=== PATIENT | female | born 1950 | race Caucasian/White ===

== ENCOUNTER 2017-08-17 14:00 | Outpatient (RCR) | payer MEDICARE, SELFPAY ==
[2017-08-10 13:46] LABS: Absolute Lymphocyte Count 1.82 X10^3/ul (0.83-4.51); Absolute Neutrophil Count 4.8 X10^3/uL (2.0-7.7); Basophil# 0.04 X10^3/uL; Basophil% 0.5 % (0-1); Eosinophil# 0.07 X10^3/uL; Eosinophils% 0.9 % (0-5); Hematocrit 41.3 % (37-47); Hemoglobin 13.3 g/dl (12.0-15.0); Lymphocyte # 1.82 X10^3/ul (4.0); Lymphocyte % 24.5 % (19-41); Mean Corp Hgb Conc 32.2 g/gl (32-36); Mean Corpuscular Hgb 29.4 pg (27.0-32.0); Mean Corpuscular Volume 91.4 fL (81-99); Mean Platelet Vol. 10.1 fl (6.2-12.0); Monocyte# 0.67 X10^3/uL; Neutrophil % 64.8 % (47-70); Platelet Count 227 K/mm3 (150-450); RBC Distribution Width CV 14.8 % (11.6-14.6); RBC Distribution Width SD 48.3 fl (35.1-43.9); Red Blood Count 4.52 M/mm3 (4.2-5.4); White Blood Count 7.4 K/mm3 (4.4-11.0)
[2017-08-10 13:47] LABS: POSITIVE COUNT NO; POSITIVE DIFFERENTIAL NO; POSITIVE MORPHOLOGY NO
[2017-08-10 13:50] LABS: ALB/GLOB Ratio 0.9 RATIO (0.9-2.4); AST(SGOT) 10 U/L (15-37); Alanine Aminotransfer ALT/SGPT 22 U/L (13-56); Albumin, Serum 3.6 g/dL (3.2-5.0); Alkaline Phosphatase 80 U/L (45-117); Anion Gap 10 (5-15); BUN 12 mg/dL (7-18); BUN/Creat Ratio 17.1 RATIO (10-20); Calcium,Total 9.1 mg/dL (8.5-10.1); Chloride 105 mmol/L (98-107); EST Glomerular Filtration Rate 88 mL/min (>60); Est Glom Filt Rate - Afr Amer 107 mL/min (>60); Globulin 3.8 g/dL (2.2-4.2); Glucose 96 mg/dL (74-106); Potassium 3.8 mmol/L (3.5-5.1); Protein, Total 7.4 g/dL (6.4-8.2); Sodium Level 140 mmol/L (136-145)
[2017-08-10 20:43] LABS: Xtra Tube EP Lab EXTRA TUBE
[2017-08-11 16:09] LABS: Albumin 3.6 g/dL (2.9-4.4); Alpha-1-Globulins 0.3 g/dL (0.0-0.4); Alpha-2-Globulins 0.8 g/dL (0.4-1.0); Free Kappa Light Chains 12.1 mg/L (3.3-19.4); Free Lambda Light Chains 17.6 mg/L (5.7-26.3); Immunoglobulin A 86 mg/dL (87-352); Immunoglobulin G 540 mg/dL (700-1600); Immunoglobulin M 632 mg/dL (26-217); PROEL- TOTAL PROTEIN 6.7 g/dL (6.0-8.5)
[2017-08-12 08:03] LABS: Beta-2-Microglobulin, S 1.9 mg/L (0.6-2.4)
[2017-08-17 13:49] VITALS: BP 115/72; PULSE 83; RESP 16; TEMP 36.3; O2SAT 96; BMI 36.2
--- NOTE | 2017-08-17 14:14 | ONC.PN.ESTAB ---
Subjective - Date of Service Date of Service:: 08/17/17 - Chief Complaint F/u for gammopathy. - History of Present Illness 67y.o.woman was found to have polyclonal gammopathy with increased IgM, she is on observation. Comes in for follow up. She had arthritis, otherwise feeling well. - Past Medical/Social History Social History Smoking Status Never smoker Review of Systems Constitutional:: Denies: Fever, Sweats, Weight loss, Appetite change, Chills Cardiovascular:: Denies: Chest pain, Palpitations, Dyspnea on exertion, Orthopnea, PND, Shortness of breath Respiratory: Denies: Cough, Hemoptysis, Shortness of Breath, Wheezing Gastrointestinal:: Denies: Abdominal pain, Nausea, Vomiting, Diarrhea, Constipation, Hematochezia Genitourinary: Denies: Dysuria, Hematuria, 15, Flank pain Musculoskeletal:: Reports: Arthritis - hands and knees. Skin: Denies: Rash, Skin Changes, Wounds Neurological:: Denies: Headache, Dizziness, Visual changes, Tinnitus, Hearing loss Vital Signs Height 5 ft 2 in Weight: 89.811 kg Weight in Pounds 198.0 lbs Pulse Ox 96 Temperature 97.4 F Pulse Rate 83 Respiratory Rate 16 Blood Pressure 115/72 Blood Pressure Position Sitting - Physical Exam General: Alert, Oriented x3, No apparent distress Laboratory Data: Laboratory Tests 08/10/17 08/10/17 08/10/17 12:32 12:32 12:32 WBC 7.4 Hgb 13.3 Plt Count 227 Creatinine 0.70 Calcium 9.1 IgG 540 L IgM 632 H [place]/Lambda Ratio 0.69 Assessment and Plan Macroglobulinemia, IgM 632, asymptomatic. She does not want a bone marrow biopsy done at this time. Plan is to continue observation. She will like to follow with PCP and be referred if needed. RTC prn. Medications: Prescriptions This Visit Medication Instructions Recorded Nitrofurantoin Macrocrystal 50 mg PO 08/17/17 [Nitrofurantoin] Primary Care Provider: Mikael Ramires DO Referring Provider: - Problem List (1) Macroglobulinemia Status: Chronic
== END 2017-08-29 15:44 | disposition home or self-care (01) ==
LOC: OMD 14:00
PROVIDERS: Nurse Practitioner Family; Family Provider Family Medicine; PCP Family Medicine; Visit Provider Internal Medicine Medical Oncology
DX: D89.0 Polyclonal hypergammaglobulinemia (principal)
CPT/HCPCS: 36415; 80053; 82232; 82784; 83883; 84165; 85025; 86334

== ENCOUNTER → 2017-08-25 10:36 | Outpatient (CLI) | payer MEDICARE, SELFPAY | PROVIDERS: Family Provider Family Medicine; PCP Family Medicine; Visit Provider Family Medicine | DX: C88.0 Waldenstrom macroglobulinemia (principal); D89.0 Polyclonal hypergammaglobulinemia ==

== ENCOUNTER → 2018-02-07 15:12 | Outpatient (CLI) | payer MEDICARE, SELFPAY ==
[2018-02-07 17:43] LABS: Absolute Neutrophil Count 5.2 X10^3/uL (2.0-7.7); Basophil# 0.03 X10^3/uL; Basophil% 0.4 % (0-1); Eosinophil# 0.12 X10^3/uL; Eosinophils% 1.5 % (0-5); Hemoglobin 12.7 g/dl (12.0-15.0); Lymphocyte % 24.1 % (19-41); Mean Corp Hgb Conc 31.8 g/gl (32-36); Mean Corpuscular Hgb 28.1 pg (27.0-32.0); Mean Corpuscular Volume 88.5 fL (81-99); Mean Platelet Vol. 10.3 fl (6.2-12.0); Monocyte# 0.62 X10^3/uL; Monocyte% 7.9 % (0-10); Neutrophil # 5.19 X10^3/uL (2.7-7.7); Neutrophil % 65.8 % (47-70); Platelet Count 193 K/mm3 (150-450); RBC Distribution Width CV 14.7 % (11.6-14.6); RBC Distribution Width SD 47.6 fl (35.1-43.9); Red Blood Count 4.52 M/mm3 (4.2-5.4); White Blood Count 7.9 K/mm3 (4.4-11.0)
[2018-02-07 17:46] LABS: POSITIVE COUNT NO; POSITIVE DIFFERENTIAL NO; POSITIVE MORPHOLOGY NO
[2018-02-07 17:50] LABS: Cholesterol 213 mg/dL (200); High Density Lipoprotein 49 mg/dL; Triglycerides 166 mg/dL; Very Low Density Lipoprotein 33 mg/dL (5-40)
[2018-02-09 16:11] LABS: PROEL- A/G Ratio 1.1 (0.7-1.7); PROEL- Albumin 3.4 g/dL (2.9-4.4); PROEL- Alpha-1 Globulin 0.3 g/dL (0.0-0.4); PROEL- Alpha-2 Globulin 0.8 g/dL (0.4-1.0); PROEL- TOTAL PROTEIN 6.4 g/dL (6.0-8.5)
[2018-02-10 11:17] LABS: Beta-2-Microglobulin, S 1.7 mg/L (0.6-2.4)
== END ==
PROVIDERS: Family Provider Family Medicine; PCP Family Medicine; Visit Provider Family Medicine
DX: C88.0 Waldenstrom macroglobulinemia (principal); D89.0 Polyclonal hypergammaglobulinemia; E78.5 Hyperlipidemia, unspecified
CPT/HCPCS: 36415; 80061; 82232; 84165; 85025

== ENCOUNTER 2018-06-20 17:28 | Inpatient (IN) | payer MEDICARE, SELFPAY ==
[2018-06-20] VITALS (14 sets, daily range): BP systolic 106–156; BP diastolic 50–90; PULSE 78–89; RESP 14–23; TEMP 36.8; O2SAT 95–100; BMI 38.5; BMI 37.5; BMI 37.6
--- NOTE | 2018-06-20 17:38 | EKG12_ITS ---
Test Reason : CP Blood Pressure : / mmHG Vent. Rate : 075 BPM Atrial Rate : 075 BPM P-R Int : 148 ms QRS Dur : 076 ms QT Int : 372 ms P-R-T Axes : 037 010 005 degrees QTc Int : 415 ms Normal sinus rhythm Low voltage QRS ST elevation consider anterior injury or acute infarct ACUTE IA / STEMI Abnormal ECG Confirmed by BRIELLE KAY, BRANDON ([id number]), avid editor TRIXIE LAMBERT ([id number]) on 06/23/2018 3:17:24 PM Referred By: Andrew Warner Confirmed By:BRANDON HANNAH MD
[2018-06-20] MEDS: Aspirin 81 MG TAB.CHEW 324 MG PO (17:39)
[2018-06-20] MEDS: TICAGRELOR 90 MG TABLET 180 MG PO (17:43)
--- NOTE | 2018-06-20 17:44 | RAD_ITS ---
STUDY: X-RAY CHEST REASON FOR EXAM: Female, 67 years old. Chest pain TECHNIQUE: Single frontal view of the chest. COMPARISON: December 31, 2016 FINDINGS: There is an indeterminate right basilar nodular opacity present. There are stable prominent interstitial markings. Normal size heart. Normal mediastinum and estelita. Normal visualized pulmonary arteries. There is atherosclerotic calcification of the aortic arch with tortuosity. Normal visualized thoracic spine. Normal visualized ribs, clavicles, and shoulders. There is no demonstrated abnormality of the visualized soft tissue structures of the upper abdomen. RAD/Chest 1 View (Portable) IMPRESSION: Indeterminate right basilar nodular opacity that is likely secondary to confluence of shadows, consider PA and lateral for further evaluation. Electronically Signed: Stephanie Hickey MD at 18:24 EST Tel , Service support ,
[2018-06-20] MEDS: Nitroglycerin Infusion 250 ML 3 MG IV (17:47)
--- NOTE | 2018-06-20 17:47 | ED.VISSUMM ---
- ER Visit Summary Date of Service: 06/20/18 Chief Complaint: Midsternal chest pain History of Present Illness: The patient is a 67 F history of asthma, arthritis, hypothyroidism and agammaglobulinemia. Patient coming by her . States around 1:30 PM the day she started having midsternal chest pain radiating her right arm. It waxed and waned in intensity. She became diaphoretic with it. She denies any significant shortness of breath. No hemoptysis. No cough. She denies any vomiting diarrhea or fever. She initially thought it was reflux but it has gotten worse and she said she is never had pain this intense with reflux before that is when she decided to come in. She denies any recent travel or surgery. No calf pain or swelling. No hemoptysis. Physical Examination: 67-year-old female. Lying in bed. Initial blood pressure 156/90. Pulse ox 99% on room air no hypoxia. HEENT exam unremarkable atraumatic. Pupils are round reactive light. No facial droop. Normal speech. Neck nontender. No JVD. No lymphadenopathy. Lungs clear to auscultation bilaterally. Heart regular rate and rhythm no murmur. Rate about 80. Chest wall is nontender. Abdomen soft and nontender. Normal bowel sounds no peritoneal signs. No pulsatile mass. Patient is moving all 4 extremities. Equal symmetrical 5 out of 5 town clerk strength. Equal symmetrical and brisk radial pulses. Calves are nontender without edema or cords. Back is nontender. Neurologically she is awake alert with no focal motor deficits. Test Results: EKG done while was present in the room. Showed a sinus rhythm rate of 75. Anterior ST elevation in leads V1, V2, V3 and upsloping in V4 5 and 6. Consistent with an anterior myocardial infarction. There are inverted T waves in lead III. Soon as I saw the EKG immediately after was done we called a STEMI team. Emergency Department Course and Treatment: I have already spoken to Dr. Destin Warner on-call for interventional cardiology. Patient has already been given aspirin. We have ordered p.o. Brilinta, nitroglycerin drip and a heparin bolus and drip. He is on his way to the hospital to take the patient for an emergent cardiac catheterization. I have already discussed this with the patient and her . Treatment Plan: Acute IN going to the Senior Database Engineer for acute cardiac catheterization and intervention if necessary. Disposition: Admission Impression: Acute anterior IN History of agammaglobulinemia Critical care time 30 minutes This note was generated with [employer] dictation software. It may contain incorrect words, spelling, and punctuation that were not noted in review of the chart prior to signing ED Disposition - Plan for ED Patient: Chief Complaint: Chest Pain Referrals: Mikael Ramires DO [Primary Care Provider] -
[2018-06-20] MEDS: Heparin Injection (Vial) 5,000 UNIT/ML VIAL 4000 UNIT IV (17:52)
[2018-06-20 17:53] LABS: Absolute Lymphocyte Count 2.64 X10^3/ul (0.83-4.51); Absolute Neutrophil Count 8.7 X10^3/uL (2.0-7.7); Basophil# 0.04 X10^3/uL; Basophil% 0.3 % (0-1); Eosinophil# 0.18 X10^3/uL; Eosinophils% 1.5 % (0-5); Hemoglobin 13.4 g/dl (12.0-15.0); Lymphocyte # 2.64 X10^3/ul (4.0); Lymphocyte % 21.3 % (19-41); Mean Corp Hgb Conc 31.9 g/gl (32-36); Mean Corpuscular Volume 87.7 fL (81-99); Mean Platelet Vol. 9.8 fl (6.2-12.0); Monocyte# 0.82 X10^3/uL; Monocyte% 6.6 % (0-10); Neutrophil # 8.67 X10^3/uL (2.7-7.7); Platelet Count 253 K/mm3 (150-450); RBC Distribution Width CV 14.1 % (11.6-14.6); Red Blood Count 4.79 M/mm3 (4.2-5.4); White Blood Count 12.4 K/mm3 (4.4-11.0)
--- NOTE | 2018-06-20 17:53 | ED.DCSUM_ITS ---
- ER Visit Summary Date of Service: 06/20/18 Chief Complaint: Midsternal chest pain History of Present Illness: The patient is a 67 F history of asthma, arthritis, hypothyroidism and agammaglobulinemia. Patient coming by her . States around 1:30 PM the day she started having midsternal chest pain radiating her right arm. It waxed and waned in intensity. She became diaphoretic with it. She denies any significant shortness of breath. No hemoptysis. No cough. She denies any vomiting diarrhea or fever. She initially thought it was reflux but it has gotten worse and she said she is never had pain this intense with reflux before that is when she decided to come in. She denies any recent travel or surgery. No calf pain or swelling. No hemoptysis. Physical Examination: 67-year-old female. Lying in bed. Initial blood pressure 156/90. Pulse ox 99% on room air no hypoxia. HEENT exam unremarkable atraumatic. Pupils are round reactive light. No facial droop. Normal speech. Neck nontender. No JVD. No lymphadenopathy. Lungs clear to auscultation bilaterally. Heart regular rate and rhythm no murmur. Rate about 80. Chest wall is nontender. Abdomen soft and nontender. Normal bowel sounds no peritoneal signs. No pulsatile mass. Patient is moving all 4 extremities. Equal symmetrical 5 out of 5 soap press feeder strength. Equal symmetrical and brisk radial pulses. Calves are nontender without edema or cords. Back is nontender. Neurologically she is awake alert with no focal motor deficits. Test Results: EKG done while was present in the room. Showed a sinus rhythm rate of 75. Anterior ST elevation in leads V1, V2, V3 and upsloping in V4 5 and 6. Consistent with an anterior myocardial infarction. There are inverted T waves in lead III. Soon as I saw the EKG immediately after was done we called a STEMI team. Emergency Department Course and Treatment: I have already spoken to Dr. Destin Warner on-call for interventional cardiology. Patient has already been given aspirin. We have ordered p.o. Brilinta, nitroglycerin drip and a heparin bolus and drip. He is on his way to the hospital to take the patient for an emergent cardiac catheterization. I have already discussed this with the patient and her . Treatment Plan: Acute PR going to the Commonwealth Attorney for acute cardiac catheterization and intervention if necessary. Disposition: Admission Impression: Acute anterior PR History of agammaglobulinemia Critical care time 30 minutes This note was generated with [employer] dictation software. It may contain incorrect words, spelling, and punctuation that were not noted in review of the chart prior to signing ED Disposition - Plan for ED Patient: Chief Complaint: Chest Pain Referrals: Mikael Ramires DO [Primary Care Provider] -
[2018-06-20 17:56] LABS: POSITIVE COUNT NO; POSITIVE DIFFERENTIAL NO; POSITIVE MORPHOLOGY NO
[2018-06-20 18:07] LABS: Anion Gap 9 (5-15); BUN 12 mg/dL (7-18); BUN/Creat Ratio 16.6 RATIO (10-20); Calcium,Total 8.9 mg/dL (8.5-10.1); Chloride 104 mmol/L (98-107); Creatinine, Serum 0.72 mg/dL (0.55-1.02); EST Glomerular Filtration Rate 85 mL/min (>60); Est Glom Filt Rate - Afr Amer 103 mL/min (>60); Estimated Creatinine Clearance 41.19 ml/min; Glucose 106 mg/dL (74-106); Sodium Level 139 mmol/L (136-145)
--- NOTE | 2018-06-20 18:15 | PCM.HP.STD ---
Problem List (1) Acute ST elevation myocardial infarction Status: Acute (2) Waldenstrom's macroglobulinemia Status: Chronic (3) GERD (gastroesophageal reflux disease) Status: Chronic (4) Hypothyroidism Status: Chronic (5) M?ni?re's disease Status: Chronic History of Present Illness Date of Admission: 06/20/18 Chief Complaint: Chest pain. The patient is a 67 year old F with past medical history as mentioned above presented to the emergency room because of chest pain. This afternoon around 1:30 PM, patient was sitting on her chair after she came back from dining at a restaurant, started having sudden onset retrosternal chest pain, pressure-like pain, 10 out of 10 in severity, not radiating, associated with mild dizziness and without aggravating or relieving factors. Her drove her to the emergency department. She denied associated shortness of breath, palpitation, syncope or presyncope. At this time, she is chest pain-free. In the emergency department, EKG was done and revealed ST elevation in leads V1, V2 and V3 consistent with acute anterior ST elevation NJ. Her blood pressure was slightly elevated, other vital signs are stable. Her routine blood work was remarkable for mild leukocytosis, otherwise normal. Her EKG revealed ST elevation in leads V1, V2 and V3. Chest x-ray showed no acute findings. She was given full dose of aspirin, received loading dose of IV heparin, started on IV nitroglycerin drip and she received 1 dose of Brilinta. 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 She is being admitted for acute anterior ST elevation NJ status post cardiac catheterization with PTCA/ALLIE to mid LAD and proximal diagonal branch. Past Medical History Past Medical History (Chronic Problems): Chronic Problems (Last Reviewed 03/30/18 @ 15:08 by Roxanna Torres) Waldenstrom's macroglobulinemia (Chronic) GERD (gastroesophageal reflux disease) (Chronic) Hypothyroidism (Chronic) M?ni?re's disease (Chronic) Medical History: Medical History (Last Reviewed 03/30/18 @ 15:08 by Roxanna Torres) Arthritis M19.90 Asthma J45.909 GERD (gastroesophageal reflux disease) K21.9 Hypothyroid E03.9 IBS (irritable bowel syndrome) K58.9 Incontinence R32 Knee pain M25.569 Meniere disease H81.09 Osteopenia M85.80 PVC's (premature ventricular contractions) I49.3 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 Retinal tear of left eye H33.312 SOB (shortness of breath) R06.02 Thyroid disease E07.9 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 Vitamin D deficiency E55.9 Allergies clarithromycin [From Biaxin] Allergy (Verified 06/20/18 17:29) Rash sulfamethoxazole [From Bactrim] Allergy (Verified 06/20/18 17:29) Rash trimethoprim [From Bactrim] Allergy (Verified 06/20/18 17:29) Rash codeine Adverse Reaction (Verified 06/20/18 17:29) Upset Stomach Penicillins Adverse Reaction (Verified 06/20/18 17:29) Other Home Medications: Ambulatory Orders Medication Instructions Recorded Hydrochlorothiazide [Hctz] 12.5 mg PO DAILY 12/31/16 Levothyroxine [Synthroid] 50 mcg PO DAILY 12/31/16 Metronidazole 0.75% [Metrogel] 70 applic TOPICAL DAILY 12/31/16 Omeprazole 40 mg PO DAILY 12/31/16 Potassium Chloride [Klor-Con M20] 20 meq PO DAILY 12/31/16 Propranolol HCl 60 mg PO DAILY 12/31/16 Surgical History: Surgical History (Last Reviewed 03/30/18 @ 15:08 by Roxanna Torres) History of dilatation and curettage Z98.890 Hx of breast biopsy Z98.890 Hx of tonsillectomy Z98.890, Z90.89 Surgical History: tonsillectomy, - - section. 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 Lives: Spouse/ Significant Other Smoking Status: Never smoker Alcohol: None Drugs: None - *Family History Maternal Family History: Family History (Last Reviewed 03/30/18 @ 15:08 by Roxanna Torres) Mother Cancer Lung cancer Hypertension Anemia Father Cancer History Items: No pertinent history Paternal Family History: Family History (Last Reviewed 03/30/18 @ 15:08 by Roxanna Torres) Mother Cancer Lung cancer Hypertension Anemia Father Cancer History Items: No pertinent history Review of Systems Constitutional: Denies: Anorexia, Chills, Fever, Weakness Eyes: Denies: Blurred vision, Double vision, Drainage, Redness HEENT: Denies: Difficulty Hearing, Ear Pain, Eye Pain, Nasal Congestion, Sore Throat Cardiovascular: Reports: Chest Pain, Chest Tightness, Light Headedness. Denies: Chest Pressure, Heaviness, Orthopnea, Paroxysmal Noc. Dyspnea, Syncope Respiratory: Denies: Cough, Pleuritic Pain, Shortness of Breath, Sputum production, Wheezing Gastrointestinal: Denies: Abdominal Pain, Constipation, Diarrhea, Nausea, Vomiting Genitourinary: Denies: Dysuria, Frequency, Hematuria Musculoskeletal: Denies: Arm Pain, Back Pain, Foot Pain Skin: Denies: Dryness, Rash Neurological: Denies: Balance problems, Double vision, Change in Speech, Slurred speech, Confusion, Headaches, Incoordination, Numbness Psychiatric: Denies: Anxiety, Depression VTE Information - Inpt Only VTE Present on Admission: No VTE Mechan Device Prophylaxis: None VTE Pharm Prophylaxis ordered?: No Patient Problems: Active and Suspected Problems (Last Reviewed 03/30/18 @ 15:08 by Roxanna Torres) Acute ST elevation myocardial infarction (Acute) - Physical Exam General: Alert, Oriented x3, Cooperative, No apparent distress HEENT: Atraumatic, PERRLA, EOMI, Normocephalic Oral: Moist Mucosa, No Gingival or Mucosal Lesions/ Ulcerations Neck: Supple, No JVD, Negative Carotid Bruits, Trachea Midline, Thyroid Normal Size and Texture Lungs: Clear to auscultation, Normal air movement, No rhonchi, No wheeze, No rales Cardiovascular: Regular rate, Regular Rhythm, Normal S1, Normal S2, No murmurs, PMI Normal Abdomen: Bowel Sounds Present, Soft, Non Tender, Non-Distended, No Hepato-splenomegaly Extremities: No clubbing, No cyanosis, No edema Skin: No rashes, No breakdown Lymphatic: No Cervical, Supraclavicular, or Inguinal Adenopathy Neurological: Cranial nerves II-XII grossly intact, Motor Exam 5/5 strength throughout Psych/Mental Status: Normal Affect, Appropriate, Alert and oriented to time, place, person, mood and affect Vital Signs Temp Pulse Resp BP Pulse Ox 98.3 F 87 23 H 156/90 H 100 06/20/18 17:30 06/20/18 17:47 06/20/18 17:30 06/20/18 17:47 06/20/18 17:45 Oxygen Flow Rate (L/min) 2 Oxygen Delivery Method Nasal Cannula Weight: 203 lb 14.841 oz Body Mass Index (BMI) 38.5 Laboratory Tests Past 24 Hrs 06/20/18 06/20/18 06/20/18 17:33 17:33 17:33 WBC 12.4 H RBC 4.79 Hgb 13.4 Hct 42.0 MCV 87.7 MCH 28.0 MCHC 31.9 L RDW 14.1 RDW Differential 45.0 H Plt Count 253 MPV 9.8 Immature Gran % (Auto) 0.300 Neut % (Auto) 70.0 Lymph % (Auto) 21.3 Lam[place] % (Auto) 6.6 Eos % (Auto) 1.5 Baso % (Auto) 0.3 Absolute Neuts (auto) 8.7 H Absolute Lymphs (auto) 2.64 Total Counted Not Reportable PT Cancelled INR Cancelled APTT Cancelled Sodium 139 Potassium 4.0 Chloride 104 Carbon Dioxide 26.0 Anion Gap 9 BUN 12 Creatinine 0.72 Estim Creat Clear Calc 41.19 Est GFR (MDRD) Af Amer 103 Est GFR (MDRD) Non-Af 85 BUN/Creatinine Ratio 16.6 Glucose 106 Calcium 8.9 Troponin I 0.042 06/20/18 17:55 WBC RBC Hgb Hct MCV MCH MCHC RDW RDW Differential Plt Count MPV Immature Gran % (Auto) Neut % (Auto) Lymph % (Auto) Lam[place] % (Auto) Eos % (Auto) Baso % (Auto) Absolute Neuts (auto) Absolute Lymphs (auto) Total Counted PT Pending INR Pending APTT Pending Sodium Potassium Chloride Carbon Dioxide Anion Gap BUN Creatinine Estim Creat Clear Calc Est GFR (MDRD) Af Amer Est GFR (MDRD) Non-Af BUN/Creatinine Ratio Glucose Calcium Troponin I Assessment/Plan All Active Problems (Last Reviewed 03/30/18 @ 15:08 by Roxanna Torres) Acute ST elevation myocardial infarction (Acute) This is a 67 years old female patient presented to the emergency room because of chest pain and she was found to have acute anterior ST elevation NJ, underwent cardiac catheterization #[address] elevation NJ: Status post cardiac catheterization, 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 EKG reviewed, revealed ST elevation in leads V1, V2 and V3. Troponin is negative. Patient received loading dose of heparin IV, Brilinta and started on IV nitroglycerin drip. At this time, she is chest pain-free. Chest x-ray showed no acute findings. Plan: Admit to ICU, critical care monitoring, complete bedrest, serial cardiac enzymes, repeat EKG tomorrow morning, start baby aspirin, Coreg twice daily, Brilinta, Lipitor nightly, fasting lipid profile, repeat CBC and CMP tomorrow morning, cardiology consult, PT OT evaluation and treatment when appropriate. #2 M?ni?re's disease: Stable, no symptoms, continue HCTZ. #3 hypothyroidism: Continue digoxin, will check TSH. #4 GERD: Continue PPI. #5 bronchial asthma: Clinically stable, pulse ox is maintained on room air. Plan for albuterol as needed, oxygen to maintain pulse ox above 92%. #6 DVT prophylaxis: SCDs. This note was generated with [employer] dictation software. It may contain incorrect words, spelling, and punctuation that were not noted in checking the note before signing. Code Visit Inpatient E&M: 62502 Init Hosp L3
[2018-06-20 18:20] LABS: International Normalized Ratio 1.1
--- NOTE | 2018-06-20 18:20 | HP.PCM_ITS ---
Problem List (1) Acute ST elevation myocardial infarction Status: Acute (2) Waldenstrom's macroglobulinemia Status: Chronic (3) GERD (gastroesophageal reflux disease) Status: Chronic (4) Hypothyroidism Status: Chronic (5) M?ni?re's disease Status: Chronic History of Present Illness Date of Admission: 06/20/18 Chief Complaint: Chest pain. The patient is a 67 year old F with past medical history as mentioned above presented to the emergency room because of chest pain. This afternoon around 1:30 PM, patient was sitting on her chair after she came back from dining at a restaurant, started having sudden onset retrosternal chest pain, pressure-like pain, 10 out of 10 in severity, not radiating, associated with mild dizziness and without aggravating or relieving factors. Her drove her to the emergency department. She denied associated shortness of breath, palpitation, syncope or presyncope. At this time, she is chest pain-free. In the emergency department, EKG was done and revealed ST elevation in leads V1, V2 and V3 consistent with acute anterior ST elevation OR. Her blood pressure was slightly elevated, other vital signs are stable. Her routine blood work was remarkable for mild leukocytosis, otherwise normal. Her EKG revealed ST elevation in leads V1, V2 and V3. Chest x-ray showed no acute findings. She was given full dose of aspirin, received loading dose of IV heparin, started on IV nitroglycerin drip and she received 1 dose of Brilinta. 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 She is being admitted for acute anterior ST elevation OR status post cardiac catheterization with PTCA/ALLIE to mid LAD and proximal diagonal branch. Past Medical History Past Medical History (Chronic Problems): Chronic Problems (Last Reviewed 03/30/18 @ 15:08 by Roxanna Torres) Waldenstrom's macroglobulinemia (Chronic) GERD (gastroesophageal reflux disease) (Chronic) Hypothyroidism (Chronic) M?ni?re's disease (Chronic) Medical History: Medical History (Last Reviewed 03/30/18 @ 15:08 by Roxanna Torres) Arthritis M19.90 Asthma J45.909 GERD (gastroesophageal reflux disease) K21.9 Hypothyroid E03.9 IBS (irritable bowel syndrome) K58.9 Incontinence R32 Knee pain M25.569 Meniere disease H81.09 Osteopenia M85.80 PVC's (premature ventricular contractions) I49.3 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 Retinal tear of left eye H33.312 SOB (shortness of breath) R06.02 Thyroid disease E07.9 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 Vitamin D deficiency E55.9 Allergies clarithromycin [From Biaxin] Allergy (Verified 06/20/18 17:29) Rash sulfamethoxazole [From Bactrim] Allergy (Verified 06/20/18 17:29) Rash trimethoprim [From Bactrim] Allergy (Verified 06/20/18 17:29) Rash codeine Adverse Reaction (Verified 06/20/18 17:29) Upset Stomach Penicillins Adverse Reaction (Verified 06/20/18 17:29) Other Home Medications: Ambulatory Orders Medication Instructions Recorded Hydrochlorothiazide [Hctz] 12.5 mg PO DAILY 12/31/16 Levothyroxine [Synthroid] 50 mcg PO DAILY 12/31/16 Metronidazole 0.75% [Metrogel] 70 applic TOPICAL DAILY 12/31/16 Omeprazole 40 mg PO DAILY 12/31/16 Potassium Chloride [Klor-Con M20] 20 meq PO DAILY 12/31/16 Propranolol HCl 60 mg PO DAILY 12/31/16 Surgical History: Surgical History (Last Reviewed 03/30/18 @ 15:08 by Roxanna Torres) History of dilatation and curettage Z98.890 Hx of breast biopsy Z98.890 Hx of tonsillectomy Z98.890, Z90.89 Surgical History: tonsillectomy, - - section. 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: No pertinent RUBBER TUBING SPLICER history Lives: Spouse/ Significant Other Smoking Status: Never smoker Alcohol: None Drugs: None - *Family History Maternal Family History: Family History (Last Reviewed 03/30/18 @ 15:08 by Roxanna Torres) Mother Cancer Lung cancer Hypertension Anemia Father Cancer History Items: No pertinent history Paternal Family History: Family History (Last Reviewed 03/30/18 @ 15:08 by Roxanna Torres) Mother Cancer Lung cancer Hypertension Anemia Father Cancer History Items: No pertinent history Review of Systems Constitutional: Denies: Anorexia, Chills, Fever, Weakness Eyes: Denies: Blurred vision, Double vision, Drainage, Redness HEENT: Denies: Difficulty Hearing, Ear Pain, Eye Pain, Nasal Congestion, Sore Throat Cardiovascular: Reports: Chest Pain, Chest Tightness, Light Headedness. Denies: Chest Pressure, Heaviness, Orthopnea, Paroxysmal Noc. Dyspnea, Syncope Respiratory: Denies: Cough, Pleuritic Pain, Shortness of Breath, Sputum production, Wheezing Gastrointestinal: Denies: Abdominal Pain, Constipation, Diarrhea, Nausea, Vomiting Genitourinary: Denies: Dysuria, Frequency, Hematuria Musculoskeletal: Denies: Arm Pain, Back Pain, Foot Pain Skin: Denies: Dryness, Rash Neurological: Denies: Balance problems, Double vision, Change in Speech, Slurred speech, Confusion, Headaches, Incoordination, Numbness Psychiatric: Denies: Anxiety, Depression VTE Information - Inpt Only VTE Present on Admission: No VTE Mechan Device Prophylaxis: None VTE Pharm Prophylaxis ordered?: No Patient Problems: Active and Suspected Problems (Last Reviewed 03/30/18 @ 15:08 by Roxanna Torres) Acute ST elevation myocardial infarction (Acute) - Physical Exam General: Alert, Oriented x3, Cooperative, No apparent distress HEENT: Atraumatic, PERRLA, EOMI, Normocephalic Oral: Moist Mucosa, No Gingival or Mucosal Lesions/ Ulcerations Neck: Supple, No JVD, Negative Carotid Bruits, Trachea Midline, Thyroid Normal Size and Texture Lungs: Clear to auscultation, Normal air movement, No rhonchi, No wheeze, No rales Cardiovascular: Regular rate, Regular Rhythm, Normal S1, Normal S2, No murmurs, PMI Normal Abdomen: Bowel Sounds Present, Soft, Non Tender, Non-Distended, No Hepato- splenomegaly Extremities: No clubbing, No cyanosis, No edema Skin: No rashes, No breakdown Lymphatic: No Cervical, Supraclavicular, or Inguinal Adenopathy Neurological: Cranial nerves II-XII grossly intact, Motor Exam 5/5 strength throughout Psych/Mental Status: Normal Affect, Appropriate, Alert and oriented to time, place, person, mood and affect Vital Signs Temp Pulse Resp BP Pulse Ox 98.3 F 87 23 H 156/90 H 100 06/20/18 17:30 06/20/18 17:47 06/20/18 17:30 06/20/18 17:47 06/20/18 17:45 Oxygen Flow Rate (L/min) 2 Oxygen Delivery Method Nasal Cannula Weight: 203 lb 14.841 oz Body Mass Index (BMI) 38.5 Laboratory Tests Past 24 Hrs 06/20/18 06/20/18 06/20/18 17:33 17:33 17:33 WBC 12.4 H RBC 4.79 Hgb 13.4 Hct 42.0 MCV 87.7 MCH 28.0 MCHC 31.9 L RDW 14.1 RDW Differential 45.0 H Plt Count 253 MPV 9.8 Immature Gran % (Auto) 0.300 Neut % (Auto) 70.0 Lymph % (Auto) 21.3 [place] % (Auto) 6.6 Eos % (Auto) 1.5 Baso % (Auto) 0.3 Absolute Neuts (auto) 8.7 H Absolute Lymphs (auto) 2.64 Total Counted Not Reportable PT Cancelled INR Cancelled APTT Cancelled Sodium 139 Potassium 4.0 Chloride 104 Carbon Dioxide 26.0 Anion Gap 9 BUN 12 Creatinine 0.72 Estim Creat Clear Calc 41.19 Est GFR (MDRD) Af Amer 103 Est GFR (MDRD) Non-Af 85 BUN/Creatinine Ratio 16.6 Glucose 106 Calcium 8.9 Troponin I 0.042 06/20/18 17:55 WBC RBC Hgb Hct MCV MCH MCHC RDW RDW Differential Plt Count MPV Immature Gran % (Auto) Neut % (Auto) Lymph % (Auto) [place] % (Auto) Eos % (Auto) Baso % (Auto) Absolute Neuts (auto) Absolute Lymphs (auto) Total Counted PT Pending INR Pending APTT Pending Sodium Potassium Chloride Carbon Dioxide Anion Gap BUN Creatinine Estim Creat Clear Calc Est GFR (MDRD) Af Amer Est GFR (MDRD) Non-Af BUN/Creatinine Ratio Glucose Calcium Troponin I Assessment/Plan All Active Problems (Last Reviewed 03/30/18 @ 15:08 by Roxanna Torres) Acute ST elevation myocardial infarction (Acute) This is a 67 years old female patient presented to the emergency room because of chest pain and she was found to have acute anterior ST elevation OR, underwent cardiac catheterization #[address] elevation OR: Status post cardiac catheterization, 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 EKG reviewed, revealed ST elevation in leads V1, V2 and V3. Troponin is negative. Patient received loading dose of heparin IV, Brilinta and started on IV nitroglycerin drip. At this time, she is chest pain-free. Chest x-ray showed no acute findings. Plan: Admit to ICU, critical care monitoring, complete bedrest, serial cardiac enzymes, repeat EKG tomorrow morning, start baby aspirin, Coreg twice daily, Brilinta, Lipitor nightly, fasting lipid profile, repeat CBC and CMP tomorrow morning, cardiology consult, PT OT evaluation and treatment when appropriate. #2 M?ni?re's disease: Stable, no symptoms, continue HCTZ. #3 hypothyroidism: Continue digoxin, will check TSH. #4 GERD: Continue PPI. #5 bronchial asthma: Clinically stable, pulse ox is maintained on room air. Plan for albuterol as needed, oxygen to maintain pulse ox above 92%. #6 DVT prophylaxis: SCDs. This note was generated with [employer] dictation software. It may contain incorrect words, spelling, and punctuation that were not noted in checking the note before signing. Code Visit Inpatient E&M: 63001 Init Hosp L3
[2018-06-20 18:29] LABS: Partial Thromboplast Time 187.9 Seconds (24.1-36.2)
--- NOTE | 2018-06-20 19:26 | CL.I_ITS ---
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 Indications: ACS <= 24 hrs, New Onset Angina <= 2 months, Suspected CAD Heart Failure: None Stress/Imaging Stress/Image Study Performed: No Angina Classification Anginal Classification w/in 2 Weeks: CCS IV CAD Presentations: Unstable angina. STEMI. Symptom onset Date/Time: 06/20/2018 18:15:00 Time Est imated Comorbidities/Risk Factors: Hypertension Dyslipidemia CONCLUSIONS Non obstructive coronary arteries Double vessel CAD of the LAD and DIAG Segmented LV systolic dysfunction- Mild Successful PTCA/ALLIE mid LAD with a 2.5 x 20 Promus Synergy, post dilated with 2.5 x 10 NC Balloon; 85 %-->0%, no dissection. Successful PTCA/ALLIE prox/mid DIAG#1 with a 2.25 x 16 Promus Synergy at 14 ziyad; 85%-->0%, no dissectio n. RECOMMENDATIONS Referred for immediate PCI Stress test in 3 weeks to assess OM territory. Highly recommend quitting all tobacco products Follow up with primary seat cover installer Risk factor modification ASA Indefinitley Plavix for at least 12 months Routine post interventional care Refer for Outpatient Cardiac Rehab Manual sheath removal per protocol Follow up with Dr. Warner Stress test in 3-4 weeks to assess OM#1; if abnl for lateral ischemia, will elective PCI proximal OM# 1. Successful Mynx closure to RFA. DESCRIPTION OF PROCEDURE The patient arrived to the procedure lab. The risks and benefits of the procedure as well as a full d escription of our services here and lack of surgical backup were fully explained to the patient and/o r their significant other prior to the catheterization. The Timeout was completed, verifying the shea ect patient and procedure. The patient's procedural site was prepped and draped in the usual fashion. Local anesthetic was given subcutaneously to right groin region with Lidocaine 2%. Using a modified Seldinger technique, arterial access was obtained via the right femoral artery, a 6Fr sheath was inse rted.. Right Coronary Artery selective angiography was then performed in multiple views using a 4 Fr . 3DRC catheter. Left Ventriculography was performed in BEAN projection using a 4 Fr. Pigtail catheter . LV to AO pullback pressures were then recorded EBU 3.75 Guide catheter was inserted and engaged into the LCA. EBU 3.5 Guide catheter was inserte d and engaged into the LCA. runthrough Guide wire was advanced to the LAD. Emerge 2.0x12 Balloon cath eter was inserted. PTCA balloon inflated at 6 atms for 6 secs. PTCA balloon inflated at 12 atms for 8 secs. Angiogram performed post balloon dilatation. Synergy 2.50x20 Drug Eluting stent was inserted. Angiogram performed post stent deployment. SC Euphora 2.5x10 Balloon catheter was inserted. PTCA ball oon inflated at 12 atms for 7 secs. PTCA balloon inflated at 12 atms for 7 secs. Angiogram performed post balloon dilatation. BMW Guide wire was advanced to the 1st Diagonal. Emerge 2.00x12 Balloon cath eter was inserted. PTCA balloon inflated at 6 atms for 6 secs. Angiogram performed post balloon dilat ation. Synergy 2.25x16 Drug Eluting stent was inserted. Angiogram performed post stent deployment. Co ntrast was injected through the sheath and the Right Iliac and Femoral artery were assessed for possible closure device. The arterial sheath was pulled and a Mynx closure device was d eployed for hemostasis CORONARY ANGIOGRAPHY DOMINANCE: Right Dominant LEFT HEART ASSESSMENT Left Ventricular Ejection Fraction: by LV Gram 55 % Depressed Left Ventricular systolic function LVEDP: 14 mmHg Apical Hypokinesis - Severe LEFT MAIN: Angiographically normal LEFT ANTERIOR DECENDING ARTERY: MID LAD: 85 % Stenosis DIAGONAL 1: Mid - 85 % Stenosis CIRCUMFLEX ARTERY: Mild luminal irregularities less than 30% OM 1: Proximal - 65 % Stenosis RIGHT CORONARY ARTERY: MID RCA: Mild luminal irregularities less than 30% INTERVENTION INFORMATION LESION SITE: LAD (Mid) Lesion Complexity: High/C, lesion at bifurcation: No, thrombus present: No, lesion length: 20 mm, cul prit lesion: Yes Pre intervention MARYBETH flow: 3 PROCEDURE: Drug Eluting Stent with pre and post dilatation Post Stenosis: 0 % Post intervention MARYBETH flow: 3 Lesion Devices: Medtronic 6 Fr EBU3.5 100cm Guide Catheter Ranjan Sci EMERGE MR 2.00x12 BALLOON Ranjan Sci Synergy MR ALLIE 2.50x20 Medtronic SC EUPHORA RX 2.5x10 BALLOON LESION SITE: 1st Diagonal (Mid) Lesion Complexity: Non-High/Non-C, lesion at bifurcation: No, thrombus present: No, lesion length: 16 mm, culprit lesion: No Pre Stenosis: 85 % Pre intervention MARYBETH flow: 3 PROCEDURE: Drug Eluting Stent with pre dilatation. Post Stenosis: 0 % Post intervention MARYBETH flow: 3 Lesion Devices: Ranjan Sci EMERGE MR 2.00x12 BALLOON Ranjan Sci Synergy MR ALLIE 2.25x16 COMPLICATIONS No Complications PROCEDURE MEDICATIONS Oxygen: 2 L/min via nasal cannula Heparin 6000 unit(s) IV 06/20/2018 18:24:28 Nitro drip from ER at [facility] infusing ^FreeText^ 06/20/2018 18:16:21 Nitro 200 mcg IC 06/20/2018 18:33:31 Nitro 200 mcg IC 06/20/2018 18:37:59 Nitro 200 mcg IC 06/20/2018 18:47:59 Nitro 200 mcg IC 06/20/2018 18:51:29 Nitro glycerin 25mg / 250ml D5W @ 5 mcg/min (decreased rate) 06/20/2018 19:18:25 IV Bolus: .9 NaCl 400 ml total 06/20/2018 18:25:55 SUMMARY OF HEMODYNAMIC DATA Time AIR REST ECG 18:08:30 AO 126/75 (98) SA 18:26:20 LV 136/-7, 20 18:56:29 LV 132/-8, 15 18:56:59 LVp 130/-11, 14 18:57:03 AOp 121/58 (84) 18:57:08 Signed By Andrew Warner MD On 06/20/2018 19:26:02 Anderw Warner MD
[2018-06-20 19:36] LABS: ACT Activated Clotting Time 175 sec (74-137)
[2018-06-20 19:36] LABS: ACT Activated Clotting Time 224 sec (74-137)
--- NOTE | 2018-06-20 19:47 | ECHOCS_ITS ---
Reason For Study: CAD/ASHD Procedure This was a 2D Doppler, Color Flow transthoracic echocardiogram. The study was technically difficult. Contrast injection was performed. Exam performed portable in ICU/CCU. Left Ventricle Normal LV size. Segmental dysfunction with preserved ejection fraction (see wall motion). The estimated ejection fraction is 60 %. Diastolic function is indeterminate. Mid-Anterior : Hypokinetic. Mid-Lateral : Hypokinetic. Mid-inferoseptal : Akinetic. Mid-anteroseptal : Akinetic. Anterior [place] : Akinetic. Inferior [place] : Hypokinetic. Lateral [place] : Akinetic. Septal [place] : Hypokinetic. Right Ventricle Normal RV size. Normal systolic function. Atria Normal left atrium. Normal right atrium. No doppler evidence for ASD. Mitral Valve There is mild mitral annular calcification. Normal mitral valve. Trivial mitral valve insufficiency. Tricuspid Valve Normal tricuspid valve. Trivial tricuspid valve insufficiency. Unable to estimate RV systolic pressure/pulmonary artery pressure due to technically difficult study. Aortic Valve Trisinus/trileaflet aortic valve. Mild focal aortic valve calcification. Pulmonic Valve The pulmonic valve is not well visualized. Trivial pulmonic valve insufficiency. Great Vessels Normal sized aortic root. Pericardium/Pleural No pericardial effusion. Medication Diluted definity 2ml given slow IV push to enhance endocardial definition. MMode/2D Measurements & Calculations LVIDd: 4.2 cm IVSd: 1.0 cm Ao root diam: 2.3 cm LVIDs: 2.3 cm LVPWd: 0.94 cm RVDd: 2.8 cm FS: 45.5 % LAV(MOD-bp): 31.2 ml LVAd ap4: 27.2 cm2 SV(MOD-sp4): 49.3 ml LAV(MOD-bp) Indexed: 16.5 ml/m2 EDV(MOD-sp4): 82.4 ml LAV(MOD-sp2): 31.4 ml EDV(sp4-el): 87.2 ml LAV(MOD-sp4): 29.5 ml LVAs ap4: 15.7 cm2 ESV(MOD-sp4): 33.2 ml ESV(sp4-el): 34.7 ml EF(MOD-sp4): 59.8 % EF(sp4-el): 60.2 % SV(sp4-el): 52.5 ml LA A4 area: 13.9 cm2 LA dimension(2D): 4.0 cm RA A4 area: 10.1 cm2 Doppler Measurements & Calculations MV E max gary: 84.4 cm/sec Lat Peak E' Gary: 6.6 cm/sec Med Peak E' Gary: 4.8 cm/sec MV A max gary: 111.1 cm/sec E/E' lat: 12.7 E/E' med: 17.7 MV E/A: 0.76 Ao V2 max: 159.8 cm/sec LV V1 max: 124.7 cm/sec PA V2 max: 104.0 cm/sec Ao max P.2 mmHg LV V1 max P.2 mmHg Ao V2 mean: 117.2 cm/sec Ao mean P.9 mmHg Ao V2 VTI: 31.3 cm Interpretation Summary The study was technically difficult. Contrast injection was performed. Segmental dysfunction with preserved ejection fraction (see wall motion). The estimated ejection fraction is 60 %. There is mild mitral annular calcification. Trivial mitral valve insufficiency. Trivial tricuspid valve insufficiency. Mild focal aortic valve calcification. Trivial pulmonic valve insufficiency. Unable to estimate RV systolic pressure/pulmonary artery pressure due to technically difficult study. Diastolic function is indeterminate. Ordering Physician: Andrew Warner Referring Physician: Mikael Ramires Performed By: Danika Kingston, PRIYA, RVT
[2018-06-20] MEDS: 0.9% Normal Saline 1,000 ML 150 ML IV (19:55)
[2018-06-20 20:55] LABS: Thyroid Stim Hormone (TSH) 2.05 uIU/mL (0.358-3.74)
[2018-06-20 21:45] LABS: Bedside Glucose 97 mg/dL (70-110)
[2018-06-20] MEDS: 0.9% NaCl Peripheral Flush Adult/Peds IV (22:17)
[2018-06-20] MEDS: Atorvastatin Calcium 80 MG Tablet PO (22:17)
[2018-06-20] MEDS: Carvedilol 3.125 MG TABLET PO (22:17)
[2018-06-21] VITALS (23 sets, daily range): BP systolic 110–159; BP diastolic 46–84; PULSE 82–97; RESP 16–28; TEMP 36.2–37.1; O2SAT 94–99; BMI 38.3
[2018-06-21] MEDS: 0.9% NaCl Peripheral Flush Adult/Peds IV ×2 (00:58→04:16)
[2018-06-21] MEDS: 0.9% Normal Saline 1,000 ML 75 ML IV (02:30)
[2018-06-21 04:33] LABS: Absolute Lymphocyte Count 1.74 X10^3/ul (0.83-4.51); Absolute Neutrophil Count 5.8 X10^3/uL (2.0-7.7); Basophil# 0.02 X10^3/uL; Basophil% 0.2 % (0-1); Eosinophil# 0.09 X10^3/uL; Eosinophils% 1.1 % (0-5); Hematocrit 35.9 % (37-47); Hemoglobin 11.6 g/dl (12.0-15.0); Lymphocyte # 1.74 X10^3/ul (4.0); Lymphocyte % 20.6 % (19-41); Mean Corp Hgb Conc 32.3 g/gl (32-36); Mean Corpuscular Hgb 28.1 pg (27.0-32.0); Mean Corpuscular Volume 86.9 fL (81-99); Mean Platelet Vol. 10.1 fl (6.2-12.0); Monocyte% 9.5 % (0-10); Neutrophil # 5.78 X10^3/uL (2.7-7.7); Neutrophil % 68.5 % (47-70); POSITIVE COUNT NO; POSITIVE DIFFERENTIAL NO; POSITIVE MORPHOLOGY NO; Platelet Count 167 K/mm3 (150-450); RBC Distribution Width CV 13.8 % (11.6-14.6); RBC Distribution Width SD 42.2 fl (35.1-43.9); Red Blood Count 4.13 M/mm3 (4.2-5.4); White Blood Count 8.4 K/mm3 (4.4-11.0)
[2018-06-21 04:59] LABS: AST(SGOT) 28 U/L (15-37); Alanine Aminotransfer ALT/SGPT 19 U/L (13-56); Albumin, Serum 2.9 g/dL (3.2-5.0); Alkaline Phosphatase 77 U/L (45-117); Anion Gap 11 (5-15); BUN 10 mg/dL (7-18); BUN/Creat Ratio 15.8 RATIO (10-20); Calcium,Total 8.4 mg/dL (8.5-10.1); Chloride 109 mmol/L (98-107); Cholesterol 172 mg/dL (200); Creatinine, Serum 0.63 mg/dL (0.55-1.02); EST Glomerular Filtration Rate 100 mL/min (>60); Est Glom Filt Rate - Afr Amer 120 mL/min (>60); Estimated Creatinine Clearance 41.19 ml/min; Globulin 2.9 g/dL (2.2-4.2); Glucose 115 mg/dL (74-106); High Density Lipoprotein 39 mg/dL; Potassium 3.3 mmol/L (3.5-5.1); Protein, Total 5.8 g/dL (6.4-8.2); Sodium Level 144 mmol/L (136-145); Triglycerides 179 mg/dL; Very Low Density Lipoprotein 36 mg/dL (5-40)
[2018-06-21] MEDS: Levothyroxine 50 MCG Tablet PO (05:35)
--- NOTE | 2018-06-21 05:55 | EKG12_ITS ---
Test Reason : AM EKG Blood Pressure : / mmHG Vent. Rate : 089 BPM Atrial Rate : 089 BPM P-R Int : 148 ms QRS Dur : 076 ms QT Int : 360 ms P-R-T Axes : 028 -01 024 degrees QTc Int : 438 ms Normal sinus rhythm Nonspecific T wave abnormality Abnormal ECG Confirmed by BRIELLE KAY, BRANDON ([id number]), department editor TRIXIE LAMBERT ([id number] on 06/23/2018 3:42:57 PM Referred By: Andrew Warner Confirmed By:BRANDON HANNAH MD
[2018-06-21 07:05] LABS: Bedside Glucose 117 mg/dL (70-110)
--- NOTE | 2018-06-21 08:50 | CRPHASE1 ---
Patient Data/Charges Real Estate Investment Analyst:: Andrew Warner Phase I Charge:: Level I - Education Risk Factors/Lifestyle Smoking Status: Never smoker Hx Hypertension: Yes - high when she came in never before Hx Diabetes Mellitus Type 2: No Height: 1.55 m Weight:: 92.079 kg BMI: 38.3 Stress: Long-standing, Home/Family Caffeine: Yes Substance Abuse: No Risk Factor for Sedentary Lifestyle: Lowest Risk Family History: Family History (Last Reviewed 03/30/18 @ 15:08 by Roxanna Torres) Mother Cancer Lung cancer Hypertension Anemia Father Cancer Laboratory Values: Cardiac Rehab Phase I Labs Triglycerides 179 mg/dL (-199) 06/21/18 04:15 Cholesterol 172 mg/dL (200) 06/21/18 04:15 LDL Cholesterol 97 mg/dL (0-130) 06/21/18 04:15 HDL Cholesterol 39 mg/dL (40-) L 06/21/18 04:15 Phase I Education Given On:: [place], Nutrition, Antiplatelet medication Issues Affecting Care:: None Knowledge of Condition:: Yes Hospital Course Pain Description: Burning, Pressure Cardiac Cath Date:: 06/20/18 Medical/Surgical History ND:: No Cancer:: Yes Discharge/Home/Social Eval Discharge Disposition: Home Marital Status:
--- NOTE | 2018-06-21 08:54 | CRPHASE1_ITS ---
Patient Data/Charges Newspaper Library Manager:: Andrew Warner Phase I Charge:: Level I - Education Risk Factors/Lifestyle Smoking Status: Never smoker Hx Hypertension: Yes - high when she came in never before Hx Diabetes Mellitus Type 2: No Height: 1.55 m Weight:: 92.079 kg BMI: 38.3 Stress: Long-standing, Home/Family Caffeine: Yes Substance Abuse: No Risk Factor for Sedentary Lifestyle: Lowest Risk Family History: Family History (Last Reviewed 03/30/18 @ 15:08 by Roxanna Torres) Mother Cancer Lung cancer Hypertension Anemia Father Cancer Laboratory Values: Cardiac Rehab Phase I Labs Triglycerides 179 mg/dL (-199) 06/21/18 04:15 Cholesterol 172 mg/dL (200) 06/21/18 04:15 LDL Cholesterol 97 mg/dL (0-130) 06/21/18 04:15 HDL Cholesterol 39 mg/dL (40-) L 06/21/18 04:15 Phase I Education Given On:: [place], Nutrition, Antiplatelet medication Issues Affecting Care:: None Knowledge of Condition:: Yes Hospital Course Pain Description: Burning, Pressure Cardiac Cath Date:: 06/20/18 Medical/Surgical History NM:: No Cancer:: Yes Discharge/Home/Social Eval Discharge Disposition: Home Marital Status:
--- NOTE | 2018-06-21 08:54 | CRPH1.INSTRU ---
General Education CAD and cardiac anatomy and function:: Patient communicates acknowledgment Explanation of diagnoses and procedures:: Patient communicates acknowledgment Sign/Symptoms of MN:: Patient communicates acknowledgment Antiplatelet therapy: Patient communicates acknowledgment Proper use of NTG-SL: Patient communicates acknowledgment Emergency procedures and activation of EMS: Patient communicates acknowledgment Compliance of all prescribed medications: Patient communicates acknowledgment Smoking Patient Nicotine/Smoking Risk Factors Are:: Never smoked Dyslipidemia Recommendations Include:: Lipid profile not available Overweight/Obesity Patient Overweight/Obesity Risk Factors Are:: Overweight = 26-29 Overweight/Obesity:: Patient communicates acknowledgment Hypertension Patient Hypertension Risk Factors Are:: No documented hx of HTN Heart Disease Heart Disease Response Code:: Patient communicates acknowledgment Diabetes Patient Diabetes Risk Factors Are:: No documented hx of diabetes Metabolic Syndrome Patient Metabolic Syndrome Risk Factors Are [3 of 5]:: Waist circumference > 35 [female] or 40 [male] Metabolic Syndrome Response Code:: Patient communicates acknowledgment Sedentary Sedentary Response Code:: Patient communicates acknowledgment Stress Recommendations Include:: Identification of stressors, and assessment of coping skills Stress Response Code:: Patient communicates acknowledgment
--- NOTE | 2018-06-21 09:02 | PCM.PN.HOSP ---
Patient Problems: Active and Suspected Problems (Last Reviewed 03/30/18 @ 15:08 by Roxanna Torres) Acute ST elevation myocardial infarction (Acute) Subjective: No chest pain. Feels wiped out. Noted palpitations last night d/t PVCs. Has had palpitations in the past but not this frequent. Vitals/I&O's: Vital Signs Temp Pulse Resp BP Pulse Ox 37.1 C 84 28 H 147/63 H 96 06/21/18 04:00 06/21/18 07:00 06/21/18 07:00 06/21/18 07:00 06/21/18 07:00 Oxygen Flow Rate (L/min) 2 Oxygen Delivery Method Room Air Weight: 92.079 kg Body Mass Index (BMI) 37.5 Intake and Output for Last 24 Hours 06/19/18 06/20/18 06/21/18 23:59 23:59 23:59 Intake Total 1922 / 1922 Output Total 2350 / 2350 Balance -428 / -428 General: Alert, Cooperative, No apparent distress HEENT: Atraumatic, Normocephalic Oral: Moist Mucosa, No Gingival or Mucosal Lesions/ Ulcerations Neck: No Nodes, Thyroid Normal Size and Texture Lungs: Clear to auscultation, Normal air movement, No rhonchi, No wheeze Cardiovascular: Regular rate, Regular Rhythm, Normal S1, Normal S2, No murmurs Abdomen: Bowel Sounds Present, Soft, Non Tender, Non-Distended, No Hepato-splenomegaly Extremities: No edema, No Calf Tenderness Skin: No rashes, No breakdown Psych/Mental Status: Normal Affect, Appropriate Laboratory Results 06/20/18 17:33: WBC 12.4 H, RBC 4.79, Hgb 13.4, Hct 42.0, MCV 87.7, MCH 28.0, MCHC 31.9 L, RDW 14.1, RDW Differential 45.0 H, Plt Count 253, MPV 9.8, Immature Gran % (Auto) 0.300, Neut % (Auto) 70.0, Lymph % (Auto) 21.3, [place] % (Auto) 6.6, Eos % (Auto) 1.5, Baso % (Auto) 0.3, Absolute Neuts (auto) 8.7 H, Absolute Lymphs (auto) 2.64, Total Counted Not Reportable 06/20/18 17:33: Sodium 139, Potassium 4.0, Chloride 104, Carbon Dioxide 26.0, Anion Gap 9, BUN 12, Creatinine 0.72, Estim Creat Clear Calc 41.19, Est GFR (MDRD) Af Amer 103, Est GFR (MDRD) Non-Af 85, BUN/Creatinine Ratio 16.6, Glucose 106, Calcium 8.9, Troponin I 0.042 06/20/18 17:33: PT Cancelled, INR Cancelled, APTT Cancelled 06/20/18 17:33: TSH 2.05 06/20/18 17:55: PT 14.0, INR 1.1, APTT 187.9 H* 06/20/18 18:16: Activated Clotting Time 175 H 06/20/18 19:07: Activated Clotting Time 224 H 06/20/18 21:40: POC Glucose 97 06/20/18 22:15: Troponin I 2.080 H* 06/21/18 00:50: Troponin I 3.490 H* 06/21/18 04:15: Sodium 144, Potassium 3.3 L, Chloride 109 H, Carbon Dioxide 24.0, Anion Gap 11, BUN 10, Creatinine 0.63, Estim Creat Clear Calc 41.19, Est GFR (MDRD) Af Amer 120, Est GFR (MDRD) Non-Af 100, BUN/Creatinine Ratio 15.8, Glucose 115 H, Calcium 8.4 L, Total Bilirubin 0.50, AST 28, ALT 19, Alkaline Phosphatase 77, Total Protein 5.8 L, Albumin 2.9 L, Globulin 2.9, Albumin/Globulin Ratio 1.0, Triglycerides 179, Cholesterol 172, LDL Cholesterol 97, VLDL Cholesterol 36, HDL Cholesterol 39 L 06/21/18 04:15: WBC 8.4, RBC 4.13 L, Hgb 11.6 L, Hct 35.9 L, MCV 86.9, MCH 28.1, MCHC 32.3, RDW 13.8, RDW Differential 42.2, Plt Count 167, MPV 10.1, Immature Gran % (Auto) 0.100, Neut % (Auto) 68.5, Lymph % (Auto) 20.6, [place] % (Auto) 9.5, Eos % (Auto) 1.1, Baso % (Auto) 0.2, Absolute Neuts (auto) 5.8, Absolute Lymphs (auto) 1.74, Total Counted Not Reportable 06/21/18 04:15: Troponin I 3.910 H* 06/21/18 06:54: POC Glucose 117 H Current Medications Acetaminophen (Tylenol) 650 mg PO Q6H PRN PRN PRN Reason: Fever, headache, pain Aspirin (Ecotrin) 81 mg PO DAILY@0800 [facility] Atorvastatin Calcium (Lipitor) 80 mg PO QHS [facility] Last Admin: 06/20/18 22:17 Dose: 80 mg Atropine Sulfate () 0.5 mg IV UD PRN PRN Reason: HR <50 bpm Carvedilol (Coreg) 3.125 mg PO BID [facility] Last Admin: 06/20/18 22:17 Dose: 3.1249 mg Heparin Sodium (Beef Lung) (Heparin 500 Unit/5 Ml (100/Ml)) 500 unit IV UD PRN PRN Reason: HEPARIN FLUSH Hydrochlorothiazide () 12.5 mg PO DAILY [facility] Nitroglycerin/Dextrose () 250 mls @ 3 mls/hr IV .[id number] [facility]; Protocol Stop: 06/24/18 04:57 Last Admin: 06/20/18 17:47 Dose: 3 mls/hr Sodium Chloride () 1,000 mls @ 75 mls/hr IV .[id number] [facility] Last Admin: 06/21/18 02:30 Dose: 75 mls/hr Labetalol HCl (Trandate) 5 mg IV X1 PRN PRN Reason: SBP > 160 when pulling sheath Levothyroxine Sodium (Synthroid) 50 mcg PO DAILY@0600 [facility] Last Admin: 06/21/18 05:35 Dose: 50 mcg Lisinopril (Zestril) 5 mg PO DAILY [facility] Lorazepam (Ativan) 1 mg PO Q6H PRN PRN PRN Reason: BACK SPASMS/ANXIETY Magnesium Hydroxide (Milk Of Magnesia) 30 ml PO DAILY PRN PRN PRN Reason: Constipation Metoclopramide HCl (Reglan) 5 mg IV Q6H PRN PRN PRN Reason: NAUSEA/VOMITING Nitroglycerin (Nitrostat) 0.4 mg SUBLINGUAL Q5M PRN PRN Reason: CARDIAC/CHEST PAIN Ondansetron HCl (Zofran) 4 mg IV Q6H PRN PRN PRN Reason: NAUSEA/VOMITING Pantoprazole Sodium (Protonix) 40 mg PO DAILY [facility] Sodium Chloride () 500 ml IV BOLUS PRN PRN Reason: VASO-VAGAL PROTOCOL Sodium Chloride () 5 - 15 ml IV UD PRN PRN Reason: SALINE FLUSH Last Admin: 06/21/18 04:16 Dose: 10 ml Ticagrelor (Brilinta) 90 mg PO BID [facility] Medical Necessity - Tobacco Use Smoking Status: Never smoker Assessment/Plan All Active Problems (Last Reviewed 03/30/18 @ 15:08 by Roxanna Torres) Acute ST elevation myocardial infarction (Acute) 1. STEMI s/p ALLIE to mid LAD and prox/mid Diag. on ASA, Ticagrelor, lisinopril carvedilol, and HIS troponins peaked at 3.910 today. echo pending. nitro gtt off since 06/20 cardiology following 2. hypokalemia replace check mag 3. DVT proph: LMWH. 4. Disposition: to home when ok with cardiology. Code Visit Inpatient E&M: 81298 Subs Hosp L2
--- NOTE | 2018-06-21 09:08 | PN_ITS ---
Patient Problems: Active and Suspected Problems (Last Reviewed 03/30/18 @ 15:08 by Roxanna Torres) Acute ST elevation myocardial infarction (Acute) Subjective: No chest pain. Feels wiped out. Noted palpitations last night d/t PVCs. Has had palpitations in the past but not this frequent. Vitals/I&O's: Vital Signs Temp Pulse Resp BP Pulse Ox 37.1 C 84 28 H 147/63 H 96 06/21/18 04:00 06/21/18 07:00 06/21/18 07:00 06/21/18 07:00 06/21/18 07:00 Oxygen Flow Rate (L/min) 2 Oxygen Delivery Method Room Air Weight: 92.079 kg Body Mass Index (BMI) 37.5 Intake and Output for Last 24 Hours 06/19/18 06/20/18 06/21/18 23:59 23:59 23:59 Intake Total 1922 / 1922 Output Total 2350 / 2350 Balance -428 / -428 General: Alert, Cooperative, No apparent distress HEENT: Atraumatic, Normocephalic Oral: Moist Mucosa, No Gingival or Mucosal Lesions/ Ulcerations Neck: No Nodes, Thyroid Normal Size and Texture Lungs: Clear to auscultation, Normal air movement, No rhonchi, No wheeze Cardiovascular: Regular rate, Regular Rhythm, Normal S1, Normal S2, No murmurs Abdomen: Bowel Sounds Present, Soft, Non Tender, Non-Distended, No Hepato- splenomegaly Extremities: No edema, No Calf Tenderness Skin: No rashes, No breakdown Psych/Mental Status: Normal Affect, Appropriate Laboratory Results 06/20/18 17:33: WBC 12.4 H, RBC 4.79, Hgb 13.4, Hct 42.0, MCV 87.7, MCH 28.0, MCHC 31.9 L, RDW 14.1, RDW Differential 45.0 H, Plt Count 253, MPV 9.8, Immature Gran % (Auto) 0.300, Neut % (Auto) 70.0, Lymph % (Auto) 21.3, [place] % (Auto) 6.6, Eos % (Auto) 1.5, Baso % (Auto) 0.3, Absolute Neuts (auto) 8.7 H, Absolute Lymphs (auto) 2.64, Total Counted Not Reportable 06/20/18 17:33: Sodium 139, Potassium 4.0, Chloride 104, Carbon Dioxide 26.0, Anion Gap 9, BUN 12, Creatinine 0.72, Estim Creat Clear Calc 41.19, Est GFR (MDRD) Af Amer 103, Est GFR (MDRD) Non-Af 85, BUN/Creatinine Ratio 16.6, Glucose 106, Calcium 8.9, Troponin I 0.042 06/20/18 17:33: PT Cancelled, INR Cancelled, APTT Cancelled 06/20/18 17:33: TSH 2.05 06/20/18 17:55: PT 14.0, INR 1.1, APTT 187.9 H* 06/20/18 18:16: Activated Clotting Time 175 H 06/20/18 19:07: Activated Clotting Time 224 H 06/20/18 21:40: POC Glucose 97 06/20/18 22:15: Troponin I 2.080 H* 06/21/18 00:50: Troponin I 3.490 H* 06/21/18 04:15: Sodium 144, Potassium 3.3 L, Chloride 109 H, Carbon Dioxide 24.0, Anion Gap 11, BUN 10, Creatinine 0.63, Estim Creat Clear Calc 41.19, Est GFR (MDRD) Af Amer 120, Est GFR (MDRD) Non-Af 100, BUN/Creatinine Ratio 15.8, Glucose 115 H, Calcium 8.4 L, Total Bilirubin 0.50, AST 28, ALT 19, Alkaline Phosphatase 77, Total Protein 5.8 L, Albumin 2.9 L, Globulin 2.9, Albumin/Globulin Ratio 1.0, Triglycerides 179, Cholesterol 172, LDL Cholesterol 97, VLDL Cholesterol 36, HDL Cholesterol 39 L 06/21/18 04:15: WBC 8.4, RBC 4.13 L, Hgb 11.6 L, Hct 35.9 L, MCV 86.9, MCH 28.1, MCHC 32.3, RDW 13.8, RDW Differential 42.2, Plt Count 167, MPV 10.1, Immature Gran % (Auto) 0.100, Neut % (Auto) 68.5, Lymph % (Auto) 20.6, [place] % (Auto) 9.5, Eos % (Auto) 1.1, Baso % (Auto) 0.2, Absolute Neuts (auto) 5.8, Absolute Lymphs (auto) 1.74, Total Counted Not Reportable 06/21/18 04:15: Troponin I 3.910 H* 06/21/18 06:54: POC Glucose 117 H Current Medications Acetaminophen (Tylenol) 650 mg PO Q6H PRN PRN PRN Reason: Fever, headache, pain Aspirin (Ecotrin) 81 mg PO DAILY@0800 [facility] Atorvastatin Calcium (Lipitor) 80 mg PO QHS [facility] Last Admin: 06/20/18 22:17 Dose: 80 mg Atropine Sulfate () 0.5 mg IV UD PRN PRN Reason: HR <50 bpm Carvedilol (Coreg) 3.125 mg PO BID [facility] Last Admin: 06/20/18 22:17 Dose: 3.1249 mg Heparin Sodium (Beef Lung) (Heparin 500 Unit/5 Ml (100/Ml)) 500 unit IV UD PRN PRN Reason: HEPARIN FLUSH Hydrochlorothiazide () 12.5 mg PO DAILY [facility] Nitroglycerin/Dextrose () 250 mls @ 3 mls/hr IV .[id number] [facility]; Protocol Stop: 06/24/18 04:57 Last Admin: 06/20/18 17:47 Dose: 3 mls/hr Sodium Chloride () 1,000 mls @ 75 mls/hr IV .[id number] [facility] Last Admin: 06/21/18 02:30 Dose: 75 mls/hr Labetalol HCl (Trandate) 5 mg IV X1 PRN PRN Reason: SBP > 160 when pulling sheath Levothyroxine Sodium (Synthroid) 50 mcg PO DAILY@0600 [facility] Last Admin: 06/21/18 05:35 Dose: 50 mcg Lisinopril (Zestril) 5 mg PO DAILY [facility] Lorazepam (Ativan) 1 mg PO Q6H PRN PRN PRN Reason: BACK SPASMS/ANXIETY Magnesium Hydroxide (Milk Of Magnesia) 30 ml PO DAILY PRN PRN PRN Reason: Constipation Metoclopramide HCl (Reglan) 5 mg IV Q6H PRN PRN PRN Reason: NAUSEA/VOMITING Nitroglycerin (Nitrostat) 0.4 mg SUBLINGUAL Q5M PRN PRN Reason: CARDIAC/CHEST PAIN Ondansetron HCl (Zofran) 4 mg IV Q6H PRN PRN PRN Reason: NAUSEA/VOMITING Pantoprazole Sodium (Protonix) 40 mg PO DAILY [facility] Sodium Chloride () 500 ml IV BOLUS PRN PRN Reason: VASO-VAGAL PROTOCOL Sodium Chloride () 5 - 15 ml IV UD PRN PRN Reason: SALINE FLUSH Last Admin: 06/21/18 04:16 Dose: 10 ml Ticagrelor (Brilinta) 90 mg PO BID [facility] Medical Necessity - Tobacco Use Smoking Status: Never smoker Assessment/Plan All Active Problems (Last Reviewed 03/30/18 @ 15:08 by Roxanna Torres) Acute ST elevation myocardial infarction (Acute) 1. STEMI * s/p ALLIE to mid LAD and prox/mid Diag. * on ASA, Ticagrelor, lisinopril carvedilol, and HIS * troponins peaked at 3.910 today. * echo pending. * nitro gtt off since 06/20 * cardiology following 2. hypokalemia * replace * check mag 3. DVT proph: LMWH. 4. Disposition: to home when ok with cardiology. Code Visit Inpatient E&M: 23731 Subs Hosp L2
[2018-06-21 09:27] LABS: Magnesium 1.8 mg/dL (1.6-2.6)
--- NOTE | 2018-06-21 10:46 | CASEMGMT ---
SW met w/pt in room in regard to prior level of function and discharge plan. Pt appears to be alert and oriented X3. Pt explained what happened yesterday and the symptoms she was having, and her brought her to the hospital. Pt states that she had a heart attack. Pt states was diagnosed w/cancer in July, but there is no treatment for the type of cancer she has. Because of this pt cannot have orthopedic surgery, pt states she has arthritis. Pt states she also had a root canal, pneumonia, and a bladder infection this year. SW offered support to pt, though pt states she is coping well even with all of the health issues she's had this year. Pt is independent with ADL's, uses no DME, though does have grab bars in the shower. Pt does not drive(never has). Pt cooks and cleans, does her own medication. Pt's PCP is Dr. Ramires, [place] Medicare is insurance for medical and scripts. Pt gets medication from [facility] in [place]. Pt's is her POA. It is not anticipated pt will have any homegoing needs. SW did let pt know that if she goes home on a blood thinner that CM will check on how it is covered by insurance. Otherwise, no homegoing needs anticipated. SW is available should any needs arise. LOLITA Lopez, TILE SETTER SUPERVISOR
[2018-06-21] MEDS: Aspirin E.C. 81 MG Tablet PO (12:07)
[2018-06-21] MEDS: Carvedilol 3.125 MG TABLET PO (12:07)
[2018-06-21] MEDS: hydroCHLOROthiazide 12.5mg 12.5 MG PO (12:07)
[2018-06-21] MEDS: Pantoprazole Sodium 40 MG Tablet PO (12:08)
[2018-06-21] MEDS: Lisinopril 5 MG Tablet PO (12:08)
[2018-06-21] MEDS: TICAGRELOR 90 MG TABLET PO ×2 (13:28→21:05)
--- NOTE | 2018-06-21 13:53 | CHAPLAIN ---
Type of Pastoral Visit _x__ Initial Visit ___ Follow-up Visit ___ On-call Visit ___ General Patient Visit ___ Spiritual Assessment ___ Family Conference ___ Bereavement ___ Rapid Response ___ Code Blue ___ Other (describe below) Pastoral Care Referral From _x__ Patient ___ Family ___ Nurse ___ Physician ___ Software Applications Specialist ___ Wallpaper Printer ___ Other (describe below) Sacrament/Intervention _x__ Active listening ___ Anointing ___ Bahai ___ Bereavement ___ Communion _x__ Yeimy exploration ___ _x__ Life review _x__ Prayer ___ Reconciliation ___ Sacrament of Sick _x__ Supportive presence ___ Wedding ___ Other (describe below) Pastoral Comments
--- NOTE | 2018-06-21 16:28 | DCINST_ITS ---
- Discharge Diagnoses Current Active Problems: Current Active and Chronic Problems (Last Updated 06/21/18 @ 15:50 by Liana Guadalupe) Stented coronary artery (Chronic 06/20/18) STEMI, ALLIE to mid lad (2.5 X 20 [employer]), ALLIE to proximal Diagonal #1 (2.25 X 16 [employer]) per Dr. Warner @ [facility] Atherosclerotic heart disease of [place] coronary artery without angina pectoris (Chronic) STEMI, ALLIE to mid lad (2.5 X 20 [employer]), ALLIE to proximal Diagonal #1 (2.25 X 16 [employer]) per Dr. Warner @ [facility] Acute ST elevation myocardial infarction (Acute) Waldenstrom's macroglobulinemia (Chronic) GERD (gastroesophageal reflux disease) (Chronic) Hypothyroidism (Chronic) M?ni?re's disease (Chronic) You will use the following diet at home:: Cardiac Your food should be the consistency of: Regular Discharge Activity: Return to Normal Activity Call your doctor if your incision/area has: Continuous Slow Oozing, Sudden Increased Bleeding, Increased Pain/ Swelling Call your doctor if you observe: Fever of 101 or Higher, Shortness of breath, Chest pain Allergies/Adverse Reactions: Allergies clarithromycin [From Biaxin] Allergy (Verified 06/20/18 17:29) Rash sulfamethoxazole [From Bactrim] Allergy (Verified 06/20/18 17:29) Rash trimethoprim [From Bactrim] Allergy (Verified 06/20/18 17:29) Rash codeine Adverse Reaction (Verified 06/20/18 17:29) Upset Stomach Penicillins Adverse Reaction (Verified 06/20/18 17:29) Other Medications to take at Discharge Hydrochlorothiazide [Hctz] 12.5 mg PO DAILY 12/31/16 Levothyroxine [Synthroid] 50 mcg PO DAILY 12/31/16 Metronidazole 0.75% [Metrogel Vaginal] 70 applic TOPICAL DAILY 12/31/16 Omeprazole 40 mg PO DAILY 12/31/16 Potassium Chloride [Klor-Con M20] 20 meq PO DAILY 12/31/16 Aspirin E.C. [Ecotrin] 81 mg PO DAILY@0800 tablet 06/21/18 Atorvastatin Calcium [Lipitor] 80 mg PO QHS #30 tablet 06/21/18 Carvedilol [Coreg (Beta Leopoldo)] 3.125 mg PO BID #60 tablet 06/21/18 Lisinopril [Zestril] 5 mg PO DAILY #30 tablet 06/21/18 Ticagrelor [Brilinta] 90 mg PO BID #60 tablet 06/21/18 The following prescriptions were given: Atorvastatin Calcium [Lipitor] 80 mg PO QHS #30 tablet Lisinopril [Zestril] 5 mg PO DAILY #30 tablet Carvedilol [Coreg (Beta Leopoldo)] 3.125 mg PO BID #60 tablet Ticagrelor [Brilinta] 90 mg PO BID #60 tablet Orders to be completed after discharge: Phase II, Outpatient Cardiac Rehab Location: None Selected Primary Care Physician: Mikael Ramires DO [Primary Care Provider] - Test Results: Test results from this visit will be discussed in further detail at your follow- up appointment, if applicable. Please Follow Up With: Artur Kingston NP-C When: 2 weeks Proposed Discharge Date: 06/21/18
--- NOTE | 2018-06-21 20:35 | PN.CARD_ITS ---
Subjectve: The patient states she is resting well. She describes no ongoing chest discomfort or difficulty breathing at this time. She is concerned about the p ossibility of sensing her PVCs. Objective: Vital Signs Temp Pulse Resp BP Pulse Ox 97.1 F L 95 16 144/64 H 98 06/21/18 18:05 06/21/18 18:05 06/21/18 18:05 06/21/18 18:05 06/21/18 18:05 Oxygen Flow Rate (L/min) 2 Oxygen Delivery Method Room Air Weight: 202 lb 15.991 oz Body Mass Index (BMI) 37.5 Intake and Output for Last 24 Hours 06/19/18 06/20/18 06/21/18 23:59 23:59 23:59 Intake Total 2872 / 2872 Output Total 2350 / 2350 Balance 522 / 522 General: Awake, Alert, Oriented x 3, Cooperative, No Acute Distress HEENT: Atraumatic, Normocephalic, PERRL Oral: Moist Mucosa Neck: Supple, Good ROM, No JVD Lungs: Clear to auscultation Cardiovascular: Regular Rhythm, Premature Ectopic Beats, Normal S1, Normal S2 Vascular: Normal Femoral Pulses Abdomen: Bowel Sounds Present, Soft, Non Tender Extremities: No edema Neurological: No Focal Motor or Sensory Deficit Psych/Mental Status: Appropriate 06/20/18 22:15: Troponin I 2.080 H* 06/21/18 00:50: Troponin I 3.490 H* 06/21/18 04:15: Sodium 144, Potassium 3.3 L, Chloride 109 H, Carbon Dioxide 24.0, Anion Gap 11, BUN 10, Creatinine 0.63, Est GFR (MDRD) Af Amer 120, Est GFR (MDRD) Non-Af 100, BUN/Creatinine Ratio 15.8, Glucose 115 H, Calcium 8.4 L, Total Bilirubin 0.50, Triglycerides 179, Cholesterol 172, LDL Cholesterol 97, VLDL Cholesterol 36, HDL Cholesterol 39 L 06/21/18 04:15: WBC 8.4, RBC 4.13 L, Hgb 11.6 L, Hct 35.9 L, MCV 86.9, MCH 28.1, MCHC 32.3, RDW 13.8, RDW Differential 42.2, Plt Count 167, MPV 10.1, Immature Gran % (Auto) 0.100, Neut % (Auto) 68.5, Lymph % (Auto) 20.6, [place] % (Auto) 9.5, Eos % (Auto) 1.1, Baso % (Auto) 0.2, Absolute Neuts (auto) 5.8, Total Counted Not Reportable 06/21/18 04:15: Troponin I 3.910 H* 06/21/18 04:15: Magnesium 1.8 Rhythm: Sinus rhythm; PVCs EKG: Sinus rhythm; nonspecific T wave abnormality ECHO: Interpretation Summary The study was technically difficult. Contrast injection was performed. Segmental dysfunction with preserved ejection fraction (see wall motion). The estimated ejection fraction is 60 %. There is mild mitral annular calcification. Trivial mitral valve insufficiency. Trivial tricuspid valve insufficiency. Mild focal aortic valve calcification. Trivial pulmonic valve insufficiency. Unable to estimate RV systolic pressure/pulmonary artery pressure due to technically difficult study. Diastolic function is indeterminate. Cardiac Cath: Please see report per Andrew Warner MD PCI: Please see report for Andrew Warner MD Medical Necessity - Tobacco Use Smoking Status: Never smoker Assessment/Plan 1. Acute anterior ST segment elevation [place] The patient is now status post previous cardiovascular evaluation by Andrew Warner MD. This led to further evaluation with cardiac catheterization and subsequent PCI. She is now recuperating. Overall she states she is doing better. She does not describe any ongoing symptoms. She will continue to be followed and have her medications adjusted. She will eventually need outpatient cardiovascular follow-up and outpatient cardiac rehabilitation therapy. 2. PVCs The patient does have PVCs. She appears without obvious hemodynamic compromise at this time. She will continue to be followed. She will continue medical therapy. Hopefully her beta-davis therapy will assist with any ventricular ectopy and associated symptoms. She has any complex ventricular ectopy then she will need further evaluation care as deemed appropriate. This note was generated using a voice recognition system and there may be incorrect words, spelling or punctuation that were not noted when reviewing the office note prior to saving.
[2018-06-21] MEDS: Atorvastatin Calcium 80 MG Tablet PO (21:04)
[2018-06-21] MEDS: Carvedilol 6.25 MG Tablet PO (21:06)
[2018-06-22] VITALS (8 sets, daily range): BP systolic 109–114; BP diastolic 63; PULSE 81–109; RESP 16–18; TEMP 36.7–36.9; O2SAT 93–98
[2018-06-22] MEDS: Enoxaparin 40 MG/0.4 ML Syringe SC (05:18)
[2018-06-22] MEDS: Levothyroxine 50 MCG Tablet PO (05:18)
[2018-06-22 07:33] LABS: Anion Gap 10 (5-15); BUN 13 mg/dL (7-18); BUN/Creat Ratio 19.8 RATIO (10-20); Calcium,Total 8.5 mg/dL (8.5-10.1); Chloride 109 mmol/L (98-107); Creatinine, Serum 0.66 mg/dL (0.55-1.02); EST Glomerular Filtration Rate 96 mL/min (>60); Est Glom Filt Rate - Afr Amer 116 mL/min (>60); Estimated Creatinine Clearance 41.19 ml/min; Glucose 113 mg/dL (74-106); Potassium 3.7 mmol/L (3.5-5.1); Sodium Level 141 mmol/L (136-145)
[2018-06-22] MEDS: Lisinopril 5 MG Tablet PO (08:49)
[2018-06-22] MEDS: hydroCHLOROthiazide 12.5mg 12.5 MG PO (08:49)
[2018-06-22] MEDS: TICAGRELOR 90 MG TABLET PO (08:50)
[2018-06-22] MEDS: Aspirin E.C. 81 MG Tablet PO (08:50)
[2018-06-22] MEDS: Pantoprazole Sodium 40 MG Tablet PO (08:50)
[2018-06-22] MEDS: Carvedilol 6.25 MG Tablet PO (08:52)
--- NOTE | 2018-06-22 08:55 | CASEMGMT ---
RYAN METZGER NOTE: Call placed to [facility]. Brilinta savings card has been applied. 1st 30 days will be free, then showing will be $2 co-pay thereafter, but pharmacist states d/t this is @ end-of-year, unable to determine what pt's co-pay will be in 2019. RYAN METZGER to room to talk with pt. She was made aware 1st 30 days will be free, but then unable to determine co-pay for refills d/t @ end of year and unable to process co-pay for 2019. Pt was instructed to follow-up with her stringer up soldering machine re: co-pay for Brilinta and to inform him if co-pay is too high so they can discuss options of alternative medication or assistance with cost. Pt voices understanding. Luli GRADY RN CM
--- NOTE | 2018-06-22 10:00 | EKG12_ITS ---
Test Reason : AM EKG Blood Pressure : / mmHG Vent. Rate : 096 BPM Atrial Rate : 096 BPM P-R Int : 138 ms QRS Dur : 074 ms QT Int : 388 ms P-R-T Axes : 035 007 076 degrees QTc Int : 490 ms Normal sinus rhythm T wave abnormality, consider anterior ischemia Prolonged QT Abnormal ECG Confirmed by BRIELLE KAY, BRANDON ([id number]), editorial specialist TRIXIE LAMBERT ([id number]) on 06/26/2018 1:41:42 PM Referred By: Andrew Warner Confirmed By:BRANDON HANNAH MD
--- NOTE | 2018-06-22 12:54 | PCM.DC.SUM ---
Discharge Date and Diagnosis - Problem List Patient Problems: Active and Suspected Problems (Last Updated 06/21/18 @ 15:50 by Liana Guadalupe) Acute ST elevation myocardial infarction (Acute) Date of Admission: 06/20/18 Date of Discharge: 06/22/18 - Primary Discharge Diagnosis Active and Suspected Problems (Last Updated 06/21/18 @ 15:50 by Liana Guadalupe) Acute ST elevation myocardial infarction (Acute) - Secondary Discharge Diagnosis Chronic Problems (Last Updated 06/21/18 @ 15:50 by Liana Guadalupe) Stented coronary artery (Chronic 06/20/18) STEMI, ALLIE to mid lad (2.5 X 20 Promus Synergy), ALLIE to proximal Diagonal #1 (2.25 X 16 Promus Synergy) per Dr. Warner @ [facility] Atherosclerotic heart disease of [place] coronary artery without angina pectoris (Chronic) STEMI, ALLIE to mid lad (2.5 X 20 Promus Synergy), ALLIE to proximal Diagonal #1 (2.25 X 16 Promus Synergy) per Dr. Warner @ [facility] Waldenstrom's macroglobulinemia (Chronic) GERD (gastroesophageal reflux disease) (Chronic) Hypothyroidism (Chronic) M?ni?re's disease (Chronic) Hospital Course and Treatment Imaging Results: Clinical Impression(s) from Imaging Studies Chest X-Ray 06/20/18 17:44 IMPRESSION: Indeterminate right basilar nodular opacity that is likely secondary to confluence of shadows, consider PA and lateral for further evaluation. Electronically Signed: Stephanie Hickey MD at 18:24 EST Tel , Service support , Operations: None Procedures: 2-D Echocardiogram, Cardiac catheterization Summary of Care Provided: The patient is a 67 year old F presents with chest pain. Found to have a STEMI. 1. STEMI s/p ALLIE to mid LAD and prox/mid Diag. on ASA, Ticagrelor, lisinopril carvedilol, and HIS troponins peaked at 3.910 today. echo shows an EF of 60% nitro gtt off since 06/20 cardiology follow up 2. hypokalemia resolved Patient Problems: Active and Suspected Problems (Last Updated 06/21/18 @ 15:50 by Liana Guadalupe) Acute ST elevation myocardial infarction (Acute) Subjective: had some CHAMBERS today. - Physical Exam General: Alert, Cooperative, No apparent distress HEENT: Atraumatic, Normocephalic Oral: Moist Mucosa, No Gingival or Mucosal Lesions/ Ulcerations Neck: No Nodes, Thyroid Normal Size and Texture Lungs: Clear to auscultation, Normal air movement, No rhonchi, No wheeze Cardiovascular: Regular rate, Regular Rhythm, Normal S1, Normal S2, No murmurs Abdomen: Bowel Sounds Present, Soft, Non Tender, Non-Distended, No Hepato-splenomegaly Extremities: No edema, No Calf Tenderness Psych/Mental Status: Normal Affect, Appropriate Vital Signs Temp Pulse Resp BP Pulse Ox 36.7 C 98 18 109/63 93 06/22/18 08:35 06/22/18 11:00 06/22/18 08:35 06/22/18 08:35 06/22/18 08:35 Oxygen Flow Rate (L/min) 2 Oxygen Delivery Method Room Air Weight: 91.4 kg Body Mass Index (BMI) 37.5 Intake and Output for Last 24 Hours 06/20/18 06/21/18 06/22/18 23:59 23:59 23:59 Intake Total 2872 / 2872 980 / 980 Output Total 2350 / 2350 Balance 522 / 522 980 / 980 Laboratory Tests Past 24 Hrs 06/22/18 06:35 Sodium 141 Potassium 3.7 Chloride 109 H Carbon Dioxide 22.0 Anion Gap 10 BUN 13 Creatinine 0.66 Estim Creat Clear Calc 41.19 Est GFR (MDRD) Af Amer 116 Est GFR (MDRD) Non-Af 96 BUN/Creatinine Ratio 19.8 Glucose 113 H Calcium 8.5 Discharge Diet: Low fat/ Low Cholesterol Discharge Activity: Return to Normal Activity Call your doctor if your incision/area has: Continuous Slow Oozing, Sudden Increased Bleeding, Increased Pain/ Swelling Call your doctor if you observe: Fever of 101 or Higher, Shortness of breath, Chest pain Home Medications: Medications to take at Discharge Hydrochlorothiazide [Hctz] 12.5 mg PO DAILY 12/31/16 Levothyroxine [Synthroid] 50 mcg PO DAILY 12/31/16 Metronidazole 0.75% [Metrogel Vaginal] 70 applic TOPICAL DAILY 12/31/16 Omeprazole 40 mg PO DAILY 12/31/16 Potassium Chloride [Klor-Con M20] 20 meq PO DAILY 12/31/16 Aspirin E.C. [Ecotrin] 81 mg PO DAILY@0800 tablet 06/21/18 Atorvastatin Calcium [Lipitor] 80 mg PO QHS #30 tablet 06/21/18 Carvedilol [Coreg (Beta Leopoldo)] 3.125 mg PO BID #60 tablet 06/21/18 Lisinopril [Zestril] 5 mg PO DAILY #30 tablet 06/21/18 Ticagrelor [Brilinta] 90 mg PO BID #60 tablet 06/21/18 Following Prescrptions Were Given to Patient: Atorvastatin Calcium [Lipitor] 80 mg PO QHS #30 tablet Lisinopril [Zestril] 5 mg PO DAILY #30 tablet Carvedilol [Coreg (Beta Leopoldo)] 3.125 mg PO BID #60 tablet Ticagrelor [Brilinta] 90 mg PO BID #60 tablet Other Amb Orders: Phase II, Outpatient Cardiac Rehab Location: None Selected Primary Care Physician: Mikael Ramires DO [Primary Care Provider] - Please Follow Up With: Artur Kingston OFFICE INSPECTOR-C When: 2 weeks Disposition: Home Minutes spent on discharge:: 28 Patient Condition:: Fair Medical Necessity - Tobacco Use Smoking Status: Never smoker Meaningful Use Info Meaningful Use Diagnoses (Choose all that apply): AMI - AMI Aspirin given w/in 24hrs of arrival?: Yes ASA at discharge?: Yes Statins at discharge?: Yes Olman/ARB at discharge?: Yes Beta Leopoldo at discharge?: Yes Done w/ Acute [place] measure.: Yes Code Visit Inpatient E&M: 55262 Disch Hosp
--- NOTE | 2018-06-22 12:58 | DS.PCM_ITS ---
Discharge Date and Diagnosis - Problem List Patient Problems: Active and Suspected Problems (Last Updated 06/21/18 @ 15:50 by Liana Guadalupe) Acute ST elevation myocardial infarction (Acute) Date of Admission: 06/20/18 Date of Discharge: 06/22/18 - Primary Discharge Diagnosis Active and Suspected Problems (Last Updated 06/21/18 @ 15:50 by Liana Guadalupe) Acute ST elevation myocardial infarction (Acute) - Secondary Discharge Diagnosis Chronic Problems (Last Updated 06/21/18 @ 15:50 by Liana Guadalupe) Stented coronary artery (Chronic 06/20/18) STEMI, ALLIE to mid lad (2.5 X 20 Promus Synergy), ALLIE to proximal Diagonal #1 (2.25 X 16 Promus Synergy) per Dr. Warner @ [facility] Atherosclerotic heart disease of [place] coronary artery without angina pectoris (Chronic) STEMI, ALLIE to mid lad (2.5 X 20 Promus Synergy), ALLIE to proximal Diagonal #1 (2.25 X 16 Promus Synergy) per Dr. Warner @ [facility] Waldenstrom's macroglobulinemia (Chronic) GERD (gastroesophageal reflux disease) (Chronic) Hypothyroidism (Chronic) M?ni?re's disease (Chronic) Hospital Course and Treatment Imaging Results: Clinical Impression(s) from Imaging Studies Chest X-Ray 06/20/18 17:44 IMPRESSION: Indeterminate right basilar nodular opacity that is likely secondary to confluence of shadows, consider PA and lateral for further evaluation. Electronically Signed: Stephanie Hickey MD at 18:24 EST Tel , Service support , Operations: None Procedures: 2-D Echocardiogram, Cardiac catheterization Summary of Care Provided: The patient is a 67 year old F presents with chest pain. Found to have a STEMI. 1. STEMI * s/p ALLIE to mid LAD and prox/mid Diag. * on ASA, Ticagrelor, lisinopril carvedilol, and HIS * troponins peaked at 3.910 today. * echo shows an EF of 60% * nitro gtt off since 06/20 * cardiology follow up 2. hypokalemia * resolved Patient Problems: Active and Suspected Problems (Last Updated 06/21/18 @ 15:50 by Liana Guadalupe) Acute ST elevation myocardial infarction (Acute) Subjective: had some CHAMBERS today. - Physical Exam General: Alert, Cooperative, No apparent distress HEENT: Atraumatic, Normocephalic Oral: Moist Mucosa, No Gingival or Mucosal Lesions/ Ulcerations Neck: No Nodes, Thyroid Normal Size and Texture Lungs: Clear to auscultation, Normal air movement, No rhonchi, No wheeze Cardiovascular: Regular rate, Regular Rhythm, Normal S1, Normal S2, No murmurs Abdomen: Bowel Sounds Present, Soft, Non Tender, Non-Distended, No Hepato- splenomegaly Extremities: No edema, No Calf Tenderness Psych/Mental Status: Normal Affect, Appropriate Vital Signs Temp Pulse Resp BP Pulse Ox 36.7 C 98 18 109/63 93 06/22/18 08:35 06/22/18 11:00 06/22/18 08:35 06/22/18 08:35 06/22/18 08:35 Oxygen Flow Rate (L/min) 2 Oxygen Delivery Method Room Air Weight: 91.4 kg Body Mass Index (BMI) 37.5 Intake and Output for Last 24 Hours 06/20/18 06/21/18 06/22/18 23:59 23:59 23:59 Intake Total 2872 / 2872 980 / 980 Output Total 2350 / 2350 Balance 522 / 522 980 / 980 Laboratory Tests Past 24 Hrs 06/22/18 06:35 Sodium 141 Potassium 3.7 Chloride 109 H Carbon Dioxide 22.0 Anion Gap 10 BUN 13 Creatinine 0.66 Estim Creat Clear Calc 41.19 Est GFR (MDRD) Af Amer 116 Est GFR (MDRD) Non-Af 96 BUN/Creatinine Ratio 19.8 Glucose 113 H Calcium 8.5 Discharge Diet: Low fat/ Low Cholesterol Discharge Activity: Return to Normal Activity Call your doctor if your incision/area has: Continuous Slow Oozing, Sudden Increased Bleeding, Increased Pain/ Swelling Call your doctor if you observe: Fever of 101 or Higher, Shortness of breath, Chest pain Home Medications: Medications to take at Discharge Hydrochlorothiazide [Hctz] 12.5 mg PO DAILY 12/31/16 Levothyroxine [Synthroid] 50 mcg PO DAILY 12/31/16 Metronidazole 0.75% [Metrogel Vaginal] 70 applic TOPICAL DAILY 12/31/16 Omeprazole 40 mg PO DAILY 12/31/16 Potassium Chloride [Klor-Con M20] 20 meq PO DAILY 12/31/16 Aspirin E.C. [Ecotrin] 81 mg PO DAILY@0800 tablet 06/21/18 Atorvastatin Calcium [Lipitor] 80 mg PO QHS #30 tablet 06/21/18 Carvedilol [Coreg (Beta Leopoldo)] 3.125 mg PO BID #60 tablet 06/21/18 Lisinopril [Zestril] 5 mg PO DAILY #30 tablet 06/21/18 Ticagrelor [Brilinta] 90 mg PO BID #60 tablet 06/21/18 Following Prescrptions Were Given to Patient: Atorvastatin Calcium [Lipitor] 80 mg PO QHS #30 tablet Lisinopril [Zestril] 5 mg PO DAILY #30 tablet Carvedilol [Coreg (Beta Leopoldo)] 3.125 mg PO BID #60 tablet Ticagrelor [Brilinta] 90 mg PO BID #60 tablet Other Amb Orders: Phase II, Outpatient Cardiac Rehab Location: None Selected Primary Care Physician: Mikael Ramires DO [Primary Care Provider] - Please Follow Up With: Artur Kingston DIRECTOR HOSPICE OPERATIONS-C When: 2 weeks Disposition: Home Minutes spent on discharge:: 28 Patient Condition:: Fair Medical Necessity - Tobacco Use Smoking Status: Never smoker Meaningful Use Info Meaningful Use Diagnoses (Choose all that apply): AMI - AMI Aspirin given w/in 24hrs of arrival?: Yes ASA at discharge?: Yes Statins at discharge?: Yes Olman/ARB at discharge?: Yes Beta Leopoldo at discharge?: Yes Done w/ Acute [place] measure.: Yes Code Visit Inpatient E&M: 48549 Disch Hosp
--- NOTE | 2018-06-22 17:18 | PCM.PN.CARD ---
Subjectve: The patient was evaluated earlier this day. She was without complaint of ongoing chest discomfort. She was asked to be up and about with OT/PT. This subsequently occurred. She reported doing well with no acute symptoms or adverse events. Objective: Vital Signs Temp Pulse Resp BP Pulse Ox 98.0 F 100 18 109/63 96 06/22/18 14:55 06/22/18 15:02 06/22/18 14:55 06/22/18 14:55 06/22/18 14:55 Oxygen Flow Rate (L/min) 2 Oxygen Delivery Method Room Air Weight: 201 lb 8.04 oz Body Mass Index (BMI) 37.5 Intake and Output for Last 24 Hours 06/20/18 06/21/18 06/22/18 23:59 23:59 23:59 Intake Total 2872 / 2872 1340 / 1340 Output Total 2350 / 2350 Balance 522 / 522 1340 / 1340 General: Awake, Alert, Oriented x 3, Cooperative, No Acute Distress, Obese HEENT: Atraumatic, Normocephalic, PERRL, EOMI, Sclera Non Icteric Oral: Moist Mucosa Neck: Supple, Good ROM, No JVD Lungs: Clear to auscultation Cardiovascular: Regular Rhythm, Normal S1, Normal S2 Abdomen: Bowel Sounds Present, Soft, Non Tender Extremities: No edema Neurological: No Focal Motor or Sensory Deficit Psych/Mental Status: Appropriate 06/22/18 06:35: Sodium 141, Potassium 3.7, Chloride 109 H, Carbon Dioxide 22.0, Anion Gap 10, BUN 13, Creatinine 0.66, Est GFR (MDRD) Af Amer 116, Est GFR (MDRD) Non-Af 96, BUN/Creatinine Ratio 19.8, Glucose 113 H, Calcium 8.5 Rhythm: Sinus rhythm EKG: Sinus rhythm; T wave abnormality potentially compatible with myocardial ischemia-anterior Medical Necessity - Tobacco Use Smoking Status: Never smoker Assessment/Plan 1. Acute anterior ST segment elevation NM The patient is now status post previous cardiovascular evaluation by Andrew Warner MD. This led to further evaluation with cardiac catheterization and subsequent PCI. She is now recuperating. Overall she states she is doing better. She does not describe any ongoing symptoms. She will continue to be followed and have her medications adjusted. She will eventually need outpatient cardiovascular follow-up and outpatient cardiac rehabilitation therapy. 2. PVCs The patient does have PVCs. She appears without obvious hemodynamic compromise at this time. She will continue to be followed. She will continue medical therapy. Hopefully her beta-davis therapy will assist with any ventricular ectopy and associated symptoms. She has any complex ventricular ectopy then she will need further evaluation care as deemed appropriate. Overall the patient appears to be symptomatically improved and hemodynamically stable. Thus she is going to be followed as an outpatient as noted above as well as have follow-up outpatient cardiac rehabilitation therapy. This note was generated using a voice recognition system and there may be incorrect words, spelling or punctuation that were not noted when reviewing the office note prior to saving.
--- NOTE | 2018-06-23 15:49 | CASEMGMT ---
RYAN METZGER Discharge F/U Phone Call LACE: Mara Strata: 3 Discharge date: 06/22/18 Call date: 06/23/18 Call time: [id number] Duration: Admission dx: STEMI Pt states has been doing 'a lot better' since discharge yesterday. Pt states no questions regarding discharge instructions or medications at this time. Pt states has several follow up appointments scheduled and plans to keep them all. Pt states no suggestions for [facility] at this time but states '[facility] is so [facility]! People around here don't how pamela they are. The hospital is so clean. ICU was great!' Pt voices no further questions/concerns/needs at this time. Pt states is planning on doing cardiac rehab and already placed call to her insurance regarding coverage. Pt states that her went and got her 2 notebooks and a calendar to keep track of everything. SStaten RYAN METZGER
== END 2018-06-22 17:24 | disposition home or self-care (01) | DRG 247 ==
LOC: ED 17:41 → ICU 18:02 → PCU 06-21 20:26 → ICU 06-22 08:59
PROVIDERS: Admitting Provider Hospitalist; Emergency Provider Emergency Medicine; Family Provider Family Medicine; PCP Family Medicine; Referring Provider Internal Medicine Cardiovascular Disease; Visit Provider Internal Medicine Cardiovascular Disease
DX: I21.09 ST elevation (STEMI) myocardial infarction involving other coronary artery of anterior wall (principal); E03.9 Hypothyroidism, unspecified; I25.110 Atherosclerotic heart disease of native coronary artery with unstable angina pectoris; E78.5 Hyperlipidemia, unspecified; I10 Essential (primary) hypertension; C88.0 Waldenstrom macroglobulinemia; K21.9 Gastro-esophageal reflux disease without esophagitis; J45.909 Unspecified asthma, uncomplicated; E87.6 Hypokalemia; I49.3 Ventricular premature depolarization
CPT/HCPCS: 36415; 71045; 80048; 80053; 80061; 82962; 83735; 84443; 84484; 85025; 85347; 85610; 85730; 92929; 92941; 93005; 93306; 93458; 97802; 99284; C1760; J7030; J7040; Q9957; Q9967; A4216; C1725; C1769; C1874; C1887; C8929; C9601; C9606

== ENCOUNTER 2018-06-24 00:42 | Emergency (ER) | payer MEDICARE, SELFPAY ==
[2018-06-20 19:47] VITALS: BMI 37.5
[2018-06-21 08:53] VITALS: BMI 38.3
[2018-06-24 00:43] VITALS: BP 143/83; PULSE 111; RESP 18; TEMP 36.3; O2SAT 95; BMI 37.1
--- NOTE | 2018-06-24 00:53 | EKG12_ITS ---
Test Reason : Blood Pressure : / mmHG Vent. Rate : 105 BPM Atrial Rate : 105 BPM P-R Int : 140 ms QRS Dur : 070 ms QT Int : 336 ms P-R-T Axes : 027 -09 045 degrees QTc Int : 444 ms Sinus tachycardia Low voltage QRS Borderline ECG Confirmed by BRIELLE KAY, BRANDON ([id number]), fashion editor TRIXIE LAMBERT ([id number]) on 06/26/2018 1:07:43 PM Referred By: COREEN Confirmed By:BRANDON HANNAH MD
[2018-06-24 01:04] VITALS: BP 146/76; PULSE 100; RESP 18; TEMP 36.7; O2SAT 99
[2018-06-24] MEDS: Ondansetron 4 MG/2 ML Vial IV (01:23)
[2018-06-24] MEDS: 0.9% Normal Saline 1,000 ML 1000 ML IV (01:23)
[2018-06-24 01:31] LABS: Absolute Lymphocyte Count 1.94 X10^3/ul (0.83-4.51); Absolute Neutrophil Count 7.1 X10^3/uL (2.0-7.7); Basophil# 0.03 X10^3/uL; Basophil% 0.3 % (0-1); Eosinophil# 0.22 X10^3/uL; Eosinophils% 2.2 % (0-5); Hematocrit 39.7 % (37-47); Hemoglobin 12.9 g/dl (12.0-15.0); Lymphocyte # 1.94 X10^3/ul (4.0); Mean Corp Hgb Conc 32.5 g/gl (32-36); Mean Corpuscular Hgb 28.2 pg (27.0-32.0); Mean Corpuscular Volume 86.7 fL (81-99); Mean Platelet Vol. 10.2 fl (6.2-12.0); Monocyte# 0.85 X10^3/uL; Monocyte% 8.3 % (0-10); Neutrophil # 7.13 X10^3/uL (2.7-7.7); Neutrophil % 69.9 % (47-70); Platelet Count 219 K/mm3 (150-450); RBC Distribution Width CV 14.1 % (11.6-14.6); RBC Distribution Width SD 43.5 fl (35.1-43.9); Red Blood Count 4.58 M/mm3 (4.2-5.4); White Blood Count 10.2 K/mm3 (4.4-11.0)
[2018-06-24 01:32] LABS: POSITIVE COUNT NO; POSITIVE DIFFERENTIAL NO; POSITIVE MORPHOLOGY NO
[2018-06-24 01:33] LABS: AST(SGOT) 19 U/L (15-37); Alanine Aminotransfer ALT/SGPT 23 U/L (13-56); Albumin, Serum 3.7 g/dL (3.2-5.0); Alkaline Phosphatase 96 U/L (45-117); Anion Gap 10 (5-15); BUN 15 mg/dL (7-18); BUN/Creat Ratio 22.3 RATIO (10-20); Chloride 102 mmol/L (98-107); Creatinine, Serum 0.67 mg/dL (0.55-1.02); EST Glomerular Filtration Rate 93 mL/min (>60); Est Glom Filt Rate - Afr Amer 112 mL/min (>60); Estimated Creatinine Clearance 41.19 ml/min; Globulin 3.7 g/dL (2.2-4.2); Glucose 131 mg/dL (74-106); Lipase 63 U/L (73-393); Potassium 3.7 mmol/L (3.5-5.1); Protein, Total 7.4 g/dL (6.4-8.2); Sodium Level 136 mmol/L (136-145)
--- NOTE | 2018-06-24 01:56 | ED.DCSUM_ITS ---
- ER Visit Summary Date of Service: 06/24/18 Chief Complaint: Nausea vomiting and diarrhea History of Present Illness: The patient is a 67 F who presents with nausea vomiting and diarrhea. She developed severe watery diarrhea about 3 hours ago. She recently had a STEMI and underwent cardiac catheterization with stent. She was started on multiple new medications. She states the medications have been causing some nausea. She was feeling nauseated after taking multiple medications and then she took her potassium chloride and vomited one time. No fevers no pain. No chest pain or shortness of breath. Physical Examination: Afebrile initial heart rate 100 Heart regular rhythm slightly tachycardic Lungs are clear Abdomen is soft, nontender, nondistended Alert Test Results: EKG shows sinus rhythm at a rate of 105. Labs unremarkable. Emergency Department Course and Treatment: I do not believe this is related to her cardiac disease but likely is related to multiple new medications versus onset of a viral syndrome. She was treated here with IV fluids and Zofran. She states she feels much better on reevaluation. She still has no pain. She understands to return for new or worsening symptoms and was discharged home. She was advised to take her medications with food. Treatment Plan: [] Disposition: Discharge Impression: Vomiting Diarrhea This note was generated with [employer] dictation software. It may contain incorrect words, spelling, and punctuation that were not noted in review of the chart prior to signing ED Disposition - Plan for ED Patient: Chief Complaint: Nausea/Vomiting/Diarrhea Referrals: Mikael Ramires DO [Primary Care Provider] -
--- NOTE | 2018-06-24 01:56 | ED.DEP ---
ED Disposition - Plan for ED Patient: Chief Complaint: Nausea/Vomiting/Diarrhea Instructions: ED Vomiting Diarrhea Nonspecific Ad Referrals: Mikael Ramires DO [Primary Care Provider] -
== END 2018-06-24 02:16 | disposition home or self-care (01) ==
PROVIDERS: Emergency Provider Emergency Medicine; Family Provider Family Medicine; PCP Family Medicine
DX: R11.2 Nausea with vomiting, unspecified (principal); R19.7 Diarrhea, unspecified; I25.10 Atherosclerotic heart disease of native coronary artery without angina pectoris; I25.2 Old myocardial infarction; I10 Essential (primary) hypertension; E03.9 Hypothyroidism, unspecified; K21.9 Gastro-esophageal reflux disease without esophagitis; Z95.5 Presence of coronary angioplasty implant and graft; Z79.82 Long term (current) use of aspirin; Z79.899 Other long term (current) drug therapy
CPT/HCPCS: 80053; 83690; 85025; 93005; 96361; 96374; 99285; J7030; A4216; J2405

== ENCOUNTER → 2018-07-12 13:25 | Outpatient (CLI) | payer MEDICARE, SELFPAY ==
[2018-06-21 08:53] VITALS: BMI 38.3
[2018-07-03 15:04] VITALS: BMI 36.2
--- NOTE | 2018-07-12 13:28 | STE_ITS ---
Reason For Study: ASHD/CAD Stress Results Protocol: Dobutamine Protocol Maximum Predicted HR: 153 bpm Target HR: 130 bpm % Maximum Predicted HR: 91 % DurationHeart Rate Stage (mm:ss) (bpm) BP Dose BASELINE 95 128/84 STAGE 1 3:00 107 130/7310.00 STAGE 2 2:23 139 138/7320.00 RECOVERY 100 131/56 Stress Duration: 5:23 mm:ss Maximum Stress HR: 139 bpm Baseline Echocardiogram Findings The estimated ejection fraction is 65 %. Stress Echo Wall motion Data Resting WM Intermediate WM Stress WM Resting Wall Motion No regional wall motion abnormalities noted. EKG Data Normal intervals are noted. The patient was titrated from 10 mcg to a maximum of 20 mcg of dobutamine during the stress. The maximum heart rate attained was 146 beats per minute. This was 95% of maximum predicted heart rate. During dobutamine infusion, there were no ST or T wave changes noted to suggest ischemia. No clinical angina was noted. Interpretation Summary The estimated ejection fraction is 65 %. The patient was titrated from 10 mcg to a maximum of 20 mcg of dobutamine during the stress. Normal adequate dobutamine echocardiogram. Negative for ischemia by EKG and echocardiographic criteria. No anginal symptoms noted. Rare PVC noted. Appropriate blood pressure response to dobutamine. Final LVEF is 75%. Test terminated due to the attainment of target heart rate. No complications. Ordering Physician: Artur Kingston Referring Physician: Artur Kingston Performed By: Hodan Jeong RDCS
--- OUTSIDE RECORDS SUMMARY | 2018-09-16 10:04 | XMS RPT_ITS ---
:1950 Author Organization [place] Support Name Relationship Address Phone R Unavailable Unavailable Unavailable OCTAVIOCHERYLFRANCIS ARNOLD Unavailable [address] + [place] [address] UNRULYBRODIE Unavailable Unavailable + [place], [place] R Unavailable Unavailable Unavailable OCTAVIOCHERYLFRANCIS ARNOLD Unavailable [address] + [place] [address] ABDIRIZAKBRODIE ARNOLD Unavailable Unavailable + [place] R Unavailable Unavailable Unavailable ABDIRIZAKFRANCIS ARNOLD Unavailable [address] + [place] [address] ABDIRIZAKBRODIE ARNOLD Unavailable Unavailable + [place] R Unavailable Unavailable Unavailable FRANCIS BELTRAN Unavailable [address] + [place] [address] R Unavailable Unavailable Unavailable ABDIRIZAKFRANCIS ARNOLD Unavailable [address] + [place] [address] R Unavailable Unavailable Unavailable UNRULY FRANCIS Unavailable [address] + [place] [address] R Unavailable Unavailable Unavailable ABDIRIZAKFRANCIS ARNOLD Unavailable [address] + [place] [address] R Unavailable Unavailable Unavailable ABDIRIZAKFRANCIS ARNOLD Unavailable [address] + [place] [address] R Unavailable Unavailable Unavailable UNRULY FRANCIS Unavailable [address] + [place] [address] R Unavailable Unavailable Unavailable UNRULY FRANCIS Unavailable [address] + [place] [address] R Unavailable Unavailable Unavailable UNRULY FRANCIS Unavailable [address] + [place] [address] R Unavailable Unavailable Unavailable FRANCIS BELTRAN Unavailable [address] + [place] [address] R Unavailable Unavailable Unavailable FRANCIS BELTRAN Unavailable [address] + [place] [address] BRODIE BELTRAN Unavailable Unavailable + THERESA WQuique R Unavailable Unavailable Unavailable FRANCIS BELTRAN Unavailable [address] + [place] [address] R Unavailable Unavailable Unavailable FRANCIS BELTRAN Unavailable [address] + [place] [address] R Unavailable Unavailable Unavailable FRANCIS BELTRAN Unavailable [address] + [place] [address] R Unavailable Unavailable Unavailable FRANCIS BELTRAN Unavailable [address] + [place] [address] R Unavailable Unavailable Unavailable FRANCIS BELTRAN Unavailable [address] + [place] [address] R Unavailable Unavailable Unavailable FRANCIS BELTRAN Unavailable [address] + [place] [address] Care Team Providers Name Role Phone [facility] Unavailable Andrew Anaya Referring Unavailable Andrew Anaya Admitting Unavailable Andrew Anaya Attending Unavailable Andrew Anaya Admitting Unavailable Maurilio Martins Attending Unavailable Andrew Anaya Referring Unavailable [facility] Primary Care Unavailable Andrew Anaya Consulting Unavailable Andrew Anaya Admitting Unavailable AshelfJohnie sandovalasem Attending Unavailable Andrew Anaya Referring Unavailable [facility] Primary Care Unavailable Andrew Anaya Consulting Unavailable Andrew Anaya Admitting Unavailable Feliciano Hannah Attending Unavailable Andrew Anaya Referring Unavailable [facility] Primary Care Unavailable Andrew Anaya Consulting Unavailable Andrew Anaya Admitting Unavailable Maurilio Martins Attending Unavailable Andrew Anaya Referring Unavailable [facility] Primary Care Unavailable Andrew Anaya Consulting Unavailable Andrew Anaya Admitting Unavailable Feliciano Hannah Attending Unavailable Andrew Anaya Referring Unavailable Keyla, Mikael Primary Care Unavailable Andrew Anaya Consulting Unavailable Keyla, Mikael Primary Care Unavailable Oli Bansal Attending Unavailable Roof, Artur H Attending Unavailable Keyla, Mikael Referring Unavailable Andrew Anaya Attending Unavailable Ashelfah, Johnieasem Referring Unavailable Roof, Artur H Attending Unavailable Roof, Artur H Referring Unavailable Keyla, Mikael Primary Care Unavailable Andrew Anaya Attending Unavailable Andrew Anaya Referring Unavailable Anaya, Andrew Attending Unavailable Roof, Artur H Referring Unavailable Keyla, Mikael Primary Care Unavailable Roof, Artur H Consulting Unavailable Andrew Anaya Attending Unavailable Timmy, Andrew Referring Unavailable Keyla, Mikael Primary Care Unavailable Prah, Raj Attending Unavailable Prah, Raj Referring Unavailable Keyla, Mikael Primary Care Unavailable Prah, Raj Attending Unavailable Keyla, Mikael Primary Care Unavailable Prah, Raj Consulting Unavailable Keyla, Mikael Attending Unavailable Keyla, Mikael Primary Care Unavailable ChicorelLouisa dyson Attending Unavailable Keyla, Mikael Referring Unavailable Keyla, Mikael Primary Care Unavailable Keyla, Mikael Attending Unavailable Keyla, Mikael Primary Care Unavailable Angus Moses Attending Unavailable Keyla, Mikael Referring Unavailable PROBLEMS PROBLEMS DATE TYPE CONDITION / CODE ATTENDING STATUS SOURCE Unknown Z95.5 - Presence of Timmy Active [place] 9 coronary angioplasty [facility] implant and graft / Hospital Z95.5(ICD-10) Repository Unknown I25.10 - Atherosclerotic Timmy Active Hoffman 9 heart disease of [place] [facility] coronary artery without Hospital angina pectoris / Repository I25.10(ICD-10) Unknown I25.9 - Chronic ischemic Timmy Active [place] 8 heart disease, unspecified [facility] / I25.9(ICD-10) Hospital Repository Unknown I21.3 - ST elevation Timmy, Active Hoffman 9 (STEMI) myocardial [facility] infarction of unspecified Hospital site / I21.3(ICD-10) Repository Unknown E78.5 - Hyperlipidemia, Keyla, Active [place] 8 unspecified / E78.5(ICD-10) [facility] Hospital Repository Unknown M17.0 - Bilateral primary Arabella, Active [place] 8 osteoarthritis of knee / [facility] M17.0(ICD-10) Hospital Repository Unknown 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, 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 / [facility] D89.0(ICD-10) Hospital Repository Unknown C88.0 - Waldenstrom Keyla, Active Sunday 8 macroglobulinemia / [facility] C88.0(ICD-10) Hospital Repository PROCEDURES PROCEDURES No Procedure Records FoundRESULTS RESULTS CR - HISTORY AND Observed: 07/21/2018 Status: F Source: [place] PHYSICAL 9:08 AM [facility] REPOSITORY [facility] Cardiac Rehab [address] [place] [address] CR - History AND Physical MR#: [id number] Acct: [id number] Name: CHELSEY BELTRAN Rep #: [id number] : 1950 68 From: Jones Mcgrath 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 ANDREW ANAYA Primary Diagnosis: PCI W/STENT PLACEMENT - History of Present Cardiac Event Onset Date: Enter Onset Date of cardiac illnesses in Comment field below Acute Myocardial Infarction within 12 months:: Yes - STEMI 06/20/2018 PTCA or coronary stenting:: Yes - 06/20/2018 Type of Symptoms:: WENT FOR [employer] THOUGH IT WAS JUST INDIGESTION AND THEN ARM STARTED HURTING. THOUGHT ORIGINALLY JUST A FLARE UP OF HER GERD. Interventions with present event:: HEART CATH Were there any complications?: NONE, JUST FELT LIKE HIT BY STEAM ENGINE, VERY FATIGUED - Medications Home Medications: Ambulatory Orders Medication Instructions Recorded Hydrochlorothiazide [Hctz] 12.5 mg PO DAILY 12/31/16 - Allergies Allergies/Adverse Reactions: Allergies clarithromycin [From Biaxin] Allergy (Verified 07/03/18 15:09) Rash sulfamethoxazole [From Bactrim] Allergy (Verified 07/03/18 15:09) Rash trimethoprim [From Bactrim] Allergy (Verified 07/03/18 15:09) Rash codeine Adverse Reaction (Verified 07/03/18 15:09) Upset Stomach Penicillins Adverse Reaction (Verified 07/03/18 15:09) Other - Sleep Disorder Evaluation Hx of Sleep Apnea: No Do you snore loudly (louder than talking or can be heard through closed doors)?: Yes - CLAIMS SHE SNORES Do you often feel tired/ fatigued/ sleepy during daytime?: No Has anyone observed you stop breathing during sleep?: No History of Hypertension (for STOP score): Yes STOP Results: Positive Advanced Directives - Advanced Directives Power of Chief Analytics Officer: Yes Living Will: Yes Advance Directives Information Provided: No Advance Directives on File: No - bow string maker HAS COPIES, BUT CAN'T REMEMBER IF THEY WERE PUT ON FILE DNR Order?:: No - MOLST See MOLST form: No Past Medical History - Past Medical Illness Medical History: Past Medical History (Last Updated 06/21/18 @ 15:50 by Liana Guadalupe) Atherosclerotic heart disease of [place] coronary artery without angina pectoris (Chronic) I25.10 STEMI, ALLIE to mid lad (2.5 X 20 [employer]), ALLIE to proximal Diagonal #1 (2.25 X 16 [employer]) per Dr. 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 Anaya @ [facility] History of delivery Z98.891 History of dilatation and curettage Z98.890 Hx of breast biopsy Z98.890 Hx of tonsillectomy Z98.890, Z90.89 Surgical History: tonsillectomy, - - section. - Family History Summary Family History: Family History (Last Updated 07/03/18 @ 15:12 by Diane Bassett) Mother Cancer skin Anemia Father Cancer Heart disease Social History - Smoking History Smoking Status: Never smoker Hx Tobacco Use: No Hx Smoking Exposure: No - Alcohol Use Alcohol Usage: No - Substance Abuse Hx Substance Use: No - Occupation Occupation (List type of work in comments):: Retired - Hobbies, Recreation, Social Activities Hobbies: Sewing - ENMA, CROSS STITCH, NEEDLE POINT, PINTREST, ADULT COLORING, READING , Other Recreational Activities: I am able to engage in all my recreational activities, I am able to engage in most, but not all activities Social Environment - Status Marital Status: - Current Living Arrangements Living Environment:: Spouse - Children How many children do you have?: 1 - SON AGE 30; 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 Left click = Reports ([place]) Review of Present Symptoms: Reports: Shortness of Breath at Rest, Shortness of Breath with Exertion - sometimes when the asthma starts to flare up,, Wound Healing, Fatigue - improving, Heart Arrhythmia/Irregularities - history of PVCs., Appetite - Normal, Appetite - Special Diet - no salt, low fat, low cholesterol. Denies: Dizziness/Lightheadedness - Pain Is Patient Pain Free?: No Pain Location: none - previous discomffort in the knees has improved since lossing about 10 pounds recently. Risk Factor Assessment - Chief Complaint Chief Complaint: Patient is a 67 yr old female of Dr. Anaya who was reffered to CR following a recent STEMI and PCI w/coronary stent. She has a foolow up appointment in October [address] Anaya following her CR program. - Vital Signs Temperature: 98.7 F Respiratory Rate: 14 Pulse Ox: 97 Blood Pressure: 112/58 Nailbeds:: pink - Pulse Pulse Rate: 92 Pulse Rhythm: Regular - Hypertension How long have you been treated?: 112/58 Blood Pressure Sitting - Left Arm: 112/58 - Blood Cholesterol/Lipids Total Cholesterol (mg/dL) Goal = less than 200 mg/dL: 172 HDL Cholesterol (mg/dL) Goal = less than 40 mg/dL: 39 LDL Cholesterol (mg/dL) Goal = less than 70 mg/dL: 97 Triglycerides (mg/dL) Goal = less than 150 mg/dL: 179 - Diabetes Nutrition Referral for Diabetes: No - Obesity Height: 5 ft 1 in Weight:: 192 lb Weight in Pounds: 192.0 lbs Weight Source: Standing Scale Body Mass Index (BMI): 36.2 Desired Body Weight: 168 Nutritional Referral for Obesity: Yes - Physical Inactivity Physical Inactivity: None - Risk Stratification Risk Guidelines: Lowest Risk: Risk Factor for Smoking, Risk Factor for Diabetes, Risk Factor for Hypertension, Risk Factor for Depression, Moderate Risk: Risk Factor for Dyslipidemia, Risk Factor for Sedentary Lifestyle - does climb stair to TV room in basement frequently, Highest Risk: Risk Factor for Obesity - For Smoking Smoking Risk Guidelines: Smoking Low Risk: None or quit greater than 6 months ago. Smoking Moderate Risk: Smoker or quit 6 months or less ago. Smoking High Risk: Smoker - For Dyslipidemia Dyslipidemia Risk Guidelines: Low Risk: Moderate Risk: High Risk: 15-25% fat 25.1-29% fat >/= 30% fat. <7% sat fat 7-9% sat fat >9% sat fat. <150 mg chol 150-299 mg chol >/= 300 mg chol. LDL <100 LDL 100-129 LDL >/= 130. Chol/HDL ratio <5.0 Chol/HDL ratio 5.0-6.0 Chol/HDL ratio >6.0. Triglycerides <100 Triglycerides 100-149 Triglycerides >/= 150 - For Diabetes Mellitus Diabetes Risk Guidelines: Diabetes Low Risk: HgA1c <6.5% and/or FBG <120. Diabetes Moderate Risk: HgA1c 6.6-7.9% and/or FBG 120- 180. Diabetes High Risk: HgA1c >/= 8% and/or FBG >180 - For Obesity/Overweight Obesity/Overweight Risk Guidelines: Obesity Low Risk: BMI <25.0. Obesity Moderate Risk: BMI 25-29.9. Obesity High Risk: BMI >/= 30.0 - For Hypertension Hypertension Risk Guidelines: Hypertension Low Risk: Systolic <120 and Diastolic <80. Hypertension Moderate Risk: Systolic 120-139 and Diastolic 80-89. Hypertension High Risk: Systolic >/= 140 and Diastolic >/= 90 - For Sedentary Lifestyle Sedentary Lifestyle Risk Guidelines: Sedentary Lifestyle Low Risk: >/= 1,500 kcal/week. Sedentary Lifestyle Moderate Risk: 700-1,499 kcal/week. Sedentary Lifestyle High Risk: < 700 kcal/week - For Depression Depression Risk Guidelines: Depression Low Risk: Not clinically depressed. Depression Moderate Risk: Mildly depressed. Depression High Risk: Clinically depressed - Family History Family History: Family History (Last Updated 07/03/18 @ 15:12 by Diane Bassett) Mother Cancer Anemia Father Cancer Heart disease Motivation - Motivation to Participate On a scale of 1 to 10, how prepared are you to commit to attending program?: 10 What do you see as barriers to successfully being able to complete the program?: asthma What do you see as the benefits of succesfully completing the program? In other words, what do you hope to get out of participating in the program?: no down sides to this program, it's all positive Are there issues you are dealing with that will interfere with completing the program?: none; recent onset of cough that started on Tuesday/Tuesday dry persistent Do you have a spouse or signficant other, family or friends who will help support you to complete the program?: yes 07/20/18 1255 <Electronically signed by Jones Mcgrath CRT, RCP, BS> Date Jones Mcgrath CRT, RCP, BS Outcome assessment reviewed. Exercise plan approved as documented. Treatment plan and goals support patient needs/abilities. Continue with current plan. I certify the patient demonstrates improvement and remains willing and capable of participation. the patient continues to benefit from cardiac rehab services/training. The patient may continue at current intensity, endurance and modality and progress per protocol. 07/21/18 0908 <Electronically signed by Andrew Anaya MD> Cosigner Signature: Date Andrew Anaya MD CC: Signed STRESS TEST ECHO W/O Observed: 07/12/2018 Status: F Source: [place] CONTRAST 3:40 PM [facility] REPOSITORY [facility] Cardiovascular Services [address] [address] Stress Test Echo w/o Contrast MR#: [id number] Acct: [id number] Name: CHELSEY BELTRAN Rep #: [id number] : 1950 67 From: Andrew Anaya MD Primary Care: Mikael Ramires DO Status: REG CLI Ordering Dr: Artur Kingston JUDGE CLERK-C Sex: F C Reason For Study: ASHD/CAD Stress Results Protocol: Dobutamine Protocol Maximum Predicted HR: 153 bpm Target HR: 130 bpm % Maximum Predicted HR: 91 % DurationHeart Rate Stage (mm:ss) (bpm) BP Dose BASELINE 95 128/84 STAGE 1 3:00 107 130/7310.00 STAGE 2 2:23 139 138/7320.00 RECOVERY 100 131/56 Stress Duration: 5:23 mm:ss Maximum Stress HR: 139 bpm Baseline Echocardiogram Findings The estimated ejection fraction is 65 %. Stress Echo Wall motion Data Resting WM Intermediate WM Stress WM Resting Wall Motion No regional wall motion abnormalities noted. EKG Data Normal intervals are noted. The patient was titrated from 10 mcg to a maximum of 20 mcg of dobutamine during the stress. The maximum heart rate attained was 146 beats per minute. This was 95% of maximum predicted heart rate. During dobutamine infusion, there were no ST or T wave changes noted to suggest ischemia. No clinical angina was noted. Interpretation Summary The estimated ejection fraction is 65 %. The patient was titrated from 10 mcg to a maximum of 20 mcg of dobutamine during the stress. Normal adequate dobutamine echocardiogram. Negative for ischemia by EKG and echocardiographic criteria. No anginal symptoms noted. Rare PVC noted. Appropriate blood pressure response to dobutamine. Final LVEF is 75%. Test terminated due to the attainment of target heart rate. No complications. Ordering Physician: Artur Kingston Referring Physician: Artur Kingston Performed By: Hodan Jeong RDCS 07/12/18 1539 Date Andrew Anaya MD CC: DENILSON Kingston; Mikael Ramires DO Date Dictated: 07/12/18 1358 Date Transcribed: 07/12/18 1540 Pharmacovigilance Scientist: Signed 12 LEAD ELECTROCARDIOGRAM Observed: 06/26/2018 Status: F Source: [place] 1:41 PM [facility] REPOSITORY [facility] Cardiovascular Services [address] [place] [address] 12 Lead EKG 06/22/18 0535 MR#: [id number] Acct: [id number] Name: CHELSEY BELTRAN Rep #: [id number] : 1950 67 From: Feliciano Hannah MD Attending Dr: Andrew Anaya MD Status: DIS IN Ordering Dr: Andrew Anaya MD Date: 06/22/18 Location: [facility] Sex: F C Admitted: 06/20/18 Test Reason : AM EKG Blood Pressure : / mmHG Vent. Rate : 096 BPM Atrial Rate : 096 BPM P-R Int : 138 ms QRS Dur : 074 ms QT Int : 388 ms P-R-T Axes : 035 007 076 degrees QTc Int : 490 ms Normal sinus rhythm T wave abnormality, consider anterior ischemia Prolonged QT Abnormal ECG Confirmed by BRIELLE KAY, FELICIANO ([id number]), editorial writer TRIXIE LAMBERT ([id number]) on 06/26/2018 1:41:42 PM Referred By: Andrew Anaya Confirmed By:FELICIANO HANNAH MD 06/26/18 3470 Date Feliciano Hannah MD CC: Andrew Anaya MD; Mikael Ramires DO Signed 12 LEAD ELECTROCARDIOGRAM Observed: 06/26/2018 Status: F Source: [place] 1:07 PM [facility] REPOSITORY [facility] Cardiovascular Services [address] [place] [address] 12 Lead EKG 06/24/18 0053 MR#: [id number] Acct: [id number] Name: ABDIRIZAKCHELSEY ARNOLD Hubert Rep #: [id number] : 1950 67 From: Feliciano Hannah MD Attending Dr: Status: DEP ER Ordering Dr: Oli Bansal MD Date: 06/24/18 Location: ED Sex: F C Admitted: Test Reason : Blood Pressure : / mmHG Vent. Rate : 105 BPM Atrial Rate : 105 BPM P-R Int : 140 ms QRS Dur : 070 ms QT Int : 336 ms P-R-T Axes : 027 -09 045 degrees QTc Int : 444 ms Sinus tachycardia Low voltage QRS Borderline ECG Confirmed by BRIELLE KAY, FELICIANO ([id number]), editorial writer TRIXIE LAMBERT ([id number]) on 06/26/2018 1:07:43 PM Referred By: COREEN Confirmed By:FELICIANO HANNAH MD 06/26/18 1307 Date Feliciano Hannah MD CC: Oli Bansal MD; Mikael Ramires DO Signed EMERGENCY DEPARTMENT Observed: 06/24/2018 Status: F Source: [place] SUMMARY 1:56 AM [facility] REPOSITORY [facility] Medical Records Department [address] [place] [address] Emergency Department Summary 06/24/18 0154 MR#: [id number] Acct: [id number] Name: ABDIRIZAKCLAYTONCHELSEY Rep #: [id number] : 1950 67 From: Oli Bansal MD PCP: Mikael Ramires DO Status: REG ER - ER Visit Summary Date of Service: 06/24/18 Chief Complaint: Nausea vomiting and diarrhea History of Present Illness: The patient is a 67 F who presents with nausea vomiting and diarrhea. She developed severe watery diarrhea about 3 hours ago. She recently had a STEMI and underwent cardiac catheterization with stent. She was started on multiple new medications. She states the medications have been causing some nausea. She was feeling nauseated after taking multiple medications and then she took her potassium chloride and vomited one time. No fevers no pain. No chest pain or shortness of breath. Physical Examination: Afebrile initial heart rate 100 Heart regular rhythm slightly tachycardic Lungs are clear Abdomen is soft, nontender, nondistended Alert Test Results: EKG shows sinus rhythm at a rate of 105. Labs unremarkable. Emergency Department Course and Treatment: I do not believe this is related to her cardiac disease but likely is related to multiple new medications versus onset of a viral syndrome. She was treated here with IV fluids and Zofran. She states she feels much better on reevaluation. She still has no pain. She understands to return for new or worsening symptoms and was discharged home. She was advised to take her medications with food. Treatment Plan: [] Disposition: Discharge Impression: Vomiting Diarrhea This note was generated with [employer] dictation software. It may contain incorrect words, spelling, and punctuation that were not noted in review of the chart prior to signing ED Disposition - Plan for ED Patient: Chief Complaint: Nausea/Vomiting/Diarrhea Referrals: Mikael Ramires, DO [Primary Care Provider] - What to do if you have Problems For any increased pain, shortness of breath, bleeding, nausea or vomiting, chest pain, or any unexpected problems, contact your Primary Care Provider. Call [facility] ([phone]) or report to the closest Emergency Room. Call 911 if necessary. 06/24/18 0156 <Electronically signed by Oli Bansal MD> Date Oli Bansal MD Cosigner Signature (If Indicated): Date CC: Mikael Ramires DO DISCHARGE INSTRUCTION Observed: 06/24/2018 Status: F Source: [place] 1:56 AM [facility] REPOSITORY [facility] Medical Records Department [address] [place] [address] Discharge Instruction 06/24/18155 MR#: [id number] Acct: [id number] Name: CHELSEY BELTRAN Rep #: [id number] : 1950 67 From: Oli Bansal MD PCP: Mikael Ramires DO Status: REG ER ED Disposition - Plan for ED Patient: Chief Complaint: Nausea/Vomiting/Diarrhea Instructions: ED Vomiting Diarrhea Nonspecific Ad Referrals: Mikael Ramires DO [Primary Care Provider] - What to do if you have Problems For any increased pain, shortness of breath, bleeding, nausea or vomiting, chest pain, or any unexpected problems, contact your Primary Care Provider. Call [facility] ([phone]) or report to the closest Emergency Room. Call 911 if necessary. 06/24/18155 <Electronically signed by Oli Bansal MD> Date Oli Bansal MD Cosigner Signature (If Indicated): Date CC: Mikael Ramires DO CBC W/DIFF, AUTOMATED Collected: 06/24/2018 Status: F Source: [place] 1:05 AM [facility] REPOSITORY TYPE CODE TESTS RESULT OUT OF RANGE REFERENCE UNITS LAB L100.1000 4.4-11.0 K/mm3 Normal WBC 10.2 LAB L100.1200 4.2-5.4 M/mm3 Normal RBC 4.58 LAB L100.1300 12.0-15.0 g/dl Normal HGB 12.9 LAB L100.1400 37-47 % Normal HCT 39.7 LAB L100.1500 81-99 fL Normal MCV 86.7 LAB L100.1600 27.0-32.0 pg Normal MCH 28.2 LAB L100.1700 32-36 g/gl Normal MCHC 32.5 LAB L100.1810 11.6-14.6 % Normal RDW CV 14.1 LAB L100.1820 35.1-43.9 fl Normal RDW SD 43.5 LAB L100.1900 150-450 K/mm3 Normal PLT 219 LAB L100.2000 6.2-12.0 fl Normal MPV 10.2 LAB L100.2100 47-70 % Normal NEUT% 69.9 LAB L100.2200 19-41 % Normal LY% 19.0 LAB L100.2300 0-10 % Normal MONO% 8.3 LAB L100.2400 0-5 % Normal EO% 2.2 LAB L100.2500 0-1 % Normal BASO% 0.3 LAB L100.2550 0.0-0.9 % Normal IM GRAN % 0.300 Result Comment: IG% - Immature Granulocytes (promyelocytes, myelocytes and metamyelocytes) > 1% indicates that a LEFT SHIFT is Present. LAB L100.2620 2.0-7.7 X10 3/uL Normal Absolute Neut 7.1 LAB L100.2720 0.83-4.51 X10 3/ul Normal Absolute Lymph 1.94 Performed By: #### L100.0100 #### [facility] Laboratory [address] [place], [place], [address] COMPREHENSIVE METABOLIC Collected: 06/24/2018 Status: F Source: [facility] 1:05 AM [facility] REPOSITORY TYPE CODE TESTS RESULT OUT OF RANGE REFERENCE UNITS LAB L501.0100 74-106 mg/dL High GLU 131 Result Comment: Fasting Glucose result greater than or equal to 126 mg/dL suggests DIABETES MELLITUS per A.D.A. criteria. Please note revised GLUCOSE reference range effective 2017. LAB L501.1000 7-18 mg/dL Normal BUN 15 LAB L501.1100 0.55-1.02 mg/dL Normal CREAT,SERUM 0.67 Result Comment: The validity of the calculated GFR AND GFRAA in patients over 70 years has not been determined. Clinical correlation is essential. LAB L501.1110 >60 mL/min Normal EST GFR 93 Result Comment: Non- GFR Calc LAB L501.1115 >60 mL/min Normal EST GFR - AA 112 Result Comment: GFR Calc LAB L501.1255 ml/min Normal Estimated CRCL 41.19 LAB L501.1300 10-20 RATIO High BUN/CRE 22.3 LAB L501.1500 6.4-8. g/dL Normal 2 T PROT 7.4 LAB L501.1800 3.2-5. g/dL Normal 0 ALB 3.7 LAB L501.1950 2.2-4. g/dL Normal 2 GLOB 3.7 LAB L501.2000 0.9-2. RATIO Normal 4 A/G 1.0 LAB L501.2200 8.5-10 mg/dL Normal .1 CA 9.0 LAB L501.4100 15-37 U/L Normal AST 19 LAB L501.4305 45-117 U/L Normal ALK P 96 LAB L501.4405 13-56 U/L Normal ALT 23 LAB L501.4600 0.20-1 mg/dL High .00 T BILI 1.10 LAB L501.5300 136-14 mmol/L Normal 5 NA 136 LAB L501.5600 3.5-5. mmol/L Normal 1 K 3.7 LAB L501.5900 98-107 mmol/L Normal CL 102 LAB L501.6100 21.0-3 mmol/L Normal 2.0 CO2 24.0 LAB L501.6200 5-15 Normal GAP 10 Performed By: #### L500.4050, L501.2450 #### [facility] Laboratory [address] [place], [address] LIPASE Collected: 06/24/2018 Status: F Source: SUNDAY 1:05 AM [facility] REPOSITORY TYPE CODE TESTS RESULT OUT OF REFERENCE UNITS RANGE LAB L501.2450 73-393 U/L Low LIPASE 63 Performed By: #### L500.4050, L501.2450 #### [facility] Laboratory [address] [place], [address] 12 LEAD ELECTROCARDIOGRAM Observed: 06/23/2018 Status: F Source: [facility] 3[facility]43 PM [facility] Cardiovascular Services [address] [place] [address] 12 Lead EKG 06/21/18 0543 MR#: [id number] Acct: [id number] Name: CHELSEY BELTRAN Rep #: [id number] : 1950 67 From: Feliciano Hannah MD Attending Dr: Andrew Anaya MD Status: DIS IN Ordering Dr: Jah Hsu MD Date: 06/21/18 Location: [facility] Sex: F C Admitted: 06/20/18 Test Reason : AM EKG Blood Pressure : / mmHG Vent. Rate : 089 BPM Atrial Rate : 089 BPM P-R Int : 148 ms QRS Dur : 076 ms QT Int : 360 ms P-R-T Axes : 028 -01 024 degrees QTc Int : 438 ms Normal sinus rhythm Nonspecific T wave abnormality Abnormal ECG Confirmed by BRIELLE KAY, FELICIANO ([id number]), editorial writer TRIXIE LAMBERT ([id number]) on 06/23/2018 3:42:57 PM Referred By: Andrew Anaya Confirmed By:FELICIANO HANNAH MD 06/23/18 1543 Date Feliciano Hannah MD CC: Andrew Anaya MD; Jah Hsu; Mikael Ramires DO Signed 12 LEAD ELECTROCARDIOGRAM Observed: 06/23/2018 Status: F Source: [place] 3:18 PM [facility] REPOSITORY [facility] Cardiovascular Services [address] [place] [address] 12 Lead EKG 06/20/18 1734 MR#: [id number] Acct: [id number] Name: CHELSEY BELTRAN Rep #: [id number] : 1950 67 From: Feliciano Hannah MD Attending Dr: Andrew Anaya MD Status: DIS IN Ordering Dr: Ramone Ty MD Date: 06/20/18 Location: [facility] Sex: F C Admitted: 06/20/18 Test Reason : CP Blood Pressure : / mmHG Vent. Rate : 075 BPM Atrial Rate : 075 BPM P-R Int : 148 ms QRS Dur : 076 ms QT Int : 372 ms P-R-T Axes : 037 010 005 degrees QTc Int : 415 ms Normal sinus rhythm Low voltage QRS ST elevation consider anterior injury or acute infarct ACUTE KS / STEMI Abnormal ECG Confirmed by BRIELLE KAY, FELICIANO ([id number]), editorial writer TRIXIE LAMBERT ([id number]) on 06/23/2018 3:17:24 PM Referred By: Andrew Anaya Confirmed By:FELICIANO HANNAH MD 06/23/18 1517 Date Feliciano Hannah MD CC: Andrew Anaya MD; Ramone Ty MD; Mikael Ramires DO Signed DISCHARGE SUMMARY Observed: 06/22/2018 Status: F Source: [place] 12:58 PM [facility] REPOSITORY [facility] Medical Records Department [address] [place] [address] Discharge Summary 06/22/18 1254 MR#: [id number] Acct: [id number] Name: CHELSEY BELTRAN Rep #: [id number] : 1950 67 From: Maurilio Martins DO PCP: Mikael Ramires DO Status: ADM IN Y Location: [place] [address] Discharge Date and Diagnosis - Problem List Patient Problems: Active and Suspected Problems (Last Updated 06/21/18 @ 15:50 by Liana Guadalupe) Acute ST elevation myocardial infarction (Acute) Date of Admission: 06/20/18 Date of Discharge: 06/22/18 - Primary Discharge Diagnosis Active and Suspected Problems (Last Updated 06/21/18 @ 15:50 by Liana Guadalupe) Acute ST elevation myocardial infarction (Acute) - Secondary Discharge Diagnosis Chronic Problems (Last Updated 06/21/18 @ 15:50 by Liana Guadalupe) Stented coronary artery (Chronic 06/20/18) STEMI, ALLIE to mid lad (2.5 X 20 Promus Synergy), ALLIE to proximal Diagonal #1 (2.25 X 16 Promus Synergy) per Dr. Anaya @ [facility] Atherosclerotic heart disease of [place] coronary artery without angina pectoris (Chronic) STEMI, ALLIE to mid lad (2.5 X 20 Promus Synergy), ALLIE to proximal Diagonal #1 (2.25 X 16 Promus Synergy) per Dr. Anaya @ [facility] Waldenstrom's macroglobulinemia (Chronic) GERD (gastroesophageal reflux disease) (Chronic) Hypothyroidism (Chronic) M ni re's disease (Chronic) Hospital Course and Treatment Imaging Results: Clinical Impression(s) from Imaging Studies Chest X-Ray 06/20/18 17:44 IMPRESSION: Indeterminate right basilar nodular opacity that is likely secondary to confluence of shadows, consider PA and lateral for further evaluation. Electronically Signed: Stephanie Hickey MD at 18:24 EST Tel , Service support , Operations: None Procedures: 2-D Echocardiogram, Cardiac catheterization Summary of Care Provided: The patient is a 67 year old F presents with chest pain. Found to have a STEMI. 1. STEMI * s/p ALLIE to mid LAD and prox/mid Diag. * on ASA, Ticagrelor, lisinopril carvedilol, and HIS * troponins peaked at 3.910 today. * echo shows an EF of 60% * nitro gtt off since 06/20 * cardiology follow up 2. hypokalemia * resolved Patient Problems: Active and Suspected Problems (Last Updated 06/21/18 @ 15:50 by Liana Guadalupe) Acute ST elevation myocardial infarction (Acute) Subjective: had some CHAMBERS today. - Physical Exam General: Alert, Cooperative, No apparent distress HEENT: Atraumatic, Normocephalic Oral: Moist Mucosa, No Gingival or Mucosal Lesions/ Ulcerations Neck: No Nodes, Thyroid Normal Size and Texture Lungs: Clear to auscultation, Normal air movement, No rhonchi, No wheeze Cardiovascular: Regular rate, Regular Rhythm, Normal S1, Normal S2, No murmurs Abdomen: Bowel Sounds Present, Soft, Non Tender, Non-Distended, No Hepato-splenomegaly Extremities: No edema, No Calf Tenderness Psych/Mental Status: Normal Affect, Appropriate Vital Signs Temp Pulse Resp BP Pulse Ox 36.7 C 98 18 109/63 93 06/22/18 08:35 06/22/18 11:00 06/22/18 08:35 06/22/18 08:35 06/22/18 08:35 Oxygen Flow Rate (L/min) 2 Oxygen Delivery Method Room Air Weight: 91.4 kg Body Mass Index (BMI) 37.5 Intake and Output for Last 24 Hours Intake Total 2872 / 2872 980 / 980 Output Total 2350 / 2350 Balance 522 / 522 980 / 980 Laboratory Tests Past 24 Hrs Sodium 141 Potassium 3.7 Chloride 109 H Carbon Dioxide 22.0 Discharge Diet: Low fat/ Low Cholesterol Discharge Activity: Return to Normal Activity Call your doctor if your incision/area has: Continuous Slow Oozing, Sudden Increased Bleeding, Increased Pain/ Swelling Call your doctor if you observe: Fever of 101 or Higher, Shortness of breath, Chest pain Home Medications: Medications to take at Discharge Hydrochlorothiazide [Hctz] 12.5 mg PO DAILY 12/31/16 Levothyroxine [Synthroid] 50 mcg PO DAILY 12/31/16 Metronidazole 0.75% [Metrogel Vaginal] 70 applic TOPICAL DAILY 12/31/16 Omeprazole 40 mg PO DAILY 12/31/16 Potassium Chloride [Klor-Con M20] 20 meq PO DAILY 12/31/16 Aspirin E.C. [Ecotrin] 81 mg PO DAILY@0800 tablet 06/21/18 Atorvastatin Calcium [Lipitor] 80 mg PO QHS #30 tablet 06/21/18 Carvedilol [Coreg (Beta Leopoldo)] 3.125 mg PO BID #60 tablet 06/21/18 Lisinopril [Zestril] 5 mg PO DAILY #30 tablet 06/21/18 Ticagrelor [Brilinta] 90 mg PO BID #60 tablet 06/21/18 Following Prescrptions Were Given to Patient: Atorvastatin Calcium [Lipitor] 80 mg PO QHS #30 tablet Lisinopril [Zestril] 5 mg PO DAILY #30 tablet Carvedilol [Coreg (Beta Leopoldo)] 3.125 mg PO BID #60 tablet Ticagrelor [Brilinta] 90 mg PO BID #60 tablet Other Amb Orders: Phase II, Outpatient Cardiac Rehab Location: None Selected Primary Care Physician: Mikael Ramires DO [Primary Care Provider] - Please Follow Up With: Artur Kingston JUDGE CLERKMoisesC When: 2 weeks Disposition: Home Minutes spent on discharge:: 28 Patient Condition:: Fair Medical Necessity - Tobacco Use Smoking Status: Never smoker Meaningful Use Info Meaningful Use Diagnoses (Choose all that apply): AMI - AMI Aspirin given w/in 24hrs of arrival?: Yes ASA at discharge?: Yes Statins at discharge?: Yes Olman/ARB at discharge?: Yes Beta Leopoldo at discharge?: Yes Done w/ Acute KS measure.: Yes Code Visit Inpatient E AND M: [id number] Disch Hosp 06/22/18 1258 <Electronically signed by Maurilio Martins DO> Date Maurilio Martins DO Cosigner Signature (if applicable): Date CC: Maurilio Martins DO; Mikael Ramires DO Signed BASIC METABOLIC Collected: 06/22/2018 Status: F Source: SUNDAY PROFILE (BMP) 6:35 AM [facility] REPOSITORY TYPE CODE TESTS RESULT OUT OF RANGE REFERENCE UNITS LAB L501.0100 74-106 mg/dL High GLU 113 Result Comment: Fasting Glucose result from 100 to 125 mg/dL suggests IMPAIRED HOMEOSTASIS per A.D.A. criteria. Please note revised GLUCOSE reference range effective 2017. LAB L501.1000 7-18 mg/dL Normal BUN 13 LAB L501.1100 0.55-1.02 mg/dL Normal CREAT,SERUM 0.66 Result Comment: The validity of the calculated GFR AND GFRAA in patients over 70 years has not been determined. Clinical correlation is essential. LAB L501.1110 >60 mL/min Normal EST GFR 96 Result Comment: Non- GFR Calc LAB L501.1115 >60 mL/min Normal EST GFR - AA 116 Result Comment: GFR Calc LAB L501.1255 ml/min Normal Estimated CRCL 41.19 LAB L501.1300 10-20 RATIO Normal BUN/CRE 19.8 LAB L501.2200 8.5-10 mg/dL Normal .1 CA 8.5 LAB L501.5300 136-14 mmol/L Normal 5 NA 141 LAB L501.5600 3.5-5. mmol/L Normal 1 K 3.7 LAB L501.5900 98-107 mmol/L High CL 109 LAB L501.6100 21.0-3 mmol/L Normal 2.0 CO2 22.0 LAB L501.6200 5-15 Normal GAP 10 Performed By: #### L500.2500 #### [facility] Laboratory [address] [place], [address] DISCHARGE INSTRUCTION Observed: 06/21/2018 Status: F Source: [place] 4:28 PM [facility] REPOSITORY [facility] Medical Records Department [address] [place] [address] Instructions for Home/Discharge Instructions 06/21/18 1627 MR#: [id number] Acct: [id number] Name: CHELSEY BELTRAN Rep #: [id number] : 1950 67 From: Maurilio Martins DO PCP: Mikael Ramires DO Status: ADM IN - Discharge Diagnoses Current Active Problems: Current Active and Chronic Problems (Last Updated 06/21/18 @ 15:50 by Liana Guadalupe) Stented coronary artery (Chronic 06/20/18) STEMI, ALLIE to mid lad (2.5 X 20 Promus Synergy), ALLIE to proximal Diagonal #1 (2.25 X 16 Promus Synergy) per Dr. Anaya @ [facility] Atherosclerotic heart disease of [place] coronary artery without angina pectoris (Chronic) STEMI, ALLIE to mid lad (2.5 X 20 Promus Synergy), ALLIE to proximal Diagonal #1 (2.25 X 16 Promus Synergy) per Dr. Anaya @ [facility] Acute ST elevation myocardial infarction (Acute) Waldenstrom's macroglobulinemia (Chronic) GERD (gastroesophageal reflux disease) (Chronic) Hypothyroidism (Chronic) M ni re's disease (Chronic) You will use the following diet at home:: Cardiac Your food should be the consistency of: Regular Discharge Activity: Return to Normal Activity Call your doctor if your incision/area has: Continuous Slow Oozing, Sudden Increased Bleeding, Increased Pain/ Swelling Call your doctor if you observe: Fever of 101 or Higher, Shortness of breath, Chest pain Allergies/Adverse Reactions: Allergies clarithromycin [From Biaxin] Allergy (Verified 06/20/18 17:29) Rash sulfamethoxazole [From Bactrim] Allergy (Verified 06/20/18 17:29) Rash trimethoprim [From Bactrim] Allergy (Verified 06/20/18 17:29) Rash codeine Adverse Reaction (Verified 06/20/18 17:29) Upset Stomach Penicillins Adverse Reaction (Verified 06/20/18 17:29) Other Medications to take at Discharge Hydrochlorothiazide [Hctz] 12.5 mg PO DAILY 12/31/16 Levothyroxine [Synthroid] 50 mcg PO DAILY 12/31/16 Metronidazole 0.75% [Metrogel Vaginal] 70 applic TOPICAL DAILY 12/31/16 Omeprazole 40 mg PO DAILY 12/31/16 Potassium Chloride [Klor-Con M20] 20 meq PO DAILY 12/31/16 Aspirin E.C. [Ecotrin] 81 mg PO DAILY@0800 tablet 06/21/18 Atorvastatin Calcium [Lipitor] 80 mg PO QHS #30 tablet 06/21/18 Carvedilol [Coreg (Beta Leopoldo)] 3.125 mg PO BID #60 tablet 06/21/18 Lisinopril [Zestril] 5 mg PO DAILY #30 tablet 06/21/18 Ticagrelor [Brilinta] 90 mg PO BID #60 tablet 06/21/18 The following prescriptions were given: Atorvastatin Calcium [Lipitor] 80 mg PO QHS #30 tablet Lisinopril [Zestril] 5 mg PO DAILY #30 tablet Carvedilol [Coreg (Beta Leopoldo)] 3.125 mg PO BID #60 tablet Ticagrelor [Brilinta] 90 mg PO BID #60 tablet Orders to be completed after discharge: Phase II, Outpatient Cardiac Rehab Location: None Selected Primary Care Physician: Mikael Ramires DO [Primary Care Provider] - Test Results: Test results from this visit will be discussed in further detail at your follow-up appointment, if applicable. Please Follow Up With: Artur Kingston NP-C When: 2 weeks Proposed Discharge Date: 06/21/18 06/21/18 0612 <Electronically signed by Maurilio Martins DO> Date Maurilio Eliezer DO CC: Mikael Ramires DO Signed ECHO, COMPLETE W/ Observed: 06/21/2018 Status: F Source: [place] CONTRAST 4:17 PM [facility] REPOSITORY [facility] Cardiovascular Services [address] [place] [address] Echo Complete W/ Contrast 06/21/18 1107 MR#: [id number] Acct: [id number] Name: CHELSEY BELTRAN Rep #: [id number] : 1950 67 From: Feliciano Hannah MD Attending Dr: Andrew Aanya MD Status: ADM IN Ordering Dr: Andrew Anaya MD Date: 06/20/18 Location: ICU Sex: F C Admitted: 06/20/18 Reason For Study: CAD/ASHD Procedure This was a 2D Doppler, Color Flow transthoracic echocardiogram. The study was technically difficult. Contrast injection was performed. Exam performed portable in ICU/CCU. Left Ventricle Normal LV size. Segmental dysfunction with preserved ejection fraction (see wall motion). The estimated ejection fraction is 60 %. Diastolic function is indeterminate. Mid-Anterior : Hypokinetic. Mid-Lateral : Hypokinetic. Mid-inferoseptal : Akinetic. Mid-anteroseptal : Akinetic. Anterior [place] : Akinetic. Inferior [place] : Hypokinetic. Lateral [place] : Akinetic. Septal [place] : Hypokinetic. Right Ventricle Normal RV size. Normal systolic function. Atria Normal left atrium. Normal right atrium. No doppler evidence for ASD. Mitral Valve There is mild mitral annular calcification. Normal mitral valve. Trivial mitral valve insufficiency. Tricuspid Valve Normal tricuspid valve. Trivial tricuspid valve insufficiency. Unable to estimate RV systolic pressure/pulmonary artery pressure due to technically difficult study. Aortic Valve Trisinus/trileaflet aortic valve. Mild focal aortic valve calcification. Pulmonic Valve The pulmonic valve is not well visualized. Trivial pulmonic valve insufficiency. Great Vessels Normal sized aortic root. Pericardium/Pleural No pericardial effusion. Medication Diluted definity 2ml given slow IV push to enhance endocardial definition. MMode/2D Measurements AND Calculations LVIDd: 4.2 cm IVSd: 1.0 cm Ao root diam: 2.3 cm LVIDs: 2.3 cm LVPWd: 0.94 cm RVDd: 2.8 cm FS: 45.5 % LAV(MOD-bp): 31.2 ml LVAd ap4: 27.2 cm2 SV(MOD-sp4): 49.3 ml LAV(MOD-bp) Indexed: 16.5 ml/m2 EDV(MOD-sp4): 82.4 ml LAV(MOD-sp2): 31.4 ml EDV(sp4-el): 87.2 ml LAV(MOD-sp4): 29.5 ml LVAs ap4: 15.7 cm2 ESV(MOD-sp4): 33.2 ml ESV(sp4-el): 34.7 ml EF(MOD-sp4): 59.8 % EF(sp4-el): 60.2 % SV(sp4-el): 52.5 ml LA A4 area: 13.9 cm2 LA dimension(2D): 4.0 cm RA A4 area: 10.1 cm2 Doppler Measurements AND Calculations MV E max gary: 84.4 cm/sec Lat Peak E' Gary: 6.6 cm/sec Med Peak E' Gary: 4.8 cm/sec MV A max gary: 111.1 cm/sec E/E' lat: 12.7 E/E' med: 17.7 MV E/A: 0.76 Ao V2 max: 159.8 cm/sec LV V1 max: 124.7 cm/sec PA V2 max: 104.0 cm/sec Ao max P.2 mmHg LV V1 max P.2 mmHg Ao V2 mean: 117.2 cm/sec Ao mean P.9 mmHg Ao V2 VTI: 31.3 cm Interpretation Summary The study was technically difficult. Contrast injection was performed. Segmental dysfunction with preserved ejection fraction (see wall motion). The estimated ejection fraction is 60 %. There is mild mitral annular calcification. Trivial mitral valve insufficiency. Trivial tricuspid valve insufficiency. Mild focal aortic valve calcification. Trivial pulmonic valve insufficiency. Unable to estimate RV systolic pressure/pulmonary artery pressure due to technically difficult study. Diastolic function is indeterminate. Ordering Physician: Andrew Anaya Referring Physician: Mikael Ramires Performed By: Danika Kingston, DIONICIOCS, RVT 06/21/18 1616 Date Feilciano Hannah MD CC: Andrew Anaya MD; Mikael Ramires DO Date Dictated: 06/21/18 1107 Date Transcribed: 12/26/18 1616 Pharmacovigilance Scientist: Signed HISTORY AND PHYSICAL Observed: 06/21/2018 Status: F Source: [place] EXAM 2:00 PM [facility] REPOSITORY [facility] Medical Records Department [address] [place] [address] History and Physical 06/20/181814 MR#: [id number] Acct: [id number] Name: CHELSEY BELTRAN Rep #: [id number] : 1950 67 From: Jah Hsu MD PCP: Mikael Ramires DO Status: ADM IN Y Location: ICU [id number] Problem List (1) Acute ST elevation myocardial infarction Status: Acute (2) Waldenstrom's macroglobulinemia Status: Chronic (3) GERD (gastroesophageal reflux disease) Status: Chronic (4) Hypothyroidism Status: Chronic (5) M ni re's disease Status: Chronic History of Present Illness Date of Admission: 06/20/18 Chief Complaint: Chest pain. The patient is a 67 year old F with past medical history as mentioned above presented to the emergency room because of chest pain. This afternoon around 1:30 PM, patient was sitting on her chair after she came back from dining at a restaurant, started having sudden onset retrosternal chest pain, pressure-like pain, 10 out of 10 in severity, not radiating, associated with mild dizziness and without aggravating or relieving factors. Her drove her to the emergency department. She denied associated shortness of breath, palpitation, syncope or presyncope. At this time, she is chest pain-free. In the emergency department, EKG was done and revealed ST elevation in leads V1, V2 and V3 consistent with acute anterior ST elevation KS. Her blood pressure was slightly elevated, other vital signs are stable. Her routine blood work was remarkable for mild leukocytosis, otherwise normal. Her EKG revealed ST elevation in leads V1, V2 and V3. Chest x-ray showed no acute findings. She was given full dose of aspirin, received loading dose of IV heparin, started on IV nitroglycerin drip and she received 1 dose of Brilinta. 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 She is being admitted for acute anterior ST elevation KS status post cardiac catheterization with PTCA/ALLIE to mid LAD and proximal diagonal branch. Past Medical History Past Medical History (Chronic Problems): Chronic Problems (Last Reviewed 03/30/18 @ 15:08 by Roxanna Torres) Waldenstrom's macroglobulinemia (Chronic) GERD (gastroesophageal reflux disease) (Chronic) Hypothyroidism (Chronic) M ni re's disease (Chronic) Medical History: Medical History (Last Reviewed 03/30/18 @ 15:08 by Roxanna Torres) Arthritis M19.90 Asthma J45.909 GERD (gastroesophageal reflux disease) K21.9 Hypothyroid E03.9 IBS (irritable bowel syndrome) K58.9 Incontinence R32 Knee pain M25.569 Meniere disease H81.09 Osteopenia M85.80 PVC's (premature ventricular contractions) I49.3 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 Retinal tear of left eye H33.312 SOB (shortness of breath) R06.02 Thyroid disease E07.9 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 Vitamin D deficiency E55.9 Allergies clarithromycin [From Biaxin] Allergy (Verified 06/20/18 17:29) Rash sulfamethoxazole [From Bactrim] Allergy (Verified 06/20/18 17:29) Rash trimethoprim [From Bactrim] Allergy (Verified 06/20/18 17:29) Rash codeine Adverse Reaction (Verified 06/20/18 17:29) Upset Stomach Penicillins Adverse Reaction (Verified 06/20/18 17:29) Other Home Medications: Ambulatory Orders Medication Instructions Recorded Hydrochlorothiazide [Hctz] 12.5 mg PO DAILY 12/31/16 Levothyroxine [Synthroid] 50 mcg PO DAILY 12/31/16 Metronidazole 0.75% [Metrogel] 70 applic TOPICAL DAILY 12/31/16 Surgical History: Surgical History (Last Reviewed 03/30/18 @ 15:08 by Roxanna Torres) History of dilatation and curettage Z98.890 Hx of breast biopsy Z98.890 Hx of tonsillectomy Z98.890, Z90.89 Surgical History: tonsillectomy, - - section. Psychiatric History: No pertinent psych hx VFX ARTIST History: No pertinent VFX ARTIST history Lives: Spouse/ Significant Other Smoking Status: Never smoker Alcohol: None Drugs: None - *Family History Maternal Family History: Family History (Last Reviewed 03/30/18 @ 15:08 by Roxanna Torres) Mother Cancer Lung cancer Hypertension Anemia Father Cancer History Items: No pertinent history Paternal Family History: Family History (Last Reviewed 03/30/18 @ 15:08 by Roxanna Torres) Mother Cancer Lung cancer Hypertension Anemia Father Cancer History Items: No pertinent history Review of Systems Constitutional: Denies: Anorexia, Chills, Fever, Weakness Eyes: Denies: Blurred vision, Double vision, Drainage, Redness HEENT: Denies: Difficulty Hearing, Ear Pain, Eye Pain, Nasal Congestion, Sore Throat Cardiovascular: Reports: Chest Pain, Chest Tightness, Light Headedness. Denies: Chest Pressure, Heaviness, Orthopnea, Paroxysmal Noc. Dyspnea, Syncope Respiratory: Denies: Cough, Pleuritic Pain, Shortness of Breath, Sputum production, Wheezing Gastrointestinal: Denies: Abdominal Pain, Constipation, Diarrhea, Nausea, Vomiting Genitourinary: Denies: Dysuria, Frequency, Hematuria Musculoskeletal: Denies: Arm Pain, Back Pain, Foot Pain Skin: Denies: Dryness, Rash Neurological: Denies: Balance problems, Double vision, Change in Speech, Slurred speech, Confusion, Headaches, Incoordination, Numbness Psychiatric: Denies: Anxiety, Depression VTE Information - Inpt Only VTE Present on Admission: No VTE Mechan Device Prophylaxis: None VTE Pharm Prophylaxis ordered?: No Patient Problems: Active and Suspected Problems (Last Reviewed 03/30/18 @ 15:08 by Roxanna Torres) Acute ST elevation myocardial infarction (Acute) - Physical Exam General: Alert, Oriented x3, Cooperative, No apparent distress HEENT: Atraumatic, PERRLA, EOMI, Normocephalic Oral: Moist Mucosa, No Gingival or Mucosal Lesions/ Ulcerations Neck: Supple, No JVD, Negative Carotid Bruits, Trachea Midline, Thyroid Normal Size and Texture Lungs: Clear to auscultation, Normal air movement, No rhonchi, No wheeze, No rales Cardiovascular: Regular rate, Regular Rhythm, Normal S1, Normal S2, No murmurs, PMI Normal Abdomen: Bowel Sounds Present, Soft, Non Tender, Non-Distended, No Hepato-splenomegaly Extremities: No clubbing, No cyanosis, No edema Skin: No rashes, No breakdown Lymphatic: No Cervical, Supraclavicular, or Inguinal Adenopathy Neurological: Cranial nerves II-XII grossly intact, Motor Exam 5/5 strength throughout Psych/Mental Status: Normal Affect, Appropriate, Alert and oriented to time, place, person, mood and affect Vital Signs Temp Pulse Resp BP Pulse Ox 98.3 F 87 23 H 156/90 H 100 06/20/18 17:30 06/20/18 17:47 06/20/18 17:30 06/20/18 17:47 06/20/18 17:45 Oxygen Flow Rate (L/min) 2 Oxygen Delivery Method Nasal Cannula Weight: 203 lb 14.841 oz Body Mass Index (BMI) 38.5 Laboratory Tests Past 24 Hrs WBC RBC Hgb Hct MCV MCH MCHC RDW RDW Differential Plt Count MPV Immature Gran % (Auto) Neut % (Auto) Lymph % (Auto) Assessment/Plan All Active Problems (Last Reviewed 03/30/18 @ 15:08 by Roxanna Torres) Acute ST elevation myocardial infarction (Acute) This is a 67 years old female patient presented to the emergency room because of chest pain and she was found to have acute anterior ST elevation KS, underwent cardiac catheterization #[address] elevation KS: Status post cardiac catheterization, 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 EKG reviewed, revealed ST elevation in leads V1, V2 and V3. Troponin is negative. Patient received loading dose of heparin IV, Brilinta and started on IV nitroglycerin drip. At this time, she is chest pain-free. Chest x-ray showed no acute findings. Plan: Admit to ICU, critical care monitoring, complete bedrest, serial cardiac enzymes, repeat EKG tomorrow morning, start baby aspirin, Coreg twice daily, Brilinta, Lipitor nightly, fasting lipid profile, repeat CBC and CMP tomorrow morning, cardiology consult, PT OT evaluation and treatment when appropriate. #2 M ni re's disease: Stable, no symptoms, continue HCTZ. #3 hypothyroidism: Continue digoxin, will check TSH. #4 GERD: Continue PPI. #5 bronchial asthma: Clinically stable, pulse ox is maintained on room air. Plan for albuterol as needed, oxygen to maintain pulse ox above 92%. #6 DVT prophylaxis: SCDs. This note was generated with Dragon dictation software. It may contain incorrect words, spelling, and punctuation that were not noted in checking the note before signing. Code Visit Inpatient E AND M: 24860 Init Hosp L3 06/21/18 1400 <Electronically signed by Jah Hsu MD> Date Jah Hsu MD Cosigner Signature: Date (if applicable) CC: Jah Hsu; Mikael Ramires DO Signed BEDSIDE GLUCOSE Collected: 06/21/2018 Status: F Source: [place] 6:54 AM [facility] REPOSITORY TYPE CODE TESTS RESULT OUT OF REFERENCE UNITS RANGE LAB L501.080 70-110 mg/dL High BEDSIDE GLU 117 Result Comment: MANAGEMENT OF PATIENT CARE PER NURSING PROTOCOL Performed By: #### L501.080 #### [facility] Point of Care [address] [place], [place] [address]all [address]. [place], [place] [id number] CBC W/DIFF, AUTOMATED Collected: 06/21/2018 Status: F Source: [place] 4:15 AM [facility] REPOSITORY TYPE CODE TESTS RESULT OUT OF RANGE REFERENCE UNITS LAB L100.1000 4.4-11.0 K/mm3 Normal WBC 8.4 LAB L100.1200 4.2-5.4 M/mm3 Low RBC 4.13 LAB L100.1300 12.0-15.0 g/dl Low HGB 11.6 LAB L100.1400 37-47 % Low HCT 35.9 LAB L100.1500 81-99 fL Normal MCV 86.9 LAB L100.1600 27.0-32.0 pg Normal MCH 28.1 LAB L100.1700 32-36 g/gl Normal MCHC 32.3 LAB L100.1810 11.6-14.6 % Normal RDW CV 13.8 LAB L100.1820 35.1-43.9 fl Normal RDW SD 42.2 LAB L100.1900 150-450 K/mm3 Normal PLT 167 LAB L100.2000 6.2-12.0 fl Normal MPV 10.1 LAB L100.2100 47-70 % Normal NEUT% 68.5 LAB L100.2200 19-41 % Normal LY% 20.6 LAB L100.2300 0-10 % Normal MONO% 9.5 LAB L100.2400 0-5 % Normal EO% 1.1 LAB L100.2500 0-1 % Normal BASO% 0.2 LAB L100.2550 0.0-0.9 % Normal IM GRAN % 0.100 Result Comment: IG% - Immature Granulocytes (promyelocytes, myelocytes and metamyelocytes) > 1% indicates that a LEFT SHIFT is Present. LAB L100.2620 2.0-7.7 X10 3/uL Normal Absolute Neut 5.8 LAB L100.2720 0.83-4.51 X10 3/ul Normal Absolute Lymph 1.74 Performed By: #### L100.0100 #### [facility] [address] [place], [address] COMPREHENSIVE METABOLIC Collected: 06/21/2018 Status: F Source: [facility] 4:15 AM [facility] REPOSITORY TYPE CODE TESTS RESULT OUT OF RANGE REFERENCE UNITS LAB L501.0100 74-106 mg/dL High GLU 115 Result Comment: Fasting Glucose result from 100 to 125 mg/dL suggests IMPAIRED HOMEOSTASIS per A.D.A. criteria. Please note revised GLUCOSE reference range effective 2017. LAB L501.1000 7-18 mg/dL Normal BUN 10 LAB L501.1100 0.55-1.02 mg/dL Normal CREAT,SERUM 0.63 Result Comment: The validity of the calculated GFR AND GFRAA in patients over 70 years has not been determined. Clinical correlation is essential. LAB L501.1110 >60 mL/min Normal EST GFR 100 Result Comment: Non- GFR Calc LAB L501.1115 >60 mL/min Normal EST GFR - AA 120 Result Comment: GFR Calc LAB L501.1255 ml/min Normal Estimated CRCL 41.19 LAB L501.1300 10-20 RATIO Normal BUN/CRE 15.8 LAB L501.1500 6.4-8. g/dL Low 2 T PROT 5.8 LAB L501.1800 3.2-5. g/dL Low 0 ALB 2.9 LAB L501.1950 2.2-4. g/dL Normal 2 GLOB 2.9 LAB L501.2000 0.9-2. RATIO Normal 4 A/G 1.0 LAB L501.2200 8.5-10 mg/dL Low .1 CA 8.4 LAB L501.4100 15-37 U/L Normal AST 28 LAB L501.4305 45-117 U/L Normal ALK P 77 LAB L501.4405 13-56 U/L Normal ALT 19 LAB L501.4600 0.20-1 mg/dL Normal .00 T BILI 0.50 LAB L501.5300 136-14 mmol/L Normal 5 NA 144 LAB L501.5600 3.5-5. mmol/L Low 1 K 3.3 LAB L501.5900 98-107 mmol/L High CL 109 LAB L501.6100 21.0-3 mmol/L Normal 2.0 CO2 24.0 LAB L501.6200 5-15 Normal GAP 11 Performed By: #### L500.4050, L500.4100 #### [facility] [address] [place], [place], [address] LIPID PROFILE Collected: 06/21/2018 Status: F Source: [place] 4:15 AM [facility] REPOSITORY TYPE CODE TESTS RESULT OUT OF RANGE REFERENCE UNITS LAB L501.4900 200 mg/dL Normal CHOL 172 Result Comment: <200 mg/dL Desirable 200-240 mg/dL Borderline >240 mg/dL High Risk LAB L501.5000 mg/dL Normal TRIG 179 Result Comment: The drugs N-Acetylcysteine and Metamizole may falsely depress this assay. Serum Triglycerides Reference Interval Normal <150 mg/dL Borderline high 150 - 199 mg/dL High 200 - 499 mg/dL Very High > or = 500 mg/dL LAB L501.6400 mg/dL Low HDL 39 Result Comment: The drugs N-Acetylcysteine and Metamizole may falsely depress this assay. Reference Range HDL <40 mg/dL Low HDL Cholesterol HDL >or= 60 mg/dL High HDL Cholesterol LAB L501.6500 0-130 mg/dL Normal LDL 97 LAB L501.6600 5-40 mg/dL Normal VLDL 36 Performed By: #### L500.4050, L500.4100 #### [facility] [address] [place], [address] TROPONIN-I Collected: 06/21/2018 Status: F Source: [place] 4:15 AM [facility] REPOSITORY Order Comment: 'TROP' Serial specimen #1, #2 or #3: 3 'TROP' Serial specimen #1, #2, #3, or #4: 3 TYPE CODE TESTS RESULT OUT OF RANGE REFERENCE UNITS LAB L501.4010 <0.045 ng/mL High alert 3.910 TROPONIN-I Result Comment: Critical Result(s) Called at: 05:30:01 06/21/2018 by: Jones Presley RN (ICU). TROPONIN-I EXPECTED VALUES <0.045 Negative 0.045 - 0.590 Consistent with Cardiac Damage > OR = 0.600 Critical Value Not every elevated troponin is indicative of KS. These values should be used with clinical judgement in examining the patient's clinical picture for diagnosis. To establish a diagnosis of KS versus myocardial injury, there must be a demonstrated rise and/or fall in the troponin values, in addition to ischemic symptoms, EKG changes, new regional wall motion abnormality, and/or angiographical evidence. PLEASE NOTE: REFERENCE RANGES EDITED 17 Performed By: #### L501.4010 #### [facility] [address] [place], [address] MAGNESIUM Collected: 06/21/2018 Status: F Source: [place] 4:15 AM [facility] REPOSITORY Order Comment: Comments: add on if able. TYPE CODE TESTS RESULT OUT OF RANGE REFERENCE UNITS LAB L501.5200 1.6-2.6 mg/dL Normal MG 1.8 Performed By: #### L501.5200 #### [facility] [address] [place], [address] TROPONIN-I Collected: 06/21/2018 Status: F Source: [place] 12:50 AM [facility] REPOSITORY Order Comment: 'TROP' Serial specimen #1, #2 or #3: 2 'TROP' Serial specimen #1, #2, #3, or #4: 2 TYPE CODE TESTS RESULT OUT OF RANGE REFERENCE UNITS LAB L501.4010 <0.045 ng/mL High alert 3.490 TROPONIN-I Result Comment: Critical Result(s) Called at: 01:27:12 06/21/2018 by: MINDA TAVERA TO KAILEY FUNG TROPONIN-I EXPECTED VALUES <0.045 Negative 0.045 - 0.590 Consistent with Cardiac Damage > OR = 0.600 Critical Value Not every elevated troponin is indicative of KS. These values should be used with clinical judgement in examining the patient's clinical picture for diagnosis. To establish a diagnosis of KS versus myocardial injury, there must be a demonstrated rise and/or fall in the troponin values, in addition to ischemic symptoms, EKG changes, new regional wall motion abnormality, and/or angiographical evidence. PLEASE NOTE: REFERENCE RANGES EDITED 17 Performed By: #### L501.4010 #### [facility] [address] [place], [address] BEDSIDE GLUCOSE Collected: 06/20/2018 Status: F Source: [place] 9:40 PM [facility] REPOSITORY TYPE CODE TESTS RESULT OUT OF RANGE REFERENCE UNITS LAB L501.080 70-110 mg/dL Normal BEDSIDE GLU 97 Result Comment: MANAGEMENT OF PATIENT CARE PER NURSING PROTOCOL Performed By: #### L501.080 #### [facility] Point of Care [address] [place] [address] EMERGENCY DEPARTMENT Observed: 06/20/2018 Status: F Source: [place] SUMMARY 8:25 PM [facility] REPOSITORY [facility] Medical Records Department [address] [place] [address] Emergency Department Summary 06/20/18 1747 MR#: [id number] Acct: [id number] Name: CHELSEY BELTRAN Hubert Rep #: [id number] : 1950 67 From: Ramone Ty MD PCP: Mikael Ramires DO Status: ADM IN - ER Visit Summary Date of Service: 06/20/18 Chief Complaint: Midsternal chest pain History of Present Illness: The patient is a 67 F history of asthma, arthritis, hypothyroidism and agammaglobulinemia. Patient coming by her . States around 1:30 PM the day she started having midsternal chest pain radiating her right arm. It waxed and waned in intensity. She became diaphoretic with it. She denies any significant shortness of breath. No hemoptysis. No cough. She denies any vomiting diarrhea or fever. She initially thought it was reflux but it has gotten worse and she said she is never had pain this intense with reflux before that is when she decided to come in. She denies any recent travel or surgery. No calf pain or swelling. No hemoptysis. Physical Examination: 67-year-old female. Lying in bed. Initial blood pressure 156/90. Pulse ox 99% on room air no hypoxia. HEENT exam unremarkable atraumatic. Pupils are round reactive light. No facial droop. Normal speech. Neck nontender. No JVD. No lymphadenopathy. Lungs clear to auscultation bilaterally. Heart regular rate and rhythm no murmur. Rate about 80. Chest wall is nontender. Abdomen soft and nontender. Normal bowel sounds no peritoneal signs. No pulsatile mass. Patient is moving all 4 extremities. Equal symmetrical 5 out of [address] aide strength. Equal symmetrical and brisk radial pulses. Calves are nontender without edema or cords. Back is nontender. Neurologically she is awake alert with no focal motor deficits. Test Results: EKG done while was present in the room. Showed a sinus rhythm rate of 75. Anterior ST elevation in leads V1, V2, V3 and upsloping in V4 5 and 6. Consistent with an anterior myocardial infarction. There are inverted T waves in lead III. Soon as I saw the EKG immediately after was done we called a STEMI team. Emergency Department Course and Treatment: I have already spoken to Dr. Destin Anaya on-call for interventional cardiology. Patient has already been given aspirin. We have ordered p.o. Brilinta, nitroglycerin drip and a heparin bolus and drip. He is on his way to the hospital to take the patient for an emergent cardiac catheterization. I have already discussed this with the patient and her . Treatment Plan: Acute KS going to the [facility] for acute cardiac catheterization and intervention if necessary. Disposition: Admission Impression: Acute anterior KS History of agammaglobulinemia Critical care time 30 minutes This note was generated with [employer] software. It may contain incorrect words, spelling, and punctuation that were not noted in review of the chart prior to signing ED Disposition - Plan for ED Patient: Chief Complaint: Chest Pain Referrals: Mikael Ramires, DO [Primary Care Provider] - What to do if you have Problems For any increased pain, shortness of breath, bleeding, nausea or vomiting, chest pain, or any unexpected problems, contact your Primary Care Provider. Call [facility] ([phone]) or report to the closest Emergency Room. Call 911 if necessary. 06/20/182024 <Electronically signed by Ramone Ty MD> Date Ramone Ty MD Cosigner Signature (If Indicated): Date CC: Mikael Ramires DO ACT ACTIVATED CLOTTING Collected: 06/20/2018 Status: F Source: SUNDAY TIME 7:07 PM [facility] REPOSITORY TYPE CODE TESTS RESULT OUT OF RANGE REFERENCE UNITS LAB L9100.0100 74-137 sec High ACTk CLOT 224 TIME Performed By: #### L9100.0100 #### [facility] Point of Care [address] [place], [place] [address] ACT ACTIVATED CLOTTING Collected: 06/20/2018 Status: F Source: [place] TIME 6:16 PM [facility] REPOSITORY TYPE CODE TESTS RESULT OUT OF RANGE REFERENCE UNITS LAB L9100.0100 74-137 sec High ACTk CLOT 175 TIME Performed By: #### L9100.0100 #### [facility] Point of Care [address] [place] [address] PROTHROMBIN TIME W/INR Collected: 06/20/2018 Status: F Source: [place] 5:55 PM [facility] REPOSITORY Order Comment: REDRAW. PREVIOUS SPECIMEN WAS REJECTED FOR TESTING DUE TO HEMOLYSIS. SPECIMEN WAS DISCARDED. 06/20/181752 Aris Malin. TYPE CODE TESTS RESULT OUT OF RANGE REFERENCE UNITS LAB L300.4150 11.7-14.9 SECONDS Normal PROTIME 14.0 LAB L300.4200 Normal INR 1.1 Performed By: #### L300.3900, L300.4310 #### [facility] [address] [place], [address] PARTIAL THROMBOPLAST Collected: 06/20/2018 Status: F Source: [place] TIME 5:55 PM [facility] REPOSITORY Order Comment: REDRAW. PREVIOUS SPECIMEN WAS REJECTED FOR TESTING DUE TO HEMOLYSIS. SPECIMEN WAS DISCARDED. 06/20/18 175 Aris Malin. TYPE CODE TESTS RESULT OUT OF REFERENCE UNITS RANGE LAB L300.4310 24.1-36.2 Seconds High alert PTT 187.9 Result Comment: CRITICAL VALUE VERIFIED. CALLED TO BOBO 06/20/18 7297 Aris Malin. RESULTS READ BACK BY BOBO. Performed By: #### L300.3900, L300.4310 #### [facility] [address], [address] CHEST 1 VIEW Observed: 06/20/2018 Status: F Source: [place] (PORTABLE) 5:45 PM [facility] REPOSITORY [facility] Imaging Services [address] [place] [address] Chest 1 View (Portable) MR#: [id number] Acct: [id number] Name: CHELSEY BELTRAN Rep #: [id number] : 1950 F 67 From: Stephanie Hickey MD PCP: Mikael Ramires DO Status: ADM IN Study: Chest 1 View (Portable) Date of Exam: 06/20/18 Exam# [id number] Ordering Dr: Ramone Ty MD STUDY: X-RAY CHEST REASON FOR EXAM: Female, 67 years old. Chest pain TECHNIQUE: Single frontal view of the chest. COMPARISON: December 31, 2016 FINDINGS: There is an indeterminate right basilar nodular opacity present. There are stable prominent interstitial markings. Normal size heart. Normal mediastinum and estelita. Normal visualized pulmonary arteries. There is atherosclerotic calcification of the aortic arch with tortuosity. Normal visualized thoracic spine. Normal visualized ribs, clavicles, and shoulders. There is no demonstrated abnormality of the visualized soft tissue structures of the upper abdomen. RAD/Chest 1 View (Portable) IMPRESSION: Indeterminate right basilar nodular opacity that is likely secondary to confluence of shadows, consider PA and lateral for further evaluation. Electronically Signed: Stephanie Hickey MD at 18:24 EST Tel , Service support , CC: Ramone Ty MD; Mikael Ramires DO Pharmacovigilance Scientist: Signed CBC W/DIFF, AUTOMATED Collected: 06/20/2018 Status: F Source: [place] 5:33 PM [facility] REPOSITORY TYPE CODE TESTS RESULT OUT OF RANGE REFERENCE UNITS LAB L100.1000 4.4-11.0 K/mm3 High WBC 12.4 LAB L100.1200 4.2-5.4 M/mm3 Normal RBC 4.79 LAB L100.1300 12.0-15.0 g/dl Normal HGB 13.4 LAB L100.1400 37-47 % Normal HCT 42.0 LAB L100.1500 81-99 fL Normal MCV 87.7 LAB L100.1600 27.0-32.0 pg Normal MCH 28.0 LAB L100.1700 32-36 g/gl Low MCHC 31.9 LAB L100.1810 11.6-14.6 % Normal RDW CV 14.1 LAB L100.1820 35.1-43.9 fl High RDW SD 45.0 LAB L100.1900 150-450 K/mm3 Normal PLT 253 LAB L100.2000 6.2-12.0 fl Normal MPV 9.8 LAB L100.2100 47-70 % Normal NEUT% 70.0 LAB L100.2200 19-41 % Normal LY% 21.3 LAB L100.2300 0-10 % Normal MONO% 6.6 LAB L100.2400 0-5 % Normal EO% 1.5 LAB L100.2500 0-1 % Normal BASO% 0.3 LAB L100.2550 0.0-0.9 % Normal IM GRAN % 0.300 Result Comment: IG% - Immature Granulocytes (promyelocytes, myelocytes and metamyelocytes) > 1% indicates that a LEFT SHIFT is Present. LAB L100.2620 2.0-7.7 X10 3/uL High Absolute Neut 8.7 LAB L100.2720 0.83-4.51 X10 3/ul Normal Absolute Lymph 2.64 Performed By: #### L100.0100 #### [facility] [address] [place], [address] BASIC METABOLIC Collected: 06/20/2018 Status: F Source: [place] PROFILE (BMP) 5:33 PM [facility] REPOSITORY TYPE CODE TESTS RESULT OUT OF RANGE REFERENCE UNITS LAB L501.0100 74-106 mg/dL Normal GLU 106 Result Comment: Fasting Glucose result from 100 to 125 mg/dL suggests IMPAIRED HOMEOSTASIS per A.D.A. criteria. Please note revised GLUCOSE reference range effective 2017. LAB L501.1000 7-18 mg/dL Normal BUN 12 LAB L501.1100 0.55-1.02 mg/dL Normal CREAT,SERUM 0.72 Result Comment: The validity of the calculated GFR AND GFRAA in patients over 70 years has not been determined. Clinical correlation is essential. LAB L501.1110 >60 mL/min Normal EST GFR 85 Result Comment: Non- GFR Calc LAB L501.1115 >60 mL/min Normal EST GFR - AA 103 Result Comment: GFR Calc LAB L501.1255 ml/min Normal Estimated CRCL 41.19 LAB L501.1300 10-20 RATIO Normal BUN/CRE 16.6 LAB L501.2200 8.5-10 mg/dL Normal .1 CA 8.9 LAB L501.5300 136-14 mmol/L Normal 5 NA 139 LAB L501.5600 3.5-5. mmol/L Normal 1 K 4.0 Result Comment: Slight Hemolysis, Result may be falsely increased. LAB L501.5900 98-107 mmol/L Normal CL 104 LAB L501.6100 21.0-32.0 mmol/L Normal CO2 26.0 LAB L501.6200 5-15 Normal 9 GAP Performed By: #### L500.2500, L501.4010 #### [facility] [address] [place], [address] TROPONIN-I Collected: 06/20/2018 Status: F Source: [place] 5:33 PM [facility] REPOSITORY TYPE CODE TESTS RESULT OUT OF RANGE REFERENCE UNITS LAB L501.4010 <0.045 ng/mL Normal 0.042 TROPONIN-I Result Comment: TROPONIN-I EXPECTED VALUES <0.045 Negative 0.045 - 0.590 Consistent with Cardiac Damage > OR = 0.600 Critical Value Not every elevated troponin is indicative of KS. These values should be used with clinical judgement in examining the patient's clinical picture for diagnosis. To establish a diagnosis of KS versus myocardial injury, there must be a demonstrated rise and/or fall in the troponin values, in addition to ischemic symptoms, EKG changes, new regional wall motion abnormality, and/or angiographical evidence. PLEASE NOTE: REFERENCE RANGES EDITED 17 Performed By: #### L500.2500, L501.4010 #### [facility] [address] [place], [address] THYROID STIM HORMONE Collected: 06/20/2018 Status: F Source: [place] (TSH) 5:33 PM [facility] REPOSITORY TYPE CODE TESTS RESULT OUT OF RANGE REFERENCE UNITS LAB L501.9520 0.358-3.74 uIU/mL Normal TSH 2.05 Performed By: #### L501.9520 #### [facility] [address] [facility] [address] [place], [address] URGENT CARE VISIT Observed: 03/30/2018 Status: F Source: [place]DAY REPORT 3:14 PM [facility] REPOSITORY [facility] [facility] [address] [place] [address] OFFICE VISIT Date of Service: 03/30/18 MR#: [id number] Acct: [id number] Name: CHELSEY BELTRAN Rep #: [id number] : 1950 Provider: Angus XIAO Age/Sex: 67/F Location: [facility] [place] Status: Signed Intake Vital Signs03/30/18 Height 5 ft 2 in 03/30/18 Weight: 198 lb 03/30/18 Body Mass Index (BMI) 36.2 03/30/18 Blood Pressure 134/88 H 03/30/18 Respiratory Rate 16 Intake Visit Reasons: Urinary tract infection Chief Complaint: dysuria 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 Accompanied by: self Is patient in pain?: No Allergies clarithromycin [From Biaxin] Allergy (Verified 03/30/18 15:08) Rash sulfamethoxazole [From Bactrim] Allergy (Verified 03/30/18 15:08) Rash trimethoprim [From Bactrim] Allergy (Verified 03/30/18 15:08) Rash codeine Adverse Reaction (Verified 03/30/18 15:08) Upset Stomach Penicillins Adverse Reaction (Verified 03/30/18 15:08) Other Medications Hydrochlorothiazide [Hctz] 12.5 mg PO DAILY 12/31/16 [History Confirmed 03/30/18] Levothyroxine [Synthroid] 50 mcg PO DAILY 12/31/16 [History Confirmed 03/30/18] Meclizine HCl [Antivert] 12.5 mg PO DAILY PRN PRN 12/31/16 [History Confirmed 03/30/18] Metronidazole 0.75% [Metrogel] 70 applic TOPICAL DAILY 12/31/16 [History Confirmed 03/30/18] Omeprazole 40 mg PO DAILY 12/31/16 [History Confirmed 03/30/18] Potassium Chloride [Klor-Con M20] 20 meq PO DAILY 12/31/16 [History Confirmed 03/30/18] Propranolol HCl 60 mg PO DAILY 12/31/16 [History Confirmed 03/30/18] nitrofurantoin macrocrystal 100 mg capsule 100 mg PO BID #14 cap 03/30/18 [Rx Confirmed 03/30/18] [facility] Medical History Arthritis (Acute) Asthma (Acute) GERD (gastroesophageal reflux disease) (Acute) Hypothyroid (Acute) IBS (irritable bowel syndrome) (Acute) Incontinence (Acute) Knee pain (Acute) Meniere disease (Acute) Osteopenia (Acute) PVC's (premature ventricular contractions) (Acute) Polyclonal gammopathy (Acute) Retinal tear of left eye (Acute) SOB (shortness of breath) (Acute) Thyroid disease (Acute) Ulnar neuropathy (Acute) Vitamin D deficiency (Acute) Surgical History History of dilatation and curettage (Acute) Hx of breast biopsy (Acute) Hx of tonsillectomy (Acute) Family History Mother Cancer Lung cancer Hypertension Anemia Father Cancer Social History Smoking Status: Never smoker alcohol intake: never HPI HPI Chief Complaint: dysuria Details: CHELSEY BELTRAN, is a 67 F who presents to the office today for initial evaluation approximately 6-day history of dysuria and urinary frequency. Patient notes no complaints of fever, chills, sweats, cough, chest pain/shortness of breath. Patient noted to have a mild right flank pain yesterday which self resolved. She notes taking no ymze-wtb-bivuleb products to assist with her symptoms. She notes no other complaints at this time. ROS Const Constitutional: No other (ROS negative x10 other than as noted above) Exam Const General: cooperative, healthy appearing, no acute distress, comfortable Nutritional Appearance: obese Orientation: alert, awake, oriented x3 HENMT Head: normal to inspection, normocephalic, atraumatic Neck Neck: normal visual inspection, full ROM Lymphatic: no lymphadenopathy noted Chest Chest palpation AND inspection: normal inspection of the chest Resp Effort AND Inspection: normal respiratory effort, able to speak in complete sentences, symmetric chest movement, no cough Auscultation: Bilateral: Clear to Auscultation Cardio Palpation: normal PMI Rate: regular rate Rhythm: regular rhythm Heart Sounds: S1 normal, S2 normal, no gallops, no murmurs, no rubs Pulses: radial pulses present GI Inspection: normal to inspection Palpation: soft General: No CVA tenderness, other (See urinalysis dip results) Skin General: no rashes or lesions noted Neuro General: alert, awake, oriented x3, gait normal Cognition: normal cognition Speech: speech normal Gait: normal gait Motor: muscle tone normal throughout Sensory Exam: no sensory deficits noted Psych Appearance: grossly normal Mental Status: mental status grossly normal Mood: congruent mood Affect: normal affect Speech and Movement: speech and movement normal Attitude: cooperative Thought Process: normal Thought Content: normal Judgment: judgment good Results BMSUA Office Urine Color Yellow Last Edit by Roxanna Torres on 03/30/18 15:14 Assessment AND Plan 1. Urinary tract infection N39.0 2. Cystitis N30.90 Plan Macrobid as prescribed today. Appropriate hygiene as reinforced today. Follow-up PCP in 5-7 days should symptoms not improve, sooner should symptoms worsen or any other concerns develop. Patient states acknowledging understanding all the above. This note was generated with [employer] software. It may contain incorrect words, spelling, and punctuation that were not noted in checking the note before signing. Plan Detail Other Orders Orders: Other Medications New: Coding Level of Care Code Off vis,est,level 3 Diagnoses Urinary tract infection N39.0 Cystitis N30.90 03/30/18 1514 <Electronically signed by Angus XIAO> Date Angus XIAO Cosigner Signature: Date (if applicable) CC: CBC W/DIFF, AUTOMATED Collected: 02/07/2018 Status: F Source: SUNDAY 3:14 PM [facility] REPOSITORY TYPE CODE TESTS RESULT OUT OF RANGE REFERENCE UNITS LAB L100.1000 4.4-11.0 K/mm3 Normal WBC 7.9 LAB L100.1200 4.2-5.4 M/mm3 Normal RBC 4.52 LAB L100.1300 12.0-15.0 g/dl Normal HGB 12.7 LAB L100.1400 37-47 % Normal HCT 40.0 LAB L100.1500 81-99 fL Normal MCV 88.5 LAB L100.1600 27.0-32.0 pg Normal MCH 28.1 LAB L100.1700 32-36 g/gl Low MCHC 31.8 LAB L100.1810 11.6-14.6 % High RDW CV 14.7 LAB L100.1820 35.1-43.9 fl High RDW SD 47.6 LAB L100.1900 150-450 K/mm3 Normal PLT 193 LAB L100.2000 6.2-12.0 fl Normal MPV 10.3 LAB L100.2100 47-70 % Normal NEUT% 65.8 LAB L100.2200 19-41 % Normal LY% 24.1 LAB L100.2300 0-10 % Normal MONO% 7.9 LAB L100.2400 0-5 % Normal EO% 1.5 LAB L100.2500 0-1 % Normal BASO% 0.4 LAB L100.2550 0.0-0.9 % Normal IM GRAN % 0.300 Result Comment: IG% - Immature Granulocytes (promyelocytes, myelocytes and metamyelocytes) > 1% indicates that a LEFT SHIFT is Present. LAB L100.2620 2.0-7.7 X10 3/uL Normal Absolute Neut 5.2 LAB L100.2720 0.83-4.51 X10 3/ul Normal Absolute Lymph 1.90 Performed By: #### L100.0100 #### [facility] [address] [place], [place], [address] LIPID PROFILE Collected: 02/07/2018 Status: F Source: [place] 3:14 PM [facility] REPOSITORY TYPE CODE TESTS RESULT OUT OF RANGE REFERENCE UNITS LAB L501.4900 200 mg/dL High CHOL 213 Result Comment: <200 mg/dL Desirable 200-240 mg/dL Borderline >240 mg/dL High Risk LAB L501.5000 mg/dL Normal TRIG 166 Result Comment: The drugs N-Acetylcysteine and Metamizole may falsely depress this assay. Serum Triglycerides Reference Interval Normal <150 mg/dL Borderline high 150 - 199 mg/dL High 200 - 499 mg/dL Very High > or = 500 mg/dL LAB L501.6400 mg/dL Normal HDL 49 Result Comment: The drugs N-Acetylcysteine and Metamizole may falsely depress this assay. Reference Range HDL <40 mg/dL Low HDL Cholesterol HDL >or= 60 mg/dL High HDL Cholesterol LAB L501.6500 0-130 mg/dL High LDL 131 LAB L501.6600 5-40 mg/dL Normal VLDL 33 Performed By: #### L500.4100 #### [facility] [address] [place], [place], [address] [id number], S Collected: Status: F Source: 02/07/2018 3:14 PM [facility] REPOSITORY TYPE CODE TESTS RESULT OUT OF RANGE REFERENCE UNITS LAB L3890.5000 0.6-2.4 mg/L Normal B2 1.7 [id number] Result Comment: Siemens Immulite 2000 Immunochemiluminometric assay (ICMA) Performed at: [address] [id number] Chemist Assistant: Kip Hemphill MD, Phone: [phone] Performed By: #### L3890.5000 #### [facility] (refer to report for specific site) refer to report for address and phone number PROTEIN ELECTROPH, S Collected: 02/07/2018 Status: F Source: SUNDAY 3:14 PM [facility] REPOSITORY TYPE CODE TESTS RESULT OUT OF RANGE REFERENCE UNITS LAB L3100.3500 6.0-8.5 g/dL Normal PROTEIN,TOTAL 6.4 LAB L3100.3600 2.9-4.4 g/dL Normal ALBUMIN 3.4 LAB L3100.3700 0.0-0.4 g/dL Normal ALPHA-1 GLOBUL 0.3 LAB L3100.3800 0.4-1.0 g/dL Normal ALPHA-2 GLOBUL 0.8 LAB L3100.3900 0.7-1.3 g/dL Normal BETA GLOBULIN 1.0 LAB L3100.4000 0.4-1.8 g/dL Normal GAMMA GLOBULIN 1.0 LAB L3100.4110 Normal M-SPIKE Result Comment: NOT OBSERVED LAB L3100.4200 2.2-3.9 g/dL GLOBULIN, TOTAL Normal 3.0 LAB L3100.4300 0.7-1.7 A/G RATIO Normal 1.1 LAB L3100.4320 . INTERPRETATION Normal Comment Result Comment: Protein electrophoresis scan will follow via computer, mail, or foundry operator delivery. LAB L3100.4340 . Normal NOTE: Comment Result Comment: The SPE pattern appears essentially unremarkable. Evidence of monoclonal protein is not apparent. Performed at: [facility] [address] [id number] Chemist Assistant: Corky Damon PhD, Phone: [phone] Performed By: #### L3100.3450 #### [facility] (refer to report for specific site) refer to report for address and phone number ORTHOPEDIC VISIT Observed: 12/08/2017 Status: F Source: SUNDAY REPORT 2:08 PM [facility] REPOSITORY [facility] [address] [place] [address] OFFICE VISIT Date of Service: 12/06/17 MR#: [id number] Acct: [id number] Name: CHELSEY BELTRAN Rep #: [id number] : 1950 Provider: Louisa Bell DO Age/Sex: 67/F Location: [facility] [place] [place] Status: Signed Intake Vital Signs12/06/17 Height 5 ft 2 in Intake Visit Reasons: Bilat knee pain Chief Complaint: F/u for gammopathy. 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 Accompanied by: Is patient in pain?: Yes (bilateral knees ) Pain scale (1- 10): 9 Allergies clarithromycin [From Biaxin] Allergy (Verified 08/17/17 13:45) Rash sulfamethoxazole [From Bactrim] Allergy (Verified 08/17/17 13:45) Rash trimethoprim [From Bactrim] Allergy (Verified 08/17/17 13:45) Rash codeine Adverse Reaction (Verified 08/17/17 13:45) Upset Stomach Penicillins Adverse Reaction (Verified 08/17/17 13:45) Other Medications Hydrochlorothiazide [Hctz] 12.5 mg PO DAILY 12/31/16 [History Confirmed 08/17/17] Levothyroxine [Synthroid] 50 mcg PO DAILY 12/31/16 [History Confirmed 08/17/17] Meclizine HCl [Antivert] 12.5 mg PO DAILY PRN PRN 12/31/16 [History Confirmed 08/17/17] Metronidazole 0.75% [Metrogel] 70 applic TOPICAL DAILY 12/31/16 [History Confirmed 08/17/17] Omeprazole [Omeprazole] 40 mg PO DAILY 12/31/16 [History Confirmed 08/17/17] Potassium Chloride [Klor-Con M20] 20 meq PO DAILY 12/31/16 [History Confirmed 08/17/17] Propranolol HCl 60 mg PO DAILY 12/31/16 [History Confirmed 08/17/17] Nitrofurantoin Macrocrystal [Nitrofurantoin] 50 mg PO 08/17/17 [History] PFSH Medical History Arthritis (Acute) Asthma (Acute) GERD (gastroesophageal reflux disease) (Acute) Hypothyroid (Acute) IBS (irritable bowel syndrome) (Acute) Incontinence (Acute) Knee pain (Acute) Meniere disease (Acute) Osteopenia (Acute) PVC's (premature ventricular contractions) (Acute) Polyclonal gammopathy (Acute) Retinal tear of left eye (Acute) SOB (shortness of breath) (Acute) Thyroid disease (Acute) Ulnar neuropathy (Acute) Vitamin D deficiency (Acute) Surgical History History of dilatation and curettage (Acute) Hx of breast biopsy (Acute) Hx of tonsillectomy (Acute) Family History Mother Cancer Lung cancer Hypertension Anemia Father Cancer Social History Smoking Status: Never smoker alcohol intake: never HPI Bilat knee pain: Details: CHELSEY BELTRAN is a 67 year old F here today for bilateral knee pain. Pain is rated at 9/10 and described as ache and shredding. Denies radiation of pain. Uses ibuprofen for pain with some relief. Patient has had xrays and injections previously and is hoping to have injections today. Denies having mri or PT. Denies swelling, numbness or tingling. Hears occasional popping and clicking. States going up and down stairs is painful. States it feels like the left knee may give out sometimes. Patient is able to flex and extend both knees without pain. Weight bearing seems to aggravate the pain more with relief from using warm blankets or taking a hot shower. Ortho Exam Right Knee Skin/Wound: Yes CDI Contralateral Normal: No Swelling: No Homans Sign: No Knee ROM: Yes ROM-Extension -20 to 0, Yes ROM-Flexion 0-140 Examination: Yes Med jt line tenderness, Yes Pain with flexion, Yes Crepitus Left Knee Skin/Wound: Yes CDI Contralateral Normal: No Swelling: No Homans Sign: No Knee ROM: Yes ROM-Extension -20 to 0, Yes ROM-Flexion 0-140 Examination: Yes med jt line tenderness, Yes Pain with flexion, Yes Crepitus Office Procedures Ortho Injections Injections Yes Knee Bilateral Details: Obtained consent for injection. Under sterile conditions, aspirated 3cc from the right and injected the patients right and left knee with a 10cc cocktail of 8cc bupivacaine and 2cc kenalog. The patient tolerated the injection well without any noted complication. Patient should call our office if redness develops, pain worsens or if they have any concerns. Office Meds Kenalog Performing Provider: Louisa Bell DO Administered by: Louisa Bell DO on 12/06/17 14:25 Dose Route Admin Location Lot Number Expiration DateNDC Embroidery Cutter 4 mg Intra-Articularbilateral [id number] 10/25/18 3021-9121-24 [facility] Assessment AND Plan 1. Primary osteoarthritis of both knees M17.0 Plan Injections have been helpful for her pain and as long as the conservative care is working will continue this treatment plan. Follow up in 3-4 months or sooner if pain, swelling, numbness or associated symptoms, or concerns develop. All questions answered. Patient in agreement of plan. 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 ([id number]) 12/08/17 1408 <Electronically signed by Louias Bell DO> Date Louisa Bell DO Cosigner Signature: Date (if applicable) CC: CBC W/DIFF, AUTOMATED Collected: 08/10/2017 Status: F Source: SUNDAY 12:32 PM [facility] REPOSITORY Order Comment: Reason for Laboratory Test ROUTINE ANNUAL TYPE CODE TESTS RESULT OUT OF RANGE REFERENCE UNITS LAB L100.1000 4.4-11.0 K/mm3 Normal WBC 7.4 LAB L100.1200 4.2-5.4 M/mm3 Normal RBC 4.52 LAB L100.1300 12.0-15.0 g/dl Normal HGB 13.3 LAB L100.1400 37-47 % Normal HCT 41.3 LAB L100.1500 81-99 fL Normal MCV 91.4 LAB L100.1600 27.0-32.0 pg Normal MCH 29.4 LAB L100.1700 32-36 g/gl Normal MCHC 32.2 LAB L100.1810 11.6-14.6 % High RDW CV 14.8 LAB L100.1820 35.1-43.9 fl High RDW SD 48.3 LAB L100.1900 150-450 K/mm3 Normal PLT 227 LAB L100.2000 6.2-12.0 fl Normal MPV 10.1 LAB L100.2100 47-70 % Normal NEUT% 64.8 LAB L100.2200 19-41 % Normal LY% 24.5 LAB L100.2300 0-10 % Normal MONO% 9.0 LAB L100.2400 0-5 % Normal EO% 0.9 LAB L100.2500 0-1 % Normal BASO% 0.5 LAB L100.2550 0.0-0.9 % Normal IM GRAN % 0.300 Result Comment: IG% - Immature Granulocytes (promyelocytes, myelocytes and metamyelocytes) > 1% indicates that a LEFT SHIFT is Present. LAB L100.2620 2.0-7.7 X10 3/uL Normal Absolute Neut 4.8 LAB L100.2720 0.83-4.51 X10 3/ul Normal Absolute Lymph 1.82 Performed By: #### L100.0100, L500.4050 #### [facility] [address] [place] [address]. [place], [address] #### L3890.5000 #### [facility] (refer to report for specific site) refer to report for address and phone number COMPREHENSIVE METABOLIC Collected: 08/10/2017 Status: F Source: [facility] 12:32 PM [facility] REPOSITORY Order Comment: Reason for Laboratory Test ROUTINE ANNUAL TYPE CODE TESTS RESULT OUT OF RANGE REFERENCE UNITS LAB L501.0100 74-106 mg/dL Normal GLU 96 Result Comment: Please note revised GLUCOSE reference range effective 2017. LAB L501.1000 7-18 mg/dL Normal BUN 12 LAB L501.1100 0.55-1.02 mg/dL Normal CREAT,SERUM 0.70 Result Comment: The validity of the calculated GFR AND GFRAA in patients over 70 years has not been determined. Clinical correlation is essential. LAB L501.1110 >60 mL/min Normal EST GFR 88 Result Comment: Non- GFR Calc LAB L501.1115 >60 mL/min Normal EST GFR - AA 107 Result Comment: GFR Calc LAB L501.1300 10-20 RATIO Normal BUN/CRE 17.1 LAB L501.1500 6.4-8.2 g/dL T Normal PROT 7.4 LAB L501.1800 3.2-5.0 g/dL Normal ALB 3.6 LAB L501.1950 2.2-4.2 g/dL Normal GLOB 3.8 LAB L501.2000 0.9-2.4 RATIO Normal A/G 0.9 LAB L501.2200 8.5-10.1 mg/dL CA Normal 9.1 LAB L501.4100 15-37 U/L Low AST 10 LAB L501.4305 45-117 U/L Normal ALK P 80 LAB L501.4405 13-56 U/L Normal ALT 22 Result Comment: Please note revised ALT reference range effective 2017. LAB L501.4600 0.20-1.00 mg/dL Normal T BILI 0.80 LAB L501.5300 136-145 mmol/L Normal NA 140 LAB L501.5600 3.5-5.1 mmol/L Normal K 3.8 LAB L501.5900 98-107 mmol/L Normal CL 105 LAB L501.6100 21.0-32.0 mmol/L Normal CO2 25.0 LAB L501.6200 5-15 Normal GAP 10 Performed By: #### L100.0100, L500.4050 #### [facility] [address] [place], [address] #### L3890.5000 #### [facility] (refer to report for specific site) refer to report for address and phone number [id number], S Collected: Status: F Source: [place] 08/10/2017 12:32 PM [facility] REPOSITORY Order Comment: Reason for Laboratory Test ROUTINE ANNUAL TYPE CODE TESTS RESULT OUT OF RANGE REFERENCE UNITS LAB L3890.5000 0.6-2.4 mg/L Normal B2 1.9 [id number] Result Comment: Siemens Immulite 2000 Immunochemiluminometric assay (ICMA) Performed at: [address] [id number] Chemist Assistant: Kip Hemphill MD, Phone: [phone] Performed By: #### L100.0100, L500.4050 #### [facility] [address] [place], [address] #### L3890.5000 #### [facility] (refer to report for specific site) refer to report for address and phone number VANESSA + PROTEIN ELECT, Collected: 08/10/2017 Status: F Source: [place] 12:32 PM [facility] REPOSITORY Order Comment: Reason for Laboratory Test ANNUAL ROUTINE Is Patient Fasting? N TYPE CODE TESTS RESULT OUT OF RANGE REFERENCE UNITS LAB L3100.3500 6.0-8.5 g/dL Normal PROTEIN,TOTAL 6.7 LAB L3200.7615 335-5591 mg/dL Low IMMUNO G 540 LAB L3200.1400 87-352 mg/dL Low IMMUNO A 86 LAB L3200.1500 26-217 mg/dL High IMMUNOGL M 632 LAB L3200.1510 2.9-4.4 g/dL Normal ALBUMIN 3.6 LAB L3200.1520 0.0-0.4 g/dL Normal DJMTV-8-IGXO 0.3 LAB L3200.1530 0.4-1.0 g/dL Normal TMOBR-5-HLMV 0.8 LAB L3200.1540 0.7-1.3 g/dL Normal BETA GLOBULIN 1.0 LAB L3200.1550 0.4-1.8 g/dL Normal GAMMA GLOBULIN 1.0 LAB L3200.1560 Normal M-SPIKE Result Comment: NOT OBSERVED LAB L3200.1570 2.2-3.9 g/dL Normal GLOBULIN, TOTAL 3.1 LAB L3200.1580 0.7-1.7 A/G Normal RATIO 1.2 LAB L3200.1590 . VANESSA Normal RESULT,S Comment Result Comment: No monoclonality detected. LAB L3200.1594 . Normal NOTE: Comment Result Comment: Protein electrophoresis scan will follow via computer, mail, or foundry operator delivery. Performed By: #### L3100.3425, L3130.0010 #### [facility] (refer to report for specific site) refer to report for address and phone number KAPPA LAMBDA LIGHT Collected: 08/10/2017 Status: F Source: [place] 12:32 PM [facility] REPOSITORY Order Comment: Reason for Laboratory Test ANNUAL ROUTINE Is Patient Fasting? N TYPE CODE TESTS RESULT OUT OF RANGE REFERENCE UNITS LAB L3130.0200 3.3-19.4 mg/L Normal FR KAPPA LT 12.1 CHN LAB L3130.0300 5.7-26.3 mg/L Normal FR LAMBDA LT 17.6 CH LAB L3130.0400 0.26-1.65 Normal KAPPA/LAMBDA 0.69 % Result Comment: Performed at: [facility] [address] [id number] Chemist Assistant: Corky Damon PhD, Phone: [phone] Performed By: #### L3100.3425, L3130.0010 #### [facility] (refer to report for specific site) refer to report for address and phone number ALLERGIES ALLERGIES DATE TYPE / CODE NAME / CODE REACTION SEVERITY SOURCE 07/03/2018 Drug Penicillins/ Other [facility] Allergy/4160 [id number]( Hospital 09954(SNOMED XNORM) Repository CT) 07/03/2018 Drug codeine/F006 Upset Stomach Unknown [facility] Allergy/4160 194419([facility] Hospital 45472(SNOMED M) Repository CT) 07/03/2018 Drug sulfamethoxa Rash Unknown [facility] Allergy/4160 zole/[id number] Hospital 34148(SNOMED 827(RXNORM) Repository CT) 07/03/2018 Drug trimethoprim Rash Unknown [facility] Allergy/4160 /[id number]( Hospital [address]8910(SNOMED RXNORM) Repository CT) 07/03/2018 Drug clarithromyc Rash Unknown [facility] Allergy/4160 in/[id number] [place] [address](SNOMED 8(RXNORM) Repository CT) ENCOUNTERS ENCOUNTERS ADMIT/DISCHARGE ACCOUNT ADMITTING ENCOUNTER LOCATION SOURCE NUMBER CLASS 07/20/2018 [id number] Ambulatory Sudnay [facility] 9 [facility] ing:CR Repository 07/12/2018 [id number] Ambulatory BMSBuilding:B [facility] 0 [facility] Repository 07/12/2018 [id number] Ambulatory Sunday [facility] 6 [facility] ing:[facility] Repository 07/03/2018/ [id number] Ambulatory BMSBuilding:B Sunday 9 4 [facility] Repository 06/24/2018/ [id number] Emergency [facility] 8 9 [facility] ing:ED Repository 06/20/2018/ [id number] Anaya, Inpatient Sunday Sunday 8 8 [facility] Encounter [facility] ing:PCURoom: Repository [id number]: 1 06/20/2018 [id number] Timmy, Ambulatory BMSBuilding:B Sunday 1 [place] [facility] Repository 06/20/2018 [id number] Timmy, Ambulatory BMSBuilding:B Sunday 8 [place] [facility] Repository 06/20/2018 [id number] Timmy, Ambulatory BMSBuilding:B [facility] 1 [place] [facility] Repository 06/20/2018 [id number] Timmy, Ambulatory BMSBuilding:B [place] 0 [place] [facility] Repository 06/20/2018 [id number] Timmy, Ambulatory BMSBuilding:B Sunday 6 [place] Repository 06/20/2018/ [id number] Ambulatory BMSBuilding:W Sunday 8 5 [facility] Repository 06/20/2018/ [id number] Ambulatory BMSBuilding:W [facility] 8 2 [facility] Repository 03/30/2018/ [id number] Ambulatory BMSBuilding:B [facility] 8 5 [facility] Repository 02/07/2018 [id number] Ambulatory Sunday [facility] 9 [facility] ing:LAB.FUTUR Repository E 12/06/2017/ [id number] Ambulatory BMSBuilding:B [facility] 8 8 [facility] Repository 08/25/2017 [id number] Ambulatory [place] Sunday 3 [facility] ing:LAB.[facility]UR Repository E 08/17/2017/ [id number] Ambulatory [facility] 8 3 [facility] ing:OMD Repository 08/17/2017 [id number] Ambulatory BMSBuilding:B Sunday 3 [place] PAYERS PAYERS ENCOUNTER GUARANTOR PAYER SUBSCRIBER SOURCE 07/20/2018 CHELSEY Gaspar Primary Insurance:MMO CHELSEY A [facility] [id number] W MEDICAREPolicy ROUHIERDOB[place] [facility] Number: [id number], [place] [id number] Repository [address]Qps: (330) Date:7068-96-62SZ [phone] () [address], [place] [address]MX: 07/20/2018 Secondary NOT GIVENUNK [facility] Insurance:SELF PAY [facility] Number: Effective Repository Date:2018-07-17 07/12/2018 CHELSEY Gaspar Primary Insurance:MMO CHELSEY A [facility] [id number] W MEDICAREPolicy ROUHIERDOB: [facility] Number: [id number], [place] [id number] Repository [address]Noi: (330) Date:5128-29-43EL [phone] () [address], [place] [address]KN: 07/12/2018 Secondary NOT GIVENUNK Sunday Insurance:SELF PAY [facility] Number: Effective Repository Date:2018-07-12 07/12/2018 CHELSEY Gaspar Primary Insurance:MMO CHELSEY A Sunday [id number] W MEDICAREPolicy ROUHIERDOB: [facility] Number: [id number], [place] [id number] Repository [address]Qdr: (330) Date:2154-60-14ZK [phone] () [address] [place] [phone]: 07/12/2018 Secondary NOT GIVENUNK [facility] Insurance:SELF PAY [facility] Number: Effective Repository Date:2018-07-03 07/03/2018 CHELSEY A Primary Insurance:MMO CHELSEY A [facility] [id number] W MEDICAREPolicy ROUHIERDOB: [facility] [place] Number: [id number], [place] [id number] Repository [address]Rrd: (330) Date:9243-68-03WM [phone] (HP) [address], [place] [address]WF: 07/03/2018 Secondary NOT GIVENUNK Sunday Insurance:SELF PAY [facility] Effective Repository Date:2018-07-03 06/24/2018 CHELSEY A Primary Insurance:MMO CHELSEY A [facility] [id number] W MEDICAREPolicy ROUHIERDOB: [facility] [place] Number: [id number], [place] [id number] Repository [address]Num: (330) Date:6860-91-93ZY [phone] (HP) [address] [phone]: 06/24/2018 Secondary NOT GIVENUNK [facility] Insurance:SELF PAY [facility] Number: Effective Repository Date:2018-06-24 06/20/2018 CHELSYE A Primary Insurance:MMO CHELSEY A Sunday [id number] W MEDICAREPolicy ROUHIERDOB: [facility] [place] Number: [id number], [place] [id number] Repository [address]Flp: (330) Date:5094-58-31CJ [phone] (HP) [address], [place] [address]YU: 06/20/2018 Secondary NOT GIVENUNK Sunday Insurance:SELF PAY [facility] Number: Effective Repository Date:2018-06-20 06/20/2018 CHELSEY A Primary Insurance:MMO CHELSEY A Hoffman [id number] W MEDICAREPolicy ROUHIERDOB: [facility] [place] Number: [id number], [place] [id number] Repository [address]Mnf: (330) Date:7440-20-21LT [phone] (HP) [address] [place] [address]MZ: 06/20/2018 Secondary NOT GIVENUNK Sunday Insurance:SELF PAY [facility] Number: Effective Repository Date:2018-06-20 06/20/2018 CHELSEY A Primary Insurance:MMO CHELSEY A [facility] [id number] W MEDICAREPolicy ROUHIERDOB: [facility] [place] Number: [id number], [place] [id number] Repository [address]Ppv: (330) Date:4512-96-34LG [phone] () [address] [place] [address]IR: 06/20/2018 Secondary NOT GIVENUNK Sunday Insurance:SELF PAY [facility] Number: Effective Repository Date:2018-06-20 06/20/2018 CHELSEY A Primary Insurance:MMO CHELSEY A [facility] [id number] W MEDICAREPolicy ROUHIERDOB: [facility] - [place] Number: [id number], [place] [id number] Repository 41596Yiq: (330) Date:5568-42-35WU [phone] () [address] [place] [phone]: 06/20/2018 Secondary NOT GIVENUNK Sunday Insurance:SELF PAY [facility] Number: Effective Repository Date:2018-06-20 06/20/2018 CHELSEY A Primary Insurance:MMO CHELSEY A Sunday [id number] W MEDICAREPolicy ROUHIERDOB: [facility] [place] Number: [id number], [place] [id number] Repository 74931Gem: (330) Date:5823-43-01UQ [phone] () [address] [place] [phone]: 06/20/2018 Secondary NOT GIVENUNK Hoffman Insurance:SELF PAY [facility] Number: Effective Repository Date:2018-06-20 06/20/2018 CHELSEY A Primary Insurance:MMO CHELSEY A Sunday [id number] W MEDICAREPolicy ROUHIERDOB: [facility] [place]: [id number], [place] [id number] Repository 37439Pvr: (330) Date:7925-61-14HQ [phone] (HP) [address] [place] [phone]: 06/20/2018 Secondary NOT GIVENUNK Hoffman Insurance:SELF PAY [facility] Number: Effective Repository Date:2018-06-20 06/20/2018 CHELSEY A Primary Insurance:MMO CHELSEY A Sunday [id number] W MEDICAREPolicy ROUHIERDOB: [facility] [place] Number: [id number], [place] [id number] Repository 66985Ibr: (330) Date:9878-05-16SP [phone] (HP) [address] [place] [phone]: 06/20/2018 Secondary NOT GIVENUNK Sunday Insurance:SELF PAY [facility] Number: Effective Repository Date:2018-06-20 06/20/2018 CHELSEY A Primary Insurance:MMO CHELSEY A Hoffman [id number] W MEDICAREPolicy ROUHIERDOB: [facility] [place] Number: [id number], [place] [id number] Repository 839[address]Weq: (330) Date:1168-01-03YP [phone] (HP) [address] [place] [phone]: 06/20/2018 Secondary NOT GIVENUNK Hoffman Insurance:SELF PAY [facility] Number: Effective Repository Date:2018-06-20 03/30/2018 CHELSEY A Primary Insurance:MMO CHELSEY A Hoffman [id number] W MEDICAREPolicy ROUHIERDOB: [facility] [place] Number: [id number], [place] [id number] Repository 14877Grk: (330) Date:1825-15-98KC [phone] (HP) [address] [place] [phone]: 03/30/2018 Secondary NOT GIVENUNK Hoffman Insurance:SELF PAY [facility]: Effective Repository Date:2018-03-30 02/07/2018 CHELSEY A Primary Insurance:MMO CHELSEY A Sunday [id number] W MEDICAREPolicy ROUHIERDOB: [facility] [place] Number: [id number], [place] [id number] Repository 82549Zuy: (330) Date:9970-58-46EB [phone] (HP) [address], [place] [address]VO: 02/07/2018 Secondary NOT GIVENUNK Hoffman Insurance:SELF PAY [facility] Number: Effective Repository Date:2017-12-26 12/06/2017 Francis Alexander Primary Insurance:MMO CHELSEY A Hoffman [place] [id number] W MEDICAREPolicy ROUHIERDOB: [facility] [place]: [id number] [place], [place] [id number] Repository 78416Way: Date:8713-85-09ZQ [phone] [address], [place] -2 () [phone]: 12/06/2017 Secondary NOT GIVENUNK Hoffman Insurance:SELF PAY [facility] Number: Effective Repository Date:2017-12-06 08/25/2017 Francis Alexander Primary Insurance:MMO CHELSEY A Hoffman [place] [id number] W MEDICAREPolicy ROUHIERDOB: [facility] [place] Number: [id number] [place], [place] [id number] Repository [address]Ldb: Date:7104-71-45XY [phone] [place] [address] -2 () [phone]: 08/25/2017 Secondary NOT GIVENUNK Sunday Insurance:SELF PAY [facility] Number: Effective Repository Date:2017-08-25 08/17/2017 Francis Alexander Primary Insurance:MMO CHELSEY A Sunday [place] [id number] W MEDICAREPolicy ROUHIERDOB: [facility] [place]: [id number] [place], [place] [id number] Repository 97[address]Toh: Date:6920-40-91TS [phone] 6018[facility]2 () [phone]: 08/17/2017 Secondary NOT GIVENUNK Hoffman Insurance:SELF PAY [facility] Number: Effective Repository Date:2017-06-23 08/17/2017 Francis Alexander Primary Insurance:MMMicki Beltran [id number] W MEDICAREPolicy ROUHIERDOB: [facility] [place] Number: [id number] [place], [place] [id number] Repository 73983Vlk: Date:1422-79-74PG [phone] 6018[facility]2 () [phone]: 08/17/2017 Secondary NOT GIVENUNK Sunday Insurance:SELF PAY [facility] Number: Effective Repository Date:2017-08-17
== END ==
PROVIDERS: Family Provider Family Medicine; PCP Family Medicine; Referring Provider Nurse Practitioner Family; Visit Provider Nurse Practitioner Family
DX: I25.10 Atherosclerotic heart disease of native coronary artery without angina pectoris (principal); Z95.5 Presence of coronary angioplasty implant and graft
CPT/HCPCS: 93017; 93350; J7040; A4216

== ENCOUNTER → 2018-07-20 11:44 | Outpatient (CLI) | payer MEDICARE, SELFPAY ==
[2018-06-21 08:53] VITALS: BMI 38.3
[2018-07-03 15:04] VITALS: BMI 36.2
--- NOTE | 2018-07-20 12:29 | PCM.CR.HP2 ---
CR - History & Physical - General Arrival date:: 07/20/18 Arrival time:: 12:00 Date of Referral:: 06/21/18 Date of CR Evaluation:: 07/20/18 Referring Physician: DR. FLORIAN WARNER Primary Diagnosis: PCI W/STENT PLACEMENT - History of Present Cardiac Event Onset Date: Enter Onset Date of cardiac illnesses in Comment field below Acute Myocardial Infarction within 12 months:: Yes - STEMI 06/20/2018 PTCA or coronary stenting:: Yes - 06/20/2018 Type of Symptoms:: WENT FOR [place] THOUGH IT WAS JUST INDIGESTION AND THEN ARM STARTED HURTING. THOUGHT ORIGINALLY JUST A FLARE UP OF HER GERD. Interventions with present event:: HEART CATH Were there any complications?: NONE, JUST FELT LIKE HIT BY STEAM ENGINE, VERY FATIGUED - Medications Home Medications: Ambulatory Orders Medication Instructions Recorded Hydrochlorothiazide [Hctz] 12.5 mg PO DAILY 12/31/16 Levothyroxine [Synthroid] 50 mcg PO DAILY 12/31/16 Omeprazole 40 mg PO DAILY 12/31/16 Aspirin E.C. [Ecotrin] 81 mg PO DAILY@0800 tab 06/21/18 potassium chloride ER 20 mEq 10 meq PO DAILY tab 06/29/18 tablet,extended release(part/cryst) atorvastatin 80 mg tablet 80 mg PO QHS #90 tab 07/03/18 carvedilol 3.125 mg tablet 3.125 mg PO BID #180 tab 07/03/18 lisinopril 5 mg tablet 5 mg PO DAILY #90 tab 07/03/18 metronidazole 0.75 % topical cream TOPICAL 68 Days #135 g 07/03/18 ticagrelor 90 mg tablet 90 mg PO BID #180 tab 07/03/18 - Allergies Allergies/Adverse Reactions: Allergies clarithromycin [From Biaxin] Allergy (Verified 07/03/18 15:09) Rash sulfamethoxazole [From Bactrim] Allergy (Verified 07/03/18 15:09) Rash trimethoprim [From Bactrim] Allergy (Verified 07/03/18 15:09) Rash codeine Adverse Reaction (Verified 07/03/18 15:09) Upset Stomach Penicillins Adverse Reaction (Verified 07/03/18 15:09) Other - Sleep Disorder Evaluation Hx of Sleep Apnea: No Do you snore loudly (louder than talking or can be heard through closed doors)?: Yes - CLAIMS SHE SNORES Do you often feel tired/ fatigued/ sleepy during daytime?: No Has anyone observed you stop breathing during sleep?: No History of Hypertension (for STOP score): Yes STOP Results: Positive Advanced Directives - Advanced Directives Power of Pathological Technician: Yes Living Will: Yes Advance Directives Information Provided: No Advance Directives on File: No - 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 Warner @ 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 Warner @ [facility] History of delivery Z98.891 History of dilatation and curettage Z98.890 Hx of breast biopsy Z98.890 Hx of tonsillectomy Z98.890, Z90.89 Surgical History: tonsillectomy, - - section. - Family History Summary Family History: Family History (Last Updated 07/03/18 @ 15:12 by Diane Bassett) Mother Cancer skin Anemia Father Cancer Heart disease Social History - Smoking History Smoking Status: Never smoker Hx Tobacco Use: No Hx Smoking Exposure: No - Alcohol Use Alcohol Usage: No - Substance Abuse Hx Substance Use: No - Occupation Occupation (List type of work in comments):: Retired - Hobbies, Recreation, Social Activities Hobbies: Sewing - ENMA, CROSS STITCH, NEEDLE POINT, PINTREST, ADULT COLORING, READING , Other Recreational Activities: I am able to engage in all my recreational activities, I am able to engage in most, but not all activities Social Environment - Status Marital Status: - Current Living Arrangements Living Environment:: Spouse - Children How many children do you have?: 1 - SON AGE 30; 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 Left click = Reports ([place]) Review of Present Symptoms: Reports: Shortness of Breath at Rest, Shortness of Breath with Exertion - sometimes when the asthma starts to flare up,, Wound Healing, Fatigue - improving, Heart Arrhythmia/Irregularities - history of PVCs., Appetite - Normal, Appetite - Special Diet - no salt, low fat, low cholesterol. Denies: Dizziness/Lightheadedness - Pain Is Patient Pain Free?: No Pain Location: none - previous discomffort in the knees has improved since lossing about 10 pounds recently. Risk Factor Assessment - Chief Complaint Chief Complaint: Patient is a 67 [address] old female of Dr. Warner who was reffered to CR following a recent STEMI and PCI w/coronary stent. She has a foolow up appointment in October [address] Warner following her CR program. - Vital Signs Temperature: 98.7 F Respiratory Rate: 14 Pulse Ox: 97 Blood Pressure: 112/58 Nailbeds:: pink - Pulse Pulse Rate: 92 Pulse Rhythm: Regular - Hypertension How long have you been treated?: 112/58 Blood Pressure Sitting - Left Arm: 112/58 - Blood Cholesterol/Lipids Total Cholesterol (mg/dL) Goal = less than 200 mg/dL: 172 HDL Cholesterol (mg/dL) Goal = less than 40 mg/dL: 39 LDL Cholesterol (mg/dL) Goal = less than 70 mg/dL: 97 Triglycerides (mg/dL) Goal = less than 150 mg/dL: 179 - Diabetes Nutrition Referral for Diabetes: No - Obesity Height: 5 ft 1 in Weight:: 192 lb Weight in Pounds: 192.0 lbs Weight Source: Standing Scale Body Mass Index (BMI): 36.2 Desired Body Weight: 168 Nutritional Referral for Obesity: Yes - Physical Inactivity Physical Inactivity: None - Risk Stratification Risk Guidelines: Lowest Risk: Risk Factor for Smoking, Risk Factor for Diabetes, Risk Factor for Hypertension, Risk Factor for Depression, Moderate Risk: Risk Factor for Dyslipidemia, Risk Factor for Sedentary Lifestyle - does climb stair to TV room in basement frequently, Highest Risk: Risk Factor for Obesity - For Smoking Smoking Risk Guidelines: Smoking Low Risk: None or quit greater than 6 months ago. Smoking Moderate Risk: Smoker or quit 6 months or less ago. Smoking High Risk: Smoker - For Dyslipidemia Dyslipidemia Risk Guidelines: Low Risk: Moderate Risk: High Risk: 15-25% fat 25.1-29% fat >/= 30% fat. <7% sat fat 7-9% sat fat >9% sat fat. <150 mg chol 150-299 mg chol >/= 300 mg chol. LDL <100 LDL 100-129 LDL >/= 130. Chol/HDL ratio <5.0 Chol/HDL ratio 5.0-6.0 Chol/HDL ratio >6.0. Triglycerides <100 Triglycerides 100-149 Triglycerides >/= 150 - For Diabetes Mellitus Diabetes Risk Guidelines: Diabetes Low Risk: HgA1c <6.5% and/or FBG <120. Diabetes Moderate Risk: HgA1c 6.6-7.9% and/or FBG 120-180. Diabetes High Risk: HgA1c >/= 8% and/or FBG >180 - For Obesity/Overweight Obesity/Overweight Risk Guidelines: Obesity Low Risk: BMI <25.0. Obesity Moderate Risk: BMI 25-29.9. Obesity High Risk: BMI >/= 30.0 - For Hypertension Hypertension Risk Guidelines: Hypertension Low Risk: Systolic <120 and Diastolic <80. Hypertension Moderate Risk: Systolic 120-139 and Diastolic 80-89. Hypertension High Risk: Systolic >/= 140 and Diastolic >/= 90 - For Sedentary Lifestyle Sedentary Lifestyle Risk Guidelines: Sedentary Lifestyle Low Risk: >/= 1,500 kcal/week. Sedentary Lifestyle Moderate Risk: 700-1,499 kcal/week. Sedentary Lifestyle High Risk: < 700 kcal/week - For Depression Depression Risk Guidelines: Depression Low Risk: Not clinically depressed. Depression Moderate Risk: Mildly depressed. Depression High Risk: Clinically depressed - Family History Family History: Family History (Last Updated 07/03/18 @ 15:12 by Diane Bassett) Mother Cancer Anemia Father Cancer Heart disease Motivation - Motivation to Participate On a scale of 1 to 10, how prepared are you to commit to attending program?: 10 What do you see as barriers to successfully being able to complete the program?: asthma What do you see as the benefits of succesfully completing the program? In other words, what do you hope to get out of participating in the program?: no down sides to this program, it's all positive Are there issues you are dealing with that will interfere with completing the program?: none; recent onset of cough that started on Tuesday/Tuesday dry persistent Do you have a spouse or signficant other, family or friends who will help support you to complete the program?: yes
--- NOTE | 2018-07-20 12:33 | CR.HP_ITS ---
CR - History & Physical - General Arrival date:: 07/20/18 Arrival time:: 12:00 Date of Referral:: 06/21/18 Date of CR Evaluation:: 07/20/18 Referring Physician: DR. FLORIAN WARNER Primary Diagnosis: PCI W/STENT PLACEMENT - History of Present Cardiac Event Onset Date: Enter Onset Date of cardiac illnesses in Comment field below Acute Myocardial Infarction within 12 months:: Yes - STEMI 06/20/2018 PTCA or coronary stenting:: Yes - 06/20/2018 Type of Symptoms:: WENT FOR [place] THOUGH IT WAS JUST INDIGESTION AND THEN ARM STARTED HURTING. THOUGHT ORIGINALLY JUST A FLARE UP OF HER GERD. Interventions with present event:: HEART CATH Were there any complications?: NONE, JUST FELT LIKE HIT BY STEAM ENGINE, VERY FATIGUED - Medications Home Medications: Ambulatory Orders Medication Instructions Recorded Hydrochlorothiazide [Hctz] 12.5 mg PO DAILY 12/31/16 Levothyroxine [Synthroid] 50 mcg PO DAILY 12/31/16 Omeprazole 40 mg PO DAILY 12/31/16 Aspirin E.C. [Ecotrin] 81 mg PO DAILY@0800 tab 06/21/18 potassium chloride ER 20 mEq 10 meq PO DAILY tab 06/29/18 tablet,extended release(part/cryst) atorvastatin 80 mg tablet 80 mg PO QHS #90 tab 07/03/18 carvedilol 3.125 mg tablet 3.125 mg PO BID #180 tab 07/03/18 lisinopril 5 mg tablet 5 mg PO DAILY #90 tab 07/03/18 metronidazole 0.75 % topical cream TOPICAL 68 Days #135 g 07/03/18 ticagrelor 90 mg tablet 90 mg PO BID #180 tab 07/03/18 - Allergies Allergies/Adverse Reactions: Allergies clarithromycin [From Biaxin] Allergy (Verified 07/03/18 15:09) Rash sulfamethoxazole [From Bactrim] Allergy (Verified 07/03/18 15:09) Rash trimethoprim [From Bactrim] Allergy (Verified 07/03/18 15:09) Rash codeine Adverse Reaction (Verified 07/03/18 15:09) Upset Stomach Penicillins Adverse Reaction (Verified 07/03/18 15:09) Other - Sleep Disorder Evaluation Hx of Sleep Apnea: No Do you snore loudly (louder than talking or can be heard through closed doors)?: Yes - CLAIMS SHE SNORES Do you often feel tired/ fatigued/ sleepy during daytime?: No Has anyone observed you stop breathing during sleep?: No History of Hypertension (for STOP score): Yes STOP Results: Positive Advanced Directives - Advanced Directives Power of Recycling Program Manager: Yes Living Will: Yes Advance Directives Information Provided: No Advance Directives on File: No - 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 Warner @ [facility] History of delivery Z98.891 History of dilatation and curettage Z98.890 Hx of breast biopsy Z98.890 Hx of tonsillectomy Z98.890, Z90.89 Surgical History: tonsillectomy, - - section. - Family History Summary Family History: Family History (Last Updated 07/03/18 @ 15:12 by Diane Bassett) Mother Cancer skin Anemia Father Cancer Heart disease Social History - Smoking History Smoking Status: Never smoker Hx Tobacco Use: No Hx Smoking Exposure: No - Alcohol Use Alcohol Usage: No - Substance Abuse Hx Substance Use: No - Occupation Occupation (List type of work in comments):: Retired - Hobbies, Recreation, Social Activities Hobbies: Sewing - [employer], CROSS STITCH, NEEDLE POINT, PINTREST, ADULT COLORING, READING , Other Recreational Activities: I am able to engage in all my recreational activities, I am able to engage in most, but not all activities Social Environment - Status Marital Status: - Current Living Arrangements Living Environment:: Spouse - Children How many children do you have?: 1 - SON 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 Left click = Reports ([place]) Review of Present Symptoms: Reports: Shortness of Breath at Rest, Shortness of Breath with Exertion - sometimes when the asthma starts to flare up,, Wound Healing, Fatigue - improving, Heart Arrhythmia/Irregularities - history of PVCs., Appetite - Normal, Appetite - Special Diet - no salt, low fat, low cholesterol. Denies: Dizziness/Lightheadedness - Pain Is Patient Pain Free?: No Pain Location: none - previous discomffort in the knees has improved since lossing about 10 pounds recently. Risk Factor Assessment - Chief Complaint Chief Complaint: Patient is a 67 [address] old female of Dr. Warner who was reffered to CR following a recent STEMI and PCI w/coronary stent. She has a foolow up appointment in October [address] Warner following her CR program. - Vital Signs Temperature: 98.7 F Respiratory Rate: 14 Pulse Ox: 97 Blood Pressure: 112/58 Nailbeds:: pink - Pulse Pulse Rate: 92 Pulse Rhythm: Regular - Hypertension How long have you been treated?: 112/58 Blood Pressure Sitting - Left Arm: 112/58 - Blood Cholesterol/Lipids Total Cholesterol (mg/dL) Goal = less than 200 mg/dL: 172 HDL Cholesterol (mg/dL) Goal = less than 40 mg/dL: 39 LDL Cholesterol (mg/dL) Goal = less than 70 mg/dL: 97 Triglycerides (mg/dL) Goal = less than 150 mg/dL: 179 - Diabetes Nutrition Referral for Diabetes: No - Obesity Height: 5 ft 1 in Weight:: 192 lb Weight in Pounds: 192.0 lbs Weight Source: Standing Scale Body Mass Index (BMI): 36.2 Desired Body Weight: 168 Nutritional Referral for Obesity: Yes - Physical Inactivity Physical Inactivity: None - Risk Stratification Risk Guidelines: Lowest Risk: Risk Factor for Smoking, Risk Factor for Diabetes, Risk Factor for Hypertension, Risk Factor for Depression, Moderate Risk: Risk Factor for Dyslipidemia, Risk Factor for Sedentary Lifestyle - does climb stair to TV room in basement frequently, Highest Risk: Risk Factor for Obesity - For Smoking Smoking Risk Guidelines: Smoking Low Risk: None or quit greater than 6 months ago. Smoking Moderate Risk: Smoker or quit 6 months or less ago. Smoking High Risk: Smoker - For Dyslipidemia Dyslipidemia Risk Guidelines: Low Risk: Moderate Risk: High Risk: 15-25% fat 25.1-29% fat >/= 30% fat. <7% sat fat 7-9% sat fat >9% sat fat. <150 mg chol 150-299 mg chol >/= 300 mg chol. LDL <100 LDL 100-129 LDL >/= 130. Chol/HDL ratio <5.0 Chol/HDL ratio 5.0-6.0 Chol/HDL ratio >6.0. Triglycerides <100 Triglycerides 100-149 Triglycerides >/= 150 - For Diabetes Mellitus Diabetes Risk Guidelines: Diabetes Low Risk: HgA1c <6.5% and/or FBG <120. Diabetes Moderate Risk: HgA1c 6.6-7.9% and/or FBG 120-180. Diabetes High Risk: HgA1c >/= 8% and/or FBG >180 - For Obesity/Overweight Obesity/Overweight Risk Guidelines: Obesity Low Risk: BMI <25.0. Obesity Moderate Risk: BMI 25-29.9. Obesity High Risk: BMI >/= 30.0 - For Hypertension Hypertension Risk Guidelines: Hypertension Low Risk: Systolic <120 and Diastolic <80. Hypertension Moderate Risk: Systolic 120-139 and Diastolic 80-89. Hypertension High Risk: Systolic >/= 140 and Diastolic >/= 90 - For Sedentary Lifestyle Sedentary Lifestyle Risk Guidelines: Sedentary Lifestyle Low Risk: >/= 1,500 kcal/week. Sedentary Lifestyle Moderate Risk: 700-1,499 kcal/week. Sedentary Lifestyle High Risk: < 700 kcal/week - For Depression Depression Risk Guidelines: Depression Low Risk: Not clinically depressed. Depression Moderate Risk: Mildly depressed. Depression High Risk: Clinically depressed - Family History Family History: Family History (Last Updated 07/03/18 @ 15:12 by Diane Bassett) Mother Cancer Anemia Father Cancer Heart disease Motivation - Motivation to Participate On a scale of 1 to 10, how prepared are you to commit to attending program?: 10 What do you see as barriers to successfully being able to complete the program?: asthma What do you see as the benefits of succesfully completing the program? In other words, what do you hope to get out of participating in the program?: no down sides to this program, it's all positive Are there issues you are dealing with that will interfere with completing the program?: none; recent onset of cough that started on Tuesday/Tuesday dry persistent Do you have a spouse or signficant other, family or friends who will help support you to complete the program?: yes
[2018-07-20 12:53] VITALS: BP 112/58; PULSE 92; RESP 14; TEMP 37.1; O2SAT 97; BMI 36.2
--- NOTE | 2018-07-20 13:33 | CR.ITP_ITS ---
General Information - General Information Admitting Diagnosis: STEMI, PCI W/STENTING - Education/Goals Barriers to Learning: Vision Impairment Individual Counseling: Initial Assessment: Abnormal Cholesterol Levels, High Blood Pressure, Overweight/Obesity Cardiac Rehabilitation Goals: 1. Maintain the individual as the primary focus of care. 2. To improve the patient's quality of life. 3. Identification of cardiac risk factors and provide cardiac risk factor management. 4. Enhance the psychosocial status of the patient. 5. Reconditioning enough to allow the patient to resume customary activities. 6. Control symptoms of cardiac disease Scale for measuring improvement of personal goals: Enter appropriate number in Comments. 2 = Unchanged. 3 = Slightly Better. 4 = Moderate Improvement. 5 = Met my Goal Personal Goals: Initial Assessment: Improve energy level, Get back to work, or to resume activities faster, Improve knowledge of cardiac disease, Improve muscle strength and endurance, Improve diet and eating habits (eat healthier), Control risk factors (learn risk factor modification) Exercise - Initial Assessment - Visit Date of Eval: 07/20/18 Session #:: 0 - STARTING ON 07/24/18 - Stages of Change Stages of Change:: Action - Stress Test Date: 07/12/18 - STRESS ECHO - Exercise Prescription Mode:: Treadmill, Rower, Airdyne, NuStep Angina with exercise?: No Target Heart Rate:: 114-122 - Hypertension Do any of the following apply?: Yes, Medication Resting Blood Pressure:: 112/58 Peak Exercise Blood Pressure:: 138/73 - Intervention Home Exercise/Activity Goal:: Moderate Exercise 30 min/day x 5 days/wk - Education Goals:: Warm-up, RPE MAYDA Scale, S/S, Safe Exercise, Self-Monitoring - Exercise Program Goals Exercise Program Goals: Aerobic Activity >30 min Nutrition - Initial Assessment - Program Goals Nutrition Program Goals: LDL <70. Total Cholesterol <200. HDL >45. Triglycerides <150. HgbA1C <7%. BMI <25 - Visit Date of Assessment:: 07/20/18 - Stages of Change Stages of Change:: Action - Lipids Total Cholesterol (mg/dL) Goal = less than 200 mg/dL: 172 HDL Cholesterol (mg/dL) Goal = less than 45 mg/dL: 39 LDL Cholesterol (mg/dL) Goal = less than 70 mg/dL: 97 Triglycerides (mg/dL) Goal = less than 150 mg/dL: 179 - Diabetes Diabetes:: No - Weight Management Height: 5 ft 1 in Weight:: 192 lb - . Weight Goal (kg):: 168 lb Body Fat %:: 36.2 - Intervention Referral to dietitian:: Yes - PATIENT COULD BENEFIT FROM [facility] PROGRAM Referral to Diabetic Clinic:: No Will attend diet classes:: Yes - Education Gave educational materials for:: Healthy eating Tobacco - Initial Assessment - Program Goals Tobacco Program Goals: Complete smoking cessation. Attend education classes. Improve Knowledge Test score - Stage of Change Stages of Change:: Action - Learning Barriers Learning Barriers: Vision, Ready to Learn - Family Support Do you have family support?: Yes - Tobacco Use Tobacco Use: Non-smoker Do you use smokeless tobacco?: No - Intervention Smoking Cessation Referral:: No Individual Education/Counseling:: No Education Schedule Given:: Yes - Education Gave educational material for:: Coronary artery disease, Risk factors, Sexuality, Medical compliance, Cardiac A&P, Angina signs & symptoms Psychosocial - Initial Assess - Target Goals Target Goals: Assess presence or absence of depression. Using a valid screening tool, maximizes coping skills. Positive support system - Stages of Change Stages of Change:: Action - Psychosocial Test Tool Used:: HANDS Depression Questionnaire - Intervention PS - Interventions: Yes Attend Stress Management Classes, Yes Uses Stress Management Skills, No Referral to Mental Health, No Referral to [facility] Case Management, No Referral to Physician - Education Gave educational materials for:: Coping techniques, Signs & symptoms of depression, Stress management, Relaxation techniques - Patient/Program Goal Preventative Medication(s):: Aspirin, Clopidogrel, Beta davis, Statin/lipid - Assistive Devices Assistive Devices:: None Fall Risk Assessed:: Yes Patient Health Questionnaire Initial Assessment 1. Little interest or pleasure in doing things: Not at all 2. Feeling down, depressed, or hopeless: Not at all 3. Trouble falling or staying asleep, or sleeping too much: Several days 4. Feeling tired or having little energy: Not at all 5. Poor appetite or overeating: Not at all 6. Feeling bad about yourself -- or that you are a failure or have let yourself or your family down: Not at all 7. Trouble concentrating on things, such as reading the newspaper or watching television: Not at all 8. Moving or speaking so slowly that other people could have noticed. Or the opposite - being so fidgety or restless that you have been moving around a lot more than usual: Not at all 9. Thoughts that you would be better off , or of hurting yourself in some way: Not at all How difficult have these problems made it for you to do your work, take care of things at home, or get along with other people?: Not difficult at all Total Score: 1 KIRK-Q SV Test - Statements CAD is a disease of the arteries in the heart: False Examples of risk factors for heart disease: True Angina is chest pain or discomfort: True The benefits of resistance training include: True Eating more meat and dairy products: False Anti-platelet medications such as aspirin are important: True The only effective way to manage stress: False An exercise warm-up slowly increases heart rate: True Prepared, processed foods usually have high sodium: True Depression is common after a heart attack: True The statin medications lower cholesterol: True To control blood pressure, lower the amount of sodium: True If someone gets chest discomfort during walking: False Transfats are partially hydrogenated vegetable oils: True Sleep apnea that is not treated increases the risk: False To control cholesterol, one should become a vegetarian: False Someone knows if he/she is exercising at the right level: True Diabetes cannot be prevented with exercise & health eating: False Stress is a large risk for heart attack: True A diet that can help lower blood pressure is rich in: True - Total Score Total Correct Responses: 20 Self-Efficacy Initial Assessment We would like to know how confident you are in doing certain activities. Please select your confidence level for:: Select your confidence level for the following using the scale 1-10 where 1 is not at all confident and 10 is totally confident. Your score is the average of all 6 responses. Fatigue: How confident are you that you can keep the fatigue caused by your disease from interfering with the things you want to do? Select Number: 8 Physical Discomfort or Pain: How confident are you that you can keep the physical discomfort or pain of your disease from interfering with the things you want to do? Select Number: 8 Emotional Distress: How confident are you that you can keep the emotional distress caused by your disease from interfering with the things you want to do? Select Number: 10 Other Symptoms or Health Problems: How confident are you that you can keep other symptoms or health problems from interfering with the things you want to do? Select Number: 7 Different Tasks and Activities: How confident are you that you can do the different tasks and activities needed to manage your health condition so as to reduce your need to see a doctor? Select Number: 8 Medication: How confident are you that you can do things other than just taking medication to reduce how much your illness affects your everyday life? Select Number: 8 Total Score:: 8 Nutrition Survey - Nutrition Survey Instructions Scoring Instructions: Scoring is as follows: Yes = 1 points. No = 0 point. Patient score that is >/=12 is considered to be at potential nutritional risk and could benefit from a referral to a registered dietitian. - Nutrition Survey Initial Have you lost >10 lbs over the past 2 months without trying?: Yes Are you following a special diet at home for diabetes, low fat, or low salt?: Yes Are you interested in meeting with a dietitian for help understanding your diet?: No Do you eat less than 3 meals a day?: No Do you eat fatty meats (gan, sausage, ribs, etc), fried foods, desserts, large amounts of salad dressings, margarine, butter, or cheese most days?: No Do you have food allergies? [Enter types in comment field]: No Do you eat in restaurants more than 3 times a week?: Yes - SOMETIMES Do you season food with salt, seasoning salt, or garlic salt?: No Do you used canned, boxed, frozen meals, or soups, seasoning packets?: No - RARELY Total Score:: 3
[2018-07-20 13:37] VITALS: BP 112/58; BP 138/73
== END ==
PROVIDERS: Family Provider Family Medicine; PCP Family Medicine; Referring Provider Internal Medicine Cardiovascular Disease; Visit Provider Internal Medicine Cardiovascular Disease
DX: I25.2 Old myocardial infarction (principal); Z95.5 Presence of coronary angioplasty implant and graft

== ENCOUNTER 2018-07-24 07:07 | Outpatient (RCR) | payer MEDICARE, SELFPAY ==
[2018-06-21 08:53] VITALS: BMI 38.3
[2018-07-20 12:53] VITALS: BMI 36.2
== END 2018-07-27 23:59 ==
LOC: CR 07:07
PROVIDERS: Family Provider Family Medicine; PCP Family Medicine; Referring Provider Internal Medicine Cardiovascular Disease; Visit Provider Internal Medicine Cardiovascular Disease
DX: I21.3 ST elevation (STEMI) myocardial infarction of unspecified site (principal); Z95.5 Presence of coronary angioplasty implant and graft
CPT/HCPCS: 93798

== ENCOUNTER 2018-08-09 17:08 | Observation (INO) | payer MEDICARE, SELFPAY ==
[2018-06-21 08:53] VITALS: BMI 38.3
[2018-07-20 12:53] VITALS: BMI 36.2
[2018-08-09] VITALS (9 sets, daily range): BP systolic 100–163; BP diastolic 61–79; PULSE 86–111; RESP 16–22; TEMP 36.6–36.9; O2SAT 93–98; BMI 35.9; BMI 35.4
--- NOTE | 2018-08-09 17:26 | EKG12_ITS ---
Test Reason : ARM PAIN Blood Pressure : / mmHG Vent. Rate : 100 BPM Atrial Rate : 100 BPM P-R Int : 140 ms QRS Dur : 064 ms QT Int : 344 ms P-R-T Axes : 037 -13 014 degrees QTc Int : 443 ms Normal sinus rhythm Inferior infarct , age undetermined Abnormal ECG Confirmed by EUGENIO KAY, NELLI ([id number]), video effects editor TRIXIE LAMBERT ([id number]) on 08/15/2018 11:14:19 AM Referred By: Andrew Warner Confirmed By:NELLI BECKER MD
--- NOTE | 2018-08-09 17:26 | RAD_ITS ---
STUDY: X-RAY CHEST REASON FOR EXAM: Female, 68 years old. Recent [place], left-sided arm pain and numbness TECHNIQUE: Single AP portable view of the chest. COMPARISON: Prior study of 06/20/2018 FINDINGS: The lungs are clear and expanded. There is no demonstrated pleural abnormality. Normal size heart. Normal mediastinum and estelita. Normal visualized pulmonary arteries. Normal visualized aortic arch and descending thoracic aorta. Normal visualized thoracic spine. Normal visualized ribs, clavicles, and shoulders. There is no demonstrated abnormality of the visualized soft tissue structures of the upper abdomen. RAD/Chest 1 View (Portable) IMPRESSION: Normal x-ray examination of the chest. Electronically Signed: Adi Hammond MD at 17:40 EST , Service support ,
--- NOTE | 2018-08-09 17:40 | ED.DCSUM_ITS ---
- ER Visit Summary Date of Service: 08/09/18 Chief Complaint: Chest pain, left shoulder pain. History of Present Illness: The patient is a 68 F presenting with chest pain and left shoulder pain. This started after cardiac rehab today. She complains of left shoulder pain which started around 2 PM. She also has chest pain associated with this. She had a STEMI on 2017 and had 2 stents placed at that time. She is on Brilinta. She states this feels similar to her heart attack but not as severe. Physical Examination: Vitals are stable. Patient is afebrile. Alert no acute distress. HEENT exam is unremarkable. Neck is supple. Lungs are clear and equal bilaterally. Heart is regular rate and rhythm. Abdomen is soft nontender nondistended. Extremities are unremarkable. Skin is warm and dry. No focal neurologic deficit. Remainder of exam is unremarkable. Emergency Department Course and Treatment: She was given aspirin, morphine, Zofran. EKG is sinus rate of 100 with no acute ischemic changes. CBC, chemistries unremarkable other than potassium 3.3, glucose 137. Troponin is negative. Chest x-ray shows no acute process. On reevaluation, patient is feeling improved. Discussed with the hospitalist for observation Disposition: Observation Impression: Chest pain, left arm pain This note was generated with [employer] dictation software. It may contain incorrect words, spelling, and punctuation that were not noted in review of the chart prior to signing ED Disposition - Plan for ED Patient: Referrals: Mikael Ramires DO [Primary Care Provider] -
[2018-08-09] MEDS: Aspirin 81 MG TAB.CHEW 324 MG PO (17:54)
[2018-08-09] MEDS: Ondansetron 4 MG/2 ML Vial IV (17:55)
[2018-08-09] MEDS: Morphine 4 MG/ML Syringe IV (17:55)
[2018-08-09 18:11] LABS: Absolute Lymphocyte Count 1.71 X10^3/ul (0.83-4.51); Absolute Neutrophil Count 6.7 X10^3/uL (2.0-7.7); Basophil# 0.02 X10^3/uL; Basophil% 0.2 % (0-1); Eosinophil# 0.14 X10^3/uL; Eosinophils% 1.5 % (0-5); Hematocrit 39.1 % (37-47); Hemoglobin 12.3 g/dl (12.0-15.0); Lymphocyte # 1.71 X10^3/ul (4.0); Lymphocyte % 18.7 % (19-41); Mean Corp Hgb Conc 31.5 g/gl (32-36); Mean Corpuscular Hgb 28.1 pg (27.0-32.0); Mean Corpuscular Volume 89.3 fL (81-99); Mean Platelet Vol. 10.2 fl (6.2-12.0); Monocyte# 0.54 X10^3/uL; Monocyte% 5.9 % (0-10); Neutrophil # 6.72 X10^3/uL (2.7-7.7); Neutrophil % 73.5 % (47-70); POSITIVE COUNT NO; POSITIVE DIFFERENTIAL NO; POSITIVE MORPHOLOGY NO; Platelet Count 189 K/mm3 (150-450); RBC Distribution Width CV 14.3 % (11.6-14.6); RBC Distribution Width SD 45.8 fl (35.1-43.9); Red Blood Count 4.38 M/mm3 (4.2-5.4); White Blood Count 9.2 K/mm3 (4.4-11.0)
[2018-08-09 18:31] LABS: BUN 13 mg/dL (7-18); BUN/Creat Ratio 17.4 RATIO (10-20); Calcium,Total 8.6 mg/dL (8.5-10.1); Chloride 106 mmol/L (98-107); Creatinine, Serum 0.74 mg/dL (0.55-1.02); EST Glomerular Filtration Rate 82 mL/min (>60); Est Glom Filt Rate - Afr Amer 100 mL/min (>60); Estimated Creatinine Clearance 40.63 ml/min; Glucose 137 mg/dL (74-106); Potassium 3.3 mmol/L (3.5-5.1); Sodium Level 139 mmol/L (136-145)
[2018-08-09 18:32] LABS: Anion Gap 10 (5-15)
--- NOTE | 2018-08-09 19:23 | PCM.HP.STD ---
Problem List (1) Chest pain Status: Acute Qualifiers: Chest pain type: unspecified Qualified Code(s): R07.9 - Chest pain, unspecified (2) HTN (hypertension) Status: Chronic Qualifiers: Hypertension type: essential hypertension Qualified Code(s): I10 - Essential (primary) hypertension (3) HLD (hyperlipidemia) Status: Chronic Qualifiers: Hyperlipidemia type: pure hypercholesterolemia Qualified Code(s): E78.00 - Pure hypercholesterolemia, unspecified; E78.0 - Pure hypercholesterolemia (4) Asthma Status: Chronic Qualifiers: Asthma severity: unspecified severity Asthma persistence: unspecified Asthma complication type: unspecified Qualified Code(s): J45.909 - Unspecified asthma, uncomplicated (5) Osteoarthritis of left shoulder Status: Chronic Qualifiers: Osteoarthritis type: unspecified Qualified Code(s): M19.012 - Primary osteoarthritis, left shoulder (6) Atherosclerotic heart disease of [place] coronary artery without angina pectoris Status: Chronic Qualifiers: [place] vs. transplanted heart: [place] heart Qualified Code(s): I25.10 - Atherosclerotic heart disease of [place] coronary artery without angina pectoris Comment: STEMI, ALLIE to mid lad (2.5 X 20 [employer]), ALLIE to proximal Diagonal #1 (2.25 X 16 [employer]) per Dr. Warner @ [facility] (7) Waldenstrom's macroglobulinemia Status: Chronic (8) GERD (gastroesophageal reflux disease) Status: Chronic Qualifiers: Esophagitis presence: esophagitis presence not specified Qualified Code(s): K21.9 - Gastro-esophageal reflux disease without esophagitis (9) Hypothyroidism Status: Chronic Qualifiers: Hypothyroidism type: unspecified Qualified Code(s): E03.9 - Hypothyroidism, unspecified (10) M?ni?re's disease Status: Chronic Qualifiers: Laterality: unspecified laterality Qualified Code(s): H81.09 - Meniere's disease, unspecified ear History of Present Illness Date of Admission: 08/09/18 Chief Complaint: Chest pain The patient is a 68 y/o w/ PMHx: GERD, HTN, HLD, Hypothyroidism, Obesity, IBS, Meniere's disease, Chronic L shoulder Osteoarthritis and prior Rotator cuff damage, Chronic LUE paresthesias w/ Ulnar Neuropathy, Waldenstrom's Macroglobulinemia, recent presentation 05/2018 with chest pain w/ STEMI with PCI x [address] Warner 06/20/19 who now represents to the [facility] ED on 08/09/18 from Cardiac rehabilitation with patient noting that she was using her left shoulder much more during therapies and was having more shoulder discomfort recently with activity with increased L shoulder discomfort with no specific chest discomfort otherwise with onset anxiety during her activities as concerned possibly associated with recent stents prompting referral to the ED. patient notes the discomfort in the shoulder is 10 out of 10. 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 She had no associated dyspnea, diaphoresis, nausea or emesis. She notes she was specifically doing an exercise machine where she moves her arms back and forth. Work-up in the ED included T 98.4, heart rate initially 111, BP 163/77--> heart rate 95, BP 112/65, respiratory rate 16, 98% on room air, unremarkable CBC, BMP with potassium 3.3, glucose 137, troponin < 0.015, EKG with sinus rhythm with no acute evidence of ischemia, chest x-ray with no acute cardiopulmonary process. In the ED patient administered Zofran, morphine, aspirin therapy. Past Medical History Past Medical History (Chronic Problems): Chronic Problems (Last Updated 06/21/18 @ 15:50 by Liana Guadalupe) HTN (hypertension) (Chronic) HLD (hyperlipidemia) (Chronic) Asthma (Chronic) Osteoarthritis of left shoulder (Chronic) Stented coronary artery (Chronic 06/20/18) STEMI, ALLIE to mid lad (2.5 X 20 [employer]), ALLIE to proximal Diagonal #1 (2.25 X 16 [employer]) per Dr. Warner @ [facility] Atherosclerotic heart disease of [place] coronary artery without angina pectoris (Chronic) STEMI, ALLIE to mid lad (2.5 X 20 [employer]), ALLIE to proximal Diagonal #1 (2.25 X 16 [employer]) per Dr. Warner @ [facility] Waldenstrom's macroglobulinemia (Chronic) GERD (gastroesophageal reflux disease) (Chronic) Hypothyroidism (Chronic) M?ni?re's disease (Chronic) Medical History: Medical History (Last Updated 06/21/18 @ 15:50 by Liana Guadalupe) Atherosclerotic heart disease of [place] coronary artery without angina pectoris (Chronic) I25.10 STEMI, ALLIE to mid lad (2.5 X 20 [employer]), ALLIE to proximal Diagonal #1 (2.25 X 16 [employer]) per Dr. 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 Retinal tear of left eye H33.312 SOB (shortness of breath) R06.02 Thyroid disease E07.9 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 Vitamin D deficiency E55.9 Allergies clarithromycin [From Biaxin] Allergy (Verified 08/09/18 17:11) Rash sulfamethoxazole [From Bactrim] Allergy (Verified 08/09/18 17:11) Rash trimethoprim [From Bactrim] Allergy (Verified 08/09/18 17:11) Rash codeine Adverse Reaction (Verified 08/09/18 17:11) Upset Stomach Penicillins Adverse Reaction (Verified 08/09/18 17:11) Other Home Medications: Ambulatory Orders Medication Instructions Recorded Hydrochlorothiazide [Hctz] 12.5 mg PO DAILY 12/31/16 Levothyroxine [Synthroid] 50 mcg PO DAILY 12/31/16 Aspirin E.C. [Ecotrin] 81 mg PO DAILY@0800 tab 06/21/18 atorvastatin 80 mg tablet 80 mg PO QHS #90 tab 07/03/18 carvedilol 3.125 mg tablet 3.125 mg PO BID #180 tab 07/03/18 lisinopril 5 mg tablet 5 mg PO DAILY #90 tab 07/03/18 metronidazole 0.75 % topical cream 1 applicatio TOPICAL DAILY 68 Days 07/03/18 #135 g Albuterol Sulfate [Ventolin Hfa] 2 puff IN DAILY 08/09/18 Omeprazole 40 mg PO DAILY 08/09/18 Potassium Chloride [Klor-Con M20] 10 meq PO DAILY 08/09/18 Ticagrelor [Brilinta] 1 tab PO BID 08/09/18 Surgical History: Surgical History (Last Updated 07/03/18 @ 15:11 by Diane Bassett) Stented coronary artery (Chronic) Onset Date: 06/20/18 Z95.5 STEMI, ALLIE to mid lad (2.5 X 20 [employer]), ALLIE to proximal Diagonal #1 (2.25 X 16 [employer]) per Dr. Warner @ [facility] History of delivery Z98.891 History of dilatation and curettage Z98.890 Hx of breast biopsy Z98.890 Hx of tonsillectomy Z98.890, Z90.89 Surgical History: tonsillectomy, - - section, D+C, Breast Bx, T+A, PCI x 2. 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 Paternal Family History: Family History (Last Updated 07/03/18 @ 15:12 by Diane Bassett) Mother Cancer Anemia Father Cancer Heart disease History Items: - - Patient notes a paternal family history of heart disease and cancer. Review of Systems Constitutional: Reports: Weakness, Fatigue. Denies: Chills, Fever, Weight Change HEENT: Denies: Head Aches, Sinus Congestion, Sinus Drainage Cardiovascular: Denies: Chest Pain, Chest Pressure, Chest Tightness, Heaviness, Light Headedness, Orthopnea, Palpitations, Syncope Respiratory: Denies: Cough, Shortness of Breath, Shortness of breath at rest, Shortness of breath upon exertion, Sputum production Gastrointestinal: Denies: Abdominal Pain, Nausea, Vomiting Genitourinary: Denies: Dysuria Musculoskeletal: Reports: Arm Pain, Joint Pain, Shoulder Pain. Denies: Joint Tenderness Skin: Denies: Rash, Wounds Neurological: Denies: Numbness, Tingling, Focal weakness Psychiatric: Denies: Anxiety, Depression, Homicidal Ideations, Suicidal Ideations Hematologic/ Lymphatic: Reports: Easy Bruising, Easy Bleeding VTE Information - Inpt Only VTE Present on Admission: No VTE Mechan Device Prophylaxis: SCD's VTE Pharm Prophylaxis ordered?: Yes Patient Problems: Active and Suspected Problems (Last Updated 06/21/18 @ 15:50 by Liana Guadalupe) Chest pain (Acute) Subjective: Seated upright in ED bed, notes ongoing mild discomfort of left shoulder which is worse with palpation and movement Objective: Physical Examination: General: awake, alert, oriented x 3 and cooperative, seated upright in the ED bed, notes still some discomfort the left shoulder, improved since initial presentation but worsened with movement and palpation. Skin: normal color, turgor, no icterus, cyanosis. HEENT: AT/NC, EOMI, PERRLA, MMM, no carotid bruits or JVD noted. Lungs: CTA bilaterally, moderate effort, mild decrease BL bases, no rales, ronchi or wheezing. Heart: Regular rate and rhythm; no gallop, rub audible, reproducible discomfort with palpation of the shoulder and with certain movements. Abdomen: soft, obese, NTTP, ND, normal BS, no HSM. Extremities: no cyanosis, clubbing, BL LE ankle edema, discomfort with palpation of the left shoulder joint as well as with certain movements of the shoulder. Neurological: patient awake, alert, oriented x 3; cognitive function intact; pupils equally reactive to light and accomodation; cranial nerves II-XII grossly normal, moving all 4 extremities although limited left upper extremity shoulder movement with worsened pain with certain movements and also with palpation of the joint, no focal deficits, strength mildly to moderately globally decreased secondary to acute presentation. Psychiatric: affect appears normal, no acute evidence of depressive or anxiety feelings. - Physical Exam Vital Signs Temp Pulse Resp BP Pulse Ox 98.4 F 95 16 112/65 94 08/09/18 17:09 08/09/18 19:02 08/09/18 19:02 08/09/18 19:02 08/09/18 19:02 Oxygen Delivery Method Room Air Weight: 190 lb 8 oz Body Mass Index (BMI) 35.9 Laboratory Tests Past 24 Hrs 08/09/18 08/09/18 18:00 18:00 WBC 9.2 RBC 4.38 Hgb 12.3 Hct 39.1 MCV 89.3 MCH 28.1 MCHC 31.5 L RDW 14.3 RDW Differential 45.8 H Plt Count 189 MPV 10.2 Immature Gran % (Auto) 0.200 Neut % (Auto) 73.5 H Lymph % (Auto) 18.7 L [place] % (Auto) 5.9 Eos % (Auto) 1.5 Baso % (Auto) 0.2 Absolute Neuts (auto) 6.7 Absolute Lymphs (auto) 1.71 Total Counted Not Reportable Sodium 139 Potassium 3.3 L Chloride 106 Carbon Dioxide 23.0 Anion Gap 10 BUN 13 Creatinine 0.74 Estim Creat Clear Calc 40.63 Est GFR (MDRD) Af Amer 100 Est GFR (MDRD) Non-Af 82 BUN/Creatinine Ratio 17.4 Glucose 137 H Calcium 8.6 Troponin I < 0.015 Assessment/Plan All Active Problems (Last Updated 06/21/18 @ 15:50 by Liana Guadalupe) Chest pain (Acute) Acute ST elevation myocardial infarction (Acute) The patient is a 68 y/o w/ PMHx: GERD, HTN, HLD, Hypothyroidism, Obesity, IBS, Meniere's disease, Chronic L shoulder Osteoarthritis and prior Rotator cuff damage, Chronic LUE paresthesias w/ Ulnar Neuropathy, Waldenstrom's Macroglobulinemia, recent presentation 05/2018 with chest pain w/ STEMI with PCI x [address] Warner 06/20/19 who now represents to the [facility] ED on 08/09/18 from Cardiac rehabilitation with patient noting that she was using her left shoulder much more during therapies and was having more shoulder discomfort recently with activity with increased L shoulder discomfort with no specific chest discomfort otherwise with onset anxiety during her activities as concerned possibly associated with recent stents prompting referral to the ED. (1) Atypical Chest Pain, reducible, suspected musculoskeletal etiology: Work-up in the ED included T 98.4, heart rate initially 111, BP 163/77--> heart rate 95, BP 112/65, respiratory rate 16, 98% on room air, unremarkable CBC, BMP with potassium 3.3, glucose 137, troponin < 0.015, EKG with sinus rhythm with no acute evidence of ischemia, chest x-ray with no acute cardiopulmonary process. Will admit to PCU, place on a monitored bed to assure no acute myocardial infarction with serial cardiac enzymes and EKGs. ASA, NG, morphine. Given discomfort reproducible upon examination with movement of the shoulder and recent increased activity with specific usage of the left upper extremity if workup as noted unremarkable plan discharge to home in a.m. with follow-up outpatient with cardiology. (2) Hypokalemia: Admission K+ 3.7, supplementation given, repeat level in AM. (3) Hyperglycemia: Initial glucose 137, HgbA1c pending. (4) Chronic left upper extremity paresthesias, osteoarthritis: Suspect likely etiology for acute presentation as noted with increased activity, chronic neuropathy with ulnar neuropathy. (5) CAD: Patient status post STEMI 05/2018 s/p ALLIE mid LAD and proximal/mid diagonal per Dr. Douglas, continue home regimen asa, brillinta, statin, BB. (6) Hypertension: Continue home regimen including hydrochlorothiazide, Coreg, lisinopril, PRN hydralazine. (7) Hyperlipidemia: Continue home statin regimen. AM FLP. (8) Obesity: Weight loss and lifestyle changes encouraged. (9) Hypothyroidism: Continue home synthroid regimen. (10) GERD: PPI. (11) DVT prophylaxis: SCD, Lovenox. Code Visit OBSV E&M: 80731 Initial observation care L3
--- NOTE | 2018-08-09 19:29 | HP.PCM_ITS ---
Problem List (1) Chest pain Status: Acute Qualifiers: Chest pain type: unspecified Qualified Code(s): R07.9 - Chest pain, unspecified (2) HTN (hypertension) Status: Chronic Qualifiers: Hypertension type: essential hypertension Qualified Code(s): I10 - Essential (primary) hypertension (3) HLD (hyperlipidemia) Status: Chronic Qualifiers: Hyperlipidemia type: pure hypercholesterolemia Qualified Code(s): E78.00 - Pure hypercholesterolemia, unspecified; E78.0 - Pure hypercholesterolemia (4) Asthma Status: Chronic Qualifiers: Asthma severity: unspecified severity Asthma persistence: unspecified Asthma complication type: unspecified Qualified Code(s): J45.909 - Unspecified asthma, uncomplicated (5) Osteoarthritis of left shoulder Status: Chronic Qualifiers: Osteoarthritis type: unspecified Qualified Code(s): M19.012 - Primary osteoarthritis, left shoulder (6) Atherosclerotic heart disease of [place] coronary artery without angina pectoris Status: Chronic Qualifiers: [place] vs. transplanted heart: [place] heart Qualified Code(s): I25.10 - Atherosclerotic heart disease of [place] coronary artery without angina pectoris Comment: STEMI, ALLIE to mid lad (2.5 X 20 [employer]), ALLIE to proximal Diagonal #1 (2.25 X 16 [employer]) per Dr. Warner @ [facility] (7) Waldenstrom's macroglobulinemia Status: Chronic (8) GERD (gastroesophageal reflux disease) Status: Chronic Qualifiers: Esophagitis presence: esophagitis presence not specified Qualified Code(s): K21.9 - Gastro-esophageal reflux disease without esophagitis (9) Hypothyroidism Status: Chronic Qualifiers: Hypothyroidism type: unspecified Qualified Code(s): E03.9 - Hypothyroidism, unspecified (10) M?ni?re's disease Status: Chronic Qualifiers: Laterality: unspecified laterality Qualified Code(s): H81.09 - Meniere's disease, unspecified ear History of Present Illness Date of Admission: 08/09/18 Chief Complaint: Chest pain The patient is a 68 y/o w/ PMHx: GERD, HTN, HLD, Hypothyroidism, Obesity, IBS, Meniere's disease, Chronic L shoulder Osteoarthritis and prior Rotator cuff damage, Chronic LUE paresthesias w/ Ulnar Neuropathy, Waldenstrom's Macroglobulinemia, recent presentation 05/2018 with chest pain w/ STEMI with PCI x [address] Warner 06/20/19 who now represents to the [facility] ED on 08/09/18 from Cardiac rehabilitation with patient noting that she was using her left shoulder much more during therapies and was having more shoulder discomfort recently with activity with increased L shoulder discomfort with no specific chest discomfort otherwise with onset anxiety during her activities as concerned possibly associated with recent stents prompting referral to the ED. patient notes the discomfort in the shoulder is 10 out of 10. 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 She had no associated dyspnea, diaphoresis, nausea or emesis. She notes she was specifically doing an exercise machine where she moves her arms back and forth. Work-up in the ED included T 98.4, heart rate initially 111, BP 163/77--> heart rate 95, BP 112/65, respiratory rate 16, 98% on room air, unremarkable CBC, BMP with potassium 3.3, glucose 137, troponin < 0.015, EKG with sinus rhythm with no acute evidence of ischemia, chest x-ray with no acute cardiopulmonary process. In the ED patient administered Zofran, morphine, aspirin therapy. Past Medical History Past Medical History (Chronic Problems): Chronic Problems (Last Updated 06/21/18 @ 15:50 by Liana Guadalupe) HTN (hypertension) (Chronic) HLD (hyperlipidemia) (Chronic) Asthma (Chronic) Osteoarthritis of left shoulder (Chronic) Stented coronary artery (Chronic 06/20/18) STEMI, ALLIE to mid lad (2.5 X 20 [employer]), ALLIE to proximal Diagonal #1 (2.25 X 16 [employer]) per Dr. Warner @ [facility] Atherosclerotic heart disease of [place] coronary artery without angina pectoris (Chronic) STEMI, ALLIE to mid lad (2.5 X 20 [employer]), ALLIE to proximal Diagonal #1 (2.25 X 16 [employer]) per Dr. Warner @ [facility] Waldenstrom's macroglobulinemia (Chronic) GERD (gastroesophageal reflux disease) (Chronic) Hypothyroidism (Chronic) M?ni?re's disease (Chronic) Medical History: Medical History (Last Updated 06/21/18 @ 15:50 by Liana Guadalupe) Atherosclerotic heart disease of [place] coronary artery without angina pectoris (Chronic) I25.10 STEMI, ALLIE to mid lad (2.5 X 20 [employer]), ALLIE to proximal Diagonal #1 (2.25 X 16 [employer]) per Dr. 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 Retinal tear of left eye H33.312 SOB (shortness of breath) R06.02 Thyroid disease E07.9 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 Vitamin D deficiency E55.9 Allergies clarithromycin [From Biaxin] Allergy (Verified 08/09/18 17:11) Rash sulfamethoxazole [From Bactrim] Allergy (Verified 08/09/18 17:11) Rash trimethoprim [From Bactrim] Allergy (Verified 08/09/18 17:11) Rash codeine Adverse Reaction (Verified 08/09/18 17:11) Upset Stomach Penicillins Adverse Reaction (Verified 08/09/18 17:11) Other Home Medications: Ambulatory Orders Medication Instructions Recorded Hydrochlorothiazide [Hctz] 12.5 mg PO DAILY 12/31/16 Levothyroxine [Synthroid] 50 mcg PO DAILY 12/31/16 Aspirin E.C. [Ecotrin] 81 mg PO DAILY@0800 tab 06/21/18 atorvastatin 80 mg tablet 80 mg PO QHS #90 tab 07/03/18 carvedilol 3.125 mg tablet 3.125 mg PO BID #180 tab 07/03/18 lisinopril 5 mg tablet 5 mg PO DAILY #90 tab 07/03/18 metronidazole 0.75 % topical cream 1 applicatio TOPICAL DAILY 68 Days 07/03/18 #135 g Albuterol Sulfate [Ventolin Hfa] 2 puff IN DAILY 08/09/18 Omeprazole 40 mg PO DAILY 08/09/18 Potassium Chloride [Klor-Con M20] 10 meq PO DAILY 08/09/18 Ticagrelor [Brilinta] 1 tab PO BID 08/09/18 Surgical History: Surgical History (Last Updated 07/03/18 @ 15:11 by Diane Bassett) Stented coronary artery (Chronic) Onset Date: 06/20/18 Z95.5 STEMI, ALLIE to mid lad (2.5 X 20 [employer]), ALLIE to proximal Diagonal #1 (2.25 X 16 [employer]) per Dr. Warner @ [facility] History of delivery Z98.891 History of dilatation and curettage Z98.890 Hx of breast biopsy Z98.890 Hx of tonsillectomy Z98.890, Z90.89 Surgical History: tonsillectomy, - - section, D+C, Breast Bx, T+A, PCI x 2. 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 Paternal Family History: Family History (Last Updated 07/03/18 @ 15:12 by Diane Bassett) Mother Cancer Anemia Father Cancer Heart disease History Items: - - Patient notes a paternal family history of heart disease and cancer. Review of Systems Constitutional: Reports: Weakness, Fatigue. Denies: Chills, Fever, Weight Change HEENT: Denies: Head Aches, Sinus Congestion, Sinus Drainage Cardiovascular: Denies: Chest Pain, Chest Pressure, Chest Tightness, Heaviness, Light Headedness, Orthopnea, Palpitations, Syncope Respiratory: Denies: Cough, Shortness of Breath, Shortness of breath at rest, Shortness of breath upon exertion, Sputum production Gastrointestinal: Denies: Abdominal Pain, Nausea, Vomiting Genitourinary: Denies: Dysuria Musculoskeletal: Reports: Arm Pain, Joint Pain, Shoulder Pain. Denies: Joint Tenderness Skin: Denies: Rash, Wounds Neurological: Denies: Numbness, Tingling, Focal weakness Psychiatric: Denies: Anxiety, Depression, Homicidal Ideations, Suicidal Ideations Hematologic/ Lymphatic: Reports: Easy Bruising, Easy Bleeding VTE Information - Inpt Only VTE Present on Admission: No VTE Mechan Device Prophylaxis: SCD's VTE Pharm Prophylaxis ordered?: Yes Patient Problems: Active and Suspected Problems (Last Updated 06/21/18 @ 15:50 by Liana Guadalupe) Chest pain (Acute) Subjective: Seated upright in ED bed, notes ongoing mild discomfort of left shoulder which is worse with palpation and movement Objective: Physical Examination: General: awake, alert, oriented x 3 and cooperative, seated upright in the ED bed, notes still some discomfort the left shoulder, improved since initial presentation but worsened with movement and palpation. Skin: normal color, turgor, no icterus, cyanosis. HEENT: AT/NC, EOMI, PERRLA, MMM, no carotid bruits or JVD noted. Lungs: CTA bilaterally, moderate effort, mild decrease BL bases, no rales, ronchi or wheezing. Heart: Regular rate and rhythm; no gallop, rub audible, reproducible discomfort with palpation of the shoulder and with certain movements. Abdomen: soft, obese, NTTP, ND, normal BS, no HSM. Extremities: no cyanosis, clubbing, BL LE ankle edema, discomfort with palpation of the left shoulder joint as well as with certain movements of the shoulder. Neurological: patient awake, alert, oriented x 3; cognitive function intact; pupils equally reactive to light and accomodation; cranial nerves II-XII grossly normal, moving all 4 extremities although limited left upper extremity shoulder movement with worsened pain with certain movements and also with palpation of the joint, no focal deficits, strength mildly to moderately globally decreased secondary to acute presentation. Psychiatric: affect appears normal, no acute evidence of depressive or anxiety feelings. - Physical Exam Vital Signs Temp Pulse Resp BP Pulse Ox 98.4 F 95 16 112/65 94 08/09/18 17:09 08/09/18 19:02 08/09/18 19:02 08/09/18 19:02 08/09/18 19:02 Oxygen Delivery Method Room Air Weight: 190 lb 8 oz Body Mass Index (BMI) 35.9 Laboratory Tests Past 24 Hrs 08/09/18 08/09/18 18:00 18:00 WBC 9.2 RBC 4.38 Hgb 12.3 Hct 39.1 MCV 89.3 MCH 28.1 MCHC 31.5 L RDW 14.3 RDW Differential 45.8 H Plt Count 189 MPV 10.2 Immature Gran % (Auto) 0.200 Neut % (Auto) 73.5 H Lymph % (Auto) 18.7 L [place] % (Auto) 5.9 Eos % (Auto) 1.5 Baso % (Auto) 0.2 Absolute Neuts (auto) 6.7 Absolute Lymphs (auto) 1.71 Total Counted Not Reportable Sodium 139 Potassium 3.3 L Chloride 106 Carbon Dioxide 23.0 Anion Gap 10 BUN 13 Creatinine 0.74 Estim Creat Clear Calc 40.63 Est GFR (MDRD) Af Amer 100 Est GFR (MDRD) Non-Af 82 BUN/Creatinine Ratio 17.4 Glucose 137 H Calcium 8.6 Troponin I < 0.015 Assessment/Plan All Active Problems (Last Updated 06/21/18 @ 15:50 by Liana Guadalupe) Chest pain (Acute) Acute ST elevation myocardial infarction (Acute) The patient is a 68 y/o w/ PMHx: GERD, HTN, HLD, Hypothyroidism, Obesity, IBS, Meniere's disease, Chronic L shoulder Osteoarthritis and prior Rotator cuff damage, Chronic LUE paresthesias w/ Ulnar Neuropathy, Waldenstrom's Macroglobulinemia, recent presentation 05/2018 with chest pain w/ STEMI with PCI x [address] Warner 06/20/19 who now represents to the [facility] ED on 08/09/18 from Cardiac rehabilitation with patient noting that she was using her left shoulder much more during therapies and was having more shoulder discomfort recently with activity with increased L shoulder discomfort with no specific chest discomfort otherwise with onset anxiety during her activities as concerned possibly associated with recent stents prompting referral to the ED. (1) Atypical Chest Pain, reducible, suspected musculoskeletal etiology: Work-up in the ED included T 98.4, heart rate initially 111, BP 163/77--> heart rate 95, BP 112/65, respiratory rate 16, 98% on room air, unremarkable CBC, BMP with potassium 3.3, glucose 137, troponin < 0.015, EKG with sinus rhythm with no acute evidence of ischemia, chest x-ray with no acute cardiopulmonary process. Will admit to PCU, place on a monitored bed to assure no acute myocardial infarction with serial cardiac enzymes and EKGs. ASA, NG, morphine. Given discomfort reproducible upon examination with movement of the shoulder and recent increased activity with specific usage of the left upper extremity if workup as noted unremarkable plan discharge to home in a.m. with follow-up outpatient with cardiology. (2) Hypokalemia: Admission K+ 3.7, supplementation given, repeat level in AM. (3) Hyperglycemia: Initial glucose 137, HgbA1c pending. (4) Chronic left upper extremity paresthesias, osteoarthritis: Suspect likely e tiology for acute presentation as noted with increased activity, chronic neuropathy with ulnar neuropathy. (5) CAD: Patient status post STEMI 05/2018 s/p ALLIE mid LAD and proximal/mid diagonal per Dr. Douglas, continue home regimen asa, brillinta, statin, BB. (6) Hypertension: Continue home regimen including hydrochlorothiazide, Coreg, lisinopril, PRN hydralazine. (7) Hyperlipidemia: Continue home statin regimen. AM FLP. (8) Obesity: Weight loss and lifestyle changes encouraged. (9) Hypothyroidism: Continue home synthroid regimen. (10) GERD: PPI. (11) DVT prophylaxis: SCD, Lovenox. Code Visit OBSV E&M: 05208 Initial observation care L3
--- NOTE | 2018-08-09 20:40 | EKG12_ITS ---
Test Reason : ADMIT Blood Pressure : / mmHG Vent. Rate : 084 BPM Atrial Rate : 084 BPM P-R Int : 154 ms QRS Dur : 070 ms QT Int : 364 ms P-R-T Axes : 032 -06 023 degrees QTc Int : 430 ms Normal sinus rhythm Possible Inferior infarct , age undetermined Abnormal ECG When compared with ECG of 24-JUN-2018 00:53, No significant change was found Confirmed by EUGENIO KAY, NELLI ([id number]), restaurant expeditor TRIXIE LAMBERT ([id number]) on 08/11/2018 9:16:48 AM Referred By: ADRIANA Confirmed By:NELLI BECKER MD
[2018-08-09] MEDS: Atorvastatin Calcium 80 MG Tablet PO (22:46)
[2018-08-09] MEDS: Carvedilol 3.125 MG TABLET PO (22:48)
[2018-08-09] MEDS: TICAGRELOR 90 MG TABLET PO (23:00)
[2018-08-10 02:40] LABS: Hemoglobin A1c 5.6 % (4.2-6.3)
[2018-08-10 02:55] VITALS: PULSE 75
[2018-08-10 03:10] VITALS: BP 114/65; PULSE 81; RESP 16; TEMP 36.4; O2SAT 94
[2018-08-10] MEDS: Levothyroxine 50 MCG Tablet PO (04:44)
--- NOTE | 2018-08-10 05:55 | EKG12_ITS ---
Test Reason : AM Blood Pressure : / mmHG Vent. Rate : 076 BPM Atrial Rate : 076 BPM P-R Int : 154 ms QRS Dur : 066 ms QT Int : 396 ms P-R-T Axes : 016 -01 023 degrees QTc Int : 445 ms Normal sinus rhythm Normal ECG When compared with ECG of 09-AUG-2018 20:39, MANUAL COMPARISON REQUIRED, DATA IS UNCONFIRMED Confirmed by EUGENIO KAY, NELLI ([id number]), associate entertainment editor TRIXIE LAMBERT ([id number]) on 08/11/2018 9:16:28 AM Referred By: Andrew Warner Confirmed By:NELLI BECKER MD
[2018-08-10 06:54] VITALS: PULSE 84
[2018-08-10 07:10] LABS: Hematocrit 36.8 % (37-47); Hemoglobin 11.3 g/dl (12.0-15.0); Mean Corp Hgb Conc 30.7 g/gl (32-36); Mean Corpuscular Volume 91.1 fL (81-99); Mean Platelet Vol. 10.7 fl (6.2-12.0); Platelet Count 184 K/mm3 (150-450); RBC Distribution Width CV 14.3 % (11.6-14.6); Red Blood Count 4.04 M/mm3 (4.2-5.4); White Blood Count 7.3 K/mm3 (4.4-11.0)
[2018-08-10 07:12] LABS: Scan Indicated on CBC? Y/N NO
[2018-08-10 07:27] LABS: AST(SGOT) 18 U/L (15-37); Alanine Aminotransfer ALT/SGPT 29 U/L (13-56); Albumin, Serum 3.2 g/dL (3.2-5.0); Alkaline Phosphatase 109 U/L (45-117); Anion Gap 8 (5-15); BUN 14 mg/dL (7-18); Calcium,Total 8.5 mg/dL (8.5-10.1); Chloride 109 mmol/L (98-107); Creatinine, Serum 0.67 mg/dL (0.55-1.02); EST Glomerular Filtration Rate 94 mL/min (>60); Est Glom Filt Rate - Afr Amer 113 mL/min (>60); Estimated Creatinine Clearance 40.63 ml/min; Globulin 3.3 g/dL (2.2-4.2); Glucose 111 mg/dL (74-106); Protein, Total 6.5 g/dL (6.4-8.2); Sodium Level 140 mmol/L (136-145)
[2018-08-10 07:35] VITALS: O2SAT 93
[2018-08-10] MEDS: Acetaminophen 325 MG Tablet 650 MG PO (07:52)
--- NOTE | 2018-08-10 09:34 | CASEMGMT ---
Patient has a Healthcare POA and Healthcare LW. She is aware these are not on file at [facility]. Her , Tae is her POA. Radha MIRANDA MSW
[2018-08-10 09:46] VITALS: BP 110/61; PULSE 83; RESP 16; TEMP 36.4; O2SAT 94
[2018-08-10] MEDS: Pantoprazole Sodium 40 MG Tablet PO (09:47)
[2018-08-10] MEDS: Carvedilol 3.125 MG TABLET PO (09:47)
[2018-08-10] MEDS: Aspirin E.C. 81 MG Tablet PO (09:48)
[2018-08-10] MEDS: TICAGRELOR 90 MG TABLET PO (09:48)
[2018-08-10] MEDS: Enoxaparin 40 MG/0.4 ML Syringe SC (09:48)
[2018-08-10] MEDS: hydroCHLOROthiazide 12.5mg 12.5 MG PO (09:48)
[2018-08-10] MEDS: Lisinopril 5 MG Tablet PO (09:48)
[2018-08-10 10:57] VITALS: PULSE 85
--- NOTE | 2018-08-10 11:38 | PCM.DC ---
- Discharge Diagnoses Current Active Problems: Current Active and Chronic Problems (Last Updated 06/21/18 @ 15:50 by Liana Guadalupe) Chest pain (Acute) HTN (hypertension) (Chronic) HLD (hyperlipidemia) (Chronic) Asthma (Chronic) Osteoarthritis of left shoulder (Chronic) You will use the following diet at home:: Cardiac Your food should be the consistency of: Regular Your liquids should be the consistency of: Regular/Thin Discharge Activity: Return to Normal Activity Weight Bearing Status: Weight bearing as tolerated Call your doctor if you observe: Fever of 101 or Higher, Chest pain, Uncontrolled pain Additional Instructions: immobilise wrist in wrist brace. To have outpatient PT/OT for pain in wrist. Allergies/Adverse Reactions: Allergies clarithromycin [From Biaxin] Allergy (Verified 08/09/18 17:11) Rash sulfamethoxazole [From Bactrim] Allergy (Verified 08/09/18 17:11) Rash trimethoprim [From Bactrim] Allergy (Verified 08/09/18 17:11) Rash codeine Adverse Reaction (Verified 08/09/18 17:11) Upset Stomach Penicillins Adverse Reaction (Verified 08/09/18 17:11) Other Medications to take at Discharge Hydrochlorothiazide [Hctz] 12.5 mg PO DAILY 12/31/16 Levothyroxine [Synthroid] 50 mcg PO DAILY 12/31/16 Aspirin E.C. [Ecotrin] 81 mg PO DAILY@0800 tab 06/21/18 atorvastatin 80 mg tablet 80 mg PO QHS #90 tab 07/03/18 carvedilol 3.125 mg tablet 3.125 mg PO BID #180 tab 07/03/18 lisinopril 5 mg tablet 5 mg PO DAILY #90 tab 07/03/18 metronidazole 0.75 % topical cream 1 applicatio TOPICAL DAILY 68 Days #135 g 07/03/18 Albuterol Sulfate [Ventolin Hfa] 2 puff IN DAILY 08/09/18 Omeprazole 40 mg PO DAILY 08/09/18 Potassium Chloride [Klor-Con M20] 10 meq PO DAILY 08/09/18 Ticagrelor [Brilinta] 1 tab PO BID 08/09/18 Acetaminophen [Tylenol Tablet] 650 mg PO Q6H PRN PRN #30 tablet 08/10/18 The following prescriptions were given: Acetaminophen [Tylenol Tablet] 650 mg PO Q6H PRN PRN #30 tablet PRN Reason: Non-cardiac pain (mod-severe) Primary Care Physician: Mikael Ramires DO [Primary Care Provider] - Test Results: Test results from this visit will be discussed in further detail at your follow-up appointment, if applicable. Proposed Discharge Date: 08/10/18
--- NOTE | 2018-08-10 11:48 | DCINST_ITS ---
- Discharge Diagnoses Current Active Problems: Current Active and Chronic Problems (Last Updated 06/21/18 @ 15:50 by Liana Guadalupe) Chest pain (Acute) HTN (hypertension) (Chronic) HLD (hyperlipidemia) (Chronic) Asthma (Chronic) Osteoarthritis of left shoulder (Chronic) You will use the following diet at home:: Cardiac Your food should be the consistency of: Regular Your liquids should be the consistency of: Regular/Thin Discharge Activity: Return to Normal Activity Weight Bearing Status: Weight bearing as tolerated Call your doctor if you observe: Fever of 101 or Higher, Chest pain, Uncontr olled pain Additional Instructions: immobilise wrist in wrist brace. To have outpatient PT/OT for pain in wrist. Allergies/Adverse Reactions: Allergies clarithromycin [From Biaxin] Allergy (Verified 08/09/18 17:11) Rash sulfamethoxazole [From Bactrim] Allergy (Verified 08/09/18 17:11) Rash trimethoprim [From Bactrim] Allergy (Verified 08/09/18 17:11) Rash codeine Adverse Reaction (Verified 08/09/18 17:11) Upset Stomach Penicillins Adverse Reaction (Verified 08/09/18 17:11) Other Medications to take at Discharge Hydrochlorothiazide [Hctz] 12.5 mg PO DAILY 12/31/16 Levothyroxine [Synthroid] 50 mcg PO DAILY 12/31/16 Aspirin E.C. [Ecotrin] 81 mg PO DAILY@0800 tab 06/21/18 atorvastatin 80 mg tablet 80 mg PO QHS #90 tab 07/03/18 carvedilol 3.125 mg tablet 3.125 mg PO BID #180 tab 07/03/18 lisinopril 5 mg tablet 5 mg PO DAILY #90 tab 07/03/18 metronidazole 0.75 % topical cream 1 applicatio TOPICAL DAILY 68 Days #135 g 07/03/18 Albuterol Sulfate [Ventolin Hfa] 2 puff IN DAILY 08/09/18 Omeprazole 40 mg PO DAILY 08/09/18 Potassium Chloride [Klor-Con M20] 10 meq PO DAILY 08/09/18 Ticagrelor [Brilinta] 1 tab PO BID 08/09/18 Acetaminophen [Tylenol Tablet] 650 mg PO Q6H PRN PRN #30 tablet 08/10/18 The following prescriptions were given: Acetaminophen [Tylenol Tablet] 650 mg PO Q6H PRN PRN #30 tablet PRN Reason: Non-cardiac pain (mod-severe) Primary Care Physician: Mikael Ramires DO [Primary Care Provider] - Test Results: Test results from this visit will be discussed in further detail at your follow- up appointment, if applicable. Proposed Discharge Date: 08/10/18
--- NOTE | 2018-08-10 12:35 | CASEMGMT ---
SW spoke with patient about outpatient therapy. She was not sure as she wanted to talk with Dr Bell. LAURY obtained an order for outpatient Occupational therapy and gave this to patient. LAURY told her she would just need to give them the order and schedule an appt. She thanked Laury. Radha MIRANDA MSW
--- NOTE | 2018-08-10 16:17 | PCM.DC.SUM ---
Discharge Date and Diagnosis Date of Admission: 08/09/18 Date of Discharge: 08/10/18 - Primary Discharge Diagnosis LUE pain - Secondary Discharge Diagnosis Chronic Problems (Last Updated 06/21/18 @ 15:50 by Liana Guadalupe) HTN (hypertension) (Chronic) HLD (hyperlipidemia) (Chronic) Asthma (Chronic) Osteoarthritis of left shoulder (Chronic) Stented coronary artery (Chronic 06/20/18) STEMI, ALLIE to mid lad (2.5 X 20 Promus Synergy), ALLIE to proximal Diagonal #1 (2.25 X 16 Prom[employer] Synergy) per Dr. Warner @ [facility] Atherosclerotic heart disease of [place] coronary artery without angina pectoris (Chronic) STEMI, ALLIE to mid lad (2.5 X 20 Prom[employer] Synergy), ALLIE to proximal Diagonal #1 (2.25 X 16 Prom[employer] Synergy) per Dr. Warner @ [facility] Waldenstrom's macroglobulinemia (Chronic) GERD (gastroesophageal reflux disease) (Chronic) Hypothyroidism (Chronic) M?ni?re's disease (Chronic) Hospital Course and Treatment Imaging Results: Diagnostic Data Chest X-Ray 08/09/18 17:26 IMPRESSION: Normal x-ray examination of the chest. Electronically Signed: Adi Hammond MD at 17:40 EST , Service support , Operations: None Procedures: None Summary of Care Provided: The patient is a 68 year old F with an extensive past medical history as listed. She was admitted with a complaint of left upper extremity pain. Patient had STEMI with placement of 2 stents in May 2019. She had been having cardiac rehab and on 08/09/2018, she was at cardiac rehab where she states that the machines are quite big for her small frame. She was therefore using a lot of energy and forced to hold onto the machines and started experiencing severe left upper extremity pain. She did not have any chest pain. However she decided to come into the ED to be checked out on account of her having had recent stent and having been told that if she had any unusual pain she should go to the ED to be she was not a heart attack. Troponins x3 were negative and EKG showed no acute ST changes. She was admitted and managed for chest pain to rule out ACS. Chest x-ray showed no acute cardia pulmonary process. She remained stable and pain became well controlled. Patient states he had a stress test about a month ago which was negative. There was no record of this in the EMR. Patient remained stable and was discharged home on 08/10/2018 of the left upper extremity pain resolved. This was thought to be likely musculoskeletal due to the strenuous exercise she did at cardiac rehab. 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 Patient to continue cardiac rehab; she says she has been told they can modify the exercises for her to do with one active hand. She is to use her hand brace for the LUE, and do outpatient PT/OT for her LUE. Patient seen and examined prior to discharge. She had no complaints and felt well. Pain had improved significantly and she wanted to go home. Review of systems otherwise negative. Labs and vitals reviewed. Home medications reviewed and reconciled. Plan as detailed above. - Physical Exam General: Alert, Oriented x3, Cooperative, No apparent distress HEENT: Atraumatic, PERRLA, EOMI, Normocephalic Oral: Moist Mucosa Neck: Supple, No JVD, Negative Carotid Bruits, Negative Hepatojugular Reflux, No Nodes Lungs: Clear to auscultation, Normal air movement, No rhonchi, No wheeze, No rales Cardiovascular: Regular rate, Regular Rhythm, Normal S1, Normal S2, No murmurs Abdomen: Bowel Sounds Present, Soft, Non Tender, Non-Distended, No Hepato-splenomegaly Extremities: No clubbing, No cyanosis, No edema, Capillary Refill Less than 3 Seconds Skin: No rashes, No breakdown Musculoskeletal: - - had some numbness in distribution of ulnar nerve, in the last 2 digits of her left hand, able to elevate LUE over her head, no tenderness with rotation of her left shoulder joint Lymphatic: No Cervical, Supraclavicular, or Inguinal Adenopathy Neurological: Cranial nerves II-XII grossly intact Psych/Mental Status: Normal Affect, Appropriate, Alert and oriented to time, place, person, mood and affect Vital Signs Temp Pulse Resp BP Pulse Ox 97.5 F L 85 16 110/61 94 08/10/18 09:46 08/10/18 10:57 08/10/18 09:46 08/10/18 09:46 08/10/18 09:46 Oxygen Delivery Method Room Air Weight: 187 lb 9.814 oz Body Mass Index (BMI) 35.4 Intake and Output for Last 24 Hours 08/08/18 08/09/18 08/10/18 23:59 23:59 23:59 Intake Total 600 / 600 640 / 640 Balance 600 / 600 640 / 640 Laboratory Tests Past 24 Hrs 08/09/18 08/09/18 08/09/18 18:00 18:00 18:00 WBC 9.2 RBC 4.38 Hgb 12.3 Hct 39.1 MCV 89.3 MCH 28.1 MCHC 31.5 L RDW 14.3 RDW Differential 45.8 H Plt Count 189 MPV 10.2 Immature Gran % (Auto) 0.200 Neut % (Auto) 73.5 H Lymph % (Auto) 18.7 L [place] % (Auto) 5.9 Eos % (Auto) 1.5 Baso % (Auto) 0.2 Absolute Neuts (auto) 6.7 Absolute Lymphs (auto) 1.71 Total Counted Not Reportable Sodium 139 Potassium 3.3 L Chloride 106 Carbon Dioxide 23.0 Anion Gap 10 BUN 13 Creatinine 0.74 Estim Creat Clear Calc 40.63 Est GFR (MDRD) Af Amer 100 Est GFR (MDRD) Non-Af 82 BUN/Creatinine Ratio 17.4 Glucose 137 H Hemoglobin A1c 5.6 Calcium 8.6 Magnesium Total Bilirubin AST ALT Alkaline Phosphatase Troponin I < 0.015 Total Protein Albumin Globulin Albumin/Globulin Ratio 08/09/18 08/09/18 08/10/18 21:29 21:29 01:00 WBC RBC Hgb Hct MCV MCH MCHC RDW RDW Differential Plt Count MPV Immature Gran % (Auto) Neut % (Auto) Lymph % (Auto) [place] % (Auto) Eos % (Auto) Baso % (Auto) Absolute Neuts (auto) Absolute Lymphs (auto) Total Counted Sodium Potassium Chloride Carbon Dioxide Anion Gap BUN Creatinine Estim Creat Clear Calc Est GFR (MDRD) Af Amer Est GFR (MDRD) Non-Af BUN/Creatinine Ratio Glucose Hemoglobin A1c Calcium Magnesium 2.0 Total Bilirubin AST ALT Alkaline Phosphatase Troponin I < 0.015 < 0.015 Total Protein Albumin Globulin Albumin/Globulin Ratio 08/10/18 08/10/18 06:25 06:25 WBC 7.3 RBC 4.04 L Hgb 11.3 L Hct 36.8 L MCV 91.1 MCH 28.0 MCHC 30.7 L RDW 14.3 RDW Differential 47.0 H Plt Count 184 MPV 10.7 Immature Gran % (Auto) Neut % (Auto) Lymph % (Auto) [place] % (Auto) Eos % (Auto) Baso % (Auto) Absolute Neuts (auto) Absolute Lymphs (auto) Total Counted Sodium 140 Potassium 4.0 Chloride 109 H Carbon Dioxide 23.0 Anion Gap 8 BUN 14 Creatinine 0.67 Estim Creat Clear Calc 40.63 Est GFR (MDRD) Af Amer 113 Est GFR (MDRD) Non-Af 94 BUN/Creatinine Ratio 21.0 H Glucose 111 H Hemoglobin A1c Calcium 8.5 Magnesium Total Bilirubin 0.60 AST 18 ALT 29 Alkaline Phosphatase 109 Troponin I Total Protein 6.5 Albumin 3.2 Globulin 3.3 Albumin/Globulin Ratio 1.0 Discharge Diet: Low fat/ Low Cholesterol Discharge Activity: Return to Normal Activity Weight Bearing Status: Weight bearing as tolerated Call your doctor if you observe: Fever of 101 or Higher, Chest pain, Uncontrolled pain Home Medications: Medications to take at Discharge Hydrochlorothiazide [Hctz] 12.5 mg PO DAILY 12/31/16 Levothyroxine [Synthroid] 50 mcg PO DAILY 12/31/16 Aspirin E.C. [Ecotrin] 81 mg PO DAILY@0800 tab 06/21/18 atorvastatin 80 mg tablet 80 mg PO QHS #90 tab 07/03/18 carvedilol 3.125 mg tablet 3.125 mg PO BID #180 tab 07/03/18 lisinopril 5 mg tablet 5 mg PO DAILY #90 tab 07/03/18 metronidazole 0.75 % topical cream 1 applicatio TOPICAL DAILY 68 Days #135 g 07/03/18 Albuterol Sulfate [Ventolin Hfa] 2 puff IN DAILY 08/09/18 Omeprazole 40 mg PO DAILY 08/09/18 Potassium Chloride [Klor-Con M20] 10 meq PO DAILY 08/09/18 Ticagrelor [Brilinta] 1 tab PO BID 08/09/18 Acetaminophen [Tylenol Tablet] 650 mg PO Q6H PRN PRN #30 tablet 08/10/18 Following Prescrptions Were Given to Patient: Acetaminophen [Tylenol Tablet] 650 mg PO Q6H PRN PRN #30 tablet PRN Reason: Non-cardiac pain (mod-severe) Primary Care Physician: Mikael Ramires DO [Primary Care Provider] - Please follow up with your Primary Care Physician in: one week Disposition: Home Minutes spent on discharge:: 35 Patient Condition:: Stable Medical Necessity - Tobacco Use Smoking Status: Never smoker Tobacco Use: Non-smoker Meaningful Use Info Meaningful Use Diagnoses (Choose all that apply): None applicable Code Visit Inpatient E&M: 91006 Disch Hosp
--- NOTE | 2018-08-10 16:24 | DS.PCM_ITS ---
Discharge Date and Diagnosis Date of Admission: 08/09/18 Date of Discharge: 08/10/18 - Primary Discharge Diagnosis LUE pain - Secondary Discharge Diagnosis Chronic Problems (Last Updated 06/21/18 @ 15:50 by Liana Guadalupe) HTN (hypertension) (Chronic) HLD (hyperlipidemia) (Chronic) Asthma (Chronic) Osteoarthritis of left shoulder (Chronic) Stented coronary artery (Chronic 06/20/18) STEMI, ALLIE to mid lad (2.5 X 20 Prom[employer] Synergy), ALLIE to proximal Diagonal #1 (2.25 X 16 Promus Synergy) per Dr. Warner @ [facility] Atherosclerotic heart disease of [place] coronary artery without angina pectoris (Chronic) STEMI, ALLIE to mid lad (2.5 X 20 Promus Synergy), ALLIE to proximal Diagonal #1 (2.25 X 16 Promus Synergy) per Dr. Warner @ [facility] Waldenstrom's macroglobulinemia (Chronic) GERD (gastroesophageal reflux disease) (Chronic) Hypothyroidism (Chronic) M?ni?re's disease (Chronic) Hospital Course and Treatment Imaging Results: Diagnostic Data Chest X-Ray 08/09/18 17:26 IMPRESSION: Normal x-ray examination of the chest. Electronically Signed: Adi Hammond MD at 17:40 EST , Service support , Operations: None Procedures: None Summary of Care Provided: The patient is a 68 year old F with an extensive past medical history as listed. She was admitted with a complaint of left upper extremity pain. Patient had STEMI with placement of 2 stents in May 2019. She had been having cardiac rehab and on 08/09/2018, she was at cardiac rehab where she states that the machines are quite big for her small frame. She was therefore using a lot of energy and forced to hold onto the machines and started experiencing severe left upper extremity pain. She did not have any chest pain. However she decided to come into the ED to be checked out on account of her having had recent stent and having been told that if she had any unusual pain she should go to the ED to be she was not a heart attack. Troponins x3 were negative and EKG showed no acute ST changes. She was admitted and managed for chest pain to rule out ACS. Chest x-ray showed no acute cardia pulmonary process. She remained stable and pain became well controlled. Patient states he had a stress test about a month ago which was negative. There was no record of this in the EMR. Patient remained stable and was discharged home on 08/10/2018 of the left upper extremity pain resolved. This was thought to be likely musculoskeletal due to the strenuous exercise she did at cardiac rehab. 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 Patient to continue cardiac rehab; she says she has been told they can modify the exercises for her to do with one active hand. She is to use her hand brace for the LUE, and do outpatient PT/OT for her LUE. Patient seen and examined prior to discharge. She had no complaints and felt well. Pain had improved significantly and she wanted to go home. Review of systems otherwise negative. Labs and vitals reviewed. Home medications reviewed and reconciled. Plan as detailed above. - Physical Exam General: Alert, Oriented x3, Cooperative, No apparent distress HEENT: Atraumatic, PERRLA, EOMI, Normocephalic Oral: Moist Mucosa Neck: Supple, No JVD, Negative Carotid Bruits, Negative Hepatojugular Reflux, No Nodes Lungs: Clear to auscultation, Normal air movement, No rhonchi, No wheeze, No rales Cardiovascular: Regular rate, Regular Rhythm, Normal S1, Normal S2, No murmurs Abdomen: Bowel Sounds Present, Soft, Non Tender, Non-Distended, No Hepato- splenomegaly Extremities: No clubbing, No cyanosis, No edema, Capillary Refill Less than 3 Seconds Skin: No rashes, No breakdown Musculoskeletal: - - had some numbness in distribution of ulnar nerve, in the last 2 digits of her left hand, able to elevate LUE over her head, no tenderness with rotation of her left shoulder joint Lymphatic: No Cervical, Supraclavicular, or Inguinal Adenopathy Neurological: Cranial nerves II-XII grossly intact Psych/Mental Status: Normal Affect, Appropriate, Alert and oriented to time, place, person, mood and affect Vital Signs Temp Pulse Resp BP Pulse Ox 97.5 F L 85 16 110/61 94 08/10/18 09:46 08/10/18 10:57 08/10/18 09:46 08/10/18 09:46 08/10/18 09:46 Oxygen Delivery Method Room Air Weight: 187 lb 9.814 oz Body Mass Index (BMI) 35.4 Intake and Output for Last 24 Hours 08/08/18 08/09/18 08/10/18 23:59 23:59 23:59 Intake Total 600 / 600 640 / 640 Balance 600 / 600 640 / 640 Laboratory Tests Past 24 Hrs 08/09/18 08/09/18 08/09/18 18:00 18:00 18:00 WBC 9.2 RBC 4.38 Hgb 12.3 Hct 39.1 MCV 89.3 MCH 28.1 MCHC 31.5 L RDW 14.3 RDW Differential 45.8 H Plt Count 189 MPV 10.2 Immature Gran % (Auto) 0.200 Neut % (Auto) 73.5 H Lymph % (Auto) 18.7 L [place] % (Auto) 5.9 Eos % (Auto) 1.5 Baso % (Auto) 0.2 Absolute Neuts (auto) 6.7 Absolute Lymphs (auto) 1.71 Total Counted Not Reportable Sodium 139 Potassium 3.3 L Chloride 106 Carbon Dioxide 23.0 Anion Gap 10 BUN 13 Creatinine 0.74 Estim Creat Clear Calc 40.63 Est GFR (MDRD) Af Amer 100 Est GFR (MDRD) Non-Af 82 BUN/Creatinine Ratio 17.4 Glucose 137 H Hemoglobin A1c 5.6 Calcium 8.6 Magnesium Total Bilirubin AST ALT Alkaline Phosphatase Troponin I < 0.015 Total Protein Albumin Globulin Albumin/Globulin Ratio 08/09/18 08/09/18 08/10/18 21:29 21:29 01:00 WBC RBC Hgb Hct MCV MCH MCHC RDW RDW Differential Plt Count MPV Immature Gran % (Auto) Neut % (Auto) Lymph % (Auto) [place] % (Auto) Eos % (Auto) Baso % (Auto) Absolute Neuts (auto) Absolute Lymphs (auto) Total Counted Sodium Potassium Chloride Carbon Dioxide Anion Gap BUN Creatinine Estim Creat Clear Calc Est GFR (MDRD) Af Amer Est GFR (MDRD) Non-Af BUN/Creatinine Ratio Glucose Hemoglobin A1c Calcium Magnesium 2.0 Total Bilirubin AST ALT Alkaline Phosphatase Troponin I < 0.015 < 0.015 Total Protein Albumin Globulin Albumin/Globulin Ratio 08/10/18 08/10/18 06:25 06:25 WBC 7.3 RBC 4.04 L Hgb 11.3 L Hct 36.8 L MCV 91.1 MCH 28.0 MCHC 30.7 L RDW 14.3 RDW Differential 47.0 H Plt Count 184 MPV 10.7 Immature Gran % (Auto) Neut % (Auto) Lymph % (Auto) [place] % (Auto) Eos % (Auto) Baso % (Auto) Absolute Neuts (auto) Absolute Lymphs (auto) Total Counted Sodium 140 Potassium 4.0 Chloride 109 H Carbon Dioxide 23.0 Anion Gap 8 BUN 14 Creatinine 0.67 Estim Creat Clear Calc 40.63 Est GFR (MDRD) Af Amer 113 Est GFR (MDRD) Non-Af 94 BUN/Creatinine Ratio 21.0 H Glucose 111 H Hemoglobin A1c Calcium 8.5 Magnesium Total Bilirubin 0.60 AST 18 ALT 29 Alkaline Phosphatase 109 Troponin I Total Protein 6.5 Albumin 3.2 Globulin 3.3 Albumin/Globulin Ratio 1.0 Discharge Diet: Low fat/ Low Cholesterol Discharge Activity: Return to Normal Activity Weight Bearing Status: Weight bearing as tolerated Call your doctor if you observe: Fever of 101 or Higher, Chest pain, U ncontrolled pain Home Medications: Medications to take at Discharge Hydrochlorothiazide [Hctz] 12.5 mg PO DAILY 12/31/16 Levothyroxine [Synthroid] 50 mcg PO DAILY 12/31/16 Aspirin E.C. [Ecotrin] 81 mg PO DAILY@0800 tab 06/21/18 atorvastatin 80 mg tablet 80 mg PO QHS #90 tab 07/03/18 carvedilol 3.125 mg tablet 3.125 mg PO BID #180 tab 07/03/18 lisinopril 5 mg tablet 5 mg PO DAILY #90 tab 07/03/18 metronidazole 0.75 % topical cream 1 applicatio TOPICAL DAILY 68 Days #135 g 07/03/18 Albuterol Sulfate [Ventolin Hfa] 2 puff IN DAILY 08/09/18 Omeprazole 40 mg PO DAILY 08/09/18 Potassium Chloride [Klor-Con M20] 10 meq PO DAILY 08/09/18 Ticagrelor [Brilinta] 1 tab PO BID 08/09/18 Acetaminophen [Tylenol Tablet] 650 mg PO Q6H PRN PRN #30 tablet 08/10/18 Following Prescrptions Were Given to Patient: Acetaminophen [Tylenol Tablet] 650 mg PO Q6H PRN PRN #30 tablet PRN Reason: Non-cardiac pain (mod-severe) Primary Care Physician: Mikael Ramires DO [Primary Care Provider] - Please follow up with your Primary Care Physician in: one week Disposition: Home Minutes spent on discharge:: 35 Patient Condition:: Stable Medical Necessity - Tobacco Use Smoking Status: Never smoker Tobacco Use: Non-smoker Meaningful Use Info Meaningful Use Diagnoses (Choose all that apply): None applicable Code Visit Inpatient E&M: 79361 Disch Hosp
== END 2018-08-10 11:51 | disposition home or self-care (01) ==
LOC: ED 17:37 → PCU 20:02
PROVIDERS: Admitting Provider Family Medicine; Emergency Provider Emergency Medicine; Family Provider Family Medicine; PCP Family Medicine; Visit Provider Student in an Organized Health Care Education/Training Program
DX: M25.512 Pain in left shoulder (principal); I25.2 Old myocardial infarction; I10 Essential (primary) hypertension; E78.5 Hyperlipidemia, unspecified; J45.909 Unspecified asthma, uncomplicated; M19.012 Primary osteoarthritis, left shoulder; I25.10 Atherosclerotic heart disease of native coronary artery without angina pectoris; K21.9 Gastro-esophageal reflux disease without esophagitis; K58.9 Irritable bowel syndrome, unspecified; E03.9 Hypothyroidism, unspecified; H81.09 Meniere's disease, unspecified ear; E66.9 Obesity, unspecified; E87.6 Hypokalemia; R73.9 Hyperglycemia, unspecified; Z95.5 Presence of coronary angioplasty implant and graft; Z79.899 Other long term (current) drug therapy; Z79.82 Long term (current) use of aspirin; Z85.79 Personal history of other malignant neoplasms of lymphoid, hematopoietic and related tissues; Z68.35 Body mass index [BMI] 35.0-35.9, adult; Z71.3 Dietary counseling and surveillance
CPT/HCPCS: 36415; 71045; 80048; 80053; 83036; 83735; 84484; 85025; 85027; 93005; 96372; 96374; 96375; 99218; 99283; A4216; G0378; J2405

== ENCOUNTER → 2018-08-12 07:49 | Outpatient (CLI) | payer MEDICARE, SELFPAY ==
[2018-06-21 08:53] VITALS: BMI 38.3
[2018-08-09 22:14] VITALS: BMI 35.4
[2018-08-12 08:11] LABS: Absolute Lymphocyte Count 1.85 X10^3/ul (0.83-4.51); Absolute Neutrophil Count 5.7 X10^3/uL (2.0-7.7); Basophil# 0.02 X10^3/uL; Basophil% 0.2 % (0-1); Eosinophil# 0.17 X10^3/uL; Eosinophils% 2.1 % (0-5); Hematocrit 37.4 % (37-47); Hemoglobin 11.8 g/dl (12.0-15.0); Lymphocyte # 1.85 X10^3/ul (4.0); Mean Corp Hgb Conc 31.6 g/gl (32-36); Mean Corpuscular Hgb 28.1 pg (27.0-32.0); Monocyte# 0.32 X10^3/uL; Neutrophil # 5.67 X10^3/uL (2.7-7.7); Neutrophil % 70.5 % (47-70); Platelet Count 193 K/mm3 (150-450); RBC Distribution Width CV 14.5 % (11.6-14.6); RBC Distribution Width SD 46.8 fl (35.1-43.9); White Blood Count 8.1 K/mm3 (4.4-11.0)
[2018-08-12 08:12] LABS: POSITIVE COUNT NO; POSITIVE DIFFERENTIAL NO; POSITIVE MORPHOLOGY NO
[2018-08-12 08:44] LABS: AST(SGOT) 16 U/L (15-37); Alanine Aminotransfer ALT/SGPT 34 U/L (13-56); Albumin, Serum 3.5 g/dL (3.2-5.0); Alkaline Phosphatase 114 U/L (45-117); Anion Gap 10 (5-15); BUN 14 mg/dL (7-18); BUN/Creat Ratio 20.3 RATIO (10-20); Calcium,Total 8.7 mg/dL (8.5-10.1); Chloride 106 mmol/L (98-107); Creatinine, Serum 0.69 mg/dL (0.55-1.02); EST Glomerular Filtration Rate 90 mL/min (>60); Est Glom Filt Rate - Afr Amer 109 mL/min (>60); Globulin 3.6 g/dL (2.2-4.2); Glucose 114 mg/dL (74-106); Potassium 3.9 mmol/L (3.5-5.1); Protein, Total 7.1 g/dL (6.4-8.2); Sodium Level 139 mmol/L (136-145); Thyroid Stim Hormone (TSH) 2.98 uIU/mL (0.358-3.74)
[2018-08-12 09:08] LABS: Vitamin D,25 Hydroxy 19.2 ng/mL (29.95-100.01)
[2018-08-14 14:07] LABS: PROEL- A/G Ratio 1.3 (0.7-1.7); PROEL- Albumin 3.7 g/dL (2.9-4.4); PROEL- Alpha-1 Globulin 0.3 g/dL (0.0-0.4); PROEL- Alpha-2 Globulin 0.9 g/dL (0.4-1.0); PROEL- Beta Globulin 0.8 g/dL (0.7-1.3); PROEL- Gamma Globulin 0.9 g/dL (0.4-1.8); PROEL- Globulin, Total 2.8 g/dL (2.2-3.9)
[2018-08-16 11:09] LABS: PROEL- TOTAL PROTEIN 6.5 g/dL (6.0-8.5)
[2018-08-16 11:13] LABS: Beta-2-Microglobulin, S 1.8 mg/L (0.6-2.4)
== END ==
PROVIDERS: Family Provider Family Medicine; PCP Family Medicine; Referring Provider Family Medicine; Visit Provider Family Medicine
DX: D89.0 Polyclonal hypergammaglobulinemia (principal); C88.0 Waldenstrom macroglobulinemia; E55.9 Vitamin D deficiency, unspecified; E03.9 Hypothyroidism, unspecified; Z51.81 Encounter for therapeutic drug level monitoring
CPT/HCPCS: 36415; 80053; 82232; 82306; 84165; 84443; 85025

== ENCOUNTER → 2018-08-14 14:55 | Outpatient (CLI) | payer MEDICARE, SELFPAY ==
[2018-06-21 08:53] VITALS: BMI 38.3
[2018-08-09 22:14] VITALS: BMI 35.4
--- NOTE | 2018-08-14 14:57 | RAD_ITS ---
STUDY: X-RAY - LEFT HAND, ATTENTION FIRST FINGER REASON FOR EXAM: Female, 68 years old. Pain TECHNIQUE: 3 view(s) of the finger were obtained. COMPARISON: Left hand 03/12/2014 FINDINGS: Generalized osteopenia. Normal metacarpal head. There is mild degenerative arthrosis of the metacarpophalangeal joint. Normal proximal phalanx. Normal distal phalanx. There is mild degenerative arthrosis of the proximal interphalangeal joint. Small linear soft tissue calcification 0.1 cm adjacent to the first metacarpal head. Not visualized on previous hand exam. RAD/Finger(s) Min 2 Views IMPRESSION: Osteoporosis and degenerative changes. There is no acute displaced fracture or dislocation. Electronically Signed: Allison Edmondson MD at 7:00 EST , Service support ,
== END ==
PROVIDERS: Family Provider Family Medicine; PCP Family Medicine; Referring Provider Orthopaedic Surgery; Visit Provider Orthopaedic Surgery
DX: M79.645 Pain in left finger(s) (principal)
CPT/HCPCS: 73140

== ENCOUNTER 2018-08-23 13:00 | Outpatient (RCR) | payer MEDICARE, SELFPAY ==
[2018-06-21 08:53] VITALS: BMI 38.3
[2018-07-20 12:53] VITALS: BMI 36.2
--- NOTE | 2018-08-21 09:22 | PCM.CR.ITP ---
Exercise - 30-day Assessment - Visit Date of Eval: 08/21/18 Session #:: 11 - Stages of Change Stages of Change:: Action - Exercise Prescription Mode:: Treadmill, Airdyne, NuStep Frequency (x/week): 3 Duration:: 30-45 METs - Progression: 0.5-1 MET as tolerated: 3.5 Target Heart Rate:: 114-122 - Hypertension Resting Blood Pressure:: 110/58 Peak Exercise Blood Pressure:: 116/60 Medication Changes:: No - Intervention Home Exercise/Activity Goal:: Moderate Exercise 30 min/day x 5 days/wk - Education Goals:: Warm-up, RPE MAYDA Scale, S/S, Safe Exercise, Self-Monitoring - Exercise Program Goals Exercise Program Goals: Aerobic Activity >30 min Nutrition - 30-Day Assessment - Program Goals Nutrition Program Goals: LDL <70. Total Cholesterol <200. HDL >45. Triglycerides <150. HgbA1C <7%. BMI <25 - Visit Date of Eval: 08/21/18 - Stages of Change Stages of Change:: Action - Lipids Has the patient seen the dietitian?: No - Diabetes Diabetes:: No Insulin: No Non-Insulin Dependent?: No - Weight Management Weight:: 191 lb 8 oz - Intervention Referral to dietitian:: No Referral to Diabetic Clinic:: No Will attend diet classes:: Yes - Education Attended class for:: Healthy eating Tobacco - Initial Assessment - Program Goals Tobacco Program Goals: Complete smoking cessation. Attend education classes. Improve Knowledge Test score - Learning Barriers Learning Barriers: Vision, Ready to Learn Tobacco - 30-Day Assessment - Program Goals Tobacco Program Goals: Complete smoking cessation. Attend education classes. Improve Knowledge Test score - Stage of Change Stages of Change:: Action - Learning Barriers Learning Barriers: Participates in education, Change in behavior - Family Support Do you have family support?: Yes - Tobacco Use Tobacco Use: Non-smoker Do you use smokeless tobacco?: No - Intervention Education Schedule Given:: Yes - Education Attended class for:: Coronary artery disease, Risk factors, Sexuality, Medical compliance, Cardiac A&P, Angina signs & symptoms Psychosocial - Initial Assess - Target Goals Target Goals: Assess presence or absence of depression. Using a valid screening tool, maximizes coping skills. Positive support system - Psychosocial Test Tool Used:: HANDS Depression Questionnaire - Assistive Devices Fall Risk Assessed:: Yes Psychosocial - 30-Day Assess - Target Goals Target Goals: Assess presence or absence of depression. Using a valid screening tool, maximizes coping skills. Positive support system - Stages of Change Stages of Change:: Action - Psychosocial Test Tool Used:: HANDS Depression Questionnaire - Intervention PS - Interventions: Yes Attend Stress Management Classes, Yes Uses Stress Management Skills, No Referral to Mental Health, No Referral to [facility] Case Management, No Referral to Physician - Education Attended classes for:: Coping techniques, Signs & symptoms of depression, Stress management, Relaxation techniques - Patient/Program Goal Preventative Medication(s):: Aspirin, Clopidogrel, Beta davis, Statin/lipid - Assistive Devices Assistive Devices:: None Fall Risk Assessed:: Yes Patient Health Questionnaire 30-Day Re-eval Assessment 1. Little interest or pleasure in doing things: Not at all 2. Feeling down, depressed, or hopeless: Not at all 3. Trouble falling or staying asleep, or sleeping too much: Not at all 4. Feeling tired or having little energy: Not at all 5. Poor appetite or overeating: Not at all 6. Feeling bad about yourself -- or that you are a failure or have let yourself or your family down: Not at all 7. Trouble concentrating on things, such as reading the newspaper or watching television: Not at all 8. Moving or speaking so slowly that other people could have noticed. Or the opposite - being so fidgety or restless that you have been moving around a lot more than usual: Not at all 9. Thoughts that you would be better off , or of hurting yourself in some way: Not at all Total Score: 0 Self-Efficacy 30-Day Re-eval Assessment We would like to know how confident you are in doing certain activities. Please select your confidence level for:: Select your confidence level for the following using the scale 1-10 where 1 is not at all confident and 10 is totally confident. Your score is the average of all 6 responses. Fatigue: How confident are you that you can keep the fatigue caused by your disease from interfering with the things you want to do? Select Number: 9 Physical Discomfort or Pain: How confident are you that you can keep the physical discomfort or pain of your disease from interfering with the things you want to do? Select Number: 9 Emotional Distress: How confident are you that you can keep the emotional distress caused by your disease from interfering with the things you want to do? Select Number: 10 Other Symptoms or Health Problems: How confident are you that you can keep other symptoms or health problems from interfering with the things you want to do? Select Number: 8 Different Tasks and Activities: How confident are you that you can do the different tasks and activities needed to manage your health condition so as to reduce your need to see a doctor? Select Number: 9 Medication: How confident are you that you can do things other than just taking medication to reduce how much your illness affects your everyday life? Select Number: 9 Total Score:: 9
[2018-08-21 09:32] VITALS: BP 110/58; BP 116/60
== END 2018-08-24 23:59 ==
LOC: CR 13:00
PROVIDERS: Family Provider Family Medicine; PCP Family Medicine; Referring Provider Internal Medicine Cardiovascular Disease; Visit Provider Internal Medicine Cardiovascular Disease
DX: I21.3 ST elevation (STEMI) myocardial infarction of unspecified site (principal); Z95.5 Presence of coronary angioplasty implant and graft
CPT/HCPCS: 93798

== ENCOUNTER 2018-09-22 13:00 | Outpatient (RCR) | payer MEDICARE, SELFPAY ==
[2018-06-21 08:53] VITALS: BMI 38.3
[2018-08-25 01:27] VITALS: BP 110/58; BP 116/60; BMI 36.2
--- NOTE | 2018-09-18 08:29 | CR.ITP_ITS ---
General Information - General Information Admitting Diagnosis: STEMI, PCI with coronary stenting - Education/Goals Cardiac Rehabilitation Goals: 1. Maintain the individual as the primary focus of care. 2. To improve the patient's quality of life. 3. Identification of cardiac risk factors and provide cardiac risk factor management. 4. Enhance the psychosocial status of the patient. 5. Reconditioning enough to allow the patient to resume customary activities. 6. Control symptoms of cardiac disease Scale for measuring improvement of personal goals: Enter appropriate number in Comments. 2 = Unchanged. 3 = Slightly Better. 4 = Moderate Improvement. 5 = Met my Goal Exercise - 60-Day Assessment - Visit Date of Eval: 09/18/18 Session #:: 23 - Stages of Change Stages of Change:: Action - Physician Prescribed Exercise Modalities: Treadmill, NuStep, SciFit Frequency (days/week): 3 Duration (Minutes):: 30-45 Intensity: 60-80% age predicted maximum heart rate reserve Target Heart Rate:: 114-122 Max HR 125 - Hypertension Resting Blood Pressure:: 100/54 Peak Exercise Blood Pressure:: 188/66 Medication Changes:: No - Intervention Home Exercise/Activity Goal:: Sitting Time <3 hrs/day - Education Goals:: Warm-up, RPE MAYDA Scale, S/S, Safe Exercise, Self-Monitoring - Exercise Program Goals Exercise Program Goals: Aerobic Activity >30 min, B/P <130/80 Nutrition - 60-Day Assessment - Program Goals Nutrition Program Goals: LDL <70. Total Cholesterol <200. HDL >45. Triglycerides <150. HgbA1C <7%. BMI <25 - Visit Date of Eval: 09/18/18 - Stages of Change Stages of Change:: Action - Lipids Has the patient seen the dietitian?: No - Diabetes Diabetes:: No - Weight Management Weight:: 84.822 kg - Intervention Referral to dietitian:: No Referral to Diabetic Clinic:: No Will attend diet classes:: Yes - Education Attended class for:: Signs & symptoms of hypoglycemia, Signs & symptoms of hyperglycemia, Relate diabetes to coronary artery disease, Healthy eating Tobacco - Initial Assessment - Program Goals Tobacco Program Goals: Complete smoking cessation. Attend education classes. Improve Knowledge Test score - Learning Barriers Learning Barriers: Vision, Ready to Learn Tobacco - 60-Day Assessment - Program Goals Tobacco Program Goals: Complete smoking cessation. Attend education classes. Improve Knowledge Test score - Stage of Change Stages of Change:: Action - Learning Barriers Learning Barriers: Participates in education - Family Support Do you have family support?: Yes - Tobacco Use Tobacco Use: Non-smoker Do you use smokeless tobacco?: No - Intervention Smoking Cessation Referral:: No Individual Education/Counseling:: No Education Schedule Given:: Yes - Education Attended class for:: Tobacco triggers, Coronary artery disease, Risk factors, Sexuality, Medical compliance, Cardiac A&P, Angina signs & symptoms Psychosocial - Initial Assess - Target Goals Target Goals: Assess presence or absence of depression. Using a valid screening tool, maximizes coping skills. Positive support system - Psychosocial Test Tool Used:: HANDS Depression Questionnaire - Assistive Devices Fall Risk Assessed:: Yes Psychosocial - 60-Day Assess - Target Goals Target Goals: Assess presence or absence of depression. Using a valid screening tool, maximizes coping skills. Positive support system - Stages of Change Stages of Change:: Action - Psychosocial Test Tool Used:: HANDS Depression Questionnaire - Intervention PS - Interventions: Yes Attend Stress Management Classes, Yes Uses Stress Management Skills, No Referral to Mental Health, No Referral to [facility] Case Management, No Referral to Physician - Education Attended classes for:: Coping techniques, Signs & symptoms of depression, Stress management, Relaxation techniques - Assistive Devices Assistive Devices:: None Patient Health Questionnaire 60-Day Re-eval Assessment 1. Little interest or pleasure in doing things: Not at all 2. Feeling down, depressed, or hopeless: Not at all 3. Trouble falling or staying asleep, or sleeping too much: Not at all 4. Feeling tired or having little energy: Not at all 5. Poor appetite or overeating: Not at all 6. Feeling bad about yourself -- or that you are a failure or have let yourself or your family down: Not at all 7. Trouble concentrating on things, such as reading the newspaper or watching television: Not at all 8. Moving or speaking so slowly that other people could have noticed. Or the opposite - being so fidgety or restless that you have been moving around a lot more than usual: Not at all 9. Thoughts that you would be better off , or of hurting yourself in some way: Not at all How difficult have these problems made it for you to do your work, take care of things at home, or get along with other people?: Not difficult at all Total Score: 0 Self-Efficacy 60-Day Re-eval Assessment We would like to know how confident you are in doing certain activities. Please select your confidence level for:: Select your confidence level for the following using the scale 1-10 where 1 is not at all confident and 10 is totally confident. Your score is the average of all 6 responses. Fatigue: How confident are you that you can keep the fatigue caused by your disease from interfering with the things you want to do? Select Number: 9 Physical Discomfort or Pain: How confident are you that you can keep the physical discomfort or pain of your disease from interfering with the things you want to do? Select Number: 9 Emotional Distress: How confident are you that you can keep the emotional distress caused by your disease from interfering with the things you want to do? Select Number: 10 Other Symptoms or Health Problems: How confident are you that you can keep other symptoms or health problems from interfering with the things you want to do? Select Number: 8 Different Tasks and Activities: How confident are you that you can do the different tasks and activities needed to manage your health condition so as to reduce your need to see a doctor? Select Number: 9 Medication: How confident are you that you can do things other than just taking medication to reduce how much your illness affects your everyday life? Select Number: 9 Total Score:: 9
[2018-09-18 08:32] VITALS: BP 100/54; BP 188/66
== END 2018-09-24 23:59 ==
LOC: CR 13:00
PROVIDERS: Family Provider Family Medicine; PCP Family Medicine; Referring Provider Internal Medicine Cardiovascular Disease; Visit Provider Internal Medicine Cardiovascular Disease
DX: I21.3 ST elevation (STEMI) myocardial infarction of unspecified site (principal); Z95.5 Presence of coronary angioplasty implant and graft
CPT/HCPCS: 93798

== ENCOUNTER 2018-10-16 13:00 | Outpatient (RCR) | payer MEDICARE, SELFPAY ==
[2018-06-21 08:53] VITALS: BMI 38.3
[2018-09-25 01:09] VITALS: BP 100/54; BP 188/66; BMI 35.4
--- NOTE | 2018-10-18 06:58 | CR.ITP_ITS ---
General Information - General Information Admitting Diagnosis: STEMI, PCI with stenting - Education/Goals Barriers to Learning: None Cardiac Rehabilitation Goals: 1. Maintain the individual as the primary focus of care. 2. To improve the patient's quality of life. 3. Identification of cardiac risk factors and provide cardiac risk factor management. 4. Enhance the psychosocial status of the patient. 5. Reconditioning enough to allow the patient to resume customary activities. 6. Control symptoms of cardiac disease Scale for measuring improvement of personal goals: Enter appropriate number in Comments. 2 = Unchanged. 3 = Slightly Better. 4 = Moderate Improvement. 5 = Met my Goal Exercise - 90-Day Assessment - Visit Date of Eval: 10/18/18 Session #:: 36 - Stages of Change Stages of Change:: Action - Physician Prescribed Exercise Modalities: Treadmill, NuStep, SciFit Frequency (days/week): 3 Duration (Minutes):: 30-45 Intensity: 60-80% age predicted maximum heart rate reserve METs - Progression: 0.5-1.0 MET, RPE 11-14 WEEK: 3.6 Target Heart Rate:: 114-122 Max HR 116 - Hypertension Resting Blood Pressure:: 104/60 Peak Exercise Blood Pressure:: 128/70 - Intervention Home Exercise/Activity Goal:: Sitting Time <3 hrs/day - Education Goals:: Warm-up, RPE MAYDA Scale, S/S, Safe Exercise, Self-Monitoring - Exercise Program Goals Exercise Program Goals: Aerobic Activity >30 min, B/P <130/80 Nutrition - 90-Day Assessment - Program Goals Nutrition Program Goals: LDL <70. Total Cholesterol <200. HDL >45. Triglycerides <150. HgbA1C <7%. BMI <25 - Visit Date of Eval: 10/18/18 - Stages of Change Stages of Change:: Action - Weight Management Weight:: 85.049 kg - Intervention Referral to dietitian:: No Referral to Diabetic Clinic:: No Will attend diet classes:: Yes - Education Attended class for:: Signs & symptoms of hypoglycemia, Signs & symptoms of hyperglycemia, Relate diabetes to coronary artery disease, Healthy eating Tobacco - Initial Assessment - Program Goals Tobacco Program Goals: Complete smoking cessation. Attend education classes. Improve Knowledge Test score - Learning Barriers Learning Barriers: Vision, Ready to Learn Tobacco - 90-Day Assessment - Program Goals Tobacco Program Goals: Complete smoking cessation. Attend education classes. Improve Knowledge Test score - Stage of Change Stages of Change:: Action - Learning Barriers Learning Barriers: Participates in education - Family Support Do you have family support?: Yes - Tobacco Use Tobacco Use: Non-smoker Do you use smokeless tobacco?: No - Intervention Smoking Cessation Referral:: No Individual Education/Counseling:: No Education Schedule Given:: Yes - Education Attended class for:: Tobacco triggers, Coronary artery disease, Risk factors, Sexuality, Medical compliance, Cardiac A&P, Angina signs & symptoms Psychosocial - Initial Assess - Target Goals Target Goals: Assess presence or absence of depression. Using a valid screening tool, maximizes coping skills. Positive support system - Psychosocial Test Tool Used:: HANDS Depression Questionnaire - Assistive Devices Fall Risk Assessed:: Yes Psychosocial - 90-Day Assess - Target Goals Target Goals: Assess presence or absence of depression. Using a valid screening tool, maximizes coping skills. Positive support system - Stages of Change Stages of Change:: Action - Psychosocial Test Tool Used:: HANDS Depression Questionnaire - Intervention PS - Interventions: Yes Attend Stress Management Classes, Yes Uses Stress Management Skills, No Referral to Mental Health, No Referral to [facility] Case Management, No Referral to Physician - Education Attended classes for:: Coping techniques, Signs & symptoms of depression, Stress management, Relaxation techniques - Assistive Devices Assistive Devices:: None Fall Risk Assessed:: Yes Patient Health Questionnaire 90-Day Re-eval Assessment 1. Little interest or pleasure in doing things: Not at all 2. Feeling down, depressed, or hopeless: Not at all 3. Trouble falling or staying asleep, or sleeping too much: More than half the days 4. Feeling tired or having little energy: Not at all 5. Poor appetite or overeating: Not at all 6. Feeling bad about yourself -- or that you are a failure or have let yourself or your family down: Not at all 7. Trouble concentrating on things, such as reading the newspaper or watching television: Not at all 8. Moving or speaking so slowly that other people could have noticed. Or the opposite - being so fidgety or restless that you have been moving around a lot more than usual: Not at all 9. Thoughts that you would be better off , or of hurting yourself in some way: Not at all How difficult have these problems made it for you to do your work, take care of things at home, or get along with other people?: Not difficult at all Total Score: 2 Self-Efficacy 90-Day Re-eval Assessment We would like to know how confident you are in doing certain activities. Please select your confidence level for:: Select your confidence level for the following using the scale 1-10 where 1 is not at all confident and 10 is totally confident. Your score is the average of all 6 responses. Fatigue: How confident are you that you can keep the fatigue caused by your disease from interfering with the things you want to do? Select Number: 7 Physical Discomfort or Pain: How confident are you that you can keep the physical discomfort or pain of your disease from interfering with the things you want to do? Select Number: 8 Emotional Distress: How confident are you that you can keep the emotional distress caused by your disease from interfering with the things you want to do? Select Number: 9 Other Symptoms or Health Problems: How confident are you that you can keep other symptoms or health problems from interfering with the things you want to do? Select Number: 6 Different Tasks and Activities: How confident are you that you can do the different tasks and activities needed to manage your health condition so as to reduce your need to see a doctor? Select Number: 9 Medication: How confident are you that you can do things other than just taking medication to reduce how much your illness affects your everyday life? Select Number: 9 Total Score:: 8
[2018-10-18 06:59] VITALS: BP 104/60; BP 128/70
== END 2018-10-24 23:59 ==
LOC: CR 13:00
PROVIDERS: Family Provider Family Medicine; PCP Family Medicine; Referring Provider Internal Medicine Cardiovascular Disease; Visit Provider Internal Medicine Cardiovascular Disease
DX: I21.3 ST elevation (STEMI) myocardial infarction of unspecified site (principal); Z95.5 Presence of coronary angioplasty implant and graft
CPT/HCPCS: 93798

== ENCOUNTER → 2018-10-24 14:03 | Outpatient (CLI) | payer MEDICARE, SELFPAY ==
[2018-06-21 08:53] VITALS: BMI 38.3
[2018-10-24 13:45] VITALS: BMI 35.4
--- NOTE | 2018-10-24 14:05 | RAD_ITS ---
STUDY: X-RAY - LEFT KNEE REASON FOR EXAM: Female, 68 years old. Pain TECHNIQUE: 4 view(s) of the knee. COMPARISON: None. FINDINGS: Osteopenia. No effusion. Patellofemoral compartment minimal joint margin osteophytic lipping. Medial compartment minimal joint margin osteophytic lipping. Lateral compartment normal. Particular soft tissues normal. 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 Electronically Signed: Chico Quintana MD at 16:02 EDT Tel , Service support ,
--- NOTE | 2018-10-24 14:05 | RAD_ITS ---
STUDY: X-RAY - RIGHT KNEE REASON FOR EXAM: Female, 68 years old. Pain TECHNIQUE: 4 view(s) of the knee. COMPARISON: None. FINDINGS: Osteopenia. Patellofemoral compartment mild joint margin osteophytic lipping. Suspected small suprapatellar knee joint effusion. Medial compartment no apparent DJD. Lateral compartment no apparent DJD. Periarticular soft tissues unremarkable. RAD/Knee 4 or More Views IMPRESSION: Mild DJD most notable at the patellofemoral articulation. Suspected small effusion. Electronically Signed: Chico Quintana MD at 16:03 EDT Tel , Service support ,
== END ==
PROVIDERS: Family Provider Family Medicine; PCP Family Medicine; Referring Provider Orthopaedic Surgery; Visit Provider Orthopaedic Surgery
DX: M25.562 Pain in left knee (principal); M25.561 Pain in right knee
CPT/HCPCS: 73564

== ENCOUNTER → 2018-11-13 14:14 | Outpatient (CLI) | payer MEDICARE, SELFPAY ==
[2018-06-21 08:53] VITALS: BMI 38.3
[2018-11-13 12:49] VITALS: BMI 35.4
[2018-11-13 14:32] LABS: Mucous, Urine 0 SEEN /hpf (<or=2+); Red Blood Cells-Urine 0 SEEN /hpf (0-5)
[2018-11-13 14:39] LABS: Color, Urine Yellow (Yellow); Glucose, Dipstick Normal (Normal); Ketone-Dipstick Negative (Negative); Leukocyte Esterase-Dipstick 100 /ul (Negative); Nitrite-Dipstick Negative (Negative); Occult Blood-Urine Negative /ul (Negative); Protein-Dipstick Negative (Negative); Specific Gravity, Urine 1.015 (1.002-1.030); Urine Bilirubin Dipstick Negative (Negative); Urine Clarity Clear (Clear); Urine Urobilinogen Normal (Normal)
[2018-11-13 14:45] LABS: Bacteria 2+ /hpf (None Seen); Squamous Epithelial Cells - UA 0-5 SEEN /hpf (5-10); White Blood Cells 10-25 SEEN /hpf (0-5)
== END ==
PROVIDERS: Family Provider Family Medicine; PCP Family Medicine; Referring Provider Physician Assistant; Visit Provider Physician Assistant
DX: N39.0 Urinary tract infection, site not specified (principal); R30.0 Dysuria
CPT/HCPCS: 81001; 87077; 87086; 87088; 87186

== ENCOUNTER → 2018-11-14 16:12 | Outpatient (CLI) | payer MEDICARE, SELFPAY ==
[2018-06-21 08:53] VITALS: BMI 38.3
[2018-11-13 12:49] VITALS: BMI 35.4
[2018-11-14 16:41] LABS: Absolute Lymphocyte Count 1.49 X10^3/ul (0.83-4.51); Absolute Neutrophil Count 7.3 X10^3/uL (2.0-7.7); Basophil# 0.02 X10^3/uL; Basophil% 0.2 % (0-1); Eosinophil# 0.14 X10^3/uL; Eosinophils% 1.5 % (0-5); Hematocrit 38.7 % (37-47); Hemoglobin 12.5 g/dl (12.0-15.0); Lymphocyte # 1.49 X10^3/ul (4.0); Lymphocyte % 15.5 % (19-41); Mean Corp Hgb Conc 32.3 g/gl (32-36); Mean Corpuscular Hgb 27.8 pg (27.0-32.0); Mean Corpuscular Volume 86.2 fL (81-99); Mean Platelet Vol. 9.7 fl (6.2-12.0); Monocyte# 0.61 X10^3/uL; Monocyte% 6.4 % (0-10); Neutrophil # 7.33 X10^3/uL (2.7-7.7); Neutrophil % 76.3 % (47-70); Platelet Count 177 K/mm3 (150-450); RBC Distribution Width CV 14.9 % (11.6-14.6); RBC Distribution Width SD 46.9 fl (35.1-43.9); Red Blood Count 4.49 M/mm3 (4.2-5.4); White Blood Count 9.6 K/mm3 (4.4-11.0)
[2018-11-14 16:46] LABS: POSITIVE COUNT NO; POSITIVE DIFFERENTIAL NO; POSITIVE MORPHOLOGY NO
[2018-11-14 17:05] LABS: Erythrocyte Sedimentation Rate 51 mm/hr (0-30)
== END ==
PROVIDERS: Family Provider Family Medicine; PCP Family Medicine; Referring Provider Ophthalmology; Visit Provider Ophthalmology
DX: R51 Headache (principal)
CPT/HCPCS: 36415; 85025; 85652; 86140

== ENCOUNTER 2018-11-23 10:41 | Day surgery (SDC) | payer MEDICARE, SELFPAY ==
[2018-06-21 08:53] VITALS: BMI 38.3
[2018-11-16 11:30] VITALS: BMI 34.7
[2018-11-23 08:55] VITALS: BMI 34.7
[2018-11-23 11:17] VITALS: BP 127/70; PULSE 72; RESP 16; TEMP 36.2; O2SAT 98; BMI 34.8
--- NOTE | 2018-11-23 11:54 | PCM.HP.BLA ---
Problem List (1) Temporal arteritis Status: Acute History and Physical Date of Admission: 11/23/18 Intake Vital Signs 11/23/18 Body Mass Index (BMI) 34.7 11/23/18 Height 5 ft 1 in 11/23/18 Weight: 185 lb 11/23/18 Body Mass Index (BMI) 34.9 11/23/18 Blood Pressure 118/71 11/23/18 Blood Pressure Location Rt brachial 11/23/18 Blood Pressure Position Sitting 11/23/18 Respiratory Rate 18 11/23/18 Pulse Rate 79 11/23/18 Pulse Source Monitor 11/23/18 Temperature 97.5 F L 11/23/18 Temperature Source Oral 11/23/18 Pulse Ox 98 11/23/18 Oxygen Delivery Method room air Intake Visit Reasons: Temporal Artery BX Chief Complaint: UTI Editor Greeting Card Required: No Is patient in pain?: No Allergies clarithromycin [From Biaxin] Allergy (Verified 11/23/18 08:54) Rash sulfamethoxazole [From Bactrim] Allergy (Verified 11/23/18 08:54) Rash trimethoprim [From Bactrim] Allergy (Verified 11/23/18 08:54) Rash codeine Adverse Reaction (Verified 11/23/18 08:54) Upset Stomach lisinopril Adverse Reaction (Verified 11/23/18 08:54) cough Penicillins Adverse Reaction (Verified 11/23/18 08:54) Other Medications Hydrochlorothiazide [Hctz] 12.5 mg PO DAILY 12/31/16 [History Confirmed 11/23/18] Levothyroxine [Synthroid] 50 mcg PO DAILY 12/31/16 [History Confirmed 11/23/18] Aspirin E.C. [Ecotrin] 81 mg PO DAILY@0800 tab 06/21/18 [Rx Confirmed 11/23/18] atorvastatin 80 mg tablet 80 mg PO QHS #90 tab 07/03/18 [Rx Confirmed 11/23/18] carvedilol 3.125 mg tablet 3.125 mg PO BID #180 tab 07/03/18 [Rx Confirmed 11/23/18] metronidazole 0.75 % topical cream 1 applicatio TOPICAL DAILY 68 Days #135 g 07/03/18 [History Confirmed 11/23/18] Omeprazole 40 mg PO DAILY 08/09/18 [History Confirmed 11/23/18] Potassium Chloride [Klor-Con M20] 10 meq PO DAILY 08/09/18 [History Confirmed 11/23/18] Acetaminophen [Tylenol Tablet] 650 mg PO Q6H PRN PRN #30 tab 08/10/18 [Rx Confirmed 11/23/18] nitrofurantoin monohydrate/macrocrystals 100 mg capsule 100 mg PO BID #14 cap 11/13/18 [Rx Confirmed 11/23/18] losartan 25 mg tablet 12.5 mg PO DAILY #45 tab 11/14/18 [Rx Confirmed 11/23/18] albuterol sulfate HFA 90 mcg/actuation aerosol inhaler 2 puff INHALATION DAILY PRN 11/16/18 [History Confirmed 11/23/18] clopidogrel 75 mg tablet 75 mg PO .COMPLEX #34 tab 11/16/18 [Rx Confirmed 11/23/18] prednisone 10 mg tablet 40 mg PO DAILY tab 11/16/18 [History Confirmed 11/23/18] PFSH Medical History Atherosclerotic heart disease of [place] coronary artery without angina pectoris (Chronic) Acute ST elevation myocardial infarction (Acute) Waldenstrom's macroglobulinemia (Chronic) GERD (gastroesophageal reflux disease) (Chronic) Hypothyroidism (Chronic) M?ni?re's disease (Chronic) Arthritis (Acute) Asthma (Acute) GERD (gastroesophageal reflux disease) (Acute) Hypothyroid (Acute) IBS (irritable bowel syndrome) (Acute) Incontinence (Acute) Knee pain (Acute) Meniere disease (Acute) Osteopenia (Acute) PVC's (premature ventricular contractions) (Acute) Polyclonal gammopathy (Acute) Retinal tear of left eye (Acute) SOB (shortness of breath) (Acute) Thyroid disease (Acute) Ulnar neuropathy (Acute) Vitamin D deficiency (Acute) Surgical History Stented coronary artery (Chronic 06/20/18) History of delivery (Resolved) History of dilatation and curettage (Resolved) Hx of breast biopsy (Resolved) Hx of tonsillectomy (Resolved) Family History Mother Cancer skin Anemia Father Cancer Heart disease Social History Smoking Status: Never smoker alcohol intake: never caffeine: Yes Type: tea Number of servings: 2 HPI HPI HPI: CHELSEY ROUHIER, is a 68 F who presents to the office today for HPI HPI HPI: CHELSEY TOLLIVER, is a 68 F who presents to the office today for temporal artery biopsy evaluation. The patient notes that her entire head is felt like there is a net over it and is been very tight. She says the pain is equal but a little bit worse on the right side. She has been started on prednisone by her pm head cook and she says this has helped. She said today's the first day she feels seminormal. She reports having a heart attack with stent approximately 1 year ago and is on aspirin and Plavix. ROS General General: Yes weight change; no appetite, fatigue, colon cancer, breast cancer or weakness HEENT HEENT: Yes eye surgery; no difficulty swallowing, eye injury, swollen glands or hoarseness Endo Endocrine: Yes thyroid disease; no diabetes mellitus, thyroid cancer, Hair loss, heat intolerance or cold intolerance Skin Skin: No rash or changing moles Breast Breast: No left breast lump, right breast lump, nipple discharge, breast pain, abnormal mammogram, abnormal US or breast enlargement Musc Musculoskeletal: Yes rheumatoid arthritis; no back problems, arthritis, gout or joint pain Cardio Cardiovascular: Yes heart disease, heart attack and heart stent; no murmur, pacemaker, atrial fibrillation, high blood pressure, palpitations, shortness of breat with exertion or chest pain Psych Psychiatric: No depression, anxiety or hearing voices Resp Respiratory: No shortness of breath, No sleep apnea, No cough, No COPD, Yes asthma, No emphysema, No wheezing Gastro Gastrointestinal: No abdominal pain, No nausea or vomiting, No diarrhea, No constipation, No blood in stool, Yes acid reflux, No hemorrhoids, No ulcers, No gallbladder problem, No black,tarry stools Randal Hematologic: Yes blood thinners, Yes blood disorders, No bleeding, No anemia, No blood clots Neuro Neurologic: No system reviewed and no additional complaints, except as docu, No as per HPI, No abnormal walking, No abnormal hearing, No abnormal movements, No abnormal speech, No behavioral changes, No burning sensations, No confusion, No seizure-like activity, No unsteadiness, No dizziness, No localized weakness, No frequent falls, No headache(s), No lack of coordination, No loss of vision, No memory loss, No numbness, No other visual disturbances, No radiating pain, No restless legs, No sensory deficit, No fainting, No tingling, No tremor(s), No weakness, No other Exam Const General: cooperative Orientation: alert, oriented x3 Chest Breast Palpation: No nipple discharge Resp Effort & Inspection: normal respiratory effort Auscultation: clear to auscultation bilaterally Cardio Rate: regular rate Rhythm: regular rhythm Heart Sounds: no murmurs GI Inspection: non-distended Palpation: soft, nontender Assessment & Plan Problems 1. Temporal arteritis M31.6 Plan Patient likely has temporal arteritis. She will be taken today for right temporal artery biopsy. I explained the risks of the procedure to the patient. I explained the risks of bleeding, infection, brow ptosis. Patient understands the risks and is willing to undergo procedure. I explained the increased risk of bleeding and hematoma due to her aspirin and Plavix. Cliff Peraza MD Pager: [facility] [address] [place] [address], [address] [place] [address] Office:
--- NOTE | 2018-11-23 13:00 | TEM_PTH ---
PATIENT: CHELSEY TOLLIVER LOC: [facility] [place] U#:[id number] AGE/SX: 68/F ROOM: RE11/23/[address]: Dr. Cliff Peraza MD : 1950 BED: DIS: 11/23/2018 SPEC #: [id number] RECD: 11/23/18 15:43 STATUS: PORFIRIO REJim #: [id number] LESLEY: 11/23/18 13:[address]: Cliff Peraza DEPT: SURGICAL PATHOLOGY RECD BY: Otto Segovia ENTERED: 11/24/18 14:09 SP TYPE: TEMPORAL OTHR DR: Dr. 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 No evidence of arteritis. See comment. AM:stanislav 11/27/18 COMMENT Elastin stain with matched control supports the above diagnosis. MICROSCOPIC DESCRIPTION Slides are reviewed. GROSS DESCRIPTION Received in fixative is one container labeled with the patient's name and designated section of right temporal artery. The specimen consists of an elongated fragment of light sage tubular tissue measuring 2 cm in length and 1 cm in average diameter. The specimen is submitted in its entirety in one cassette. / AM:stanislav 11/24/18 TC:5 CPT: 26618, 32219
[2018-11-23 13:44] VITALS: BP 115/65; BP 127/70; PULSE 80; RESP 18; TEMP 36.1; O2SAT 97
[2018-11-23 13:45] VITALS: BP 111/65; BP 127/70; PULSE 74; RESP 16; O2SAT 97
[2018-11-23 13:51] VITALS: BP 115/61; BP 127/70; PULSE 77; RESP 18; O2SAT 98
--- NOTE | 2018-11-23 14:15 | PCM.OPRPT ---
Problem List (1) Temporal arteritis Status: Acute Report of Operation Date of Procedure: 11/23/18 Pre-Operative Diagnosis: Possible temporal arteritis Post-Operative Diagnosis: Same Surgery/Procedure Performed:: Right temporal artery excisional biopsy Specimen's removed: Right temporal artery segment Description of Procedure: The patient was brought back to the operating room and Doppler was used to localize the superficial right temporal artery. Patient was given Versed by anesthesia and then the right moravian was prepped and draped in usual sterile fashion after hair removal. Next an incision was marked and then anesthetized with plain lidocaine. Next an incision was made with a scalpel and deepened to the temporal fascia. The fascia was dissected and the temporal artery was localized. The temporal artery was dissected free superiorly and inferiorly and circumferentially. A traction suture was placed in the middle of the artery and it was retracted inferiorly and then a 3-0 silk tie was placed around the artery and a small vascular clip was also placed. The artery was then divided. Next inferiorly in the same fashion traction was applied and a 3-0 silk tie as well as clip was placed on the proximal artery. The specimen was sent for pathology. There is good hemostasis and the cavity was irrigated. The deep tissue was closed with interrupted 4-0 Vicryl sutures. The skin was closed with running 4-0 Vicryl suture. Glue was then applied to the skin. Patient tolerated the procedure well.
--- NOTE | 2018-11-23 14:20 | OP.PCM_ITS ---
Problem List (1) Temporal arteritis Status: Acute Report of Operation Date of Procedure: 11/23/18 Pre-Operative Diagnosis: Possible temporal arteritis Post-Operative Diagnosis: Same Surgery/Procedure Performed:: Right temporal artery excisional biopsy Specimen's removed: Right temporal artery segment Description of Procedure: The patient was brought back to the operating room and Doppler was used to localize the superficial right temporal artery. Patient was given Versed by anesthesia and then the right alevism was prepped and draped in usual sterile fashion after hair removal. Next an incision was marked and then anesthetized with plain lidocaine. Next an incision was made with a scalpel and deepened to the temporal fascia. The fascia was dissected and the temporal artery was localized. The temporal artery was dissected free superiorly and inferiorly and circumferentially. A traction suture was placed in the middle of the artery and it was retracted inferiorly and then a 3-0 silk tie was placed around the artery and a small vascular clip was also placed. The artery was then divided. Next inferiorly in the same fashion traction was applied and a 3-0 silk tie as well as clip was placed on the proximal artery. The specimen was sent for pathology. There is good hemostasis and the cavity was irrigated. The deep tissue was closed with interrupted 4-0 Vicryl sutures. The skin was closed with running 4- 0 Vicryl suture. Glue was then applied to the skin. Patient tolerated the procedure well.
--- NOTE | 2018-11-23 14:22 | DCINST_ITS ---
- Discharge Diagnoses Current Active Problems: Current Active and Chronic Problems (Last Reviewed 11/23/18 @ 08:52 by Anya Chiu) Temporal arteritis (Acute) You will use the following diet at home:: No restrictions, Regular Your food should be the consistency of: Regular Your liquids should be the consistency of: Regular/Thin Discharge Activity: Return to Normal Activity - Tuesday, May Shower - tomorrow Call your doctor if your incision/area has: Continuous Slow Oozing, Sudden Increased Bleeding, Increased Pain/ Swelling, Increased Redness, Foul Smelling Discharge, Swelling at the incision site Call your doctor if you observe: Fever of 101 or Higher Allergies/Adverse Reactions: Allergies clarithromycin [From Biaxin] Allergy (Verified 11/23/18 11:14) Rash sulfamethoxazole [From Bactrim] Allergy (Verified 11/23/18 11:14) Rash trimethoprim [From Bactrim] Allergy (Verified 11/23/18 11:14) Rash codeine Adverse Reaction (Verified 11/23/18 11:14) Upset Stomach lisinopril Adverse Reaction (Verified 11/23/18 11:14) cough Penicillins Adverse Reaction (Verified 11/23/18 11:14) Other Medications to take at Discharge Hydrochlorothiazide [Hctz] 12.5 mg PO DAILY 12/31/16 Levothyroxine [Synthroid] 50 mcg PO DAILY 12/31/16 Aspirin E.C. [Ecotrin] 81 mg PO DAILY@0800 tab 06/21/18 atorvastatin 80 mg tablet 80 mg PO QHS #90 tab 07/03/18 carvedilol 3.125 mg tablet 3.125 mg PO BID #180 tab 07/03/18 metronidazole 0.75 % topical cream 1 applicatio TOPICAL DAILY 68 Days #135 g 07/03/18 Omeprazole 40 mg PO DAILY 08/09/18 Potassium Chloride [Klor-Con M20] 10 meq PO DAILY 08/09/18 Acetaminophen [Tylenol Tablet] 650 mg PO Q6H PRN PRN #30 tab 08/10/18 nitrofurantoin monohydrate/macrocrystals 100 mg capsule 100 mg PO BID #14 cap 11/13/18 losartan 25 mg tablet 12.5 mg PO DAILY #45 tab 11/14/18 albuterol sulfate HFA 90 mcg/actuation aerosol inhaler 2 puff INHALATION DAILY PRN 11/16/18 clopidogrel 75 mg tablet 75 mg PO .COMPLEX #34 tab 11/16/18 prednisone 10 mg tablet 40 mg PO DAILY tab 11/16/18 Primary Care Physician: Mikael Ramires DO [Primary Care Provider] - Test Results: Test results from this visit will be discussed in further detail at your follow- up appointment, if applicable. Please Follow Up With: Cliff Peraza MD When: Please call to schedule 2 week follow up appointment. [phone] Please Follow Up With: Jordan Louis MD
[2018-11-23 14:35] VITALS: BP 127/70
== END 2018-11-23 14:36 | disposition home or self-care (01) ==
LOC: SDC 10:42 → AC 10:44
PROVIDERS: Family Provider Family Medicine; PCP Family Medicine; Referring Provider Surgery; Visit Provider Surgery
PROC: (CPT 37609; principal; 2018-11-23 12:45)
DX: M31.6 Other giant cell arteritis (principal); I25.10 Atherosclerotic heart disease of native coronary artery without angina pectoris; C88.0 Waldenstrom macroglobulinemia; I49.3 Ventricular premature depolarization; I10 Essential (primary) hypertension; E78.00 Pure hypercholesterolemia, unspecified; E03.9 Hypothyroidism, unspecified; K58.9 Irritable bowel syndrome, unspecified; J45.909 Unspecified asthma, uncomplicated; K21.9 Gastro-esophageal reflux disease without esophagitis; M06.9 Rheumatoid arthritis, unspecified; E55.9 Vitamin D deficiency, unspecified; Z79.02 Long term (current) use of antithrombotics/antiplatelets; Z79.82 Long term (current) use of aspirin; Z79.52 Long term (current) use of systemic steroids; Z79.899 Other long term (current) drug therapy; Z88.2 Allergy status to sulfonamides; Z88.5 Allergy status to narcotic agent; Z88.0 Allergy status to penicillin; I25.2 Old myocardial infarction; Z95.5 Presence of coronary angioplasty implant and graft
CPT/HCPCS: 37609; 88305; 88313; J7120

== ENCOUNTER → 2018-12-02 09:46 | Outpatient (CLI) | payer MEDICARE, SELFPAY ==
[2018-06-21 08:53] VITALS: BMI 38.3
[2018-11-23 11:17] VITALS: BMI 34.8
[2018-12-02 10:51] LABS: AST(SGOT) 12 U/L (15-37); Alanine Aminotransfer ALT/SGPT 44 U/L (13-56); Albumin, Serum 3.2 g/dL (3.2-5.0); Alkaline Phosphatase 81 U/L (45-117); Bilirubin, Direct 0.19 mg/dL (0.00-0.30); Cholesterol 161 mg/dL (200); Globulin 3.3 g/dL (2.2-4.2); High Density Lipoprotein 98 mg/dL; Protein, Total 6.5 g/dL (6.4-8.2); Triglycerides 110 mg/dL; Very Low Density Lipoprotein 22 mg/dL (5-40)
== END ==
PROVIDERS: Family Provider Family Medicine; PCP Family Medicine; Referring Provider Internal Medicine Cardiovascular Disease; Visit Provider Internal Medicine Cardiovascular Disease
DX: R07.9 Chest pain, unspecified (principal); E78.5 Hyperlipidemia, unspecified; I25.10 Atherosclerotic heart disease of native coronary artery without angina pectoris
CPT/HCPCS: 36415; 80061; 80076

== ENCOUNTER 2018-12-29 11:41 | Day surgery (SDC) | payer MEDICARE, SELFPAY ==
[2018-06-21 08:53] VITALS: BMI 38.3
--- NOTE | 2018-12-29 11:20 | HP.PCM_ITS ---
Problem List (1) Temporal arteritis Status: Acute History of Present Illness Date of Admission: 12/29/18 The patient is a 68 year old F who had symptoms of temporal arteritis. She had a right temporal artery biopsy which was inconclusive. She is still experiencing symptoms once she is starting to taper her steroids. Past Medical History Past Medical History (Chronic Problems): Chronic Problems (Last Reviewed 11/23/18 @ 08:52 by Anya hCiu) HTN (hypertension) (Chronic) HLD (hyperlipidemia) (Chronic) Asthma (Chronic) Osteoarthritis of left shoulder (Chronic) Stented coronary artery (Chronic 06/20/18) STEMI, ALLIE to mid lad (2.5 X 20 [employer]), ALLIE to proximal Diagonal #1 (2.25 X 16 [employer]) per Dr. Warner @ [facility] Atherosclerotic heart disease of [place] coronary artery without angina pectoris (Chronic) STEMI, ALLIE to mid lad (2.5 X 20 [employer]), ALLIE to proximal Diagonal #1 (2.25 X 16 [employer]) per Dr. Warner @ [facility] Waldenstrom's macroglobulinemia (Chronic) GERD (gastroesophageal reflux disease) (Chronic) Hypothyroidism (Chronic) M?ni?re's disease (Chronic) Medical History: Medical History (Last Reviewed 11/23/18 @ 08:52 by Anya Chiu) Atherosclerotic heart disease of [place] coronary artery without angina pectoris (Chronic) I25.10 STEMI, ALLIE to mid lad (2.5 X 20 [employer]), ALLIE to proximal Diagonal #1 (2.25 X 16 [employer]) per Dr. 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 Retinal tear of left eye H33.312 SOB (shortness of breath) R06.02 Thyroid disease E07.9 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 Vitamin D deficiency E55.9 Allergies clarithromycin [From Biaxin] Allergy (Verified 12/06/18 13:29) Rash sulfamethoxazole [From Bactrim] Allergy (Verified 12/06/18 13:29) Rash trimethoprim [From Bactrim] Allergy (Verified 12/06/18 13:29) Rash codeine Adverse Reaction (Verified 12/06/18 13:29) Upset Stomach lisinopril Adverse Reaction (Verified 12/06/18 13:29) cough Penicillins Adverse Reaction (Verified 12/06/18 13:29) Other Home Medications: Ambulatory Orders Medication Instructions Recorded Hydrochlorothiazide [Hctz] 12.5 mg PO DAILY 12/31/16 Levothyroxine [Synthroid] 50 mcg PO DAILY 12/31/16 Aspirin E.C. [Ecotrin] 81 mg PO DAILY@0800 tab 06/21/18 atorvastatin 80 mg tablet 80 mg PO QHS #90 tab 07/03/18 carvedilol 3.125 mg tablet 3.125 mg PO BID #180 tab 07/03/18 metronidazole 0.75 % topical cream 1 applicatio TOPICAL DAILY 68 Days 07/03/18 #135 g Omeprazole 40 mg PO DAILY 08/09/18 Potassium Chloride [Klor-Con M20] 10 meq PO DAILY 08/09/18 Acetaminophen [Tylenol Tablet] 650 mg PO Q6H PRN PRN #30 tab 08/10/18 nitrofurantoin 100 mg PO BID #14 cap 11/13/18 monohydrate/macrocrystals 100 mg capsule losartan 25 mg tablet 12.5 mg PO DAILY #45 tab 11/14/18 albuterol sulfate HFA 90 2 puff INHALATION DAILY PRN 11/16/18 mcg/actuation aerosol inhaler clopidogrel 75 mg tablet 75 mg PO .COMPLEX #34 tab 11/16/18 prednisone 10 mg tablet 40 mg PO DAILY tab 11/16/18 Surgical History: Surgical History (Last Updated 12/06/18 @ 13:30 by Lamar Sigala) Stented coronary artery (Chronic) Onset Date: 06/20/18 Z95.5 STEMI, ALLIE to mid lad (2.5 X 20 [employer]), ALLIE to proximal Diagonal #1 (2.25 X 16 [employer]) per Dr. Warner @ [facility] History of temporal artery biopsy Z98.890 negative History of delivery Z98.891 History of dilatation and curettage Z98.890 Hx of breast biopsy Z98.890 Hx of tonsillectomy Z98.890, Z90.89 Surgical History: tonsillectomy, - - section, D+C, Breast Bx, T+A, PCI x 2. 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 Paternal Family History: Family History (Last Reviewed 11/23/18 @ 08:52 by Anya Chiu) Mother Cancer Anemia Father Cancer Heart disease History Items: - Review of Systems Constitutional: Denies: Anorexia, Fever Eyes: Reports: Double vision. Denies: Blurred vision HEENT: Reports: Head Aches Cardiovascular: Denies: Chest Pain Respiratory: Denies: Cough, Shortness of Breath Gastrointestinal: Denies: Abdominal Pain Genitourinary: Denies: Dysuria Skin: Denies: Dryness Neurological: Denies: Balance problems VTE Information - Inpt Only VTE Present on Admission: No VTE Mechan Device Prophylaxis: SCD's - Physical Exam General: Alert, Oriented x3, Cooperative, No apparent distress HEENT: Atraumatic Neck: No JVD Lungs: Normal air movement Cardiovascular: Regular rate, Regular Rhythm Abdomen: Soft, Non Tender, Non-Distended Body Mass Index (BMI) 34.8 Assessment/Plan All Active Problems (Last Reviewed 11/23/18 @ 08:52 by Anya Chiu) Temporal arteritis (Acute) UTI (urinary tract infection) (Acute) Chest pain (Acute) Acute ST elevation myocardial infarction (Acute) 68-year-old female with headaches 1. 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 I explained the risks to her including but not limited to bleeding, infection, ptosis, nerve injury. Patient understands risks and is ioana ling to proceed with left temporal artery biopsy. Cliff Peraza MD Pager: [facility] [address] [place] [address], [address] [place] [address] Office:
[2018-12-29 12:18] VITALS: BP 119/61; PULSE 89; RESP 16; TEMP 36.6; O2SAT 98; BMI 35.9
[2018-12-29] MEDS: Cefazolin 2 GM in 0.9% Normal Saline 100 ML IV (12:49)
--- NOTE | 2018-12-29 13:25 | TEM_PTH ---
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 Cliff Peraza MD : 1950 BED: DIS: 12/29/2018 SPEC #: [id number] RECD: 12/29/18 15:10 STATUS: PORFIRIO REJim #: [id number] LESLEY: 12/29/18 13:[address]: Cliff Peraza DEPT: SURGICAL PATHOLOGY RECD BY: Otto Segovia ENTERED: 01/01/19 11:28 SP TYPE: TEMPORAL OTHR DR: Dr. Mikael Ramires DO Tissues: Temporal region Procedures: Elastin Stain (control) Special Stain Group II Surgery Specimen Level IV HEADER OPERATION: Temporal artery biopsy PRE-OP DIAGNOSIS: Temporal arteritis TISSUE SUBMITTED: Left temporal artery biopsy MICROSCOPIC DIAGNOSIS Left temporal artery, biopsy: Mild to moderate intimal fibroplasia. Focal disruption of internal elastic lamina. No evidence of arteritis. See comment. AM:stanislav 01/01/19 COMMENT Elastin stain with matched control supports the above diagnosis. MICROSCOPIC DESCRIPTION Slides are reviewed. GROSS DESCRIPTION Received in fixative is one container labeled with the patient's name and designated left temporal artery biopsy. The specimen consists of two tubular segments of sage-pink soft tissue each measuring 0.7 cm in length and 0.1 cm in diameter. The entire specimen is submitted in one cassette. The specimen will be serially sectioned at the time of embedding. / SJ:stanislav 12/29/18 TC:5 CPT: 98636, 29239
[2018-12-29 13:38] VITALS: BP 119/61; BP 88/55; PULSE 85; RESP 16; TEMP 36.6; O2SAT 95
[2018-12-29 13:45] VITALS: BP 119/61; BP 92/52; PULSE 82; RESP 16; O2SAT 95
--- NOTE | 2018-12-29 13:51 | DCINST_ITS ---
You will use the following diet at home:: Regular Your food should be the consistency of: Regular Discharge Activity: Return to Normal Activity Call your doctor if your incision/area has: Continuous Slow Oozing, Sudden Increased Bleeding, Increased Pain/ Swelling, Increased Redness, Foul Smelling Discharge, Swelling at the incision site Call your doctor if you observe: Fever of 101 or Higher Allergies/Adverse Reactions: Allergies clarithromycin [From Biaxin] Allergy (Verified 12/06/18 13:29) Rash sulfamethoxazole [From Bactrim] Allergy (Verified 12/06/18 13:29) Rash trimethoprim [From Bactrim] Allergy (Verified 12/06/18 13:29) Rash codeine Adverse Reaction (Verified 12/06/18 13:29) Upset Stomach lisinopril Adverse Reaction (Verified 12/06/18 13:29) cough Penicillins Adverse Reaction (Verified 12/06/18 13:29) Other Medications to take at Discharge Hydrochlorothiazide [Hctz] 12.5 mg PO DAILY 12/31/16 Levothyroxine [Synthroid] 50 mcg PO DAILY 12/31/16 Aspirin E.C. [Ecotrin] 81 mg PO DAILY@0800 tab 06/21/18 atorvastatin 80 mg tablet 80 mg PO QHS #90 tab 07/03/18 carvedilol 3.125 mg tablet 3.125 mg PO BID #180 tab 07/03/18 metronidazole 0.75 % topical cream 1 applicatio TOPICAL DAILY 68 Days #135 g 07/03/18 Omeprazole 40 mg PO DAILY 08/09/18 Potassium Chloride [Klor-Con M20] 10 meq PO DAILY 08/09/18 Acetaminophen [Tylenol Tablet] 650 mg PO Q6H PRN PRN #30 tab 08/10/18 nitrofurantoin monohydrate/macrocrystals 100 mg capsule 100 mg PO BID #14 cap 11/13/18 losartan 25 mg tablet 12.5 mg PO DAILY #45 tab 11/14/18 albuterol sulfate HFA 90 mcg/actuation aerosol inhaler 2 puff INHALATION DAILY PRN 11/16/18 clopidogrel 75 mg tablet 75 mg PO .COMPLEX #34 tab 11/16/18 prednisone 10 mg tablet 20 mg PO DAILY tab 11/16/18 Primary Care Physician: Mikael Ramires DO [Primary Care Provider] - Test Results: Test results from this visit will be discussed in further detail at your follow- up appointment, if applicable. Please Follow Up With: Cliff Peraza MD When: Please call to schedule 1-2 week follow up appointment. [phone]
[2018-12-29 13:55] VITALS: BP 119/61; BP 91/48; PULSE 78; RESP 16; O2SAT 92
--- NOTE | 2018-12-29 13:55 | OP.PCM_ITS ---
Problem List (1) Temporal arteritis Status: Acute Report of Operation Date of Procedure: 12/29/18 Pre-Operative Diagnosis: Possible temporal arteritis Post-Operative Diagnosis: Same Surgery/Procedure Performed:: Left temporal artery biopsy Specimen's removed: Left temporal artery Description of Procedure: The patient's left pentecostal was prepped and hair was trimmed. Doppler was used to locate the temporal artery and it was traced with a marker. The skin incision was made and deepened to the subcutaneous tissue. The temporal artery was located and a traction suture was placed in the middle of it. Using a traction suture was retracted inferiorly and dissection was carried superiorly. Once the superior extent was reached a 3-0 silk tie was placed around and a small clip. Next dissection was carried inferiorly and in the same fashion it was tied off and a small clip was placed. There were 2 tributaries which were also clipped off with small clips. The artery was then removed and sent for pathology. The cavity was irrigated and closed with interrupted 4-0 Vicryl sutures in a running 4-0 Vicryl suture and Dermabond. Patient was taken to PACU in stable condition.
[2018-12-29 14:00] VITALS: BP 119/61; BP 98/63; PULSE 80; RESP 16; TEMP 36; O2SAT 96
[2018-12-29 14:53] VITALS: BP 119/61
== END 2018-12-29 14:53 | disposition home or self-care (01) ==
LOC: SDC 11:45 → AC 12:08
PROVIDERS: Family Provider Family Medicine; PCP Family Medicine; Referring Provider Surgery; Visit Provider Surgery
PROC: (CPT 37609; principal; 2018-12-29 13:10)
DX: R51 Headache (principal); I10 Essential (primary) hypertension; E78.5 Hyperlipidemia, unspecified; J45.909 Unspecified asthma, uncomplicated; I25.2 Old myocardial infarction; K21.9 Gastro-esophageal reflux disease without esophagitis; E03.9 Hypothyroidism, unspecified; Z95.5 Presence of coronary angioplasty implant and graft; Z88.2 Allergy status to sulfonamides; Z88.0 Allergy status to penicillin; Z79.82 Long term (current) use of aspirin; Z85.79 Personal history of other malignant neoplasms of lymphoid, hematopoietic and related tissues
CPT/HCPCS: 37609; 88305; 88313; J7120

== ENCOUNTER 2019-01-10 21:52 | Emergency (ER) | payer MEDICARE, SELFPAY ==
[2018-06-21 08:53] VITALS: BMI 38.3
[2019-01-10 21:54] VITALS: BP 160/105; PULSE 120; RESP 16; TEMP 36.2; O2SAT 96; BMI 35.9
--- NOTE | 2019-01-10 22:16 | CT_ITS ---
STUDY: CT BRAIN WITHOUT CONTRAST REASON FOR EXAM: Female, 68 years old. Headache RADIATION DOSAGE (If Supplied By Facility): CTDIvol = ( 44.99 ) mGy, DLP = ( 745.49 ) mGycm TECHNIQUE: Transaxial CT imaging of the brain was performed without administration of intravenous contrast material. Individualized dose optimization techniques were used for this CT. COMPARISON: No relevant priors. FINDINGS: There are several tiny soft tissue calcifications of the scalp bilaterally. Normal calvarium. Normal size ventricles and extra-axial spaces for the patient's age. Normal white matter tracts of the cerebral hemispheres. Normal basal ganglia and thalami. Normal brainstem. Normal cerebellum. There is no intracranial hemorrhage. There are no findings of an acute ischemic infarction. Normal visualized paranasal sinuses. CT/Brain/Head without Contrast IMPRESSION: Normal unenhanced CT scan of the brain. Electronically Signed: Adi Hammond MD at 23:17 EDT , Service support ,
--- NOTE | 2019-01-10 22:16 | EKG12_ITS ---
Test Reason : HEADACHE Blood Pressure : / mmHG Vent. Rate : 099 BPM Atrial Rate : 099 BPM P-R Int : 126 ms QRS Dur : 062 ms QT Int : 338 ms P-R-T Axes : 036 -09 025 degrees QTc Int : 433 ms Normal sinus rhythm Inferior infarct , age undetermined Abnormal ECG Confirmed by EUGENIO KAY, NELLI ([id number]), rewrite editor OLYA ARGUETA ([id number]) on 01/15/2019 12:12:48 PM Referred By: APOORVA Confirmed By:NELLI BECKER MD
--- NOTE | 2019-01-10 22:24 | RAD_ITS ---
STUDY: X-RAY CHEST REASON FOR EXAM: Female, 68 years old. Head pain, history of giant cell arteritis TECHNIQUE: Single AP portable view of the chest. COMPARISON: Prior study of August 09, 2018 FINDINGS: The lungs are clear and expanded. There is no demonstrated pleural abnormality. Normal size heart. Normal mediastinum and estelita. Normal visualized pulmonary arteries. Normal visualized aortic arch and descending thoracic aorta. Normal visualized thoracic spine. Normal visualized ribs, clavicles, and shoulders. There is no demonstrated abnormality of the visualized soft tissue structures of the upper abdomen. RAD/Chest 1 View (Portable) IMPRESSION: Normal x-ray examination of the chest. Electronically Signed: Adi Hammond MD at 22:34 EDT , Service support ,
[2019-01-10 22:28] VITALS: PULSE 106; RESP 23; O2SAT 96; O2SAT 97
[2019-01-10 22:42] LABS: Absolute Lymphocyte Count 2.05 X10^3/uL (0.83-4.51); Basophil# 0.03 X10^3/uL; Basophil% 0.2 % (0-1); Eosinophil# 0.02 X10^3/uL; Eosinophils% 0.1 % (0-5); Hematocrit 42.3 % (37-47); Hemoglobin 13.4 g/dL (12.0-15.0); Lymphocyte # 2.05 X10^3/ul (4.0); Lymphocyte % 14.4 % (19-41); Mean Corp Hgb Conc 31.7 g/dL (32-36); Mean Corpuscular Hgb 28.4 pg (27.0-32.0); Mean Corpuscular Volume 89.6 fL (81-99); Mean Platelet Vol. 9.4 fl (6.2-12.0); Monocyte# 0.91 X10^3/uL; Monocyte% 6.4 % (0-10); NRBC Flagged by Analyzer 0 % (0-5); Neutrophil # 10.97 X10^3/uL (2.7-7.7); Platelet Count 215 K/mm3 (150-450); RBC Distribution Width SD 49.4 fl (35.1-43.9); Red Blood Count 4.72 M/mm3 (4.2-5.4); White Blood Count 14.3 K/mm3 (4.4-11.0)
[2019-01-10 22:49] LABS: Erythrocyte Sedimentation Rate 30 mm/hr (0-30)
[2019-01-10 23:04] LABS: Anion Gap 4 (5-15); BUN 17 mg/dL (7-18); BUN/Creat Ratio 20.7 RATIO (10-20); Calcium,Total 8.7 mg/dL (8.5-10.1); Chloride 105 mmol/L (98-107); Creatinine, Serum 0.82 mg/dL (0.55-1.02); EST Glomerular Filtration Rate 74 mL/min (>60); Est Glom Filt Rate - Afr Amer 89 mL/min (>60); Estimated Creatinine Clearance 49.55 ml/min; Glucose 134 mg/dL (74-106); Potassium 3.9 mmol/L (3.5-5.1); Sodium Level 137 mmol/L (136-145)
--- NOTE | 2019-01-10 23:11 | ED.VISSUMM ---
- ER Visit Summary Date of Service: 01/10/19 Chief Complaint: Headache History of Present Illness: The patient is a 68 F with a chronic headache. Symptoms were worse yesterday. Patient has pain to her bilateral temples, neck, and face. She was seen by ophthalmology and rheumatology. She is being evaluated for temporal arteritis. She was previously on 40 mg of prednisone, but decreased to 20 mg about 2 weeks ago. So far her biopsies have been negative. She also has a history of Waldenstrom's, M?ni?re's, hypothyroidism, and migraines. Her ongoing headache is not similar to her prior migraines. Patient denies headache, trauma, or any neurologic symptoms. Denies any visual symptoms. She was concerned because her blood pressures have been high. Physical Examination: Blood pressure 160/105. Heart rate 106 and respiratory rate 23. Head and neck atraumatic and normal inspection. HEENT exam unremarkable. Cranial nerves grossly intact. Heart regular. Lungs clear. Abdomen soft and nontender. Extremities nontender with good range of motion. Good strength and sensation. Test Results: EKG showed sinus rhythm rate of 99. No sign of acute ischemia or infarction pattern. Troponin normal. White count 14.3, but the patient is on steroids. Metabolic panel and troponin normal. ESR 30. CT brain unremarkable. Emergency Department Course and Treatment: Patient declined pain medicine. Work-up as above was unremarkable. Nothing to suggest stroke. 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 We will also refer her to neurology. Follow-up with primary care for blood pressure management. Again, patient declined pain medicine. She may use [id number] remedies. Return for any new or worsening issues. Treatment Plan: As above Disposition: Discharge Impression: 1. Acute on chronic headache This note was generated with [employer] dictation software. It may contain incorrect words, spelling, and punctuation that were not noted in review of the chart prior to signing ED Disposition - Plan for ED Patient: Referrals: Mikael Ramires [Primary Care Provider] -
--- NOTE | 2019-01-10 23:15 | ED.DEP ---
ED Disposition - Plan for ED Patient: Instructions: HEADACHE, Unspecified Prescriptions: Prednisone 40 mg PO DAILY 30 Days #120 tab Prescription Printed Referrals: Mikael Ramires [Primary Care Provider] - Michael Briscoe MD [STAFF PHYSICIAN] - Additional Instructions: Follow up with ophthalmology and rheumatology as well.
[2019-01-10 23:25] VITALS: BP 143/79; PULSE 97; RESP 17; O2SAT 96
--- NOTE | 2019-01-10 23:33 | ED.RN ---
pt and educated on written and verbal discharge instructions and home going prescriptions. pt verbalizes understanding and denies any further questions. pt to follow up with neurologist. iv d/c and covered with 2x2 gauze and paper tape. dresses self and ambulates out of dept with .
== END 2019-01-10 23:34 | disposition home or self-care (01) ==
LOC: ED 22:44
PROVIDERS: Emergency Provider Emergency Medicine; Family Provider Family Medicine; PCP Family Medicine
DX: R51 Headache (principal); G89.29 Other chronic pain; I25.10 Atherosclerotic heart disease of native coronary artery without angina pectoris; C88.0 Waldenstrom macroglobulinemia; E03.9 Hypothyroidism, unspecified; J45.909 Unspecified asthma, uncomplicated; K21.9 Gastro-esophageal reflux disease without esophagitis; Z79.02 Long term (current) use of antithrombotics/antiplatelets; Z79.82 Long term (current) use of aspirin; Z79.52 Long term (current) use of systemic steroids; Z79.899 Other long term (current) drug therapy; I25.2 Old myocardial infarction; Z87.440 Personal history of urinary (tract) infections
CPT/HCPCS: 70450; 71045; 80048; 84484; 85025; 85652; 93005; 99285; A4216

== ENCOUNTER → 2019-01-25 10:52 | Outpatient (CLI) | payer MEDICARE, SELFPAY ==
[2018-06-21 08:53] VITALS: BMI 38.3
[2018-08-09 22:14] VITALS: BMI 35.4
[2019-01-10 21:54] VITALS: BMI 35.9
--- NOTE | 2019-01-25 10:58 | BD_ITS ---
STUDY: DUAL ENERGY X-RAY ABSORPTIOMETRY / DXA REASON FOR EXAM: Female, 68 years old. The patient is postmenopausal. Loss of height. TECHNIQUE: Bone Mineral Density (BMD) measurements of lumbar spine and bilateral hips were obtained. COMPARISON: Comparison is made with prior study dated May 28, 2015. FINDINGS: Lumbar Spine (L1-L4): g/cm2 (0.909) / T-score (-2.1) / Z-score (0.5) Findings are suggestive of osteopenia with a moderate fracture risk. Left Femur Total: g/cm2 (0.956) / T-score (-0.4) / Z-score (1.0) Left Femoral Neck: g/cm2 (0.753) / T-score (-2.1) / Z-score (0.4) Right Femur Total: g/cm2 (0.937) / T-score (-0.6) / Z-score (0.8) Right Femoral Neck: g/cm2 (0.754) / T-score (-2.0) / Z-score (-0.4) The T-Scores on the most recent prior examination were: Lumbar Spine (L1-L4): There has been improvement of bone density since the previous examination. Left Femur Total: which represents a worsening of 5.2%. Right Femur Total: which represents a worsening of 0.4%. BD/Dexa Bone Density Study IMPRESSION: The patient is considered osteopenic as outlined below according to World Naif Organization (WHO) criteria with a moderate fracture risk. There has been worsening of bone density since the previous examination. Reference Information: The T-score is the number of standard deviations above or below the standard which is normal for young adults at their peak bone mineral density. The World Health Organization (WHO) interprets the T-scores as follows: Above -1 Normal bone density Between -1 and -2.5 Osteopenia Equal to / or below -2.5 Osteoporosis As a practical clinical guideline, osteopenia may be graded as follows: Mild -1 through -1.5 Moderate -1.6 through -2.0 Severe -2.1 through -2.4 The Z-score is the number of standard deviations above or below age-matched controls. A Z-score of less than -1.5 would be considered abnormal. References: 1. NIH Osteoporosis and Related Bone Diseases http://www.osteo.org 2. International Society for Clinical Densitometry http://www.iscd.org 3. National Osteoporosis Foundation http://www.nof.org Electronically Signed: Donis Rocha, at 11:47 EDT , Service support ,
== END ==
PROVIDERS: Family Provider Family Medicine; PCP Family Medicine
DX: Z78.0 Asymptomatic menopausal state (principal); M31.6 Other giant cell arteritis; M81.0 Age-related osteoporosis without current pathological fracture
CPT/HCPCS: 77080

== ENCOUNTER → 2019-02-07 10:44 | Outpatient (CLI) | payer MEDICARE, SELFPAY ==
[2018-06-21 08:53] VITALS: BMI 38.3
[2019-02-05 14:47] VITALS: BMI 37.2
[2019-02-07 12:24] LABS: Absolute Lymphocyte Count 3.63 X10^3/uL (0.83-4.51); Absolute Neutrophil Count 6.3 X10^3/uL (2.0-7.7); Basophil# 0.04 X10^3/uL; Basophil% 0.4 % (0-1); Eosinophil# 0.08 X10^3/uL; Eosinophils% 0.7 % (0-5); Hematocrit 38.1 % (37-47); Lymphocyte # 3.63 X10^3/ul (4.0); Mean Corp Hgb Conc 31.5 g/dL (32-36); Mean Corpuscular Hgb 28.5 pg (27.0-32.0); Mean Corpuscular Volume 90.5 fL (81-99); Mean Platelet Vol. 9.7 fl (6.2-12.0); Monocyte# 0.73 X10^3/uL; Monocyte% 6.6 % (0-10); NRBC Flagged by Analyzer 0 % (0-5); Neutrophil # 6.32 X10^3/uL (2.7-7.7); Neutrophil % 57.6 % (47-70); Platelet Count 162 K/mm3 (150-450); RBC Distribution Width CV 15.2 % (11.6-14.6); RBC Distribution Width SD 50.1 fl (35.1-43.9); Red Blood Count 4.21 M/mm3 (4.2-5.4)
[2019-02-07 12:44] LABS: Vitamin D,25 Hydroxy 15.4 ng/mL (29.95-100.01)
[2019-02-07 12:47] LABS: AST(SGOT) 10 U/L (15-37); Alanine Aminotransfer ALT/SGPT 39 U/L (13-56); Albumin, Serum 3.1 g/dL (3.2-5.0); Alkaline Phosphatase 69 U/L (45-117); Anion Gap 8 (5-15); BUN 19 mg/dL (7-18); BUN/Creat Ratio 27.4 RATIO (10-20); Calcium,Total 8.5 mg/dL (8.5-10.1); Chloride 106 mmol/L (98-107); Cholesterol 141 mg/dL (200); Creatinine, Serum 0.69 mg/dL (0.55-1.02); EST Glomerular Filtration Rate 89 mL/min (>60); Est Glom Filt Rate - Afr Amer 108 mL/min (>60); Glucose 91 mg/dL (74-106); High Density Lipoprotein 81 mg/dL; Potassium 3.5 mmol/L (3.5-5.1); Protein, Total 6.1 g/dL (6.4-8.2); Sodium Level 140 mmol/L (136-145); T4 Free Direct 1.28 ng/dL (0.76-1.46); Thyroid Stim Hormone (TSH) 3.75 uIU/mL (0.358-3.74); Triglycerides 86 mg/dL; Very Low Density Lipoprotein 17 mg/dL (5-40)
[2019-02-08 20:07] LABS: Immunoglobulin G 348 mg/dL (700-1600); PROEL- A/G Ratio 1.2 (0.7-1.7); PROEL- Albumin 3.1 g/dL (2.9-4.4); PROEL- Alpha-1 Globulin 0.3 g/dL (0.0-0.4); PROEL- Alpha-2 Globulin 0.8 g/dL (0.4-1.0); PROEL- Beta Globulin 0.7 g/dL (0.7-1.3); PROEL- Gamma Globulin 0.6 g/dL (0.4-1.8); PROEL- Globulin, Total 2.5 g/dL (2.2-3.9); PROEL- TOTAL PROTEIN 5.6 g/dL (6.0-8.5)
[2019-02-09 12:28] LABS: Immunoglobulin A 45 mg/dL (87-352); Immunoglobulin M 370 mg/dL (26-217)
[2019-02-11 11:07] LABS: Beta-2-Microglobulin, S 1.6 mg/L (0.6-2.4)
== END ==
PROVIDERS: Family Provider Family Medicine; PCP Family Medicine; Visit Provider Family Medicine
DX: D89.0 Polyclonal hypergammaglobulinemia (principal); I25.10 Atherosclerotic heart disease of native coronary artery without angina pectoris; E03.9 Hypothyroidism, unspecified; E55.9 Vitamin D deficiency, unspecified; Z51.81 Encounter for therapeutic drug level monitoring
CPT/HCPCS: 36415; 80053; 80061; 82232; 82306; 82784; 84165; 84439; 84443; 85025; 86334

== ENCOUNTER → 2019-04-06 09:41 | Outpatient (CLI) | payer MEDICARE, SELFPAY ==
[2018-06-21 08:53] VITALS: BMI 38.3
[2019-03-06 13:31] VITALS: BMI 36.1
[2019-04-06 12:34] LABS: Erythrocyte Sedimentation Rate 27 mm/hr (0-30)
== END ==
PROVIDERS: Family Provider Family Medicine; PCP Family Medicine; Visit Provider Family Medicine
DX: M31.6 Other giant cell arteritis (principal)
CPT/HCPCS: 36415; 85652

== ENCOUNTER → 2019-04-11 09:51 | Outpatient (CLI) | payer MEDICARE, SELFPAY ==
[2018-06-21 08:53] VITALS: BMI 38.3
[2019-03-06 13:31] VITALS: BMI 36.1
--- NOTE | 2019-04-11 10:16 | MRI_ITS ---
STUDY: MRI BRAIN WITH AND WITHOUT CONTRAST REASON FOR EXAM: Female, 68 years old. Headache, tumor, giant cell arteritis TECHNIQUE: Standardized multiplanar fat and water weighted pulse sequences were obtained. IV Dotarem 19 was administered for the contrast portion of the examination. COMPARISON: 07/10/2014 FINDINGS: Normal size of the ventricles and extra-axial spaces for the patient's age. Normal white matter tracts of the supratentorial brain. There is no evidence for recent intracranial ischemia or other cause of cytotoxic edema on diffusion weighted imaging (DWI). Normal T2* images of the brain without demonstrated susceptibility artifact. There is no demonstrated hemosiderin stain. Normal bilateral basal ganglia. Normal thalami. There is no extra-axial fluid accumulation. Normal flow voids within the major intracranial circulation suggesting patency by spin echo criteria. Normal venous enhancement. There is no enhancing intra-axial or extra-axial abnormality. Normal sella turcica, pituitary gland, infundibular stalk, optic chiasm and hypothalamus. Normal tectal plate and pineal gland. Normal midbrain, addie and medulla. Normal cerebellum. Normal basal cisterns. Normal bilateral temporal bones. Normal bilateral internal auditory canals. No demonstrated orbital abnormality, within the constraints of a routine brain study. Normal visualized paranasal sinuses. Normal calvarium and skull base. Normal visualized soft tissue structures. Normal visualized upper cervical spine. MRI/Brain W/WO Contrast IMPRESSION: Normal unenhanced and enhanced MRI of the brain. Electronically Signed: Chico Jacobs MD at 12:00 EDT Tel , Service support ,
[2019-04-11 10:40] LABS: CREATININE FINGERSTICK 0.8 mg/dL (0.55-1.02); EGFR FINGERSTICK > 60.0000 mL/min (>60)
== END ==
PROVIDERS: Family Provider Family Medicine; PCP Family Medicine; Referring Provider Psychiatry & Neurology Neurology; Visit Provider Psychiatry & Neurology Neurology
DX: R51 Headache (principal); C80.1 Malignant (primary) neoplasm, unspecified
CPT/HCPCS: 70553; A9575

== ENCOUNTER → 2019-04-13 11:00 | Outpatient (CLI) | payer MEDICARE, SELFPAY ==
[2018-06-21 08:53] VITALS: BMI 38.3
[2019-03-06 13:31] VITALS: BMI 36.1
[2019-04-13 12:49] LABS: Erythrocyte Sedimentation Rate 26 mm/hr (0-30)
[2019-04-13 13:06] LABS: Hemoglobin A1c 5.6 % (4.2-6.3)
== END ==
PROVIDERS: Family Provider Family Medicine; PCP Family Medicine; Visit Provider Family Medicine
DX: M31.6 Other giant cell arteritis (principal); R73.01 Impaired fasting glucose
CPT/HCPCS: 36415; 83036; 85652

== ENCOUNTER → 2019-04-20 10:56 | Outpatient (CLI) | payer MEDICARE, SELFPAY ==
[2018-06-21 08:53] VITALS: BMI 38.3
[2019-03-06 13:31] VITALS: BMI 36.1
[2019-04-20 12:33] LABS: Erythrocyte Sedimentation Rate 40 mm/hr (0-30)
== END ==
PROVIDERS: Family Provider Family Medicine; PCP Family Medicine; Visit Provider Family Medicine
DX: M31.6 Other giant cell arteritis (principal)
CPT/HCPCS: 36415; 85652

== ENCOUNTER → 2019-04-27 10:53 | Outpatient (CLI) | payer MEDICARE, SELFPAY ==
[2018-06-21 08:53] VITALS: BMI 38.3
[2019-03-06 13:31] VITALS: BMI 36.1
[2019-04-27 12:34] LABS: Erythrocyte Sedimentation Rate 33 mm/hr (0-30)
== END ==
PROVIDERS: Family Provider Family Medicine; PCP Family Medicine; Visit Provider Family Medicine
DX: M31.6 Other giant cell arteritis (principal)
CPT/HCPCS: 36415; 85652

== ENCOUNTER → 2019-05-04 11:08 | Outpatient (CLI) | payer MEDICARE, SELFPAY ==
[2018-06-21 08:53] VITALS: BMI 38.3
[2019-04-27 13:45] VITALS: BMI 36.1
[2019-05-04 13:04] LABS: Erythrocyte Sedimentation Rate 35 mm/hr (0-30)
== END ==
PROVIDERS: Family Provider Family Medicine; PCP Family Medicine; Visit Provider Family Medicine
DX: M31.6 Other giant cell arteritis (principal)
CPT/HCPCS: 36415; 85652

== ENCOUNTER → 2019-05-11 12:09 | Outpatient (CLI) | payer MEDICARE, SELFPAY ==
[2018-06-21 08:53] VITALS: BMI 38.3
[2019-04-27 13:45] VITALS: BMI 36.1
--- NOTE | 2019-05-11 12:14 | STEWCON_ITS ---
Reason For Study: Chest Pain; CAD Stress Results Protocol: Dobutamine Stress Echo Maximum Predicted HR: 152 bpm Target HR: 129 bpm % Maximum Predicted HR: 89 % DurationHeart Rate Stage (mm:ss) (bpm) BP Comment Baseline 82 117/69No Chest Pain; 3 ML Diluted Definity Given DSE 10 MCG 3:00 78 131/74No Chest Pain DSE 20 MCG 3:00 118 139/61No Chest Pain DSE 30 MCG 1:29 136 150/59No Chest Pain Recovery 97 120/65No Chest Pain Stress Duration: 7:29 mm:ss Maximum Stress HR: 136 bpm METS: 1 Baseline Echocardiogram Findings The estimated ejection fraction is 65 %. Stress Echo Wall motion Data Resting WM Intermediate WM Stress WM Resting Wall Motion Wall Motion Stress No regional wall motion No regional wall motion abnormalities noted. abnormalities noted. EKG Data The baseline ECG displays normal sinus rhythm. The patient was titrated from 10 mcg to a maximun of 30 mcg of dobutamine during the stress. The maximum heart rate attained was 146 beats per minute. This was 96% of maximum predicted heart rate. During dobutamine infusion, there were no ST or T wave changes noted to suggest ischemia. No clinical angina was noted. Interpretation Summary The estimated ejection fraction is 65 %. Normal, adequate, dobutamine echocardiogram. Negative for ischemia by EKG and echocardiographic criteria. No anginal symptoms noted. Rare PACs and PVCs noted during infusion which is a nonspecific finding given dobutamine. Test terminated due to the attainment of target heart rate. Final LVEF is 75%. Decreased sensitivity due to poor echo windows requiring Definity agent. Patient tolerated procedure well. No complications. The study was technically difficult. Contrast injection was performed. Ordering Physician: Artur Kingston Referring Physician: Andrew Warner Performed By: Orquidea Laird RDCS
== END ==
PROVIDERS: Family Provider Family Medicine; PCP Family Medicine; Referring Provider Nurse Practitioner Family; Visit Provider Nurse Practitioner Family
DX: R07.9 Chest pain, unspecified (principal); I25.10 Atherosclerotic heart disease of native coronary artery without angina pectoris; I10 Essential (primary) hypertension; E78.5 Hyperlipidemia, unspecified; R00.2 Palpitations; Z95.5 Presence of coronary angioplasty implant and graft
CPT/HCPCS: 93017; 93350; J7040; Q9957; A4216; C8928

== ENCOUNTER 2019-05-18 11:15 | Outpatient (RCR) | payer MEDICARE, SELFPAY ==
[2018-06-21 08:53] VITALS: BMI 38.3
[2019-04-27 13:45] VITALS: BMI 36.1
[2019-05-18 16:12] LABS: Erythrocyte Sedimentation Rate 19 mm/hr (0-30)
[2019-05-18 16:26] LABS: AST(SGOT) 20 U/L (15-37); Alanine Aminotransfer ALT/SGPT 34 U/L (13-56); Albumin, Serum 3.3 g/dL (3.2-5.0); Alkaline Phosphatase 98 U/L (45-117); Bilirubin, Direct 0.12 mg/dL (0.00-0.30); Cholesterol 125 mg/dL (200); High Density Lipoprotein 60 mg/dL; Protein, Total 6.3 g/dL (6.4-8.2); Triglycerides 109 mg/dL; Very Low Density Lipoprotein 22 mg/dL (5-40)
== END 2019-05-26 23:59 ==
LOC: LAB.FUTURE 11:15
PROVIDERS: Physician Assistant Medical; Family Provider Family Medicine; PCP Family Medicine; Visit Provider Family Medicine
DX: M31.6 Other giant cell arteritis (principal); E78.5 Hyperlipidemia, unspecified
CPT/HCPCS: 36415; 80061; 80076; 85652

== ENCOUNTER → 2019-05-30 13:19 | Outpatient (CLI) | payer MEDICARE, SELFPAY ==
[2018-06-21 08:53] VITALS: BMI 38.3
[2019-04-27 13:45] VITALS: BMI 36.1
[2019-05-30 16:16] LABS: Erythrocyte Sedimentation Rate 32 mm/hr (0-30)
== END ==
PROVIDERS: Family Provider Family Medicine; PCP Family Medicine; Visit Provider Family Medicine
DX: M31.6 Other giant cell arteritis (principal)
CPT/HCPCS: 36415; 85652

== ENCOUNTER → 2019-06-14 11:35 | Outpatient (CLI) | payer MEDICARE, SELFPAY ==
[2018-06-21 08:53] VITALS: BMI 38.3
[2019-06-07 11:17] VITALS: BMI 37.0
[2019-06-14 16:02] LABS: Erythrocyte Sedimentation Rate 25 mm/hr (0-30)
== END ==
PROVIDERS: Family Provider Family Medicine; PCP Family Medicine; Visit Provider Family Medicine
DX: M31.6 Other giant cell arteritis (principal)
CPT/HCPCS: 36415; 85652

== ENCOUNTER → 2019-06-21 11:41 | Outpatient (CLI) | payer MEDICARE, SELFPAY ==
[2018-06-21 08:53] VITALS: BMI 38.3
[2019-06-07 11:17] VITALS: BMI 37.0
[2019-06-21 12:03] LABS: Absolute Lymphocyte Count 1.58 X10^3/uL (0.83-4.51); Absolute Neutrophil Count 4.5 X10^3/uL (2.0-7.7); Basophil# 0.02 X10^3/uL; Basophil% 0.3 % (0-1); Eosinophil# 0.13 X10^3/uL; Eosinophils% 1.9 % (0-5); Hematocrit 39.3 % (37-47); Hemoglobin 12.2 g/dL (12.0-15.0); Lymphocyte # 1.58 X10^3/ul (4.0); Lymphocyte % 23.3 % (19-41); Mean Corpuscular Hgb 26.6 pg (27.0-32.0); Mean Corpuscular Volume 85.8 fL (81-99); Monocyte% 7.4 % (0-10); NRBC Flagged by Analyzer 0 % (0-5); Neutrophil # 4.53 X10^3/uL (2.7-7.7); Neutrophil % 66.8 % (47-70); Platelet Count 176 K/mm3 (150-450); RBC Distribution Width CV 13.8 % (11.6-14.6); Red Blood Count 4.58 M/mm3 (4.2-5.4); White Blood Count 6.8 K/mm3 (4.4-11.0)
[2019-06-21 13:04] LABS: Anion Gap 5 (5-15); BUN 17 mg/dL (7-18); BUN/Creat Ratio 23.7 RATIO (10-20); Calcium,Total 9.2 mg/dL (8.5-10.1); Chloride 108 mmol/L (98-107); Creatinine, Serum 0.72 mg/dL (0.55-1.02); EST Glomerular Filtration Rate 86 mL/min (>60); Est Glom Filt Rate - Afr Amer 104 mL/min (>60); Glucose 139 mg/dL (74-106); Magnesium 1.9 mg/dL (1.6-2.6); Potassium 3.6 mmol/L (3.5-5.1); Sodium Level 140 mmol/L (136-145); Thyroid Stim Hormone (TSH) 1.83 uIU/mL (0.358-3.74)
== END ==
PROVIDERS: Family Provider Family Medicine; PCP Family Medicine; Referring Provider Physician Assistant Medical; Visit Provider Physician Assistant Medical
DX: R53.83 Other fatigue (principal); R00.2 Palpitations
CPT/HCPCS: 36415; 80048; 83735; 84443; 85025

== ENCOUNTER → 2019-07-12 13:42 | Outpatient (CLI) | payer MEDICARE, SELFPAY ==
[2018-06-21 08:53] VITALS: BMI 38.3
[2019-06-21 14:10] VITALS: BMI 37.0
[2019-07-12 15:43] LABS: Erythrocyte Sedimentation Rate 31 mm/hr (0-30)
== END ==
PROVIDERS: PCP Family Medicine; Visit Provider Family Medicine
DX: M31.6 Other giant cell arteritis (principal)
CPT/HCPCS: 36415; 85652

== ENCOUNTER → 2019-08-08 11:06 | Outpatient (CLI) | payer MEDICARE, SELFPAY ==
[2018-06-21 08:53] VITALS: BMI 38.3
[2019-06-21 14:10] VITALS: BMI 37.0
[2019-08-08 12:25] LABS: Erythrocyte Sedimentation Rate 51 mm/hr (0-30)
[2019-08-08 12:48] LABS: AST(SGOT) 9 U/L (15-37); Alanine Aminotransfer ALT/SGPT 23 U/L (13-56); Albumin, Serum 3.6 g/dL (3.2-5.0); Alkaline Phosphatase 103 U/L (45-117); Bilirubin, Direct 0.14 mg/dL (0.00-0.30); CPK Total, Creatine Kinase 39 U/L (26-192); CRP 6.82 mg/L (0.0-3.0); Globulin 3.7 g/dL (2.2-4.2); Protein, Total 7.3 g/dL (6.4-8.2); T4 Free Direct 1.18 ng/dL (0.76-1.46); Thyroid Stim Hormone (TSH) 3.05 uIU/mL (0.358-3.74)
== END ==
PROVIDERS: PCP Family Medicine; Visit Provider Family Medicine
DX: M79.10 Myalgia, unspecified site (principal); E03.9 Hypothyroidism, unspecified; Z51.81 Encounter for therapeutic drug level monitoring
CPT/HCPCS: 36415; 80076; 82550; 84439; 84443; 85652; 86140

== ENCOUNTER → 2019-12-24 10:17 | Outpatient (CLI) | payer MEDICARE, SELFPAY ==
[2018-06-21 08:53] VITALS: BMI 38.3
[2019-06-21 14:10] VITALS: BMI 37.0
[2019-12-24 10:44] LABS: Erythrocyte Sedimentation Rate 44 mm/hr (0-30)
[2019-12-24 10:46] LABS: Absolute Lymphocyte Count 1.69 X10^3/uL (0.83-4.51); Absolute Neutrophil Count 4.3 X10^3/uL (2.0-7.7); Basophil# 0.02 X10^3/uL; Basophil% 0.3 % (0-1); Hematocrit 40.9 % (37-47); Hemoglobin 12.9 g/dL (12.0-15.0); Lymphocyte # 1.69 X10^3/ul (4.0); Lymphocyte % 25.3 % (19-41); Mean Corp Hgb Conc 31.5 g/dL (32-36); Mean Corpuscular Volume 88.7 fL (81-99); Mean Platelet Vol. 9.8 fl (6.2-12.0); Monocyte# 0.51 X10^3/uL; Monocyte% 7.6 % (0-10); NRBC Flagged by Analyzer 0 % (0-5); Neutrophil # 4.26 X10^3/uL (2.7-7.7); Neutrophil % 63.7 % (47-70); Platelet Count 211 K/mm3 (150-450); RBC Distribution Width CV 13.9 % (11.6-14.6); RBC Distribution Width SD 45.1 fl (35.1-43.9); Red Blood Count 4.61 M/mm3 (4.2-5.4); White Blood Count 6.7 K/mm3 (4.4-11.0)
[2019-12-24 11:14] LABS: ALB/GLOB Ratio 0.9 RATIO (0.9-2.4); AST(SGOT) 13 U/L (15-37); Alanine Aminotransfer ALT/SGPT 24 U/L (13-56); Albumin, Serum 3.5 g/dL (3.2-5.0); Alkaline Phosphatase 98 U/L (45-117); Anion Gap 6 (5-15); BUN 15 mg/dL (7-18); BUN/Creat Ratio 19.7 RATIO (10-20); CPK Total, Creatine Kinase 42 U/L (26-192); CRP 5.53 mg/L (0.0-3.0); Calcium,Total 9.1 mg/dL (8.5-10.1); Chloride 105 mmol/L (98-107); Cholesterol 133 mg/dL (200); Creatinine, Serum 0.76 mg/dL (0.55-1.02); EST Glomerular Filtration Rate 80 mL/min (>60); Est Glom Filt Rate - Afr Amer 97 mL/min (>60); Globulin 3.7 g/dL (2.2-4.2); Glucose 116 mg/dL (74-106); High Density Lipoprotein 64 mg/dL; Potassium 3.5 mmol/L (3.5-5.1); Protein, Total 7.2 g/dL (6.4-8.2); Sodium Level 137 mmol/L (136-145); Thyroid Stim Hormone (TSH) 4.33 uIU/mL (0.358-3.74); Triglycerides 137 mg/dL; Very Low Density Lipoprotein 27 mg/dL (5-40)
[2019-12-24 11:16] LABS: AST(SGOT) 13 U/L (15-37); Alanine Aminotransfer ALT/SGPT 23 U/L (13-56); Albumin, Serum 3.6 g/dL (3.2-5.0); Alkaline Phosphatase 95 U/L (45-117); Bilirubin, Direct 0.16 mg/dL (0.00-0.30); Globulin 3.5 g/dL (2.2-4.2); Protein, Total 7.1 g/dL (6.4-8.2)
== END ==
PROVIDERS: Internal Medicine Cardiovascular Disease; PCP Family Medicine; Referring Provider Family Medicine; Visit Provider Family Medicine
DX: M79.10 Myalgia, unspecified site (principal); I25.10 Atherosclerotic heart disease of native coronary artery without angina pectoris; E55.9 Vitamin D deficiency, unspecified; E03.9 Hypothyroidism, unspecified; M35.3 Polymyalgia rheumatica; E78.5 Hyperlipidemia, unspecified; Z51.81 Encounter for therapeutic drug level monitoring
CPT/HCPCS: 36415; 80053; 80061; 80076; 82306; 82533; 82550; 84443; 85025; 85652; 86140

== ENCOUNTER → 2020-02-15 13:47 | Outpatient (CLI) | payer MEDICARE, SELFPAY ==
[2018-06-21 08:53] VITALS: BMI 38.3
[2019-06-21 14:10] VITALS: BMI 37.0
[2020-02-15 15:36] LABS: Erythrocyte Sedimentation Rate 34 mm/hr (0-30)
== END ==
PROVIDERS: PCP Family Medicine; Visit Provider Family Medicine
DX: M35.3 Polymyalgia rheumatica (principal)
CPT/HCPCS: 36415; 85652

== ENCOUNTER → 2020-03-14 13:25 | Outpatient (CLI) | payer MEDICARE, SELFPAY ==
[2018-06-21 08:53] VITALS: BMI 38.3
[2019-06-21 14:10] VITALS: BMI 37.0
[2020-03-14 15:59] LABS: Erythrocyte Sedimentation Rate 34 mm/hr (0-30)
[2020-03-14 16:27] LABS: Hemoglobin A1c 6.2 % (3.8-5.6)
== END ==
PROVIDERS: PCP Family Medicine; Visit Provider Family Medicine
DX: M35.3 Polymyalgia rheumatica (principal); R73.01 Impaired fasting glucose
CPT/HCPCS: 36415; 83036; 85652

== ENCOUNTER 2020-03-26 17:06 | Emergency (ER) | payer MEDICARE, SELFPAY ==
[2018-06-21 08:53] VITALS: BMI 38.3
[2020-03-25 08:13] VITALS: BMI 38.3
[2020-03-26 17:07] VITALS: BP 170/64; PULSE 101; RESP 18; TEMP 36.8; O2SAT 97; BMI 39.6
--- NOTE | 2020-03-26 17:39 | CT_ITS ---
STUDY: CT BRAIN WITHOUT CONTRAST REASON FOR EXAM: Female, 69 years old. HEAD INJURY AND NECK PAIN POST FALL,LACERATION TO FOREHEAD,PT DENIES LOC,TAKES PLAVIX -- HX:ASTHMA,HTN,MEINERE''S,HYPOTHYROID,POLYMYALGIA RHEUMATICA,WALDENSTROM''S-BLOOD CANCER RADIATION DOSAGE (If Supplied By Facility): CTDIvol = ( 44.99 ) mGy, DLP = ( 762.36 ) mGycm TECHNIQUE: Transaxial CT imaging of the brain was performed without administration of intravenous contrast material. Individualized dose optimization techniques were used for this CT. COMPARISON: 04/11/2019 FINDINGS: Normal soft tissue structures. There is hyperostosis frontalis internus. Normal size ventricles and extra-axial spaces for the patient''s age. Normal white matter tracts of the cerebral hemispheres. Normal basal ganglia and thalami. Normal brainstem. Normal cerebellum. There is no intracranial hemorrhage. There are no findings of an acute ischemic infarction. Normal visualized paranasal sinuses. CT/Brain/Head without Contrast IMPRESSION: No acute intracranial process. Electronically Signed: Stephanie Hickey MD at 18:31 EDT Tel , Service support ,
--- NOTE | 2020-03-26 17:39 | CT_ITS ---
STUDY: CT CERVICAL SPINE WITHOUT CONTRAST REASON FOR EXAM: Female, 69 years old. HEAD INJURY AND NECK PAIN POST Fall, laceration to Forehead, pt DENIES LOC,TAKES PLAVIX -- HX:ASTHMA,HTN,MEINERE''S,HYPOTHYROID,POLYMYALGIA RHEUMATICA,WALDENSTROM''S-BLOOD CANCER RADIATION DOSAGE (If Supplied By Facility): CTDIvol = ( 24.22 ) mGy, DLP = ( 461.23 ) mGycm TECHNIQUE: High resolution transaxial imaging was performed without contrast material. Sagittal and coronal images were reconstructed. Individualized dose optimization techniques were used for this CT. COMPARISON: None FINDINGS: Normal craniovertebral junction. Normal anterior atlantoaxial articulation. Normal odontoid process. Normal cervical lordosis. There is multilevel facet hypertrophy. C2-3: Normal endplates. Normal disc height and morphology. Normal central canal and intervertebral neuroforamina. C3-4: Normal endplates. Normal disc height and morphology. Normal central canal and intervertebral neuroforamina. C4-5: There is endplate spondylosis. Normal central canal and intervertebral neuroforamina. C5-6: There is endplate spondylosis. Normal central canal and intervertebral neuroforamina. C6-7: There is endplate spondylosis. Normal central canal and intervertebral neuroforamina. C7-T1: Normal endplates. Normal disc height and morphology. Normal central canal and intervertebral neuroforamina. Normal visualized soft tissue structures. CT/Spine Cervical without Contras IMPRESSION: Multilevel degenerative changes, as described above. Electronically Signed: Stephanie Hickey MD at 18:28 EDT Tel , Service support ,
--- NOTE | 2020-03-26 17:42 | ED.VIS.GEN ---
History of Present Illness Chief Complaint: Fall Informant: Patient Narrative: 69-year-old female on aspirin and Plavix presenting after mechanical fall. She tripped over a concrete parking lot and fell forward onto her hands, right knee, right shoulder. She did hit her head in the forehead and has a small laceration. She does not have dizziness, lightheadedness, confusion, nausea. She complains of pain in the area where she did hit the ground. Was able to get up and ambulate. Last tetanus is unknown. - Past Medical History (1) Acute ST elevation myocardial infarction Status: Chronic (2) Temporal arteritis Status: Chronic (3) Asthma Status: Chronic (4) GERD (gastroesophageal reflux disease) Status: Chronic (5) HLD (hyperlipidemia) Status: Chronic (6) HTN (hypertension) Status: Chronic Past Medical History - Allergies and Home Meds Allergies/Adverse Reactions: Allergies clarithromycin [From Biaxin] Allergy (Verified 03/26/20 17:13) Rash sulfamethoxazole [From Bactrim] Allergy (Verified 03/26/20 17:13) Rash trimethoprim [From Bactrim] Allergy (Verified 03/26/20 17:13) Rash carvedilol [From Coreg] Adverse Reaction (Intermediate, Verified 03/26/20 17:13) Nausea, Lightheaded codeine Adverse Reaction (Verified 03/26/20 17:13) Upset Stomach lisinopril Adverse Reaction (Verified 03/26/20 17:13) cough Penicillins Adverse Reaction (Verified 03/26/20 17:13) Other Primary Care Physician: Mikael Ramires [Primary Care Provider] - Prior records reviewed: Yes Past Medical History: - - Reviewed in problem list Surgical History: tonsillectomy, - - section, D+C, Breast Bx, T+A, PCI x 2. Lives: With Family Smoking Status: Never smoker Alcohol: None - Family History Maternal Family History: Family History (Last Reviewed 06/06/19 @ 16:03 by Liana Guadalupe) Mother Cancer Anemia Father Cancer Heart disease Family History: Reports: - Paternal Family History: Family History (Last Reviewed 06/06/19 @ 16:03 by Liana Guadalupe) Mother Cancer Anemia Father Cancer Heart disease Family History: Reports: - Review of Systems General: Denies: Chills, Fever, Sweats Eyes: Denies: Visual changes - bilaterally, Diplopia ENT: Denies: Rhinorrhea, Sore throat Cardiovascular: Denies: Chest pain, Palpitations Respiratory: Denies: Dyspnea, Cough, Dyspnea on exertion Gastrointestinal: Denies: Abdominal pain, Nausea, Vomiting, Diarrhea, Melena, Hematochezia Genitourinary: Denies: Dysuria, Hematuria, Frequency Musculoskeletal: Reports: Neck pain, - - Bilateral hand pain, right knee pain, right shoulder pain, Skin: Reports: - - 3 cm laceration to the forehead and horizontal lie Neurological: Reports: Headache. Denies: Parasthesia, Numbness Psych: Denies: Depression, Anxiety Physical Exam Vital Signs/Narrative: Vital Signs Temp Pulse Resp BP Pulse Ox 03/26/20 17:07 98.3 F 101 H 18 170/64 H 97 Inital Vital Signs reviewed: Yes General: Obese, No Acute Distress Head: Normocephalic, - - Tender laceration horizontally on the mid forehead. Eyes: Perrl. Negative for: Scleral icterus ENT: Moist mucous membranes, TM's clear, - - No hemotympanum Cardiovascular: Regular rate, Regular rhythm Abdomen: Soft, Nontender Back: - - Cervical paraspinal muscular tenderness without midline spinal deformity or step-off. Extremities: - - Tenderness to palpation right patella. No obvious deformity. Patient is able to range this actively and passively. Skin: - - Patient is described above. Negative for: Normal color, No rash Neurological: Alert, Oriented x3 Psychological: Normal affect, Normal Mood Diagnostic/Tx/Re-eval Clinical Impression(s) from Imaging Studies Brain CT 03/26/20 17:39 IMPRESSION: No acute intracranial process. Electronically Signed: Stephanie Hickey MD at 18:31 EDT Tel , Service support , Cervical Spine CT 03/26/20 17:39 IMPRESSION: Multilevel degenerative changes, as described above. Electronically Signed: Stephanie Hickey MD at 18:28 EDT Tel , Service support , Knee X-Ray 03/26/20 18:20 IMPRESSION: Degenerative arthrosis. Soft tissue swelling. Electronically Signed: Stephanie Hickey MD at 18:58 EDT Tel , Service support , Shoulder X-Ray 03/26/20 18:27 IMPRESSION: Within normal limits x-ray examination of the shoulder. Electronically Signed: Stephanie Hickey MD at 18:59 EDT Tel , Service support , Hand X-Ray 03/26/20 18:33 IMPRESSION: Degenerative joint disease of the hand and wrist, as described above. Electronically Signed: Stephanie Hickey MD at 19:01 EDT Tel , Service support , Hand X-Ray 03/26/20 18:39 IMPRESSION: Degenerative joint disease of the hand and wrist, as described above. Electronically Signed: Stephanie Hickey MD at 19:03 EDT Tel , Service support , - Medical Decision Making Patient presents after mechanical fall with right knee pain, right shoulder pain, bilateral hand pain, laceration to forehead. All of her x-rays were negative. CT brain and cervical spine were also negative. This was updated. Laceration was repaired. See procedure note. Patient is stable for discharge at this time. Procedures - Lacerations No standard instances Depth: Skin Shape: Linear Prep: Sterile Conditions, Chlorhexadine Laceration repair: Lidocaine with epi Irrigated (ml): 500 Suture Information: Vicryl, 5-0 ED Disposition - Plan for ED Patient: Disposition: Home or Assisted Living Instructions: ED Mechanical Fall, ED Laceration All Closures Referrals: Mikael Ramires [Primary Care Provider] -
--- NOTE | 2020-03-26 18:20 | RAD_ITS ---
STUDY: X-RAY - RIGHT KNEE REASON FOR EXAM: Female, 69 years old. FALL IN A PARKING LOT TODAY, BRUISING AND SKINNED JIMENEZ ON RIGHT KNEE. TECHNIQUE: 4 view(s) of the knee. COMPARISON: None. FINDINGS: Normal visualized distal femur. Normal visualized proximal tibia and fibula. Normal proximal tibiofibular articulation. There is mild degenerative arthrosis of the medial femorotibial compartment. Normal lateral femorotibial compartment. There is mild degenerative arthrosis of the patellofemoral articulation. There is soft tissue swelling ventral to the patella. RAD/Knee 4 or More Views IMPRESSION: Degenerative arthrosis. Soft tissue swelling. Electronically Signed: Stephanie Hickey MD at 18:58 EDT Tel , Service support ,
--- NOTE | 2020-03-26 18:27 | RAD_ITS ---
STUDY: X-RAY - RIGHT SHOULDER REASON FOR EXAM: Female, 69 years old. FALL IN A PARKING LOT TODAY, BRUISING AND RIGHT SHOULDER PAIN. TECHNIQUE: 4 view(s) of the shoulder. COMPARISON: Left shoulder dated 01/29/2014 and chest radiograph dated 08/09/2018 and 01/10/2019 FINDINGS: Normal glenohumeral articulation. Normal acromioclavicular joint. Normal acromion. Normal humeral head and visualized proximal humerus. Grossly stable soft tissues Normal visualized pulmonary apex. RAD/Shoulder min 2 Views IMPRESSION: Within normal limits x-ray examination of the shoulder. Electronically Signed: Stephanie Hickey MD at 18:59 EDT Tel , Service support ,
--- NOTE | 2020-03-26 18:33 | RAD_ITS ---
STUDY: X-RAY - RIGHT HAND REASON FOR EXAM: Female, 69 years old. RIGHT HAND PAIN AFTER FALL TODAY. TECHNIQUE: 3 view(s) of the hand. COMPARISON: Left hand dated 03/26/2020 FINDINGS: There is joint space narrowing of the radiocarpal articulation consistent with degenerative arthrosis. Normal distal radioulnar joint. Normal visualized carpal bones. Normal carpal articulations Normal carpometacarpal articulation of the thumb. Normal second through fifth carpometacarpal joints. Normal metacarpi. There is degenerative arthrosis of the metacarpophalangeal (MCP) joints. Normal interphalangeal joint of the thumb. Normal proximal and distal phalanges of the thumb. Normal metacarpophalangeal joints of the second through fifth fingers. There is diffuse articular joint space narrowing of the proximal and distal interphalangeal joints of the second through fifth fingers, but without erosive changes or periarticular soft tissue swelling. Normal phalanges of the second through fifth fingers. The soft tissue structures are unremarkable. RAD/Hand Min 3 Views IMPRESSION: Degenerative joint disease of the hand and wrist, as described above. Electronically Signed: Stephanie Hickey MD at 19:01 EDT Tel , Service support ,
--- NOTE | 2020-03-26 18:39 | RAD_ITS ---
STUDY: X-RAY - LEFT HAND REASON FOR EXAM: Female, 69 years old. LEFT HAND PAIN AFTER FALL TODAY. TECHNIQUE: 3 view(s) of the hand. COMPARISON: Right hand dated 03/26/2020 FINDINGS: There is joint space narrowing of the radiocarpal articulation consistent with degenerative arthrosis. Normal distal radioulnar joint. Normal visualized carpal bones. Normal carpal articulations There is degenerative arthrosis of the carpometacarpal (CMC) articulation of the thumb. Normal second through fifth carpometacarpal joints. Normal metacarpi. Normal metacarpophalangeal joint of the thumb. Normal interphalangeal joint of the thumb. Normal proximal and distal phalanges of the thumb. Normal metacarpophalangeal joints of the second through fifth fingers. There is diffuse articular joint space narrowing of the proximal and distal interphalangeal joints of the second through fifth fingers, but without erosive changes or periarticular soft tissue swelling. Normal phalanges of the second through fifth fingers. The soft tissue structures are unremarkable. RAD/Hand Min 3 Views IMPRESSION: Degenerative joint disease of the hand and wrist, as described above. Electronically Signed: Stephanie Hickey MD at 19:03 EDT Tel , Service support ,
[2020-03-26] MEDS: Lidocaine/Epi/Tetracaine 50 ML 1 APPLIC TOPICAL (18:53)
[2020-03-26 19:14] VITALS: BP 145/74; PULSE 100; RESP 20; O2SAT 96
[2020-03-26] MEDS: Diphth,Pertuss(Acell),Tet Vac 0.5 ML Vial IM (19:16)
[2020-03-26 20:10] VITALS: BP 155/75; PULSE 100; RESP 18; O2SAT 96
== END 2020-03-26 20:12 | disposition home or self-care (01) ==
PROVIDERS: Emergency Provider Student in an Organized Health Care Education/Training Program; PCP Family Medicine
DX: S01.81XA Laceration without foreign body of other part of head, initial encounter (principal); M54.2 Cervicalgia; M25.561 Pain in right knee; M25.511 Pain in right shoulder; M79.642 Pain in left hand; M79.641 Pain in right hand; W01.0XXA Fall on same level from slipping, tripping and stumbling without subsequent striking against object, initial encounter; Y93.9 Activity, unspecified; Y92.481 Parking lot as the place of occurrence of the external cause; Y99.9 Unspecified external cause status; Z23 Encounter for immunization; I10 Essential (primary) hypertension; E78.5 Hyperlipidemia, unspecified; J45.909 Unspecified asthma, uncomplicated; K21.9 Gastro-esophageal reflux disease without esophagitis; E66.9 Obesity, unspecified; Z79.02 Long term (current) use of antithrombotics/antiplatelets; Z79.82 Long term (current) use of aspirin; Z79.52 Long term (current) use of systemic steroids; Z79.899 Other long term (current) drug therapy; I25.2 Old myocardial infarction
CPT/HCPCS: 12013; 70450; 72125; 73030; 73130; 73564; 90471; 90715; 99285

== ENCOUNTER → 2020-05-29 13:52 | Outpatient (CLI) | payer MEDICARE, SELFPAY ==
[2018-06-21 08:53] VITALS: BMI 38.3
[2020-05-29 15:04] LABS: Erythrocyte Sedimentation Rate 32 mm/hr (0-30)
[2020-05-29 15:42] LABS: Hemoglobin A1c 5.9 % (3.8-5.6)
== END ==
PROVIDERS: PCP Family Medicine; Visit Provider Family Medicine
DX: M35.3 Polymyalgia rheumatica (principal); R73.9 Hyperglycemia, unspecified
CPT/HCPCS: 36415; 83036; 85652

== ENCOUNTER → 2020-06-11 12:13 | Outpatient (CLI) | payer MEDICARE, SELFPAY ==
[2018-06-21 08:53] VITALS: BMI 38.3
--- NOTE | 2020-06-11 12:15 | BI_ITS ---
MAMMOGRAPHY - BILATERAL SCREENING REASON FOR EXAM: Female, 69 years old. Routine annual screening examination. PERTINENT HISTORY: Non-contributory. TECHNIQUE: Digital bilateral breast zack (3D mammographic acquisition) in the CC and MLO projections. 2-D mediolateral oblique (MLO) and craniocaudad (CC) views of both breasts were obtained. CAD: Full Field Digital Mammography with Computer Added Detection was performed. COMPARISON: Comparison is made with prior study dated 06/13/2017. FINDINGS: Breast Composition: There are scattered areas of fibroglandular density. There are no dominant masses or suspicious calcifications. Stable benign-appearing bilateral axillary lymph nodes. No other significant abnormalities are identified. There has been no significant change since the prior study. BI/SCREEN MAMM (CAD) W/ZACK BILAT IMPRESSION: Stable bilateral screening mammogram. Yearly follow-up mammogram recommended. (A) ASSESSMENT CATEGORY: BIRADS Category 2: Benign. A letter regarding these results will be sent to the patient by the facility within 30 days. Approximately 10% of breast cancers are not detected by mammography. A normal mammogram should not delay biopsy of a clinically suspicious abnormality. [id number] Electronically Signed: Donis Rocha, at 13:33 EST , Service support ,
== END ==
PROVIDERS: PCP Family Medicine; Referring Provider Family Medicine; Visit Provider Family Medicine
DX: Z12.31 Encounter for screening mammogram for malignant neoplasm of breast (principal)
CPT/HCPCS: 77063; 77067

== ENCOUNTER → 2020-07-22 16:56 | Outpatient (CLI) | payer MEDICARE, SELFPAY ==
[2018-06-21 08:53] VITALS: BMI 38.3
--- NOTE | 2020-07-22 16:58 | MRI_ITS ---
STUDY: MRI RIGHT HIP REASON FOR EXAM: Right hip pain since last April. TECHNIQUE: Standardized fat and water weighted pulse sequences were obtained in all 3 orthogonal planes. COMPARISON: Radiographs 06/05/2020. FINDINGS: Normal hip joint without articular joint space narrowing. There is a right supra-acetabular stress fracture with bone edema (inversion recovery coronal images 14, 15; proton-density sagittal images 12-14). There is a tear of the right anterosuperior labrum (proton-density sagittal image 15). There is very mild subchondral bone edema of the right femoral head (proton-density sagittal images 14, 15; inversion recovery coronal image 16), a stress phenomenon. There is a small subchondral cyst of the right femoral head (T1 coronal image 17). Normal femoral neck and intratrochanteric region. Normal gluteus minimus, medius and iliopsoas tendons and distal insertions. There is no trochanteric, iliopsoas or iliopectineal bursitis. Normal superior and inferior pubic rami. Normal pubic symphysis. Normal ischial tuberosity. Normal origin of the hamstring tendons. Normal visualized iliac wing, sacroiliac joint, and sacral ala. Normal visualized soft tissue structures of the pelvis. MRI/Lower Ext Joint Only (Routine) IMPRESSION: Right supra-acetabular stress fracture. Very mild subchondral bone edema of the right femoral head, a stress phenomenon. Tear of the right anterosuperior labrum. Electronically Signed: Nate Maxwell MD at 8:33 EST Tel , Service support ,
== END ==
PROVIDERS: PCP Family Medicine; Referring Provider Orthopaedic Surgery; Visit Provider Orthopaedic Surgery
DX: M25.551 Pain in right hip (principal)
CPT/HCPCS: 73721

== ENCOUNTER → 2020-07-30 10:03 | Outpatient (CLI) | payer MEDICARE, SELFPAY ==
[2018-06-21 08:53] VITALS: BMI 38.3
[2020-07-30 09:42] VITALS: BMI 38.0
[2020-07-30 12:37] LABS: Erythrocyte Sedimentation Rate 30 mm/hr (0-30); Hemoglobin A1c 6.1 % (3.8-5.6)
[2020-07-30 12:55] LABS: AST(SGOT) 12 U/L (15-37); Alanine Aminotransfer ALT/SGPT 30 U/L (13-56); Albumin, Serum 3.5 g/dL (3.2-5.0); Alkaline Phosphatase 99 U/L (45-117); Bilirubin, Direct 0.12 mg/dL (0.00-0.30); Cholesterol 144 mg/dL (200); Globulin 3.4 g/dL (2.2-4.2); High Density Lipoprotein 88 mg/dL; Protein, Total 6.9 g/dL (6.4-8.2); Triglycerides 84 mg/dL; Very Low Density Lipoprotein 17 mg/dL (5-40)
== END ==
PROVIDERS: Internal Medicine Cardiovascular Disease; PCP Family Medicine; Visit Provider Family Medicine
DX: E78.00 Pure hypercholesterolemia, unspecified (principal); E78.5 Hyperlipidemia, unspecified; R73.9 Hyperglycemia, unspecified; M35.3 Polymyalgia rheumatica
CPT/HCPCS: 80061; 80076; 83036; 85652

== ENCOUNTER 2020-08-06 14:00 | Observation (INO) | payer MEDICARE, SELFPAY ==
[2018-06-21 08:53] VITALS: BMI 38.3
[2020-07-30 09:42] VITALS: BMI 38.0
[2020-08-06] VITALS (11 sets, daily range): BP systolic 113–169; BP diastolic 60–79; PULSE 81–109; RESP 14–29; TEMP 36.2–36.7; O2SAT 94–99; BMI 36.6; BMI 39.7
--- NOTE | 2020-08-06 14:17 | EKG12_ITS ---
Test Reason : CP Blood Pressure : / mmHG Vent. Rate : 108 BPM Atrial Rate : 108 BPM P-R Int : 144 ms QRS Dur : 070 ms QT Int : 340 ms P-R-T Axes : 030 -06 043 degrees QTc Int : 455 ms Sinus tachycardia Low voltage QRS Borderline ECG Confirmed by HERMINIA KAY, ANGELA ([id number]), purchase request editor MINNA JACKSON ([id number]) on 08/08/2020 8:41:50 AM Referred By: Confirmed By:MEGAN HOPE MD
--- NOTE | 2020-08-06 14:20 | ED.DCSUM_ITS ---
- ER Visit Summary Date of Service: 08/06/20 Chief Complaint: Chest pain History of Present Illness: The patient is a [address] Ramires. She was formally a patient of Dr. Warner. She reports that she has chest pain that began at 1:00 this afternoon while she was at rest. Is a substernal heaviness with radiation to her left arm. There is no associated nausea, vomiting, diaphoresis, or shortness of breath. Reports a 7 out of 10 at worst and 5-10 currently. Is worsened by nothing, but she is unable to move much because she has a right hip fracture and is nonweightbearing. Is relieved by remaining still and aspirin. She reports this is similar to when she has had heart problems in the past. Patient reports that she had a similar episode 5 days ago that lasted approximately 2 hours. She was not seen at that time. She denies any sick contacts. She does wear a mask. No ankle swelling or calf pain. She not on anticoagulants. No personal or family history of DVT. Physical Examination: Vitals: Stable. Afebrile. General: Well-nourished and well-developed. Head: Normocephalic atraumatic. Neck: Supple, no lymphadenopathy. No JVD. Nontender. Cardiovascular: Regular rate and rhythm. No murmurs. Respiratory: No respiratory distress. Clear to auscultation bilaterally. Abdominal: Soft, nontender, nondistended, normal bowel sounds. No guarding, rebound, or peritoneal signs. Back: Nontender. Extremities: Nontender, no edema. Skin: Normal color, no rash. Neurologic: Alert and oriented ?3. Cranial nerves II through XII are intact. Normal strength and sensation. Psych: Normal affect. Test Results: EKG is sinus tach at [address] changes. There is no significant change from May 102018. Troponin is negative. Chem-7 shows a potassium of 3.0 and glucose 122. CBC shows a white count of 13.2. Covid is negative. D-dimer is negative. Clinical Impression(s) from Imaging Studies Chest X-Ray 08/06/20 14:20 IMPRESSION: Normal x-ray examination of the chest. Electronically Signed: Donis Rocha MD at 14:53 EST , Service support , Emergency Department Course and Treatment: Patient took 160 mg of aspirin prior to arrival. She is not given further aspirin here. She refused pain medications and is resting comfortably. Patient was given dose potassium p.o. in the emergency department. Treatment Plan: Patient has a heart score of 6. She will be discussed the hospitalist admitted for further evaluation and treatment. Disposition: Admitted in stable condition. Impression: 1. Chest pain. 2. Heart score 6. 3. Hypokalemia. This note was generated with [employer] dictation software. It may contain incorrect words, spelling, and punctuation that were not noted in review of the chart prior to signing ED Disposition - Plan for ED Patient: Referrals: Mikael Ramires [Primary Care Provider] -
--- NOTE | 2020-08-06 14:20 | RAD_ITS ---
STUDY: X-RAY CHEST REASON FOR EXAM: Female, 70 years old. Cp radiates to left arm. Hx of mi. Started at 1300. Took 2 baby asa TECHNIQUE: Single AP portable view of the chest. COMPARISON: Comparison is made with prior study dated 01/10/2019. FINDINGS: EKG electrodes are seen. The lungs are clear and expanded. There is no demonstrated pleural abnormality. Normal size heart. Normal mediastinum and estelita. Normal visualized pulmonary arteries. Normal visualized aortic arch and descending thoracic aorta. Normal visualized thoracic spine. Normal visualized ribs, clavicles, and shoulders. There is no demonstrated abnormality of the visualized soft tissue structures of the upper abdomen. RAD/Chest 1 View (Portable) IMPRESSION: Normal x-ray examination of the chest. Electronically Signed: Donis Rocha MD at 14:53 EST , Service support ,
[2020-08-06 14:23] LABS: Absolute Lymphocyte Count 2.82 X10^3/uL (0.83-4.51); Absolute Neutrophil Count 9.1 X10^3/uL (2.0-7.7); Basophil# 0.05 X10^3/uL; Basophil% 0.4 % (0-1); Eosinophil# 0.17 X10^3/uL; Eosinophils% 1.3 % (0-5); Hematocrit 42.4 % (37-47); Hemoglobin 13.4 g/dL (12.0-15.0); Lymphocyte # 2.82 X10^3/ul (4.0); Lymphocyte % 21.4 % (19-41); Mean Corp Hgb Conc 31.6 g/dL (32-36); Mean Corpuscular Volume 88.7 fL (81-99); Mean Platelet Vol. 9.6 fl (6.2-12.0); Monocyte# 0.94 X10^3/uL; Monocyte% 7.1 % (0-10); NRBC Flagged by Analyzer 0 % (0-5); Neutrophil % 69.3 % (47-70); Platelet Count 232 K/mm3 (150-450); RBC Distribution Width CV 14.1 % (11.6-14.6); RBC Distribution Width SD 45.5 fl (35.1-43.9); Red Blood Count 4.78 M/mm3 (4.2-5.4); White Blood Count 13.2 K/mm3 (4.4-11.0)
[2020-08-06 14:41] LABS: Anion Gap 5 (5-15); BUN 15 mg/dL (7-18); BUN/Creat Ratio 19.2 RATIO (10-20); Calcium,Total 9.4 mg/dL (8.5-10.1); Chloride 107 mmol/L (98-107); Creatinine, Serum 0.78 mg/dL (0.55-1.02); EST Glomerular Filtration Rate 77 mL/min (>60); Est Glom Filt Rate - Afr Amer 94 mL/min (>60); Glucose 122 mg/dL (74-106); Sodium Level 140 mmol/L (136-145)
[2020-08-06 15:30] LABS: D-Dimer Quantitative (DVT/PE) 0.44 FEU/ug/m (0.27-0.49)
--- NOTE | 2020-08-06 15:58 | PCM.HP.STD ---
Problem List (1) Atypical chest pain Status: Acute (2) Temporal arteritis Status: Chronic (3) UTI (urinary tract infection) Status: Inactive (4) HTN (hypertension) Status: Chronic Qualifiers: Hypertension type: essential hypertension Qualified Code(s): I10 - Essential (primary) hypertension (5) HLD (hyperlipidemia) Status: Chronic Qualifiers: Hyperlipidemia type: unspecified Qualified Code(s): E78.5 - Hyperlipidemia, unspecified (6) Asthma Status: Chronic Qualifiers: Asthma severity: unspecified severity Asthma persistence: unspecified Asthma complication type: unspecified Qualified Code(s): J45.909 - Unspecified asthma, uncomplicated (7) Osteoarthritis of left shoulder Status: Chronic Qualifiers: Osteoarthritis type: unspecified Qualified Code(s): M19.012 - Primary osteoarthritis, left shoulder (8) Stented coronary artery Status: Chronic Comment: STEMI, ALLIE to mid lad (2.5 X 20 Promus Synergy), ALLIE to proximal Diagonal #1 (2.25 X 16 Promus Synergy) per Dr. 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 transplanted heart: andreafski heart Qualified Code(s): I25.10 - Atherosclerotic heart disease of andreafski coronary artery without angina pectoris Comment: STEMI, ALLIE to mid lad (2.5 X 20 Promus Synergy), ALLIE to proximal Diagonal #1 (2.25 X 16 Promus Synergy) per Dr. Warner @ [facility] (10) Acute ST elevation myocardial infarction Status: Chronic (11) GERD (gastroesophageal reflux disease) Status: Chronic Qualifiers: Esophagitis presence: esophagitis presence not specified Qualified Code(s): K21.9 - Gastro-esophageal reflux disease without esophagitis (12) Hypothyroidism Status: Chronic Qualifiers: Hypothyroidism type: unspecified Qualified Code(s): E03.9 - Hypothyroidism, unspecified (13) M?ni?re's disease Status: Chronic Qualifiers: Laterality: unspecified laterality Qualified Code(s): H81.09 - Meniere's disease, unspecified ear (14) Monoclonal gammopathy of unknown significance (MGUS) Status: Chronic History of Present Illness Date of Admission: 08/06/20 Chief Complaint: Chest pain today The patient is a 70 year old F with history of STEMI in May 2018 status post PCI in mid LAD and proximal diagonal branch came to ER with sudden onset of chest heaviness in the midsternal with radiation to left arm. There is no obvious exacerbating or precipitating factor. She denies any associated shortness of breath, palpitation, syncope but she had mild dizziness. No diaphoresis. Chest heaviness got better after 2 baby aspirin when she came to ER about 2 PM. Triage vitals in normal range. Twelve-lead EKG shows sinus tachycardia at 100 bpm, QTC 455 ms, low voltage QRS. No significant change from the previous EKG of April 2019 showed similar low voltage QRS with old anterior infarct. Chest x-ray reported normal. Basic labs shows hypokalemia, K3.0, mild leukocytosis 13.2 thousand but she has leukocytosis 14.3 thousand in December 2018. She has a history of giant cell arteritis, MGUS. [] Past Medical History Past Medical History (Chronic Problems): Chronic Problems (Last Reviewed 06/06/19 @ 16:03 by Liana Guadalupe) Monoclonal gammopathy of unknown significance (MGUS) (Chronic) Temporal arteritis (Chronic) HTN (hypertension) (Chronic) HLD (hyperlipidemia) (Chronic) Asthma (Chronic) Osteoarthritis of left shoulder (Chronic) Stented coronary artery (Chronic 06/20/18) STEMI, ALLIE to mid lad (2.5 X 20 Prom[employer] Synergy), ALLIE to proximal Diagonal #1 (2.25 X 16 Promus Synergy) per Dr. Warner @ [facility] Atherosclerotic heart disease of andreafski coronary artery without angina pectoris (Chronic) STEMI, ALLIE to mid lad (2.5 X 20 Promus Synergy), ALLIE to proximal Diagonal #1 (2.25 X 16 Promus Synergy) per Dr. Warner @ [facility] Acute ST elevation myocardial infarction (Chronic) GERD (gastroesophageal reflux disease) (Chronic) Hypothyroidism (Chronic) M?ni?re's disease (Chronic) Medical History: Medical History (Last Reviewed 06/06/19 @ 16:03 by Liana Guadalupe) Temporal arteritis (Chronic) M31.6 HTN (hypertension) (Chronic) I10 HLD (hyperlipidemia) (Chronic) E78.5 Asthma (Chronic) J45.909 Atherosclerotic heart disease of andreafski coronary artery without angina pectoris (Chronic) I25.10 STEMI, ALLIE to mid lad (2.5 X 20 Promus Synergy), ALLIE to proximal Diagonal #1 (2.25 X 16 Promus Bevvy) per Dr. 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 Retinal tear of left eye H33.312 SOB (shortness of breath) R06.02 Thyroid disease E07.9 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 Vitamin D deficiency E55.9 Allergies clarithromycin [From Biaxin] Allergy (Verified 08/06/20 14:04) Rash sulfamethoxazole [From Bactrim] Allergy (Verified 08/06/20 14:04) Rash trimethoprim [From Bactrim] Allergy (Verified 08/06/20 14:04) Rash carvedilol [From Coreg] Adverse Reaction (Intermediate, Verified 08/06/20 14:04) Nausea, Lightheaded codeine Adverse Reaction (Verified 08/06/20 14:04) Upset Stomach lisinopril Adverse Reaction (Verified 08/06/20 14:04) cough Penicillins Adverse Reaction (Verified 08/06/20 14:04) Other Home Medications: Ambulatory Orders Medication Instructions Recorded Levothyroxine [Synthroid] 50 mcg PO DAILY 12/31/16 metronidazole 0.75 % topical cream 1 applicatio TOPICAL DAILY 68 Days 07/03/18 #135 g Omeprazole 40 mg PO DAILY 08/09/18 albuterol sulfate 90 mcg/actuation 2 puff INHALATION DAILY PRN 11/16/18 aerosol inhaler cholecalciferol (vitamin D3) 50 100 mcg PO DAILY 03/25/20 mcg (2,000 unit) capsule losartan 25 mg tablet 25 mg PO QAM tab 03/25/20 potassium chloride 20 mEq 10 meq PO DAILY tab 03/25/20 tablet,extended release(part/cryst) diltiazem HCl 120 mg 120 mg PO DAILY #90 cap 05/28/20 capsule,extended release 24 hr flaxseed oil 1,000 mg capsule 1,000 mg PO DAILY 07/03/20 atorvastatin 80 mg tablet 80 mg PO QHS #90 tab 07/18/20 nystatin 100,000 unit/gram topical 1 applic TOPICAL TID #15 g 07/30/20 powder Acetaminophen [Tylenol Extra 500 - 1,000 mg PO DAILY PRN PRN 08/06/20 Strength] Aspirin E.C. [Ecotrin] 81 mg PO DAILY@199908/06/20 Clopidogrel Bisulfate [Clopidogrel] 75 mg PO DAILY 08/06/20 Hydrochlorothiazide [Hctz] 12.5 mg PO DAILY 08/06/20 Prednisone 5 mg PO DAILY 08/06/20 Propylene Glycol/Peg 400 [Systane 1 drp EACH EYE BID 08/06/20 0.3-0.4% Eye Drops] Surgical History: Surgical History (Last Reviewed 06/06/19 @ 16:03 by Liana Guadalupe) Stented coronary artery (Chronic) Onset Date: 06/20/18 Z95.5 STEMI, ALLIE to mid lad (2.5 X 20 Promus Synergy), ALLIE to proximal Diagonal #1 (2.25 X 16 Promus Synergy) per Dr. Warner @ [facility] History of temporal artery biopsy Onset Date: ~12/2018 Z98.890 negative History of delivery Z98.891 History of dilatation and curettage Z98.890 Hx of breast biopsy Z98.890 Hx of tonsillectomy Z98.890, Z90.89 Surgical History: tonsillectomy, - - section, D+C, Breast Bx, T+A, PCI x 2. Psychiatric History: No pertinent psych hx GENERAL MEDICAL PRACTITIONER History: No pertinent GENERAL MEDICAL PRACTITIONER history Smoking Status: Never smoker - *Family History Maternal Family History: Family History (Last Reviewed 06/06/19 @ 16:03 by Liana Guadalupe) Mother Cancer Anemia Father Cancer Heart disease History Items: - Paternal Family History: Family History (Last Reviewed 06/06/19 @ 16:03 by Liana Guadalupe) Mother Cancer Anemia Father Cancer Heart disease History Items: - Review of Systems Constitutional: Denies: Chills, Fever, Weight Change HEENT: Denies: Head Aches, Sinus Congestion, Sinus Drainage Cardiovascular: Reports: Chest Pain, Chest Pressure. Denies: Palpitations Respiratory: Denies: Cough, Shortness of breath at rest, Sputum production Gastrointestinal: Denies: Abdominal Pain, Nausea, Vomiting Genitourinary: Denies: Dysuria, Frequency, Hesitancy, Retention, Urgency Musculoskeletal: Reports: - - Left wrist splint for mild arthritis. Mild bruise on the right lower leg after she had fall in February 2020.. Denies: Joint Pain, Joint Tenderness Skin: Denies: Rash, Wounds Neurological: Reports: Balance problems, Incoordination. Denies: Focal weakness, Numbness, Tingling Psychiatric: Denies: Anxiety, Depression, Homicidal Ideations, Suicidal Ideations Hematologic/ Lymphatic: Denies: Easy Bruising, Easy Bleeding VTE Information - Inpt Only VTE Present on Admission: No VTE Mechan Device Prophylaxis: None VTE Pharm Prophylaxis ordered?: Yes Objective: Physical exam General: Alert, Oriented x3, Cooperative HEENT: Atraumatic, PERRLA, EOMI, Normocephalic Oral: No Gingival or Mucosal Lesions/ Ulcerations Neck: Supple, No JVD, Negative Carotid Bruits Lungs: Air entry diminished in bilateral lung bases. No crepitation/rhonchi Cardiovascular: Regular rate, Regular Rhythm, Normal S1, Normal S2, No murmurs Abdomen: Bowel Sounds Present, Soft, Non Tender, Non-Distended : No renal angle tenderness. No suprapubic tenderness. Extremities: Mild bilateral ankle edema, Capillary Refill Less than 3 Seconds Skin: Mild resolving bruise on the right ankle. Years left wrist splint after fall in February 2020. No ulcer. Musculoskeletal: No Tenderness to Palpation of Joints or Extremities Neurological: Cranial nerves II-XII grossly intact, Deep Tendon Reflexes 2+/4 and Symmetrical, Neuro grossly intact Psych/Mental Status: Normal Affect, Appropriate. - Physical Exam Vitals/I&O's: Vital Signs Temp Pulse Resp BP Pulse Ox 97.2 F L 94 18 147/67 H 96 08/06/20 14:01 08/06/20 15:00 08/06/20 15:00 08/06/20 15:00 08/06/20 15:00 Oxygen Delivery Method Room Air Weight: 206 lb 12.697 oz Body Mass Index (BMI) 36.6 Microbiology Past 72 Hours 08/06/20 14:17 Mucosa - Nose SARS-CoV-2 Antigen (Rapid) - Final Laboratory Results 08/06/20 14:13: WBC 13.2 H, RBC 4.78, Hgb 13.4, Hct 42.4, MCV 88.7, MCH 28.0, MCHC 31.6 L, RDW Std Deviation 45.5 H, RDW Coeff of Agnieszka 14.1, Plt Count 232, MPV 9.6, Immature Gran % (Auto) 0.500, Neut % (Auto) 69.3, Lymph % (Auto) 21.4, Story % (Auto) 7.1, Eos % (Auto) 1.3, Baso % (Auto) 0.4, Absolute Neuts (auto) 9.1 H, Absolute Lymphs (auto) 2.82, Nucleated RBC % 0 08/06/20 14:13: D-Dimer Quant (PE/DVT) Cancelled 08/06/20 14:13: Sodium 140, Potassium 3.0 L, Chloride 107, Carbon Dioxide 28.0, Anion Gap 5, BUN 15, Creatinine 0.78, Estim Creat Clear Calc 43.30, Est GFR (MDRD) Af Amer 94, Est GFR (MDRD) Non-Af 77, BUN/Creatinine Ratio 19.2, Glucose 122 H, Calcium 9.4, Troponin I < 0.015 08/06/20 14:34: D-Dimer Quant (PE/DVT) 0.44 Assessment/Plan All Active Problems (Last Reviewed 06/06/19 @ 16:03 by Liana Guadalupe) Atypical chest pain (Acute) 70-year-old with history of STEMI on 2017 is admitted for atypical chest pain. 1. Atypical chest pain: Patient is being admitted to PCU. Cycle cardiac enzymes. Repeat EKG. Pharmacological nuclear stress test tomorrow a.m. 2. Coronary artery status post STEMI in 05/2018: Continue patient's home cardiac medications aspirin, Plavix, losartan, diltiazem and atorvastatin. Patient is allergic to carvedilol. 3. Hypothyroidism: On levothyroxine 50 mcg daily. We will check TSH tomorrow a.m. 4. M?ni?re's disease: Stable. On HCTZ. 5. Bronchial asthma: No wheezing or shortness of breath. Stable 6. Giant cell arteritis/MGUS: Increased risks for coronary artery disease/unstable angina. Patient on prednisone 5 mg daily. On omeprazole 40 mg daily for history of GERD and on chronic steroid therapy. 7. VT prophylaxis: Lovenox 40 mg subcu daily. OBSV E&M: 91181 Initial observation care L3
--- NOTE | 2020-08-06 16:52 | EKG12_ITS ---
Test Reason : Blood Pressure : / mmHG Vent. Rate : 095 BPM Atrial Rate : 095 BPM P-R Int : 144 ms QRS Dur : 064 ms QT Int : 356 ms P-R-T Axes : 037 -04 025 degrees QTc Int : 447 ms Normal sinus rhythm Low voltage QRS Inferior infarct , age undetermined Abnormal ECG Confirmed by EUGENIO KAY, NELLI ([id number]), continuity editor MINNA JACKSON ([id number]) on 08/12/2020 11:01:43 AM Referred By: ADRIANA Confirmed By:NELLI BECKER MD
[2020-08-06 17:39] LABS: Phosphorus 2.9 mg/dL (2.5-4.9)
[2020-08-06] MEDS: 0.9% Normal Saline 1,000 ML 75 ML IV (17:41)
[2020-08-06] MEDS: 0.9% Saline Lock 10 ML Syringe IV (17:42)
[2020-08-06] MEDS: Enoxaparin 40 MG/0.4 ML Syringe SC (17:42)
[2020-08-06] MEDS: Glycerin/Hypromellose/PEG400 15 ml Bottle 1 DRP EACH EYE (21:05)
[2020-08-06] MEDS: Atorvastatin Calcium 80 MG Tablet PO (21:05)
[2020-08-07 03:00] VITALS: PULSE 73
[2020-08-07 03:30] VITALS: BP 106/56; PULSE 77; RESP 20; TEMP 36.5; O2SAT 94
--- NOTE | 2020-08-07 05:00 | EKG12_ITS ---
Test Reason : AM Blood Pressure : / mmHG Vent. Rate : 072 BPM Atrial Rate : 072 BPM P-R Int : 180 ms QRS Dur : 068 ms QT Int : 394 ms P-R-T Axes : 031 005 040 degrees QTc Int : 431 ms Normal sinus rhythm Normal ECG When compared with ECG of 06-AUG-2020 14:03, MANUAL COMPARISON REQUIRED, DATA IS UNCONFIRMED Confirmed by HERMINIA KAY, ANGELA ([id number]), news editor MINNA JACKSON ([id number]) on 08/08/2020 8:50:13 AM Referred By: DEBBIE Confirmed By:MEGAN HOPE MD
[2020-08-07 05:05] LABS: Absolute Lymphocyte Count 2.39 X10^3/uL (0.83-4.51); Absolute Neutrophil Count 5.4 X10^3/uL (2.0-7.7); Basophil# 0.04 X10^3/uL; Basophil% 0.5 % (0-1); Eosinophil# 0.11 X10^3/uL; Eosinophils% 1.3 % (0-5); Hematocrit 36.5 % (37-47); Lymphocyte # 2.39 X10^3/ul (4.0); Lymphocyte % 27.6 % (19-41); Mean Corp Hgb Conc 30.1 g/dL (32-36); Mean Corpuscular Hgb 27.8 pg (27.0-32.0); Mean Corpuscular Volume 92.2 fL (81-99); Mean Platelet Vol. 9.8 fl (6.2-12.0); Monocyte# 0.67 X10^3/uL; Monocyte% 7.7 % (0-10); NRBC Flagged by Analyzer 0 % (0-5); Neutrophil # 5.41 X10^3/uL (2.7-7.7); Neutrophil % 62.6 % (47-70); Platelet Count 179 K/mm3 (150-450); RBC Distribution Width CV 14.2 % (11.6-14.6); RBC Distribution Width SD 48.2 fl (35.1-43.9); Red Blood Count 3.96 M/mm3 (4.2-5.4); White Blood Count 8.7 K/mm3 (4.4-11.0)
[2020-08-07 05:41] LABS: Anion Gap 6 (5-15); BUN 16 mg/dL (7-18); BUN/Creat Ratio 25.5 RATIO (10-20); Calcium,Total 8.3 mg/dL (8.5-10.1); Chloride 110 mmol/L (98-107); Cholesterol 122 mg/dL (200); Creatinine, Serum 0.63 mg/dL (0.55-1.02); EST Glomerular Filtration Rate 100 mL/min (>60); Est Glom Filt Rate - Afr Amer 121 mL/min (>60); Glucose 123 mg/dL (74-106); High Density Lipoprotein 67 mg/dL; Potassium 3.9 mmol/L (3.5-5.1); Sodium Level 142 mmol/L (136-145); Thyroid Stim Hormone (TSH) 1.26 uIU/mL (0.358-3.74); Triglycerides 86 mg/dL; Very Low Density Lipoprotein 17 mg/dL (5-40)
[2020-08-07 06:25] VITALS: BP 120/62; PULSE 72; RESP 18; TEMP 36.7; O2SAT 93
[2020-08-07] MEDS: Levothyroxine 50 MCG Tablet PO (06:26)
[2020-08-07] MEDS: Clopidogrel Bisulfate 75 MG Tablet PO (06:26)
[2020-08-07] MEDS: Losartan Potassium 25 MG Tablet PO (06:26)
[2020-08-07] MEDS: Aspirin E.C. 81 MG Tablet PO (06:26)
[2020-08-07 07:01] VITALS: PULSE 72
--- NOTE | 2020-08-07 07:22 | PCS.PANDOC ---
PANDEMIC DOCUMENTATION INITIATED: Date: 08/06/20 Time: 4175
[2020-08-07 09:14] VITALS: O2SAT 93
--- NOTE | 2020-08-07 11:28 | PCM.DC ---
- Discharge Diagnoses Current Active Problems: Current Active and Chronic Problems (Last Reviewed 06/06/19 @ 16:03 by Liana Guadalupe) Atypical chest pain (Acute) Monoclonal gammopathy of unknown significance (MGUS) (Chronic) Temporal arteritis (Chronic) HTN (hypertension) (Chronic) HLD (hyperlipidemia) (Chronic) Asthma (Chronic) Osteoarthritis of left shoulder (Chronic) Stented coronary artery (Chronic 06/20/18) STEMI, ALLIE to mid lad (2.5 X 20 [employer] Synergy), ALLIE to proximal Diagonal #1 (2.25 X 16 Prom[employer] Synergy) per Dr. Warner @ [facility] Atherosclerotic heart disease of [place] coronary artery without angina pectoris (Chronic) STEMI, ALLIE to mid lad (2.5 X 20 [employer]), ALLIE to proximal Diagonal #1 (2.25 X 16 [employer]) per Dr. Warner @ [facility] Acute ST elevation myocardial infarction (Chronic) GERD (gastroesophageal reflux disease) (Chronic) Hypothyroidism (Chronic) M?ni?re's disease (Chronic) You will use the following diet at home:: Cardiac Discharge Activity: Return to Normal Activity Call your doctor if you observe: Shortness of breath, Dizziness, Fainting spells, Chest pain Allergies/Adverse Reactions: Allergies clarithromycin [From Biaxin] Allergy (Verified 08/06/20 14:04) Rash sulfamethoxazole [From Bactrim] Allergy (Verified 08/06/20 14:04) Rash trimethoprim [From Bactrim] Allergy (Verified 08/06/20 14:04) Rash carvedilol [From Coreg] Adverse Reaction (Intermediate, Verified 08/06/20 14:04) Nausea, Lightheaded codeine Adverse Reaction (Verified 08/06/20 14:04) Upset Stomach lisinopril Adverse Reaction (Verified 08/06/20 14:04) cough Penicillins Adverse Reaction (Verified 08/06/20 14:04) Other Medications to take at Discharge Levothyroxine [Synthroid] 50 mcg PO DAILY 12/31/16 metronidazole 0.75 % topical cream 1 applicatio TOPICAL DAILY 68 Days #135 g 07/03/18 Omeprazole 40 mg PO DAILY 08/09/18 albuterol sulfate 90 mcg/actuation aerosol inhaler 2 puff INHALATION DAILY PRN 11/16/18 cholecalciferol (vitamin D3) 50 mcg (2,000 unit) capsule 100 mcg PO DAILY 03/25/20 losartan 25 mg tablet 25 mg PO QAM tab 03/25/20 potassium chloride 20 mEq tablet,extended release(part/cryst) 10 meq PO DAILY tab 03/25/20 diltiazem HCl 120 mg capsule,extended release 24 hr 120 mg PO DAILY #90 cap 05/28/20 flaxseed oil 1,000 mg capsule 1,000 mg PO DAILY 07/03/20 atorvastatin 80 mg tablet 80 mg PO QHS #90 tab 07/18/20 nystatin 100,000 unit/gram topical powder 1 applic TOPICAL TID #15 g 07/30/20 Acetaminophen [Tylenol] 500 - 1,000 mg PO DAILY PRN PRN 08/06/20 Aspirin E.C. [Ecotrin] 81 mg PO DAILY@199908/06/20 Clopidogrel Bisulfate [Clopidogrel] 75 mg PO DAILY 08/06/20 Hydrochlorothiazide [Hctz] 12.5 mg PO DAILY 08/06/20 Prednisone 5 mg PO DAILY 08/06/20 Propylene Glycol/Peg 400 [Systane 0.3-0.4% Eye Drops] 1 drp EACH EYE BID 08/06/20 Primary Care Physician: Mikael Ramires [Primary Care Provider] - Please follow up with your Primary Care Physician in: 1 Week Test Results: Test results from this visit will be discussed in further detail at your follow-up appointment, if applicable. Please Follow Up With: Artur Kingston NP, [employer] When: As scheduled Proposed Discharge Date: 08/07/20
--- NOTE | 2020-08-07 11:40 | PHA.DC.MR ---
Pharmacy Service has performed discharge medication reconciliation for this patient. No new medications at time of discharge. Medications reviewed are from previously reported home medications. Home Medications Levothyroxine [Synthroid] 50 mcg PO DAILY 12/31/16 metronidazole 0.75 % topical cream 1 applicatio TOPICAL DAILY 68 Days #135 g 07/03/18 Omeprazole 40 mg PO DAILY 08/09/18 albuterol sulfate 90 mcg/actuation aerosol inhaler 2 puff INHALATION DAILY PRN 11/16/18 cholecalciferol (vitamin D3) 50 mcg (2,000 unit) capsule 100 mcg PO DAILY 03/25/20 losartan 25 mg tablet 25 mg PO QAM tab 03/25/20 potassium chloride 20 mEq tablet,extended release(part/cryst) 10 meq PO DAILY tab 03/25/20 diltiazem HCl 120 mg capsule,extended release 24 hr 120 mg PO DAILY #90 cap 05/28/20 flaxseed oil 1,000 mg capsule 1,000 mg PO DAILY 07/03/20 atorvastatin 80 mg tablet 80 mg PO QHS #90 tab 07/18/20 nystatin 100,000 unit/gram topical powder 1 applic TOPICAL TID #15 g 07/30/20 Acetaminophen [Tylenol Extra Strength] 500 - 1,000 mg PO DAILY PRN PRN 08/06/20 Aspirin E.C. [Ecotrin] 81 mg PO DAILY@199908/06/20 Clopidogrel Bisulfate [Clopidogrel] 75 mg PO DAILY 08/06/20 Hydrochlorothiazide [Hctz] 12.5 mg PO DAILY 08/06/20 Prednisone 5 mg PO DAILY 08/06/20 Propylene Glycol/Peg 400 [Systane 0.3-0.4% Eye Drops] 1 drp EACH EYE BID 08/06/20 The patient's discharge medication list was reviewed for discrepancies and discrepancies were resolved.
[2020-08-07 11:50] VITALS: BP 122/48; PULSE 77; RESP 18; TEMP 36.6; O2SAT 94
[2020-08-07] MEDS: Glycerin/Hypromellose/PEG400 15 ml Bottle 1 DRP EACH EYE (11:52)
[2020-08-07] MEDS: dilTIAZem CD 120 MG Capsule PO (11:52)
[2020-08-07] MEDS: predniSONE 5 MG Tablet PO (11:52)
[2020-08-07] MEDS: Pantoprazole Sodium 40 MG Tablet PO (11:52)
[2020-08-07] MEDS: hydroCHLOROthiazide 12.5mg 12.5 MG PO (11:53)
--- NOTE | 2020-08-07 12:46 | STRESSREP ---
Stress Test Report Date: 08/07/2020 Procedure: Pharmacologic stress nuclear imaging study Indications: Chest pain Consent: Per the patient Procedure: The patient underwent pharmacologic (Regadenoson) evaluation with a peak heart rate of 98 beats per minute (65% predicted maximal heart rate) and a peak blood pressure of 130/62 mmHg. The baseline ECG demonstrated normal sinus rhythm. EKG during lexiscan infusion revealed no significant ischemic changes. EKG post infusion revealed no significant ischemic changes [There were no cardiac dysrhythmias pretest, during pharmacologic infusion, or recovery]. [There was no complaint of chest discomfort during pharmacologic infusion or recovery]. The examination was discontinued secondary to completion of protocol. Impression: 1. Lexiscan stress test test is negative for Lexiscan infusion induced EKG changes of ischemia. 2. Lexiscan stress test test is negative for Lexiscan infusion induced chest pain. 3. Results of the nuclear portion of the test is as below Myocardial perfusion imaging study: Technique: The patient was injected with 11.9 millicuries of technetium 99m Cardiolite and subsequently rest SPECT Cardiolite nuclear imaging was obtained in the horizontal long, vertical long, and short axis views. The patient underwent pharmacologic evaluation. Please see above for details. The patient was injected with 44.5 millicuries of technetium 99m Cardiolite and subsequently stress SPECT Cardiolite nuclear imaging was obtained in the horizontal long, vertical long, and short axis views. A gated Cardiolite study at peak stress was obtained. Interpretation: Rest and stress SPECT Cardiolite nuclear imaging status post realignment, normalization, and attenuation correction demonstrate no significant fixed or reversible defects suggestive of significant ischemia or infarction. Gated images reveal no significant regional wall motion abnormalities-. The reported LVEF is greater than 70%. Impression: 1. There is no evidence of significant ischemia or infarction. 2. Estimated ejection fraction is greater than 70%. This note was generated with Panjoation software. It may contain incorrect words, spelling, and punctuation that were not noted in checking the note before signing.
--- NOTE | 2020-08-07 13:24 | PCM.DC.SUM ---
<Lata Gaytan [employer] - Last Filed: 08/07/20 13:43> Discharge Date and Diagnosis - Problem List Patient Problems: Active and Suspected Problems (Last Reviewed 06/06/19 @ 16:03 by Liana Guadalupe) Atypical chest pain (Acute) Date of Admission: 08/06/20 Date of Discharge: 08/07/20 - Primary Discharge Diagnosis Acute Problems: Active Problems (Last Reviewed 06/06/19 @ 16:03 by Liana Guadalupe) 1. Musculoskeletal chest pain, ACS ruled out 2. CAD with history of STEMI/PCI 3. Hypothyroidism 4. M?ni?re's disease 5. Bronchial asthma 6. Giant cell arteritis/MGUS 7. Hypertension 8. Hyperlipidemia 9. Obesity - Secondary Discharge Diagnosis Chronic Problems: Chronic Problems (Last Reviewed 06/06/19 @ 16:03 by Liana Guadalupe) Monoclonal gammopathy of unknown significance (MGUS) (Chronic) Temporal arteritis (Chronic) HTN (hypertension) (Chronic) HLD (hyperlipidemia) (Chronic) Asthma (Chronic) Osteoarthritis of left shoulder (Chronic) Stented coronary artery (Chronic 06/20/18) STEMI, ALLIE to mid lad (2.5 X 20 Promus Synergy), ALLIE to proximal Diagonal #1 (2.25 X 16 Promus Synergy) per Dr. Warner @ [facility] Atherosclerotic heart disease of [place] coronary artery without angina pectoris (Chronic) STEMI, ALLIE to mid lad (2.5 X 20 Promus Synergy), ALLIE to proximal Diagonal #1 (2.25 X 16 Promus Synergy) per Dr. Warner @ [facility] Acute ST elevation myocardial infarction (Chronic) GERD (gastroesophageal reflux disease) (Chronic) Hypothyroidism (Chronic) M?ni?re's disease (Chronic) Hospital Course and Treatment Imaging Results: Diagnostic Data Chest X-Ray 08/06/20 14:20 IMPRESSION: Normal x-ray examination of the chest. Electronically Signed: Donis Rocha MD at 14:53 EST , Service support , Operations: None Procedures: Stress test Summary of Care Provided: The patient is a 70 year old F admitted 08/06/20 due to chest pain. 1. Musculoskeletal chest pain, ACS ruled out-troponin negative. EKG without ST-T changes. Patient underwent nuclear stress test which was negative for ischemia, ejection fraction greater than 70%. Patient has been temporarily wheelchair-bound secondary to closed nondisplaced fracture of the right acetabulum-following outpatient with Ortho. She states recently she was trying to push herself with a wheelchair and feels she might of pulled something in her chest/left arm. Follow-up with PCP in 1 week. Follow-up with cardiology as scheduled. 2. CAD with history of STEMI/PCI-on aspirin, statin, Plavix, losartan. 3. Hypothyroidism-continue Synthroid. 4. M?ni?re's disease- on HCTZ. 5. Bronchial asthma-no exacerbation. 6. Giant cell arteritis/MGUS-following with oncology 7. Hypertension-stable, continue 8. Hyperlipidemia-continue statin. 9. Obesity-encouraged diet and lifestyle modifications. Patient seen and examined prior to discharge. Physical assessment as noted below. Patient is stable for discharge with follow up recommendations as noted above. This patient was seen by GORDY Gallegos under the supervision of Dr. Harris. Patient Problems: Active and Suspected Problems (Last Reviewed 06/06/19 @ 16:03 by Liana Guadalupe) Atypical chest pain (Acute) - Physical Exam Vitals/I&O's: Vital Signs Temp Pulse Resp BP Pulse Ox 97.8 F 77 18 122/48 H 94 08/07/20 11:50 08/07/20 11:50 08/07/20 11:50 08/07/20 11:50 08/07/20 11:50 Oxygen Delivery Method Room Air Weight: 203 lb 14.841 oz Body Mass Index (BMI) 39.7 Intake and Output for Last 24 Hours 08/05/20 08/06/20 08/07/20 23:59 23:59 23:59 Intake Total 480 / 480 1262.5 / 1262.5 Output Total 550 / 550 425 / 425 Balance -70 / -70 837.5 / 837.5 General: Alert, Oriented x3, Cooperative HEENT: Atraumatic, PERRLA, EOMI, Normocephalic Neck: Supple, No JVD, Negative Carotid Bruits Lungs: Clear to auscultation, Normal air movement Cardiovascular: Regular rate, No murmurs Abdomen: Bowel Sounds Present, Soft, Non Tender, Non-Distended Extremities: No clubbing, No cyanosis, No edema, Capillary Refill Less than 3 Seconds Skin: No rashes, No breakdown Musculoskeletal: No Tenderness to Palpation of Joints or Extremities Neurological: Cranial nerves II-XII grossly intact, Neuro grossly intact Psych/Mental Status: Normal Affect, Appropriate Microbiology Past 72 Hours 08/06/20 14:17 Mucosa - Nose SARS-CoV-2 Antigen (Rapid) - Final Laboratory Results 08/06/20 14:13: WBC 13.2 H, RBC 4.78, Hgb 13.4, Hct 42.4, MCV 88.7, MCH 28.0, MCHC 31.6 L, RDW Std Deviation 45.5 H, RDW Coeff of Agnieszka 14.1, Plt Count 232, MPV 9.6, Immature Gran % (Auto) 0.500, Neut % (Auto) 69.3, Lymph % (Auto) 21.4, Cannon % (Auto) 7.1, Eos % (Auto) 1.3, Baso % (Auto) 0.4, Absolute Neuts (auto) 9.1 H, Absolute Lymphs (auto) 2.82, Nucleated RBC % 0 08/06/20 14:13: D-Dimer Quant (PE/DVT) Cancelled 08/06/20 14:13: Sodium 140, Potassium 3.0 L, Chloride 107, Carbon Dioxide 28.0, Anion Gap 5, BUN 15, Creatinine 0.78, Estim Creat Clear Calc 43.30, Est GFR (MDRD) Af Amer 94, Est GFR (MDRD) Non-Af 77, BUN/Creatinine Ratio 19.2, Glucose 122 H, Calcium 9.4, Troponin I < 0.015 08/06/20 14:34: D-Dimer Quant (PE/DVT) 0.44 08/06/20 16:55: Troponin I < 0.015 08/06/20 16:55: Phosphorus 2.9, Magnesium 2.0 08/06/20 20:29: Troponin I < 0.015 08/07/20 04:48: WBC 8.7, RBC 3.96 L, Hgb 11.0 L, Hct 36.5 L, MCV 92.2, MCH 27.8, MCHC 30.1 L, RDW Std Deviation 48.2 H, RDW Coeff of Agnieszka 14.2, Plt Count 179, MPV 9.8, Immature Gran % (Auto) 0.300, Neut % (Auto) 62.6, Lymph % (Auto) 27.6, Cannon % (Auto) 7.7, Eos % (Auto) 1.3, Baso % (Auto) 0.5, Absolute Neuts (auto) 5.4, Absolute Lymphs (auto) 2.39, Nucleated RBC % 0 08/07/20 04:48: Sodium 142, Potassium 3.9, Chloride 110 H, Carbon Dioxide 26.0, Anion Gap 6, BUN 16, Creatinine 0.63, Estim Creat Clear Calc 37.60, Est GFR (MDRD) Af Amer 121, Est GFR (MDRD) Non-Af 100, BUN/Creatinine Ratio 25.5 H, Glucose 123 H, Calcium 8.3 L, Triglycerides 86, Cholesterol 122, LDL Cholesterol 38, VLDL Cholesterol 17, HDL Cholesterol 67, TSH 1.26 Current Medications Acetaminophen (Acetaminophen 325 Mg Tablet) 650 mg PO Q6H PRN PRN PRN Reason: Pain Score 1-10/Temp > 100.7 F Albuterol Sulfate (Albuterol 2.5 Mg/3 Ml Vial.Neb.) 2.5 mg INHALATION DAILY PRN PRN Reason: Asthma Aspirin (Aspirin E.C. 81 Mg Tablet) 81 mg PO DAILY@0800 [facility] Last Admin: 08/07/20 06:26 Dose: 81 mg Documented by: Atorvastatin Calcium (Atorvastatin Calcium 80 Mg Tablet) 80 mg PO QHS [facility] Last Admin: 08/06/20 21:05 Dose: 80 mg Documented by: Clopidogrel Bisulfate (Clopidogrel Bisulfate 75 Mg Tablet) 75 mg PO DAILY [facility] Last Admin: 08/07/20 06:26 Dose: 75 mg Documented by: Diltiazem HCl (Diltiazem Cd 120 Mg Capsule) 120 mg PO DAILY [facility] Last Admin: 08/07/20 11:52 Dose: 120 mg Documented by: Enoxaparin Sodium (Enoxaparin 40 Mg/0.4 Ml Syringe) 40 mg SC DAILY [facility] Last Admin: 08/06/20 17:42 Dose: 40 mg Documented by: Hydrochlorothiazide (Hydrochlorothiazide 12.5mg) 12.5 mg PO DAILY [facility] Last Admin: 08/07/20 11:53 Dose: 12.5 mg Documented by: Levothyroxine Sodium (Levothyroxine 50 Mcg Tablet) 50 mcg PO DAILY@0600 [facility] Last Admin: 08/07/20 06:26 Dose: 50 mcg Documented by: Losartan Potassium (Losartan Potassium 25 Mg Tablet) 25 mg PO QAM [facility] Last Admin: 08/07/20 06:26 Dose: 25 mg Documented by: Morphine Sulfate (Morphine 2 Mg/Ml Syringe) 2 mg IV Q3H PRN PRN PRN Reason: Pain Score 6-10 Nitroglycerin (Nitroglycerin (Inpatient Use) 0.4 Mg Tab.Subl) 0.4 mg SUBLINGUAL Q5M PRN PRN Reason: CARDIAC/CHEST PAIN Pantoprazole Sodium (Pantoprazole Sodium 40 Mg Tablet) 40 mg PO DAILY [facility] Last Admin: 08/07/20 11:52 Dose: 40 mg Documented by: Potassium Chloride (Potassium Ch[facility] 20 Meq [facility]t) [facility] Admin: 08/07/20 11:52 Dose: 40 meq Documented by: Prednisone (Pred[facility] 5 Mg Tablet) [facility] Last Admin: 08/07/20 11:52 Dose: 5 mg Documented by: Prochlorperazine Edisylate (Prochlorperazine 10 Mg/2 Ml Vial) 5 mg IV Q4H PRN PRN PRN Reason: Breakthrough Nausea/Vomiting Senna/Docusate Sodium (Senna/Docusate Sodium 1 Tablet) 2 tablet PO BID PRN PRN PRN Reason: Constipation Sodium Chloride (0.9% Saline Lock 10 Ml Syringe) 10 - 40 ml IV UD PRN PRN Reason: SALINE FLUSH Last Admin: 08/06/20 17:42 Dose: 10 ml Documented by: Discharge Diet: Low fat/ Low Cholesterol Discharge Activity: Return to Normal Activity Call your doctor if you observe: Shortness of breath, Dizziness, Fainting spells, Chest pain Home Medications: Medications to take at Discharge Levothyroxine [Synthroid] 50 mcg PO DAILY 12/31/16 metronidazole 0.75 % topical cream 1 applicatio TOPICAL DAILY 68 Days #135 g 07/03/18 Omeprazole 40 mg PO DAILY 08/09/18 albuterol sulfate 90 mcg/actuation aerosol inhaler 2 puff INHALATION DAILY PRN 11/16/18 cholecalciferol (vitamin D3) 50 mcg (2,000 unit) capsule 100 mcg PO DAILY 03/25/20 losartan 25 mg tablet 25 mg PO QAM tab 03/25/20 potassium chloride 20 mEq tablet,extended release(part/cryst) 10 meq PO DAILY tab 03/25/20 diltiazem HCl 120 mg capsule,extended release 24 hr 120 mg PO DAILY #90 cap 05/28/20 flaxseed oil 1,000 mg capsule 1,000 mg PO DAILY 07/03/20 atorvastatin 80 mg tablet 80 mg PO QHS #90 tab 07/18/20 nystatin 100,000 unit/gram topical powder 1 applic TOPICAL TID #15 g 07/30/20 Acetaminophen [Tylenol] 500 - 1,000 mg PO DAILY PRN PRN 08/06/20 Aspirin E.C. [Ecotrin] 81 mg PO DAILY@199908/06/20 Clopidogrel Bisulfate [Clopidogrel] 75 mg PO DAILY 08/06/20 Hydrochlorothiazide [Hctz] 12.5 mg PO DAILY 08/06/20 Prednisone 5 mg PO DAILY 08/06/20 Propylene Glycol/Peg 400 [Systane 0.3-0.4% Eye Drops] 1 drp EACH EYE BID 08/06/20 Primary Care Physician: Mikael Ramires [Primary Care Provider] - Please follow up with your Primary Care Physician in: 1 Week Please Follow Up With: Artur Kingston [employer], [employer] When: As scheduled Disposition: Home Minutes spent on discharge:: 35 Patient Condition:: Stable Medical Necessity - Tobacco Use Smoking Status: Never smoker Meaningful Use Info Meaningful Use Diagnoses (Choose all that apply): None applicable <Barry Harris - Last Filed: 08/07/20 14:17> Discharge Date and Diagnosis - Primary Discharge Diagnosis Acute Problems: Active Problems (Last Reviewed 06/06/19 @ 16:03 by Liana Guadalupe) Atypical chest pain (Acute) - Secondary Discharge Diagnosis Chronic Problems: Chronic Problems (Last Reviewed 06/06/19 @ 16:03 by Liana Guadalupe) Monoclonal gammopathy of unknown significance (MGUS) (Chronic) Temporal arteritis (Chronic) HTN (hypertension) (Chronic) HLD (hyperlipidemia) (Chronic) Asthma (Chronic) Osteoarthritis of left shoulder (Chronic) Stented coronary artery (Chronic 06/20/18) STEMI, ALLIE to mid lad (2.5 X 20 Promus Synergy), ALLIE to proximal Diagonal #1 (2.25 X 16 Promus Synergy) per Dr. Warner @ [facility] Atherosclerotic heart disease of [place] coronary artery without angina pectoris (Chronic) STEMI, ALLIE to mid lad (2.5 X 20 Promus Synergy), ALLIE to proximal Diagonal #1 (2.25 X 16 Promus Synergy) per Dr. Warner @ [facility] Acute ST elevation myocardial infarction (Chronic) GERD (gastroesophageal reflux disease) (Chronic) Hypothyroidism (Chronic) M?ni?re's disease (Chronic) Hospital Course and Treatment Imaging Results: 08/07/20 05:55 Nuclear Stress Test - Chemical [NM] AM (NON MEDS) Summary of Care Provided: This patient was seen in conjunction with GORDY Gallegos . I have independently interviewed and examined the patient and reviewed pertinent historical, laboratory, and other data. Please refer to GORDY Gallegos note for details of this patient's presentation, findings, and recommendations. I have reviewed GORDY Gallegos note and concur with documented findings. In brief, patient is a 70-year-old female admitted with chest pain. Admitted to monitored bed LA was ruled out with serial cardiac enzymes subsequently underwent a nuclear stress test which was negative for stress-induced ischemia. Hospital course: As documented above - Physical Exam Vitals/I&O's: Vital Signs Temp Pulse Resp BP Pulse Ox 97.8 F 77 18 122/48 H 94 08/07/20 11:50 08/07/20 11:50 08/07/20 11:50 08/07/20 11:50 08/07/20 11:50 Oxygen Delivery Method Room Air Weight: 92.5 kg Body Mass Index (BMI) 39.7 Intake and Output for Last 24 Hours 08/05/20 08/06/20 08/07/20 23:59 23:59 23:59 Intake Total 480 / 480 1262.5 / 1262.5 Output Total 550 / 550 425 / 425 Balance -70 / -70 837.5 / 837.5 Microbiology Past 72 Hours 08/06/20 14:17 Mucosa - Nose SARS-CoV-2 Antigen (Rapid) - Final Laboratory Results 08/06/20 14:13: WBC 13.2 H, RBC 4.78, Hgb 13.4, Hct 42.4, MCV 88.7, MCH 28.0, MCHC 31.6 L, RDW Std Deviation 45.5 H, RDW Coeff of Agnieszka 14.1, Plt Count 232, MPV 9.6, Immature Gran % (Auto) 0.500, Neut % (Auto) 69.3, Lymph % (Auto) 21.4, Cannon % (Auto) 7.1, Eos % (Auto) 1.3, Baso % (Auto) 0.4, Absolute Neuts (auto) 9.1 H, Absolute Lymphs (auto) 2.82, Nucleated RBC % 0 08/06/20 14:13: D-Dimer Quant (PE/DVT) Cancelled 08/06/20 14:13: Sodium 140, Potassium 3.0 L, Chloride 107, Carbon Dioxide 28.0, Anion Gap 5, BUN 15, Creatinine 0.78, Estim Creat Clear Calc 43.30, Est GFR (MDRD) Af Amer 94, Est GFR (MDRD) Non-Af 77, BUN/Creatinine Ratio 19.2, Glucose 122 H, Calcium 9.4, Troponin I < 0.015 08/06/20 14:34: D-Dimer Quant (PE/DVT) 0.44 08/06/20 16:55: Troponin I < 0.015 08/06/20 16:55: Phosphorus 2.9, Magnesium 2.0 08/06/20 20:29: Troponin I < 0.015 08/07/20 04:48: WBC 8.7, RBC 3.96 L, Hgb 11.0 L, Hct 36.5 L, MCV 92.2, MCH 27.8, MCHC 30.1 L, RDW Std Deviation 48.2 H, RDW Coeff of Agnieszka 14.2, Plt Count 179, MPV 9.8, Immature Gran % (Auto) 0.300, Neut % (Auto) 62.6, Lymph % (Auto) 27.6, Cannon % (Auto) 7.7, Eos % (Auto) 1.3, Baso % (Auto) 0.5, Absolute Neuts (auto) 5.4, Absolute Lymphs (auto) 2.39, Nucleated RBC % 0 08/07/20 04:48: Sodium 142, Potassium 3.9, Chloride 110 H, Carbon Dioxide 26.0, Anion Gap 6, BUN 16, Creatinine 0.63, Estim Creat Clear Calc 37.60, Est GFR (MDRD) Af Amer 121, Est GFR (MDRD) Non-Af 100, BUN/Creatinine Ratio 25.5 H, Glucose 123 H, Calcium 8.3 L, Triglycerides 86, Cholesterol 122, LDL Cholesterol 38, VLDL Cholesterol 17, HDL Cholesterol 67, TSH 1.26 Current Medications Acetaminophen (Acetaminophen 325 Mg Tablet) 650 mg PO Q6H PRN PRN PRN Reason: Pain Score 1-10/Temp > 100.7 F Albuterol Sulfate (Albuterol 2.5 Mg/3 Ml Vial.Neb.) 2.5 mg INHALATION DAILY PRN PRN Reason: Asthma Aspirin (Aspirin E.C. 81 Mg Tablet) 81 mg PO DAILY@0800 [facility] Last Admin: 08/07/20 06:26 Dose: 81 mg Documented by: Atorvastatin Calcium (Atorvastatin Calcium 80 Mg Tablet) 80 mg PO QHS [facility] Last Admin: 08/06/20 21:05 Dose: 80 mg Documented by: Clopidogrel Bisulfate (Clopidogrel Bisulfate 75 Mg Tablet) 75 mg PO DAILY [facility] Last Admin: 08/07/20 06:26 Dose: 75 mg Documented by: Diltiazem HCl (Diltiazem Cd 120 Mg Capsule) 120 mg PO DAILY [facility] Last Admin: 08/07/20 11:52 Dose: 120 mg Documented by: Enoxaparin Sodium (Enoxaparin 40 Mg/0.4 Ml Syringe) 40 mg SC DAILY [facility] Last Admin: 08/06/20 17:42 Dose: 40 mg Documented by: Hydrochlorothiazide (Hydrochlorothiazide 12.5mg) 12.5 mg PO DAILY [facility] Last Admin: 08/07/20 11:53 Dose: 12.5 mg Documented by: Levothyroxine Sodium (Levothyroxine 50 Mcg Tablet) 50 mcg PO DAILY@0600 [facility] Last Admin: 08/07/20 06:26 Dose: 50 mcg Documented by: Losartan Potassium (Losartan Potassium 25 Mg Tablet) 25 mg PO QAM [facility] Last Admin: 08/07/20 06:26 Dose: 25 mg Documented by: Morphine Sulfate (Morphine 2 Mg/Ml Syringe) 2 mg IV Q3H PRN PRN PRN Reason: Pain Score 6-10 Nitroglycerin (Nitroglycerin (Inpatient Use) 0.4 Mg Tab.Subl) 0.4 mg SUBLINGUAL Q5M PRN PRN Reason: CARDIAC/CHEST PAIN Pantoprazole Sodium (Pantoprazole Sodium 40 Mg Tablet) 40 mg PO DAILY [facility] Last Admin: 08/07/20 11:52 Dose: 40 mg Documented by: Potassium Chloride (Potassium Chloride 20 Meq Tablet) [facility] Last Admin: 08/07/20 11:52 Dose: 40 meq Documented by: Prednisone (Prednisone 5 Mg Tablet) [facility] Last Admin: 08/07/20 11:52 Dose: 5 mg Documented by: Prochlorperazine Edisylate (Prochlorperazine 10 Mg/2 Ml Vial) 5 mg IV Q4H PRN PRN PRN Reason: Breakthrough Nausea/Vomiting Senna/Docusate Sodium (Senna/Docusate Sodium 1 Tablet) 2 tablet PO BID PRN PRN PRN Reason: Constipation Sodium Chloride (0.9% Saline Lock 10 Ml Syringe) 10 - 40 ml IV UD PRN PRN Reason: SALINE FLUSH Last Admin: 08/06/20 17:42 Dose: 10 ml Documented by: OBSV E&M: [id number] Observation care discharge
== END 2020-08-07 11:28 | disposition home or self-care (01) ==
LOC: ED 14:45 → PCU 16:08
PROVIDERS: Admitting Provider Internal Medicine; Emergency Provider Emergency Medicine; PCP Family Medicine; Visit Provider Internal Medicine
DX: R07.89 Other chest pain (principal); I25.10 Atherosclerotic heart disease of native coronary artery without angina pectoris; S32.401D Unspecified fracture of right acetabulum, subsequent encounter for fracture with routine healing; X58.XXXD Exposure to other specified factors, subsequent encounter; I25.2 Old myocardial infarction; E03.9 Hypothyroidism, unspecified; J45.909 Unspecified asthma, uncomplicated; D47.2 Monoclonal gammopathy; M31.6 Other giant cell arteritis; I10 Essential (primary) hypertension; M19.012 Primary osteoarthritis, left shoulder; K21.9 Gastro-esophageal reflux disease without esophagitis; E78.5 Hyperlipidemia, unspecified; E66.9 Obesity, unspecified; E87.6 Hypokalemia; K58.9 Irritable bowel syndrome, unspecified; R32 Unspecified urinary incontinence; E55.9 Vitamin D deficiency, unspecified; H81.09 Meniere's disease, unspecified ear; Z95.5 Presence of coronary angioplasty implant and graft; Z79.899 Other long term (current) drug therapy; Z79.02 Long term (current) use of antithrombotics/antiplatelets; Z79.82 Long term (current) use of aspirin; Z99.3 Dependence on wheelchair
CPT/HCPCS: 36415; 71045; 78452; 80048; 80061; 83735; 84100; 84443; 84484; 85025; 85379; 87426; 93005; 93017; 96360; 96361; 96372; 97162; 99218; 99251; 99285; A9500; J7030; A4216; G0378; G0463; J2785

== ENCOUNTER 2020-10-24 13:00 | Outpatient (RCR) | payer MEDICARE, SELFPAY ==
[2018-06-21 08:53] VITALS: BMI 38.3
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
--- NOTE | 2020-10-24 13:43 | HP.PTDCSUM ---
It has been my pleasure to treat CHELSEY TOLLIVER referred by Dr. Raj Walker DO, with the diagnosis of R hip OA for a total of 7 visit(s). Discharge Date: 10/24/20 Please see the following information for a summary of their discharge status. Subjective: I did pretty good. Doing machines. R hip is sore today but mught be the weather. Did exercises today and feels good. Pain in hip to 4/10 at most and much better. Overall 95% better. R hip groin Pain Intensity (Out of 10): 5 % Improvement: 95 Objective/Function: Walks and trasnfers I without pain today. FGA is +3 from eval. Pt happy adn willing to cotninue on own. Goal 1:: Pt feel stronger adn 75% back to normal without R hip pain >1/10 Goal Progress: Goal Met Goal 2:: I management of condition including gym ex for LE /postural strengtgh adn stretches LE Goal Progress: Goal Met Goal 4:: LEFS 44/80 Goal Progress: Goal Met Plan: d/c to HEP If there are questions or concerns regarding this patient's physical therapy, please feel free to call me at [phone]. Thank you for the referral of this patient. Sincerely, Maurilio Mullen, DPT, OCS, CSCS
== END 2020-10-24 19:00 | disposition home or self-care (01) ==
LOC: PT 13:00
PROVIDERS: PCP Family Medicine; Referring Provider Orthopaedic Surgery; Visit Provider Orthopaedic Surgery
DX: S76.011D Strain of muscle, fascia and tendon of right hip, subsequent encounter (principal); X58.XXXD Exposure to other specified factors, subsequent encounter; M16.11 Unilateral primary osteoarthritis, right hip
CPT/HCPCS: 97110; 97162; 97164

== ENCOUNTER 2020-12-11 05:45 | Emergency (ER) | payer MEDICARE, SELFPAY ==
[2018-06-21 08:53] VITALS: BMI 38.3
[2020-12-11] VITALS (8 sets, daily range): BP systolic 119–154; BP diastolic 62–72; PULSE 55–99; RESP 16–26; TEMP 36.6; O2SAT 92–99; BMI 40.7
--- NOTE | 2020-12-11 05:52 | EKG12_ITS ---
Test Reason : CP Blood Pressure : / mmHG Vent. Rate : 098 BPM Atrial Rate : 098 BPM P-R Int : 148 ms QRS Dur : 068 ms QT Int : 346 ms P-R-T Axes : 032 -04 029 degrees QTc Int : 441 ms Normal sinus rhythm Cannot rule out Inferior infarct , age undetermined Abnormal ECG Confirmed by HERMINIA KAY, ANGELA ([id number]), film and video editor MINNA JACKSON ([id number]) on 12/15/2020 10:52:06 A M Referred By: MARIANA Confirmed By:MEGAN HOPE MD
--- NOTE | 2020-12-11 05:52 | RAD_ITS ---
STUDY: X-RAY CHEST REASON FOR EXAM: Female, 70 years old. chest pain TECHNIQUE: Single AP portable view of the chest. COMPARISON: August 06, 2020 FINDINGS: No focal infiltrates or effusions. No pneumothorax. Normal size heart. Normal mediastinum and estelita. Normal visualized pulmonary arteries. Normal visualized aortic arch and descending thoracic aorta. Normal visualized thoracic spine. Normal visualized ribs, clavicles, and shoulders. There is no demonstrated abnormality of the visualized soft tissue structures of the upper abdomen. RAD/Chest 1 View (Portable) IMPRESSION: No acute cardiopulmonary disease. Electronically Signed: Roberto Amin MD at 6:47 EDT , Service support ,
[2020-12-11 06:07] LABS: Absolute Lymphocyte Count 2.09 X10^3/uL (0.83-4.51); Absolute Neutrophil Count 6.2 X10^3/uL (2.0-7.7); Basophil# 0.05 X10^3/uL; Basophil% 0.5 % (0-1); Eosinophil# 0.11 X10^3/uL; Eosinophils% 1.2 % (0-5); Hematocrit 39.9 % (37-47); Hemoglobin 12.4 g/dL (12.0-15.0); Lymphocyte # 2.09 X10^3/ul (0.83-4.51); Lymphocyte % 22.8 % (19-41); Mean Corp Hgb Conc 31.1 g/dL (32-36); Mean Corpuscular Hgb 27.2 pg (27.0-32.0); Mean Corpuscular Volume 87.5 fL (81-99); Mean Platelet Vol. 9.8 fl (6.2-12.0); Monocyte# 0.72 X10^3/uL; Monocyte% 7.8 % (0-10); NRBC Flagged by Analyzer 0 % (0-5); Neutrophil # 6.17 X10^3/uL (2.7-7.7); Neutrophil % 67.3 % (47-70); Platelet Count 222 K/mm3 (150-450); RBC Distribution Width CV 13.9 % (11.6-14.6); RBC Distribution Width SD 44.6 fl (35.1-43.9); Red Blood Count 4.56 M/mm3 (4.2-5.4); White Blood Count 9.2 K/mm3 (4.4-11.0)
[2020-12-11] MEDS: Aspirin 81 MG TAB.CHEW 324 MG PO (06:07)
[2020-12-11 06:25] LABS: Anion Gap 6 (5-15); BUN 16 mg/dL (7-18); BUN/Creat Ratio 22.3 RATIO (10-20); Calcium,Total 9.1 mg/dL (8.5-10.1); Chloride 106 mmol/L (98-107); Creatinine, Serum 0.72 mg/dL (0.55-1.02); EST Glomerular Filtration Rate 85 mL/min (>60); Est Glom Filt Rate - Afr Amer 103 mL/min (>60); Glucose 143 mg/dL (74-106); Magnesium 1.8 mg/dL (1.6-2.6); Potassium 3.3 mmol/L (3.5-5.1); Sodium Level 139 mmol/L (136-145)
--- NOTE | 2020-12-11 06:26 | EDS_ITS ---
HPI <Dr. Sumi Montes De Oca DO - Last Filed: 12/11/20 07:48> History of Present Illness Chief Complaint: Chest Pain Informant: patient Onset/Context/Timing Onset: Today Narrative Narrative: Patient is a 70-year-old female with extensive medical history including coronary artery disease status post 2 stents, hypertension, hyperlipidemia, monoclonal gammopathy of unknown significance and temporal arteritis on chronic steroid therapy as well as GERD presenting with chest discomfort. Patient states she woke up around 4 AM and felt like she was having severe indigestion. She states is in her epigastric/lower chest. She ate a cookie and had some milk and also took 281 mg aspirin. She continued have symptoms so she came to the emergency room because this is what her last heart attack felt like. She denies any significant chest pain just discomfort. She denies any associated shortness of breath. She notes she did have pain in her left arm during this episode but also states she has an issue with her ulnar nerve so she chronically has pain in her left arm so she is not sure if that was related. She has associated shortness of breath, orthopnea or cough. She notes that her hands felt very icy during this episode of pain. Patient currently has symptoms but notes that they are slightly improved. No other complaints at this time. She states she felt well yesterday. Prior Similar Symptoms: Yes and With Prior [place] [facility] <Dr. Sumi Montes De Oca DO - Last Filed: 12/11/20 07:48> [facility] Medical History Acute ST elevation myocardial infarction Arthritis Asthma Asthma Atherosclerotic heart disease of [place] coronary artery without angina pectoris GERD (gastroesophageal reflux disease) GERD (gastroesophageal reflux disease) HLD (hyperlipidemia) HTN (hypertension) Hypothyroid Hypothyroidism IBS (irritable bowel syndrome) Incontinence Knee pain Meniere disease Monoclonal gammopathy M?ni?re's disease Osteopenia Polyclonal gammopathy PVC's (premature ventricular contractions) Retinal tear of left eye SOB (shortness of breath) Temporal arteritis Ulnar neuropathy Vitamin D deficiency Home Medications levothyroxine 50 mcg PO DAILY 12/31/16 [History Last Taken 08/06/20] metronidazole 0.75 % topical cream 1 applicatio TOPICAL DAILY 68 Days #135 g 07/03/18 [History Last Taken 08/06/20] omeprazole 40 mg PO DAILY 08/09/18 [History Last Taken 08/06/20] albuterol sulfate 90 mcg/actuation aerosol inhaler 2 puff INHALATION DAILY PRN 11/16/18 [History Last Taken Unknown] cholecalciferol (vitamin D3) 50 mcg (2,000 unit) capsule 100 mcg PO DAILY 03/25/20 [History Last Taken 08/06/20] losartan 25 mg tablet 25 mg PO QAM tab 03/25/20 [History Last Taken 08/06/20] diltiazem HCl 120 mg capsule,extended release 24 hr 120 mg PO DAILY #90 cap 05/28/20 [Rx Last Taken 08/06/20] flaxseed oil 1,000 mg capsule 1,000 mg PO DAILY 07/03/20 [History Last Taken 08/06/20] atorvastatin 80 mg tablet 80 mg PO QHS #90 tab 07/18/20 [Rx Last Taken 08/05/20] acetaminophen 500 - 1,000 mg PO DAILY PRN PRN 08/06/20 [History Last Taken 08/01/20] aspirin 81 mg PO DAILY@199908/06/20 [History Last Taken 08/05/20] hydrochlorothiazide 12.5 mg PO DAILY 08/06/20 [History Last Taken 08/05/20] peg 400-propylene glycol 1 drp EACH EYE BID 08/06/20 [History Last Taken 08/06/20] prednisone 7.5 mg PO DAILY 08/06/20 [History Last Taken 08/06/20] potassium chloride 20 mEq tablet,extended release(part/cryst) 20 meq PO DAILY tablet 09/22/20 [History Last Taken Unknown] clopidogrel 75 mg tablet 75 mg PO DAILY #30 tab 12/02/20 [Rx Last Taken Unknown] Allergy/AdvReac Type Severity Reaction Status Date / Time clarithromycin [From Biaxin] Allergy Rash Verified 12/11/20 05:52 sulfamethoxazole Allergy Rash Verified 12/11/20 05:52 [From Bactrim] trimethoprim [From Bactrim] Allergy Rash Verified 12/11/20 05:52 carvedilol [From Coreg] AdvReac Intermediate Nausea, Verified 12/11/20 05:52 Lightheaded codeine AdvReac Upset Verified 12/11/20 05:52 Stomach lisinopril AdvReac cough Verified 12/11/20 05:52 Penicillins AdvReac Other Verified 12/11/20 05:52 Family History Mother Cancer skin Anemia Father Cancer Heart disease Surgical History History of delivery History of dilatation and curettage History of temporal artery biopsy (~12/2018) Hx of breast biopsy Hx of tonsillectomy Stented coronary artery (06/20/18) Social History Smoking Status: Never smoker alcohol intake: never caffeine: Yes Type: tea Number of servings: 2 ROS <Dr. Sumi Montes De Oca DO - Last Filed: 12/11/20 07:48> ROS ED Constitutional Constitutional ED: Denies chills or fever(s) Eyes Eyes: Denies blurry vision or change in vision ENT ENT ED: Denies rhinorrhea or sore throat Cardiovascular Cardiovascular: Reports chest pain; Denies orthopnea or palpitations Respiratory/Chest Respiratory/Chest: Denies cough, dyspnea, dyspnea on exertion or orthopnea Gastrointestinal Gastrointestinal: Reports nausea; Denies abdominal pain, diarrhea or vomiting Genitourinary Genitourinary ED: Denies dysuria or hematuria Musculoskeletal Musculoskeletal: Reports arthralgias and other Details: Right hip pain secondary to stress fracture of the hip near the acetabulum ; Denies myalgias Integumentary Denies rash Neurologic Neurologic: Denies headache(s) or weakness EXAM <Dr. Sumi Montes De Oca DO - Last Filed: 12/11/20 07:48> Physical Exam Const Vital Signs: 12/11/20 05:46 12/11/20 05:49 12/11/20 05:56 Temperature 97.8 F Temperature Source Temporal Pulse Rate 99 Respiratory Rate 18 Respiratory Effort Normal Blood Pressure 154/72 H Blood Pressure Mean 99 Pulse Ox 99 98 Oxygen Delivery Method Room Air Room Air 12/11/20 06:46 12/11/20 07:09 12/11/20 07:10 Temperature Temperature Source Pulse Rate 82 79 79 Respiratory Rate 20 H 26 H Respiratory Effort Blood Pressure 129/63 H 129/64 H 129/64 H Blood Pressure Mean 85 85 Pulse Ox 94 92 Oxygen Delivery Method Room Air Room Air 12/11/20 07:15 12/11/20 08:25 Temperature Temperature Source Pulse Rate 87 70 Respiratory Rate 17 Respiratory Effort Blood Pressure 120/67 119/62 Blood Pressure Mean 81 Pulse Ox 95 Oxygen Delivery Method Room Air Positive well nourished, well developed and obese General Appearance ED: well developed Nutritional Appearance: obese HEENT normocephalic and atraumatic Eyes PERRL and EOMs intact bilaterally Neck supple and no JVD Chest Wall inspection of chest normal Resp normal respiratory effort and clear to auscultation bilaterally Effort and Inspection: Negative for respiratory distress Cardio regular rate, regular rhythm and no murmurs GI normal to inspection, nondistended, normoactive bowel sounds Extremity normal to inspection General Extremety ED: Negative for edema or tenderness General Extremity: Negative for edema Neuro oriented x3 Neuro Narrative: No focal deficits appreciated Sensorium / Orientation: awake and alert Psych mental status grossly normal Skin no rashes or lesions noted and no wounds <Dr. Wilton Luque MD - Last Filed: 12/11/20 09:56> Physical Exam Const Vital Signs: 12/11/20 05:46 12/11/20 05:49 12/11/20 05:56 Temperature 97.8 F Temperature Source Temporal Pulse Rate 99 Respiratory Rate 18 Respiratory Effort Normal Blood Pressure 154/72 H Blood Pressure Mean 99 Pulse Ox 99 98 Oxygen Delivery Method Room Air Room Air 12/11/20 06:46 12/11/20 07:09 12/11/20 07:10 Temperature Temperature Source Pulse Rate 82 79 79 Respiratory Rate 20 H 26 H Respiratory Effort Blood Pressure 129/63 H 129/64 H 129/64 H Blood Pressure Mean 85 85 Pulse Ox 94 92 Oxygen Delivery Method Room Air Room Air 12/11/20 07:15 12/11/20 08:25 Temperature Temperature Source Pulse Rate 87 70 Respiratory Rate 17 Respiratory Effort Blood Pressure 120/67 119/62 Blood Pressure Mean 81 Pulse Ox 95 Oxygen Delivery Method Room Air <Dr. Sumi Montes De Oca DO - Last Filed: 12/11/20 07:48> Heart Score History: Slightly/Non-Suspicious ECG: Normal Age: >/= 65 years Risk Factors: >/= 3 Risk Factors or History of CAD Score: 4 MDM <Dr. Sumi Montes De Oca DO - Last Filed: 12/11/20 07:48> MDM MDM Narrative Medical decision making narrative: Patient is evaluated for chest discomfort that she describes as indigestion. She does have a cardiac history but had a normal nuclear stress test a couple months ago. She also has a history of acid reflux and GERD. EKG does not show any acute ischemic findings. Troponin is negative. Given that she had a recent negative stress test I will delta her and trial GI cocktail. Patient is agreeable with this plan. Patient will be signed out to oncoming provider pending final disposition. Lab Data Labs: Laboratory Results - last 24 hr 12/11/20 12/11/20 12/11/20 06:00 06:00 09:28 WBC 9.2 RBC 4.56 Hgb 12.4 Hct 39.9 MCV 87.5 MCH 27.2 MCHC 31.1 L RDW Std Deviation 44.6 H RDW Coeff of Agnieszka 13.9 Plt Count 222 MPV 9.8 Immature Gran % (Auto) 0.400 Neut % (Auto) 67.3 Lymph % (Auto) 22.8 [place] % (Auto) 7.8 Eos % (Auto) 1.2 Baso % (Auto) 0.5 Absolute Neuts (auto) 6.2 Absolute Lymphs (auto) 2.09 Nucleated RBC % 0 Sodium 139 Potassium 3.3 L Chloride 106 Carbon Dioxide 27.0 Anion Gap 6 BUN 16 Creatinine 0.72 Estim Creat Clear Calc 37.60 Est GFR (MDRD) Af Amer 103 Est GFR (MDRD) Non-Af 85 BUN/Creatinine Ratio 22.3 H Glucose 143 H Calcium 9.1 Magnesium 1.8 Troponin I < 0.015 < 0.015 Radiography Chest X-Ray - ED: 1 View, Read by ED Physician, Read by Radiologist and No Acute Disease Diagnostic Testing: Radiology Impression Chest X-Ray 12/11/20 05:52 IMPRESSION: No acute cardiopulmonary disease. Electronically Signed: Roberto Amin MD at 6:47 EDT , Service support , Rhythm Strip Rhythm Strip: Sinus Rhythm Rate: 98 Ectopy: None EKG Initial EKG: Attestation: I personally reviewed and interpreted this EKG as follows: Interpretation: Sinus Rhythm Comments: Normal sinus rhythm at a rate of 98 Normal axis Normal intervals Normal ST segments Compared to prior EKG on 08/07/2020 no acute changes <Dr. Wilton Luque MD - Last Filed: 12/11/20 09:56> [facility] Narrative Medical decision making narrative: Patient was signed out to me pending results of second troponin. She did have significant symptom improvement with GI cocktail. Second cardiac enzymes are negative. I did have long conversation with the patient. She wants to attempt outpatient therapy. I feel this is singh sonable. She has 2 - heart enzymes. She has no significant EKG changes. She will be discharged home. Impression 1. Atypical chest pain Lab Data Attestation: I reviewed the patient's lab results. Labs: Laboratory Results - last 24 hr 12/11/20 12/11/20 12/11/20 06:00 06:00 09:28 WBC 9.2 RBC 4.56 Hgb 12.4 Hct 39.9 MCV 87.5 MCH 27.2 MCHC 31.1 L RDW Std Deviation 44.6 H RDW Coeff of Agnieszka 13.9 Plt Count 222 MPV 9.8 Immature Gran % (Auto) 0.400 Neut % (Auto) 67.3 Lymph % (Auto) 22.8 [place] % (Auto) 7.8 Eos % (Auto) 1.2 Baso % (Auto) 0.5 Absolute Neuts (auto) 6.2 Absolute Lymphs (auto) 2.09 Nucleated RBC % 0 Sodium 139 Potassium 3.3 L Chloride 106 Carbon Dioxide 27.0 Anion Gap 6 BUN 16 Creatinine 0.72 Estim Creat Clear Calc 37.60 Est GFR (MDRD) Af Amer 103 Est GFR (MDRD) Non-Af 85 BUN/Creatinine Ratio 22.3 H Glucose 143 H Calcium 9.1 Magnesium 1.8 Troponin I < 0.015 < 0.015 Radiography Diagnostic Testing: Radiology Impression Chest X-Ray 12/11/20 05:52 IMPRESSION: No acute cardiopulmonary disease. Electronically Signed: Roberto Amin MD at 6:47 EDT , Service support , Discharge Plan Triage Chief Complaint: Chest Pain ED Provider: Wilton Luque Dx/Rx/DC Orders Instructions: ED Chest Pain, Noncardiac Prescriptions: No Action metronidazole 0.75 % cream 1 applicatio TOPICAL DAILY 68 Days Qty: 135 RF: 0 losartan 25 mg tablet 25 mg PO QAM RF: 0 cholecalciferol (vitamin D3) 50 mcg (2,000 unit) capsule 100 mcg PO DAILY RF: 0 flaxseed oil 1,000 mg capsule 1,000 mg PO DAILY RF: 0 levothyroxine 50 MCG tablet 50 mcg PO DAILY RF: 0 omeprazole 40 MG capsule,delayed release(DR/EC) 40 mg PO DAILY RF: 0 albuterol sulfate 90 mcg/actuation HFA aerosol inhaler 2 puff INHALATION DAILY PRN (Reason: Asthma) RF: 0 potassium chloride 20 mEq tablet,ER particles/crystals 20 meq PO DAILY RF: 0 prednisone 5 MG tablet 7.5 mg PO DAILY RF: 0 acetaminophen 500 MG tablet 500 - 1,000 mg PO DAILY PRN PRN (Reason: Pain 1-10 Or Fever) RF: 0 hydrochlorothiazide 25 MG tablet 12.5 mg PO DAILY RF: 0 peg 400-propylene glycol 10 ML drops 1 drp EACH EYE BID RF: 0 aspirin 81 MG tablet 81 mg PO DAILY@1999 RF: 0 diltiazem HCl 120 mg capsule,extended release 24hr 120 mg PO DAILY Qty: 90 RF: 3 atorvastatin 80 mg tablet 80 mg PO QHS Qty: 90 RF: 3 clopidogrel 75 mg tablet 75 mg PO DAILY Qty: 30 RF: 11 Primary Care Provider: Mikael Ramires Referrals: Mikael Ramires [Primary Care Provider] -
[2020-12-11] MEDS: Nitroglycerin SL (ED/IMG/CATH) 0.4 MG TABLET SL ×2 (07:09→07:15)
== END 2020-12-11 10:10 | disposition home or self-care (01) ==
PROVIDERS: Emergency Medicine; Emergency Provider Emergency Medicine; PCP Family Medicine
DX: R07.89 Other chest pain (principal); G56.22 Lesion of ulnar nerve, left upper limb; I25.10 Atherosclerotic heart disease of native coronary artery without angina pectoris; D47.2 Monoclonal gammopathy; I10 Essential (primary) hypertension; E78.5 Hyperlipidemia, unspecified; E03.9 Hypothyroidism, unspecified; K58.9 Irritable bowel syndrome, unspecified; J45.909 Unspecified asthma, uncomplicated; M19.90 Unspecified osteoarthritis, unspecified site; K21.9 Gastro-esophageal reflux disease without esophagitis; E66.9 Obesity, unspecified; I25.2 Old myocardial infarction; Z79.02 Long term (current) use of antithrombotics/antiplatelets; Z79.82 Long term (current) use of aspirin; Z79.890 Hormone replacement therapy; Z79.52 Long term (current) use of systemic steroids; Z79.899 Other long term (current) drug therapy; Z95.5 Presence of coronary angioplasty implant and graft
CPT/HCPCS: 36415; 71045; 80048; 83735; 84484; 85025; 93005; 99284; A4216

== ENCOUNTER → 2021-03-23 11:48 | Outpatient (CLI) | payer MEDICARE, SELFPAY ==
[2018-06-21 08:53] VITALS: BMI 38.3
[2021-03-23 12:20] LABS: Erythrocyte Sedimentation Rate 41 mm/hr (0-30)
[2021-03-23 12:22] LABS: Absolute Lymphocyte Count 1.57 X10^3/uL (0.83-4.51); Absolute Neutrophil Count 4.4 X10^3/uL (2.0-7.7); Basophil# 0.03 X10^3/uL; Basophil% 0.4 % (0-1); Eosinophils% 2.9 % (0-5); Hematocrit 38.5 % (37-47); Hemoglobin 12.1 g/dL (12.0-15.0); Lymphocyte # 1.57 X10^3/ul (0.83-4.51); Lymphocyte % 23.1 % (19-41); Mean Corp Hgb Conc 31.4 g/dL (32-36); Mean Corpuscular Hgb 27.2 pg (27.0-32.0); Mean Corpuscular Volume 86.5 fL (81-99); Mean Platelet Vol. 9.8 fl (6.2-12.0); Monocyte# 0.56 X10^3/uL; Monocyte% 8.2 % (0-10); NRBC Flagged by Analyzer 0 % (0-5); Neutrophil # 4.43 X10^3/uL (2.7-7.7); Neutrophil % 65.1 % (47-70); Platelet Count 218 K/mm3 (150-450); RBC Distribution Width CV 14.3 % (11.6-14.6); RBC Distribution Width SD 45.7 fl (35.1-43.9); Red Blood Count 4.45 M/mm3 (4.2-5.4); White Blood Count 6.8 K/mm3 (4.4-11.0)
[2021-03-23 12:52] LABS: Hemoglobin A1c 5.9 % (3.8-5.6)
[2021-03-23 12:54] LABS: ALB/GLOB Ratio 0.9 RATIO (0.9-2.4); AST(SGOT) 12 U/L (15-37); Alanine Aminotransfer ALT/SGPT 19 U/L (13-56); Albumin, Serum 3.3 g/dL (3.2-5.0); Alkaline Phosphatase 108 U/L (45-117); Anion Gap 9 (5-15); BUN 12 mg/dL (7-18); BUN/Creat Ratio 17.9 RATIO (10-20); Bilirubin, Direct 0.17 mg/dL (0.00-0.30); Chloride 104 mmol/L (98-107); Cholesterol 124 mg/dL (200); Creatinine, Serum 0.67 mg/dL (0.55-1.02); EST Glomerular Filtration Rate 93 mL/min (>60); Est Glom Filt Rate - Afr Amer 112 mL/min (>60); Globulin 3.7 g/dL (2.2-4.2); Glucose 124 mg/dL (74-106); High Density Lipoprotein 64 mg/dL; Potassium 3.6 mmol/L (3.5-5.1); Sodium Level 137 mmol/L (136-145); Triglycerides 101 mg/dL; Very Low Density Lipoprotein 20 mg/dL (5-40)
== END ==
PROVIDERS: Internal Medicine Cardiovascular Disease; PCP Family Medicine; Referring Provider Family Medicine; Visit Provider Family Medicine
DX: M35.3 Polymyalgia rheumatica (principal); R73.9 Hyperglycemia, unspecified; T38.0X5A Adverse effect of glucocorticoids and synthetic analogues, initial encounter; I10 Essential (primary) hypertension; D64.9 Anemia, unspecified
CPT/HCPCS: 36415; 80053; 80061; 82248; 83036; 85025; 85652

== ENCOUNTER → 2021-05-18 11:35 | Outpatient (CLI) | payer MEDICARE, SELFPAY ==
[2018-06-21 08:53] VITALS: BMI 38.3
[2021-05-18 12:08] LABS: Erythrocyte Sedimentation Rate 36 mm/hr (0-30)
== END ==
PROVIDERS: PCP Family Medicine; Referring Provider Family Medicine; Visit Provider Family Medicine
DX: M35.3 Polymyalgia rheumatica (principal)
CPT/HCPCS: 36415; 85652

== ENCOUNTER 2021-06-30 01:54 | Emergency (ER) | payer MEDICARE, SELFPAY ==
[2018-06-21 08:53] VITALS: BMI 38.3
[2021-06-30 01:54] VITALS: BP 162/81; PULSE 110; RESP 16; TEMP 36.6; O2SAT 97; BMI 36.2
--- NOTE | 2021-06-30 03:14 | CT_ITS ---
STUDY: CT BRAIN WITHOUT CONTRAST REASON FOR EXAM: Female, 70 years old. headache RADIATION DOSAGE (If Supplied By Facility): CTDIvol = ( 44.99 ) mGy, DLP = ( 745.49 ) mGycm TECHNIQUE: Transaxial CT imaging of the brain was performed without administration of intravenous contrast material. Individualized dose optimization techniques were used for this CT. COMPARISON: No relevant priors. FINDINGS: Normal soft tissue structures. Normal calvarium. Normal size ventricles and extra-axial spaces for the patient''s age. There are areas of decreased attenuation within the white matter tracts of the supratentorial brain, consistent with microvascular disease changes. Normal basal ganglia and thalami. Normal brainstem. Normal cerebellum. There is no intracranial hemorrhage. There are no findings of an acute ischemic infarction. Normal visualized paranasal sinuses. CT/Brain/Head without Contrast IMPRESSION: Chronic involutional changes of the brain. Electronically Signed: Asif Carey MD at 4:47 EST Tel , Service support ,
[2021-06-30] MEDS: MethylPREDNISolone 125 MG/2 ML Vial IV (03:39)
[2021-06-30 04:07] LABS: Anion Gap 6 (5-15); BUN 13 mg/dL (7-18); BUN/Creat Ratio 19.7 RATIO (10-20); CRP 6.98 mg/L (0.0-3.0); Calcium,Total 9.2 mg/dL (8.5-10.1); Chloride 106 mmol/L (98-107); Creatinine, Serum 0.66 mg/dL (0.55-1.02); EST Glomerular Filtration Rate 94 mL/min (>60); Est Glom Filt Rate - Afr Amer 114 mL/min (>60); Glucose 124 mg/dL (74-106); Potassium 3.7 mmol/L (3.5-5.1); Sodium Level 140 mmol/L (136-145)
[2021-06-30 04:10] LABS: Erythrocyte Sedimentation Rate 35 mm/hr (0-30)
[2021-06-30 04:12] LABS: Absolute Lymphocyte Count 1.64 X10^3/uL (0.83-4.51); Absolute Neutrophil Count 5.8 X10^3/uL (2.0-7.7); Basophil# 0.03 X10^3/uL; Basophil% 0.4 % (0-1); Eosinophil# 0.06 X10^3/uL; Eosinophils% 0.7 % (0-5); Hematocrit 37.2 % (37-47); Hemoglobin 11.7 g/dL (12.0-15.0); Lymphocyte # 1.64 X10^3/ul (0.83-4.51); Lymphocyte % 20.3 % (19-41); Mean Corp Hgb Conc 31.5 g/dL (32-36); Mean Corpuscular Hgb 26.7 pg (27.0-32.0); Mean Corpuscular Volume 84.7 fL (81-99); Mean Platelet Vol. 10.1 fl (6.2-12.0); Monocyte# 0.49 X10^3/uL; Monocyte% 6.1 % (0-10); NRBC Flagged by Analyzer 0 % (0-5); Neutrophil % 71.9 % (47-70); Platelet Count 215 K/mm3 (150-450); RBC Distribution Width CV 14.7 % (11.6-14.6); RBC Distribution Width SD 45.3 fl (35.1-43.9); Red Blood Count 4.39 M/mm3 (4.2-5.4); White Blood Count 8.1 K/mm3 (4.4-11.0)
[2021-06-30 04:24] VITALS: BP 128/69; PULSE 102; RESP 24; O2SAT 95
--- NOTE | 2021-06-30 05:56 | EDS_ITS ---
HPI History of Present Illness Chief Complaint: Headache Narrative Narrative: Patient is a 70-year-old female who states about 2 years ago she was worked up for temporal arteritis. She states that over the last 1 to 2 days she is felt like there is been a steel net on the top of her head. She denies any change in vision she denies any fevers or chills or trauma. She states she is concerned this could be the start of temporal arteritis once again and therefore comes in for evaluation [facility] Medical History (Updated 06/30/21 @ 05:[address] Tate Reyes, DO) Acute ST elevation myocardial infarction Arthritis Asthma Asthma Atherosclerotic heart disease of [place] coronary artery without angina pectoris Essential hypertension GERD (gastroesophageal reflux disease) GERD (gastroesophageal reflux disease) HLD (hyperlipidemia) HTN (hypertension) Hypothyroid Hypothyroidism IBS (irritable bowel syndrome) Incontinence Knee pain Meniere disease Monoclonal gammopathy M?ni?re's disease Osteopenia Polyclonal gammopathy PVC's (premature ventricular contractions) Retinal tear of left eye SOB (shortness of breath) Temporal arteritis Ulnar neuropathy Vitamin D deficiency Home Medications levothyroxine 50 mcg PO DAILY 12/31/16 [History Last Taken 08/06/20] metronidazole 0.75 % topical cream 1 applicatio TOPICAL DAILY 68 Days #135 g 07/03/18 [History Last Taken 08/06/20] albuterol sulfate 90 mcg/actuation aerosol inhaler 2 puff INHALATION DAILY PRN 11/16/18 [History Last Taken Unknown] cholecalciferol (vitamin D3) 50 mcg (2,000 unit) capsule 100 mcg PO DAILY 03/25/20 [History Last Taken 08/06/20] flaxseed oil 1,000 mg capsule 1,000 mg PO DAILY 07/03/20 [History Last Taken 08/06/20] atorvastatin 80 mg tablet 80 mg PO QHS #90 tab 07/18/20 [Rx Last Taken 08/05/20] acetaminophen 500 - 1,000 mg PO DAILY PRN PRN 08/06/20 [History Last Taken 08/01/20] aspirin 81 mg PO DAILY@199908/06/20 [History Last Taken 08/05/20] hydrochlorothiazide 12.5 mg PO DAILY 08/06/20 [History Last Taken 08/05/20] peg 400-propylene glycol 1 drp EACH EYE BID 08/06/20 [History Last Taken 08/06/20] potassium chloride 20 mEq tablet,extended release(part/cryst) 20 meq PO DAILY tablet 09/22/20 [History Last Taken Unknown] clopidogrel 75 mg tablet 75 mg PO DAILY #30 tab 12/02/20 [Rx Last Taken Unknown] losartan 25 mg tablet 25 mg PO QAM #90 tab 03/04/21 [Rx Last Taken Unknown] omeprazole 40 mg capsule,delayed release 80 mg PO DAILY cap 03/25/21 [History Last Taken Unknown] prednisone 1 mg tablet 3 mg PO DAILY tab 03/25/21 [History Last Taken Unknown] vitamin E 1 applic TOPICAL QAM AND QHS 03/25/21 [History Last Taken Unknown] diltiazem HCl 120 mg capsule,extended release 24 hr 120 mg PO DAILY #90 cap 06/01/21 [Rx Last Taken Unknown] prednisone 20 mg PO DAILY 5 Days #5 tab 06/30/21 [Rx Last Taken Unknown] Allergy/AdvReac Type Severity Reaction Status Date / Time clarithromycin [From Biaxin] Allergy Rash Verified 06/30/21 03:31 sulfamethoxazole Allergy Rash Verified 06/30/21 03:31 [From Bactrim] trimethoprim [From Bactrim] Allergy Rash Verified 06/30/21 03:31 carvedilol [From Coreg] AdvReac Intermediate Nausea, Verified 06/30/21 03:31 Lightheaded codeine AdvReac Upset Verified 06/30/21 03:31 Stomach lisinopril AdvReac cough Verified 06/30/21 03:31 Penicillins AdvReac Other Verified 06/30/21 03:31 Family History Mother Cancer skin Anemia Father Cancer Heart disease Surgical History History of delivery History of dilatation and curettage History of temporal artery biopsy (~12/2018) Hx of breast biopsy Hx of tonsillectomy Stented coronary artery (06/20/18) Social History Smoking Status: Never smoker alcohol intake: never caffeine: Yes Type: tea Number of servings: 2 ROS ROS ED Constitutional Constitutional ED: Denies chills or fever(s) Eyes Eyes: Denies change in vision ENT ENT ED: Denies sore throat Cardiovascular Cardiovascular: Denies chest pain Respiratory/Chest Respiratory/Chest: Denies cough or dyspnea Gastrointestinal Gastrointestinal: Denies abdominal pain, diarrhea, nausea or vomiting Genitourinary Genitourinary ED: Denies dysuria Musculoskeletal Musculoskeletal: Denies myalgias Integumentary Denies rash Neurologic Neurologic: Reports headache(s) Hematologic/Lymphatic Hematologic/Lymphatic: Reports easy bleeding and easy bruising EXAM Physical Exam Const Vital Signs: 06/30/21 01:54 06/30/21 04:24 Temperature 97.8 F Temperature Source Temporal Pulse Rate 110 H 102 H Respiratory Rate 16 24 H Blood Pressure 162/81 H 128/69 H Blood Pressure Mean 108 88 Pulse Ox 97 95 Oxygen Delivery Method Room Air Room Air Positive well nourished and well developed General Appearance ED: well developed HEENT Reports moist mucous membranes HEENT Narrative: No soft tissue changes to the scalp to suggest infection such as herpes zoster or cellulitis Eyes PERRL and EOMs intact bilaterally Eyes Narrative: No pain with palpation over top the temporal artery region bilaterally Neck supple Neck Narrative: No meningeal signs Resp normal respiratory effort and clear to auscultation bilaterally Cardio regular rate and regular rhythm Extremity normal to inspection Neuro oriented x3 and CN's II-XII intact bilaterally Neuro Narrative: No pronator drift no dysmetria no truncal ataxia. NIH stroke scale score of 0. Sensorium / Orientation: alert Motor Exam: strength 5/5 throughout Psych mental status grossly normal Skin no rashes or lesions noted MDM MDM MDM Narrative Medical decision making narrative: Patient presented to the ER mildly hypertensive but otherwise with stable vitals. She had a normal neurologic exam and no overlying soft tissue changes to suggest infection of the scalp as a cause of her headache. A CT scan was obtained that revealed no acute findings within the brain. Inflammatory markers are elevated but near patient's baseline. Chart review reveals that back when she was worked up for temporal arteritis that these values were approximately double of what they are today. Therefore she does not have change in vision or pain with palpation over top the temporal artery region and her inflammatory markers are at her baseline do not feel there is need for further work-up. I did elect to provide her with IV So barney-Medrol and on reevaluation she reports improvement of her symptoms and her neurologic exam remains normal. Therefore patient can be discharged home at this time and will follow up with her doctor for further evaluation Lab Data Attestation: I reviewed the patient's lab results. Labs: Laboratory Results - last 24 hr 06/30/21 06/30/21 03:42 03:42 WBC 8.1 RBC 4.39 Hgb 11.7 L Hct 37.2 MCV 84.7 MCH 26.7 L MCHC 31.5 L RDW Std Deviation 45.3 H RDW Coeff of Agnieszka 14.7 H Plt Count 215 MPV 10.1 Immature Gran % (Auto) 0.600 Neut % (Auto) 71.9 H Lymph % (Auto) 20.3 [place] % (Auto) 6.1 Eos % (Auto) 0.7 Baso % (Auto) 0.4 Absolute Neuts (auto) 5.8 Absolute Lymphs (auto) 1.64 Nucleated RBC % 0 ESR 35 H Sodium 140 Potassium 3.7 Chloride 106 Carbon Dioxide 28.0 Anion Gap 6 BUN 13 Creatinine 0.66 Estim Creat Clear Calc 39.50 Est GFR (MDRD) Af Amer 114 Est GFR (MDRD) Non-Af 94 BUN/Creatinine Ratio 19.7 Glucose 124 H Calcium 9.2 C-React Prot Ext Range 6.98 H Radiography Diagnostic Testing: Clinical Impression(s) from Imaging Studies Brain CT 06/30/21 03:14 IMPRESSION: Chronic involutional changes of the brain. Electronically Signed: Asif Carey MD at 4:47 EST Tel , Service support , Discharge Plan Triage Chief Complaint: Headache ED Provider: Tate Reyes Dx/Rx/DC Orders Clinical Impression: Cephalgia Instructions: ED Pain, Acute, Uncertain Cause Prescriptions: New prednisone 20 mg tablet 20 mg PO DAILY 5 Days Qty: 5 RF: 0 No Action metronidazole 0.75 % cream 1 applicatio TOPICAL DAILY 68 Days Qty: 135 RF: 0 cholecalciferol (vitamin D3) 50 mcg (2,000 unit) capsule 100 mcg PO DAILY RF: 0 prednisone 1 mg tablet 3 mg PO DAILY RF: 0 vitamin E Oil 1 applic topical QAM AND QHS RF: 0 flaxseed oil 1,000 mg capsule 1,000 mg PO DAILY RF: 0 levothyroxine 50 MCG tablet 50 mcg PO DAILY RF: 0 albuterol sulfate 90 mcg/actuation HFA aerosol inhaler 2 puff INHALATION DAILY PRN (Reason: Asthma) RF: 0 potassium chloride 20 mEq tablet,ER particles/crystals 20 meq PO DAILY RF: 0 omeprazole 40 mg capsule,delayed release(DR/EC) 80 mg PO DAILY RF: 0 acetaminophen 500 MG tablet 500 - 1,000 mg PO DAILY PRN PRN (Reason: Pain 1-10 Or Fever) RF: 0 hydrochlorothiazide 25 MG tablet 12.5 mg PO DAILY RF: 0 peg 400-propylene glycol 10 ML drops 1 drp EACH EYE BID RF: 0 aspirin 81 MG tablet 81 mg PO DAILY@1999 RF: 0 atorvastatin 80 mg tablet 80 mg PO QHS Qty: 90 RF: 3 clopidogrel 75 mg tablet 75 mg PO DAILY Qty: 30 RF: 11 losartan 25 mg tablet 25 mg PO QAM Qty: 90 RF: 3 diltiazem HCl 120 mg capsule,extended release 24hr 120 mg PO DAILY Qty: 90 RF: 3 Primary Care Provider: Mikael Ramires Referrals: Mikael Ramires [Primary Care Provider] - Activity Restrictions/Additional Instructions: Please increase your prednisone to 20 mg for the next 5 days and follow-up with your account executive [employer] for further evaluation of possible temporal arteritis as a cause of your symptoms Disposition Disposition: Home, Self Care Discharge Date/Time: 06/30/21 06:07
[2021-06-30 06:07] VITALS: BP 140/73; PULSE 86; RESP 16; O2SAT 96
== END 2021-06-30 06:07 | disposition home or self-care (01) ==
PROVIDERS: Emergency Provider Emergency Medicine; PCP Family Medicine; Visit Provider Emergency Medicine
DX: R51.9 Headache, unspecified (principal); I25.10 Atherosclerotic heart disease of native coronary artery without angina pectoris; I10 Essential (primary) hypertension; I25.2 Old myocardial infarction; J45.909 Unspecified asthma, uncomplicated; K21.9 Gastro-esophageal reflux disease without esophagitis; E03.9 Hypothyroidism, unspecified; E55.9 Vitamin D deficiency, unspecified; Z95.5 Presence of coronary angioplasty implant and graft; Z79.82 Long term (current) use of aspirin; Z79.899 Other long term (current) drug therapy
CPT/HCPCS: 70450; 80048; 85025; 85652; 86140; 96374; 99284; A4216

== ENCOUNTER 2021-06-30 10:23 | Outpatient (CLI) | payer MEDICARE, SELFPAY ==
[2018-06-21 08:53] VITALS: BMI 38.3
--- NOTE | 2021-06-30 10:26 | BI_ITS ---
MAMMOGRAPHY - BILATERAL SCREENING REASON FOR EXAM: Female, 70 years old. Routine annual screening examination. PERTINENT HISTORY: Non-contributory. TECHNIQUE: Digital bilateral breast zack (3D mammographic acquisition) in the CC and MLO projections. 2-D mediolateral oblique (MLO) and craniocaudad (CC) views of both breasts were obtained. CAD: Full Field Digital Mammography with Computer Added Detection was performed. COMPARISON: Comparison is made with prior study dated 06/11/2020 and 06/13/2017. FINDINGS: Breast Composition: There are scattered areas of fibroglandular density. There are no dominant masses or suspicious calcifications. Stable small benign-appearing bilateral axillary. No other significant abnormalities are identified. There has been no significant change since the prior study. BI/SCRN MAMM (CAD)W/ZACK BILAT IMPRESSION: Stable bilateral screening mammogram. Yearly follow-up mammogram recommended. (A) ASSESSMENT CATEGORY: BIRADS Category 2: Benign. A letter regarding these results will be sent to the patient by the facility within 30 days. Approximately 10% of breast cancers are not detected by mammography. A normal mammogram should not delay biopsy of a clinically suspicious abnormality. [id number] Electronically Signed: Donis Rocha MD at 11:56 EST , Service support ,
--- NOTE | 2021-06-30 11:02 | BD_ITS ---
STUDY: DUAL ENERGY X-RAY ABSORPTIOMETRY / DXA REASON FOR EXAM: Female, 70 years old. M85.9. The patient is postmenopausal. TECHNIQUE: Bone Mineral Density (BMD) measurements of lumbar spine and left hip were obtained. COMPARISON: Comparison is made with prior study 01/25/2019. FINDINGS: Lumbar Spine (L1-L4): g/cm2 (0.837) / T-score (-1.9) / Z-score (0.3) Findings are suggestive of osteopenia with a moderate fracture risk. Left Femur Total: g/cm2 (0.850) / T-score (-0.8) / Z-score (0.8) Left Femoral Neck: g/cm2 (0.583) / T-score (-2.4) / Z-score (-0.5) The T-Scores on the most recent prior examination were: Lumbar Spine (L1-L4): There has been worsening of bone density since the previous examination. Left Femur Total: which represents a worsening of 4.6%. BD/Dexa Bone Density Study IMPRESSION: The patient is considered osteopenic as outlined below according to World Naif Organization (WHO) criteria with a high fracture risk. There has been worsening of bone density since the previous examination. Reference Information: The T-score is the number of standard deviations above or below the standard which is normal for young adults at their peak bone mineral density. The World Health Organization (WHO) interprets the T-scores as follows: Above -1 Normal bone density Between -1 and -2.5 Osteopenia Equal to / or below -2.5 Osteoporosis As a practical clinical guideline, osteopenia may be graded as follows: Mild -1 through -1.5 Moderate -1.6 through -2.0 Severe -2.1 through -2.4 The Z-score is the number of standard deviations above or below age-matched controls. A Z-score of less than -1.5 would be considered abnormal. References: 1. NIH Osteoporosis and Related Bone Diseases www osteo.org 2. International Society for Clinical Densitometry www iscd.org 3. National Osteoporosis Foundation www nof.org Electronically Signed: Donis Rocha MD at 13:26 EST , Service support ,
== END 2021-06-30 23:59 | disposition short-term general hospital (02) ==
LOC: OPBI 10:23
PROVIDERS: PCP Family Medicine; Visit Provider Family Medicine
DX: Z12.31 Encounter for screening mammogram for malignant neoplasm of breast (principal); M85.80 Other specified disorders of bone density and structure, unspecified site; Z79.52 Long term (current) use of systemic steroids
CPT/HCPCS: 77063; 77067; 77080

== ENCOUNTER 2021-08-02 14:40 | Emergency (ER) | payer MEDICARE, SELFPAY ==
[2018-06-21 08:53] VITALS: BMI 38.3
[2021-08-02 14:41] VITALS: BP 139/59; PULSE 90; RESP 16; TEMP 36.2; O2SAT 97
[2021-08-02 14:48] VITALS: BP 151/49; PULSE 87; RESP 19; O2SAT 98
--- NOTE | 2021-08-02 14:58 | EKG12_ITS ---
Test Reason : AFIB Blood Pressure : / mmHG Vent. Rate : 089 BPM Atrial Rate : 089 BPM P-R Int : 134 ms QRS Dur : 068 ms QT Int : 352 ms P-R-T Axes : 032 001 038 degrees QTc Int : 428 ms Normal sinus rhythm Low voltage QRS Borderline ECG Confirmed by EUGENIO KAY, NELLI ([id number]), editor house organ MINNA JACKSON ([id number]) on 08/03/2021 11:23:31 AM Referred By: YOLANDA Confirmed By:NELLI BECKER MD
--- NOTE | 2021-08-02 14:59 | EDS_ITS ---
HPI History of Present Illness Chief Complaint: Palpitations Informant: patient Onset/Context/Timing Onset: Days Timing: Waxes and wanes Current Severity: Mild Maximum Severity: Moderate Narrative Narrative: Patient presents secondary to palpitations. She was seen by her doctor in the office on Tuesday for chest cold-like symptoms. She was found to be in new onset atrial fibrillation at that time. Patient was told to start taking 2 doses of Coreg a day. She states Tuesday her heart rate would fluctuate anywhere from 50-150. Last evening she felt nauseous and when she checked her heart rate was around 100. Today she was sitting there pain bills and got very foggy brained and her heart rate was 101. She denies chest pain. She does have a history of hypothyroidism but has been on the same dose of levothyroxine for quite some time. She is currently on aspirin and Plavix but no other anticoagulants. [facility] Medical History Acute ST elevation myocardial infarction Arthritis Asthma Atherosclerotic heart disease of [place] coronary artery without angina pectoris Essential hypertension GERD (gastroesophageal reflux disease) HLD (hyperlipidemia) HTN (hypertension) Hypothyroidism IBS (irritable bowel syndrome) Incontinence Knee pain Monoclonal gammopathy M?ni?re's disease Osteopenia Polyclonal gammopathy PVC's (premature ventricular contractions) Retinal tear of left eye SOB (shortness of breath) Temporal arteritis Ulnar neuropathy Vitamin D deficiency Home Medications levothyroxine 50 mcg PO DAILY 12/31/16 [History Last Taken 08/06/20] metronidazole 0.75 % topical cream 1 applicatio TOPICAL DAILY 68 Days #135 g 07/03/18 [History Last Taken 08/06/20] albuterol sulfate 90 mcg/actuation aerosol inhaler 2 puff INHALATION DAILY PRN 0 11/16/18 [History Last Taken Unknown] cholecalciferol (vitamin D3) 50 mcg (2,000 unit) capsule 100 mcg PO DAILY 03/25/20 [History Last Taken 08/06/20] flaxseed oil 1,000 mg capsule 1,000 mg PO DAILY 07/03/20 [History Last Taken 08/06/20] atorvastatin 80 mg tablet 80 mg PO QHS #90 tab 07/18/20 [Rx Last Taken 08/05/20] acetaminophen 500 - 1,000 mg PO DAILY PRN PRN 08/06/20 [History Last Taken 08/01/20] aspirin 81 mg PO DAILY@199908/06/20 [History Last Taken 08/05/20] hydrochlorothiazide 12.5 mg PO DAILY 08/06/20 [History Last Taken 08/05/20] peg 400-propylene glycol 1 drp EACH EYE BID 08/06/20 [History Last Taken 08/06/20] potassium chloride 20 mEq tablet,extended release(part/cryst) 20 meq PO DAILY tablet 09/22/20 [History Last Taken Unknown] clopidogrel 75 mg tablet 75 mg PO DAILY #30 tab 12/02/20 [Rx Last Taken Unknown] losartan 25 mg tablet 25 mg PO QAM #90 tab 03/04/21 [Rx Last Taken Unknown] omeprazole 40 mg capsule,delayed release 80 mg PO DAILY cap 03/25/21 [History Last Taken Unknown] prednisone 1 mg tablet 3 mg PO DAILY tab 03/25/21 [History Last Taken Unknown] vitamin E 1 applic TOPICAL QAM AND QHS 03/25/21 [History Last Taken Unknown] prednisone 20 mg PO DAILY 5 Days #5 tab 06/30/21 [Rx Last Taken Unknown] diltiazem HCl 240 mg PO DAILY 08/02/21 [History Last Taken Unknown] Allergy/AdvReac Type Severity Reaction Status Date / Time clarithromycin [From Biaxin] Allergy Rash Verified 08/02/21 14:45 sulfamethoxazole Allergy Rash Verified 08/02/21 14:45 [From Bactrim] trimethoprim [From Bactrim] Allergy Rash Verified 08/02/21 14:45 carvedilol [From Coreg] AdvReac Intermediate Nausea, Verified 08/02/21 14:45 Lightheaded codeine AdvReac Upset Verified 08/02/21 14:45 Stomach lisinopril AdvReac cough Verified 08/02/21 14:45 Penicillins AdvReac Other Verified 08/02/21 14:45 Family History Mother Cancer skin Anemia Father Cancer Heart disease Surgical History History of delivery History of dilatation and curettage History of temporal artery biopsy (~12/2018) Hx of breast biopsy Hx of tonsillectomy Stented coronary artery (06/20/18) Social History Smoking Status: Never smoker alcohol intake: never caffeine: Yes Type: tea Number of servings: 2 ROS ROS ED Constitutional Constitutional ED: Denies chills or fever(s) Eyes Eyes: Denies change in vision ENT ENT ED: Denies sore throat Cardiovascular Cardiovascular: Reports palpitations; Denies chest pain Respiratory/Chest Respiratory/Chest: Denies cough or dyspnea Gastrointestinal Gastrointestinal: Denies abdominal pain, diarrhea, nausea or vomiting Genitourinary Genitourinary ED: Denies dysuria Musculoskeletal Musculoskeletal: Denies back pain Integumentary Denies rash Neurologic Neurologic: Denies headache(s) or weakness Allergic/Immunologic Allergic/Immunologic ED: Denies urticaria EXAM Physical Exam Const Vital Signs: 08/02/21 14:41 08/02/21 14:44 08/02/21 14:48 Temperature 97.2 F L Temperature Source Temporal Pulse Rate 90 87 Respiratory Rate 16 19 H Respiratory Effort Normal Non-Labored Respiratory Pattern Normal Blood Pressure 139/59 H 151/49 H Blood Pressure Mean 85 83 Pulse Ox 97 98 Oxygen Delivery Method Room Air Room Air Positive well nourished and well developed General Appearance ED: well developed HEENT Reports moist mucous membranes Eyes PERRL and EOMs intact bilaterally Neck supple Chest Wall inspection of chest normal and palpation of chest normal Resp normal respiratory effort and clear to auscultation bilaterally Cardio regular rate and regular rhythm GI non-tender Palpation: soft Extremity normal to inspection Neuro oriented x3 Sensorium / Orientation: alert Psych mental status grossly normal Skin no rashes or lesions noted MDM MDM MDM Narrative Medical decision making narrative: Patient placed on compliance monitor. EKG, lab work, chest x-ray obtained. Lab Data Attestation: I reviewed the patient's lab results. Labs: Laboratory Results - last 24 hr 08/02/21 08/02/21 15:32 15:32 WBC 13.2 H RBC 4.57 Hgb 13.2 Hct 38.9 MCV 85.1 MCH 28.9 MCHC 33.9 RDW Std Deviation 48.5 H RDW Coeff of Agnieszka 15.9 H Plt Count 244 MPV 9.9 Immature Gran % (Auto) 1.000 H Neut % (Auto) 80.4 H Lymph % (Auto) 10.8 L [place] % (Auto) 7.3 Eos % (Auto) 0.3 Baso % (Auto) 0.2 Absolute Neuts (auto) 10.6 H Absolute Lymphs (auto) 1.42 Nucleated RBC % 0 Sodium 137 Potassium 3.8 Chloride 106 Carbon Dioxide 27.0 Anion Gap 4 L BUN 21 H Creatinine 0.73 Estim Creat Clear Calc 71.31 Est GFR (MDRD) Af Amer 101 Est GFR (MDRD) Non-Af 84 BUN/Creatinine Ratio 28.8 H Glucose 142 H Calcium 8.6 Troponin I High Sens 6 TSH 1.88 Radiography Chest X-Ray - ED: 1 View, Read by ED Physician, Normal, Heart, Lungs and Mediastinum Diagnostic Testing: Clinical Impression(s) from Imaging Studies Chest X-Ray 08/02/21 15:45 IMPRESSION: No radiographic evidence of acute cardiopulmonary disease. at 1615 Reported and signed by: Dwaine Melendrez MD Electronically Signed: Dwaine Melendrez MD at 16:14 EST , EKG Initial EKG: Attestation: I personally reviewed and interpreted this EKG as follows: Interpretation: Sinus Rhythm (Sinus 89 with no acute ischemia.) Treatment and Re-Evaluation Comments:: On repeat evaluation patient resting comfortably. She has been in sinus rhythm throughout her ED stay. Lab work reviewed and largely unremarkable. She does have a mild leukocytosis. Troponin and TSH are normal. Chest x-ray reveals no focal infiltrate. I did speak with the patient's primary care physician and updated him of the findings. Patient is scheduled to see him in the office this week for follow-up. Discharge Plan Triage Chief Complaint: Palpitations ED Provider: Layla Farooq Dx/Rx/DC Orders Clinical Impression: Palpitations Instructions: ED Palpitations Prescriptions: No Action metronidazole 0.75 % cream 1 applicatio TOPICAL DAILY 68 Days Qty: 135 RF: 0 cholecalciferol (vitamin D3) 50 mcg (2,000 unit) capsule 100 mcg PO DAILY RF: 0 prednisone 1 mg tablet 3 mg PO DAILY RF: 0 vitamin E Oil 1 applic topical QAM AND QHS RF: 0 flaxseed oil 1,000 mg capsule 1,000 mg PO DAILY RF: 0 levothyroxine 50 MCG tablet 50 mcg PO DAILY RF: 0 albuterol sulfate 90 mcg/actuation HFA aerosol inhaler 2 puff INHALATION DAILY PRN (Reason: Asthma) RF: 0 potassium chloride 20 mEq tablet,ER particles/crystals 20 meq PO DAILY RF: 0 omeprazole 40 mg capsule,delayed release(DR/EC) 80 mg PO DAILY RF: 0 acetaminophen 500 MG tablet 500 - 1,000 mg PO DAILY PRN PRN (Reason: Pain 1-10 Or Fever) RF: 0 hydrochlorothiazide 25 MG tablet 12.5 mg PO DAILY RF: 0 peg 400-propylene glycol 10 ML drops 1 drp EACH EYE BID RF: 0 aspirin 81 MG tablet 81 mg PO DAILY@2000 RF: 0 prednisone 20 mg tablet 20 mg PO DAILY 5 Days Qty: 5 RF: 0 diltiazem HCl 120 mg capsule,extended release 24hr 240 mg PO DAILY RF: 0 atorvastatin 80 mg tablet 80 mg PO QHS Qty: 90 RF: 3 clopidogrel 75 mg tablet 75 mg PO DAILY Qty: 30 RF: 11 losartan 25 mg tablet 25 mg PO QAM Qty: 90 RF: 3 Primary Care Provider: Mikael Ramires Referrals: Mikael Ramires [Primary Care Provider] - [facility] appointment Disposition Disposition: Home, Self Care
--- NOTE | 2021-08-02 15:45 | RAD_ITS ---
History: Chest pain EXAMINATION/TECHNIQUE: XR Chest 1 View: Portable COMPARISON: None FINDINGS: LINES/DEVICES: None. LUNGS: No consolidation, edema or effusion. No pneumothorax. MEDIASTINUM AND CARDIOVASCULAR STRUCTURES: Cardiac silhouette not enlarged. Central airways and mediastinal contour are unremarkable. BONES AND SOFT TISSUES: Unremarkable. RAD/Chest 1 View (Portable) IMPRESSION: No radiographic evidence of acute cardiopulmonary disease. at 1615 Reported and signed by: Dwaine Melendrez MD Electronically Signed: Dwaine Melendrez MD at 16:14 EST ,
[2021-08-02 15:51] LABS: Absolute Lymphocyte Count 1.42 X10^3/uL (0.83-4.51); Absolute Neutrophil Count 10.6 X10^3/uL (2.0-7.7); Basophil# 0.03 X10^3/uL; Basophil% 0.2 % (0-1); Eosinophil# 0.04 X10^3/uL; Eosinophils% 0.3 % (0-5); Hematocrit 38.9 % (37-47); Hemoglobin 13.2 g/dL (12.0-15.0); Lymphocyte # 1.42 X10^3/ul (0.83-4.51); Lymphocyte % 10.8 % (19-41); Mean Corp Hgb Conc 33.9 g/dL (32-36); Mean Corpuscular Hgb 28.9 pg (27.0-32.0); Mean Corpuscular Volume 85.1 fL (81-99); Mean Platelet Vol. 9.9 fl (6.2-12.0); Monocyte# 0.96 X10^3/uL; Monocyte% 7.3 % (0-10); NRBC Flagged by Analyzer 0 % (0-5); Neutrophil # 10.59 X10^3/uL (2.7-7.7); Neutrophil % 80.4 % (47-70); Platelet Count 244 K/mm3 (150-450); RBC Distribution Width CV 15.9 % (11.6-14.6); RBC Distribution Width SD 48.5 fl (35.1-43.9); Red Blood Count 4.57 M/mm3 (4.2-5.4); White Blood Count 13.2 K/mm3 (4.4-11.0)
[2021-08-02 16:10] LABS: Anion Gap 4 (5-15); BUN 21 mg/dL (7-18); BUN/Creat Ratio 28.8 RATIO (10-20); Calcium,Total 8.6 mg/dL (8.5-10.1); Chloride 106 mmol/L (98-107); Creatinine, Serum 0.73 mg/dL (0.55-1.02); EST Glomerular Filtration Rate 84 mL/min (>60); Est Glom Filt Rate - Afr Amer 101 mL/min (>60); Estimated Creatinine Clearance 71.31 ml/min; Glucose 142 mg/dL (74-106); Potassium 3.8 mmol/L (3.5-5.1); Sodium Level 137 mmol/L (136-145); Thyroid Stim Hormone (TSH) 1.88 uIU/mL (0.358-3.74); Troponin-I HS 6 pg/mL (3.0-54.0)
[2021-08-02 16:30] VITALS: BP 139/59; PULSE 78; RESP 18; O2SAT 96
== END 2021-08-02 16:44 | disposition home or self-care (01) ==
PROVIDERS: Emergency Provider Emergency Medicine; PCP Family Medicine; Visit Provider Emergency Medicine
DX: R00.2 Palpitations (principal); I10 Essential (primary) hypertension; E78.5 Hyperlipidemia, unspecified; I25.10 Atherosclerotic heart disease of native coronary artery without angina pectoris; E03.9 Hypothyroidism, unspecified; K58.9 Irritable bowel syndrome, unspecified; K21.9 Gastro-esophageal reflux disease without esophagitis; Z79.890 Hormone replacement therapy; Z79.82 Long term (current) use of aspirin; Z79.02 Long term (current) use of antithrombotics/antiplatelets; Z79.52 Long term (current) use of systemic steroids; I25.2 Old myocardial infarction; Z95.5 Presence of coronary angioplasty implant and graft
CPT/HCPCS: 71045; 80048; 84443; 84484; 85025; 93005; 99284; A4216

== ENCOUNTER 2021-08-08 12:23 | Inpatient (IN) | payer MEDICARE, SELFPAY ==
[2018-06-21 08:53] VITALS: BMI 38.3
[2021-08-08] VITALS (23 sets, daily range): BP systolic 94–168; BP diastolic 54–107; PULSE 83–132; RESP 14–28; TEMP 36.2–37.2; O2SAT 94–100; BMI 37.8; BMI 37.7
--- NOTE | 2021-08-08 12:47 | EKG12_ITS ---
Test Reason : PALP Blood Pressure : / mmHG Vent. Rate : 167 BPM Atrial Rate : 192 BPM P-R Int : 000 ms QRS Dur : 066 ms QT Int : 258 ms P-R-T Axes : 000 012 -41 degrees QTc Int : 430 ms Atrial fibrillation with premature ventricular or aberrantly conducted complexes Nonspecific ST abnormality Abnormal ECG Confirmed by BRIELLE KAY, BRANDON ([id number]), newspaper copy editor MINNA JACKSON ([id number]) on 08/11/2021 10:24:54 AM Referred By: [place] Confirmed By:BRANDON HANNAH MD
--- NOTE | 2021-08-08 12:51 | EDS_ITS ---
HPI History of Present Illness Chief Complaint: Palpitations Detail of Chief Complaint: Known A. fib. Informant: patient Onset/Context/Timing Onset: Days Activity at onset: sudden Timing: Intermittent Location: Substernal Current Severity: Mild Maximum Severity: Mild Worsened By: Nothing Relieved By: Nothing Associated Symptoms: Positive for Dyspnea and Palpitations; Negative for Nausea, Vomiting, Diaphoresis, Cough, Fever, Lightheadedness and Acid Reflux Narrative Narrative: 71-year-old female recently diagnosed with A. fib. Currently is on Eliquis. States she had COVID in June was diagnosed with A. fib July 27. She was in the ER a week ago was in A. fib and spontaneously converted. Her lab work at that time was unremarkable and she was discharged home. This past week she has had A. fib more consistently than not. And today developed some chest discomfort with it. She is a known history of CAD with a prior AR in 2 cardiac stents. Prior Similar Symptoms: Yes Recent Illness/Hospitalization: No PE Risk Factors: Negative for Recent Travel/Surgery, Recent Immobilization, Prior DVT or PE, Cancer and OCP + Smoking + >/=35 TAD Risk Factors: Negative for Marfan's Syndrome [facility] Medical History Acute ST elevation myocardial infarction Arthritis Asthma Atherosclerotic heart disease of [place] coronary artery without angina pectoris Essential hypertension GERD (gastroesophageal reflux disease) HLD (hyperlipidemia) HTN (hypertension) Hypothyroidism IBS (irritable bowel syndrome) Incontinence Knee pain Monoclonal gammopathy M?ni?re's disease Osteopenia Polyclonal gammopathy PVC's (premature ventricular contractions) Retinal tear of left eye SOB (shortness of breath) Temporal arteritis Ulnar neuropathy Vitamin D deficiency Home Medications levothyroxine 50 mcg PO DAILY 12/31/16 [History Last Taken 08/06/20] metronidazole 0.75 % topical cream 1 applicatio TOPICAL DAILY 68 Days #135 g 07/03/18 [History Last Taken 08/06/20] flaxseed oil 1,000 mg capsule 1,000 mg PO DAILY 07/03/20 [History Last Taken 08/06/20] atorvastatin 80 mg tablet 80 mg PO QHS #90 tab 07/18/20 [Rx Last Taken 08/05/20] acetaminophen 500 - 1,000 mg PO DAILY PRN PRN 08/06/20 [History Last Taken 08/01/20] aspirin 81 mg PO DAILY@199908/06/20 [History Last Taken 08/05/20] hydrochlorothiazide 12.5 mg PO DAILY 08/06/20 [History Last Taken 08/05/20] peg 400-propylene glycol 1 drp EACH EYE BID 08/06/20 [History Last Taken 1] potassium chloride 20 mEq tablet,extended release(part/cryst) 20 meq PO DAILY tablet 09/22/20 [History Last Taken Unknown] losartan 25 mg tablet 25 mg PO QAM #90 tab 03/04/21 [Rx Last Taken Unknown] prednisone 20 mg PO DAILY 5 Days #5 tab 06/30/21 [Rx Last Taken Unknown] albuterol sulfate 2.5 mg INHALATION Q6H 08/05/21 [History Last Taken Unknown] cholecalciferol (vitamin D3) 50 mcg (2,000 unit) capsule 4,000 unit PO DAILY cap 08/05/21 [History Last Taken Unknown] diltiazem HCl 120 mg capsule,extended release 24 hr 120 mg PO DAILY cap 08/05/21 [History Last Taken Unknown] omeprazole 40 mg capsule,delayed release 40 mg PO .COMPLEX cap 08/05/21 [History Last Taken Unknown] apixaban 5 mg tablet 5 mg PO BID #60 tab 08/06/21 [Rx Last Taken Unknown] Allergy/AdvReac Type Severity Reaction Status Date / Time clarithromycin [From Biaxin] Allergy Rash Verified 08/08/21 12:27 sulfamethoxazole Allergy Rash Verified 08/08/21 12:27 [From Bactrim] trimethoprim [From Bactrim] Allergy Rash Verified 08/08/21 12:27 carvedilol [From Coreg] AdvReac Intermediate Nausea, Verified 08/08/21 12:27 Lightheaded codeine AdvReac Upset Verified 08/08/21 12:27 Stomach lisinopril AdvReac cough Verified 08/08/21 12:27 Penicillins AdvReac Other Verified 08/08/21 12:27 Family History Mother Cancer skin Anemia Father Cancer Heart disease Surgical History History of delivery History of dilatation and curettage History of temporal artery biopsy (~12/2018) Hx of breast biopsy Hx of tonsillectomy Stented coronary artery (06/20/18) Social History Smoking Status: Never smoker alcohol intake: never caffeine: Yes Type: tea Number of servings: 2 ROS ROS ED ROS Narrative Denies recent illness. Chest pain associated with palpitations. Review of Systems ROS Unobtainable: Denies due to encephalopathy Constitutional Constitutional ED: Denies fever(s) Eyes Eyes: Reports none ENT ENT ED: Denies ear pain Cardiovascular Cardiovascular: Reports as per HPI, chest pain, palpitations and racing heartbeat Respiratory/Chest Respiratory/Chest: Reports dyspnea; Denies cough Gastrointestinal Gastrointestinal: Denies abdominal pain, diarrhea, nausea or vomiting Genitourinary Genitourinary ED: Denies dysuria Musculoskeletal Musculoskeletal: Denies myalgias Integumentary Denies rash Neurologic Neurologic: Denies headache(s) Psychiatric Psychiatric: Denies depression Endocrine Endocrinology: Denies polyuria Hematologic/Lymphatic Hematologic/Lymphatic: Denies easy bruising Allergic/Immunologic Allergic/Immunologic ED: Denies urticaria EXAM Physical Exam Narrative Exam Narrative: 71-year-old female currently in A. fib RVR rate about 170. No distress. Vital signs stable. Afebrile. Pulse ox 97% on room air no signs hypoxia. HEENT exam unremarkable. Neck nontender. No JVD. Lungs clear to auscultation bilaterally. Heart irregular irregular rate 170 no murmur. Appears to be A. fib on the monitor. Abdomen soft nontender. Moving all 4 extremities. Calves are nontender without edema or cords. Neurologically she is awake and alert with no focal motor deficits. Const Vital Signs: 08/08/21 12:24 08/08/21 12:29 08/08/21 12:53 Temperature 97.2 F L Temperature Source Temporal Pulse Rate 110 H Respiratory Rate 14 Respiratory Effort Normal Blood Pressure 168/79 H Blood Pressure Mean 108 Pulse Ox 97 Oxygen Delivery Method Room Air Room Air Positive well nourished, well developed and obese; Negative for cachectic, contractures or unkempt General Appearance ED: well developed and NAD; Negative for unkempt, cachectic or contractures Nutritional Appearance: obese; Negative for cachectic HEENT Reports moist mucous membranes normocephalic and atraumatic; Negative for trauma or tenderness Eyes PERRL and EOMs intact bilaterally Neck no lymphadenopathy, supple and no JVD General: Negative for tenderness Chest Wall inspection of chest normal and palpation of chest normal Resp normal respiratory effort and clear to auscultation bilaterally Effort and Inspection: respiratory distress Auscultation: Negative for rales, rhonchi or wheezes Cardio no murmurs; Negative for regular rate or regular rhythm Rate: tachycardic and other Other Details: A. fib with RVR rate about 170. GI normal to inspection, nondistended, normoactive bowel sounds, soft to palpation, non-tender, non-distended and no masses; Negative for hepatosplenomegaly Auscultation: Negative for hyperactive bowel sounds Back/Spine no CVA tenderness and no thoracic nor lumbar tenderness General Back: Negative for CVA tenderness Extremity normal to inspection General Extremety ED: Negative for edema or tenderness General Extremity: Negative for edema Neuro oriented x3 Sensorium / Orientation: awake, alert, oriented to person, oriented to place and oriented to time Motor Exam: strength 5/5 throughout; Negative for strength abnormal Psych mental status grossly normal Appearance: Negative for unkempt Attitude: No agitated Mood & Affect: Negative for depressed or tearful Skin no rashes or lesions noted and no wounds MDM MDM MDM Narrative Medical decision making narrative: 71-year-old female with recently diagnosed A. fib currently in A. fib RVR. Undergo cardiac work-up. She had a normal TSH done about a week ago. She will be started on IV Cardizem depending on if it controls her rate or not she may or may not need to go on a Cardizem drip and be admitted. Pain exam patient was given Cardizem heart rate still running between 110s to 120s she got go to the bathroom and had jumped up to 130. She will be started on a Cardizem drip. Her labs are unremarkable except for slightly elevated white count. Of the hospitalist on page for admission. Lab Data Attestation: I reviewed the patient's lab results. Lab results narrative: CBC shows an elevated white count of 16.9 with a hemoglobin 13.5 hematocrit of 43. Normal platelets. Electrolytes show potassium of 3.2 gap of 6 BUN of 19 troponins 10. Labs: Laboratory Results - last 24 hr 08/08/21 08/08/21 12:40 12:40 WBC 16.9 H RBC 4.93 Hgb 13.5 Hct 43.0 MCV 87.2 MCH 27.4 MCHC 31.4 L RDW Std Deviation 50.4 H RDW Coeff of Agnieszka 15.9 H Plt Count 207 MPV 9.8 Immature Gran % (Auto) 1.800 H Neut % (Auto) 63.2 Lymph % (Auto) 28.0 [place] % (Auto) 6.2 Eos % (Auto) 0.5 Baso % (Auto) 0.3 Absolute Neuts (auto) 10.7 H Absolute Lymphs (auto) 4.73 H Nucleated RBC % 0 Sodium 139 Potassium 3.2 L Chloride 105 Carbon Dioxide 28.0 Anion Gap 6 BUN 19 H Creatinine 0.83 Estim Creat Clear Calc 44.65 Est GFR (MDRD) Af Amer 87 Est GFR (MDRD) Non-Af 72 BUN/Creatinine Ratio 22.9 H Glucose 123 H Calcium 8.9 Troponin I High Sens 10 Radiography Chest X-Ray - ED: 1 View, Read by ED Physician, Heart, Lungs, Mediastinum, Bony Structures, No Acute Disease and Chronic Changes Diagnostic Testing: Chest x-ray, portable, single view interpreted myself shows no acute abnormality. Normal cardiac silhouette. No infiltrates. Rhythm Strip Rhythm Strip: A-fib Rate: 167 Ectopy: None EKG Initial EKG: Attestation: I personally reviewed and interpreted this EKG as follows: Interpretation: No Acute Injury Pattern and Atrial Fibrillation Comments: Atrial fibrillation with rapid ventricular rate of 167. No acute signs of AR nor ischemia. Discharge Plan Triage Chief Complaint: Palpitations ED Provider: Donis Ty Dx/Rx/DC Orders Clinical Impression: Atrial fibrillation with rapid ventricular response, History of coronary artery disease, History of AR (myocardial infarction) Prescriptions: No Action metronidazole 0.75 % cream 1 applicatio TOPICAL DAILY 68 Days Qty: 135 RF: 0 cholecalciferol (vitamin D3) 50 mcg (2,000 unit) capsule 4,000 unit PO DAILY RF: 0 flaxseed oil 1,000 mg capsule 1,000 mg PO DAILY RF: 0 albuterol sulfate 2.5 mg /3 mL (0.083 %) solution for nebulization 2.5 mg inhalation Q6H RF: 0 Eliquis 5 mg tablet 5 mg PO BID Qty: 60 RF: 11 levothyroxine 50 MCG tablet 50 mcg PO DAILY RF: 0 potassium chloride 20 mEq tablet,ER particles/crystals 20 meq PO DAILY RF: 0 omeprazole 40 mg capsule,delayed release(DR/EC) 40 mg PO .COMPLEX RF: 0 acetaminophen 500 MG tablet 500 - 1,000 mg PO DAILY PRN PRN (Reason: Pain 1-10 Or Fever) RF: 0 hydrochlorothiazide 25 MG tablet 12.5 mg PO DAILY RF: 0 peg 400-propylene glycol 10 ML drops 1 drp EACH EYE BID RF: 0 aspirin 81 MG tablet 81 mg PO DAILY@1999 RF: 0 prednisone 20 mg tablet 20 mg PO DAILY 5 Days Qty: 5 RF: 0 diltiazem HCl 120 mg capsule,extended release 24hr 120 mg PO DAILY RF: 0 atorvastatin 80 mg tablet 80 mg PO QHS Qty: 90 RF: 3 losartan 25 mg tablet 25 mg PO QAM Qty: 90 RF: 3 Primary Care Provider: Mikael Ramires Referrals: Mikael Ramires [Primary Care Provider] - Disposition Disposition: Acute Care Hospital [facility]
[2021-08-08 12:54] LABS: Absolute Lymphocyte Count 4.73 X10^3/uL (0.83-4.51); Absolute Neutrophil Count 10.7 X10^3/uL (2.0-7.7); Basophil# 0.05 X10^3/uL; Basophil% 0.3 % (0-1); Eosinophil# 0.08 X10^3/uL; Eosinophils% 0.5 % (0-5); Hemoglobin 13.5 g/dL (12.0-15.0); Lymphocyte # 4.73 X10^3/ul (0.83-4.51); Mean Corp Hgb Conc 31.4 g/dL (32-36); Mean Corpuscular Hgb 27.4 pg (27.0-32.0); Mean Corpuscular Volume 87.2 fL (81-99); Mean Platelet Vol. 9.8 fl (6.2-12.0); Monocyte# 1.05 X10^3/uL; Monocyte% 6.2 % (0-10); NRBC Flagged by Analyzer 0 % (0-5); Neutrophil # 10.66 X10^3/uL (2.7-7.7); Neutrophil % 63.2 % (47-70); POSITIVE MORPHOLOGY YES; Platelet Count 207 K/mm3 (150-450); RBC Distribution Width CV 15.9 % (11.6-14.6); RBC Distribution Width SD 50.4 fl (35.1-43.9); Red Blood Count 4.93 M/mm3 (4.2-5.4); White Blood Count 16.9 K/mm3 (4.4-11.0)
[2021-08-08 12:55] LABS: Differential Indicated SCAN CRITERIA MET
--- NOTE | 2021-08-08 12:55 | RAD_ITS ---
STUDY: X-RAY CHEST REASON FOR EXAM: Female, 71 years old. Chest pain TECHNIQUE: Single AP portable view of the chest. COMPARISON: 08/02/2021. FINDINGS: Mild elevation of the right hemidiaphragm. No focal infiltrate is seen. There is no demonstrated pleural abnormality. Normal size heart. Normal mediastinum and estelita. Normal visualized pulmonary arteries. Normal visualized aortic arch and descending thoracic aorta. Stable soft tissues and osseous structures. There is no demonstrated abnormality of the visualized soft tissue structures of the upper abdomen. RAD/Chest 1 View (Portable) IMPRESSION: No active pulmonary disease. Electronically Signed: Nathan Segal, at 13:44 EST ,
[2021-08-08] MEDS: dilTIAZem 25 MG/5 ML Vial IV BOLUS (13:06)
[2021-08-08 13:08] LABS: Anion Gap 6 (5-15); BUN 19 mg/dL (7-18); BUN/Creat Ratio 22.9 RATIO (10-20); Calcium,Total 8.9 mg/dL (8.5-10.1); Chloride 105 mmol/L (98-107); Creatinine, Serum 0.83 mg/dL (0.55-1.02); EST Glomerular Filtration Rate 72 mL/min (>60); Est Glom Filt Rate - Afr Amer 87 mL/min (>60); Estimated Creatinine Clearance 44.65 ml/min; Glucose 123 mg/dL (74-106); Potassium 3.2 mmol/L (3.5-5.1); Sodium Level 139 mmol/L (136-145); Troponin-I HS 10 pg/mL (3.0-54.0)
--- NOTE | 2021-08-08 13:36 | HP.PCM.HOS_ITS ---
[facility] - General General Date of Admission: 08/08/21 HPI Narrative CHELSEY TOLLIVER, is a 71 F with a PMH as outlined who presents via the ED on 08/08/2021 with a compalint of palpitations and shortness of breath. She was diagnosed with covid recently in June 2021 and says she was diagnosed [facility] at end of June 2021. She complains of palpitations and shortness of breath as well as some chest discomfort. She was seen in the ED a week ago in afib with RVR; she converted to NSR and so was discharged home. However, her symptoms recurred and she kept on having palpitations with chest pain so she came into the ED. In the ED, she was found to be in A. fib with RVR. Heart rate was initially in the 70s and she was given Cardizem bolus and started on a drip. At time of review, vitals were blood pressure 168/79, heart rate of 110 and respiratory rate of 14. Temperature was 97.2 Fahrenheit. She was saturating at 97% on room air. CBC showed hemoglobin of 13.5 and WBC of 16.9 wi th platelets of 207. Chemistry showed sodium of 139 with potassium of 3.2 and creatinine of 0.83. She has been admitted to be managed for A. fib with RVR. [facility] Medical History Acute ST elevation myocardial infarction Arthritis Asthma Atherosclerotic heart disease of [place] coronary artery without angina pectoris Essential hypertension GERD (gastroesophageal reflux disease) HLD (hyperlipidemia) HTN (hypertension) Hypothyroidism IBS (irritable bowel syndrome) Incontinence Knee pain Monoclonal gammopathy M?ni?re's disease Osteopenia Polyclonal gammopathy PVC's (premature ventricular contractions) Retinal tear of left eye SOB (shortness of breath) Temporal arteritis Ulnar neuropathy Vitamin D deficiency Home Medications levothyroxine 50 mcg PO DAILY 12/31/16 [History Last Taken 08/08/21] metronidazole 0.75 % topical cream 1 applicatio TOPICAL DAILY 68 Days #135 g 07/03/18 [History Last Taken 08/08/21] acetaminophen 500 - 1,000 mg PO DAILY PRN PRN 08/06/20 [History Last Taken 08/01/20] aspirin 81 mg PO DAILY@199908/06/20 [History Last Taken 08/08/21] hydrochlorothiazide 12.5 mg PO DAILY 08/06/20 [History Last Taken 08/08/21] peg 400-propylene glycol 1 drp EACH EYE BID 08/06/20 [History Last Taken 08/08/21] potassium chloride 20 mEq tablet,extended release(part/cryst) 20 meq PO DAILY tablet 09/22/20 [History Last Taken 08/08/21] losartan 25 mg tablet 25 mg PO QAM #90 tab 03/04/21 [Rx Last Taken 08/08/21] cholecalciferol (vitamin D3) 50 mcg (2,000 unit) capsule 4,000 unit PO DAILY cap 08/05/21 [History Last Taken 08/08/21] diltiazem HCl 120 mg capsule,extended release 24 hr 120 mg PO DAILY cap 08/05/21 [History Last Taken 08/08/21] omeprazole 40 mg capsule,delayed release 40 mg PO DAILY cap 08/05/21 [History Last Taken 08/08/21] apixaban [Eliquis] 5 mg PO BID 08/08/21 [History Last Taken 08/08/21] atorvastatin 80 mg PO QHS 08/08/21 [History Last Taken 08/07/21] prednisone 20 mg PO DAILY 08/08/21 [History Last Taken 08/08/21] Allergy/AdvReac Type Severity Reaction Status Date / Time clarithromycin [From Biaxin] Allergy Rash Verified 08/08/21 12:27 sulfamethoxazole Allergy Rash Verified 08/08/21 12:27 [From Bactrim] trimethoprim [From Bactrim] Allergy Rash Verified 08/08/21 12:27 carvedilol [From Coreg] AdvReac Intermediate Nausea, Verified 08/08/21 12:27 Lightheaded codeine AdvReac Upset Verified 08/08/21 12:27 Stomach lisinopril AdvReac cough Verified 08/08/21 12:27 Penicillins AdvReac Other Verified 08/08/21 12:27 Family History Mother Cancer skin Anemia Father Cancer Heart disease Surgical History History of delivery History of dilatation and curettage History of temporal artery biopsy (~12/2018) Hx of breast biopsy Hx of tonsillectomy Stented coronary artery (06/20/18) Social History Smoking Status: Never smoker alcohol intake: never caffeine: Yes Type: tea Number of servings: 2 ROS Constitutional Constitutional: Denies anorexia, fatigue, fever(s), malaise or weakness Eyes Eyes: Denies change in vision Cardiovascular Cardiovascular: Reports palpitations and rapid heart rate; Denies chest pain, dyspnea on exertion, edema, lightheadedness, orthopnea, paroxysmal nocturnal dyspnea or syncope Respiratory/Chest Respiratory/Chest: Denies cough, productive cough, shortness of breath at rest, shortness of breath with exertion or wheezing Gastrointestinal Gastrointestinal: Denies abdominal pain, diarrhea, dyspepsia, hematemesis, hematochezia, loose stools, melena, nausea or vomiting Genitourinary Genitourinary: Denies burning urination or dysuria Neurologic Neurologic: Denies confusion, dizziness, focal weakness, numbness, seizure-like activity, seizures or syncope Psychiatric Psychiatric: Denies anxiety or depression Endocrine Endocrinology: Denies change in body appearance Hematologic/Lymphatic Hematologic/Lymphatic: Denies anemia Vital Signs Vital Signs Vital Signs: 08/08/21 12:24 08/08/21 12:29 08/08/21 12:53 Temperature 97.2 F L Temperature Source Temporal Pulse Rate 110 H Respiratory Rate 14 Respiratory Effort Normal Blood Pressure 168/79 H Blood Pressure Mean 108 Pulse Ox 97 Oxygen Delivery Method Room Air Room Air Weight Weight: 194 lb 0.108 oz Body Mass Index (BMI) 37.8 Physical Exam Const alert, oriented x3 and no apparent distress General Appearance: cooperative HEENT normocephalic, head/scalp atraumatic and hearing grossly normal bilaterally Eyes PERRL, EOMs intact bilaterally and conjunctivae normal Neck no lymphadenopathy Resp normal respiratory effort, no retractions, no use of accessory muscles and clear to auscultation bilaterally Cardio Cardio Narrative: tachycardic, afib with RVR GI normal to inspection, nondistended, normoactive bowel sounds, soft to palpation, non-tender and non-distended Extremity normal to inspection, full ROM and no clubbing, cyanosis or edema Peripheral Pulses: Yes pulses 2+ throughout Skin no rashes or lesions noted Neuro oriented x3, CN's II-XII intact bilaterally and moves all extremities Sensorium / Orientation: awake and alert Psych affect normal Results Lab / Micro Data Result Diagrams: 08/08/21 12:40 08/08/21 12:40 Labs: Laboratory Results - last 24 hr 08/08/21 12:40: WBC 16.9 H, RBC 4.93, Hgb 13.5, Hct 43.0, MCV 87.2, MCH 27.4, MCHC 31.4 L, RDW Std Deviation 50.4 H, RDW Coeff of Agnieszka 15.9 H, Plt Count 207, MPV 9.8, Immature Gran % (Auto) 1.800 H, Neut % (Auto) 63.2, Lymph % (Auto) 28.0, [place] % (Auto) 6.2, Eos % (Auto) 0.5, Baso % (Auto) 0.3, Absolute Neuts (auto) 10.7 H, Absolute Lymphs (auto) 4.73 H, Nucleated RBC % 0 08/08/21 12:40: Sodium 139, Potassium 3.2 L, Chloride 105, Carbon Dioxide 28.0, Anion Gap 6, BUN 19 H, Creatinine 0.83, Estim Creat Clear Calc 44.65, Est GFR (MDRD) Af Amer 87, Est GFR (MDRD) Non-Af 72, BUN/Creatinine Ratio 22.9 H, Glucose 123 H, Calcium 8.9, Troponin I High Sens 10 Rhythm Strip Rhythm Strip: A-fib Rate: 167 Ectopy: None Assessment & Plan Assessment/Plan (1) Atrial fibrillation with rapid ventricular response: PLAN: #Afib with RVR * Admit to PCU with telemetry. Currently on Cardizem drip. We will continue. * Cycle troponins. EKG showed afib with RVR, and no acute ST changes * Will order 2D echo. * On Eliquis. We will continue. * TSH WNL at 1.88 from (08/02/2021) * #History of CAD s/p stents. * Have stents placed in the mid LAD and proximal diagonal artery. * On aspirin and high intensity statin. #GERD: On PPI #Hypertension: On losartan and hydrochlorothiazide #Hypothyroidism: On Synthroid #Hyperlipidemia: On statin DVT prophylaxis: Not indicated as patient is currently on Eliquis. CODE STATUS:full code * Patient counseled extensively about different types of CODE STATUS including full code, DNR CCA and DNR CCA. Patient elects to be full code. * Total [id number] time 17 minutes. Charges/Coding Visit Charges Inpatient E&M: 75766 Init Hosp L3 Procedures Hospitalists Procedures: 79985 Advncd Care Plan 30 Min
[2021-08-08 15:07] LABS: Troponin-I HS 10 pg/mL (3.0-54.0)
[2021-08-08 19:37] LABS: Troponin-I HS 12 pg/mL (3.0-54.0)
[2021-08-08] MEDS: Glycerin/Hypromellose/PEG400 15 ml Bottle 1 DRP EACH EYE (21:16)
[2021-08-08] MEDS: Aspirin E.C. 81 MG Tablet PO (21:16)
[2021-08-08] MEDS: Potassium Chloride Oral Tablet 20 MEQ 40 MEQ PO (21:16)
[2021-08-08] MEDS: APIXABAN 5 MG TABLET PO (21:16)
[2021-08-08] MEDS: Atorvastatin Calcium 80 MG Tablet PO (21:16)
[2021-08-09] VITALS (24 sets, daily range): BP systolic 93–119; BP diastolic 46–76; PULSE 62–89; RESP 16–28; TEMP 36.4–36.9; O2SAT 92–100
[2021-08-09] MEDS: Levothyroxine 50 MCG Tablet PO (06:10)
[2021-08-09 06:50] LABS: Absolute Lymphocyte Count 2.14 X10^3/uL (0.83-4.51); Absolute Neutrophil Count 9.2 X10^3/uL (2.0-7.7); Basophil# 0.02 X10^3/uL; Basophil% 0.2 % (0-1); Eosinophil# 0.03 X10^3/uL; Eosinophils% 0.2 % (0-5); Hematocrit 37.8 % (37-47); Hemoglobin 11.9 g/dL (12.0-15.0); Lymphocyte # 2.14 X10^3/ul (0.83-4.51); Lymphocyte % 17.3 % (19-41); Mean Corp Hgb Conc 31.5 g/dL (32-36); Mean Corpuscular Hgb 27.2 pg (27.0-32.0); Mean Corpuscular Volume 86.3 fL (81-99); Mean Platelet Vol. 9.8 fl (6.2-12.0); Monocyte# 0.81 X10^3/uL; Monocyte% 6.5 % (0-10); NRBC Flagged by Analyzer 0 % (0-5); Neutrophil # 9.19 X10^3/uL (2.7-7.7); Neutrophil % 74.1 % (47-70); Platelet Count 180 K/mm3 (150-450); RBC Distribution Width CV 15.9 % (11.6-14.6); RBC Distribution Width SD 50.4 fl (35.1-43.9); Red Blood Count 4.38 M/mm3 (4.2-5.4); White Blood Count 12.4 K/mm3 (4.4-11.0)
[2021-08-09 07:12] LABS: Anion Gap 6 (5-15); BUN 21 mg/dL (7-18); BUN/Creat Ratio 32.1 RATIO (10-20); Calcium,Total 8.3 mg/dL (8.5-10.1); Chloride 106 mmol/L (98-107); Creatinine, Serum 0.65 mg/dL (0.55-1.02); EST Glomerular Filtration Rate 95 mL/min (>60); Est Glom Filt Rate - Afr Amer 115 mL/min (>60); Estimated Creatinine Clearance 37.06 ml/min; Glucose 132 mg/dL (74-106); Sodium Level 138 mmol/L (136-145)
[2021-08-09] MEDS: Pantoprazole Sodium 40 MG Tablet PO (08:52)
[2021-08-09] MEDS: Cholecalciferol (VIT D3) 25 MCG TABLET (1,000 UNITS) 100 MCG PO (08:52)
[2021-08-09] MEDS: Potassium Chloride Oral Tablet 20 MEQ PO (08:52)
[2021-08-09] MEDS: APIXABAN 5 MG TABLET PO ×2 (08:52→21:00)
[2021-08-09] MEDS: predniSONE 20 MG Tablet PO (08:52)
[2021-08-09] MEDS: Glycerin/Hypromellose/PEG400 15 ml Bottle 1 DRP EACH EYE ×2 (08:53→21:00)
[2021-08-09] MEDS: Metoprolol Tartrate 25 MG Tablet PO ×2 (08:53→21:01)
--- NOTE | 2021-08-09 11:36 | EKG12_ITS ---
Test Reason : RHYTHM CHANGE Blood Pressure : / mmHG Vent. Rate : 057 BPM Atrial Rate : 057 BPM P-R Int : 152 ms QRS Dur : 064 ms QT Int : 402 ms P-R-T Axes : 039 013 034 degrees QTc Int : 391 ms Sinus bradycardia Low voltage QRS Borderline ECG Confirmed by BRIELLE KAY, BRANDON ([id number]), editor house organ MINNA JACKSON ([id number]) on 08/11/2021 1:20:44 PM Referred By: JORGE Confirmed By:BRANDON HANNAH MD
--- NOTE | 2021-08-09 13:38 | PN.HOSP_ITS ---
Subjective Subjective Patient seen and examined. She felt much better today. She had no active complaints. She has converted to sinus rhythm. Review of systems otherwise negative. She has remained hemodynamically stable. Objective Data Objective Data Vital Signs: Vital Signs Temp Pulse Resp BP Pulse Ox 98.4 F 65 20 H 93/54 L 94 08/09/21 10:00 08/09/21 11:00 08/09/21 10:00 08/09/21 10:00 08/09/21 10:00 Oxygen Flow Rate (L/min) 1 Oxygen Delivery Method Room Air Weight: 193 lb 4.786 oz Body Mass Index (BMI) 37.7 Intake & Output: Intake and Output for Last 24 Hours 08/07/21 08/08/21 08/09/21 23:59 23:59 23:59 Intake Total 716.41 / 728.16 844.33 / 844.33 Output Total 1125 / 1125 Balance 716.41 / 728.16 -280.67 / -280.67 Lab / Micro Data Result Diagrams: 08/09/21 06:28 08/09/21 06:28 Labs: Laboratory Results - last 24 hr 08/08/21 14:45: Troponin I High Sens 10 08/08/21 19:04: Troponin I High Sens 12 08/09/21 06:28: WBC 12.4 H, RBC 4.38, Hgb 11.9 L, Hct 37.8, MCV 86.3, MCH 27.2, MCHC 31.5 L, RDW Std Deviation 50.4 H, RDW Coeff of Agnieszka 15.9 H, Plt Count 180, MPV 9.8, Immature Gran % (Auto) 1.700 H, Neut % (Auto) 74.1 H, Lymph % (Auto) 17.3 L, [place] % (Auto) 6.5, Eos % (Auto) 0.2, Baso % (Auto) 0.2, Absolute Neuts (auto) 9.2 H, Absolute Lymphs (auto) 2.14, Nucleated RBC % 0 08/09/21 06:28: Sodium 138, Potassium 4.0, Chloride 106, Carbon Dioxide 26.0, Anion Gap 6, BUN 21 H, Creatinine 0.65, Estim Creat Clear Calc 37.06, Est GFR (MDRD) Af Amer 115, Est GFR (MDRD) Non-Af 95, BUN/Creatinine Ratio 32.1 H, Glucose 132 H, Calcium 8.3 L Radiography Diagnostic Testing: Radiology Impression Chest X-Ray 08/08/21 12:55 IMPRESSION: No active pulmonary disease. Electronically Signed: Nathan Segal, at 13:44 EST Reading Location ID and State: [facility] / [place] Tel , Service support , Rhythm Strip Rhythm Strip: A-fib Rate: 167 Ectopy: None Physical Exam Const alert, oriented x3 and no apparent distress General Appearance: cooperative Exam Limitations: no limitations HEENT normocephalic, head/scalp atraumatic, hearing grossly normal bilaterally and moist oral mucous membranes Head and Scalp: normocephalic Eyes PERRL, EOMs intact bilaterally and conjunctivae normal Neck no lymphadenopathy Resp normal respiratory effort, no retractions, no use of accessory muscles and clear to auscultation bilaterally Cardio regular rate, regular rhythm, S1 normal heart sound, S2 normal heart sound and no murmurs Cardio Narrative: has converted to NSR GI normal to inspection, nondistended, normoactive bowel sounds, soft to palpation, non-tender and non-distended Extremity normal to inspection, full ROM and no clubbing, cyanosis or edema Peripheral Pulses: Yes pulses 2+ throughout Skin no rashes or lesions noted Neuro oriented x3, CN's II-XII intact bilaterally and moves all extremities Sensorium / Orientation: awake and alert Psych affect normal Assessment & Plan Assessment/Plan (1) Atrial fibrillation with rapid ventricular response: PLAN: #Afib with RVR * has converted to normal sinus rhythm. * on cardizem drip; will wean off of cardizem and start on metoprolol. * for 2D echo tomorrow. * on eliquis. * * #History of CAD s/p stents. * Have stents placed in the mid LAD and proximal diagonal artery. * On aspirin and high intensity statin. #GERD: On PPI #Hypertension: On losartan and hydrochlorothiazide #Hypothyroidism: On Synthroid #Hyperlipidemia: On statin #Temporal arteritis: on prednisone DVT prophylaxis: Not indicated as patient is currently on Eliquis. CODE STATUS:full code * Charges/Coding Visit Charges Inpatient E&M: 03495 Subs Hosp L2
[2021-08-09] MEDS: Atorvastatin Calcium 80 MG Tablet PO (21:00)
[2021-08-09] MEDS: Aspirin E.C. 81 MG Tablet PO (21:00)
[2021-08-10 02:56] VITALS: PULSE 72
[2021-08-10 03:00] VITALS: BP 116/53; PULSE 73; RESP 18; TEMP 36.6; O2SAT 96
[2021-08-10] MEDS: Levothyroxine 50 MCG Tablet PO (05:27)
[2021-08-10 05:48] LABS: Absolute Lymphocyte Count 2.47 X10^3/uL (0.83-4.51); Absolute Neutrophil Count 8.4 X10^3/uL (2.0-7.7); Basophil# 0.02 X10^3/uL; Basophil% 0.2 % (0-1); Eosinophil# 0.07 X10^3/uL; Eosinophils% 0.6 % (0-5); Hematocrit 36.5 % (37-47); Hemoglobin 11.5 g/dL (12.0-15.0); Lymphocyte # 2.47 X10^3/ul (0.83-4.51); Lymphocyte % 20.4 % (19-41); Mean Corp Hgb Conc 31.5 g/dL (32-36); Mean Platelet Vol. 9.6 fl (6.2-12.0); Monocyte# 0.89 X10^3/uL; Monocyte% 7.3 % (0-10); NRBC Flagged by Analyzer 0 % (0-5); Neutrophil # 8.41 X10^3/uL (2.7-7.7); Neutrophil % 69.3 % (47-70); Platelet Count 168 K/mm3 (150-450); White Blood Count 12.1 K/mm3 (4.4-11.0)
--- NOTE | 2021-08-10 05:55 | ECHOCS_ITS ---
Reason For Study: AFib Procedure This was a 2D Doppler, Color Flow transthoracic echocardiogram. The study was technically difficult. Contrast injection was performed. Exam performed portable in patient room. Left Ventricle Normal LV size. Left ventricular systolic function is normal. The estimated ejection fraction is 65 %. Diastolic function is indeterminate. No regional wall motion abnormalities noted. Right Ventricle Normal RV size. Normal systolic function. Atria The left atrium is mildly enlarged. Normal right atrium. No doppler evidence for ASD. Mitral Valve There is mild mitral annular calcification. Normal mitral valve. Mild (1+) eccentric mitral valve insufficiency. Tricuspid Valve Normal tricuspid valve. Trivial tricuspid valve insufficiency. Right ventricular systolic pressure estimated to be 31 mmHg. Aortic Valve Trisinus/trileaflet aortic valve. Normal aortic valve. Pulmonic Valve The pulmonic valve is not well visualized. Trivial pulmonic valve insufficiency. Great Vessels Normal sized aortic root. Pericardium/Pleural No pericardial effusion. Medication Diluted definity 3ml given slow IV push to enhance endocardial definition. MMode/2D Measurements & Calculations LVIDd: 4.2 cm IVSd: 1.0 cm Ao root diam: 2.6 cm LVIDs: 2.7 cm LVPWd: 1.4 cm LA dimension: 4.1 cm RVDd: 3.4 cm FS: 36.0 % LAV(MOD-bp): 64.2 ml LA A4 area: 21.6 cm2 RA A4 area: 14.0 cm2 LAV(MOD-bp) Indexed: 34.9 ml/m2 LAV(MOD-sp2): 64.0 ml LAV(MOD-sp4): 59.8 ml Time Measurements MV dec time: 0.21 sec Doppler Measurements & Calculations MV E max gary: 104.8 cm/sec Lat Peak E' Gary: 8.5 cm/sec Med Peak E' Gary: 9.4 cm/sec MV A max gary: 146.4 cm/sec E/E' lat: 12.4 E/E' med: 11.2 MV E/A: 0.72 MV V2 max: 164.7 cm/sec MV P1/2t max gary: 136.8 cm/sec Ao V2 max: 163.1 cm/sec MV max P.8 mmHg MV P1/2t: 52.9 msec Ao max P.6 mmHg MV V2 mean: 87.7 cm/sec MV dec slope: 757.4 cm/sec2 MV mean P.7 mmHg MV V2 VTI: 42.0 cm MVA(P1/2t): 4.2 cm2 LV V1 max: 122.9 cm/sec PA V2 max: 90.5 cm/sec TR max gary: 264.1 cm/sec LV V1 max P.0 mmHg TR max P.9 mmHg ECHO/Echo Complete W/ Contrast Interpretation Summary The study was technically difficult. Contrast injection was performed. Left ventricular systolic function is normal. The estimated ejection fraction is 65 %. The left atrium is mildly enlarged. There is mild mitral annular calcification. Mild (1+) eccentric mitral valve insufficiency. Trivial tricuspid valve insufficiency. Trivial pulmonic valve insufficiency. Right ventricular systolic pressure estimated to be 31 mmHg. Diastolic function is indeterminate. Ordering Physician: Brittney Victoria Referring Physician: Mikael Ramires Performed By: Isai Michele RCS
[2021-08-10 06:15] LABS: Anion Gap 7 (5-15); BUN 23 mg/dL (7-18); Calcium,Total 8.1 mg/dL (8.5-10.1); Chloride 107 mmol/L (98-107); Creatinine, Serum 0.59 mg/dL (0.55-1.02); EST Glomerular Filtration Rate 107 mL/min (>60); Est Glom Filt Rate - Afr Amer 129 mL/min (>60); Estimated Creatinine Clearance 37.06 ml/min; Glucose 110 mg/dL (74-106); Potassium 4.1 mmol/L (3.5-5.1); Sodium Level 139 mmol/L (136-145)
[2021-08-10 07:28] VITALS: PULSE 69
[2021-08-10 08:33] VITALS: BP 124/67; PULSE 79; RESP 16; TEMP 36.3; O2SAT 97
[2021-08-10] MEDS: Glycerin/Hypromellose/PEG400 15 ml Bottle 1 DRP EACH EYE (08:36)
[2021-08-10 08:37] VITALS: BP 124/67; PULSE 79
[2021-08-10] MEDS: APIXABAN 5 MG TABLET PO (08:37)
[2021-08-10] MEDS: predniSONE 20 MG Tablet PO (08:37)
[2021-08-10] MEDS: Potassium Chloride Oral Tablet 20 MEQ PO (08:37)
[2021-08-10] MEDS: Pantoprazole Sodium 40 MG Tablet PO (08:37)
[2021-08-10] MEDS: Metoprolol Tartrate 25 MG Tablet PO (08:37)
[2021-08-10] MEDS: Cholecalciferol (VIT D3) 25 MCG TABLET (1,000 UNITS) 100 MCG PO (08:37)
--- NOTE | 2021-08-10 11:40 | PCM.DC ---
Discharge Instructions Diet Discharge Diet: No restrictions Activity Discharge Activity: Return to Normal Activity Dressing / Incision Call your doctor if your incision/area has: Continuous Slow Oozing Call your doctor if you observe: Fever of 101 or Higher, Chest pain, Increased palpitations (irregular heartbeat) and - Follow Up Care Test Results: Test results from this visit will be discussed in further detail at your follow-up appointment, if applicable. Discharge Plan Admission Admit Date/Time: 08/08/21 13:47 Primary Reason for Your Visit: atrial fibrillation with RVR Attending Provider: Maurilio Martins Primary Care Provider: Mikael Ramires Discharge Orders/Prescriptions Prescriptions: New metoprolol tartrate 25 mg Tablet 50 mg PO BID 30 Days Qty: 120 RF: 0 Continued metronidazole 0.75 % cream 1 applicatio TOPICAL DAILY 68 Days Qty: 135 RF: 0 cholecalciferol (vitamin D3) 50 mcg (2,000 unit) capsule 4,000 unit PO DAILY RF: 0 levothyroxine 50 MCG tablet 50 mcg PO DAILY RF: 0 potassium chloride 20 mEq tablet,ER particles/crystals 20 meq PO DAILY RF: 0 omeprazole 40 mg capsule,delayed release(DR/EC) 40 mg PO DAILY RF: 0 acetaminophen 500 MG tablet 500 - 1,000 mg PO DAILY PRN PRN (Reason: Pain 1-10 Or Fever) RF: 0 hydrochlorothiazide 25 MG tablet 12.5 mg PO DAILY RF: 0 peg 400-propylene glycol 10 ML drops 1 drp EACH EYE BID RF: 0 aspirin 81 MG tablet 81 mg PO DAILY@2000 RF: 0 atorvastatin 80 mg tablet 80 mg PO QHS RF: 0 prednisone 20 mg tablet 20 mg PO DAILY RF: 0 Eliquis 5 mg tablet 5 mg PO BID RF: 0 losartan 25 mg tablet 25 mg PO QAM Qty: 90 RF: 3 Discontinued diltiazem HCl 120 mg capsule,extended release 24hr 120 mg PO DAILY RF: 0 Referrals / Follow Up: Feliciano Sauceda MD [STAFF PHYSICIAN] - Within 1 Month Mikael Ramires [Primary Care Provider] - Within 1 Week Disposition Disposition (needs filled in before D/C Order can be placed): Home, Self Care
--- NOTE | 2021-08-10 11:45 | DS.PCM_ITS ---
Providers Date of Admission: 08/08/21 Primary Care Physician: Mikael Ramires Reason For Visit: AFIB WITH RVR Diagnosis Discharge Diagnosis (1) Atrial fibrillation with rapid ventricular response: Status: Acute Code(s): I48.91 - Unspecified atrial fibrillation Medications at Discharge Home Medications levothyroxine 50 mcg PO DAILY 12/31/16 metronidazole 0.75 % topical cream 1 applicatio TOPICAL DAILY 68 Days #135 g 07/03/18 acetaminophen 500 - 1,000 mg PO DAILY PRN PRN 08/06/20 aspirin 81 mg PO DAILY@199908/06/20 hydrochlorothiazide 12.5 mg PO DAILY 08/06/20 peg 400-propylene glycol 1 drp EACH EYE BID 08/06/20 potassium chloride 20 mEq tablet,extended release(part/cryst) 20 meq PO DAILY tablet 09/22/20 losartan 25 mg tablet 25 mg PO QAM #90 tab 03/04/21 cholecalciferol (vitamin D3) 50 mcg (2,000 unit) capsule 4,000 unit PO DAILY cap 08/05/21 omeprazole 40 mg capsule,delayed release 40 mg PO DAILY cap 08/05/21 Eliquis 5 mg PO BID 08/08/21 atorvastatin 80 mg PO QHS 08/08/21 prednisone 20 mg PO DAILY 08/08/21 metoprolol tartrate 50 mg PO BID 30 Days #120 tab 08/10/21 Hospital Course Operations None Procedures 2-D Echocardiogram Summary of Care Provided Minutes Spent on Discharge: 32 Hospital Course: 71-year-old female presents with palpitations and shortness of breath. Patient was found to be in atrial fibrillation with RVR. Patient was started on a diltiazem drip and then tachycardia did convert to normal sinus rhythm. Patient was on metoprolol 25mg twice daily. Increase to 50 twice daily upon discharge. Patient has tolerated that does have a history of nausea with carvedilol but that has been tolerating the metoprolol tartrate fine. 2D echocardiogram showed an EF of 65%. Patient is already anticoagulated with apixaban. Patient will be discharged home in stable condition. Physical Exam Const alert and no apparent distress Neck no lymphadenopathy Cardio regular rate, regular rhythm, S1 normal heart sound and S2 normal heart sound GI normal to inspection, nondistended, normoactive bowel sounds, soft to palpation, non-tender and non-distended Neuro oriented x3 Sensorium / Orientation: awake, alert and oriented to person Weight / BMI Weight Weight: 87.679 kg Body Mass Index (BMI) 37.7 ABG / Lab / Microbiology Data Result Diagrams: 08/10/21 05:06 08/10/21 05:06 Laboratory: Laboratory Results - last 24 hr 08/10/21 05:06: WBC 12.1 H, RBC 4.10 L, Hgb 11.5 L, Hct 36.5 L, MCV 89.0, MCH 28.0, MCHC 31.5 L, RDW Std Deviation 52.0 H, RDW Coeff of Agnieszka 16.0 H, Plt Count 168, MPV 9.6, Immature Gran % (Auto) 2.200 H, Neut % (Auto) 69.3, Lymph % (Auto) 20.4, [place] % (Auto) 7.3, Eos % (Auto) 0.6, Baso % (Auto) 0.2, Absolute Neuts (au to) 8.4 H, Absolute Lymphs (auto) 2.47, Nucleated RBC % 0 08/10/21 05:06: Sodium 139, Potassium 4.1, Chloride 107, Carbon Dioxide 25.0, Anion Gap 7, BUN 23 H, Creatinine 0.59, Estim Creat Clear Calc 37.06, Est GFR (MDRD) Af Amer 129, Est GFR (MDRD) Non-Af 107, BUN/Creatinine Ratio 39.0 H, Glucose 110 H, Calcium 8.1 L Radiography Diagnostic Testing: Radiology Impression Echocardiogram 08/10/21 05:55 Interpretation Summary The study was technically difficult. Contrast injection was performed. Left ventricular systolic function is normal. The estimated ejection fraction is 65 %. The left atrium is mildly enlarged. There is mild mitral annular calcification. Mild (1+) eccentric mitral valve insufficiency. Trivial tricuspid valve insufficiency. Trivial pulmonic valve insufficiency. Right ventricular systolic pressure estimated to be 31 mmHg. Diastolic function is indeterminate. Ordering Physician: Brittney Victoria Referring Physician: Mikael Ramires Performed By: Isai Michele RCS D/C Instructions Discharge Diet: No restrictions Call your doctor if your incision/area has: Continuous Slow Oozing Call your doctor if you observe: Fever of 101 or Higher, Chest pain, Increased palpitations (irregular heartbeat) and - Meaningful Use Info Meaningful Use Diagnoses (Choose all that apply): None applicable Discharge Plan Admission Admit Date/Time: 08/08/21 13:47 Primary Reason for Your Visit: atrial fibrillation with RVR Attending Provider: Maurilio Martins Primary Care Provider: Mikael Ramires Discharge Orders/Prescriptions Prescriptions: New metoprolol tartrate 25 mg Tablet 50 mg PO BID 30 Days Qty: 120 RF: 0 Continued metronidazole 0.75 % cream 1 applicatio TOPICAL DAILY 68 Days Qty: 135 RF: 0 cholecalciferol (vitamin D3) 50 mcg (2,000 unit) capsule 4,000 unit PO DAILY RF: 0 levothyroxine 50 MCG tablet 50 mcg PO DAILY RF: 0 potassium chloride 20 mEq tablet,ER particles/crystals 20 meq PO DAILY RF: 0 omeprazole 40 mg capsule,delayed release(DR/EC) 40 mg PO DAILY RF: 0 acetaminophen 500 MG tablet 500 - 1,000 mg PO DAILY PRN PRN (Reason: Pain 1-10 Or Fever) RF: 0 hydrochlorothiazide 25 MG tablet 12.5 mg PO DAILY RF: 0 peg 400-propylene glycol 10 ML drops 1 drp EACH EYE BID RF: 0 aspirin 81 MG tablet 81 mg PO DAILY@2000 RF: 0 atorvastatin 80 mg tablet 80 mg PO QHS RF: 0 prednisone 20 mg tablet 20 mg PO DAILY RF: 0 Eliquis 5 mg tablet 5 mg PO BID RF: 0 losartan 25 mg tablet 25 mg PO QAM Qty: 90 RF: 3 Discontinued diltiazem HCl 120 mg capsule,extended release 24hr 120 mg PO DAILY RF: 0 Referrals / Follow Up: Feliciano Sauceda MD [STAFF PHYSICIAN] - Within 1 Month Mikael Ramires [Primary Care Provider] - Within 1 Week Disposition Disposition (needs filled in before D/C Order can be placed): Home, Self Care Charges/Coding Visit Charges Inpatient E&M: 36141 Disch Hosp
--- NOTE | 2021-08-10 11:55 | CASEMGMT ---
RYAN METZGER assessment: Face to Face with patient for initial transition planning/care coordination assessment. RYAN METZGER introduced self and role at [facility], pt voices understanding and consents to assessment. Pt is sitting up in bed in no distress on room air. Pt is A/Ox4 and answers all questions appropriately. Care providers, pharmacy, and demographics verified. Presentation: Pt w/ recent Afib dx and felt self kick into afib Admitting dx: Afib RVR PCP: eKyla Specialists: Sohail, cardio; Ankit, opth; [facility] in [place] Preferred Pharmacy: [facility] Insurance: [employer] Prescription Benefit: [employer] Living Will/HPOA: Pt does have LW/HPOA and is aware that they are not on file at [facility]. Pt states her , Tae Beltran, is HPOA. LNOK: Tae Beltran, ; Gabino Beltran, son Living Arrangements: Pt lives with in 1 story home with basement and states no concerns at home. Pt is independent with ADL's. Transportation: Pt drives and states no transportation concerns. DME/HHC: Pt has the following DME: cane, walker, w/c, walk in tub, shower chair, grab bars, and nebulizer. Pt states no need for any further DME. Pt states no hx of HHC or SNF. Pt states no concerns with going home at time of discharge. Pt is retired. Pt states does not smoke cigarettes or drink ETOH. Pt states no further concerns/needs. CM to follow for any further discharge planning/needs. Advised pt to ask for CM if any further questions/concerns/needs arise, voices understanding. Pt Goal: Home Plan: [place] RYAN [place]
[2021-08-10 12:48] VITALS: BP 105/51; PULSE 78; RESP 16; TEMP 36.6; O2SAT 98
== END 2021-08-10 14:09 | disposition home or self-care (01) | DRG 310 ==
LOC: ED 13:42 → PCU 19:59
PROVIDERS: Admitting Provider Student in an Organized Health Care Education/Training Program; Emergency Provider Emergency Medicine; PCP Family Medicine
DX: I48.91 Unspecified atrial fibrillation (principal); E03.9 Hypothyroidism, unspecified; I25.10 Atherosclerotic heart disease of native coronary artery without angina pectoris; I10 Essential (primary) hypertension; E78.5 Hyperlipidemia, unspecified; K21.9 Gastro-esophageal reflux disease without esophagitis; I25.2 Old myocardial infarction; M19.90 Unspecified osteoarthritis, unspecified site; J45.909 Unspecified asthma, uncomplicated; K58.9 Irritable bowel syndrome, unspecified; Z79.82 Long term (current) use of aspirin; Z79.01 Long term (current) use of anticoagulants; Z86.16 Personal history of COVID-19; Z95.5 Presence of coronary angioplasty implant and graft; Z79.890 Hormone replacement therapy; Z79.52 Long term (current) use of systemic steroids
CPT/HCPCS: 36415; 71045; 80048; 84484; 85025; 93005; 93306; 97802; 99285; Q9957; A4216; C8929

== ENCOUNTER 2021-08-16 12:35 | Emergency (ER) | payer MEDICARE, SELFPAY ==
[2018-06-21 08:53] VITALS: BMI 38.3
[2021-08-16 12:36] VITALS: BP 115/82; PULSE 82; RESP 15; TEMP 36.1; O2SAT 97; BMI 37.5
[2021-08-16 13:25] VITALS: PULSE 123
--- NOTE | 2021-08-16 13:40 | EKG12_ITS ---
Test Reason : PALPS Blood Pressure : / mmHG Vent. Rate : 139 BPM Atrial Rate : 047 BPM P-R Int : 000 ms QRS Dur : 064 ms QT Int : 268 ms P-R-T Axes : 000 002 038 degrees QTc Int : 407 ms Atrial fibrillation Abnormal ECG Confirmed by BRIELLE KAY, BRANDON ([id number]), medical transcription editor MINNA JACKSON ([id number]) on 08/20/2021 8:36:20 AM Referred By: PENELOPE Confirmed By:BRANDON HANNAH MD
--- NOTE | 2021-08-16 13:40 | RAD_ITS ---
STUDY: X-RAY CHEST REASON FOR EXAM: Female, 71 years old. Palpitations TECHNIQUE: Single AP portable view of the chest. COMPARISON: 08/08/2021 FINDINGS: The lungs are clear and expanded. There is no demonstrated pleural abnormality. Normal size heart. Normal mediastinum and estelita. Normal visualized pulmonary arteries. Normal visualized aortic arch and descending thoracic aorta. Normal visualized thoracic spine. Normal visualized ribs, clavicles, and shoulders. There is no demonstrated abnormality of the visualized soft tissue structures of the upper abdomen. RAD/Chest 1 View (Portable) IMPRESSION: Normal x-ray examination of the chest. Electronically Signed: Chico Jacobs MD at 14:10 EST ,
[2021-08-16 13:53] LABS: Absolute Lymphocyte Count 4.06 X10^3/uL (0.83-4.51); Absolute Neutrophil Count 8.6 X10^3/uL (2.0-7.7); Basophil# 0.04 X10^3/uL; Basophil% 0.3 % (0-1); Eosinophil# 0.09 X10^3/uL; Eosinophils% 0.6 % (0-5); Hematocrit 39.8 % (37-47); Hemoglobin 12.7 g/dL (12.0-15.0); Lymphocyte # 4.06 X10^3/ul (0.83-4.51); Lymphocyte % 28.8 % (19-41); Mean Corp Hgb Conc 31.9 g/dL (32-36); Mean Corpuscular Hgb 27.9 pg (27.0-32.0); Mean Corpuscular Volume 87.5 fL (81-99); Monocyte# 1.03 X10^3/uL; Monocyte% 7.3 % (0-10); NRBC Flagged by Analyzer 0 % (0-5); Neutrophil # 8.63 X10^3/uL (2.7-7.7); Neutrophil % 61.3 % (47-70); POSITIVE MORPHOLOGY YES; Platelet Count 205 K/mm3 (150-450); RBC Distribution Width CV 16.3 % (11.6-14.6); RBC Distribution Width SD 51.8 fl (35.1-43.9); Red Blood Count 4.55 M/mm3 (4.2-5.4); White Blood Count 14.1 K/mm3 (4.4-11.0)
[2021-08-16 14:02] VITALS: BP 100/62; PULSE 110; RESP 20; O2SAT 93
[2021-08-16 14:04] LABS: Differential Indicated SCAN CRITERIA MET
[2021-08-16 14:08] LABS: Anion Gap 5 (5-15); BNP,B-Type NATRIURETIC PEPTIDE 150.5 pg/mL (0-100); BUN 20 mg/dL (7-18); BUN/Creat Ratio 28.2 RATIO (10-20); Calcium,Total 8.6 mg/dL (8.5-10.1); Chloride 108 mmol/L (98-107); Creatinine, Serum 0.71 mg/dL (0.55-1.02); EST Glomerular Filtration Rate 86 mL/min (>60); Est Glom Filt Rate - Afr Amer 104 mL/min (>60); Estimated Creatinine Clearance 37.06 ml/min; Glucose 95 mg/dL (74-106); Potassium 3.4 mmol/L (3.5-5.1); Sodium Level 140 mmol/L (136-145); Troponin-I HS 6 pg/mL (3.0-54.0)
[2021-08-16] MEDS: Metoprolol Tartrate 5 MG/5 ML Vial IV ×3 (14:15→16:13)
[2021-08-16 14:23] LABS: Differential Comment SCANNED; Reactive Lymphocyte 1+
[2021-08-16 14:32] VITALS: BP 103/63; PULSE 115; RESP 16; O2SAT 95
--- NOTE | 2021-08-16 14:32 | EDS_ITS ---
HPI History of Present Illness Chief Complaint: Palpitations Informant: patient Narrative Narrative: Patient is a 71-year-old female with recent diagnosis of hospitalization for new onset atrial fibrillation with RVR presenting with palpitations and chest discomfort. Patient was discharged 1 week ago. She states she been feeling better but over the past weeks been feeling worse. Her heart rate is also been going up. Yesterday she had episode of chest discomfort that radiated to her jaw. She states he has been taking metoprolol 25 mg twice a day. Discharge MAR shows that patient was was to be on metoprolol 50 mg twice a day. She states has been compliant with her Eliquis. Denies any new or worsening swelling. Not sure if she is any weight gain but does not think so. No other complaints at this time. 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?re's disease Osteopenia Polyclonal gammopathy PVC's (premature ventricular contractions) Retinal tear of left eye SOB (shortness of breath) Temporal arteritis Ulnar neuropathy Vitamin D deficiency Home Medications levothyroxine 50 mcg PO DAILY 12/31/16 [History Last Taken 08/08/21] metronidazole 0.75 % topical cream 1 applicatio TOPICAL DAILY 68 Days #135 g 07/03/18 [History Last Taken 08/08/21] acetaminophen 500 - 1,000 mg PO DAILY PRN PRN 08/06/20 [History Last Taken 08/01/20] aspirin 81 mg PO DAILY@2000 08/06/20 [History Last Taken 08/08/21] hydrochlorothiazide 12.5 mg PO DAILY 08/06/20 [History Last Taken 08/08/21] peg 400-propylene glycol 1 drp EACH EYE BID 08/06/20 [History Last Taken 0 08/08/21] potassium chloride 20 mEq tablet,extended release(part/cryst) 20 meq PO DAILY tablet 09/22/20 [History Last Taken 08/08/21] losartan 25 mg tablet 25 mg PO QAM #90 tab 03/04/21 [Rx Last Taken 08/08/21] cholecalciferol (vitamin D3) 50 mcg (2,000 unit) capsule 4,000 unit PO DAILY cap 08/05/21 [History Last Taken 08/08/21] omeprazole 40 mg capsule,delayed release 40 mg PO DAILY cap 08/05/21 [History Last Taken 08/08/21] Eliquis 5 mg PO BID 08/08/21 [History Last Taken 08/08/21] atorvastatin 80 mg PO QHS 08/08/21 [History Last Taken 08/07/21] prednisone 20 mg PO DAILY 08/08/21 [History Last Taken 08/08/21] metoprolol tartrate 50 mg PO BID 30 Days #120 tab 08/10/21 [Rx Last Taken Unknown] Allergy/AdvReac Type Severity Reaction Status Date / Time clarithromycin [From Biaxin] Allergy Rash Verified 08/16/21 13:59 sulfamethoxazole Allergy Rash Verified 08/16/21 13:59 [From Bactrim] trimethoprim [From Bactrim] Allergy Rash Verified 08/16/21 13:59 carvedilol [From Coreg] AdvReac Intermediate Nausea, Verified 08/16/21 13:59 Lightheaded codeine AdvReac Upset Verified 08/16/21 13:59 Stomach lisinopril AdvReac cough Verified 08/16/21 13:59 Penicillins AdvReac Other Verified 08/16/21 13:59 Family History Mother Cancer skin Anemia Father Cancer Heart disease Surgical History History of delivery History of dilatation and curettage History of temporal artery biopsy (~12/2018) Hx of breast biopsy Hx of tonsillectomy Stented coronary artery (06/20/18) Social History Smoking Status: Never smoker alcohol intake: never caffeine: Yes Type: tea Number of servings: 2 ROS ROS ED Constitutional Constitutional ED: Denies chills or fever(s) Eyes Eyes: Denies change in vision ENT ENT ED: Denies rhinorrhea or sore throat Cardiovascular Cardiovascular: Reports chest pain and palpitations Respiratory/Chest Respiratory/Chest: Reports dyspnea; Denies cough Gastrointestinal Gastrointestinal: Denies abdominal pain or vomiting Musculoskeletal Musculoskeletal: Denies arthralgias or myalgias Neurologic Neurologic: Reports weakness; Denies headache(s) EXAM Physical Exam Const Vital Signs: 08/16/21 12:36 08/16/21 13:25 08/16/21 14:02 Temperature 96.9 F L Temperature Source Temporal Pulse Rate 82 123 H 110 H Respiratory Rate 15 20 H Blood Pressure 115/82 H 100/62 Blood Pressure Mean 93 74 Pulse Ox 97 93 Oxygen Delivery Method Room Air Room Air 08/16/21 14:32 08/16/21 16:15 08/16/21 17:42 Temperature Temperature Source Pulse Rate 115 H 114 H 113 H Respiratory Rate 16 19 H 22 H Blood Pressure 103/63 114/70 96/65 Blood Pressure Mean 76 84 75 Pulse Ox 95 93 92 Oxygen Delivery Method Room Air Room Air Room Air Positive well nourished, well developed and obese General Appearance ED: well developed Nutritional Appearance: obese HEENT Reports moist mucous membranes Negative for trauma Eyes PERRL and EOMs intact bilaterally Neck supple and no JVD Chest Wall inspection of chest normal Resp normal respiratory effort and clear to auscultation bilaterally Resp Narrative: no crackels Auscultation: Negative for wheezes Cardio no murmurs Rate: tachycardic Rhythm: abnormal rhythm irregularly irregular GI normal to inspection, nondistended, normoactive bowel sounds and non-tender Palpation: soft Back/Spine no CVA tenderness Extremity normal to inspection Extremity Narrative: 1+ edema lower extremities General Extremety ED: Negative for tenderness Psych mental status grossly normal Skin no rashes or lesions noted and no wounds MDM MDM MDM Narrative Medical decision making narrative: Patient evaluated for palpitations. Patient is found to be atrial fibrillation with RVR. Patient was just discharged from the hospital this week for atrial fibrillation with RVR. She was discharged on metoprolol 50 mg twice daily but she is only been taking it as 25 mg twice a day. This is likely why she has had poor rate control. Patient is given total 3 doses of 5 mg IV push metoprolol with rate control. She is given a 50 mg dose of the Toprol tartrate. Work-up is largely unremarkable. She has a mild leukocytosis of 14.1 but no obvious source of infection. Chest x-ray is normal. No signs of fluid overload on physical exam or laboratory findings. Her BNP is mildly elevated at 150 however I suspect this is more from her atrial fibrillation with RVR and fluid overload. I suspect patient's worsening symptoms are due to her accidental medication mismanagement. Case is discussed with cardiology on-call who is agreeable with having her take her proper dose of metoprolol and be discharged home. Patient and spouse are agreeable this plan of care as well. Patient discharged home and has follow-up with cardiology in 2 days. Lab Data Attestation: I reviewed the patient's lab results. Labs: Laboratory Results - last 24 hr 08/16/21 08/16/21 08/16/21 13:20 13:20 13:20 WBC 14.1 H RBC 4.55 Hgb 12.7 Hct 39.8 MCV 87.5 MCH 27.9 MCHC 31.9 L RDW Std Deviation 51.8 H RDW Coeff of Agnieszka 16.3 H Plt Count 205 MPV 10.0 Immature Gran % (Auto) 1.700 H Neut % (Auto) 61.3 Lymph % (Auto) 28.8 [place] % (Auto) 7.3 Eos % (Auto) 0.6 Baso % (Auto) 0.3 Absolute Neuts (auto) 8.6 H Absolute Lymphs (auto) 4.06 Nucleated RBC % 0 Differential Comment SCANNED Reactive Lymphocytes 1+ Sodium 140 Potassium 3.4 L Chloride 108 H Carbon Dioxide 27.0 Anion Gap 5 BUN 20 H Creatinine 0.71 Estim Creat Clear Calc 37.06 Est GFR (MDRD) Af Amer 104 Est GFR (MDRD) Non-Af 86 BUN/Creatinine Ratio 28.2 H Glucose 95 Calcium 8.6 Troponin I High Sens 6 B-Natriuretic Peptide 150.5 H Radiography Chest X-Ray - ED: 1 View, Read by ED Physician, Read by Radiologist and No Acute Disease Diagnostic Testing: Clinical Impression(s) from Imaging Studies Chest X-Ray 08/16/21 13:40 IMPRESSION: Normal x-ray examination of the chest. Electronically Signed: Chico Jacobs MD at 14:10 EST , Rhythm Strip Rhythm Strip: A-fib Rate: 140 Ectopy: None EKG Initial EKG: Attestation: I personally reviewed and interpreted this EKG as follows: Interpretation: Atrial Fibrillation Comments: Atrial fibrillation with rapid ventricular response at a rate of 139 Normal axis Normal intervals Normal ST segments Discharge Plan Triage Chief Complaint: Palpitations ED Provider: Sumi Montes De Oca Dx/Rx/DC Orders Clinical Impression: Atrial fibrillation with rapid ventricular response, Tachycardia Instructions: ED AFIB Prescriptions: No Action metronidazole 0.75 % cream 1 applicatio TOPICAL DAILY 68 Days Qty: 135 RF: 0 cholecalciferol (vitamin D3) 50 mcg (2,000 unit) capsule 4,000 unit PO DAILY RF: 0 levothyroxine 50 MCG tablet 50 mcg PO DAILY RF: 0 potassium chloride 20 mEq tablet,ER particles/crystals 20 meq PO DAILY RF: 0 omeprazole 40 mg capsule,delayed release(DR/EC) 40 mg PO DAILY RF: 0 acetaminophen 500 MG tablet 500 - 1,000 mg PO DAILY PRN PRN (Reason: Pain 1-10 Or Fever) RF: 0 hydrochlorothiazide 25 MG tablet 12.5 mg PO DAILY RF: 0 peg 400-propylene glycol 10 ML drops 1 drp EACH EYE BID RF: 0 aspirin 81 MG tablet 81 mg PO DAILY@2000 RF: 0 atorvastatin 80 mg tablet 80 mg PO QHS RF: 0 prednisone 20 mg tablet 20 mg PO DAILY RF: 0 Eliquis 5 mg tablet 5 mg PO BID RF: 0 metoprolol tartrate 25 mg Tablet 50 mg PO BID 30 Days Qty: 120 RF: 0 losartan 25 mg tablet 25 mg PO QAM Qty: 90 RF: 3 Primary Care Provider: Mikael Ramires Referrals: Mikael Ramires [Primary Care Provider] - Activity Restrictions/Additional Instructions: Please follow-up with your customer support manager office as scheduled on Tuesday. Take 50 mg total every morning and every evening. Tonight if your heart rate is below 60, do not take your metoprolol. If your HR is below 100 only take 25 mg (1 tablet) of Metoprolol. If your Blood pressure is below 90 systolic (the top number) do not take the metoprolol. Return if your heart rate goes above 120 and he cannot get it down with your metoprolol medication and rest. Return to the ER if your blood pressure is going below 90 and you are not feeling well. Disposition Disposition: Home, Self Care Discharge Date/Time: 08/16/21 19:09
[2021-08-16] MEDS: Metoprolol Tartrate 25 MG Tablet 50 MG PO (16:13)
[2021-08-16 16:15] VITALS: BP 114/70; PULSE 114; RESP 19; O2SAT 93
[2021-08-16 17:42] VITALS: BP 96/65; PULSE 113; RESP 22; O2SAT 92
== END 2021-08-16 19:09 | disposition home or self-care (01) ==
PROVIDERS: Emergency Provider Emergency Medicine; PCP Family Medicine; Visit Provider Emergency Medicine
DX: I48.91 Unspecified atrial fibrillation (principal); T44.7X6A Underdosing of beta-adrenoreceptor antagonists, initial encounter; Z91.138 Patient's unintentional underdosing of medication regimen for other reason; I10 Essential (primary) hypertension; E87.70 Fluid overload, unspecified; I25.10 Atherosclerotic heart disease of native coronary artery without angina pectoris; D72.829 Elevated white blood cell count, unspecified; E78.5 Hyperlipidemia, unspecified; R06.00 Dyspnea, unspecified; J45.909 Unspecified asthma, uncomplicated; K58.9 Irritable bowel syndrome, unspecified; K21.9 Gastro-esophageal reflux disease without esophagitis; E03.9 Hypothyroidism, unspecified; Z79.82 Long term (current) use of aspirin; Z79.01 Long term (current) use of anticoagulants; Z79.52 Long term (current) use of systemic steroids; Z79.899 Other long term (current) drug therapy; I25.2 Old myocardial infarction
CPT/HCPCS: 71045; 80048; 83880; 84484; 85025; 93005; 96374; 96376; 99285; A4216

== ENCOUNTER 2021-08-26 04:03 | Emergency (ER) | payer MEDICARE, SELFPAY ==
[2018-06-21 08:53] VITALS: BMI 38.3
[2021-08-26 04:05] VITALS: BP 157/64; PULSE 67; RESP 14; TEMP 36.5; O2SAT 99; BMI 39.1
--- NOTE | 2021-08-26 04:27 | RAD_ITS ---
HISTORY: edema EXAMINATION/TECHNIQUE: XR Chest 2 Views COMPARISON: AP chest x-ray from 08/16/21 FINDINGS: LINES/DEVICES: sports director leads. LUNGS: No focal airspace consolidation. No pulmonary edema. No pleural effusion. No pneumothorax. Stable mildly elevated right hemidiaphragm. MEDIASTINUM AND CARDIOVASCULAR STRUCTURES: Cardiac silhouette not enlarged. Central airways and mediastinal contour are unremarkable. BONES AND SOFT TISSUES: No acute findings. RAD/Chest PA and Lateral IMPRESSION: No radiographic evidence of acute cardiopulmonary disease. at 0501 Reported and signed by: Mikael Myers MD Electronically Signed: Mikael Myers MD at 5:00 EST ,
--- NOTE | 2021-08-26 04:30 | EX.ED.DYSGE1 ---
HPI History of Present Illness Chief Complaint: Edema Narrative Narrative: Patient is a 71-year-old female who was recently admitted to the hospital secondary to A. fib with RVR and underwent cardiac testing. She states she was told her ejection fraction is 65% and that her echo was normal. She states because of this she was taken off her hydrochlorothiazide which she reports she has been on for years. She states over the past 3 to 4 days she has noticed increased bilateral leg swelling. She denies any chest pain or shortness of breath. She states she continues to take her Eliquis as directed for her A. fib however because of the swelling she was concerned and presents for evaluation. [facility] Medical History Acute ST elevation myocardial infarction Arthritis Asthma Atherosclerotic heart disease of [place] coronary artery without angina pectoris Essential hypertension GERD (gastroesophageal reflux disease) GERD (gastroesophageal reflux disease) History of coronary artery disease History of [place] (myocardial infarction) HLD (hyperlipidemia) HTN (hypertension) Hypothyroidism IBS (irritable bowel syndrome) Incontinence Knee pain Monoclonal gammopathy Monoclonal gammopathy of unknown significance (MGUS) M?ni?re's disease Osteoarthritis of left shoulder Osteopenia Polyclonal gammopathy PVC's (premature ventricular contractions) Retinal tear of left eye SOB (shortness of breath) Temporal arteritis Ulnar neuropathy Vitamin D deficiency Home Medications levothyroxine 50 mcg PO DAILY 12/31/16 [History Last Taken 08/08/21] metronidazole 0.75 % topical cream 1 applicatio TOPICAL DAILY 68 Days #135 g 07/03/18 [History Last Taken 08/08/21] acetaminophen 500 - 1,000 mg PO DAILY PRN PRN 08/06/20 [History Last Taken 08/01/20] aspirin 81 mg PO DAILY@2000 08/06/20 [History Last Taken 08/08/21] peg 400-propylene glycol 1 drp EACH EYE BID 08/06/20 [History Last Taken 08/08/21] potassium chloride 20 mEq tablet,extended release(part/cryst) 20 meq PO DAILY tablet 09/22/20 [History Last Taken 08/08/21] losartan 25 mg tablet 25 mg PO QAM #90 tab 03/04/21 [Rx Last Taken 08/08/21] cholecalciferol (vitamin D3) 50 mcg (2,000 unit) capsule 4,000 unit PO DAILY cap 08/05/21 [History Last Taken 08/08/21] omeprazole 40 mg capsule,delayed release 40 mg PO DAILY cap 08/05/21 [History Last Taken 08/08/21] Eliquis 5 mg PO BID 08/08/21 [History Last Taken 08/08/21] atorvastatin 80 mg PO QHS 08/08/21 [History Last Taken 08/07/21] prednisone 20 mg PO DAILY 08/08/21 [History Last Taken 08/08/21] diltiazem HCl 120 mg capsule,extended release 24 hr 120 mg PO DAILY #90 cap 08/17/21 [Rx Last Taken Unknown] metoprolol tartrate 50 mg tablet 50 mg PO BID #180 tab 08/17/21 [Rx Last Taken Unknown] Allergy/AdvReac Type Severity Reaction Status Date / Time clarithromycin [From Biaxin] Allergy Rash Verified 08/18/21 15:53 sulfamethoxazole Allergy Rash Verified 08/18/21 15:53 [From Bactrim] trimethoprim [From Bactrim] Allergy Rash Verified 08/18/21 15:53 carvedilol [From Coreg] AdvReac Intermediate Nausea, Verified 08/18/21 15:53 Lightheaded codeine AdvReac Upset Verified 08/18/21 15:53 Stomach lisinopril AdvReac cough Verified 08/18/21 15:53 Penicillins AdvReac Other Verified 08/18/21 15:53 Family History Mother Cancer skin Anemia Father Cancer Heart disease Surgical History History of delivery History of dilatation and curettage History of temporal artery biopsy (~12/2018) Hx of breast biopsy Hx of tonsillectomy Stented coronary artery (06/20/18) Social History Smoking Status: Never smoker alcohol intake: never caffeine: Yes Type: tea Number of servings: 2 ROS ROS ED Constitutional Constitutional ED: Denies chills or fever(s) ENT ENT ED: Denies sore throat Cardiovascular Cardiovascular: Denies chest pain or racing heartbeat Respiratory/Chest Respiratory/Chest: Denies cough or dyspnea Gastrointestinal Gastrointestinal: Denies abdominal pain, diarrhea, nausea or vomiting Genitourinary Genitourinary ED: Denies dysuria Musculoskeletal Musculoskeletal: Reports other Details: Positive leg swelling ; Denies myalgias Integumentary Denies rash Neurologic Neurologic: Denies headache(s) Hematologic/Lymphatic Hematologic/Lymphatic: Reports easy bleeding and easy bruising EXAM Physical Exam Const Vital Signs: 08/26/21 04:05 08/26/21 04:08 Temperature 97.7 F L Temperature Source Oral Pulse Rate 67 Respiratory Rate 14 Respiratory Effort Normal Respiratory Pattern Normal Blood Pressure 157/64 H Blood Pressure Mean 95 Pulse Ox 99 Oxygen Delivery Method Room Air Positive well nourished, well developed and obese General Appearance ED: well developed Nutritional Appearance: obese HEENT Reports moist mucous membranes HEENT Narrative: No tongue or lip swelling no oral lesions no airway edema or compromise Eyes PERRL and EOMs intact bilaterally Neck supple and no JVD Resp normal respiratory effort and clear to auscultation bilaterally Cardio regular rate and regular rhythm Rate: other Other Details: Radial pulses are plus 2 out of 4 bilaterally are equal and symmetric GI normal to inspection, nondistended, normoactive bowel sounds, non-tender, non-distended and no masses GI Narrative: No voluntary guarding or rigidity no pulsatile mass. No fluid wave noted Auscultation: normoactive bowel sounds Palpation: soft Extremity Extremity Narrative: Patient has +2 pitting edema from the feet to just below the knees bilaterally that is equal and symmetric. Negative Homans' sign bilaterally Neuro oriented x3 and CN's II-XII intact bilaterally Sensorium / Orientation: alert Motor Exam: strength 5/5 throughout Psych mental status grossly normal Skin no rashes or lesions noted MDM MDM MDM Narrative Medical decision making narrative: Patient presented to the ER in no acute distress satting in the high 90s on room air. She had bilateral leg swelling and takes Eliquis and has not missed doses and therefore my concern for DVT is low. She states that the swelling did not occur until she stopped her hydrochlorothiazide. Her history and physical exam indicates peripheral edema most likely spurred by her recent change in medication. I elected to perform basic laboratory studies to ensure she is not having electrolyte derangements or kidney damage as the cause. Labs revealed no clinically significant findings and chest x-ray reveals no signs of pleural effusion. Therefore at this time patient is hemodynamically stable work-up reveals no clinically significant findings and history and exam is indicating peripheral edema secondary to medication adjust. Patient will be given 1 dose of Lasix in the ER as well as Olman wraps for compression. She can follow-up with her family doctor and/or pharmacy manager to discuss restarting her hydrochlorothiazide. Lab Data Attestation: I reviewed the patient's lab results. Labs: Laboratory Results - last 24 hr 08/26/21 08/26/21 08/26/21 04:15 04:15 04:15 WBC 14.6 H RBC 4.52 Hgb 12.7 Hct 40.0 MCV 88.5 MCH 28.1 MCHC 31.8 L RDW Std Deviation 53.1 H RDW Coeff of Agnieszka 16.6 H Plt Count 221 MPV 9.8 Immature Gran % (Auto) 3.000 H Neut % (Auto) 76.1 H Lymph % (Auto) 14.3 L [place]ff[place] % (Auto) 6.1 Eos % (Auto) 0.1 Baso % (Auto) 0.4 Absolute Neuts (auto) 11.1 H Absolute Lymphs (auto) 2.09 Nucleated RBC % 0 Sodium 138 Potassium 4.0 Chloride 104 Carbon Dioxide 28.0 Anion Gap 6 BUN 19 H Creatinine 0.70 Estim Creat Clear Calc 37.06 Est GFR (MDRD) Af Amer 107 Est GFR (MDRD) Non-Af 88 BUN/Creatinine Ratio 27.3 H Glucose 136 H Calcium 8.8 B-Natriuretic Peptide 108.1 H Radiography Diagnostic Testing: Clinical Impression(s) from Imaging Studies Chest X-Ray 08/26/21 04:27 IMPRESSION: No radiographic evidence of acute cardiopulmonary disease. at 0501 Reported and signed by: Mikael Myers MD Electronically Signed: Mikael Myers MD at 5:00 EST , Discharge Plan Triage Chief Complaint: Edema ED Provider: Tate Reyes Dx/Rx/DC Orders Clinical Impression: Peripheral edema Instructions: ED Peripheral Edema, Bilateral Prescriptions: No Action metronidazole 0.75 % cream 1 applicatio TOPICAL DAILY 68 Days Qty: 135 RF: 0 cholecalciferol (vitamin D3) 50 mcg (2,000 unit) capsule 4,000 unit PO DAILY RF: 0 levothyroxine 50 MCG tablet 50 mcg PO DAILY RF: 0 potassium chloride 20 mEq tablet,ER particles/crystals 20 meq PO DAILY RF: 0 omeprazole 40 mg capsule,delayed release(DR/EC) 40 mg PO DAILY RF: 0 acetaminophen 500 MG tablet 500 - 1,000 mg PO DAILY PRN PRN (Reason: Pain 1-10 Or Fever) RF: 0 peg 400-propylene glycol 10 ML drops 1 drp EACH EYE BID RF: 0 aspirin 81 MG tablet 81 mg PO DAILY@2000 RF: 0 atorvastatin 80 mg tablet 80 mg PO QHS RF: 0 prednisone 20 mg tablet 20 mg PO DAILY RF: 0 Eliquis 5 mg tablet 5 mg PO BID RF: 0 losartan 25 mg tablet 25 mg PO QAM Qty: 90 RF: 3 diltiazem HCl 120 mg capsule,extended release 24hr 120 mg PO DAILY Qty: 90 RF: 3 metoprolol tartrate 50 mg tablet 50 mg PO BID Qty: 180 RF: 3 Primary Care Provider: Mikael Ramires Referrals: Mikael Ramires [Primary Care Provider] - Activity Restrictions/Additional Instructions: Please wear the Olman wrap during the day and keep your feet elevated while at rest to help reduce swelling. Please talk to your family doctor and/or pharmacy manager about restarting her hydrochlorothiazide as I feel this would help prevent further exacerbations of your edema Disposition Disposition: Home, Self Care
[2021-08-26 04:34] LABS: Absolute Lymphocyte Count 2.09 X10^3/uL (0.83-4.51); Absolute Neutrophil Count 11.1 X10^3/uL (2.0-7.7); Basophil# 0.06 X10^3/uL; Basophil% 0.4 % (0-1); Eosinophil# 0.01 X10^3/uL; Eosinophils% 0.1 % (0-5); Hemoglobin 12.7 g/dL (12.0-15.0); Lymphocyte # 2.09 X10^3/ul (0.83-4.51); Lymphocyte % 14.3 % (19-41); Mean Corp Hgb Conc 31.8 g/dL (32-36); Mean Corpuscular Hgb 28.1 pg (27.0-32.0); Mean Corpuscular Volume 88.5 fL (81-99); Mean Platelet Vol. 9.8 fl (6.2-12.0); Monocyte# 0.89 X10^3/uL; Monocyte% 6.1 % (0-10); NRBC Flagged by Analyzer 0 % (0-5); Neutrophil # 11.09 X10^3/uL (2.7-7.7); Neutrophil % 76.1 % (47-70); Platelet Count 221 K/mm3 (150-450); RBC Distribution Width CV 16.6 % (11.6-14.6); RBC Distribution Width SD 53.1 fl (35.1-43.9); Red Blood Count 4.52 M/mm3 (4.2-5.4); White Blood Count 14.6 K/mm3 (4.4-11.0)
[2021-08-26 04:43] LABS: Anion Gap 6 (5-15); BUN 19 mg/dL (7-18); BUN/Creat Ratio 27.3 RATIO (10-20); Calcium,Total 8.8 mg/dL (8.5-10.1); Chloride 104 mmol/L (98-107); EST Glomerular Filtration Rate 88 mL/min (>60); Est Glom Filt Rate - Afr Amer 107 mL/min (>60); Estimated Creatinine Clearance 37.06 ml/min; Glucose 136 mg/dL (74-106); Sodium Level 138 mmol/L (136-145)
[2021-08-26 04:52] LABS: BNP,B-Type NATRIURETIC PEPTIDE 108.1 pg/mL (0-100)
[2021-08-26] MEDS: Furosemide 20 MG/2 ML VIAL IV (04:58)
[2021-08-26 05:34] VITALS: PULSE 64; RESP 18; O2SAT 97
== END 2021-08-26 05:35 | disposition home or self-care (01) ==
PROVIDERS: Emergency Provider Emergency Medicine; PCP Family Medicine; Visit Provider Emergency Medicine
DX: R60.0 Localized edema (principal); I48.91 Unspecified atrial fibrillation; I10 Essential (primary) hypertension; I25.10 Atherosclerotic heart disease of native coronary artery without angina pectoris; E78.5 Hyperlipidemia, unspecified; E66.9 Obesity, unspecified; E55.9 Vitamin D deficiency, unspecified; I25.2 Old myocardial infarction; K21.9 Gastro-esophageal reflux disease without esophagitis; E03.9 Hypothyroidism, unspecified; Z79.01 Long term (current) use of anticoagulants; Z95.5 Presence of coronary angioplasty implant and graft; Z79.899 Other long term (current) drug therapy; Z79.82 Long term (current) use of aspirin
CPT/HCPCS: 71046; 80048; 83880; 85025; 96374; 99284; A4216; J1940

== ENCOUNTER 2021-09-09 12:11 | Outpatient (CLI) | payer MEDICARE, SELFPAY ==
[2018-06-21 08:53] VITALS: BMI 38.3
[2021-09-09 13:05] LABS: AST(SGOT) 11 U/L (15-37); Alanine Aminotransfer ALT/SGPT 34 U/L (13-56); Albumin, Serum 3.2 g/dL (3.2-5.0); Alkaline Phosphatase 73 U/L (45-117); Anion Gap 6 (5-15); BUN 23 mg/dL (7-18); BUN/Creat Ratio 30.5 RATIO (10-20); Bilirubin, Direct 0.17 mg/dL (0.00-0.30); Chloride 105 mmol/L (98-107); Cholesterol 141 mg/dL (200); Creatinine, Serum 0.76 mg/dL (0.55-1.02); EST Glomerular Filtration Rate 80 mL/min (>60); Est Glom Filt Rate - Afr Amer 97 mL/min (>60); Glucose 104 mg/dL (74-106); High Density Lipoprotein 84 mg/dL; Potassium 3.7 mmol/L (3.5-5.1); Protein, Total 6.2 g/dL (6.4-8.2); Sodium Level 138 mmol/L (136-145); Triglycerides 84 mg/dL; Very Low Density Lipoprotein 17 mg/dL (5-40)
[2021-09-11 14:09] LABS: Magnesium 2.1 mg/dL (1.6-2.6)
== END 2021-09-09 23:59 | disposition home or self-care (01) ==
LOC: LAB 12:13
PROVIDERS: PCP Family Medicine; Referring Provider Nurse Practitioner Gerontology; Visit Provider Nurse Practitioner Gerontology
DX: R25.2 Cramp and spasm (principal); I48.0 Paroxysmal atrial fibrillation; R60.9 Edema, unspecified; E78.5 Hyperlipidemia, unspecified
CPT/HCPCS: 36415; 80048; 80061; 80076; 83735

== ENCOUNTER 2021-09-23 12:23 | Outpatient (CLI) | payer MEDICARE, SELFPAY ==
[2018-06-21 08:53] VITALS: BMI 38.3
== END 2021-09-23 23:59 | disposition home or self-care (01) ==
LOC: PSN 12:24
PROVIDERS: PCP Family Medicine; Referring Provider Family Medicine; Visit Provider Family Medicine
DX: I48.0 Paroxysmal atrial fibrillation (principal)
CPT/HCPCS: 93225; 93226

== ENCOUNTER → 2022-03-22 | Outpatient (CLI) | payer MEDICARE, SELFPAY ==
[2018-06-21 08:53] VITALS: BMI 38.3
[2022-03-22 16:32] LABS: Erythrocyte Sedimentation Rate 22 mm/hr (0-30)
[2022-03-22 16:33] LABS: Absolute Neutrophil Count 8.7 X10^3/uL (2.0-7.7); Basophil# 0.05 X10^3/uL; Basophil% 0.4 % (0-1); Eosinophil# 0.17 X10^3/uL; Eosinophils% 1.3 % (0-5); Hemoglobin 11.1 g/dL (12.0-15.0); Lymphocyte % 19.7 % (19-41); Mean Corp Hgb Conc 30.8 g/dL (32-36); Mean Corpuscular Hgb 26.6 pg (27.0-32.0); Mean Corpuscular Volume 86.1 fL (81-99); Mean Platelet Vol. 10.3 fl (6.2-12.0); Monocyte# 1.15 X10^3/uL; Monocyte% 9.1 % (0-10); NRBC Flagged by Analyzer 0 % (0-5); Neutrophil # 8.72 X10^3/uL (2.7-7.7); Neutrophil % 68.8 % (47-70); Platelet Count 249 K/mm3 (150-450); RBC Distribution Width CV 14.6 % (11.6-14.6); RBC Distribution Width SD 45.4 fl (35.1-43.9); Red Blood Count 4.18 M/mm3 (4.2-5.4); White Blood Count 12.7 K/mm3 (4.4-11.0)
[2022-03-22 16:55] LABS: ALB/GLOB Ratio 0.9 RATIO (0.9-2.4); AST(SGOT) 10 U/L (15-37); Alanine Aminotransfer ALT/SGPT 20 U/L (13-56); Albumin, Serum 3.1 g/dL (3.2-5.0); Alkaline Phosphatase 85 U/L (45-117); Anion Gap 6 (5-15); BUN 19 mg/dL (7-18); BUN/Creat Ratio 22.2 RATIO (10-20); Calcium,Total 9.2 mg/dL (8.5-10.1); Chloride 106 mmol/L (98-107); Creatinine, Serum 0.85 mg/dL (0.55-1.02); EST Glomerular Filtration Rate 70 mL/min (>60); Est Glom Filt Rate - Afr Amer 84 mL/min (>60); Globulin 3.3 g/dL (2.2-4.2); Glucose 100 mg/dL (74-106); Potassium 3.5 mmol/L (3.5-5.1); Protein, Total 6.4 g/dL (6.4-8.2); Sodium Level 142 mmol/L (136-145)
== END | disposition home or self-care (01) ==
LOC: LAB 15:10
PROVIDERS: PCP Family Medicine; Referring Provider Family Medicine; Visit Provider Family Medicine
DX: I10 Essential (primary) hypertension (principal); M35.3 Polymyalgia rheumatica; I25.10 Atherosclerotic heart disease of native coronary artery without angina pectoris; E03.9 Hypothyroidism, unspecified
CPT/HCPCS: 36415; 80053; 84443; 85025; 85652

== ENCOUNTER → 2022-04-05 | Outpatient (CLI) | payer MEDICARE, SELFPAY ==
[2018-06-21 08:53] VITALS: BMI 38.3
[2022-04-05 13:50] LABS: Cholesterol 123 mg/dL (200); High Density Lipoprotein 78 mg/dL; Triglycerides 72 mg/dL; Very Low Density Lipoprotein 14 mg/dL (5-40)
== END | disposition home or self-care (01) ==
LOC: LAB 12:03
PROVIDERS: PCP Family Medicine; Referring Provider Nurse Practitioner Family; Visit Provider Nurse Practitioner Family
DX: I25.10 Atherosclerotic heart disease of native coronary artery without angina pectoris (principal); E78.5 Hyperlipidemia, unspecified
CPT/HCPCS: 36415; 80061

== ENCOUNTER → 2022-04-19 | Outpatient (CLI) | payer MEDICARE, SELFPAY ==
[2018-06-21 08:53] VITALS: BMI 38.3
== END | disposition home or self-care (01) ==
LOC: LABSPEC 12:35
PROVIDERS: PCP Family Medicine; Visit Provider Family Medicine
DX: J02.9 Acute pharyngitis, unspecified (principal)

== ENCOUNTER → 2022-05-11 | Outpatient (CLI) | payer MEDICARE, SELFPAY ==
[2018-06-21 08:53] VITALS: BMI 38.3
--- NOTE | 2022-05-11 11:16 | STRESSREP_ITS ---
Stress Test Report Date: 05-11-2022 Procedure: Pharmacologic stress nuclear imaging study Indications: Shortness of breath/dyspnea; fatigue; CAD; PCI; atrial fibrillation Consent: Per the patient Procedure: The patient underwent pharmacologic (Regadenoson 0.4mg ) evaluation with a peak heart rate of 90 beats per minute (60%predicted maximal heart rate) and a resting blood pressure of 118/62 mmHg and a peak blood pressure of 126/52 mmHg. The baseline ECG demonstrated sinus rhythm. The peak pharmacologic ECG demonstrated no obvious ECG changes. There were no cardiac dysrhythmias pretest, during pharmacologic infusion, or recovery. There was no complaint of chest discomfort during pharmacologic infusion or recovery. The examination was discontinued secondary to completion of protocol. Impression: 1. Pharmacologic (Regadenoson) evaluation 2. Peak pharmacologic ECG with no obvious ECG changes. 3. There were no cardiac dysrhythmias pretest, during pharmacologic infusion, or recovery. 4. Nuclear images pending Myocardial perfusion imaging study: Technique: The patient was injected with 11.1 millicuries of technetium 99m Cardiolite and subsequently rest SPECT Cardiolite nuclear imaging was obtained in the horizontal long, vertical long, and short axis views. The patient underwent pharmacologic (Regadenoson) evaluation with a peak heart rate of 90 beats per minute (60% percent predicted maximal heart rate) and a resting blood pressure of 118/62 mmHg and a peak blood pressure of 126/52 mmHg. The patient was injected with 33.3 millicuries of technetium 99m Cardiolite and subsequently stress SPECT Cardiolite nuclear imaging was obtained in the horizontal long, vertical long, and short axis views. A gated Cardiolite study at peak stress was obtained. Interpretation: Rest and stress SPECT Cardiolite nuclear imaging status post realignment, normalization, and attenuation correction demonstrate relative uniform tracer uptake and myocardial perfusion appearing within normal limits. There is end systolic thickening and brightening. The gated Cardiolite study demonstrates myocardial thickening and inward wall motion. The reported LVEF is 87%. Impression: 1. Rest and stress SPECT Cardiolite nuclear imaging demonstrate relative uniform tracer uptake and myocardial perfusion appearing within normal limits. 2. The gated Cardiolite study reports an LVEF of 87%. This note was generated with Textronicsation software. It may contain incorrect words, spelling, and punctuation that were not noted in checking the note before signing.
== END | disposition home or self-care (01) ==
LOC: CVS 07:11
PROVIDERS: PCP Family Medicine; Visit Provider Nurse Practitioner Family
DX: I48.0 Paroxysmal atrial fibrillation (principal); I25.10 Atherosclerotic heart disease of native coronary artery without angina pectoris; I10 Essential (primary) hypertension; E78.5 Hyperlipidemia, unspecified
CPT/HCPCS: 78452; 93017; A9500; A4216; J2785

== ENCOUNTER → 2022-07-01 | Outpatient (CLI) | payer MEDICARE, SELFPAY ==
[2018-06-21 08:53] VITALS: BMI 38.3
--- NOTE | 2022-07-01 11:54 | BI_ITS ---
MAMMOGRAPHY - BILATERAL SCREENING REASON FOR EXAM: Female, 71 years old. Routine annual screening examination. PERTINENT HISTORY: Non-contributory. TECHNIQUE: Digital bilateral breast zack (3D mammographic acquisition) in the CC and MLO projections. 2-D mediolateral oblique (MLO) and craniocaudad (CC) views of both breasts were obtained. CAD: Full Field Digital Mammography with Computer Added Detection was performed. COMPARISON: Comparison is made with prior examination dated 06/30/2021 and 06/11/2020. FINDINGS: Breast Composition: There are scattered areas of fibroglandular density. There are no dominant masses or suspicious calcifications. Stable small benign appearing bilateral axillary lymph nodes. No other significant abnormalities are identified. There has been no significant change since the prior study. BI/SCRN MAMM (CAD)W/ZACK BILAT IMPRESSION: Stable bilateral screening mammogram. Yearly follow-up mammogram recommended. (A) ASSESSMENT CATEGORY: BIRADS Category 2: Benign. A letter regarding these results will be sent to the patient by the facility within 30 days. Approximately 10% of breast cancers are not detected by mammography. A normal mammogram should not delay biopsy of a clinically suspicious abnormality. [id number] Electronically Signed: Donsi Rocha MD at 12:42 EST ,
== END | disposition home or self-care (01) ==
LOC: OPBI 11:51
PROVIDERS: PCP Family Medicine; Visit Provider Family Medicine
DX: Z12.31 Encounter for screening mammogram for malignant neoplasm of breast (principal)
CPT/HCPCS: 77063; 77067

== ENCOUNTER 2022-08-11 18:55 | Emergency (ER) | payer MEDICARE, SELFPAY ==
[2018-06-21 08:53] VITALS: BMI 38.3
[2022-08-11 18:56] VITALS: BP 154/104; PULSE 120; RESP 18; TEMP 36.1; O2SAT 96; BMI 38.2
--- NOTE | 2022-08-11 19:50 | RAD_ITS ---
INDICATION: cough, fever EXAMINATION/TECHNIQUE: X-RAY - XR Chest 1 View COMPARISON: 08/26/2021 FINDINGS: LIFE-SUPPORT AND LINES: 1. None HEART AND VESSELS: The cardiac silhouette, pulmonary vasculature have normal appearance. No evidence of congestive failure. LUNGS AND PLEURAL SPACES: Lungs are clear. No focal infiltrate, consolidation or effusions. No evidence of pneumothorax. No pulmonary mass is noted. MEDIASTINUM AND HILAR REGIONS: No masses adenopathy noted. No areas of calcification. Visualized upper airway is normal in position. BONY ELEMENTS: No acute bony changes noted. RAD/Chest 1 View (Portable) IMPRESSION: 1. No evidence of acute cardiopulmonary process Electronically Signed: Chico Dowell MD at 20:31 EST ,
[2022-08-11 19:54] LABS: Absolute Lymphocyte Count 0.93 X10^3/uL (0.83-4.51); Absolute Neutrophil Count 2.4 X10^3/uL (2.0-7.7); Basophil# 0.01 X10^3/uL; Basophil% 0.3 % (0-1); Eosinophil# 0.05 X10^3/uL; Eosinophils% 1.3 % (0-5); Hematocrit 37.1 % (37-47); Hemoglobin 11.7 g/dL (12.0-15.0); Lymphocyte # 0.93 X10^3/ul (0.83-4.51); Lymphocyte % 23.7 % (19-41); Mean Corp Hgb Conc 31.5 g/dL (32-36); Mean Corpuscular Hgb 25.8 pg (27.0-32.0); Mean Corpuscular Volume 81.9 fL (81-99); Mean Platelet Vol. 9.6 fl (6.2-12.0); Monocyte# 0.52 X10^3/uL; Monocyte% 13.2 % (0-10); NRBC Flagged by Analyzer 0 % (0-5); Platelet Count 193 K/mm3 (150-450); RBC Distribution Width CV 13.7 % (11.6-14.6); Red Blood Count 4.53 M/mm3 (4.2-5.4); White Blood Count 3.9 K/mm3 (4.4-11.0)
[2022-08-11 20:13] LABS: Anion Gap 19 (5-15); BUN 6 mg/dL (7-18); BUN/Creat Ratio 8.2 RATIO (10-20); Chloride 94 mmol/L (98-107); Creatinine, Serum 0.73 mg/dL (0.55-1.02); EST Glomerular Filtration Rate 83 mL/min (>60); Est Glom Filt Rate - Afr Amer 101 mL/min (>60); Estimated Creatinine Clearance 36.53 ml/min; Glucose 93 mg/dL (74-106); Potassium 2.8 mmol/L (3.5-5.1); Sodium Level 137 mmol/L (136-145)
[2022-08-11 21:31] VITALS: RESP 18; O2SAT 98
[2022-08-11 21:32] VITALS: O2SAT 98
[2022-08-11 21:35] VITALS: BP 148/81; PULSE 107; RESP 18; O2SAT 98
--- NOTE | 2022-08-11 21:59 | EDS_ITS ---
HPI History of Present Illness Chief Complaint: General Illness Informant: patient Narrative Narrative: Patient presents after feeling ill for about 7 to 8 days. Her has the same symptoms but is sicker. Patient states that she does not have any muscle aches. She has a scratchy throat but not a sore throat. She has had a cough but no productivity. She is not actually short of breath. However, occasionally she coughs very hard and it is hard to catch her breath for a moment. No hemoptysis. No chest pain. She has no abdominal pain. She has had some mild nausea but she has Zofran at home that helps a lot and she still has the med. No diarrhea at this time but she had some in the first few days. She states she is able to eat but looking at food just makes her feel disgusted so her appetite is down. She is drinking fluids. [facility] Medical History Acute ST elevation myocardial infarction Arthritis Asthma Atherosclerotic heart disease of [place] coronary artery without angina pectoris COVID-19 (~06/2021) Essential hypertension GERD (gastroesophageal reflux disease) GERD (gastroesophageal reflux disease) History of coronary artery disease History of [place] (myocardial infarction) HLD (hyperlipidemia) HTN (hypertension) Hypothyroidism IBS (irritable bowel syndrome) Incontinence Knee pain Monoclonal gammopathy Monoclonal gammopathy of unknown significance (MGUS) M?ni?re's disease Osteoarthritis of left shoulder Osteopenia Polyclonal gammopathy PVC's (premature ventricular contractions) Retinal tear of left eye SOB (shortness of breath) Temporal arteritis Ulnar neuropathy Vitamin D deficiency Home Medications levothyroxine 50 mcg tablet 50 mcg PO DAILY Thyroid 12/31/16 [History Last Taken 08/08/21] metronidazole 0.75 % topical cream 1 applicatio topical DAILY rosacea 68 days #135 grams 07/03/18 [History Last Taken 08/08/21] acetaminophen 500 mg tablet 500 - 1,000 mg PO DAILY PRN PRN Pain 1-10 Or Fever 08/06/20 [History Last Taken 08/01/20] aspirin 81 mg tablet,delayed release 81 mg PO DAILY@2000 heart 08/06/20 [History Last Taken 08/08/21] peg 400-propylene glycol 0.4 %-0.3 % eye drops 1 drp EACH EYE BID DRY EYE 08/06/20 [History Last Taken 08/08/21] potassium chloride 20 mEq tablet,extended release(part/cryst) 20 meq PO DAILY supplement 09/22/20 [History Last Taken 08/08/21] omeprazole 40 mg capsule,delayed release 40 mg PO DAILY gerd 08/05/21 [History Last Taken 08/08/21] atorvastatin 80 mg tablet 80 mg PO QHS cholesterol 08/08/21 [History Last Taken 08/07/21] hydrochlorothiazide 25 mg tablet 25 mg PO DAILY 08/28/21 [History Last Taken Unknown] diltiazem HCl 120 mg capsule,extended release 24 hr 120 mg PO BID #180 caps 01/15 [Rx Last Taken Unknown] metoprolol tartrate 50 mg tablet 50 mg PO BID this is a dose increase 10/07/21 [History Last Taken Unknown] cholecalciferol (vitamin D3) 50 mcg (2,000 unit) capsule 2,000 unit PO DAILY SUPPLEMENT 04/05/22 [History Last Taken Unknown] losartan 25 mg tablet 25 mg PO DAILY blood pressure #90 tabs 07/15/22 [Rx Last Taken Unknown] apixaban 5 mg tablet (Eliquis) 5 mg PO BID blood thinner #60 tabs 08/06/22 [Rx Last Taken Unknown] Allergy/AdvReac Type Severity Reaction Status Date / Time clarithromycin [From Biaxin] Allergy Rash Verified 08/11/22 18:59 sulfamethoxazole Allergy Rash Verified 08/11/22 18:59 [From Bactrim] trimethoprim [From Bactrim] Allergy Rash Verified 08/11/22 18:59 carvedilol [From Coreg] AdvReac Intermediate Nausea, Verified 08/11/22 18:59 Lightheaded codeine AdvReac Upset Verified 08/11/22 18:59 Stomach lisinopril AdvReac cough Verified 08/11/22 18:59 Penicillins AdvReac Other Verified 08/11/22 18:59 Family History Mother Cancer skin Anemia Father Cancer Heart disease Surgical History History of delivery History of dilatation and curettage History of temporal artery biopsy (~12/2018) Hx of breast biopsy Hx of tonsillectomy Stented coronary artery (06/20/18) Social History Smoking Status: Never smoker alcohol intake: never substance use type: does not use caffeine: No ROS ROS ED Constitutional Constitutional ED: Reports subjective Eyes Eyes: Denies change in vision ENT ENT ED: Reports rhinorrhea; Denies sore throat Cardiovascular Cardiovascular: Denies chest pain or palpitations Respiratory/Chest Respiratory/Chest: Reports cough; Denies dyspnea Gastrointestinal Gastrointestinal: Reports diarrhea and nausea; Denies abdominal pain or vomiting Genitourinary Genitourinary ED: Denies dysuria Musculoskeletal Musculoskeletal: Denies myalgias Integumentary Denies rash Neurologic Neurologic: Denies headache(s) Endocrine Endocrinology: Denies polydipsia or polyuria Hematologic/Lymphatic Hematologic/Lymphatic: Denies easy bleeding or easy bruising Allergic/Immunologic Allergic/Immunologic ED: Denies urticaria EXAM Physical Exam Narrative Exam Narrative: Patient is awake and alert. She is nontoxic. She looks reasonably comfortable in bed. She does carry on normal conversation. HEENT: No erythema. She has a little scratchiness of her voice but normal swallowing and handling secretions. No swelling. No sinus tenderness. Neck shows no JVD Lungs are actually clear. I hear no wheezing at all. No coughing while I am in the room. She states the coughing normally starts when she sleeps at night. Heart does sound to be slightly irregular. Has a rate of about 100. But she does have atrial fibrillation. This is known. Her abdomen is soft normal bowel sounds nondistended and completely nontender. : No CVA or suprapubic tenderness No notable peripheral edema Neurologically patient is awake alert appropriate with no weakness. Const Vital Signs: 08/11/22 18:56 08/11/22 21:31 08/11/22 21:32 Temperature 97 F L Temperature Source Temporal Pulse Rate 120 H Respiratory Rate 18 18 Respiratory Effort Respiratory Pattern Blood Pressure 154/104 H Blood Pressure Mean 120 Pulse Ox 96 98 98 Oxygen Delivery Method Room Air Room Air Room Air 08/11/22 21:35 08/11/22 21:36 Temperature Temperature Source Pulse Rate 107 H Respiratory Rate 18 Respiratory Effort Short of Breath Respiratory Pattern Normal Blood Pressure 148/81 H Blood Pressure Mean 103 Pulse Ox 98 Oxygen Delivery Method Room Air MDM MDM MDM Narrative Medical decision making narrative: My independent interpretation of the patient's single view AP chest shows no infiltrate. Final reading by radiology is also no evidence of acute cardiopulmonary process. Patient CBC shows a low white count at 3.9 with which is consistent with her having positive COVID. Hemoglobin is minimally low. Platelets are normal. Potassium is a little bit low and will be replaced. This should improve as her diet improves also. Gap was slightly elevated bicarb was normal. No sign of acute kidney injury. We discussed options with the patient. She is not hypoxic. She is able to eat and drink. I do not think she requires admission. We will replace her potassium. I was going to give her a prescription of potassium for a few days. But I find that she is already on the potassium. Because her appetite has been down she has not been taking it. We have encouraged her to actually take this again. She states she has tried Tessalon Perles for cough and they do not help her. She has Ventolin for a nebulizer at home which does help the cough. But she requested a MDI as she does not currently have one. This will be written for here. Although her potassium is low she is not showing any significant weakness. She has actually been helping her around who is significantly weak. I think she is reasonable to treat as an outpatient. She is toward the tail end of her COVID symptoms. She is beyond treatment with any of the antivirals. Lab Data Attestation: I reviewed the patient's lab results. Labs: Laboratory Results - last 24 hr 08/11/22 08/11/22 19:50 19:50 WBC 3.9 L RBC 4.53 Hgb 11.7 L Hct 37.1 MCV 81.9 MCH 25.8 L MCHC 31.5 L RDW Std Deviation 41.0 RDW Coeff of Agnieszka 13.7 Plt Count 193 MPV 9.6 Immature Gran % (Auto) 0.500 Neut % (Auto) 61.0 Lymph % (Auto) 23.7 [place] % (Auto) 13.2 H Eos % (Auto) 1.3 Baso % (Auto) 0.3 Absolute Neuts (auto) 2.4 Absolute Lymphs (auto) 0.93 Nucleated RBC % 0 Sodium 137 Potassium 2.8 L Chloride 94 L Carbon Dioxide 24.0 Anion Gap 19 H BUN 6 L Creatinine 0.73 Estim Creat Clear Calc 36.53 Est GFR (MDRD) Af Amer 101 Est GFR (MDRD) Non-Af 83 BUN/Creatinine Ratio 8.2 L Glucose 93 Calcium 9.0 Radiography Diagnostic Testing: Clinical Impression(s) from Imaging Studies Chest X-Ray 08/11/22 19:50 IMPRESSION: 1. No evidence of acute cardiopulmonary process Electronically Signed: Chico Dowell MD at 20:31 EST , Discharge Plan Triage Chief Complaint: General Illness ED Provider: Mikhail Infante Dx/Rx/DC Orders Clinical Impression: COVID, Hypokalemia Instructions: Coronavirus Disease 2019 (COVID-19): Caring for Yourself or Others, Hypokalemia Dc Prescriptions: No Action metronidazole 0.75 % cream 1 applicatio TOPICAL DAILY 68 Days Qty: 135 Rx Instructions: FOR ROSACEA cholecalciferol (vitamin D3) 50 mcg (2,000 unit) capsule 2,000 unit PO DAILY metoprolol tartrate 50 mg tablet 50 mg PO BID losartan 25 mg tablet 25 mg PO DAILY Qty: 90 3RF levothyroxine 50 MCG tablet 50 mcg PO DAILY potassium chloride 20 mEq tablet,ER particles/crystals 20 meq PO DAILY omeprazole 40 mg capsule,delayed release(DR/EC) 40 mg PO DAILY acetaminophen 500 MG tablet 500 - 1,000 mg PO DAILY PRN PRN (Reason: Pain 1-10 Or Fever) peg 400-propylene glycol 10 ML drops 1 drp EACH EYE BID aspirin 81 MG tablet 81 mg PO DAILY@2000 atorvastatin 80 mg tablet 80 mg PO QHS hydrochlorothiazide 25 mg tablet 25 mg PO DAILY diltiazem HCl 120 mg capsule,extended release 24hr 120 mg PO BID Qty: 180 3RF Eliquis 5 mg tablet 5 mg PO BID Qty: 60 11RF Primary Care Provider: Mikael Ramires Referrals: Mikael Ramires [Primary Care Provider] - 3-5 Days if not improving Disposition Disposition: Home, Self Care
[2022-08-11] MEDS: Potassium Chloride Oral Tablet 20 MEQ 40 MEQ PO (22:35)
[2022-08-11] MEDS: Albuterol Sulfate 8 gm Inhaler (60 puffs) 2 PUFF INHALATION (22:35)
[2022-08-11 23:27] VITALS: BP 148/81; PULSE 101; RESP 18; O2SAT 98
== END 2022-08-11 23:28 | disposition home or self-care (01) ==
PROVIDERS: Emergency Provider Emergency Medicine; PCP Family Medicine; Visit Provider Emergency Medicine
DX: U07.1 COVID-19 (principal); E87.6 Hypokalemia; I25.10 Atherosclerotic heart disease of native coronary artery without angina pectoris; E78.5 Hyperlipidemia, unspecified; I10 Essential (primary) hypertension; R11.0 Nausea; R19.7 Diarrhea, unspecified
CPT/HCPCS: 71045; 80048; 85025; 87428; 94760; 99285; A4216

== ENCOUNTER → 2022-10-08 | Outpatient (CLI) | payer MEDICARE, SELFPAY ==
[2018-06-21 08:53] VITALS: BMI 38.3
[2022-10-08 15:03] LABS: Absolute Lymphocyte Count 1.84 X10^3/uL (0.83-4.51); Absolute Neutrophil Count 4.9 X10^3/uL (2.0-7.7); Basophil# 0.04 X10^3/uL; Basophil% 0.5 % (0-1); Eosinophil# 0.17 X10^3/uL; Eosinophils% 2.3 % (0-5); Hematocrit 35.9 % (37-47); Hemoglobin 11.3 g/dL (12.0-15.0); Lymphocyte # 1.84 X10^3/ul (0.83-4.51); Lymphocyte % 24.5 % (19-41); Mean Corp Hgb Conc 31.5 g/dL (32-36); Mean Corpuscular Hgb 27.3 pg (27.0-32.0); Mean Corpuscular Volume 86.7 fL (81-99); Mean Platelet Vol. 11.4 fl (6.2-12.0); Monocyte# 0.53 X10^3/uL; Monocyte% 7.1 % (0-10); NRBC Flagged by Analyzer 0 % (0-5); Neutrophil # 4.91 X10^3/uL (2.7-7.7); Neutrophil % 65.3 % (47-70); Platelet Count 222 K/mm3 (150-450); RBC Distribution Width CV 15.8 % (11.6-14.6); RBC Distribution Width SD 49.3 fl (35.1-43.9); Red Blood Count 4.14 M/mm3 (4.2-5.4); White Blood Count 7.5 K/mm3 (4.4-11.0)
[2022-10-08 15:45] LABS: AST(SGOT) 14 U/L (15-37); Alanine Aminotransfer ALT/SGPT 19 U/L (13-56); Albumin, Serum 3.4 g/dL (3.2-5.0); Alkaline Phosphatase 93 U/L (45-117); Anion Gap 8 (5-15); BUN 13 mg/dL (7-18); BUN/Creat Ratio 14.8 RATIO (10-20); Calcium,Total 9.5 mg/dL (8.5-10.1); Chloride 106 mmol/L (98-107); Creatinine, Serum 0.88 mg/dL (0.55-1.02); EST Glomerular Filtration Rate 67 mL/min (>60); Est Glom Filt Rate - Afr Amer 81 mL/min (>60); Globulin 3.5 g/dL (2.2-4.2); Glucose 113 mg/dL (74-106); Potassium 3.2 mmol/L (3.5-5.1); Protein, Total 6.9 g/dL (6.4-8.2); Sodium Level 137 mmol/L (136-145); Thyroid Stim Hormone (TSH) 1.82 uIU/mL (0.358-3.74)
[2022-10-08 15:49] LABS: Vitamin B12 > 2000 pg/mL (211-911)
[2022-10-08 16:10] LABS: AST(SGOT) 16 U/L (15-37); Alanine Aminotransfer ALT/SGPT 20 U/L (13-56); Albumin, Serum 3.5 g/dL (3.2-5.0); Alkaline Phosphatase 93 U/L (45-117); Bilirubin, Direct 0.15 mg/dL (0.00-0.30); Cholesterol 160 mg/dL (200); Globulin 2.9 g/dL (2.2-4.2); High Density Lipoprotein 62 mg/dL; Protein, Total 6.4 g/dL (6.4-8.2); Triglycerides 148 mg/dL; Very Low Density Lipoprotein 30 mg/dL (5-40)
== END | disposition home or self-care (01) ==
PROVIDERS: Nurse Practitioner Family; PCP Family Medicine; Referring Provider Family Medicine; Visit Provider Family Medicine
DX: I25.10 Atherosclerotic heart disease of native coronary artery without angina pectoris (principal); I10 Essential (primary) hypertension; E55.9 Vitamin D deficiency, unspecified; R53.83 Other fatigue; E03.9 Hypothyroidism, unspecified
CPT/HCPCS: 36415; 80053; 80061; 80076; 82306; 82607; 84443; 85025

== ENCOUNTER → 2023-09-06 | Outpatient (CLI) | payer MEDICARE, SELFPAY ==
[2018-06-21 08:53] VITALS: BMI 38.3
[2023-09-06 18:13] LABS: Absolute Lymphocyte Count 1.69 X10^3/uL (0.83-4.51); Absolute Neutrophil Count 4.9 X10^3/uL (2.0-7.7); Basophil# 0.06 X10^3/uL; Basophil% 0.8 % (0-1); Eosinophil# 0.15 X10^3/uL; Hematocrit 35.8 % (37-47); Hemoglobin 10.8 g/dL (12.0-15.0); Lymphocyte # 1.69 X10^3/ul (0.83-4.51); Lymphocyte % 22.8 % (19-41); Mean Corp Hgb Conc 30.2 g/dL (32-36); Mean Corpuscular Hgb 26.1 pg (27.0-32.0); Mean Corpuscular Volume 86.5 fL (81-99); Mean Platelet Vol. 10.8 fl (6.2-12.0); Monocyte# 0.63 X10^3/uL; Monocyte% 8.5 % (0-10); NRBC Flagged by Analyzer 0 % (0-5); Neutrophil # 4.85 X10^3/uL (2.7-7.7); Neutrophil % 65.6 % (47-70); Platelet Count 203 K/mm3 (150-450); RBC Distribution Width CV 14.2 % (11.6-14.6); RBC Distribution Width SD 44.6 fl (35.1-43.9); Red Blood Count 4.14 M/mm3 (4.2-5.4); White Blood Count 7.4 K/mm3 (4.4-11.0)
[2023-09-06 18:40] LABS: Erythrocyte Sedimentation Rate 11 mm/hr (0-30)
[2023-09-06 18:42] LABS: Vitamin B12 258 pg/mL (211-911); Vitamin D,25 Hydroxy 38.4 ng/mL
[2023-09-06 19:08] LABS: AST(SGOT) 18 U/L (15-37); Alanine Aminotransfer ALT/SGPT 25 U/L (13-56); Albumin, Serum 3.4 g/dL (3.2-5.0); Alkaline Phosphatase 101 U/L (45-117); Anion Gap 7 (5-15); BUN 16 mg/dL (7-18); BUN/Creat Ratio 23.5 RATIO (10-20); CRP < 2.90 mg/L (0.0-3.0); Chloride 106 mmol/L (98-107); Cholesterol 141 mg/dL (200); Creatinine, Serum 0.68 mg/dL (0.55-1.02); EST Glomerular Filtration Rate 90 mL/min (>60); Est Glom Filt Rate - Afr Amer 109 mL/min (>60); Globulin 3.4 g/dL (2.2-4.2); Glucose 94 mg/dL (74-106); High Density Lipoprotein 74 mg/dL; Potassium 4.1 mmol/L (3.5-5.1); Protein, Total 6.8 g/dL (6.4-8.2); Sodium Level 139 mmol/L (136-145); Thyroid Stim Hormone (TSH) 2.83 uIU/mL (0.358-3.74); Triglycerides 92 mg/dL; Very Low Density Lipoprotein 18 mg/dL (5-40)
[2023-09-06 21:00] LABS: Hemoglobin A1c 5.5 % (3.8-5.6)
--- OUTSIDE RECORDS SUMMARY | 2023-09-07 02:32 | XMS RPT_ITS | CCD ---
Author Name Unknown Address [address] [place] [address] Organization [facility] Care Team Providers Care Printed Forms Proofreader Name Role Phone Lata Wesley James Unavailable ELMIRA MONTERROSO Admitting Unavailable ELMIRA MONTERROSO Attending Unavailable ELMIRA MONTERROSO Primary Care Unavailable SANCHEZ HELTON Attending UnaKANIKA Mullen Primary Care Unavailable Kanika Ramires DO Primary Care Provider Allergies Allergy Classification Reported Allergen(s) Allergy Type Date of Onset Reaction(s) Facility (2 sources) clarithromycin Drug Allergy 01-30-20 14 Rash, unknown [facility] Work Phone: (3 sources) codeine; Translations: [CODEINE] Drug Allergy 07-25-19 07 [facility] Work Phone: (2 sources) codeine Drug Allergy 01-30-20 14 Skin turned red, nauseas, hot skin, unknown [facility] Work Phone: (2 sources) iodine Drug Allergy 01-30-20 14 Couldn't breathe, unknown [facility] Work Phone: (1 source) penicillin Drug Allergy 01-30-20 14 [facility] Work Phone: (2 sources) penicillin g Drug Allergy 01-30-20 14 Passed out, unknown [facility] Work Phone: (2 sources) pseudoephedrine Drug Allergy 01-30-20 14 unknown, Rash [facility] Work Phone: (3 sources) sulfamethoxazole / trimethoprim; Translations: [BACTRIM] Drug Allergy 01-30-20 14 Rash, unknown [facility] Work Phone: (1 source) IODINE DYE drug allergy 01-30-20 14 [facility] Work Phone: (1 source) ZEPHEREX drug allergy 01-30-20 14 [facility] Work Phone: (1 source) BIOXIN drug allergy 01-30-20 14 [facility] Work Phone: (2 sources) Clarithromycin; Translations: [CLARITHROMYCIN] Drug Allergy 07-25-19 07 [facility] Rep[facility] (1 source) Penicillin; Translations: [PENICILLIN G] Drug Allergy 09-29-19 22 [facility] (2 sources) Sulfamethoxazole / Trimethoprim; Translations: [SULFAMETHOXAZOLE-T RIMETHOPRIM] Drug Allergy 07-25-19 07 [facility] (1 source) Contrast media Propensity to adverse reactions 07-25-19 07 Anaphylaxis [facility] Work Phone: (1 source) guaiFENesin / Pseudoephedrine Drug Allergy 07-25-19 07 Rash [facility] Work Phone: (1 source) Lisinopril Drug Allergy 02-24-20 19 Cough [facility] (1 source) Penicillins Propensity to adverse reactions 07-25-19 07 [facility] Work Phone: Medications Completed/Discontinued Medications Medication Drug Class(es) Dates Sig (Normalized) Sig (Original) albuterol 0.83 mg/ml inhalant solution (3 sources) beta2-Adrenergic Agonist Start: 10-02-2015 ALBUTEROL SULFATE (2.5 MG/3ML) 0.083% NEBU 1 ampule per day as needed ALBUTEROL SULFATE [id number] Kanika Ramires DO Problems Active Problems Problem Classification Problem Date Documented Da te Episodic/Chronic Asthma (1 source) Asthma; Translations: [Unspecified asthma, uncomplicated] Onset: 6 10-02-2015 Chronic Conditions associated with dizziness or vertigo (1 source) Meniere's disease; Translations: [Meniere's disease, unspecified ear] Onset: 6 10-02-2015 Chronic Esophageal disorders (1 source) Gastroesophageal reflux disease; Translations: [Gastro-esophageal reflux disease without esophagitis] Onset: 6 10-02-2015 Chronic Immunity disorders (1 source) Polyclonal hypergammaglobulinemia ; 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 ] Onset: 5 05-20-2015 Chronic Non-Hodgkin`s lymphoma (2 sources) Waldenstrom macroglobulinemia; Translations: [WALDENSTROM MACROGLOBULINEMIA] Onset: 9 Chronic Nutritional deficiencies (1 source) Vitamin D deficiency; Translations: [Vitamin D deficiency, unspecified] Onset: 6 10-02-2015 Chronic Osteoarthritis (1 source) Osteoarthrosis of the carpometacarpal joint of the thumb; Translations: [Unilateral primary osteoarthritis of first carpometacarpal joint, left hand] Onset: 4 03-12-2014 Chronic Other gastrointestinal disorders (1 source) Irritable bowel syndrome; Translations: [Irritable bowel syndrome without diarrhea] Onset: 6 10-02-2015 Chronic Other nervous system disorders (1 source) Ulnar neuropathy; Translations: [Lesion of ulnar nerve, left upper limb] Onset: 4 03-12-2014 Chronic Systemic lupus erythematosus and connective tissue disorders (1 source) Other giant cell arteritis; Translations: [OTHER GIANT CELL ARTERITIS] Onset: 9 Chronic Thyroid disorders (1 source) Hypothyroidism; Translations: [Hypothyroidism, unspecified] Onset: 6 10-02-2015 Chronic Past or Other Problems Problem Classification Problem Date Documented Date Episodic/Chronic Other bone disease and musculoskeletal deformities (1 source) Osteopenia; Translations: [Other specified disorders of bone density and structure, unspecified site] Onset: 10-02-2015 10-02-2015 Episodic Other connective tissue disease (2 sources) Pain in thumb ; Translations: [Bicipital tenosynovitis] Onset: 01-29-2014 03-12-2014 Episodic Other nervous system disorders (1 source) Paresthesia of lower extremity; Translations: [Paresthesia of skin] Onset: 01-20-2016 01-20-2016 Episodic Other non-traumatic joint disorders (2 sources) Pain in unspecified shoulder; Translations: [Hand joint pain] Onset: 01-29-2014 01-30-2014 Episodic Spondylosis; intervertebral disc disorders; other back problems (1 source) Lumbar radiculopathy; Translations: [Radiculopathy, lumbar region] Onset: 06-17-2014 06-17-2014 Episodic Sprains and strains (1 source) Sprain of carpometacarpal joint; Translations: [Sprain of carpometacarpal (joint) of hand] Onset: 04-11-2014 04-12-2014 Episodic Unclassified (1 source) Family history of malignant neoplasm of trachea, bronchus and lung; Translations: [Family history of malignant neoplasm of trachea, bronchus and lung] 05-06-2015 Episodic Unclassified (1 source) Screening for malignant neoplasm of colon ; Translations: [Encounter for screening for malignant neoplasm of colon] Onset: 01-20-2016 Resolved: 01-24-2016 01-20-2016 Results Test Name Value Interpretation Reference Range Facil [facility] Vital Signs Date Time Vital Sign Value Performing Clinician Facility 08-17-2016 11:26-0500 BMI (Body Mass Index) 36.53 kg/m2 [facility] Work Phone: 08-17-2016 11:26-0500 Body Temperature 97.5 [degF] [facility] Work Phone: 08-17-2016 11:26-0500 BP Diastolic 75 mm[Hg] [facility] Work Phone: 08-17-2016 11:26-0500 BP Systolic 121 mm[Hg] [facility] Work Phone: 08-17-2016 11:26-0500 BSA (Body Surface Area) 1.94 m2 [facility] Work Phone: 08-17-2016 11:26-0500 Height 158.75 cm [facility] Work Phone: 08-17-2016 11:26-0500 Pulse (Heart Rate) 69 /min [facility] Work Phone: 08-17-2016 11:26-0500 Respiratory Rate 20 /min Lata [facility] Work Phone: 08-17-2016 11:26-0500 Weight 92.08 kg [facility] Work Phone: 08-17-2016 11:26-0500 Weight 92.27 kg Lata SIFUENTES [facility] Work Phone: 05-06-2015 10:00-0500 Height 158.75 cm Lata SIFUENTES [facility] Work Phone: Encounters Encounter Date Encounter Type Care Provider Facility Start: 11-20-2021 End: 11-20-2021 Subsequent hospital visit by physician Layla Holm MD Work Phone: [facility] Procedures Date Procedure Procedure Detail Performing Clinician Start: 11-20-2021 Ecg routine ecg w/le ast 12 lds i&r only Start: 08-17-2016 End: 08-17-2016 *CMP Complete Metabolic Panel Gopi Astorga DO Start: 08-17-2016 End: 08-19-2016 *SPEP (Serum Protein Electrophoresis) Gopi Astorga DO Start: 08-17-2016 End: 08-19-2016 *UPEP Gopinatalee Astorga DO Start: 08-17-2016 End: 08-19-2016 [id number]-[id number] [Mass/volume] in Serum or Plasma Gopi Astorga DO Start: 08-17-2016 End: 08-19-2016 IgA [Mass/volume] in Serum or Plasma Gopi Astorga DO Start: 08-17-2016 End: 08-19-2016 IgG [Mass/volume] in Serum or Plasma Gopi Astorga DO Start: 08-17-2016 End: 08-19-2016 IgM [Mass/volume] in Serum or Plasma Gopinatalee Astorga DO Start: 11-18-2015 End: 11-18-2015 *CMP Complete Metabolic Panel Gopinatalee Astorga DO Start: 11-18-2015 End: 11-20-2015 [id number] [Mass/volume] in Serum or Plasma Gopi Clara Astorga DO Plan of Treatment Date Care Activity Detail Author Start: 02-25-2022 Influenza vaccination INFLUENZA (Season Ended) [facility] Start: 02-23-2022 DIABETES SCREEN DIABETES SCREEN [facility] Start: 06-27-2021 ADVANCE DIRECTIVE DISCUSSION ADVANCE DIRECTIVE DISCUSSION [facility] Start: 05-26-2017 End: 05-26-2017 Appointment Appointment [facility] Work Phone: Start: 08-17-2016 End: 02-17-2016 *CBC with Differential *CBC with Differential [facility] Work Phone: Start: 08-17-2016 End: 08-17-2016 *CMP Complete Metabolic Panel *CMP Complete Metabolic Panel [facility] Work Phone: Start: 08-17-2016 End: 08-19-2016 *SPEP (Serum Protein Electrophoresis) *SPEP (Serum Protein Electrophoresis) [facility] Work Phone: Start: 08-17-2016 End: 08-19-2016 *UPEP *UPEP [facility] Work Phone: Start: 08-17-2016 End: 08-19-2016 Zuff-7-Qgclvzalexsjq *B2MIC - Beta-2 Microglobulin [facility] Work Phone: Start: 08-17-2016 End: 08-19-2016 IgA *MOHIT Immunoglobulin A (IgA) [facility] Work Phone: Start: 08-17-2016 End: 08-19-2016 IgG *IMG Immunoglobulin G (IgG) [facility] Work Phone: Start: 08-17-2016 End: 08-19-2016 IgM *IMM Immunoglobulin (IgM) [facility] Work Phone: Start: 02-17-2016 End: 11-20-2015 *CBC with Differential *CBC with Differential [facility] Medical [facility] Work Phone: Start: 02-17-2016 End: 11-20-2015 *CMP Complete Metabolic Panel *CMP Complete Metabolic Panel [facility] Work Phone: Start: 02-17-2016 End: 11-20-2015 *SPEP (Serum Protein Electrophoresis) *SPEP (Serum Protein Electrophoresis) [facility] Work Phone: Start: 02-17-2016 End: 11-20-2015 *UPEP *UPEP [facility] Work Phone: Start: 02-17-2016 End: 11-20-2015 Eeoq-5-Xwztrhjdmqpta *B2MIC - Beta-2 Microglobulin [facility] Work Phone: Start: 11-18-2015 End: 08-20-2015 *CBC with Differential *CBC with Differential [facility] Medical [facility] Work Phone: Start: 11-18-2015 End: 11-18-2015 *CMP Complete Metabolic Panel *CMP Complete Metabolic Panel [facility] Work Phone: Start: 11-18-2015 End: 08-20-2015 *MISC - Miscellaneous Lab Test #1 *MISC - Miscellaneous Lab Test #1 [facility] Work Phone: Start: 11-18-2015 End: 08-20-2015 *SPEP (Serum Protein Electrophoresis) *SPEP (Serum Protein Electrophoresis) [facility] Work Phone: Start: 11-18-2015 End: 11-20-2015 Tmqg-8-Askreazjuzirj *B2MIC - Beta-2 Microglobulin [facility] Work Phone: Start: 11-18-2015 End: 11-20-2015 Rheumatology Referral Rheumatology Referral [facility], [address] [place], [address] [facility] Work Phone: Start: 08-19-2015 End: 05-20-2015 *CBC with Differential *CBC with Differential [facility] Work Phone: Start: 08-19-2015 End: 05-20-2015 *CMP Complete Metabolic Panel *CMP Complete Metabolic Panel [facility] Work Phone: Start: 08-19-2015 End: 05-20-2015 *SPEP (Serum Protein Electrophoresis) *SPEP (Serum Protein Electrophoresis) [facility] Work Phone: Start: 08-19-2015 End: 05-20-2015 Erythrocyte sedimentation rate *Sedimentation Rate (ESR) [facility] Work Phone: Start: 08-19-2015 End: 05-20-2015 Lactate dehydrogenase (LDH) *LDH -LDH (Lactate Dehydrogenase) [facility] Work Phone: Start: 08-19-2015 End: 05-20-2015 Urate *Uric Acid Blood [facility] Work Phone: Start: 2015 BONE DENSITY BONE DENSITY [facility] Start: 2015 zzPNEUMOVAX AGE 65 AND OVER WITH 5YR LOOKBACK (Retired) (#1) zzPNEUMOVAX AGE 65 AND OVER WITH 5YR LOOKBACK (Retired) (#1) [facility] Start: 06-17-2014 End: 06-17-2014 EMG EMG [facility] Work Phone: Start: 06-17-2014 End: 06-17-2014 Nerve Conduction Nerve Conduction [facility] Work Phone: Start: 03-12-2014 End: 03-12-2014 EMG EMG [facility] Work Phone: Start: 03-12-2014 End: 03-12-2014 Nerve Conduction Nerve Conduction [facility] Work Phone: Start: 03-12-2014 End: 03-12-2014 Radex hand minimum 3 views X-Ray, Hand [facility] Work Phone: Start: 2000 SHINGRIX VACCINE (1 of 2) SHINGRIX VACCINE (1 of 2) [facility] Start: 1995 COLOGUARD (FIT-DNA) COLOGUARD (FIT-DNA) [facility] Start: 1995 Colonoscopy COLONOSCOPY [facility] Start: 1995 COLORECTAL CANCER SCREENING COLORECTAL CANCER SCREENING [facility] Start: [address] COLONOGRAPHY [facility] Start: 1995 FECAL OCCULT BLOOD FECAL OCCULT BLOOD [facility] Start: 1995 LIPID SCREEN LIPID SCREEN [facility] Start: 1995 SIGMOIDOSCOPY SIGMOIDOSCOPY [facility] Start: 1990 Mammography MAMMOGRAM [facility] Start: 1969 Urine microalbumin profile DTAP,TDAP,TD (1 - Tdap) [facility] Start: 1962 Adult depression screening assessment DEPRESSION SCREENING [facility] Start: 1955 COVID-19 VACCINE (#1) COVID-19 VACCINE (#1) [facility] Payers Date Payer Category Payer Medicare MMO MEDICARE MMO [employer] PPO [id number] 2018-Present [phone] [address] [place] [address] PPO [id number] 1959 Unknown [id number] 1950 Unknown [id number] 1950 Unknown [id number] Social History Date Type Detail Facility Tobacco smoking stat us GAIS Never smoked tobacco [facility] Start: 08-28-2020 Alcohol intake Current non-dr vamp presser of alcohol (finding) [facility] Start: 1950 Sex Assigned At Not on file [facility] Progress note 08-28-2020 Note Date & Type Note Facility 08-28-2020 Note HNO ID: [id number] Author: Brisa (Erika Brandon Service: ? Author Type: Nurse Practitioner Type: Progress Notes Filed: 08/28/2020 3:35 PM Note Text: China Beltran is a 70 year old female who presents for problem visit Vaginal redness and burning. HPI: One month history of vulvar and anal area redness and burning. No blisters, no itching. Has tried nystatin powder that she uses under her breasts without relief of symptoms. No discharge or odor. Changed brand of incontinence pads just prior to onset of symptoms. States is hardly ever wet but needs to wear pad for confidence. Denies urinary symptoms. Not sexually active. PAST MEDICAL HISTORY Diagnosis Date - Heart attack (HCC) 06/20/2018 - Irritable bowel syndrome IBS - Meniere's disease, unspecified - Other premature beats PVC's - Pain in joint, site unspecified - Rosacea - Unspecified asthma(493.90) PAST SURGICAL HISTORY Procedure Laterality Date - ANESTH, SECTION - BIOPSY, TEMPORAL - , CLASSIC, ANTE/POST CA 01/10/1989 - EXCISE CUTANEOUS NEUROMA - EYE SURGERY HX retinal tear left eye - PRQ CARDIAC STENT W/ANGIO 1 VSL - STENTS (SPECIFY) N/A 06/20/2018 2 Stents post Heart attack FAMILY HISTORY Problem Relation Age of Onset - Cancer Father skin - Blood Disease Father polycythemia vera - Cancer Mother skin - Parkinson?s Disease Maternal Grandmother - Stroke Paternal Grandmother - Hypertension Paternal Grandmother - Cancer Maternal Grandfather lung Social History Tobacco Use - Smoking status: Never Smoker - Smokeless tobacco: Never Used Substance Use Topics - Alcohol use: No - Drug use: No Current Outpatient Medications Medication Sig - propylene glycol/peg 400 (SYSTANE ULTRA OPHTHALMIC) Use 1 Drop in eyes once daily. - propylene glycol/peg 400 (SYSTANE LIQUID GEL OPHTHALMIC) Use 1 Drop in eyes. - dilTIAZem CR (TIAZAC, TAZTIA XT) 120 mg 24 hr capsule Take 120 mg by mouth once daily. - Flaxseed Oil oil 1 tablet once daily. - Cholecalciferol, Vitamin D3, (VITAMIN D-3) 50 mcg (2,000 unit) cap Take 1 capsule by mouth. - Omeprazole 40 mg capsule Take 40 mg by mouth once daily. - levothyroxine (LEVOXYL) 50 mcg tablet Take 50 mcg by mouth daily before breakfast. - clopidogrel (PLAVIX) 75 mg tablet Take 75 mg by mouth once daily. - losartan (COZAAR) 25 mg tablet Take 12.5 mg by mouth once daily. - predniSONE (DELTASONE) 5 mg tablet Take 7.5 mg by mouth once daily. - aspirin, enteric coated (ASPIRIN, ENTERIC COATED) 81 mg EC tablet Take 81 mg by mouth once daily. - hydroCHLOROthiazide (HYDRODIURIL, ESIDRIX) 12.5 mg tablet Take 12.5 mg by mouth once daily. - potassium chloride (K-TAB) 10 mEq tablet Take 20 mEq by mouth once daily. - atorvastatin (LIPITOR) 80 mg tablet Take 80 mg by mouth once daily. - METROGEL 1 % TOPICAL - ALBUTEROL 90 MCG/ACTUATION AEROSOL INHALER Inhale one(1) - two(2) puffs four(4) times a day as needed for wheezing and shortness of breath. - carvedilol (COREG) 3.125 mg tablet Take 3.125 mg by mouth twice daily with meals. - INDERAL LA 60 MG 24 HR CAP once daily - PROTONIX 40 MG TAB Take one(1) tablet daily. - SINGULAIR 10 MG TAB Take one(1) tablet daily at bedtime. - ANTIVERT 25 MG TAB PRN No current facility-administered medications for this visit. Allergies As of Date: 08/28/2020 Allergen Noted Reaction BACTRIM [SULFAMETHOXAZOLE-TRIMETH*07/25/2006 BIAXIN [CLARITHROMYCIN] 07/25/2006 CODEINE 07/25/2006 IODINE DYE [CONTRAST DYE] 07/25/2006 Anaphylaxis LISINOPRIL 02/23/2019 Cough PENICILLINS 07/25/2006 ZEPHREX LA [PSEUDOEPHEDRINE-GUAIF*07/25/2006 Rash Fully Assessed 08/28/2020 REVIEW OF SYSTEMS Abdomen: No bloating, early satiety, indigestion, or increased flatulence. No abdominal pain, nausea, vomiting, diarrhea, or constipation. Bladder: No dysuria, gross hematuria, urinary frequency, urinary urgency. Occasional stress incontinence. Allergies and current medication updated:Yes EXAM: BP 127/72 Ht 5' 0 (1.52m) Wt 201 lb (91.2kg) BMI 39.26 kg/(m2). GENERAL: pleasant, female in no apparent distress CHEST: Normal inspiratory effort ABDOMEN: soft, non-tender and no masses PELVIC: external genitalia normal, normal Bartholin's glands, urethra, [place]'s glands, no vulvar lesions, no cervical lesions, physiologic discharge present, normal appearing perineal body and perianal region, atrophy. Vulva and perineum with moderate erythema. No lesions or plaques. BIMANUAL: uterus normal size, shape and consistency, no adnexal masses and non-tender NEURO: alert and oriented x3,exam grossly non-focal ASSESSMENT/PLAN: 1. Vulvar dermatitis - ICD9: 692.9, ICD10: L30.9 - BACT/INDIA VAG GRAM STAIN - CLOTRIMAZOLE-BETAMETHASONE 1 %-0.05 % TOPICAL CREAM - Go back to using previous brand of pads. - Limit wearing of pads. - Aquaphor or Desitin or AANDD to protect skin. Follow-up as needed. Brisa Gibbs (more content not included)... [facility] Summary Purpose Family History No Family History Records FoundNo Family History Records FoundNo Family History Records FoundNo Family History Records Found Advance Directives No Advanced Directives Records FoundNo Advanced Directives Records FoundNo Advanced Directives Records FoundNo Advanced Directives Records Found Additional Source Comments INFORMATION SOURCE (unrecogn ized section and content) DATE CREATED AUTHOR AUTHOR'S ORGANIZ ATION 08/06/2021 [facility] DATE CREATED AUTHOR AUTHOR'S ORGANIZ ATION 10/06/2021 [facility] DATE CREATED AUTHOR AUTHOR'S ORGANIZ ATION 11/26/2021 [facility] Romero Source Comments (unrecognize d section and content) In the event this informatio n is protected by the Federal Confidentiality of Alcohol and Drug Abuse Patient Records regulations: The Federal rules restrict any use of the information to criminally investigate or prosecute any alcohol or drug abuse patient.[facility] Care Teams (unrecognized sec tion and content) FOR RECORDS PERTAINING TO PATIENTS WHO ARE OR HAVE BEEN ENROLLED IN A CHEMICAL DEPENDENCY/SUBSTANCEABUSE PROGRAM, SOME INFORMATION MAY BE OMITTED. This clinical summary was aggregated from multiple sources. Caution should be exercised in using it in the provision of clinical care. This summary normalizes information from multiple sources, and as a consequence, information in this document may materially change the coding, format and clinical context of patient data. In addition, data may be omitted in some cases. CLINICAL DECISIONS SHOULD BE BASED ON THE PRIMARY CLINICAL RECORDS. [employer] [facility] provides no warranty or guarantee of the accuracy or completeness of information in this document.
[2023-09-08 16:10] LABS: PROEL- A/G Ratio 1.4 (0.7-1.7); PROEL- Albumin 3.6 g/dL (2.9-4.4); PROEL- Alpha-1 Globulin 0.3 g/dL (0.0-0.4); PROEL- Alpha-2 Globulin 0.7 g/dL (0.4-1.0); PROEL- Beta Globulin 0.8 g/dL (0.7-1.3); PROEL- Gamma Globulin 0.9 g/dL (0.4-1.8); PROEL- Globulin, Total 2.6 g/dL (2.2-3.9); PROEL- TOTAL PROTEIN 6.2 g/dL (6.0-8.5); PROEL-M-Spike Not Observed g/dL (Not Observed)
== END | disposition home or self-care (01) ==
LOC: BFHLAB 15:37
PROVIDERS: PCP Family Medicine; Visit Provider Family Medicine
DX: I48.0 Paroxysmal atrial fibrillation (principal); M31.6 Other giant cell arteritis; R73.9 Hyperglycemia, unspecified; T38.0X5A Adverse effect of glucocorticoids and synthetic analogues, initial encounter; I25.10 Atherosclerotic heart disease of native coronary artery without angina pectoris; I10 Essential (primary) hypertension; E55.9 Vitamin D deficiency, unspecified; R53.83 Other fatigue; D89.0 Polyclonal hypergammaglobulinemia
CPT/HCPCS: 36415; 80053; 80061; 82306; 82607; 83036; 84165; 84443; 85025; 85652; 86140

== ENCOUNTER → 2023-09-19 | Outpatient (CLI) | payer MEDICARE, SELFPAY ==
[2018-06-21 08:53] VITALS: BMI 38.3
--- NOTE | 2023-09-19 13:44 | BI_ITS ---
MAMMOGRAPHY - BILATERAL SCREENING REASON FOR EXAM: Female, 73 years old. Routine annual screening examination. PERTINENT HISTORY: Non-contributory. TECHNIQUE: Digital bilateral breast zack (3D mammographic acquisition) in the CC and MLO projections. 2-D mediolateral oblique (MLO) and craniocaudad (CC) views of both breasts were obtained. CAD: Full Field Digital Mammography with Computer Added Detection was performed. COMPARISON: Comparison is made with prior study dated July 01, 2022 and June 30, 2001. FINDINGS: Breast Composition: The breasts are almost entirely fatty. There are no dominant masses or suspicious calcifications. Stable fat-containing bilateral axillary lymph nodes. No other significant abnormalities are identified. There has been no significant change since the prior study. BI/SCRN MAMM (CAD)W/ZACK BILAT IMPRESSION: Stable bilateral screening mammogram. Yearly follow-up mammogram recommended. (A) ASSESSMENT CATEGORY: BIRADS Category 2: Benign. A letter regarding these results will be sent to the patient by the facility within 30 days. Approximately 10% of breast cancers are not detected by mammography. A normal mammogram should not delay biopsy of a clinically suspicious abnormality. [id number] Electronically Signed: Donis Rocha MD at 15:03 EDT ,
== END | disposition home or self-care (01) ==
LOC: OPBI 13:42
PROVIDERS: PCP Family Medicine; Referring Provider Family Medicine; Visit Provider Family Medicine
DX: Z12.31 Encounter for screening mammogram for malignant neoplasm of breast (principal)
CPT/HCPCS: 77063; 77067

== ENCOUNTER → 2023-10-04 | Outpatient (CLI) | payer MEDICARE, SELFPAY ==
[2018-06-21 08:53] VITALS: BMI 38.3
--- NOTE | 2023-10-04 14:49 | BD_ITS ---
STUDY: DUAL ENERGY X-RAY ABSORPTIOMETRY / DXA REASON FOR EXAM: Female, 73 years old. V76.12ScreeningBONE DENSITY REASON FOR EXAM TECHNIQUE: Bone Mineral Density (BMD) measurements of lumbar spine and left hip were obtained. COMPARISON: Comparison is made with prior study dated June 30, 2021. FINDINGS: Lumbar Spine (L1-L4): g/cm2 (0.745) / T-score (-2.7) / Z-score (-0.5) Findings are suggestive of osteoporosis with a high fracture risk. Left Femur Total: g/cm2 (0.779) / T-score (-1.3) / Z-score (0.3) Left Femoral Neck: g/cm2 (0.590) / T-score (-2.3) / Z-score (-0.4) The T-Scores on the most recent prior examination were: Lumbar Spine (L1-L4): There has been worsening of bone density since the previous examination. Left Femur Total: which represents a worsening of 8.4%. BD/Dexa Bone Density Study IMPRESSION: The patient is considered osteoporotic as outlined below according to World Naif Organization (WHO) criteria with a high fracture risk. There has been worsening of bone density since the previous examination. Reference Information: The T-score is the number of standard deviations above or below the standard which is normal for young adults at their peak bone mineral density. The World Health Organization (WHO) interprets the T-scores as follows: Above -1 Normal bone density Between -1 and -2.5 Osteopenia Equal to / or below -2.5 Osteoporosis As a practical clinical guideline, osteopenia may be graded as follows: Mild -1 through -1.5 Moderate -1.6 through -2.0 Severe -2.1 through -2.4 The Z-score is the number of standard deviations above or below age-matched controls. A Z-score of less than -1.5 would be considered abnormal. References: 1. NIH Osteoporosis and Related Bone Diseases www osteo.org 2. International Society for Clinical Densitometry www iscd.org 3. National Osteoporosis Foundation www nof.org Electronically Signed: Donis Rocha MD at 11:01 EDT ,
== END | disposition home or self-care (01) ==
LOC: OPBD 14:29
PROVIDERS: PCP Family Medicine; Referring Provider Family Medicine; Visit Provider Family Medicine
DX: M81.0 Age-related osteoporosis without current pathological fracture (principal)
CPT/HCPCS: 77080

== ENCOUNTER 2024-01-30 13:00 | Outpatient (RCR) | payer MEDICARE, SELFPAY ==
[2023-10-10 14:22] VITALS: BMI 38.3
--- NOTE | 2023-12-12 11:00 | HP.PTEVAL_ITS ---
Patient's Visit Information Visit Information Visit Information: CHELSEY TOLLIVER is a 73 year old F referred to Physical Therapy by Dr. Juan Toney MD with a diagnosis of SPONDYLOLISTHESIS SITE. Date of Evaluation: 12/12/23 Physical Therapist: Brandyn Fischer PT, Cert MDT, OCS Visit Plan Frequency: 2x /Week Duration: 4 Weeks Plan: PRECAUTIONS: OSTEOPOROSIS 3MM ANTEROLISTHESIS PATIENT ALSO IS CANDIDATE FOR THR RIGHT PT INTERVENTIONS DLS ,POSTURAL EX'S ,LE FLEXABILITY ,STRENGTHENING (HIP ) AND MODATIES PRN Subjective Subjective: This 73 y/o female presents to physical therapy with lumbar pain . Patient has lumbar pain 2021 and had episode of falling. Seen DR Ramey to have orthopedic THR right side in past but unable to to do surgery . Patient seen DR Warner had x-rays 3 mm of anterolisthesis of L4 on L5. Patient wants to do MRI and RTD in 6weeks .Patient has osteoporosis Pain located symmetrical lumbar and groin right hip. Aggravating walking/standing ,bending/lifting . Alleviating factors resting ,uses cane and relieve by leaning on cart. Patient has tingling in leg. Patient pain affected by sleeping but sleeps on side. Co ughing/sneezing-. Bowel/bladder-. No medication for osteoporosis or pain. Patient pain pain affects QOL and function/walking. Patient ahs multiple comorbities to influence condition. Patient goals to decrease pain. Patient had bone density test showed severe osteoporosis. SOCIAL: single Pain Bilateral Back: Pain Intensity (Out of 10): 4 Pain Intensity Range: 10 Objective Objective: POSTURE: mild forward posture mod thoracic kyphosis GAIT: mild forward posture hips/knees flexed with cane NEURO: denies paresthesia/tingling ,reflexes L3-4 ,L4-5 ,L5-S1 ASYMMETRIES': pelvis align LUMBAR ROM: flexion mod loss ,extension mod/severe loss , side glides mod FLEXIBILITY: hamstrings mod tight PROM: hip flexion 90 degrees , IR 0 degrees Special Tests L/S Slump test left side: Negative L/S Slump test right side: Negative L/S Left Straight Leg Raise: Negative L/S Right Straight Leg Raise: Negative Lumbar Standing: Flexion - Mechanical Response: No effect Lumbar Standing: Flexion - Symptoms During Testing: Increases Lumbar Standing: Flexion - Symptoms After Testing: No worse Lumbar Standing: Extension - Mechanical Response: No effect Lumbar Standing: Extension - Symptoms During Testing: Increases Lumbar Standing: Extension - Symptoms After Testing: No worse Lumbar Standing: Right Side Glides - Mechanical Response: No effect Lumbar Standing: Right Side [place] - Symptoms During Testing: No effect Lumbar Standing: Right Side [place] - Symptoms After Testing: No effect Lumbar Standing: Left Side [place] - Mechanical Response: No effect Lumbar Standing: Left Side [place] - Symptoms During Testing: No effect Lumbar Standing: Left Side [place] - Symptoms After Testing: No effect R Hip Scour: Positive Balance/Special Test Scores Oswestry Low Back Score: 30 Goals Goal 1:: I with HEP for back Goal Time Frame: 4-6 Weeks Goal 2:: Patient to demonstrate 50% improvement with less pain and improved function. Goal Time Frame: 4-6 Weeks Goal 3:: Patient improve lumbar ROM for function of recovery to tie shoes. Goal Time Frame: 4-6 Weeks Goal 4:: Patient to improve back oswestry score by 5 points to improve QOL and function Goal Time Frame: 4-6 Weeks Goal 5:: Patient to improve ability to walk and stand with less pain and improve function. Goal Time Frame: 4-6 Weeks Rehabilitation Potential Physical Therapy Diagnosis: Patient has lumbar pain 3mm anterolisthesis from x- rays and right groin pain with pain with positioning ,motion testing worse with walking and standing affects affects housework tasks and ADLS Rehabilitation Potential: Good Anticipated Interventions Patient/Client Instruction: Educate patient on: Condition and Plan of Care For the Purpose of:: To decrease pain, To increase ROM, To improve muscle performance and motor function, To improve ability to perform ADL's, To increase tolerance to activity/condition/position, To improve ability of physical actions for home/community/work/leisure, To improve gait and locomotor functions, To improve health of tissue, To decrease soft tissue restriction, To increase flexibility/ROM and To prevent re-injury Therapeutic Exercise to Include: Strength training, Postural training, Flexibilty training and Dynamic Lumbar Stabilization Comment: BLE For the Purpose of:: To decrease pain, To increase ROM, To improve muscle performance and motor function, To improve ability to perform ADL's, To increase tolerance to activity/condition/position, To improve ability of physical actions for home/community/work/leisure, To improve health of tissue, To decrease soft tissue restriction, To increase flexibility/ROM, To improve endurance and To improve balance TENS: Yes IF ES: Yes Cryotherapy (ice pack, ice massage): Yes Thermo therapy (hot pack): Yes Ultrasound (thermal/non thermal): Yes For the Purpose of:: To decrease pain, To increase ROM, To improve health of tissue and To decrease soft tissue restriction Text: Thank you for the opportunity to evaluate your patient. For Medicare and Medicare HMO plans, please review the plan of care and approve it. It will need to be FAXED BACK to us at [phone] for Medicare purposes. For Medicare only, by signing this I certify the plan of care. Please let me know if there are questions or concerns regarding this plan of care. Physician Signature: Date:
--- NOTE | 2024-01-30 13:51 | HP.PTDCSUM ---
Discharge Summary D/C summary: It has been my pleasure to treat CHELSEY TOLLIVER referred by Dr. Juan Toney MD, with the diagnosis of SPONDYLOLISTHESIS SITE for a total of 9 visit(s). Discharge Date: 01/30/24 Please see the following information for a summary of their discharge status. Subjective Subjective: Doing well .. plan to get silver sneakers Pain Bilateral Back: Pain Intensity (Out of 10): 0 R hip: Pain Intensity (Out of 10): 4 Overall Improvement % Improvement: 100 Objective Objective/Function: POSTURE: mild forward posture MILD thoracic kyphosis GAIT: mild forward posture hips/knees flexed with cane NEURO: denies paresthesia/tingling ,reflexes L3-4 ,L4-5 ,L5-S1 ASYMMETRIES': pelvis align LUMBAR ROM: flexion MIN loss ,extension MIN , side glides mod FLEXIBILITY: hamstrings mod tight PROM: hip flexion 98 degrees , IR 0 degrees Goals Goal 1:: I with HEP for back Goal Progress: Goal Met Goal 2:: Patient to demonstrate 50% improvement with less pain and improved function. Goal Progress: Goal Met Goal 3:: Patient improve lumbar ROM for function of recovery to tie shoes. Goal Progress: Goal Met Goal 4:: Patient to improve back oswestry score by 5 points to improve QOL and function Goal Progress: Goal Met Goal 5:: Patient to improve ability to walk and stand with less pain and improve function. Goal Progress: Goal Met Plan Plan: D/C D/C Information Discharge Comments: HEP d/c sentence: If there are questions or concerns regarding this patient's physical therapy, please feel free to call me at [phone]. Thank you for the referral of this patient. Sincerely, Brandyn Fischer, PT, Cert MDT, OCS Balance/Gait/Functional tests Balance/Special Test Scores Oswestry Low Back Score: 9 Improvement % Improvement: 100
== END 2024-01-30 19:00 | disposition home or self-care (01) ==
LOC: PT 13:00
PROVIDERS: PCP Family Medicine; Referring Provider Orthopaedic Surgery Orthopaedic Surgery of the Spine; Visit Provider Orthopaedic Surgery Orthopaedic Surgery of the Spine
DX: M43.10 Spondylolisthesis, site unspecified (principal)
CPT/HCPCS: 97110; 97162; 97530

== ENCOUNTER → 2024-03-26 | Outpatient (CLI) | payer MEDICARE, SELFPAY ==
[2023-10-10 14:22] VITALS: BMI 38.3
[2024-03-26 13:33] LABS: Erythrocyte Sedimentation Rate 15 mm/hr (0-30)
[2024-03-26 13:35] LABS: Absolute Lymphocyte Count 1.83 X10^3/uL (0.83-4.51); Absolute Neutrophil Count 4.7 X10^3/uL (2.0-7.7); Basophil# 0.06 X10^3/uL; Basophil% 0.8 % (0-1); Eosinophil# 0.19 X10^3/uL; Eosinophils% 2.5 % (0-5); Hematocrit 33.9 % (37-47); Hemoglobin 10.2 g/dL (12.0-15.0); Lymphocyte # 1.83 X10^3/ul (0.83-4.51); Lymphocyte % 24.5 % (19-41); Mean Corp Hgb Conc 30.1 g/dL (32-36); Mean Corpuscular Volume 86.5 fL (81-99); Mean Platelet Vol. 10.5 fl (6.2-12.0); Monocyte# 0.61 X10^3/uL; Monocyte% 8.2 % (0-10); NRBC Flagged by Analyzer 0 % (0-5); Neutrophil # 4.74 X10^3/uL (2.7-7.7); Neutrophil % 63.6 % (47-70); Platelet Count 194 K/mm3 (150-450); RBC Distribution Width CV 14.6 % (11.6-14.6); RBC Distribution Width SD 46.4 fl (35.1-43.9); Red Blood Count 3.92 M/mm3 (4.2-5.4); White Blood Count 7.5 K/mm3 (4.4-11.0)
[2024-03-26 13:50] LABS: CRP < 2.90 mg/L (0.0-3.0)
== END | disposition home or self-care (01) ==
PROVIDERS: PCP Family Medicine; Referring Provider Ophthalmology; Visit Provider Ophthalmology
DX: R51.9 Headache, unspecified (principal)
CPT/HCPCS: 36415; 85025; 85652; 86140

== ENCOUNTER 2024-04-15 14:57 | Inpatient (IN) | payer MEDICARE, SELFPAY ==
[2023-10-10 14:22] VITALS: BMI 38.3
[2024-04-15 14:58] VITALS: BP 132/62; PULSE 83; RESP 19; TEMP 36; O2SAT 97; BMI 32.8
--- NOTE | 2024-04-15 16:25 | CT_ITS ---
STUDY: CT Abdomen And Pelvis W/ Contrast Injection 04/15/2024 6:03 PM REASON FOR EXAM: Female, 73 years old. Abdominal pain Abdominal pain Individualized dose optimization techniques were used for this CT. COMPARISON: 3.2. TECHNIQUE: CT Abdomen And Pelvis W/ Contrast Injection IV 100mL [id number] FINDINGS: There are atherosclerotic calcifications of visualized coronary arteries. The visualized portions of the heart are within normal limits. Normal liver. Contracted gallbladder with gallbladder wall enhancement may suggest an inflammatory process. Normal spleen. Normal pancreas. Normal bilateral adrenal glands. No acute findings of the right kidney. No acute findings of the left kidney. Normal visualized stomach. Normal small intestine. There are multiple colonic diverticula consistent with diverticulosis. The appendix is visualized and appears normal. There are calcifications of the abdominal aorta. This is consistent for atherosclerotic disease. There is NO abdominal aortic aneurysm. Vascular workup can be obtained based on clinical correlation. Normal inferior vena cava. Subcentimeter mesenteric lymph nodes. Normal urinary bladder. There is atrophy of the uterus. There is an umbilical hernia containing fat. Normal osseous structures. CT/Abdomen/Pelvis W IV Cont ONLY IMPRESSION: (NOT LISTED IN ORDER OF SIGNIFICANCE) Contracted gallbladder with gallbladder wall enhancement may suggest an inflammatory process. Other findings as above. Electronically Signed: David Hackett MD at 18:08 EDT ,
--- NOTE | 2024-04-15 16:26 | EDS_ITS ---
HPI HPI - GI History of Present Illness Chief Complaint: Abd Pain Narrative Narrative: 73-year-old female past medical history of coronary artery disease, hypertension, previous atrial fibrillation, hypothyroidism presents with periumbilical abdominal pain, nausea, and vomiting, that she has had since , approximately 3 days ago after eating black pepper chicken. She states she has eaten it previously, but started having abdominal pain afterwards and the next day had so much nausea and vomiting to the point where she was dry heaving. She states she tried to eat light over the last 2 days but still has periumbilical abdominal pain. No exacerbating or alleviating factors. No previous abdominal surgeries. She denies any problems with bowel movements, no diarrhea, no dysuria or hematuria but thinks her urine is darker. She presents because the continued pain that is more towards the middle of her abdomen. [facility] Medical History COVID-19 (~06/2021) History of WI (myocardial infarction) History of coronary artery disease Essential hypertension Monoclonal gammopathy of unknown significance (MGUS) Monoclonal gammopathy Temporal arteritis Osteoarthritis of left shoulder Asthma HLD (hyperlipidemia) HTN (hypertension) Atherosclerotic heart disease of [place] coronary artery without angina pectoris Acute ST elevation myocardial infarction GERD (gastroesophageal reflux disease) Hypothyroidism M?ni?re's disease Retinal tear of left eye Ulnar neuropathy Polyclonal gammopathy GERD (gastroesophageal reflux disease) IBS (irritable bowel syndrome) Vitamin D deficiency Osteopenia Incontinence Knee pain PVC's (premature ventricular contractions) SOB (shortness of breath) Arthritis Home Medications ?Medication ?Instructions ?Recorded ?Last Taken ?Type levothyroxine 50 mcg tablet 50 mcg PO DAILY Thyroid 12/31/16 08/08/21 History metronidazole 0.75 % topical cream 1 applicatio topical DAILY rosacea 07/03/18 08/08/21 History 68 days #135 grams acetaminophen 500 mg tablet 500 - 1,000 mg PO DAILY PRN PRN 08/06/20 08/01/20 History Pain 1-10 Or Fever potassium chloride 20 mEq 20 meq PO DAILY supplement 09/22/20 08/08/21 History tablet,extended release(part/cryst) omeprazole 40 mg capsule,delayed 40 mg PO DAILY gerd 08/05/21 08/08/21 History release atorvastatin 80 mg tablet 80 mg PO QHS cholesterol 08/08/21 08/07/21 History hydrochlorothiazide 25 mg tablet 25 mg PO DAILY 08/28/21 Unknown History cholecalciferol (vitamin D3) 50 2,000 unit PO DAILY SUPPLEMENT 04/05/22 Unknown History mcg (2,000 unit) capsule losartan 25 mg tablet 25 mg PO DAILY blood pressure #90 07/06/23 Unknown Rx tabs metoprolol tartrate 50 mg tablet 50 mg PO BID this is a dose 09/28/23 Unknown Rx increase #180 tabs mecobalamin (vitamin B12) 1,000 1,000 mcg sublingual DAILY 10/26/23 Unknown History mcg disintegrating tablet,sublingual aspirin 81 mg chewable tablet 81 mg PO DAILY #30 tabs 12/21/23 Unknown Rx Allergy/AdvReac Type Severity Reaction Status Date / Time clarithromycin (From Biaxin) Allergy Rash Verified 04/15/24 15:00 sulfamethoxazole (From Allergy Rash Verified 04/15/24 15:00 Bactrim) trimethoprim (From Bactrim) Allergy Rash Verified 04/15/24 15:00 carvedilol (From Coreg) AdvReac Intermediate Nausea, Verified 04/15/24 15:00 Lightheaded codeine AdvReac Upset Verified 04/15/24 15:00 Stomach lisinopril AdvReac cough Verified 04/15/24 15:00 Penicillins AdvReac Other Verified 04/15/24 15:00 Family History Mother Cancer skin Anemia Father Cancer Heart disease Surgical History History of temporal artery biopsy (~12/2018) History of delivery Stented coronary artery (06/20/18) History of dilatation and curettage Hx of breast biopsy Hx of tonsillectomy Social History Smoking Status: Never smoker alcohol intake: never substance use type: does not use caffeine: No ROS ROS ED ROS Narrative Constitutional: No fever, no chills. HEENT: No sore throat. No neck pain. No loss of vision. No rhinorrhea. Cardiovascular: No chest pain. No palpitations. No pedal edema. Respiratory: No cough, no shortness of breath. Abdominal: Periumbilical abdominal pain. Positive nausea and vomiting, no diarrhea. Genitourinary: No dysuria. No hematuria. Musculoskeletal: No myalgias. No arthralgias. Neurologic: No headaches. No dizziness. No lightheadedness. Skin: No rash. No change in color. EXAM Physical Exam Narrative Exam Narrative: Afebrile. Vital signs noted. Nontoxic-appearing. Regular rate and rhythm. Lungs are clear to auscultation bilaterally. Abdomen soft with minimal tenderness to palpation in left upper quadrant and in the periumbilical area. Neurological examination is nonfocal and nonlateralizing. Awake, alert, oriented. Const Vital Signs: 04/15/24 14:58 04/15/24 16:57 04/15/24 18:00 Temperature 96.8 F L Temperature Source Temporal Pulse Rate 83 78 74 Respiratory Rate 19 H Blood Pressure 132/62 H 112/100 H 127/52 H Blood Pressure Mean 85 104 77 Pulse Ox 97 96 Oxygen Delivery Method Room Air Room Air 04/15/24 19:39 Temperature 97.6 F L Temperature Source Pulse Rate 74 Respiratory Rate 18 Blood Pressure 127/52 H Blood Pressure Mean 77 Pulse Ox 98 Oxygen Delivery Method MDM MDM MDM Narrative Medical decision making narrative: Differential diagnosis includes but not limited to partial small bowel obstruction versus ileus versus pancreatitis versus cholecystitis versus diverticulitis. I have low suspicion for cholecystitis based on her lack of right upper quadrant tenderness. She has not had any prior abdominal surgeries to have bowel obstruction. She was given morphine and ondansetron for analgesia. I reviewed her laboratory work, she has normal white count of 7.7, hemoglobin 11.0, hematocrit 34.2, platelet count normal at 163. CMP is remarkable for a glucose of 113. Normal anion gap of 7. LFTs are elevated with an AST of 423, ALT of 618, alk phos 562. Lipase is normal at 21. Urinalysis is negative for infection with 0 WBCs. I do not feel antibiotics are indicated. I reviewed the radiology report of the CT of the abdomen and pelvis and she has contracted gallbladder. There is gallbladder wall enhancement. She may have more of an infectious process. Ultrasound is currently not available at this day in time. I did discuss the patient with Dr. Whitehead with general surgery who suggested the patient may have more of a hepatitis and that the ultrasound is not emergent and can be performed in the morning. She suggested a medicine admission/observation with consult to GI as well. I will discuss patient with the hospitalist. Patient is in stable condition. History & Record Review Discussion w/independent historian: Patient and Friend Lab Data Attestation: I reviewed the patient's lab results. Labs: Laboratory Results - last 24 hr 04/15/24 16:28 WBC 7.7 RBC 4.14 L Hgb 11.0 L Hct 34.2 L MCV 82.6 MCH 26.6 L MCHC 32.2 RDW Std Deviation 44.6 H RDW Coeff of Agnieszka 14.8 H Plt Count 163 MPV 12.6 H Immature Gran % (Auto) 0.300 Neut % (Auto) 75.2 H Lymph % (Auto) 10.9 L [place] % (Auto) 12.5 H Eos % (Auto) 0.8 Baso % (Auto) 0.3 Absolute Neuts (auto) 5.8 Absolute Lymphs (auto) 0.84 Nucleated RBC % 0 Sodium 137 Potassium 3.5 Chloride 104 Carbon Dioxide 26.0 Anion Gap 7 BUN 10 Creatinine 0.68 Estim Creat Clear Calc 57.13 Est GFR (MDRD) Af Amer 109 Est GFR (MDRD) Non-Af 90 BUN/Creatinine Ratio 14.7 Glucose 113 H Calcium 9.5 Total Bilirubin 3.00 H AST 423 H ALT 618 H Alkaline Phosphatase 562 H Total Protein 7.0 Albumin 3.3 Globulin 3.7 Albumin/Globulin Ratio 0.9 Lipase 21 Urine Color Yellow Urine Clarity Clear Urine pH 8.0 Ur Specific [place] 1.015 Urine Protein Negative Urine Glucose (UA) Normal Urine Ketones Negative Urine Occult Blood Negative Urine Nitrite Negative Urine Bilirubin Negative Urine Urobilinogen 1 H Ur Leukocyte Esterase Negative Urine RBC 0 SEEN Urine WBC 0 SEEN Ur Squamous Epith Cells 0-5 SEEN Amorphous Sediment RARE Urine Bacteria 1+ Urine Mucus 0 SEEN Radiography Diagnostic Testing: Clinical Impression(s) from Imaging Studies Abdomen/Pelvis CT 04/15/24 16:25 IMPRESSION: (NOT LISTED IN ORDER OF SIGNIFICANCE) Contracted gallbladder with gallbladder wall enhancement may suggest an inflammatory process. Other findings as above. Electronically Signed: David Hackett MD at 18:08 EDT , Management Discussion w/another healthcare provider: Hospitalist (Dr. Braga) and Disk Grinder Discharge Plan Dx/Rx/DC Orders Clinical Impression: Nausea and vomiting, Elevated liver enzymes, Gallbladder contraction Disposition Disposition: Acute Care Hospital [facility]
[2024-04-15] MEDS: Ondansetron 4 MG/2 ML Vial IV (16:29)
[2024-04-15 16:37] LABS: Mucous, Urine 0 SEEN /hpf (<or=2+); Red Blood Cells-Urine 0 SEEN /hpf (0-5); White Blood Cells 0 SEEN /hpf (0-5)
[2024-04-15 16:39] LABS: Color, Urine Yellow (Yellow); Glucose, Dipstick Normal (Normal); Ketone-Dipstick Negative (Negative); Leukocyte Esterase-Dipstick Negative /ul (Negative); Nitrite-Dipstick Negative (Negative); Occult Blood-Urine Negative /ul (Negative); Protein-Dipstick Negative (Negative); Specific Gravity, Urine 1.015 (1.002-1.030); Urine Bilirubin Dipstick Negative (Negative); Urine Clarity Clear (Clear); Urine Urobilinogen 1 mg/dl (Normal)
[2024-04-15 16:40] LABS: Absolute Lymphocyte Count 0.84 X10^3/uL (0.83-4.51); Absolute Neutrophil Count 5.8 X10^3/uL (2.0-7.7); Basophil# 0.02 X10^3/uL; Basophil% 0.3 % (0-1); Eosinophil# 0.06 X10^3/uL; Eosinophils% 0.8 % (0-5); Hematocrit 34.2 % (37-47); Lymphocyte # 0.84 X10^3/ul (0.83-4.51); Lymphocyte % 10.9 % (19-41); Mean Corp Hgb Conc 32.2 g/dL (32-36); Mean Corpuscular Hgb 26.6 pg (27.0-32.0); Mean Corpuscular Volume 82.6 fL (81-99); Mean Platelet Vol. 12.6 fl (6.2-12.0); Monocyte# 0.97 X10^3/uL; Monocyte% 12.5 % (0-10); NRBC Flagged by Analyzer 0 % (0-5); Neutrophil # 5.82 X10^3/uL (2.7-7.7); Neutrophil % 75.2 % (47-70); Platelet Count 163 K/mm3 (150-450); RBC Distribution Width CV 14.8 % (11.6-14.6); RBC Distribution Width SD 44.6 fl (35.1-43.9); Red Blood Count 4.14 M/mm3 (4.2-5.4); White Blood Count 7.7 K/mm3 (4.4-11.0)
[2024-04-15] MEDS: Morphine 4 MG/ML Syringe IV (16:43)
[2024-04-15 16:44] LABS: Squamous Epithelial Cells - UA 0-5 SEEN /hpf (5-10)
[2024-04-15 16:46] LABS: Amorphous Sediment RARE; Bacteria 1+ /hpf (None Seen)
[2024-04-15 16:56] LABS: ALB/GLOB Ratio 0.9 RATIO (0.9-2.4); AST(SGOT) 423 U/L (15-37); Alanine Aminotransfer ALT/SGPT 618 U/L (13-56); Albumin, Serum 3.3 g/dL (3.2-5.0); Alkaline Phosphatase 562 U/L (45-117); Anion Gap 7 (5-15); BUN 10 mg/dL (7-18); BUN/Creat Ratio 14.7 RATIO (10-20); Calcium,Total 9.5 mg/dL (8.5-10.1); Chloride 104 mmol/L (98-107); Creatinine, Serum 0.68 mg/dL (0.55-1.02); EST Glomerular Filtration Rate 90 mL/min (>60); Est Glom Filt Rate - Afr Amer 109 mL/min (>60); Estimated Creatinine Clearance 57.13 ml/min; Globulin 3.7 g/dL (2.2-4.2); Glucose 113 mg/dL (74-106); Lipase 21 U/L (13-75); Potassium 3.5 mmol/L (3.5-5.1); Sodium Level 137 mmol/L (136-145)
[2024-04-15 16:57] VITALS: BP 112/100; PULSE 78; O2SAT 96
[2024-04-15 18:00] VITALS: BP 127/52; PULSE 74
--- NOTE | 2024-04-15 18:51 | US_ITS ---
STUDY: ABDOMINAL ULTRASOUND - RIGHT UPPER QUADRANT REASON FOR VISIT: Female, 73 years old. ABDOMEN PAIN pain, nausea and vomiting TECHNIQUE: Ultrasound evaluation of the right upper quadrant was performed with real-time and static paez-scale imaging. TECHNICAL QUALITY: Adequate. COMPARISON: None FINDINGS: Liver: There is normal echogenicity of the liver. The bile ducts are within normal limits. There is hepatic color flow. The direction of portal flow is hepatopetal. There is no demonstrated mass lesion. Gallbladder: Normal distended gallbladder. The gallbladder wall measures 3 mm. There is a negative sonographic Redding''s sign. There is no pericholecystic fluid. There are multiple echogenic structures within the gallbladder, consistent with multiple gallstones. These measure 16 x 11 mm and 10 x 9 mm. Common Bile Duct (C.B.D.): The common bile duct measures ( in mm): 7 Pancreas: Normal size of the head, body of the pancreas. There is normal echogenicity of the pancreas. There is no demonstrated pancreatic mass or cyst. Right Kidney: Normal size of the right kidney. The right kidney measures 10.7 cm. . Normal renal cortex. There is no demonstrated renal mass or cyst. There is no right hydronephrosis. Aorta: It is not visualized. There is too much overlying bowel gas. . US/Gallbladder IMPRESSION: GALLSTONES Note: Renal size measurements and size measurements of other organs etc may vary depending on modality and pattern data operator dependent variations in measurements. (i.e. Measuring a kidney on an US does not correlate with an exact same measurement on a CT.) Electronically Signed: David Hackett MD at 21:25 EDT ,
--- NOTE | 2024-04-15 19:35 | PCM.HP.STD ---
[facility] - General General Date of Admission: 04/15/24 Date of Service: 04/15/24 Chief Complaint: Abdominal Pain, Nausea and Vomiting HPI Narrative CHELSEY TOLLIVER, is a 73 F with a past medical history of essential hypertension, hyperlipidemia, hypothyroidism, obesity; with a BMI of 32.8 this admission, CAD; s/p STEMI with subsequent stents x 2 (2017), history of atrial fibrillation, history of frequent PVCs, history of MGUS, history of asthma, history of temporal arteritis; s/p negative temporal artery biopsy (2018), history of tonsillectomy, history of delivery, history of breast biopsy, history of D&C, history of M?ni?re's disease, history of retinal tear of the Left eye, history of COVID-19 (2021), history of vitamin D deficiency with osteopenia, listed allergies to penicillin, Biaxin and Bactrim, IBS, GERD, and OA; primarily of the Left shoulder who presents to [facility] ER complaining of abdominal pain, nausea and vomiting. Ms. Tolliver reports her symptoms began approximately 3 days prior to admission after eating black pepper chicken when she suddenly began to have abdominal pain that was periumbilical. Then the next day she developed nausea and vomiting with bilious emesis followed by dry heaving. She states she tried to eat light over the past 2 days but was unable to do so due to pain and GI upset so she decided to come in for further evaluation and treatment. Nothing seems to make the pain better or worse. She denies a history of abdominal surgeries. She denies associated diarrhea, constipation or dysuria but she thinks her urine is darker in color than usual. In the ER she was noted to have a CT scan of the abdomen pelvis that revealed a contracted gallbladder with an elevated total bilirubin of 3 mg/dL along with an elevated AST of 423 units/L, ALT of 618 units/L and alkaline phosphatase of 562 units/L with suspected acute cholecystitis and possible common bile duct stone with general surgeon on-call recommending patient be admitted to the hospitalist service with GI to consult in addition to her desiring to consult in the a.m. which was done. She was then admitted to the general medical floor for ongoing care for stay that is expected to extend beyond 2 midnights. [facility] Medical History COVID-19 (~06/2021) History of [place] (myocardial infarction) History of coronary artery disease Essential hypertension Monoclonal gammopathy of unknown significance (MGUS) Monoclonal gammopathy Temporal arteritis Osteoarthritis of left shoulder Asthma HLD (hyperlipidemia) HTN (hypertension) Atherosclerotic heart disease of [place] coronary artery without angina pectoris Acute ST elevation myocardial infarction GERD (gastroesophageal reflux disease) Hypothyroidism M?ni?re's disease Retinal tear of left eye Ulnar neuropathy Polyclonal gammopathy GERD (gastroesophageal reflux disease) IBS (irritable bowel syndrome) Vitamin D deficiency Osteopenia Incontinence Knee pain PVC's (premature ventricular contractions) SOB (shortness of breath) Arthritis Home Medications ?Medication ?Instructions ?Recorded ?Last Taken ?Type levothyroxine 50 mcg tablet 50 mcg PO DAILY Thyroid 12/31/16 04/15/24 History metronidazole 0.75 % topical cream 1 applicatio topical DAILY rosacea 07/03/18 04/15/24 History 68 days #135 grams acetaminophen 500 mg tablet 500 - 1,000 mg PO DAILY PRN PRN 08/06/20 08/01/20 History Pain 1-10 Or Fever potassium chloride 20 mEq 20 meq PO DAILY supplement 09/22/20 08/08/21 History tablet,extended release(part/cryst) omeprazole 40 mg capsule,delayed 40 mg PO DAILY gerd 08/05/21 04/15/24 History release atorvastatin 80 mg tablet 80 mg PO QHS cholesterol 08/08/21 04/14/24 History hydrochlorothiazide 25 mg tablet 25 mg PO DAILY diuretic 08/28/21 04/15/24 History cholecalciferol (vitamin D3) 50 2,000 unit PO DAILY SUPPLEMENT 04/05/22 04/13/24 History mcg (2,000 unit) capsule losartan 25 mg tablet 25 mg PO DAILY blood pressure #90 07/06/23 04/15/24 Rx tabs metoprolol tartrate 50 mg tablet 50 mg PO BID this is a dose 09/28/23 04/14/24 Rx increase #180 tabs mecobalamin (vitamin B12) 1,000 1,000 mcg sublingual DAILY 10/26/23 04/13/24 History mcg disintegrating supplement tablet,sublingual aspirin 81 mg chewable tablet 81 mg PO DAILY #30 tabs 12/21/23 04/13/24 Rx Allergy/AdvReac Type Severity Reaction Status Date / Time clarithromycin (From Biaxin) Allergy Rash Verified 04/15/24 15:00 sulfamethoxazole (From Allergy Rash Verified 04/15/24 15:00 Bactrim) trimethoprim (From Bactrim) Allergy Rash Verified 04/15/24 15:00 carvedilol (From Coreg) AdvReac Intermediate Nausea, Verified 04/15/24 15:00 Lightheaded codeine AdvReac Upset Verified 04/15/24 15:00 Stomach lisinopril AdvReac cough Verified 04/15/24 15:00 Penicillins AdvReac Other Verified 04/15/24 15:00 Family History Mother Cancer skin Anemia Father Cancer Heart disease Surgical History History of temporal artery biopsy (~12/2018) History of delivery Stented coronary artery (06/20/18) History of dilatation and curettage Hx of breast biopsy Hx of tonsillectomy Social History Smoking Status: Never smoker alcohol intake: never substance use type: does not use caffeine: No ROS ROS Narrative Review of systems: Constitutional: Patient denies fever or chills. Eyes: Patient denies changes in vision or discharge from eyes. ENT: Patient denies runny nose, sore throat or ear pain. Resp: Patient denies shortness of breath or cough. CV: Patient denies chest pain, palpitations or heart racing. GI: Patient admits to periumbilical abdominal pain, nausea and vomiting. She denies diarrhea or constipation. : Patient denies dysuria or hematuria. MSK: Patient denies myalgias or arthralgias. Skin: Patient denies abscess, rash or jaundice. Psych: Patient denies symptoms of uncontrolled depression or anxiety. Neuro: Patient denies headache, paresthesias or focal neurologic deficits. Allergy: Patient denies lip swelling, tongue swelling or urticaria. Hematology: Patient denies easy bleeding or easy bruisability. Endocrinology: Patient denies polyuria, polydipsia or polyphagia. 14 point review of systems otherwise negative except for positives noted above in HPI. Vital Signs Vital Signs Vital Signs: 04/15/24 14:58 04/15/24 16:57 04/15/24 18:00 Temperature 96.8 F L Temperature Source Temporal Pulse Rate 83 78 74 Respiratory Rate 19 H Blood Pressure 132/62 H 112/100 H 127/52 H Blood Pressure Mean 85 104 77 Pulse Ox 97 96 Oxygen Delivery Method Room Air Room Air Weight Weight: 168 lb Body Mass Index (BMI) 32.8 Physical Exam Const alert and oriented x3 Constitutional Narrative: Obese and in mild distress. General Appearance: cooperative HEENT normocephalic, head/scalp atraumatic and hearing grossly normal bilaterally HEENT Narrative: Mucous membranes dry. Eyes PERRL and EOMs intact bilaterally Neck no lymphadenopathy and supple Resp normal respiratory effort, no retractions, no use of accessory muscles and clear to auscultation bilaterally Cardio regular rate and regular rhythm GI normal to inspection, nondistended, normoactive bowel sounds, soft to palpation and non-distended GI Narrative: Generalized tenderness to palpation noted. Extremity normal to inspection, full ROM and no clubbing, cyanosis or edema Skin Skin Narrative: Patient has no evidence of rash, wounds or jaundice. Neuro oriented x3, CN's II-XII intact bilaterally, moves all extremities and no focal motor deficits Sensorium / Orientation: awake, alert, oriented to person, oriented to place and oriented to time Speech: speech normal Psych affect normal Results Medical Records Data Attestation: I reviewed the patient's medical records Lab / Micro Data Attestation: I reviewed the patient's lab results. 04/15/24 16:28 04/15/24 16:28 Labs: Laboratory Results - last 24 hr 04/15/24 16:28: WBC 7.7, RBC 4.14 L, Hgb 11.0 L, Hct 34.2 L, MCV 82.6, MCH 26.6 L, MCHC 32.2, RDW Std Deviation 44.6 H, RDW Coeff of Agnieszka 14.8 H, Plt Count 163, MPV 12.6 H, Immature Gran % (Auto) 0.300, Neut % (Auto) 75.2 H, Lymph % (Auto) 10.9 L, [place] % (Auto) 12.5 H, Eos % (Auto) 0.8, Baso % (Auto) 0.3, Absolute Neuts (auto) 5.8, Absolute Lymphs (auto) 0.84, Nucleated RBC % 0, Sodium 137, Potassium 3.5, Chloride 104, Carbon Dioxide 26.0, Anion Gap 7, BUN 10, Creatinine 0.68, Estim Creat Clear Calc 57.13, Est GFR (MDRD) Af Amer 109, Est GFR (MDRD) Non-Af 90, BUN/Creatinine Ratio 14.7, Glucose 113 H, Calcium 9.5, Total Bilirubin 3.00 H, AST 423 H, ALT 618 H, Alkaline Phosphatase 562 H, Total Protein 7.0, Albumin 3.3, Globulin 3.7, Albumin/Globulin Ratio 0.9, Lipase 21, Urine Color Yellow, Urine Clarity Clear, Urine pH 8.0, Ur Specific [place] 1.015, Urine Protein Negative, Urine Glucose (UA) Normal, Urine Ketones Negative, Urine Occult Blood Negative, Urine Nitrite Negative, Urine Bilirubin Negative, Urine Urobilinogen 1 H, Ur Leukocyte Esterase Negative, Urine RBC 0 SEEN, Urine WBC 0 SEEN, Ur Squamous Epith Cells 0-5 SEEN, Amorphous Sediment RARE, Urine Bacteria 1+, Urine Mucus 0 SEEN Imaging Radiology Impression Abdomen/Pelvis CT 04/15/24 16:25 IMPRESSION: (NOT LISTED IN ORDER OF SIGNIFICANCE) Contracted gallbladder with gallbladder wall enhancement may suggest an inflammatory process. Other findings as above. Electronically Signed: David Hackett MD at 18:08 EDT Reading Location ID and State: [address] [place] [address] , Service support , Assessment & Plan Assessment/Plan (1) Gallbladder contraction: (2) Elevated liver enzymes: (3) Nausea and vomiting: QUALIFIERS: Vomiting type: unspecified Qualified Code(s): R11.2 - Nausea with vomiting, unspecified PLAN: Plan 1. CT scan of the abdomen pelvis that revealed a contracted gallbladder with an elevated total bilirubin of 3 mg/dL along with an elevated AST of 423 units/L, ALT of 618 units/L and alkaline phosphatase of 562 units/L with suspected acute cholecystitis and possible common bile duct stone in the setting of listed allergies to penicillin, Biaxin and Bactrim - Admit to general medical floor. Check gallbladder ultrasound in a.m. as recommended by general surgeon on-call. Check hepatitis profile. We will also consult gastroenterology to see this patient on rounds in the a.m. for further recommendations. Finally, we will start empiric IV Levaquin and IV Flagyl in light of her allergy profile. 2. Intractable nausea and vomiting with abdominal pain attributable to #1 - Give Zofran IV as needed to control nausea vomiting. Give Phenergan IM for breakthrough nausea and vomiting. Give Toradol IV as needed for [id number] (level 1-5/10) pain or fever. Give morphine IV as needed for severe (level 6-10/10) pain. 3. Essential hypertension - Give hydralazine IV as needed for systolic blood pressure greater than 160 mmHg. 4. Hyperlipidemia - Resume statin when patient is able to tolerate oral intake. 5. Hypothyroidism - Give Synthroid IV at 50% of normal oral dose. Check TSH. 6. Obesity; with a BMI of 32.8 this admission - Weight loss will be recommended. 7. CAD; s/p STEMI with subsequent stents x 2 (2017) - Restart aspirin daily once patient is able to tolerate oral intake. 8. History of atrial fibrillation - Noted patient currently in normal sinus rhythm. 9. History of frequent PVCs - Noted. 10. History of MGUS - Noted. 11. History of asthma - Stable with no evidence of acute flare. Continue as needed nebulizers. 12. History of temporal arteritis; s/p negative temporal artery biopsy (2018) - Noted. 13. History of tonsillectomy - Noted. 14. History of delivery - Noted for the sake of completeness. 15. History of breast biopsy - Noted. 16. History of D&C - Noted. 17. History of M?ni?re's disease - Noted. 18. History of retinal tear of the Left eye - Noted. 19. History of COVID-19 (2021) - Noted. 20. History of vitamin D deficiency with osteopenia - Noted. listed allergies 21. IBS - Noted. 22. GERD - Patient started on IV Protonix for #1. 23. OA; primarily of the Left shoulder - Stable. 24. DVT prophylaxis - SCD's only with possible impending cholecystectomy. Total time: Approximately 55 minutes. Charges/Coding Visit Charges Inpatient E&M: 77621 Init Hosp L2
[2024-04-15 19:39] VITALS: BP 127/52; PULSE 74; RESP 18; TEMP 36.4; O2SAT 98
[2024-04-15 20:00] VITALS: BP 130/85
--- NOTE | 2024-04-15 21:34 | CON.PCM.GI_ITS ---
HPI Consult Data Date of Consult: 04/15/24 HPI Narrative Reason for Consultation: Cholestatic hepatitis and jaundice HPI Narrative: CHELSEY TOLLIVER, is a 73 yo woman presented to [facility] ER complaining of abdominal pain, nausea and vomiting. Ms. Tolliver reports her symptoms began approximately 3 days prior to admission after eating black pepper chicken when she suddenly began to have abdominal pain that was periumbilical. She has a past medical history of essential hypertension, hyperlipidemia, hypothyroidism, obesity; with a BMI of 32.8 this admission, CAD; s/p STEMI with subsequent stents x 2 (2017), history of atrial fibrillation, history of frequent PVCs, history of MGUS, history of asthma, history of temporal arteritis; s/p negative temporal artery biopsy (2018), history of tonsillectomy, history of delivery, history of breast biopsy, history of D&C, history of M?ni?re's disease, history of retinal tear of the Left eye, history of COVID- 19 (2021), history of vitamin D deficiency with osteopenia, listed allergies to penicillin, Biaxin and Bactrim, IBS, GERD, and OA; primarily of the Left shoulder who She also developed nausea and vomiting with bilious emesis followed by dry heaving. She states she tried to eat light over the past 2 days but was unable to do so due to pain and GI upset so she decided to come in for further evaluation and treatment. Nothing seems to make the pain better or worse. She denies a history of abdominal surgeries. She denies associated diarrhea, constipation or dysuria but she thinks her urine is darker in color than usual. In the ER she was noted to have a CT scan of the abdomen pelvis that revealed a contracted gallbladder with an elevated total bilirubin of 3 mg/dL along with an elevated AST of 423 units/L, ALT of 618 units/L and alkaline phosphatase of 562 units/L with suspected acute cholecystitis and possible common bile duct stone [facility] Medical History COVID-19 (~06/2021) History of [place] (myocardial infarction) History of coronary artery disease Essential hypertension Monoclonal gammopathy of unknown significance (MGUS) Monoclonal gammopathy Temporal arteritis Osteoarthritis of left shoulder Asthma HLD (hyperlipidemia) HTN (hypertension) Atherosclerotic heart disease of [place] coronary artery without angina pectoris Acute ST elevation myocardial infarction GERD (gastroesophageal reflux disease) Hypothyroidism M?ni?re's disease Retinal tear of left eye Ulnar neuropathy Polyclonal gammopathy GERD (gastroesophageal reflux disease) IBS (irritable bowel syndrome) Vitamin D deficiency Osteopenia Incontinence Knee pain PVC's (premature ventricular contractions) SOB (shortness of breath) Arthritis Home Medications ?Medication ?Instructions ?Recorded ?Last Taken ?Type levothyroxine 50 mcg tablet 50 mcg PO DAILY Thyroid 12/31/16 04/15/24 History metronidazole 0.75 % topical cream 1 applicatio topical DAILY rosacea 07/03/18 04/15/24 History 68 days #135 grams acetaminophen 500 mg tablet 500 - 1,000 mg PO DAILY PRN PRN 08/06/20 08/01/20 History Pain 1-10 Or Fever potassium chloride 20 mEq 20 meq PO DAILY supplement 09/22/20 08/08/21 History tablet,extended release(part/cryst) omeprazole 40 mg capsule,delayed 40 mg PO DAILY gerd 08/05/21 04/15/24 History release atorvastatin 80 mg tablet 80 mg PO QHS cholesterol 08/08/21 04/14/24 History hydrochlorothiazide 25 mg tablet 25 mg PO DAILY diuretic 08/28/21 04/15/24 History cholecalciferol (vitamin D3) 50 2,000 unit PO DAILY SUPPLEMENT 04/05/22 04/13/24 History mcg (2,000 unit) capsule losartan 25 mg tablet 25 mg PO DAILY blood pressure #90 07/06/23 04/15/24 Rx tabs metoprolol tartrate 50 mg tablet 50 mg PO BID this is a dose 09/28/23 04/14/24 Rx increase #180 tabs mecobalamin (vitamin B12) 1,000 1,000 mcg sublingual DAILY 10/26/23 04/13/24 History mcg disintegrating supplement tablet,sublingual aspirin 81 mg chewable tablet 81 mg PO DAILY #30 tabs 12/21/23 04/13/24 Rx Allergy/AdvReac Type Severity Reaction Status Date / Time clarithromycin (From Biaxin) Allergy Rash Verified 04/15/24 15:00 sulfamethoxazole (From Allergy Rash Verified 04/15/24 15:00 Bactrim) trimethoprim (From Bactrim) Allergy Rash Verified 04/15/24 15:00 carvedilol (From Coreg) AdvReac Intermediate Nausea, Verified 04/15/24 15:00 Lightheaded codeine AdvReac Upset Verified 04/15/24 15:00 Stomach lisinopril AdvReac cough Verified 04/15/24 15:00 Penicillins AdvReac Other Verified 04/15/24 15:00 Family History Mother Cancer skin Anemia Father Cancer Heart disease Surgical History History of temporal artery biopsy (~12/2018) History of delivery Stented coronary artery (06/20/18) History of dilatation and curettage Hx of breast biopsy Hx of tonsillectomy Social History Smoking Status: Never smoker alcohol intake: never substance use type: does not use caffeine: No ROS ROS Narrative Review of systems: Constitutional: Patient denies fever or chills. Eyes: Patient denies changes in vision or discharge from eyes. ENT: Patient denies runny nose, sore throat or ear pain. Resp: Patient denies shortness of breath or cough. CV: Patient denies chest pain, palpitations or heart racing. GI: Patient admits to periumbilical abdominal pain, nausea and vomiting. She denies diarrhea or constipation. : Patient denies dysuria or hematuria. MSK: Patient denies myalgias or arthralgias. Skin: Patient denies abscess, rash or jaundice. Psych: Patient denies symptoms of uncontrolled depression or anxiety. Neuro: Patient denies headache, paresthesias or focal neurologic deficits. Allergy: Patient denies lip swelling, tongue swelling or urticaria. Hematology: Patient denies easy bleeding or easy bruisability. Endocrinology: Patient denies polyuria, polydipsia or polyphagia. 14 point review of systems otherwise negative except for positives noted above in HPI. Physical Exam Narrative General: Alert, Oriented x3, Cooperative, No apparent distress HEENT: Atraumatic, PERRLA, EOMI, Normocephalic Oral: Moist Mucosa Neck: Supple, No JVD Lungs: Clear to auscultation, Normal air movement, No rhonchi, No wheeze, No rales Cardiovascular: Regular rate, Regular Rhythm, Normal S1, Normal S2, No murmurs Abdomen: Soft, Non Tender, Non-Distended, No Hepato-splenomegaly Extremities: No edema, Capillary Refill Less than 3 Seconds Skin: No rashes, No breakdown Musculoskeletal: No Tenderness to Palpation of Joints or Extremities Neurological: No focal neurological deficits, Motor Exam 5/5 strength throughout, Sensory exam intact to light touch and pain Psych/Mental Status: Normal Affect, Appropriate Lab / Micro Data 04/16/24 06:04 04/16/24 06:04 Labs: Laboratory Results - last 24 hr 04/15/24 16:28: WBC 7.7, RBC 4.14 L, Hgb 11.0 L, Hct 34.2 L, MCV 82.6, MCH 26.6 L, MCHC 32.2, RDW Std Deviation 44.6 H, RDW Coeff of Agnieszka 14.8 H, Plt Count 163, MPV 12.6 H, Immature Gran % (Auto) 0.300, Neut % (Auto) 75.2 H, Lymph % (Auto) 10.9 L, [place] % (Auto) 12.5 H, Eos % (Auto) 0.8, Baso % (Auto) 0.3, Absolute Neuts (auto) 5.8, Absolute Lymphs (auto) 0.84, Nucleated RBC % 0, Sodium 137, Potassium 3.5, Chloride 104, Carbon Dioxide 26.0, Anion Gap 7, BUN 10, Creatinine 0.68, Estim Creat Clear Calc 57.13, Est GFR (MDRD) Af Amer 109, Est GFR (MDRD) Non-Af 90, BUN/Creatinine Ratio 14.7, Glucose 113 H, Calcium 9.5, T otal Bilirubin 3.00 H, AST 423 H, ALT 618 H, Alkaline Phosphatase 562 H, Total Protein 7.0, Albumin 3.3, Globulin 3.7, Albumin/Globulin Ratio 0.9, Lipase 21, Urine Color Yellow, Urine Clarity Clear, Urine pH 8.0, Ur Specific [place] 1.015, Urine Protein Negative, Urine Glucose (UA) Normal, Urine Ketones Negative, Urine Occult Blood Negative, Urine Nitrite Negative, Urine Bilirubin Negative, Urine Urobilinogen 1 H, Ur Leukocyte Esterase Negative, Urine RBC 0 SEEN, Urine WBC 0 SEEN, Ur Squamous Epith Cells 0-5 SEEN, Amorphous Sediment RARE, Urine Bacteria 1+, Urine Mucus 0 SEEN 04/16/24 06:04: WBC 5.4, RBC 3.99 L, Hgb 10.4 L, Hct 33.5 L, MCV 84.0, MCH 26.1 L, MCHC 31.0 L, RDW Std Deviation 45.1 H, RDW Coeff of Agnieszka 14.8 H, Plt Count 176, MPV 11.1, Immature Gran % (Auto) 0.200, Neut % (Auto) 67.1, Lymph % (Auto) 19.1, [place] % (Auto) 12.1 H, Eos % (Auto) 1.1, Baso % (Auto) 0.4, Absolute Neuts (auto) 3.6, Absolute Lymphs (auto) 1.02, Nucleated RBC % 0, PT 13.9, INR 1.1, APTT 30.0, Sodium 141, Potassium 3.3 L, Chloride 105, Carbon Dioxide 24.0, Anion Gap 11, BUN 9, Creatinine 0.65, Estim Creat Clear Calc 57.54, Est GFR (MDRD) Af Amer 115, Est GFR (MDRD) Non-Af 95, BUN/Creatinine Ratio 13.8, Glucose 87, Calcium 8.9, Phosphorus 3.6, Magnesium 1.9, Total Bilirubin 3.00 H, AST 371 H, A LT 549 H, Alkaline Phosphatase 561 H, Total Protein 6.6, Albumin 2.9 L, Globulin 3.7, Albumin/Globulin Ratio 0.8 L, TSH 1.060 Imaging Radiology Impression Abdomen/Pelvis CT 04/15/24 16:25 IMPRESSION: (NOT LISTED IN ORDER OF SIGNIFICANCE) Contracted gallbladder with gallbladder wall enhancement may suggest an inflammatory process. Other findings as above. Electronically Signed: David Hackett MD at 18:08 EDT , Gallbladder Ultrasound 04/15/24 18:51 IMPRESSION: GALLSTONES Note: Renal size measurements and size measurements of other organs etc may vary depending on modality and wash rack operator dependent variations in measurements. (i.e. Measuring a kidney on an US does not correlate with an exact same measurement on a CT.) Electronically Signed: David Hackett MD at 21:25 EDT Reading Location ID and State: [facility] / [place] , Service support , Assessment & Plan Assessment/Plan (1) Gallbladder contraction: (2) Elevated liver enzymes: (3) Nausea and vomiting: QUALIFIERS: Vomiting type: unspecified Qualified Code(s): R11.2 - Nausea with vomiting, unspecified PLAN: Plan 73-year-old presents with abdominal pain is found to have cholestatic hepatitis with jaundice along with multiple gallstones seen on imaging and upper limit of normal common bile duct. CT scan of the abdomen pelvis that revealed a contracted gallbladder with an elevated total bilirubin of 3 mg/dL along with an elevated AST of 423 units/L, ALT of 618 units/L and alkaline phosphatase of 562 units/L with suspected acute cholecystitis and possible common bile duct stone . She has a high pretest probability for choledocholithiasis. Recommend ERCP with this stone removal and possible stent placement. She was explained alternatives, risk, benefits including understanding bleeding, infection, sepsis, perforation, need for emergent urgent . She well have an ASA of 3. . Charges/Coding Visit Charges Inpatient E&M: 65106 Init Hosp L3
[2024-04-15 22:01] VITALS: BMI 30.5
[2024-04-15 22:07] VITALS: BP 130/58; PULSE 80; RESP 16; TEMP 36.7; O2SAT 100
[2024-04-15] MEDS: 0.9% Normal Saline (1000mL) 1,000 ML 100 ML IV (22:54)
[2024-04-15] MEDS: Pantoprazole Sodium 40 MG in 0.9% Normal Saline (100mL MB+) 100 ML 330 MG IV (22:54)
[2024-04-15] MEDS: levoFLOXacin IV 750 MG/150 ML BAG 100 MG IV (23:17)
[2024-04-16] VITALS (16 sets, daily range): BP systolic 84–138; BP diastolic 42–82; PULSE 78–117; RESP 15–18; TEMP 36.1–36.8; O2SAT 92–99; BMI 30.7
[2024-04-16] MEDS: metroNIDAZOLE 500 MG/100 ML BAG 100 MG IV ×4 (00:50→21:14)
[2024-04-16 06:27] LABS: Absolute Lymphocyte Count 1.02 X10^3/uL (0.83-4.51); Absolute Neutrophil Count 3.6 X10^3/uL (2.0-7.7); Basophil# 0.02 X10^3/uL; Basophil% 0.4 % (0-1); Eosinophil# 0.06 X10^3/uL; Eosinophils% 1.1 % (0-5); Hematocrit 33.5 % (37-47); Hemoglobin 10.4 g/dL (12.0-15.0); Lymphocyte # 1.02 X10^3/ul (0.83-4.51); Lymphocyte % 19.1 % (19-41); Mean Corpuscular Hgb 26.1 pg (27.0-32.0); Mean Platelet Vol. 11.1 fl (6.2-12.0); Monocyte# 0.65 X10^3/uL; Monocyte% 12.1 % (0-10); NRBC Flagged by Analyzer 0 % (0-5); Neutrophil # 3.59 X10^3/uL (2.7-7.7); Neutrophil % 67.1 % (47-70); Platelet Count 176 K/mm3 (150-450); RBC Distribution Width CV 14.8 % (11.6-14.6); RBC Distribution Width SD 45.1 fl (35.1-43.9); Red Blood Count 3.99 M/mm3 (4.2-5.4); White Blood Count 5.4 K/mm3 (4.4-11.0)
[2024-04-16 06:35] LABS: International Normalized Ratio 1.1; Prothrombin Time (Protime)PT. 13.9 SECONDS (11.7-14.9)
[2024-04-16 07:10] LABS: ALB/GLOB Ratio 0.8 RATIO (0.9-2.4); AST(SGOT) 371 U/L (15-37); Alanine Aminotransfer ALT/SGPT 549 U/L (13-56); Albumin, Serum 2.9 g/dL (3.2-5.0); Alkaline Phosphatase 561 U/L (45-117); Anion Gap 11 (5-15); BUN 9 mg/dL (7-18); BUN/Creat Ratio 13.8 RATIO (10-20); Calcium,Total 8.9 mg/dL (8.5-10.1); Chloride 105 mmol/L (98-107); Creatinine, Serum 0.65 mg/dL (0.55-1.02); EST Glomerular Filtration Rate 95 mL/min (>60); Est Glom Filt Rate - Afr Amer 115 mL/min (>60); Estimated Creatinine Clearance 57.54 ml/min; Globulin 3.7 g/dL (2.2-4.2); Glucose 87 mg/dL (74-106); Magnesium 1.9 mg/dL (1.6-2.6); Phosphorus 3.6 mg/dL (2.5-4.9); Potassium 3.3 mmol/L (3.5-5.1); Protein, Total 6.6 g/dL (6.4-8.2); Sodium Level 141 mmol/L (136-145)
[2024-04-16] MEDS: Pantoprazole Sodium 40 MG in 0.9% Normal Saline (100mL MB+) 100 ML 330 MG IV (09:28)
[2024-04-16] MEDS: FLU VACCINE **HIGH DOSE** TV 24-25 180 MCG/0.5 ML SYRINGE IM (09:56)
--- NOTE | 2024-04-16 10:22 | PN.HOSP_ITS ---
Subjective Subjective Doing well, no issues overnight Objective Data Objective Data Vital Signs: Vital Signs Temp Pulse Resp BP Pulse Ox O2 Del Method 98.1 F 102 H 18 120/53 L 95 Room Air 04/16/24 10:00 04/16/24 10:00 04/16/24 10:00 04/16/24 10:00 04/16/24 10:00 04/16/24 10:00 Oxygen Delivery Method Room Air Weight: 162 lb 11.218 oz Body Mass Index (BMI) 30.7 Intake & Output: Intake and Output for Last 24 Hours 04/15/24 04/16/24 04/17/24 03:59 03:59 03:59 Intake Total 360 / 360 1210 / 1210 Balance 360 / 360 1210 / 1210 Lab / Micro Data 04/16/24 06:04 04/16/24 06:04 Labs: Laboratory Results - last 24 hr 04/15/24 16:28: WBC 7.7, RBC 4.14 L, Hgb 11.0 L, Hct 34.2 L, MCV 82.6, MCH 26.6 L, MCHC 32.2, RDW Std Deviation 44.6 H, RDW Coeff of Agnieszka 14.8 H, Plt Count 163, MPV 12.6 H, Immature Gran % (Auto) 0.300, Neut % (Auto) 75.2 H, Lymph % (Auto) 10.9 L, [place] % (Auto) 12.5 H, Eos % (Auto) 0.8, Baso % (Auto) 0.3, Absolute Neuts (auto) 5.8, Absolute Lymphs (auto) 0.84, Nucleated RBC % 0, Sodium 137, Potassium 3.5, Chloride 104, Carbon Dioxide 26.0, Anion Gap 7, BUN 10, Creatinine 0.68, Estim Creat Clear Calc 57.13, Est GFR (MDRD) Af Amer 109, Est GFR (MDRD) Non-Af 90, BUN/Creatinine Ratio 14.7, Glucose 113 H, Calcium 9.5, T otal Bilirubin 3.00 H, AST 423 H, ALT 618 H, Alkaline Phosphatase 562 H, Total Protein 7.0, Albumin 3.3, Globulin 3.7, Albumin/Globulin Ratio 0.9, Lipase 21, Urine Color Yellow, Urine Clarity Clear, Urine pH 8.0, Ur Specific [place] 1.015, Urine Protein Negative, Urine Glucose (UA) Normal, Urine Ketones Negative, Urine Occult Blood Negative, Urine Nitrite Negative, Urine Bilirubin Negative, Urine Urobilinogen 1 H, Ur Leukocyte Esterase Negative, Urine RBC 0 SEEN, Urine WBC 0 SEEN, Ur Squamous Epith Cells 0-5 SEEN, Amorphous Sediment RARE, Urine Bacteria 1+, Urine Mucus 0 SEEN 04/16/24 06:04: WBC 5.4, RBC 3.99 L, Hgb 10.4 L, Hct 33.5 L, MCV 84.0, MCH 26.1 L, MCHC 31.0 L, RDW Std Deviation 45.1 H, RDW Coeff of Agnieszka 14.8 H, Plt Count 176, MPV 11.1, Immature Gran % (Auto) 0.200, Neut % (Auto) 67.1, Lymph % (Auto) 19.1, [place] % (Auto) 12.1 H, Eos % (Auto) 1.1, Baso % (Auto) 0.4, Absolute Neuts (auto) 3.6, Absolute Lymphs (auto) 1.02, Nucleated RBC % 0, PT 13.9, INR 1.1, APTT 30.0, Sodium 141, Potassium 3.3 L, Chloride 105, Carbon Dioxide 24.0, Anion Gap 11, BUN 9, Creatinine 0.65, Estim Creat Clear Calc 57.54, Est GFR (MDRD) Af Amer 115, Est GFR (MDRD) Non-Af 95, BUN/Creatinine Ratio 13.8, Glucose 87, Calcium 8.9, Phosphorus 3.6, Magnesium 1.9, Total Bilirubin 3.00 H, AST 371 H, A LT 549 H, Alkaline Phosphatase 561 H, Total Protein 6.6, Albumin 2.9 L, Globulin 3.7, Albumin/Globulin Ratio 0.8 L, TSH 1.060 Radiography Diagnostic Testing: Radiology Impression Abdomen/Pelvis CT 04/15/24 16:25 IMPRESSION: (NOT LISTED IN ORDER OF SIGNIFICANCE) Contracted gallbladder with gallbladder wall enhancement may suggest an inflammatory process. Other findings as above. Electronically Signed: David Hackett MD at 18:08 EDT , Gallbladder Ultrasound 04/15/24 18:51 IMPRESSION: GALLSTONES Note: Renal size measurements and size measurements of other organs etc may vary depending on modality and profiling machine operator dependent variations in measurements. (i.e. Measuring a kidney on an US does not correlate with an exact same measurement on a CT.) Electronically Signed: David Hackett MD at 21:25 EDT Reading Location ID and State: [facility] / [place] , Service support , Physical Exam Narrative General: Alert, Oriented x3, Cooperative, No apparent distress HEENT: Atraumatic, PERRLA, EOMI, Normocephalic Oral: Moist Mucosa Neck: Supple, No JVD Lungs: Clear to auscultation, Normal air movement, No rhonchi, No wheeze, No rales Cardiovascular: Regular rate, Regular Rhythm, Normal S1, Normal S2, No murmurs Abdomen: Soft, Non Tender, Non-Distended, No Hepato-splenomegaly Extremities: No edema, Capillary Refill Less than 3 Seconds Skin: No rashes, No breakdown Musculoskeletal: No Tenderness to Palpation of Joints or Extremities Neurological: No focal neurological deficits, Motor Exam 5/5 strength throughout, Sensory exam intact to light touch and pain Psych/Mental Status: Normal Affect, Appropriate Assessment & Plan Assessment/Plan (1) Gallbladder contraction: (2) Elevated liver enzymes: (3) Nausea and vomiting: QUALIFIERS: Vomiting type: unspecified Qualified Code(s): R11.2 - Nausea with vomiting, unspecified PLAN: Plan 1. Right upper quadrant abdominal pain with nausea and vomiting/GERD ?Plan for ERCP today, continue with being n.p.o. ? She is on IV Levaquin and Flagyl because of her allergies ? Continue with antinausea medications and pain meds as needed ? Continue PPI 2. Essential HTN/HLD/paroxysmal A-fib ? Blood pressure stable ? Can continue with her home medications when she takes p.o. ? Can resume her home statin when she can take p.o. ? Will monitor and make adjustments as necessary ? Not on any anticoagulation and currently normal sinus 3. Hypothyroidism ? Stable ? Can resume her Synthroid when taking p.o. DVT: SCDs Charges/Coding Visit Charges Inpatient E&M: 74703 Subs Hosp L2
--- NOTE | 2024-04-16 11:27 | CASEMGMT ---
RYAN METZGER Assessment Face to Face with patient for initial transition planning/care coordination assessment. RYAN METZGER introduced self and role at [facility], pt voices understanding. Pt is A&Ox4 and is resting comfortably in bed and is calm. Care providers, pharmacy, and demographics verified. Admitting dx: Suspected Acute Cholecystitis LACE Strata: 2 PCP: Mikael Ramires Specialists: [facility], Ankit (Control Valve Mechanic), Lalita([facility]) Preferred Pharmacy: [facility] Insurance: [facility] Prescription Benefit: Yes LNOK: Gabino Beltran (Son) Living Arrangements: Pt lives alone in a single story home with 3 steps to enter ADLs/IADLs: Ind Transportation: Pt does not drive. Pt states that her friends and neighbors drive her. Pt also uses taxis and [facility] transportation van. DME: Nebulizer. Cane. FWW. Rollator. W/C. Walk in shower/tub with grab bars and shower chair. Denies further needs. HHC/SNF: Denies history or needs. Pt states that she recently finished OP Tx through [facility] Pt?s goal: Home Plan: Home no needs. 6-click is 23. There is no therapy ordered. Pt is planned for an ERCP today. At this time, the pt denies the need for HH or OP Tx. Pt states that she has plenty of support at home including her friends and neighbors. CM to follow. Nanette Olsen RN, CM
[2024-04-16] MEDS: Lactated Ringers 1,000 ML 15 ML IV (15:14)
--- NOTE | 2024-04-16 15:35 | PRE.ANES_ITS ---
ASA Classification* ASA Classification ASA Classification: 3 Assessment & Plan Anesthesia* Anesthesia Assessment Anesthesia Assessment: Discussed sedation and/or anesthesia options, risks, benefits, and alternatives with patient/parents/legal guardian/POA. Questions invited. The patient/parents/legal guardian/POA seems to understand and agrees to proceed with anesthesia plan. Reviewed the physical assessment, medical history, allergy history and patient home medications list prior to surgery/procedure/anesthetic and documented any changes. Performed airway and anesthesia risk assessments. Anesthesia Type Anesthesia Type: General History Source History Obtained from:: Patient and Chart Anesthesia Focused Assessment* Temperature: 98.2 F Pulse Rate: 88 Blood Pressure: 106/53 Respiratory Rate: 18 Pulse Ox: 97 Oxygen Delivery Method: Room Air Airway Assessment Mouth opens: >3 cm Mallampati Score: I Teeth Condition: Caps/Crowns (Patient has several crowns. They are all tight.) Neck Range of motion (ROM): Limited ROM Pertinent Findings EKG Pertinent Findings:: April 16, 2024. Normal sinus rhythm. Focused Labs Anesthesia Preop lab: CBC WBC 5.4 K/mm3 (4.4-11.0) 04/16/24 06:04 RBC 3.99 M/mm3 (4.2-5.4) L 04/16/24 06:04 Hgb 10.4 g/dL (12.0-15.0) L 04/16/24 06:04 Hct 33.5 % (37-47) L 04/16/24 06:04 Plt Count 176 K/mm3 (150-450) 04/16/24 06:04 CHEMISTRY Potassium 3.3 mmol/L (3.5-5.1) L 04/16/24 06:04 Sodium 141 mmol/L (136-145) 04/16/24 06:04 Magnesium 1.9 mg/dL (1.6-2.6) 04/16/24 06:04 Phosphorus 3.6 mg/dL (2.5-4.9) 04/16/24 06:04 BUN 9 mg/dL (7-18) 04/16/24 06:04 Creatinine 0.65 mg/dL (0.55-1.02) 04/16/24 06:04 Glucose 87 mg/dL (74-106) 04/16/24 06:04 POC Glucose 117 mg/dL (70-110) H 06/21/18 06:54 TSH 1.060 uIU/mL (0.358-3.740) 04/16/24 06:04 COAG PT 13.9 SECONDS (11.7-14.9) 04/16/24 06:04 Pre-Assessment Diagnosis/Proposed Procedure Planned Operative Procedure(s): Endoscopic retrograde cholangiopancreatography with possible biopsy and possible sphincterotomy with stone removal. 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 When Was Last Pacemaker Check QUESTION #4 FULL TEXT: You/Your Family Experience fever (hyperthermia) with Anesthesia Last Oral Intake Last Oral intake: Last Oral Intake NPO since Meds taken in AM with sips of water? Meds patient instructed to take am of surgery Any additional information?: Yes NPO since: 00:00 PONV PONV - residential air sealing technician: PONV - residential air sealing technician Female HX of Motion Sickness HX of N/V After Surgery Non-Smoker Duration of Surgery greater than 60 minutes Number of Risk Factors PONV Score Height & Weight Height & Weight: Anesthesia: Height & Weight Height 5 ft 1 in 04/16/24 13:49 Weight: 73.8 kg 04/16/24 13:49 Body Mass Index (BMI) 30.7 04/16/24 04:13 Respiratory Assessment Respiratory Assessment - residential air sealing technician: Respiratory Tract Infection Hx - residential air sealing technician Hx Respiratory Tract Infection No 10/10/23 14:22 STOP Sleep Apnea STOP Sleep Apnea - residential air sealing technician: STOP Sleep Apnea - residential air sealing technician Hx Hypertension Yes 04/15/24 22:01 Hx Sleep Apnea No 04/15/24 22:01 CPAP No 10/10/23 14:22 BIPAP Do you snore loudly (louder No 04/15/24 22:01 than talking or can be heard Do you often feel tired/ No 04/15/24 22:01 fatigued/ sleepy during daytime? Has anyone observed you stop No 04/15/24 22:01 breathing during sleep? STOP Results Negative 04/15/24 22:01 QUESTION #5 FULL TEXT : Do you snore loudly (louder than talking or can be heard through closed doors)? Tobacco Use History Tobacco Use History - residential air sealing technician: Tobacco Use History - residential air sealing technician Tobacco Use Smoking Status Never smoker 04/15/24 22:01 Hx Tobacco Use No 04/15/24 22:01 Years Smoking Packs Smoked per Day Smoking Cessation Date was within the last 15 years Hx Smoking Cessation Date Hx Smoking Cessation Counseling Hematologic Medial History Hematologic Hx - residential air sealing technician: Hematologic Medical Hx - reliability technologist Hx of Blood Transfusion No 04/15/24 22:01 Hx of Transfusion in last 3 No 04/15/24 22:01 Months Date of Last Transfusion (if within last 3 months) Ever experience any problems No 04/15/24 22:01 with transfusion(s)? Specify any problems Hx of Preganancy in last 3 No 04/15/24 22:01 Months Nurse Filling Out Transfusion [email or web address] 04/15/24 22:01 & Questions: Date: 04/15/24 04/15/24 22:01 Time: 22:12 04/15/24 22:01 Patient unable to answer at this time (ie. confused, unrespo /Reproduction History /Reproductive History - residential air sealing technician: /Reproductive Hx- residential air sealing technician Hx Now Gestational Age (in weeks): EDC: Hx Hx Para Hx Section SAB Active Medications Active Medications: Current Medications Generic Name Dose Route Start Last Admin Trade Name Freq PRN Reason Stop Dose Admin Albuterol Sulfate 2.5 mg 04/15/24 22:01 Albuterol 2.5 Mg/3 Ml Vial.Neb. INHALATION Q2H PRN PRN SOB &/OR WHEEZING Pantoprazole Sodium 40 mg/ 110 mls @ 330 mls/hr 04/15/24 20:10 04/16/24 09:51 Sodium Chloride IV Infused Q24 STORM Infusion Levofloxacin 750 mg in 150 mls @ 100 mls/hr 04/15/24 20:30 04/16/24 00:52 Levaquin Iv IV Infused QHS STORM Infusion Metronidazole 500 mg in 100 mls @ 100 mls/hr 04/15/24 22:00 04/16/24 14:43 Flagyl IV Infused Q8 STORM Infusion Lactated Ringer's 1,000 mls @ 15 mls/hr 04/16/24 15:15 04/16/24 15:14 IV 04/22/24 04:34 15 mls/hr .Q48H STORM Administration Protocol Ketorolac Tromethamine 15 mg 04/15/24 22:01 Ketorolac 15 Mg/Ml Vial IM 04/20/24 22:01 Q8H PRN PRN Pain 1-5/10 or Fever Morphine Sulfate 2 mg 04/15/24 22:01 Morphine 2 Mg/Ml Syringe IV Q4H PRN PRN Pain Score 6-10 Nutritional Formula (Lactose Free) 120 ml 04/16/24 10:00 04/16/24 13:01 Ensure Plus High Protein 120 Ml Liquid PO Not Given 4X/DAY STORM Ondansetron HCl 4 mg 04/15/24 22:01 Ondansetron 4 Mg/2 Ml Vial IV Q6H PRN PRN NAUSEA/VOMITING Promethazine HCl 12.5 mg 04/15/24 22:01 Promethazine 25 Mg/Ml Syringe IM Q4H PRN PRN NAUSEA/VOMITING PFSH Medical History COVID-19 (~06/2021) History of FL (myocardial infarction) History of coronary artery disease Essential hypertension Monoclonal gammopathy of unknown significance (MGUS) Monoclonal gammopathy Temporal arteritis Osteoarthritis of left shoulder Asthma HLD (hyperlipidemia) HTN (hypertension) Atherosclerotic heart disease of enterprise coronary artery without angina pectoris Acute ST elevation myocardial infarction GERD (gastroesophageal reflux disease) Hypothyroidism M?ni?re's disease Retinal tear of left eye Ulnar neuropathy Polyclonal gammopathy GERD (gastroesophageal reflux disease) IBS (irritable bowel syndrome) Vitamin D deficiency Osteopenia Incontinence Knee pain PVC's (premature ventricular contractions) SOB (shortness of breath) Arthritis Home Medications ?Medication ?Instructions ?Recorded ?Last Taken ?Type levothyroxine 50 mcg tablet 50 mcg PO DAILY Thyroid 12/31/16 04/15/24 History metronidazole 0.75 % topical cream 1 applicatio topical DAILY rosacea 01/07/19 10/20/24 History 68 days #135 grams acetaminophen 500 mg tablet 500 - 1,000 mg PO DAILY PRN PRN 08/06/20 08/01/20 History Pain 1-10 Or Fever potassium chloride 20 mEq 20 meq PO DAILY supplement 09/22/20 08/08/21 History tablet,extended release(part/cryst) omeprazole 40 mg capsule,delayed 40 mg PO DAILY gerd 08/05/21 04/15/24 History release atorvastatin 80 mg tablet 80 mg PO QHS cholesterol 08/08/21 04/14/24 History hydrochlorothiazide 25 mg tablet 25 mg PO DAILY diuretic 08/28/21 04/15/24 History cholecalciferol (vitamin D3) 50 2,000 unit PO DAILY SUPPLEMENT 04/05/22 04/13/24 History mcg (2,000 unit) capsule losartan 25 mg tablet 25 mg PO DAILY blood pressure #90 07/06/23 04/15/24 Rx tabs metoprolol tartrate 50 mg tablet 50 mg PO BID this is a dose 09/28/23 04/14/24 Rx increase #180 tabs mecobalamin (vitamin B12) 1,000 1,000 mcg sublingual DAILY 10/26/23 04/13/24 History mcg disintegrating supplement tablet,sublingual aspirin 81 mg chewable tablet 81 mg PO DAILY #30 tabs 12/21/23 04/13/24 Rx Allergy/AdvReac Type Severity Reaction Status Date / Time clarithromycin (From Biaxin) Allergy Rash Verified 04/15/24 15:00 sulfamethoxazole (From Allergy Rash Verified 04/15/24 15:00 Bactrim) trimethoprim (From Bactrim) Allergy Rash Verified 04/15/24 15:00 carvedilol (From Coreg) AdvReac Intermediate Nausea, Verified 04/15/24 15:00 Lightheaded codeine AdvReac Upset Verified 04/15/24 15:00 Stomach lisinopril AdvReac cough Verified 04/15/24 15:00 Penicillins AdvReac Other Verified 04/15/24 15:00 Family History Mother Cancer skin Anemia Father Cancer Heart disease Surgical History History of temporal artery biopsy (~12/2018) History of delivery Stented coronary artery (12/25/18) History of dilatation and curettage Hx of breast biopsy Hx of tonsillectomy Social History Smoking Status: Never smoker alcohol intake: never substance use type: does not use caffeine: No Review of Systems (Anesthesia) ROS Narrative System reviewed and no additional complaints, except as documented.
--- NOTE | 2024-04-16 16:04 | CHAPLAIN ---
Type of Pastoral Visit _x__ Initial Visit ___ Follow-up Visit ___ On-call Visit ___ General Patient Visit ___ Spiritual Assessment ___ Family Conference ___ Bereavement ___ Rapid Response ___ Code Blue ___ Other (describe below) Pastoral Care Referral From _x__ Patient ___ Family ___ Nurse ___ Physician ___ Breakdown Man ___ Purse Framer ___ Other (describe below) Sacrament/Intervention _x__ Active listening ___ Anointing ___ Uatsdin ___ Bereavement ___ Communion _x__ Yeimy exploration ___ _x__ Life review _x_ Prayer ___ Reconciliation ___ Sacrament of Sick _x__ Supportive presence ___ Wedding ___ Other (describe below) Pastoral Comments patient remembers this flight engineer and gives much life review and updates since last meeting; pt has limitations in life but expresses how she overcomes; pt shows some humor in the midst of her circumstances; presence and prayer welcomed
--- NOTE | 2024-04-16 16:45 | RAD_ITS ---
Exam: FL ERCP Biliary and Pancreatic Ductal Systems Comparison: CT April 15, 2024. History: ERCP Radiation: No data provided. Please see procedure report. TECHNIQUE: 6 fluoroscopic spot images are provided. FINDINGS: Endoscopy tube well-positioned. Initial image shows well opacified common bile duct and right and left hepatic ducts tapering distal duct and no visible filling defect. Apparently balloon sweep of the common duct. Cystic duct opacified on image #4 and gallbladder or gallbladder fossa opacified with small filling defects on images 5 and 6. Good clearance of contrast from the common duct on image #6. RAD/ERCP Biliary/Pancreas IMPRESSION: Static fluoroscopy images. Electronically Signed: Joselin Soria MD at 1:51 EDT ,
--- NOTE | 2024-04-16 17:22 | PCM.POST.ANE ---
Anesthesia: Postop Eval I Current Vital Signs Temperature: 97 F Pulse Rate: 83 Blood Pressure: 84/42 Respiratory Rate: 18 Pulse Ox: 97 Assessment Airway patent: Yes Spontaneous unlabored respirations: Yes nausea: No Vomiting: No Anesthesia Complication: No Fluid Hydration Crystalloid volume administer (ml): 5 Total IV fluid infused: 5 Progress Note Anesthesia document: Postop Eval 1 completed: Yes
--- NOTE | 2024-04-16 17:23 | PCM.POSTANE2 ---
Anesthesia Postop Eval I Sum Postop Eval Completion status Anesthesia document: Postop Eval 1 completed: Yes Anesthesia Postop Eval I Summary Anesthesia Postop Eval I Summary: Anesthesia Postop Eval I: Assessment Summary Airway patent Yes 04/16/24 17:23 Spontaneous unlabored Yes 04/16/24 17:23 respirations Mental status nausea No 04/16/24 17:23 Vomiting No 04/16/24 17:23 Anesthesia Postop Eval I: Fluid Summary Crystalloid volume administer 5 04/16/24 17:23 (ml) Colloids volume administered ( ml) Blood Product volume administered (ml) Total IV fluid infused 5 04/16/24 17:23 Anesthesia Postop Eval I: Summary Notes Anesthesia Complication No 04/16/24 17:23 Anesthesia Complication Comment: Post-operative progress note Anesthesia: Postop Eval II Evaluation Mental status: Awake Pain Level: 0 nausea: No Vomiting: No
--- NOTE | 2024-04-16 17:56 | PCM.POST.ANE ---
Anesthesia: Postop Eval I Current Vital Signs Temperature: 97.4 F Pulse Rate: 82 Blood Pressure: 84/42 Respiratory Rate: 18 Pulse Ox: 92 Oxygen Delivery Method: Room Air Oxygen Flow Rate (L/min): 2 Assessment Airway patent: Yes Spontaneous unlabored respirations: Yes Mental status: Awake, Calm and Confused nausea: No Vomiting: No Anesthesia Complication: No Fluid Hydration Crystalloid volume administer (ml): 100 Total IV fluid infused: 100 Progress Note Anesthesia document: Postop Eval 1 completed: Yes
--- NOTE | 2024-04-16 17:57 | POSTOPAN2_ITS ---
Anesthesia Postop Eval I Sum Postop Eval Completion status Anesthesia document: Postop Eval 1 completed: Yes Anesthesia Postop Eval I Summary Anesthesia Postop Eval I Summary: Anesthesia Postop Eval I: Assessment Summary Airway patent Yes 04/16/24 17:57 [email or web address] Spontaneous unlabored Yes 04/16/24 17:57 [email or web address] respirations Mental status Awake,Calm, 04/16/24 17:57 [email or web address] Confused nausea No 04/16/24 17:57 [email or web address] Vomiting No 04/16/24 17:57 [email or web address] Anesthesia Postop Eval I: Fluid Summary Crystalloid volume administer 100 04/16/24 17:57 [email or web address] (ml) Colloids volume administered ( ml) Blood Product volume administered (ml) Total IV fluid infused 100 04/16/24 17:57 [email or web address] Anesthesia Postop Eval I: Summary Notes Anesthesia Complication No 04/16/24 17:57 [email or web address] Anesthesia Complication Comment: Post-operative progress note Anesthesia: Postop Eval II Evaluation Mental status: Awake and Calm Pain Level: 0 nausea: No Vomiting: No Complications Anesthesia Complication: No
--- NOTE | 2024-04-16 17:57 | PCM.POSTANE2 ---
Anesthesia Postop Eval I Sum Postop Eval Completion status Anesthesia document: Postop Eval 1 completed: Yes Anesthesia Postop Eval I Summary Anesthesia Postop Eval I Summary: Anesthesia Postop Eval I: Assessment Summary Airway patent Yes 04/16/24 17:57 [email or web address] Spontaneous unlabored Yes 04/16/24 17:57 [email or web address] respirations Mental status Awake,Calm, 04/16/24 17:57 [email or web address] Confused nausea No 04/16/24 17:57 [email or web address] Vomiting No 04/16/24 17:57 [email or web address] Anesthesia Postop Eval I: Fluid Summary Crystalloid volume administer 100 04/16/24 17:57 [email or web address] (ml) Colloids volume administered ( ml) Blood Product volume administered (ml) Total IV fluid infused 100 04/16/24 17:57 [email or web address] Anesthesia Postop Eval I: Summary Notes Anesthesia Complication No 04/16/24 17:57 [email or web address] Anesthesia Complication Comment: Post-operative progress note Anesthesia: Postop Eval II Evaluation Mental status: Awake and Calm Pain Level: 0 nausea: No Vomiting: No Complications Anesthesia Complication: No
--- NOTE | 2024-04-16 18:04 | OP.CCLET_ITS ---
04/16/2024 Mikael Ramires [address] [place] [address] [place] [address] Re : ERCP procedure for China Beltran Dear Dr. Ramires This procedure was performed on Tuesday, April 16, 2024. My impressions and recommendations are as follows: Impressions : - A long cystic duct was seen on the cholangiogram. 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 - Multiple gastric polyps. - The entire main bile duct and entire biliary tree were dilated, with a stone causing an obstruction. - Choledocholithiasis was found. Complete removal was accomplished by biliary sphincterotomy and balloon extraction. - A biliary sphincterotomy was performed. - The biliary tree was swept. - One temporary stent was placed into the common bile duct. Recommendations : My findings are described in the full procedure note, which is enclosed. If I can be of further assistance, please feel free to contact me at . Sincerely, Denton Morgan, 04/16/2024 6:03:40 PM This report has been signed electronically.
--- NOTE | 2024-04-16 18:04 | OP.ERCP_ITS ---
Patient Name: China Beltran Procedure Date: 04/16/2024 4:03 PM Date of : 1950 Age: 73 Procedure: ERCP Indications: Abdominal pain of suspected biliary origin, Jaundice, Elevated liver enzymes Providers: Denton Morgan DO Medicines: Monitored Anesthesia Care Patient Profile: This is a 73 year old female. Refer to note in patient chart for documentation of history and physical. Patient has symptoms of acute right upper quadrant abdominal pain and acute jaundice. Complications: No immediate complications. Procedure: Pre-Anesthesia Assessment: - Prior to the procedure, a History and Physical was performed, and patient medications and allergies were reviewed. The patient is competent. The risks and benefits of the procedure and the sedation options and risks were discussed with the patient. All questions were answered and informed consent was obtained. Patient identification and proposed procedure were verified by the physician in the pre-procedure area. Mental Status Examination: alert and oriented. Airway Examination: normal oropharyngeal airway and neck mobility. Respiratory Examination: clear to auscultation. CV Examination: normal. Prophylactic Antibiotics: The patient does not require prophylactic antibiotics. Prior Anticoagulants: The patient has taken no anticoagulant or antiplatelet agents. ASA Grade Assessment: II - A patient with mild systemic disease. After reviewing the risks and benefits, the patient was deemed in satisfactory condition to undergo the procedure. The anesthesia plan was to use monitored anesthesia care (MAC). Immediately prior to administration of medications, the patient was re-assessed for adequacy to receive sedatives. The heart rate, respiratory rate, oxygen saturations, blood pressure, adequacy of pulmonary ventilation, and response to care were monitored throughout the procedure. The physical status of the patient was re-assessed after the procedure. After obtaining informed consent, the scope was passed under direct vision. Throughout the procedure, the patient's blood pressure, pulse, and oxygen saturations were monitored continuously. The Duodenoscope was introduced through the mouth, and advanced to the duodenum and used to inject contrast into the bile duct and ventral pancreatic duct. The ERCP was accomplished without difficulty. The patient tolerated the procedure well. Scope In: 4:44:11 PM Scope Out: 4:56:54 PM Total Procedure Duration Time 0 hours 12 minutes 43 seconds Findings: The application design engineer film was normal. The esophagus was successfully intubated under direct vision. The scope was advanced to a normal major papilla in the descending duodenum without detailed examination of the pharynx, larynx and associated structures, and upper GI tract. The upper GI tract was grossly normal. A long 0.025 inch Jagwire was passed into the biliary tree. The short-nosed traction sphincterotome was passed over the guidewire and the bile duct was then deeply cannulated. Contrast was injected. I personally interpreted the bile duct images. There was brisk flow of contrast through the ducts. Image quality was adequate. Contrast extended to the entire biliary tree. The main bile duct contained three stones, the largest of which was 6 mm in diameter. The entire biliary tree except for the cystic duct and gallbladder, main bile duct and entire biliary tree were diffusely dilated, with a stone causing an obstruction. The largest diameter was 9 mm. A 5 mm biliary sphincterotomy was made with a traction (standard) sphincterotome using ERBE electrocautery. The sphincterotomy oozed blood. The biliary tree was swept with a 12 mm balloon starting at the bifurcation and left intrahepatic duct(s). Sludge was swept from the duct. All stones were removed. A long 0.025 inch Jagwire was passed into the biliary tree. The short-nosed traction sphincterotome was passed over the guidewire and the bile duct was then deeply cannulated. Contrast was injected. Opacification of the cystic duct was successful. The maximum diameter of the ducts was 4 mm. A long cystic duct originated in the middle third of the main bile duct. One 10 Fr by 5 cm temporary stent with a single external flap was placed 5 cm into the common bile duct. Bile flowed through the stent. The stent was in good position. A standard esophagogastroduodenoscopy scope was used for the examination of the upper gastrointestinal tract. The scope was passed under direct vision through the upper GI tract. 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 The maximum longitudinal extent of these mucosal changes was 3 cm in length. Multiple 30 mm pedunculated and sessile polyps with bleeding and no stigmata of recent bleeding were found in the stomach. Impression: - A long cystic duct was seen on the cholangiogram. 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 - Multiple gastric polyps. - The entire main bile duct and entire biliary tree were dilated, with a stone causing an obstruction. - Choledocholithiasis was found. Complete removal was accomplished by biliary sphincterotomy and balloon extraction. - A biliary sphincterotomy was performed. - The biliary tree was swept. - One temporary stent was placed into the common bile duct. Denton Morgan DO 04/16/2024 6:03:40 PM This report has been signed electronically. Number of Addenda: 0 Note Initiated On: 04/16/2024 4:03 PM
[2024-04-16] MEDS: levoFLOXacin IV 750 MG/150 ML BAG 100 MG IV (23:25)
[2024-04-17] VITALS (9 sets, daily range): BP systolic 111–132; BP diastolic 49–63; PULSE 81–102; RESP 13–18; TEMP 36.1–36.8; O2SAT 93–96; BMI 30.7
[2024-04-17 05:08] LABS: HEPATITIS B SURFACE AG Negative (Negative); Hep C Antibodies Non Reactive (Non Reactive); Hepatitis A IgM Antibody Negative (Negative); Hepatitis B Core AB IgM Negative (Negative)
[2024-04-17] MEDS: metroNIDAZOLE 500 MG/100 ML BAG 100 MG IV ×3 (05:26→21:41)
[2024-04-17 06:35] LABS: Absolute Lymphocyte Count 0.77 X10^3/uL (0.83-4.51); Absolute Neutrophil Count 4.3 X10^3/uL (2.0-7.7); Basophil# 0.02 X10^3/uL; Basophil% 0.3 % (0-1); Eosinophil# 0.06 X10^3/uL; Hematocrit 30.9 % (37-47); Hemoglobin 9.8 g/dL (12.0-15.0); Lymphocyte # 0.77 X10^3/ul (0.83-4.51); Lymphocyte % 13.1 % (19-41); Mean Corp Hgb Conc 31.7 g/dL (32-36); Mean Corpuscular Hgb 26.6 pg (27.0-32.0); Mean Platelet Vol. 11.3 fl (6.2-12.0); Monocyte# 0.72 X10^3/uL; Monocyte% 12.2 % (0-10); NRBC Flagged by Analyzer 0 % (0-5); Neutrophil # 4.29 X10^3/uL (2.7-7.7); Neutrophil % 73.1 % (47-70); Platelet Count 173 K/mm3 (150-450); RBC Distribution Width CV 15.1 % (11.6-14.6); RBC Distribution Width SD 45.9 fl (35.1-43.9); Red Blood Count 3.68 M/mm3 (4.2-5.4); White Blood Count 5.9 K/mm3 (4.4-11.0)
[2024-04-17 07:04] LABS: ALB/GLOB Ratio 0.8 RATIO (0.9-2.4); AST(SGOT) 254 U/L (15-37); Alanine Aminotransfer ALT/SGPT 415 U/L (13-56); Albumin, Serum 2.6 g/dL (3.2-5.0); Alkaline Phosphatase 467 U/L (45-117); Anion Gap 5 (5-15); BUN 13 mg/dL (7-18); BUN/Creat Ratio 21.3 RATIO (10-20); Calcium,Total 8.8 mg/dL (8.5-10.1); Chloride 107 mmol/L (98-107); Creatinine, Serum 0.61 mg/dL (0.55-1.02); EST Glomerular Filtration Rate 102 mL/min (>60); Est Glom Filt Rate - Afr Amer 123 mL/min (>60); Estimated Creatinine Clearance 57.54 ml/min; Globulin 3.4 g/dL (2.2-4.2); Glucose 104 mg/dL (74-106); Magnesium 1.9 mg/dL (1.6-2.6); Phosphorus 2.9 mg/dL (2.5-4.9); Potassium 3.5 mmol/L (3.5-5.1); Sodium Level 137 mmol/L (136-145)
--- NOTE | 2024-04-17 09:50 | PN.HOSP_ITS ---
Subjective Subjective Doing well, no issues overnight. Will advance to a low-fat diet Objective Data Objective Data Vital Signs: Vital Signs Temp Pulse Resp BP Pulse Ox O2 Del Method O2 Flow Rate 97.7 F L 81 15 111/52 L 94 Room Air 2 04/17/24 02:19 04/17/24 04:00 04/17/24 02:19 04/17/24 02:19 04/17/24 08:39 04/17/24 08:39 04/16/24 17:57 Oxygen Flow Rate (L/min) 2 Oxygen Delivery Method Room Air Weight: 162 lb 11.218 oz Body Mass Index (BMI) 30.7 Intake & Output: Intake and Output for Last 24 Hours 04/16/24 04/17/24 04/18/24 03:59 03:59 03:59 Intake Total 360 / 360 2060 / 2060 Output Total 400 / 400 300 / 300 Balance 360 / 360 1660 / 1660 -300 / -300 Lab / Micro Data 04/17/24 06:03 04/17/24 06:03 Labs: Laboratory Results - last 24 hr 04/16/24 06:04: Hepatitis A IgM Ab Negative, Hep Bs Antigen Negative, Hep B Core IgM Ab Negative, Hepatitis C Ab (EIA) Non Reactive, Hep C Ab Comment Comment 04/17/24 06:03: WBC 5.9, RBC 3.68 L, Hgb 9.8 L, Hct 30.9 L, MCV 84.0, MCH 26.6 L , MCHC 31.7 L, RDW Std Deviation 45.9 H, RDW Coeff of Agnieszka 15.1 H, Plt Count 173, MPV 11.3, Immature Gran % (Auto) 0.300, Neut % (Auto) 73.1 H, Lymph % (Auto) 13.1 L, [place] % (Auto) 12.2 H, Eos % (Auto) 1.0, Baso % (Auto) 0.3, Absolute Neuts (auto) 4.3, Absolute Lymphs (auto) 0.77 L, Nucleated RBC % 0, Sodium 137, Potassium 3.5, Chloride 107, Carbon Dioxide 25.0, Anion Gap 5, BUN 13, Creatinine 0.61, Estim Creat Clear Calc 57.54, Est GFR (MDRD) Af Amer 123, Est GFR (MDRD) Non-Af 102, BUN/Creatinine Ratio 21.3 H, Glucose 104, Calcium 8.8, Phosphorus 2.9, Magnesium 1.9, Total Bilirubin 1.30 H, AST 254 H, ALT 415 H, A lkaline Phosphatase 467 H, Total Protein 6.0 L, Albumin 2.6 L, Globulin 3.4, A lbumin/Globulin Ratio 0.8 L Radiography Diagnostic Testing: Radiology Impression Endo Retro Cholangiopancreatogram 04/16/24 16:45 IMPRESSION: Static fluoroscopy images. Electronically Signed: Joselin Soria MD at 1:51 EDT , Physical Exam Narrative General: Alert, Oriented x3, Cooperative, No apparent distress HEENT: Atraumatic, PERRLA, EOMI, Normocephalic Oral: Moist Mucosa Neck: Supple, No JVD Lungs: Clear to auscultation, Normal air movement, No rhonchi, No wheeze, No rales Cardiovascular: Regular rate, Regular Rhythm, Normal S1, Normal S2, No murmurs Abdomen: Soft, Non Tender, Non-Distended, No Hepato-splenomegaly Extremities: No edema, Capillary Refill Less than 3 Seconds Skin: No rashes, No breakdown Musculoskeletal: No Tenderness to Palpation of Joints or Extremities Neurological: No focal neurological deficits, Motor Exam 5/5 strength throughout, Sensory exam intact to light touch and pain Psych/Mental Status: Normal Affect, Appropriate Assessment & Plan Assessment/Plan (1) Gallbladder contraction: (2) Elevated liver enzymes: (3) Nausea and vomiting: QUALIFIERS: Vomiting type: unspecified Qualified Code(s): R11.2 - Nausea with vomiting, unspecified PLAN: Plan 1. Right upper quadrant abdominal pain with nausea and vomiting/GERD ? ERCP with choledocholithiasis, stent was placed ? She is on IV Levaquin and Flagyl because of her allergies ? Continue with antinausea medications and pain meds as needed ? Continue PPI ? Will continue with a low-fat diet and if she tolerates this then we can potentially plan for discharge however she has resurgence of her pain then will likely need to have general surgery for cholecystectomy 2. Essential HTN/HLD/paroxysmal A-fib ? Blood pressure stable ? Can continue with her home medications when she takes p.o. ? Can resume her home statin when she can take p.o. ? Will monitor and make adjustments as necessary ? Not on any anticoagulation and currently normal sinus 3. Hypothyroidism ? Stable ? Can resume her Synthroid when taking p.o. DVT: SCDs Charges/Coding Visit Charges Inpatient E&M: 64900 Subs Hosp L2
[2024-04-17] MEDS: Pantoprazole Sodium 40 MG in 0.9% Normal Saline (100mL MB+) 100 ML 330 MG IV (10:10)
--- NOTE | 2024-04-17 12:37 | EX.PCM.CON.S ---
Assessment & Plan Assessment/Plan (1) Elevated liver enzymes: (2) Cholelithiasis: QUALIFIERS: Cholelithiasis location: gallbladder Cholecystitis presence: without cholecystitis Biliary obstruction: with biliary obstruction Qualified Code(s): K80.21 - Calculus of gallbladder without cholecystitis with obstruction (3) Choledocholithiasis: PLAN: Plan I have been consulted in conjunction with Dr. Whitehead. She will independently evaluated this patient. Patient presents with a single episode of right upper quadrant pain caused by choledocholithiasis. Patient had an ERCP with stent placement yesterday. Patient's RUQ u/s does demonstrate gallstones within the gallbladder. Patient notes her pain has resolved at the time of this evaluation. Medicine will trial patient with a regular cardiac diet. If this does not cause symptoms, patient will be discharged to home. If her diet were to cause continued symptoms and pain, Dr. Whitehead will plan to perform a cholecystectomy. It has been reviewed with the patient that if she were discharged today, Dr. Whitehead will plan to perform a laparoscopic cholecystectomy with intraoperative cholangiogram as an outpatient. Patient is scheduled for Wednesday, April 24, [address] Whitehead. Procedure details, risks and benefits have been explained. A surgical book and wash along with post-operative instructions were provided to the patient. Patient has had the opportunity to ask and have questions answered. Patient will hold her aspirin 1 week prior to the procedure. Patient verbally understands agrees with the plan. Thank you for allowing us to participate in this patient's care. 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 Patient notes having sao tomean food, grilled chicken and vegetables, on . She noted that night she felt bloated. She had nausea and ended up vomiting to feel better. She notes eating light on Tuesday and Tuesday. She notes on Tuesday the abdominal pain became more present and she decided to come to the ED. Patient notes she has never had any issues with her gallbladder previously. She notes her previous abdominal surgical history includes a single . She notes a history of a myocardial infarction in 2018. She had [address] Warner at that time. She notes only blood thinner is aspirin. She states her photofinishing laboratory worker is Dr. Davila. She notes recently having cataract surgery on April 09 and March 26 2024. She notes a history of asthma for which she has not had to use an inhaler for. She notes a history of ulcerative colitis at the age of 15. She has not had any further flare-ups. She notes her last colonoscopy was a while ago, unsure of the date. RUQ u/s demonstrated cholelithiasis. CBD measures 7mm. No pericholecystic fluid, negative Redding's sign. Normal distended gallbladder. Liver enzymes elevated with T. Bili at 3, AST 423, ALT 618, Alk Phos [address] Morgan performed an ERCP with stent placement on 04/16/24 which showed short-segment Davidson's disease multiple gastric polyps, Choledocholithiasis was encountered and removal was complete with one stent placed. 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 Retinal tear of left eye Ulnar neuropathy Polyclonal gammopathy GERD (gastroesophageal reflux disease) IBS (irritable bowel syndrome) Vitamin D deficiency Osteopenia Incontinence Knee pain PVC's (premature ventricular contractions) SOB (shortness of breath) Arthritis Home Medications ?Medication ?Instructions ?Recorded ?Last Taken ?Type levothyroxine 50 mcg tablet 50 mcg PO DAILY Thyroid 12/31/16 04/15/24 History metronidazole 0.75 % topical cream 1 applicatio topical DAILY rosacea 07/03/18 04/15/24 History 68 days #135 grams acetaminophen 500 mg tablet 500 - 1,000 mg PO DAILY PRN PRN 08/06/20 08/01/20 History Pain 1-10 Or Fever potassium chloride 20 mEq 20 meq PO DAILY supplement 09/22/20 08/08/21 History tablet,extended release(part/cryst) omeprazole 40 mg capsule,delayed 40 mg PO DAILY gerd 08/05/21 04/15/24 History release atorvastatin 80 mg tablet 80 mg PO QHS cholesterol 08/08/21 04/14/24 History hydrochlorothiazide 25 mg tablet 25 mg PO DAILY diuretic 08/28/21 04/15/24 History cholecalciferol (vitamin D3) 50 2,000 unit PO DAILY SUPPLEMENT 04/05/22 04/13/24 History mcg (2,000 unit) capsule losartan 25 mg tablet 25 mg PO DAILY blood pressure #90 07/06/23 04/15/24 Rx tabs metoprolol tartrate 50 mg tablet 50 mg PO BID this is a dose 09/28/23 04/14/24 Rx increase #180 tabs mecobalamin (vitamin B12) 1,000 1,000 mcg sublingual DAILY 10/26/23 04/13/24 History mcg disintegrating supplement tablet,sublingual aspirin 81 mg chewable tablet 81 mg PO DAILY #30 tabs 12/21/23 04/13/24 Rx Allergy/AdvReac Type Severity Reaction Status Date / Time clarithromycin (From Biaxin) Allergy Rash Verified 04/15/24 15:00 sulfamethoxazole (From Allergy Rash Verified 04/15/24 15:00 Bactrim) trimethoprim (From Bactrim) Allergy Rash Verified 04/15/24 15:00 carvedilol (From Coreg) AdvReac Intermediate Nausea, Verified 04/15/24 15:00 Lightheaded codeine AdvReac Upset Verified 04/15/24 15:00 Stomach lisinopril AdvReac cough Verified 04/15/24 15:00 Penicillins AdvReac Other Verified 04/15/24 15:00 Family History Mother Cancer skin Anemia Father Cancer Heart disease Surgical History History of temporal artery biopsy (~12/2018) History of delivery Stented coronary artery (06/20/18) History of dilatation and curettage Hx of breast biopsy Hx of tonsillectomy Social History Smoking Status: Never smoker alcohol intake: never substance use type: does not use caffeine: No ROS Constitutional Constitutional: Reports systems reviewed and no addt'l complaints, except as documented Eyes Eyes: Reports systems reviewed and no addt'l complaints, except as documented ENT HEENT: Reports systems reviewed and no addt'l complaints, except as documented Cardiovascular Cardiovascular: Reports systems reviewed and no addt'l complaints, except as documented Respiratory/Chest Respiratory/Chest: Reports systems reviewed and no addt'l complaints, except as documented Gastrointestinal Gastrointestinal: Reports systems reviewed and no addt'l complaints, except as documented Genitourinary Genitourinary: Reports systems reviewed and no addt'l complaints, except as documented Musculoskeletal Musculoskeletal: Reports systems reviewed and no addt'l complaints, except as documented Integumentary Integumentary: Reports systems reviewed and no addt'l complaints, except as documented Neurologic Neurologic: Reports systems reviewed and no addt'l complaints, except as documented Psychiatric Psychiatric: Reports systems reviewed and no addt'l complaints, except as documented Endocrine Endocrinology: Reports systems reviewed and no addt'l complaints, except as documented Hematologic/Lymphatic Hematologic/Lymphatic: Reports systems reviewed and no addt'l complaints, except as documented Allergic/Immunologic Allergic/Immunologic: Reports systems reviewed and no addt'l complaints, except as documented Physical Exam Const alert, oriented x3 and no apparent distress HEENT normocephalic and head/scalp atraumatic Eyes PERRL Neck full ROM Lymph Lymphatic: no lymphadenopathy noted Resp normal respiratory effort and clear to auscultation bilaterally Cardio regular rate and regular rhythm GI normal to inspection, nondistended, normoactive bowel sounds no CVA tenderness Back/Spine no CVA tenderness Extremity normal to inspection Skin no rashes or lesions noted Neuro no focal motor deficits and no sensory deficits noted Psych mental status grossly normal and thought process normal Lab / Micro Data 04/17/24 06:03 04/17/24 06:03 Labs: Laboratory Results - last 24 hr 04/16/24 06:04: Hepatitis A IgM Ab Negative, Hep Bs Antigen Negative, Hep B Core IgM Ab Negative, Hepatitis C Ab (EIA) Non Reactive, Hep C Ab Comment Comment 04/17/24 06:03: WBC 5.9, RBC 3.68 L, Hgb 9.8 L, Hct 30.9 L, MCV 84.0, MCH 26.6 L, MCHC 31.7 L, RDW Std Deviation 45.9 H, RDW Coeff of Agnieszka 15.1 H, Plt Count 173, MPV 11.3, Immature Gran % (Auto) 0.300, Neut % (Auto) 73.1 H, Lymph % (Auto) 13.1 L, [place] % (Auto) 12.2 H, Eos % (Auto) 1.0, Baso % (Auto) 0.3, Absolute Neuts (auto) 4.3, Absolute Lymphs (auto) 0.77 L, Nucleated RBC % 0, Sodium 137, Potassium 3.5, Chloride 107, Carbon Dioxide 25.0, Anion Gap 5, BUN 13, Creatinine 0.61, Estim Creat Clear Calc 57.54, Est GFR (MDRD) Af Amer 123, Est GFR (MDRD) Non-Af 102, BUN/Creatinine Ratio 21.3 H, Glucose 104, Calcium 8.8, Phosphorus 2.9, Magnesium 1.9, Total Bilirubin 1.30 H, AST 254 H, ALT 415 H, Alkaline Phosphatase 467 H, Total Protein 6.0 L, Albumin 2.6 L, Globulin 3.4, Albumin/Globulin Ratio 0.8 L Imaging Radiology Impression Endo Retro Cholangiopancreatogram 04/16/24 16:45 IMPRESSION: Static fluoroscopy images. Electronically Signed: Joselin Soria MD at 1:51 EDT , Charges/Coding Visit Charges Inpatient E&M: 90442 Init Hosp L2
--- NOTE | 2024-04-17 17:11 | PN.GI_ITS ---
Subjective Subjective The patient underwent ERCP yesterday for obstructive jaundice. She had stones removed and temporary stent placement. She is tolerating her diet. She has no abdominal pain at this time. Her urine is becoming less dark. Objective Data Objective Data Vital Signs: Vital Signs Temp Pulse Resp BP Pulse Ox O2 Del Method O2 Flow Rate 98.3 F 95 18 117/49 L 94 Room Air 2 04/17/24 15:00 04/17/24 15:00 04/17/24 15:00 04/17/24 15:00 04/17/24 15:00 04/17/24 15:00 04/16/24 17:57 Oxygen Flow Rate (L/min) 2 Oxygen Delivery Method Room Air Weight: 162 lb 11.218 oz Body Mass Index (BMI) 30.7 Intake & Output: Intake and Output for Last 24 Hours 04/15/24 04/16/24 04/17/24 23:59 23:59 23:59 Intake Total 110 / 110 1660 / 2160 960 / 960 Output Total 900 / 900 Balance 110 / 110 1660 / 1760 60 / 60 Lab / Micro Data 04/17/24 06:03 04/17/24 06:03 Labs: Laboratory Results - last 24 hr 04/16/24 06:04: Hepatitis A IgM Ab Negative, Hep Bs Antigen Negative, Hep B Core IgM Ab Negative, Hepatitis C Ab (EIA) Non Reactive, Hep C Ab Comment Comment 04/17/24 06:03: WBC 5.9, RBC 3.68 L, Hgb 9.8 L, Hct 30.9 L, MCV 84.0, MCH 26.6 L , MCHC 31.7 L, RDW Std Deviation 45.9 H, RDW Coeff of Agnieszka 15.1 H, Plt Count 173, MPV 11.3, Immature Gran % (Auto) 0.300, Neut % (Auto) 73.1 H, Lymph % (Auto) 13.1 L, [place] % (Auto) 12.2 H, Eos % (Auto) 1.0, Baso % (Auto) 0.3, Absolute Neuts (auto) 4.3, Absolute Lymphs (auto) 0.77 L, Nucleated RBC % 0, Sodium 137, Potassium 3.5, Chloride 107, Carbon Dioxide 25.0, Anion Gap 5, BUN 13, Creatinine 0.61, Estim Creat Clear Calc 57.54, Est GFR (MDRD) Af Amer 123, Est GFR (MDRD) Non-Af 102, BUN/Creatinine Ratio 21.3 H, Glucose 104, Calcium 8.8, Phosphorus 2.9, Magnesium 1.9, Total Bilirubin 1.30 H, AST 254 H, ALT 415 H, A lkaline Phosphatase 467 H, Total Protein 6.0 L, Albumin 2.6 L, Globulin 3.4, A lbumin/Globulin Ratio 0.8 L Radiography Diagnostic Testing: Radiology Impression Endo Retro Cholangiopancreatogram 04/16/24 16:45 IMPRESSION: Static fluoroscopy images. Electronically Signed: Joselin Soria MD at 1:51 EDT , Physical Exam Const alert, oriented x3 and no apparent distress HEENT normocephalic and head/scalp atraumatic Eyes PERRL Neck full ROM Lymph Lymphatic: no lymphadenopathy noted Resp normal respiratory effort and clear to auscultation bilaterally Cardio regular rate and regular rhythm GI normal to inspection, nondistended, normoactive bowel sounds no CVA tenderness Back/Spine no CVA tenderness Extremity normal to inspection Skin no rashes or lesions noted Neuro no focal motor deficits and no sensory deficits noted Psych mental status grossly normal and thought process normal Assessment & Plan Assessment/Plan (1) Choledocholithiasis: PLAN: 73-year-old with obstructive jaundice secondary to choledocholithiasis status post stone removal and stent placement postop day 1. Patient is doing well. She is going to undergo elective cholecystectomy. I will continue to follow the patient while she is in the hospital. Charges/Coding Visit Charges Inpatient E&M: 56202 Subs Hosp L2
[2024-04-17] MEDS: levoFLOXacin IV 750 MG/150 ML BAG 100 MG IV (23:07)
[2024-04-18 01:00] VITALS: PULSE 107
[2024-04-18 02:00] VITALS: BP 141/57; PULSE 94; RESP 14; TEMP 36.5; O2SAT 94
[2024-04-18 04:25] VITALS: BMI 32.3
[2024-04-18 05:38] LABS: Absolute Lymphocyte Count 1.84 X10^3/uL (0.83-4.51); Absolute Neutrophil Count 4.5 X10^3/uL (2.0-7.7); Basophil# 0.03 X10^3/uL; Basophil% 0.4 % (0-1); Eosinophil# 0.12 X10^3/uL; Eosinophils% 1.7 % (0-5); Lymphocyte # 1.84 X10^3/ul (0.83-4.51); Lymphocyte % 25.5 % (19-41); Mean Corp Hgb Conc 31.3 g/dL (32-36); Mean Corpuscular Hgb 26.4 pg (27.0-32.0); Mean Corpuscular Volume 84.4 fL (81-99); Mean Platelet Vol. 10.7 fl (6.2-12.0); Monocyte# 0.68 X10^3/uL; Monocyte% 9.4 % (0-10); NRBC Flagged by Analyzer 0 % (0-5); Neutrophil # 4.53 X10^3/uL (2.7-7.7); Neutrophil % 62.7 % (47-70); Platelet Count 184 K/mm3 (150-450); RBC Distribution Width CV 15.1 % (11.6-14.6); RBC Distribution Width SD 46.3 fl (35.1-43.9); Red Blood Count 3.79 M/mm3 (4.2-5.4); White Blood Count 7.2 K/mm3 (4.4-11.0)
[2024-04-18] MEDS: metroNIDAZOLE 500 MG/100 ML BAG 100 MG IV (05:59)
[2024-04-18 06:00] LABS: ALB/GLOB Ratio 0.8 RATIO (0.9-2.4); AST(SGOT) 146 U/L (15-37); Alanine Aminotransfer ALT/SGPT 300 U/L (13-56); Albumin, Serum 2.7 g/dL (3.2-5.0); Alkaline Phosphatase 415 U/L (45-117); Anion Gap 5 (5-15); BUN 13 mg/dL (7-18); BUN/Creat Ratio 21.9 RATIO (10-20); Calcium,Total 8.7 mg/dL (8.5-10.1); Chloride 108 mmol/L (98-107); Creatinine, Serum 0.59 mg/dL (0.55-1.02); EST Glomerular Filtration Rate 105 mL/min (>60); Est Glom Filt Rate - Afr Amer 127 mL/min (>60); Estimated Creatinine Clearance 59.13 ml/min; Globulin 3.4 g/dL (2.2-4.2); Glucose 121 mg/dL (74-106); Potassium 3.5 mmol/L (3.5-5.1); Protein, Total 6.1 g/dL (6.4-8.2); Sodium Level 139 mmol/L (136-145)
[2024-04-18 06:29] VITALS: PULSE 104
--- NOTE | 2024-04-18 09:30 | PCM.PN.SRG ---
Subjective Subjective Patient evaluated resting comfortably in bed. She noted having intermittent spasms in the epigastric region which have only lasted seconds prior to resolving. She notes tolerating a regular diet. Objective Data Objective Data Vital Signs: Vital Signs Temp Pulse Resp BP Pulse Ox O2 Del Method O2 Flow Rate 97.7 F L 104 H 14 141/57 H 94 Room Air 2 04/18/24 02:00 04/18/24 06:29 04/18/24 02:00 04/18/24 02:00 04/18/24 02:00 04/18/24 02:00 04/16/24 17:57 Oxygen Flow Rate (L/min) 2 Oxygen Delivery Method Room Air Weight: 171 lb 8.314 oz Body Mass Index (BMI) 32.3 Intake & Output: Intake and Output for Last 24 Hours 04/16/24 04/17/24 04/18/24 23:59 23:59 23:59 Intake Total 1660 / 2160 1060 / 1060 250 / 250 Output Total 1300 / 1850 1050 / 1050 Balance 1660 / 1760 -240 / -790 -800 / -800 Lab / Micro Data 04/18/24 05:15 04/18/24 05:15 Labs: Laboratory Results - last 24 hr 04/18/24 05:15: WBC 7.2, RBC 3.79 L, Hgb 10.0 L, Hct 32.0 L, MCV 84.4, MCH 26.4 L, MCHC 31.3 L, RDW Std Deviation 46.3 H, RDW Coeff of Agnieszka 15.1 H, Plt Count 184, MPV 10.7, Immature Gran % (Auto) 0.300, Neut % (Auto) 62.7, Lymph % (Auto) 25.5, [place] % (Auto) 9.4, Eos % (Auto) 1.7, Baso % (Auto) 0.4, Absolute Neuts (auto) 4.5, Absolute Lymphs (auto) 1.84, Nucleated RBC % 0, Sodium 139, Potassium 3.5, Chloride 108 H, Carbon Dioxide 26.0, Anion Gap 5, BUN 13, Creatinine 0.59, Estim Creat Clear Calc 59.13, Est GFR (MDRD) Af Amer 127, Est GFR (MDRD) Non-Af 105, BUN/Creatinine Ratio 21.9 H, Glucose 121 H, Calcium 8.7, Total Bilirubin 0.70, AST 146 H, ALT 300 H, Alkaline Phosphatase 415 H, Total Protein 6.1 L, Albumin 2.7 L, Globulin 3.4, Albumin/Globulin Ratio 0.8 L Physical Exam GI GI Narrative: Abdomen- soft, benign. Assessment & Plan Assessment/Plan (1) Choledocholithiasis: (2) Cholelithiasis: QUALIFIERS: Cholelithiasis location: gallbladder Cholecystitis presence: without cholecystitis Biliary obstruction: with biliary obstruction Qualified Code(s): K80.21 - Calculus of gallbladder without cholecystitis with obstruction PLAN: Plan I am following this patient in conjunction with Dr. Whitehead. I have discussed this patient with Dr. Whitehead. Patient scheduled for lap anny on Tuesday with Dr. Whitehead Patient ready for discharge from surgery standpoint Charges/Coding Visit Charges Inpatient E&M: 59881 [facility] Hosp L1
--- NOTE | 2024-04-18 09:51 | DCINST_ITS ---
Discharge Instructions Diet Discharge Diet: Low fat / Low cholesterol Activity Discharge Activity: Return to Normal Activity Dressing / Incision Call your doctor if you observe: Fever of 101 or Higher, Shortness of breath, Dizziness, Fainting spells, Swelling in the ankles, Chest pain and Increased palpitations (irregular heartbeat) Follow Up Care Test Results: Test results from this visit will be discussed in further detail at your follow- up appointment, if applicable. Discharge Plan Admission Admit Date/Time: 04/15/24 20:02 Attending Provider: Charlie Saleem Primary Care Provider: Mikael Ramires Consulting Providers: Denton Morgan; Barry Johns Discharge Orders/Prescriptions Prescriptions: Continued metronidazole 0.75 % cream 1 applicatio TOPICAL DAILY 68 Days Qty: 135 Rx Instructions: FOR ROSACEA cholecalciferol (vitamin D3) 50 mcg (2,000 unit) capsule 2,000 unit PO DAILY mecobalamin (vitamin B12) 1,000 mcg tablet,disintegrating 1,000 mcg sublingual DAILY Rx Instructions: place tablet under tongue and allow to dissolve for at least30 secs before swallowing aspirin 81 mg tablet,chewable 81 mg PO DAILY Qty: 30 11RF levothyroxine 50 MCG tablet 50 mcg PO DAILY potassium chloride 20 mEq tablet,ER particles/crystals 20 meq PO DAILY omeprazole 40 mg capsule,delayed release(DR/EC) 40 mg PO DAILY acetaminophen 500 MG tablet 500 - 1,000 mg PO DAILY PRN PRN (Reason: Pain 1-10 Or Fever) atorvastatin 80 mg tablet 80 mg PO QHS hydrochlorothiazide 25 mg tablet 25 mg PO DAILY losartan 25 mg tablet 25 mg PO DAILY Qty: 90 3RF metoprolol tartrate 50 mg tablet 50 mg PO BID Qty: 180 3RF Referrals / Follow Up: Mikael Ramires DO [Primary Care Provider] - Within 1 Week Dneton Morgan DO [Med Staff - Active Staff] - Within 3 Months Disposition Disposition (needs filled in before D/C Order can be placed): Home, Self Care
[2024-04-18] MEDS: Pantoprazole Sodium 40 MG in 0.9% Normal Saline (100mL MB+) 100 ML 330 MG IV (10:02)
[2024-04-18 10:16] VITALS: BP 139/70; PULSE 101; RESP 14; TEMP 37.1; O2SAT 96
[2024-04-18 10:33] VITALS: BP 139/70; PULSE 101; RESP 14; TEMP 37.1; O2SAT 96
--- NOTE | 2024-04-18 10:39 | CASEMGMT ---
Order for DC placed. RN CM to pt room at this time. Pt currently up in the bathroom cleaning up. Pt states that she still feels safe discharging home and denies further questions, needs, or concerns at this time.
--- NOTE | 2024-04-18 10:50 | PHA.DC.MR.R ---
Pharmacy [place] Med Reconciliation Pharmacy Service has performed discharge medication reconciliation for this patient. The patient's discharge medication list was reviewed for discrepancies and discrepancies were resolved. Medications at Discharge Home Medications levothyroxine 50 mcg tablet 50 mcg PO DAILY Thyroid 12/31/16 metronidazole 0.75 % topical cream 1 applicatio topical DAILY rosacea 68 days #135 grams 07/03/18 acetaminophen 500 mg tablet 500 - 1,000 mg PO DAILY PRN PRN Pain 1-10 Or Fever 08/06/20 potassium chloride 20 mEq tablet,extended release(part/cryst) 20 meq PO DAILY supplement 09/22/20 omeprazole 40 mg capsule,delayed release 40 mg PO DAILY gerd 08/05/21 atorvastatin 80 mg tablet 80 mg PO QHS cholesterol 08/08/21 hydrochlorothiazide 25 mg tablet 25 mg PO DAILY diuretic 08/28/21 cholecalciferol (vitamin D3) 50 mcg (2,000 unit) capsule 2,000 unit PO DAILY SUPPLEMENT 04/05/22 losartan 25 mg tablet 25 mg PO DAILY blood pressure #90 tabs 07/06/23 metoprolol tartrate 50 mg tablet 50 mg PO BID this is a dose increase #180 tabs 09/28/23 mecobalamin (vitamin B12) 1,000 mcg disintegrating tablet,sublingual 1,000 mcg sublingual DAILY supplement 10/26/23 aspirin 81 mg chewable tablet 81 mg PO DAILY #30 tabs 12/21/23
--- NOTE | 2024-04-18 15:13 | PCM.DC.SUM ---
Providers Date of Admission: 04/15/24 Primary Care Physician: Dr. Mikael Ramires, DO Consultations 04/15/24 22:01 Consult: Gastroenterology Routine Consulting Provider: Friend,Denton Reason for Consult: Hyperbilirubinemia and increased LFTs with contracted gallbladder on CT. EMERGENT Consult: No MD Notified: Yes Date Notified: 04/16/24 Time Notified: 06:36 Method of Notification: Text Reason For Visit: SUSPECTED ACUTE CHOLECYSTITIS Diagnosis Discharge Diagnosis (1) Choledocholithiasis: Status: Acute Code(s): K80.50 - Calculus of bile duct without cholangitis or cholecystitis without obstruction (2) Cholelithiasis: Status: Acute Code(s): K80.20 - Calculus of gallbladder without cholecystitis without obstruction Qualifiers: Cholelithiasis location: gallbladder Cholecystitis presence: without cholecystitis Biliary obstruction: with biliary obstruction Qualified Code(s): K80.21 - Calculus of gallbladder without cholecystitis with obstruction Medications at Discharge Home Medications levothyroxine 50 mcg tablet 50 mcg PO DAILY Thyroid 12/31/16 metronidazole 0.75 % topical cream 1 applicatio topical DAILY rosacea 68 days #135 grams 07/03/18 acetaminophen 500 mg tablet 500 - 1,000 mg PO DAILY PRN PRN Pain 1-10 Or Fever 08/06/20 potassium chloride 20 mEq tablet,extended release(part/cryst) 20 meq PO DAILY supplement 09/22/20 omeprazole 40 mg capsule,delayed release 40 mg PO DAILY gerd 08/05/21 atorvastatin 80 mg tablet 80 mg PO QHS cholesterol 08/08/21 hydrochlorothiazide 25 mg tablet 25 mg PO DAILY diuretic 08/28/21 cholecalciferol (vitamin D3) 50 mcg (2,000 unit) capsule 2,000 unit PO DAILY SUPPLEMENT 04/05/22 losartan 25 mg tablet 25 mg PO DAILY blood pressure #90 tabs 07/06/23 metoprolol tartrate 50 mg tablet 50 mg PO BID this is a dose increase #180 tabs 09/28/23 mecobalamin (vitamin B12) 1,000 mcg disintegrating tablet,sublingual 1,000 mcg sublingual DAILY supplement 10/26/23 aspirin 81 mg chewable tablet 81 mg PO DAILY #30 tabs 12/21/23 Hospital Course Operations ERCP Procedures None Summary of Care Provided Minutes Spent on Discharge: 37 Hospital Course: Per HPI: CHELSEY TOLLIVER, is a 73 F with a past medical history of essential hypertension, hyperlipidemia, hypothyroidism, obesity; with a BMI of 32.8 this admission, CAD; s/p STEMI with subsequent stents x 2 (2017), history of atrial fibrillation, history of frequent PVCs, history of MGUS, history of asthma, history of temporal arteritis; s/p negative temporal artery biopsy (2018), history of tonsillectomy, history of delivery, history of breast biopsy, history of D&C, history of M?ni?re's disease, history of retinal tear of the Left eye, history of COVID-19 (2021), history of vitamin D deficiency with osteopenia, listed allergies to penicillin, Biaxin and Bactrim, IBS, GERD, and OA; primarily of the Left shoulder who presents to [facility] ER complaining of abdominal pain, nausea and vomiting. Ms. Tolliver reports her symptoms began approximately 3 days prior to admission after eating black pepper chicken when she suddenly began to have abdominal pain that was periumbilical. Then the next day she developed nausea and vomiting with bilious emesis followed by dry heaving. She states she tried to eat light over the past 2 days but was unable to do so due to pain and GI upset so she decided to come in for further evaluation and treatment. Nothing seems to make the pain better or worse. She denies a history of abdominal surgeries. She denies associated diarrhea, constipation or dysuria but she thinks her urine is darker in color than usual. In the ER she was noted to have a CT scan of the abdomen pelvis that revealed a contracted gallbladder with an elevated total bilirubin of 3 mg/dL along with an elevated AST of 423 units/L, ALT of 618 units/L and alkaline phosphatase of 562 units/L with suspected acute cholecystitis and possible common bile duct stone with general surgeon on-call recommending patient be admitted to the hospitalist service with GI to consult in addition to her desiring to consult in the a.m. which was done. She was then admitted to the general medical floor for ongoing care for stay that is expected to extend beyond 2 midnights. Hospital Course: 1. Choledocholithiasis status post stent placement/GERD?73-year-old female presents to the hospital with right upper quadrant abdominal pain as well as nausea and vomiting and bloating feeling. Imaging demonstrated a shrunken gallbladder with with a 7 mm common bile duct and multiple gallstones. She had an ERCP on 04/16/2024 that demonstrated choledocholithiasis, the ducts were swept and a stent was placed. She had significant improvement afterwards both in her symptoms as well as her lab work, total bilirubin decreased from 3 down to 0.7 and her LFTs have also been improving. She was able to tolerate a low-fat diet without any significant abdominal pain so general surgery felt to be safe to discharge and have her follow-up on Tuesday for outpatient cholecystectomy. I discussed with her the plan for discharge she expressed understanding risk-benefit of going home and would like to go home today. Since she does have a stent placed she does not need antibiotics, and she did not want any narcotics on discharge. She will need to follow-up with her PCP next week after her surgery and she will need to follow-up with gastroenterology as an outpatient 3 months to remove her stent. 2. Essential hypertension, hyperlipidemia, paroxysmal A-fib, hypothyroidism are all chronic medical conditions which complicate her care. Her home medications were continued where appropriate. She was instructed to not take her aspirin prior to surgery. Physical Exam Narrative General: Alert, Oriented x3, Cooperative, No apparent distress HEENT: Atraumatic, PERRLA, EOMI, Normocephalic Oral: Moist Mucosa Neck: Supple, No JVD Lungs: Clear to auscultation, Normal air movement, No rhonchi, No wheeze, No rales Cardiovascular: Regular rate, Regular Rhythm, Normal S1, Normal S2, No murmurs Abdomen: Soft, Non Tender, Non-Distended, No Hepato-splenomegaly Extremities: No edema, Capillary Refill Less than 3 Seconds Skin: No rashes, No breakdown Musculoskeletal: No Tenderness to Palpation of Joints or Extremities Neurological: No focal neurological deficits, Motor Exam 5/5 strength throughout, Sensory exam intact to light touch and pain Psych/Mental Status: Normal Affect, Appropriate Weight / BMI Weight Weight: 171 lb 8.314 oz Body Mass Index (BMI) 32.3 ABG / Lab / Microbiology Data 04/18/24 05:15 04/18/24 05:15 Laboratory: Laboratory Results - last 24 hr 04/18/24 05:15: WBC 7.2, RBC 3.79 L, Hgb 10.0 L, Hct 32.0 L, MCV 84.4, MCH 26.4 L, MCHC 31.3 L, RDW Std Deviation 46.3 H, RDW Coeff of Agnieszka 15.1 H, Plt Count 184, MPV 10.7, Immature Gran % (Auto) 0.300, Neut % (Auto) 62.7, Lymph % (Auto) 25.5, [place] % (Auto) 9.4, Eos % (Auto) 1.7, Baso % (Auto) 0.4, Absolute Neuts (auto) 4.5, Absolute Lymphs (auto) 1.84, Nucleated RBC % 0, Sodium 139, Potassium 3.5, Chloride 108 H, Carbon Dioxide 26.0, Anion Gap 5, BUN 13, Creatinine 0.59, Estim Creat Clear Calc 59.13, Est GFR (MDRD) Af Amer 127, Est GFR (MDRD) Non-Af 105, BUN/Creatinine Ratio 21.9 H, Glucose 121 H, Calcium 8.7, Total Bilirubin 0.70, AST 146 H, ALT 300 H, Alkaline Phosphatase 415 H, Total Protein 6.1 L, Albumin 2.7 L, Globulin 3.4, Albumin/Globulin Ratio 0.8 L D/C Instructions Discharge Diet: Low fat / Low cholesterol Call your doctor if you observe: Fever of 101 or Higher, Shortness of breath, Dizziness, Fainting spells, Swelling in the ankles, Chest pain and Increased palpitations (irregular heartbeat) Meaningful Use Info Meaningful Use Meaningful Use Diagnoses (Choose all that apply): None applicable Ischemic Stroke Statin Dosing Therapy Reference: STATIN DOSE THERAPY REFERENCE: * Patients > 75 years receive moderate or high dose statin therapy. * Patients 75 years or YOUNGER should receive HIGH intensity statin dose unless contraindicated. You will be required to document reason for non-treatment if statin daily dose does not meet guidelines. HIGH DOSE STATIN THERAPY DAILY Atorvastatin > than or = to 40 mg Rosuvastatin > than or = to 20 mg Amlodipine + Atorvastatin > than or = to 2.5/40 mg Ezetimibe + Simvastatin 10/80 mg Simvastatin 80mg Discharge Plan Admission Admit Date/Time: 04/15/24 20:02 Attending Provider: Charlie Saleem Primary Care Provider: Mikael Ramires Consulting Providers: Denton Morgan; Barry Johns Discharge Orders/Prescriptions Prescriptions: Continued metronidazole 0.75 % cream 1 applicatio TOPICAL DAILY 68 Days Qty: 135 Rx Instructions: FOR ROSACEA cholecalciferol (vitamin D3) 50 mcg (2,000 unit) capsule 2,000 unit PO DAILY mecobalamin (vitamin B12) 1,000 mcg tablet,disintegrating 1,000 mcg sublingual DAILY Rx Instructions: place tablet under tongue and allow to dissolve for at least30 secs before swallowing aspirin 81 mg tablet,chewable 81 mg PO DAILY Qty: 30 11RF levothyroxine 50 MCG tablet 50 mcg PO DAILY potassium chloride 20 mEq tablet,ER particles/crystals 20 meq PO DAILY omeprazole 40 mg capsule,delayed release(DR/EC) 40 mg PO DAILY acetaminophen 500 MG tablet 500 - 1,000 mg PO DAILY PRN PRN (Reason: Pain 1-10 Or Fever) atorvastatin 80 mg tablet 80 mg PO QHS hydrochlorothiazide 25 mg tablet 25 mg PO DAILY losartan 25 mg tablet 25 mg PO DAILY Qty: 90 3RF metoprolol tartrate 50 mg tablet 50 mg PO BID Qty: 180 3RF Referrals / Follow Up: Mikael Ramires DO [Primary Care Provider] - Within 1 Week FriendDenton DO [Med Staff - Active Staff] - 05/28/24 10:00 am Disposition Disposition (needs filled in before D/C Order can be placed): Home, Self Care Charges/Coding Visit Charges Inpatient E&M: 96796 Disch Hosp >30min
== END 2024-04-18 11:35 | disposition home or self-care (01) | DRG 446 ==
LOC: ED 19:42 → MS3 20:35
PROVIDERS: Anesthesiology; Internal Medicine Gastroenterology; Admitting Provider Internal Medicine; Emergency Provider Emergency Medicine; PCP Family Medicine; Visit Provider Family Medicine
PROC: 0FC98ZZ Extirpation of Matter from Common Bile Duct, Via Natural or Artificial Opening Endoscopic (ICD-10-PCS; CPT 43260; principal; 2024-04-16 15:40)
DX: K80.71 Calculus of gallbladder and bile duct without cholecystitis with obstruction (principal); D47.2 Monoclonal gammopathy; E03.9 Hypothyroidism, unspecified; E66.9 Obesity, unspecified; K21.9 Gastro-esophageal reflux disease without esophagitis; I10 Essential (primary) hypertension; I48.0 Paroxysmal atrial fibrillation; I25.10 Atherosclerotic heart disease of native coronary artery without angina pectoris; M19.012 Primary osteoarthritis, left shoulder; E78.5 Hyperlipidemia, unspecified; K58.9 Irritable bowel syndrome, unspecified; K31.7 Polyp of stomach and duodenum; K22.70 Barrett's esophagus without dysplasia; R74.8 Abnormal levels of other serum enzymes; Z23 Encounter for immunization; Z88.0 Allergy status to penicillin; Z68.32 Body mass index [BMI] 32.0-32.9, adult; Z79.82 Long term (current) use of aspirin; Z79.890 Hormone replacement therapy; Z95.5 Presence of coronary angioplasty implant and graft; Z86.16 Personal history of COVID-19
CPT/HCPCS: 36415; 74177; 74330; 76000; 76705; 80053; 80074; 81001; 83690; 83735; 84100; 84443; 85025; 85610; 85730; 90662; 93005; 94668; 99284; G0008; Q9967; A4216; J2405

== ENCOUNTER 2024-04-24 11:44 | Day surgery (SDC) | payer MEDICARE, SELFPAY ==
[2023-10-10 14:22] VITALS: BMI 38.3
[2024-04-24] VITALS (11 sets, daily range): BP systolic 100–147; BP diastolic 50–68; PULSE 69–95; RESP 14–18; TEMP 36.4–36.9; O2SAT 93–97; BMI 31.2
--- NOTE | 2024-04-24 | GALL_PTH ---
PATHOLOGY RESULTS PATIENT: CHELSEY TOLLIVER LOC: [facility] [place] U#:[id number] AGE/SX: 73/F ROOM: RE04/24/[address]: Dr. Opal Whitehead MD : [id number] BED: DIS: 04/24/2024 SPEC #: [id number] RECD: 04/25/24 09:37 STATUS: PORFIRIO REJim #: [id number] LESLEY: 04/24/24 00:[address]: Opal Whitehead DEPT: SURGICAL PATHOLOGY RECD BY: Pablo Stewart ENTERED: 04/25/24 09:37 SP TYPE: GEOVANNA WORTHINGTON DR: Dr. Mikael Ramires DO Tissues: Gallbladder, NOS Procedures: Surgery Specimen Level III HEADER OPERATION: Laparoscopic, cholecystectomy with IOC PRE-OP DIAGNOSIS: Elevated liver enzymes, cholelithiasis, choledocholithiasis TISSUE SUBMITTED: Gallbladder MICROSCOPIC DIAGNOSIS Gallbladder, cholecystectomy: Acute and chronic cholecystitis and cholelithiasis. SJ. 04/26/2024 MICROSCOPIC DESCRIPTION Slides are reviewed. GROSS DESCRIPTION Received is one container labeled with the patient's name and designated gallbladder. The specimen consists of a gallbladder measuring 8.0 cm in length and up to 3.5 cm in diameter. The external surface is pink-sage, smooth and glistening for the most part. Focally it is granular, hemorrhagic and contains cautery artifact. The gallbladder contains brown mucoid bile and five variable sized brown stones measuring in aggregate 1.5 x 1.5 x 0.5 cm and 0.5 to 0.6cm in greatest dimension. The mucosa is bile-stained and without any mass lesions. The gallbladder wall measures up to 0.5 cm in thickness. Increased amount of subserosal fat is noted. Evaluation Engineer sections from the gallbladder and the cystic duct are submitted in one cassette. / SJ: 04/25/2024 TC:2 CPT: 31551
--- NOTE | 2024-04-24 12:11 | PCM.HP.BLA ---
History and Physical Date of Admission: 04/24/24 04/17/24 1237 MR#: [id number] Acct: [id number] Name: CHELSEY TOLLIVER : 1950 [address] Opal Whitehead MD on 04/17/24 at 1509 Addendum Patient seen and examined and agree with the Therese Best's note. Patient tolerated lunch with no issues. Will plan for outpatient laparoscopic cholecystectomy. Reviewed the anatomy with the patient and discussed the procedure: laparoscopic cholecystectomy with possible cholangiograms, possible open. Review risks including but not limited to bleeding, infection, hernia, bile leak, retained gallstones requiring another procedure ERCP- Endoscopic Retrograde Cholangiopancreatography, injury to another organ (bile ducts, common bile duct, small bowel, etc.) and conversion to an open procedure. All questions were answered. Opal Whitehead M.D. Pager: [phone] [facility] [address] [place] [address], [address] [place] [address] Office: [phone] 04/17/24 0323<Electronically signed by Opal Whitehead MD> Signed Assessment & Plan Assessment/Plan (1) Elevated liver enzymes: (2) Cholelithiasis: QUALIFIERS: Cholelithiasis location: gallbladder Cholecystitis presence: without cholecystitis Biliary obstruction: with biliary obstruction Qualified Code(s): K80.21 - Calculus of gallbladder without cholecystitis with obstruction (3) Choledocholithiasis: PLAN: Plan I have been consulted in conjunction with Dr. Whitehead. She will independently evaluated this patient. Patient presents with a single episode of right upper quadrant pain caused by choledocholithiasis. Patient had an ERCP with stent placement yesterday. Patient's RUQ u/s does demonstrate gallstones within the gallbladder. Patient notes her pain has resolved at the time of this evaluation. Medicine will trial patient with a regular cardiac diet. If this does not cause symptoms, patient will be discharged to home. If her diet were to cause continued symptoms and pain, Dr. Whitehead will plan to perform a cholecystectomy. It has been reviewed with the patient that if she were discharged today, Dr. Whitehead will plan to perform a laparoscopic cholecystectomy with intraoperative cholangiogram as an outpatient. Patient is scheduled for Wednesday, April 24, [address] Whitehead. Procedure details, risks and benefits have been explained. A surgical book and wash along with post-operative instructions were provided to the patient. Patient has had the opportunity to ask and have questions answered. Patient will hold her aspirin 1 week prior to the procedure. Patient verbally understands agrees with the plan. Thank you for allowing us to participate in this patient's care. 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 Patient notes having [place] food, grilled chicken and vegetables, on . She noted that night she felt bloated. She had nausea and ended up vomiting to feel better. She notes eating light on Tuesday and Tuesday. She notes on Tuesday the abdominal pain became more present and she decided to come to the ED. Patient notes she has never had any issues with her gallbladder previously. She notes her previous abdominal surgical history includes a single . She notes a history of a myocardial infarction in 2018. She had [address] Warner at that time. She notes only blood thinner is aspirin. 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 She notes recently having cataract surgery on April 09 and March 26 2024. She notes a history of asthma for which she has not had to use an inhaler for. She notes a history of ulcerative colitis at the age of 15. She has not had any further flare-ups. She notes her last colonoscopy was a while ago, unsure of the date. RUQ u/s demonstrated cholelithiasis. CBD measures 7mm. No pericholecystic fluid, negative Redding's sign. Normal distended gallbladder. Liver enzymes elevated with T. Bili at 3, AST 423, ALT 618, Alk Phos [address] Morgan performed an ERCP with stent placement on 04/16/24 which showed short-segment Davidson's disease multiple gastric polyps, Choledocholithiasis was encountered and removal was complete with one stent placed. [facility] Medical History COVID-19 (~06/2021) History of [place] (myocardial infarction) History of coronary artery disease Essential hypertension Monoclonal gammopathy of unknown significance (MGUS) Monoclonal gammopathy Temporal arteritis Osteoarthritis of left shoulder Asthma HLD (hyperlipidemia) HTN (hypertension) Atherosclerotic heart disease of [place] coronary artery without angina pectoris Acute ST elevation myocardial infarction GERD (gastroesophageal reflux disease) Hypothyroidism M?ni?re's disease Retinal tear of left eye Ulnar neuropathy Polyclonal gammopathy GERD (gastroesophageal reflux disease) IBS (irritable bowel syndrome) Vitamin D deficiency Osteopenia Incontinence Knee pain PVC's (premature ventricular contractions) SOB (shortness of breath) Arthritis Home Medications ?Medication ?Instructions ?Recorded ?Last Taken ?Type levothyroxine 50 mcg tablet 50 mcg PO DAILY Thyroid 12/31/16 04/15/24 History metronidazole 0.75 % topical cream 1 applicatio topical DAILY rosacea 07/03/18 04/15/24 History 68 days #135 grams acetaminophen 500 mg tablet 500 - 1,000 mg PO DAILY PRN PRN 08/06/20 08/01/20 History Pain 1-10 Or Fever potassium chloride 20 mEq 20 meq PO DAILY supplement 09/22/20 08/08/21 History tablet,extended release(part/cryst) omeprazole 40 mg capsule,delayed 40 mg PO DAILY gerd 08/05/21 04/15/24 History release atorvastatin 80 mg tablet 80 mg PO QHS cholesterol 08/08/21 04/14/24 History hydrochlorothiazide 25 mg tablet 25 mg PO DAILY diuretic 08/28/21 04/15/24 History cholecalciferol (vitamin D3) 50 2,000 unit PO DAILY SUPPLEMENT 04/05/22 04/13/24 History mcg (2,000 unit) capsule losartan 25 mg tablet 25 mg PO DAILY blood pressure #90 07/06/23 04/15/24 Rx tabs metoprolol tartrate 50 mg tablet 50 mg PO BID this is a dose 09/28/23 04/14/24 Rx increase #180 tabs mecobalamin (vitamin B12) 1,000 1,000 mcg sublingual DAILY 10/26/23 04/13/24 History mcg disintegrating supplement tablet,sublingual aspirin 81 mg chewable tablet 81 mg PO DAILY #30 tabs 12/21/23 04/13/24 Rx Allergy/AdvReac Type Severity Reaction Status Date / Time clarithromycin (From Biaxin) Allergy Rash Verified 04/15/24 15:00 sulfamethoxazole (From Allergy Rash Verified 04/15/24 15:00 Bactrim) trimethoprim (From Bactrim) Allergy Rash Verified 04/15/24 15:00 carvedilol (From Coreg) AdvReac Intermediate Nausea, Verified 04/15/24 15:00 Lightheaded codeine AdvReac Upset Verified 04/15/24 15:00 Stomach lisinopril AdvReac cough Verified 04/15/24 15:00 Penicillins AdvReac Other Verified 04/15/24 15:00 Family History Mother Cancer skin AnemiaFather Cancer Heart disease Surgical History History of temporal artery biopsy (~12/2018) History of delivery Stented coronary artery (06/20/18) History of dilatation and curettage Hx of breast biopsy Hx of tonsillectomy Social History Smoking Status: Never smoker alcohol intake: never substance use type: does not use caffeine: No ROS Constitutional Constitutional: Reports systems reviewed and no addt'l complaints, except as documented Eyes Eyes: Reports systems reviewed and no addt'l complaints, except as documented ENT HEENT: Reports systems reviewed and no addt'l complaints, except as documented Cardiovascular Cardiovascular: Reports systems reviewed and no addt'l complaints, except as documented Respiratory/Chest Respiratory/Chest: Reports systems reviewed and no addt'l complaints, except as documented Gastrointestinal Gastrointestinal: Reports systems reviewed and no addt'l complaints, except as documented Genitourinary Genitourinary: Reports systems reviewed and no addt'l complaints, except as documented Musculoskeletal Musculoskeletal: Reports systems reviewed and no addt'l complaints, except as documented Integumentary Integumentary: Reports systems reviewed and no addt'l complaints, except as documented Neurologic Neurologic: Reports systems reviewed and no addt'l complaints, except as documented Psychiatric Psychiatric: Reports systems reviewed and no addt'l complaints, except as documented Endocrine Endocrinology: Reports systems reviewed and no addt'l complaints, except as documented Hematologic/Lymphatic Hematologic/Lymphatic: Reports systems reviewed and no addt'l complaints, except as documented Allergic/Immunologic Allergic/Immunologic: Reports systems reviewed and no addt'l complaints, except as documented Physical Exam Const alert, oriented x3 and no apparent distress HEENT normocephalic and head/scalp atraumatic Eyes PERRL Neck full ROM Lymph Lymphatic: no lymphadenopathy noted Resp normal respiratory effort and clear to auscultation bilaterally Cardio regular rate and regular rhythm GI normal to inspection, nondistended, normoactive bowel sounds no CVA tenderness Back/Spine no CVA tenderness Extremity normal to inspection Skin no rashes or lesions noted Neuro no focal motor deficits and no sensory deficits noted Psych mental status grossly normal and thought process normal Lab / Micro Data 04/17/24 06:03 04/17/24 06:03 Labs: Laboratory Results - last 24 hr 04/16/24 06:04: Hepatitis A IgM Ab Negative, Hep Bs Antigen Negative, Hep B Core IgM Ab Negative, Hepatitis C Ab (EIA) Non Reactive, Hep C Ab Comment Comment 04/17/24 06:03: WBC 5.9, RBC 3.68 L, Hgb 9.8 L, Hct 30.9 L, MCV 84.0, MCH 26.6 L, MCHC 31.7 L, RDW Std Deviation 45.9 H, RDW Coeff of Agnieszka 15.1 H, Plt Count 173, MPV 11.3, Immature Gran % (Auto) 0.300, Neut % (Auto) 73.1 H, Lymph % (Auto) 13.1 L, [place] % (Auto) 12.2 H, Eos % (Auto) 1.0, Baso % (Auto) 0.3, Absolute Neuts (auto) 4.3, Absolute Lymphs (auto) 0.77 L, Nucleated RBC % 0, Sodium 137, Potassium 3.5, Chloride 107, Carbon Dioxide 25.0, Anion Gap 5, BUN 13, Creatinine 0.61, Estim Creat Clear Calc 57.54, Est GFR (MDRD) Af Amer 123, Est GFR (MDRD) Non-Af 102, BUN/Creatinine Ratio 21.3 H, Glucose 104, Calcium 8.8, Phosphorus 2.9, Magnesium 1.9, Total Bilirubin 1.30 H, AST 254 H, ALT 415 H, Alkaline Phosphatase 467 H, Total Protein 6.0 L, Albumin 2.6 L, Globulin 3.4, Albumin/Globulin Ratio 0.8 L Imaging Radiology Impression Endo Retro Cholangiopancreatogram 04/16/24 16:45 IMPRESSION: Static fluoroscopy images. Electronically Signed: Joselin Soria MD at 1:51 EDT , 04/17/24 1324 <Electronically signed by Therese XIAO PA-C>
--- NOTE | 2024-04-24 12:15 | RAD_ITS ---
INDICATION: LAP ROXI EXAMINATION/TECHNIQUE: Cine intraoperative views are presented for evaluation. Total Fluoroscopic Time: 9 seconds Radiation dosage index: 3.42 mGy COMPARISON: No relevant prior comparison study available FINDINGS: The common bile duct was opacified. Filling defects are seen in the common bile duct concerning for retained stones. Air bubbles cannot be excluded. Slightly prominent common bile duct. There is free passage into the duodenum. RAD/Cholangiogram/ O R,Initial IMPRESSION: Filling defects in the common bile duct concerning for retained stones although air bubbles are possible. Electronically Signed: Nathan Segal MD at 14:14 EDT ,
[2024-04-24] MEDS: Lactated Ringers 1,000 ML 15 ML IV (12:20)
--- NOTE | 2024-04-24 12:24 | PCM.PRE.AN2 ---
ASA Classification* ASA Classification ASA Classification: 3 Assessment & Plan Anesthesia* Anesthesia Assessment Anesthesia Assessment: Discussed sedation and/or anesthesia options, risks, benefits, and alternatives with patient/parents/legal guardian/POA. Questions invited. The patient/parents/legal guardian/POA seems to understand and agrees to proceed with anesthesia plan. Reviewed the physical assessment, medical history, allergy history and patient home medications list prior to surgery/procedure/anesthetic and documented any changes. Performed airway and anesthesia risk assessments. Anesthesia Type Anesthesia Type: General (SEE WRITTEN PRE ANESTHESIA RECORD FOR FULL ASSESSMENT) Anesthesia Focused Assessment* Airway Assessment Mouth opens: >3 cm Mallampati Score: III Focused Labs Anesthesia Preop lab: CBC WBC 7.2 K/mm3 (4.4-11.0) 04/18/24 05:15 RBC 3.79 M/mm3 (4.2-5.4) L 04/18/24 05:15 Hgb 10.0 g/dL (12.0-15.0) L 04/18/24 05:15 Hct 32.0 % (37-47) L 04/18/24 05:15 Plt Count 184 K/mm3 (150-450) 04/18/24 05:15 CHEMISTRY Potassium 3.5 mmol/L (3.5-5.1) 04/18/24 05:15 Sodium 139 mmol/L (136-145) 04/18/24 05:15 Magnesium 1.9 mg/dL (1.6-2.6) 04/17/24 06:03 Phosphorus 2.9 mg/dL (2.5-4.9) 04/17/24 06:03 BUN 13 mg/dL (7-18) 04/18/24 05:15 Creatinine 0.59 mg/dL (0.55-1.02) 04/18/24 05:15 Glucose 121 mg/dL (74-106) H 04/18/24 05:15 POC Glucose 117 mg/dL (70-110) H 06/21/18 06:54 TSH 1.060 uIU/mL (0.358-3.740) 04/16/24 06:04 COAG PT 13.9 SECONDS (11.7-14.9) 04/16/24 06:04 Pre-Assessment Diagnosis/Proposed Procedure Planned Operative Procedure(s): Laparoscopic, Cholecystectomy with IOC Anesthesia History 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 When Was Last Pacemaker Check QUESTION #4 FULL TEXT: You/Your Family Experience fever (hyperthermia) with Anesthesia Last Oral Intake Last Oral intake: Last Oral Intake NPO since Meds taken in AM with sips of water? Meds patient instructed to take am of surgery PONV PONV - telephone sex worker: PONV - telephone sex worker Female Yes 04/20/24 08:23 HX of Motion Sickness Yes 04/20/24 08:23 HX of N/V After Surgery Yes 04/20/24 08:23 Non-Smoker Yes 04/20/24 08:23 Duration of Surgery greater Yes 04/20/24 08:23 than 60 minutes Number of Risk Factors 5 04/20/24 08:23 PONV Score Severe Risk 04/20/24 08:23 Height & Weight Height & Weight: Anesthesia: Height & Weight Height 5 ft 1 in 04/17/24 02:19 Respiratory Assessment Respiratory Assessment - telephone sex worker: Respiratory Tract Infection Hx - telephone sex worker Hx Respiratory Tract Infection No 04/20/24 08:23 STOP Sleep Apnea STOP Sleep Apnea - telephone sex worker: STOP Sleep Apnea - telephone sex worker Hx Hypertension Yes: controlled with med 04/20/24 08:23 Hx Sleep Apnea No 04/20/24 08:23 CPAP No 04/20/24 08:23 BIPAP Do you snore loudly (louder No 04/20/24 08:23 than talking or can be heard Do you often feel tired/ No 04/20/24 08:23 fatigued/ sleepy during daytime? Has anyone observed you stop No 04/20/24 08:23 breathing during sleep? STOP Results Negative 04/20/24 08:23 QUESTION #5 FULL TEXT : Do you snore loudly (louder than talking or can be heard through closed doors)? Tobacco Use History Tobacco Use History - telephone sex worker: Tobacco Use History - telephone sex worker Tobacco Use Smoking Status Never smoker 04/20/24 08:23 Hx Tobacco Use No 04/20/24 08:23 Years Smoking Packs Smoked per Day Smoking Cessation Date was within the last 15 years Hx Smoking Cessation Date Hx Smoking Cessation Counseling Hematologic Medial History Hematologic Hx - telephone sex worker: Hematologic Medical Hx - global project manager Hx of Blood Transfusion No 04/20/24 08:23 Hx of Transfusion in last 3 No 04/20/24 08:23 Months Date of Last Transfusion (if within last 3 months) Ever experience any problems No 04/20/24 08:23 with transfusion(s)? Specify any problems Hx of Preganancy in last 3 N/A 04/20/24 08:23 Months Nurse Filling Out Transfusion NBUCHER 04/20/24 08:23 & Questions: Date: 04/20/24 04/20/24 08:23 Time: 0804/20/24 08:23 Patient unable to answer at this time (ie. confused, unrespo /Reproduction History /Reproductive History - telephone sex worker: /Reproductive Hx- telephone sex worker Hx Now No 04/20/24 08:23 Gestational Age (in weeks): EDC: Hx Hx Para Hx Section SAB No 04/20/24 08:23 Active Medications Active Medications: Current Medications Generic Name Dose Route Start Last Admin Trade Name Freq PRN Reason Stop Dose Admin Ciprofloxacin 400 mg in 200 mls @ 200 mls/hr 04/24/24 13:15 Cipro IV 04/24/24 14:14 PREOP ONE Metronidazole 500 mg in 100 mls @ 100 mls/hr 04/24/24 13:15 Flagyl IV 04/24/24 14:14 PREOP ONE Lactated Ringer's 1,000 mls @ 15 mls/hr 04/24/24 12:00 IV 04/27/24 06:39 .Q48H [facility] Protocol PFSH Medical History Wears glasses Post-menopausal Thyroid disease Rheumatoid arthritis Ambulates with cane Polymyalgia rheumatica High cholesterol Giant cell arteritis Ulcerative colitis Non-smoker History of atrial fibrillation History of echocardiogram History of stress test Cardiology follow-up encounter Hypertension CAD (coronary artery disease) COVID-19 (~06/2021) History of [place] (myocardial infarction) History of coronary artery disease Essential hypertension Monoclonal gammopathy of unknown significance (MGUS) Monoclonal gammopathy Temporal arteritis Osteoarthritis of left shoulder Asthma HLD (hyperlipidemia) HTN (hypertension) Atherosclerotic heart disease of [place] coronary artery without angina pectoris Acute ST elevation myocardial infarction GERD (gastroesophageal reflux disease) Hypothyroidism M?ni?re's disease Retinal tear of left eye Ulnar neuropathy Polyclonal gammopathy GERD (gastroesophageal reflux disease) IBS (irritable bowel syndrome) Vitamin D deficiency Osteopenia Incontinence Knee pain PVC's (premature ventricular contractions) SOB (shortness of breath) Arthritis Home Medications ?Medication ?Instructions ?Recorded ?Last Taken ?Type levothyroxine 50 mcg tablet 50 mcg PO DAILY Thyroid 12/31/16 04/15/24 History metronidazole 0.75 % topical cream 1 applicatio topical DAILY rosacea 07/03/18 04/15/24 History 68 days #135 grams acetaminophen 500 mg tablet 500 - 1,000 mg PO DAILY PRN PRN 08/06/20 08/01/20 History Pain 1-10 Or Fever potassium chloride 20 mEq 20 meq PO DAILY supplement 09/22/20 08/08/21 History tablet,extended release(part/cryst) omeprazole 40 mg capsule,delayed 40 mg PO DAILY gerd 08/05/21 04/15/24 History release atorvastatin 80 mg tablet 80 mg PO QHS cholesterol 08/08/21 04/14/24 History hydrochlorothiazide 25 mg tablet 25 mg PO DAILY diuretic 08/28/21 04/15/24 History cholecalciferol (vitamin D3) 50 2,000 unit PO DAILY SUPPLEMENT 04/05/22 04/13/24 History mcg (2,000 unit) capsule losartan 25 mg tablet 25 mg PO DAILY blood pressure #90 07/06/23 04/15/24 Rx tabs metoprolol tartrate 50 mg tablet 50 mg PO BID this is a dose 09/28/23 04/14/24 Rx increase #180 tabs mecobalamin (vitamin B12) 1,000 1,000 mcg sublingual DAILY 10/26/23 04/13/24 History mcg disintegrating supplement tablet,sublingual aspirin 81 mg chewable tablet 81 mg PO DAILY #30 tabs 12/21/23 04/13/24 Rx Allergy/AdvReac Type Severity Reaction Status Date / Time clarithromycin (From Biaxin) Allergy Rash Verified 04/20/24 08:19 sulfamethoxazole (From Allergy Rash Verified 04/20/24 08:19 Bactrim) trimethoprim (From Bactrim) Allergy Rash Verified 04/20/24 08:19 carvedilol (From Coreg) AdvReac Intermediate Nausea, Verified 04/20/24 08:19 Lightheaded codeine AdvReac Upset Verified 04/20/24 08:39 Stomach lisinopril AdvReac cough Verified 04/20/24 08:19 Penicillins AdvReac Other Verified 04/20/24 08:19 Family History Mother Cancer skin Anemia Father Cancer Heart disease Surgical History History of cataract extraction with lens replacement History of coronary artery stent placement History of cardiac catheterization History of ERCP History of temporal artery biopsy (~12/2018) History of delivery Stented coronary artery (06/20/18) History of dilatation and curettage Hx of breast biopsy Hx of tonsillectomy Social History Smoking Status: Never smoker alcohol intake: never substance use type: does not use caffeine: No Review of Systems (Anesthesia) ROS Narrative System reviewed and no additional complaints, except as documented.
[2024-04-24] MEDS: metroNIDAZOLE 500 MG/100 ML BAG 100 MG IV (12:25)
[2024-04-24] MEDS: Ciprofloxacin 400 MG/200 ML BAG 200 MG IV (12:52)
[2024-04-24] MEDS: Bupivacaine Mpf 0.5% 30 ML VIAL (13:52)
--- NOTE | 2024-04-24 13:55 | PCM.OPRPT ---
Operative Report (Standard) Operative Information Surgery/Procedure Performed: Laparoscopic cholecystectomy with cholangiograms Surgeon: Opal Whitehead Date of Procedure: 04/24/24 Procedure Start Time: 13:19 Procedure Stop Time: 14:03 Pre-Operative Diagnosis: Cholelithiasis, history of choledocholithiasis status post ERCP Post-Operative Diagnosis: Same Select all DRAINS/GRAFTS/IMPLANTS that apply: None Type of Anesthesia: General/Supplemental Special Medications: Cipro 400 mg IV x 1, Flagyl 500 mg grams IV x 1 Estimated Blood Loss: 10 cc Fluids Replaced: 400 cc Specimen collected: Yes Description of specimen(s) removed: Gallbladder Description of surgery: Indications: this is a 73 year-old female who developed abdominal pain/nausea/vomiting and on workup was found to have cholelithiasis, choledocholithiasis status post ERCP last week. Laparoscopic cholecystectomy was elected. Description procedure: The patient was placed on operating table in supine position. A timeout was completed verifying correct patient, procedure, site, position and special equipment prior to beginning procedure. General Anesthesia was induced. The abdomen was prepped and draped in usual sterile fashion. An incision was made in the natural skin line above the umbilicus. The fascia was elevated and incised. The peritoneum was elevated and incised. Entry into the peritoneum was confirmed visually and no bowel was noted in the vicinity of the incision. Gold trocar was placed. The abdomen was insufflated with carbon dioxide to a pressure of 12-15 mmHg. Patient tolerated insufflation well. The laparoscope was then inserted and abdomen inspected. No injuries from initial trocar placement were noted. Additional trochars were then inserted in the following locations 5 mm trocar in the epigastrium and 2 more 5 mm trochars along the right costal margin. The abdomen was inspected no abnormalities were found. The table is placed in reverse Trendelenburg position with the right side up. The dome of the gallbladder was grasped with atraumatic grasper passed through the lateral port and retracted over the dome of the liver. Infundibulum was then grasped with atraumatic grasper through the midclavicular port and retracted to the right lower quadrant. This maneuver exposed Calot's triangle. The peritoneum overlying the gallbladder infundibulum was then incised and cystic duct and artery identified and circumferentially dissected. Galvan catheter was used for cholangiograms. The cholangiogram showed good filling of the common bile duct into the duodenum with no filling defects with a CBD stent in place, good filling of the right and left bile ducts as well. The cystic duct and artery were then doubly clipped and divided close to the gallbladder. The gallbladder then dissected from its peritoneal attachments by electrocautery. Hemostasis was checked and the gallbladder and contained stones were removed using the endoscopic retrieval bag through the umbilical port. The gallbladder is passed off table as specimen. The gallbladder fossa was irrigated with saline and hemostasis obtained. There is no evidence of bleeding from the gallbladder fossa or cystic artery leakage of bile from the cystic duct stump. Secondary trochars removed under direct vision. No bleeding was noted the trocar sites. The laparoscope was withdrawn and umbilical trocar removed. The abdomen was allowed to collapse. The fascia of the 12 mm trocar was closed with a [id number] 0 Vicryl suture. The skin was closed with sutures of 4-0 Monocryl and Steri-Strips. The patient was extubated. The patient tolerated procedure well and was taken to the postanesthesia care unit in stable condition. Surgical Findings: Normal cholangiograms Tenoner Operator rehab director occupational therapist: Yes Pattern Marker: Maye Mitchell Tasks completed by commercial real estate assistant: Opening & closing and Retracting Complications Complications: No
--- NOTE | 2024-04-24 13:58 | DCINST_ITS ---
Discharge Instructions Diet Discharge Diet: Light diet - advance as tolerated Activity Discharge Activity: May Not Drive (while taking narcotic pain medications.) May shower in (days): 1 Lifting Restrictions: no lifting >20 lbs x 2 wks, no strenuous exercise for 4 wks Dressing / Incision Call your doctor if your incision/area has: Continuous Slow Oozing, Sudden Increased Bleeding, Increased Pain/ Swelling, Increased Redness, Foul Smelling Discharge and Swelling at the incision site Call your doctor if you observe: Fever of 101 or Higher Remove Dressing in: 2 days Cleanse incision/area with: Soap & Water Additional Dressing/Incision Instructions:: Steri-Strips will fall off in 7 to 10 days, if they do not fall off okay to remove after 10 days. Follow Up Care Please Follow Up With: Opal Whitehead MD When: Call the office for a follow-up appointment 2 weeks; after 5 PM and on the weekends call [phone] with any concerns. Test Results: Test results from this visit will be discussed in further detail at your follow- up appointment, if applicable. Discharge Plan Admission Attending Provider: Opal Whitehead Primary Care Provider: Mikael Ramires Instructions Additional Instructions / Restrictions: Okay to take ibuprofen 400-600 mg PO q6hr PRN and Tylenol 650 mg p.o. every 6 hours as needed along with the tramadol Take all pain meds with food. Tramadol can cause constipation recommend taking daily stool softener (i.e. Colace/docusate) while taking the pain meds. Recommend starting some MiraLAX tomorrow if no bowel movement. If still no bowel movement the next day take additional MiraLAX and the following day recommend taking magnesium citrate half the bottle and waiting 4-6 hours if still no results take the other half the bottle. Print Language: Romanian Discharge Orders/Prescriptions Prescriptions: New tramadol 50 mg tablet 50 mg PO Q6H PRN (Reason: pain) Qty: 7 0RF Continued metronidazole 0.75 % cream 1 applicatio TOPICAL DAILY 68 Days Qty: 135 Rx Instructions: FOR ROSACEA cholecalciferol (vitamin D3) 50 mcg (2,000 unit) capsule 2,000 unit PO DAILY mecobalamin (vitamin B12) 1,000 mcg tablet,disintegrating 1,000 mcg sublingual DAILY Rx Instructions: place tablet under tongue and allow to dissolve for at least30 secs before swallowing levothyroxine 50 MCG tablet 50 mcg PO DAILY potassium chloride 20 mEq tablet,ER particles/crystals 20 meq PO DAILY omeprazole 40 mg capsule,delayed release(DR/EC) 40 mg PO DAILY acetaminophen 500 MG tablet 500 - 1,000 mg PO DAILY PRN PRN (Reason: Pain 1-10 Or Fever) atorvastatin 80 mg tablet 80 mg PO QHS hydrochlorothiazide 25 mg tablet 25 mg PO DAILY losartan 25 mg tablet 25 mg PO DAILY Qty: 90 3RF metoprolol tartrate 50 mg tablet 50 mg PO BID Qty: 180 3RF Held aspirin 81 mg tablet,chewable 81 mg PO DAILY Qty: 30 11RF Hold Instructions: Resume on 04/26/24. Referrals / Follow Up: Mikael Ramires DO [Primary Care Provider] - Disposition Disposition (needs filled in before D/C Order can be placed): Home, Self Care
--- NOTE | 2024-04-24 14:12 | PCM.POST.ANE ---
Anesthesia: Postop Eval I Current Vital Signs Temperature: 98.1 F Pulse Rate: 83 Blood Pressure: 142/68 Respiratory Rate: 18 Pulse Ox: 94 Oxygen Delivery Method: Room Air Assessment Airway patent: Yes Spontaneous unlabored respirations: Yes Mental status: Awake and Calm nausea: No Vomiting: No Anesthesia Complication: No Fluid Hydration Crystalloid volume administer (ml): 400 Total IV fluid infused: 400 Progress Note Anesthesia document: Postop Eval 1 completed: Yes
--- NOTE | 2024-04-24 14:44 | POSTOPAN2_ITS ---
Anesthesia Postop Eval I Sum Postop Eval Completion status Anesthesia document: Postop Eval 1 completed: Yes Anesthesia Postop Eval I Summary Anesthesia Postop Eval I Summary: Anesthesia Postop Eval I: Assessment Summary Airway patent Yes 04/24/24 14:13 CLINICAL [email or web address].[email or web address] Spontaneous unlabored Yes 04/24/24 14:13 CLINICAL [email or web address].[email or web address] respirations Mental status Awake,Calm 04/24/24 14:13 CLINICAL INVESTIGATOR.[email or web address] nausea No 04/24/24 14:13 CLINICAL INVESTIGATOR.[email or web address] Vomiting No 04/24/24 14:13 CLINICAL INVESTIGATOR.[email or web address] Anesthesia Postop Eval I: Fluid Summary Crystalloid volume administer 400 04/24/24 14:13 CLINICAL [email or web address].[email or web address] (ml) Colloids volume administered ( ml) Blood Product volume administered (ml) Total IV fluid infused 400 04/24/24 14:13 CLINICAL INVESTIGATOR.[email or web address] Anesthesia Postop Eval I: Summary Notes Anesthesia Complication No 04/24/24 14:13 CLINICAL [email or web address].[email or web address] Anesthesia Complication Comment: Post-operative progress note Anesthesia: Postop Eval II Evaluation Mental status: Awake Pain Level: 0 nausea: No Vomiting: No
--- NOTE | 2024-04-24 14:44 | PCM.POSTANE2 ---
Anesthesia Postop Eval I Sum Postop Eval Completion status Anesthesia document: Postop Eval 1 completed: Yes Anesthesia Postop Eval I Summary Anesthesia Postop Eval I Summary: Anesthesia Postop Eval I: Assessment Summary Airway patent Yes 04/24/24 14:13 GLOBAL LOGISTICS ANALYST.[email or web address] Spontaneous unlabored Yes 04/24/24 14:13 GLOBAL LOGISTICS ANALYST.SCHR respirations Mental status Awake,Calm 04/24/24 14:13 GLOBAL LOGISTICS ANALYST.SCHR nausea No 04/24/24 14:13 GLOBAL LOGISTICS ANALYST.SCHR Vomiting No 04/24/24 14:13 GLOBAL LOGISTICS ANALYST.SCHR Anesthesia Postop Eval I: Fluid Summary Crystalloid volume administer 400 04/24/24 14:13 GLOBAL LOGISTICS ANALYST.SCHR (ml) Colloids volume administered ( ml) Blood Product volume administered (ml) Total IV fluid infused 400 04/24/24 14:13 GLOBAL LOGISTICS ANALYST.SCHR Anesthesia Postop Eval I: Summary Notes Anesthesia Complication No 04/24/24 14:13 GLOBAL LOGISTICS ANALYST.SCHR Anesthesia Complication Comment: Post-operative progress note Anesthesia: Postop Eval II Evaluation Mental status: Awake Pain Level: 0 nausea: No Vomiting: No
[2024-04-24] MEDS: traMADol 50 MG Tablet PO (16:35)
--- OUTSIDE RECORDS SUMMARY | 2024-04-24 16:56 | XMS RPT_ITS | CCD ---
Author Organization [facility] Care Team Providers Care Flow Floor Attendant Name Role Phone Lata Wesley Unavailable ELMIRA MONTERROSO Admitting Unavailable ELMIRA MONTERROSO Attending Unavailable ELMIRA MONTERROSO Primary Care Unavailable SANCHEZ HELTON Attending KANIKA So Primary Care Unavailable Kanika Ramires DO Primary Care Provider Allergies Allergy Classification Reported Allergen(s) Allergy Type Date of Onset Reaction(s) Facility (2 sources) clarithromycin Drug Allergy 01-30-20 14 Rash, unknown [facility] Work Phone: (3 sources) codeine; Translations: [CODEINE] Drug Allergy 07-25-19 07 [facility] Work Phone: (2 sources) codeine Drug Allergy 01-30-20 14 Skin turned red, nauseas, hot skin, unknown [facility] Work Phone: (2 sources) iodine Drug Allergy 01-30-20 14 Couldn't breathe, unknown [facility] Work Phone: (1 source) penicillin Drug Allergy 01-30-20 14 [facility] Work Phone: (2 sources) penicillin g Drug Allergy 01-30-20 14 Passed out, unknown [facility] Work Phone: (2 sources) pseudoephedrine Drug Allergy 01-30-20 14 unknown, Rash [facility] Work Phone: (3 sources) sulfamethoxazole / trimethoprim; Translations: [BACTRIM] Drug Allergy 01-30-20 14 Rash, unknown [facility] Work Phone: (1 source) IODINE DYE drug allergy 01-30-20 14 [facility] Work Phone: (1 source) ZEPHEREX drug allergy 01-30-20 14 [facility] Work Phone: (1 source) BIOXIN drug allergy 01-30-20 14 [facility] Work Phone: (2 sources) Clarithromycin; Translations: [CLARITHROMYCIN] Drug Allergy 07-25-19 07 [facility] Repository (1 source) Penicillin; Translations: [PENICILLIN G] Drug Allergy 09-29-19 22 [facility] Repository (2 sources) Sulfamethoxazole / Trimethoprim; Translations: [SULFAMETHOXAZOLE-T RIMETHOPRIM] Drug Allergy 07-25-19 07 [facility] Repository (1 source) Contrast media Propensity to adverse reactions 07-25-19 07 Anaphylaxis [facility] Work Phone: (1 source) guaiFENesin / Pseudoephedrine Drug Allergy 07-25-19 07 Rash [facility] Work Phone: (1 source) Lisinopril Drug Allergy 02-24-20 19 Cough [facility] (1 source) Penicillins Propensity to adverse reactions 07-25-19 07 [facility] Work Phone: Medications Completed/Discontinued Medications Medication Drug Class(es) Dates Sig (Normalized) Sig (Original) albuterol 0.83 mg/ml inhalant solution (3 sources) beta2-Adrenergic Agonist Start: 10-02-2015 ALBUTEROL SULFATE (2.5 MG/3ML) 0.083% NEBU 1 ampule per day as needed ALBUTEROL SULFATE [id number] Kanika A [facility] DO Start: 10-02-2015 VENTOLIN HFA 1 08 (90 Base) MCG/ACT AERS 2 puffs every 6 hours as needed ALBUTEROL SULFATE [id number] Kanika Ramires DO Start: 07-25-2006 take 1 puff(s) by in halation once daily as needed for wheezing ALBUTEROL 90 MCG/ACTUATION AEROSOL INHALER Inhale one(1) - two(2) puffs four(4) times a day as needed for wheezing and shortness of breath. 0 07/25/2006 Active Comment on above: Inhale one(1) - two( 2) puffs four(4) times a day as needed for wheezing and shortness of breath. aspirin 81 mg delayed release oral tablet (1 source) Platelet Aggregation Inhibitor, Nonsteroidal Anti-inflammatory Drug take 1 tablet by mouth once daily aspirin, enteric coated (ASPIRIN, ENTERIC COATED) 81 mg EC tablet Take 81 mg by mouth once daily. 0 Active Comment on above: Take 81 mg by mouth once daily. atorvastatin 80 mg oral tablet (1 source) HMG-CoA Reductase Inhibitor take 1 tablet by mouth once daily atorvastatin (LIPITOR) 80 mg tablet Take 80 mg by mouth once daily. 0 Active Comment on above: Take 80 mg by mouth once daily. betamethasone 0.5 mg/ml / clotrimazole 10 mg/ml topical cream (1 source) Azole Antifungal, Corticosteroid Start : 08-28 clotrimazole-betamethaso ne (LOTRISONE) cream Indications: Vulvar dermatitis Apply 1 application to affected area twice daily. 15 g 2 08/28/2020 Active Comment on above: Apply 1 application to affected area twice daily. carvedilol 3.125 mg oral tablet (1 source) alpha-Adrenergic Leopoldo, beta-Adrenergic Leopoldo take 1 tablet by mouth twice daily at mealtime carvedilol (COREG) 3.125 mg tablet Take 3.125 mg by mouth twice daily with meals. 0 Active Comment on above: Take 3.125 mg by lana twice daily with meals. cholecalciferol 0.05 mg oral capsule (1 source) Vitamin D Cholecalciferol, Vitamin D3, (VITAMIN D-3) 50 mcg (2,000 unit) cap Take 1 capsule by mouth. 0 Active Comment on above: Take 1 capsule by mo [facility]. clopidogrel 75 mg oral tablet (1 source) P2Y12 Platelet Inhibitor take 1 tablet by mouth once daily clopidogrel (PLAVIX) 75 mg tablet Take 75 mg by mouth once daily. 0 Active Comment on above: Take 75 mg by mouth once daily. 24 hr dilTIAZem hydrochloride 120 mg extended release oral capsule (1 source) Calcium Channel Leopoldo take 1 capsule by mouth once daily, then take 1 capsule by mouth every twenty-four hours dilTIAZem CR (TIAZAC, TAZTIA XT) 120 mg 24 hr capsule Take 120 mg by mouth once daily. 0 Active Comment on above: Take 120 mg by mouth once daily. ergocalciferol 96605 unt oral tablet (2 sources) Provitamin D2 Compound End: 10-01 take 1 tablet by mouth every week VITAMIN D (ERGOCALCIFEROL) 00204 UNIT CAPS One tablet by mouth weekly ERGOCALCIFEROL [id number] Lizbeth Washburn LPN Flaxseed Oil oil (1 source) Flaxseed Oil oil 1 tablet once daily. 0 Active Comment on above: 1 tablet once daily. hydroCHLOROthiazide 25 mg oral tablet (5 sources) Thiazide Diuretic Start : 10-01 take 0.5 tablet by mouth once daily HYDROCHLOROTHIAZIDE 25 MG TABS 1/2 tablet by mouth daily HYDROCHLOROTHIAZIDE [id number] Kanika Patinoutzman Start: 01-29-2014 HYDROCHLOROTHI AZIDE TABS as directed HYDROCHLOROTHIAZIDE TABS [id number] Louisa Bell take 1 tablet by lana th once daily hydroCHLOROthiazide (HYDRODIURIL, ESIDRIX) 12.5 mg tablet Take 12.5 mg by mouth once daily. 0 Active End: 10-02-2015 take 1 tablet by mouth once daily HYDROCHLOROTHIAZIDE 25 MG TABS One half tablet by mouth daily HYDROCHLOROTHIAZIDE [id number] Lizbeth Washburn LPN Comment on above: Take 12.5 mg by mout h once daily. ibuprofen 200 mg oral tablet (1 source) Nonsteroidal Anti-inflammatory Drug Start: 10-02-19 16 take 1 tablet by mouth once daily as needed IBUPROFEN 200 MG TABS One tablet by mouth daily as needed IBUPROFEN [id number] Kanika Hubert [facility] levoFLOXacin 500 mg oral tablet (1 source) Quinolone Antimicrobial Start: 08-19-19 16 End: 08-22-19 16 take 1 tablet by mouth once daily LEVAQUIN 500 MG TABS one tablet PO QD L[facility]OXAC[facility] [id number] [facility] potassium 25 mg oral tablet (1 source) Angiotensin 2 Receptor Leopoldo losartan (COZAAR) 25 mg tablet Take 12.5 mg by mouth once daily. 0 Active Comment on above: Take 12.5 mg by mout h once daily. meclizine hydrochloride 25 mg oral tablet (4 sources) Antiemetic Start: 07-25-19 take 1 tablet by mouth once daily as needed MECLIZINE HCL 25 MG TABS One tablet by mouth daily as needed MECLIZINE HCL [id number] Kanika Hubert PatinoKeyla DO End: 10-02-2015 MECLIZINE HCL 25 MG TABS One tablet by mouth every 6-8 hours as needed MECLIZINE HCL [id number] Lizbeth Washburn LPN Comment on above: PRN metroNIDAZOLE 7.5 mg/ml topical cream (4 sources) Nitroimidazole Antimicrobial Start: 10-02-2015 METRONIDAZOLE 0.75 % CREA Apply as needed METRONIDAZOLE [id number] Kanika Hubert Ramires DO Start: 07-25-2006 METROGEL 1 % T OPICAL End: 10-02-2015 METRONIDAZOLE 0.75 % CREA Ap ply to the affected area(s) twice daily as needed. METRONIDAZOLE [id number] Lizbeth Washburn LPN montelukast 10 mg oral tablet (1 source) Leukotriene Receptor Antagonist Start: 07-25-2006 SINGULAIR 10 MG TAB Take one(1) tablet daily at bedtime. 0 07/25/2006 Active Comment on above: Take one(1) tablet d aily at bedtime. omeprazole 20 mg delayed release oral capsule (6 sources) Proton Pump Inhibitor Start: 10-02-2015 End: 10-02-2015 take 2 capsules by mouth once daily OMEPRAZOLE 20 MG CPDR 2 capsules by mouth daily OMEPRAZOLE [id number] Kanika Hubert Keyla DO Start: 01-29-2014 take 1 capsule by [facility] once daily OMEPRAZOLE 20 MG CPDR 1 capsule by mouth daily OMEPRAZOLE 12885014283 Kanika A Keyla DO take 1 capsule by [facility] once daily Omeprazole 40 mg capsule Take 40 mg by mouth once daily. 0 Active Comment on above: Take 40 mg by mouth once daily. pantoprazole 40 mg delayed release oral tablet (1 source) Proton Pump Inhibitor Start: 7 PROTONIX 40 MG TAB Take one(1) tablet daily. 0 07/25/2006 Active Comment on above: Take one(1) tablet d aily. potassium (1 source) Start: 4 POTASSIMIN TABS as directed POTASSIUM TABS 15514533611 Louisa Bell potassium chloride 20 meq oral tablet (4 sources) Start: 6 take 1 tablet by mouth once daily KLOR-CON 20 MEQ PACK One tablet by mouth daily POTASSIUM CHLORIDE [id number] Kanika Ramires DO take 2 tablets by mo [facility] once daily potassium chloride (K-TAB) 10 mEq tablet Take 20 mEq by mouth once daily. 0 Active End: 10-02-2015 take 1 tablet by mouth once daily KLOR-CON M20 20 MEQ CR-TABS One tablet by mouth daily POTASSIUM CHLORIDE LUIS E CR 63529236885 Kanika Ramires DO take 1 tablet by [facility] once daily KLOR-CON M20 20 MEQ CR-TABS One tablet by mouth daily POTASSIUM CHLORIDE LUIS E CR 13212136431 Lizbeth Washburn LPN Comment on above: Take 20 mEq by mouth once daily. predniSONE 5 mg oral tablet (1 source) take 7.5 mg by mouth once daily predniSONE (DELTASONE) 5 mg tablet Take 7.5 mg by mouth once daily. 0 Active Comment on above: Take 7.5 mg by mouth once daily. 24 hr propranolol hydrochloride 60 mg extended release oral capsule (4 sources) beta-Adrenergic Leopoldo Start: 6 take 1 capsule by mouth once daily PROPRANOLOL HCL ER 60 MG [id number] 1 capsule by mouth daily PROPRANOLOL HCL 10144680890 Kanika Ramires DO Start: 07-25-2006 INDERAL LA 60 MG 24 HR CAP once daily 0 07/25/2006 Active End: 10-02-2015 take 1 tablet by mouth once daily PROPRANOLOL HCL ER 80 MG [id number] One tablet by mouth daily PROPRANOLOL HCL [id number] Lizbeth Washburn LPN Comment on above: once daily propylene glycol/peg 400 (SYSTANE LIQUID GEL OPHTHALMIC) (1 source) propylene glycol /peg 400 (SYSTANE LIQUID GEL OPHTHALMIC) Use 1 Drop in eyes. 0 Active Comment on above: Use 1 Drop in eyes. propylene glycol/peg 400 (SYSTANE ULTRA OPHTHALMIC) (1 source) take 1 drop(s) into the eye(s) once daily propylene glycol/peg 400 (SYSTANE ULTRA OPHTHALMIC) Use 1 Drop in eyes once daily. 0 Active Comment on above: Use 1 Drop in eyes o nce daily. levothyroxine sodium 0.05 mg oral tablet (5 sources) l-Thyroxine Start: 4 End: 6 take 1 tablet by mouth once daily LEVOTHYROXINE SODIUM 50 MCG TABS One tablet by mouth daily LEVOTHYROXINE SODIUM [id number] Kanika Hubert Ramires Comment on above: Take 50 mcg by mouth daily before breakfast. Problems Active Problems Problem Classification Problem Date [...] Results Test Name Value Interpretation Reference Range Facility [facility] 11-20-2021 Anion gap [Moles/Vol] 5 mmol/L Normal -16 [facility] Comment on above: Order Comment: Campu s: M Performed By: #### L 500.03503, L500.75935 #### [facility] [place] [address] Calcium [Mass/Vol] 9.7 mg/dL Normal 8.5-10.5 [facility] Comment on above: Order Comment: Campu s: M Result Comment: NOTE NEW NORMAL RANGE DUE TO REAGENT CHANGE Performed By: #### L 500.56509, L500.72288 #### [facility] [address] [place] [address] Chloride [Moles/Vol] 107 mmol/L Normal 98-107 [facility] Comment on above: Order Comment: Campu s: M Performed By: #### L 500.32474, L500.55130 #### [facility] [address] [place] [address] CO2 [Moles/Vol] 26.0 mmol/L Normal 21-32 [facility] Comment on above: Order Comment: Campu s: M Performed By: #### L 500.18103, L500.94952 #### [facility] [address] [place] [address] Creatinine [Mass/Vol] 0.66 mg/dL Normal 0.510-0.950 [facility] Comment on above: Order Comment: Campu s: M Result Comment: Emma ents receiving either N-Acetylcysteine (NAC) or Metamizole prior to venipuncture, may have falsely depressed results. Performed By: #### L 500.83090, L500.17232 #### [facility] [address] [place] [address] Glucose [Mass/Vol] 112 mg/dL High 70-100 [facility] Comment on above: Order Comment: Campu s: M Result Comment: 70-1 00- Normal Fasting; 100-125 Impaired Fasting; greater than 126 on more than one result- Diabetes. ADA guidelines. Results may be falsely elevated after the administration of Sulfapyridine. Results may be falsely depressed after the administration of Sulfasalazine. Performed By: #### L 500.65101, L500.90333 #### [facility] [address] [place] [address] Potassium [Moles/Vol] 3.5 mmol/L Normal 3.5-5.1 [facility] Comment on above: Order Comment: Campu s: M Performed By: #### L 500.83457, L500.98240 #### [facility] [address] [place] [address] Sodium [Moles/Vol] 138 mmol/L Normal 136-145 [facility] Comment on above: Order Comment: Campu s: M Performed By: #### L 500.96569, L500.28681 #### [facility] [address] [place] [address] Urea nitrogen [Mass/Vol] 18 mg/dL Normal 7-26 [facility] Comment on above: Order Comment: Campu s: M Performed By: #### L 500.56788, L500.12551 #### [facility] [address] [place], [place] [id number] Urea nitrogen/Creatinine [Mass ratio] 27 mg/mg High 15-24 [facility] Comment on above: Order Comment: Campu s: M Performed By: #### L 500.76606, L500.31912 #### [facility] [address] [place] [address] CBCon 11-20-2021 Erythrocyte distribution width (RBC) [Ratio] 15.5 % High 11-14.5 [facility] Comment on above: Order Comment: Campu s: M Performed By: #### L 200.62067 #### [facility] [address] [place], [place] [id number] Hematocrit (Bld) [Volume fraction] 36.3 % Normal 35.0-47.0 [facility] Comment on above: Order Comment: Campu s: M Performed By: #### L 200.28068 #### [facility] [address] [place], [place] [id number] Hemoglobin (Bld) [Mass/Vol] 11.8 g/dL Normal 11.5-15.5 [facility] Comment on above: Order Comment: Campu s: M Performed By: #### L 200.35116 #### [facility] [address] [place] [address] MCHC (RBC) [Mass/Vol] 32.5 g/dL Normal 32.0-36.0 [facility] Comment on above: Order Comment: Campu s: M Performed By: #### L 200.02524 #### [facility] [address] [place] [address] MCV (RBC) [Entitic vol] 90.5 fL Normal 80.0-99.0 [facility] Comment on above: Order Comment: Campu s: M Performed By: #### L 200.76739 #### [facility] [address] [place] [address] Nucleated RBC/100 WBC (Bld) [Ratio] 0.0 % Normal Less than 1 [facility] Comment on above: Order Comment: Campu s: M Performed By: #### L 200.99603 #### [facility] [address] [place] [address] Platelet mean volume (Bld) [Entitic vol] 9.4 fL Normal 9.4-12.4 [facility] Comment on above: Order Comment: Campu s: M Performed By: #### L 200.55742 #### [facility] [address] [place] [address] PLT 230 K/CU MM Normal 150-450 [facility] Comment on above: Order Comment: Campu s: M Performed By: #### L 200.36673 #### [facility] [address] [place] [address] RBC 4.01 M/CU MM Normal 3.90-5.30 [facility] Comment on above: Order Comment: Campu s: M Performed By: #### L 200.16417 #### [facility] [address] [place] [address] WBC 14.6 K/CUMM High 4.5-11.0 [facility] Comment on above: Order Comment: Campu s: M Performed By: #### L 200.19236 #### [facility] [address] [place] [address] EKGon 11-20-2021 Electrocardiogram Procedure Date and Time: 11/20/21917 Test Reason : URGENT Blood Pressure : / mmHG Vent. Rate : 056 BPM Atrial Rate : 056 BPM P-R Int : 160 ms QRS Dur : 078 ms QT Int : 418 ms P-R-T Axes : 007 -03 020 degrees QTc Int : 403 ms Sinus bradycardia Low voltage QRS Borderline ECG No previous ECGs available Confirmed by LESLIE TORRES A. ([id number]) on 11/20/2021 2:15:00 PM Referred By: Layla Holm Confirmed By:Benito TORRES M.D.FACC Jeffrey DDandT: 11/20/21917 TDandT: [facility] PATIENT NAME: CHINA BELTRAN Dr. MEDICAL REC #: [id number] [place] [address] ADMIT DATE: DISCHARGE DATE: ATTENDING PHY: Layla Holm MD ELECTROCARDIOGRAM REPORT CLB cc: [facility] PATIENT NAME: OCTAVIOCHERYLCLAYTON[address]INA Dr[address]W. MEDICAL REC #: [id number] [place] [address] ADMIT DATE: DISCHARGE DATE: ATTENDING PHY: Layla Holm MD ELECTROCARDIOGRAM REPORT Normal [facility] GFR ESTon 11-20-2021 IF AMER Greater than 60 Normal [facility] Comment on above: Order Comment: Campu s: M Performed By: #### L 500.44609, L500.79446 #### [facility] [address] [place] [address] IF non-AFR AMER Greater than 60 Normal [facility] Comment on above: Order Comment: Campu s: M Performed By: #### L 500.41519, L500.05489 #### [facility] [address] [place] [address] PTon 11-20-2021 INR Coag (PPP) [Relative time] 1.01 {INR} Normal 0.9-1.1 [facility] Comment on above: Order Comment: Campu s: M Result Comment: Bob mmended PT INR therapeutic range for assisted and prophylactic therapy is 2.0 - 3.0. For heart valve and shunt patients the range is 2.5 - 3.5. Performed By: #### L 300.85024 #### [facility] [address] [place] [address] PTS 11.0 SECONDS Normal 9.5-12.0 [facility] Comment on above: Order Comment: Campu s: M Performed By: #### L 300.21234 #### [facility] [address] [place] [address] XR CHEST PA/APon 09-28-2021 XR CHEST PA/AP EXAMINATION: XR CHEST PA/AP 09/28/2021 3:37 pm HISTORY: ORDERING SYSTEM PROVIDED HISTORY: vomiting, TECHNOLOGIST PROVIDED HISTORY: Illness/Other Reason for exam: vomitting, near syncope Cancer History: no Surgery, RadiationHistory: no Encounter Type: Initial Additional signs and symptoms: hx of afib COMPARISON: None. FINDINGS: AP portable view of the chest. Lungs are clear of focal consolidation. No pleural effusion or pneumothorax. Normal cardiomediastinal silhouette. No pulmonary vascular congestion. No acute osseous or soft tissue abnormalities. IMPRESSION: No acute cardiopulmonary process. Workstation ID: [id number] Dictated by: ANA MO on TueSep 28, 2021 3:44:04 PM EDT Transcribed by: ANA MO on TueSep 28, 2021 3:44:04 PM EDT Finalized by: ANA MO on TueSep 28, 2021 3:44:04 PM EDT [facility] Comment on above: Order Comment: Injur y/Trauma or Illness?:Illness/Other How long have you had these symptoms (acute/chronic)?:Acute Reason for exam?:vomitting, near syncope History of cancer?:no Surgeries, chemotherapy, or radiation?:no Type of Exam?:Initial Additional signs and symptoms?:hx of afib Juvenal 09-02-2020 TRUDY Telephone (OBGYWM) CHINA BELTRAN ([id number]) 1950 F Date Time Provider Department 09/02/20 BRISA BRANDON) OBGYWM During your visit today, we recorded the following information about you: Brisa Brandon APRN.CNP 09/02/2020 7:13 AM Signed Please notify pt - The vaginal culture showed no abnormal bacteria or yeast. GWYN Nicholson RN 09/02/2020 8:36 AM Signed Patient notified. Layla Sewell RN Allergies As of Date: 09/02/2020 Noted Allergy Reaction BACTRIM (SULFAMETHOXAZOLE-TRIM ETH*07/25/2006 Comments: rash and increased heart rate BIAXIN (CLARITHROMYCIN) 07/25/2006 Comments: rash and increased heart rate CODEINE 07/25/2006 Comments: flushed and nausea and vomiting IODINE DYE (CONTRAST DYE) 07/25/2006 10 - Anaphylaxis LISINOPRIL 02/23/2019 3 - Cough PENICILLINS 07/25/2006 Comments: fainting ZEPHREX LA (PSEUDOEPHEDRINE-GUAIF *07/25/2006 2 - Rash Date Reviewed: 08/28/2020 Reviewed by: [facility] - Fully Assessed Reason for Visit: Results [95] Prescriptions as of 09/02/2020 Sig: SYSTANE ULTRA OPHTHALMIC Use 1 Drop in eyes once daily. SYSTANE LIQUID GEL OPHTHALMIC Use 1 Drop in eyes. DILTIAZEM CR 120 MG CAP Take 120 mg by mouth once philip* FLAXSEED OIL 1 tablet once daily. CHOLECALCIFEROL (VITAMIN D3) * Take 1 capsule by mouth. CLOTRIMAZOLE-BETAMETHA SONE 1 * Apply 1 application to affect* OMEPRAZOLE 40 MG CAPSULE,ANDRIA* Take 40 mg by mouth once adriana* LEVOTHYROXINE 50 MCG TABLET Take 50 mcg by mouth daily be* CARVEDILOL 3.125 MG TABLET Take 3.125 mg by mouth twice * CLOPIDOGREL 75 MG TABLET Take 75 mg by mouth once adriana* LOSARTAN 25 MG TABLET Take 12.5 mg by mouth once da* PREDNISONE 5 MG TABLET Take 7.5 mg by mouth once philip* ASPIRIN 81 MG TABLET,DELAYED * Take 81 mg by mouth once adriana* HYDROCHLOROTHIAZIDE 12.5 MG T* Take 12.5 mg by mouth once da* POTASSIUM CHLORIDE ER 10 MEQ * Take 20 mEq by mouth once philip* ATORVASTATIN 80 MG TABLET Take 80 mg by mouth once adriana* INDERAL LA 60 MG CAPSULE,EXTE* once daily PROTONIX 40 MG TABLET,DELAYED* Take one(1) tablet daily. SINGULAIR 10 MG TABLET Take one(1) tablet daily at b* METROGEL 1 % TOPICAL ALBUTEROL 90 MCG/ACTUATION AE* Inhale one(1) - two(2) puffs * ANTIVERT 25 MG TABLET PRN Problem List As Of Date: 09/02/2020 (None) Encounter Status:Closed by LAYLA SEWELL RN on 09/02/20 [facility] Bact/Cand Vag Grm Ston 08-29 Bact/Cand Vag Grm St Sp. Request/Comment : - Swab Smear Result - BACTERIAL VAGINOSIS RESULT: Stain results consistent with normal vaginal jerrod. No Yeast observed Few Polymorphonuclear leukocytes Normal [facility] Comment on above: Performed By: #### [facility] #### [facility] [address] [place], [place] [address] CNOVon 08-28-2020 CNOV Office Visit (OBGYWM ) CHINA BELTRAN ([id number]) 1950 F Date Time Provider Department 08/28/20 1:30 PM BRISA BRANDON (MICKI) OBGYWM During your visit today, we recorded the following information about you: Blood pressure Weight Height 127/72 91.2 kg 1.524 m Brisa Brandon APRN.MICKI 08/28/2020 3:35 PM Signed China Beltran is a 70 year old [...] of Date: 08/28/2020 Allergen Noted Reaction BACTRIM [SULFAMETHOXAZOLE-TRIM ETH*07/25/2006 BIAXIN [CLARITHROMYCIN] 07/25/2006 CODEINE 07/25/2006 IODINE DYE [CONTRAST DYE] 07/25/2006 Anaphylaxis LISINOPRIL 02/23/2019 Cough PENICILLINS 07/25/2006 ZEPHREX LA [PSEUDOEPHEDRINE-GUAIF *07/25/2006 Rash Fully Assessed 08/28/2020 REVIEW OF SYSTEMS [...] external genitalia normal, normal Bartholin's glands, urethra, Whiting's glands, no vulvar lesions, no cervical lesions, physiologic discharge present, normal appearing perineal body and perianal region, atrophy. Vulva and perineum with moderate erythema. No lesions or plaques. BIMANUAL: uterus normal size, shape and consistency, no adnexal masses and non-tender NEURO: alert and oriented x3,exam grossly non-focal ASSESSMENT/PLAN: 1. Vulvar dermatitis - ICD9: 692.9, ICD10: L30.9 - B (more content not included)... Normal [facility] Prot Electrophoresis Serumon 12-21-2018 Albumin [Mass/Vol] 3.4 g/dL Normal 2.9-4.4 [facility] Comment on above: Order Comment: [facility] Performed at: - [facility] [address] [place] [id number] Consumer Analyst: Corky Damon PhD, Phone: [phone] Performed By: #### S PEP #### [facility] RESULTS Albumin/Globulin [Mass ratio] 1.2 {ratio} Normal 0.7-1.7 [facility] Comment on above: Order Comment: nhc Performed at: [place] [address] Consumer Analyst: Corky Damon PhD, Phone: [phone] Performed By: #### S PEP #### [facility] RESULTS Rpywa-3-Vebigcff 0.3 g/dL Normal 0.0-0.4 [facility] Comment on above: Order Comment: nhc Performed at: [place] [address] Consumer Analyst: Corky Damon PhD, Phone: [phone] Performed By: #### S PEP #### [facility] RESULTS Njfns-7-Kxpxarae 0.9 g/dL Normal 0.4-1.0 [facility] Comment on above: Order Comment: nhc Performed at: [place] [address] Consumer Analyst: Corky Damon PhD, Phone: [phone] Performed By: #### S PEP #### [facility] RESULTS Beta Globulin 0.8 g/dL Normal 0.7-1.3 [facility] Comment on above: Order Comment: nhc Performed at: [place] [address] Consumer Analyst: Corky Damon PhD, Phone: [phone] Performed By: #### S PEP #### [facility] RESULTS Gamma Globulin 0.8 g/dL Normal 0.4-1.8 [facility] Comment on above: Order Comment: nhc Performed at: [place] [address] Consumer Analyst: Corky Damon PhD, Phone: [phone] Performed By: #### S PEP #### [facility] RESULTS Globulin (S) [Mass/Vol] 2.8 g/dL Normal 2.2-3.9 [facility] Comment on above: Order Comment: nhc Performed at: [place] [address] Consumer Analyst: Corky Damon PhD, Phone: [phone] Performed By: #### S PEP #### [facility] RESULTS M-Thien Not Observed Normal Not Observed [facility] Comment on above: Order Comment: nhc Performed at: [place] [address] Consumer Analyst: Corky Damon PhD, Phone: [phone] Performed By: #### S PEP #### [facility] RESULTS PDF . [facility] Comment on above: Order Comment: nhc Performed at: [place] [address] Consumer Analyst: Corky Damon PhD, Phone: [phone] Performed By: #### S PEP #### [facility] RESULTS Please note: Comment [facility] Comment on above: Order Comment: nhc Performed at: [place] [address] Consumer Analyst: Corky Damon PhD, Phone: [phone] Result Comment: Prot ein electrophoresis scan will follow via computer, mail, or associate professor of theatre delivery. Performed By: #### S PEP #### [facility] RESULTS Protein [Mass/Vol] 6.2 g/dL Normal 6.0-8.5 [facility] Comment on above: Order Comment: nhc Performed at: [place] [address] Consumer Analyst: Corky Damon PhD, Phone: [phone] Performed By: #### S PEP #### [facility] RESULTS C-Reactive Proteinon 019 CRP [Mass/Vol] mg/L Normal <=2.99 [facility] Comment on above: Order Comment: nhc Performed By: #### C MP, CRPR #### [facility] [address] [place] [address] CBC with Diffon 12-19-2018 Basophils (Bld) [#/Vol] 0.0 x(10)3/cumm Normal 0.0-0.1 [facility] Comment on above: Order Comment: nhc Performed By: #### C BCDIFF #### [facility] [address] [place] [address]57 Basophils/100 WBC (Bld) 0.4 % Normal 0.0-1.0 [facility] Comment on above: Order Comment: nhc Performed By: #### C BCDIFF #### [facility] [address] [place] [address] 28705 Eosinophils (Bld) [#/Vol] 0.0 x(10)3/cumm Normal 0.0-0.4 [facility] Comment on above: Order Comment: nhc Performed By: #### C BCDIFF #### [facility] [address] [place] [address] 19541 Eosinophils/100 WBC (Bld) 0.2 % Normal 0.0-6.1 [facility] Comment on above: Order Comment: nhc Performed By: #### C BCDIFF #### [facility] [address] [place] [address]85 Erythrocyte distribution width (RBC) [Ratio] 17.0 % High 11.1-15.3 [facility] Comment on above: Order Comment: nhc Performed By: #### C BCDIFF #### [facility] [address] [place] [address]39 Hematocrit (Bld) [Volume fraction] 39.9 % Normal 34.6-45.0 [facility] Comment on above: Order Comment: nhc Performed By: #### C BCDIFF #### [facility] [address] [place] [address]57 Hemoglobin (Bld) [Mass/Vol] 13.0 g/dL Normal 11.5-15.5 [facility] Comment on above: Order Comment: nhc Performed By: #### C BCDIFF #### [facility] [address] [place] [address] 47296 Lymphocytes (Bld) [#/Vol] 1.4 x(10)3/cumm Normal 0.8-2.9 [facility] Comment on above: Order Comment: nhc Performed By: #### C BCDIFF #### [facility] [address] [place] [address] 57358 Lymphocytes/100 WBC (Bld) 11.9 % Low 12.2-42.6 [facility] Comment on above: Order Comment: nhc Performed By: #### C BCJENARO #### [facility] [address] [place] [address] 07901 MCH (RBC) [Entitic mass] 28.5 pg Normal 27.2-33.6 [facility] Comment on above: Order Comment: nhc Performed By: #### C BCJENARO #### [facility] [address] [place] [address]8320 MCHC (RBC) [Mass/Vol] 32.7 g/dL Low 32.9-35.3 [facility] Comment on above: Order Comment: nhc Performed By: #### C BCJENARO #### [facility] [address] [place] [address]22 MCV (RBC) [Entitic vol] 87.2 fL Normal 81.3-96.7 [facility] Comment on above: Order Comment: nhc Performed By: #### C BCJENARO #### [facility] [address] [place] [address] 94024 Monocytes (Bld) [#/Vol] 0.5 x(10)3/cumm Normal 0.2-0.8 [facility] Comment on above: Order Comment: nhc Performed By: #### C BCJENARO #### [facility] [address] [place] [address] 46866 Monocytes/100 WBC (Bld) 3.8 % Normal 3.3-11.6 [facility] Comment on above: Order Comment: nhc Performed By: #### C BCDIANTIONETTE #### [facility] [address] [place] [address]223 Neutrophils (Bld) [#/Vol] 10.0 x(10)3/cumm High 1.3-7.4 [facility] Comment on above: Order Comment: nhc Performed By: #### C BCDIANTIONETTE #### [facility] [address] [place] [address] 92607 Neutrophils/100 WBC (Bld) 83.7 % High 44.9-78.8 [facility] Comment on above: Order Comment: nhc Performed By: #### C BCDIFF #### [facility] [address] [place], [place] [phone] Platelet mean volume (Bld) [Entitic vol] 7.9 fL Normal 6.4-10.0 [facility] Comment on above: Order Comment: nhc Performed By: #### C BCDIFF #### [facility] [address] [place], [place] [phone] Platelets (Bld) [#/Vol] 177 x(10)3/cumm Normal 138-367 [facility] Comment on above: Order Comment: nhc Performed By: #### C BCDIFF #### [facility] [address] [place], [place] [phone] Plt Morph normal Normal [facility] Comment on above: Order Comment: nhc Performed By: #### C BCDIFF #### [facility] [address] [place], [place] [phone] RBC (Bld) [#/Vol] 4.57 X(10)6/cumm Normal 3.90-5.[address] [facility] Comment on above: Order Comment: nhc Performed By: #### C BCDIFF #### [facility] [address] [place], [place] [phone] RBC Morph cont Normal [facility] Comment on above: Order Comment: nhc Performed By: #### C BCDIFF #### [facility] [address] [place], [place] [phone] RBC morphology finding Nom (Bld) mild aniso, mild hypo Normal [facility] Comment on above: Order Comment: nhc Performed By: #### C BCDIFF #### [facility] [address] [place], [place] [phone] WBC (Bld) [#/Vol] 12.0 x(10)3/cumm High 3.6-10.[address] [facility] Comment on above: Order Comment: nhc Performed By: #### C BCDIFF #### [facility] [address] [place], [place] [address] WBC Morph less than 10% bands Normal [facility] Comment on above: Order Comment: nhc Performed By: #### C BCDIFF #### [facility] [address] [place] [address]21 Comprehensive Metabolic Pane jolly 12-19-2018 Albumin [Mass/Vol] 3.7 g/dL Normal 3.4-5.0 [facility] Comment on above: Order Comment: nhc Performed By: #### C ROSE, CRPR #### [facility] [address] [place] [address] 11281 ALP [Catalytic activity/Vol] 76 U/L Normal 45-117 [facility] Comment on above: Order Comment: nhc Performed By: #### C ROSE, CRPR #### [facility] [address] [place], [place] [phone] ALT [Catalytic activity/Vol] 49 U/L Normal 12-78 [facility] Comment on above: Order Comment: nhc Performed By: #### C ROSE, CRPR #### [facility] [address] [place], [place] [phone] Anion gap [Moles/Vol] 10 mmol/L Normal 5-10 [facility] Comment on above: Order Comment: nhc Performed By: #### C ROSE, CRPR #### [facility] [address] [place], [place] [phone] AST [Catalytic activity/Vol] 16 U/L Normal 15-37 [facility] Comment on above: Order Comment: nhc Performed By: #### Marbella ROSE, CRPR #### [facility] [address] [place] [address] 83042 Bili, Total 0.6 mg/dL Normal 0.2-1.0 [facility] Comment on above: Order Comment: nhc Performed By: #### C ROSE, CRPR #### [facility] [address] [place], [place] [phone] Calcium [Mass/Vol] 9.2 mg/dL Normal 8.5-10.1 [facility] Comment on above: Order Comment: nhc Performed By: #### Marbella ROSE, CRPR #### [facility] [address] [place] [address] 09864 Chloride [Moles/Vol] 105 mmol/L Normal 98-[address] [facility] Comment on above: Order Comment: nhc Performed By: #### C MP, CRPR #### [facility] [address] [place] [address] 52311 CO2 [Moles/Vol] 25 mmol/L Normal 21-32 [facility] Comment on above: Order Comment: nhc Performed By: #### C MP, CRPR #### [facility] [address] [place] [address] 81253 Creatinine [Mass/Vol] 0.72 mg/dL Normal 0.60-1.30 [facility] Comment on above: Order Comment: nhc Performed By: #### C MP, CRPR #### [facility] [address] [place] [address] 49021 eGFR -Amer >60 Normal >=60 [facility] Comment on above: Order Comment: nhc Performed By: #### C MP, CRPR #### [facility] [address] [place] [address] 43826 GFR/1.73 sq M predicted among non-blacks MDRD (S/P/Bld) [Vol rate/Area] mL/min/{1.73_m2} Normal >=60 [facility] Comment on above: Order Comment: nhc Performed By: #### C MP, CRPR #### [facility] [address] [place] [address] 34735 Glucose [Mass/Vol] 137 mg/dL High 74-106 [facility] Comment on above: Order Comment: nhc Performed By: #### C MP, CRPR #### [facility] [address] [place] [address] 38367 Potassium [Moles/Vol] 4.2 mmol/L Normal 3.5-5.1 [facility] Comment on above: Order Comment: nhc Performed By: #### C MP, CRPR #### [facility] [address] [place] [address] 66558 Prot Total 6.3 gm/dL Low 6.4-8.2 [facility] Comment on above: Order Comment: nhc Performed By: #### C ROSE, CRPR #### [facility] [address] [place], [place] [phone] Sodium [Moles/Vol] 140 mmol/L Normal 136-145 [facility] Comment on above: Order Comment: nhc Performed By: #### C ROSE, CRPR #### [facility] [address] [place], [place] [phone] Urea nitrogen [Mass/Vol] 20 mg/dL High 7-18 [facility] Comment on above: Order Comment: nhc Performed By: #### C ROSE, CRPR #### [place] [id number] Sed Rate - Westergrenon 06-2 Sed Rate 7 mm/hr Normal 0-20 [facility] Comment on above: Order Comment: nhc Performed By: #### E SR #### [facility] [address] [place], [place] [phone] Lab Report: Wyad-3-Ahnlhmjao Shady red 08-19-2016 B2 [id number] 1.6 mg/L Invalid Interpretation Code 0.6-2.4 [facility] Work Phone: Lab Report: Immunoglobulin A on 08-19-2016 IgA 95 mg/dL Invalid Interpretation Code 87-352 [facility] Work Phone: Lab Report: Immunoglobulin G on 08-19-2016 IgG 692 mg/dL Low 700-1600 [facility] Work Phone: Lab Report: Immunoglobulin M on 08-19-2016 IgM 720 mg/dL High 26-217 [facility] Work Phone: Lab Report: Protein Electro. Ur-Randomon 08-19-2016 NOTE Comment Invalid Interpretation Code . [facility] Work Phone: Protein [Mass] in Urine collected for unspecified duration 13.1 mg/dL Invalid Interpretation Code Not Estab. [facility] Work Phone: Lab Report: Protein Electrop h, Son 08-19-2016 INTERPRETATION Comment Invalid Interpretation Code . [facility] Work Phone: M-SPIKE . Invalid Interpretation Code [facility] Work Phone: NOTE: Comment Invalid Interpretation Code . [facility] Work Phone: Albumin 3.6 g/dL Invalid Interpretation Code 2.9-4.4 [facility] Work Phone: Albumin/Globulin Ratio 1.1 (?) Invalid Interpretation Code 0.7-1.7 [facility] Work Phone: ALPHA-1 GLOBUL 0.3 g/dL Invalid Interpretation Code 0.0-0.4 [facility] Work Phone: ALPHA-2 GLOBUL 0.8 g/dL Invalid Interpretation Code 0.4-1.0 [facility] Work Phone: BETA GLOBULIN 1.0 g/dL Invalid Interpretation Code 0.7-1.3 [facility] Work Phone: GAMMA GLOBULIN 1.1 g/dL Invalid Interpretation Code 0.4-1.8 [facility] Work Phone: Globulin 3.2 g/dL Invalid Interpretation Code 2.2-3.9 [facility] Work Phone: Protein 6.8 g/dL Invalid Interpretation Code 6.0-8.5 [facility] Work Phone: Lab Report: Vitamin D,25 Hyd roxyon 08-18-2016 Vitamin D 25-OH 24.3 ng/mL Invalid Interpretation Code [facility] Work Phone: Lab Report: Comprehensive Me tabolic Profilon 08-17-2016 Alanine aminotransferase (ALT) 22 U/L Invalid Interpretation Code 12-78 [facility] Work Phone: Albumin 3.9 g/dL Invalid Interpretation Code 3.4-5.0 [facility] Work Phone: Albumin/Globulin Ratio 1 {ratio} Invalid Interpretation Code 0.9-2.4 [facility] Work Phone: Alkaline phosphatase (ALP) 96 U/L Invalid Interpretation Code 45-117 [facility] Work Phone: Anion gap 10 mmol/L Invalid Interpretation Code 5-15 [facility] Work Phone: Aspartate aminotransferase (AST) 11 U/L Low 15-37 [facility] Work Phone: Bilirubin (total) 0.70 mg/dL Invalid Interpretation Code 0.20-1.00 [facility] Work Phone: BUN/Creatinine Ratio 15.1 RATIO Invalid Interpretation Code 10-20 [facility] Work Phone: Calcium 8.9 mg/dL Invalid Interpretation Code 8.5-10.1 [facility] Work Phone: Chloride 103 mmol/L Invalid Interpretation Code 98-107 [facility] Work Phone: CO2 26.0 mmol/L Invalid Interpretation Code 21.0-32.0 [facility] Work Phone: Creatinine 0.79 mg/dL Invalid Interpretation Code 0.55-1.02 [facility] Work Phone: eGFR (non-black) 93 mL/min/{1.73_m2} Invalid Interpretation Code >60 [facility] Work Phone: eGFR (non-black) 77 mL/min/{1.73_m2} Invalid Interpretation Code >60 [facility] Work Phone: Globulin 3.9 g/dL High 2.3-3.5 [facility] Work Phone: Glucose mass conc 106 mg/dL Invalid Interpretation Code 70-110 [facility] Work Phone: Potassium molar conc 3.6 mmol/L Invalid Interpretation Code 3.5-5.1 [facility] Work Phone: Protein 7.8 g/dL Invalid Interpretation Code 6.4-8.2 [facility] Work Phone: Sodium 139 mmol/L Invalid Interpretation Code 136-145 [facility] Work Phone: Urea nitrogen 12 mg/dL Invalid Interpretation Code 7-18 [facility] Work Phone: Lab Report: Thyroid Stim Hor jessica (TSH)on 08-17-2016 Thyroid stimulating hormone (TSH) 3.01 u[iU]/mL Invalid Interpretation Code 0.358-3.74 [facility] Work Phone: 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 * PHQ9 Completeon 08-17-2016 Adult depression screening assessment Adult depression screening assessment Invalid Interpretation Code [facility] Work Phone: Documentation of current medications (procedure) Done Invalid Interpretation Code [facility] Work Phone: Replaced Document: CBC W/Dif f, Auto - EPLAB Onlyon 08-17-2016 Absolute Neut 5.5 X10 3/UL Invalid Interpretation Code 2.0-7.7 [facility] Work Phone: Basophils/100 WBC Auto (Bld) 0.6 % Invalid Interpretation Code 0-1 [facility] Work Phone: Eosinophils/100 leukocytes 1.6 % Invalid Interpretation Code 0-5 [facility] Work Phone: Erythrocyte distribution width Auto Ratio (RBC) 13.3 % Invalid Interpretation Code 11.6-14.6 [facility] Work Phone: Erythrocytes (RBC) 4.88 10*6/uL Invalid Interpretation Code 4.2-5.4 [facility] Work Phone: Hematocrit (HCT) 43.6 % Invalid Interpretation Code 37-47 [facility] Work Phone: Hemoglobin mass conc (Bld) 14.1 g/dL Invalid Interpretation Code 12.0-15.0 [facility] Work Phone: Lymphocytes 2.36 X10 3/UL Invalid Interpretation Code 0.83-4.51 [facility] Work Phone: Lymphocytes/100 leukocytes 27.9 % Invalid Interpretation Code 19-41 [facility] Work Phone: MCH 28.8 pg Invalid Interpretation Code 27.0-32.0 [facility] Work Phone: MCHC mass conc (RBC) 32.3 g/dL Invalid Interpretation Code 32-36 [facility] Work Phone: MCV 89.3 fL Invalid Interpretation Code 81-99 [facility] Work Phone: Monocytes/100 leukocytes 5.4 % Invalid Interpretation Code 0-10 [facility] Work Phone: Neutrophils/100 WBC Auto (Bld) 64.5 % Invalid Interpretation Code 47-70 [facility] Work Phone: Platelets 207 10*3/mm3 Invalid Interpretation Code 150-450 [facility] Work Phone: PMV by Jillian 6.9 fL Invalid Interpretation Code 6.2-12.0 [facility] Work Phone: WBC (Leukocytes) 8.5 10*3/uL Invalid Interpretation Code 4.4-11.0 [facility] Work Phone: 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 Tobacco smoking status NHIS Never Invalid Interpretation Code [facility] Work Phone: Tobacco use CPHS Never smoker Invalid Interpretation Code [facility] Work Phone: Lab Report: VANESSA + Protein El ect, Serumon 11-20-2015 Albumin 3.6 g/dL Invalid Interpretation Code 3.2-5.6 [facility] Work Phone: Alpha 2 globulin 0.8 g/dL Invalid Interpretation Code 0.4-1.2 [facility] Work Phone: FWVYS-9-ZQBI 0.3 g/dL Invalid Interpretation Code 0.1-0.4 [facility] Work Phone: BETA GLOBULIN 1.0 g/dL Invalid Interpretation Code 0.6-1.3 [facility] Work Phone: Gamma globulin 1300 mg/dL Invalid Interpretation Code Units converted. See lab report for original value. [facility] Work Phone: M-SPIKE . Invalid Interpretation Code [facility] Work Phone: Lab Report: [place] Lambda Lig ht Chainson 11-20-2015 FR KAPPA LT CHN 1.741 mg/dL Invalid Interpretation Code Units converted. See lab report for original value. [facility] Work Phone: FR LAMBDA LT CH 1.599 mg/dL Invalid Interpretation Code Units converted. See lab report for original value. [facility] Work Phone: KAPPA/LAMBDA % 1.09 Invalid Interpretation Code 0.26-1.65 [facility] Work Phone: Lab Report: Erythrocyte Sed Rateon 08-19-2015 Erythrocyte sedimentation rate 40 mm/h High 0-30 [facility] Work Phone: Lab Report: LDHon 08-19-2015 LDH 163 U/L Invalid Interpretation Code 84-246 [facility] Work Phone: Lab Report: Uric Acidon 07-29 Urate 3.7 mg/dL Invalid Interpretation Code 2.6-6.0 [facility] Work Phone: Replaced Document: (P) ANCAo n 05-30-2015 Neutrophils . 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 05-27-2015 General categories [Interpretation] of Cervical or vaginal smear or scraping by Cyto stain Normal Invalid Interpretation Code [facility] Work Phone: Breast Mammogram screening Normal Bilateral Invalid Interpretation Code [facility] Work Phone: Lab Report: ANTINUCLEAR ANTI BODIES DIRECTon 05-14-2015 CORINNE Titer Negative Invalid Interpretation Code Negative [facility] Work Phone: Lab Report: CBC W/Diff, Auto - EPLAB Onlyon 05-06-2015 Pathologist (cervix/vaginal) May foll Invalid Interpretation Code [facility] Work Phone: 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 06-29-1999 Colonoscopy (procedure) Colonoscopy (procedure) Invalid Interpretation Code [facility] Work Phone: Vital Signs Date Time Vital Sign Value Performing Clinician Facility 08-17-2016 11:26-0500 BMI (Body Mass Index) 36.53 kg/m2 Lata Wesley [facility] Work Phone: 08-17-2016 11:26-0500 Body Temperature 97.5 [degF] Lata Wesley [facility] Work Phone: 08-17-2016 11:26-0500 BP Diastolic 75 mm[Hg] [facility] Work Phone: 08-17-2016 11:26-0500 BP Systolic 121 mm[Hg] [facility] Work Phone: 08-17-2016 11:26-0500 BSA (Body Surface Area) 1.94 m2 [facility] Work Phone: 08-17-2016 11:26-0500 Height 158.75 cm [facility] Work Phone: 08-17-2016 11:26-0500 Pulse (Heart Rate) 69 /min [facility] Work Phone: 08-17-2016 11:26-0500 Respiratory Rate 20 /min [facility] Work Phone: 08-17-2016 11:26-0500 Weight 92.08 kg [facility] Work Phone: 08-17-2016 11:26-0500 Weight 92.27 kg [facility] Work Phone: 05-06-2015 10:00-0500 Height 158.75 cm [facility] Work Phone: Encounters Encounter Date Encounter Type Care Provider Facility Start: 11-20-2021 End: 11-20-2021 Subsequent hospital visit by physician Layla Holm MD Work Phone: IF MARISOL WILLIS Comment on above: A-FIB Start: 09-28-2021 End: 09-28-2021 Emergency department patient visit SANCHEZ MCDOWELL DANIE [facility] Start: 12-19-2018 End: 12-20-2018 Patient encounter procedure [facility] Procedures Date Procedure Procedure Detail Performing Clinician Start: 11-20-2021 Ecg routine ecg w/le ast 12 lds i&r only Start: 08-17-2016 End: 08-17-2016 *CMP Complete Metabolic Panel Gopi Astorga DO Start: 08-17-2016 End: 08-19-2016 *SPEP (Serum Protein Electrophoresis) Gopi Astorga DO Start: 08-17-2016 End: 08-19-2016 *UPEP Gopi Astorga DO Start: 08-17-2016 End: 08-19-2016 [id number] [Mass/volume] in Serum or Plasma Gopi Astorga DO Start: 08-17-2016 End: 08-19-2016 IgA [Mass/volume] in Serum or Plasma Gopi Astorga DO Start: 08-17-2016 End: 08-19-2016 IgG [Mass/volume] in Serum or Plasma Gopi Astorga DO Start: 08-17-2016 End: 08-19-2016 IgM [Mass/volume] in Serum or Plasma Gopi Astorga DO Start: 11-18-2015 End: 11-18-2015 *CMP Complete Metabolic Panel Gopi Astorga DO Start: 11-18-2015 End: 11-20-2015 [id number] [Mass/volume] in Serum or Plasma Gopi Astorga DO Plan of Treatment Date Care Activity Detail Author Start: 02-25-2022 Influenza vaccination INFLUENZA (Season Ended) [facility] Start: 02-23-2022 DIABETES SCREEN DIABETES SCREEN [facility] Start: 06-27-2021 ADVANCE DIRECTIVE DISCUSSION ADVANCE DIRECTIVE DISCUSSION [facility] Start: 05-26-2017 End: 05-26-2017 Appointment Appointment [facility] Work Phone: Start: 08-17-2016 End: 02-17-2016 *CBC with Differential *CBC with Differential [facility] Work Phone: Start: 08-17-2016 End: 08-17-2016 *CMP Complete Metabolic Panel *CMP Complete Metabolic Panel [facility] Work Phone: Start: 08-17-2016 End: 08-19-2016 *SPEP (Serum Protein Electrophoresis) *SPEP (Serum Protein Electrophoresis) [facility] Work Phone: Start: 08-17-2016 End: 08-19-2016 *UPEP *UPEP [facility] Work Phone: Start: 08-17-2016 End: 08-19-2016 [id number]-[id number] *B2MIC - Beta-2 Microglobulin [facility] Work Phone: Start: 08-17-2016 End: 08-19-2016 IgA *MOHIT Immunoglobulin A (IgA) [facility] Work Phone: Start: 08-17-2016 End: 08-19-2016 IgG *IMG Immunoglobulin G (IgG) [facility] Work Phone: Start: 08-17-2016 End: 08-19-2016 IgM *IMM Immunoglobulin (IgM) [facility] Work Phone: Start: 02-17-2016 End: 11-20-2015 *CBC with Differential *CBC with Differential [facility] Work Phone: Start: 02-17-2016 End: 11-20-2015 *CMP Complete Metabolic Panel *CMP Complete Metabolic Panel [facility] Work Phone: Start: 02-17-2016 End: 11-20-2015 *SPEP (Serum Protein Electrophoresis) *SPEP (Serum Protein Electrophoresis) [facility] Work Phone: Start: 02-17-2016 End: 11-20-2015 *UPEP *UPEP [facility] Work Phone: Start: 02-17-2016 End: 11-20-2015 [id number]-[id number] *B2MIC - Beta-2 Microglobulin [facility] Work Phone: Start: 11-18-2015 End: 08-20-2015 *CBC with Differential *CBC with Differential [facility] Work Phone: Start: 11-18-2015 End: 11-18-2015 *CMP Complete Metabolic Panel *CMP Complete Metabolic Panel [facility] Work Phone: Start: 11-18-2015 End: 08-20-2015 *MISC - Miscellaneous Lab Test #1 *MISC - Miscellaneous Lab Test #1 [facility] Work Phone: Start: 11-18-2015 End: 08-20-2015 *SPEP (Serum Protein Electrophoresis) *SPEP (Serum Protein Electrophoresis) [facility] Work Phone: Start: 11-18-2015 End: 11-20-2015 [id number] *B2MIC - Beta-2 Microglobulin [facility] Work Phone: Start: 11-18-2015 End: 11-20-2015 Rheumatology Referral Rheumatology Referral [facility], [address] [place] [address], [id number] [facility] Work Phone: Start: 08-19-2015 End: 05-20-2015 *CBC with Differential *CBC with Differential [facility] Work Phone: Start: 08-19-2015 End: 05-20-2015 *CMP Complete Metabolic Panel *CMP Complete Metabolic Panel [facility] Work Phone: Start: 08-19-2015 End: 05-20-2015 *SPEP (Serum Protein Electrophoresis) *SPEP (Serum Protein Electrophoresis) [facility] Work Phone: Start: 08-19-2015 End: 05-20-2015 Erythrocyte sedimentation rate *Sedimentation Rate (ESR) [facility] Work Phone: Start: 08-19-2015 End: 05-20-2015 Lactate dehydrogenase (LDH) *LDH -LDH (Lactate Dehydrogenase) [facility] Work Phone: Start: 08-19-2015 End: 05-20-2015 Urate *Uric Acid Blood [facility] Work Phone: Start: 2015 BONE DENSITY BONE DENSITY [facility] Start: 2015 zzPNEUMOVAX AGE 65 AND OVER WITH 5YR LOOKBACK (Retired) (#1) zzPNEUMOVAX AGE 65 AND OVER WITH 5YR LOOKBACK (Retired) (#1) [facility] Start: 06-17-2014 End: 06-17-2014 EMG EMG [facility] Work Phone: Start: 06-17-2014 End: 06-17-2014 Nerve Conduction Nerve Conduction [facility] Work Phone: Start: 03-12-2014 End: 03-12-2014 EMG EMG [facility] Work Phone: Start: 03-12-2014 End: 03-12-2014 Nerve Conduction Nerve Conduction [facility] Work Phone: Start: 03-12-2014 End: 03-12-2014 Radex hand minimum 3 views X-Ray, Hand [facility] Work Phone: Start: 2000 SHINGRIX VACCINE (1 of 2) SHINGRIX VACCINE (1 of 2) [facility] Start: 1995 COLOGUARD (FIT-DNA) COLOGUARD (FIT-DNA) [facility] Start: 1995 Colonoscopy COLONOSCOPY [facility] Start: 1995 COLORECTAL CANCER SCREENING COLORECTAL CANCER SCREENING [facility] Start: [address] COLONOGRAPHY [facility] Start: 1995 FECAL OCCULT BLOOD FECAL OCCULT BLOOD [facility] Start: 1995 LIPID SCREEN LIPID SCREEN [facility] Start: 1995 SIGMOIDOSCOPY SIGMOIDOSCOPY [facility] Start: 1990 Mammography MAMMOGRAM [facility] Start: 1969 Urine microalbumin profile DTAP,TDAP,TD (1 - Tdap) [facility] Start: 1962 Adult depression screening assessment DEPRESSION SCREENING [facility] Start: 1955 COVID-19 VACCINE (#1) COVID-19 VACCINE (#1) [facility] Payers Date Payer Category Payer Medicare MMO MEDICARE MMO MEDADVANTAGE PPO [id number] 2018-Present [phone] [address] [place] [address] O 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 Author Type: Nurse Practitioner [...] external genitalia normal, normal Bartholin's glands, urethra, Whiting's glands, no vulvar lesions, no cervical lesions, [...] to protect skin. Follow-up as needed. Brisa Gut (more content not included)... [facility] Summary Purpose Family History No Family History Records FoundNo Family History Records FoundNo Family History Records FoundNo Family History Records Found Advance Directives No Advanced Directives Records FoundNo Advanced Directives Records FoundNo Advanced Directives Records FoundNo Advanced Directives Records Found Additional Source Comments INFORMATION SOURCE (unrecogn ized section and content) DATE CREATED AUTHOR 12/21/2018 [facility] DATE CREATED AUTHOR AUTHOR'S ORGANIZ ATION 08/06/2021 [facility] DATE CREATED AUTHOR AUTHOR'S ORGANIZ ATION 10/06/2021 [facility] DATE CREATED AUTHOR AUTHOR'S ORGANIZ ATION 11/26/2021 [facility] [place] Source Comments (unrecognize d section and content) In the event this informatio n is protected by the Federal Confidentiality of Alcohol and Drug Abuse Patient Records regulations: The Federal rules restrict any use of the information to criminally investigate or prosecute any alcohol or drug abuse patient.[facility] Care Teams (unrecognized sec tion and content) Flow Floor Attendant Relationship Specialty Start Date End Date Kanika Ramires DO [address] [facility] [place] [address] PCP - General Family Practice 02/19/19 FOR RECORDS PERTAINING TO PATIENTS WHO ARE [...] BE BASED ON THE PRIMARY CLINICAL RECORDS. [employer] [facility]. provides no warranty or guarantee of the accuracy or completeness of information in this document.
== END 2024-04-24 18:12 | disposition home or self-care (01) ==
LOC: SDC 11:45 → AC 11:47
PROVIDERS: PCP Family Medicine; Referring Provider Surgery; Visit Provider Surgery
PROC: (CPT 47610; principal; 2024-04-24 12:55)
DX: K80.66 Calculus of gallbladder and bile duct with acute and chronic cholecystitis without obstruction (principal); I25.10 Atherosclerotic heart disease of native coronary artery without angina pectoris; Z79.82 Long term (current) use of aspirin; I10 Essential (primary) hypertension; E78.00 Pure hypercholesterolemia, unspecified; J45.909 Unspecified asthma, uncomplicated; K21.9 Gastro-esophageal reflux disease without esophagitis; Z79.890 Hormone replacement therapy; Z79.899 Other long term (current) drug therapy; E03.9 Hypothyroidism, unspecified
CPT/HCPCS: 47563; 00790; 74300; 76000; 88304; J7120; J0744; J2405

== ENCOUNTER → 2024-05-28 | Outpatient (CLI) | payer MEDICARE, SELFPAY ==
[2023-10-10 14:22] VITALS: BMI 38.3
[2024-05-28 12:41] LABS: AST(SGOT) 17 U/L (15-37); Alanine Aminotransfer ALT/SGPT 19 U/L (13-56); Albumin, Serum 3.1 g/dL (3.2-5.0); Alkaline Phosphatase 114 U/L (45-117); Bilirubin, Direct 0.19 mg/dL (0.00-0.30); Globulin 3.4 g/dL (2.2-4.2); Protein, Total 6.5 g/dL (6.4-8.2)
== END | disposition home or self-care (01) ==
LOC: LAB 11:29
PROVIDERS: Nurse Practitioner Acute Care; PCP Family Medicine; Referring Provider Internal Medicine Gastroenterology; Visit Provider Internal Medicine Gastroenterology
DX: K80.43 Calculus of bile duct with acute cholecystitis with obstruction (principal)
CPT/HCPCS: 36415; 80076

== ENCOUNTER 2024-07-26 11:15 | Day surgery (SDC) | payer MEDICARE, SELFPAY ==
[2023-10-10 14:22] VITALS: BMI 38.3
--- NOTE | 2024-07-19 19:48 | PAT.ANE_ITS ---
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 When Was Last Pacemaker Check QUESTION #4 FULL TEXT: You/Your Family Experience fever (hyperthermia) with Anesthesia Last Oral Intake Last Oral intake: Last Oral Intake NPO since Meds taken in AM with sips of water? Meds patient instructed to take am of surgery PONV PONV - shift supervisor rn: PONV - shift supervisor rn Female Yes 07/19/24 15:03 HX of Motion Sickness Yes 07/19/24 15:03 HX of N/V After Surgery Yes 07/19/24 15:03 Non-Smoker Yes 07/19/24 15:03 Duration of Surgery greater No 07/19/24 15:03 than 60 minutes Number of Risk Factors 4 07/19/24 15:03 PONV Score Severe Risk 07/19/24 15:03 Height & Weight Height & Weight: Anesthesia: Height & Weight Height 5 ft 1 in 04/24/24 12:20 Respiratory Assessment Respiratory Assessment - shift supervisor rn: Respiratory Tract Infection Hx - shift supervisor rn Hx Respiratory Tract Infection No 07/19/24 15:03 STOP Sleep Apnea STOP Sleep Apnea - shift supervisor rn: STOP Sleep Apnea - shift supervisor rn Hx Hypertension Yes: controlled with med 07/19/24 15:03 Hx Sleep Apnea No 07/19/24 15:03 CPAP No 07/19/24 15:03 BIPAP Do you snore loudly (louder No 07/19/24 15:03 than talking or can be heard Do you often feel tired/ Yes 07/19/24 15:03 fatigued/ sleepy during daytime? Has anyone observed you stop No 07/19/24 15:03 breathing during sleep? STOP Results Positive 07/19/24 15:03 QUESTION #5 FULL TEXT : Do you snore loudly (louder than talking or can be heard through closed doors)? 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 Specify any problems Hx of Preganancy in last 3 No 07/19/24 15:03 Months Nurse Filling Out Transfusion DSCHRIBER 07/19/24 15:03 & Questions: Date: 07/19/24 07/19/24 15:03 Time: 15:03 07/19/24 15:03 Patient unable to answer at this time (ie. confused, unrespo /Reproduction History /Reproductive History - shift supervisor rn: /Reproductive Hx- shift supervisor rn Hx Now No 07/19/24 15:03 Gestational Age (in weeks): EDC: Hx Hx Para Hx Section SAB No 07/19/24 15:03 PFSH Medical History Wears glasses Post-menopausal Rheumatoid arthritis Ambulates with cane Polymyalgia rheumatica High cholesterol Giant cell arteritis Ulcerative colitis Non-smoker History of atrial fibrillation History of echocardiogram History of stress test Cardiology follow-up encounter Hypertension CAD (coronary artery disease) COVID-19 (~06/2021) History of coronary artery disease Monoclonal gammopathy of unknown significance (MGUS) Monoclonal gammopathy Temporal arteritis Osteoarthritis of left shoulder Asthma HLD (hyperlipidemia) HTN (hypertension) Atherosclerotic heart disease of [place] coronary artery without angina pectoris Acute ST elevation myocardial infarction GERD (gastroesophageal reflux disease) Hypothyroidism M?ni?re's disease Retinal tear of left eye Ulnar neuropathy Polyclonal gammopathy IBS (irritable bowel syndrome) Vitamin D deficiency Osteopenia Incontinence Knee pain PVC's (premature ventricular contractions) SOB (shortness of breath) Arthritis Home Medications ?Medication ?Instructions ?Recorded ?Last Taken ?Type levothyroxine 50 mcg tablet 50 mcg PO DAILY Thyroid 12/31/16 04/15/24 History acetaminophen 500 mg tablet 500 - 1,000 mg PO DAILY PRN PRN 08/06/20 08/01/20 History Pain 1-10 Or Fever potassium chloride 20 mEq 20 meq PO DAILY supplement 09/22/20 08/08/21 History tablet,extended release(part/cryst) omeprazole 40 mg capsule,delayed 40 mg PO BID gerd 08/05/21 04/15/24 History release atorvastatin 80 mg tablet 80 mg PO QHS cholesterol 08/08/21 04/14/24 History hydrochlorothiazide 25 mg tablet 25 mg PO DAILY diuretic 08/28/21 04/15/24 History cholecalciferol (vitamin D3) 50 2,000 unit PO DAILY SUPPLEMENT 04/05/22 04/13/24 History mcg (2,000 unit) capsule metoprolol tartrate 50 mg tablet 50 mg PO BID BP #180 tabs 09/28/23 04/14/24 Rx mecobalamin (vitamin B12) 1,000 1,000 mcg sublingual DAILY 10/26/23 04/13/24 History mcg disintegrating supplement tablet,sublingual losartan 25 mg tablet 25 mg PO DAILY blood pressure #90 06/18/24 Unknown Rx tabs Allergy/AdvReac Type Severity Reaction Status Date / Time clarithromycin (From Biaxin) Allergy Rash Verified 07/19/24 14:40 sulfamethoxazole (From Allergy Rash Verified 07/19/24 14:40 Bactrim) trimethoprim (From Bactrim) Allergy Rash Verified 07/19/24 14:40 carvedilol (From Coreg) AdvReac Intermediate Nausea, Verified 07/19/24 14:40 Lightheaded codeine AdvReac Upset Verified 07/19/24 14:40 Stomach lisinopril AdvReac cough Verified 07/19/24 14:40 Penicillins AdvReac Other Verified 07/19/24 15:27 Family History Mother Cancer skin Anemia Father Cancer Heart disease Surgical History (Updated 07/19/24 @ 15:04 by Patricia Alberts) History of ERCP Hx laparoscopic cholecystectomy S/P cholecystectomy History of cataract extraction with lens replacement History of coronary artery stent placement History of cardiac catheterization History of temporal artery biopsy (~12/2018) History of delivery Stented coronary artery (06/20/18) History of dilatation and curettage Hx of breast biopsy Hx of tonsillectomy Social History Smoking Status: Never smoker alcohol intake: never substance use type: does not use caffeine: No Audit: Pertinent Findings Pertinent Findings EKG Perinent findings: December 21, 2023. Sinus bradycardia within normal limits. Stress test pertinent findings: May 11, 2022. Ejection fraction of 87%. No ischemia or infarct seen. Echo (EF%) pertinent findings: August 10, 2021. Ejection fraction 65%. Right ventricular systolic pressure is 31 mmHg. No aortic stenosis noted. Heart catheterization pertinent findings: June 20, 2018. Ejection fraction 55%. Nonobstructive coronary arteries. Double vessel coronary artery disease of the LAD and diagonal. Successful PTCA/ALLIE of the mid LAD. Stenosis was reduced from 85% to 0%. Successful PTCA/ALLIE of the proximal to mid diagonal #1. 85% reduced to 0%. Consult pertinent findings: December 21, 2023. Dr. Davila. 1. Paroxysmal atrial fibrillation-patient is very symptomatic when she is in A-fib. Though she has not had a recurrence in over a year. Current EKG shows sinus bradycardia. Discontinue Eliquis and resume baby aspirin per day. Patient is instructed to go back on her Eliquis if she feels like the atrial fibrillation has returned. 2. Hypertension?well-controlled 3. Atherosclerotic heart disease without angina-status post STEMI. ALLIE to the mid LAD, ALLIE to the proximal diagonal #1. Additional pertinent findings: Holter monitor on September 23, 2021. Normal sinus rhythm. 0.6% of the scan was atrial fibrillation. Patient kept a diary of symptoms of shortness of breath and palpitations which did not correlate with the scan. Recommendation Anesthesia Recommendation Anesthesia recommendation: OPTIMIZED for anesthesia
--- NOTE | 2024-07-19 20:12 | PAT.ANESEVAL ---
Pre-Assessment Diagnosis/Proposed Procedure Planned Operative Procedure(s): ERCP STENT REMOVAL Anesthesia History Anesthesia History - slipman: Anesthesia History - slipman Hx Hospitalization Yes: 03/202407/19/24 15:03 Any Problems With Anesthesia Yes: NAUSEA 07/19/24 15:03 Cholinesterase deficiency No 07/19/24 15:03 You/Your Family Experience No 07/19/24 15:03 fever (hyperthermia) with Relationship Recent Exposure to Contagious No 04/24/24 12:20 Disease Does patient have nerve No 07/19/24 15:03 stimulator Patient instructed to have device shut off --Does patient have Pacemaker or ICD? When Was Last Pacemaker Check QUESTION #4 FULL TEXT: You/Your Family Experience fever (hyperthermia) with Anesthesia Last Oral Intake Last Oral intake: Last Oral Intake NPO since Meds taken in AM with sips of water? Meds patient instructed to take am of surgery PONV PONV - slipman: PONV - slipman Female Yes 07/19/24 15:03 HX of Motion Sickness Yes 07/19/24 15:03 HX of N/V After Surgery Yes 07/19/24 15:03 Non-Smoker Yes 07/19/24 15:03 Duration of Surgery greater No 07/19/24 15:03 than 60 minutes Number of Risk Factors 4 07/19/24 15:03 PONV Score Severe Risk 07/19/24 15:03 Height & Weight Height & Weight: Anesthesia: Height & Weight Height 5 ft 1 in 04/24/24 12:20 Respiratory Assessment Respiratory Assessment - slipman: Respiratory Tract Infection Hx - slipman Hx Respiratory Tract Infection No 07/19/24 15:03 STOP Sleep Apnea STOP Sleep Apnea - slipman: STOP Sleep Apnea - slipman Hx Hypertension Yes: controlled with med 07/19/24 15:03 Hx Sleep Apnea No 07/19/24 15:03 CPAP No 07/19/24 15:03 BIPAP Do you snore loudly (louder No 07/19/24 15:03 than talking or can be heard Do you often feel tired/ Yes 07/19/24 15:03 fatigued/ sleepy during daytime? Has anyone observed you stop No 07/19/24 15:03 breathing during sleep? STOP Results Positive 07/19/24 15:03 QUESTION #5 FULL TEXT : Do you snore loudly (louder than talking or can be heard through closed doors)? 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 Specify any problems Hx of Preganancy in last 3 No 07/19/24 15:03 Months Nurse Filling Out Transfusion DSCHRIBER 07/19/24 15:03 & Questions: Date: 07/19/24 07/19/24 15:03 Time: 15:03 07/19/24 15:03 Patient unable to answer at this time (ie. confused, unrespo /Reproduction History /Reproductive History - slipman: /Reproductive Hx- slipman Hx Now No 07/19/24 15:03 Gestational Age (in weeks): EDC: Hx Hx Para Hx Section SAB No 07/19/24 15:03 PFSH Medical History Wears glasses Post-menopausal Rheumatoid arthritis Ambulates with cane Polymyalgia rheumatica High cholesterol Giant cell arteritis Ulcerative colitis Non-smoker History of atrial fibrillation History of echocardiogram History of stress test Cardiology follow-up encounter Hypertension CAD (coronary artery disease) COVID-19 (~06/2021) History of coronary artery disease Monoclonal gammopathy of unknown significance (MGUS) Monoclonal gammopathy Temporal arteritis Osteoarthritis of left shoulder Asthma HLD (hyperlipidemia) HTN (hypertension) Atherosclerotic heart disease of [place] coronary artery without angina pectoris Acute ST elevation myocardial infarction GERD (gastroesophageal reflux disease) Hypothyroidism M?ni?re's disease Retinal tear of left eye Ulnar neuropathy Polyclonal gammopathy IBS (irritable bowel syndrome) Vitamin D deficiency Osteopenia Incontinence Knee pain PVC's (premature ventricular contractions) SOB (shortness of breath) Arthritis Home Medications ?Medication ?Instructions ?Recorded ?Last Taken ?Type levothyroxine 50 mcg tablet 50 mcg PO DAILY Thyroid 12/31/16 04/15/24 History acetaminophen 500 mg tablet 500 - 1,000 mg PO DAILY PRN PRN 08/06/20 08/01/20 History Pain 1-10 Or Fever potassium chloride 20 mEq 20 meq PO DAILY supplement 09/22/20 08/08/21 History tablet,extended release(part/cryst) omeprazole 40 mg capsule,delayed 40 mg PO BID gerd 08/05/21 04/15/24 History release atorvastatin 80 mg tablet 80 mg PO QHS cholesterol 08/08/21 04/14/24 History hydrochlorothiazide 25 mg tablet 25 mg PO DAILY diuretic 08/28/21 04/15/24 History cholecalciferol (vitamin D3) 50 2,000 unit PO DAILY SUPPLEMENT 04/05/22 04/13/24 History mcg (2,000 unit) capsule metoprolol tartrate 50 mg tablet 50 mg PO BID BP #180 tabs 09/28/23 04/14/24 Rx mecobalamin (vitamin B12) 1,000 1,000 mcg sublingual DAILY 10/26/23 04/13/24 History mcg disintegrating supplement tablet,sublingual losartan 25 mg tablet 25 mg PO DAILY blood pressure #90 06/18/24 Unknown Rx tabs Allergy/AdvReac Type Severity Reaction Status Date / Time clarithromycin (From Biaxin) Allergy Rash Verified 07/19/24 14:40 sulfamethoxazole (From Allergy Rash Verified 07/19/24 14:40 Bactrim) trimethoprim (From Bactrim) Allergy Rash Verified 07/19/24 14:40 carvedilol (From Coreg) AdvReac Intermediate Nausea, Verified 07/19/24 14:40 Lightheaded codeine AdvReac Upset Verified 07/19/24 14:40 Stomach lisinopril AdvReac cough Verified 07/19/24 14:40 Penicillins AdvReac Other Verified 07/19/24 15:27 Family History Mother Cancer skin Anemia Father Cancer Heart disease Surgical History (Updated 07/19/24 @ 15:04 by Patricia Alberts) History of ERCP Hx laparoscopic cholecystectomy S/P cholecystectomy History of cataract extraction with lens replacement History of coronary artery stent placement History of cardiac catheterization History of temporal artery biopsy (~12/2018) History of delivery Stented coronary artery (06/20/18) History of dilatation and curettage Hx of breast biopsy Hx of tonsillectomy Social History Smoking Status: Never smoker alcohol intake: never substance use type: does not use caffeine: No Audit: Pertinent Findings HISTORY of Pertinent Findings History of Pertinent Findings: EKG Pertinent Findings EKG Perinent findings December 21, 2023. Sinus 07/19/24 19:54 bradycardia within normal limits. Stress Test Pertinent Findings Stress test pertinent findings May 11, 2022. Ejection 07/19/24 19:52 fraction of 87%. No ischemia or infarct seen. Echo Pertinent Findings Echo (EF%) pertinent findings August 10, 2021. Ejection 07/19/24 19:52 fraction 65%. Right ventricular systolic pressure is 31 mmHg. No aortic stenosis noted. Heart Catheterization Pertinent Findings Heart catheterization June 20, 2018. Ejection 07/19/24 20:05 pertinent findings fraction 55%. Nonobstructive coronary arteries. Double vessel coronary artery disease of the LAD and diagonal. Successful PTCA/ALLIE of the mid LAD. Stenosis was reduced from 85% to 0%. Successful PTCA/ALLIE of the proximal to mid diagonal #1. 85% reduced to 0%. Consult Pertinent Findings Consult pertinent findings December 21, 2023. Dr. Davila. 07/19/24 20:09 1. Paroxysmal atrial fibrillation-patient is very symptomatic when she is in A-fib. Though she has not had a recurrence in over a year. Current EKG shows sinus bradycardia. Discontinue Eliquis and resume baby aspirin per day. Patient is instructed to go back on her Eliquis if she feels like the atrial fibrillation has returned. 2. Hypertension?well- controlled 3. Atherosclerotic heart disease without angina- status post STEMI. ALLIE to the mid LAD, ALLIE to the proximal diagonal #1. Additional Pertinent Findings Additional pertinent findings Holter monitor on September 2307/19/24 19:58 2021. Normal sinus rhythm. 0.6% of the scan was atrial fibrillation. Patient kept a diary of symptoms of shortness of breath and palpitations which did not correlate with the scan. Recommendation Anesthesia Recommendation Anesthesia recommendation: OPTIMIZED for anesthesia
--- NOTE | 2024-07-19 20:13 | PAT.ANESEVAL ---
Pre-Assessment Diagnosis/Proposed Procedure Planned Operative Procedure(s): ERCP STENT REMOVAL Anesthesia History Anesthesia History - denial management representative: Anesthesia History - denial management representative Hx Hospitalization Yes: 03/202407/19/24 15:03 Any Problems With Anesthesia Yes: NAUSEA 07/19/24 15:03 Cholinesterase deficiency No 07/19/24 15:03 You/Your Family Experience No 07/19/24 15:03 fever (hyperthermia) with Relationship Recent Exposure to Contagious No 04/24/24 12:20 Disease Does patient have nerve No 07/19/24 15:03 stimulator Patient instructed to have device shut off --Does patient have Pacemaker or ICD? When Was Last Pacemaker Check QUESTION #4 FULL TEXT: You/Your Family Experience fever (hyperthermia) with Anesthesia Last Oral Intake Last Oral intake: Last Oral Intake NPO since Meds taken in AM with sips of water? Meds patient instructed to take am of surgery PONV PONV - denial management representative: PONV - denial management representative Female Yes 07/19/24 15:03 HX of Motion Sickness Yes 07/19/24 15:03 HX of N/V After Surgery Yes 07/19/24 15:03 Non-Smoker Yes 07/19/24 15:03 Duration of Surgery greater No 07/19/24 15:03 than 60 minutes Number of Risk Factors 4 07/19/24 15:03 PONV Score Severe Risk 07/19/24 15:03 Height & Weight Height & Weight: Anesthesia: Height & Weight Height 5 ft 1 in 04/24/24 12:20 Respiratory Assessment Respiratory Assessment - denial management representative: Respiratory Tract Infection Hx - denial management representative Hx Respiratory Tract Infection No 07/19/24 15:03 STOP Sleep Apnea STOP Sleep Apnea - denial management representative: STOP Sleep Apnea - denial management representative Hx Hypertension Yes: controlled with med 07/19/24 15:03 Hx Sleep Apnea No 07/19/24 15:03 CPAP No 07/19/24 15:03 BIPAP Do you snore loudly (louder No 07/19/24 15:03 than talking or can be heard Do you often feel tired/ Yes 07/19/24 15:03 fatigued/ sleepy during daytime? Has anyone observed you stop No 07/19/24 15:03 breathing during sleep? STOP Results Positive 07/19/24 15:03 QUESTION #5 FULL TEXT : Do you snore loudly (louder than talking or can be heard through closed doors)? Tobacco Use History Tobacco Use History - denial management representative: Tobacco Use History - denial management representative Tobacco Use Smoking Status Never smoker 07/19/24 15:03 Hx Tobacco Use No 07/19/24 15:03 Years Smoking Packs Smoked per Day Smoking Cessation Date was within the last 15 years Hx Smoking Cessation Date Hx Smoking Cessation Counseling Hematologic Medial History Hematologic Hx - denial management representative: Hematologic Medical Hx - remote sensing technician Hx of Blood Transfusion No 07/19/24 15:03 Hx of Transfusion in last 3 No 07/19/24 15:03 Months Date of Last Transfusion (if within last 3 months) Ever experience any problems No 07/19/24 15:03 with transfusion(s)? Specify any problems Hx of Preganancy in last 3 No 07/19/24 15:03 Months Nurse Filling Out Transfusion DSCHRIBER 07/19/24 15:03 & Questions: Date: 07/19/24 07/19/24 15:03 Time: 15:03 07/19/24 15:03 Patient unable to answer at this time (ie. confused, unrespo /Reproduction History /Reproductive History - denial management representative: /Reproductive Hx- denial management representative Hx Now No 07/19/24 15:03 Gestational Age (in weeks): EDC: Hx Hx Para Hx Section SAB No 07/19/24 15:03 PFSH Medical History Wears glasses Post-menopausal Rheumatoid arthritis Ambulates with cane Polymyalgia rheumatica High cholesterol Giant cell arteritis Ulcerative colitis Non-smoker History of atrial fibrillation History of echocardiogram History of stress test Cardiology follow-up encounter Hypertension CAD (coronary artery disease) COVID-19 (~06/2021) History of coronary artery disease Monoclonal gammopathy of unknown significance (MGUS) Monoclonal gammopathy Temporal arteritis Osteoarthritis of left shoulder Asthma HLD (hyperlipidemia) HTN (hypertension) Atherosclerotic heart disease of [place] coronary artery without angina pectoris Acute ST elevation myocardial infarction GERD (gastroesophageal reflux disease) Hypothyroidism M?ni?re's disease Retinal tear of left eye Ulnar neuropathy Polyclonal gammopathy IBS (irritable bowel syndrome) Vitamin D deficiency Osteopenia Incontinence Knee pain PVC's (premature ventricular contractions) SOB (shortness of breath) Arthritis Home Medications ?Medication ?Instructions ?Recorded ?Last Taken ?Type levothyroxine 50 mcg tablet 50 mcg PO DAILY Thyroid 12/31/16 04/15/24 History acetaminophen 500 mg tablet 500 - 1,000 mg PO DAILY PRN PRN 08/06/20 08/01/20 History Pain 1-10 Or Fever potassium chloride 20 mEq 20 meq PO DAILY supplement 09/22/20 08/08/21 History tablet,extended release(part/cryst) omeprazole 40 mg capsule,delayed 40 mg PO BID gerd 08/05/21 04/15/24 History release atorvastatin 80 mg tablet 80 mg PO QHS cholesterol 08/08/21 04/14/24 History hydrochlorothiazide 25 mg tablet 25 mg PO DAILY diuretic 08/28/21 04/15/24 History cholecalciferol (vitamin D3) 50 2,000 unit PO DAILY SUPPLEMENT 04/05/22 04/13/24 History mcg (2,000 unit) capsule metoprolol tartrate 50 mg tablet 50 mg PO BID BP #180 tabs 09/28/23 04/14/24 Rx mecobalamin (vitamin B12) 1,000 1,000 mcg sublingual DAILY 10/26/23 04/13/24 History mcg disintegrating supplement tablet,sublingual losartan 25 mg tablet 25 mg PO DAILY blood pressure #90 06/18/24 Unknown Rx tabs Allergy/AdvReac Type Severity Reaction Status Date / Time clarithromycin (From Biaxin) Allergy Rash Verified 07/19/24 14:40 sulfamethoxazole (From Allergy Rash Verified 07/19/24 14:40 Bactrim) trimethoprim (From Bactrim) Allergy Rash Verified 07/19/24 14:40 carvedilol (From Coreg) AdvReac Intermediate Nausea, Verified 07/19/24 14:40 Lightheaded codeine AdvReac Upset Verified 07/19/24 14:40 Stomach lisinopril AdvReac cough Verified 07/19/24 14:40 Penicillins AdvReac Other Verified 07/19/24 15:27 Family History Mother Cancer skin Anemia Father Cancer Heart disease Surgical History (Updated 07/19/24 @ 15:04 by Patricia Alberts) History of ERCP Hx laparoscopic cholecystectomy S/P cholecystectomy History of cataract extraction with lens replacement History of coronary artery stent placement History of cardiac catheterization History of temporal artery biopsy (~12/2018) History of delivery Stented coronary artery (06/20/18) History of dilatation and curettage Hx of breast biopsy Hx of tonsillectomy Social History Smoking Status: Never smoker alcohol intake: never substance use type: does not use caffeine: No Audit: Pertinent Findings HISTORY of Pertinent Findings History of Pertinent Findings: EKG Pertinent Findings EKG Perinent findings December 21, 2023. Sinus 07/19/24 19:54 bradycardia within normal limits. Stress Test Pertinent Findings Stress test pertinent findings May 11, 2022. Ejection 07/19/24 19:52 fraction of 87%. No ischemia or infarct seen. Echo Pertinent Findings Echo (EF%) pertinent findings August 10, 2021. Ejection 07/19/24 19:52 fraction 65%. Right ventricular systolic pressure is 31 mmHg. No aortic stenosis noted. Heart Catheterization Pertinent Findings Heart catheterization June 20, 2018. Ejection 07/19/24 20:05 pertinent findings fraction 55%. Nonobstructive coronary arteries. Double vessel coronary artery disease of the LAD and diagonal. Successful PTCA/ALLIE of the mid LAD. Stenosis was reduced from 85% to 0%. Successful PTCA/ALLIE of the proximal to mid diagonal #1. 85% reduced to 0%. Consult Pertinent Findings Consult pertinent findings December 21, 2023. Dr. Davila. 07/19/24 20:09 1. Paroxysmal atrial fibrillation-patient is very symptomatic when she is in A-fib. Though she has not had a recurrence in over a year. Current EKG shows sinus bradycardia. Discontinue Eliquis and resume baby aspirin per day. Patient is instructed to go back on her Eliquis if she feels like the atrial fibrillation has returned. 2. Hypertension?well- controlled 3. Atherosclerotic heart disease without angina- status post STEMI. ALLIE to the mid LAD, ALLIE to the proximal diagonal #1. Additional Pertinent Findings Additional pertinent findings Holter monitor on September 2307/19/24 19:58 2021. Normal sinus rhythm. 0.6% of the scan was atrial fibrillation. Patient kept a diary of symptoms of shortness of breath and palpitations which did not correlate with the scan. Recommendation Anesthesia Recommendation Anesthesia recommendation: OPTIMIZED for anesthesia
[2024-07-26] VITALS (9 sets, daily range): BP systolic 83–108; BP diastolic 43–53; PULSE 63–68; RESP 16–18; TEMP 36.7–36.9; O2SAT 93–98; BMI 32.5
--- NOTE | 2024-07-26 | IMM_PTH ---
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 Denton Morgan DO : 1950 BED: DIS: 07/26/2024 SPEC #: [id number] RECD: 07/27/24 10:05 STATUS: PORFIRIO REJim #: [id number] LESLEY: 07/26/24 00:[address]: Denton Morgan DEPT: IMMUNOHISTOCHEMISTRY RECD BY: Narciso Menjivar ENTERED: 07/27/24 10:05 SP TYPE: IMMUNO OTHR DR: Dr. Mikael Ramires DO Tissues: Gastric mucous membrane Procedures: H Pylori (initial) PHYSICIAN & INSTITUTION [place] [id number] SPECIMEN INFORMATION: Tissue Source: Gastric polyp Clinical Info: Status post cholecystectomy, elevated liver enzymes, choledocholithiasis with acute cholecystitis with obstruction Specimen Number: [id number] block 1 CPT code: 91736 METHODOLOGY: Deparaffinized sections of prefer/formalin-fixed tissue or PAP/DQ stained slides are incubated with monoclonal/polyclonal antibodies/oligonucleotide probes. Localization is made via biotin free immunoperoxidase method. Appropriate controls are performed and reacted as expected. Results on target cell population are indicated in the following table: RESULTS: ANTIBODY / CLONE RESULT Block 1 H Pylori (polyclonal) negative These tests were developed and their performance characteristics determined by [facility]. They may not have been cleared or approved by the U.S. Food and Drug Administration. The FDA has determined that such clearance or approval is not necessary. The above immunohistochemical/dualISH markers are ordered and reviewed by the Pathologist. INTERPRETATION: Gastric polyp, biopsy: Negative for Helicobacter pylori organisms. 07/27/2024
--- NOTE | 2024-07-26 11:39 | EKG12_ITS ---
Test Reason : PREOP Blood Pressure : */* mmHG Vent. Rate : 63 BPM Atrial Rate : 63 BPM P-R Int : 156 ms QRS Dur : 68 ms QT Int : 408 ms P-R-T Axes : 4 4 22 degrees QTcB Int : 417 ms Normal sinus rhythm Normal ECG When compared with ECG of 16-Apr-2024 04:58, Vent. rate has decreased by 35 bpm Confirmed by HERMINIA KAY, ANGELA ([id number]), magazine editor MINNA JACKSON ([id number]) on 07/26/2024 2:46:33 PM Referred By: Mikael Ramires Confirmed By: ANGELA HOPE MD
--- NOTE | 2024-07-26 12:14 | PRE.ANES_ITS ---
ASA Classification* ASA Classification ASA Classification: 3 Assessment & Plan Anesthesia* Anesthesia Assessment Anesthesia Assessment: Discussed sedation and/or anesthesia options, risks, benefits, and alternatives with patient/parents/legal guardian/POA. Questions invited. The patient/parents/legal guardian/POA seems to understand and agrees to proceed with anesthesia plan. Reviewed the physical assessment, medical history, allergy history and patient home medications list prior to surgery/procedure/anesthetic and documented any changes. Performed airway and anesthesia risk assessments. Anesthesia Type Anesthesia Type: MAC History Source History Obtained from:: Patient and Chart Anesthesia Focused Assessment* Temperature: 98.0 F Pulse Rate: 66 Blood Pressure: 98/51 Respiratory Rate: 16 Pulse Ox: 98 Oxygen Delivery Method: Room Air Airway Assessment Mouth opens: >3 cm Mallampati Score: III Teeth Condition: Caps/Crowns (Patient has several crowns. They are all tight.) Neck Range of motion (ROM): Limited ROM Focused Labs Anesthesia Preop lab: CBC WBC 7.2 K/mm3 (4.4-11.0) 04/18/24 05:15 04/18/24 RBC 3.79 M/mm3 (4.2-5.4) L 04/18/24 05:15 04/18/24 Hgb 10.0 g/dL (12.0-15.0) L 04/18/24 05:15 4 Hct 32.0 % (37-47) L 04/18/24 05:15 04/18/24 Plt Count 184 K/mm3 (150-450) 04/18/24 05:15 04/18/24 CHEMISTRY Potassium 3.5 mmol/L (3.5-5.1) 04/18/24 05:15 04/18/24 Sodium 139 mmol/L (136-145) 04/18/24 05:15 04/18/24 Magnesium 1.9 mg/dL (1.6-2.6) 04/17/24 06:03 04/17/24 Phosphorus 2.9 mg/dL (2.5-4.9) 04/17/24 06:03 04/17/24 BUN 13 mg/dL (7-18) 04/18/24 05:15 04/18/24 Creatinine 0.59 mg/dL (0.55-1.02) 04/18/24 05:15 04/18/24 Glucose 121 mg/dL (74-106) H 04/18/24 05:15 04/18/24 POC Glucose 117 mg/dL (70-110) H 06/21/18 06:54 06/21/18 TSH 1.060 uIU/mL (0.358-3.740) 04/16/24 06:04 03/28 07/20 COAG PT 13.9 SECONDS (11.7-14.9) 04/16/24 06:04 Pre-Assessment Diagnosis/Proposed Procedure Planned Operative Procedure(s): ERCP STENT REMOVAL Anesthesia History 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 When Was Last Pacemaker Check QUESTION #4 FULL TEXT: You/Your Family Experience fever (hyperthermia) with Anesthesia Last Oral Intake Last Oral intake: Last Oral Intake NPO since 21:00 07/26/24 11:40 Meds taken in AM with sips of Yes 07/26/24 11:40 water? Meds patient instructed to 07/26/24 11:40 take am of surgery LEVOTHYROXINE, LOSARTAN, PRILOSEC PONV PONV - machinist/machine builder: PONV - machinist/machine builder Female Yes 07/19/24 15:03 HX of Motion Sickness Yes 07/19/24 15:03 HX of N/V After Surgery Yes 07/19/24 15:03 Non-Smoker Yes 07/19/24 15:03 Duration of Surgery greater No 07/19/24 15:03 than 60 minutes Number of Risk Factors 4 07/19/24 15:03 PONV Score Severe Risk 07/19/24 15:03 Height & Weight Height & Weight: Anesthesia: Height & Weight Height 5 ft 1 in 07/26/24 11:40 Weight: 78 kg 07/26/24 11:40 Body Mass Index (BMI) 32.5 07/26/24 11:40 Respiratory Assessment Respiratory Assessment - machinist/machine builder: Respiratory Tract Infection Hx - machinist/machine builder Hx Respiratory Tract Infection No 07/19/24 15:03 STOP Sleep Apnea STOP Sleep Apnea - machinist/machine builder: STOP Sleep Apnea - machinist/machine builder Hx Hypertension Yes: controlled with med 07/19/24 15:03 Hx Sleep Apnea No 07/19/24 15:03 CPAP No 07/19/24 15:03 BIPAP Do you snore loudly (louder No 07/19/24 15:03 than talking or can be heard Do you often feel tired/ Yes 07/19/24 15:03 fatigued/ sleepy during daytime? Has anyone observed you stop No 07/19/24 15:03 breathing during sleep? STOP Results Positive 07/19/24 15:03 QUESTION #5 FULL TEXT : Do you snore loudly (louder than talking or can be heard through closed doors)? 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 Specify any problems Hx of Preganancy in last 3 No 07/19/24 15:03 Months Nurse Filling Out Transfusion DSCHRIBER 07/19/24 15:03 & Questions: Date: 07/19/24 07/19/24 15:03 Time: 15:03 07/19/24 15:03 Patient unable to answer at this time (ie. confused, unrespo /Reproduction History /Reproductive History - machinist/machine builder: /Reproductive Hx- machinist/machine builder Hx Now No 07/19/24 15:03 Gestational Age (in weeks): EDC: Hx Hx Para Hx Section SAB No 07/19/24 15:03 [facility] Medical History Wears glasses Post-menopausal Rheumatoid arthritis Ambulates with cane Polymyalgia rheumatica High cholesterol Giant cell arteritis Ulcerative colitis Non-smoker History of atrial fibrillation History of echocardiogram History of stress test Cardiology follow-up encounter Hypertension CAD (coronary artery disease) COVID-19 (~06/2021) History of coronary artery disease Monoclonal gammopathy of unknown significance (MGUS) Monoclonal gammopathy Temporal arteritis Osteoarthritis of left shoulder Asthma HLD (hyperlipidemia) HTN (hypertension) Atherosclerotic heart disease of [place] coronary artery without angina pectoris Acute ST elevation myocardial infarction GERD (gastroesophageal reflux disease) Hypothyroidism M?ni?re's disease Retinal tear of left eye Ulnar neuropathy Polyclonal gammopathy IBS (irritable bowel syndrome) Vitamin D deficiency Osteopenia Incontinence Knee pain PVC's (premature ventricular contractions) SOB (shortness of breath) Arthritis Home Medications ?Medication ?Instructions ?Recorded ?Last Taken ?Type levothyroxine 50 mcg tablet 50 mcg PO DAILY Thyroid 07/26/24 History acetaminophen 500 mg tablet 500 - 1,000 mg PO DAILY ND N PRN 08/06/20 08/01/20 History Pain 1-10 Or Fever potassium chloride 20 mEq 20 meq PO DAILY supplement 0 09/22/20 08/08/21 History tablet,extended release(part/cryst) omeprazole 40 mg capsule,delayed 40 mg PO BID gerd 03/1807/26/24 History release atorvastatin 80 mg tablet 80 mg PO QHS cholesterol 06/1704/14/24 History hydrochlorothiazide 25 mg tablet 25 mg PO DAILY diuret ic 08/28/21 04/15/24 History cholecalciferol (vitamin D3) 50 2,000 unit PO DAILY CORTEZ PPLEMENT 04/05/22 04/13/24 History mcg (2,000 unit) capsule metoprolol tartrate 50 mg tablet 50 mg PO BID BP #180 tabs 09/28/23 04/14/24 Rx mecobalamin (vitamin B12) 1,000 1,000 mcg sublingual D AILY 10/26/23 04/13/24 History mcg disintegrating supplement tablet,sublingual losartan 25 mg tablet 25 mg PO DAILY blood pressur e #90 06/18/24 07/26/24 Rx tabs Allergy/AdvReac Type Severity Reaction Status Date / Time clarithromycin (From Biaxin) Allergy Rash Verified 07/19/24 14:40 sulfamethoxazole (From Allergy Rash Verified 07/19/24 14:40 Bactrim) trimethoprim (From Bactrim) Allergy Rash Verified 07/19/24 14:40 carvedilol (From Coreg) AdvReac Intermediate Nausea, Verified 07/19/24 14:40 Lightheaded codeine AdvReac Upset Verified 07/19/24 14:40 Stomach lisinopril AdvReac cough Verified 07/19/24 14:40 Penicillins AdvReac Other Verified 07/19/24 15:27 Family History Mother Cancer skin Anemia Father Cancer Heart disease Surgical History History of ERCP Hx laparoscopic cholecystectomy S/P cholecystectomy History of cataract extraction with lens replacement History of coronary artery stent placement History of cardiac catheterization History of temporal artery biopsy (~12/2018) History of delivery Stented coronary artery (06/20/18) History of dilatation and curettage Hx of breast biopsy Hx of tonsillectomy Social History Smoking Status: Never smoker alcohol intake: never substance use type: does not use caffeine: No Review of Systems (Anesthesia) ROS Narrative System reviewed and no additional complaints, except as documented.
--- NOTE | 2024-07-26 12:15 | EGD_PTH ---
PATIENT: CHELSEY TOLLIVER LOC: EN U#:[id number] AGE/SX: 74/F ROOM: RE07/26/[address]: Dr. Denton Morgan DO : 1950 BED: DIS: 07/26/2024 SPEC #: [id number] RECD: 07/26/24 13:18 STATUS: PORFIRIO REJim #: [id number] LESLEY: 07/26/24 12:[address]: Denton Morgan DEPT: SURGICAL PATHOLOGY RECD BY: Arcelia Sharif ENTERED: 07/26/24 13:36 SP TYPE: EGD BIOPSY OT DR: Dr. Mikael Ramires DO Tissues: Gastric mucous membrane Procedures: Surgery Specimen Level IV HEADER OPERATION: Stent removal, balloon cholangiogram PRE-OP DIAGNOSIS: Status post cholecystectomy, elevated liver enzymes, choledocholithiasis with acute cholecystitis with obstruction TISSUE SUBMITTED: Gastric polyp MICROSCOPIC DIAGNOSIS Gastric polyp, polypectomy: Hyperplastic/inflammatory polyp. See comment. 07/27/2024 COMMENT The results of immunohistochemistry for Helicobacter pylori will be reported separately ([id number]). MICROSCOPIC DESCRIPTION Slides are reviewed. GROSS DESCRIPTION Received in fixative is one container labeled with the patient's name and designated Gastric polyp. The specimen consists of a single piece of red tissue measuring 1.6 x 1.4 x 0.8cm. The specimen appears to have a resection base which is inked black. The specimen is trisected and submitted in its entirety in two cassettes. Cassette 1 contains two pieces, cassette 2 contains one piece. mr 07/26/2024 TC:5 CPT:90562
--- NOTE | 2024-07-26 12:15 | FLU_PTH ---
PATIENT: CHELSEY TOLLIVER LOC: EN U#:[id number] AGE/SX: 74/F ROOM: RE07/26/[address]: Dr. Denton Morgan DO : 1950 BED: DIS: 07/26/2024 SPEC #: [id number] RECD: 07/26/24 13:18 STATUS: PORFIRIO REJim #: [id number] LESLEY: 07/26/24 12:[address]: Denton Morgan DEPT: CYTOLOGY RECD BY: Arcelia Sharif ENTERED: 07/26/24 13:36 SP TYPE: Fluid OTHR DR: Dr. Mikael Ramires DO Tissues: Bile duct, NOS Procedures: Special Stain Group II Surgery Specimen Level III Surgery Specimen Level IV Cytospin Fluid HEADER OPERATION: Stent removal, balloon cholangiogram PRE-OP DIAGNOSIS: Status post cholecystectomy, elevated liver enzymes, choledocholithiasis with acute cholecystitis with obstruction TISSUE SUBMITTED: Biliary stent fluid DIAGNOSIS CYTOLOGY Biliary stent fluid for cytology (cytospins and cellblock): Negative for malignant cells. See comment. mr 07/27/2024 COMMENT Numerous organisms consistent with bacteria are also noted. Clinical correlation and appropriate follow up are necessary. CYTOLOGY STUDY Slides are reviewed. CYTOLOGY GROSS Received is one black stent with 0.2 ml of yellow thick material labeled with the patient's name and and designated per the requisition as Biliary stent. Submitted for cytology preparation including cell block. Mr 07/26/2024 TC:5 CPT: 54793,57040
--- NOTE | 2024-07-26 12:16 | PCM.HP.STD ---
HPI - General General Date of Admission: 07/26/24 Date of Service: 07/26/24 Chief Complaint: Biliary stent removal HPI Narrative CHELSEY TOLLIVER, is a 74 F who presentsCHELSEY TOLLIVER, is a 73 F who presents today for stent to be removed. - CCX - 04/24/2024 abdominal pain/nausea/vomiting and on workup was found to have cholelithiasis, choledocholithiasis status post ERCP last week. Laparoscopic cholecystectomy was elected. - occasional abdominal spasms - gnawing on itself - denies any emesis - burning - improves with eating - gurgling exacerbated post OP - was having rock hard stools prior to CCX with occasional urgent watery diarrhea - now stools are soft/formed 1-2x a day - denies any HB - denies any N/V - denies any weight loss - she reports she has been taking Omeprazole 40mg ( 2 capsules) every morning - reports she has been on this dose for awhile - She reports fecal urgency has resolved and has been able to liberate her diet. - urgency with diarrhea was infrequent prior to CCX - She is now having a BM 1-2x a day and stools are soft formed, which is an improvement from rock hard stools she was having QD to QOD prior to CCX - She continues to avoid fatty/fried foods - no longer taking Eliquis or [facility] History Wears glasses Post-menopausal Rheumatoid arthritis Ambulates with cane Polymyalgia rheumatica High cholesterol Giant cell arteritis Ulcerative colitis Non-smoker History of atrial fibrillation History of echocardiogram History of stress test Cardiology follow-up encounter Hypertension CAD (coronary artery disease) COVID-19 (~06/2021) History of coronary artery disease Monoclonal gammopathy of unknown significance (MGUS) Monoclonal gammopathy Temporal arteritis Osteoarthritis of left shoulder Asthma HLD (hyperlipidemia) HTN (hypertension) Atherosclerotic heart disease of [place] coronary artery without angina pectoris Acute ST elevation myocardial infarction GERD (gastroesophageal reflux disease) Hypothyroidism M?ni?re's disease Retinal tear of left eye Ulnar neuropathy Polyclonal gammopathy IBS (irritable bowel syndrome) Vitamin D deficiency Osteopenia Incontinence Knee pain PVC's (premature ventricular contractions) SOB (shortness of breath) Arthritis Home Medications ?Medication ?Instructions ?Recorded ?Last Taken ?Type levothyroxine 50 mcg tablet 50 mcg PO DAILY Thyroid 12/31/16 07/26/24 History acetaminophen 500 mg tablet 500 - 1,000 mg PO DAILY PRN PRN 08/06/20 08/01/20 History Pain 1-10 Or Fever potassium chloride 20 mEq 20 meq PO DAILY supplement 09/22/20 08/08/21 History tablet,extended release(part/cryst) omeprazole 40 mg capsule,delayed 40 mg PO BID gerd 08/05/21 07/26/24 History release atorvastatin 80 mg tablet 80 mg PO QHS cholesterol 08/08/21 04/14/24 History hydrochlorothiazide 25 mg tablet 25 mg PO DAILY diuretic 08/28/21 04/15/24 History cholecalciferol (vitamin D3) 50 2,000 unit PO DAILY SUPPLEMENT 04/05/22 04/13/24 History mcg (2,000 unit) capsule metoprolol tartrate 50 mg tablet 50 mg PO BID BP #180 tabs 09/28/23 04/14/24 Rx mecobalamin (vitamin B12) 1,000 1,000 mcg sublingual DAILY 10/26/23 04/13/24 History mcg disintegrating supplement tablet,sublingual losartan 25 mg tablet 25 mg PO DAILY blood pressure #90 06/18/24 07/26/24 Rx tabs Allergy/AdvReac Type Severity Reaction Status Date / Time clarithromycin (From Biaxin) Allergy Rash Verified 07/19/24 14:40 sulfamethoxazole (From Allergy Rash Verified 07/19/24 14:40 Bactrim) trimethoprim (From Bactrim) Allergy Rash Verified 07/19/24 14:40 carvedilol (From Coreg) AdvReac Intermediate Nausea, Verified 07/19/24 14:40 Lightheaded codeine AdvReac Upset Verified 07/19/24 14:40 Stomach lisinopril AdvReac cough Verified 07/19/24 14:40 Penicillins AdvReac Other Verified 07/19/24 15:27 Family History Mother Cancer skin Anemia Father Cancer Heart disease Surgical History History of ERCP Hx laparoscopic cholecystectomy S/P cholecystectomy History of cataract extraction with lens replacement History of coronary artery stent placement History of cardiac catheterization History of temporal artery biopsy (~12/2018) History of delivery Stented coronary artery (06/20/18) History of dilatation and curettage Hx of breast biopsy Hx of tonsillectomy Social History Smoking Status: Never smoker alcohol intake: never substance use type: does not use caffeine: No Vital Signs Vital Signs Vital Signs: 07/26/24 11:40 07/26/24 11:40 Temperature 98.0 F Temperature Source Temporal Pulse Rate 66 Respiratory Rate 16 Respiratory Pattern Normal Blood Pressure 98/51 L Blood Pressure Mean 66 Blood Pressure Source Monitor Blood Pressure Position Semi-Fowlers Blood Pressure Location Right Arm Pulse Ox 98 Oxygen Delivery Method Room Air Weight Weight: 171 lb 15.369 oz Body Mass Index (BMI) 32.5 Physical Exam Const alert, oriented x3, no apparent distress and healthy appearing General Appearance: cooperative GI normal to inspection, nondistended, normoactive bowel sounds, soft to palpation, non-tender and non-distended Percussion: normal to percussion Rectal Exam: deferred Assessment & Plan Assessment/Plan (1) Choledocholithiasis with acute cholecystitis with obstruction: PLAN: Plan Assessment and Plan Assessment and Plan (1) S/P cholecystectomy: Status: Acute (2) Elevated liver enzymes: Status: Acute (3) Choledocholithiasis with acute cholecystitis with obstruction: Status: Acute Plan 73y/o female presents for follow-up post CCX 04/24/2024. She underwent ERCP with sphincterotomy and stent placement 04/16/2024 for for obstructive jaundice secondary to choledocholithiasis. She reports an increase in epigastric gurgling post-op and reports eating help alleviate this as well as decreases burning. We have discussed redirection of bile post CCX and possibility of bile acid gastritis. She reports symptoms are not bothersome to the point that she would add another medication. We have discussed use of Omeprazole as she is currently taking 80mg every morning; I recommend she take 40mg BID before breakfast and dinner. She will complete labs today and get the stent removal. Patient Instructions: 1. Split dosing of Omeprazole 40mg to 30 minutes before breakfast and dinner 2. ERCP with stent removal 3. We have discussed possibility of bile acid gastritis - consider sucralfate or Colesevelam in the future - discussed timing with other medications would need to be adjusted
--- NOTE | 2024-07-26 12:34 | RAD_ITS ---
EXAM: ERCP BILIARY/PANCREAS CLINICAL HISTORY: Removal of the biliary stent. COMPARISON: None. TECHNIQUE: ERCP was performed by the automatic driller and reamer. Fluoroscopic services was provided. FINDINGS: Contrast was injected. The biliary stent was removed. RAD/ERCP Biliary/Pancreas IMPRESSION: Removal of the biliary stent. Reading Location: [facility]
--- NOTE | 2024-07-26 13:22 | OP.ERCP_ITS ---
Patient Name: China Beltran Procedure Date: 07/26/2024 12:22 PM Date of : 1950 Age: 74 Procedure: ERCP Indications: Common bile duct stone(s), Biliary stent removal Providers: Denton Morgan DO Referring MD: Mikael Ramires Medicines: Monitored Anesthesia Care Patient Profile: This is a 74 year old female. Refer to note in patient chart for documentation of history and physical. Patient has symptoms of chronic right upper quadrant abdominal pain and acute nausea. She is status post laparoscopic cholecystectomy within the past three months. Complications: No immediate complications. Procedure: Pre-Anesthesia Assessment: - Prior to the procedure, a History and Physical was performed, and patient medications and allergies were reviewed. The patient is competent. The risks and benefits of the procedure and the sedation options and risks were discussed with the patient. All questions were answered and informed consent was obtained. Patient identification and proposed procedure were verified by the physician in the pre-procedure area. Mental Status Examination: alert and oriented. Airway Examination: normal oropharyngeal airway and neck mobility. Respiratory Examination: clear to auscultation. CV Examination: normal. Prophylactic Antibiotics: The patient does not require prophylactic antibiotics. Prior Anticoagulants: The patient has taken no anticoagulant or antiplatelet agents except for NSAID medication. ASA Grade Assessment: II - A patient with mild systemic disease. After reviewing the risks and benefits, the patient was deemed in satisfactory condition to undergo the procedure. The anesthesia plan was to use monitored anesthesia care (MAC). Immediately prior to administration of medications, the patient was re-assessed for adequacy to receive sedatives. The heart rate, respiratory rate, oxygen saturations, blood pressure, adequacy of pulmonary ventilation, and response to care were monitored throughout the procedure. The physical status of the patient was re-assessed after the procedure. After obtaining informed consent, the scope was passed under direct vision. Throughout the procedure, the patient's blood pressure, pulse, and oxygen saturations were monitored continuously. The Duodenoscope was introduced through the mouth, and advanced to the duodenum and used to inject contrast into the bile duct and ventral pancreatic duct. The ERCP was accomplished without difficulty. The patient tolerated the procedure well. Scope In: 12:50:58 PM Scope Out: 1:09:24 PM Total Procedure Duration Time 0 hours 18 minutes 26 seconds Findings: The residential sales executive film was normal. The esophagus was successfully intubated under direct vision. The scope was advanced to a normal major papilla in the descending duodenum without detailed examination of the pharynx, larynx and associated structures, and upper GI tract. The upper GI tract was grossly normal. The bile duct was deeply cannulated with the short-nosed traction sphincterotome. Contrast was injected. I personally interpreted the bile duct images. There was brisk flow of contrast through the ducts. Image quality was adequate. Contrast extended to the main bile duct. Contrast extended to the bifurcation. Contrast extended to the hepatic ducts. Contrast extended to the entire biliary tree. Contrast extended to the pancreatic duct. Contrast extended to the proximal pancreatic duct. Contrast extended to the distal pancreatic duct. Opacification of the entire biliary tree except for the cystic duct and gallbladder, entire biliary tree except for the gallbladder, entire opacified area, common bile duct, common hepatic duct, hepatic duct bifurcation, left and right hepatic ducts and all intrahepatic branches and entire biliary tree was successful. The maximum diameter of the ducts was 10 mm. The lower third of the main bile duct, left main hepatic duct and right and left intrahepatic branches (but not the right or left hepatic ducts) contained two stones, the largest of which was 6 mm in diameter. The entire biliary tree was moderately dilated and diffusely dilated, with a stone causing an obstruction. The largest diameter was 12 mm. A long 0.025 inch Jagwire was passed into the biliary tree. A 5 mm biliary sphincterotomy was made with a traction (standard) sphincterotome using ERBE electrocautery. There was no post-sphincterotomy bleeding. The biliary tree was swept with a 12 mm balloon starting at the bifurcation, left intrahepatic duct(s), left main hepatic duct and right main hepatic duct. Sludge was swept from the duct. All stones were removed. One stent was removed from the biliary tree using a snare and sent for cytology. The stent was found to be partially occluded via the water column test. A standard esophagogastroduodenoscopy scope was used for the examination of the upper gastrointestinal tract. The scope was passed under direct vision through the upper GI tract. Multiple 18 mm pedunculated and sessile polyps with bleeding and stigmata of recent bleeding were found in the gastric antrum. Biopsies were taken on the anterior wall of the gastric antrum through the esophagogastroduodenoscope with the cold forceps for histology. Coagulation for hemostasis in the stomach using snare through the esophagogastroduodenoscope was successful. Two 15 mm pedunculated and sessile polyps with bleeding and stigmata of recent bleeding were found in the gastric antrum. The polyp was removed with a hot snare. The polypectomy was performed through the esophagogastroduodenoscope. Resection and retrieval were complete. Impression: - Multiple gastric polyps. - Biopsies were taken with a cold forceps for histology on the anterior wall of the gastric antrum. - Hemostasis in the stomach with a hot snare was performed. - Two gastric polyps. - Polypectomy was performed. - The entire biliary tree was moderately dilated, with a stone causing an obstruction. - Choledocholithiasis was found. Complete removal was accomplished by biliary sphincterotomy and balloon extraction. - A biliary sphincterotomy was performed. - The biliary tree was swept. - One stent was removed from the biliary tree. Procedure Code(s): --- Professional --- 60279, Endoscopic retrograde cholangiopancreatography (ERCP); with removal of foreign body(s) or stent(s) from biliary/pancreatic duct(s) 60058, 51, Endoscopic retrograde cholangiopancreatography (ERCP); with removal of calculi/debris from biliary/pancreatic duct(s) 99432, Endoscopic retrograde cholangiopancreatography (ERCP); with sphincterotomy/papillotomy 56088, 59, Esophagogastroduodenoscopy, flexible, transoral; with control of bleeding, any method 43662, Esophagogastroduodenoscopy, flexible, transoral; with removal of tumor(s), polyp(s), or other lesion(s) by snare technique 45501, 59, Esophagogastroduodenoscopy, flexible, transoral; with biopsy, single or multiple 86409, 26, Endoscopic catheterization of the biliary ductal system, radiological supervision and interpretation CPT copyright 2021 [employer]. All rights reserved. The codes documented in this report are preliminary and upon cpc coder review may be revised to meet current compliance requirements. Denton Morgan DO 07/26/2024 1:22:09 PM This report has been signed electronically. Number of Addenda: 0 Note Initiated On: 07/26/2024 12:22 PM
--- NOTE | 2024-07-26 13:22 | OP.CCLET_ITS ---
07/26/2024 Mikael Ramires [address] [place] [address] [place] [address] Re : ERCP procedure for China Beltran Dear Dr. Ramires This procedure was performed on June. My impressions and recommendations are as follows: Impressions : - Multiple gastric polyps. - Biopsies were taken with a cold forceps for histology on the anterior wall of the gastric antrum. - Hemostasis in the stomach with a hot snare was performed. - Two gastric polyps. - Polypectomy was performed. - The entire biliary tree was moderately dilated, with a stone causing an obstruction. - Choledocholithiasis was found. Complete removal was accomplished by biliary sphincterotomy and balloon extraction. - A biliary sphincterotomy was performed. - The biliary tree was swept. - One stent was removed from the biliary tree. Recommendations : My findings are described in the full procedure note, which is enclosed. If I can be of further assistance, please feel free to contact me at . Sincerely, Denton Morgan, 07/26/2024 1:22:09 PM This report has been signed electronically.
--- NOTE | 2024-07-26 13:23 | PCM.POST.ANE ---
Anesthesia: Postop Eval I Current Vital Signs Temperature: 98.1 F Pulse Rate: 64 Blood Pressure: 88/48 Respiratory Rate: 16 Pulse Ox: 94 Oxygen Delivery Method: Room Air Assessment Airway patent: Yes Spontaneous unlabored respirations: Yes Mental status: Asleep nausea: No Vomiting: No Anesthesia Complication: No Fluid Hydration Crystalloid volume administer (ml): 30 Total IV fluid infused: 30 Progress Note Anesthesia document: Postop Eval 1 completed: Yes
--- NOTE | 2024-07-26 23:28 | PCM.POSTANE2 ---
Anesthesia Postop Eval I Sum Postop Eval Completion status Anesthesia document: Postop Eval 1 completed: Yes Anesthesia Postop Eval I Summary Anesthesia Postop Eval I Summary: Anesthesia Postop Eval I: Assessment Summary Airway patent Yes 07/26/24 13:24 [email or web address] Spontaneous unlabored Yes 07/26/24 13:24 [email or web address] respirations Mental status Asleep 07/26/24 13:24 [email or web address] nausea No 07/26/24 13:24 [email or web address] Vomiting No 07/26/24 13:24 [email or web address] Anesthesia Postop Eval I: Fluid Summary Crystalloid volume administer 30 07/26/24 13:24 [email or web address] (ml) Colloids volume administered ( ml) Blood Product volume administered (ml) Total IV fluid infused 30 07/26/24 13:24 [email or web address] Anesthesia Postop Eval I: Summary Notes Anesthesia Complication No 07/26/24 13:24 [email or web address] Anesthesia Complication Comment: Post-operative progress note Anesthesia: Postop Eval II Evaluation Mental status: Awake and Calm Pain Level: 0 nausea: No Vomiting: No Complications Anesthesia Complication: No
== END 2024-07-26 14:28 | disposition home or self-care (01) ==
LOC: EN 11:18 → AC 11:23
PROVIDERS: PCP Family Medicine; Referring Provider Family Medicine; Visit Provider Internal Medicine Gastroenterology
PROC: (CPT 43260; principal; 2024-07-26 11:55)
DX: Z46.59 Encounter for fitting and adjustment of other gastrointestinal appliance and device (principal); K80.51 Calculus of bile duct without cholangitis or cholecystitis with obstruction; K21.9 Gastro-esophageal reflux disease without esophagitis; I10 Essential (primary) hypertension; Z90.49 Acquired absence of other specified parts of digestive tract; K31.7 Polyp of stomach and duodenum; I25.10 Atherosclerotic heart disease of native coronary artery without angina pectoris; E78.00 Pure hypercholesterolemia, unspecified; Z79.899 Other long term (current) drug therapy; J45.909 Unspecified asthma, uncomplicated; E03.9 Hypothyroidism, unspecified; Z79.890 Hormone replacement therapy
CPT/HCPCS: 43262; 43251; 43264; 43275; 43239; 74330; 76000; 88108; 88304; 88305; 88313; 88342; 93005; A4216; J2405

== ENCOUNTER 2024-07-31 05:42 | Day surgery (SDC) | payer MEDICARE, SELFPAY ==
[2023-10-10 14:22] VITALS: BMI 38.3
--- NOTE | 2024-07-19 20:18 | PAT.ANESEVAL ---
Pre-Assessment Diagnosis/Proposed Procedure Planned Operative Procedure(s): RIGHT MIDDLE FINGER A1 NELSON RELEASE Anesthesia History Anesthesia History - geosciences professor: Anesthesia History - geosciences professor Hx Hospitalization Yes: 03/202407/19/24 14:49 Any Problems With Anesthesia Yes: NAUSEA 07/19/24 14:49 Cholinesterase deficiency No 07/19/24 14:49 You/Your Family Experience No 07/19/24 14:49 fever (hyperthermia) with Relationship Recent Exposure to Contagious No 04/24/24 12:20 Disease Does patient have nerve No 07/19/24 14:49 stimulator Patient instructed to have device shut off --Does patient have Pacemaker or ICD? When Was Last Pacemaker Check QUESTION #4 FULL TEXT: You/Your Family Experience fever (hyperthermia) with Anesthesia Last Oral Intake Last Oral intake: Last Oral Intake NPO since Meds taken in AM with sips of water? Meds patient instructed to take am of surgery PONV PONV - geosciences professor: PONV - geosciences professor Female Yes 07/19/24 14:49 HX of Motion Sickness Yes 07/19/24 14:49 HX of N/V After Surgery No 07/19/24 14:49 Non-Smoker Yes 07/19/24 14:49 Duration of Surgery greater No 07/19/24 14:49 than 60 minutes Number of Risk Factors 3 07/19/24 14:49 PONV Score Moderate Risk 07/19/24 14:49 Height & Weight Height & Weight: Anesthesia: Height & Weight Height 5 ft 1 in 04/24/24 12:20 Respiratory Assessment Respiratory Assessment - geosciences professor: Respiratory Tract Infection Hx - geosciences professor Hx Respiratory Tract Infection No 07/19/24 14:49 STOP Sleep Apnea STOP Sleep Apnea - geosciences professor: STOP Sleep Apnea - geosciences professor Hx Hypertension Yes: controlled with med 07/19/24 14:49 Hx Sleep Apnea No 07/19/24 14:49 CPAP No 07/19/24 14:49 BIPAP Do you snore loudly (louder No 07/19/24 14:49 than talking or can be heard Do you often feel tired/ Yes 07/19/24 14:49 fatigued/ sleepy during daytime? Has anyone observed you stop No 07/19/24 14:49 breathing during sleep? STOP Results Positive 07/19/24 14:49 QUESTION #5 FULL TEXT : Do you snore loudly (louder than talking or can be heard through closed doors)? Tobacco Use History Tobacco Use History - geosciences professor: Tobacco Use History - geosciences professor Tobacco Use Smoking Status Never smoker 07/19/24 14:49 Hx Tobacco Use No 07/19/24 14:49 Years Smoking Packs Smoked per Day Smoking Cessation Date was within the last 15 years Hx Smoking Cessation Date Hx Smoking Cessation Counseling Hematologic Medial History Hematologic Hx - geosciences professor: Hematologic Medical Hx - transport medic Hx of Blood Transfusion No 07/19/24 14:49 Hx of Transfusion in last 3 No 07/19/24 14:49 Months Date of Last Transfusion (if within last 3 months) Ever experience any problems No 07/19/24 14:49 with transfusion(s)? Specify any problems Hx of Preganancy in last 3 No 07/19/24 14:49 Months Nurse Filling Out Transfusion DSCHRIBER 07/19/24 14:49 & Questions: Date: 07/19/24 07/19/24 14:49 Time: 14:50 07/19/24 14:49 Patient unable to answer at this time (ie. confused, unrespo /Reproduction History /Reproductive History - geosciences professor: /Reproductive Hx- geosciences professor Hx Now No 07/19/24 14:49 Gestational Age (in weeks): EDC: Hx Hx Para Hx Section SAB No 07/19/24 14:49 PFSH Medical History Wears glasses Post-menopausal Rheumatoid arthritis Ambulates with cane Polymyalgia rheumatica High cholesterol Giant cell arteritis Ulcerative colitis Non-smoker History of atrial fibrillation History of echocardiogram History of stress test Cardiology follow-up encounter Hypertension CAD (coronary artery disease) COVID-19 (~06/2021) History of coronary artery disease Monoclonal gammopathy of unknown significance (MGUS) Monoclonal gammopathy Temporal arteritis Osteoarthritis of left shoulder Asthma HLD (hyperlipidemia) HTN (hypertension) Atherosclerotic heart disease of [place] coronary artery without angina pectoris Acute ST elevation myocardial infarction GERD (gastroesophageal reflux disease) Hypothyroidism M?ni?re's disease Retinal tear of left eye Ulnar neuropathy Polyclonal gammopathy IBS (irritable bowel syndrome) Vitamin D deficiency Osteopenia Incontinence Knee pain PVC's (premature ventricular contractions) SOB (shortness of breath) Arthritis Home Medications ?Medication ?Instructions ?Recorded ?Last Taken ?Type levothyroxine 50 mcg tablet 50 mcg PO DAILY Thyroid 12/31/16 07/29/24 History acetaminophen 500 mg tablet 500 - 1,000 mg PO DAILY PRN PRN 08/06/20 08/01/20 History Pain 1-10 Or Fever potassium chloride 20 mEq 20 meq PO DAILY supplement 09/22/20 07/29/24 History tablet,extended release(part/cryst) omeprazole 40 mg capsule,delayed 40 mg PO BID gerd 08/05/21 07/30/24 History release atorvastatin 80 mg tablet 80 mg PO QHS cholesterol 08/08/21 07/30/24 History hydrochlorothiazide 25 mg tablet 25 mg PO DAILY diuretic 08/28/21 07/29/24 History cholecalciferol (vitamin D3) 50 2,000 unit PO DAILY SUPPLEMENT 04/05/22 07/29/24 History mcg (2,000 unit) capsule metoprolol tartrate 50 mg tablet 50 mg PO BID BP #180 tabs 09/28/23 07/30/24 Rx mecobalamin (vitamin B12) 1,000 1,000 mcg sublingual DAILY 10/26/23 04/13/24 History mcg disintegrating supplement tablet,sublingual losartan 25 mg tablet 25 mg PO DAILY blood pressure #90 06/18/24 07/29/24 Rx tabs Allergy/AdvReac Type Severity Reaction Status Date / Time clarithromycin (From Biaxin) Allergy Rash Verified 07/19/24 14:40 sulfamethoxazole (From Allergy Rash Verified 07/19/24 14:40 Bactrim) trimethoprim (From Bactrim) Allergy Rash Verified 07/19/24 14:40 carvedilol (From Coreg) AdvReac Intermediate Nausea, Verified 07/19/24 14:40 Lightheaded codeine AdvReac Upset Verified 07/19/24 14:40 Stomach lisinopril AdvReac cough Verified 07/19/24 14:40 Penicillins AdvReac Other Verified 07/19/24 15:27 Family History Mother Cancer skin Anemia Father Cancer Heart disease Surgical History History of ERCP Hx laparoscopic cholecystectomy S/P cholecystectomy History of cataract extraction with lens replacement History of coronary artery stent placement History of cardiac catheterization History of temporal artery biopsy (~12/2018) History of delivery Stented coronary artery (06/20/18) History of dilatation and curettage Hx of breast biopsy Hx of tonsillectomy Social History Smoking Status: Never smoker alcohol intake: never substance use type: does not use caffeine: No Recommendation Anesthesia Recommendation Anesthesia recommendation: OPTIMIZED for anesthesia
[2024-07-31] VITALS (8 sets, daily range): BP systolic 105–114; BP diastolic 51–63; PULSE 65–71; RESP 16–20; TEMP 36.2–36.6; O2SAT 92–98; BMI 32.4
--- NOTE | 2024-07-31 06:52 | PCM.PRE.AN2 ---
ASA Classification* ASA Classification ASA Classification: 3 Assessment & Plan Anesthesia* Anesthesia Assessment Anesthesia Assessment: Discussed sedation and/or anesthesia options, risks, benefits, and alternatives with patient/parents/legal guardian/POA. Questions invited. The patient/parents/legal guardian/POA seems to understand and agrees to proceed with anesthesia plan. Reviewed the physical assessment, medical history, allergy history and patient home medications list prior to surgery/procedure/anesthetic and documented any changes. Performed airway and anesthesia risk assessments. Anesthesia Type Anesthesia Type: MAC History Source History Obtained from:: Patient and Chart Anesthesia Focused Assessment* Temperature: 97.5 F Pulse Rate: 65 Blood Pressure: 114/52 Respiratory Rate: 16 Pulse Ox: 98 Oxygen Delivery Method: Room Air Airway Assessment Mouth opens: >3 cm Mallampati Score: II Teeth Condition: Caps/Crowns (Patient has 3 crowns. They are all tight.) Neck Range of motion (ROM): Limited ROM (Somewhat decreased extension) Focused Labs Anesthesia Preop lab: CBC WBC 7.2 K/mm3 (4.4-11.0) 04/18/24 05:15 04/18/24 RBC 3.79 M/mm3 (4.2-5.4) L 04/18/24 05:15 04/18/24 Hgb 10.0 g/dL (12.0-15.0) L 04/18/24 05:15 04/18/24 Hct 32.0 % (37-47) L 04/18/24 05:15 04/18/24 Plt Count 184 K/mm3 (150-450) 04/18/24 05:15 04/18/24 CHEMISTRY Potassium 3.5 mmol/L (3.5-5.1) 04/18/24 05:15 04/18/24 Sodium 139 mmol/L (136-145) 04/18/24 05:15 04/18/24 Magnesium 1.9 mg/dL (1.6-2.6) 04/17/24 06:03 04/17/24 Phosphorus 2.9 mg/dL (2.5-4.9) 04/17/24 06:03 04/17/24 BUN 13 mg/dL (7-18) 04/18/24 05:15 04/18/24 Creatinine 0.59 mg/dL (0.55-1.02) 04/18/24 05:15 04/18/24 Glucose 121 mg/dL (74-106) H 04/18/24 05:15 04/18/24 POC Glucose 117 mg/dL (70-110) H 06/21/18 06:54 06/21/18 TSH 1.060 uIU/mL (0.358-3.740) 04/16/24 06:04 04/16/24 COAG PT 13.9 SECONDS (11.7-14.9) 04/16/24 06:04 04/16/24 Pre-Assessment Diagnosis/Proposed Procedure Planned Operative Procedure(s): RIGHT MIDDLE FINGER A1 NELSON RELEASE Anesthesia History Anesthesia History - permastone installer: Anesthesia History - permastone installer Hx Hospitalization Yes: 03/202407/19/24 15:03 Any Problems With Anesthesia Yes: NAUSEA 07/19/24 15:03 Cholinesterase deficiency No 07/19/24 15:03 You/Your Family Experience No 07/19/24 15:03 fever (hyperthermia) with Relationship Recent Exposure to Contagious No 07/31/24 06:25 Disease Does patient have nerve No 07/19/24 15:03 stimulator Patient instructed to have device shut off --Does patient have Pacemaker No 07/31/24 06:27 or ICD? When Was Last Pacemaker Check QUESTION #4 FULL TEXT: You/Your Family Experience fever (hyperthermia) with Anesthesia Last Oral Intake Last Oral intake: Last Oral Intake NPO since 00:00 07/31/24 06:27 Meds taken in AM with sips of water? Meds patient instructed to take am of surgery PONV PONV - permastone installer: PONV - permastone installer Female Yes 07/19/24 14:49 HX of Motion Sickness Yes 07/19/24 14:49 HX of N/V After Surgery No 07/19/24 14:49 Non-Smoker Yes 07/19/24 14:49 Duration of Surgery greater No 07/19/24 14:49 than 60 minutes Number of Risk Factors 3 07/19/24 14:49 PONV Score Moderate Risk 07/19/24 14:49 Height & Weight Height & Weight: Anesthesia: Height & Weight Height 5 ft 1 in 07/31/24 06:27 Weight: 77.9 kg 07/31/24 06:27 Body Mass Index (BMI) 32.4 07/31/24 06:27 Respiratory Assessment Respiratory Assessment - permastone installer: Respiratory Tract Infection Hx - permastone installer Hx Respiratory Tract Infection No 07/19/24 15:03 STOP Sleep Apnea STOP Sleep Apnea - permastone installer: STOP Sleep Apnea - permastone installer Hx Hypertension Yes: controlled with med 07/19/24 15:03 Hx Sleep Apnea No 07/19/24 15:03 CPAP No 07/26/24 13:17 BIPAP Do you snore loudly (louder No 07/19/24 14:49 than talking or can be heard Do you often feel tired/ Yes 07/19/24 14:49 fatigued/ sleepy during daytime? Has anyone observed you stop No 07/19/24 14:49 breathing during sleep? STOP Results Positive 07/19/24 14:49 QUESTION #5 FULL TEXT : Do you snore loudly (louder than talking or can be heard through closed doors)? Tobacco Use History Tobacco Use History - permastone installer: Tobacco Use History - permastone installer Tobacco Use Smoking Status Never smoker 07/19/24 15:03 Hx Tobacco Use No 07/19/24 15:03 Years Smoking Packs Smoked per Day Smoking Cessation Date was within the last 15 years Hx Smoking Cessation Date Hx Smoking Cessation Counseling Hematologic Medial History Hematologic Hx - permastone installer: Hematologic Medical Hx - digital analyst Hx of Blood Transfusion No 07/19/24 14:49 Hx of Transfusion in last 3 No 07/19/24 14:49 Months Date of Last Transfusion (if within last 3 months) Ever experience any problems No 07/19/24 14:49 with transfusion(s)? Specify any problems Hx of Preganancy in last 3 No 07/19/24 14:49 Months Nurse Filling Out Transfusion DSCHRIBER 07/19/24 14:49 & Questions: Date: 07/19/24 07/19/24 14:49 Time: 14:50 07/19/24 14:49 Patient unable to answer at this time (ie. confused, unrespo /Reproduction History /Reproductive History - permastone installer: /Reproductive Hx- permastone installer Hx Now No 07/19/24 14:49 Gestational Age (in weeks): EDC: Hx Hx Para Hx Section SAB No 07/19/24 15:03 Active Medications Active Medications: Current Medications Generic Name Dose Route Start Last Admin Trade Name Miguel Angel PRN Reason Stop Dose Admin Cefazolin Sodium 2 gm/ N/A 20 mls @ 400 mls/hr 07/31/24 07:30 IV 07/31/24 07:32 PREOP ONE [facility] Medical History Wears glasses Post-menopausal Rheumatoid arthritis Ambulates with cane Polymyalgia rheumatica High cholesterol Giant cell arteritis Ulcerative colitis Non-smoker History of atrial fibrillation History of echocardiogram History of stress test Cardiology follow-up encounter Hypertension CAD (coronary artery disease) COVID-19 (~06/2021) History of coronary artery disease Monoclonal gammopathy of unknown significance (MGUS) Monoclonal gammopathy Temporal arteritis Osteoarthritis of left shoulder Asthma HLD (hyperlipidemia) HTN (hypertension) Atherosclerotic heart disease of [place] coronary artery without angina pectoris Acute ST elevation myocardial infarction GERD (gastroesophageal reflux disease) Hypothyroidism M?ni?re's disease Retinal tear of left eye Ulnar neuropathy Polyclonal gammopathy IBS (irritable bowel syndrome) Vitamin D deficiency Osteopenia Incontinence Knee pain PVC's (premature ventricular contractions) SOB (shortness of breath) Arthritis Home Medications ?Medication ?Instructions ?Recorded ?Last Taken ?Type levothyroxine 50 mcg tablet 50 mcg PO DAILY Thyroid 12/31/16 07/29/24 History acetaminophen 500 mg tablet 500 - 1,000 mg PO DAILY PRN PRN 08/06/20 08/01/20 History Pain 1-10 Or Fever potassium chloride 20 mEq 20 meq PO DAILY supplement 09/22/20 07/29/24 History tablet,extended release(part/cryst) omeprazole 40 mg capsule,delayed 40 mg PO BID gerd 08/05/21 07/30/24 History release atorvastatin 80 mg tablet 80 mg PO QHS cholesterol 08/08/21 07/30/24 History hydrochlorothiazide 25 mg tablet 25 mg PO DAILY diuretic 08/28/21 07/29/24 History cholecalciferol (vitamin D3) 50 2,000 unit PO DAILY SUPPLEMENT 04/05/22 07/29/24 History mcg (2,000 unit) capsule metoprolol tartrate 50 mg tablet 50 mg PO BID BP #180 tabs 09/28/23 07/30/24 Rx mecobalamin (vitamin B12) 1,000 1,000 mcg sublingual DAILY 10/26/23 04/13/24 History mcg disintegrating supplement tablet,sublingual losartan 25 mg tablet 25 mg PO DAILY blood pressure #90 06/18/24 07/29/24 Rx tabs Allergy/AdvReac Type Severity Reaction Status Date / Time clarithromycin (From Biaxin) Allergy Rash Verified 07/19/24 14:40 sulfamethoxazole (From Allergy Rash Verified 07/19/24 14:40 Bactrim) trimethoprim (From Bactrim) Allergy Rash Verified 07/19/24 14:40 carvedilol (From Coreg) AdvReac Intermediate Nausea, Verified 07/19/24 14:40 Lightheaded codeine AdvReac Upset Verified 07/19/24 14:40 Stomach lisinopril AdvReac cough Verified 07/19/24 14:40 Penicillins AdvReac Other Verified 07/19/24 15:27 Family History Mother Cancer skin Anemia Father Cancer Heart disease Surgical History History of ERCP Hx laparoscopic cholecystectomy S/P cholecystectomy History of cataract extraction with lens replacement History of coronary artery stent placement History of cardiac catheterization History of temporal artery biopsy (~12/2018) History of delivery Stented coronary artery (06/20/18) History of dilatation and curettage Hx of breast biopsy Hx of tonsillectomy Social History Smoking Status: Never smoker alcohol intake: never substance use type: does not use caffeine: No Review of Systems (Anesthesia) ROS Narrative System reviewed and no additional complaints, except as documented.
--- NOTE | 2024-07-31 07:03 | PCM.HP.BLA ---
History and Physical Date of Admission: 07/31/24 [facility] [address] [place] [address] OFFICE VISIT Date of Service: 07/04/24 MR#: [id number] Acct: [id number] Name: CHELSEY TOLLIVER Rep #: [id number] : 1950 Provider: Dr. Raj Walker DO Age/Sex: 73/F Location: [facility] Status: Signed Intake Vital Signs 04/24/2412:20 Height 5 ft 1 in Intake Visit Reasons: RIGHT HAND Chief Complaint: post cholecystectomy Allergies clarithromycin (From Biaxin) Allergy (Verified 07/04/24 11:30) Rashsulfamethoxazole (From Bactrim) Allergy (Verified 07/04/24 11:30) Rashtrimethoprim (From Bactrim) Allergy (Verified 07/04/24 11:30) Rashcarvedilol (From Coreg) Adverse Reaction (Intermediate, Verified 07/04/24 11:30) Nausea, Lightheadedcodeine Adverse Reaction (Verified 07/04/24 11:30) Upset Stomachlisinopril Adverse Reaction (Verified 07/04/24 11:30) coughPenicillins Adverse Reaction (Verified 07/04/24 11:30) Other Medications ?Medication ?Instructions ?Recorded ?Confirmed ?Type levothyroxine 50 mcg tablet 50 mcg PO DAILY Thyroid 12/31/16 07/04/24 History acetaminophen 500 mg tablet 500 - 1,000 mg PO DAILY PRN PRN 08/06/20 07/04/24 History Pain 1-10 Or Fever potassium chloride 20 mEq 20 meq PO DAILY supplement 09/22/20 07/04/24 History tablet,extended release(part/cryst) omeprazole 40 mg capsule,delayed 40 mg PO DAILY gerd 08/05/21 07/04/24 History release atorvastatin 80 mg tablet 80 mg PO QHS cholesterol 08/08/21 07/04/24 History hydrochlorothiazide 25 mg tablet 25 mg PO DAILY diuretic 08/28/21 07/04/24 History cholecalciferol (vitamin D3) 50 2,000 unit PO DAILY SUPPLEMENT 04/05/22 07/04/24 History mcg (2,000 unit) capsule metoprolol tartrate 50 mg tablet 50 mg PO BID this is a dose 04/03/24 01/08/25 Rx increase #180 tabs mecobalamin (vitamin B12) 1,000 1,000 mcg sublingual DAILY 10/26/23 07/04/24 History mcg disintegrating supplement tablet,sublingual losartan 25 mg tablet 25 mg PO DAILY blood pressure #90 06/18/24 07/04/24 Rx tabs Have you fallen in the past year?: No PFSH Medical History Wears glasses Post-menopausal Thyroid disease Rheumatoid arthritis Ambulates with cane Polymyalgia rheumatica High cholesterol Giant cell arteritis Ulcerative colitis Non-smoker History of atrial fibrillation History of echocardiogram History of stress test Cardiology follow-up encounter Hypertension CAD (coronary artery disease) COVID-19 (~06/2021) History of ID (myocardial infarction) History of coronary artery disease Essential hypertension Monoclonal gammopathy of unknown significance (MGUS) Monoclonal gammopathy Temporal arteritis Osteoarthritis of left shoulder Asthma HLD (hyperlipidemia) HTN (hypertension) Atherosclerotic heart disease of teller coronary artery without angina pectoris Acute ST elevation myocardial infarction GERD (gastroesophageal reflux disease) Hypothyroidism M?ni?re's disease Retinal tear of left eye Ulnar neuropathy Polyclonal gammopathy GERD (gastroesophageal reflux disease) IBS (irritable bowel syndrome) Vitamin D deficiency Osteopenia Incontinence Knee pain PVC's (premature ventricular contractions) SOB (shortness of breath) Arthritis Surgical History S/P cholecystectomy History of cataract extraction with lens replacement History of coronary artery stent placement History of cardiac catheterization History of ERCP History of temporal artery biopsy (~12/2018) History of delivery Stented coronary artery (06/20/18) History of dilatation and curettage Hx of breast biopsy Hx of tonsillectomy Family History Mother Cancer skin AnemiaFather Cancer Heart disease Social History Smoking Status: Never smoker alcohol intake: never substance use type: does not use caffeine: No HPI RIGHT HAND Details: This documentation accurately reflects the service provided and the decisions made by me, Dr. Raj Walker, DO 07/04/24 0820. Part of today?s visit was documented by Latosha TRAN, acting as scribe. CHELSEY TOLLIVER is a 73 year old F here today for her right middle finger trigger finger. She states that just this morning her finger locked on her and she had to use her other hand to straighten it. Her pain in in the middle finger and in her pal. She would like to discuss having another injection vs. having surgery. She last had an injection on 12/19/23 which gave her a relief up until about a month ago. 12/19/2023 visit: here today for right middle finger trigger finger . locked up and she has to push on it. This has been going on for a month and half. states she has pain that is shooting down her arm until mid forearm that comes and goes. Patient will take a Tylenol when the pain is really bad. Patient is suppose to have Physical therapy in December for her back. No injury to her hand or finger. Hx of breaking right ring finger. plan: Right middle finger trigger finger patient has had for little over a month no injury we discussed options including injection and A1 franci release as well as night bracing. She does wish to proceed with A1 franci injection today she tolerated this well she was counseled on risk of recurrence about 50% and risk to tendon injury with steroid injections. Ortho Exam General General: Yes no acute distress Neurologic: Yes alert and Yes oriented x3 Psychologic: Yes reasonable and appropriate Right Wrist/Hand Skin/Wound: No Swelling, No Ecchymosis, Yes nail intact and Yes capillary refill normal WRIST: palpable triggering Hypertrophied and tender A1 franci of the middle digit slight ulnar bow to middle finger Left Wrist/Hand Skin/Wound: No Swelling and No Ecchymosis Head: Normocephalic Atraumatic Chest: symmetrical rise, non-labored breathing, no audible wheeze Abdomen: no guarding, non-rigid Supplemental Info 09/29/2020 x-ray right hip sclerosis of superior acetabulum 08/14/2018 left thumb x-ray moderate to severe first [facility] joint arthritis Coding Level of Care Code Off vis,est,level 4 Diagnoses Trigger middle finger of right hand M65.331 Trigger finger location: middle finger Assessment and Plan Assessment and Plan (1) Trigger finger of right hand: Status: Acute Qualifiers: Trigger finger location: middle finger Qualified Code(s): M65.331 - Trigger finger, right middle finger Plan Patient is here today for right middle finger trigger finger. Her last injection on 12/19/23 did completely take away her pain and triggering up until about a month ago. I spoke with patient that if she were to have it released she would have weight restrictions for 3 weeks. I did probation counselor her on risk of recurrence about 50% with injection much less with surgery and risk to tendon injury with steroid injections. I advised patient that the surgery will not help the curvature of her finger or prevent it from getting any worse that is unrelated. Tentative surgery date 09/28/2024. Follow up at 2 weeks post-op or sooner if pain, swelling, numbness or associated symptoms, or concerns develop. All questions answered. Patient in agreement of plan. Clinical Quality Measures Falls Risk Screening/Assistive Devices Have you fallen in the past year?: No 07/04/24 1312 <Electronically signed by Raj Walker DO> Date Raj Walker DO Cosigner Signature: Date (if applicable) CC: ~ I have examined the patient and the H&P has been reviewed. There are no clinical changes since date of exam.
[2024-07-31] MEDS: Cefazolin 2 GM in Syringe IV (07:33)
[2024-07-31] MEDS: Lidocaine 1% /Epi 1:100 (20ml) 20 ML Vial (07:46)
--- NOTE | 2024-07-31 07:54 | OP.PCM_ITS ---
Operative Report (Standard) Operative Information Date of Procedure: 07/31/24 Pre-Operative Diagnosis: Right middle finger trigger finger Post-Operative Diagnosis: Same Surgery/Procedure Performed: Right middle finger A1 franci release team leader/research psychologist: Yes Rotor Casting Machine Operator: Robert Bowens Tasks completed by customer assistance associate: Opening & closing Type of Anesthesia: Local and MAC RN Documented Start/Stop Times: Operation Date: 07/31/24 07:30 Case Time Into Pre-Op 07/31/24 06:00 Out of Pre-Op 07/31/24 07:21 Anesthesia Start 07/31/24 07:25 Into Room 07/31/24 07:25 Procedure Start 07/31/24 07:40 Procedure End 07/31/24 07:50 Procedure Start Time: 07:40 Procedure Stop Time: 07:50 Select all DRAINS/GRAFTS/IMPLANTS that apply: None Estimated Blood Loss: 0 Specimen collected: No Description of surgery: Preoperative diagnosis; right middle digit trigger finger Postoperative diagnosis; same Procedure: Right middle digit A1 franci release Anesthesia: Local with MAC Tourniquet time; [10] minutes 250 mm Hg Complications: None Indication for procedure; This is a 74-year-old [female] with symptoms consistent with [trigger finger]. Risks benefits and alternatives were reviewed including risks of bleeding infection nerve tendon tissue damage need for further surgery and continued pain and symptoms, hypersensitivity to scar/i ncision and recurrence. Procedure; The patient was met in the preoperative holding area the operative extremity was identified by both patient and physician and was marked the patient was met by anesthesia and brought back to the operating room and transferred to the operating table in the supine position. Aanesthesia was started. A well-padded tourniquet was placed on the operative upper extremity. The patient was prepped and draped in the usual sterile fashion. A timeout was called to ensure the proper patient procedure and extremity were being contemplated. 0.5 percent Marcaine was injected into the incisional area. Esmarch was used tourniquet was inflated. 15 blade scalpel was used to make a longitudinal incision directly over the A1 rfanci was carried down through the subcutaneous tissue Dannielle retractors placed radial and ulnar protecting the digital nerves and a Ragnell retractor was used at the apex of the incision under direct visualization a deep blade scalpel was used to release the A1 franci. The wound was thoroughly irrigated and closed with 4-0 nylon vertical mattress edges. Dressing was applied in the form of Xeroform 4 x 4 web roll and an Olman wrap. Patient tolerated the procedure well was brought back to the PACU in stable condition. Surgical Findings: Thickened A1 franci Complications Complications: No
--- NOTE | 2024-07-31 07:55 | EX.PCM.DISCH ---
Discharge Instructions Diet Discharge Diet: No restrictions Dressing / Incision Call your doctor if you observe: Shortness of breath and Chest pain Additional Dressing/Incision Instructions:: Ice and elevate operative extremity next 72 hours. Keep dressing on clean and dry for 72 hours then may remove and allow warm soapy water to rinse over incision but do not submerge until sutures are out. Then apply bandaid over incision .wash incision and change bandage daily, may leave open to air after initial bandage removal as long as it is kept clean. encourage finger range of motion. Not lift more than 1/2 pound. Minimize narcotic use only as needed and directed, may use OTC NSAID and Tylenol to supplement/substitute for pain control. Follow Up Care Please Follow Up With: Raj Walker DO When: 2 weeks Test Results: Test results from this visit will be discussed in further detail at your follow-up appointment, if applicable. Discharge Plan Admission Primary Reason for Your Visit: Right middle finger A1 franci release Attending Provider: Raj Walker Primary Care Provider: Mikael Ramires Instructions Print Language: Mongolian Discharge Orders/Prescriptions Prescriptions: New oxycodone 5 mg tablet 2.5 - 5 mg PO Q4H PRN (Reason: pain) 3 Days Qty: 7 0RF No Action cholecalciferol (vitamin D3) 50 mcg (2,000 unit) capsule 2,000 unit PO DAILY mecobalamin (vitamin B12) 1,000 mcg tablet,disintegrating 1,000 mcg sublingual DAILY Rx Instructions: place tablet under tongue and allow to dissolve for at least30 secs before swallowing levothyroxine 50 MCG tablet 50 mcg PO DAILY potassium chloride 20 mEq tablet,ER particles/crystals 20 meq PO DAILY omeprazole 40 mg capsule,delayed release(DR/EC) 40 mg PO BID acetaminophen 500 MG tablet 500 - 1,000 mg PO DAILY PRN PRN (Reason: Pain 1-10 Or Fever) atorvastatin 80 mg tablet 80 mg PO QHS hydrochlorothiazide 25 mg tablet 25 mg PO DAILY metoprolol tartrate 50 mg tablet 50 mg PO BID Qty: 180 3RF losartan 25 mg tablet 25 mg PO DAILY Qty: 90 3RF Referrals / Follow Up: Mikael Ramires DO [Primary Care Provider] - Disposition Disposition (needs filled in before D/C Order can be placed): Home, Self Care
--- NOTE | 2024-07-31 07:59 | PCM.POST.ANE ---
Anesthesia: Postop Eval I Current Vital Signs Temperature: 97.9 F Pulse Rate: 71 Blood Pressure: 111/53 Respiratory Rate: 20 Pulse Ox: 94 Assessment Airway patent: Yes Spontaneous unlabored respirations: Yes nausea: No Vomiting: No Anesthesia Complication: No Fluid Hydration Crystalloid volume administer (ml): 20 Total IV fluid infused: 20 Progress Note Anesthesia document: Postop Eval 1 completed: Yes
--- NOTE | 2024-07-31 10:34 | POSTOPAN2_ITS ---
Anesthesia Postop Eval I Sum Postop Eval Completion status Anesthesia document: Postop Eval 1 completed: Yes Anesthesia Postop Eval I Summary Anesthesia Postop Eval I Summary: Anesthesia Postop Eval I: Assessment Summary Airway patent Yes 07/31/24 07:59 [email or web address] Spontaneous unlabored Yes 07/31/24 07:59 [email or web address] respirations Mental status nausea No 07/31/24 07:59 [email or web address] Vomiting No 07/31/24 07:59 [email or web address] Anesthesia Postop Eval I: Fluid Summary Crystalloid volume administer 20 07/31/24 07:59 [email or web address] (ml) Colloids volume administered ( ml) Blood Product volume administered (ml) Total IV fluid infused 20 07/31/24 07:59 [email or web address] Anesthesia Postop Eval I: Summary Notes Anesthesia Complication No 07/31/24 07:59 [email or web address] Anesthesia Complication Comment: Post-operative progress note Anesthesia: Postop Eval II Evaluation Mental status: Awake and Calm Pain Level: 0 nausea: No Vomiting: No
--- NOTE | 2024-07-31 10:34 | PCM.POSTANE2 ---
Anesthesia Postop Eval I Sum Postop Eval Completion status Anesthesia document: Postop Eval 1 completed: Yes Anesthesia Postop Eval I Summary Anesthesia Postop Eval I Summary: Anesthesia Postop Eval I: Assessment Summary Airway patent Yes 07/31/24 07:59 [email or web address] Spontaneous unlabored Yes 07/31/24 07:59 MEDICAL [email or web address] respirations Mental status nausea No 07/31/24 07:59 [email or web address] Vomiting No 07/31/24 07:59 [email or web address] Anesthesia Postop Eval I: Fluid Summary Crystalloid volume administer 20 07/31/24 07:59 MEDICAL [email or web address] (ml) Colloids volume administered ( ml) Blood Product volume administered (ml) Total IV fluid infused 20 07/31/24 07:59 [email or web address] Anesthesia Postop Eval I: Summary Notes Anesthesia Complication No 07/31/24 07:59 [email or web address] Anesthesia Complication Comment: Post-operative progress note Anesthesia: Postop Eval II Evaluation Mental status: Awake and Calm Pain Level: 0 nausea: No Vomiting: No
== END 2024-07-31 09:25 | disposition home or self-care (01) ==
LOC: SDC 05:44 → AC 05:45
PROVIDERS: PCP Family Medicine; Referring Provider Orthopaedic Surgery; Visit Provider Orthopaedic Surgery
PROC: (CPT 26055; principal; 2024-07-31 07:20)
DX: M65.331 Trigger finger, right middle finger (principal); K21.9 Gastro-esophageal reflux disease without esophagitis; I10 Essential (primary) hypertension; I25.10 Atherosclerotic heart disease of native coronary artery without angina pectoris; Z90.49 Acquired absence of other specified parts of digestive tract; E78.00 Pure hypercholesterolemia, unspecified; J45.909 Unspecified asthma, uncomplicated; Z79.899 Other long term (current) drug therapy; E03.9 Hypothyroidism, unspecified; Z79.890 Hormone replacement therapy
CPT/HCPCS: 26055; 01810; A4216

== ENCOUNTER → 2024-09-13 | Outpatient (CLI) | payer MEDICARE, SELFPAY ==
[2023-10-10 14:22] VITALS: BMI 38.3
[2024-09-13 17:53] LABS: Absolute Lymphocyte Count 1.51 X10^3/uL (0.83-4.51); Basophil# 0.04 X10^3/uL; Basophil% 0.6 % (0-1); Eosinophil# 0.11 X10^3/uL; Eosinophils% 1.8 % (0-5); Hematocrit 35.5 % (37-47); Hemoglobin 11.2 g/dL (12.0-15.0); Lymphocyte # 1.51 X10^3/ul (0.83-4.51); Lymphocyte % 24.2 % (19-41); Mean Corp Hgb Conc 31.5 g/dL (32-36); Mean Corpuscular Hgb 26.2 pg (27.0-32.0); Mean Corpuscular Volume 82.9 fL (81-99); Mean Platelet Vol. 11.6 fl (6.2-12.0); Monocyte# 0.59 X10^3/uL; Monocyte% 9.4 % (0-10); NRBC Flagged by Analyzer 0 % (0-5); Neutrophil # 3.98 X10^3/uL (2.7-7.7); Neutrophil % 63.7 % (47-70); Platelet Count 184 K/mm3 (150-450); RBC Distribution Width CV 14.6 % (11.6-14.6); RBC Distribution Width SD 43.4 fl (35.1-43.9); Red Blood Count 4.28 M/mm3 (4.2-5.4); White Blood Count 6.3 K/mm3 (4.4-11.0)
[2024-09-13 18:01] LABS: Erythrocyte Sedimentation Rate 34 mm/hr (0-30)
[2024-09-13 21:05] LABS: ALB/GLOB Ratio 1.4 RATIO (0.9-2.4); AST(SGOT) 19 U/L (<=31); Alanine Aminotransfer ALT/SGPT 15 U/L (<=34); Alkaline Phosphatase 150 U/L (35-104); Anion Gap 15 (5-15); BUN 12 mg/dL (4-19); BUN/Creat Ratio 16.7 RATIO (10-20); Calcium,Total 9.3 mg/dL (7.6-11.0); Carbon Dioxide 22.1 mmol/L (21.0-32.0); Chloride 101 mmol/L (98-108); Cholesterol 135 mg/dL (<=200); Creatinine, Serum 0.69 mg/dL (0.70-1.20); EST Glomerular Filtration Rate 91 (>60); Globulin 2.9 g/dL (2.2-4.2); Glucose 99 mg/dL (70-99); High Density Lipoprotein 69 mg/dL; Low Density Lipoprotein Calc. 47 mg/dL; Potassium 3.6 mmol/L (3.3-5.1); Protein, Total 6.9 g/dL (5.9-8.4); Sodium Level 138 mmol/L (133-145); Triglycerides 93 mg/dL; Very Low Density Lipoprotein 19 mg/dL (5-40); cholesterol:hdl ratio screen 1.96
[2024-09-13 21:09] LABS: CRP < 3.00 mg/L (0.0-3.0)
== END | disposition home or self-care (01) ==
LOC: BFHLAB 15:06
PROVIDERS: PCP Family Medicine; Visit Provider Family Medicine
DX: I10 Essential (primary) hypertension (principal); M35.3 Polymyalgia rheumatica; E03.9 Hypothyroidism, unspecified
CPT/HCPCS: 36415; 80053; 80061; 84439; 85025; 85652; 86140

== ENCOUNTER → 2025-01-01 | Outpatient (CLI) | payer MEDICARE, SELFPAY ==
[2023-10-10 14:22] VITALS: BMI 38.3
--- NOTE | 2025-01-01 13:50 | MRI_ITS ---
PROCEDURE: SPINE LUMBAR (ROUTINE) 01/01/2025 REASON FOR EXAM: PAIN TECHNIQUE: SPINE LUMBAR (ROUTINE) COMPARISON: 12-18-2023 CR FINDINGS: 1st degree anterolithesis of L4 over L5 and L5 over S1 with bilateral L4-L5 and L5-S1 arthropathy. No obvious vertebral fractures or structural collapse. Multilevel marginal lipping and subchondral degenerative marrow signal/Modio II of the thoraco-lumbar vertebral end plates. Multilevel reduced height and bright T2 signal of the intervertebral discs denoting their desiccation are noted. Multilevel ligamenta flava hypertrophy with multilevel degenerative facet arthropathy opposite L2-L3 down to L5-S1 adding to the central canal and neural foraminal stenosis. Level by level analysis: T12-L1: a 1 mm diffuse disc bulge indenting thecal sac and encroaching upon the related neural foramina inducing mild exiting nerve root compression. L1-L2: a 1 mm diffuse disc bulge indenting thecal sac and encroaching upon the related neural foramina inducing mild exiting nerve root compression. L2-L3: a 1 mm diffuse disc bulge indenting thecal sac and encroaching upon the related neural foramina inducing mild exiting nerve root compression. L3-L4: a 2.6 mm diffuse disc bulge indenting thecal sac and encroaching upon the related neural foramina inducing moderate exiting nerve root compression. L4-L5: a diffuse disc pseudo-bulge indenting thecal sac and encroaching upon the related neural foramina inducing marked exiting nerve root compression. L5-S1: a diffuse disc pseudo-bulge indenting thecal sac and encroaching upon the related neural foramina inducing marked exiting nerve root compression. The lower thoracic spinal cord, conus medullaris, and cauda equina nerve roots are unremarkable. No marrow infiltrative lesions. Paravertebral soft tissue is unremarkable. No developmental canal stenosis. Orthostatic edema of the back. MRI/Spine Lumbar (Routine) IMPRESSION: L4 and L5 1st degree anterolithesis. Lumbar spondylosis with multilevel discs pathologies, facet arthropathy and hyp ertrophied ligamenta flava inducing variable degrees of spinal canal and neural exit pathways stenosis, as detailed. Reading Location[facility] [address]
== END | disposition home or self-care (01) ==
PROVIDERS: PCP Family Medicine; Referring Provider Student in an Organized Health Care Education/Training Program; Visit Provider Student in an Organized Health Care Education/Training Program
DX: M43.16 Spondylolisthesis, lumbar region (principal); M51.360 Other intervertebral disc degeneration, lumbar region with discogenic back pain only
CPT/HCPCS: 72148

== ENCOUNTER → 2025-01-24 | Outpatient (CLI) | payer MEDICARE, SELFPAY ==
[2023-10-10 14:22] VITALS: BMI 38.3
[2025-01-24 12:37] LABS: Color, Urine Yellow (Yellow); Glucose, Dipstick Normal (Normal); Ketone-Dipstick Negative (Negative); Leukocyte Esterase-Dipstick 25 /ul (Negative); Nitrite-Dipstick Negative (Negative); Occult Blood-Urine 10 /ul (Negative); Protein-Dipstick 15 mg/dl (Negative); Specific Gravity, Urine 1.015 (1.002-1.030); Urine Bilirubin Dipstick Negative (Negative)
== END | disposition home or self-care (01) ==
LOC: LABSPEC 11:17
PROVIDERS: PCP Family Medicine; Visit Provider Family Medicine
DX: R39.15 Urgency of urination (principal)
CPT/HCPCS: 81002; 87086; 87088

== ENCOUNTER → 2025-03-05 | Outpatient (CLI) | payer MEDICARE, SELFPAY ==
[2023-10-10 14:22] VITALS: BMI 38.3
--- NOTE | 2025-03-05 15:55 | RAD_ITS ---
PROCEDURE: HIP, UNI W/ PELVIS 2-3 VIEWS 03/05/2025 REASON FOR EXAM: HIP PAIN TECHNIQUE: Procedure Code: [facility] Modality: DX Procedure: HIP, UNI W/ PELVIS 2-3 VIEWS Laterality: COMPARISON: 09/29/2020. FINDINGS: No evidence of acute fracture or dislocation. Severe right and mild left hip osteoarthrosis. Degenerative changes of the partially visualized spine. RAD/HIP, UNI W/ Pelvis 2-3 Views IMPRESSION: [id number]-left hip osteoarthrosis. Reading Location: [id number]
== END | disposition home or self-care (01) ==
LOC: RAD 15:38
PROVIDERS: PCP Family Medicine; Referring Provider Anesthesiology; Visit Provider Anesthesiology
DX: M25.551 Pain in right hip (principal)
CPT/HCPCS: 73502

== ENCOUNTER → 2025-04-02 | Outpatient (CLI) | payer MEDICARE, SELFPAY ==
[2023-10-10 14:22] VITALS: BMI 38.3
--- NOTE | 2025-04-02 15:08 | BI_ITS ---
EXAM: SCRN MAMM (CAD)W/ZACK BILAT DATE: 04/02/2025 CLINICAL HISTORY: F, Age 74 y/o , SCREENING TECHNIQUE: Procedure Code: BISMWCADBTOM Modality: MG Procedure: SCRN MAMM (CAD)W/ZACK BILAT COMPARISON: Prior exam(s) were compared FINDINGS: TISSUE DENSITY: There are scattered areas of fibroglandular density. Bilateral Breast Mammographic Findings: No suspicious masses, calcifications or other abnormalities are identified. BI/SCRN MAMM (CAD)W/ZACK BILAT IMPRESSION: No mammographic evidence of malignancy in either breast. OVERALL FINAL ASSESSMENT BI-RADS 1: NEGATIVE. RECOMMENDATION: Routine annual follow-up in 1 Year Additional Recommendation none A letter with findings and recommendations will be mailed to the patient. Reading Location: [id number]
--- NOTE | 2025-04-02 15:08 | BI_ITS ---
EXAM: SCRN MAMM (CAD)W/ZACK BILAT DATE: 04/02/2025 CLINICAL HISTORY: F, Age 74 y/o , SCREENING TECHNIQUE: Procedure Code: BISMWCADBTOM Modality: MG Procedure: SCRN MAMM (CAD)W/ZACK BILAT COMPARISON: Prior exam(s) were compared FINDINGS: TISSUE DENSITY: There are scattered areas of fibroglandular density. Bilateral Breast Mammographic Findings: No suspicious masses, calcifications or other abnormalities are identified. BI/SCRN MAMM (CAD)W/ZACK BILAT IMPRESSION: No mammographic evidence of malignancy in either breast. OVERALL FINAL ASSESSMENT BI-RADS 1: NEGATIVE. RECOMMENDATION: Routine annual follow-up in 1 Year Additional Recommendation none A letter with findings and recommendations will be mailed to the patient. Reading Location: [id number]
== END | disposition home or self-care (01) ==
LOC: OPBI 15:07
PROVIDERS: PCP Family Medicine; Referring Provider Family Medicine; Visit Provider Family Medicine
DX: Z12.31 Encounter for screening mammogram for malignant neoplasm of breast (principal)
CPT/HCPCS: 77063; 77067

== ENCOUNTER 2025-05-10 16:23 | Emergency (ER) | payer MEDICARE, SELFPAY ==
[2023-10-10 14:22] VITALS: BMI 38.3
[2025-05-10] VITALS (7 sets, daily range): BP systolic 98–115; BP diastolic 45–61; PULSE 61–76; RESP 16–23; TEMP 36.4–36.7; O2SAT 95–100; BMI 29.7
--- NOTE | 2025-05-10 16:36 | EKG12_ITS ---
Test Reason : NEAR SYNCOPE Blood Pressure : */* mmHG Vent. Rate : 58 BPM Atrial Rate : 58 BPM P-R Int : 156 ms QRS Dur : 70 ms QT Int : 448 ms P-R-T Axes : 52 2 22 degrees QTcB Int : 439 ms Sinus bradycardia Otherwise normal ECG Confirmed by HERMINIA KAY, ANGELA ([id number]), city editor GUERO MAGANA ([id number]) on 05/13/2025 8:20:45 AM Referred By: Confirmed By: ANGELA HOPE MD
--- NOTE | 2025-05-10 16:36 | RAD_ITS ---
PROCEDURE: CHEST PA AND LATERAL 05/10/2025 REASON FOR EXAM: LIGHTHEADED, CP TECHNIQUE: Procedure Code: RADCXR Modality: DX Procedure: CHEST PA AND LATERAL COMPARISON: None available. FINDINGS: Hardware: None. Heart: The heart size is normal. Mediastinum: The mediastinal contour is unremarkable. Lungs: The lungs are clear. No pneumothorax or pleural effusion. Bones: The bones are unremarkable. RAD/Chest PA and Lateral IMPRESSION: NO ACUTE FINDINGS. Reading Location: [facility]
[2025-05-10] MEDS: 0.9% Normal Saline (1000mL) 1,000 ML 1000 ML IV (16:46)
--- NOTE | 2025-05-10 16:57 | CT_ITS ---
PROCEDURE: BRAIN/HEAD WITHOUT CONTRAST 05/10/2025 REASON FOR EXAM: LIGHTHEADED, PRESYNCOPE TECHNIQUE: Procedure Code: CTBR Modality: CT Procedure: BRAIN/HEAD WITHOUT CONTRAST Coronal and Sagittal reconstruction series were provided. One or more dose reduction techniques were used (e.g., Automated exposure control, adjustment of the mA and/or kV according to patient size, use of iterative reconstruction technique. COMPARISON: CT head 06/30/2021 FINDINGS: There is no extra-axial or intra-axial intracranial hemorrhage. No mass effect or midline shift is seen. Generalized intracranial volume loss and findings compatible with chronic microvascular white matter ischemia. There is normal paez-white matter differentiation. The posterior fossa is grossly unremarkable. The skull is unremarkable. Visualized paranasal sinuses are clear. The mastoid air cells show normal translucency. CT/Brain/Head without Contrast IMPRESSION: 1. No intracranial hemorrhage. No mass effect or midline shift. 2. Chronic involutional and ischemic gliotic white matter changes. Reading Location: [facility]
[2025-05-10 17:05] LABS: Anion Gap 12 (5-15); BUN 11 mg/dL (4-19); BUN/Creat Ratio 14.9 RATIO (10-20); Calcium,Total 9.2 mg/dL (7.6-11.0); Carbon Dioxide 25.1 mmol/L (21.0-32.0); Chloride 102 mmol/L (98-108); Estimated Creatinine Clearance 55.71 ml/min (50-250); Glucose 104 mg/dL (70-99); Potassium 2.9 mmol/L (3.3-5.1)
[2025-05-10 17:15] LABS: Hematocrit 39.0 % (37-47); Hemoglobin 12.1 g/dL (12.0-15.0); Immature Granulocytes Count 0.020 X10^3/uL (0.0-0.0); Mean Corp Hgb Conc 31.0 g/dL (32-36); Mean Corpuscular Volume 86.1 fL (81-99); Mean Platelet Vol. 11.0 fl (6.2-12.0); NRBC Flagged by Analyzer 0 % (0-5); Platelet Count 217 K/mm3 (150-450); RBC Distribution Width CV 14.1 % (11.6-14.6); RBC Distribution Width SD 43.9 fl (35.1-43.9); Red Blood Count 4.53 M/mm3 (4.2-5.4); White Blood Count 8.3 K/mm3 (4.4-11.0)
[2025-05-10 17:24] LABS: Troponin T High Sensitivity 10 ng/L (<=14)
[2025-05-10] MEDS: Potassium Chloride Oral Tablet 20 MEQ 60 MEQ PO (17:47)
[2025-05-10 17:54] LABS: Mucous, Urine 0 SEEN /hpf (<or=2+)
--- OUTSIDE RECORDS SUMMARY | 2025-05-10 18:01 | XMS RPT_ITS | CCD ---
Author Organization [facility] Care Team Providers Care Appraisal Analyst Name Role Phone Lata Wesley Unavailable ELMIRA MONTERROSO Admitting Unavailable ELMIRA MONTERROSO Attending Unavailable ELMIRA MONTERROSO Primary Care Unavailable Kanika Mike Primary Care Provider UnavailLiana Alanis Attending Provider Unavailable Dr. Feliciano Sauceda Attending Provider [phone] Vashti ORTHOPEDICS TEACHER, ORTHOPEDICS TEACHER-C Artur Elizabeth Referring Provider Dr. Donis Ty Emergency Provider Dr. Brittney Victoria Admit Provider Dr. Brittney Victoria Attending Provider Dr. Brittney Victoria Other Provider Dr. Maurilio Martins Attending Provider Dr. Maurilio Martins Other Provider Dr. Sumi Montes De Oca Referring Provider [phone] Kanika Mike Referring Provider Unavailable Montrell ORTHOPEDICS TEACHER, ORTHOPEDICS TEACHER-C Lindsey Attending Provider CHARLEI HELTON Attending Unava ilable KANIKA MIKE Primary Care Unavailable Kanika Mike DO Primary Care Provider Kanika Mike Primary Care Provider UnavailKanika Fairchild Referring Provider Unavailable Vashti ORTHOPEDICS TEACHER, ORTHOPEDICS TEACHER-C Artur Elizabeth Attending Provider Kanika Mike Primary Care Provider UnavailKanika Fairchild Referring Provider Unavailable Vashti ORTHOPEDICS TEACHER, ORTHOPEDICS TEACHER-C Artur Elizabeth Attending Provider Roof ORTHOPEDICS TEACHER, ORTHOPEDICS TEACHER-C Artur Elizabeth Other Provider Dr. Feliciano Sauceda Attending Provider Kanika Mike Primary Care Provider Unavailabl e Kanika Mike Referring Provider Unavailable Vashti ORTHOPEDICS TEACHER, ORTHOPEDICS TEACHER-C Artur Elizabeth Attending Provider Keyla MCCOY, Dr. Youssef Primary Care Provider Keyla MCCOY, Dr. Youssef Referring Provider [phone] Layla Nguyen Attending Provider [facility], Dr. Chawla Attending Provider [facility], Dr. Chawla Referring Provider Denise MCCOY, Dr. Anthony Attending Provider Don KAY, Dr. Rosenberg Attending Provider Don KAY, Dr. Rosenberg Referring Provider [facility], Dr. Chawla Other Provider [phone] [facility] , Dr. Anthony Referring [place] [place] , Dr. Anthony Other Provider [facility] , Dr. Youssef Attending Provider [phone] Keyla , Dr. Youssef Primary Care Provider Keyla , Dr. Youssef Referring Provider [phone] Denise MCCOY, Dr. Anthony Attending Provider Dr. Wilton Davila MD Attending Provider Keyla , Dr. Youssef Primary Care Provider Keyla MCCOY, Dr. Youssef Referring Provider [phone] Rylie Reis Attending Provider [phone] Jakub KAY, Dr. Padilla Attending Provider [phone] Rylie Reis Referring Provider Feng KAY, Dr. Martinez Attending Provider [facility] , Dr. Youssef Primary Care Provider Keyla DO, Dr. Youssef Attending Provider Keyla MCCOY, Dr. Youssef Primary Care Physician Lola KAY, Dr. Mcdowell Attending Physician Rylie Reis Attending Physician Jakub KAY, Dr. Padilla Attending Physician Feng KAY, Dr. Martinez Attending Physician Keyla MCCOY, Dr. Youssef Attending Physician Derek KAY, Dr. Guerra Attending Physician [phone] Derek KAY, Dr. Guerra Referring Provider Keyla, Kanika Primary Care Unavailable Keyla, Kanika Referring Unavailable FriendDenton Attending Unavailable Keyla, Kanika Primary Care Unavailable Keyla, Kanika Attending Unavailable Keyla, Kanika Attending Unavailable Keyla, Kanika Primary Care Unavailable Keyla, Kanika Primary Care Unavailable Keyla, Kanika Referring Unavailable Rylie Schroeder Attending Unavailable Keyla, Kanika Primary Care Unavailable Keyla, Kanika Referring Unavailable Layla Coronado Attending Unavailable Robotham, Opal Referring Unavailable Robotham, Opal Attending Unavailable Robotham, Opal Consulting Unavailable Keyla, Kanika Primary Care Unavailable Keyla, Kanika Primary Care Unavailable Raj Walker Consulting Unavailable Raj Walker Referring Unavailable Raj Walker Attending Unavailable Keyla, Kanika Referring Unavailable Friend, Denton Attending Unavailable Friend, Denton Consulting Unavailable Keyla, Kanika Primary Care Unavailable Keyla, Kanika Primary Care Unavailable Nagajothi, Nagapradee Referring Unavailabl e Nagajothi, Nagapradee Attending Unavailabl e Keyla, Kanika Primary Care Unavailable Keyla, Kanika Referring Unavailable Therese Cordoba Attending Unavailable Juan Toney Attending Unavailable Keyla, Kanika Referring Unavailable Keyla, Kanika Primary Care Unavailable Keyla, Kanika Primary Care Unavailable Keyla, Kanika Referring Unavailable Wilton Davila Attending Unavailable Keyla, Kanika Referring Unavailable Keyla, Kanika Primary Care Unavailable Raj Walker Attending Unavailable Keyla, Kanika Primary Care Unavailable Susan Schroederyn Referring Unavailable Rylie Schroeder Attending Unavailable KeylaKanika herrera Primary Care Unavailable Denise, Raj Referring Unavailable Denise, Raj Attending Unavailable Robotmalu, Opal Referring Unavailable Robotham, Opal Attending Unavailable Keyla, Kanika Primary Care Unavailable Keyla, Kanika Primary Care Unavailable Keyla, Kanika Referring Unavailable Ladonnaruso, Raj Attending Unavailable Keyla, Kanika Primary Care Unavailable Jakub, [place] Attending Unavailable Keyla, Kanika Primary Care Unavailable Prayson, Charlie Referring Unavailable Prayson, Charlie Attending Unavailable Keyla, Kanika Primary Care Unavailable Friend, Denton Referring Unavailable Friend, Denton Attending Unavailable Keyla, Kanika Referring Unavailable Keyla, Kanika Attending Unavailable Keyla, Kanika Primary Care Unavailable Allergies Allergy Classification Reported Allergen(s) Allergy Type Date of Onset Reaction(s) Facility (2 sources) clarithromycin Drug Allergy 01-30-20 14 Rash, unknown [facility] Work Phone: (20 sources) codeine; Translations: [CODEINE] Drug Allergy 07-25-19 07 Upset Stomach [facility] Work Phone: Comment on above: FLUSHING AND VOMITTI NG (2 sources) codeine Drug Allergy 01-30-20 14 Skin turned red, nauseas, hot skin, unknown [facility] Work Phone: (2 sources) iodine Drug Allergy 01-30-20 14 Couldn't breathe, unknown [facility] Work Phone: (1 source) penicillin Drug Allergy 01-30-20 14 [facility] Work Phone: (2 sources) penicillin g Drug Allergy 01-30-20 14 Passed out, unknown [facility] Work Phone: (2 sources) pseudoephedrine Drug Allergy 01-30-20 14 unknown, Rash [facility] Work Phone: (3 sources) sulfamethoxazole / trimethoprim; Translations: [BACTRIM] Drug Allergy 01-30-20 14 Rash, unknown [facility] Work Phone: (1 source) IODINE DYE drug allergy 01-30-20 14 [facility] Work Phone: (1 source) ZEPHEREX drug allergy 01-30-20 14 [facility] Work Phone: (1 source) BIOXIN drug allergy 01-30-20 14 [facility] Work Phone: (18 sources) carvedilol Drug Allergy 08-18-19 22 Nausea, Lightheaded [facility] (20 sources) Clarithromycin; Translations: [CLARITHROMYCIN] Drug Allergy 07-25-19 07 Rash [facility] Repository (19 sources) Lisinopril Drug Allergy 02-24-20 19 Cough [facility] (20 sources) Penicillins; Translations: [Penicillins] Propensity to adverse reactions 07-25-19 07 Other [facility] Work Phone: Comment on above: as a child (18 sources) Sulfamethoxazole Drug Allergy 08-18-19 22 Rash [facility] (18 sources) Trimethoprim Drug Allergy 08-18-19 Rash [facility] (1 source) Penicillin; Translations: [PENICILLIN G] Drug Allergy 09-29-19 22 [facility] Rep[facility] (2 sources) Sulfamethoxazole / Trimethoprim; Translations: [SULFAMETHOXAZOLE-T RIMETHOPRIM] Drug Allergy 07-25-19 07 [facility] Repository (1 source) Contrast media Propensity to adverse reactions 07-25-19 07 Anaphylaxis [facility] Work Phone: (1 source) guaiFENesin / Pseudoephedrine Drug Allergy 07-25-19 07 Rash [facility] Work Phone: (1 source) carvedilol Drug Allergy 01-10-20 25 [facility] Repository (1 source) Clarithromycin Drug Allergy 01-10-20 25 [facility] Rep[facility] (1 source) Lisinopril Drug Allergy 01-10-20 25 [facility] Rep[facility] (1 source) Sulfamethoxazole Drug Allergy 01-10-20 25 [facility] Rep[facility] (1 source) Trimethoprim Drug Allergy 01-10-20 [facility] Repository Medications Current Medications Medication Drug Class(es) Dates Sig (Normalized) Sig (Original) acetaminophen 500 mg oral tablet (18 sources) Start: 08-06-2020 take 1-10 tablets by mouth once daily as needed for pain cholecalciferol 0.05 mg oral capsule (20 sources) Vitamin D Start: 04-05-2022 take 1 capsule by mouth once daily Start: 08-05-2021 End: 04-05-2022 take 1 capsule by mouth once daily Cholecalciferol (Vitamin D3) 50 mcg (2,000 unit) capsule Discontinued 4000 U PO DAILY August 05, 2021 4:28pm April 05, 2022 3:09pm SUPPLEMENT Start: 03-25-2020 End: 08-05-2021 take 1 capsule by mouth once daily Cholecalciferol (Vitamin D3) 50 mcg (2,000 unit) capsule Discontinued 100 ug PO DAILY March 25, 2020 12:00am August 05, 2021 4:31pm SUPPLEMENT Cholecalciferol, Vitamin D3, (VITAMIN D-3) 50 mcg (2,000 unit) cap Take 1 capsule by mouth. 0 Active Comment on above: Take 1 capsule by mo [facility]. hydroCHLOROthiazide 25 mg or al tablet (20 sources) Thiazide Diuretic Start: 08-28-2021 take 1 tablet by mouth once daily Start: 08-06-2020 End: 08-18-2021 Hydrochlorothiazide 25 MG ta blet Discontinued 12.5 mg PO DAILY August 06, 2020 1:00am August 18, 2021 5:23pm BP Start: 08-06-2020 End: 08-18-2021 take 12.5 mg by mouth once daily Hydrochlorothiazide Discontinued 12.5 MG PO DAILY August 06, 2020 1:00am August 18, 2021 5:23pm Start: 12-31-2016 End: 07-03-2020 Hydrochlorothiazide 25 MG ta blet Discontinued 12.5 mg PO DAILY December 31, 2016 12:00am July 03, 2020 2:12pm Diuretic Start: 12-31-2016 End: 07-03-2020 take 12.5 mg by mouth once daily Hydrochlorothiazide Discontinued 12.5 MG PO DAILY December 31, 2016 12:00am July 03, 2020 2:12pm Start: 10-02-2015 take 0.5 tablet by m outh once daily HYDROCHLOROTHIAZIDE 25 MG TABS 1/2 tablet by mouth daily HYDROCHLOROTHIAZIDE [id number] Kanika Mike DO Start: 01-29-2014 HYDROCHLOROTHI AZIDE TABS as directed HYDROCHLOROTHIAZIDE TABS [id number] Louisa Serra Kassykaris take 1 tablet by lana th once daily hydroCHLOROthiazide (HYDRODIURIL, ESIDRIX) 12.5 mg tablet Take 12.5 mg by mouth once daily. 0 Active End: 10-02-2015 take 1 tablet by mouth once daily HYDROCHLOROTHIAZIDE 25 MG TABS One half tablet by mouth daily HYDROCHLOROTHIAZIDE [id number] Lizbeth Washburn LPN Comment on above: Take 12.5 mg by mout h once daily. mecobalamin 1 mg sublingual tablet (8 sources) Start: 10-26-2023 metoprolol tartrate 50 mg oral tablet (20 sources) beta-Adrenergic Leopoldo Start: 12-07-2024 take 1 tablet by mouth once daily Start: 10-07-2021 End: 12-07-2024 take 1 tablet by mouth twice daily Metoprolol Tartrate 50 mg tablet Discontinued 50 mg PO TWICE A DAY 180 3 September 20, 2024 9:29am December 07, 2024 1:32pm BP Start: 09-10-2021 End: 10-07-2021 Metoprolol Tartrate 50 mg ta blet Discontinued 75 mg PO TWICE A DAY 180 3 September 10, 2021 11:10am October 07, 2021 1:50pm this is a dose increase Start: 09-10-2021 End: 10-07-2021 take 75 mg by mouth twice daily Metoprolol Tartrate Di scontinued 75 MG PO TWICE A DAY 180 September 10, 2021 11:10am October 07, 2021 1:50pm Start: 08-17-2021 End: 09-10-2021 take 1 tablet by mouth twice daily Metoprolol Tartrate 50 mg tablet Discontinued 50 mg PO TWICE A DAY 180 3 August 17, 2021 1:00am September 10, 2021 11:19am this is a dose increase Start: 08-10-2021 End: 08-17-2021 take 2 tablets by mouth twice daily Metoprolol Tartrate 25 mg Tablet Discontinued 50 mg PO TWICE A DAY 120 30 0 August 10, 2021 1:00am August 17, 2021 11:59am Start: 08-10-2021 End: 08-17-2021 take 50 mg by mouth twice daily Metoprolol Tartrate Di scontinued 50 MG PO TWICE A DAY 120 30 August 10, 2021 1:00am August 17, 2021 11:59am omeprazole 40 mg delayed release oral capsule (20 sources) Proton Pump Inhibitor Start: 08-05-2021 take 1 capsule by mouth twice daily Start: 08-05-2021 take 40 mg by mouth once daily Omeprazole Active 40 MG PO DAILY August 05, 2021 4:29pm Start: 03-25-2021 End: 08-05-2021 take 2 capsules by mouth once daily Omeprazole 40 mg capsule,delayed release(DR/EC) Discontinued 80 mg PO DAILY March 25, 2021 1:32pm August 05, 2021 4:31pm gerd Start: 03-25-2021 End: 08-05-2021 take 80 mg by mouth once daily Omeprazole Discontinued 80 MG PO DAILY March 25, 2021 1:32pm August 05, 2021 4:31pm Start: 08-09-2018 End: 03-25-2021 take 1 capsule by mouth once daily Omeprazole 40 MG capsule,delayed release(DR/EC) Discontinued 40 mg PO DAILY August 09, 2018 1:00am March 25, 2021 1:36pm gerd Start: 10-02-2015 End: 10-02-2015 take 2 capsules by mouth once daily OMEPRAZOLE 20 MG CPDR 2 capsules by mouth daily OMEPRAZOLE [id number] Kanika Mike DO Start: 01-29-2014 take 1 capsule by [facility] once daily OMEPRAZOLE 20 MG CPDR 1 capsule by mouth daily OMEPRAZOLE [id number] Kanika Mike DO Comment on above: Take 40 mg by mouth once daily. levothyroxine sodium 0.05 mg oral tablet (20 sources) l-Thyroxine Start: 12-31-2016 take 1 tablet by mouth once daily Start: 01-29-2014 End: 10-02-2015 take 1 tablet by mouth once daily LEVOTHYROXINE SODIUM 50 MCG TABS One tablet by mouth daily LEVOTHYROXINE SODIUM [id number] Kanika Mike DO Comment on above: Take 50 mcg by mouth daily before breakfast. Completed/Discontinued Medications Medication Drug Class(es) Dates Sig (Normalized) Sig (Original) [id number] 200 actuat albuterol 0.09 mg/actuat metered dose inhaler (20 sources) beta2-Adrenergic Agonist Start: 11-16-2018 End: 08-05-2021 Albuterol Sulfate 90 mcg/actuation HFA aerosol inhaler Discontinued 2 NMA INHALATION DAILY as needed for Asthma November 16, 2018 11:42am August 05, 2021 4:26pm Start: 11-16-2018 End: 08-05-2021 take 1 puff(s) by inhalation once daily Albuterol Sulfate Discontinued 2 PUFF INHALATION DAILY November 16, 2018 10:42am August 05, 2021 3:26pm Start: 11-16-2018 End: 08-05-2021 take 1 puff(s) by inhalation once daily Albuterol Sulfate Discontinued 2 PUFF INHALATION DAILY November 16, 2018 11:42am August 05, 2021 4:26pm Start: 08-09-2018 End: 11-16-2018 Albuterol Sulfate Discontinu ed 2 PUFF IN DAILY August 09, 2018 8:05pm November 16, 2018 11:42am Start: 08-09-2018 End: 11-16-2018 Albuterol Sulfate 90 MCG HFA aerosol inhaler Discontinued 2 NMA IN DAILY August 09, 2018 1:00am November 16, 2018 11:42am Start: 08-09-2018 End: 11-16-2018 Albuterol Sulfate Discontinu ed 2 PUFF IN DAILY August 09, 2018 1:00am November 16, 2018 11:42am Start: 10-02-2015 ALBUTEROL SULF ATE (2.5 MG/3ML) 0.083% NEBU 1 ampule per day as needed ALBUTEROL SULFATE [id number] Kanika Mike DO Start: 10-02-2015 VENTOLIN HFA 1 08 (90 Base) MCG/ACT AERS 2 puffs every 6 hours as needed ALBUTEROL SULFATE [id number] Kanika Mike DO Start: 07-25-2006 take 1 puff(s) by in halation once daily as needed for wheezing ALBUTEROL 90 MCG/ACTUATION AEROSOL INHALER Inhale one(1) - two(2) puffs four(4) times a day as needed for wheezing and shortness of breath. 0 07/25/2006 Active Comment on above: Inhale one(1) - two( 2) puffs four(4) times a day as needed for wheezing and shortness of breath. Albuterol Sulfate 90 mcg/actuation HFA aerosol inhaler (7 sources) Start: 9 End: 2 Albuterol Sulfate 90 mcg/actuation HFA aerosol inhaler Discontinued 2 NMA INHALATION DAILY as needed for Asthma November 16, 2018 11:42am August 05, 2021 4:26pm apixaban 5 mg oral tablet (20 sources) Factor Xa Inhibitor Start: 2 End: 4 take 1 tablet by mouth twice daily Apixaban (Eliquis) 5 mg tablet Discontinued 5 mg PO TWICE A DAY 60 September 28, 2023 3:12pm December 21, 2023 2:04pm blood thinner aspirin 81 mg chewable tablet (20 sources) Platelet Aggregation Inhibitor, Nonsteroidal Anti-inflammatory Drug Start: 4 End: 4 take 1 tablet by mouth once daily Aspirin 81 mg tablet,chewable Discontinued 81 mg PO DAILY 30 December 21, 2023 12:00am May 28, 2024 11:12am On Hold: Resume on 04/26/24. Start: 06-21-2018 End: 12-13-2022 take 1 tablet by mouth once daily Aspirin 81 MG tablet Discontinued 81 mg PO DAILY@1999August 06, 2020 3:42pm December 13, 2022 2:22pm heart Comment on above: Take 81 mg by mouth once daily. atorvastatin 80 mg oral tablet (20 sources) HMG-CoA Reductase Inhibitor Start: 06-21-20 18 End: 08-08-19 take 1 tablet by mouth at bedtime Atorvastatin 80 mg tablet Discontinued 80 mg PO AT BEDTIME 90 July 18, 2020 5:43pm August 08, 2021 3:59pm Comment on above: Take 80 mg by mouth once daily. betamethasone 0.5 mg/ml / clotrimazole 10 mg/ml topical cream (1 source) Azole Antifungal, Corticosteroid Start: 08-29-19 clotrimazole-betame thasone (LOTRISONE) cream Indications: Vulvar dermatitis Apply 1 application to affected area twice daily. 15 g 2 08/28/2020 Active Comment on above: Apply 1 application to affected area twice daily. carvedilol 3.125 mg oral tablet (20 sources) alpha-Adrenergic Lepooldo, beta-Adrenergic Leopoldo Start: 06-07-20 19 End: 06-07-20 19 take 2 tablets by mouth twice daily Carvedilol 3.125 mg tablet Discontinued 6.25 mg PO TWICE A DAY June 07, 2019 12:27pm June 07, 2019 12:34pm Presence of coronary angioplasty implant and graft Start: 06-07-2019 End: 06-07-2019 take 6.25 mg by mouth twice daily Carvedilol Discontinued 6.25 MG PO TWICE A DAY June 07, 2019 12:27pm June 07, 2019 12:34pm Start: 06-21-2018 End: 06-07-2019 take 1 tablet by mouth twice daily Carvedilol 3.125 mg tablet Discontinued 3.125 mg PO TWICE A DAY 180 3 July 03, 2018 5:02pm June 07, 2019 12:28pm Comment on above: Take 3.125 mg by lana th twice daily with meals. ciprofloxacin 250 mg oral tablet (20 sources) Quinolone Antimicrobial Start: 07-01-19 18 End: 07-03-19 18 take 1 tablet by mouth once Ciprofloxacin Hcl (Cipro) 250 mg tablet Discontinued 250 mg PO ONCE 7 7 0 July 01, 2017 1:00am July 07, 2017 1:00am July 03, 2017 1:03pm Cystitis, unspecified without hematuria Start: 04-24-2017 End: 07-01-2017 take 1 tablet by mouth twice daily Ciprofloxacin Hcl 250 MG tablet Discontinued 250 mg PO TWICE A DAY 6 0 April 24, 2017 12:00am July 01, 2017 3:33pm clopidogrel 75 mg oral tablet (20 sources) [id number] Platelet Inhibitor Start: 11-16-2018 End: 08-06-2021 take 1 tablet by mouth once daily Clopidogrel 75 mg tablet Discontinued 75 mg PO DAILY 30 December 02, 2020 2:37pm August 06, 2021 4:14pm BLOOD THINNER Comment on above: Take 75 mg by mouth once daily. 24 hr dilTIAZem hydrochloride 120 mg extended release oral capsule (20 sources) Calcium Channel Leopoldo Start: 02-04-2023 End: 10-26-2023 take 1 capsule by mouth once daily Diltiazem Hcl 120 mg capsule,extended release 24hr Discontinued 120 mg PO DAILY February 04, 2023 12:00am October 26, 2023 2:37pm Start: 12-13-2022 End: 12-13-2022 take 1 capsule by mouth once daily Diltiazem Hcl 120 mg capsule,extended release 24hr Discontinued 120 mg PO DAILY December 13, 2022 2:48pm December 13, 2022 2:51pm Start: 10-01-2021 End: 12-13-2022 take 1 capsule by mouth twice daily Diltiazem Hcl 120 mg capsule,extended release 24hr Discontinued 120 mg PO TWICE A DAY 180 3 December 01, 2022 3:27pm December 13, 2022 2:49pm Start: 08-17-2021 End: 10-01-2021 take 1 capsule by mouth once daily Diltiazem Hcl 120 mg capsule,extended release 24hr Discontinued 120 mg PO DAILY 90 3 August 17, 2021 1:00am October 01, 2021 4:56pm Start: 08-02-2021 End: 08-05-2021 take 240 mg by mouth once daily Diltiazem Hcl Discontinued 240 MG PO DAILY August 02, 2021 3:47pm August 05, 2021 4:31pm Start: 06-07-2019 End: 08-10-2021 take 1 capsule by mouth once daily Diltiazem Hcl 120 mg capsule,extended release 24hr Discontinued 120 mg PO DAILY 90 3 June 01, 2021 5:39pm August 02, 2021 3:47pm Presence of coronary angioplasty implant and graft Comment on above: Take 120 mg by mouth once daily. ergocalciferol 30231 unt oral tablet (2 sources) Provitamin D2 Compound End: 10-02-19 take 1 tablet by mouth every week VITAMIN D (ERGOCALCIFEROL) 46046 UNIT CAPS One tablet by mouth weekly ERGOCALCIFEROL [id number] Lizbeth Washburn LPN Flaxseed Oil oil (1 source) Flaxseed Oil oil 1 tablet once daily. 0 Active Comment on above: 1 tablet once daily. ibuprofen 200 mg oral tablet (1 source) Nonsteroidal Anti-inflammatory Drug Start: 10-02-19 16 take 1 tablet by mouth once daily as needed IBUPROFEN 200 MG TABS One tablet by mouth daily as needed IBUPROFEN [id number] Kanika Mike DO levoFLOXacin 500 mg oral tablet (1 source) Quinolone Antimicrobial Start: 08-19-19 16 End: 08-22-19 16 take 1 tablet by mouth once daily LEVAQUIN 500 MG TABS one tablet PO QD LEVOFLOXACIN [id number] Gopi Astorga DO lisinopril 5 mg oral tablet (20 sources) Angiotensin Converting Enzyme Inhibitor Start: 06-21-20 18 End: 10-18-19 19 take 1 tablet by mouth once daily Lisinopril 5 mg tablet Discontinued 5 mg PO DAILY 90 July 03, 2018 5:03pm October 17, 2018 9:26am losartan potassium 25 mg oral tablet (20 sources) Angiotensin 2 Receptor Leopoldo Start: 07-15-19 End: 06-18-20 take 1 tablet by mouth once daily Losartan 25 mg tablet Discontinued 25 mg PO DAILY 90 July 06, 2023 3:13pm June 18, 2024 11:02am Presence of coronary angioplasty implant and graft blood pressure Start: 04-05-2022 End: 07-15-2022 take 1 tablet by mouth twice daily Losartan 25 mg tablet Discontinued 25 mg PO TWICE A DAY April 05, 2022 3:06pm July 15, 2022 3:54pm Presence of coronary angioplasty implant and graft blood pressure Start: 10-07-2021 End: 04-05-2022 take 1 tablet by mouth once daily Losartan 25 mg tablet Discontinued 25 mg PO DAILY 90 October 07, 2021 2:27pm April 05, 2022 3:09pm Presence of coronary angioplasty implant and graft blood pressure Start: 09-04-2021 End: 10-07-2021 take 1 tablet by mouth twice daily Losartan 25 mg tablet Discontinued 25 mg PO TWICE A DAY 180 September 04, 2021 12:37pm October 07, 2021 2:27pm Presence of coronary angioplasty implant and graft blood pressure Start: 03-25-2020 End: 09-04-2021 take 1 tablet by mouth once daily in the morning Losartan 25 mg tablet Discontinued 25 mg PO EVERY MORNING 90 3 March 04, 2021 11:11am September 04, 2021 12:37pm Presence of coronary angioplasty implant and graft blood pressure Start: 12-03-2019 End: 03-25-2020 Losartan 25 mg tablet Discon tinued 12.5 mg PO EVERY MORNING 45 3 December 03, 2019 2:50pm March 25, 2020 12:58pm Presence of coronary angioplasty implant and graft Start: 12-03-2019 End: 03-25-2020 take 12.5 mg by mouth once daily in the morning Losartan Discontinued 12.5 MG PO EVERY MORNING 45 December 03, 2019 2:50pm March 25, 2020 12:58pm Start: 03-06-2019 End: 12-03-2019 take 12.5 mg by mouth twice daily in the morning Losartan Discontinued 12.5 MG PO EVERY MORNING 90 December 03, 2019 2:34pm December 03, 2019 2:50pm 12.5 mg bid Start: 03-06-2019 End: 12-03-2019 Losartan 25 mg tablet Discon tinued 12.5 mg PO EVERY MORNING 90 3 December 03, 2019 2:34pm December 03, 2019 2:50pm Presence of coronary angioplasty implant and graft 12.5 mg bid Start: 01-17-2019 End: 03-06-2019 take 1 tablet by mouth once daily Losartan 25 mg tablet Discontinued 25 mg PO DAILY 90 3 January 17, 2019 10:57am March 06, 2019 1:36pm Start: 10-17-2018 End: 01-17-2019 Losartan 25 mg tablet Discon tinued 12.5 mg PO DAILY 45 3 November 14, 2018 12:41pm January 17, 2019 10:58am Start: 10-17-2018 End: 01-17-2019 take 12.5 mg by mouth once daily Losartan Discontinued 12.5 MG PO DAILY 45 November 14, 2018 12:41pm January 17, 2019 10:58am Comment on above: Take 12.5 mg by mout h once daily. meclizine hydrochloride 25 mg oral tablet (4 sources) Antiemetic Start: 7 take 1 tablet by mouth once daily as needed MECLIZINE HCL 25 MG TABS One tablet by mouth daily as needed MECLIZINE HCL [id number] Kanika Mike DO End: 10-02-2015 MECLIZINE HCL 25 MG TABS One tablet by mouth every 6-8 hours as needed MECLIZINE HCL [id number] Lizbeth Washburn LPN Comment on above: PRN methylPREDNISolone acetate 40 mg/ml injectable suspension (1 source) Corticosteroid Start: 9 End: 9 Depo-Medrol (methylprednisolone acetate) 20 mg/mL suspension for injection Discontinued 20 MG INTRAARTIC ONCE 1 August 14, 2018 3:40pm August 14, 2018 4:35pm metroNIDAZOLE 7.5 mg/ml topical cream (20 sources) Nitroimidazole Antimicrobial Start: 9 End: 4 Metronidazole 0.75 % cream Discontinued 1 APPLICATIO TOPICAL DAILY 135 68 0 July 03, 2018 1:00am May 02, 2024 2:34pm rosacea FOR ROSACEA Start: 12-31-2016 End: 07-03-2018 Metronidazole 1 APPLIC gel D iscontinued 70 NMA TOPICAL DAILY December 31, 2016 12:00am July 03, 2018 4:16pm Facial Cream Start: 12-31-2016 End: 07-03-2018 Metronidazole Discontinued 7 0 APPLIC TOPICAL DAILY December 31, 2016 12:00am July 03, 2018 4:16pm Start: 10-02-2015 METRONIDAZOLE 0.75 % CREA Apply as needed METRONIDAZOLE [id number] Kanika Mike DO Start: 07-25-2006 METROGEL 1 % T OPICAL End: 10-02-2015 METRONIDAZOLE 0.75 % CREA Ap ply to the affected area(s) twice daily as needed. METRONIDAZOLE [id number] Lizbeth Washburn LPN montelukast 10 mg oral tablet (19 sources) Leukotriene Receptor Antagonist Start: 07-25-2006 End: 06-07-2019 take 1 tablet by mouth once daily in the evening Montelukast 10 mg tablet Discontinued 10 mg PO EVERY EVENING March 06, 2019 12:00am June 07, 2019 12:28pm Comment on above: Take one(1) tablet d aily at bedtime. nitrofurantoin, macrocrystals 50 mg oral capsule (18 sources) Nitrofuran Antibacterial Start: 08-17-2017 End: 03-30-2018 Nitrofurantoin Macrocrystal 50 MG capsule Discontinued 50 mg PO August 17, 2017 1:00am March 30, 2018 3:08pm nitrofurantoin, macrocrystals 25 mg / nitrofurantoin, monohydrate 75 mg oral capsule (18 sources) Nitrofuran Antibacterial Start: 07-03-2017 End: 07-10-2017 take 1 capsule by mouth every twelve hours at mealtime Nitrofurantoin Monohyd/M-Cryst 100 mg capsule Discontinued 1 NMA PO Q12H 14 7 0 July 03, 2017 1:00am July 09, 2017 1:00am July 10, 2017 1:09am Cystitis, unspecified without hematuria administer with a meal/food; swallow whole; do not open, crush, dissolve , or chew nystatin 100 unt/mg topical powder (20 sources) Polyene Antifungal Start: 07-30-2020 End: 09-22-2020 Nystatin 100,000 unit/gram powder Discontinued 1 NMA TOPICAL THREE TIMES A DAY 15 July 30, 2020 1:00am September 22, 2020 11:47am inguinal candidiasis Start: 07-30-2020 End: 09-22-2020 Nystatin Discontinued 1 APPL IC TOPICAL THREE TIMES A DAY July 30, 2020 1:00am September 22, 2020 11:47am Start: 03-26-2020 End: 07-30-2020 Nystatin 1 APPLIC bottle Dis continued 1 NMA TOPICAL TWICE A DAY March 26, 2020 12:00am July 30, 2020 10:40am Start: 03-26-2020 End: 07-30-2020 Nystatin Discontinued 1 APPL IC TOPICAL TWICE A DAY March 26, 2020 12:00am July 30, 2020 10:40am oxyCODONE hydrochloride 5 mg oral tablet (8 sources) Opioid Agonist Start: 07-31-2024 End: 08-13-2024 take 2.5-5 mg by mouth every four hours as needed for pain Oxycodone 5 mg tablet Discontinued 2.5 - 5 mg PO Q4H as needed for pain 7 3 0 July 31, 2024 August 13, 2024 2:03pm Other acute postprocedural pain Other acute postprocedural pain pantoprazole 40 mg oral granules (19 sources) Proton Pump Inhibitor Start: 03-06-2019 End: 06-07-2019 take 40 mg by mouth once daily Pantoprazole (Protonix) [address] for susp in packet Discontinued 40 mg PO DAILY March 06, 2019 12:00am June 07, 2019 12:28pm Start: 07-25-2006 PROTONIX 40 MG TAB Take one(1) tablet daily. 0 07/25/2006 Active Comment on above: Take one(1) tablet d [facility]mark[facility]. phenazopyridine hydrochloride 100 mg oral tablet (18 sources) Start: 07-01-19 18 End: 07-02-19 18 take 1 tablet by mouth three times daily at mealtime for pain Phenazopyridine (Pyridium) 100 mg tablet Discontinued 100 mg PO THREE TIMES A DAY as needed for pain 7 0 0 July 01, 2017 1:00am July 01, 2017 1:00am July 02, 2017 1:06am administer with a full glass of water after each meal polyethylene glycol 400 4 mg/ml / propylene glycol 3 mg/ml ophthalmic solution (18 sources) Start: 08-06-19 21 End: 10-26-19 24 Peg 400-Propylene Glycol 10 ML drops Discontinued 1 NMA EACH EYE TWICE A DAY August 06, 2020 1:00am October 26, 2023 2:38pm DRY EYE Start: 08-06-2020 Peg 400-Propyl inga Glycol Active 1 DRP EACH EYE TWICE A DAY August 06, 2020 1:00am potassium (1 source) Start: 01-29-2014 POTASSIMIN TAB S as directed POTASSIUM TABS [id number] Louisa Bell microencapsulated potassium chloride 20 meq extended release oral tablet (20 sources) Start: 09-22-2020 End: 12-07-2024 take 1 tablet by mouth once daily Potassium Chloride 20 mEq tablet,ER particles/crystals Discontinued 20 meq PO DAILY September 22, 2020 11:46am December 07, 2024 1:31pm supplement Start: 08-09-2018 End: 09-22-2020 take 10 mEq by mouth once daily Potassium Chloride 20 mEq tablet,ER particles/crystals Discontinued 10 meq PO DAILY March 25, 2020 12:57pm September 22, 2020 11:48am supplement Start: 08-09-2018 End: 09-22-2020 take 10 mEq by mouth once daily Potassium Chloride Discontinued 10 MEQ PO DAILY March 25, 2020 12:57pm September 22, 2020 11:48am Start: 12-31-2016 End: 06-29-2018 take 1 tablet by mouth once daily Potassium Chloride 20 MEQ tablet,ER particles/crystals Discontinued 20 meq PO DAILY December 31, 2016 12:00am June 29, 2018 12:09pm Supplement Start: 10-02-2015 take 1 tablet by lana th once daily KLOR-CON 20 MEQ PACK One tablet by mouth daily POTASSIUM CHLORIDE [id number] Kanika Mike DO take 2 tablets by mo [facility] once daily potassium chloride (K-TAB) 10 mEq tablet Take 20 mEq by mouth once daily. 0 Active End: 10-02-2015 take 1 tablet by mouth once daily KLOR-CON M20 20 MEQ CR-TABS One tablet by mouth daily POTASSIUM CHLORIDE LUIS E CR [id number] Kanika Mike DO take 1 tablet by lana th once daily KLOR-CON M20 20 MEQ CR-TABS One tablet by mouth daily POTASSIUM CHLORIDE LUIS E CR [id number] iLzbeth Washburn LPN Comment on above: Take 20 mEq by mouth once daily. predniSONE 1 mg oral tablet (20 sources) Start: 04-05-2022 End: 07-15-2022 take 4 tablets by mouth once daily Prednisone 1 mg tablet Discontinued 4 mg PO DAILY April 05, 2022 12:00am July 15, 2022 3:24pm Start: 04-05-2022 End: 07-15-2022 take 4 mg by mouth once daily Prednisone Discontinued 4 MG PO DAILY April 05, 2022 12:00am July 15, 2022 3:24pm Start: 04-05-2022 End: 07-15-2022 take 4 mg by mouth once daily Prednisone Discontinued 4 MG PO DAILY April 04, 2022 11:00pm July 15, 2022 2:24pm Start: 04-05-2022 take 4 mg by mouth once daily Prednisone Active 4 MG PO DAILY April 04, 2022 11:00pm Start: 04-05-2022 take 4 mg by mouth once daily Prednisone Active 4 MG PO DAILY April 05, 2022 12:00am Start: 06-30-2021 End: 04-05-2022 take 1 tablet by mouth once daily Prednisone 20 mg tablet Discontinued 20 mg PO DAILY August 08, 2021 3:58pm April 05, 2022 3:08pm polymyalgia rheumatica Start: 03-25-2021 End: 08-05-2021 take 3 tablets by mouth once daily Prednisone 1 mg tablet Discontinued 3 mg PO DAILY March 25, 2021 12:00am August 05, 2021 4:30pm Start: 03-25-2021 End: 08-05-2021 take 3 mg by mouth once daily Prednisone Discontinued 3 MG PO DAILY March 25, 2021 12:00am August 05, 2021 4:30pm Start: 08-06-2020 End: 03-25-2021 take 7.5 mg by mouth once daily Prednisone 5 MG tablet Discontinued 7.5 mg PO DAILY August 06, 2020 1:00am March 25, 2021 1:33pm steroid Start: 08-06-2020 End: 03-25-2021 take 7.5 mg by mouth once daily Prednisone Discontinue d 7.5 MG PO DAILY August 06, 2020 1:00am March 25, 2021 1:33pm Start: 06-07-2019 End: 07-03-2020 take 10 mg by mouth once daily Prednisone 1 mg tablet Discontinued 10 mg PO DAILY June 07, 2019 1:00am July 03, 2020 2:12pm Presence of coronary angioplasty implant and graft Start: 06-07-2019 End: 07-03-2020 take 10 mg by mouth once daily Prednisone Discontinued 10 MG PO DAILY June 07, 2019 1:00am July 03, 2020 2:12pm Start: 04-27-2019 End: 06-07-2019 take 1 tablet by mouth once daily Prednisone 2 mg tablet,delayed release (DR/EC) Discontinued 2 mg PO DAILY April 27, 2019 12:00am June 07, 2019 12:26pm Start: 03-06-2019 End: 04-27-2019 take 5 mg by mouth once daily Prednisone 10 mg tablet Discontinued 5 mg PO DAILY March 06, 2019 1:37pm April 27, 2019 1:24pm Start: 03-06-2019 End: 04-27-2019 take 5 mg by mouth once daily Prednisone Discontinued 5 MG PO DAILY March 06, 2019 1:37pm April 27, 2019 1:24pm Start: 02-05-2019 End: 03-06-2019 Prednisone 10 mg tablet Disc ontinued 15 mg PO DAILY February 05, 2019 2:58pm March 06, 2019 1:38pm Start: 02-05-2019 End: 03-06-2019 take 15 mg by mouth once daily Prednisone Discontinued 15 MG PO DAILY February 05, 2019 2:58pm March 06, 2019 1:38pm Start: 01-10-2019 End: 02-05-2019 take 4 tablets by mouth once daily Prednisone 10 MG tablet Discontinued 40 mg PO DAILY 120 30 0 January 10, 2019 12:00am February 08, 2019 12:00am February 05, 2019 2:58pm Start: 01-10-2019 End: 02-05-2019 take 40 mg by mouth once daily Prednisone Discontinued 40 MG PO DAILY 120 30 January 10, 2019 12:00am February 05, 2019 2:58pm Start: 11-16-2018 End: 02-05-2019 take 2 tablets by mouth once daily Prednisone 10 mg tablet Discontinued 20 mg PO DAILY November 16, 2018 12:00am February 05, 2019 2:58pm Start: 11-16-2018 End: 02-05-2019 take 20 mg by mouth once daily Prednisone Discontinued 20 MG PO DAILY November 16, 2018 12:00am February 05, 2019 2:58pm Comment on above: Take 7.5 mg by mouth once daily. propranolol hydrochloride 60 mg oral tablet (20 sources) beta-Adrenergic Leopoldo Start: 7 End: 8 take 1 tablet by mouth once daily Propranolol 60 MG tablet Discontinued 60 mg PO DAILY December 31, 2016 12:00am June 21, 2018 5:25pm Antiarrhythmia Start: 07-25-2006 End: 04-27-2019 take 1 capsule by mouth once daily Propranolol (Inderal La) 60 mg capsule,extended release 24 hr Discontinued 60 mg PO DAILY March 06, 2019 12:00am April 27, 2019 1:23pm End: 10-02-2015 take 1 tablet by mouth once daily PROPRANOLOL HCL ER 80 MG [id number] One tablet by mouth daily PROPRANOLOL HCL [id number] Lizbeth Washburn LPN Comment on above: once [...] 1 Drop in eyes o nce daily. sucralfate 100 mg/ml oral suspension (1 source) Aluminum Complex Start: 08-16-2024 End: 12-07-2024 take 1 mL by mouth twice daily Sucralfate (Carafate) 100 mg/mL suspension Discontinued 10 mL PO TWICE A DAY 600 2 August 16, 2024 1:00am December 07, 2024 1:32pm Sucralfate (Carafate) 100 mg/mL suspension (7 sources) Start: 08-16-2024 End: 12-07-2024 take 1 mL by mouth twice daily Sucralfate (Carafate) 100 mg/mL suspension Discontinued 10 mL PO TWICE A DAY 600 2 August 16, 2024 1:00am December 07, 2024 1:32pm Start: 08-16-2024 End: 12-07-2024 take 1 mL by mouth twice daily Sucralfate (Carafate) 1 00 mg/mL suspension Discontinued 10 mL PO TWICE A DAY 600 August 16, 2024 1:00am December 07, 2024 1:32pm Start: 08-16-2024 take 1 mL by mouth twice daily Sucralfate (Carafate) 100 mg/mL suspension Active 10 mL PO TWICE A DAY 600 August 16, 2024 1:00am ticagrelor 90 mg oral tablet (20 sources) Start: 08-09-2018 End: 11-16-2018 take 1 tablet by mouth twice daily Ticagrelor 90 MG tablet Discontinued 1 {tbl} PO TWICE A DAY August 09, 2018 1:00am November 16, 2018 12:01pm Start: 06-21-2018 End: 07-03-2018 take 1 tablet by mouth twice daily Ticagrelor 90 MG tablet Discontinued 90 mg PO TWICE A DAY 60 0 June 21, 2018 1:00am July 03, 2018 5:04pm traMADol hydrochloride 50 mg oral tablet (8 sources) Opioid Agonist Start: 04-24-2024 End: 05-28-2024 take 1 tablet by mouth every six hours as needed for pain Tramadol 50 mg tablet Discontinued 50 mg PO EVERY 6 HOURS as needed for pain 7 0 April 24, 2024 12:00am May 28, 2024 11:14am Postoperative pain Other acute postprocedural pain triamcinolone acetonide 40 mg/ml injectable suspension (2 sources) Corticosteroid Start: 10-24-2018 End: 10-24-2018 Kenalog (triamcinolone acetonide) 40 mg/mL suspension for injection Discontinued 80 MG INTRAARTIC ONCE 2 October 24, 2018 1:29pm October 24, 2018 2:43pm Start: 12-06-2017 End: 12-06-2017 Kenalog (triamcinolone aceto nide) 10 mg/mL suspension for injection Discontinued 2 MG INTRAARTIC ONCE 0.2 December 06, 2017 1:37pm December 06, 2017 2:27pm Vitamin E (10 sources) Start: 03-25-2021 End: 08-05-2021 Vitamin E Discontinued 1 SUZANNE LIC TOPICAL every day in the morning and at bedtime March 25, 2021 1:34pm August 05, 2021 4:31pm Start: 03-25-2021 End: 08-05-2021 Vitamin E Discontinued 1 SUZANNE LIC TOPICAL every day in the morning and at bedtime March 24, 2021 11:00pm August 05, 2021 3:31pm Start: 03-25-2021 End: 08-05-2021 Vitamin E Discontinued 1 SUZANNE LIC TOPICAL every day in the morning and at bedtime March 25, 2021 12:00am August 05, 2021 4:31pm Vitamin E oil (8 sources) Start: 03-25-2021 End: 08-05-2021 Vitamin E oil Discontinued 1 NMA TOPICAL every day in the morning and at bedtime March 25, 2021 12:00am August 05, 2021 4:31pm Problems Active Problems Problem Classification Problem Date Documented Da te Episodic/Chronic Asthma (1 source) Asthma; Translations: [Unspecified asthma, uncomplicated] Onset: 6 10-02-2015 Chronic Cardiac dysrhythmias (20 sources) Ventricular premature beats; Translations: [Ventricular premature depolarization] Onset: Chronic Cardiac dysrhythmias (20 sources) Palpitations; Translations: [Palpitations] 08-10-2021 Episodic Chronic obstructive pulmonary disease and bronchiectasis (18 sources) Bronchitis; Translations: [Bronchitis, not specified as acute or chronic] 11-23-2018 Episodic Conditions associated with dizziness or vertigo (1 source) Meniere's disease; Translations: [Meniere's disease, unspecified ear] Onset: 6 10-02-2015 Chronic Coronary atherosclerosis and other heart disease (20 sources) Coronary atherosclerosis; Translations: [Atherosclerotic heart disease 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] Onset: 5 Chronic Comment on above: STEMI, ALLIE to mid la d (2.5 X 20 Promus Synergy), ALLIE to proximal Diagonal #1 (2.25 X 16 Promus Synergy) per Dr. Warner @ [facility] Disorders of lipid metabolism (20 sources) Hyperlipidemia; Translations: [Hyperlipidemia, unspecified] Onset: 5 Chronic Esophageal disorders (1 source) Gastroesophageal reflux disease; Translations: [Gastro-esophageal reflux disease without esophagitis] Onset: 6 10-02-2015 Chronic Essential hypertension (20 sources) Essential hypertension; Translations: [Essential (primary) hypertension] Onset: 5 Chronic Fluid and electrolyte disorders (12 sources) Hypokalemia; Translations: [Hypokalemia] 08-11-2022 Episodic Genitourinary symptoms and ill-defined conditions (1 source) Urgency of urination; Translations: [Urgency of urination] Onset: 5 Episodic Headache; including migraine (18 sources) Headache; Translations: [Headache] 07-08-2021 Episodic Immunity disorders (1 source) Polyclonal hypergammaglobulinemia ; 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 ] Onset: 5 05-20-2015 Chronic Nausea and vomiting (8 sources) Nausea and vomiting; Translations: [Nausea with vomiting, unspecified] 04-16-2024 Episodic Non-Hodgkin`s lymphoma (2 sources) Waldenstrom macroglobulinemia; Translations: [WALDENSTROM MACROGLOBULINEMIA] Onset: 9 Chronic Nonspecific chest pain (18 sources) Atypical chest pain 08-18-2021 Episodic Nutritional deficiencies (1 source) Vitamin D deficiency; Translations: [Vitamin D deficiency, unspecified] Onset: 6 10-02-2015 Chronic Osteoarthritis (7 sources) Osteoarthrosis of the carpometacarpal joint of the thumb; Translations: [Arthritis of hip] Onset: 4 03-12-2014 Chronic Osteoporosis (11 sources) Osteoporosis; Translations: [Age-related osteoporosis without current pathological fracture] 10-26-2023 Chronic Other acquired deformities (8 sources) Degenerative spondylolisthesis; Translations: [Spondylolisthesis, site unspecified] 10-26-2023 Episodic Other acquired deformities (12 sources) Lumbar spondylolisthesis; Translations: [Spondylolisthesis, lumbar region] 12-17-2024 Episodic Other aftercare (10 sources) Follow-up status; Translations: [Encounter for other orthopedic aftercare] 08-13-2024 Episodic Other connective tissue disease (16 sources) Triggering of digit; Translations: [Trigger finger, unspecified finger] 07-04-2024 Episodic Other connective tissue disease (1 source) Trigger finger of right hand; Translations: [Trigger finger, unspecified finger] 07-04-2024 Episodic Other gastrointestinal disorders (1 source) Irritable bowel syndrome; Translations: [Irritable bowel syndrome without diarrhea] Onset: 6 10-02-2015 Chronic Other liver diseases (9 sources) Elevated liver enzymes level; Translations: [Abnormal levels of other serum enzymes] 04-15-2024 Episodic Other lower respiratory disease (18 sources) Dyspnea on exertion; Translations: [Dyspnea, unspecified] 10-07-2021 Episodic Other nervous system disorders (1 source) Ulnar neuropathy; Translations: [Lesion of ulnar nerve, left upper limb] Onset: 4 03-12-2014 Chronic Other nervous system disorders (8 sources) Acute postoperative pain; Translations: [Other acute postprocedural pain] 07-31-2024 Episodic Other non-traumatic joint disorders (16 sources) Hip pain; Translations: [Pain in right hip] 04-05-2022 Episodic Comment on above: steroid shot 03/23/22 Other non-traumatic joint disorders (1 source) Pain in right hip; Translations: [Pain in right hip] Onset: 5 Episodic Other screening for suspected conditions (not mental disorders or infectious disease) (1 source) Encounter for screening mammogram for malignant neoplasm of breast; Translations: [Encounter for screening mammogram for malignant neoplasm of breast] Onset: 5 Episodic Residual codes; unclassified (18 sources) Peripheral edema; Translations: [Edema, unspecified] 09-03-2021 Episodic Residual codes; unclassified (17 sources) Edema; Translations: [Edema, unspecified] 10-07-2021 Episodic Spondylosis; intervertebral disc disorders; other back problems (12 sources) Degeneration of lumbar intervertebral disc; Translations: [Degenerative disc disease (DDD) of lumbar region with axial back pain without leg leonel] 12-17-2024 Chronic Systemic lupus erythematosus and connective tissue disorders (1 source) Other giant cell arteritis; Translations: [OTHER GIANT CELL ARTERITIS] Onset: 9 Chronic Thyroid disorders (1 source) Hypothyroidism; Translations: [Hypothyroidism, unspecified] Onset: 6 10-02-2015 Chronic Unclassified (3 sources) Spondylolisthesis of lumbar region Unclassified (3 sources) Unclassified (4 sources) M43.16 - Spondylolisthesis, lumbar region,M51.360 - Other intervertebral disc degeneration, lumbar region with discogenic back pain only Urinary tract infections (18 sources) Urinary tract infectious disease; Translations: [Urinary tract infection, site not specified] 08-06-2020 Episodic Viral infection (12 sources) Disease caused by 2019-nCoV; Translations: [COVID-19] 08-11-2022 Episodic Past or Other Problems Problem Classification Problem Date Documented Da te Episodic/Chronic Biliary tract disease (20 sources) Common bile duct calculus; Translations: [Calculus of bile duct without cholangitis or cholecystitis without obstruction] Onset: 4 04-26-2024 Episodic Other acquired deformities (1 source) Spondylolisthesis, lumbar region; Translations: [Spondylolisthesis, lumbar region] Onset: 5 Episodic Other bone disease and musculoskeletal deformities (1 source) Osteopenia; Translations: [Other specified disorders of bone density and structure, unspecified site] Onset: 6 10-02-2015 Episodic Other connective tissue disease (2 sources) Pain in thumb ; Translations: [Bicipital tenosynovitis] Onset: 4 03-12-2014 Episodic Other connective tissue disease (1 source) Trigger finger, right middle finger; Translations: [Trigger finger, right middle finger] Onset: 5 Episodic Other gastrointestinal disorders (1 source) Encounter for fitting and adjustment of other gastrointestinal appliance and device; Translations: [Encounter for fitting and adjustment of other gastrointestinal appliance and device] Onset: 5 Episodic Other liver diseases (1 source) Abnormal levels of other serum enzymes; Translations: [Abnormal levels of other serum enzymes] Onset: 4 Episodic Other lower respiratory disease (2 sources) Dyspnea, unspecified; Translations: [Other respiratory abnormalities] Onset: 5 Episodic Other nervous system disorders (1 source) Paresthesia of lower extremity; Translations: [Paresthesia of skin] Onset: 6 01-20-2016 Episodic Other non-traumatic joint disorders (2 sources) Pain in unspecified shoulder; Translations: [Hand joint pain] Onset: 4 01-30-2014 Episodic Residual codes; unclassified (1 source) Acquired absence of other specified parts of digestive tract; Translations: [Acquired absence of other specified parts of digestive tract] Onset: 4 Episodic Spondylosis; intervertebral disc disorders; other back problems (13 sources) Lumbar radiculopathy; Translations: [Spinal stenosis of lumbar region] Onset: 4 06-17-2014 Episodic Sprains and strains (1 source) Sprain of carpometacarpal joint; Translations: [Sprain of carpometacarpal (joint) of hand] Onset: 4 04-12-2014 Episodic Unclassified (1 source) Family history of malignant neoplasm of trachea, bronchus and lung; Translations: [Family history of malignant neoplasm of trachea, bronchus and lung] 05-06-2015 Episodic Unclassified (1 source) Screening for malignant neoplasm of colon ; Translations: [Encounter for screening for malignant neoplasm of colon] Onset: 6 Resolved: 6 01-20-2016 Results Test Name Value Interpretation Reference Range Facility SCRN MAMM (CAD)Myra/ZACK Nelson n 04-02-2025 SCRN MAMM (CAD)W/ZACK ENWELL [facility] Imaging Services [address] [place] [id number] SCRN MAMM (CAD)W/ZACK NEWELL MR#: [id number] Acct: [id number] Name: CHELSEY BELTRAN Rep #: [id number] : 1950 F 74 From: Chelsi Weathers i, MD PCP: Dr. Kanika Mike, DO Status: REG CLI Study: SCRN MAMM (CAD)W/ZACK BILAT Date of Exam: 01/18 Exam# [id number] Ordering Dr: Kanika Mike DO EXAM: SCRN MAMM (CAD)W/ZACK BILAT DATE: 04/02/2025 CLINICAL HISTORY: F, Age 74 y/o , SCREENING TECHNIQUE: Procedure Code: [id number] Modality: MG Procedure: SCRN MAMM (CAD)W/ZACK BILAT COMPARISON: Prior exam(s) were compared FINDINGS: TISSUE DENSITY: There are scattered areas of fibroglandular density. Bilateral Breast Mammographic Findings: No suspicious masses, calcifications or other abnormalities are identified. BI/SCRN MAMM (CAD)W/ZACK BILAT IMPRESSION: No mammographic evidence of malignancy in either breast. OVERALL FINAL ASSESSMENT BI-RADS 1: NEGATIVE. RECOMMENDATION: Routine annual follow-up in 1 Year Additional Recommendation none A letter with findings and recommendations will be mailed to the patient. Reading Location: [id number] CC: Dr. Kanika Mike DO Floral Artist: Signed Normal [facility] HIP, UNI W/ Pelvis 2-3 Views on 03-05-2025 HIP, UNI W/ Pelvis 2-3 Views [facility] Imaging Services [address] [place], [place] [address] HIP, UNI W/ Pelvis 2-3 Views MR#: [id number] Acct: [id number] Name: CHELSEY BELTRAN Rep #: [id number] : 1950 F 74 From: Robert Arellano MD PCP: Dr. Kanika Mike, DO Status: REG CLI Study: HIP, UNI W/ Pelvis 2-3 Views Date of Exam: 03/21 Exam# [id number] Ordering Dr: Charlie Reed MD PROCEDURE: HIP, UNI W/ PELVIS 2-3 VIEWS 03/05/2025 REASON FOR EXAM: HIP PAIN TECHNIQUE: Procedure Code: RAD Modality: DX Procedure: HIP, UNI W/ PELVIS 2-3 VIEWS Laterality: COMPARISON: 09/29/2020. FINDINGS: No evidence of acute fracture or dislocation. Severe right and mild left hip osteoarthrosis. Degenerative changes of the partially visualized spine. RAD/HIP, UNI W/ Pelvis 2-3 Views IMPRESSION: [id number] t hip osteoarthrosis. Reading Location: [id number] CC: Dr. Kanika Mike DO; Dr. Charlie Reed MD Floral Artist: Signed Normal [facility] Urine Cultureon 01-26-2025 URC #1 Below infection level. GNR Poss Pseudomonas sp [place] Count <1000 Mixed Gram Positive Organisms Mixed Gram Positive Organisms MIXC Mixed contaminants. Submit a new specimen if indicated. Normal [facility] Comment on above: Performed By: #### M 100.2199, L4.2010 ####[facility] [address] [place], [place], [id number] Bilirubin Test strip Ql (U)O rdered By: Kanika Mike on 01-24-2025 Bilirubin Ql (U) Negative Negative [facility] Ketones Test strip Ql (U)Ord ered By: Kanika Mike on 01-24-2025 Ketones Ql (U) Negative Negative [facility] Protein Test strip Ql (U)Ord ered By: Kanika Mike on 01-24-2025 Protein Ql (U) 15 mg/dl High Negative [facility] Urinalysis, Routine (Dipstic k)on 01-24-2025 BILIRUBIN URINE Negative Normal Negative [facility] Comment on above: Order Comment: CLEAN CATCH Performed By: #### M 100.2199, L400.2010 ####[facility] [address] [place], [place], [address] GLUCOSE, UR Normal Normal Normal [facility] Comment on above: Order Comment: CLEAN CATCH Performed By: #### M 100.2199, L4 ####[facility] [address] [place], [address] KETONE UR Negative Normal Negative [facility] Comment on above: Order Comment: CLEAN CATCH Performed By: #### M ####[facility] [address] [place], [address] LEUK ESTERASE 25 /ul Abnormal Negative [facility] Comment on above: Order Comment: CLEAN CATCH Performed By: #### M ####[facility] [address] [place], [address] OCCULT BLOOD-UR 10 /ul Abnormal Negative [facility] Comment on above: Order Comment: CLEAN CATCH Performed By: #### M ####[facility] [address] [place], [address] pH UR 6.0 Normal 5.0 - 8.0 [facility] Comment on above: Order Comment: CLEAN CATCH Performed By: #### M ####[facility] [address] [place], [address] PROT DIPSTX 15 mg/dl Abnormal Negative [facility] Comment on above: Order Comment: CLEAN CATCH Performed By: #### M ####[facility] [address] [place], [address] SP.GR. DIPSTX 1.015 Normal 1.002-1.03 0 [facility] Comment on above: Order Comment: CLEAN CATCH Performed By: #### M ####[facility] [address] [place], [address] UROBILI Normal Normal Normal [facility] Comment on above: Order Comment: CLEAN CATCH Performed By: #### M ####[facility] [address] [place], [place], [id number] Urine clarityOrdered By: Marva Mike on 01-24-2025 Clarity (U) Clear Normal Clear [facility] Comment on above: Order Comment: CLEAN CATCH Performed By: #### M 100.2200, L400.2010 ####[facility] [address] [place], [place], [id number] Urine color determinationOrd ered By: Kanika Mike on 01-24-2025 Color (U) Yellow Normal Yellow [facility] Comment on above: Order Comment: CLEAN CATCH Performed By: #### M 100.2200, L4.2010 ####[facility] [address] [place], [place], [phone] Urine cultureOrdered By: Marva Mike on 01-24-2025 Bacteria identified Cx Nom (U) GNR Poss Pseudomonas sp Abnormal [facility] Bacteria identified Cx Nom (U) Positive Abnormal [facility] Urine glucose detectionOrder ed By: Kanika Mike on 01-24-2025 Glucose Ql (U) Normal mg/dl Normal [facility] Urine leukocyte esterase det ection by dipstickOrdered By: Kanika Mike on 01-24-2025 Leukocyte esterase Test strip Ql (U) 25 /ul High Negative [facility] Urine nitrite test by dipsti ckOrdered By: Kanika Mike on 01-24-2025 Nitrite Ql (U) Negative Normal Negative [facility] Comment on above: Order Comment: CLEAN CATCH Performed By: #### M 100.2200, L400.2010 ####[facility] [address] [place], [place], [id number] Urine pHOrdered By: Kanika villalobos on 01-24-2025 pH (U) 6.0 [pH] 5.0 - 8.0 [facility] Urine specific gravity measu rementOrdered By: Kanika Mike on 01-24-2025 Specific gravity (U) [Rel density] 1.015 1.002-1.03 0 [facility] Urine urobilinogen measureme ntOrdered By: Kanika Mike on 01-24-2025 Urobilinogen Ql (U) Normal mg/dl [facility] Reporton Orthopedic Visit Report [facility] [address] [place] [address] [address] [place] [address] OFFICE VISIT Date of Service: 01/09/25 MR#: [id number] Acct: [id number] Name: CHELSEY BELTRAN Rep #: [id number] : 1950 Provider: Dr. Juan Toney MD Age/Sex: 74/F [place] [facility] [place] Status: Signed Intake Vital Signs 12/17/24 14:50 01/09/25 14:56 Height 5 ft 1 in 5 ft 1 in Weight: 166 lb 165 lb BMI 31.4 31.1 Intake Visit Reasons: LUMBAR SPINE Chief Complaint: Lumbar spine MRI review Accompanied by: Self Is patient in pain?: Yes Pain scale (1-10): 5 Allergies clarithromycin (From Biaxin) Allergy (Verified 01/09/25 14:59) Rash sulfamethoxazole (From Bactrim) Allergy (Verified 01/09/25 14:59) Rash trimethoprim (From Bactrim) Allergy (Verified 01/09/25 14:59) Rash carvedilol (From Coreg) Adverse Reaction (Intermediate, Verified 01/09/25 14:59) Nausea, Lightheaded codeine Adverse Reaction (Verified 01/09/25 14:59) Upset Stomach lisinopril Adverse Reaction (Verified 01/09/25 14:59) cough Penicillins Adverse Reaction (Verified 01/09/25 14:59) Other Medications ???Medication ???Instructions ???Recorded ???Confirmed ???Type levothyroxine 50 mcg tablet 50 mcg PO DAILY Thyroid 12/31/16 0 01/09/25 History acetaminophen 500 mg tablet 500 - 1,000 mg PO DAILY PRN PRN 01/09/25 History Pain 1-10 Or Fever omeprazole 40 mg capsule,delayed 40 mg PO BID gerd 08/05/21 5 History release atorvastatin 80 mg tablet 80 mg PO QHS cholesterol 08/08/21 01/09/25 History hydrochlorothiazide 25 mg tablet 25 mg PO DAILY diuretic 08/28/21 0 01/09/25 History cholecalciferol (vitamin D3) 50 2,000 unit PO DAILY SUPPLEMENT 04/1701/09/25 History mcg (2,000 unit) capsule mecobalamin (vitamin B12) 1,000 1,000 mcg sublingual DAILY 4 01/09/25 History mcg disintegrating supplement tablet,sublingual losartan 25 mg tablet 25 mg PO DAILY blood pressure #90 06/18/24 01/09/25 Rx tabs metoprolol tartrate 50 mg tablet 50 mg PO QDAY BP 12/07/24 01/09/25 History Have you fallen in the past year?: No PFSH Medical History (Updated 01/09/25 @ 15:32 by Laurita Stahl RN) Arthritis of right hip Osteoporosis Wears glasses Post-menopausal Rheumatoid arthritis Ambulates with cane Polymyalgia rheumatica High cholesterol Giant cell arteritis Ulcerative colitis Non-smoker History of atrial fibrillation History of echocardiogram History of stress test Cardiology follow-up encounter Hypertension CAD (coronary artery disease) COVID-19 ( 06/2021) History of coronary artery disease Monoclonal gammopathy of unknown significance (MGUS) Monoclonal gammopathy Temporal arteritis Osteoarthritis of left shoulder Asthma HLD (hyperlipidemia) HTN (hypertension) Atherosclerotic heart disease 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 Acute ST elevation myocardial infarction GERD (gastroesophageal reflux disease) Hypothyroidism 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 Retinal tear of left eye Ulnar neuropathy Polyclonal gammopathy IBS (irritable bowel syndrome) Vitamin D deficiency Osteopenia Incontinence Knee pain PVC's (premature ventricular contractions) SOB (shortness of breath) Arthritis Surgical History History of ERCP Hx laparoscopic cholecystectomy S/P cholecystectomy History of cataract extraction with lens replacement History of coronary artery stent placement History of cardiac catheterization History of temporal artery biopsy ( 12/2018) History of delivery Stented coronary artery (06/20/18) History of dilatation and curettage Hx of breast biopsy Hx of tonsillectomy Family History Mother Cancer skin Anemia Father Cancer Heart disease Social History Smoking Status: Never smoker alcohol intake: never substance use type: does not use caffeine: No HPI LUMBAR SPINE Details: This documentation accurately reflects the service provided and the decisions made by me, Dr. Juan Toney MD 01/09/25 2173. Part of today???s visit was documented by Angeles Ruelas MA and Laurita Stahl RN, acting as scribe. CHELSEY BELTRAN is a 74 year old F here today for lumbar spine MRI review. She presents ambulating with a cane, she states she has needed this for the last 4-5 years She has severe arthritis in her hips and this was the reason she started using the cane. The low back pain is worse on the left side when she is weight bearing. The pain radiates down the posterior leg down to the ankle. She occasionally reports pain in the lateral leg. She cannot walk long distances with (more content not included)... Normal [facility] Magnetic resonance imaging r eportOrdered By: Jared Holder on 01-02-2025 Study report [facility] Imaging Services [address] [place] [address] Spine Lumbar (Routine) MR#: [id number] Acct: [id number] Name: CHELSEY BELTRAN Rep #: [id number] : 1950 F 74 From: Luis Holder MD PCP: Dr. Kanika Mike, DO Status: REG CLI Study:Spine Lumbar (Routine) Date of Exam: 01/01/25 Exam# [id number] Ordering Dr: Derick Schroeder PROCEDURE: SPINE LUMBAR (ROUTINE) 01/01/2025 REASON FOR EXAM: PAIN TECHNIQUE: SPINE LUMBAR (ROUTINE) COMPARISON: 12-18-2023 CR FINDINGS: 1st degree anterolithesis of L4 over L5 and L5 over S1 with bilateral L4-L5 and L5-S1 arthropathy. No obvious vertebral fractures or structural collapse. Multilevel marginal lipping and subchondral degenerative marrow signal/Modio II of the thoraco-lumbar vertebral end plates. Multilevel reduced height and bright T2 signal of the intervertebral discs denoting their desiccation are noted. Multilevel ligamenta flava hypertrophy with multilevel degenerative facet arthropathy opposite L2-L3 down to L5-S1 adding to the central canal and neural foraminal stenosis. Level by level analysis: T12-L1: a 1 mm diffuse disc bulge indenting thecal sac and encroaching upon the related neural foramina inducing mild exiting nerve root compression. L1-L2: a 1 mm diffuse disc bulge indenting thecal sac and encroaching upon the related neural foramina inducing mild exiting nerve root compression. L2-L3: a 1 mm diffuse disc bulge indenting thecal sac and encroaching upon the related neural foramina inducing mild exiting nerve root compression. L3-L4: a 2.6 mm diffuse disc bulge indenting thecal sac and encroaching upon therelated neural foramina inducing moderate exiting nerve root compression. L4-L5: a diffuse disc pseudo-bulge indenting thecal sac and encroaching upon therelated neural foramina inducing marked exiting nerve root compression. L5-S1: a diffuse disc pseudo-bulge indenting thecal sac and encroaching upon therelated neural foramina inducing marked exiting nerve root compression. The lower thoracic spinal cord, conus medullaris, and cauda equina nerve roots are unremarkable. No marrow infiltrative lesions. Paravertebral soft tissue is unremarkable. No developmental canal stenosis. Orthostatic edema of the back. MRI/Spine Lumbar (Routine) IMPRESSION: L4 and L5 1st degree anterolithesis. Lumbar spondylosis with multilevel discs pathologies, facet arthropathy and hypertrophied ligamenta flava inducing variable degrees of spinal canal and neural exit pathways stenosis, as detailed. Reading Location: [place] [address] CC: NINOSKA Burnette; Dr. Kanika Mike DO ~ Floral Artist: Signed [facility] Spine Lumbar (Routine)on Spine Lumbar (Routine) [facility] Imaging Services [address] [place] [id number] Spine Lumbar (Routine) MR#: [id number] Acct: [id number] Name: CHELSEY BELTRAN Rep #: [id number] : 1950 F 74 From: Jared mcneal MD PCP: Dr. Kanika Mike DO Status: REG CLI Study: Spine Lumbar (Routine) Date of Exam: 01/01/25 Exam# [id number] Ordering Dr: Rylie Schroeder PROCEDURE: SPINE LUMBAR (ROUTINE) 01/01/2025 REASON FOR EXAM: PAIN TECHNIQUE: SPINE LUMBAR (ROUTINE) COMPARISON: 12-18-2023 CR FINDINGS: 1st degree anterolithesis of L4 over L5 and L5 over S1 with bilateral L4-L5 and L5-S1 arthropathy. No obvious vertebral fractures or structural collapse. Multilevel marginal lipping and subchondral degenerative marrow signal/Modio II of the thoraco- lumbar vertebral end plates. Multilevel reduced height and bright T2 signal of the intervertebral discs denoting their desiccation are noted. Multilevel ligamenta flava hypertrophy with multilevel degenerative facet arthropathy opposite L2-L3 down to L5-S1 adding to the central canal and neural foraminal stenosis. Level by level analysis: T12-L1: a 1 mm diffuse disc bulge indenting thecal sac and encroaching upon the related neural foramina inducing mild exiting nerve root compression. L1-L2: a 1 mm diffuse disc bulge indenting thecal sac and encroaching upon the related neural foramina inducing mild exiting nerve root compression. L2-L3: a 1 mm diffuse disc bulge indenting thecal sac and encroaching upon the related neural foramina inducing mild exiting nerve root compression. L3-L4: a 2.6 mm diffuse disc bulge indenting thecal sac and encroaching upon the related neural foramina inducing moderate exiting nerve root compression. L4-L5: a diffuse disc pseudo-bulge indenting thecal sac and encroaching upon the related neural foramina inducing marked exiting nerve root compression. L5-S1: a diffuse disc pseudo-bulge indenting thecal sac and encroaching upon the related neural foramina inducing marked exiting nerve root compression. The lower thoracic spinal cord, conus medullaris, and cauda equina nerve roots are unremarkable. No marrow infiltrative lesions. Paravertebral soft tissue is unremarkable. No developmental canal stenosis. Orthostatic edema of the back. MRI/Spine Lumbar (Routine) IMPRESSION: L4 and L5 1st degree anterolithesis. Lumbar spondylosis with multilevel discs pathologies, facet arthropathy and hypertrophied ligamenta flava inducing variable degrees of spinal canal and neural exit pathways stenosis, as detailed. Reading Location: [place] [address] CC: NINOSKA Burnette; Dr. Kanika Mike DO Floral Artist: Signed Normal [facility] L/S Spine Min 4 Viewson 11-26 L/S Spine Min 4 Views [facility] Imaging Services [address] [place], [place] [address] L/S Spine Min 4 Views MR#: [id number] Acct: [id number] Name: CHELSEY BELTRAN Rep #: [id number] : 1950 F 74 From: Jared mcneal MD PCP: Dr. Kanika Mike DO Status: DEP AMB Study: L/S Spine Min 4 Views Date of Exam: 12/17/24 Exam# [id number] Ordering Dr: Rylie Schroeder PROCEDURE: L/S SPINE MIN 4 VIEWS 12/17/2024 REASON FOR EXAM: BACK PAIN TECHNIQUE: L/S SPINE MIN 4 VIEWS COMPARISON: 10/26/2023. FINDINGS: Mild degenerative levoscoliosis apex at L3. Grade 1 anterolisthesis of L4 on L5, unchanged. No evidence of instability on flexion/extension images. Unchanged exaggerated lumbar lordosis. Calcified atheromatous plaques of the aorta and its branches. There are diffuse spondylotic changes. Findings are demonstrated to by diffuse disc space narrowing, osteophyte formation and degenerative endplate sclerosis. There is diffuse facet joint arthropathy with secondary bilateral neural foramina narrowing. No fracture or dislocation is seen. No aggressive lytic or blastic bony lesion is noted. RAD/L/S Spine Min 4 Views IMPRESSION: Mild degenerative levoscoliosis apex at L3. Grade 1 anterolisthesis of L4 on L5, unchanged. No evidence of instability on flexion/extension images. Unchanged exaggerated lumbar lordosis. Calcified atheromatous plaques of the aorta and its branches. Reading Location: [facility] CC: NINOSKA Burnette; Dr. Kanika Mike DO Floral Artist: Signed Normal [facility] Orthopedic Visit Reporton Orthopedic Visit Report [facility] [address] [facility] [address] [place] [address] OFFICE VISIT Date of Service: 12/17/24 MR#: [id number] Acct: [id number] Name: CHELSEY BELTRAN Rep #: [id number] : 1950 Provider: NINOSKA Burnette Age/Sex: 74/F Location[place] [facility] [place] Status: Signed Intake Vital Signs 07/31/24 06:27 12/07/24 13:23 12/17/24 14:50 Height 5 ft 1 in 5 ft 1 in 5 ft 1 in Weight: 166 lb 166 lb BMI 31.4 31.4 BP 99/56 L Blood Pressure Location Lt brachial Position Sitting Respiration 16 Pulse 67 Pulse Source Monitor Intake Visit Reasons: LUMBAR SPINE Chief Complaint: Lumbar spine pain Accompanied by: Self Is patient in pain?: Yes Pain scale (1-10): 7 Allergies clarithromycin (From Biaxin) Allergy (Verified 12/17/24 14:54) Rash sulfamethoxazole (From Bactrim) Allergy (Verified 12/17/24 14:54) Rash trimethoprim (From Bactrim) Allergy (Verified 12/17/24 14:54) Rash carvedilol (From Coreg) Adverse Reaction (Intermediate, Verified 12/17/24 14:54) Nausea, Lightheaded codeine Adverse Reaction (Verified 12/17/24 14:54) Upset Stomach lisinopril Adverse Reaction (Verified 12/17/24 14:54) cough Penicillins Adverse Reaction (Verified 12/17/24 14:54) Other Medications ???Medication ???Instructions ???Recorded ???Confirmed ???Type levothyroxine 50 mcg tablet 50 mcg PO DAILY Thyroid 12/31/16 0 12/17/24 History acetaminophen 500 mg tablet 500 - 1,000 mg PO DAILY PRN PRN 12/17/24 History Pain 1-10 Or Fever omeprazole 40 mg capsule,delayed 40 mg PO BID gerd 08/05/21 5 History release atorvastatin 80 mg tablet 80 mg PO QHS cholesterol 08/08/21 12/17/24 History hydrochlorothiazide 25 mg tablet 25 mg PO DAILY diuretic 08/28/21 0 12/17/24 History cholecalciferol (vitamin D3) 50 2,000 unit PO DAILY SUPPLEMENT 04/1712/17/24 History mcg (2,000 unit) capsule mecobalamin (vitamin B12) 1,000 1,000 mcg sublingual DAILY 4 12/17/24 History mcg disintegrating supplement tablet,sublingual losartan 25 mg tablet 25 mg PO DAILY blood pressure #90 06/18/24 12/17/24 Rx tabs metoprolol tartrate 50 mg tablet 50 mg PO QDAY BP 12/07/24 12/17/24 History Have you fallen in the past year?: No PFSH Medical History Wears glasses Post-menopausal Rheumatoid arthritis Ambulates with cane Polymyalgia rheumatica High cholesterol Giant cell arteritis Ulcerative colitis Non-smoker History of atrial fibrillation History of echocardiogram History of stress test Cardiology follow-up encounter Hypertension CAD (coronary artery disease) COVID-19 ( 06/2021) History of coronary artery disease Monoclonal gammopathy of unknown significance (MGUS) Monoclonal gammopathy Temporal arteritis Osteoarthritis of left shoulder Asthma HLD (hyperlipidemia) HTN (hypertension) Atherosclerotic heart disease 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 Acute ST elevation myocardial infarction GERD (gastroesophageal reflux disease) Hypothyroidism 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 Retinal tear of left eye Ulnar neuropathy Polyclonal gammopathy IBS (irritable bowel syndrome) Vitamin D deficiency Osteopenia Incontinence Knee pain PVC's (premature ventricular contractions) SOB (shortness of breath) Arthritis Surgical History History of ERCP Hx laparoscopic cholecystectomy S/P cholecystectomy History of cataract extraction with lens replacement History of coronary artery stent placement History of cardiac catheterization History of temporal artery biopsy ( 12/2018) History of delivery Stented coronary artery (06/20/18) History of dilatation and curettage Hx of breast biopsy Hx of tonsillectomy Family History Mother Cancer skin Anemia Father Cancer Heart disease Social History Smoking Status: Never smoker alcohol intake: never substance use type: does not use caffeine: No HPI LUMBAR SPINE Details: This documentation accurately reflects the service provided and the decisions made by me, NINOSKA Burnette 12/17/24 1450. Part of today???s visit was documented by Angeles Ruelas MA, acting as scribe. CHELSEY BELTRAN is a 74 year old F here today for lumbar spine. Patient is having pain in the lower back and in the SI joint. The pain in the lower back can get severe at times. The pain can be really sore. Patient states that the pain goes down the left leg. She states that she gets numbness and tingling in the left leg. Tingling down the back of the left thigh to the calf (more content not included)... Normal [facility] Cardiology Visit Reporton Cardiology Visit Report [facility] [address] [place] [address] OFFICE VISIT Date of Service: 12/07/24 MR#: [id number] Acct: [id number] Name: CHELSEY BELTRAN Rep #: [id number] : 1950 Provider: Dr. Wilton brown MD Age/Sex: 74/F [place] [facility] Status: Signed HPI HPI History of Present Illness Details: Patient is a very pleasant 74-year-old white female that comes today for monitoring of her cardiovascular disease. Patient carries a history of paroxysmal atrial fibrillation she is very symptomatic and denies having any recurring symptoms since her original presentation in July 2021 when she had COVID. Patient also carries a history of coronary artery disease status post stenting of the LAD and diagonal by Dr. Destin Warner back in 2018. She denies any recurrence of any anginal symptoms. Patient also carries a history of hyperlipidemia, hypertension, monoclonal gammopathy, temporal arteritis, gastroesophageal reflux disease, and chronic corticosteroid therapy. Since her last office visit here November 2023 the patient has undergone multiple surgical interventions under general anesthesia. Some of these were from GI related issues. Somewhere orthopedic. The patient did not have any recurrence of atrial fibrillation with the surgical interventions and she is well aware when she goes into atrial fibrillation she is very symptomatic. The patient was started on Eliquis at the time of her atrial fibrillation in 2021. Due to the cost of $140???$150 per month we had stopped the Eliquis in November 2023. She is to use it as a pill in a pocket along with an extra dose of metoprolol should she going to atrial fibrillation. The patient has had no recurrence since her original event in 2021 related to COVID. The patient denies any anginal type symptoms she denies any PND orthopnea denies any lower extremity edema. ECG in office today shows sinus rhythm at 66 bpm with poor R wave progression but otherwise unremarkable and is within normal limits. This was done with her seated in a wheelchair. Intake Vital Signs 07/31/24 06:27 12/07/24 13:23 Height 5 ft 1 in 5 ft 1 in Weight: 166 lb BMI 31.4 BP 99/56 L Blood Pressure Location Lt brachial Position Sitting Respiration 16 Pulse 67 Pulse Source Monitor Intake Visit Reasons: 1 Y FU [employer] Required: No Accompanied by: Self Is patient in pain?: No Allergies clarithromycin (From Biaxin) Allergy (Verified 12/07/24 13:30) Rash sulfamethoxazole (From Bactrim) Allergy (Verified 12/07/24 13:30) Rash trimethoprim (From Bactrim) Allergy (Verified 12/07/24 13:30) Rash carvedilol (From Coreg) Adverse Reaction (Intermediate, Verified 12/07/24 13:30) Nausea, Lightheaded codeine Adverse Reaction (Verified 12/07/24 13:30) Upset Stomach lisinopril Adverse Reaction (Verified 12/07/24 13:30) cough Penicillins Adverse Reaction (Verified 12/07/24 13:30) Other Medications ???Medication ???Instructions ???Recorded ???Confirmed ???Type levothyroxine 50 mcg tablet 50 mcg PO DAILY Thyroid 12/31/16 0 12/07/24 History acetaminophen 500 mg tablet 500 - 1,000 mg PO DAILY PRN PRN 12/07/24 History Pain 1-10 Or Fever omeprazole 40 mg capsule,delayed 40 mg PO BID gerd 08/05/21 5 History release atorvastatin 80 mg tablet 80 mg PO QHS cholesterol 08/08/21 12/07/24 History hydrochlorothiazide 25 mg tablet 25 mg PO DAILY diuretic 08/28/21 0 12/07/24 History cholecalciferol (vitamin D3) 50 2,000 unit PO DAILY SUPPLEMENT 04/1712/07/24 History mcg (2,000 unit) capsule mecobalamin (vitamin B12) 1,000 1,000 mcg sublingual DAILY 4 12/07/24 History mcg disintegrating supplement tablet,sublingual losartan 25 mg tablet 25 mg PO DAILY blood pressure #90 06/18/24 12/07/24 Rx tabs metoprolol tartrate 50 mg tablet 50 mg PO QDAY BP 12/07/24 History Ejection fraction %: 65 Have you fallen in the past year?: Yes [facility] Medical History Wears glasses Post-menopausal Rheumatoid arthritis Ambulates with cane Polymyalgia rheumatica High cholesterol Giant cell arteritis Ulcerative colitis Non-smoker History of atrial fibrillation History of echocardiogram History of stress test Cardiology follow-up encounter Hypertension CAD (coronary artery disease) COVID-19 ( 06/2021) History of coronary artery disease Monoclonal gammopathy of unknown significance (MGUS) Monoclonal gammopathy Temporal arteritis Osteoarthritis of left shoulder Asthma HLD (hyperlipidemia) HTN (hypertension) Atherosclerotic heart disease 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 Acute ST elevation myocardial infarction GERD (gastroesophageal reflux disease) Hypot (more content not included)... Normal [facility] Absolute lymphocyte countOrd ered By: Kanika Mike on 09-13-2024 Lymphocytes Auto (Unsp spec) [#/Vol] 1.51 10*3/uL 0.83-4.51 [facility] Absolute neutrophil countOrd ered By: Kanika Mike on 09-13-2024 Neutrophils (Bld) [#/Vol] 4.0 10*3/uL 2.0-7.7 [facility] Anion gap in Serum or Plasma Ordered By: Kanika Mike on 09-13-2024 Anion gap [Moles/Vol] 15 mmol/L 5-15 [facility] Automated lymphocyte count a s percentage of total leukocytesOrdered By: Kanika Mike on 09-13-2024 Lymphocytes/100 WBC Auto (Unsp spec) 24.2 % 19-41 [facility] BUN/creatinine ratioOrdered By: Kanika Mike on 09-13-2024 Urea nitrogen/Creatinine [Mass ratio] 16.7 mg/mg 10- [facility] Basophil percentageOrdered B y: Kanika Mike on 09-13-2024 Basophils/100 WBC (Bld) 0.6 % 0-1 [facility] Bilirubin, totalOrdered By: Kanika Mike on 09-13-2024 Bilirubin [Mass/Vol] 0.50 mg/dL 0.00-1.30 [facility] CBC W/Diff, Automatedon 08-26 Absolute Lymph 1.51 X10 3/uL Normal 0.83-4.51 [facility] Comment on above: Performed By: #### L 506.0400, L500.4050, L100.0100, L501.6710, L500.4100, L101.9900 #### [facility] [address] [place], [address] Absolute Neut 4.0 X10 3/uL Normal 2.0-7.7 [facility] Comment on above: Performed By: #### L 506.0400, L500.4050, L100.0100, L501.6710, L500.4100, L101.9900 #### [facility] [address] [place], [address] Basophils/100 WBC (Bld) 0.6 % Normal 0-1 [facility] Comment on above: Performed By: #### L 506.0400, L500.4050, L100.0100, L501.6710, L500.4100, L101.9900 #### [facility] [address] [place], [address] Eosinophils/100 WBC (Bld) 1.8 % Normal 0-5 [facility] Comment on above: Performed By: #### L 506.0400, L500.4050, L100.0100, L501.6710, L500.4100, L101.9900 #### [facility] [address] [place], [address] Erythrocyte distribution width (RBC) [Ratio] 14.6 % Normal 11.6-14.6 [facility] Comment on above: Performed By: #### L 506.0400, L500.4050, L100.0100, L501.6710, L500.4100, L101.9900 #### [facility] [address] [place], [address] Hematocrit (Bld) [Volume fraction] 35.5 % Low 37-47 [facility] Comment on above: Performed By: #### L 506.0400, L500.4050, L100.0100, L501.6710, L500.4100, L101.9900 #### [facility] [address] [place], [address] Hemoglobin (Bld) [Mass/Vol] 11.2 g/dL Low 12.0-15.0 [facility] Comment on above: Performed By: #### L 506.0400, L500.4050, L100.0100, L501.6710, L500.4100, L101.9900 #### [facility] [address] [place], [address] IG% 0.300 Normal 0.0-0.9 [facility] Comment on above: Result Comment: IG% - Immature Granulocytes (promyelocytes, myelocytes and metamyelocytes) > 1% indicates that a LEFT SHIFT is Present. Performed By: #### L 506.0400, L500.4050, L100.0100, L501.6710, L500.4100, L101.9900 #### [facility] [address] [place], [address] Lymphocytes/100 WBC (Bld) 24.2 % Normal 19-41 [facility] Comment on above: Performed By: #### L 506.0400, L500.4050, L100.0100, L501.6710, L500.4100, L101.9900 #### [facility] [address] [place], [address] MCH (RBC) [Entitic mass] 26.2 pg Low 27.0-32.0 [facility] Comment on above: Performed By: #### L 506.0400, L500.4050, L100.0100, L501.6710, L500.4100, L101.9900 #### [facility] [address] [place], [address] MCHC (RBC) [Mass/Vol] 31.5 g/dL Low 32-36 [facility] Comment on above: Performed By: #### L 506.0400, L500.4050, L100.0100, L501.6710, L500.4100, L101.9900 #### [facility] [address] [place], [address] MCV (RBC) [Entitic vol] 82.9 fL Normal 81-99 [facility] Comment on above: Performed By: #### L 506.0400, L500.4050, L100.0100, L501.6710, L500.4100, L101.9900 #### [facility] [address] [place], [address] Monocytes/100 WBC (Bld) 9.4 % Normal 0-10 [facility] Comment on above: Performed By: #### L 506.0400, L500.4050, L100.0100, L501.6710, L500.4100, L101.9900 #### [facility] [address] [place], [address] Neutrophils/100 WBC (Bld) 63.7 % Normal 47-70 [facility] Comment on above: Performed By: #### L 506.0400, L500.4050, L100.0100, L501.6710, L500.4100, L101.9900 #### [facility] [address] [place], [address] Nucleated RBC (Bld) [#/Vol] 0 10*3/uL Normal 0-5 [facility] Comment on above: Performed By: #### L 506.0400, L500.4050, L100.0100, L501.6710, L500.4100, L101.9900 #### [facility] [address] [place], [address] Platelet mean volume (Bld) [Entitic vol] 11.6 fL Normal 6.2-12.0 [facility] Comment on above: Performed By: #### L 506.0400, L500.4050, L100.0100, L501.6710, L500.4100, L101.9900 #### [facility] [address] [place], [address] Platelets (Bld) [#/Vol] 184 10*3/uL Normal 150-450 [facility] Comment on above: Performed By: #### L 506.0400, L500.4050, L100.0100, L501.6710, L500.4100, L101.9900 #### [facility] [address] [place], [address] RBC (Bld) [#/Vol] 4.28 10*6/uL Normal 4.2-5.4 [facility] Comment on above: Performed By: #### L 506.0400, [id number], L100.0100, L501.6710, L500.4100, L101.9900 #### [facility] [address] [place], [address] RDW SD 43.4 fl Normal 35.1-43.9 [facility] Comment on above: Performed By: #### L 506.0400, L500.4050, L100.0100, L501.6710, L500.4100, L101.9900 #### [facility] [address] [place], [address] WBC (Bld) [#/Vol] 6.3 10*3/uL Normal 4.4-11.0 [facility] Comment on above: Performed By: #### L 506.0400, L500.4050, L100.0100, L501.6710, L500.4100, L101.9900 #### [facility] [address] [place], [address] CRPon 09-13-2024 C-REACTIVE PROT < 3.00 Normal 0.0-3.0 [facility] Comment on above: Performed By: #### L 506.0400, L500.4050, L100.0100, L501.6710, L500.4100, L101.9900 ####[facility] [address] [facility] [place], [address] CRP [Mass/Vol]Ordered By: Evelia Mike on 09-13-2024 C-Reactive Protein Extended Range < 3.00 mg/L 0.0-3.0 [facility] Calculated very low density lipoprotein (VLDL) cholesterol measurementOrdered By: Kanika Mike on 09-13-2024 Calculated very low density lipoprotein (VLDL) cholesterol measurement 19 mg/dL -40 [facility] VLDL Cholesterol 19 mg/dL -40 [facility] Carbon dioxide, total [Moles /volume] in Central venous bloodOrdered By: Kanika Mike on 09-13-2024 CO2 [Moles/Vol] 22.1 mmol/L 21.0-32.0 [facility] Chloride assayOrdered By: Evelia Mike on 09-13-2024 Chloride [Moles/Vol] 101 mmol/L 98-108 [facility] Comprehensive Metabolic Prof ilon 09-13-2024 Albumin [Mass/Vol] 4.0 g/dL Normal 3.4-4.8 [facility] Comment on above: Performed By: #### L 506.0400, L500.4050, L100.0100, L501.6710, L500.4100, L101.9900 ####[facility] [address] [place], [address] Albumin/Globulin [Mass ratio] 1.4 {ratio} Normal 0.9-2.4 [facility] Comment on above: Performed By: #### L 506.0400, L500.4050, L100.0100, L501.6710, L500.4100, L101.9900 ####[facility] [address] [place], [address] ALK PHOS 150 U/L High 35-104 [facility] Comment on above: Performed By: #### L 506.0400, L500.4050, L100.0100, L501.6710, L500.4100, L101.9900 ####[facility] [address] [place], [address] ALT [Catalytic activity/Vol] 15 U/L Normal <=34 [facility] Comment on above: Performed By: #### L 506.0400, L500.4050, L100.0100, L501.6710, L500.4100, L101.9900 ####[facility] [address] [place], [address] AST [Catalytic activity/Vol] 19 U/L Normal <=31 [facility] Comment on above: Performed By: #### L 506.0400, L500.4050, L100.0100, L501.6710, L500.4100, L101.9900 ####[facility] [address] [place], [address] Bilirubin [Mass/Vol] 0.50 mg/dL Normal 0.00-1.30 [facility] Comment on above: Performed By: #### L 506.0400, L500.4050, L100.0100, L501.6710, L500.4100, L101.9900 ####[facility] [address] [place], [address] BUN/CRE 16.7 RATIO Normal 10-20 [facility] Comment on above: Performed By: #### L 506.0400, L500.4050, L100.0100, L501.6710, L500.4100, L101.9900 ####[facility] [address] [place], [address] Calcium [Mass/Vol] 9.3 mg/dL Normal 7.6-11.0 [facility] Comment on above: Performed By: #### L 506.0400, L500.4050, L100.0100, L501.6710, L500.4100, L101.9900 ####[facility] [address] [place], [address] Chloride [Moles/Vol] 101 mmol/L Normal 98-108 [facility] Comment on above: Performed By: #### L 506.0400, L500.4050, L100.0100, L501.6710, L500.4100, L101.9900 ####[facility] [address] [place], [address] CO2 [Moles/Vol] 22.1 mmol/L Normal 21.0-32.0 [facility] Comment on above: Performed By: #### L 506.0400, L500.4050, L100.0100, L501.6710, L500.4100, L101.9900 ####[facility] [address] [place], [address] Creatinine [Mass/Vol] 0.69 mg/dL Low 0.70-1.20 [facility] Comment on above: Performed By: #### L 506.0400, L500.4050, L100.0100, L501.6710, L500.4100, L101.9900 ####[facility] [address] [place], [address] GAP 15 Normal 5-15 [facility] Comment on above: Performed By: #### L 506.0400, L500.4050, L100.0100, L501.6710, L500.4100, L101.9900 ####[facility] [address] [place], [address] GFR/1.73 sq M.predicted among non-blacks MDRD (S/P/Bld) [Vol rate/Area] 91 mL/min/{1.73_m2} Normal >60 [facility] Comment on above: Result Comment: mL/m in/1.73m2 CKD-EPI Creatinine Equation (2020) Performed By: #### L 506.0400, L500.4050, L100.0100, L501.6710, L500.4100, L101.9900 ####[facility] [address] [place], [address] Globulin (S) [Mass/Vol] 2.9 g/dL Normal 2.2-4.2 [facility] Comment on above: Performed By: #### L 506.0400, L500.4050, L100.0100, L501.6710, L500.4100, L101.9900 ####[facility] [address] [place], [address] Glucose [Mass/Vol] 99 mg/dL Normal 70-99 [facility] Comment on above: Performed By: #### L 506.0400, L500.4050, L100.0100, L501.6710, L500.4100, L101.9900 ####[facility] [address] [place], [address] Potassium [Moles/Vol] 3.6 mmol/L Normal 3.3-5.1 [facility] Comment on above: Performed By: #### L 506.0400, L500.4050, L100.0100, L501.6710, L500.4100, L101.9900 ####[facility] [address] [place], [address] Sodium [Moles/Vol] 138 mmol/L Normal 133-145 [facility] Comment on above: Performed By: #### L 506.0400, L500.4050, L100.0100, L501.6710, L500.4100, L101.9900 ####[facility] [address] [place], [address] T PROT 6.9 g/dL Normal 5.9-8.4 [facility] Comment on above: Performed By: #### L 506.0400, L500.4050, L100.0100, L501.6710, L500.4100, L101.9900 ####[facility] [address] [place], [address] Urea nitrogen [Mass/Vol] 12 mg/dL Normal 4-19 [facility] Comment on above: Performed By: #### L 506.0400, L500.4050, L100.0100, L501.6710, L500.4100, L101.9900 ####[facility] [address] [place], [address] Eosinophil percentageOrdered By: Kanika Mike on 09-13-2024 Eosinophils/100 WBC (Bld) 1.8 % 0-5 [facility] Erythrocyte Sed Rateon 09-13 SED RATE 34 mm/hr High 0-30 [facility] Comment on above: Performed By: #### L 506.0400, L500.4050, L100.0100, L501.6710, L500.4100, L101.9900 #### [facility] [address] [place], [address] Erythrocyte distribution wid th ratioOrdered By: Kanika Mike on 09-13-2024 Erythrocyte distribution width (RBC) [Ratio] 14.6 % 11.6-14.6 [facility] Erythrocyte distribution wid th standard deviationOrdered By: Kanika Mike on 09-13-2024 Erythrocyte distribution width (RBC) [Entitic vol] 43.4 fL 35.1-43.9 [facility] Erythrocyte distribution width (RBC) [Ratio] 43.4 fl 35.1-43.9 [facility] Erythrocyte sedimentation ra teOrdered By: Kanika Mike on 09-13-2024 ESR (Bld) [Velocity] 34 mm/h High 0-30 [facility] GFR/1.73 sq M.predicted ellie g non-blacks MDRD (S/P/Bld) [Vol rate/Area]Ordered By: Kanika Mike on 09-13-2024 Estimated GFR (MDRD) Non-Af Amer 91 >60 [facility] Comment on above: mL/min/1.73m2 CKD-EP I Creatinine Equation (2020) Glomerular filtration rate ( GFR) estimation/1.73 sq m using serum, plasma, or whole bOrdered By: Kanika Mike on 09-13-2024 GFR/1.73 sq M.predicted among non-blacks MDRD (S/P/Bld) [Vol rate/Area] 91 mL/min/{1.73_m2} >60 [facility] Comment on above: mL/min/1.73m2 CKD-EP I Creatinine Equation (2020) Hematocrit Auto (Bld) [Volum e fraction]Ordered By: Kanika Mike on 09-13-2024 Hematocrit (Bld) [Volume fraction] 35.5 % Low 37-47 [facility] Hemoglobin measurementOrdere d By: Kanika Mike on 09-13-2024 Hemoglobin (Bld) [Mass/Vol] 11.2 g/dL Low 12.0-15.0 [facility] Immature granulocytes/100 WB C Auto (Bld)Ordered By: Kanika Mike on 09-13-2024 Immature granulocytes/100 WBC (Bld) 0.300 % 0.0-0.9 [facility] Comment on above: IG% - Immature Granu locytes (promyelocytes, myelocytes and metamyelocytes) > 1% indicates that a LEFT SHIFT is Present. LDL calc ser/plasOrdered By: Kanika Mike on 09-13-2024 Cholesterol in LDL [Mass/Vol] 47 mg/dL [facility] Comment on above: Rxjuilrrmv=735-955 m g/dL & Higher Zxeg=564 mg/dL or greater LDL Cholesterol, Calculated 47 mg/dL [facility] Comment on above: Qcyvuysrhv=190-940 m g/dL & Higher Rhfv=882 mg/dL or greater Laboratory - Chemistry and C hemistry - challengeOrdered By: Kanika Mike on 09-13-2024 AST [Catalytic activity/Vol] 19 U/L <32 [facility] Lipid Profileon 09-13-2024 CHOL:HDL 1.96 Normal [facility] Comment on above: Performed By: #### L 506.0400, L500.4050, L100.0100, L501.6710, L500.4100, L101.9900 ####[facility] [address] [facility] [address] Cholesterol [Mass/Vol] 135 mg/dL Normal <=200 [facility] Comment on above: Result Comment: Chol esterol level, Desirable <200 mg/dL Borderline high cholesterol 200-239 mg/dL High cholesterol >=240 mg/dL Recommendations of the NCEP Adult Treatment Panel for the following risk-cutoff thresholds for the [place] population. Performed By: #### L 506.0400, L500.4050, L100.0100, L501.6710, L500.4100, L101.9900 ####[facility] [address] [place], [address] Cholesterol in HDL [Mass/Vol] 69 mg/dL Normal [facility] Comment on above: Result Comment: Yudi onal Cholesterol Education Program (NCEP) guidelines: <40 mg/dL: Low HDL-cholesterol (major risk factor for CHD) >= 60 mg/dL: High HDL-cholesterol (negative risk factor for CHD) HDL-cholesterol is affected by a number of factors, e.g. smoking, exercise, hormones, sex and age. Performed By: #### L 506.0400, L500.4050, L100.0100, L501.6710, L500.4100, L101.9900 ####[facility] [address] [place], [address] Cholesterol in LDL [Mass/Vol] 47 mg/dL Normal [facility] Comment on above: Result Comment: Bord flbfpy=326-443 mg/dL Higher Nbxc=695 mg/dL or greater Performed By: #### L 506.0400, L500.4050, L100.0100, L501.6710, L500.4100, L101.9900 ####[facility] [address] [place], [address] Cholesterol in VLDL [Mass/Vol] 19 mg/dL Normal 5-40 [facility] Comment on above: Performed By: #### L 506.0400, L500.4050, L100.0100, L501.6710, L500.4100, L101.9900 ####[facility] [address] [place], [address] Triglyceride [Mass/Vol] 93 mg/dL Normal [facility] Comment on above: Result Comment: The drugs N-Acetylcysteine and Metamizole may falsely depress this assay. Normal range: <150 mg/dL Borderline High: 150-199 mg/dL High: 200-499 mg/dL Very High: >500 mg/dL Performed By: #### L 506.0400, L500.4050, L100.0100, L501.6710, L500.4100, L101.9900 ####[facility] [address] [place], [address] Lymphocytes Auto (Unsp spec) [#/Vol]Ordered By: Kanika Mike on 09-13-2024 Lymphocytes (Bld) [#/Vol] 1.51 10*3/uL 0.83-4.51 [facility] Lymphocytes/100 WBC Auto (Un sp spec)Ordered By: Kanika Mike on 09-13-2024 Lymphocytes/100 WBC (Bld) 24.2 % 19-41 [facility] MCV (mean corpuscular volume ) determinationOrdered By: Kanika Mike on 09-13-2024 MCV (RBC) [Entitic vol] 82.9 fL 81-99 [facility] Mean corpuscular hemoglobin (MCH) determinationOrdered By: Kanika Mike on 09-13-2024 MCH (RBC) [Entitic mass] 26.2 pg Low 27.0-32.0 [facility] Mean corpuscular hemoglobin concentration (MCHC) determinationOrdered By: Kanika Mike on 09-13-2024 MCHC (RBC) [Mass/Vol] 31.5 g/dL Low 32-36 [facility] Mean platelet volume determi nationOrdered By: Kanika Mike on 09-13-2024 Platelet mean volume (Bld) [Entitic vol] 11.6 fL 6.2-12.0 [facility] Monocyte percentageOrdered B y: Kanika Mike on 09-13-2024 Monocytes/100 WBC (Bld) 9.4 % 0-10 [facility] Neutrophil percentageOrdered By: Kanika Mike on 09-13-2024 Neutrophils/100 WBC (Bld) 63.7 % 47-70 [facility] Nucleated red blood cell per centageOrdered By: Kanika Mike on 09-13-2024 Nucleated RBC/100 WBC (Bld) [Ratio] 0 % 0-5 [facility] Platelet countOrdered By: Evelia Mike on 09-13-2024 Platelets (Bld) [#/Vol] 184 10*3/uL 150-450 [facility] Potassium (Unsp spec) [Mass/ Vol]Ordered By: Kanika Mike on 09-13-2024 Potassium [Moles/Vol] 3.6 mmol/L 3.3-5.1 [facility] Potassium measurement (mass/ volume)Ordered By: Kanika Mike on 09-13-2024 Potassium (Unsp spec) [Mass/Vol] 3.6 mmol/L 3.3-5.1 [facility] RBC Auto (Bld) [#/Vol]Ordere d By: Kanika Mike on 09-13-2024 RBC (Bld) [#/Vol] 4.28 10*6/uL 4.2-5.4 [facility] Screening total cholesterol/ high density lipoprotein (HDL) cholesterol ratioOrdered By: Kanika Mike on 09-13-2024 Cholesterol.total/Choles terol in HDL [Mass ratio] 1.96 {ratio} [facility] Serum creatinine measurement (mass/volume)Ordered By: Kanika Mike on 09-13-2024 Creatinine [Mass/Vol] 0.69 mg/dL Low 0.70-1.20 [facility] Serum globulin measurementOr dered By: Kanika Mike on 09-13-2024 Globulin (S) [Mass/Vol] 2.9 g/dL 2.2-4.2 [facility] Serum glucose measurement (m ass/volume)Ordered By: Kanika Mike on 09-13-2024 Glucose [Mass/Vol] 99 mg/dL 70-99 [facility] Serum or plasma C reactive p rotein measurement (mass/volume)Ordered By: Kanika Mike on 09-13-2024 CRP [Mass/Vol] mg/L 0.0-3.0 [facility] Serum or plasma alanine fish otransferase (ALT) measurementOrdered By: Kanika Mike on 09-13-2024 ALT [Catalytic activity/Vol] 15 U/L <35 [facility] Serum or plasma albumin huma urement (mass/volume)Ordered By: Kanika Mike on 09-13-2024 Albumin [Mass/Vol] 4.0 g/dL 3.4-4.8 [facility] Serum or plasma albumin/glob ulin mass ratioOrdered By: Kanika Mike on 09-13-2024 Albumin/Globulin [Mass ratio] 1.4 {ratio} 0.9-2.4 [facility] Serum or plasma alkaline lisa sphatase measurementOrdered By: Kanika Mike on 09-13-2024 ALP [Catalytic activity/Vol] 150 U/L High 35-104 [facility] Serum or plasma calcium huma urement (mass/volume)Ordered By: Kanika Mike on 03-20-2025 Calcium [Mass/Vol] 9.3 mg/dL 7.6-11.0 [facility] Serum or plasma cholesterol in HDL measurement (mass/volume)Ordered By: Kanika Mike on 09-13-2024 Cholesterol in HDL [Mass/Vol] 69 mg/dL >40 [facility] Comment on above: National Cholesterol Education Program (NCEP) guidelines:<40 mg/dL: Low HDL-cholesterol (major risk factor for CHD)>= 60 mg/dL: High HDL-cholesterol (negative risk factor for CHD)HDL-cholesterol is affected by a number of factors, e.g. smoking, exercise, hormones, sex and age. Serum or plasma cholesterol measurement (mass/volume)Ordered By: Kanika Mike on 09-13-2024 Cholesterol [Mass/Vol] 135 mg/dL <201 [facility] Comment on above: Cholesterol level, D esirable <200 mg/dLBorderline high cholesterol 200-239 mg/dLHigh cholesterol >=240 mg/dLRecommendations of the NCEP Adult Treatment Panel for the following risk-cutoff thresholds for the [place] population. Serum or plasma urea nitroge n measurement (mass/volume)Ordered By: Kanika Mike on 09-13-2024 Urea nitrogen [Mass/Vol] 12 mg/dL 4-19 [facility] Sodium levelOrdered By: Kanika Mike on 09-13-2024 Sodium [Moles/Vol] 138 mmol/L 133-145 [facility] T4 Free Directon 09-13-2024 T4 FREE DIRECT 1.40 ng/dL Normal 0.76-1.46 [facility] Comment on above: Performed By: #### L 506.0400, L500.4050, L100.0100, L501.6710, L500.4100, L101.9900 ####[facility] [address] [place], [place], [address] T4 freeOrdered By: Kanika coffey on 09-13-2024 Free T4 [Mass/Vol] 1.40 ng/dL 0.76-1.46 [facility] Total proteinOrdered By: Marva Mike on 09-13-2024 Protein [Mass/Vol] 6.9 g/dL 5.9-8.4 [facility] Triglycerides measurementOrd ered By: Kanika Mike on 09-13-2024 Triglyceride [Mass/Vol] 93 mg/dL <199 [facility] Comment on above: The drugs N-Acetylcy steine and Metamizole may falsely depress this assay. Normal range: <150 mg/dLBorderline High: 150-199 mg/dLHigh: 200-499 mg/dLVery High: >500 mg/dL White blood cell (WBC) count Ordered By: Kanika Mike on 09-13-2024 WBC (Bld) [#/Vol] 6.3 10*3/uL 4.4-11.0 [facility] Orthopedic Visit Reporton Orthopedic Visit Report [facility] [address] [place] [address] OFFICE VISIT Date of Service: 08/13/24 MR#: [id number] Acct: [id number] Name: CHELSEY BELTRAN Hubert Rep #: [id number] : 1950 Provider: Dr. Raj crow DO Age/Sex: 74/F [place] [facility] [place]: Signed Intake Vital Signs 04/24/24 12:20 07/31/24 06:27 Height 5 ft 1 in 5 ft 1 in Intake Visit Reasons: right hand Allergies clarithromycin (From Biaxin) Allergy (Verified 08/13/24 13:02) Rash sulfamethoxazole (From Bactrim) Allergy (Verified 08/13/24 13:02) Rash trimethoprim (From Bactrim) Allergy (Verified 08/13/24 13:02) Rash carvedilol (From Coreg) Adverse Reaction (Intermediate, Verified 08/13/24 13:02) Nausea, Lightheaded codeine Adverse Reaction (Verified 08/13/24 13:02) Upset Stomach lisinopril Adverse Reaction (Verified 08/13/24 13:02) cough Penicillins Adverse Reaction (Verified 08/13/24 13:02) Other Medications ???Medication ???Instructions ???Recorded ???Confirmed ???Type levothyroxine 50 mcg tablet 50 mcg PO DAILY Thyroid 12/31/16 0 08/13/24 History acetaminophen 500 mg tablet 500 - 1,000 mg PO DAILY PRN PRN 08/13/24 History Pain 1-10 Or Fever potassium chloride 20 mEq 20 meq PO DAILY supplement 1 08/13/24 History tablet,extended release(part/cryst) omeprazole 40 mg capsule,delayed 40 mg PO BID gerd 08/05/21 5 History release atorvastatin 80 mg tablet 80 mg PO QHS cholesterol 08/08/21 08/13/24 History hydrochlorothiazide 25 mg tablet 25 mg PO DAILY diuretic 08/28/21 0 08/13/24 History cholecalciferol (vitamin D3) 50 2,000 unit PO DAILY SUPPLEMENT 04/1708/13/24 History mcg (2,000 unit) capsule metoprolol tartrate 50 mg tablet 50 mg PO BID BP #180 tabs 09/28/23 08/13/24 Rx mecobalamin (vitamin B12) 1,000 1,000 mcg sublingual DAILY 4 08/13/24 History mcg disintegrating supplement tablet,sublingual losartan 25 mg tablet 25 mg PO DAILY blood pressure #90 06/18/24 08/13/24 Rx tabs Have you fallen in the past year?: No PFSH Medical History Wears glasses Post-menopausal Rheumatoid arthritis Ambulates with cane Polymyalgia rheumatica High cholesterol Giant cell arteritis Ulcerative colitis Non-smoker History of atrial fibrillation History of echocardiogram History of stress test Cardiology follow-up encounter Hypertension CAD (coronary artery disease) COVID-19 ( 06/2021) History of coronary artery disease Monoclonal gammopathy of unknown significance (MGUS) Monoclonal gammopathy Temporal arteritis Osteoarthritis of left shoulder Asthma HLD (hyperlipidemia) HTN (hypertension) Atherosclerotic heart disease 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 Acute ST elevation myocardial infarction GERD (gastroesophageal reflux disease) Hypothyroidism 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 Retinal tear of left eye Ulnar neuropathy Polyclonal gammopathy IBS (irritable bowel syndrome) Vitamin D deficiency Osteopenia Incontinence Knee pain PVC's (premature ventricular contractions) SOB (shortness of breath) Arthritis Surgical History History of ERCP Hx laparoscopic cholecystectomy S/P cholecystectomy History of cataract extraction with lens replacement History of coronary artery stent placement History of cardiac catheterization History of temporal artery biopsy ( 12/2018) History of delivery Stented coronary artery (06/20/18) History of dilatation and curettage Hx of breast biopsy Hx of tonsillectomy Family History Mother Cancer skin Anemia Father Cancer Heart disease Social History Smoking Status: Never smoker alcohol intake: never substance use type: does not use caffeine: No HPI right hand Details: This documentation accurately reflects the service provided and the decisions made by me, Dr. Raj Walker, DO 08/13/24 0824. Part of today???s visit was documented by Latosha TRAN, acting as scribe. CHELSEY BELTRAN is a 74 year old F here today for 2 week post op, right hand A1 franci release middle finger, dos 07/31/24. She states that she is doing well with the recovery and denies taking any pain medication. She does have a lump on the palm of her left hand over the index a1 franci that is tender that she would like looked at. . Ortho Exam General General: Yes no acute distress Neurologic: Yes alert and Yes oriented x3 Psychologic: Yes reasonable and appropriate Right Wrist/Hand WRIST: Finger flexion limited 2cm tip to palm 5 lacking of full extension Incision well-appro (more content not included)... Normal [facility] Discharge Instructionon Discharge Instruction [facility] Medical Records Department [address] [place] [address] Instructions for Home/Discharge Instructions 07/31/24 0755 MR#: [id number] Acct: [id number] Name: CHELSEY BELTRAN Rep #: [id number] : 1950 74 From: Raj Walker DO PCP: Dr. Kanika Mike, DO Status:REG MAC Discharge Instructions Diet Discharge Diet: No restrictions Dressing / Incision Call your doctor if you observe: Shortness of breath and Chest pain Additional Dressing/Incision Instructions:: Ice and elevate operative extremity next 72 hours. Keep dressing on clean and dry for 72 hours then may remove and allow warm soapy water to rinse over incision but do not submerge until sutures are out. Then apply bandaid over incision .wash incision and change bandage daily, may leave open to air after initial bandage removal as long as it is kept clean. encourage finger range of motion. Not lift more than 1/2 pound. Minimize narcotic use only as needed and directed, may use OTC NSAID and Tylenol to supplement/substitute for pain control. Follow Up Care Please Follow Up With: Raj Walker DO When: 2 weeks Test Results: Test results from this visit will be discussed in further detail at your follow-up appointment, if applicable. Discharge Plan Admission Primary Reason for Your Visit: Right middle finger A1 franci release Attending Provider: Raj Walker Primary Care Provider: Kanika Mike Instructions Print Language: Taiwanese Discharge Orders/Prescriptions Prescriptions: New oxycodone 5 mg tablet 2.5 - 5 mg PO Q4H PRN (Reason: pain) 3 Days Qty: 7 0RF No Action cholecalciferol (vitamin D3) 50 mcg (2,000 unit) capsule 2,000 unit PO DAILY mecobalamin (vitamin B12) 1,000 mcg tablet,disintegrating 1,000 mcg sublingual DAILY Rx Instructions: place tablet under tongue and allow to dissolve for at least30 secs before swallowing levothyroxine 50 MCG tablet 50 mcg PO DAILY potassium chloride 20 mEq tablet,ER particles/crystals 20 meq PO DAILY omeprazole 40 mg capsule,delayed release(DR/EC) 40 mg PO BID acetaminophen 500 MG tablet 500 - 1,000 mg PO DAILY PRN PRN (Reason: Pain 1-10 Or Fever) atorvastatin 80 mg tablet 80 mg PO QHS hydrochlorothiazide 25 mg tablet 25 mg PO DAILY metoprolol tartrate 50 mg tablet 50 mg PO BID Qty: 180 3RF losartan 25 mg tablet 25 mg PO DAILY Qty: 90 3RF Referrals / Follow Up: Kanika Mike DO [Primary Care Provider] - Disposition Disposition (needs filled in before D/C Order can be placed): Home, Self Care 07/31/24 9144 Raj Walker DO CC: Dr. Kanika Mike DO Signed [facility] MR/POSTOP.Latisha 07-31-2024 MR/POSTOP.[facility] Medical Records Department [address] [place] [address] Anesthesia Postop Eval I 07/31/24 0759 MR#: [id number] Acct: [id number] Name: CHELSEY BELTRAN Rep #: [id number] : 1950 74 From: Rolf Luque CRNA PCP: Dr. Kanika Mike, DO Status:[facility] Y Race: C Location: [place] [address] Anesthesia: Postop Eval I Current Vital Signs Temperature: 97.9 F Pulse Rate: 71 Blood Pressure: 111/53 Respiratory Rate: 20 Pulse Ox: 94 Assessment Airway patent: Yes Spontaneous unlabored respirations: Yes nausea: No Vomiting: No Anesthesia Complication: No Fluid Hydration Crystalloid volume administer (ml): 20 Total IV fluid infused: 20 Progress Note Anesthesia document: Postop Eval 1 completed: Yes 07/31/24 0800 Date Rolf Luque CRNA Cosigner Signature: Date CC: Signed [facility] MR/IYRYZFBD7ox 07-31-2024 [facility] Medical Records Department [address] [place] [address] Anesthesia Postop Eval II 07/31/24 1034 MR#: [id number] Acct: [id number] Name: CHELSEY BELTRAN Rep #: [id number] : 1950 74 From: Annabel Phillips PCP: Dr. Kanika Mike, DO Status:[facility] Y Race: C Location: [facility] [place] Anesthesia Postop Eval I Sum Postop Eval Completion status Anesthesia document: Postop Eval 1 completed: Yes Anesthesia Postop Eval I Summary Anesthesia Postop Eval I Summary: Anesthesia Postop Eval I: Assessment Summary Airway patent Yes 07/31/24 07:59 MOID [employer]CHO[employer] [email or web address].[email or web address] Spontaneous unlabored Yes 07/31/24 07:59 MOID MIDD[employer] TEACHER.[email or web address] respirations Mental status nausea No 07/31/24 07:59 MOID [employer] SCHO[employer] TEACHER.[email or web address] Vomiting No 07/31/24 07:59 MOID MIDD[employer] SCHOOL TEACHER.[email or web address] Anesthesia Postop Eval I: Fluid Summary Crystalloid volume administer 20 07/31/24 07:59 MOID MIDDLE SCHOOL TEACHER.PKEL (ml) Colloids volume administered ( ml) Blood Product volume administered (ml) Total IV fluid infused 20 07/31/24 07:59 MOID MIDDLE SCHOOL TEACHER.[email or web address] Anesthesia Postop Eval I: Summary Notes Anesthesia Complication No 07/31/24 07:59 MOID MIDDLE SCHOOL TEACHER.[email or web address] Anesthesia Complication Comment: Post-operative progress note Anesthesia: Postop Eval II Evaluation Mental status: Awake and Calm Pain Level: 0 nausea: No Vomiting: No 07/31/24 1034 Date Annabel Perez Signature: Date CC: Signed [facility] Operative Reporton Operative Report [facility] Medical Records Department [address] [place] [address] Operative Report 07/31/24 0754 MR#: [id number] Acct: [id number] Name: CHELSEY BELTRAN Rep #: [id number] : 1950 74 From: Raj Walker DO PCP: Dr. Kanika Mike, DO Status:REG [facility] [place] Location: [place] [address] Operative Report (Standard) Operative Information Date of Procedure: 07/31/24 Pre-Operative Diagnosis: Right middle finger trigger finger Post-Operative Diagnosis: Same Surgery/Procedure Performed: Right middle finger A1 franci release tools programmer: Yes Health Technician Hearing: Robert Bowens Tasks completed by first aid director: Opening closing Type of Anesthesia: Local and MAC RN Documented Start/Stop Times: Operation Date: 07/31/24 07:30 Case Time Into Pre-Op 07/31/24 06:00 Out of Pre-Op 07/31/24 07:21 Anesthesia Start 07/31/24 07:25 Into Room 07/31/24 07:25 Procedure Start 07/31/24 07:40 Procedure End 07/31/24 07:50 Procedure Start Time: 07:40 Procedure Stop Time: 07:50 Select all DRAINS/GRAFTS/IMPLANTS that apply: None Estimated Blood Loss: 0 Specimen collected: No Description of surgery: Preoperative diagnosis; right middle digit trigger finger Postoperative diagnosis; same Procedure: Right middle digit A1 franci release Anesthesia: Local with MAC Tourniquet time; [10] minutes 250 mm Hg Complications: None Indication for procedure; This is a 74-year-old [female] with symptoms consistent with [trigger finger]. Risks benefits and alternatives were reviewed including risks of bleeding infection nerve tendon tissue damage need for further surgery and continued pain and symptoms, hypersensitivity to scar/incision and recurrence. Procedure; The patient was met in the preoperative holding area the operative extremity was identified by both patient and physician and was marked the patient was met by anesthesia and brought back to the operating room and transferred to the operating table in the supine position. Aanesthesia was started. A well-padded tourniquet was placed on the operative upper extremity. The patient was prepped and draped in the usual sterile fashion. A timeout was called to ensure the proper patient procedure and extremity were being contemplated. 0.5 percent Marcaine was injected into the incisional area. Esmarch was used tourniquet was inflated. 15 blade scalpel was used to make a longitudinal incision directly over the A1 franci was carried down through the subcutaneous tissue Dannielle retractors placed radial and ulnar protecting the digital nerves and a Ragnell retractor was used at the apex of the incision under direct visualization a deep blade scalpel was used to release the A1 franci. The wound was thoroughly irrigated and closed with 4-0 nylon vertical mattress edges. Dressing was applied in the form of Xeroform 4 x 4 web roll and an Olman wrap. Patient tolerated the procedure well was brought back to the PACU in stable condition. Surgical Findings: Thickened A1 franci Complications Complications: No 07/31/24 0755 Cosigner Signature (if applicable): CC: Dr. Raj Walker DO; Dr. Kanika Mike DO Signed [facility] 12 Lead EKGon 07-26-2024 12 Lead EKG [facility] Cardiovascular Services [address] [place] [address] 12 Lead EKG 07/26/24 1139 MR#: [id number] Acct: [id number] Name: CHELSEY BELTRAN Rep #: [id number] : 1950 74 From: Shakira Ochoa MD Attending Dr: Denton Morgan DO Status: DEP [facility] Ordering Dr: Denton Morgan DO Date: 07/26/24 Location: EN Sex: F C Admitted: Test Reason : PREOP Blood Pressure : */* mmHG Vent. Rate : 63 BPM Atrial Rate : 63 BPM P-R Int : 156 ms QRS Dur : 68 ms QT Int : 408 ms P-R-T Axes : 4 4 22 degrees QTcB Int : 417 ms Normal sinus rhythm Normal ECG When compared with ECG of 16-Apr-2024 04:58, Vent. rate has decreased by 35 bpm Confirmed by DON KAY, ANGELA ([id number]), restaurant expeditor THERESE JACKSON ([id number]) on 07/26/2024 2:46:33 PM Referred By: Kanika Mike Confirmed By: ANGELA OCHOA MD 07/26/24 1446 Date Shakira Ochoa MD CC: Dr. Kanika Mike, ; Denton Morgan DO Signed [facility] ERCP Biliary/Pancreason 06-29 ERCP Biliary/Pancreas [facility] Imaging Services [address] [place] [address] ERCP Biliary/Pancreas MR#: [id number] Acct: [id number] Name: CHELSEY BELTRAN Rep #: [id number] : 1950 F 74 From: Donis reyes MD PCP: Dr. Kanika Mike DO Status: [facility]AVI Study: ERCP Biliary/Pancreas Date of Exam: 07/26/24 Exam# [id number] Ordering Dr: Denton Morgan DO EXAM: ERCP BILIARY/PANCREAS CLINICAL HISTORY: Removal of the biliary stent. COMPARISON: None. TECHNIQUE: ERCP was performed by the bottom stainer. Fluoroscopic services was provided. FINDINGS: Contrast was injected. The biliary stent was removed. RAD/ERCP Biliary/Pancreas IMPRESSION: Removal of the biliary stent. Reading Location: [place] [address] CC: Dr. Kanika Mike DO; Denton Morgan DO Floral Artist: Signed [facility] ERCP Reporton 07-26-2024 ERCP Report [facility] Medical Records Department [address] [place] [address] ERCP Report MR#: [id number] Acct: [id number] Name: CHELSEY BELTRAN Rep #: [id number] : 1950 74 From: Denton Morgan DO PCP: Dr. Kanika Mike DO Status:REG [facility] [place] Patient Name: Chelsey Beltran Procedure Date: 07/26/2024 12:22 PM Date of : 1950 Age: 74 Procedure: ERCP Indications: Common bile duct stone(s), Biliary stent removal Providers: Denton Morgan DO Referring MD: Kanika Mike Medicines: Monitored Anesthesia Care Patient Profile: This is a 74 year old female. Refer to note in patient chart for documentation of history and physical. Patient has symptoms of chronic right upper quadrant abdominal pain and acute nausea. She is status post laparoscopic cholecystectomy within the past three months. Complications: No immediate complications. Procedure: Pre-Anesthesia Assessment: - Prior to the procedure, a History and Physical was performed, and patient medications and allergies were reviewed. The patient is competent. The risks and benefits of the procedure and the sedation options and risks were discussed with the patient. All questions were answered and informed consent was obtained. Patient identification and proposed procedure were verified by the physician in the pre-procedure area. Mental Status Examination: alert and oriented. Airway Examination: normal oropharyngeal airway and neck mobility. Respiratory Examination: clear to auscultation. CV Examination: normal. Prophylactic Antibiotics: The patient does not require prophylactic antibiotics. Prior Anticoagulants: The patient has taken no anticoagulant or antiplatelet agents except for NSAID medication. ASA Grade Assessment: II - A patient with mild systemic disease. After reviewing the risks and benefits, the patient was deemed in satisfactory condition to undergo the procedure. The anesthesia plan was to use monitored anesthesia care (MAC). Immediately prior to administration of medications, the patient was re-assessed for adequacy to receive sedatives. The heart rate, respiratory rate, oxygen saturations, blood pressure, adequacy of pulmonary ventilation, and response to care were monitored throughout the procedure. The physical status of the patient was re-assessed after the procedure. After obtaining informed consent, the scope was passed under direct vision. Throughout the procedure, the patient's blood pressure, pulse, and oxygen saturations were monitored continuously. The Duodenoscope was introduced through the mouth, and advanced to the duodenum and used to inject contrast into the bile duct and ventral pancreatic duct. The ERCP was accomplished without difficulty. The patient tolerated the procedure well. Scope In: 12:50:58 PM Scope Out: 1:09:24 PM Total Procedure Duration Time 0 hours 18 minutes 26 seconds Findings: The athletic scout film was normal. The esophagus was successfully intubated under direct vision. The scope was advanced to a normal major papilla in the descending duodenum without detailed examination of the pharynx, larynx and associated structures, and upper GI tract. The upper GI tract was grossly normal. The bile duct was deeply cannulated with the short-nosed traction sphincterotome. Contrast was injected. I personally interpreted the bile duct images. There was brisk flow of contrast through the ducts. Image quality was adequate. Contrast extended to the main bile duct. Contrast extended to the bifurcation. Contrast extended to the hepatic ducts. Contrast extended to the entire biliary tree. Contrast extended to the pancreatic duct. Contrast extended to the proximal pancreatic duct. Contrast extended to the distal pancreatic duct. Opacification of the entire biliary tree except for the cystic duct and gallbladder, entire biliary tree except for the gallbladder, entire opacified area, common bile duct, common hepatic duct, hepatic duct bifurcation, left and right hepatic ducts and all intrahepatic branches and entire biliary tree was successful. The maximum diameter of the ducts was 10 mm. The lower third of the main bile duct, left main hepatic duct and right and left intrahepatic branches (but not the right or left hepatic ducts) contained two stones, the largest of which was 6 mm in diameter. The entire biliary tree was moderately dilated and diffusely dilated, with a stone causing an obstruction. The largest diameter was 12 mm. A long 0.025 inch Jagwire was passed into the biliary tree. A 5 mm biliary sphincterotomy was made with a traction (standard) sphincterotome using ERBE electrocautery. There was no post-sphincterotomy bleeding. The biliary tree was swept with a 12 mm balloon starting at the bifurcation, left intrahepatic duct(s), left main hepatic duct and righ (more content not included)... Normal [facility] H Pylori (initial)on H Pylori (initial) -- ---- Patient Age/Sex Location Account Attending Physician ---- CHELSEY BELTRAN 74/F EN [id number] Denton Morgan DO ---- Specimen: [id number] Received: 07/27/24 Status: PORFIRIO Manjarrez Num: [id number] Spec Type: IMMUNO Subm Dr: Denton Morgan, PHYSICIAN INSTITUTION [place] [address] SPECIMEN INFORMATION: Tissue Source: Gastric polyp Clinical Info: Status post cholecystectomy, elevated liver enzymes, choledocholithiasis with acute cholecystitis with obstruction Specimen Number: [id number] block 1 CPT code: 59727 METHODOLOGY: Deparaffinized sections of prefer/formalin-fixed tissue or PAP/DQ stained slides are incubated with monoclonal/polyclonal antibodies/oligonucleo tide probes. Localization is made via biotin free immunoperoxidase method. Appropriate controls are performed and reacted as expected. Results on target cell population are indicated in the following table: RESULTS: ANTIBODY / CLONE RESULT Block 1 H Pylori (polyclonal) negative These tests were developed and their performance characteristics determined by [facility]. They may not have been cleared or approved by the U.S. Food and Drug Administration. The FDA has determined that such clearance or approval is not necessary. The above immunohistochemical/du alISH markers are ordered and reviewed by the Pathologist. INTERPRETATION: Gastric polyp, biopsy: Negative for Helicobacter pylori organisms. IQRA. 07/27/2024 Signed (signature on file) Dr. Vince Main MD 07/27/24 1204 ---- [facility] Comment on above: Performed By: #### P H.PYLORI #### [facility] [address] [facility] [facility] [place], [place], [address] MR/POSTOP.ANEon 07-26-2024 MR/POSTOP.MARIYA [facility] Medical Records Department [address] [place] [address] Anesthesia Postop Eval I 07/26/24 1323 MR#: [id number] Acct: [id number] Name: CHELSEY BELTRAN Hubert Rep #: [id number] : 1950 74 From: Chip Cunningham PCP: Dr. Kanika Mike, DO Status:REG [facility] Y Race: C Location: [place] [address] Anesthesia: Postop Eval I Current Vital Signs Temperature: 98.1 F Pulse Rate: 64 Blood Pressure: 88/48 Respiratory Rate: 16 Pulse Ox: 94 Oxygen Delivery Method: Room Air Assessment Airway patent: Yes Spontaneous unlabored respirations: Yes Mental status: Asleep nausea: No Vomiting: No Anesthesia Complication: No Fluid Hydration Crystalloid volume administer (ml): 30 Total IV fluid infused: 30 Progress Note Anesthesia document: Postop Eval 1 completed: Yes 07/26/24 1324 Date Chip Perez Signature: Date CC: Signed [facility] MR/ECHTGCBI1ll 07-26-2024 [facility] Medical Records Department [address] [place] [address] Anesthesia Postop Eval II 07/26/24 2328 MR#: [id number] Acct: [id number] Name: HCELSEY BELTRAN Rep #: [id number] : 1950 74 From: Estuardo Perez MD PCP: Dr. Kanika Mike, DO Status:[facility] Y Race: C Location: [place] Anesthesia Postop Eval I Sum Postop Eval Completion status Anesthesia document: Postop Eval 1 completed: Yes Anesthesia Postop Eval I Summary Anesthesia Postop Eval I Summary: Anesthesia Postop Eval I: Assessment Summary Airway patent Yes 07/26/24 13:24 [email or web address] Spontaneous unlabored Yes 07/26/24 13:24 [email or web address] respirations Mental status Asleep 07/26/24 13:24 [email or web address] nausea No 07/26/24 13:24 [email or web address] Vomiting No 07/26/24 13:24 [email or web address] Anesthesia Postop Eval I: Fluid Summary Crystalloid volume administer 30 07/26/24 13:24 [email or web address] (ml) Colloids volume administered ( ml) Blood Product volume administered (ml) Total IV fluid infused 30 07/26/24 13:24 [email or web address] Anesthesia Postop Eval I: Summary Notes Anesthesia Complication No 07/26/24 13:24 [email or web address] Anesthesia Complication Comment: Post-operative progress note Anesthesia: Postop Eval II Evaluation Mental status: Awake and Calm Pain Level: 0 nausea: No Vomiting: No Complications Anesthesia Complication: No 07/26/24 2328 Date Estuardo Perez Signature: Date CC: Signed [facility] Special Stain Group IIon Special Stain Group II ----- ---- Patient Age/Sex Location Account Attending Physician ---- CHELSEY BELTRAN 74/F EN [id number] Denton Morgan DO ---- Specimen: [id number] Received: 07/26/24-1317 Status: PORFIRIO Manjarrez Num: [id number] Spec Type: Fluid Subm Dr: DO JAGDEEP BorjaER OPERATION: Stent removal, balloon cholangiogram PRE-OP DIAGNOSIS: Status post cholecystectomy, elevated liver enzymes, choledocholithiasis with acute cholecystitis with obstruction TISSUE SUBMITTED: Biliary stent fluid ---- DIAGNOSIS CYTOLOGY Biliary stent fluid for cytology (cytospins and cellblock): Negative for malignant cells. See comment. SJ.mr 07/27/2024 COMMENT Numerous organisms consistent with bacteria are also noted. Clinical correlation and appropriate follow up are necessary. CYTOLOGY STUDY Slides are reviewed. CYTOLOGY GROSS Received is one black stent with 0.2 ml of yellow thick material labeled with the patient's name and and designated per the requisition as Biliary stent. Submitted for cytology preparation including cell block. Mr 07/26/2024 TC:5 CPT: 72037,69581 Signed (signature on file) Dr. Vince Main MD 07/27/24 1101 ---- Normal [facility] Comment on above: Performed By: #### P SSII ####[facility] [id number] [place], [address] Surgery Specimen Level Jose 07-26-2024 Surgery Specimen Level IV ---- Patient Age/Sex Location Account Attending Physician ---- CHELSEY BELTRAN 74/F [place] [id number] Denton Morgan DO ---- Specimen: [id number] Received: 07/26/24 Status: PORFIRIO Manjarrez Num: [id number] Spec Type: EGD BIOPSY Subm Dr: Denton Morgan DO [place] OPERATION: Stent removal, balloon cholangiogram PRE-OP DIAGNOSIS: Status post cholecystectomy, elevated liver enzymes, choledocholithiasis with acute cholecystitis with obstruction TISSUE SUBMITTED: Gastric polyp ---- MICROSCOPIC DIAGNOSIS Gastric polyp, polypectomy: Hyperplastic/inflammat ory polyp. See comment. mr 07/27/2024 COMMENT The results of immunohistochemistry for Helicobacter pylori will be reported separately ([id number]). MICROSCOPIC DESCRIPTION Slides are reviewed. GROSS DESCRIPTION Received in fixative is one container labeled with the patient's name and designated "Gastric polyp." The specimen consists of a single piece of red tissue measuring 1.6 x 1.4 x 0.8cm. The specimen appears to have a resection base which is inked black. The specimen is trisected and submitted in its entirety in two cassettes. Cassette 1 contains two pieces, cassette 2 contains one piece. mr 07/26/2024 TC:5 CPT:07604 ---- Patient Age/Sex Location Account Attending Physician ---- CHELSEY BELTRAN 74/F EN [id number] Denton Morgan DO ---- Signed (signature on file) Dr. Vince Main MD 07/27/24 1109 ---- Normal [facility] Comment on above: Performed By: #### P SUIV #### [facility] [address] [facility] [place], [place], [address] MR/PATErik 07-19-2024 MR/GÉNESIS.[facility] Medical Records Department [address] [place] [address] PAT - Anesthesia 07/19/242017 MR#: [id number] Acct: [id number] Name: CHELSEY BELTRAN Rep #: [id number] : 1950 74 From: Estuardo Perez MD PCP: Dr. Kanika Mike, DO Status:REG SDC Y Race: C Location: [place] [address] Pre-Assessment Diagnosis/Proposed Procedure Planned Operative Procedure(s): RIGHT MIDDLE FINGER A1 FRANCI RELEASE Anesthesia History Anesthesia History - cpas: Anesthesia History - cpas Hx Hospitalization Yes: 03/202407/19/24 14:49 Any Problems With Anesthesia Yes: NAUSEA 07/19/24 14:49 Cholinesterase deficiency No 07/19/24 14:49 You/Your Family Experience No 07/19/24 14:49 fever (hyperthermia) with Relationship Recent Exposure to Contagious No 04/24/24 12:20 Disease Does patient have nerve No 07/19/24 14:49 stimulator Patient instructed to have device shut off --Does patient have Pacemaker or ICD? When Was Last Pacemaker Check QUESTION #4 FULL TEXT: You/Your Family Experience fever (hyperthermia) with Anesthesia Last Oral Intake Last Oral intake: Last Oral Intake NPO since Meds taken in AM with sips of water? Meds patient instructed to take am of surgery PONV PONV - cpas: PONV - cpas Female Yes 07/19/24 14:49 HX of Motion Sickness Yes 07/19/24 14:49 HX of N/V After Surgery No 07/19/24 14:49 Non-Smoker Yes 07/19/24 14:49 Duration of Surgery greater No 07/19/24 14:49 than 60 minutes Number of Risk Factors 3 07/19/24 14:49 PONV Score Moderate Risk 07/19/24 14:49 Height Weight Height Weight: Anesthesia: Height Weight Height 5 ft 1 in 04/24/24 12:20 Respiratory Assessment Respiratory Assessment - cpas: Respiratory Tract Infection Hx - cpas Hx Respiratory Tract Infection No 07/19/24 14:49 STOP Sleep Apnea STOP Sleep Apnea - cpas: STOP Sleep Apnea - cpas Hx Hypertension Yes: controlled with med 07/19/24 14:49 Hx Sleep Apnea No 07/19/24 14:49 CPAP No 07/19/24 14:49 BIPAP Do you snore loudly (louder No 07/19/24 14:49 than talking or can be heard Do you often feel tired/ Yes 07/19/24 14:49 fatigued/ sleepy during daytime? Has anyone observed you stop No 07/19/24 14:49 breathing during sleep? STOP Results Positive 07/19/24 14:49 QUESTION #5 FULL TEXT : Do you snore loudly (louder than talking or can be heard through closed doors)? Tobacco Use History Tobacco Use History - cpas: Tobacco Use History - cpas Tobacco Use Smoking Status Never smoker 07/19/24 14:49 Hx Tobacco Use No 07/19/24 14:49 Years Smoking Packs Smoked per Day Smoking Cessation Date was within the last 15 years Hx Smoking Cessation Date Hx Smoking Cessation Counseling Hematologic Medial History Hematologic Hx - cpas: Hematologic Medical Hx - sales facilitator Hx of Blood Transfusion No 07/19/24 14:49 Hx of Transfusion in last 3 No 07/19/24 14:49 Months Date of Last Transfusion (if within last 3 months) Ever experience any problems No 07/19/24 14:49 with transfusion(s)? Specify any problems Hx of Preganancy in last 3 No 07/19/24 14:49 Months Nurse Filling Out Transfusion DSCHRIBER 07/19/24 14:49 Questions: Date: 07/19/24 07/19/24 14:49 Time: 14:50 07/19/24 14:49 Patient unable to answer at this time (ie. confused, unrespo /Reproduction History /Reproductive History - cpas: /Reproductive Hx- cpas Hx Now No 07/19/24 14:49 Gestational Age (in weeks): EDC: Hx Hx Para Hx Section SAB No 07/19/24 14:49 [facility] Medical History Wears glasses Post-menopausal Rheumatoid arthritis Ambulates with cane Polymyalgia rheumatica High cholesterol Giant cell arteritis Ulcerative colitis Non-smoker History of atrial fibrillation History of echocardiogram History of stress test Cardiology follow-up encounter Hypertension CAD (coronary artery disease) COVID-19 ( 06/2021) History of coronary artery disease Monoclonal gammopathy of unknown significance (MGUS) Monoclonal gammopathy Temporal arteritis Osteoarthritis of left shoulder Asthma HLD (hyperlipidemia) HTN (hypertension) Atherosclerotic heart disease 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 Acute ST elevation myocardial infarction GERD (gastroesophageal reflux disease) Hypothyroidism 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 Normal [facility] MR/PAT[facility] Medical Records Department [address] [place] [address] PAT - Anesthesia 07/19/242012 MR#: [id number] Acct: [id number] Name: CHELSEY BELTRAN Rep #: [id number] : 1950 74 From: Estuardo Perez MD PCP: Dr. Kanika Mike, DO Status:PRE [facility] [place] Y Race: C Location: EN Pre-Assessment Diagnosis/Proposed Procedure Planned Operative Procedure(s): ERCP STENT REMOVAL Anesthesia History Anesthesia History - cpas: Anesthesia History - cpas Hx Hospitalization Yes: 03/202407/19/24 15:03 Any Problems With Anesthesia Yes: NAUSEA 07/19/24 15:03 Cholinesterase deficiency No 07/19/24 15:03 You/Your Family Experience No 07/19/24 15:03 fever (hyperthermia) with Relationship Recent Exposure to Contagious No 04/24/24 12:20 Disease Does patient have nerve No 07/19/24 15:03 stimulator Patient instructed to have device shut off --Does patient have Pacemaker or ICD? When Was Last Pacemaker Check QUESTION #4 FULL TEXT: You/Your Family Experience fever (hyperthermia) with Anesthesia Last Oral Intake Last Oral intake: Last Oral Intake NPO since Meds taken in AM with sips of water? Meds patient instructed to take am of surgery PONV PONV - cpas: PONV - cpas Female Yes 07/19/24 15:03 HX of Motion Sickness Yes 07/19/24 15:03 HX of N/V After Surgery Yes 07/19/24 15:03 Non-Smoker Yes 07/19/24 15:03 Duration of Surgery greater No 07/19/24 15:03 than 60 minutes Number of Risk Factors 4 07/19/24 15:03 PONV Score Severe Risk 07/19/24 15:03 Height Weight Height Weight: Anesthesia: Height Weight Height 5 ft 1 in 04/24/24 12:20 Respiratory Assessment Respiratory Assessment - cpas: Respiratory Tract Infection Hx - cpas Hx Respiratory Tract Infection No 07/19/24 15:03 STOP Sleep Apnea STOP Sleep Apnea - cpas: STOP Sleep Apnea - cpas Hx Hypertension Yes: controlled with med 07/19/24 15:03 Hx Sleep Apnea No 07/19/24 15:03 CPAP No 07/19/24 15:03 BIPAP Do you snore loudly (louder No 07/19/24 15:03 than talking or can be heard Do you often feel tired/ Yes 07/19/24 15:03 fatigued/ sleepy during daytime? Has anyone observed you stop No 07/19/24 15:03 breathing during sleep? STOP Results Positive 07/19/24 15:03 QUESTION #5 FULL TEXT : Do you snore loudly (louder than talking or can be heard through closed doors)? 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 Specify any problems Hx of Preganancy in last 3 No 07/19/24 15:03 Months Nurse Filling Out Transfusion DSCHRIBER 07/19/24 15:03 Questions: Date: 07/19/24 07/19/24 15:03 Time: 15:03 07/19/24 15:03 Patient unable to answer at this time (ie. confused, unrespo /Reproduction History /Reproductive History - cpas: /Reproductive Hx- cpas Hx Now No 07/19/24 15:03 Gestational Age (in weeks): EDC: Hx Hx Para Hx Section SAB No 07/19/24 15:03 PFSH Medical History Wears glasses Post-menopausal Rheumatoid arthritis Ambulates with cane Polymyalgia rheumatica High cholesterol Giant cell arteritis Ulcerative colitis Non-smoker History of atrial fibrillation History of echocardiogram History of stress test Cardiology follow-up encounter Hypertension CAD (coronary artery disease) COVID-19 ( 06/2021) History of coronary artery disease Monoclonal gammopathy of unknown significance (MGUS) Monoclonal gammopathy Temporal arteritis Osteoarthritis of left shoulder Asthma HLD (hyperlipidemia) HTN (hypertension) Atherosclerotic heart disease 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 Acute ST elevation myocardial infarction GERD (gastroesophageal reflux disease) Hypothyroidism 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 Normal [facility] Medical Records Department [address] [place] [address] PAT - Anesthesia 07/19/242011 MR#: [id number] Acct: [id number] Name: CHELSEY BELTRAN Rep #: [id number] : 1950 74 From: Estuardo Perez MD PCP: Dr. Kanika Mike, DO Status:PRE SDC Y Race: C Location: EN Pre-Assessment Diagnosis/Proposed Procedure Planned Operative Procedure(s): ERCP STENT REMOVAL Anesthesia History Anesthesia History - cpas: Anesthesia History - cpas Hx Hospitalization Yes: 03/202407/19/24 15:03 Any Problems With Anesthesia Yes: NAUSEA 07/19/24 15:03 Cholinesterase deficiency No 07/19/24 15:03 You/Your Family Experience No 07/19/24 15:03 fever (hyperthermia) with Relationship Recent Exposure to Contagious No 04/24/24 12:20 Disease Does patient have nerve No 07/19/24 15:03 stimulator Patient instructed to have device shut off --Does patient have Pacemaker or ICD? When Was Last Pacemaker Check QUESTION #4 FULL TEXT: You/Your Family Experience fever (hyperthermia) with Anesthesia Last Oral Intake Last Oral intake: Last Oral Intake NPO since Meds taken in AM with sips of water? Meds patient instructed to take am of surgery PONV PONV - cpas: PONV - cpas Female Yes 07/19/24 15:03 HX of Motion Sickness Yes 07/19/24 15:03 HX of N/V After Surgery Yes 07/19/24 15:03 Non-Smoker Yes 07/19/24 15:03 Duration of Surgery greater No 07/19/24 15:03 than 60 minutes Number of Risk Factors 4 07/19/24 15:03 PONV Score Severe Risk 07/19/24 15:03 Height Weight Height Weight: Anesthesia: Height Weight Height 5 ft 1 in 04/24/24 12:20 Respiratory Assessment Respiratory Assessment - cpas: Respiratory Tract Infection Hx - cpas Hx Respiratory Tract Infection No 07/19/24 15:03 STOP Sleep Apnea STOP Sleep Apnea - cpas: STOP Sleep Apnea - cpas Hx Hypertension Yes: controlled with med 07/19/24 15:03 Hx Sleep Apnea No 07/19/24 15:03 CPAP No 07/19/24 15:03 BIPAP Do you snore loudly (louder No 07/19/24 15:03 than talking or can be heard Do you often feel tired/ Yes 07/19/24 15:03 fatigued/ sleepy during daytime? Has anyone observed you stop No 07/19/24 15:03 breathing during sleep? STOP Results Positive 07/19/24 15:03 QUESTION #5 FULL TEXT : Do you snore loudly (louder than talking or can be heard through closed doors)? 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 Specify any problems Hx of Preganancy in last 3 No 07/19/24 15:03 Months Nurse Filling Out Transfusion DSCHRIBER 07/19/24 15:03 Questions: Date: 07/19/24 07/19/24 15:03 Time: 15:03 07/19/24 15:03 Patient unable to answer at this time (ie. confused, unrespo /Reproduction History /Reproductive History - cpas: /Reproductive Hx- cpas Hx Now No 07/19/24 15:03 Gestational Age (in weeks): EDC: Hx Hx Para Hx Section SAB No 07/19/24 15:03 PFS Medical History Wears glasses Post-menopausal Rheumatoid arthritis Ambulates with cane Polymyalgia rheumatica High cholesterol Giant cell arteritis Ulcerative colitis Non-smoker History of atrial fibrillation History of echocardiogram History of stress test Cardiology follow-up encounter Hypertension CAD (coronary artery disease) COVID-19 ( 06/2021) History of coronary artery disease Monoclonal gammopathy of unknown significance (MGUS) Monoclonal gammopathy Temporal arteritis Osteoarthritis of left shoulder Asthma HLD (hyperlipidemia) HTN (hypertension) Atherosclerotic heart disease 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 Acute ST elevation myocardial infarction GERD (gastroesophageal reflux disease) Hypothyroidism 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 Normal [facility] Medical Records Department [address] [place] [address] PAT - Anesthesia 07/19/241947 MR#: [id number] Acct: [id number] Name: CHELSEY BELTRAN Rep #: [id number] : 1950 74 From: Estuardo Perez MD PCP: Dr. Kanika Mike, DO Status:PRE SDC Y Race: C Location: EN Pre-Assessment Diagnosis/Proposed Procedure Planned Operative Procedure(s): ERCP STENT REMOVAL Anesthesia History Anesthesia History - cpas: Anesthesia History - cpas Hx Hospitalization Yes: 03/202407/19/24 15:03 Any Problems With Anesthesia Yes: NAUSEA 07/19/24 15:03 Cholinesterase deficiency No 07/19/24 15:03 You/Your Family Experience No 07/19/24 15:03 fever (hyperthermia) with Relationship Recent Exposure to Contagious No 04/24/24 12:20 Disease Does patient have nerve No 07/19/24 15:03 stimulator Patient instructed to have device shut off --Does patient have Pacemaker or ICD? When Was Last Pacemaker Check QUESTION #4 FULL TEXT: You/Your Family Experience fever (hyperthermia) with Anesthesia Last Oral Intake Last Oral intake: Last Oral Intake NPO since Meds taken in AM with sips of water? Meds patient instructed to take am of surgery PONV PONV - cpas: PONV - cpas Female Yes 07/19/24 15:03 HX of Motion Sickness Yes 07/19/24 15:03 HX of N/V After Surgery Yes 07/19/24 15:03 Non-Smoker Yes 07/19/24 15:03 Duration of Surgery greater No 07/19/24 15:03 than 60 minutes Number of Risk Factors 4 07/19/24 15:03 PONV Score Severe Risk 07/19/24 15:03 Height Weight Height Weight: Anesthesia: Height Weight Height 5 ft 1 in 04/24/24 12:20 Respiratory Assessment Respiratory Assessment - cpas: Respiratory Tract Infection Hx - cpas Hx Respiratory Tract Infection No 07/19/24 15:03 STOP Sleep Apnea STOP Sleep Apnea - cpas: STOP Sleep Apnea - cpas Hx Hypertension Yes: controlled with med 07/19/24 15:03 Hx Sleep Apnea No 07/19/24 15:03 CPAP No 07/19/24 15:03 BIPAP Do you snore loudly (louder No 07/19/24 15:03 than talking or can be heard Do you often feel tired/ Yes 07/19/24 15:03 fatigued/ sleepy during daytime? Has anyone observed you stop No 07/19/24 15:03 breathing during sleep? STOP Results Positive 07/19/24 15:03 QUESTION #5 FULL TEXT : Do you snore loudly (louder than talking or can be heard through closed doors)? 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 Specify any problems Hx of Preganancy in last 3 No 07/19/24 15:03 Months Nurse Filling Out Transfusion DSCHRIBER 07/19/24 15:03 Questions: Date: 07/19/24 07/19/24 15:03 Time: 15:03 07/19/24 15:03 Patient unable to answer at this time (ie. confused, unrespo /Reproduction History /Reproductive History - cpas: /Reproductive Hx- cpas Hx Now No 07/19/24 15:03 Gestational Age (in weeks): EDC: Hx Hx Para Hx Section SAB No 07/19/24 15:03 PFSH Medical History Wears glasses Post-menopausal Rheumatoid arthritis Ambulates with cane Polymyalgia rheumatica High cholesterol Giant cell arteritis Ulcerative colitis Non-smoker History of atrial fibrillation History of echocardiogram History of stress test Cardiology follow-up encounter Hypertension CAD (coronary artery disease) COVID-19 ( 06/2021) History of coronary artery disease Monoclonal gammopathy of unknown significance (MGUS) Monoclonal gammopathy Temporal arteritis Osteoarthritis of left shoulder Asthma HLD (hyperlipidemia) HTN (hypertension) Atherosclerotic heart disease 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 Acute ST elevation myocardial infarction GERD (gastroesophageal reflux disease) Hypothyroidism 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 Normal [facility] Orthopedic Visit Reporton Orthopedic Visit Report [facility] [address] [place] [address] OFFICE VISIT Date of Service: 07/04/24 MR#: [id number] Acct: [id number] Name: CHELSEY BELTRAN Rep #: [id number] : 1950 Provider: Dr. Raj crow DO Age/Sex: 73/F [place] [facility] [place]: Signed Intake Vital Signs 04/24/24 12:20 Height 5 ft 1 in Intake Visit Reasons: RIGHT HAND Chief Complaint: post cholecystectomy Allergies clarithromycin (From Biaxin) Allergy (Verified 07/04/24 11:30) Rash sulfamethoxazole (From Bactrim) Allergy (Verified 07/04/24 11:30) Rash trimethoprim (From Bactrim) Allergy (Verified 07/04/24 11:30) Rash carvedilol (From Coreg) Adverse Reaction (Intermediate, Verified 07/04/24 11:30) Nausea, Lightheaded codeine Adverse Reaction (Verified 07/04/24 11:30) Upset Stomach lisinopril Adverse Reaction (Verified 07/04/24 11:30) cough Penicillins Adverse Reaction (Verified 07/04/24 11:30) Other Medications ???Medication ???Instructions ???Recorded ???Confirmed ???Type levothyroxine 50 mcg tablet 50 mcg PO DAILY Thyroid 12/31/16 07/04/24 History acetaminophen 500 mg tablet 500 - 1,000 mg PO DAILY PRN PRN 08/06/20 07/04/24 History Pain 1-10 Or Fever potassium chloride 20 mEq 20 meq PO DAILY supplement 09/22/20 07/04/24 History tablet,extended release(part/cryst) omeprazole 40 mg capsule,delayed 40 mg PO DAILY gerd 08/05/21 07/04/24 History release atorvastatin 80 mg tablet 80 mg PO QHS cholesterol 08/08/21 07/04/24 History hydrochlorothiazide 25 mg tablet 25 mg PO DAILY diuretic 08/28/21 07/04/24 History cholecalciferol (vitamin D3) 50 2,000 unit PO DAILY SUPPLEMENT 04/05/22 07/04/24 History mcg (2,000 unit) capsule metoprolol tartrate 50 mg tablet 50 mg PO BID this is a dose 09/28/23 07/04/24 Rx increase #180 tabs mecobalamin (vitamin B12) 1,000 1,000 mcg sublingual DAILY 10/26/23 07/04/24 History mcg disintegrating supplement tablet,sublingual losartan 25 mg tablet 25 mg PO DAILY blood pressure #90 06/18/24 07/04/24 Rx tabs Have you fallen in the past year?: No PFSH Medical History Wears glasses Post-menopausal Thyroid disease Rheumatoid arthritis Ambulates with cane Polymyalgia rheumatica High cholesterol Giant cell arteritis Ulcerative colitis Non-smoker History of atrial fibrillation History of echocardiogram History of stress test Cardiology follow-up encounter Hypertension CAD (coronary artery disease) COVID-19 ( 06/2021) History of RI (myocardial infarction) History of coronary artery disease Essential hypertension Monoclonal gammopathy of unknown significance (MGUS) Monoclonal gammopathy Temporal arteritis Osteoarthritis of left shoulder Asthma HLD (hyperlipidemia) HTN (hypertension) Atherosclerotic heart disease 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 Acute ST elevation myocardial infarction GERD (gastroesophageal reflux disease) Hypothyroidism 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 Retinal tear of left eye Ulnar neuropathy Polyclonal gammopathy GERD (gastroesophageal reflux disease) IBS (irritable bowel syndrome) Vitamin D deficiency Osteopenia Incontinence Knee pain PVC's (premature ventricular contractions) SOB (shortness of breath) Arthritis Surgical History S/P cholecystectomy History of cataract extraction with lens replacement History of coronary artery stent placement History of cardiac catheterization History of ERCP History of temporal artery biopsy ( 12/2018) History of delivery Stented coronary artery (06/20/18) History of dilatation and curettage Hx of breast biopsy Hx of tonsillectomy Family History Mother Cancer skin Anemia Father Cancer Heart disease Social History Smoking Status: Never smoker alcohol intake: never substance use type: does not use caffeine: No HPI RIGHT HAND Details: This documentation accurately reflects the service provided and the decisions made by me, Dr. Raj Walker, DO 07/04/24 0820. Part of today???s visit was documented by Latosha TRNA, acting as scribe. CHELSEY BELTRAN is a 73 year old F here today for her right middle finger trigger finger. She states that just this morning her finger locked on her and she had to use her other hand to straighten it. Her pain in in the middle finger and in her pal. She would like to discuss having another injection vs. having surgery. She last had an injection on 12/19/23 which gave her a relief up until about a month ago. 12/19/2023 visit: here today for right middle finger trigger finger . locked up and she patel (more content not included)... Normal [facility] Bilirubin directOrdered By: Layla Coronado on 05-28-2024 Bilirubin.direct [Mass/Vol] 0.19 mg/dL 0.00-0.30 [facility] Bilirubin, totalOrdered By: Layla Coronado on 05-28-2024 Bilirubin [Mass/Vol] 0.60 mg/dL 0.20-1.00 [facility] Comment on above: For patients on eltr ombopag therapy, use of Dimension Carey TBIL is not recommended. Gastroenterology Visit Repor ton 05-28-2024 Gastroenterology Visit Report [facility] Gastroenterology [address] [place] [address] OFFICE VISIT Date of Service: 05/28/24 MR#: [id number] Acct: [id number] Name: CHELSEY BELTRAN Rep #: [id number] : 1950 Provider: GORDY connor Age/Sex: 73/F [place] [facility] Status: Signed Intake Vital Signs 04/17/24 02:19 04/24/24 12:20 05/28/24 10:16 Height 5 ft 1 in 5 ft 1 in Weight: 170 lb 4 oz BP 98/64 Respiration 18 Pulse 65 Pulse Oximetry (%) 96 Oxygen Delivery Method room air Intake Visit Reasons: Hospital FU Chief Complaint: post cholecystectomy [employer] Required: No Is patient in pain?: Yes Allergies clarithromycin (From Biaxin) Allergy (Verified 05/28/24 10:11) Rash sulfamethoxazole (From Bactrim) Allergy (Verified 05/28/24 10:11) Rash trimethoprim (From Bactrim) Allergy (Verified 05/28/24 10:11) Rash carvedilol (From Coreg) Adverse Reaction (Intermediate, Verified 05/28/24 10:11) Nausea, Lightheaded codeine Adverse Reaction (Verified 05/28/24 10:11) Upset Stomach lisinopril Adverse Reaction (Verified 05/28/24 10:11) cough Penicillins Adverse Reaction (Verified 05/28/24 10:11) Other Medications ???Medication ???Instructions ???Recorded ???Confirmed ???Type levothyroxine 50 mcg tablet 50 mcg PO DAILY Thyroid 12/31/16 05/28/24 History acetaminophen 500 mg tablet 500 - 1,000 mg PO DAILY PRN PRN 08/06/20 05/28/24 History Pain 1-10 Or Fever potassium chloride 20 mEq 20 meq PO DAILY supplement 09/22/20 05/28/24 History tablet,extended release(part/cryst) omeprazole 40 mg capsule,delayed 40 mg PO DAILY gerd 08/05/21 05/28/24 History release atorvastatin 80 mg tablet 80 mg PO QHS cholesterol 08/08/21 05/28/24 History hydrochlorothiazide 25 mg tablet 25 mg PO DAILY diuretic 08/28/21 05/28/24 History cholecalciferol (vitamin D3) 50 2,000 unit PO DAILY SUPPLEMENT 04/05/22 05/28/24 History mcg (2,000 unit) capsule losartan 25 mg tablet 25 mg PO DAILY blood pressure #90 07/06/23 05/28/24 Rx tabs metoprolol tartrate 50 mg tablet 50 mg PO BID this is a dose 09/28/23 05/28/24 Rx increase #180 tabs mecobalamin (vitamin B12) 1,000 1,000 mcg sublingual DAILY 10/26/23 05/28/24 History mcg disintegrating supplement tablet,sublingual Have you fallen in the past year?: No Nurse's Note: Occasionally has an abd spasm. Has had a lot gas and gurgling. PFSH Medical History (Updated 05/28/24 @ 10:44 by Layla Coronado, [place]) Wears glasses Post-menopausal Thyroid disease Rheumatoid arthritis Ambulates with cane Polymyalgia rheumatica High cholesterol Giant cell arteritis Ulcerative colitis Non-smoker History of atrial fibrillation History of echocardiogram History of stress test Cardiology follow-up encounter Hypertension CAD (coronary artery disease) COVID-19 ( 06/2021) History of RI (myocardial infarction) History of coronary artery disease Essential hypertension Monoclonal gammopathy of unknown significance (MGUS) Monoclonal gammopathy Temporal arteritis Osteoarthritis of left shoulder Asthma HLD (hyperlipidemia) HTN (hypertension) Atherosclerotic heart disease 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 Acute ST elevation myocardial infarction GERD (gastroesophageal reflux disease) Hypothyroidism 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 Retinal tear of left eye Ulnar neuropathy Polyclonal gammopathy GERD (gastroesophageal reflux disease) IBS (irritable bowel syndrome) Vitamin D deficiency Osteopenia Incontinence Knee pain PVC's (premature ventricular contractions) SOB (shortness of breath) Arthritis Surgical History (Updated 05/09/24 @ 13:38 by Garima Duke) S/P cholecystectomy History of cataract extraction with lens replacement History of coronary artery stent placement History of cardiac catheterization History of ERCP History of temporal artery biopsy ( 12/2018) History of delivery Stented coronary artery (06/20/18) History of dilatation and curettage Hx of breast biopsy Hx of tonsillectomy Family History Mother Cancer skin Anemia Father Cancer Heart disease Social History Smoking Status: Never smoker alcohol intake: never substance use type: does not use caffeine: No HPI HPI Chief Complaint: post cholecystectomy Details: CHELSEY BELTRAN, is a 73 F who presents to the office today for - needs to have stent removed - CCX - 04/24/2024 abdominal pain/nausea/vomiting and on workup was found to have cholelithiasis, choledocholithiasis status post ERCP last week. Laparoscopic cholecystectomy was elected. - occasional abdominal spasms - gnawing on itself - denies any emesis - burning - impro (more content not included)... Normal [facility] Laboratory - Chemistry and C hemistry - challengeOrdered By: Layla Coronado on 05-28-2024 AST [Catalytic activity/Vol] 17 U/L 15-37 [facility] Liver Profileon 05-28-2024 Albumin [Mass/Vol] 3.1 g/dL Low 3.2-5.0 [facility] Comment on above: Performed By: #### L [id number] ####[facility] [address] [place], [address] ALK P 114 U/L Normal 45-117 [facility] Comment on above: Performed By: #### L [id number] ####[facility] [address] [place], [address] ALT [Catalytic activity/Vol] 19 U/L Normal 13-56 [facility] Comment on above: Performed By: #### L [id number] ####[facility] [address] [place], [address] AST [Catalytic activity/Vol] 17 U/L Normal 15-37 [facility] Comment on above: Performed By: #### L [id number] ####[facility] [address] [place], [address] Bilirubin [Mass/Vol] 0.60 mg/dL Normal 0.20-1.00 [facility] Comment on above: Result Comment: For patients on eltrombopag therapy, use of Dimension Carey TBIL is not recommended. Performed By: #### L [id number] ####[facility] [address] [place], [address] Bilirubin.direct [Mass/Vol] 0.19 mg/dL Normal 0.00-0.30 [facility] Comment on above: Performed By: #### L [id number] ####[facility] [address] [place], [address] Globulin (S) [Mass/Vol] 3.4 g/dL Normal 2.2-4.2 [facility] Comment on above: Performed By: #### L [id number] ####[facility] [address] [place], [place], [address] T PROT 6.5 g/dL Normal 6.4-8.2 [facility] Comment on above: Performed By: #### L [id number] ####[facility] [address] [place], [place], [address] Serum globulin measurementOr dered By: Layla Coronado on 05-28-2024 Globulin (S) [Mass/Vol] 3.4 g/dL 2.2-4.2 [facility] Serum or plasma alanine fish otransferase (ALT) measurementOrdered By: Layla Coronado on 05-28-2024 ALT [Catalytic activity/Vol] 19 U/L 13-56 [facility] Serum or plasma albumin huma urement (mass/volume)Ordered By: Layla Coronado on 05-28-2024 Albumin [Mass/Vol] 3.1 g/dL Low 3.2-5.0 [facility] Serum or plasma alkaline lisa sphatase measurementOrdered By: Layla Coronado on 05-28-2024 ALP [Catalytic activity/Vol] 114 U/L 45-117 [facility] Total proteinOrdered By: Maribell Coronado on 05-28-2024 Protein [Mass/Vol] 6.5 g/dL 6.4-8.2 [facility] Surgery Visit Reporton 05-09 Surgery Visit Report [facility] [address] [place] [address] OFFICE VISIT Date of Service: 05/09/24 MR#: [id number] Acct: [id number] Name: CHELSEY BELTRAN Rep #: [id number] : 1950 Provider: ROSY corcoran Age/Sex: 73/F Location: [facility] Status: Signed Intake Vital Signs 04/24/24 12:20 Height 5 ft 1 in Intake Visit Reasons: GALLBLADDER 04-24 Chief Complaint: gallbladder Allergies clarithromycin (From Biaxin) Allergy (Verified 05/09/24 13:37) Rash sulfamethoxazole (From Bactrim) Allergy (Verified 05/09/24 13:37) Rash trimethoprim (From Bactrim) Allergy (Verified 05/09/24 13:37) Rash carvedilol (From Coreg) Adverse Reaction (Intermediate, Verified 05/09/24 13:37) Nausea, Lightheaded codeine Adverse Reaction (Verified 05/09/24 13:37) Upset Stomach lisinopril Adverse Reaction (Verified 05/09/24 13:37) cough Penicillins Adverse Reaction (Verified 05/09/24 13:37) Other Medications ???Medication ???Instructions ???Recorded ???Confirmed ???Type levothyroxine 50 mcg tablet 50 mcg PO DAILY Thyroid 12/31/16 05/09/24 History acetaminophen 500 mg tablet 500 - 1,000 mg PO DAILY PRN PRN 08/06/20 05/09/24 History Pain 1-10 Or Fever potassium chloride 20 mEq 20 meq PO DAILY supplement 09/22/20 05/09/24 History tablet,extended release(part/cryst) omeprazole 40 mg capsule,delayed 40 mg PO DAILY gerd 08/05/21 05/09/24 History release atorvastatin 80 mg tablet 80 mg PO QHS cholesterol 08/08/21 05/09/24 History hydrochlorothiazide 25 mg tablet 25 mg PO DAILY diuretic 08/28/21 05/09/24 History cholecalciferol (vitamin D3) 50 2,000 unit PO DAILY SUPPLEMENT 04/05/22 05/09/24 History mcg (2,000 unit) capsule losartan 25 mg tablet 25 mg PO DAILY blood pressure #90 07/06/23 05/09/24 Rx tabs metoprolol tartrate 50 mg tablet 50 mg PO BID this is a dose 09/28/23 05/09/24 Rx increase #180 tabs mecobalamin (vitamin B12) 1,000 1,000 mcg sublingual DAILY 10/26/23 05/09/24 History mcg disintegrating supplement tablet,sublingual aspirin 81 mg chewable tablet 81 mg PO DAILY #30 tabs 12/21/23 05/09/24 Rx tramadol 50 mg tablet 50 mg PO Q6H PRN pain #7 tabs 04/24/24 05/09/24 Rx Have you fallen in the past year?: No Subjective Details: Patient is a 73 y/o F I am following s/p laparoscopic cholecystectomy with intraoperative cholangiogram by Dr. Whitehead on 04/24/24. Patient tolerated the procedure well. Patient was perviously hospitalized with choledocholithiasis. Dr. Morgan performed an ERCP with stent placement on 04/16/24. Patient denies any nausea, vomiting, fever. She notes umbilical incision tenderness. She notes appetite has returned to normal. She notes bowel habits are normal. Pathology demonstrated acute and chronic cholecystitis and cholelithiasis. Objective Details: Abdomen- soft, slight tenderness at the umbilical incision. Incisions c/d/i. No erythema or infection noted. Patient keeping a bandage on the umbilical incision and epigastric incision. Coding Level of Care Code Global Post Op Diagnoses S/P cholecystectomy Z90.49 [facility] Medical History (Updated 04/26/24 @ 00:01 by Doni Powers) Wears glasses Post-menopausal Thyroid disease Rheumatoid arthritis Ambulates with cane Polymyalgia rheumatica High cholesterol Giant cell arteritis Ulcerative colitis Non-smoker History of atrial fibrillation History of echocardiogram History of stress test Cardiology follow-up encounter Hypertension CAD (coronary artery disease) COVID-19 ( 06/2021) History of RI (myocardial infarction) History of coronary artery disease Essential hypertension Monoclonal gammopathy of unknown significance (MGUS) Monoclonal gammopathy Temporal arteritis Osteoarthritis of left shoulder Asthma HLD (hyperlipidemia) HTN (hypertension) Atherosclerotic heart disease 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 Acute ST elevation myocardial infarction GERD (gastroesophageal reflux disease) Hypothyroidism 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 Retinal tear of left eye Ulnar neuropathy Polyclonal gammopathy GERD (gastroesophageal reflux disease) IBS (irritable bowel syndrome) Vitamin D deficiency Osteopenia Incontinence Knee pain PVC's (premature ventricular contractions) SOB (shortness of breath) Arthritis Surgical History (Updated 05/09/24 @ 13:38 by Garima Duke) S/P cholecystectomy History of cataract extraction with lens replacement History of coronary artery stent placement History of cardiac catheterization History of ERCP History of temporal artery biopsy ( 12/2018) History of delivery Stented coronary artery (06/20/18) History of dilatation and curettage Hx of breast biopsy Hx of tonsillectomy Family History (Reviewed (more content not included)... Normal [facility] Cholangiogram/ O R,Initialon 10-29-2024 Cholangiogram/ O R,Initial [facility] Imaging Services [address] [place] [address] Cholangiogram/ O R,Initial MR#: [id number] Acct: [id number] Name: CHELSEY BELTRAN Rep #: [id number] : 1950 F 73 From: Nathan Brito PCP: Dr. Kanika Mike DO Status: [facility] Study: Cholangiogram/ O R,Initial Date of Exam: 04/24 Exam# [id number] Ordering Dr: Opal Whitehead MD [id number] INDICATION: LAP ROXI EXAMINATION/TECHNIQUE: Cine intraoperative views are presented for evaluation. Total Fluoroscopic Time: 9 seconds Radiation dosage index: 3.42 mGy COMPARISON: No relevant prior comparison study available FINDINGS: The common bile duct was opacified. Filling defects are seen in the common bile duct concerning for retained stones. Air bubbles cannot be excluded. Slightly prominent common bile duct. There is free passage into the duodenum. RAD/Cholangiogram/ O R,Initial IMPRESSION: Filling defects in the common bile duct concerning for retained stones although air bubbles are possible. Electronically Signed: Nathan Segal MD at 14:14 EDT , CC: Dr. Kanika Mike DO; Dr. Opal Whitehead MD Floral Artist: Signed Normal [facility] Discharge Instructionon 03-28 Discharge Instruction [facility] Medical Records Department [address] [place] [address] Instructions for Home/Discharge Instructions 04/24/24 1358 MR#: [id number] Acct: [id number] Name: CHELSEY BELTRAN Rep #: [id number] : 1950 73 From: Opal Whitehead MD PCP: Dr. Kanika Mike, DO Status:REG [facility] [place] Discharge Instructions Diet Discharge Diet: Light diet - advance as tolerated Activity Discharge Activity: May Not Drive (while taking narcotic pain medications.) May shower in (days): 1 Lifting Restrictions: no lifting >20 lbs x 2 wks, no strenuous exercise for 4 wks Dressing / Incision Call your doctor if your incision/area has: Continuous Slow Oozing, Sudden Increased Bleeding, Increased Pain/ Swelling, Increased Redness, Foul Smelling Discharge and Swelling at the incision site Call your doctor if you observe: Fever of 101 or Higher Remove Dressing in: 2 days Cleanse incision/area with: Soap Water Additional Dressing/Incision Instructions:: Steri-Strips will fall off in 7 to 10 days, if they do not fall off okay to remove after 10 days. Follow Up Care Please Follow Up With: Opal Whitehead MD When: Call the office for a follow-up appointment 2 weeks; after 5 PM and on the weekends call [phone] with any concerns. Test Results: Test results from this visit will be discussed in further detail at your follow-up appointment, if applicable. Discharge Plan Admission Attending Provider: Opal Whitehead Primary Care Provider: Kanika Mike Instructions Additional Instructions / Restrictions: Okay to take ibuprofen 400-600 mg PO q6hr PRN and Tylenol 650 mg p.o. every 6 hours as needed along with the tramadol Take all pain meds with food. Tramadol can cause constipation recommend taking daily stool softener (i.e. Colace/docusate) while taking the pain meds. Recommend starting some MiraLAX tomorrow if no bowel movement. If still no bowel movement the next day take additional MiraLAX and the following day recommend taking magnesium citrate half the bottle and waiting 4-6 hours if still no results take the other half the bottle. Print Language: Taiwanese Discharge Orders/Prescriptions Prescriptions: New tramadol 50 mg tablet 50 mg PO Q6H PRN (Reason: pain) Qty: 7 0RF Continued metronidazole 0.75 % cream 1 applicatio TOPICAL DAILY 68 Days Qty: 135 Rx Instructions: FOR ROSACEA cholecalciferol (vitamin D3) 50 mcg (2,000 unit) capsule 2,000 unit PO DAILY mecobalamin (vitamin B12) 1,000 mcg tablet,disintegrating 1,000 mcg sublingual DAILY Rx Instructions: place tablet under tongue and allow to dissolve for at least30 secs before swallowing levothyroxine 50 MCG tablet 50 mcg PO DAILY potassium chloride 20 mEq tablet,ER particles/crystals 20 meq PO DAILY omeprazole 40 mg capsule,delayed release(DR/EC) 40 mg PO DAILY acetaminophen 500 MG tablet 500 - 1,000 mg PO DAILY PRN PRN (Reason: Pain 1-10 Or Fever) atorvastatin 80 mg tablet 80 mg PO QHS hydrochlorothiazide 25 mg tablet 25 mg PO DAILY losartan 25 mg tablet 25 mg PO DAILY Qty: 90 3RF metoprolol tartrate 50 mg tablet 50 mg PO BID Qty: 180 3RF Held aspirin 81 mg tablet,chewable 81 mg PO DAILY Qty: 30 11RF Hold Instructions: Resume on 04/26/24. Referrals / Follow Up: Kanika Mike DO [Primary Care Provider] - Disposition Disposition (needs filled in before D/C Order can be placed): Home, Self Care 04/24/24 1403 Opal Whitehead MD CC: Dr. Kanika Mike DO Signed [facility] MR/POSTOP.[facility] 04-24-2024 MR/POSTOP.[facility] Medical Records Department [address] [place] [address] Anesthesia Postop Eval I 04/24/24 1412 MR#: [id number] Acct: [id number] Name: OCTAVIOCHELSEY THOMSON Hubert Rep #: [id number] : 1950 73 From: Luiza Rivas CRNA PCP: Dr. Kanika Mike DO Status:REG SDC Y Race: C Location: [place] [address] Anesthesia: Postop Eval I Current Vital Signs Temperature: 98.1 F Pulse Rate: 83 Blood Pressure: 142/68 Respiratory Rate: 18 Pulse Ox: 94 Oxygen Delivery Method: Room Air Assessment Airway patent: Yes Spontaneous unlabored respirations: Yes Mental status: Awake and Calm nausea: No Vomiting: No Anesthesia Complication: No Fluid Hydration Crystalloid volume administer (ml): 400 Total IV fluid infused: 400 Progress Note Anesthesia document: Postop Eval 1 completed: Yes 04/24/24 1413 Date Luiza Rivas [employer] Nbaigner Signature: Date CC: Signed Normal [facility] MR/[id number] 04-24-2024 MR/POSTOPAN2 [facility] Medical Records Department [address] [place] [address] Anesthesia Postop Eval II 04/24/24 1444 MR#: [id number] Acct: [id number] Name: CHELSEY BELTRAN Rep #: [id number] : 1950 73 From: Maurilio Calvo MD PCP: Dr. Kanika Mike, DO Status:REG MAC Y Race: C Location: [place] [address] Anesthesia Postop Eval I Sum Postop Eval Completion status Anesthesia document: Postop Eval 1 completed: Yes Anesthesia Postop Eval I Summary Anesthesia Postop Eval I Summary: Anesthesia Postop Eval I: Assessment Summary Airway patent Yes 04/24/24 14:13 [employer].SCHR Spontaneous unlabored Yes 04/24/24 14:13 [employer].SCHR respirations Mental status Awake,Calm 04/24/24 14:13 [employer]SCHR nausea No 04/24/24 14:13 [employer]SCHR Vomiting No 04/24/24 14:13 [employer].SCHR Anesthesia Postop Eval I: Fluid Summary Crystalloid volume administer 400 04/24/24 14:13 [employer].SCHR (ml) Colloids volume administered ( ml) Blood Product volume administered (ml) Total IV fluid infused 400 04/24/24 14:13 [employer].SCHR Anesthesia Postop Eval I: Summary Notes Anesthesia Complication No 04/24/24 14:13 [employer].SCHR Anesthesia Complication Comment: Post-operative progress note Anesthesia: Postop Eval II Evaluation Mental status: Awake Pain Level: 0 nausea: No Vomiting: No 04/24/24 1444 Date Maurilio Perez Signature: Date CC: Signed Normal [facility] Operative Reporton 4 Operative Report [facility] Medical Records Department [address] [place] [address] Operative Report 04/24/24 1355 MR#: [id number] Acct: [id number] Name: CHELSEY BELTRAN Rep #: [id number] : 1950 73 From: Opal Whitehead MD PCP: Dr. Kanika Mike DO Status:[facility] Location: [place] [address] Operative Report (Standard) Operative Information Surgery/Procedure Performed: Laparoscopic cholecystectomy with cholangiograms Surgeon: Opal Whitehead Date of Procedure: 04/24/24 Procedure Start Time: 13:19 Procedure Stop Time: 14:03 Pre-Operative Diagnosis: Cholelithiasis, history of choledocholithiasis status post ERCP Post-Operative Diagnosis: Same Select all DRAINS/GRAFTS/IMPLANTS that apply: None Type of Anesthesia: General/Supplemental Special Medications: Cipro 400 mg IV x 1, Flagyl 500 mg grams IV x 1 Estimated Blood Loss: 10 cc Fluids Replaced: 400 cc Specimen collected: Yes Description of specimen(s) removed: Gallbladder Description of surgery: Indications: this is a 73 year-old female who developed abdominal pain/nausea/vomiting and on workup was found to have cholelithiasis, choledocholithiasis status post ERCP last week. Laparoscopic cholecystectomy was elected. Description procedure: The patient was placed on operating table in supine position. A timeout was completed verifying correct patient, procedure, site, position and special equipment prior to beginning procedure. General Anesthesia was induced. The abdomen was prepped and draped in usual sterile fashion. An incision was made in the natural skin line above the umbilicus. The fascia was elevated and incised. The peritoneum was elevated and incised. Entry into the peritoneum was confirmed visually and no bowel was noted in the vicinity of the incision. Gold trocar was placed. The abdomen was insufflated with carbon dioxide to a pressure of 12-15 mmHg. Patient tolerated insufflation well. The laparoscope was then inserted and abdomen inspected. No injuries from initial trocar placement were noted. Additional trochars were then inserted in the following locations 5 mm trocar in the epigastrium and 2 more 5 mm trochars along the right costal margin. The abdomen was inspected no abnormalities were found. The table is placed in reverse Trendelenburg position with the right side up. The dome of the gallbladder was grasped with atraumatic grasper passed through the lateral port and retracted over the dome of the liver. Infundibulum was then grasped with atraumatic grasper through the midclavicular port and retracted to the right lower quadrant. This maneuver exposed Calot's triangle. The peritoneum overlying the gallbladder infundibulum was then incised and cystic duct and artery identified and circumferentially dissected. Galvan catheter was used for cholangiograms. The cholangiogram showed good filling of the common bile duct into the duodenum with no filling defects with a CBD stent in place, good filling of the right and left bile ducts as well. The cystic duct and artery were then doubly clipped and divided close to the gallbladder. The gallbladder then dissected from its peritoneal attachments by electrocautery. Hemostasis was checked and the gallbladder and contained stones were removed using the endoscopic retrieval bag through the umbilical port. The gallbladder is passed off table as specimen. The gallbladder fossa was irrigated with saline and hemostasis obtained. There is no evidence of bleeding from the gallbladder fossa or cystic artery leakage of bile from the cystic duct stump. Secondary trochars removed under direct vision. No bleeding was noted the trocar sites. The laparoscope was withdrawn and umbilical trocar removed. The abdomen was allowed to collapse. The fascia of the 12 mm trocar was closed with a [id number] 0 Vicryl suture. The skin was closed with sutures of 4-0 Monocryl and Steri-Strips. The patient was extubated. The patient tolerated procedure well and was taken to the postanesthesia care unit in stable condition. Surgical Findings: Normal cholangiograms [place] Worker tools programmer: Yes Health Technician Hearing: Maye Mitchell Tasks completed by first aid director: Opening closing and Retracting Complications Complications: No 04/24/24 4264 Cosigner Signature (if applicable): CC: Dr. Kanika Mike DO; Dr. Opal Whitehead MD Signed Normal [facility] Surgery Specimen Level IIIon 04-24-2024 Surgery Specimen Level III ---- Patient Age/Sex Location Account Attending Physician ---- CHELSEY BELTRAN 73/F [facility] [place] [id number] Dr. Opal Whitehead MD ---- Specimen: [id number] Received: 04/25/24 Status: PORFIRIO Manjarrez Num: [id number] Spec Type: GEOVANNA Seaman Dr: Dr. Opal Whitehead MD HEADER OPERATION: Laparoscopic, cholecystectomy with IOC PRE-OP DIAGNOSIS: Elevated liver enzymes, cholelithiasis, choledocholithiasis TISSUE SUBMITTED: Gallbladder ---- MICROSCOPIC DIAGNOSIS Gallbladder, cholecystectomy: Acute and chronic cholecystitis and cholelithiasis. IQRA. 04/26/2024 MICROSCOPIC DESCRIPTION Slides are reviewed. GROSS DESCRIPTION Received is one container labeled with the patient's name and designated "gallbladder." The specimen consists of a gallbladder measuring 8.0 cm in length and up to 3.5 cm in diameter. The external surface is pink-sage, smooth and glistening for the most part. Focally it is granular, hemorrhagic and contains cautery artifact. The gallbladder contains brown mucoid bile and five variable sized brown stones measuring in aggregate 1.5 x 1.5 x 0.5 cm and 0.5 to 0.6cm in greatest dimension. The mucosa is bile-stained and without any mass lesions. The gallbladder wall measures up to 0.5 cm in thickness. Increased amount of subserosal fat is noted. Shoe Dyer sections from the gallbladder and the cystic duct are submitted in one cassette. / SJ:mr 04/25/2024 TC:2 CPT: 98046 ---- Patient Age/Sex Location Account Attending Physician ---- CHELSEY BELTRAN 73/F [facility] [place] [id number] Dr. Opal Whitehead MD ---- Signed (signature on file) Dr. Vince Main MD 04/26/24 1412 ---- Normal [facility] Comment on above: Performed By: #### P SUIII #### [facility] [place], [address] Absolute lymphocyte countOrd ered By: Kanika Mike on 09-06-2023 Lymphocytes Auto (Unsp spec) [#/Vol] 1.69 10*3/uL 0.83-4.51 [facility] Albumin Elph [Mass/Vol]Order ed By: Kanika Mike on 09-06-2023 Albumin [Mass/Vol] 3.6 g/dL 2.9-4.4 [facility] Automated lymphocyte count a s percentage of total leukocytesOrdered By: Kanika Mike on 09-06-2023 Lymphocytes/100 WBC Auto (Unsp spec) 22.8 % 19-41 [facility] Basophil percentageOrdered B y: Kanika Mike on 09-06-2023 Basophils/100 WBC (Bld) 0.8 % 0-1 [facility] Bilirubin [Mass/Vol] 0.70 mg/dL 0.20-1.00 [facility] Comment on above: For patients on eltr ombopag therapy, use of Dimension Carey TBIL is not recommended. Chloride [Moles/Vol] 106 mmol/L 98-107 [facility] Cholesterol [Mass/Vol] 141 mg/dL <200 [facility] Comment on above: <200 mg/dL Desirable 200-240 mg/dL Borderline >240 mg/dL High Risk Eosinophils/100 WBC (Bld) 2.0 % 0-5 [facility] Glucose [Mass/Vol] 94 mg/dL 74-106 [facility] Hemoglobin (Bld) [Mass/Vol] 10.8 g/dL 12.0-15.0 [facility] Monocytes/100 WBC (Bld) 8.5 % 0-10 [facility] Neutrophils (Bld) [#/Vol] 4.9 10*3/uL 2.0-7.7 [facility] Neutrophils/100 WBC (Bld) 65.6 % 47-70 [facility] Potassium [Moles/Vol] 4.1 mmol/L 3.5-5.1 [facility] Protein [Mass/Vol] 6.8 g/dL 6.4-8.2 [facility] Sodium [Moles/Vol] 139 mmol/L 136-145 [facility] Triglyceride [Mass/Vol] 92 mg/dL <199 [facility] Comment on above: The drugs N-Acetylcy steine and Metamizole may falsely depress this assay.Serum Triglycerides Reference Interval Normal <150 mg/dL Borderline high 150 - 199 mg/dL High 200 - 499 mg/dL Very High > or = 500 mg/dL WBC (Bld) [#/Vol] 7.4 10*3/uL 4.4-11.0 [facility] Determination of erythrocyte mean corpuscular volume (MCV)Ordered By: Kanika Mike on 09-06-2023 MCV (RBC) [Entitic vol] 86.5 fL 81-99 [facility] Erythrocyte distribution wid th ratioOrdered By: Kanika Mike on 09-06-2023 Erythrocyte distribution width (RBC) [Ratio] 14.2 % 11.6-14.6 [facility] Erythrocyte distribution wid th standard deviationOrdered By: Kanika Mike on 09-06-2023 Erythrocyte distribution width (RBC) [Entitic vol] 44.6 fL 35.1-43.9 [facility] Erythrocyte sedimentation ra teOrdered By: Kanika Mike on 09-06-2023 ESR (Bld) [Velocity] 11 mm/h 0-30 [facility] Hematocrit Auto (Bld) [Volum e fraction]Ordered By: Kanika Mike on 09-06-2023 Hematocrit (Bld) [Volume fraction] 35.8 % 37-47 [facility] Immature granulocytes/100 WB C Auto (Bld)Ordered By: Kanika Mike on 09-06-2023 Immature granulocytes/100 WBC (Bld) 0.300 % 0.0-0.9 [facility] Comment on above: IG% - Immature Granu locytes (promyelocytes, myelocytes and metamyelocytes) > 1% indicates that a LEFT SHIFT is Present. Laboratory - Chemistry and C hemistry - challengeOrdered By: Kanika Mike on 09-06-2023 Albumin/Globulin [Mass ratio] 1.0 {ratio} 0.9-2.4 [facility] ALP [Catalytic activity/Vol] 101 U/L 45-117 [facility] ALT [Catalytic activity/Vol] 25 U/L 13-56 [facility] Cholesterol in HDL [Mass/Vol] 74 mg/dL >40 [facility] Comment on above: The drugs N-Acetylcy steine and Metamizole may falsely depress this assay. Reference Range HDL <40 mg/dL Low HDL Cholesterol HDL >or= 60 mg/dL High HDL Cholesterol Cholesterol in LDL [Mass/Vol] 49 mg/dL 0-130 [facility] CO2 [Moles/Vol] 26.0 mmol/L 21.0-32.0 [facility] Cobalamin (Vitamin B12) [Mass/Vol] 258 pg/mL 211-911 [facility] Globulin (S) [Mass/Vol] 3.4 g/dL 2.2-4.2 [facility] Urea nitrogen/Creatinine [Mass ratio] 23.5 mg/mg 10-20 [facility] - Hematology and Cell countsOrdered By: Kanika Mike on 09-06-2023 MCH (RBC) [Entitic mass] 26.1 pg 27.0-32.0 [facility] MCHC (RBC) [Mass/Vol] 30.2 g/dL 32-36 [facility] Nucleated RBC/100 WBC (Bld) [Ratio] 0 % 0-5 [facility] Platelet mean volume (Bld) [Entitic vol] 10.8 fL 6.2-12.0 [facility] Platelets (Bld) [#/Vol] 203 10*3/uL 150-450 [facility] No Panel InformationOrdered By: Kanika Mike on 09-06-2023 Addendum Document Comment . [facility] Comment on above: The SPE pattern appe ars unremarkable. Evidence ofmonoclonal protein is not apparent.Performed at: [facility] [id number] Director: Corky Damon PhD, Phone: [phone] Urpms-9-Aueuylxdr 0.3 g/dL 0.0-0.4 [facility] Efczp-6-Defalxwqs 0.7 g/dL 0.4-1.0 [facility] C-Reactive Protein Extended Range < 2.90 mg/L 0.0-3.0 [facility] Comment on above: C-Reactive Protein ( CRP) provides useful information for thediagnosis, therapy and monitoring of inflammatory processesand associated diseases. For the evaluation of Relative Riskfor Cardiovascular Disease, a High Sensitivity CRP (HSCRP)should be ordered. Estimated GFR (MDRD) Amer 109 mL/min >60 [facility] Comment on above: GFR Calc Estimated GFR (MDRD) Non-Af Amer 90 mL/min >60 [facility] Comment on above: Non- GFR Calc Gamma Globulins 0.9 g/dL 0.4-1.8 [facility] Vitamin D 25-Hydroxy 38.4 ng/mL [facility] Comment on above: Vitamin D 25(OH) Sta tus Range Deficiency <20 ng/mL (50nmol/L) Insufficiency 20 - 30 ng/mL (50 - 75 nmol/L) Sufficiency 30 - 100 ng/mL (75 - 250 nmol/L) Toxicity >100 ng/mL (>250 nmol/L) VLDL Cholesterol 18 mg/dL 5-40 [facility] Protein Fractions Elph [Inte rp]Ordered By: Kanika Mike on 09-06-2023 Protein Fractions [Interp] Comment . [facility] Comment on above: Protein electrophore sis scan will follow via computer,mail, or flight attendant/inflight manager delivery. RBC Auto (Bld) [#/Vol]Ordere d By: Kanika Mike on 09-06-2023 RBC (Bld) [#/Vol] 4.14 10*6/uL 4.2-5.4 [facility] Serum albumin to globulin ra khoa by protein electrophoresisOrdered By: Kanika Mike on 09-06-2023 Albumin/Globulin Elph [Mass ratio] 1.4 0.7-1.7 [facility] Serum globulin measurement ( mass/volume)Ordered By: Kanika Mike on 09-06-2023 Globulin (S) [Mass/Vol] 2.6 g/dL 2.2-3.9 [facility] Serum or plasma beta globuli n measurement by electrophoresis (mass/volume)Ordered By: Kanika Mike on 09-06-2023 Beta globulin Elph [Mass/Vol] 0.8 g/dL 0.7-1.3 [facility] Serum or plasma calcium huma urement (mass/volume)Ordered By: Kanika Mike on 09-06-2023 Calcium [Mass/Vol] 9.0 mg/dL 8.5-10.1 [facility] Serum or plasma creatinine m easurement (mass/volume)Ordered By: Kanika Mike on 09-06-2023 Creatinine [Mass/Vol] 0.68 mg/dL 0.55-1.02 [facility] Comment on above: The validity of the calculated GFR & GFRAA in patients over 70 years has not been determined. Clinical correlation is essential. Serum or plasma protein mono clonal measurement by electrophoresis (mass/volume)Ordered By: Kanika Mike on 09-06-2023 Protein.monoclonal Elph [Mass/Vol] Not Observed g/dL Not Observed [facility] Serum or plasma thyroid stim ulating hormone (TSH) measurement (units/volume)Ordered By: Kanika Mike on 09-06-2023 TSH Qn 2.83 uIU/mL 0.358-3.74 [facility] Serum or plasma urea nitroge n measurement (mass/volume)Ordered By: Kanika Mike on 09-06-2023 Urea nitrogen [Mass/Vol] 16 mg/dL 7-18 [facility] Thin prep Papanicolaou smear with manual screeningOrdered By: Kanika Mike on 09-06-2023 Thin prep Papanicolaou smear with manual screening 3.4 g/dL 3.2-5.0 [facility] Thin prep Papanicolaou smear with manual screening 18 U/L 15-37 [facility] Thin prep Papanicolaou smear with manual screening 7 5-15 [facility] Total protein bloodOrdered B y: Kanika Mike on 09-06-2023 Protein [Mass/Vol] 6.2 g/dL 6.0-8.5 [facility] Whole blood hemoglobin A1c/t otal hemoglobin ratio (mass fraction)Ordered By: Kanika Mike on 09-06-2023 HbA1c (Bld) [Mass fraction] 5.5 % 3.8-5.6 [facility] Comment on above: Normal < 5.7 % Predi abetic 5.7 - 6.4 % Diabetic >or= 6.5 % Please note range changes. Absolute lymphocyte countOrd ered By: ED PROVIDER on 08-11-2022 Lymphocytes Auto (Unsp spec) [#/Vol] 0.93 10*3/uL 0.83-4.51 [facility] Basophil percentageOrdered B y: ED PROVIDER on 08-11-2022 Basophils/100 WBC (Bld) 0.3 % 0-1 [facility] Chloride [Moles/Vol] 94 mmol/L 98-107 [facility] Eosinophils/100 WBC (Bld) 1.3 % 0-5 [facility] Glucose [Mass/Vol] 93 mg/dL 74-106 [facility] Neutrophils (Bld) [#/Vol] 2.4 10*3/uL 2.0-7.7 [facility] Neutrophils/100 WBC (Bld) 61.0 % 47-70 [facility] Potassium [Moles/Vol] 2.8 mmol/L 3.5-5.1 [facility] Sodium [Moles/Vol] 137 mmol/L 136-145 [facility] WBC (Bld) [#/Vol] 3.9 10*3/uL 4.4-11.0 [facility] Blood erythrocytes count (nu mber/volume)Ordered By: ED PROVIDER on 08-11-2022 RBC (Bld) [#/Vol] 4.53 10*6/uL 4.2-5.4 [facility] Blood hemoglobin measurement (mass/volume)Ordered By: ED PROVIDER on 08-11-2022 Hemoglobin (Bld) [Mass/Vol] 11.7 g/dL 12.0-15.0 [facility] Blood lymphocytes/100 leukoc ytesOrdered By: ED PROVIDER on 08-11-2022 Lymphocytes/100 WBC (Bld) 23.7 % 19-41 [facility] Blood monocytes/100 leukocyt esOrdered By: ED PROVIDER on 08-11-2022 Monocytes/100 WBC (Bld) 13.2 % 0-10 [facility] Blood platelet mean volumeOr dered By: ED PROVIDER on 08-11-2022 Platelet mean volume (Bld) [Entitic vol] 9.6 fL 6.2-12.0 [facility] Determination of erythrocyte mean corpuscular volume (MCV)Ordered By: ED PROVIDER on 08-11-2022 MCV (RBC) [Entitic vol] 81.9 fL 81-99 [facility] Hematocrit Auto (Bld) [Volum e fraction]Ordered By: ED PROVIDER on 08-11-2022 Hematocrit (Bld) [Volume fraction] 37.1 % 37-47 [facility] Influenza virus A and B and SARS-CoV-2 (COVID-19) Ag panel - Upper respiratory specimOrdered By: Dr. Infante on 08-11-2022 SARS-CoV-2 & FLU Antigen (Rapid) SARS-CoV-2 (COVID 19) [facility] - Chemistry and C hemistry - challengeOrdered By: ED PROVIDER on 08-11-2022 CO2 [Moles/Vol] 24.0 mmol/L 21.0-32.0 [facility] Urea nitrogen/Creatinine [Mass ratio] 8.2 mg/mg 10-20 [facility] - Hematology and Cell countsOrdered By: ED PROVIDER on 08-11-2022 Erythrocyte distribution width (RBC) [Entitic vol] 41.0 fL 35.1-43.9 [facility] Erythrocyte distribution width (RBC) [Ratio] 13.7 % 11.6-14.6 [facility] Immature granulocytes/100 WBC (Bld) 0.500 % 0.0-0.9 [facility] Comment on above: IG% - Immature Granu locytes (promyelocytes, myelocytes and metamyelocytes) > 1% indicates that a LEFT SHIFT is Present. MCH (RBC) [Entitic mass] 25.8 pg 27.0-32.0 [facility] Nucleated RBC/100 WBC (Bld) [Ratio] 0 % 0-5 [facility] MCHC Auto (RBC) [Mass/Vol]Or dered By: ED PROVIDER on 08-11-2022 MCHC (RBC) [Mass/Vol] 31.5 g/dL 32-36 [facility] No Panel InformationOrdered By: ED PROVIDER on 08-11-2022 Estimated Creatinine Clearance Calc 36.53 ml/min [facility] Estimated GFR (MDRD) Amer 101 mL/min >60 [facility] Comment on above: GFR Calc Estimated GFR (MDRD) Non-Af Amer 83 mL/min >60 [facility] Comment on above: Non- GFR Calc Platelets bldOrdered By: ED PROVIDER on 08-11-2022 Platelets (Bld) [#/Vol] 193 10*3/uL 150-450 [facility] Serum or plasma calcium huma urement (mass/volume)Ordered By: ED PROVIDER on 08-11-2022 Calcium [Mass/Vol] 9.0 mg/dL 8.5-10.1 [facility] Serum or plasma creatinine m easurement (mass/volume)Ordered By: ED PROVIDER on 08-11-2022 Creatinine [Mass/Vol] 0.73 mg/dL 0.55-1.02 [facility] Comment on above: The validity of the calculated GFR & GFRAA in patients over 70 years has not been determined. Clinical correlation is essential. Serum or plasma urea nitroge n measurement (mass/volume)Ordered By: ED PROVIDER on 08-11-2022 Urea nitrogen [Mass/Vol] 6 mg/dL 7-18 [facility] Thin prep Papanicolaou smear with manual screeningOrdered By: ED PROVIDER on 08-11-2022 Thin prep Papanicolaou smear with manual screening 19 5-15 [facility] Basophil percentageon 2021 Cholesterol [Mass/Vol] 123 mg/dL <200 [facility] Work Phone: Comment on above: <200 mg/dL Desirable 200-240 mg/dL Borderline >240 mg/dL High Risk Triglyceride [Mass/Vol] 72 mg/dL <199 [facility] Work Phone: Comment on above: The drugs N-Acetylcy steine and Metamizole may falsely depress this assay.Serum Triglycerides Reference Interval Normal <150 mg/dL Borderline high 150 - 199 mg/dL High 200 - 499 mg/dL Very High > or = 500 mg/dL Serum or plasma cholesterol in HDL measurement (mass/volume)on 04-05-2022 Cholesterol in HDL [Mass/Vol] 78 mg/dL >40 [facility] Work Phone: Comment on above: The drugs N-Acetylcy steine and Metamizole may falsely depress this assay. Reference Range HDL <40 mg/dL Low HDL Cholesterol HDL >or= 60 mg/dL High HDL Cholesterol Serum or plasma cholesterol in VLDL measurement (mass/volume)on 04-05-2022 Cholesterol in VLDL [Mass/Vol] 14 mg/dL 5-40 [facility] Work Phone: Serum or plasma low density lipoprotein (LDL) cholesterol measurement (mass/volume)on 04-05-2022 Cholesterol in LDL [Mass/Vol] 31 mg/dL 0-130 [facility] Work Phone: Absolute lymphocyte counton 03-22-2022 Lymphocytes Auto (Unsp spec) [#/Vol] 2.50 10*3/uL 0.83-4.51 [facility] Work Phone: Basophil percentageon 2021 Basophils/100 WBC (Bld) 0.4 % 0-1 [facility] Work Phone: Bilirubin [Mass/Vol] 0.50 mg/dL 0.20-1.00 [facility] Work Phone: Comment on above: For patients on eltr ombopag therapy, use of Dimension Carey TBIL is not recommended. Chloride [Moles/Vol] 106 mmol/L 98-107 [facility] Work Phone: Eosinophils/100 WBC (Bld) 1.3 % 0-5 [facility] Work Phone: [phone] Glucose [Mass/Vol] 100 mg/dL 74-106 [facility] Work Phone: Comment on above: Fasting Glucose resu lt from 100 to 125 mg/dL suggests IMPAIRED HOMEOSTASIS per A.D.A. criteria. Neutrophils (Bld) [#/Vol] 8.7 10*3/uL 2.0-7.7 [facility] Work Phone: [phone] Neutrophils/100 WBC (Bld) 68.8 % 47-70 [facility] Work Phone: [phone] Potassium [Moles/Vol] 3.5 mmol/L 3.5-5.1 [facility] Work Phone: [phone] Protein [Mass/Vol] 6.4 g/dL 6.4-8.2 [facility] Work Phone: [phone] Sodium [Moles/Vol] 142 mmol/L 136-145 [facility] Work Phone: [phone] WBC (Bld) [#/Vol] 12.7 10*3/uL 4.4-11.0 [facility] Work Phone: Blood erythrocytes count (nu mber/volume)on 03-22-2022 RBC (Bld) [#/Vol] 4.18 10*6/uL 4.2-5.4 [facility] Work Phone: [phone] Blood hemoglobin measurement (mass/volume)on 03-22-2022 Hemoglobin (Bld) [Mass/Vol] 11.1 g/dL 12.0-15.0 [facility] Work Phone: [phone] Blood lymphocytes/100 leukoc yteson 03-22-2022 Lymphocytes/100 WBC (Bld) 19.7 % 19-41 [facility] Work Phone: [phone] Blood monocytes/100 leukocyt eson 03-22-2022 Monocytes/100 WBC (Bld) 9.1 % 0-10 [facility] Work Phone: Blood platelet mean volumeon 03-22-2022 Platelet mean volume (Bld) [Entitic vol] 10.3 fL 6.2-12.0 [facility] Work Phone: Determination of erythrocyte mean corpuscular volume (MCV)on 03-22-2022 MCV (RBC) [Entitic vol] 86.1 fL 81-99 [facility] Work Phone: Erythrocyte sedimentation ra ebony 03-22-2022 ESR (Bld) [Velocity] 22 mm/h 0-30 [facility] Work Phone: Hematocrit Auto (Bld) [Volum e fraction]on 03-22-2022 Hematocrit (Bld) [Volume fraction] 36.0 % 37-47 [facility] Work Phone: Laboratory - Chemistry and C hemistry - challengeon 03-22-2022 ALP [Catalytic activity/Vol] 85 U/L 45-117 [facility] Work Phone: ALT [Catalytic activity/Vol] 20 U/L 13-56 [facility] Work Phone: CO2 [Moles/Vol] 30.0 mmol/L 21.0-32.0 [facility] Work Phone: Globulin (S) [Mass/Vol] 3.3 g/dL 2.2-4.2 [facility] Work Phone: Urea nitrogen/Creatinine [Mass ratio] 22.2 mg/mg 10-20 [facility] Work Phone: Laboratory - Hematology and Cell countson 03-22-2022 Erythrocyte distribution width (RBC) [Entitic vol] 45.4 fL 35.1-43.9 [facility] Work Phone: Erythrocyte distribution width (RBC) [Ratio] 14.6 % 11.6-14.6 [facility] Work Phone: Immature granulocytes/100 WBC (Bld) 0.700 % 0.0-0.9 [facility] Work Phone: Comment on above: IG% - Immature Granu locytes (promyelocytes, myelocytes and metamyelocytes) > 1% indicates that a LEFT SHIFT is Present. MCH (RBC) [Entitic mass] 26.6 pg 27.0-32.0 [facility] Work Phone: Nucleated RBC/100 WBC (Bld) [Ratio] 0 % 0-5 [facility] Work Phone: MCHC Auto (RBC) [Mass/Vol]on 03-22-2022 MCHC (RBC) [Mass/Vol] 30.8 g/dL 32-36 [facility] Work Phone: No Panel Informationon 03-22 Estimated GFR (MDRD) Amer 84 mL/min >60 [facility] Work Phone: Comment on above: GFR Calc Estimated GFR (MDRD) Non-Af Amer 70 mL/min >60 [facility] Work Phone: Comment on above: Non- GFR Calc Thyroid Stimulating Hormone (TSH) 3.00 uIU/mL 0.358-3.74 [facility] Work Phone: Platelets bldon 03-22-2022 Platelets (Bld) [#/Vol] 249 10*3/uL 150-450 [facility] Work Phone: Serum or plasma albumin huma urement (mass/volume)on 03-22-2022 Albumin [Mass/Vol] 3.1 g/dL 3.2-5.0 [facility] Work Phone: Serum or plasma albumin/glob ulin mass ratioon 03-22-2022 Albumin/Globulin [Mass ratio] 0.9 {ratio} 0.9-2.4 [facility] Work Phone: Serum or plasma calcium huma urement (mass/volume)on 03-22-2022 Calcium [Mass/Vol] 9.2 mg/dL 8.5-10.1 [facility] Work Phone: Serum or plasma creatinine m easurement (mass/volume)on 03-22-2022 Creatinine [Mass/Vol] 0.85 mg/dL 0.55-1.02 [facility] Work Phone: Comment on above: The validity of the calculated GFR & GFRAA in patients over 70 years has not been determined. Clinical correlation is essential. Serum or plasma urea nitroge n measurement (mass/volume)on 03-22-2022 Urea nitrogen [Mass/Vol] 19 mg/dL 7-18 [facility] Work Phone: Thin prep Papanicolaou smear with manual screeningon 03-22-2022 Thin prep Papanicolaou smear with manual screening 10 U/L 15-37 [facility] Work Phone: Thin prep Papanicolaou smear with manual screening 6 5-15 [facility] Work Phone: BMPon 11-20-2021 Anion gap [Moles/Vol] 5 mmol/L Normal 5-16 [facility] Comment on above: Order Comment: Campu s: M Performed By: #### L [id number], [id number] #### [facility] [address] [place] [id number] Calcium [Mass/Vol] 9.7 mg/dL Normal 8.5-10.5 [facility] Comment on above: Order Comment: Campu s: M Result Comment: NOTE NEW NORMAL RANGE DUE TO REAGENT CHANGE Performed By: #### L [id number], [id number] #### [facility] [address] [place] [address] Chloride [Moles/Vol] 107 mmol/L Normal 98-107 [facility] Comment on above: Order Comment: Campu s: M Performed By: #### L [id number], [id number] #### [facility] [place] [address] CO2 [Moles/Vol] 26.0 mmol/L Normal 21-32 [facility] Comment on above: Order Comment: Campu s: M Performed By: #### L [id number], [id number] #### [facility] [address] [place] [address] Creatinine [Mass/Vol] 0.66 mg/dL Normal 0.510- 0.95 0 [facility] Comment on above: Order Comment: Campu s: M Result Comment: Emma ents receiving either N-Acetylcysteine (NAC) or Metamizole prior to venipuncture, may have falsely depressed results. Performed By: #### L [id number], [id number] #### [facility] [address] [place] [address] Glucose [Mass/Vol] 112 mg/dL High 70-100 [facility] Comment on above: Order Comment: Campu s: M Result Comment: 70-1 00- Normal Fasting; 100-125 Impaired Fasting; greater than 126 on more than one result- Diabetes. ADA guidelines. Results may be falsely elevated after the administration of Sulfapyridine. Results may be falsely depressed after the administration of Sulfasalazine. Performed By: #### L [id number], [id number] #### [facility] [address] [place] [address] Potassium [Moles/Vol] 3.5 mmol/L Normal 3.5-5.1 [facility] Comment on above: Order Comment: Campu s: M Performed By: #### L [id number], [id number] #### [facility] [address] [place] [address] Sodium [Moles/Vol] 138 mmol/L Normal 136-145 [facility] Comment on above: Order Comment: Campu s: M Performed By: #### L [id number], [id number] #### [facility] [address] [place] [address] Urea nitrogen [Mass/Vol] 18 mg/dL Normal 7-26 [facility] Comment on above: Order Comment: Campu s: M Performed By: #### L [id number], L500.33756 #### [facility] [address] [place] [address] Urea nitrogen/Creatinine [Mass ratio] 27 mg/mg High 15-24 [facility] Comment on above: Order Comment: Campu s: M Performed By: #### L [id number], L500.79069 #### [facility] [address] [place] [address] CBCon 11-20-2021 Erythrocyte distribution width (RBC) [Ratio] 15.5 % High 11-14.5 [facility] Comment on above: Order Comment: Campu s: M Performed By: #### L [id number] #### [facility] [address] [place] [address] Hematocrit (Bld) [Volume fraction] 36.3 % Normal 35.0-47.0 [facility] Comment on above: Order Comment: Campu s: M Performed By: #### L [id number] #### [facility] [address] [place], [place] [id number] Hemoglobin (Bld) [Mass/Vol] 11.8 g/dL Normal 11.5-15.5 [facility] Comment on above: Order Comment: Campu s: M Performed By: #### L [id number] #### [facility] [address] [place], [place] [id number] MCHC (RBC) [Mass/Vol] 32.5 g/dL Normal 32.0-36.0 [facility] Comment on above: Order Comment: Campu s: M Performed By: #### L [id number] #### [facility] [address] [place], [place] [id number] MCV (RBC) [Entitic vol] 90.5 fL Normal 80.0-99.0 [facility] Comment on above: Order Comment: Campu s: M Performed By: #### L [id number] #### [facility] [address] [place] [address] Nucleated RBC/100 WBC (Bld) [Ratio] 0.0 % Normal Less than 1 [facility] Comment on above: Order Comment: Campu s: M Performed By: #### L [id number] #### [facility] [address] [place] [address] Platelet mean volume (Bld) [Entitic vol] 9.4 fL Normal 9.4-12.4 [facility] Comment on above: Order Comment: Campu s: M Performed By: #### L [id number] #### [facility] [address] [place] [address] PLT 230 K/CU MM Normal 150-450 [facility] Comment on above: Order Comment: Campu s: M Performed By: #### L [id number] #### [facility] [address] [place] [address] RBC 4.01 M/CU MM Normal 3.90-5.30 [facility] Comment on above: Order Comment: Campu s: M Performed By: #### L [id number] #### [facility] [address] [place] [address] WBC 14.6 K/CUMM High 4.5-11.0 [facility] Comment on above: Order Comment: Campu s: M Performed By: #### L [id number] #### [facility] [address] [place] [address] EKGon 11-20-2021 Electrocardiogram Procedure Date and Time: [...] By:Benito TORRES M.D.FACC Jeffrey DDandT: 11/20/21917 TDandT: [facility] PATIENT NAME: CHELSEY BELTRAN [address] [place] [address] Dr. Nunez MEDICAL REC #: [id number] [place] [address] ADMIT DATE: DISCHARGE DATE: ATTENDING PHY: Layla Holm MD ELECTROCARDIOGRAM REPORT CLB cc: [facility] PATIENT NAME: CHELSEY BELTRAN [address] [place] [address] Dr. Nunez MEDICAL REC #: [id number] [place] [address] ADMIT DATE: DISCHARGE DATE: ATTENDING PHY: Layla Holm MD ELECTROCARDIOGRAM REPORT Normal [facility] GFR ESTon 11-20-2021 IF AMER Greater than 60 Normal [facility] Comment on above: Order Comment: Sylvain s: M Performed By: #### L [id number], [id number] #### [facility] [address] [place] [address] IF non-AFR AMER Greater than 60 Normal [facility] Comment on above: Order Comment: Sanjayu s: M Performed By: #### L [id number], [id number] #### [facility] [address] [place] [address] PTon 11-20-2021 INR Coag (PPP) [Relative time] 1.01 {INR} Normal 0.9-1.1 [facility] Comment on above: Order Comment: Sanjayu s: M Result Comment: Bob mmended PT INR therapeutic range for mcfp and prophylactic therapy is 2.0 - 3.0. For heart valve and shunt patients the range is 2.5 - 3.5. Performed By: #### L [id number] #### [facility] [address] [place] [address] PTS 11.0 SECONDS Normal 9.5-12.0 [facility] Comment on above: Order Comment: Sanjayu s: M Performed By: #### L [id number] #### [facility] [address] [place] [address] XR CHEST PA/APon 09-28-2021 XR CHEST PA/AP [...] on TueSep 28, 2021 3:44:04 PM EDT [facility] Comment on above: Order Comment: Injur y/Trauma or Illness?:Illness/Other How long have you had these symptoms (acute/chronic)?:Acute Reason for exam?:vomitting, near syncope History of cancer?:no Surgeries, chemotherapy, or radiation?:no Type of Exam?:Initial Additional signs and symptoms?:hx of afib Basophil percentageon 2021 Bilirubin [Mass/Vol] 0.70 mg/dL 0.20-1.00 [facility] Work Phone: Comment on above: For patients on eltr ombopag therapy, use of Dimension Carey TBIL is not recommended. Chloride [Moles/Vol] 105 mmol/L 98-107 [facility] Work Phone: Cholesterol [Mass/Vol] 141 mg/dL <200 [facility] Work Phone: Comment on above: <200 mg/dL Desirable 200-240 mg/dL Borderline >240 mg/dL High Risk Glucose [Mass/Vol] 104 mg/dL 74-106 [facility] Work Phone: Comment on above: Fasting Glucose resu lt from 100 to 125 mg/dL suggests IMPAIRED HOMEOSTASIS per A.D.A. criteria. Potassium [Moles/Vol] 3.7 mmol/L 3.5-5.1 [facility] Work Phone: Protein [Mass/Vol] 6.2 g/dL 6.4-8.2 [facility] Work Phone: Sodium [Moles/Vol] 138 mmol/L 136-145 [facility] Work Phone: Triglyceride [Mass/Vol] 84 mg/dL [facility] Work Phone: Comment on above: The drugs N-Acetylcy steine and Metamizole may falsely depress this assay.Serum Triglycerides Reference Interval Normal <150 mg/dL Borderline high 150 - 199 mg/dL High 200 - 499 mg/dL Very High > or = 500 mg/dL Direct bilirubinon 2 Bilirubin.direct [Mass/Vol] 0.17 mg/dL 0.00-0.30 [facility] Work Phone: Laboratory - Chemistry and C hemistry - challengeon 09-09-2021 ALP [Catalytic activity/Vol] 73 U/L 45-117 [facility] Work Phone: ALT [Catalytic activity/Vol] 34 U/L 13-56 [facility] Work Phone: CO2 [Moles/Vol] 27.0 mmol/L 21.0-32.0 [facility] Work Phone: Globulin (S) [Mass/Vol] 3.0 g/dL 2.2-4.2 [facility] Work Phone: Magnesium [Mass/Vol] 2.1 mg/dL 1.6-2.6 [facility] Work Phone: Urea nitrogen/Creatinine [Mass ratio] 30.5 mg/mg 10-20 [facility] Work Phone: No Panel Informationon 09-09 Estimated GFR (MDRD) Amer 97 mL/min >60 [facility] Work Phone: Comment on above: GFR Calc Estimated GFR (MDRD) Non-Af Amer 80 mL/min >60 [facility] Work Phone: Comment on above: Non- GFR Calc Serum or plasma albumin huma urement (mass/volume)on 09-09-2021 Albumin [Mass/Vol] 3.2 g/dL 3.2-5.0 [facility] Work Phone: Serum or plasma calcium huma urement (mass/volume)on 09-09-2021 Calcium [Mass/Vol] 9.0 mg/dL 8.5-10.1 [facility] Work Phone: Serum or plasma cholesterol in HDL measurement (mass/volume)on 09-09-2021 Cholesterol in HDL [Mass/Vol] 84 mg/dL [facility] Work Phone: Comment on above: The drugs N-Acetylcy steine and Metamizole may falsely depress this assay. Reference Range HDL <40 mg/dL Low HDL Cholesterol HDL >or= 60 mg/dL High HDL Cholesterol Serum or plasma cholesterol in VLDL measurement (mass/volume)on 09-09-2021 Cholesterol in VLDL [Mass/Vol] 17 mg/dL 5-40 [facility] Work Phone: Serum or plasma creatinine m easurement (mass/volume)on 09-09-2021 Creatinine [Mass/Vol] 0.76 mg/dL 0.55-1.02 [facility] Work Phone: Comment on above: The validity of the calculated GFR & GFRAA in patients over 70 years has not been determined. Clinical correlation is essential. Serum or plasma low density lipoprotein (LDL) cholesterol measurement (mass/volume)on 09-09-2021 Cholesterol in LDL [Mass/Vol] 40 mg/dL 0-130 [facility] Work Phone: Serum or plasma urea nitroge n measurement (mass/volume)on 09-09-2021 Urea nitrogen [Mass/Vol] 23 mg/dL 7-18 [facility] Work Phone: Thin prep Papanicolaou smear with manual screeningon 09-09-2021 Thin prep Papanicolaou smear with manual screening 11 U/L 15-37 [facility] Work Phone: Thin prep Papanicolaou smear with manual screening 6 5-15 [facility] Work Phone: Absolute lymphocyte counton 08-26-2021 Lymphocytes Auto (Unsp spec) [#/Vol] 2.09 10*3/uL 0.83-4.51 [facility] Work Phone: Basophil percentageon 2021 Basophils/100 WBC (Bld) 0.4 % 0-1 [facility] Work Phone: Chloride [Moles/Vol] 104 mmol/L 98-107 [facility] Work Phone: Eosinophils/100 WBC (Bld) 0.1 % 0-5 [facility] Work Phone: Glucose [Mass/Vol] 136 mg/dL 74-106 [facility] Work Phone: Comment on above: Fasting Glucose resu lt greater than or equal to 126 mg/dL suggests DIABETES MELLITUS per A.D.A. criteria. Neutrophils (Bld) [#/Vol] 11.1 10*3/uL 2.0-7.7 [facility] Work Phone: Neutrophils/100 WBC (Bld) 76.1 % 47-70 [facility] Work Phone: Potassium [Moles/Vol] 4.0 mmol/L 3.5-5.1 [facility] Work Phone: Sodium [Moles/Vol] 138 mmol/L 136-145 [facility] Work Phone: WBC (Bld) [#/Vol] 14.6 10*3/uL 4.4-11.0 [facility] Work Phone: Blood erythrocytes count (nu mber/volume)on 08-26-2021 RBC (Bld) [#/Vol] 4.52 10*6/uL 4.2-5.4 [facility] Work Phone: Blood hemoglobin measurement (mass/volume)on 08-26-2021 Hemoglobin (Bld) [Mass/Vol] 12.7 g/dL 12.0-15.0 [facility] Work Phone: Blood lymphocytes/100 leukoc yteson 08-26-2021 Lymphocytes/100 WBC (Bld) 14.3 % 19-41 [facility] Work Phone: Blood monocytes/100 leukocyt eson 08-26-2021 Monocytes/100 WBC (Bld) 6.1 % 0-10 [facility] Work Phone: Blood platelet mean volumeon 08-26-2021 Platelet mean volume (Bld) [Entitic vol] 9.8 fL 6.2-12.0 [facility] Work Phone: Determination of erythrocyte mean corpuscular volume (MCV)on 08-26-2021 MCV (RBC) [Entitic vol] 88.5 fL 81-99 [facility] Work Phone: Hematocrit Auto (Bld) [Volum e fraction]on 08-26-2021 Hematocrit (Bld) [Volume fraction] 40.0 % 37-47 [facility] Work Phone: Laboratory - Chemistry and C hemistry - challengeon 08-26-2021 CO2 [Moles/Vol] 28.0 mmol/L 21.0-32.0 [facility] Work Phone: Natriuretic peptide B (Bld) [Mass/Vol] 108.1 pg/mL 0-100 [facility] Work Phone: Urea nitrogen/Creatinine [Mass ratio] 27.3 mg/mg 10-20 [facility] Work Phone: Laboratory - Hematology and Cell countson 08-26-2021 Erythrocyte distribution width (RBC) [Entitic vol] 53.1 fL 35.1-43.9 [facility] Work Phone: Erythrocyte distribution width (RBC) [Ratio] 16.6 % 11.6-14.6 [facility] Work Phone: Immature granulocytes/100 WBC (Bld) 3.000 % 0.0-0.9 [facility] Work Phone: Comment on above: IG% - Immature Granu locytes (promyelocytes, myelocytes and metamyelocytes) > 1% indicates that a LEFT SHIFT is Present. MCH (RBC) [Entitic mass] 28.1 pg 27.0-32.0 [facility] Work Phone: Nucleated RBC/100 WBC (Bld) [Ratio] 0 % 0-5 [facility] Work Phone: MCHC Auto (RBC) [Mass/Vol]on 08-26-2021 MCHC (RBC) [Mass/Vol] 31.8 g/dL 32-36 [facility] Work Phone: No Panel Informationon 08-26 Estimated Creatinine Clearance Calc 37.06 ml/min [facility] Work Phone: Estimated GFR (MDRD) Amer 107 mL/min >60 [facility] Work Phone: Comment on above: GFR Calc Estimated GFR (MDRD) Non-Af Amer 88 mL/min >60 [facility] Work Phone: Comment on above: Non- GFR Calc Platelets bldon 08-26-2021 Platelets (Bld) [#/Vol] 221 10*3/uL 150-450 [facility] Work Phone: Serum or plasma calcium huma urement (mass/volume)on 08-26-2021 Calcium [Mass/Vol] 8.8 mg/dL 8.5-10.1 [facility] Work Phone: Serum or plasma creatinine m easurement (mass/volume)on 08-26-2021 Creatinine [Mass/Vol] 0.70 mg/dL 0.55-1.02 [facility] Work Phone: Comment on above: The validity of the calculated GFR & GFRAA in patients over 70 years has not been determined. Clinical correlation is essential. Serum or plasma urea nitroge n measurement (mass/volume)on 08-26-2021 Urea nitrogen [Mass/Vol] 19 mg/dL 7-18 [facility] Work Phone: Thin prep Papanicolaou smear with manual screeningon 08-26-2021 Thin prep Papanicolaou smear with manual screening 6 5-15 [facility] Work Phone: Absolute lymphocyte counton 08-16-2021 Lymphocytes Auto (Unsp spec) [#/Vol] 4.06 10*3/uL 0.83-4.51 [facility] Work Phone: Basophil percentageon 2021 Basophils/100 WBC (Bld) 0.3 % 0-1 [facility] Work Phone: Chloride [Moles/Vol] 108 mmol/L 98-107 [facility] Work Phone: Eosinophils/100 WBC (Bld) 0.6 % 0-5 [facility] Work Phone: Glucose [Mass/Vol] 95 mg/dL 74-106 [facility] Work Phone: Neutrophils (Bld) [#/Vol] 8.6 10*3/uL 2.0-7.7 [facility] Work Phone: Neutrophils/100 WBC (Bld) 61.3 % 47-70 [facility] Work Phone: Potassium [Moles/Vol] 3.4 mmol/L 3.5-5.1 [facility] Work Phone: Sodium [Moles/Vol] 140 mmol/L 136-145 [facility] Work Phone: WBC (Bld) [#/Vol] 14.1 10*3/uL 4.4-11.0 [facility] Work Phone: Blood erythrocytes count (nu mber/volume)on 08-16-2021 RBC (Bld) [#/Vol] 4.55 10*6/uL 4.2-5.4 [facility] Work Phone: Blood hemoglobin measurement (mass/volume)on 08-16-2021 Hemoglobin (Bld) [Mass/Vol] 12.7 g/dL 12.0-15.0 [facility] Work Phone: Blood lymphocytes/100 leukoc yteson 08-16-2021 Lymphocytes/100 WBC (Bld) 28.8 % 19-41 [facility] Work Phone: Blood manual differential co mment interpretation (narrative result)on 08-16-2021 Manual differential comment Dennys (Bld) [Interp] SCANNED [facility] Work Phone: Blood monocytes/100 leukocyt eson 08-16-2021 Monocytes/100 WBC (Bld) 7.3 % 0-10 [facility] Work Phone: Blood platelet mean volumeon 08-16-2021 Platelet mean volume (Bld) [Entitic vol] 10.0 fL 6.2-12.0 [facility] Work Phone: Determination of erythrocyte mean corpuscular volume (MCV)on 02-20-2022 MCV (RBC) [Entitic vol] 87.5 fL 81-99 [facility] Work Phone: Hematocrit Auto (Bld) [Volum e fraction]on 08-16-2021 Hematocrit (Bld) [Volume fraction] 39.8 % 37-47 [facility] Work Phone: Laboratory - Chemistry and C hemistry - challengeon 08-16-2021 CO2 [Moles/Vol] 27.0 mmol/L 21.0-32.0 [facility] Work Phone: Natriuretic peptide B (Bld) [Mass/Vol] 150.5 pg/mL 0-100 [facility] Work Phone: Urea nitrogen/Creatinine [Mass ratio] 28.2 mg/mg 10-20 [facility] Work Phone: Laboratory - Hematology and Cell countson 08-16-2021 Erythrocyte distribution width (RBC) [Entitic vol] 51.8 fL 35.1-43.9 [facility] Work Phone: Erythrocyte distribution width (RBC) [Ratio] 16.3 % 11.6-14.6 [facility] Work Phone: Immature granulocytes/100 WBC (Bld) 1.700 % 0.0-0.9 [facility] Work Phone: Comment on above: IG% - Immature Granu locytes (promyelocytes, myelocytes and metamyelocytes) > 1% indicates that a LEFT SHIFT is Present. MCH (RBC) [Entitic mass] 27.9 pg 27.0-32.0 [facility] Work Phone: Nucleated RBC/100 WBC (Bld) [Ratio] 0 % 0-5 [facility] Work Phone: MCHC Auto (RBC) [Mass/Vol]on 08-16-2021 MCHC (RBC) [Mass/Vol] 31.9 g/dL 32-36 [facility] Work Phone: No Panel Informationon 08-16 Estimated Creatinine Clearance Calc 37.06 ml/min [facility] Work Phone: Estimated GFR (MDRD) Amer 104 mL/min >60 [facility] Work Phone: Comment on above: GFR Calc Estimated GFR (MDRD) Non-Af Amer 86 mL/min >60 [facility] Work Phone: Comment on above: Non- GFR Calc Reactive Lymphocytes [facility]+ [facility] Work Phone: Troponin I High Sensitivity 6 pg/mL 3.0-54.0 [facility] Work Phone: Comment on above: Please Note: New Kelly t Units and Gender Specific Reference Ranges. For more information see Policy Stat Procedure Carey High Sensitivity Troponin (TNIH) and attachments. Platelets bldon 08-16-2021 Platelets (Bld) [#/Vol] 205 10*3/uL 150-450 [facility] Work Phone: Serum or plasma calcium huma urement (mass/volume)on 08-16-2021 Calcium [Mass/Vol] 8.6 mg/dL 8.5-10.1 [facility] Work Phone: Serum or plasma creatinine m easurement (mass/volume)on 08-16-2021 Creatinine [Mass/Vol] 0.71 mg/dL 0.55-1.02 [facility] Work Phone: Comment on above: The validity of the calculated GFR & GFRAA in patients over 70 years has not been determined. Clinical correlation is essential. Serum or plasma urea nitroge n measurement (mass/volume)on 08-16-2021 Urea nitrogen [Mass/Vol] 20 mg/dL 7-18 [facility] Work Phone: Thin prep Papanicolaou smear with manual screeningon 08-16-2021 Thin prep Papanicolaou smear with manual screening 5 5-15 [facility] Work Phone: Absolute lymphocyte counton 08-10-2021 Lymphocytes Auto (Unsp spec) [#/Vol] 2.47 10*3/uL 0.83-4.51 [facility] Work Phone: [phone] Basophil percentageon 2021 Basophils/100 WBC (Bld) 0.2 % 0-1 [facility] Work Phone: [phone] Chloride [Moles/Vol] 107 mmol/L 98-107 [facility] Work Phone: [phone] Eosinophils/100 WBC (Bld) 0.6 % 0-5 [facility] Work Phone: Glucose [Mass/Vol] 110 mg/dL 74-106 [facility] Work Phone: [phone] Comment on above: Fasting Glucose resu lt from 100 to 125 mg/dL suggests IMPAIRED HOMEOSTASIS per A.D.A. criteria. Neutrophils (Bld) [#/Vol] 8.4 10*3/uL 2.0-7.7 [facility] Work Phone: Neutrophils/100 WBC (Bld) 69.3 % 47-70 [facility] Work Phone: Potassium [Moles/Vol] 4.1 mmol/L 3.5-5.1 [facility] Work Phone: Sodium [Moles/Vol] 139 mmol/L 136-145 [facility] Work Phone: WBC (Bld) [#/Vol] 12.1 10*3/uL 4.4-11.0 [facility] Work Phone: Blood erythrocytes count (nu mber/volume)on 08-10-2021 RBC (Bld) [#/Vol] 4.10 10*6/uL 4.2-5.4 [facility] Work Phone: Blood hemoglobin measurement (mass/volume)on 08-10-2021 Hemoglobin (Bld) [Mass/Vol] 11.5 g/dL 12.0-15.0 [facility] Work Phone: Blood lymphocytes/100 leukoc yteson 08-10-2021 Lymphocytes/100 WBC (Bld) 20.4 % 19-41 [facility] Work Phone: Blood monocytes/100 leukocyt eson 08-10-2021 Monocytes/100 WBC (Bld) 7.3 % 0-10 [facility] Work Phone: Blood platelet mean volumeon 08-10-2021 Platelet mean volume (Bld) [Entitic vol] 9.6 fL 6.2-12.0 [facility] Work Phone: Determination of erythrocyte mean corpuscular volume (MCV)on 08-10-2021 MCV (RBC) [Entitic vol] 89.0 fL 81-99 [facility] Work Phone: Hematocrit Auto (Bld) [Volum e fraction]on 08-10-2021 Hematocrit (Bld) [Volume fraction] 36.5 % 37-47 [facility] Work Phone: Laboratory - Chemistry and C hemistry - challengeon 08-10-2021 CO2 [Moles/Vol] 25.0 mmol/L 21.0-32.0 [facility] Work Phone: Urea nitrogen/Creatinine [Mass ratio] 39.0 mg/mg 10-20 [facility] Work Phone: Laboratory - Hematology and Cell countson 08-10-2021 Erythrocyte distribution width (RBC) [Entitic vol] 52.0 fL 35.1-43.9 [facility] Work Phone: Erythrocyte distribution width (RBC) [Ratio] 16.0 % 11.6-14.6 [facility] Work Phone: Immature granulocytes/100 WBC (Bld) 2.200 % 0.0-0.9 [facility] Work Phone: Comment on above: IG% - Immature Granu locytes (promyelocytes, myelocytes and metamyelocytes) > 1% indicates that a LEFT SHIFT is Present. MCH (RBC) [Entitic mass] 28.0 pg 27.0-32.0 [facility] Work Phone: Nucleated RBC/100 WBC (Bld) [Ratio] 0 % 0-5 [facility] Work Phone: MCHC Auto (RBC) [Mass/Vol]on 08-10-2021 MCHC (RBC) [Mass/Vol] 31.5 g/dL 32-36 [facility] Work Phone: No Panel Informationon 08-10 Estimated Creatinine Clearance Calc 37.06 ml/min [facility] Work Phone: Estimated GFR (MDRD) Amer 129 mL/min >60 [facility] Work Phone: Comment on above: GFR Calc Estimated GFR (MDRD) Non-Af Amer 107 mL/min >60 [facility] Work Phone: Comment on above: Non- GFR Calc Platelets bldon 08-10-2021 Platelets (Bld) [#/Vol] 168 10*3/uL 150-450 [facility] Work Phone: Serum or plasma calcium huma urement (mass/volume)on 08-10-2021 Calcium [Mass/Vol] 8.1 mg/dL 8.5-10.1 [facility] Work Phone: Serum or plasma creatinine m easurement (mass/volume)on 08-10-2021 Creatinine [Mass/Vol] 0.59 mg/dL 0.55-1.02 [facility] Work Phone: Comment on above: The validity of the calculated GFR & GFRAA in patients over 70 years has not been determined. Clinical correlation is essential. Serum or plasma urea nitroge n measurement (mass/volume)on 08-10-2021 Urea nitrogen [Mass/Vol] 23 mg/dL 7-18 [facility] Work Phone: Thin prep Papanicolaou smear with manual screeningon 08-10-2021 Thin prep Papanicolaou smear with manual screening 7 5-15 [facility] Work Phone: No Panel Informationon 08-08 Troponin I High Sensitivity 12 pg/mL 3.0-54.0 [facility] Work Phone: Comment on above: Please Note: New Kelly t Units and Gender Specific Reference Ranges. For more information see Policy Stat Procedure Carey High Sensitivity Troponin (TNIH) and attachments. Absolute lymphocyte counton 08-02-2021 Lymphocytes Auto (Unsp spec) [#/Vol] 1.42 10*3/uL 0.83-4.51 [facility] Work Phone: Basophil percentageon 2021 Basophils/100 WBC (Bld) 0.2 % 0-1 [facility] Work Phone: Chloride [Moles/Vol] 106 mmol/L 98-107 [facility] Work Phone: Eosinophils/100 WBC (Bld) 0.3 % 0-5 [facility] Work Phone: Glucose [Mass/Vol] 142 mg/dL 74-106 [facility] Work Phone: Comment on above: Fasting Glucose resu lt greater than or equal to 126 mg/dL suggests DIABETES MELLITUS per A.D.A. criteria. Neutrophils (Bld) [#/Vol] 10.6 10*3/uL 2.0-7.7 [facility] Work Phone: Neutrophils/100 WBC (Bld) 80.4 % 47-70 [facility] Work Phone: Potassium [Moles/Vol] 3.8 mmol/L 3.5-5.1 [facility] Work Phone: Comment on above: Moderate Hemolysis, Result may be falsely increased. Sodium [Moles/Vol] 137 mmol/L 136-145 [facility] Work Phone: WBC (Bld) [#/Vol] 13.2 10*3/uL 4.4-11.0 [facility] Work Phone: Blood erythrocytes count (nu mber/volume)on 08-02-2021 RBC (Bld) [#/Vol] 4.57 10*6/uL 4.2-5.4 [facility] Work Phone: Blood hemoglobin measurement (mass/volume)on 08-02-2021 Hemoglobin (Bld) [Mass/Vol] 13.2 g/dL 12.0-15.0 [facility] Work Phone: Blood lymphocytes/100 leukoc yteson 08-02-2021 Lymphocytes/100 WBC (Bld) 10.8 % 19-41 [facility] Work Phone: Blood monocytes/100 leukocyt eson 08-02-2021 Monocytes/100 WBC (Bld) 7.3 % 0-10 [facility] [facility] Work Phone: Blood platelet mean volumeon 08-02-2021 Platelet mean volume (Bld) [Entitic vol] 9.9 fL 6.2-12.0 [facility] Work Phone: Determination of erythrocyte mean corpuscular volume (MCV)on 08-02-2021 MCV (RBC) [Entitic vol] 85.1 fL 81-99 [facility] Work Phone: Hematocrit Auto (Bld) [Volum e fraction]on 08-02-2021 Hematocrit (Bld) [Volume fraction] 38.9 % 37-47 [facility] Work Phone: Laboratory - Chemistry and C hemistry - challengeon 08-02-2021 CO2 [Moles/Vol] 27.0 mmol/L 21.0-32.0 [facility] Work Phone: Urea nitrogen/Creatinine [Mass ratio] 28.8 mg/mg 10-20 [facility] Work Phone: Laboratory - Hematology and Cell countson 08-02-2021 Erythrocyte distribution width (RBC) [Entitic vol] 48.5 fL 35.1-43.9 [facility] Work Phone: Erythrocyte distribution width (RBC) [Ratio] 15.9 % 11.6-14.6 [facility] Work Phone: Immature granulocytes/100 WBC (Bld) 1.000 % 0.0-0.9 [facility] Work Phone: Comment on above: IG% - Immature Granu locytes (promyelocytes, myelocytes and metamyelocytes) > 1% indicates that a LEFT SHIFT is Present. MCH (RBC) [Entitic mass] 28.9 pg 27.0-32.0 [facility] Work Phone: Nucleated RBC/100 WBC (Bld) [Ratio] 0 % 0-5 [facility] Work Phone: MCHC Auto (RBC) [Mass/Vol]on 08-02-2021 MCHC (RBC) [Mass/Vol] 33.9 g/dL 32-36 [facility] Work Phone: No Panel Informationon 08-02 Estimated Creatinine Clearance Calc 71.31 ml/min [facility] Work Phone: Estimated GFR (MDRD) Amer 101 mL/min >60 [facility] Work Phone: Comment on above: GFR Calc Estimated GFR (MDRD) Non-Af Amer 84 mL/min >60 [facility] Work Phone: Comment on above: Non- GFR Calc Thyroid Stimulating Hormone (TSH) 1.88 uIU/mL 0.358-3.74 [facility] Work Phone: Troponin I High Sensitivity 6 pg/mL 3.0-54.0 [facility] Work Phone: Comment on above: Please Note: New Kelly t Units and Gender Specific Reference Ranges. For more information see Policy Stat Procedure Carey High Sensitivity Troponin (TNIH) and attachments. Platelets bldon 08-02-2021 Platelets (Bld) [#/Vol] 244 10*3/uL 150-450 [facility] Work Phone: Serum or plasma calcium huma urement (mass/volume)on 08-02-2021 Calcium [Mass/Vol] 8.6 mg/dL 8.5-10.1 [facility] Work Phone: Serum or plasma creatinine m easurement (mass/volume)on 08-02-2021 Creatinine [Mass/Vol] 0.73 mg/dL 0.55-1.02 [facility] Work Phone: Comment on above: The validity of the calculated GFR & GFRAA in patients over 70 years has not been determined. Clinical correlation is essential. Serum or plasma urea nitroge n measurement (mass/volume)on 08-02-2021 Urea nitrogen [Mass/Vol] 21 mg/dL 7-18 [facility] Work Phone: Thin prep Papanicolaou smear with manual screeningon 08-02-2021 Thin prep Papanicolaou smear with manual screening 4 5-15 [facility] Work Phone: Absolute lymphocyte counton 06-30-2021 Lymphocytes Auto (Unsp spec) [#/Vol] 1.64 10*3/uL 0.83-4.51 [facility] Work Phone: Basophil percentageon 2021 Basophils/100 WBC (Bld) 0.4 % 0-1 [facility] Work Phone: Chloride [Moles/Vol] 106 mmol/L 98-107 [facility] Work Phone: Eosinophils/100 WBC (Bld) 0.7 % 0-5 [facility] Work Phone: Glucose [Mass/Vol] 124 mg/dL 74-106 [facility] Work Phone: Comment on above: Fasting Glucose resu lt from 100 to 125 mg/dL suggests IMPAIRED HOMEOSTASIS per A.D.A. criteria.Please note revised GLUCOSE reference range effective 2017. Neutrophils (Bld) [#/Vol] 5.8 10*3/uL 2.0-7.7 [facility] Work Phone: Neutrophils/100 WBC (Bld) 71.9 % 47-70 [facility] Work Phone: Potassium [Moles/Vol] 3.7 mmol/L 3.5-5.1 [facility] Work Phone: Sodium [Moles/Vol] 140 mmol/L 136-145 [facility]: WBC (Bld) [#/Vol] 8.1 10*3/uL 4.4-11.0 [facility] Work Phone: Blood erythrocytes count (nu mber/volume)on 06-30-2021 RBC (Bld) [#/Vol] 4.39 10*6/uL 4.2-5.4 [facility] [facility] Work Phone: Blood hemoglobin measurement (mass/volume)on 06-30-2021 Hemoglobin (Bld) [Mass/Vol] 11.7 g/dL 12.0-15.0 [facility] Work Phone: Blood lymphocytes/100 leukoc yteson 06-30-2021 Lymphocytes/100 WBC (Bld) 20.3 % 19-41 [facility] Work Phone: Blood monocytes/100 leukocyt eson 06-30-2021 Monocytes/100 WBC (Bld) 6.1 % 0-10 [facility] Work Phone: Blood platelet mean volumeon 06-30-2021 Platelet mean volume (Bld) [Entitic vol] 10.1 fL 6.2-12.0 [facility] Work Phone: Determination of erythrocyte mean corpuscular volume (MCV)on 06-30-2021 MCV (RBC) [Entitic vol] 84.7 fL 81-99 [facility] Work Phone: Erythrocyte sedimentation ra ebony 06-30-2021 ESR (Bld) [Velocity] 35 mm/h 0-30 [facility] Work [facility]: Hematocrit Auto (Bld) [Volum e fraction]on 06-30-2021 Hematocrit (Bld) [Volume fraction] 37.2 % 37-47 [facility] Work Phone: Laboratory - Chemistry and C hemistry - challengeon 06-30-2021 CO2 [Moles/Vol] 28.0 mmol/L 21.0-32.0 [facility] Work Phone: Urea nitrogen/Creatinine [Mass ratio] 19.7 mg/mg 10-20 [facility] Work Phone: Laboratory - Hematology and Cell countson 06-30-2021 Erythrocyte distribution width (RBC) [Entitic vol] 45.3 fL 35.1-43.9 [facility] Work Phone: Erythrocyte distribution width (RBC) [Ratio] 14.7 % 11.6-14.6 [facility] Work Phone: Immature granulocytes/100 WBC (Bld) 0.600 % 0.0-0.9 [facility] Work Phone: Comment on above: IG% - Immature Granu locytes (promyelocytes, myelocytes and metamyelocytes) > 1% indicates that a LEFT SHIFT is Present. MCH (RBC) [Entitic mass] 26.7 pg 27.0-32.0 [facility] Work Phone: Nucleated RBC/100 WBC (Bld) [Ratio] 0 % 0-5 [facility] Work Phone: MCHC Auto (RBC) [Mass/Vol]on 06-30-2021 MCHC (RBC) [Mass/Vol] 31.5 g/dL 32-36 [facility] Work Phone: No Panel Informationon 06-30 Estimated Creatinine Clearance Calc 39.50 ml/min [facility] Work Phone: Estimated GFR (MDRD) Amer 114 mL/min >60 [facility] Work Phone: Comment on above: GFR Calc Estimated GFR (MDRD) Non-Af Amer 94 mL/min >60 [facility] Work Phone: Comment on above: Non- GFR Calc Platelets bldon 06-30-2021 Platelets (Bld) [#/Vol] 215 10*3/uL 150-450 [facility] Work Phone: Serum or plasma C reactive p rotein measurement (mass/volume)on 06-30-2021 CRP [Mass/Vol] 6.98 mg/L 0.0-3.0 [facility] Work Phone: Comment on above: C-Reactive Protein ( CRP) provides useful information for thediagnosis, therapy and monitoring of inflammatory processesand associated diseases. For the evaluation of Relative Riskfor Cardiovascular Disease, a High Sensitivity CRP (HSCRP)should be ordered. Serum or plasma calcium huma urement (mass/volume)on 06-30-2021 Calcium [Mass/Vol] 9.2 mg/dL 8.5-10.1 [facility] Work Phone: Serum or plasma creatinine m easurement (mass/volume)on 06-30-2021 Creatinine [Mass/Vol] 0.66 mg/dL 0.55-1.02 [facility] Work Phone: Comment on above: The validity of the calculated GFR & GFRAA in patients over 70 years has not been determined. Clinical correlation is essential. Serum or plasma urea nitroge n measurement (mass/volume)on 06-30-2021 Urea nitrogen [Mass/Vol] 13 mg/dL 7-18 [facility] Work Phone: Thin prep Papanicolaou smear with manual screeningon 06-30-2021 Thin prep Papanicolaou smear with manual screening 6 5-15 [facility] Work Phone: CNPJimena 09-02-2020 CNPN Telephone (OBGYWM) CHELSEY BELTRAN ([id number]) 1950 F Date Time Provider Department 09/02/20 BRISA YANEZ (MICKI) OBGYWM During your visit today, we recorded the following information about you: Brisa Yanez APRN.CNP 09/02/2020 7:13 AM Signed Please notify [...] Rash Date Reviewed: 08/28/2020 Reviewed by: Brisa Johnson) Aleksandr - Fully Assessed Reason for Visit: Results [...] CAPSULE,[place]* Take 40 mg by mouth once adrinaa* LEVOTHYROXINE 50 MCG TABLET Take 50 mcg [...] Status:Closed by LAYLA SEWELL RN on 09/02/20 Normal [facility] Bact/Cand Vag Grm Ston 08-29 Bact/Cand Vag Grm St Sp. Request/Comment : - Swab Smear Result - BACTERIAL VAGINOSIS RESULT: Stain results consistent with normal vaginal jerrod. No Yeast observed Few Polymorphonuclear leukocytes Normal [facility] Comment on above: Performed By: #### B VCNSM #### [facility] [address] [address] CNOVon 08-28-2020 CNOV Office Visit (OBGYWM ) OCTAVIOCHERYLCHELSEY ARNOLD ([id number]) 1950 F Date Time Provider Department 08/28/20 1:30 PM BRISA AYNEZ ([employer]) OBGYWM During your visit today, we recorded the following information about you: Blood pressure Weight Height 127/72 91.2 kg 1.524 m Brisa Yanez APRN.MICKI 08/28/2020 3:35 PM Signed Chelsey Beltran is a 70 year old female [...] medication updated:Yes EXAM: BP 127/72 Ht 5' 0" (1.52m) Wt 201 lb (91.2kg) BMI 39.26 kg/(m2). GENERAL: pleasant, female in no apparent distress CHEST: Normal inspiratory effort ABDOMEN: soft, non-tender and no masses PELVIC: external genitalia normal, normal Bartholin's glands, urethra, [place]'s glands, no vulvar lesions, no cervical lesions, physiologic discharge present, normal appearing perineal body and perianal region, atrophy. Vulva and perineum with moderate erythema. No lesions or plaques. BIMANUAL: uterus normal size, shape and consistency, no adnexal masses and non-tender NEURO: alert and oriented x3,exam grossly non-focal ASSESSMENT/PLAN: 1. Vulvar dermatitis - ICD9: 692.9, ICD10: L30.9 - B (more content not included)... Normal [facility] Renteria Prot Electrophoresis Serumon 12-21-2018 Albumin [Mass/Vol] 3.4 g/dL Normal 2.9-4.4 [facility] Comment on above: Order Comment: nhc Performed at: [place] [address] Parachute Rigger: Corky Damon PhD, Phone: [phone] Performed By: #### S PEP #### [facility] RESULTS Albumin/Globulin [Mass ratio] 1.2 {ratio} Normal 0.7-1.7 [facility] Comment on above: Order Comment: nhc Performed at: [place] [address] Parachute Rigger: Corky Damon PhD, Phone: [phone] Performed By: #### S PEP #### [facility] RESULTS Bkzxv-1-Wmnebaal 0.3 g/dL Normal 0.0-0.4 [facility] Comment on above: Order Comment: nhc Performed at: [place] [address] Parachute Rigger: Corky Damon PhD, Phone: [phone] Performed By: #### S PEP #### [facility] RESULTS Kugxd-0-Cogtifql 0.9 g/dL Normal 0.4-1.0 [facility] Comment on above: Order Comment: nhc Performed at: [place] [address] Parachute Rigger: Corky Damon PhD, Phone: [phone] Performed By: #### S PEP #### [facility] RESULTS Beta Globulin 0.8 g/dL Normal 0.7-1.3 [facility] Comment on above: Order Comment: nhc Performed at: [place] [address] Parachute Rigger: Corky Damon PhD, Phone: [phone] Performed By: #### S PEP #### [facility] RESULTS Gamma Globulin 0.8 g/dL Normal 0.4-1.8 [facility] Comment on above: Order Comment: nhc Performed at: [place] [address] Parachute Rigger: Corky Damon PhD, Phone: [phone] Performed By: #### S PEP #### [facility] RESULTS Globulin (S) [Mass/Vol] 2.8 g/dL Normal 2.2-3.9 [facility] Comment on above: Order Comment: nhc Performed at: [place] [address] Parachute Rigger: Corky Damon PhD, Phone: [phone] Performed By: #### S PEP #### [facility] RESULTS M-Thien Not Observed Normal Not Observed [facility] Comment on above: Order Comment: nhc Performed at: [place] [address] Parachute Rigger: Corky Damon PhD, Phone: [phone] Performed By: #### S PEP #### [facility] RESULTS PDF . [facility] Comment on above: Order Comment: nhc Performed at: [place] [address] Parachute Rigger: Corky Damon PhD, Phone: [phone] Performed By: #### S PEP #### [facility] RESULTS Please note: Comment [facility] Comment on above: Order Comment: nhc Performed at: [place] [address] Parachute Rigger: Corky Damon PhD, Phone: [phone] Result Comment: Prot ein electrophoresis scan will follow via computer, mail, or flight attendant/inflight manager delivery. Performed By: #### S PEP #### [facility] RESULTS Protein [Mass/Vol] 6.2 g/dL Normal 6.0-8.5 [facility] Comment on above: Order Comment: nhc Performed at: [place] [address] Parachute Rigger: Corky Damon PhD, Phone: [phone] Performed By: #### S PEP #### [facility] RESULTS C-Reactive Proteinon 019 CRP [Mass/Vol] mg/L Normal <=2.99 [facility] Comment on above: Order Comment: nhc Performed By: #### C MP, CRPR #### [facility] [address] [place] [address] CBC with Diffon 12-19-2018 Basophils (Bld) [#/Vol] 0.0 x(10)3/cumm Normal 0.0-0.1 [facility] Comment on above: Order Comment: nhc Performed By: #### C BCDIFF #### [facility] [address] [place] [address] Basophils/100 WBC (Bld) 0.4 % Normal 0.0-1.0 [facility] Comment on above: Order Comment: nhc Performed By: #### C BCLAURENFF #### [facility] [address] [place], [place] [phone] Eosinophils (Bld) [#/Vol] 0.0 x(10)3/cumm Normal 0.0-0.4 [facility] Comment on above: Order Comment: nhc Performed By: #### C BCLAURENFF #### [facility] [address] [place] [address] Eosinophils/100 WBC (Bld) 0.2 % Normal 0.0-6.1 [facility] Comment on above: Order Comment: nhc Performed By: #### C BCLAURENFF #### [facility] [address] [place] [address]486 Erythrocyte distribution width (RBC) [Ratio] 17.0 % High 11.1-15.3 [facility] Comment on above: Order Comment: nhc Performed By: #### C BCDIFF #### [facility] [address] [place], [place] [phone] Hematocrit (Bld) [Volume fraction] 39.9 % Normal 34.6-45.0 [facility] Comment on above: Order Comment: nhc Performed By: #### C BCDIFF #### [facility] [address] [place] [address] Hemoglobin (Bld) [Mass/Vol] 13.0 g/dL Normal 11.5-15.5 [facility] Comment on above: Order Comment: nhc Performed By: #### C BCDIFF #### [facility] [address] [place] [address]3849 Lymphocytes (Bld) [#/Vol] 1.4 x(10)3/cumm Normal 0.8-2.9 [facility] Comment on above: Order Comment: nhc Performed By: #### C BCDIFF #### [facility] [address] [place] [address]99 Lymphocytes/100 WBC (Bld) 11.9 % Low 12.2-42.6 [facility] Comment on above: Order Comment: nhc Performed By: #### C BCDIFF #### [facility] [address] [place] [address]19 MCH (RBC) [Entitic mass] 28.5 pg Normal 27.2-33.6 [facility] Comment on above: Order Comment: nhc Performed By: #### C BCDIFF #### [facility] [address] [place] [address]34 MCHC (RBC) [Mass/Vol] 32.7 g/dL Low 32.9-35.3 [facility] Comment on above: Order Comment: nhc Performed By: #### C BCDIFF #### [facility] [address] [place] [address]696 MCV (RBC) [Entitic vol] 87.2 fL Normal 81.3-96.7 [facility] Comment on above: Order Comment: nhc Performed By: #### C BCDIFF #### [facility] [address] [place] [address]351 Monocytes (Bld) [#/Vol] 0.5 x(10)3/cumm Normal 0.2-0.8 [facility] Comment on above: Order Comment: nhc Performed By: #### C BCDIFF #### [facility] [address] [place] [address] 92096 Monocytes/100 WBC (Bld) 3.8 % Normal 3.3-11.6 [facility] Comment on above: Order Comment: nhc Performed By: #### C BCDIFF #### [facility] [address] [place] [address] 98094 Neutrophils (Bld) [#/Vol] 10.0 x(10)3/cumm High 1.3-7.4 [facility] Comment on above: Order Comment: nhc Performed By: #### C BCDIFF #### [facility] [address] [place] [address] 52233 Neutrophils/100 WBC (Bld) 83.7 % High 44.9-78.8 [facility] Comment on above: Order Comment: nhc Performed By: #### C BCDIFF #### [facility] [address] [place] [address] 40868 Platelet mean volume (Bld) [Entitic vol] 7.9 fL Normal 6.4-10.0 [facility] Comment on above: Order Comment: nhc Performed By: #### C BCDIFF #### [facility] [address] [place] [address] 52496 Platelets (Bld) [#/Vol] 177 x(10)3/cumm Normal 138-367 [facility] Comment on above: Order Comment: nhc Performed By: #### C BCDIFF #### [facility] [address] [place] [address] 35140 Plt Morph normal Normal [facility] Comment on above: Order Comment: nhc Performed By: #### C BCDIFF #### [facility] [address] [place] [address] 35601 RBC (Bld) [#/Vol] 4.57 X(10)6/cumm Normal 3.90-5.10 [facility] Comment on above: Order Comment: nhc Performed By: #### C BCDIFF #### [facility] [address] [place] [address] 33082 RBC Morph cont Normal [facility] Comment on above: Order Comment: nhc Performed By: #### C BCDIFF #### [facility] [address] [place], [place] [phone] RBC morphology finding Nom (Bld) mild aniso, mild hypo Normal [facility] Comment on above: Order Comment: nhc Performed By: #### C BCDIFF #### [facility] [address] [place], [place] [phone] WBC (Bld) [#/Vol] 12.0 x(10)3/cumm High 3.6-10.3 [facility] Comment on above: Order Comment: nhc Performed By: #### C BCDIFF #### [facility] [address] [place], [place] [phone] WBC Morph less than 10% bands Normal [facility] Comment on above: Order Comment: nhc Performed By: #### C BCDIFF #### [facility] [address] [place], [place] [phone] Comprehensive Metabolic Pane jolly 12-19-2018 Albumin [Mass/Vol] 3.7 g/dL Normal 3.4-5.0 [facility] Comment on above: Order Comment: nhc Performed By: #### C ROSE, CRPR #### [facility] [address] [place], [place] [phone] ALP [Catalytic activity/Vol] 76 U/L Normal 45-117 [facility] Comment on above: Order Comment: nhc Performed By: #### C ROSE, CRPR #### [facility] [address] [place], [place] [phone] ALT [Catalytic activity/Vol] 49 U/L Normal 12-78 [facility] Comment on above: Order Comment: nhc Performed By: #### C ROSE, CRPR #### [facility] [address] [place], [place] [phone] Anion gap [Moles/Vol] 10 mmol/L Normal 5-10 [facility] Comment on above: Order Comment: nhc Performed By: #### C ROSE, CRPR #### [facility] [address] [place], [place] [phone] AST [Catalytic activity/Vol] 16 U/L Normal 15-37 [facility] Comment on above: Order Comment: nhc Performed By: #### C ROSE, CRPR #### [facility] [address] [place] [address] 24131 Bili, Total 0.6 mg/dL Normal 0.2-1.0 [facility] Comment on above: Order Comment: nhc Performed By: #### C ROSE, CRPR #### [facility] [address] [place] [address] 51646 Calcium [Mass/Vol] 9.2 mg/dL Normal 8.5-10.1 [facility] Comment on above: Order Comment: nhc Performed By: #### Marbella ROSE, CRPR #### [facility] [address] [place], [place] [phone] Chloride [Moles/Vol] 105 mmol/L Normal 98-107 [facility] Comment on above: Order Comment: nhc Performed By: #### Marbella ROSE, CRPR #### [facility] [address] [place], [place] [phone] CO2 [Moles/Vol] 25 mmol/L Normal 21-32 [facility] Comment on above: Order Comment: nhc Performed By: #### C ROSE, CRPR #### [facility] [address] [place], [place] [phone] Creatinine [Mass/Vol] 0.72 mg/dL Normal 0.60-1.30 [facility] Comment on above: Order Comment: nhc Performed By: #### Marbella ROSE, CRPR #### [facility] [address] [place] [address] 05477 eGFR -Amer >60 Normal >=60 [facility] Comment on above: Order Comment: nhc Performed By: #### C ROSE, CRPR #### [facility] [address] [place], [place] [phone] GFR/1.73 sq M predicted among non-blacks MDRD (S/P/Bld) [Vol rate/Area] mL/min/{1.73_m2} Normal >=60 [facility] Comment on above: Order Comment: nhc Performed By: #### C MP, CRPR #### [facility] [address] [place] [address] 75456 Glucose [Mass/Vol] 137 mg/dL High 74-106 [facility] Comment on above: Order Comment: nhc Performed By: #### C MP, CRPR #### [facility] [address] [place] [address] 63120 Potassium [Moles/Vol] 4.2 mmol/L Normal 3.5-5.1 [facility] Comment on above: Order Comment: nhc Performed By: #### C MP, CRPR #### [facility] [address] [place] [address] 35981 Prot Total 6.3 gm/dL Low 6.4-8.2 [facility] Comment on above: Order Comment: nhc Performed By: #### C MP, CRPR #### [facility] [address] [place], [place] [phone] Sodium [Moles/Vol] 140 mmol/L Normal 136-145 [facility] Comment on above: Order Comment: nhc Performed By: #### C ROSE, CRPR #### [facility] [address] [place] [address] 20151 Urea nitrogen [Mass/Vol] 20 mg/dL High 7-18 [facility] Comment on above: Order Comment: nhc Performed By: #### C MP, CRPR #### [address] [address] Sed Rate - [place] 06-2 -2018 Sed Rate 7 mm/hr Normal 0-20 [facility] Comment on above: Order Comment: nhc Performed By: #### E SR #### [address] [address] Lab Report: [id number]-[id number] Shady red 08-19-2016 B2 [id number] 1.6 mg/L Invalid Interpretation Code 0.6-2.4 [facility] Work Phone: Lab Report: Immunoglobulin A on 08-19-2016 IgA 95 mg/dL Invalid Interpretation Code 87-352 [facility] Work Phone: [phone] Lab Report: Immunoglobulin G on 08-19-2016 IgG 692 mg/dL Low 700-1600 [facility] Work Phone: [phone] Lab Report: Immunoglobulin M on 08-19-2016 IgM 720 mg/dL High 26-217 [facility] Work Phone: [phone] Lab Report: Protein Electro. Ur-Randomon 08-19-2016 NOTE Comment Invalid Interpretation Code . [facility] Work Phone: [phone] Protein [Mass] in Urine collected for unspecified duration 13.1 mg/dL Invalid Interpretation Code Not Estab. [facility] Work Phone: [phone] Lab Report: Protein Electrop h, Son 08-19-2016 INTERPRETATION Comment Invalid Interpretation Code . [facility] Work Phone: [phone] M-SPIKE . Invalid Interpretation Code [facility] Work Phone: [phone] NOTE: Comment Invalid Interpretation Code . [facility] Work Phone: [phone] Albumin 3.6 g/dL Invalid Interpretation Code 2.9-4.4 [facility] Work Phone: [phone] Albumin/Globulin Ratio 1.1 (?) Invalid Interpretation Code 0.7-1.7 [facility] Work Phone: [phone] ALPHA-1 GLOBUL 0.3 g/dL Invalid Interpretation Code 0.0-0.4 [facility] Work Phone: [phone] ALPHA-2 GLOBUL 0.8 g/dL Invalid Interpretation Code 0.4-1.0 [facility] Work Phone: [phone] BETA GLOBULIN 1.0 g/dL Invalid Interpretation Code 0.7-1.3 [facility] Work Phone: [phone] GAMMA GLOBULIN 1.1 g/dL Invalid Interpretation Code 0.4-1.8 [facility] Work Phone: [phone] Globulin 3.2 g/dL Invalid Interpretation Code 2.2-3.9 [facility] Work Phone: [phone] Protein 6.8 g/dL Invalid Interpretation Code 6.0-8.5 [facility] Work Phone: [phone] Lab Report: Vitamin D,25 Hyd roxyon 08-18-2016 Vitamin D 25-OH 24.3 ng/mL Invalid Interpretation Code [facility] Work Phone: [phone] Lab Report: Comprehensive Me tabolic Profilon 08-17-2016 Alanine aminotransferase (ALT) 22 U/L Invalid Interpretation Code 12-78 [facility] Work Phone: [phone] Albumin 3.9 g/dL Invalid Interpretation Code 3.4-5.0 [facility] Work Phone: [phone] Albumin/Globulin Ratio 1 {ratio} Invalid Interpretation Code 0.9-2.4 [facility] Work Phone: [phone] Alkaline phosphatase (ALP) 96 U/L Invalid Interpretation Code 45-117 [facility] Work Phone: [phone] Anion gap 10 mmol/L Invalid Interpretation Code 5-15 [facility] Work Phone: [phone] Aspartate aminotransferase (AST) 11 U/L Low 15-37 [facility] Work Phone: [phone] Bilirubin (total) 0.70 mg/dL Invalid Interpretation Code 0.20-1.00 [facility] Work Phone: [phone] BUN/Creatinine Ratio 15.1 RATIO Invalid Interpretation Code 10-20 [facility] Work Phone: [phone] Calcium 8.9 mg/dL Invalid Interpretation Code 8.5-10.1 [facility] Work Phone: [phone] Chloride 103 mmol/L Invalid Interpretation Code 98-107 [facility] Work Phone: [phone] CO2 26.0 mmol/L Invalid Interpretation Code 21.0-32.0 [facility] Work Phone: [phone] Creatinine 0.79 mg/dL Invalid Interpretation Code 0.55-1.02 [facility] Work Phone: [phone] eGFR (non-black) 93 mL/min/{1.73_m2} Invalid Interpretation Code >60 [facility] Work Phone: [phone] eGFR (non-black) 77 mL/min/{1.73_m2} Invalid Interpretation Code >60 [facility] Work Phone: [phone] Globulin 3.9 g/dL High 2.3-3.5 [facility] Work Phone: [phone] Glucose mass conc 106 mg/dL Invalid Interpretation Code 70-110 [facility] Work Phone: [phone] Potassium molar conc 3.6 mmol/L Invalid Interpretation Code 3.5-5.1 [facility] Work Phone: [phone] Protein 7.8 g/dL Invalid Interpretation Code 6.4-8.2 [facility] Work Phone: [phone] Sodium 139 mmol/L Invalid Interpretation Code 136-145 [facility] Work Phone: [phone] Urea nitrogen 12 mg/dL Invalid Interpretation Code 7-18 [facility] Work Phone: [phone] Lab Report: Thyroid Stim Hor jessica (TSH)on 08-17-2016 Thyroid stimulating hormone (TSH) 3.01 u[iU]/mL Invalid Interpretation Code 0.358-3.74 [facility] Work Phone: [phone] 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 * PHQ9 Completeon 08-17-2016 Adult depression screening assessment Adult depression screening assessment Invalid Interpretation Code [facility] Work Phone: [phone] Documentation of current medications (procedure) Done Invalid Interpretation Code [facility] Work Phone: [phone] Replaced Document: CBC W/Dif f, Auto - EPLAB Onlyon 08-17-2016 Absolute Neut 5.5 X10 3/UL Invalid Interpretation Code 2.0-7.7 [facility] Work Phone: [phone] Basophils/100 WBC Auto (Bld) 0.6 % Invalid Interpretation Code 0-1 [facility] Work Phone: [phone] Eosinophils/100 leukocytes 1.6 % Invalid Interpretation Code 0-5 [facility] Work Phone: [phone] Erythrocyte distribution width Auto Ratio (RBC) 13.3 % Invalid Interpretation Code 11.6-14.6 [facility] Work Phone: [phone] Erythrocytes (RBC) 4.88 10*6/uL Invalid Interpretation Code 4.2-5.4 [facility] Work Phone: [phone] Hematocrit (HCT) 43.6 % Invalid Interpretation Code 37-47 [facility] Work Phone: [phone] Hemoglobin mass conc (Bld) 14.1 g/dL Invalid Interpretation Code 12.0-15.0 [facility] Work Phone: [phone] Lymphocytes 2.36 X10 3/UL Invalid Interpretation Code 0.83-4.51 [facility] Work Phone: [phone] Lymphocytes/100 leukocytes 27.9 % Invalid Interpretation Code 19-41 [facility] Work Phone: [phone] MCH 28.8 pg Invalid Interpretation Code 27.0-32.0 [facility] Work Phone: [phone] MCHC mass conc (RBC) 32.3 g/dL Invalid Interpretation Code 32-36 [facility] Work Phone: [phone] MCV 89.3 fL Invalid Interpretation Code 81-99 [facility] Work Phone: [phone] Monocytes/100 leukocytes 5.4 % Invalid Interpretation Code 0-10 [facility] Work Phone: [phone] Neutrophils/100 WBC Auto (Bld) 64.5 % Invalid Interpretation Code 47-70 [facility] Work Phone: [phone] Platelets 207 10*3/mm3 Invalid Interpretation Code 150-450 [facility] Work Phone: [phone] PMV by Jillian 6.9 fL Invalid Interpretation Code 6.2-12.0 [facility] Work Phone: [phone] WBC (Leukocytes) 8.5 10*3/uL Invalid Interpretation Code 4.4-11.0 [facility] Work Phone: [phone] 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 Tobacco smoking status NHIS Never Invalid Interpretation Code [facility] Work Phone: [phone] Tobacco use CPHS Never smoker Invalid Interpretation Code [facility] Work Phone: [phone] Lab Report: VANESSA + Protein El ect, Serumon 11-20-2015 Albumin 3.6 g/dL Invalid Interpretation Code 3.2-5.6 [facility] Work Phone: [phone] Alpha 2 globulin 0.8 g/dL Invalid Interpretation Code 0.4-1.2 [facility] Work Phone: [phone] DDUBC-9-CCNO 0.3 g/dL Invalid Interpretation Code 0.1-0.4 [facility] Work Phone: [phone] BETA GLOBULIN 1.0 g/dL Invalid Interpretation Code 0.6-1.3 [facility] Work Phone: [phone] Gamma globulin 1300 mg/dL Invalid Interpretation Code Units converted. See lab report for original value. [facility] Work Phone: [phone] M-SPIKE . Invalid Interpretation Code [facility] Work Phone: [phone] Lab Report: Mason Lambda Lig ht Chainson 11-20-2015 FR KAPPA LT CHN 1.741 mg/dL Invalid Interpretation Code Units converted. See lab report for original value. [facility] Work Phone: [phone] FR LAMBDA LT CH 1.599 mg/dL Invalid Interpretation Code Units converted. See lab report for original value. [facility] Work Phone: [phone] KAPPA/LAMBDA % 1.09 Invalid Interpretation Code 0.26-1.65 [facility] Work Phone: [phone] Lab Report: Erythrocyte Sed Rateon 08-19-2015 Erythrocyte sedimentation rate 40 mm/h High 0-30 [facility] Work Phone: [phone] Lab Report: LDHon 08-19-2015 LDH 163 U/L Invalid Interpretation Code 84-246 [facility] Work Phone: [phone] Lab Report: Uric Acidon 07-29 Urate 3.7 mg/dL Invalid Interpretation Code 2.6-6.0 [facility] Work Phone: [phone] Replaced Document: (P) ANCAo n 05-30-2015 Neutrophils . 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 05-27-2015 General categories [Interpretation] of Cervical or vaginal smear or scraping by Cyto stain Normal Invalid Interpretation Code [facility] Work Phone: [phone] Breast Mammogram screening Normal Bilateral Invalid Interpretation Code [facility] Work Phone: [phone] Lab Report: ANTINUCLEAR ANTI BODIES DIRECTon 05-14-2015 CORINNE Titer Negative Invalid Interpretation Code Negative [facility] Work Phone: [phone] Lab Report: CBC W/Diff, Auto - EPLAB Onlyon 05-06-2015 Pathologist (cervix/vaginal) May foll Invalid Interpretation Code [facility] Work Phone: [phone] 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 Kanika Mike DO Work Phone: [facility] 01-09-2025 14:56-0400 Body mass index (BMI) [Ratio] 31.1 kg/m2 Dr. Kanika Mike DO Work Phone: [facility] 01-09-2025 14:56-0400 Body weight 74.[address] Kanika Mike DO Work Phone: [facility] 12-17-2024 14:50-0400 Body height 154.[address] Kanika Mike DO Work Phone: [facility] 12-17-2024 14:50-0400 Body mass index (BMI) [Ratio] 31.4 kg/m2 Dr. Kanika Mike DO Work Phone: [facility] 12-17-2024 14:50-0400 Body weight 75.[address] Kanika Mike DO Work Phone: [facility] 12-07-2024 13:23-0400 Body height 154.[address] Kanika Mike DO Work Phone: [facility] 12-07-2024 13:23-0400 Body mass index (BMI) [Ratio] 31.4 kg/m2 Dr. Kanika Mike DO Work Phone: [facility] 12-07-2024 13:23-0400 Body weight 75.[address] Kanika Mike DO Work Phone: [facility] 12-07-2024 13:23-0400 Diastolic blood pressure 56 mm[Hg] Dr. Kanika Mike DO Work Phone: [facility] 12-07-2024 13:23-0400 Heart rate 67 /min Dr. Kanika Mike DO Work Phone: [facility] 12-07-2024 13:23-0400 Respiratory rate 16 /min Dr. Kanika Mike DO Work Phone: [facility] 12-07-2024 13:23-0400 Systolic blood pressure 99 mm[Hg] Dr. Kanika Mike DO Work Phone: [facility] 07-31-2024 08:15-0500 Body temperature 97.1 [degF] Dr. Kanika Mike DO Work Phone: [facility] 07-31-2024 08:15-0500 Diastolic blood pressure 63 mm[Hg] Dr. Kanika Mike DO Work Phone: [facility] 07-31-2024 08:15-0500 Heart rate 68 /min Dr. Kanika Mike DO Work Phone: [facility] 07-31-2024 08:15-0500 Respiratory rate 16 /min Dr. Kanika Mike DO Work Phone: [facility] 07-31-2024 08:15-0500 SaO2% (BldA) [Mass fraction] 94 % Dr. Kanika Mike DO Work Phone: [facility] 07-31-2024 08:15-0500 Systolic blood pressure 112 mm[Hg] Dr. Kanika Mike DO Work Phone: [facility] 07-31-2024 06:27-0500 Body height 154.[address] Kanika Mike DO Work Phone: [facility] 07-31-2024 06:27-0500 Body mass index (BMI) [Ratio] 32.4 kg/m2 Dr. Kanika Mike DO Work Phone: [facility] 07-31-2024 06:27-0500 Body weight 77.[address] Kanika Mike DO Work Phone: [facility] 07-26-2024 13:35-0500 Body temperature 98.5 [degF] Dr. Kanika Mike DO Work Phone: [facility] 07-26-2024 13:35-0500 Diastolic blood pressure 53 mm[Hg] Dr. Kanika Mike DO Work Phone: [facility] 07-26-2024 13:35-0500 Heart rate 65 /min Dr. Kanika Mike DO Work Phone: [facility] 07-26-2024 13:35-0500 Respiratory rate 18 /min Dr. Kanika Mike DO Work Phone: [facility] 07-26-2024 13:35-0500 SaO2% (BldA) [Mass fraction] 94 % Dr. Kanika Mike DO Work Phone: [facility] 07-26-2024 13:35-0500 Systolic blood pressure 108 mm[Hg] Dr. Kanika Mike DO Work Phone: [facility] 07-26-2024 11:40-0500 Body mass index (BMI) [Ratio] 32.5 kg/m2 Dr. Kanika Mike DO Work Phone: [facility] 07-26-2024 11:40-0500 Body weight [address] Kanika Mike DO Work Phone: [facility] 05-28-2024 10:16-0500 Body weight 77.[address] Kanika Mike DO Work Phone: [facility] 05-28-2024 10:16-0500 Diastolic blood pressure 64 mm[Hg] Dr. Kanika Mike DO Work Phone: [facility] 05-28-2024 10:16-0500 Heart rate 65 /min Dr. Kanika Mike DO Work Phone: [facility] 05-28-2024 10:16-0500 Respiratory rate 18 /min Dr. Kanika Mike DO Work Phone: [facility] 05-28-2024 10:16-0500 SaO2% (BldA) [Mass fraction] 96 % Dr. Kanika Mike DO Work Phone: [facility] 05-28-2024 10:16-0500 Systolic blood pressure 98 mm[Hg] Dr. Kanika Mike DO Work Phone: [facility] 08-11-2022 23:27-0500 Diastolic blood pressure 81 mm[Hg] [facility] 08-11-2022 23:27-0500 Heart rate 101 /min [facility] 08-11-2022 23:27-0500 Respiratory rate 18 /min [facility] 08-11-2022 23:27-0500 SaO2% (BldA) [Mass fraction] 98 % [facility] 08-11-2022 23:27-0500 Systolic blood pressure 148 mm[Hg] [facility] 08-11-2022 18:56-0500 Body height 152.4 cm [facility] 08-11-2022 18:56-0500 Body mass index (BMI) [Ratio] 38.2 kg/m2 [facility] 08-11-2022 18:56-0500 Body temperature 97 [degF] [facility] 08-11-2022 18:56-0500 Body weight 88.9 kg [facility] 07-15-2022 14:21-0500 Body mass index (BMI) [Ratio] 38.2 kg/m2 [facility] 07-15-2022 14:21-0500 Body weight 88.9 kg [facility] 07-15-2022 14:21-0500 Diastolic blood pressure 75 mm[Hg] [facility] 07-15-2022 14:21-0500 Heart rate 62 /min [facility] 07-15-2022 14:21-0500 Respiratory rate 18 /min [facility] 07-15-2022 14:21-0500 SaO2% (BldA) [Mass fraction] 95 % [facility] 07-15-2022 14:21-0500 Systolic blood pressure 124 mm[Hg] [facility] 04-05-2022 15:00-0400 Body height 152.4 cm [facility] Work Phone: 04-05-2022 15:00-0400 Body mass index (BMI) [Ratio] 39.2 kg/m2 [facility] Work Phone: 04-05-2022 15:00-0400 Body weight 91.17 kg [facility] Work Phone: 04-05-2022 15:00-0400 Diastolic blood pressure 59 mm[Hg] [facility] Work Phone: 04-05-2022 15:00-0400 Heart rate 62 /min [facility] Work Phone: 04-05-2022 15:00-0400 Respiratory rate 16 /min [facility] Work Phone: 04-05-2022 15:00-0400 Systolic blood pressure 108 mm[Hg] [facility] Work Phone: 08-26-2021 04:34-0500 Heart rate 64 /min [facility] Work Phone: 08-26-2021 04:34-0500 Respiratory rate 18 /min [facility] Work Phone: 08-26-2021 04:34-0500 SaO2% (BldA) [Mass fraction] 97 % [facility] Work Phone: 08-26-2021 03:05-0500 Body height 152.4 cm [facility] Work Phone: 08-26-2021 03:05-0500 Body mass index (BMI) [Ratio] 39.1 kg/m2 [facility] Work Phone: 08-26-2021 03:05-0500 Body temperature 97.7 [degF] [facility] Work Phone: 08-26-2021 03:05-0500 Body weight 90.8 kg [facility] Work Phone: 08-26-2021 03:05-0500 Diastolic blood pressure 64 mm[Hg] [facility] Work Phone: 08-26-2021 03:05-0500 Systolic blood pressure 157 mm[Hg] [facility] Work Phone: 08-18-2021 14:37-0500 Body mass index (BMI) [Ratio] 38 kg/m2 [facility] Work Phone: 08-18-2021 14:37-0500 Body weight 88.45 kg [facility] Work Phone: 08-18-2021 14:37-0500 Diastolic blood pressure 67 mm[Hg] [facility] Work Phone: 08-18-2021 14:37-0500 Heart rate 66 /min [facility] Work Phone: 08-18-2021 14:37-0500 Respiratory rate 20 /min [facility] Work Phone: 08-18-2021 14:37-0500 Systolic blood pressure 107 mm[Hg] [facility] Work Phone: 08-16-2021 16:42-0500 Diastolic blood pressure 65 mm[Hg] [facility] Work Phone: 08-16-2021 16:42-0500 Heart rate 113 /min [facility] Work Phone: 08-16-2021 16:42-0500 Respiratory rate 22 /min [facility] Work Phone: 08-16-2021 16:42-0500 SaO2% (BldA) [Mass fraction] 92 % [facility] Work Phone: 08-16-2021 16:42-0500 Systolic blood pressure 96 mm[Hg] [facility] Work Phone: 08-16-2021 11:36-0500 Body mass index (BMI) [Ratio] 37.5 kg/m2 [facility] Work Phone: 08-16-2021 11:36-0500 Body temperature 96.9 [degF] [facility] Work Phone: 08-16-2021 11:36-0500 Body weight 87.3 kg [facility] Work Phone: 08-10-2021 11:48-0500 Body temperature 97.9 [degF] [facility] Work Phone: 08-10-2021 11:48-0500 Diastolic blood pressure 51 mm[Hg] [facility] Work Phone: 08-10-2021 11:48-0500 Heart rate 78 /min [facility] Work Phone: 08-10-2021 11:48-0500 Respiratory rate 16 /min [facility] Work Phone: 08-10-2021 11:48-0500 SaO2% (BldA) [Mass fraction] 98 % [facility] Work Phone: 08-10-2021 11:48-0500 Systolic blood pressure 105 mm[Hg] [facility] Work Phone: 08-09-2021 10:49-0500 Body weight 87.67 kg [facility] Work Phone: 08-08-2021 13:50-0500 Body mass index (BMI) [Ratio] 37.7 kg/m2 [facility] Work Phone: 08-02-2021 15:30-0500 Diastolic blood pressure 59 mm[Hg] [facility] Work Phone: 08-02-2021 15:30-0500 Heart rate 78 /min [facility] Work Phone: 08-02-2021 15:30-0500 Respiratory rate 18 /min [facility] Work Phone: 08-02-2021 15:30-0500 SaO2% (BldA) [Mass fraction] 96 % [facility] Work Phone: 08-02-2021 15:30-0500 Systolic blood pressure 139 mm[Hg] [facility] Work Phone: 08-02-2021 13:41-0500 Body mass index (BMI) [Ratio] 0.2 kg/m2 [facility] Work Phone: 08-02-2021 13:41-0500 Body temperature 97.2 [degF] [facility] Work Phone: 08-02-2021 13:41-0500 Body weight 87.54 kg [facility] Work Phone: 06-30-2021 05:07-0500 Diastolic blood pressure 73 mm[Hg] [facility] Work Phone: 06-30-2021 05:07-0500 Heart rate 86 /min [facility] Work Phone: 06-30-2021 05:07-0500 Respiratory rate 16 /min [facility] Work Phone: 06-30-2021 05:07-0500 SaO2% (BldA) [Mass fraction] 96 % [facility] Work Phone: 06-30-2021 05:07-0500 Systolic blood pressure 140 mm[Hg] [facility] Work Phone: 06-30-2021 00:54-0500 Body mass index (BMI) [Ratio] 36.2 kg/m2 [facility] Work Phone: 06-30-2021 00:54-0500 Body temperature 97.8 [degF] [facility] Work Phone: 06-30-2021 00:54-0500 Body weight 87.08 kg [facility] Work Phone: 08-17-2016 11:26-0500 BMI (Body Mass Index) 36.53 kg/m2 [facility] Work Phone: 08-17-2016 11:26-0500 Body Temperature 97.5 [degF] [facility] Work Phone: 08-17-2016 11:26-0500 BP Diastolic 75 mm[Hg] [facility] Work Phone: 08-17-2016 11:26-0500 BP Systolic 121 mm[Hg] [facility] Work Phone: [...] 08-17-2016 11:26-0500 Respiratory Rate 20 /min [facility] Work Phone: 08-17-2016 11:26-0500 Weight 92.08 [facility] Work Phone: 08-17-2016 11:26-0500 Weight 92.27 kg Lata DIAZ [facility] Work Phone: 05-06-2015 10:00-0500 Height 158.75 cm [facility] Work Phone: Encounters Encounter Date Encounter Type Care Provider Facility Start: 04-02-2025 End: 04-02-2025 ambulatory Kanika Mike Facility:[facility] Start: 03-05-2025 End: 03-05-[address] Kanika Mike DO Work Phone: -Radiology [facility] Start: 03-05-2025 End: 03-05-[address] Charlie Reed MD -Radiology [facility] Work Phone: Start: 03-05-2025 End: 03-05-2025 ambulatory Kanika Mike Facility:[facility] Start: 01-24-2025 End: 01-24-[address] Kanika Mike DO Work Phone: -Laboratory Specimen Start: 01-24-2025 End: 01-24-[address] Kanika Mike DO -Laboratory Specimen Work Phone: Start: 01-24-2025 End: 01-24-2025 ambulatory Kanika Mike Facility:[facility] Start: 01-09-2025 End: 01-09-[address] Juan Toney MD -[facility] Work Phone: Start: 01-09-2025 End: 01-09-[address] Kanika Mike DO Work Phone: -[facility] Start: 01-01-2025 End: 01-01-[address] Kanika Mike DO Work Phone: -[facility] Start: 01-01-2025 End: 01-01-2025 Patient encounter procedure Rylie XIAO -[facility] Work Phone: Start: 01-01-2025 End: 01-01-2025 ambulatory Kanika Keyla Facility:[facility] Start: 12-17-2024 End: 12-17-[address] Randy Call MD -[facility] Start: 12-17-2024 End: 12-17-[address] Kanika Mike DO Work Phone: [facility] Work Phone: Start: 12-07-2024 End: 12-07-[address] Wilton Davila MD -[facility] Work Phone: Start: 12-07-2024 End: 12-07-[address] Kanika Mike DO Work Phone: [facility] Work Phone: Start: 09-13-2024 End: 09-13-[address] Kanika Mike DO Work Phone: [facility] Work Phone: Start: 09-13-2024 End: 09-13-[address] Kanika Mike DO -[facility] Start: 09-13-2024 End: 09-13-2024 ambulatory Kanika Mike Facility:[facility] Start: 08-13-2024 End: 08-13-[address] Raj Walker DO -[facility] Work Phone: Start: 08-13-2024 End: 08-13-2024 ambulatory [facility] Facility:[facility] Start: 07-31-2024 ambulatory [facility] Facility: [facility] Start: 07-31-2024 Non-patient / Non-visit Dr. Raj Walker DO [facility] Start: 07-31-2024 End: 07-31-2024 Admission to same day surgery center Dr. Raj Walker DO -[facility] Start: 07-31-2024 End: 07-31-2024 ambulatory [facility] Facility:[facility] Start: 07-26-2024 ambulatory [facility] Facility: [facility] Start: 07-26-2024 End: 07-26-2024 Non-patient / Non-visit Denton Morgan DO -[facility] Start: 07-26-2024 End: 07-26-2024 Admission to same day surgery center Denton Morgan DO -Endoscopy Work Phone: Start: 07-26-2024 End: 07-26-2024 [facility] Facility:[facility] Start: 07-04-2024 End: 07-04-[address] Raj Walker DO -[facility] Work Phone: Start: 07-04-2024 End: 07-04-2024 ambulatory [facility] Facility:[facility] Start: 05-28-2024 End: 05-28-2024 Patient encounter procedure [facility] Morgan DO -Laboratory Work Phone: Start: 05-28-2024 End: 05-28-2024 Patient encounter procedure Layla KAMINSKI -[facility] Work Phone: Start: 05-28-2024 End: 05-28-2024 ambulatory [facility] Facility:[facility] Start: 05-28-2024 End: 05-28-2024 ambulatory [facility] Facility:[facility] Start: 05-09-2024 End: 05-09-2024 ambulatory [facility] Start: 04-24-2024 End: 04-24-2024 ambulatory [facility] Facility:[facility] Start: 10-04-2023 End: 10-04-2023 ambulatory [facility] Work Phone: Start: 10-04-2023 End: 10-04-2023 Patient encounter procedure [facility]-Outpatient Bone Densitometry Work Phone: Start: 09-19-2023 End: 09-19-2023 ambulatory [facility] Work Phone: Start: 09-19-2023 End: 09-19-2023 Patient encounter procedure [facility]-Outpatient Breast Imaging Work Phone: Start: 09-06-2023 End: 09-06-2023 ambulatory [facility] Work Phone: Start: 09-06-2023 End: 09-06-2023 Patient encounter procedure [facility]-Piper Pedraza [facility] Start: 08-11-2022 End: 08-11-2022 Emergency department patient visit [facility]-Emergency Department Start: 07-15-2022 End: 07-15-2022 Patient encounter procedure [facility] Start: 07-01-2022 End: 07-01-2022 ambulatory [facility] Work Phone: Start: 07-01-2022 End: 07-01-2022 Patient encounter procedure [facility]-Outpatient Breast Imaging Start: 05-11-2022 Non-patient / Non-visit Kanika [facility] Start: 05-11-2022 End: 05-11-2022 ambulatory [facility] Work Phone: Start: 05-11-2022 End: 05-11-2022 Patient encounter procedure [facility]-Cardiovascular Services Start: 04-19-2022 End: 04-19-2022 ambulatory [facility] Work Phone: Start: 04-19-2022 End: 04-19-2022 Patient encounter procedure Kanika [facility]-Laboratory, Specimen Start: 04-05-2022 End: 04-05-2022 Patient encounter procedure Kanika [facility] Start: 04-05-2022 End: 04-05-2022 ambulatory Kanika [facility] Work Phone: Start: 04-05-2022 End: 04-05-2022 Patient encounter procedure Kanika [facility]-Laboratory Start: 03-22-2022 End: 03-22-2022 ambulatory [facility] Work Phone: Start: 03-22-2022 End: 03-22-2022 Patient encounter procedure [facility]-Laboratory Start: 11-20-2021 End: 11-20-2021 Subsequent hospital visit by physician Layla Holm MD Work Phone: IF TONIA ALBA Comment on above: A-FIB Start: 09-28-2021 End: 09-28-2021 Emergency department patient visit CHARLIE MCDOWELL [facility] Start: 09-23-2021 End: 09-23-2021 Patient encounter procedure [facility]-Pulmonary Services/Neurology Start: 09-09-2021 End: 09-09-2021 Patient encounter procedure [facility]-Laboratory Start: 08-26-2021 End: 08-26-2021 Emergency department patient visit [facility]-Emergency Department Start: 08-18-2021 End: 08-18-2021 Patient encounter [facility] Start: 08-16-2021 End: 08-16-2021 Emergency department patient visit [facility]-Emergency Department Start: 08-16-2021 Non-patient / Non-visit [facility] Start: 08-10-2021 Non-patient / [facility] Start: 08-10-2021 Non-patient / Non-visit [facility] Start: 08-09-2021 Non-patient / Non-visit [facility] Start: 08-09-2021 Non-patient / Non-visit [facility] Start: 08-08-2021 End: 08-10-2021 Evaluation and management of inpatient [facility]-Progressive Care Unit Start: 08-05-2021 Non-patient / Non-visit [facility] Start: 08-02-2021 End: 08-02-2021 Emergency department patient visit [facility]-Emergency Department Start: 06-30-2021 End: 06-30-2021 Patient encounter procedure [facility]-Outpatient Breast Imaging Start: 06-30-2021 End: 06-30-2021 Emergency department patient visit [facility]-Emergency Department Start: 12-19-2018 End: 12-20-2018 Patient encounter procedure [facility] Procedures Date Procedure Procedure Detail Performing Clinician Start: 03-05-2025 Plain x-ray of pelvis and lower extremity Dr. Kanika Mike DO Work Phone: Start: 01-24-[address] Kanika Mike DO Work Phone: Start: 01-24-2025 Urnls dip stick/tablet reagent auto microscopy Dr. Kanika Mike DO Work Phone: Start: 01-01-2025 MRI of lumbar spine Dr. Kanika Mike DO Work Phone: Start: 12-17-2024 X-ray of lumbosacral spine Dr. Kanika coffey DO Work Phone: Start: 07-26-[address] Kanika Mike DO Work Phone: Start: 07-26-[address] Kanika Mike DO Work Phone: Start: 10-04-2023 Dual energy X-ray absorptiometry Start: 09-19-2023 Screening mammography Start: 08-11-2022 Plain chest X-ray Kanika Mike Start: 07-01-2022 Screening mammography Kanika Mike Start: 05-11-2022 Cardiovascular stress test using pharmacologic stress agent Kanika Mike Start: 11-20-2021 Ecg routine ecg w/least 12 lds i&r only Start: 08-26-2021 Plain chest X-ray Kanika Mike Start: 08-16-2021 Plain chest X-ray Kanika Mike Start: 08-08-2021 Plain chest X-ray Kanika Mike Start: 08-02-2021 Plain chest X-ray Kanika Mike Start: 06-30-2021 Dual energy X-ray absorptiometry Kanika Murray Start: 06-30-2021 Screening mammography Kanika Mike Start: 06-30-2021 CT of head without contrast Kanika mcneal Start: 08-17-2016 End: 08-17-2016 *CMP Complete Metabolic Panel Gopi Clara Astorga DO Start: 08-17-2016 End: 08-19-2016 *SPEP (Serum Protein Electrophoresis) Gopi Astorga DO Start: 08-17-2016 End: 08-19-2016 *UPEP Gopi Astorga DO Start: 08-17-2016 End: 08-19-2016 [id number] [Mass/volume] in Serum or Plasma Gopinatalee Hidalgoa DO Start: 08-17-2016 End: 08-19-2016 IgA [Mass/volume] in Serum or Plasma Gopinatalee Hidalgoa DO Start: 08-17-2016 End: 08-19-2016 IgG [Mass/volume] in Serum or Plasma Gopi Hidalgoa DO Start: 08-17-2016 End: 08-19-2016 IgM [Mass/volume] in Serum or Plasma Gopinatalee Hidalgoa DO Start: 11-18-2015 End: 11-18-2015 *CMP Complete Metabolic Panel Gopi Clara Hidalgoa DO Start: 11-18-2015 End: 11-20-2015 [id number]-[id number] [Mass/volume] in Serum or Plasma Gopi Clara Hidalgoa DO History of cholecystectomy S/P cholecyste ctomy Dr. 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 SARS-CoV-2 & FLU Antigen (Rapid) Kanika Mike Plan of Treatment Date Care Activity Detail Author Start: 12-17-2024 X-ray of lumbosacral spine L/S Spine Min 4 Views [facility] Start: 12-17-2024 XR Spine Lumbar and Sacrum GE 4 Views [facility] Start: 12-07-2024 End: 12-07-2024 Evaluation of diagnostic study results [facility] Start: 07-31-2024 Anes nerve muscle tdn fascia&bursa forearm wrist ANESTH LOWER ARM SURGERY [facility] Start: 07-31-2024 Tendon sheath incision INCISE FINGER TENDON SHEATH [facility] Start: 07-31-2024 Application of ice collar, cap or bag [facility] Start: 07-31-2024 Elevation of affected extremity [facility] Start: 07-31-2024 Patient discharge [facility] Start: 07-31-2024 Catheterization of vein [facility] Start: 07-31-2024 Following clinical pathway protocol [facility] Start: 07-31-2024 Procedure discontinued [facility] Start: 07-31-2024 Taking patient vital signs [facility] Start: 07-31-2024 Vital signs measurements [facility] Start: 07-31-2024 [facility] Start: 07-31-2024 Medication education [facility] Start: 07-26-2024 Egd removal tumor polyp/other lesion snare tech EGD REMOVE LESION SNARE [facility] Start: 07-26-2024 Egd transoral biopsy single/multiple EGD BIOPSY SINGLE/MULTIPLE [facility] Start: 07-26-2024 Ercp remove calculi/debris biliary/pancreas duct ERCP REMOVE DUCT CALCULI [facility] Start: 07-26-2024 Ercp remove foreign body/stent biliary/panc duct ERCP REMOVE FORGN BODY DUCT [facility] Start: 07-26-2024 Ercp w/sphincterotomy/papill otomy ENDO CHOLANGIOPANCREATOGRAPH [facility] Start: 07-26-2024 Patient discharge [facility] Start: 08-11-2022 [facility] Start: 02-25-2022 [facility] Start: 02-23-2022 DIABETES SCREEN DIABETES SCREEN [facility] Start: 06-27-2021 ADVANCE DIRECTIVE DISCUSSION ADVANCE DIRECTIVE DISCUSSION [facility] Start: 05-26-2017 End: 05-26-2017 Appointment Appointment [facility] Medicine [facility] Orthopaedics Work Phone: Start: 08-17-2016 End: 02-17-2016 *CBC with Differential *CBC with Differential [facility] Medical [facility] Sports Medicine [facility] Orthopaedics Work Phone: Start: 08-17-2016 End: 08-17-2016 *CMP Complete Metabolic Panel *CMP Complete Metabolic Panel [facility] Work Phone: Start: 08-17-2016 End: 08-19-2016 *SPEP (Serum Protein Electrophoresis) *SPEP (Serum Protein Electrophoresis) [facility] Work Phone: Start: 08-17-2016 End: 08-19-2016 *UPEP *UPEP [facility] Work Phone: Start: 08-17-2016 End: 08-19-2016 [id number] *B2MIC - Beta-[address] [facility]opa[facility] Work Phone: Start: 08-17-2016 End: 08-19-2016 IgA *MOHIT Immunoglobulin A (IgA) [facility] Work Phone: Start: 08-17-2016 End: 08-19-2016 IgG *IMG Immunoglobulin G (IgG) [facility] Work Phone: Start: 08-17-2016 End: 08-19-2016 IgM *IMM Immunoglobulin (IgM) [facility] Medicine [facility] Orthopa[facility] Work Phone: Start: 02-17-2016 End: 11-20-2015 *CBC with Differential *CBC with Differential [facility] Medicine [facility] Orthopa[facility] Work Phone: Start: 02-17-2016 End: 11-20-2015 *CMP Complete Metabolic Panel *CMP Complete Metabolic Panel [facility] Work Phone: Start: 02-17-2016 End: 11-20-2015 *SPEP (Serum Protein Electrophoresis) *SPEP (Serum Protein Electrophoresis) [facility] Work Phone: Start: 02-17-2016 End: 11-20-2015 *UPEP *UPEP [facility] Work Phone: Start: 02-17-2016 End: 11-20-2015 [id number] *B2MIC - Beta-[address] [facility] Work Phone: Start: 11-18-2015 End: 08-20-2015 *CBC with Differential *CBC with Differential [facility] Medicine and Orthopaedics Work Phone: Start: 11-18-2015 End: 11-18-2015 *CMP Complete Metabolic Panel *CMP Complete Metabolic Panel [facility] Work Phone: Start: 11-18-2015 End: 08-20-2015 *MISC - Miscellaneous Lab Test #1 *MISC - Miscellaneous Lab Test #1 [facility] Work Phone: Start: 11-18-2015 End: 08-20-2015 *SPEP (Serum Protein Electrophoresis) *SPEP (Serum Protein Electrophoresis) [facility] Work Phone: Start: 11-18-2015 End: 11-20-2015 Soua-[id number] *B2MIC - Beta-[address] [facility] Work Phone: Start: 11-18-2015 End: 11-20-2015 Rheumatology Referral [facility], [address] [place] [address], [place], [address] [facility] Work Phone: Start: 08-19-2015 End: 05-20-2015 *CBC with Differential *CBC with Differential [facility] Sports Medicine and Orthopaedics Work Phone: Start: 08-19-2015 End: 05-20-2015 *CMP Complete Metabolic Panel *CMP Complete Metabolic Panel [facility] Work Phone: Start: 08-19-2015 End: 05-20-2015 *SPEP (Serum Protein Electrophoresis) *SPEP (Serum Protein Electrophoresis) [facility] Work Phone: Start: 08-19-2015 End: 05-20-2015 Erythrocyte sedimentation rate *Sedimentation Rate (ESR) [facility] Work Phone: Start: 08-19-2015 End: 05-20-2015 Lactate dehydrogenase (LDH) *LDH -LDH (Lactate Dehydrogenase) [facility] Work Phone: Start: 08-19-2015 End: 05-20-2015 Urate *Uric Acid Blood [facility] Work Phone: Start: 2015 BONE DENSITY BONE DENSITY [facility] Start: 2015 zzPNEUMOVAX AGE 65 AND OVER WITH 5YR LOOKBACK (Retired) (#1) zzPNEUMOVAX AGE 65 AND OVER WITH 5YR LOOKBACK (Retired) (#1) [facility] Start: 06-17-2014 End: 06-17-2014 EMG EMG [facility] Work Phone: Start: 06-17-2014 End: 06-17-2014 Nerve Conduction Nerve Conduction [facility] Work Phone: Start: 03-12-2014 End: 03-12-2014 EMG EMG [facility] Work Phone: Start: 03-12-2014 End: 03-12-2014 Nerve Conduction Nerve Conduction [facility] Work Phone: Start: 03-12-2014 End: 03-12-2014 Radex hand minimum 3 views X-Ray, Hand [facility] Work Phone: Start: 2000 SHINGRIX VACCINE (1 of 2) SHINGRIX VACCINE (1 of 2) [facility] Start: 1995 COLOGUARD (FIT-DNA) COLOGUARD (FIT-DNA) [facility] Start: 1995 Colonoscopy COLONOSCOPY [facility] Start: 1995 COLORECTAL CANCER SCREENING COLORECTAL CANCER SCREENING [facility] Start: [address] COLONOGRAPHY [facility] Start: 1995 FECAL OCCULT BLOOD FECAL OCCULT BLOOD [facility] Start: 1995 LIPID SCREEN LIPID SCREEN [facility] Start: 1995 SIGMOIDOSCOPY SIGMOIDOSCOPY [facility] Start: 1990 Mammography MAMMOGRAM [facility] Start: 1969 Urine microalbumin profile DTAP,TDAP,TD (1 - Tdap) [facility] Start: 1962 Adult depression screening assessment DEPRESSION SCREENING [facility] Start: 1955 COVID-19 VACCINE (#1) COVID-19 VACCINE (#1) [facility] NM Heart Views W str ess and W radionuclide IV [facility] Work Phone: Patient Education [facility] Work Phone: Patient referral [facility] Work Phone: Immunizations Immunization Date Immunization Notes Care Provider Fa cility 04-16-2024 influenza, high dose seasonal, preservative-free Dr. Kanika Mike DO Work Phone: [facility] 02-25-2021 Influenza virus vaccine [facility] 03-26-2020 tetanus toxoid, redu shannan diphtheria toxoid, and acellular pertussis vaccine, adsorbed Kanika [facility] 04-10-2018 Influenza virus vaccine [facility] Payers Date Payer Category Payer Self-pay [id number] 2018 Medicare MMO MEDICARE MMO MEDADVANTAGE PPO [id number] 2018-Present [phone] [address] [place] [address] PPO [id number] 1959 Unknown [id number] 1950 Unknown [id number] [id number] 8 1950 Unknown [id number] 2.16.840.1.593955.3.579.2.90 2 Unknown [id number] 2.16.840.1.800376.3.579.2.46 2 Unknown [id number] 2.16.840.1.688176.3.579.2.46 2 Unknown [id number] 2.16.840.1.120564.3.579.2.46 2 Unknown [id number] 2.16.840.1.149159.3.579.2.46 2 Unknown [id number] 2.16.840.1.128490.3.579.2.46 2 Unknown [id number] 2.16.840.1.714307.3.579.2.46 2 Unknown [id number] 2.16.840.1.641440.3.579.2.46 2 Unknown [id number] 2.16.840.1.298627.3.579.2.46 2 Unknown [id number] 2.16.840.1.926296.3.579.2.46 2 Unknown [id number] 2.16.840.1.001066.3.579.2.46 2 Unknown [id number] 2.16.840.1.433460.3.579.2.46 2 Unknown [id number] 2.16.840.1.571541.3.579.2.46 2 Unknown [id number] 2.16.840.1.939364.3.579.2.46 2 Unknown [id number] 2.16.840.1.253498.3.579.2.46 2 Unknown [id number] 2.16.840.1.356278.3.579.2.46 2 Unknown [id number] 2.16.840.1.651273.3.579.2.46 2 Unknown [id number] 2.16.840.1.342348.3.579.2.46 2 Unknown [id number] 2.16.840.1.394154.3.579.2.46 2 Unknown [id number] 2.16.840.1.172278.3.579.2.46 2 Unknown [id number] 2.16.840.1.993203.3.579.2.46 2 Unknown [id number] 2.16.840.1.653922.3.579.2.46 2 Social History Date Type Detail Facility Start: 08-26-2021 End: 10-10-2023 Tobacco smoking status ALIS Unknown if ever smoked [facility] Start: 08-10-2018 None [facility] Start: 03-26-2020 With Family [facility] Start: 11-23-2018 Non-smoker [facility] Start: 1950 Sex Assigned At Female [facility] Start: 07-19-2024 Tobacco smoking status ALIS Never smoked tobacco [facility] Start: 08-28-2020 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 intake 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 (finding) [facility] Start: 1950 Sex Assigned At Not on file [facility] Start: 09-20-2024 Sex Female (finding) [facility] Sex Female [facility] NEGATED: Highlighted row Not [facility] Medical Equipment Procedure Code Equipment Code Equipment Original Text Equipment Identifier Dates Total cholecystectomy with exploration of common bile duct CLIP,HEMJOSHUA [employer]ds[employer] | [employer] FDA Start: 04-24-2024 Total cholecystectomy with exploration of common bile duct CLIP,HEMJOSHUA [employer] | [employer] FDA Start: 04-24-2024 Total cholecystectomy with exploration of common bile duct CLIP,HEMJOSHUA [employer] JOSEFA FDA Start: 04-24-2024 Total cholecystectomy with exploration of common bile duct CLIP,HEMJOSHUA [employer] JOSEFA FDA Start: 04-24-2024 Total cholecystectomy with exploration of common bile duct CLIP,MICHAEL RIVERO FDA Start: 04-24-2024 Total cholecystectomy with exploration of common bile duct CLIP,MICHAEL RIVERO FDA Start: 04-24-2024 Total cholecystectomy with exploration of common bile duct CLIP,MICHAEL RIVERO FDA Start: 04-24-2024 Total cholecystectomy with exploration of common bile duct CLIP,MICHAEL RIVERO FDA Start: 04-24-2024 Total cholecystectomy with exploration of common bile duct CLIP,MICHAEL RIVERO FDA Start: 04-24-2024 Total cholecystectomy with exploration of common bile duct CLIP,MICHAEL RIVERO FDA Start: 04-24-2024 Total cholecystectomy with exploration of common bile duct CLIP,MICHAEL RIVERO FDA Start: 04-24-2024 Total cholecystectomy with exploration of common bile duct CLIP,MICHAEL RIVERO FDA Start: 04-24-2024 Total cholecystectomy with exploration of common bile duct CLIP,MICHAEL RIVERO FDA Start: 04-24-2024 Total cholecystectomy with exploration of common bile duct CLIP,MICHAEL RIVERO FDA Start: 04-24-2024 Total cholecystectomy with exploration of common bile duct CLIP,MICHAEL RIVERO FDA Start: 04-24-2024 Total cholecystectomy with exploration of common bile duct CLIP,MICHAEL RIVERO FDA Start: 04-24-2024 ERCP (endoscopic retrograde cholangiopancreatograph y) ([id number]) Polymeric biliary stent, non-bioabsorbable ([id number] FDA Start: 04-16-2024 Goals Date Patient Goal Desired Activity /State Functional Status Date Assessment Result Facility 08-10-2021 Functional status Ambulates;Up ad addison [facility] Work Phone: 08-10-2021 Functional status None [facility] Work Phone: Mental Status Date Assessment Result Facility 07-31-2024 Cognitive function Voice/Name [facility] Work Phone: 07-26-2024 Cognitive function Voice/Name [facility] Work Phone: 08-11-2022 Cognitive function Level Of Cons ciousness Awake;Alert;Appropriate;Follow s Commands [facility] Work Phone: 08-26-2021 Cognitive function Level Of Cons ciousness Awake;Alert;Appropriate;Follow s Commands [facility] Work Phone: 08-16-2021 Cognitive function Level Of Cons ciousness Awake;Alert;Appropriate;Follow s Commands [facility] Work Phone: 08-10-2021 Cognitive function Voice/Name [facility] Work Phone: 08-02-2021 Cognitive function Level Of Cons ciousness Awake;Alert;Appropriate;Follow s Commands [facility] Work Phone: 06-30-2021 Cognitive function Level Of Cons ciousness Awake;Alert;Appropriate;Follow s Commands [facility] Work Phone: Clinical Notes 08-28-2020 to 03-05-2025 Note Date & Type Note Facility 03-05-2025 Radiology Diagnostic study note [facility] Imaging Services [address], [place] [address] HIP, UNI W/ Pelvis 2-3 Views MR#: [id number] Acct: [id number] Name: CHELSEY BELTRAN Rep #: [id number] : 1950 F 74 From: Niraj Arellano MD PCP: Dr. Kanika Mike, DO Status: REG CLI Study:HIP, UNI W/ Pelvis 2-3 Views Date of Ex am: 03/05/25 Exam# [id number] Ordering Dr: Charlie Reed MD PROCEDURE: HIP, UNI W/ PELVIS 2-3 VIEWS 03/05/2025 REASON FOR EXAM: HIP PAIN TECHNIQUE: Procedure Code: RADHP Modality: DX Procedure: HIP, UNI W/ PELVIS 2-3 VIEWS Laterality: COMPARISON: 09/29/2020. FINDINGS: No evidence of acute fracture or dislocation. Severe right and mild left hip osteoarthrosis. Degenerative changes of the partially visualized spine. RAD/HIP, UNI W/ Pelvis 2-3 Views IMPRESSION: Xixmw-fvqvrlk-[id number]-left hip osteoarthrosis. Reading Location: [id number] CC: Dr. Kanika Mike, DO; Dr. 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 December 07, 2024 1:13pm Essential hypertension chronic Ju ne 2024 1:13pm HLD (hyperlipidemia) chronic December 07, 2024 1:13pm Paroxysmal atrial fibrillation chron ic December 07, 2024 1:13pm 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 acute December 17, 2024 2:33pm Lumbar stenosis with neuroge philippe claudication acute December 17, 2024 2:33pm Spondylolisthesis of lumbar region a cute December 17, 2024 2:33pm [facility] Work Phone: 1(466) 953-860606-13-2025 Evaluation note* Diagnosis Onset Date Resolution Status Admit Date 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 December 07, 2024 1:13pm Essential hypertension chronic Ju ne 2024 1:13pm HLD (hyperlipidemia) chronic December 07, 2024 1:13pm Paroxysmal atrial fibrillation chron ic December 07, 2024 1:13pm 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 acute December 17, 2024 2:33pm Lumbar stenosis with neuroge philippe claudication acute December 17, 2024 2:33pm Spondylolisthesis of lumbar region a cute December 17, 2024 2:33pm Arthritis of right hip acute Ju ly 2024 2:56pm 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 acute January 09, 2025 2:56pm Lumbar stenosis with neuroge philippe claudication acute January 09, 2025 2:56pm Osteoporosis acute January 09, 2 025 2:56pm Spondylolisthesis of lumbar region a cute January 09, 2025 2:56pm [facility] Work Phone: 1(229) 572-513102-17-2025 Evaluation note* Diagnosis Onset Date Resolution Status Admit Date Orthopedic aftercare acute Febr uary 2024 12:45pm [facility] Work Phone: 1(850) 516-867402-04-2025 [facility] Medical Records Department [address] [place] [id number] History Physical Exam 07/31/24 0703 MR#: [id number] Acct: [id number] Name: ABDIRIZAKGALI ARNOLDHubert Gaspar Rep #: [id number] : 1950 74 From: Raj Walker DO PCP: Dr. Kanika Mike DO Status:[facility] Location: [place] [address] History and Physical Date of Admission: 07/31/24 [facility] [address] [place] [address] OFFICE VISIT Date of Service: 07/04/24 MR#: [id number] Acct: [id number] Name: UNRULYCHELSEY A Rep #: [id number] : 1950 Provider: Dr. Raj Walker DO Age/Sex: 73/F [place] [facility] [place]: Signed Intake Vital Signs 04/24/2412:20 Height 5 ft 1 in Intake Visit Reasons: RIGHT HAND Chief Complaint: post cholecystectomy Allergies clarithromycin (From Biaxin) Allergy (Verified 07/04/24 11:30) Rashsulfamethoxazole (From Bactrim) Allergy (Verified 07/04/24 11:30) Rashtrimethoprim (From Bactrim) Allergy (Verified 07/04/24 11:30) Rashcarvedilol (From Coreg) Adverse Reaction (Intermediate, Verified 07/04/24 11:30) Nausea, Lightheadedcodeine Adverse Reaction (Verified 07/04/24 11:30) Upset Stomachlisinopril Adverse Reaction (Verified 07/04/24 11:30) coughPenicillins Adverse Reaction (Verified 07/04/24 11:30) Other Medications ???Medication ???Instructions ???Recorded ???Confirmed ???Type levothyroxine 50 mcg tablet 50 mcg PO DAILY Thyroid 12/31/16 07/04/24 History acetaminophen 500 mg tablet 500 - 1,000 mg PO DAILY PRN PRN 08/06/20 07/04/24 History Pain 1-10 Or Fever potassium chloride 20 mEq 20 meq PO DAILY supplement 09/22/20 07/04/24 History tablet,extended release(part/cryst) omeprazole 40 mg capsule,delayed 40 mg PO DAILY gerd 08/05/21 07/04/24 History release atorvastatin 80 mg tablet 80 mg PO QHS cholesterol 08/08/21 07/04/24 History hydrochlorothiazide 25 mg tablet 25 mg PO DAILY diuretic 08/28/21 07/04/24 History cholecalciferol (vitamin D3) 50 2,000 unit PO DAILY SUPPLEMENT 04/05/22 07/04/24 History mcg (2,000 unit) capsule metoprolol tartrate 50 mg tablet 50 mg PO BID this is a dose 09/28/23 07/04/24 Rx increase #180 tabs mecobalamin (vitamin B12) 1,000 1,000 mcg sublingual DAILY 10/26/23 07/04/24 History mcg disintegrating supplement tablet,sublingual losartan 25 mg tablet 25 mg PO DAILY blood pressure #90 06/18/24 07/04/24 Rx tabs Have you fallen in the past year?: No [facility] History Wears glasses Post-menopausal Thyroid disease Rheumatoid arthritis Ambulates with cane Polymyalgia rheumatica High cholesterol Giant cell arteritis Ulcerative colitis Non-smoker History of atrial fibrillation History of echocardiogram History of stress test Cardiology follow-up encounter Hypertension CAD (coronary artery disease) COVID-19 ( 06/2021) History of RI (myocardial infarction) History of coronary artery disease Essential hypertension Monoclonal gammopathy of unknown significance (MGUS) Monoclonal gammopathy Temporal arteritis Osteoarthritis of left shoulder Asthma HLD (hyperlipidemia) HTN (hypertension) Atherosclerotic heart disease 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 Acute ST elevation myocardial infarction GERD (gastroesophageal reflux disease) Hypothyroidism 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 Retinal tear of left eye Ulnar neuropathy Polyclonal gammopathy GERD (gastroesophageal reflux disease) IBS (irritable bowel syndrome) Vitamin D deficiency Osteopenia Incontinence Knee pain PVC's (premature ventricular contractions) SOB (shortness of breath) Arthritis Surgical History S/P cholecystectomy History of cataract extraction with lens replacement History of coronary artery stent placement History of cardiac catheterization History of ERCP History of temporal artery biopsy ( 12/2018) History of delivery Stented coronary artery (06/20/18) History of dilatation and curettage Hx of breast biopsy Hx of tonsillectomy Family History Mother Cancer skin AnemiaFather Cancer Heart disease Social History Smoking Status: Never smoker alcohol intake: never substance use type: does not use caffeine: No HPI RIGHT HAND Details: This documentation accurately reflects the service provided and the decisions made by me, Dr. Raj Walker, DO 07/04/24 0820. Part of today???s visit was documented by (more content not included)...[facility]01-30-2025 [facility] Medical Records Department [address] [place] [address] History Physical Exam 07/26/24 1216 MR#: [id number] Acct: [id number] Name: CHELSEY BELTRAN Hubert Rep #: [id number] : 1950 74 From: Denton Friend DO PCP: Dr. Kanika Mike, DO Status:[facility] [place] Location: [place] [address] HPI - General General Date of Admission: 07/26/24 Date of Service: 07/26/24 Chief Complaint: Biliary stent removal HPI Narrative CHELSEY BELTRAN, is a 74 F who presentsTERJOSE ROBERTO BELTRAN, is a 73 F who presents today for stent to be removed. - CCX - 04/24/2024 abdominal pain/nausea/vomiting and on workup was found to have cholelithiasis, choledocholithiasis status post ERCP last week. Laparoscopic cholecystectomy was elected. - occasional abdominal spasms - gnawing on itself - denies any emesis - burning - improves with eating - gurgling exacerbated post OP - was having rock hard stools prior to CCX with occasional urgent watery diarrhea - now stools are soft/formed 1-2x a day - denies any HB - denies any N/V - denies any weight loss - she reports she has been taking Omeprazole 40mg ( 2 capsules) every morning - reports she has been on this dose for awhile - She reports fecal urgency has resolved and has been able to liberate her diet. - urgency with diarrhea was infrequent prior to CCX - She is now having a BM 1-2x a day and stools are soft formed, which is an improvement from rock hard stools she was having QD to QOD prior to CCX - She continues to avoid fatty/fried foods - no longer taking Eliquis or ASA PFSH Medical History Wears glasses Post-menopausal Rheumatoid arthritis Ambulates with cane Polymyalgia rheumatica High cholesterol Giant cell arteritis Ulcerative colitis Non-smoker History of atrial fibrillation History of echocardiogram History of stress test Cardiology follow-up encounter Hypertension CAD (coronary artery disease) COVID-19 ( 06/2021) History of coronary artery disease Monoclonal gammopathy of unknown significance (MGUS) Monoclonal gammopathy Temporal arteritis Osteoarthritis of left shoulder Asthma HLD (hyperlipidemia) HTN (hypertension) Atherosclerotic heart disease 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 Acute ST elevation myocardial infarction GERD (gastroesophageal reflux disease) Hypothyroidism 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 Retinal tear of left eye Ulnar neuropathy Polyclonal gammopathy IBS (irritable bowel syndrome) Vitamin D deficiency Osteopenia Incontinence Knee pain PVC's (premature ventricular contractions) SOB (shortness of breath) Arthritis Home Medications ???Medication ???Instructions ???Recorded ???Last Taken ???Type levothyroxine 50 mcg tablet 50 mcg PO DAILY Thyroid 12/31/16 0 07/26/24 History acetaminophen 500 mg tablet 500 - 1,000 mg PO DAILY PRN PRN 08/01/20 History Pain 1-10 Or Fever potassium chloride 20 mEq 20 meq PO DAILY supplement 1 08/08/21 History tablet,extended release(part/cryst) omeprazole 40 mg capsule,delayed 40 mg PO BID gerd 08/05/21 5 History release atorvastatin 80 mg tablet 80 mg PO QHS cholesterol 08/08/21 04/14/24 History hydrochlorothiazide 25 mg tablet 25 mg PO DAILY diuretic 08/28/21 1 History cholecalciferol (vitamin D3) 50 2,000 unit PO DAILY SUPPLEMENT 04/1704/13/24 History mcg (2,000 unit) capsule metoprolol tartrate 50 mg tablet 50 mg PO BID BP #180 tabs 09/28/23 04/14/24 Rx mecobalamin (vitamin B12) 1,000 1,000 mcg sublingual DAILY 4 04/13/24 History mcg disintegrating supplement tablet,sublingual losartan 25 mg tablet 25 mg PO DAILY blood pressure #90 06/18/24 07/26/24 Rx tabs Allergy/AdvReac Type Severity Reaction Status Date / Time clarithromycin (From Biaxin) Allergy Rash Verified 07/19/24 14:40 sulfamethoxazole (From Allergy Rash Verified 07/19/24 14:40 Bactrim) trimethoprim (From Bactrim) Allergy Rash Verified 07/19/24 14:40 carvedilol (From Coreg) AdvReac Intermediate Nausea, Verified 07/19/24 14:40 Lightheaded codeine AdvReac Upset Verified 07/19/24 14:40 Stomach lisinopril AdvReac cough Verified 07/19/24 14:40 Penicillins AdvReac Other Verified 07/19/24 15:27 Family History Mother Cancer skin Anemia Father Cancer Heart disease Surgical History History of ERCP Hx laparoscopic cholecystectomy S/P cholecystectomy History of cataract extraction with lens replacement History of coronary artery stent placement History of cardiac catheterization History of temporal artery biopsy ( 12/2018) History of delivery Stented coronary (more content not included)...[facility] 05-28-2024 Evaluation note* Diagnosis Onset Date Resolution Status Admit Date Choledocholithiasis with acu te cholecystitis with obstruction acute D ec4 9:39am Elevated liver enzymes acute De cember 2023 9:39am S/P cholecystectomy acute Decem nehemias 2023 9:39am Trigger finger of right hand acute July 04, 2024 11:24am Choledocholithiasis with acu te cholecystitis with obstruction acute J anuary 2024 11:15am Orthopedic aftercare acute Febr uary 2024 12:45pm [facility] Work Phone: 1([phone]) 170-543610-29-2024 [facility] Medical Records Department [address] [place] [address] History Physical Exam 04/24/24 1211 MR#: [id number] Acct: [id number] Name: CHELSEY BELTRAN Rep #: [id number] : 1950 73 From: Opal Whitehead MD PCP: Dr. Kanika Mike, DO Status:[facility] Location: [place] [address] History and Physical Date of Admission: 04/24/24 04/17/24 1237 MR#: [id number] Acct: [id number] Name: CHELSEY BELTRAN : 1950 [address] Opal Whitehead MD on 04/17/24 at 1509 Addendum Patient seen and examined and agree with the Therese Best's note. Patient tolerated lunch with no issues. Will plan for outpatient laparoscopic cholecystectomy. Reviewed the anatomy with the patient and discussed the procedure: laparoscopic cholecystectomy with possible cholangiograms, possible open. Review risks including but not limited to bleeding, infection, hernia, bile leak, retained gallstones requiring another procedure ERCP- Endoscopic Retrograde Cholangiopancreatography, injury to another organ (bile ducts, common bile duct, small bowel, etc.) and conversion to an open procedure. All questions were answered. Opal Whitehead M.D. Pager: [phone] [facility] [address] [place], [place] [address], [address] [place] [address] Office: [phone] 04/17/24 9422 Signed Assessment Plan Assessment/Plan (1) Elevated liver enzymes: (2) Cholelithiasis: QUALIFIERS: Cholelithiasis location: gallbladder Cholecystitis presence: without cholecystitis Biliary obstruction: with biliary obstruction Qualified Code(s): K80.21 - Calculus of gallbladder without cholecystitis with obstruction (3) Choledocholithiasis: PLAN: Plan I have been consulted in conjunction with Dr. Whitehead. She will independently evaluated this patient. Patient presents with a single episode of right upper quadrant pain caused by choledocholithiasis. Patient had an ERCP with stent placement yesterday. Patient's RUQ u/s does demonstrate gallstones within the gallbladder. Patient notes her pain has resolved at the time of this evaluation. Medicine will trial patient with a regular cardiac diet. If this does not cause symptoms, patient will be discharged to home. If her diet were to cause continued symptoms and pain, Dr. Whitehead will plan to perform a cholecystectomy. It has been reviewed with the patient that if she were discharged today, Dr. Whitehead will plan to perform a laparoscopic cholecystectomy with intraoperative cholangiogram as an outpatient. Patient is scheduled for Wednesday, April 24, [address] Whitehead. Procedure details, risks and benefits have been explained. A surgical book and wash along with post-operative instructions were provided to the patient. Patient has had the opportunity to ask and have questions answered. Patient will hold her aspirin 1 week prior to the procedure. Patient verbally understands agrees with the plan. Thank you for allowing us to participate in this patient's care. HPI Consult Data Date of Consult: 04/17/24 HPI Narrative Reason for Consultation: Right upper quadrant pain; choledocholithiasis HPI Narrative: CHELSEY BELTRAN, is a 73 F who presents with a 3 day history of abdominal pain. Patient notes having persian food, grilled chicken and vegetables, on . She noted that night she felt bloated. She had nausea and ended up vomiting to feel better. She notes eating light on Tuesday and Tuesday. She notes on Tuesday the abdominal pain became more present and she decided to come to the ED. Patient notes she has never had any issues with her gallbladder previously. She notes her previous abdominal surgical history includes a single . She notes a history of a myocardial infarction in 2018. She had [address] Warner at that time. She notes only blood thinner is aspirin. She states her student finance advisor is Dr. Davila. She notes recently having cataract surgery on April 09 and March 26 2024. She notes a history of asthma for which she has not had to use an inhaler for. She notes a history of ulcerative colitis at the age of 15. She has not had any further flare-ups. She notes her last colonoscopy was a while ago, unsure of the date. RUQ u/s demonstrated cholelithiasis. CBD measures 7mm. No pericholecystic fluid, negative Redding's sign. Normal distended gallbladder. Liver enzymes elevated with T. Bili at 3, AST 423, ALT 618, Alk Phos [address] Morgan performed an ERCP with stent placement on 04/16/24 which showed short-segment Davidson's disease multiple gastric polyps, Choledocholithiasis was encountered and removal was complete with one stent placed. [facility] Medical History COVID-19 ( 06/2021) History of RI (myocardial inf (more content not included)...[facility]02-15-[address] Infante [facility] August 11, 2022 10:20pm Note Date/Time August 11, 2022 10:03pm [facility] Medical Records Department [address] [place] [address] Emergency Department Summary 08/11/22 MR#: [id number] Acct: [id number] Name: CHELSEY BELTRAN Rep #:[id number] : 1950 72 From: Mikhail Infante MD PCP: Kanika Mike Status:[facility] ER Location: ED HPI History of Present Illness Chief Complaint: General Illness Informant: patient Narrative Narrative: Patient presents after feeling ill for about 7 to 8 days. Her has the same symptoms but is sicker. Patient states that she does not have any muscle aches. She has a scratchy throat but not a sore throat. She has had a cough but no productivity. She is not actually short of breath. However, occasionally she coughs very hard and itis hard to catch her breath for a moment. No hemoptysis. No chest pain. She has no abdominal pain. She has had some mild nausea but she has Zofran at home that helps a lot and she still has the med. No diarrhea at this time but she had some in the first few days. She states she is able to eat but looking at food just makes her feel disgusted so her appetite is down. She is drinking fluids. [facility] Medical History Acute ST elevation myocardial infarction Arthritis Asthma Atherosclerotic heart disease 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 COVID-19 (~06/2021) Essential hypertension GERD (gastroesophageal reflux disease) GERD (gastroesophageal reflux disease) History of coronary artery disease History of RI (myocardial infarction) HLD (hyperlipidemia) HTN (hypertension) Hypothyroidism IBS (irritable bowel syndrome) Incontinence Knee pain Monoclonal gammopathy Monoclonal gammopathy of unknown significance (MGUS) M?ni?re's disease Osteoarthritis of left shoulder Osteopenia Polyclonal gammopathy PVC's (premature ventricular contractions) Retinal tear of left eye SOB (shortness of breath) Temporal arteritis Ulnar neuropathy Vitamin D deficiency Home Medications levothyroxine 50 mcg tablet 50 mcg PO DAILY Thyroid 12/31/16 [History Last Taken 08/08/21] metronidazole 0.75 % topical cream 1 applicatio topical DAILY rosacea 68 days #135 grams 07/03/18 [History Last Taken 08/08/21] acetaminophen 500 mg tablet 500 - 1,000 mg PO DAILY PRN PRN Pain 1-10 Or Fever 08/06/20 [History Last Taken 08/01/20] aspirin 81 mg tablet,delayed release 81 mg PO DAILY@2000 heart 08/06/20 [History Last Taken 08/08/21] peg 400-propylene glycol 0.4 %-0.3 % eye drops 1 drp EACH EYE BID DRY EYE 08/06/20 [History Last Taken 08/08/21] potassium chloride 20 mEq tablet,extended release(part/cryst) 20 meq PO DAILY supplement 09/22/20 [History Last Taken 08/08/21] omeprazole 40 mg capsule,delayed release 40 mg PO DAILY gerd 08/05/21 [History Last Taken 08/08/21] atorvastatin 80 mg tablet 80 mg PO QHS cholesterol 08/08/21 [History Last Taken 08/07/21] hydrochlorothiazide 25 mg tablet 25 mg PO DAILY 08/28/21 [History Last Taken Unknown] diltiazem HCl 120 mg capsule,extended release 24 hr 120 mg PO BID #180 caps 10/01/21 [Rx Last Taken Unknown] metoprolol tartrate 50 mg tablet 50 mg PO BID this is a dose increase 10/07/21 [History Last Taken Unknown] cholecalciferol (vitamin D3) 50 mcg (2,000 unit) capsule 2,000 unit PO DAILY SUPPLEMENT 04/05/22 [History Last Taken Unknown] losartan 25 mg tablet 25 mg PO DAILY blood pressure #90 tabs 07/15/22 [Rx Last Taken Unknown] apixaban 5 mg tablet (Eliquis) 5 mg PO BID blood thinner #60 tabs 08/06/22 [Rx Last Taken Unknown] Allergy/AdvReac Type Severity Reaction Status Date / Time clarithromycin [From Biaxin] Allergy Rash Verified 08/11/22 18:59 sulfamethoxazole Allergy Rash Verified 08/11/22 18:59 [From Bactrim] trimethoprim [From Bactrim] Allergy Rash Verified 08/11/22 18:59 carvedilol [From Coreg] AdvReac Intermediate Nausea, Verified 08/11/22 18:59 Lightheaded codeine AdvReac Upset Verified 08/11/22 18:59 Stomach lisinopril AdvReac cough Verified 08/11/22 18:59 Penicillins AdvReac Other Verified 08/11/22 18:59 Family History Mother Cancer skin Anemia Father Cancer Heart disease Surgical History History of delivery History of dilatation and curettage History of temporal artery biopsy (~12/2018) Hx of breast biopsy Hx of tonsillectomy Stented coronary artery (06/20/18) Social History Smoking Status: Never smoker alcohol intake: never substance use type: does not use caffeine: No ROS ROS ED Constitutional Constitutional ED: Reports subjective Eyes Eyes: Denies change in vision ENT ENT ED: Reports rhinorrhea; Denies sore throat Cardiovascular Cardiovascular: Denies chest pain or palpitations Respiratory/Chest Respiratory/Chest: Reports cough; Denies dyspnea Gastrointestinal Gastrointestinal: Reports diarrhea and nausea; Denies abdominal pain or vomiting Genitourinary Genitourinary ED: Denies dysuria Musculoskeletal Musculoskeletal: Denies myalgias Integumentary Denies rash Neurologic Neurologic: Denies headache(s) Endocrine Endocrinology: Denies polydipsia or polyuria Hematologic/Lymphatic Hematologic/Lymphatic: Denies easy bleeding or easy bruising Allergic/Immunologic Allergic/Immunologic ED: Denies urticaria EXAM Physical Exam Narrative Exam Narrative: Patient is awake and alert. She is nontoxic. She looks reasonably comfortable in bed. She does carry on normal conversation. HEENT: No erythema. She has a little scratchiness of her voice but normal swallowing and handling secretions. No swelling. No sinus tenderness. Neck shows no JVD Lungs are actually clear. I hear no wheezing at all. No coughing while I am inthe room. She states the coughing normally starts when she sleeps at night. Heart does sound to be slightly irregular. Has a rate of about 100. But she does have atrial fibrillation. This is known. Her abdomen is soft normal bowel sounds nondistended and completely nontender. : No CVA or suprapubic tenderness No notable peripheral edema Neurologically patient is awake alert appropriate with no weakness. Const Vital Signs: 08/11/22 18:56 08/11/22 21:31 08/11/22 21:32 Temperature 97 F L Temperature Source Temporal Pulse Rate 120 H Respiratory Rate 18 18 Respiratory Effort Respiratory Pattern Blood Pressure 154/104 H Blood Pressure Mean 120 Pulse Ox 96 98 98 Oxygen Delivery Method Room Air Room Air Room Air 08/11/22 21:35 08/11/22 21:36 Temperature Temperature Source Pulse Rate 107 H Respiratory Rate 18 Respiratory Effort Short of Breath Respiratory Pattern Normal Blood Pressure 148/81 H Blood Pressure Mean 103 Pulse Ox 98 Oxygen Delivery Method Room Air MDM MDM MDM Narrative Medical decision making narrative: My independent interpretation of the patient's single view AP chest shows no infiltrate. Final reading by radiology is also no evidence of acute cardiopulmonary process. Patient CBC shows a low white count at 3.9 with which is consistent with her having positive COVID. Hemoglobin is minimally low. Platelets are normal. Potassium is a little bit low and will be replaced. This should improve as her diet improves also. Gap was slightly elevated bicarb was normal. No sign of acute kidney injury. We discussed options with the patient. She is not hypoxic. She is able to eat and drink. I do not think she requires admission. We will replace her potassium. I was going to give her a prescription of potassium for a few days. But I find that she is already on the potassium. Because her appetite has been down she has not been taking it. We have encouraged her to actually take this again. She states she has tried Tessalon Perles for cough and they do not help her. She has Ventolin for a nebulizer at home which does help the cough. But she requested a MDI as she does not currently have one. This will be written for here. Although her potassium is low she is not showing any significant weakness. She has actually been helping her around who is significantlyweak. I think she is reasonable to treat as an outpatient. She is toward the tail end of her COVID symptoms. She is beyond treatment with any of the antivirals. Lab Data Attestation: I reviewed the patient's lab results. Labs: Laboratory Results - last 24 hr 08/11/22 08/11/22 19:50 19:50 WBC 3.9 L RBC 4.53 Hgb 11.7 L Hct 37.1 MCV 81.9 MCH 25.8 L MCHC 31.5 L RDW Std Deviation 41.0 RDW Coeff of Agnieszka 13.7 Plt Count 193 MPV 9.6 Immature Gran % (Auto) 0.500 Neut % (Auto) 61.0 Lymph % (Auto) 23.7 [place] % (Auto) 13.2 H Eos % (Auto) 1.3 Baso % (Auto) 0.3 Absolute Neuts (auto) 2.4 Absolute Lymphs (auto) 0.93 Nucleated RBC % 0 Sodium 137 Potassium 2.8 L Chloride 94 L Carbon Dioxide 24.0 Anion Gap 19 H BUN 6 L Creatinine 0.73 Estim Creat Clear Calc 36.53 Est GFR (MDRD) Af Amer 101 Est GFR (MDRD) Non-Af 83 BUN/Creatinine Ratio 8.2 L Glucose 93 Calcium 9.0 Radiography Diagnostic Testing: Clinical Impression(s) from Imaging Studies Chest X-Ray 08/11/22 19:50 IMPRESSION: 1. No evidence of acute cardiopulmonary process Electronically Signed: Chico Dowell MD at 20:31 EST , Discharge Plan Triage Chief Complaint: General Illness ED Provider: Mikhail Infante Dx/Rx/DC Orders Clinical Impression: COVID, Hypokalemia Instructions: Coronavirus Disease 2019 (COVID-19): Caring for Yourself or Others, Hypokalemia Dc Prescriptions: No Action metronidazole 0.75 % cream 1 applicatio TOPICAL DAILY 68 Days Qty: 135 Rx Instructions: FOR ROSACEA cholecalciferol (vitamin D3) 50 mcg (2,000 unit) capsule 2,000 unit PO DAILY metoprolol tartrate 50 mg tablet 50 mg PO BID losartan 25 mg tablet 25 mg PO DAILY Qty: 90 3RF levothyroxine 50 MCG tablet 50 mcg PO DAILY potassium chloride 20 mEq tablet,ER particles/crystals 20 meq PO DAILY omeprazole 40 mg capsule,delayed release(DR/EC) 40 mg PO DAILY acetaminophen 500 MG tablet 500 - 1,000 mg PO DAILY PRN PRN (Reason: Pain 1-10 Or Fever) peg 400-propylene glycol 10 ML drops 1 drp EACH EYE BID aspirin 81 MG tablet 81 mg PO DAILY@2000 atorvastatin 80 mg tablet 80 mg PO QHS hydrochlorothiazide 25 mg tablet 25 mg PO DAILY diltiazem HCl 120 mg capsule,extended release 24hr 120 mg PO BID Qty: 180 3RF Eliquis 5 mg tablet 5 mg PO BID Qty: 60 11RF Primary Care Provider: Kanika Mike Referrals: Kanika Mike [Primary Care Provider] - 3-5 Days if not improving Disposition Disposition: Home, Self Care What to do if you have Problems For any increased pain, shortness of breath, bleeding, nausea or vomiting, chestpain, or any unexpected problems, contact your Primary Care Provider. Call [facility] ([phone]) or report to the closest Emergency Room. Call 911 if necessary. 08/11/222219 <Electronically signed by Mikhail Infante MD> Cosigner Signature (if applicable): CC: Kanika Mike ~ Signed [facility] Work Phone: [phone] 958-546403-04-2021 NoteHNO ID: [id number] Author: Brisa Yanez Service: ? Author Type: Nurse Practitioner Type: Progress Notes Filed: 08/28/2020 3:35 PM Note Text: Chelsey Beltran is a 70 year old female [...] medication updated:Yes EXAM: BP 127/72 Ht 5' 0" (1.52m) Wt 201 lb (91.2kg) BMI 39.26 kg/(m2). GENERAL: pleasant, female in no apparent distress CHEST: Normal inspiratory effort ABDOMEN: soft, non-tender and no masses PELVIC: external genitalia normal, normal Bartholin's glands, urethra, [place]'s glands, no vulvar lesions, no cervical lesions, [...] as needed. Brisa Gibbs (more content not included)...[facility] Diagnosis Onset Date Resolution Status Atrial fibrillation with rapid ventricular response resolved CHAMBERS (dyspnea on exertion) ac [place] Paroxysmal atrial fibrillation with RVR acute [facility] Work Phone: Evaluation noteNo assessment information available [facility] Work Phone: Evaluation note* Diagnosis Onset Date Resolution Status Atherosclerotic heart 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 acute Essential hypertension chron ic HLD (hyperlipidemia) chronic Paroxysmal atrial fibrillation chronic [facility] Work Phone: Evaluation note* Diagnosis Onset Date Resolution Status 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 Essential hypertension chron ic HLD (hyperlipidemia) chronic Paroxysmal atrial fibrillation chronic [facility] Work Phone: [facility] Work Phone: Reason for referral (narrative)No reason for referral information availableMiami [facility] Work Phone: Summary Purpose Family History No Family History Records Found Relationship Condition Age at Onset Recorded Date/T tank mother Malignant neoplasm Unknown Anemia Unknown father Malignant neoplasm Unknown Cardiac disease Unknown Advance Directives No Advanced Directives Records Found Advance Directive Response Recorded Date/ Time Name of Medical Power of Utility Engineer June 30, 2021 4:47am Name of Medical Power of Utility Engineer FRANCIS REVELES ER August 02, 2021 3:44pm Name of Medical Power of Utility Engineer Karthik, August 08, 2021 4:03pm Name of Medical Power of Utility Engineer , DEISI August 16, 2021 2:29pm Advance Directives Yes December 29 12:10pm Living Will Yes August 26, 2021 5:08am Power of Utility Engineer Yes August 26 5:08am Advance Directive Response Recorded Date/ Time Advance Directives Yes December 29 12:10pm Living Will Yes August 26, 2021 5:08am Power of Utility Engineer Yes August 26 5:08am Advance Directive Response Recorded Date/ Time Advance Directives Yes December 29 11:10am Living Will Yes August 26, 2021 4:08am Power of Utility Engineer Yes August 26 4:08am Advance Directive Response Recorded Date/ Time Name of Medical Power of Utility Engineer FRANCIS REVELES CLAYTON August 11, 2022 9:33pm Advance Directives Yes December 29 11:10am Living Will Yes August 11, 2 023 9:33pm Power of Utility Engineer Yes August 11, 2022 9:33pm Advance Directive Response Recorded Date/ Time Advance Directives Yes December 29 12:10pm Living Will Yes August 11, 2 023 10:33pm Power of Utility Engineer Yes August 11, 2022 10:33pm Advance Directive Response Recorded Date/ Time Advance Directives Yes October 09, 2 024 2:22pm Living Will Yes October 10, 2023 2:22pm Power of Utility Engineer Yes October 09 2:22pm Advance Directive Response Recorded Date/ Time Living Will Yes April 15 10:01pm Do you have a Healthcare Power of Utility Engineer? Yes April 15, 2024 10:01pm Living Will Yes July 19 4:03pm Do you have a Healthcare Power of Utility Engineer? Yes July 19, 2024 4:03pm Name of Medical Power of Utility Engineer SON July 19, 2024 4:03pm Living Will Yes July 19 3:49pm Do you have a Healthcare Power of Utility Engineer? Yes July 19, 2024 3:49pm Name of Medical Power of Utility Engineer SON July 19, 2024 3:49pm Advance Directives Yes October 09, 2 024 2:22pm Advance Directive Response Recorded Date/ Time Advance Directives Yes October 09 2:22pm Chief Complaint and Reason for Visit Chief Complaint headache OSTEO afib Amb Documentation AFIB WITH RVR AFIB WITH RVR AFIB WITH RVR AFIB WITH RVR palp palp F/U PER L LORSON leg swelling INT LABS AFIB Reason for Visit Atrial fibrillation with rapid ventricular response CHAMBERS (dyspnea on exertion) Paroxysmal atrial fibrillation with RVR Chief Complaint INT LABS 6 M FU Reason for Visit 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 Essential hypertension HLD (hyperlipidemia) Paroxysmal atrial fibrillation Chief Complaint INT LABS 6 M FU EVALUATE ANGINAL EQUIVALENT FOR SOB & FATIGUE EVALUATE ANGINAL EQUIVALENT FOR SOB & FATIGUE Reason for Visit 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 Essential hypertension HLD (hyperlipidemia) Paroxysmal atrial fibrillation Chief Complaint INT LABS 6 M FU EVALUATE ANGINAL EQUIVALENT FOR SOB & FATIGUE EVALUATE ANGINAL EQUIVALENT FOR SOB & FATIGUE SCREENING Reason for Visit 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 Essential hypertension HLD (hyperlipidemia) Paroxysmal atrial fibrillation Chief Complaint EVALUATE ANGINAL EQU IVALENT FOR SOB & FATIGUE EVALUATE ANGINAL EQUIVALENT FOR SOB & FATIGUE SCREENING 3 M FU general illness Reason for Visit 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 Essential hypertension HLD (hyperlipidemia) Paroxysmal atrial fibrillation Chief Complaint SCREENING Chief Complaint SCREENING Age-related osteoporosis without current pathologi Chief Complaint Admit Date Hospital May 28, 2024 9 :39am NO ORDER YET FROM May 11:25am RIGHT HAND July 04, 2024 11 :24am PREOP July 26, 2024 1 1:39am Right middle finger A1 puller Release Fe bruary 2024 5:42am Right middle finger A1 puller Release Fe bruary 2024 7:03am right hand August 13, 2024 12:45pm Reason for Visit Admit Date Choledocholithiasis with acu te cholecystitis with obstruction May 28, 2024 9:39am Elevated liver enzymes May 28 9:39am S/P cholecystectomy May 28, 2024 9 :39am Trigger finger of right hand June 11:24am Choledocholithiasis with acu te cholecystitis with obstruction July 26, 2024 11:15am Orthopedic aftercare August 13, 2024 12:45pm Chief Complaint Admit Date right hand August 13, 2024 12:45pm 1 Y FU December 07, 2024 1:13 pm Reason for Visit Admit Date Orthopedic aftercare August 13, 2024 12:45pm Chief Complaint Admit Date 1 Y FU December 07, 2024 1:13 pm LUMBAR SPINE December 17, 2024 2:33 pm Room 3 December 17, 2024 3:04 pm Reason for Visit Admit Date Atherosclerotic heart 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 December 07, 2024 1:13pm Essential hypertension December 07, 2024 1 :13pm HLD (hyperlipidemia) December 07, 2024 1:1 3pm Paroxysmal atrial fibrillation November 1:13pm Chief Complaint Admit Date 1 Y FU December 07, 2024 1:13 pm LUMBAR SPINE December 17, 2024 2:33 pm Room 3 December 17, 2024 3:04 pm Pain January 01, 2025 1:07p m Reason for Visit Admit Date Atherosclerotic heart 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 December 07, 2024 1:13pm Essential hypertension December 07, 2024 1 :13pm HLD (hyperlipidemia) December 07, 2024 1:1 3pm Paroxysmal atrial fibrillation November 1:13pm 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 December 17, 2024 2:33pm Lumbar stenosis with neurogenic claudica tion December 17, 2024 2:33pm Spondylolisthesis of lumbar region December 17, 2024 2:33pm Chief Complaint Admit Date 1 Y FU December 07, 2024 1:13 pm LUMBAR SPINE December 17, 2024 2:33 pm Room 3 December 17, 2024 3:04 pm Pain January 01, 2025 1:07p m LUMBAR SPINE January 09, 2025 2:56 pm Reason for Visit Admit Date Atherosclerotic heart 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 December 07, 2024 1:13pm Essential hypertension December 07, 2024 1 :13pm HLD (hyperlipidemia) December 07, 2024 1:1 3pm Paroxysmal atrial fibrillation November 1:13pm 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 December 17, 2024 2:33pm Lumbar stenosis with neurogenic claudica tion December 17, 2024 2:33pm Spondylolisthesis of lumbar region December 17, 2024 2:33pm Arthritis of right hip January 09, 2025 2 :56pm 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 January 09, 2025 2:56pm Lumbar stenosis with neurogenic claudica tion January 09, 2025 2:56pm Osteoporosis January 09, 2025 2:56 pm Spondylolisthesis of lumbar region January 09, 2025 2:56pm Chief Complaint Admit Date 1 Y FU December 07, 2024 1:13 pm LUMBAR SPINE December 17, 2024 2:33 pm Room 3 December 17, 2024 3:04 pm Pain January 01, 2025 1:07p m LUMBAR SPINE January 09, 2025 2:56 pm XRAY RIGHT HIP March 05, 2025 3:37pm Additional Source Comments INFORMATION SOURCE (unrecogn ized section and content) DATE CREATED AUTHOR 12/21/2018 [facility] DATE CREATED AUTHOR AUTHOR'S ORGANIZ ATION 08/06/2021 [facility] DATE CREATED AUTHOR AUTHOR'S ORGANIZ ATION 10/06/2021 [facility] DATE CREATED AUTHOR AUTHOR'S ORGANIZ ATION 11/26/2021 [facility] [place] DATE CREATED AUTHOR AUTHOR'S ORGANIZ ATION 04/21/2025 [facility] Goals (unrecognized section and content) Goals may be documented in a n alternate sectionGoals may be documented in an alternate sectionGoals may be documented in an alternate sectionGoals may be documented in an alternate sectionGoals may be documented in an alternate sectionGoals may be documented in an alternate sectionGoals may be documented in an alternate sectionGoals may be documented in an alternate sectionGoals may be documented in an alternate sectionGoals may be documented in an alternate sectionGoals may be documented in an alternate sectionGoals may be documented in an alternate sectionGoals may be documented in an alternate sectionGoals may be documented in an alternate sectionGoals may be documented in an alternate sectionGoals may be documented in an alternate sectionGoals may be documented in an alternate section Source Comments (unrecognize d section and content) In the event this informatio n is protected by the Federal Confidentiality of Alcohol and Drug Abuse Patient Records regulations: The Federal rules restrict any use of the information to criminally investigate or prosecute any alcohol or drug abuse patient.[facility] Care Teams (unrecognized sec tion and content) Appraisal Analyst Relationship Specialty Start Date End Date Kanika Mike DO [address] [place] [address] PCP - General Family Practice 02/19/19 Team Status: Active Member Role Status Dates Dr. Kanika Mike DO Family Provider Active Kanika Mike Primary Care Provider Active Team Status: Inactive Member Role Status Dates Kanika Mike Primary Care Provider, Referring Provide r Active Artur Kingston ORTHOPEDICS TEACHER, ORTHOPEDICS TEACHER-C Attending Provider Active Team Status: Active Member Role Status Dates Kanika Mike Primary Care Provider Active Artur Kingston ORTHOPEDICS TEACHER, ORTHOPEDICS TEACHER-C Other Provider Active Dr. Feliciano Sauceda MD Attending Provider Active Team Status: Inactive Member Role Status Dates Kanika Mike Primary Care Provider Active Artur Kingston ORTHOPEDICS TEACHER, ORTHOPEDICS TEACHER-C Attending Provider Active Team Status: Inactive Member Role Status Dates Kanika Mike Primary Care Provider Active Dr. Kanika Mike DO Attending Provider Active Team Status: Inactive Member Role Status Dates Kanika Mike Primary Care Provider Active Dr. Mikhail Infante MD Emergency Provider Active Team Status: Active Member Role Status Dates Dr. Kanika Mike DO Family Provider Active Dr. Kanika Mike DO Primary Care Provider Active Team Status: Inactive Member Role Status Dates Dr. Kanika Mike DO Primary Care Provider, Attendin g Provider Active Team Status: Inactive Member Role Status Dates Dr. Kanika Mike DO Primary Care Prov ider, Attending Provider, Referring Provider Active Team Status: Active Member Role Status Dates Dr. Kanika Mike DO Primary Care Provider Active Team Status: Inactive Member Role Status Dates Dr. Kanika Mike DO Primary Care Provider Active Start: May 28, 2024 End: May 28, 2024 Dr. Kanika Mike DO Referring Provider Active Start: May 28, 2024 End: May 28, 2024 GORDY Jacobs Attending Provider Active Start: May 28, 2024 End: May 28, 2024 Team Status: Inactive Member Role Status Dates Dr. Kanika Mike DO Primary Care Provider Active Start: May 28, 2024 End: May 28, 2024 Dr. Denton Morgan DO Attending Provider Active Start: May 28, 2024 End: May 28, 2024 Dr. Denton Morgan DO Referring Provider Active Start: May 28, 2024 End: May 28, 2024 Team Status: Inactive Member Role Status Dates Dr. Kanika Mike DO Primary Care Provider Active Start: July 04, 2024 End: July 04, 2024 Dr. Kanika Mike DO Referring Provider Active Start: July 04, 2024 End: July 04, 2024 Dr. Raj Walker DO Attending Provider Active Start: July 04, 2024 End: July 04, 2024 Team Status: Inactive Member Role Status Dates Dr. Kanika Mike DO Primary Care Provider Active Start: July 26, 2024 End: July 26, 2024 Dr. Kanika Mike DO Referring Provider Active Start: July 26, 2024 End: July 26, 2024 Dr. Denton Morgan DO Attending Provider Active Start: July 26, 2024 End: July 26, 2024 Team Status: Active Member Role Status Dates Dr. Kanika Mike DO Primary Care Provider Active Start: July 26, 2024 End: July 26, 2024 Dr. Shakira Ochoa MD Attending Provider Activ e Start: July 26, 2024 End: July 26, 2024 Dr. Shakira Ochoa MD Referring Provider Activ e Start: July 26, 2024 End: July 26, 2024 Team Status: Active Member Role Status Dates Dr. Kanika Mike DO Primary Care Provider Active Start: July 26, 2024 Dr. Kanika Mike DO Referring Provider Active Start: July 26, 2024 Dr. Denton Morgan DO Attending Provider Active Start: July 26, 2024 Dr. Denton Morgan DO Other Provider Active St art: July 26, 2024 Team Status: Inactive Member Role Status Dates Dr. Kanika Mike DO Primary Care Provider Active Start: July 31, 2024 End: July 31, 2024 Dr. Raj Walker DO Attending Provider Active Start: July 31, 2024 End: July 31, 2024 Dr. Raj Walker DO Referring Provider Active Start: July 31, 2024 End: July 31, 2024 Team Status: Active Member Role Status Dates Dr. Kanika Mike DO Primary Care Provider Active Start: July 31, 2024 Dr. Raj Walker DO Attending Provider Active Start: July 31, 2024 Dr. Raj Walker DO Referring Provider Active Start: July 31, 2024 Dr. Raj Walker DO Other Provider Active St art: July 31, 2024 Team Status: Inactive Member Role Status Dates Dr. Kanika Mike DO Primary Care Provider Active Start: August 13, 2024 End: August 13, 2024 Dr. Kanika Mike DO Referring Provider Active Start: August 13, 2024 End: August 13, 2024 Dr. Raj Walker DO Attending Provider Active Start: August 13, 2024 End: August 13, 2024 Team Status: Inactive Member Role Status Dates Dr. Kanika Mike DO Primary Care Provider Active Start: September 13, 2024 End: September 13, 2024 Dr. Kanika Mike DO Attending Provider Active Start: September 13, 2024 End: September 13, 2024 Team Status: Inactive Member Role Status Dates Dr. Kanika Mike DO Primary Care Provider Active Start: December 07, 2024 End: December 07, 2024 Dr. Kanika Mike DO Referring Provider Active Start: December 07, 2024 End: December 07, 2024 Dr. Wilton Davila MD Attending Provider Active Start: December 07, 2024 End: December 07, 2024 Team Status: Active Member Role Status Dates Dr. Kanika Mike DO Primary Care Provider Active Start: December 17, 2024 Dr. Kanika Mike DO Referring Provider Active Start: December 17, 2024 NINOSKA Burnette Attending Provider Active Star t: December 17, 2024 Team Status: Inactive Member Role Status Dates Dr. Kanika Mike DO Primary Care Provider Active Start: December 17, 2024 End: December 17, 2024 Dr. Randy aCll MD Attending Provider Active S tart: December 17, 2024 End: December 17, 2024 Team Status: Inactive Member Role Status Dates Dr. Kanika Mike DO Primary Care Provider Active Start: December 17, 2024 End: December 17, 2024 Dr. Kanika Mike DO Referring Provider Active Start: December 17, 2024 End: December 17, 2024 NINOSKA Burnette Attending Provider Active Star t: December 17, 2024 End: December 17, 2024 Team Status: Active Member Role/Relationship Status Dates Dr. Kanika Mike DO Primary Care Provider Active Team Status: Inactive Member Role/Relationship Status Dates Dr. Kanika Mike DO Primary Care Provider Active Start: September 13, 2024 End: September 13, 2024 Dr. Kanika Mike DO Attending Provider Active Start: September 13, 2024 End: September 13, 2024 Team Status: Inactive Member Role/Relationship Status Dates Dr. Kanika Mike DO Primary Care Provider Active Start: December 07, 2024 End: December 07, 2024 Dr. Kanika Mike DO Referring Provider Active Start: December 07, 2024 End: December 07, 2024 Dr. Wilton Davila MD Attending Provider Active Start: December 07, 2024 End: December 07, 2024 Team Status: Inactive Member Role/Relationship Status Dates Dr. Kanika Mike DO Primary Care Provider Active Start: December 17, 2024 End: December 17, 2024 Dr. Kanika Mike DO Referring Provider Active Start: December 17, 2024 End: December 17, 2024 NINOSKA Burnette Attending Provider Active Star t: December 17, 2024 End: December 17, 2024 Team Status: Inactive Member Role/Relationship Status Dates Dr. Kanika Mike DO Primary Care Provider Active Start: December 17, 2024 End: December 17, 2024 Dr. Randy Call MD Attending Provider Active S tart: December 17, 2024 End: December 17, 2024 Team Status: Inactive Member Role/Relationship Status Dates Dr. Kanika Mike DO Primary Care Provider Active Start: January 01, 2025 End: January 01, 2025 NINOSKA Burnette Attending Provider Active Star t: January 01, 2025 End: January 01, 2025 NINOSKA Burnette Referring Provider Active Star t: January 01, 2025 End: January 01, 2025 Team Status: Inactive Member Role/Relationship Status Dates Dr. Kanika Mike DO Primary Care Provider Active Start: January 09, 2025 End: January 09, 2025 Dr. Kanika Mike DO Referring Provider Active Start: January 09, 2025 End: January 09, 2025 Dr. Juan Toney MD Attending Provider Active Start: January 09, 2025 End: January 09, 2025 Team Status: Inactive Member Role/Relationship Status Dates Dr. Kanika Mike DO Primary Care Provider Active Start: December 07, 2024 End: December 07, 2024 Dr. Kanika Mike DO Referring Provider Active Start: December 07, 2024 End: December 07, 2024 Dr. Wilton Davila MD Attending Provider Active Start: December 07, 2024 End: December 07, 2024 Team Status: Inactive Member Role/Relationship Status Dates Dr. Kanika Mike DO Primary Care Provider Active Start: December 17, 2024 End: December 17, 2024 Dr. Kanika Mike DO Referring Provider Active Start: December 17, 2024 End: December 17, 2024 NINOSKA Burnette Attending Provider Active Star t: December 17, 2024 End: December 17, 2024 Team Status: Inactive Member Role/Relationship Status Dates Dr. Kanika Mike DO Primary Care Provider Active Start: December 17, 2024 End: December 17, 2024 Dr. Randy Call MD Attending Provider Active S tart: December 17, 2024 End: December 17, 2024 Team Status: Inactive Member Role/Relationship Status Dates Dr. Kanika Mike DO Primary Care Provider Active Start: January 01, 2025 End: January 01, 2025 NINOSKA Burnette Attending Provider Active Star t: January 01, 2025 End: January 01, 2025 NINOSKA Burnette Referring Provider Active Star t: January 01, 2025 End: January 01, 2025 Team Status: Inactive Member Role/Relationship Status Dates Dr. Kanika Mike DO Primary Care Provider Active Start: January 09, 2025 End: January 09, 2025 Dr. Kanika Mike DO Referring Provider Active Start: January 09, 2025 End: January 09, 2025 Dr. Juan Toney MD Attending Provider Active Start: January 09, 2025 End: January 09, 2025 Team Status: Inactive Member Role/Relationship Status Dates Dr. Kanika Mike DO Primary Care Provider Active Start: January 24, 2025 End: January 24, 2025 Dr. Kanika Mike DO Attending Provider Active Start: January 24, 2025 End: January 24, 2025 Team Status: Active Member Role/Relationship Status Dates Dr. Kanika Mike DO Primary care physician Active Team Status: Inactive Member Role/Relationship Status Dates Dr. Kanika Mike DO Primary care physician Active Start: December 07, 2024 End: December 07, 2024 Dr. Kanika Mike DO Referring Provider Active Start: December 07, 2024 End: December 07, 2024 Dr. Wilton Davila MD Attending physician Active Start: December 07, 2024 End: December 07, 2024 Team Status: Inactive Member Role/Relationship Status Dates Dr. Kanika Mike DO Primary care physician Active Start: December 17, 2024 End: December 17, 2024 Dr. Kanika Mike DO Referring Provider Active Start: December 17, 2024 End: December 17, 2024 NINOSKA Burnette Attending physician Active Sta rt: December 17, 2024 End: December 17, 2024 Team Status: Inactive Member Role/Relationship Status Dates Dr. Kanika Mike DO Primary care physician Active Start: December 17, 2024 End: December 17, 2024 Dr. Randy Call MD Attending physician Active Start: December 17, 2024 End: December 17, 2024 Team Status: Inactive Member Role/Relationship Status Dates Dr. Kanika Mike DO Primary care physician Active Start: January 01, 2025 End: January 01, 2025 NINOSKA Burnette Attending physician Active Sta rt: January 01, 2025 End: January 01, 2025 NINOSKA Burnette Referring Provider Active Star t: January 01, 2025 End: January 01, 2025 Team Status: Inactive Member Role/Relationship Status Dates Dr. Kanika Mike DO Primary care physician Active Start: January 09, 2025 End: January 09, 2025 Dr. Kanika Mike DO Referring Provider Active Start: January 09, 2025 End: January 09, 2025 Dr. Juan Toney MD Attending physician Active Start: January 09, 2025 End: January 09, 2025 Team Status: Inactive Member Role/Relationship Status Dates Dr. Kanika Mike DO Primary care physician Active Start: January 24, 2025 End: January 24, 2025 Dr. Kanika Mike DO Attending physician Active Start: January 24, 2025 End: January 24, 2025 Team Status: Inactive Member Role/Relationship Status Dates Dr. Kanika Mike DO Primary care physician Active Start: March 05, 2025 End: March 05, 2025 Dr. Charlie Reed MD Attending physician Active Start: March 05, 2025 End: March 05, 2025 Dr. Charlie Reed MD Referring Provider Active Start: March 05, 2025 End: March 05, 2025 FOR RECORDS PERTAINING TO PATIENTS WHO ARE [...] BE BASED ON THE PRIMARY CLINICAL RECORDS. [facility] [employer] provides no warranty or guarantee of the accuracy or completeness of information in this document.
--- NOTE | 2025-05-10 18:11 | EX.ED.DYSGE1 ---
HPI History of Present Illness Chief Complaint: Syncope Narrative Narrative: Patient is a 74-year-old female presenting to the emergency department for a near syncopal episode. Patient has a past medical history of lumbar back pain, paroxysmal A-fib, hypertension, hyperlipidemia, PVCs. Patient states that she drank about four 6 ounce glasses of water today. She states she only ate pistachios. She states that she was getting ready to order pizza tonight when she felt lightheaded and flushed. She states that she had a "pinch of chest discomfort". She denies losing consciousness. She was sitting down the whole entire time. She denies any chest pain at time of evaluation. She denies shortness of breath. Denies any diaphoresis, nausea or vomiting. Denies abdominal pain. Denies headache. Denies vision changes, neck pain, fevers, numbness or weakness to her arms or legs. Denies any recent falls or head trauma. [facility] Medical History Arthritis of right hip Osteoporosis Wears glasses Post-menopausal Rheumatoid arthritis Ambulates with cane Polymyalgia rheumatica High cholesterol Giant cell arteritis Ulcerative colitis Non-smoker History of atrial fibrillation History of echocardiogram History of stress test Cardiology follow-up encounter Hypertension CAD (coronary artery disease) COVID-19 (~06/2021) History of coronary artery disease Monoclonal gammopathy of unknown significance (MGUS) Monoclonal gammopathy Temporal arteritis Osteoarthritis of left shoulder Asthma HLD (hyperlipidemia) HTN (hypertension) Atherosclerotic heart disease of [place] coronary artery without angina pectoris Acute ST elevation myocardial infarction GERD (gastroesophageal reflux disease) Hypothyroidism Ménière's disease Retinal tear of left eye Ulnar neuropathy Polyclonal gammopathy IBS (irritable bowel syndrome) Vitamin D deficiency Osteopenia Incontinence Knee pain PVC's (premature ventricular contractions) SOB (shortness of breath) Arthritis Home Medications Medication Instructions Recorded Last Taken Type levothyroxine 50 mcg tablet 50 mcg PO DAILY Thyroid 12/31/16 07/29/24 History acetaminophen 500 mg tablet 500 - 1,000 mg PO DAILY PRN PRN 08/06/20 08/01/20 History Pain 1-10 Or Fever omeprazole 40 mg capsule,delayed 40 mg PO BID gerd 08/05/21 07/30/24 History release atorvastatin 80 mg tablet 80 mg PO QHS cholesterol 08/08/21 07/30/24 History hydrochlorothiazide 25 mg tablet 25 mg PO DAILY diuretic 08/28/21 07/29/24 History cholecalciferol (vitamin D3) 50 2,000 unit PO DAILY SUPPLEMENT 04/05/22 07/29/24 History mcg (2,000 unit) capsule mecobalamin (vitamin B12) 1,000 1,000 mcg sublingual DAILY 10/26/23 04/13/24 History mcg disintegrating supplement tablet,sublingual losartan 25 mg tablet 25 mg PO DAILY blood pressure #90 06/18/24 07/29/24 Rx tabs metoprolol tartrate 50 mg tablet 50 mg PO QDAY BP 12/07/24 Unknown History Allergy/AdvReac Type Severity Reaction Status Date / Time clarithromycin (From Biaxin) Allergy Rash Verified 05/10/25 16:28 sulfamethoxazole (From Allergy Rash Verified 05/10/25 16:28 Bactrim) trimethoprim (From Bactrim) Allergy Rash Verified 05/10/25 16:28 carvedilol (From Coreg) AdvReac Intermediate Nausea, Verified 05/10/25 16:28 Lightheaded codeine AdvReac Upset Verified 05/10/25 16:28 Stomach lisinopril AdvReac cough Verified 05/10/25 16:28 Penicillins AdvReac Other Verified 05/10/25 16:28 Family History Mother Cancer skin Anemia Father Cancer Heart disease Surgical History History of ERCP Hx laparoscopic cholecystectomy S/P cholecystectomy History of cataract extraction with lens replacement History of coronary artery stent placement History of cardiac catheterization History of temporal artery biopsy (~12/2018) History of delivery Stented coronary artery (06/20/18) History of dilatation and curettage Hx of breast biopsy Hx of tonsillectomy Social History Smoking Status: Never smoker alcohol intake: never substance use type: does not use caffeine: No ROS ROS ED ROS Narrative See HPI EXAM Physical Exam Narrative Exam Narrative: Vital signs: Reviewed General: Alert and oriented x 3. No acute distress HEENT: Head is normocephalic and atraumatic, sinuses nontender, pupils equal round and reactive. Nares are patent. Oropharynx and throat exams normal. Neck: Supple without lymphadenopathy nontender Cardiovascular: Regular rate and rhythm, no murmurs. No rubs or gallops. Normal S1 and S2 Respiratory: Clear to auscultation bilaterally. No wheezes, rales, rhonchi Abdominal: Soft and nontender. Normal bowel sounds. No guarding or rebound. Nonsurgical abdomen Extremities: No lower extremity edema. No tenderness. No bruising. Normal range of motion. Normal sensation. Skin: No rash or redness. Neurological: Cranial nerves II through XII are grossly intact. Normal strength and sensation. Normal cerebellar function The rest of the physical exam is unremarkable Const Vital Signs: 05/10/25 16:24 05/10/25 16:47 05/10/25 17:23 Temperature 97.5 F L Temperature Source Oral Pulse Rate 69 61 Pulse Rate [Lying] 63 Pulse Rate [Sitting (for 1 minute prior to obtaining)] 65 Pulse Rate [Standing (for 1 minute prior to obtaining)] 74 Respiratory Rate 16 16 Respiratory Effort Respiratory Pattern Blood Pressure 115/61 114/46 L Blood Pressure [Lying] 100/46 L Blood Pressure [Sitting (for 1 minute prior to obtaining)] 113/53 L Blood Pressure [Standing (for 1 minute prior to obtaining)] 103/56 L Blood Pressure Mean 79 68 Blood Pressure Mean [Lying] 64 Blood Pressure Mean [Sitting (for 1 minute prior to obtaining)] 73 Blood Pressure Mean [Standing (for 1 minute prior to obtaining)] 71 Pulse Ox 98 100 Oxygen Delivery Method Room Air Room Air 05/10/25 17:45 05/10/25 18:00 05/10/25 18:05 Temperature Temperature Source Pulse Rate 70 68 Pulse Rate [Lying] Pulse Rate [Sitting (for 1 minute prior to obtaining)] Pulse Rate [Standing (for 1 minute prior to obtaining)] Respiratory Rate 20 H Respiratory Effort Normal Respiratory Pattern Normal Blood Pressure 101/45 L 101/45 L Blood Pressure [Lying] Blood Pressure [Sitting (for 1 minute prior to obtaining)] Blood Pressure [Standing (for 1 minute prior to obtaining)] Blood Pressure Mean 63 63 Blood Pressure Mean [Lying] Blood Pressure Mean [Sitting (for 1 minute prior to obtaining)] Blood Pressure Mean [Standing (for 1 minute prior to obtaining)] Pulse Ox 100 Oxygen Delivery Method Room Air 05/10/25 19:00 05/10/25 19:00 05/10/25 19:30 Temperature 98.0 F Temperature Source Pulse Rate 68 76 70 Pulse Rate [Lying] Pulse Rate [Sitting (for 1 minute prior to obtaining)] Pulse Rate [Standing (for 1 minute prior to obtaining)] Respiratory Rate 23 H 18 18 Respiratory Effort Respiratory Pattern Blood Pressure 98/51 L 107/57 L 98/56 L Blood Pressure [Lying] Blood Pressure [Sitting (for 1 minute prior to obtaining)] Blood Pressure [Standing (for 1 minute prior to obtaining)] Blood Pressure Mean 66 73 70 Blood Pressure Mean [Lying] Blood Pressure Mean [Sitting (for 1 minute prior to obtaining)] Blood Pressure Mean [Standing (for 1 minute prior to obtaining)] Pulse Ox 95 98 Oxygen Delivery Method Room Air NIHSS NIHSS Initial: 1a Level of Consciousness: 0 1b LOC Questions (Score 2 if aphasic/stupor): 0 1c LOC Commands (Only score 1st attempt): 0 2 Best Gaze (If aphasic, use reflexive mvmts.): 0 3 Visual: 0 4 Facial Palsy: 0 5 Motor Arm Right (UN = amputation/fusion): 0 5 Motor Arm Left: 0 6 Motor Leg Right: 0 6 Motor Leg Left: 0 7 Limb ataxia (Only + if out of proportion): 0 8 Sensory (Aphasia/stupor=0 or 1, coma=2): 0 9 Best Language: 0 10 Dysarthria (mute, coma=2, intubated=UN): 0 11 Extinction and Inattention (only scored if +): 0 Total Score: 0 MDM MDM MDM Narrative Medical decision making narrative: Patient is a 74-year-old female presenting to the emergency department for an episode of lightheadedness and near syncope. Patient was seen and examined. Vitals are stable. Patient resting in bed comfortably in no acute distress. Patient was started on a liter of fluids. Based on the patient's history and physical exam it sounds like she is likely dehydrated which caused her symptoms. However given her age and past medical history will obtain workup to rule out intracranial abnormality, ACS, electrolyte abnormality, UTI as the cause of her symptoms. She is feeling back to baseline at time of evaluation. CBC with no leukocytosis and normal hemoglobin. BMP with mild hypokalemia 2.9. Oral repletion was given. Glucose is normal at 104. Troponin and reflex within normal limits and no significant delta change. Urinalysis with no evidence of urinary tract infection. Chest x-ray was read by myself and there is no opacities, pneumothorax or wide mediastinum. Radiology read in agreement with no acute findings. CT brain shows no intracranial abnormalities. EKG shows sinus bradycardia at a rate of 58 with no ischemic changes. No dysrhythmia. Patient was reevaluated after fluids and states that she is feeling better and has had no episodes while here. I updated her on her negative workup. She ambulated to and from the bathroom multiple times with no symptoms. Patient discharged from the Emergency Department. I do not feel that the patient's evaluation reveals any acute reason for admission at this time. I instructed them to either follow-up with their primary care physician or promptly return to the Emergency Department for reevaluation should symptoms worsen or new symptoms develop. I explained what symptoms would indicate the need to return to the emergency department. Shared decision making was used. The patient voiced understanding of the treatment plan and is agreeable with it. Clinical impression Lightheadedness episodic Dehydration Hypokalemia History & Record Review Discussion w/independent historian: Patient Lab Data Attestation: I reviewed the patient's lab results. Labs: Laboratory Results - last 24 hr 05/10/25 05/10/25 05/10/25 16:26 16:30 17:45 WBC 8.3 RBC 4.53 Hgb 12.1 Hct 39.0 MCV 86.1 MCH 26.7 L MCHC 31.0 L RDW Std Deviation 43.9 RDW Coeff of Agnieszka 14.1 Plt Count 217 MPV 11.0 Immature Gran % (Auto) 0.200 Neut % (Auto) 68.1 Lymph % (Auto) 22.5 [place] % (Auto) 7.5 Eos % (Auto) 1.2 Baso % (Auto) 0.5 Absolute Neuts (auto) 5.6 Absolute Lymphs (auto) 1.86 Nucleated RBC % 0 Sodium 139 Potassium 2.9 L Chloride 102 Carbon Dioxide 25.1 Anion Gap 12 BUN 11 Creatinine 0.74 Estim Creat Clear Calc 55.71 Est GFR (MDRD) Non-Af 84 BUN/Creatinine Ratio 14.9 Glucose 104 H Calcium 9.2 Troponin T High Sens 10 Troponin T Hi Sens 2 Hr Urine Color Straw Urine Clarity Clear Urine pH 7.0 Ur Specific [place] 1.005 Urine Protein Negative Urine Glucose (UA) Normal Urine Ketones Negative Urine Occult Blood Negative Urine Nitrite Negative Urine Bilirubin Negative Urine Urobilinogen Normal Ur Leukocyte Esterase Negative Urine RBC 0-5 SEEN Urine WBC 0-5 SEEN Ur Squamous Epith Cells 0-5 SEEN Urine Bacteria 0 SEEN Urine Mucus 0 SEEN POC Glucose 99 05/10/25 18:35 WBC RBC Hgb Hct MCV MCH MCHC RDW Std Deviation RDW Coeff of Agnieszka Plt Count MPV Immature Gran % (Auto) Neut % (Auto) Lymph % (Auto) [place] % (Auto) Eos % (Auto) Baso % (Auto) Absolute Neuts (auto) Absolute Lymphs (auto) Nucleated RBC % Sodium Potassium Chloride Carbon Dioxide Anion Gap BUN Creatinine Estim Creat Clear Calc Est GFR (MDRD) Non-Af BUN/Creatinine Ratio Glucose Calcium Troponin T High Sens Troponin T Hi Sens 2 Hr 10 Urine Color Urine Clarity Urine pH Ur Specific [place] Urine Protein Urine Glucose (UA) Urine Ketones Urine Occult Blood Urine Nitrite Urine Bilirubin Urine Urobilinogen Ur Leukocyte Esterase Urine RBC Urine WBC Ur Squamous Epith Cells Urine Bacteria Urine Mucus POC Glucose Radiography Diagnostic Testing: Clinical Impression(s) from Imaging Studies Chest X-Ray 05/10/25 16:36 IMPRESSION: NO ACUTE FINDINGS. Reading Location: [facility] Brain CT 05/10/25 16:57 IMPRESSION: 1. No intracranial hemorrhage. No mass effect or midline shift. 2. Chronic involutional and ischemic gliotic white matter changes. Reading Location: [facility] Discharge Plan Triage Chief Complaint: Syncope ED Provider: Radha Espinosa Dx/Rx/DC Orders Clinical Impression: Episodic lightheadedness, Dehydration Instructions: ED Dehydration (Adult), ED Low Blood Pressure, All Causes, ED Near-Fainting, Uncertain Cause Prescriptions: No Action cholecalciferol (vitamin D3) 50 mcg (2,000 unit) capsule 2,000 unit PO DAILY mecobalamin (vitamin B12) 1,000 mcg tablet,disintegrating 1,000 mcg sublingual DAILY Rx Instructions: place tablet under tongue and allow to dissolve for at least30 secs before swallowing metoprolol tartrate 50 mg tablet 50 mg PO QDAY levothyroxine 50 MCG tablet 50 mcg PO DAILY omeprazole 40 mg capsule,delayed release(DR/EC) 40 mg PO BID acetaminophen 500 MG tablet 500 - 1,000 mg PO DAILY PRN PRN (Reason: Pain 1-10 Or Fever) atorvastatin 80 mg tablet 80 mg PO QHS hydrochlorothiazide 25 mg tablet 25 mg PO DAILY losartan 25 mg tablet 25 mg PO DAILY Qty: 90 3RF Primary Care Provider: Mikael Ramires Referrals: Mikael Ramires, [Primary Care Provider, Family Practice] - As soon as possible Activity Restrictions/Additional Instructions: Make sure you are eating well every day and drinking lots of fluids. Your evaluation in the Emergency Department did not reveal any acute reason for admission. However, I want to emphasize that you may be early in the course of a disease process or illness even if it is not present. For this reason you should follow-up within 24 hours for reevaluation with either your primary care physician or if necessary back here in the Emergency Department. You should return to the Emergency Department immediately if your symptoms worsen or new symptoms develop. Print Language: Kisw[place]ili Disposition Disposition: Home, Self Care Discharge Date/Time: 05/10/25 19:43
[2025-05-10 18:29] LABS: Color, Urine Straw (Yellow); Glucose, Dipstick Normal (Normal); Ketone-Dipstick Negative (Negative); Leukocyte Esterase-Dipstick Negative /ul (Negative); Nitrite-Dipstick Negative (Negative); Occult Blood-Urine Negative /ul (Negative); Protein-Dipstick Negative (Negative); Specific Gravity, Urine 1.005 (1.002-1.030); Urine Bilirubin Dipstick Negative (Negative)
[2025-05-10 18:51] LABS: Red Blood Cells-Urine 0-5 SEEN /hpf (0-5); Squamous Epithelial Cells - UA 0-5 SEEN /hpf (5-10)
[2025-05-10 19:15] LABS: Troponin T High Sens 2 HR 10 ng/L (<=14)
--- NOTE | 2025-05-10 19:19 | ED.RN ---
Report given to Benito Santos RN @ [id number].
== END 2025-05-10 19:43 | disposition home or self-care (01) ==
PROVIDERS: Emergency Provider Student in an Organized Health Care Education/Training Program; PCP Family Medicine; Visit Provider Student in an Organized Health Care Education/Training Program
DX: R55 Syncope and collapse (principal); E86.0 Dehydration; E87.6 Hypokalemia; I10 Essential (primary) hypertension; Z79.899 Other long term (current) drug therapy
CPT/HCPCS: 70450; 71046; 80048; 81001; 82962; 84484; 85025; 93005; 96360; 99285; A4216

== ENCOUNTER → 2025-05-27 | Outpatient (CLI) | payer MEDICARE, SELFPAY ==
[2023-10-10 14:22] VITALS: BMI 38.3
[2025-05-27 17:41] LABS: Hematocrit 35.0 % (37-47); Hemoglobin 10.7 g/dL (12.0-15.0); Immature Granulocytes Count 0.020 X10^3/uL (0.0-0.0); Mean Corp Hgb Conc 30.6 g/dL (32-36); Mean Corpuscular Volume 88.2 fL (81-99); Mean Platelet Vol. 11.4 fl (6.2-12.0); NRBC Flagged by Analyzer 0 % (0-5); Platelet Count 188 K/mm3 (150-450); RBC Distribution Width CV 14.5 % (11.6-14.6); RBC Distribution Width SD 46.5 fl (35.1-43.9); Red Blood Count 3.97 M/mm3 (4.2-5.4); White Blood Count 7.0 K/mm3 (4.4-11.0)
[2025-05-27 18:27] LABS: AST(SGOT) 17 U/L (<=31); Alanine Aminotransfer ALT/SGPT 11 U/L (<=34); Albumin, Serum 3.7 g/dL (3.4-4.8); Alkaline Phosphatase 102 U/L (35-104); Anion Gap 10 (5-15); BUN 13 mg/dL (4-19); BUN/Creat Ratio 19.4 RATIO (10-20); CRP < 3.00 mg/L (0.0-3.0); Calcium,Total 9.1 mg/dL (7.6-11.0); Carbon Dioxide 24.3 mmol/L (21.0-32.0); Chloride 105 mmol/L (98-108); Cholesterol 131 mg/dL (<=200); Globulin 2.7 g/dL (2.2-4.2); Glucose 100 mg/dL (70-99); Low Density Lipoprotein Calc. 46 mg/dL; Potassium 3.7 mmol/L (3.3-5.1); Triglycerides 110 mg/dL; Very Low Density Lipoprotein 22 mg/dL (5-40); Vitamin D,25 Hydroxy 37.4 ng/mL (30-100); cholesterol:hdl ratio screen 2.02
--- OUTSIDE RECORDS SUMMARY | 2025-05-27 19:28 | XMS RPT_ITS | CCD ---
Author Organization [facility] Care Team Providers Care Residential Solar Consultant Name Role Phone Lata Wesley Unavailable ELMIRA MONTERROSO Admitting Unavailable ELMIRA MONTERROSO Attending Unavailable ELMIRA MONTERROSO Primary Care Unavailable Kanika Mike Primary Care Provider UnavailLiana Alanis Attending Provider Unavailable Dr. Feliciano Sauceda Attending Provider [phone] Vashti DOOR FITTER, DOOR FITTER-C Artur Elizabeth Referring Provider Dr. Donis Ty Emergency Provider Dr. Brittney Victoria Admit Provider Dr. Brittney Victoria Attending Provider Dr. Brittney Victoria Other Provider Dr. Maurilio Martins Attending Provider Dr. Maurilio Martins Other Provider Dr. Sumi Montes De Oca Referring Provider Kanika Mike Referring Provider Unavailable Montrell DOOR FITTER, DOOR FITTER-C Lindsey Attending Provider CHARLIE HELTON Attending Unava ilable KANIKA MIKE Primary Care Unavailable Kanika Mike DO Primary Care Provider Kanika Mike Primary Care Provider UnavailKanika Fairchild Referring Provider Unavailable Vashti DOOR FITTER, DOOR FITTER-C Artur Elizabeth Attending Provider Kanika Mike Primary Care Provider UnavailKanika Fairchild Referring Provider Unavailable Vashti DOOR FITTER, DOOR FITTER-C Artur Elizabeth Attending Provider Roof DOOR FITTER, DOOR FITTER-C Artur Elizabeth Other Provider Dr. Feliciano Sauceda Attending Provider Kanika Mike Primary Care Provider Unavailabl e Kanika Mike Referring Provider Unavailable Vashti DOOR FITTER, DOOR FITTER-C Artur Elizabeth Attending Provider Keyla MCCOY, Dr. Youssef Primary Care Provider Keyla MCCOY, Dr. Youssef Referring Provider [phone] Layla Nguyen Attending Provider [facility], Dr. Chawla Attending Provider [facility], Dr. Chawla Referring Provider Denise MCCOY, Dr. Anthony Attending Provider Don KAY, Dr. Rosenberg Attending Provider Don KAY, Dr. Rosenberg Referring Provider [facility], Dr. Chawla Other Provider [phone] [facility] , Dr. Anthony Referring Provider Ladonnalentner , Dr. Anthony Other Provider [facility] , Dr. Youssef Attending Provider [phone] [...] Provider Feng KAY, Dr. Martinez Attending Provider [facility] , Dr. Youssef Primary Care Provider Keyla [...] Unavailable Keyla, Kanika Primary Care Unavailable Jakub, Randy Attending Unavailable Keyla, Kanika Primary Care Unavailable Prayson, Charlie Referring Unavailable Prayson, Charlie Attending Unavailable Keyla, Kanika Primary Care Unavailable Friend, Denton Referring Unavailable Friend, Denton Attending Unavailable Keyla, Kanika Referring Unavailable Keyla, Kanika Attending Unavailable Keyla, Kanika Primary Care Unavailable Allergies Allergy Classification Reported Allergen(s) Allergy Type Date of Onset Reaction(s) Facility (2 sources) clarithromycin Drug Allergy 01-30-20 14 Rash, unknown [facility] Work Phone: (20 sources) codeine; Translations: [CODEINE] Drug Allergy 07-25-19 07 Upset Stomach [facility] Work Phone: Comment on above: FLUSHING AND VOMITTI NG (2 sources) codeine Drug Allergy 01-30-20 14 Skin turned red, nauseas, hot skin, unknown [facility] Work Phone: (2 sources) iodine Drug Allergy 01-30-20 14 Couldn't breathe, unknown [facility] Work Phone: (1 source) penicillin Drug Allergy 01-30-20 14 [facility] Work Phone: (2 sources) penicillin g Drug Allergy 01-30-20 14 Passed out, unknown [facility] Work Phone: (2 sources) pseudoephedrine Drug Allergy 01-30-20 14 unknown, Rash [facility] Work Phone: (3 sources) sulfamethoxazole / trimethoprim; Translations: [BACTRIM] Drug Allergy 01-30-20 14 Rash, unknown [facility] Work Phone: (1 source) IODINE DYE drug allergy 01-30-20 14 [facility] Work Phone: (1 source) ZEPHEREX drug allergy 01-30-20 14 [facility] Work Phone: (1 source) BIOXIN drug allergy 01-30-20 14 [facility] Work Phone: (18 sources) carvedilol Drug Allergy 08-18-19 22 Nausea, Lightheaded [facility] (20 sources) Clarithromycin; Translations: [CLARITHROMYCIN] Drug Allergy 07-25-[address] [facility] (19 sources) Lisinopril Drug Allergy 02-24-20 19 Cough [facility] (20 sources) Penicillins; Translations: [Penicillins] Propensity to adverse reactions 07-25-19 07 Other [facility] Work Phone: Comment on above: as a child (18 sources) Sulfamethoxazole Drug Allergy 08-18-19 22 Rash [facility] (18 sources) Trimethoprim Drug Allergy 08-18-19 Rash [facility] (1 source) Penicillin; Translations: [PENICILLIN G] Drug Allergy 09-29-[address] [facility] (2 sources) Sulfamethoxazole / Trimethoprim; Translations: [SULFAMETHOXAZOLE-T RIMETHOPRIM] Drug Allergy 07-25-[address] [facility] (1 source) Contrast media Propensity to adverse reactions 07-25-19 07 Anaphylaxis [facility] Work Phone: (1 source) guaiFENesin / Pseudoephedrine Drug Allergy 07-25-19 07 Rash [facility] Work Phone: (1 source) carvedilol Drug Allergy 01-10-20 25 [facility] (1 source) Clarithromycin Drug Allergy 01-10-20 25 [facility] (1 source) Lisinopril Drug Allergy 01-10-20 25 [facility] (1 source) Sulfamethoxazole Drug Allergy 01-10-20 25 [facility] (1 source) Trimethoprim Drug Allergy 01-10-20 [facility] Repository Medications Current Medications Medication Drug Class(es) [...] on above: Take 1 capsule by mo [facility]. hydroCHLOROthiazide 25 mg or al tablet [...] TABS 1/2 tablet by mouth daily HYDROCHLOROTHIAZIDE [id number] Kanika Mike DO Start: 01-29-2014 HYDROCHLOROTHI AZIDE TABS as directed HYDROCHLOROTHIAZIDE TABS [id number] Louisa Serra Kassykrais take 1 tablet by lana th once daily hydroCHLOROthiazide (HYDRODIURIL, ESIDRIX) 12.5 mg tablet Take 12.5 mg by mouth once daily. 0 Active End: 10-02-2015 take 1 tablet by mouth once daily HYDROCHLOROTHIAZIDE 25 MG TABS One half tablet by mouth daily HYDROCHLOROTHIAZIDE 64709567597 Lizbeth Washburn LPN Comment on above: Take [...] CPDR 2 capsules by mouth daily OMEPRAZOLE [id number] Kanika Mike DO Start: 01-29-2014 take 1 capsule by [facility] once daily OMEPRAZOLE 20 MG CPDR 1 capsule by mouth daily OMEPRAZOLE 98143546381 Kanika Mike DO Comment on above: Take 40 mg by mouth once daily. levothyroxine sodium 0.05 mg oral tablet (20 sources) l-Thyroxine Start: 12-31-2016 take 1 tablet by mouth once daily Start: 01-29-2014 End: 10-02-2015 take 1 tablet by mouth once daily LEVOTHYROXINE SODIUM 50 MCG TABS One tablet by mouth daily LEVOTHYROXINE SODIUM 46355409218 Kanika Miek DO Comment on above: Take 50 mcg by mouth daily before breakfast. Completed/Discontinued Medications Medication Drug Class(es) Dates Sig (Normalized) Sig (Original) [id number] 200 actuat albuterol 0.09 mg/actuat metered dose [...] ampule per day as needed ALBUTEROL SULFATE 18271742411 Kanika Mike DO Start: 10-02-2015 VENTOLIN HFA 1 08 (90 Base) MCG/ACT AERS 2 puffs every 6 hours as needed ALBUTEROL SULFATE [id number] Kanika Mike DO Start: 07-25-2006 take 1 [...] 3.125 mg oral tablet (20 sources) alpha-Adrenergic Leopoldo, beta-Adrenergic Leopoldo Start: 06-07-20 19 End: 06-07-20 [...] 120 mg by mouth once daily. ergocalciferol 30847 unt oral tablet (2 sources) Provitamin D2 Compound End: 10-02-19 take 1 tablet by mouth every week VITAMIN D (ERGOCALCIFEROL) 08581 UNIT CAPS One tablet by mouth weekly ERGOCALCIFEROL 59759735699 Lizbeth Washburn LPN Flaxseed Oil oil (1 source) Flaxseed Oil oil 1 tablet once daily. 0 Active Comment on above: 1 tablet once daily. ibuprofen 200 mg oral tablet (1 source) Nonsteroidal Anti-inflammatory Drug Start: 10-02-19 16 take 1 tablet by mouth once daily as needed IBUPROFEN 200 MG TABS One tablet by mouth daily as needed IBUPROFEN 72941171031 Kanika Mike DO levoFLOXacin 500 mg oral tablet (1 source) Quinolone Antimicrobial Start: 08-19-19 16 End: 08-22-19 16 take 1 tablet by mouth once daily LEVAQUIN 500 MG TABS one tablet PO QD LEVOFLOXACIN 19139278484 Gopi Astorga DO lisinopril 5 mg oral [...] by mouth daily as needed MECLIZINE HCL 49699372287 Kanika Mike DO End: 10-02-2015 MECLIZINE HCL 25 MG TABS One tablet by mouth every 6-8 hours as needed MECLIZINE HCL 73239041127 Lizbeth Washburn LPN Comment on above: PRN [...] 0.75 % CREA Apply as needed METRONIDAZOLE 46031782634 Kanika Mike DO Start: 07-25-2006 METROGEL 1 % T OPICAL End: 10-02-2015 METRONIDAZOLE 0.75 % CREA Ap ply to the affected area(s) twice daily as needed. METRONIDAZOLE 53521279798 Lizbeth Washburn LPN montelukast 10 mg oral [...] POTASSIMIN TAB S as directed POTASSIUM TABS 39116485559 Louisa Bell microencapsulated potassium chloride 20 meq [...] One tablet by mouth daily POTASSIUM CHLORIDE 65728206170 Kanika Mike DO take 2 tablets by mo [facility] once daily potassium chloride (K-TAB) 10 mEq tablet Take 20 mEq by mouth once daily. 0 Active End: 10-02-2015 take 1 tablet by mouth once daily KLOR-CON M20 20 MEQ CR-TABS One tablet by mouth daily POTASSIUM CHLORIDE LUIS E CR 75970084723 Kanika Mike DO take 1 tablet by lana th once daily KLOR-CON M20 20 MEQ CR-TABS One tablet by mouth daily POTASSIUM CHLORIDE LUIS E CR 64037140849 Lizbeth Washburn LPN Comment on above: Take [...] once daily PROPRANOLOL HCL ER 80 MG HM92P-IIV One tablet by mouth daily PROPRANOLOL HCL 60127574415 Lizbeth Washburn LPN Comment on above: once [...] Coronary atherosclerosis; Translations: [Atherosclerotic heart disease of [place] coronary artery without angina pectoris] Onset: 5 Chronic Comment on above: STEMI, ALLIE to mid la d (2.5 X 20 Prom[employer] Synergy), ALLIE to proximal Diagonal #1 (2.25 X 16 [employer] Sy[employer]) per Dr. Warner @ [facility] Disorders of lipid metabolism (20 sources) Hyperlipidemia; [...] MAMM (CAD)Myra/ZACK Nelson n 04-02-2025 SCRN MAMM (CAD)W/AZCK NEWELL [facility] Imaging Services [address] [place] [address] [id number] SCRN MAMM (CAD)W/ZACK NEWELL MR#: [id number] Acct: [id number] Name: CHELSEY BELTRAN Rep #: [id number] : 1950 F 74 From: Chelsi Weathers i, MD PCP: Dr. Kanika Mike, DO Status: REG CLI Study: SCRN MAMM (CAD)W/ZACK BILAT Date of Exam: 01/18 Exam# [id number] Ordering Dr: Kanika Mike DO EXAM: SCRN [...] be mailed to the patient. Reading Location: [id number] CC: Dr. Kanika Mike DO Scrub Technician: Signed Normal [facility] HIP, UNI W/ Pelvis 2-3 Views on 03-05-2025 HIP, UNI W/ Pelvis 2-3 Views [facility] Imaging Services [address] [place], [place] [address] HIP, UNI W/ Pelvis 2-3 Views MR#: [id number] Acct: [id number] Name: CHELSEY BELTRAN Rep #: [id number] : 1950 F 74 From: Robert Arellano MD PCP: Dr. Kanika Mike, DO Status: REG CLI Study: HIP, UNI W/ Pelvis 2-3 Views Date of Exam: 03/21 Exam# [id number] Ordering Dr: Charlie Reed MD PROCEDURE: HIP, UNI W/ PELVIS 2-3 VIEWS 03/05/2025 REASON FOR EXAM: HIP PAIN TECHNIQUE: Procedure Code: RAD Modality: DX Procedure: HIP, UNI W/ PELVIS 2-3 VIEWS Laterality: COMPARISON: 09/29/2020. FINDINGS: No evidence of acute fracture or dislocation. Severe right and mild left hip osteoarthrosis. Degenerative changes of the partially visualized spine. RAD/HIP, UNI W/ Pelvis 2-3 Views IMPRESSION: Eerhm-rywlynd-dcsb-lef t hip osteoarthrosis. Reading Location: [id number] CC: Dr. Kanika Mike DO; Dr. Charlie Reed MD Scrub Technician: Signed Normal [facility] Urine Cultureon 01-26-2025 URC #1 Below infection level. GNR Poss Pseudomonas sp [place] Count <1000 Mixed Gram Positive Organisms Mixed Gram Positive Organisms MIXC Mixed contaminants. Submit a new specimen if indicated. Normal [facility] Comment on above: Performed By: #### M 100.2199, L4.2010 ####[facility] [address] [place], [place], [id number] Bilirubin Test strip Ql (U)O rdered By: Kanika Mike on 01-24-2025 Bilirubin Ql (U) Negative Negative [facility] Ketones Test strip Ql (U)Ord ered By: Kanika Mike on 01-24-2025 Ketones Ql (U) Negative Negative [facility] Protein Test strip Ql (U)Ord ered By: Kanika Mike on 01-24-2025 Protein Ql (U) 15 mg/dl High Negative [facility] Urinalysis, Routine (Dipstic k)on 01-24-2025 BILIRUBIN URINE Negative Normal Negative [facility] Comment on above: Order Comment: CLEAN CATCH Performed By: #### M 100.2199, L400.2010 ####[facility] [address] [place], [place], [address] GLUCOSE, UR Normal Normal Normal [facility] Comment on above: Order Comment: CLEAN CATCH Performed By: #### M 100.2199, L4 ####[facility] [address] [place], [address] KETONE UR Negative Normal Negative [facility] Comment on above: Order Comment: CLEAN CATCH Performed By: #### M ####[facility] [address] [place], [address] LEUK ESTERASE 25 /ul Abnormal Negative [facility] Comment on above: Order Comment: CLEAN CATCH Performed By: #### M ####[facility] [address] [place], [address] OCCULT BLOOD-UR 10 /ul Abnormal Negative [facility] Comment on above: Order Comment: CLEAN CATCH Performed By: #### M ####[facility] [address] [place], [address] pH UR 6.0 Normal 5.0 - 8.0 [facility] Comment on above: Order Comment: CLEAN CATCH Performed By: #### M ####[facility] [address] [place], [address] PROT DIPSTX 15 mg/dl Abnormal Negative [facility] Comment on above: Order Comment: CLEAN CATCH Performed By: #### M ####[facility] [address] [place], [address] SP.GR. DIPSTX 1.015 Normal 1.002-1.03 0 [facility] Comment on above: Order Comment: CLEAN CATCH Performed By: #### M ####[facility] [address] [place], [address] UROBILI Normal Normal Normal [facility] Comment on above: Order Comment: CLEAN CATCH Performed By: #### M ####[facility] [address] [place], [place], [id number] Urine clarityOrdered By: Marva Mike on 01-24-2025 Clarity (U) Clear Normal Clear [facility] Comment on above: Order Comment: CLEAN CATCH Performed By: #### M 100.2200, L400.2010 ####[facility] [address] [place], [place], [id number] Urine color determinationOrd ered By: Kanika Mike on 01-24-2025 Color (U) Yellow Normal Yellow [facility] Comment on above: Order Comment: CLEAN CATCH Performed By: #### M 100.2200, L4.2010 ####[facility] [address] [place], [place], [phone] Urine cultureOrdered By: Marva Mike on 01-24-2025 Bacteria identified Cx Nom (U) GNR Poss Pseudomonas sp Abnormal [facility] Bacteria identified Cx Nom (U) Positive Abnormal [facility] Urine glucose detectionOrder ed By: Kanika Mike on 01-24-2025 Glucose Ql (U) Normal mg/dl Normal [facility] Urine leukocyte esterase det ection by dipstickOrdered By: Kanika Mike on 01-24-2025 Leukocyte esterase Test strip Ql (U) 25 /ul High Negative [facility] Urine nitrite test by dipsti ckOrdered By: Kanika Mike on 01-24-2025 Nitrite Ql (U) Negative Normal Negative [facility] Comment on above: Order Comment: CLEAN CATCH Performed By: #### M 100.2200, L400.2010 ####[facility] [address] [place], [place], [id number] Urine pHOrdered By: Kanika villalobos on 01-24-2025 pH (U) 6.0 [pH] 5.0 - 8.0 [facility] Urine specific gravity measu rementOrdered By: Kanika Mike on 01-24-2025 Specific gravity (U) [Rel density] 1.015 1.002-1.03 0 [facility] Urine urobilinogen measureme ntOrdered By: Kanika Mike on 01-24-2025 Urobilinogen Ql (U) Normal mg/dl [facility] Reporton Orthopedic Visit Report [facility] [address] [place] [address] [address] [place] [address] OFFICE VISIT Date of Service: 01/09/25 MR#: [id number] Acct: [id number] Name: CHELSEY BELTRAN Rep #: [id number] : 1950 Provider: Dr. Juan Toney MD Age/Sex: 74/F Location: [facility].[place] Status: Signed Intake Vital Signs 12/17/24 14:50 [...] (hyperlipidemia) HTN (hypertension) Atherosclerotic heart disease of [place] coronary artery without angina pectoris Acute ST [...] by me, Dr. Juan Toney MD 01/09/25 0207. Part of today???s visit was documented by [...] distances with (more content not included)... Normal [facility] Magnetic resonance imaging r eportOrdered By: Jared Holder on 01-02-2025 Study report [facility] Imaging Services [address] [place] [address] Spine Lumbar (Routine) MR#: [id number] Acct: [id number] Name: CHELSEY BELTRAN Rep #: [id number] : 1950 F 74 From: Luis Holder MD PCP: Dr. Kanika Mike, DO Status: REG CLI Study:Spine Lumbar (Routine) Date of Exam: 01/01/25 Exam# [id number] Ordering Dr: Derick Schroeder PROCEDURE: SPINE LUMBAR [...] exit pathways stenosis, as detailed. Reading Location: [place] [address] CC: NINOSKA Burnette; Dr. Kanika Mike DO ~ Scrub Technician: Signed [facility] Spine Lumbar (Routine)on Spine Lumbar (Routine) [facility] Imaging Services [address] [place] [address] Spine Lumbar (Routine) MR#: [id number] Acct: [id number] Name: CHELSEY BELTRAN Rep #: [id number] : 1950 F 74 From: Jared mcneal MD PCP: Dr. Kanika Mike DO Status: REG CLI Study: Spine Lumbar (Routine) Date of Exam: 01/01/25 Exam# [id number] Ordering Dr: Rylie Schroeder PROCEDURE: SPINE LUMBAR [...] exit pathways stenosis, as detailed. Reading Location: [place] [address] CC: NINOSKA Burnette; Dr. Kanika Mike DO Scrub Technician: Signed Normal [facility] L/S Spine Min 4 Viewson 11-26 L/S Spine Min 4 Views [facility] Imaging Services [address] [place], [place] [address] L/S Spine Min 4 Views MR#: [id number] Acct: [id number] Name: CHELSEY BELTRAN Rep #: [id number] : 1950 F 74 From: Jared mcneal MD PCP: Dr. Kanika Mike DO Status: DEP AMB Study: L/S Spine Min 4 Views Date of Exam: 12/17/24 Exam# [id number] Ordering Dr: Rylie Schroeder PROCEDURE: L/S SPINE [...] CC: NINOSKA Burnette; Dr. Kanika Mike DO Scrub Technician: Signed Normal [facility] Orthopedic Visit Reporton Orthopedic Visit Report [facility] [address] [facility] [address] [place] [address] OFFICE VISIT Date of Service: 12/17/24 MR#: [id number] Acct: [id number] Name: CHELSEY BELTRAN Rep #: [id number] : 1950 Provider: NINOSKA Burnette Age/Sex: 74/F Location: [facility].KO Status: Signed Intake Vital Signs 07/31/24 06:27 [...] (hyperlipidemia) HTN (hypertension) Atherosclerotic heart disease of [place] coronary artery without angina pectoris Acute ST [...] the calf (more content not included)... Normal [facility] Cardiology Visit Reporton Cardiology Visit Report [facility] [address] [place] [address] OFFICE VISIT Date of Service: 12/07/24 MR#: [id number] Acct: [id number] Name: CHELSEY BELTRAN Rep #: [id number] : 1950 Provider: Dr. Wilton brown MD Age/Sex: 74/F Location: [facility] Status: Signed HPI HPI History of [...] Monitor Intake Visit Reasons: 1 Y FU Belting Cutter Required: No Accompanied by: Self Is patient [...] you fallen in the past year?: Yes [facility] Medical History Wears glasses Post-menopausal Rheumatoid arthritis [...] (hyperlipidemia) HTN (hypertension) Atherosclerotic heart disease of [place] coronary artery without angina pectoris Acute ST elevation myocardial infarction GERD (gastroesophageal reflux disease) Hypot (more content not included)... Normal [facility] Absolute lymphocyte countOrd ered By: Kanika Mike on 09-13-2024 Lymphocytes Auto (Unsp spec) [#/Vol] 1.51 10*3/uL 0.83-4.51 [facility] Absolute neutrophil countOrd ered By: Kanika Mike on 09-13-2024 Neutrophils (Bld) [#/Vol] 4.0 10*3/uL 2.0-7.7 [facility] Anion gap in Serum or Plasma Ordered By: Kanika Mike on 09-13-2024 Anion gap [Moles/Vol] 15 mmol/L 5-15 [facility] Automated lymphocyte count a s percentage of total leukocytesOrdered By: Kanika Mike on 09-13-2024 Lymphocytes/100 WBC Auto (Unsp spec) 24.2 % 19-41 [facility] BUN/creatinine ratioOrdered By: Kanika Mike on 09-13-2024 Urea nitrogen/Creatinine [Mass ratio] 16.7 mg/mg 10- [facility] Basophil percentageOrdered B y: Kanika Mike on 09-13-2024 Basophils/100 WBC (Bld) 0.6 % 0-1 [facility] Bilirubin, totalOrdered By: Kanika Mike on 09-13-2024 Bilirubin [Mass/Vol] 0.50 mg/dL 0.00-1.30 [facility] CBC W/Diff, Automatedon 08-26 Absolute Lymph 1.51 X10 3/uL Normal 0.83-4.51 [facility] Comment on above: Performed By: #### L 506.0400, L500.4050, L100.0100, L501.6710, L500.4100, L101.9900 #### [facility] [address] [place], [address] Absolute Neut 4.0 X10 3/uL Normal 2.0-7.7 [facility] Comment on above: Performed By: #### L 506.0400, L500.4050, L100.0100, L501.6710, L500.4100, L101.9900 #### [facility] [address] [place], [address] Basophils/100 WBC (Bld) 0.6 % Normal 0-1 [facility] Comment on above: Performed By: #### L 506.0400, L500.4050, L100.0100, L501.6710, L500.4100, L101.9900 #### [facility] [address] [place], [address] Eosinophils/100 WBC (Bld) 1.8 % Normal 0-5 [facility] Comment on above: Performed By: #### L 506.0400, L500.4050, L100.0100, L501.6710, L500.4100, L101.9900 #### [facility] [address] [place], [address] Erythrocyte distribution width (RBC) [Ratio] 14.6 % Normal 11.6-14.6 [facility] Comment on above: Performed By: #### L 506.0400, L500.4050, L100.0100, L501.6710, L500.4100, L101.9900 #### [facility] [address] [place], [address] Hematocrit (Bld) [Volume fraction] 35.5 % Low 37-47 [facility] Comment on above: Performed By: #### L 506.0400, L500.4050, L100.0100, L501.6710, L500.4100, L101.9900 #### [facility] [address] [place], [address] Hemoglobin (Bld) [Mass/Vol] 11.2 g/dL Low 12.0-15.0 [facility] Comment on above: Performed By: #### L 506.0400, L500.4050, L100.0100, L501.6710, L500.4100, L101.9900 #### [facility] [address] [place], [address] IG% 0.300 Normal 0.0-0.9 [facility] Comment on above: Result Comment: IG% - Immature Granulocytes (promyelocytes, myelocytes and metamyelocytes) > 1% indicates that a LEFT SHIFT is Present. Performed By: #### L 506.0400, L500.4050, L100.0100, L501.6710, L500.4100, L101.9900 #### [facility] [address] [place], [address] Lymphocytes/100 WBC (Bld) 24.2 % Normal 19-41 [facility] Comment on above: Performed By: #### L 506.0400, L500.4050, L100.0100, L501.6710, L500.4100, L101.9900 #### [facility] [address] [place], [address] MCH (RBC) [Entitic mass] 26.2 pg Low 27.0-32.0 [facility] Comment on above: Performed By: #### L 506.0400, L500.4050, L100.0100, L501.6710, L500.4100, L101.9900 #### [facility] [address] [place], [address] MCHC (RBC) [Mass/Vol] 31.5 g/dL Low 32-36 [facility] Comment on above: Performed By: #### L 506.0400, L500.4050, L100.0100, L501.6710, L500.4100, L101.9900 #### [facility] [address] [place], [address] MCV (RBC) [Entitic vol] 82.9 fL Normal 81-99 [facility] Comment on above: Performed By: #### L 506.0400, L500.4050, L100.0100, L501.6710, L500.4100, L101.9900 #### [facility] [address] [place], [address] Monocytes/100 WBC (Bld) 9.4 % Normal 0-10 [facility] Comment on above: Performed By: #### L 506.0400, L500.4050, L100.0100, L501.6710, L500.4100, L101.9900 #### [facility] [address] [place], [address] Neutrophils/100 WBC (Bld) 63.7 % Normal 47-70 [facility] Comment on above: Performed By: #### L 506.0400, L500.4050, L100.0100, L501.6710, L500.4100, L101.9900 #### [facility] [address] [place], [address] Nucleated RBC (Bld) [#/Vol] 0 10*3/uL Normal 0-5 [facility] Comment on above: Performed By: #### L 506.0400, L500.4050, L100.0100, L501.6710, L500.4100, L101.9900 #### [facility] [address] [place], [address] Platelet mean volume (Bld) [Entitic vol] 11.6 fL Normal 6.2-12.0 [facility] Comment on above: Performed By: #### L 506.0400, L500.4050, L100.0100, L501.6710, L500.4100, L101.9900 #### [facility] [address] [place], [address] Platelets (Bld) [#/Vol] 184 10*3/uL Normal 150-450 [facility] Comment on above: Performed By: #### L 506.0400, L500.4050, L100.0100, L501.6710, L500.4100, L101.9900 #### [facility] [address] [place], [address] RBC (Bld) [#/Vol] 4.28 10*6/uL Normal 4.2-5.4 [facility] Comment on above: Performed By: #### L 506.0400, L500.4050, L100.0100, L501.6710, L500.4100, L101.9900 #### [facility] [address] [place], [address] RDW SD 43.4 fl Normal 35.1-43.9 [facility] Comment on above: Performed By: #### L 506.0400, L500.4050, L100.0100, L501.6710, L500.4100, L101.9900 #### [facility] [address] [place], [address] WBC (Bld) [#/Vol] 6.3 10*3/uL Normal 4.4-11.0 [facility] Comment on above: Performed By: #### L 506.0400, L500.4050, L100.0100, L501.6710, L500.4100, L101.9900 #### [facility] [address] [place], [address] CRPon 09-13-2024 C-REACTIVE PROT < 3.00 Normal 0.0-3.0 [facility] Comment on above: Performed By: #### L 506.0400, L500.4050, L100.0100, L501.6710, L500.4100, L101.9900 ####[facility] [address] [facility] [place], [address] CRP [Mass/Vol]Ordered By: Evelia Mike on 09-13-2024 C-Reactive Protein Extended Range < 3.00 mg/L 0.0-3.0 [facility] Calculated very low density lipoprotein (VLDL) cholesterol measurementOrdered By: Kanika Mike on 09-13-2024 Calculated very low density lipoprotein (VLDL) cholesterol measurement 19 mg/dL -40 [facility] VLDL Cholesterol 19 mg/dL -40 [facility] Carbon dioxide, total [Moles /volume] in Central venous bloodOrdered By: Kanika Mike on 09-13-2024 CO2 [Moles/Vol] 22.1 mmol/L 21.0-32.0 [facility] Chloride assayOrdered By: Evelia Mike on 09-13-2024 Chloride [Moles/Vol] 101 mmol/L 98-108 [facility] Comprehensive Metabolic Prof ilon 09-13-2024 Albumin [Mass/Vol] 4.0 g/dL Normal 3.4-4.8 [facility] Comment on above: Performed By: #### L 506.0400, L500.4050, L100.0100, L501.6710, L500.4100, L101.9900 ####[facility] [address] [place], [address] Albumin/Globulin [Mass ratio] 1.4 {ratio} Normal 0.9-2.4 [facility] Comment on above: Performed By: #### L 506.0400, L500.4050, L100.0100, L501.6710, L500.4100, L101.9900 ####[facility] [address] [place], [address] ALK PHOS 150 U/L High 35-104 [facility] Comment on above: Performed By: #### L 506.0400, L500.4050, L100.0100, L501.6710, L500.4100, L101.9900 ####[facility] [address] [place], [address] ALT [Catalytic activity/Vol] 15 U/L Normal <=34 [facility] Comment on above: Performed By: #### L 506.0400, L500.4050, L100.0100, L501.6710, L500.4100, L101.9900 ####[facility] [address] [place], [address] AST [Catalytic activity/Vol] 19 U/L Normal <=31 [facility] Comment on above: Performed By: #### L 506.0400, L500.4050, L100.0100, L501.6710, L500.4100, L101.9900 ####[facility] [address] [place], [address] Bilirubin [Mass/Vol] 0.50 mg/dL Normal 0.00-1.30 [facility] Comment on above: Performed By: #### L 506.0400, L500.4050, L100.0100, L501.6710, L500.4100, L101.9900 ####[facility] [address] [place], [address] BUN/CRE 16.7 RATIO Normal 10-20 [facility] Comment on above: Performed By: #### L 506.0400, L500.4050, L100.0100, L501.6710, L500.4100, L101.9900 ####[facility] [address] [place], [address] Calcium [Mass/Vol] 9.3 mg/dL Normal 7.6-11.0 [facility] Comment on above: Performed By: #### L 506.0400, L500.4050, L100.0100, L501.6710, L500.4100, L101.9900 ####[facility] [address] [place], [address] Chloride [Moles/Vol] 101 mmol/L Normal 98-108 [facility] Comment on above: Performed By: #### L 506.0400, L500.4050, L100.0100, L501.6710, L500.4100, L101.9900 ####[facility] [address] [place], [address] CO2 [Moles/Vol] 22.1 mmol/L Normal 21.0-32.0 [facility] Comment on above: Performed By: #### L 506.0400, L500.4050, L100.0100, L501.6710, L500.4100, L101.9900 ####[facility] [address] [place], [address] Creatinine [Mass/Vol] 0.69 mg/dL Low 0.70-1.20 [facility] Comment on above: Performed By: #### L 506.0400, L500.4050, L100.0100, L501.6710, L500.4100, L101.9900 ####[facility] [address] [place], [address] GAP 15 Normal 5-15 [facility] Comment on above: Performed By: #### L 506.0400, L500.4050, L100.0100, L501.6710, L500.4100, L101.9900 ####[facility] [address] [place], [address] GFR/1.73 sq M.predicted among non-blacks MDRD (S/P/Bld) [Vol rate/Area] 91 mL/min/{1.73_m2} Normal >60 [facility] Comment on above: Result Comment: mL/m in/1.73m2 CKD-EPI Creatinine Equation (2020) Performed By: #### L 506.0400, L500.4050, L100.0100, L501.6710, L500.4100, L101.9900 ####[facility] [address] [place], [address] Globulin (S) [Mass/Vol] 2.9 g/dL Normal 2.2-4.2 [facility] Comment on above: Performed By: #### L 506.0400, L500.4050, L100.0100, L501.6710, L500.4100, L101.9900 ####[facility] [address] [place], [address] Glucose [Mass/Vol] 99 mg/dL Normal 70-99 [facility] Comment on above: Performed By: #### L 506.0400, L500.4050, L100.0100, L501.6710, L500.4100, L101.9900 ####[facility] [address] [place], [address] Potassium [Moles/Vol] 3.6 mmol/L Normal 3.3-5.1 [facility] Comment on above: Performed By: #### L 506.0400, L500.4050, L100.0100, L501.6710, L500.4100, L101.9900 ####[facility] [address] [place], [address] Sodium [Moles/Vol] 138 mmol/L Normal 133-145 [facility] Comment on above: Performed By: #### L 506.0400, L500.4050, L100.0100, L501.6710, L500.4100, L101.9900 ####[facility] [address] [place], [address] T PROT 6.9 g/dL Normal 5.9-8.4 [facility] Comment on above: Performed By: #### L 506.0400, L500.4050, L100.0100, L501.6710, L500.4100, L101.9900 ####[facility] [address] [place], [address] Urea nitrogen [Mass/Vol] 12 mg/dL Normal 4-19 [facility] Comment on above: Performed By: #### L 506.0400, L500.4050, L100.0100, L501.6710, L500.4100, L101.9900 ####[facility] [address] [place], [address] Eosinophil percentageOrdered By: Kanika Mike on 09-13-2024 Eosinophils/100 WBC (Bld) 1.8 % 0-5 [facility] Erythrocyte Sed Rateon 09-13 SED RATE 34 mm/hr High 0-30 [facility] Comment on above: Performed By: #### L 506.0400, L500.4050, L100.0100, L501.6710, L500.4100, L101.9900 #### [facility] [address] [place], [address] Erythrocyte distribution wid th ratioOrdered By: Kanika Mike on 09-13-2024 Erythrocyte distribution width (RBC) [Ratio] 14.6 % 11.6-14.6 [facility] Erythrocyte distribution wid th standard deviationOrdered By: Kanika Mike on 09-13-2024 Erythrocyte distribution width (RBC) [Entitic vol] 43.4 fL 35.1-43.9 [facility] Erythrocyte distribution width (RBC) [Ratio] 43.4 fl 35.1-43.9 [facility] Erythrocyte sedimentation ra teOrdered By: Kanika Mike on 09-13-2024 ESR (Bld) [Velocity] 34 mm/h High 0-30 [facility] GFR/1.73 sq M.predicted ellie g non-blacks MDRD (S/P/Bld) [Vol rate/Area]Ordered By: Kanika Mike on 09-13-2024 Estimated GFR (MDRD) Non-Af Amer 91 >60 [facility] Comment on above: mL/min/1.73m2 CKD-EP I Creatinine Equation (2020) Glomerular filtration rate ( GFR) estimation/1.73 sq m using serum, plasma, or whole bOrdered By: Kanika Mike on 09-13-2024 GFR/1.73 sq M.predicted among non-blacks MDRD (S/P/Bld) [Vol rate/Area] 91 mL/min/{1.73_m2} >60 [facility] Comment on above: mL/min/1.73m2 CKD-EP I Creatinine Equation (2020) Hematocrit Auto (Bld) [Volum e fraction]Ordered By: Kanika Mike on 09-13-2024 Hematocrit (Bld) [Volume fraction] 35.5 % Low 37-47 [facility] Hemoglobin measurementOrdere d By: Kanika Mike on 09-13-2024 Hemoglobin (Bld) [Mass/Vol] 11.2 g/dL Low 12.0-15.0 [facility] Immature granulocytes/100 WB C Auto (Bld)Ordered By: Kanika Mike on 09-13-2024 Immature granulocytes/100 WBC (Bld) 0.300 % 0.0-0.9 [facility] Comment on above: IG% - Immature Granu locytes (promyelocytes, myelocytes and metamyelocytes) > 1% indicates that a LEFT SHIFT is Present. LDL calc ser/plasOrdered By: Kanika Mike on 09-13-2024 Cholesterol in LDL [Mass/Vol] 47 mg/dL [facility] Comment on above: Uzqhbkycpc=500-732 m g/dL & Higher Rcxc=843 mg/dL or greater LDL Cholesterol, Calculated 47 mg/dL [facility] Comment on above: Bmnuvljsne=349-299 m g/dL & Higher Bknq=792 mg/dL or greater Laboratory - Chemistry and C hemistry - challengeOrdered By: Kanika Mike on 09-13-2024 AST [Catalytic activity/Vol] 19 U/L <32 [facility] Lipid Profileon 09-13-2024 CHOL:HDL 1.96 Normal [facility] Comment on above: Performed By: #### L 506.0400, L500.4050, L100.0100, L501.6710, L500.4100, L101.9900 ####[facility] [address] [facility] [address] Cholesterol [Mass/Vol] 135 mg/dL Normal <=200 [facility] Comment on above: Result Comment: Chol esterol level, Desirable <200 mg/dL Borderline high cholesterol 200-239 mg/dL High cholesterol >=240 mg/dL Recommendations of the NCEP Adult Treatment Panel for the following risk-cutoff thresholds for the [place] population. Performed By: #### L 506.0400, L500.4050, L100.0100, L501.6710, L500.4100, L101.9900 ####[facility] [address] [place], [address] Cholesterol in HDL [Mass/Vol] 69 mg/dL Normal [facility] Comment on above: Result Comment: Yudi onal Cholesterol Education Program (NCEP) guidelines: <40 mg/dL: Low HDL-cholesterol (major risk factor for CHD) >= 60 mg/dL: High HDL-cholesterol (negative risk factor for CHD) HDL-cholesterol is affected by a number of factors, e.g. smoking, exercise, hormones, sex and age. Performed By: #### L 506.0400, L500.4050, L100.0100, L501.6710, L500.4100, L101.9900 ####[facility] [address] [place], [address] Cholesterol in LDL [Mass/Vol] 47 mg/dL Normal [facility] Comment on above: Result Comment: Bord pssowz=140-491 mg/dL Higher Zvsp=063 mg/dL or greater Performed By: #### L 506.0400, L500.4050, L100.0100, L501.6710, L500.4100, L101.9900 ####[facility] [address] [place], [address] Cholesterol in VLDL [Mass/Vol] 19 mg/dL Normal 5-40 [facility] Comment on above: Performed By: #### L 506.0400, L500.4050, L100.0100, L501.6710, L500.4100, L101.9900 ####[facility] [address] [place], [address] Triglyceride [Mass/Vol] 93 mg/dL Normal [facility] Comment on above: Result Comment: The drugs N-Acetylcysteine and Metamizole may falsely depress this assay. Normal range: <150 mg/dL Borderline High: 150-199 mg/dL High: 200-499 mg/dL Very High: >500 mg/dL Performed By: #### L 506.0400, L500.4050, L100.0100, L501.6710, L500.4100, L101.9900 ####[facility] [address] [place], [address] Lymphocytes Auto (Unsp spec) [#/Vol]Ordered By: Kanika Mike on 09-13-2024 Lymphocytes (Bld) [#/Vol] 1.51 10*3/uL 0.83-4.51 [facility] Lymphocytes/100 WBC Auto (Un sp spec)Ordered By: Kanika Mike on 09-13-2024 Lymphocytes/100 WBC (Bld) 24.2 % 19-41 [facility] MCV (mean corpuscular volume ) determinationOrdered By: Kanika Mike on 09-13-2024 MCV (RBC) [Entitic vol] 82.9 fL 81-99 [facility] Mean corpuscular hemoglobin (MCH) determinationOrdered By: Kanika Mike on 09-13-2024 MCH (RBC) [Entitic mass] 26.2 pg Low 27.0-32.0 [facility] Mean corpuscular hemoglobin concentration (MCHC) determinationOrdered By: Kanika Mike on 09-13-2024 MCHC (RBC) [Mass/Vol] 31.5 g/dL Low 32-36 [facility] Mean platelet volume determi nationOrdered By: Kanika Mike on 09-13-2024 Platelet mean volume (Bld) [Entitic vol] 11.6 fL 6.2-12.0 [facility] Monocyte percentageOrdered B y: Kanika Mike on 09-13-2024 Monocytes/100 WBC (Bld) 9.4 % 0-10 [facility] Neutrophil percentageOrdered By: Kanika Mike on 09-13-2024 Neutrophils/100 WBC (Bld) 63.7 % 47-70 [facility] Nucleated red blood cell per centageOrdered By: Kanika Mike on 09-13-2024 Nucleated RBC/100 WBC (Bld) [Ratio] 0 % 0-5 [facility] Platelet countOrdered By: Evelia Mike on 09-13-2024 Platelets (Bld) [#/Vol] 184 10*3/uL 150-450 [facility] Potassium (Unsp spec) [Mass/ Vol]Ordered By: Kanika Mike on 09-13-2024 Potassium [Moles/Vol] 3.6 mmol/L 3.3-5.1 [facility] Potassium measurement (mass/ volume)Ordered By: Kanika Mike on 09-13-2024 Potassium (Unsp spec) [Mass/Vol] 3.6 mmol/L 3.3-5.1 [facility] RBC Auto (Bld) [#/Vol]Ordere d By: Kanika Mike on 09-13-2024 RBC (Bld) [#/Vol] 4.28 10*6/uL 4.2-5.4 [facility] Screening total cholesterol/ high density lipoprotein (HDL) cholesterol ratioOrdered By: Kanika Mike on 09-13-2024 Cholesterol.total/Choles terol in HDL [Mass ratio] 1.96 {ratio} [facility] Serum creatinine measurement (mass/volume)Ordered By: Kanika Mike on 09-13-2024 Creatinine [Mass/Vol] 0.69 mg/dL Low 0.70-1.20 [facility] Serum globulin measurementOr dered By: Kanika Mike on 09-13-2024 Globulin (S) [Mass/Vol] 2.9 g/dL 2.2-4.2 [facility] Serum glucose measurement (m ass/volume)Ordered By: Kanika Mike on 09-13-2024 Glucose [Mass/Vol] 99 mg/dL 70-99 [facility] Serum or plasma C reactive p rotein measurement (mass/volume)Ordered By: Kanika Mike on 09-13-2024 CRP [Mass/Vol] mg/L 0.0-3.0 [facility] Serum or plasma alanine fish otransferase (ALT) measurementOrdered By: Kanika Mike on 09-13-2024 ALT [Catalytic activity/Vol] 15 U/L <35 [facility] Serum or plasma albumin huma urement (mass/volume)Ordered By: Kanika Mike on 09-13-2024 Albumin [Mass/Vol] 4.0 g/dL 3.4-4.8 [facility] Serum or plasma albumin/glob ulin mass ratioOrdered By: Kanika Mike on 09-13-2024 Albumin/Globulin [Mass ratio] 1.4 {ratio} 0.9-2.4 [facility] Serum or plasma alkaline lisa sphatase measurementOrdered By: Kanika Mike on 09-13-2024 ALP [Catalytic activity/Vol] 150 U/L High 35-104 [facility] Serum or plasma calcium huma urement (mass/volume)Ordered By: Kanika Mike on 03-20-2025 Calcium [Mass/Vol] 9.3 mg/dL 7.6-11.0 [facility] Serum or plasma cholesterol in HDL measurement (mass/volume)Ordered By: Kanika Mike on 09-13-2024 Cholesterol in HDL [Mass/Vol] 69 mg/dL >40 [facility] Comment on above: National Cholesterol Education Program (NCEP) guidelines:<40 mg/dL: Low HDL-cholesterol (major risk factor for CHD)>= 60 mg/dL: High HDL-cholesterol (negative risk factor for CHD)HDL-cholesterol is affected by a number of factors, e.g. smoking, exercise, hormones, sex and age. Serum or plasma cholesterol measurement (mass/volume)Ordered By: Kanika Mike on 09-13-2024 Cholesterol [Mass/Vol] 135 mg/dL <201 [facility] Comment on above: Cholesterol level, D esirable <200 mg/dLBorderline high cholesterol 200-239 mg/dLHigh cholesterol >=240 mg/dLRecommendations of the NCEP Adult Treatment Panel for the following risk-cutoff thresholds for the [place] population. Serum or plasma urea nitroge n measurement (mass/volume)Ordered By: Kanika Mike on 09-13-2024 Urea nitrogen [Mass/Vol] 12 mg/dL 4-19 [facility] Sodium levelOrdered By: Kanika Mike on 09-13-2024 Sodium [Moles/Vol] 138 mmol/L 133-145 [facility] T4 Free Directon 09-13-2024 T4 FREE DIRECT 1.40 ng/dL Normal 0.76-1.46 [facility] Comment on above: Performed By: #### L 506.0400, L500.4050, L100.0100, L501.6710, L500.4100, L101.9900 ####[facility] [address] [place], [place], [address] T4 freeOrdered By: Kanika coffey on 09-13-2024 Free T4 [Mass/Vol] 1.40 ng/dL 0.76-1.46 [facility] Total proteinOrdered By: Marva Mike on 09-13-2024 Protein [Mass/Vol] 6.9 g/dL 5.9-8.4 [facility] Triglycerides measurementOrd ered By: Kanika Mike on 09-13-2024 Triglyceride [Mass/Vol] 93 mg/dL <199 [facility] Comment on above: The drugs N-Acetylcy steine and Metamizole may falsely depress this assay. Normal range: <150 mg/dLBorderline High: 150-199 mg/dLHigh: 200-499 mg/dLVery High: >500 mg/dL White blood cell (WBC) count Ordered By: Kanika Mike on 09-13-2024 WBC (Bld) [#/Vol] 6.3 10*3/uL 4.4-11.0 [facility] Orthopedic Visit Reporton Orthopedic Visit Report [facility] [address] [place] [address] OFFICE VISIT Date of Service: 08/13/24 MR#: [id number] Acct: [id number] Name: CHELSEY BELTRAN Hubert Rep #: [id number] : 1950 Provider: Dr. Raj crow DO Age/Sex: 74/F Location: [facility] [place].KO Status: Signed Intake Vital Signs 04/24/24 12:20 [...] (hyperlipidemia) HTN (hypertension) Atherosclerotic heart disease of [place] coronary artery without angina pectoris Acute ST [...] Incision well-appro (more content not included)... Normal [facility] Discharge Instructionon Discharge Instruction [facility] Medical Records Department [address] [place] [address] Instructions for Home/Discharge Instructions 07/31/24 0755 MR#: [id number] Acct: [id number] Name: CHELSEY BELTRAN Rep #: [id number] : 1950 74 From: Raj Walker DO PCP: Dr. Kanika Mike, DO Status:REG [facility] Discharge Instructions Diet Discharge Diet: No restrictions [...] Care Provider: Kanika Mike Instructions Print Language: [place] Discharge Orders/Prescriptions Prescriptions: New oxycodone 5 mg [...] can be placed): Home, Self Care 07/31/24 0563 Raj Walker DO CC: Dr. Kanika Mike DO Signed Normal [facility] MR/POSTOP.Latisha 07-31-2024 MR/POSTOP.[place] Medical Records Department [address] [place] [address] Anesthesia Postop Eval I 07/31/24 0759 MR#: [id number] Acct: [id number] Name: CHELSEY BELTRAN Rep #: [id number] : 1950 74 From: Rolf Luque CRNA PCP: Dr. Kanika Mike, DO Status:[facility] Y Race: C Location: [place] [address] Anesthesia: Postop Eval I Current Vital Signs [...] CRNA Cosigner Signature: Date CC: Signed Normal [facility] [id number] 07-31-2024 [facility] Records Department [address] [place] [address] Anesthesia Postop Eval II 07/31/24 1034 MR#: [id number] Acct: [id number] Name: CHELSEY BELTRAN Rep #: [id number] : 1950 74 From: Annabel Phillips PCP: Dr. Kanika Mike, DO Status:[facility] Y Race: C Location: [facility] [place] Anesthesia Postop Eval I Sum Postop Eval Completion status Anesthesia document: Postop Eval 1 completed: Yes Anesthesia Postop Eval I Summary Anesthesia Postop Eval I Summary: Anesthesia Postop Eval I: Assessment Summary Airway patent Yes 07/31/24 07:59 DATA MINING ANALYST.PKEL Spontaneous unlabored Yes 07/31/24 07:59 DATA MINING ANALYST.PKEL respirations Mental status nausea No 07/31/24 07:59 DATA MINING ANALYST.PKEL Vomiting No 07/31/24 07:59 DATA MINING ANALYST.PKEL Anesthesia Postop Eval I: Fluid Summary Crystalloid volume administer 20 07/31/24 07:59 DATA MINING ANALYST.PKEL (ml) Colloids volume administered ( ml) Blood Product volume administered (ml) Total IV fluid infused 20 07/31/24 07:59 DATA MINING ANALYST.PKEL Anesthesia Postop Eval I: Summary Notes Anesthesia Complication No 07/31/24 07:59 DATA MINING ANALYST.PKEL Anesthesia Complication Comment: Post-operative progress note Anesthesia: Postop Eval II Evaluation Mental status: Awake and Calm Pain Level: 0 nausea: No Vomiting: No 07/31/24 1034 Date Annabel Perez Signature: Date CC: Signed Normal [facility] Operative Reporton Operative Report [facility] Medical Records Department [address] [place] [address] Operative Report 07/31/24 0754 MR#: [id number] Acct: [id number] Name: CHELSEY BELTRAN Rep #: [id number] : 1950 74 From: Raj Walker DO PCP: Dr. Kanika Mike, DO Status:REG [facility] Location: [place] [address] Operative Report (Standard) Operative Information Date of Procedure: 07/31/24 Pre-Operative Diagnosis: Right middle finger trigger finger Post-Operative Diagnosis: Same Surgery/Procedure Performed: Right middle finger A1 franci release coke burner: Yes Billing Coordinator: Robert Bowens Tasks completed by cutter first: Opening closing Type of Anesthesia: Local and [...] DO; Dr. Kanika Mike DO Signed Normal [facility] 12 Lead EKGon 07-26-2024 12 Lead EKG [facility] Cardiovascular Services [address] [place] [address] 12 Lead EKG 07/26/24 1139 MR#: [id number] Acct: [id number] Name: CHELSEY BELTRAN Rep #: [id number] : 1950 74 From: Shakira Ochoa MD Attending Dr: Denton Morgan DO Status: DEP [facility] Ordering Dr: Denton Morgan DO Date: 07/26/24 [...] bpm Confirmed by DON KAY, ANGELA ([id number]), editor map THERESE JACKSON ([id number]) on 07/26/2024 2:46:33 PM Referred By: Kanika Mike Confirmed By: ANGELA OCHOA MD 07/26/24 1446 Date Shakira Ochoa MD CC: Dr. Kanika Mike, ; Denton Morgan DO Signed Normal [facility] ERCP Biliary/Pancreason 06-29 ERCP Biliary/Pancreas [facility] Imaging Services [address] [place] [address] ERCP Biliary/Pancreas MR#: [id number] Acct: [id number] Name: CHELSEY BELTRAN Rep #: [id number] : 1950 F 74 From: Donis reyes MD PCP: Dr. Kanika Mike DO Status: [facility] Study: ERCP Biliary/Pancreas Date of Exam: 07/26/24 Exam# [id number] Ordering Dr: Denton Morgan DO EXAM: ERCP BILIARY/PANCREAS CLINICAL HISTORY: Removal of the biliary stent. COMPARISON: None. TECHNIQUE: ERCP was performed by the siene maker. Fluoroscopic services was provided. FINDINGS: Contrast was injected. The biliary stent was removed. RAD/ERCP Biliary/Pancreas IMPRESSION: Removal of the biliary stent. Reading Location: [place] [address] CC: Dr. Kanika Mike DO; Denton Morgan DO Scrub Technician: Signed Normal [facility] ERCP Reporton 07-26-2024 ERCP Report [facility] Medical Records Department [address] [place] [address] ERCP Report MR#: [id number] Acct: [id number] Name: CHELSEY BELTRAN Rep #: [id number] : 1950 74 From: Denton Morgan DO PCP: Dr. Kanika Mike DO Status:REG [facility] Patient Name: Chelsey Beltran Procedure Date: 07/26/2024 [...] hours 18 minutes 26 seconds Findings: The civil rights representative film was normal. The esophagus was successfully [...] and righ (more content not included)... Normal [facility] H Pylori (initial)on H Pylori (initial) -- ---- Patient Age/Sex Location Account Attending Physician ---- CHELSEY BELTRAN 74/F EN [id number] Denton Morgan DO ---- Specimen: [id number] Received: 07/27/24 Status: PORFIRIO Manjarrez Num: [id number] Spec Type: IMMUNO Subm Dr: Denton Morgan, PHYSICIAN INSTITUTION [place] [address] SPECIMEN INFORMATION: Tissue Source: Gastric polyp Clinical Info: Status post cholecystectomy, elevated liver enzymes, choledocholithiasis with acute cholecystitis with obstruction Specimen Number: [id number] block 1 CPT code: 22663 METHODOLOGY: Deparaffinized sections of prefer/formalin-fixed tissue or [...] developed and their performance characteristics determined by [facility]. They may not have been cleared or approved by the U.S. Food and Drug Administration. The FDA has determined that such clearance or approval is not necessary. The above immunohistochemical/du alISH markers are ordered and reviewed by the Pathologist. INTERPRETATION: Gastric polyp, biopsy: Negative for Helicobacter pylori organisms. IQRA. 07/27/2024 Signed (signature on file) Dr. Vince Main MD 07/27/24 1204 ---- Normal [facility] Comment on above: Performed By: #### P H.PYLORI #### [facility] [address] [facility] [place], [place], [address] MR/POSTOP.ANEon 07-26-2024 MR/POSTOP.MARIYA [facility] Medical Records Department [address] [place] [address] Anesthesia Postop Eval I 07/26/24 1323 MR#: [id number] Acct: [id number] Name: CHELSEY BELTRAN Hubert Rep #: [id number] : 1950 74 From: Chip Cunningham PCP: Dr. Kanika Mike, DO Status:REG SDC Y Race: C Location: [place] [address] Anesthesia: Postop Eval I Current Vital Signs [...] Chip Perez Signature: Date CC: Signed Normal [facility] MR/HACHXGTM2mr 07-26-2024 [facility] Medical Records Department [address] [place] [address] Anesthesia Postop Eval II 07/26/24 2328 MR#: [id number] Acct: [id number] Name: CHELSEY BELTRAN Rep #: [id number] : 1950 74 From: Estuardo Perez MD PCP: Dr. Kanika Mike, DO Status:[facility] Y Race: C Location: EN Anesthesia Postop [...] Estuardo Perez Signature: Date CC: Signed Normal [facility] Special Stain Group IIon Special Stain Group II ----- ---- Patient Age/Sex Location Account Attending Physician ---- CHELSEY BELTRAN 74/F EN [id number] Denton Morgan DO ---- Specimen: [id number] Received: 07/26/24-1317 Status: PORFIRIO Manjarrez Num: [id number] Spec Type: Fluid Subm Dr: DO JAGDEEP [...] including cell block. Mr 07/26/2024 TC:5 CPT: 93083,12255 Signed (signature on file) Dr. Vince Main MD 07/27/24 1101 ---- Normal [facility] Comment on above: Performed By: #### P SSII ####[facility] [address] [place], [address] Surgery Specimen Level Jose 07-26-2024 Surgery Specimen Level IV ---- Patient Age/Sex Location Account Attending Physician ---- CHELSEY BELTRAN 74/F ELIZABETH [id number] Denton Morgan DO ---- Specimen: [id number] Received: 07/26/24 Status: PORFIRIO Manjarrez Num: [id number] Spec Type: EGD BIOPSY Subm Dr: Denton Morgan DO [place] OPERATION: Stent removal, balloon cholangiogram PRE-OP DIAGNOSIS: Status post cholecystectomy, elevated liver enzymes, choledocholithiasis with acute cholecystitis with obstruction TISSUE SUBMITTED: Gastric polyp ---- MICROSCOPIC DIAGNOSIS Gastric polyp, polypectomy: Hyperplastic/inflammat ory polyp. See comment. IQRA.mr 07/27/2024 COMMENT The results of immunohistochemistry for Helicobacter pylori will be reported separately ([id number]). MICROSCOPIC DESCRIPTION Slides are reviewed. GROSS DESCRIPTION Received in fixative is one container labeled with the patient's name and designated Gastric polyp. The specimen consists of a single piece of red tissue measuring 1.6 x 1.4 x 0.8cm. The specimen appears to have a resection base which is inked black. The specimen is trisected and submitted in its entirety in two cassettes. Cassette 1 contains two pieces, cassette 2 contains one piece. mr 07/26/2024 TC:5 CPT:80717 ---- Patient Age/Sex Location Account Attending Physician ---- CHELSEY BELTRAN 74/F EN [id number] Denton Morgan DO ---- Signed (signature on file) Dr. Vince Main MD 07/27/24 1109 ---- Normal [facility] Comment on above: Performed By: #### P SUIV #### [facility] [address] [facility] [place], [place], [address] MR/Anupama 07-19-2024 MR/KAYLAN [facility] Medical Records Department [address] [place] [address] PAT - Anesthesia 07/19/242017 MR#: [id number] Acct: [id number] Name: CHELSEY BELTRAN Hubert Rep #: [id number] : 1950 74 From: Estuardo Perez MD PCP: Dr. Kanika Mike, DO Status:REG SDC Y Race: C Location: [place] [address] Pre-Assessment Diagnosis/Proposed Procedure Planned Operative Procedure(s): RIGHT MIDDLE FINGER A1 FRANCI RELEASE Anesthesia History Anesthesia History - tiler: Anesthesia History - tiler Hx Hospitalization Yes: 03/202407/19/24 14:49 Any Problems [...] take am of surgery PONV PONV - tiler: PONV - tiler Female Yes 07/19/24 14:49 HX of Motion [...] 04/24/24 12:20 Respiratory Assessment Respiratory Assessment - tiler: Respiratory Tract Infection Hx - tiler Hx Respiratory Tract Infection No 07/19/24 14:49 STOP Sleep Apnea STOP Sleep Apnea - tiler: STOP Sleep Apnea - tiler Hx Hypertension Yes: controlled with med 07/19/24 [...] Tobacco Use History Tobacco Use History - tiler: Tobacco Use History - tiler Tobacco Use Smoking Status Never smoker 07/19/24 14:49 Hx Tobacco Use No 07/19/24 14:49 Years Smoking Packs Smoked per Day Smoking Cessation Date was within the last 15 years Hx Smoking Cessation Date Hx Smoking Cessation Counseling Hematologic Medial History Hematologic Hx - tiler: Hematologic Medical Hx - computational scientist Hx of Blood Transfusion No 07/19/24 14:49 [...] confused, unrespo /Reproduction History /Reproductive History - tiler: /Reproductive Hx- tiler Hx Now No 07/19/24 14:49 Gestational Age (in weeks): EDC: Hx Hx Para Hx Section SAB No 07/19/24 14:49 [facility] Medical History Wears glasses Post-menopausal Rheumatoid arthritis [...] (hyperlipidemia) HTN (hypertension) Atherosclerotic heart disease of [place] coronary artery without angina pectoris Acute ST elevation myocardial infarction GERD (gastroesophageal reflux disease) Hypothyroidism 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 Normal [facility] MR/PAT.ANE [facility] Medical Records Department [address] [place] [address] PAT - Anesthesia 07/19/242012 MR#: [id number] Acct: [id number] Name: CHELSEY BELTRAN Rep #: [id number] : 1950 74 From: Estuardo Perez MD PCP: Dr. Kanika Mike, DO Status:PRE [facility] Y Race: C Location: EN Pre-Assessment Diagnosis/Proposed Procedure Planned Operative Procedure(s): ERCP STENT REMOVAL Anesthesia History Anesthesia History - tiler: Anesthesia History - tiler Hx Hospitalization Yes: 03/202407/19/24 15:03 Any Problems [...] take am of surgery PONV PONV - tiler: PONV - tiler Female Yes 07/19/24 15:03 HX of Motion [...] 04/24/24 12:20 Respiratory Assessment Respiratory Assessment - tiler: Respiratory Tract Infection Hx - tiler Hx Respiratory Tract Infection No 07/19/24 15:03 STOP Sleep Apnea STOP Sleep Apnea - tiler: STOP Sleep Apnea - tiler Hx Hypertension Yes: controlled with med 07/19/24 [...] Tobacco Use History Tobacco Use History - tiler: Tobacco Use History - tiler Tobacco Use Smoking Status Never smoker 07/19/24 15:03 Hx Tobacco Use No 07/19/24 15:03 Years Smoking Packs Smoked per Day Smoking Cessation Date was within the last 15 years Hx Smoking Cessation Date Hx Smoking Cessation Counseling Hematologic Medial History Hematologic Hx - tiler: 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 Normal [facility] MR/PAT.ANE [facility] Medical Records Department [address] [place] [address] PAT - Anesthesia 07/19/242011 MR#: [id number] Acct: [id number] Name: CHELSEY BELTRAN Rep #: [id number] : 1950 74 From: Estuardo Perez MD PCP: Dr. Kanika Mike, DO Status:PRE SDC Y Race: C Location: EN Pre-Assessment Diagnosis/Proposed Procedure Planned Operative Procedure(s): ERCP STENT REMOVAL Anesthesia History Anesthesia History - tiler: Anesthesia History - tiler Hx Hospitalization Yes: 03/202407/19/24 15:03 Any Problems [...] take am of surgery PONV PONV - tiler: PONV - tiler Female Yes 07/19/24 15:03 HX of Motion [...] 04/24/24 12:20 Respiratory Assessment Respiratory Assessment - tiler: Respiratory Tract Infection Hx - tiler Hx Respiratory Tract Infection No 07/19/24 15:03 STOP Sleep Apnea STOP Sleep Apnea - tiler: STOP Sleep Apnea - tiler Hx Hypertension Yes: controlled with med 07/19/24 [...] Tobacco Use History Tobacco Use History - tiler: Tobacco Use History - tiler Tobacco Use Smoking Status Never smoker 07/19/24 15:03 Hx Tobacco Use No 07/19/24 15:03 Years Smoking Packs Smoked per Day Smoking Cessation Date was within the last 15 years Hx Smoking Cessation Date Hx Smoking Cessation Counseling Hematologic Medial History Hematologic Hx - tiler: 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 Normal [facility] MR/PAT.ANE [facility] Medical Records Department [address] [place] [address] PAT - Anesthesia 07/19/241947 MR#: [id number] Acct: [id number] Name: CHELSEY BELTRAN Rep #: [id number] : 1950 74 From: Estuardo Perez MD PCP: Dr. Kanika Mike, DO Status:PRE SDC Y Race: C Location: EN Pre-Assessment Diagnosis/Proposed Procedure Planned Operative Procedure(s): ERCP STENT REMOVAL Anesthesia History Anesthesia History - tiler: Anesthesia History - tiler Hx Hospitalization Yes: 03/202407/19/24 15:03 Any Problems [...] take am of surgery PONV PONV - tiler: PONV - tiler Female Yes 07/19/24 15:03 HX of Motion [...] 04/24/24 12:20 Respiratory Assessment Respiratory Assessment - tiler: Respiratory Tract Infection Hx - tiler Hx Respiratory Tract Infection No 07/19/24 15:03 STOP Sleep Apnea STOP Sleep Apnea - tiler: STOP Sleep Apnea - tiler Hx Hypertension Yes: controlled with med 07/19/24 [...] Tobacco Use History Tobacco Use History - tiler: Tobacco Use History - tiler Tobacco Use Smoking Status Never smoker 07/19/24 15:03 Hx Tobacco Use No 07/19/24 15:03 Years Smoking Packs Smoked per Day Smoking Cessation Date was within the last 15 years Hx Smoking Cessation Date Hx Smoking Cessation Counseling Hematologic Medial History Hematologic Hx - tiler: 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 Normal [facility] Orthopedic Visit Reporton Orthopedic Visit Report [facility] [address] [place] [address] [address] [place] [address] OFFICE VISIT Date of Service: 07/04/24 MR#: [id number] Acct: [id number] Name: CHELSEY BELTRAN Rep #: [id number] : 1950 Provider: Dr. Raj crow DO Age/Sex: 73/F Location: [facility] Status: Signed Intake Vital Signs 04/24/24 12:20 [...] artery disease) COVID-19 ( 06/2021) History of AL (myocardial infarction) History of coronary artery disease Essential hypertension Monoclonal gammopathy of unknown significance (MGUS) Monoclonal gammopathy Temporal arteritis Osteoarthritis of left shoulder Asthma HLD (hyperlipidemia) HTN (hypertension) Atherosclerotic heart disease of [place] coronary artery without angina pectoris Acute ST [...] she patel (more content not included)... Normal [facility] Bilirubin directOrdered By: Layla Coronado on 05-28-2024 Bilirubin.direct [Mass/Vol] 0.19 mg/dL 0.00-0.30 [facility] Bilirubin, totalOrdered By: Layla Coronado on 05-28-2024 Bilirubin [Mass/Vol] 0.60 mg/dL 0.20-1.00 [facility] Comment on above: For patients on eltr ombopag therapy, use of [place] TBIL is not recommended. Gastroenterology Visit Repor ton 05-28-2024 Gastroenterology Visit Report [facility] [address] [place] [address] OFFICE VISIT Date of Service: 05/28/24 MR#: [id number] Acct: [id number] Name: CHELSEY BELTRAN Rep #: [id number] : 1950 Provider: GORDY connor Age/Sex: 73/F Location: [facility] Status: Signed Intake Vital Signs 04/17/24 02:19 04/24/24 12:20 05/28/24 10:16 Height 5 ft 1 in 5 ft 1 in Weight: 170 lb 4 oz BP 98/64 Respiration 18 Pulse 65 Pulse Oximetry (%) 96 Oxygen Delivery Method room air Intake Visit Reasons: Hospital FU Chief Complaint: post cholecystectomy Belting Cutter Required: No Is patient in pain?: Yes [...] Has had a lot gas and gurgling. [facility] Medical History (Updated 05/28/24 @ 10:44 by Layla Coronado, DOOR FITTER-C) Wears glasses Post-menopausal Thyroid disease Rheumatoid arthritis Ambulates with cane Polymyalgia rheumatica High cholesterol Giant cell arteritis Ulcerative colitis Non-smoker History of atrial fibrillation History of echocardiogram History of stress test Cardiology follow-up encounter Hypertension CAD (coronary artery disease) COVID-19 ( 06/2021) History of AL (myocardial infarction) History of coronary artery disease Essential hypertension Monoclonal gammopathy of unknown significance (MGUS) Monoclonal gammopathy Temporal arteritis Osteoarthritis of left shoulder Asthma HLD (hyperlipidemia) HTN (hypertension) Atherosclerotic heart disease of [place] coronary artery without angina pectoris Acute ST [...] - impro (more content not included)... Normal [facility] - Chemistry and C hemistry - challengeOrdered By: Layla Coronado on 05-28-2024 AST [Catalytic activity/Vol] 17 U/L 15-37 [facility] Liver Profileon 05-28-2024 Albumin [Mass/Vol] 3.1 g/dL Low 3.2-5.0 [facility] Comment on above: Performed By: #### L 500.3400 ####[facility] [address] [place], [address] ALK P 114 U/L Normal 45-117 [facility] Comment on above: Performed By: #### L 500.3400 ####[facility] [address] [place], [address] ALT [Catalytic activity/Vol] 19 U/L Normal 13-56 [facility] Comment on above: Performed By: #### L 500.3400 ####[facility] [address] [place], [address] AST [Catalytic activity/Vol] 17 U/L Normal 15-37 [facility] Comment on above: Performed By: #### L 500.3400 ####[facility] [address] [place], [address] Bilirubin [Mass/Vol] 0.60 mg/dL Normal 0.20-1.00 [facility] Comment on above: Result Comment: For patients on eltrombopag therapy, use of [place] TBIL is not recommended. Performed By: #### L 500.3400 ####[facility] [address] [place], [address] Bilirubin.direct [Mass/Vol] 0.19 mg/dL Normal 0.00-0.30 [facility] Comment on above: Performed By: #### L 500.3400 ####[facility] [address] [place], [address] Globulin (S) [Mass/Vol] 3.4 g/dL Normal 2.2-4.2 [facility] Comment on above: Performed By: #### L 500.3400 ####[facility] [address] [place], [place], [address] T PROT 6.5 g/dL Normal 6.4-8.2 [facility] Comment on above: Performed By: #### L 500.3400 ####[facility] [address] [place], [place], [address] Serum globulin measurementOr dered By: Layla Coronado on 05-28-2024 Globulin (S) [Mass/Vol] 3.4 g/dL 2.2-4.2 [facility] Serum or plasma alanine fish otransferase (ALT) measurementOrdered By: Layla Coronado on 05-28-2024 ALT [Catalytic activity/Vol] 19 U/L 13-56 [facility] Serum or plasma albumin huma urement (mass/volume)Ordered By: Layla Coronado on 05-28-2024 Albumin [Mass/Vol] 3.1 g/dL Low 3.2-5.0 [facility] Serum or plasma alkaline lisa sphatase measurementOrdered By: Layla Coronado on 05-28-2024 ALP [Catalytic activity/Vol] 114 U/L 45-117 [facility] Total proteinOrdered By: Maribell Coronado on 05-28-2024 Protein [Mass/Vol] 6.5 g/dL 6.4-8.2 [facility] Surgery Visit Reporton 05-09 Surgery Visit Report [facility] [address] [place] [address] OFFICE VISIT Date of Service: 05/09/24 MR#: [id number] Acct: [id number] Name: CHELSEY BELTRAN Rep #: [id number] : 1950 Provider: ROSY corcoran Age/Sex: 73/F Location: [facility] Status: Signed Intake Vital Signs 04/24/24 [...] Global Post Op Diagnoses S/P cholecystectomy Z90.49 [facility] Medical History (Updated 04/26/24 @ 00:01 by Doni Powers) Wears glasses Post-menopausal Thyroid disease Rheumatoid arthritis Ambulates with cane Polymyalgia rheumatica High cholesterol Giant cell arteritis Ulcerative colitis Non-smoker History of atrial fibrillation History of echocardiogram History of stress test Cardiology follow-up encounter Hypertension CAD (coronary artery disease) COVID-19 ( 06/2021) History of AL (myocardial infarction) History of coronary artery disease Essential hypertension Monoclonal gammopathy of unknown significance (MGUS) Monoclonal gammopathy Temporal arteritis Osteoarthritis of left shoulder Asthma HLD (hyperlipidemia) HTN (hypertension) Atherosclerotic heart disease of [place] coronary artery without angina pectoris Acute ST [...] History (Reviewed (more content not included)... Normal [facility] Cholangiogram/ O R,Initialon 04-24-2024 Cholangiogram/ O R,Initial [facility] Imaging Services [address] [place], [place] [address] Cholangiogram/ O R,Initial MR#: [id number] Acct: [id number] Name: CHELSEY BELTRAN Rep #: [id number] : 1950 F 73 From: Nathan Brito PCP: Dr. Kanika Mike DO Status: [facility] Study: Cholangiogram/ O R,Initial Date of Exam: 04/24 Exam# [id number] Ordering Dr: Opal Whitehead [place] [id number] INDICATION: LAP ROXI EXAMINATION/TECHNIQUE: Cine intraoperative views [...] Kanika Mike DO; Dr. Opal Whitehead MD Scrub Technician: Signed Normal [facility] Discharge Instructionon 03-28 Discharge Instruction [facility] Medical Records Department [address] [place] [address] Instructions for Home/Discharge Instructions 04/24/24 1358 MR#: [id number] Acct: [id number] Name: CHELSEY BELTRAN Rep #: [id number] : 1950 73 From: Opal Whitehead MD PCP: Dr. Kanika Mike, DO Status:REG [facility] Discharge Instructions Diet Discharge Diet: Light diet [...] 5 PM and on the weekends call [phone] with any concerns. Test Results: Test results [...] the other half the bottle. Print Language: [place] Discharge Orders/Prescriptions Prescriptions: New tramadol 50 mg [...] MD CC: Dr. Kanika Mike DO Signed [facility] MR/POSTOP.[facility] 04-24-2024 MR/POSTOP.[place] Medical Records Department [address] [place] [address] Anesthesia Postop Eval I 04/24/24 1412 MR#: [id number] Acct: [id number] Name: OCTAVIOCHELSEY THOMSON Hubert Rep #: [id number] : 1950 73 From: Luiza Rivas CRNA PCP: Dr. Kanika Mike DO Status:REG SDC Y Race: C Location: [place] [address] Anesthesia: Postop Eval I Current Vital Signs [...] completed: Yes 04/24/24 1413 Date Luiza Rivas DATA MINING ANALYST Chris Signature: Date CC: Signed Normal [facility] MR/PNDJBUVD9me 04-24-2024 MR/POSTOPAN2 [facility] Medical Records Department [address] [place] [address] Anesthesia Postop Eval II 04/24/24 1444 MR#: [id number] Acct: [id number] Name: CHELSEY BELTRAN Rep #: [id number] : 1950 73 From: Maurilio Calvo MD PCP: Dr. Kanika Mike, DO Status:REG SDC Y Race: C Location: [place] [address] Anesthesia Postop Eval I Sum Postop Eval Completion status Anesthesia document: Postop Eval 1 completed: Yes Anesthesia Postop Eval I Summary Anesthesia Postop Eval I Summary: Anesthesia Postop Eval I: Assessment Summary Airway patent Yes 04/24/24 14:13 DATA MINING ANALYST.SCHR Spontaneous unlabored Yes 04/24/24 14:13 DATA MINING ANALYST.SCHR respirations Mental status Awake,Calm 04/24/24 14:13 DATA MINING ANALYST.SCHR nausea No 04/24/24 14:13 DATA MINING ANALYST.SCHR Vomiting No 04/24/24 14:13 DATA MINING ANALYST.SCHR Anesthesia Postop Eval I: Fluid Summary Crystalloid volume administer 400 04/24/24 14:13 DATA MINING ANALYST.SCHR (ml) Colloids volume administered ( ml) Blood Product volume administered (ml) Total IV fluid infused 400 04/24/24 14:13 DATA MINING ANALYST.SCHR Anesthesia Postop Eval I: Summary Notes Anesthesia Complication No 04/24/24 14:13 DATA MINING ANALYST.SCHR Anesthesia Complication Comment: Post-operative progress note Anesthesia: Postop Eval II Evaluation Mental status: Awake Pain Level: 0 nausea: No Vomiting: No 04/24/24 1444 Date Maurilio Perez Signature: Date CC: Signed Normal [facility] Operative Reporton 4 Operative Report [facility] Medical Records Department [address] [place] [address] Operative Report 04/24/24 1355 MR#: [id number] Acct: [id number] Name: CHELSEY BELTRAN Rep #: [id number] : 1950 73 From: Opal Whitehead MD PCP: Dr. Kanika Mike DO Status:[facility] Location: [place] [address] Operative Report (Standard) Operative Information Surgery/Procedure Performed: [...] 12 mm trocar was closed with a iietln-yc-ahmml 0 Vicryl suture. The skin was closed with sutures of 4-0 Monocryl and Steri-Strips. The patient was extubated. The patient tolerated procedure well and was taken to the postanesthesia care unit in stable condition. Surgical Findings: Normal cholangiograms Photovoltaic Testing Technician coke burner: Yes Billing Coordinator: Maye Mitchell Tasks completed by cutter first: Opening closing and Retracting Complications Complications: No 04/24/24 8610 Cosigner Signature (if applicable): CC: Dr. Kanika Mike DO; Dr. Opal Whitehead MD Signed Normal [facility] Surgery Specimen Level IIIon 04-24-2024 Surgery Specimen Level III ---- Patient Age/Sex Location Account Attending Physician ---- CHELSEY BELTRAN 73/F [facility] [id number] Dr. Opal Whitehead MD ---- Specimen: [id number] Received: 04/25/24 Status: PORFIRIO Josseline Num: [id number] Spec Type: GEOVANNA Seaman Dr: Dr. Opal Whitehead MD HEADER OPERATION: Laparoscopic, cholecystectomy with IOC PRE-OP DIAGNOSIS: Elevated liver enzymes, cholelithiasis, choledocholithiasis TISSUE SUBMITTED: Gallbladder ---- MICROSCOPIC DIAGNOSIS Gallbladder, cholecystectomy: Acute and chronic cholecystitis and cholelithiasis. IQRA. 04/26/2024 MICROSCOPIC DESCRIPTION Slides are reviewed. GROSS DESCRIPTION Received is one container labeled with the patient's name and designated gallbladder. The specimen consists of a gallbladder measuring [...] Increased amount of subserosal fat is noted. Heating And Ventilation Engineer sections from the gallbladder and the cystic duct are submitted in one cassette. / SJ:mr 04/25/2024 TC:2 CPT: 01383 ---- Patient Age/Sex Location Account Attending Physician ---- CHELSEY BELTRAN 73/F [facility] [id number] Dr. Opal Whitehead MD ---- Signed (signature on file) Dr. Vince Main MD 04/26/24 1412 ---- Normal [facility] Comment on above: Performed By: #### P SUIII #### [facility] [address] [place], [address] Absolute lymphocyte countOrd ered By: Kanika Mike on 09-06-2023 Lymphocytes Auto (Unsp spec) [#/Vol] 1.69 10*3/uL 0.83-4.51 [facility] Albumin Elph [Mass/Vol]Order ed By: Kanika Mike on 09-06-2023 Albumin [Mass/Vol] 3.6 g/dL 2.9-4.4 [facility] Automated lymphocyte count a s percentage of total leukocytesOrdered By: Kanika Mike on 09-06-2023 Lymphocytes/100 WBC Auto (Unsp spec) 22.8 % 19-41 [facility] Basophil percentageOrdered B y: [place] Mike on 09-06-2023 Basophils/100 WBC (Bld) 0.8 % 0-1 [facility] Bilirubin [Mass/Vol] 0.70 mg/dL 0.20-1.00 [facility] Comment on above: For patients on eltr ombopag therapy, use of [place] TBIL is not recommended. Chloride [Moles/Vol] 106 mmol/L 98-107 [facility] Cholesterol [Mass/Vol] 141 mg/dL <200 [facility] Comment on above: <200 mg/dL Desirable 200-240 mg/dL Borderline >240 mg/dL High Risk Eosinophils/100 WBC (Bld) 2.0 % 0-5 [facility] Glucose [Mass/Vol] 94 mg/dL 74-106 [facility] Hemoglobin (Bld) [Mass/Vol] 10.8 g/dL 12.0-15.0 [facility] Monocytes/100 WBC (Bld) 8.5 % 0-10 [facility] Neutrophils (Bld) [#/Vol] 4.9 10*3/uL 2.0-7.7 [facility] Neutrophils/100 WBC (Bld) 65.6 % 47-70 [facility] Potassium [Moles/Vol] 4.1 mmol/L 3.5-5.1 [facility] Protein [Mass/Vol] 6.8 g/dL 6.4-8.2 [facility] Sodium [Moles/Vol] 139 mmol/L 136-145 [facility] Triglyceride [Mass/Vol] 92 mg/dL <199 [facility] Comment on above: The drugs N-Acetylcy steine and Metamizole may falsely depress this assay.Serum Triglycerides Reference Interval Normal <150 mg/dL Borderline high 150 - 199 mg/dL High 200 - 499 mg/dL Very High > or = 500 mg/dL WBC (Bld) [#/Vol] 7.4 10*3/uL 4.4-11.0 [facility] Determination of erythrocyte mean corpuscular volume (MCV)Ordered By: Kanika Mike on 09-06-2023 MCV (RBC) [Entitic vol] 86.5 fL 81-99 [facility] Erythrocyte distribution wid th ratioOrdered By: Kanika Mike on 09-06-2023 Erythrocyte distribution width (RBC) [Ratio] 14.2 % 11.6-14.6 [facility] Erythrocyte distribution wid th standard deviationOrdered By: Kanika Mike on 09-06-2023 Erythrocyte distribution width (RBC) [Entitic vol] 44.6 fL 35.1-43.9 [facility] Erythrocyte sedimentation ra teOrdered By: Kanika Mike on 09-06-2023 ESR (Bld) [Velocity] 11 mm/h 0-30 [facility] Hematocrit Auto (Bld) [Volum e fraction]Ordered By: Kanika Mike on 09-06-2023 Hematocrit (Bld) [Volume fraction] 35.8 % 37-47 [facility] Immature granulocytes/100 WB C Auto (Bld)Ordered By: Kanika Mike on 09-06-2023 Immature granulocytes/100 WBC (Bld) 0.300 % 0.0-0.9 [facility] Comment on above: IG% - Immature Granu locytes (promyelocytes, myelocytes and metamyelocytes) > 1% indicates that a LEFT SHIFT is Present. Laboratory - Chemistry and C hemistry - challengeOrdered By: Kanika Mike on 09-06-2023 Albumin/Globulin [Mass ratio] 1.0 {ratio} 0.9-2.4 [facility] ALP [Catalytic activity/Vol] 101 U/L 45-117 [facility] ALT [Catalytic activity/Vol] 25 U/L 13-56 [facility] Cholesterol in HDL [Mass/Vol] 74 mg/dL >40 [facility] Comment on above: The drugs N-Acetylcy steine and Metamizole may falsely depress this assay. Reference Range HDL <40 mg/dL Low HDL Cholesterol HDL >or= 60 mg/dL High HDL Cholesterol Cholesterol in LDL [Mass/Vol] 49 mg/dL 0-130 [facility] CO2 [Moles/Vol] 26.0 mmol/L 21.0-32.0 [facility] Cobalamin (Vitamin B12) [Mass/Vol] 258 pg/mL 211-911 [facility] Globulin (S) [Mass/Vol] 3.4 g/dL 2.2-4.2 [facility] Urea nitrogen/Creatinine [Mass ratio] 23.5 mg/mg 10-20 [facility] Laboratory - Hematology and Cell countsOrdered By: Kanika Mike on 09-06-2023 MCH (RBC) [Entitic mass] 26.1 pg 27.0-32.0 [facility] MCHC (RBC) [Mass/Vol] 30.2 g/dL 32-36 [facility] Nucleated RBC/100 WBC (Bld) [Ratio] 0 % 0-5 [facility] Platelet mean volume (Bld) [Entitic vol] 10.8 fL 6.2-12.0 [facility] Platelets (Bld) [#/Vol] 203 10*3/uL 150-450 [facility] No Panel InformationOrdered By: Kanika Mike on 09-06-2023 Addendum Document Comment . [facility] Comment on above: The SPE pattern appe ars unremarkable. Evidence ofmonoclonal protein is not apparent.Performed at: [facility] [employer] [id number] Director: Corky Damon PhD, Phone: [phone] Azzxu-7-Shirznfbd 0.3 g/dL 0.0-0.4 [facility] Wircm-2-Pxmfzqmvj 0.7 g/dL 0.4-1.0 [facility] C-Reactive Protein Extended Range < 2.90 mg/L 0.0-3.0 [facility] Comment on above: C-Reactive Protein ( CRP) provides useful information for thediagnosis, therapy and monitoring of inflammatory processesand associated diseases. For the evaluation of Relative Riskfor Cardiovascular Disease, a High Sensitivity CRP (HSCRP)should be ordered. Estimated GFR (MDRD) Amer 109 mL/min >60 [facility] Comment on above: GFR Calc Estimated GFR (MDRD) Non-Af Amer 90 mL/min >60 [facility] Comment on above: Non- GFR Calc Gamma Globulins 0.9 g/dL 0.4-1.8 [facility] Vitamin D 25-Hydroxy 38.4 ng/mL [facility] Comment on above: Vitamin D 25(OH) Sta tus Range Deficiency <20 ng/mL (50nmol/L) Insufficiency 20 - 30 ng/mL (50 - 75 nmol/L) Sufficiency 30 - 100 ng/mL (75 - 250 nmol/L) Toxicity >100 ng/mL (>250 nmol/L) VLDL Cholesterol 18 mg/dL 5-40 [facility] Protein Fractions Elph [Inte rp]Ordered By: Kanika Mike on 09-06-2023 Protein Fractions [Interp] Comment . [facility] Comment on above: Protein electrophore sis scan will follow via computer,mail, or bioinformatics support specialist delivery. RBC Auto (Bld) [#/Vol]Ordere d By: Kanika Mike on 09-06-2023 RBC (Bld) [#/Vol] 4.14 10*6/uL 4.2-5.4 [facility] Serum albumin to globulin ra khoa by protein electrophoresisOrdered By: Kanika Mike on 09-06-2023 Albumin/Globulin Elph [Mass ratio] 1.4 0.7-1.7 [facility] Serum globulin measurement ( mass/volume)Ordered By: Kanika Mike on 09-06-2023 Globulin (S) [Mass/Vol] 2.6 g/dL 2.2-3.9 [facility] Serum or plasma beta globuli n measurement by electrophoresis (mass/volume)Ordered By: Kanika Mike on 09-06-2023 Beta globulin Elph [Mass/Vol] 0.8 g/dL 0.7-1.3 [facility] Serum or plasma calcium huma urement (mass/volume)Ordered By: Kanika Mike on 09-06-2023 Calcium [Mass/Vol] 9.0 mg/dL 8.5-10.1 [facility] Serum or plasma creatinine m easurement (mass/volume)Ordered By: Kanika Mike on 09-06-2023 Creatinine [Mass/Vol] 0.68 mg/dL 0.55-1.02 [facility] Comment on above: The validity of the calculated GFR & GFRAA in patients over 70 years has not been determined. Clinical correlation is essential. Serum or plasma protein mono clonal measurement by electrophoresis (mass/volume)Ordered By: Kanika Mike on 09-06-2023 Protein.monoclonal Elph [Mass/Vol] Not Observed g/dL Not Observed [facility] Serum or plasma thyroid stim ulating hormone (TSH) measurement (units/volume)Ordered By: Kanika Mike on 09-06-2023 TSH Qn 2.83 uIU/mL 0.358-3.74 [facility] Serum or plasma urea nitroge n measurement (mass/volume)Ordered By: Kanika Mike on 09-06-2023 Urea nitrogen [Mass/Vol] 16 mg/dL 7-18 [facility] Thin prep Papanicolaou smear with manual screeningOrdered By: Kanika Mike on 09-06-2023 Thin prep Papanicolaou smear with manual screening 3.4 g/dL 3.2-5.0 [facility] Thin prep Papanicolaou smear with manual screening 18 U/L 15-37 [facility] Thin prep Papanicolaou smear with manual screening 7 5-15 [facility] Total protein bloodOrdered B y: Kanika Mike on 09-06-2023 Protein [Mass/Vol] 6.2 g/dL 6.0-8.5 [facility] Whole blood hemoglobin A1c/t otal hemoglobin ratio (mass fraction)Ordered By: Kanika Royman on 09-06-2023 HbA1c (Bld) [Mass fraction] 5.5 % 3.8-5.6 [facility] Comment on above: Normal < 5.7 % Predi abetic 5.7 - 6.4 % Diabetic >or= 6.5 % Please note range changes. Absolute lymphocyte countOrd ered By: ED PROVIDER on 08-11-2022 Lymphocytes Auto (Unsp spec) [#/Vol] 0.93 10*3/uL 0.83-4.51 [facility] Basophil percentageOrdered B y: ED PROVIDER on 08-11-2022 Basophils/100 WBC (Bld) 0.3 % 0-1 [facility] Chloride [Moles/Vol] 94 mmol/L 98-107 [facility] Eosinophils/100 WBC (Bld) 1.3 % 0-5 [facility] Glucose [Mass/Vol] 93 mg/dL 74-106 [facility] Neutrophils (Bld) [#/Vol] 2.4 10*3/uL 2.0-7.7 [facility] Neutrophils/100 WBC (Bld) 61.0 % 47-70 [facility] Potassium [Moles/Vol] 2.8 mmol/L 3.5-5.1 [facility] Sodium [Moles/Vol] 137 mmol/L 136-145 [facility] WBC (Bld) [#/Vol] 3.9 10*3/uL 4.4-11.0 [facility] Blood erythrocytes count (nu mber/volume)Ordered By: ED PROVIDER on 08-11-2022 RBC (Bld) [#/Vol] 4.53 10*6/uL 4.2-5.4 [facility] Blood hemoglobin measurement (mass/volume)Ordered By: ED PROVIDER on 08-11-2022 Hemoglobin (Bld) [Mass/Vol] 11.7 g/dL 12.0-15.0 [facility] Blood lymphocytes/100 leukoc ytesOrdered By: ED PROVIDER on 08-11-2022 Lymphocytes/100 WBC (Bld) 23.7 % 19-41 [facility] Blood monocytes/100 leukocyt esOrdered By: ED PROVIDER on 08-11-2022 Monocytes/100 WBC (Bld) 13.2 % 0-10 [facility] Blood platelet mean volumeOr dered By: ED PROVIDER on 08-11-2022 Platelet mean volume (Bld) [Entitic vol] 9.6 fL 6.2-12.0 [facility] Determination of erythrocyte mean corpuscular volume (MCV)Ordered By: ED PROVIDER on 08-11-2022 MCV (RBC) [Entitic vol] 81.9 fL 81-99 [facility] Hematocrit Auto (Bld) [Volum e fraction]Ordered By: ED PROVIDER on 08-11-2022 Hematocrit (Bld) [Volume fraction] 37.1 % 37-47 [facility] Influenza virus A and B and SARS-CoV-2 (COVID-19) Ag panel - Upper respiratory specimOrdered By: Dr. Infante on 08-11-2022 SARS-CoV-2 & FLU Antigen (Rapid) SARS-CoV-2 (COVID 19) [facility] Laboratory - Chemistry and C hemistry - challengeOrdered By: ED PROVIDER on 08-11-2022 CO2 [Moles/Vol] 24.0 mmol/L 21.0-32.0 [facility] Urea nitrogen/Creatinine [Mass ratio] 8.2 mg/mg 10-20 [facility] Laboratory - Hematology and Cell countsOrdered By: ED PROVIDER on 08-11-2022 Erythrocyte distribution width (RBC) [Entitic vol] 41.0 fL 35.1-43.9 [facility] Erythrocyte distribution width (RBC) [Ratio] 13.7 % 11.6-14.6 [facility] Immature granulocytes/100 WBC (Bld) 0.500 % 0.0-0.9 [facility] Comment on above: IG% - Immature Granu locytes (promyelocytes, myelocytes and metamyelocytes) > 1% indicates that a LEFT SHIFT is Present. MCH (RBC) [Entitic mass] 25.8 pg 27.0-32.0 [facility] Nucleated RBC/100 WBC (Bld) [Ratio] 0 % 0-5 [facility] MCHC Auto (RBC) [Mass/Vol]Or dered By: ED PROVIDER on 08-11-2022 MCHC (RBC) [Mass/Vol] 31.5 g/dL 32-36 [facility] No Panel InformationOrdered By: ED PROVIDER on 08-11-2022 Estimated Creatinine Clearance Calc 36.53 ml/min [facility] Estimated GFR (MDRD) Amer 101 mL/min >60 [facility] Comment on above: GFR Calc Estimated GFR (MDRD) Non-Af Amer 83 mL/min >60 [facility] Comment on above: Non- GFR Calc Platelets bldOrdered By: ED PROVIDER on 08-11-2022 Platelets (Bld) [#/Vol] 193 10*3/uL 150-450 [facility] Serum or plasma calcium huma urement (mass/volume)Ordered By: ED PROVIDER on 08-11-2022 Calcium [Mass/Vol] 9.0 mg/dL 8.5-10.1 [facility] Serum or plasma creatinine m easurement (mass/volume)Ordered By: ED PROVIDER on 08-11-2022 Creatinine [Mass/Vol] 0.73 mg/dL 0.55-1.02 [facility] Comment on above: The validity of the calculated GFR & GFRAA in patients over 70 years has not been determined. Clinical correlation is essential. Serum or plasma urea nitroge n measurement (mass/volume)Ordered By: ED PROVIDER on 08-11-2022 Urea nitrogen [Mass/Vol] 6 mg/dL 7-18 [facility] Thin prep Papanicolaou smear with manual screeningOrdered By: ED PROVIDER on 08-11-2022 Thin prep Papanicolaou smear with manual screening 19 5-15 [facility] Basophil percentageon 2021 Cholesterol [Mass/Vol] 123 mg/dL <200 [facility] Work Phone: Comment on above: <200 mg/dL Desirable 200-240 mg/dL Borderline >240 mg/dL High Risk Triglyceride [Mass/Vol] 72 mg/dL <199 [facility] Work Phone: Comment on above: The drugs N-Acetylcy steine and Metamizole may falsely depress this assay.Serum Triglycerides Reference Interval Normal <150 mg/dL Borderline high 150 - 199 mg/dL High 200 - 499 mg/dL Very High > or = 500 mg/dL Serum or plasma cholesterol in HDL measurement (mass/volume)on 04-05-2022 Cholesterol in HDL [Mass/Vol] 78 mg/dL >40 [facility] Work Phone: Comment on above: The drugs N-Acetylcy steine and Metamizole may falsely depress this assay. Reference Range HDL <40 mg/dL Low HDL Cholesterol HDL >or= 60 mg/dL High HDL Cholesterol Serum or plasma cholesterol in VLDL measurement (mass/volume)on 04-05-2022 Cholesterol in VLDL [Mass/Vol] 14 mg/dL 5-40 [facility] Work Phone: Serum or plasma low density lipoprotein (LDL) cholesterol measurement (mass/volume)on 04-05-2022 Cholesterol in LDL [Mass/Vol] 31 mg/dL 0-130 [facility] Work Phone: Absolute lymphocyte counton 03-22-2022 Lymphocytes Auto (Unsp spec) [#/Vol] 2.50 10*3/uL 0.83-4.51 [facility] Work Phone: Basophil percentageon 2021 Basophils/100 WBC (Bld) 0.4 % 0-1 [facility] Work Phone: Bilirubin [Mass/Vol] 0.50 mg/dL 0.20-1.00 [facility] Work Phone: Comment on above: For patients on eltr ombopag therapy, use of [place] TBIL is not recommended. Chloride [Moles/Vol] 106 mmol/L 98-107 [facility] Work Phone: Eosinophils/100 WBC (Bld) 1.3 % 0-5 [facility] Work Phone: [phone] Glucose [Mass/Vol] 100 mg/dL 74-106 [facility] Work Phone: [phone] Comment on above: Fasting Glucose resu lt from 100 to 125 mg/dL suggests IMPAIRED HOMEOSTASIS per A.D.A. criteria. Neutrophils (Bld) [#/Vol] 8.7 10*3/uL 2.0-7.7 [facility] Work Phone: [phone] Neutrophils/100 WBC (Bld) 68.8 % 47-70 [facility] Work Phone: [phone] Potassium [Moles/Vol] 3.5 mmol/L 3.5-5.1 [facility] Work Phone: Protein [Mass/Vol] 6.4 g/dL 6.4-8.2 [facility] Work Phone: Sodium [Moles/Vol] 142 mmol/L 136-145 [facility] Work Phone: [phone] WBC (Bld) [#/Vol] 12.7 10*3/uL 4.4-11.0 [facility] Work Phone: Blood erythrocytes count (nu mber/volume)on 03-22-2022 RBC (Bld) [#/Vol] 4.18 10*6/uL 4.2-5.4 [facility] Work Phone: Blood hemoglobin measurement (mass/volume)on 03-22-2022 Hemoglobin (Bld) [Mass/Vol] 11.1 g/dL 12.0-15.0 [facility] Work Phone: [phone] Blood lymphocytes/100 leukoc yteson 03-22-2022 Lymphocytes/100 WBC (Bld) 19.7 % 19-41 [facility] Work Phone: [phone] Blood monocytes/100 leukocyt eson 03-22-2022 Monocytes/100 WBC (Bld) 9.1 % 0-10 [facility] Work Phone: Blood platelet mean volumeon 03-22-2022 Platelet mean volume (Bld) [Entitic vol] 10.3 fL 6.2-12.0 [facility] Work Phone: Determination of erythrocyte mean corpuscular volume (MCV)on 03-22-2022 MCV (RBC) [Entitic vol] 86.1 fL 81-99 [facility] Work Phone: Erythrocyte sedimentation ra ebony 03-22-2022 ESR (Bld) [Velocity] 22 mm/h 0-30 [facility]: Hematocrit Auto (Bld) [Volum e fraction]on 03-22-2022 Hematocrit (Bld) [Volume fraction] 36.0 % 37-47 [facility] Work Phone: Laboratory - Chemistry and C hemistry - challengeon 03-22-2022 ALP [Catalytic activity/Vol] 85 U/L 45-117 [facility] Work Phone: ALT [Catalytic activity/Vol] 20 U/L 13-56 [facility] Work Phone: CO2 [Moles/Vol] 30.0 mmol/L 21.0-32.0 [facility] Work Phone: Globulin (S) [Mass/Vol] 3.3 g/dL 2.2-4.2 [facility] Work Phone: Urea nitrogen/Creatinine [Mass ratio] 22.2 mg/mg 10-20 [facility] Work Phone: Laboratory - Hematology and Cell countson 03-22-2022 Erythrocyte distribution width (RBC) [Entitic vol] 45.4 fL 35.1-43.9 [facility] Work Phone: Erythrocyte distribution width (RBC) [Ratio] 14.6 % 11.6-14.6 [facility] Work Phone: Immature granulocytes/100 WBC (Bld) 0.700 % 0.0-0.9 [facility] Work Phone: Comment on above: IG% - Immature Granu locytes (promyelocytes, myelocytes and metamyelocytes) > 1% indicates that a LEFT SHIFT is Present. MCH (RBC) [Entitic mass] 26.6 pg 27.0-32.0 [facility] Work Phone: Nucleated RBC/100 WBC (Bld) [Ratio] 0 % 0-5 [facility] Work Phone: MCHC Auto (RBC) [Mass/Vol]on 03-22-2022 MCHC (RBC) [Mass/Vol] 30.8 g/dL 32-36 [facility] Work Phone: No Panel Informationon 03-22 Estimated GFR (MDRD) Amer 84 mL/min >60 [facility] Work Phone: Comment on above: GFR Calc Estimated GFR (MDRD) Non-Af Amer 70 mL/min >60 [facility] Work Phone: Comment on above: Non- GFR Calc Thyroid Stimulating Hormone (TSH) 3.00 uIU/mL 0.358-3.74 [facility] Work Phone: Platelets bldon 03-22-2022 Platelets (Bld) [#/Vol] 249 10*3/uL 150-450 [facility] Work Phone: Serum or plasma albumin huma urement (mass/volume)on 03-22-2022 Albumin [Mass/Vol] 3.1 g/dL 3.2-5.0 [facility] Work Phone: Serum or plasma albumin/glob ulin mass ratioon 03-22-2022 Albumin/Globulin [Mass ratio] 0.9 {ratio} 0.9-2.4 [facility] Work Phone: Serum or plasma calcium huma urement (mass/volume)on 03-22-2022 Calcium [Mass/Vol] 9.2 mg/dL 8.5-10.1 [facility] Work Phone: Serum or plasma creatinine m easurement (mass/volume)on 03-22-2022 Creatinine [Mass/Vol] 0.85 mg/dL 0.55-1.02 [facility] Work Phone: Comment on above: The validity of the calculated GFR & GFRAA in patients over 70 years has not been determined. Clinical correlation is essential. Serum or plasma urea nitroge n measurement (mass/volume)on 03-22-2022 Urea nitrogen [Mass/Vol] 19 mg/dL 7-18 [facility] Work Phone: Thin prep Papanicolaou smear with manual screeningon 03-22-2022 Thin prep Papanicolaou smear with manual screening 10 U/L 15-37 [facility] Work Phone: Thin prep Papanicolaou smear with manual screening 6 5-15 [facility] Work Phone: BMPon 11-20-2021 Anion gap [Moles/Vol] 5 mmol/L Normal 5-16 [facility] Comment on above: Order Comment: Campu s: M Performed By: #### L [id number], [id number] #### [facility] [address] [place] [address] Calcium [Mass/Vol] 9.7 mg/dL Normal 8.5-10.5 [facility] Comment on above: Order Comment: Campu s: M Result Comment: NOTE NEW NORMAL RANGE DUE TO REAGENT CHANGE Performed By: #### L [id number], [id number] #### [facility] [place] [address] Chloride [Moles/Vol] 107 mmol/L Normal 98-107 [facility] Comment on above: Order Comment: Campu s: M Performed By: #### L [id number], [id number] #### [facility] [place] [address] CO2 [Moles/Vol] 26.0 mmol/L Normal 21-32 [facility] Comment on above: Order Comment: Campu s: M Performed By: #### L [id number], [id number] #### [facility] [address] [place] [address] Creatinine [Mass/Vol] 0.66 mg/dL Normal 0.510- 0.95 0 [facility] Comment on above: Order Comment: Campu s: M Result Comment: Emma ents receiving either N-Acetylcysteine (NAC) or Metamizole prior to venipuncture, may have falsely depressed results. Performed By: #### L [id number], L500.18094 #### [facility] [address] [place] [address] Glucose [Mass/Vol] 112 mg/dL High 70-100 [facility] Comment on above: Order Comment: Campu s: M Result Comment: 70-1 00- Normal Fasting; 100-125 Impaired Fasting; greater than 126 on more than one result- Diabetes. ADA guidelines. Results may be falsely elevated after the administration of Sulfapyridine. Results may be falsely depressed after the administration of Sulfasalazine. Performed By: #### L 500.36506, L500.22739 #### [facility] [address] [place] [address] Potassium [Moles/Vol] 3.5 mmol/L Normal 3.5-5.1 [facility] Comment on above: Order Comment: Campu s: M Performed By: #### L 500.67835, L500.22893 #### [facility] [address] [place] [address] Sodium [Moles/Vol] 138 mmol/L Normal 136-145 [facility] Comment on above: Order Comment: Campu s: M Performed By: #### L 500.62328, L500.74778 #### [facility] [address] [place], [place] [id number] Urea nitrogen [Mass/Vol] 18 mg/dL Normal 7-26 [facility] Comment on above: Order Comment: Campu s: M Performed By: #### L 500.09053, L500.14524 #### [facility] [address] [place] [address] Urea nitrogen/Creatinine [Mass ratio] 27 mg/mg High 15-24 [facility] Comment on above: Order Comment: Campu s: M Performed By: #### L 500.29495, L500.63067 #### [facility] [address] [place] [address] CBCon 11-20-2021 Erythrocyte distribution width (RBC) [Ratio] 15.5 % High 11-14.5 [facility] Comment on above: Order Comment: Campu s: M Performed By: #### L [id number] #### [facility] [address] [place] [address] Hematocrit (Bld) [Volume fraction] 36.3 % Normal 35.0-47.0 [facility] Comment on above: Order Comment: Campu s: M Performed By: #### L [id number] #### [facility] [address] [place], [place] [address] Hemoglobin (Bld) [Mass/Vol] 11.8 g/dL Normal 11.5-15.5 [facility] Comment on above: Order Comment: Campu s: M Performed By: #### L [id number] #### [facility] [address] [place], [place] [address] MCHC (RBC) [Mass/Vol] 32.5 g/dL Normal 32.0-36.0 [facility] Comment on above: Order Comment: Campu s: M Performed By: #### L [id number] #### [facility] [address] [place], [place] [address] MCV (RBC) [Entitic vol] 90.5 fL Normal 80.0-99.0 M [facility] Comment on above: Order Comment: Campu s: M Performed By: #### L [id number] #### [facility] [address] [place] [address] Nucleated RBC/100 WBC (Bld) [Ratio] 0.0 % Normal Less than 1 [facility] Comment on above: Order Comment: Campu s: M Performed By: #### L [id number] #### [facility] [address] [place] [address] Platelet mean volume (Bld) [Entitic vol] 9.4 fL Normal 9.4-12.4 [facility] Comment on above: Order Comment: Campu s: M Performed By: #### L [id number] #### [facility] [address] [place] [address] PLT 230 K/CU MM Normal 150-450 [facility] Comment on above: Order Comment: Campu s: M Performed By: #### L [id number] #### [facility] [address] [place] [address] RBC 4.01 M/CU MM Normal 3.90-5.30 [facility] Comment on above: Order Comment: Campu s: M Performed By: #### L [id number] #### [facility] [address] [place] [address] WBC 14.6 K/CUMM High 4.5-11.0 [facility] Comment on above: Order Comment: Campu s: M Performed By: #### L [id number] #### [facility] [address] [place] [address] EKGon 11-20-2021 Electrocardiogram Procedure Date and Time: [...] By:Benito TORRES M.D.FACC Jeffrey DDandT: 11/20/21917 TDandT: [facility] PATIENT NAME: CHELSEY BELTRAN [address] [place] [address] Dr. Nunez MEDICAL REC #: [id number] [place] [address] ADMIT DATE: DISCHARGE DATE: ATTENDING PHY: Layla Holm MD ELECTROCARDIOGRAM REPORT CLB cc: [facility] PATIENT NAME: CHELSEY BELTRAN [address] [place] [address] Dr. Nunez MEDICAL REC #: [id number] [place] [address] ADMIT DATE: DISCHARGE DATE: ATTENDING PHY: Layla Holm MD ELECTROCARDIOGRAM REPORT Normal [facility] GFR ESTon 11-20-2021 IF AMER Greater than 60 Normal [facility] Comment on above: Order Comment: Sylvain s: M Performed By: #### L [id number], L500.01333 #### [facility] [address] [place] [address] IF non-AFR AMER Greater than 60 Normal [facility] Comment on above: Order Comment: Sanjayu s: M Performed By: #### L 500.59806, L500.34376 #### [facility] [address] [place] [address] PTon 11-20-2021 INR Coag (PPP) [Relative time] 1.01 {INR} Normal 0.9-1.1 [facility] Comment on above: Order Comment: Sylvain s: M Result Comment: Bob mmended PT INR therapeutic range for [facility] and prophylactic therapy is 2.0 - 3.0. For heart valve and shunt patients the range is 2.5 - 3.5. Performed By: #### L 300.11509 #### [facility] [address] [place] [address] PTS 11.0 SECONDS Normal 9.5-12.0 [facility] Comment on above: Order Comment: Sylvain s: M Performed By: #### L 300.10161 #### [facility] [address] [place] [address] XR CHEST PA/APon 09-28-2021 XR CHEST PA/AP [...] on TueSep 28, 2021 3:44:04 PM EDT [facility] Comment on above: Order Comment: Injur y/Trauma or Illness?:Illness/Other How long have you had these symptoms (acute/chronic)?:Acute Reason for exam?:vomitting, near syncope History of cancer?:no Surgeries, chemotherapy, or radiation?:no Type of Exam?:Initial Additional signs and symptoms?:hx of afib Basophil percentageon 2021 Bilirubin [Mass/Vol] 0.70 mg/dL 0.20-1.00 [facility] Work Phone: Comment on above: For patients on eltr ombopag therapy, use of [place] TBIL is not recommended. Chloride [Moles/Vol] 105 mmol/L 98-107 [facility] Work Phone: Cholesterol [Mass/Vol] 141 mg/dL <200 [facility] Work Phone: Comment on above: <200 mg/dL Desirable 200-240 mg/dL Borderline >240 mg/dL High Risk Glucose [Mass/Vol] 104 mg/dL 74-106 [facility] Work Phone: Comment on above: Fasting Glucose resu lt from 100 to 125 mg/dL suggests IMPAIRED HOMEOSTASIS per A.D.A. criteria. Potassium [Moles/Vol] 3.7 mmol/L 3.5-5.1 [facility] Work Phone: Protein [Mass/Vol] 6.2 g/dL 6.4-8.2 [facility] Work Phone: Sodium [Moles/Vol] 138 mmol/L 136-145 [facility] Work Phone: Triglyceride [Mass/Vol] 84 mg/dL [facility] Work Phone: Comment on above: The drugs N-Acetylcy steine and Metamizole may falsely depress this assay.Serum Triglycerides Reference Interval Normal <150 mg/dL Borderline high 150 - 199 mg/dL High 200 - 499 mg/dL Very High > or = 500 mg/dL Direct bilirubinon 2 Bilirubin.direct [Mass/Vol] 0.17 mg/dL 0.00-0.30 [facility] Work Phone: Laboratory - Chemistry and C hemistry - challengeon 09-09-2021 ALP [Catalytic activity/Vol] 73 U/L 45-117 [facility] Work Phone: ALT [Catalytic activity/Vol] 34 U/L 13-56 [facility] Work Phone: CO2 [Moles/Vol] 27.0 mmol/L 21.0-32.0 [facility] Work Phone: Globulin (S) [Mass/Vol] 3.0 g/dL 2.2-4.2 [facility] Work Phone: Magnesium [Mass/Vol] 2.1 mg/dL 1.6-2.6 [facility] Work Phone: Urea nitrogen/Creatinine [Mass ratio] 30.5 mg/mg 10-20 [facility] Work Phone: No Panel Informationon 09-09 Estimated GFR (MDRD) Amer 97 mL/min >60 [facility] Work Phone: Comment on above: GFR Calc Estimated GFR (MDRD) Non-Af Amer 80 mL/min >60 [facility] Work Phone: Comment on above: Non- GFR Calc Serum or plasma albumin huma urement (mass/volume)on 09-09-2021 Albumin [Mass/Vol] 3.2 g/dL 3.2-5.0 [facility] Work Phone: Serum or plasma calcium huma urement (mass/volume)on 09-09-2021 Calcium [Mass/Vol] 9.0 mg/dL 8.5-10.1 [facility] Work Phone: Serum or plasma cholesterol in HDL measurement (mass/volume)on 09-09-2021 Cholesterol in HDL [Mass/Vol] 84 mg/dL [facility] Work Phone: Comment on above: The drugs N-Acetylcy steine and Metamizole may falsely depress this assay. Reference Range HDL <40 mg/dL Low HDL Cholesterol HDL >or= 60 mg/dL High HDL Cholesterol Serum or plasma cholesterol in VLDL measurement (mass/volume)on 09-09-2021 Cholesterol in VLDL [Mass/Vol] 17 mg/dL 5-40 [facility] Work Phone: Serum or plasma creatinine m easurement (mass/volume)on 09-09-2021 Creatinine [Mass/Vol] 0.76 mg/dL 0.55-1.02 [facility] Work Phone: Comment on above: The validity of the calculated GFR & GFRAA in patients over 70 years has not been determined. Clinical correlation is essential. Serum or plasma low density lipoprotein (LDL) cholesterol measurement (mass/volume)on 09-09-2021 Cholesterol in LDL [Mass/Vol] 40 mg/dL 0-130 [facility] Work Phone: Serum or plasma urea nitroge n measurement (mass/volume)on 09-09-2021 Urea nitrogen [Mass/Vol] 23 mg/dL 7-18 [facility] Work Phone: Thin prep Papanicolaou smear with manual screeningon 09-09-2021 Thin prep Papanicolaou smear with manual screening 11 U/L 15-37 [facility] Work Phone: Thin prep Papanicolaou smear with manual screening 6 5-15 [facility] Work Phone: Absolute lymphocyte counton 08-26-2021 Lymphocytes Auto (Unsp spec) [#/Vol] 2.09 10*3/uL 0.83-4.51 [facility] Work Phone: Basophil percentageon 2021 Basophils/100 WBC (Bld) 0.4 % 0-1 [facility] Work Phone: Chloride [Moles/Vol] 104 mmol/L 98-107 [facility] Work Phone: Eosinophils/100 WBC (Bld) 0.1 % 0-5 [facility] Work Phone: Glucose [Mass/Vol] 136 mg/dL 74-106 [facility] Work Phone: Comment on above: Fasting Glucose resu lt greater than or equal to 126 mg/dL suggests DIABETES MELLITUS per A.D.A. criteria. Neutrophils (Bld) [#/Vol] 11.1 10*3/uL 2.0-7.7 [facility] Work Phone: Neutrophils/100 WBC (Bld) 76.1 % 47-70 [facility] Work Phone: Potassium [Moles/Vol] 4.0 mmol/L 3.5-5.1 [facility] Work Phone: [phone] Sodium [Moles/Vol] 138 mmol/L 136-145 [facility] Work [facility]: WBC (Bld) [#/Vol] 14.6 10*3/uL 4.4-11.0 [facility] Work Phone: Blood erythrocytes count (nu mber/volume)on 08-26-2021 RBC (Bld) [#/Vol] 4.52 10*6/uL 4.2-5.4 [facility] Work Phone: Blood hemoglobin measurement (mass/volume)on 08-26-2021 Hemoglobin (Bld) [Mass/Vol] 12.7 g/dL 12.0-15.0 [facility] Work Phone: Blood lymphocytes/100 leukoc yteson 08-26-2021 Lymphocytes/100 WBC (Bld) 14.3 % 19-41 [facility] Work Phone: Blood monocytes/100 leukocyt eson 08-26-2021 Monocytes/100 WBC (Bld) 6.1 % 0-10 [facility] Work Phone: Blood platelet mean volumeon 08-26-2021 Platelet mean volume (Bld) [Entitic vol] 9.8 fL 6.2-12.0 [facility] Work Phone: Determination of erythrocyte mean corpuscular volume (MCV)on 08-26-2021 MCV (RBC) [Entitic vol] 88.5 fL 81-99 [facility] Work Phone: Hematocrit Auto (Bld) [Volum e fraction]on 08-26-2021 Hematocrit (Bld) [Volume fraction] 40.0 % 37-47 [facility] Work Phone: Laboratory - Chemistry and C hemistry - challengeon 08-26-2021 CO2 [Moles/Vol] 28.0 mmol/L 21.0-32.0 [facility] Work Phone: Natriuretic peptide B (Bld) [Mass/Vol] 108.1 pg/mL 0-100 [facility] Work Phone: Urea nitrogen/Creatinine [Mass ratio] 27.3 mg/mg 10-20 [facility] Work Phone: Laboratory - Hematology and Cell countson 08-26-2021 Erythrocyte distribution width (RBC) [Entitic vol] 53.1 fL 35.1-43.9 [facility] Work Phone: Erythrocyte distribution width (RBC) [Ratio] 16.6 % 11.6-14.6 [facility] Work Phone: Immature granulocytes/100 WBC (Bld) 3.000 % 0.0-0.9 [facility] Work Phone: Comment on above: IG% - Immature Granu locytes (promyelocytes, myelocytes and metamyelocytes) > 1% indicates that a LEFT SHIFT is Present. MCH (RBC) [Entitic mass] 28.1 pg 27.0-32.0 [facility] Work Phone: Nucleated RBC/100 WBC (Bld) [Ratio] 0 % 0-5 [facility] Work Phone: MCHC Auto (RBC) [Mass/Vol]on 08-26-2021 MCHC (RBC) [Mass/Vol] 31.8 g/dL 32-36 [facility] Work Phone: No Panel Informationon 08-26 Estimated Creatinine Clearance Calc 37.06 ml/min [facility] Work Phone: Estimated GFR (MDRD) Amer 107 mL/min >60 [facility] Work Phone: Comment on above: GFR Calc Estimated GFR (MDRD) Non-Af Amer 88 mL/min >60 [facility] Work Phone: Comment on above: Non- GFR Calc Platelets bldon 08-26-2021 Platelets (Bld) [#/Vol] 221 10*3/uL 150-450 [facility] Work Phone: Serum or plasma calcium huma urement (mass/volume)on 08-26-2021 Calcium [Mass/Vol] 8.8 mg/dL 8.5-10.1 [facility] Work Phone: Serum or plasma creatinine m easurement (mass/volume)on 08-26-2021 Creatinine [Mass/Vol] 0.70 mg/dL 0.55-1.02 [facility] Work Phone: Comment on above: The validity of the calculated GFR & GFRAA in patients over 70 years has not been determined. Clinical correlation is essential. Serum or plasma urea nitroge n measurement (mass/volume)on 08-26-2021 Urea nitrogen [Mass/Vol] 19 mg/dL 7-18 [facility] Work Phone: Thin prep Papanicolaou smear with manual screeningon 08-26-2021 Thin prep Papanicolaou smear with manual screening 6 5-15 [facility] Work Phone: Absolute lymphocyte counton 08-16-2021 Lymphocytes Auto (Unsp spec) [#/Vol] 4.06 10*3/uL 0.83-4.51 [facility] Work Phone: Basophil percentageon 2021 Basophils/100 WBC (Bld) 0.3 % 0-1 [facility] Work Phone: Chloride [Moles/Vol] 108 mmol/L 98-107 [facility] Work Phone: Eosinophils/100 WBC (Bld) 0.6 % 0-5 [facility] Work Phone: Glucose [Mass/Vol] 95 mg/dL 74-106 [facility] Work Phone: Neutrophils (Bld) [#/Vol] 8.6 10*3/uL 2.0-7.7 [facility] Work Phone: Neutrophils/100 WBC (Bld) 61.3 % 47-70 [facility] Work Phone: Potassium [Moles/Vol] 3.4 mmol/L 3.5-5.1 [facility] Work Phone: Sodium [Moles/Vol] 140 mmol/L 136-145 [facility] Work Phone: WBC (Bld) [#/Vol] 14.1 10*3/uL 4.4-11.0 [facility] Work Phone: Blood erythrocytes count (nu mber/volume)on 08-16-2021 RBC (Bld) [#/Vol] 4.55 10*6/uL 4.2-5.4 [facility] Work Phone: Blood hemoglobin measurement (mass/volume)on 08-16-2021 Hemoglobin (Bld) [Mass/Vol] 12.7 g/dL 12.0-15.0 [facility] Work Phone: Blood lymphocytes/100 leukoc yteson 08-16-2021 Lymphocytes/100 WBC (Bld) 28.8 % 19-41 [facility] Work Phone: Blood manual differential co mment interpretation (narrative result)on 08-16-2021 Manual differential comment Dennys (Bld) [Interp] SCANNED [facility] Work Phone: Blood monocytes/100 leukocyt eson 08-16-2021 Monocytes/100 WBC (Bld) 7.3 % 0-10 [facility] Work Phone: Blood platelet mean volumeon 08-16-2021 Platelet mean volume (Bld) [Entitic vol] 10.0 fL 6.2-12.0 [facility] Work Phone: Determination of erythrocyte mean corpuscular volume (MCV)on 08-16-2021 MCV (RBC) [Entitic vol] 87.5 fL 81-99 [facility] Work Phone: Hematocrit Auto (Bld) [Volum e fraction]on 08-16-2021 Hematocrit (Bld) [Volume fraction] 39.8 % 37-47 [facility] Work Phone: Laboratory - Chemistry and C hemistry - challengeon 08-16-2021 CO2 [Moles/Vol] 27.0 mmol/L 21.0-32.0 [facility] Work Phone: Natriuretic peptide B (Bld) [Mass/Vol] 150.5 pg/mL 0-100 [facility] Work Phone: Urea nitrogen/Creatinine [Mass ratio] 28.2 mg/mg 10-20 [facility] Work Phone: Laboratory - Hematology and Cell countson 08-16-2021 Erythrocyte distribution width (RBC) [Entitic vol] 51.8 fL 35.1-43.9 [facility] Work Phone: Erythrocyte distribution width (RBC) [Ratio] 16.3 % 11.6-14.6 [facility] Work Phone: Immature granulocytes/100 WBC (Bld) 1.700 % 0.0-0.9 [facility] Work Phone: Comment on above: IG% - Immature Granu locytes (promyelocytes, myelocytes and metamyelocytes) > 1% indicates that a LEFT SHIFT is Present. MCH (RBC) [Entitic mass] 27.9 pg 27.0-32.0 [facility] Work Phone: Nucleated RBC/100 WBC (Bld) [Ratio] 0 % 0-5 [facility] Work Phone: MCHC Auto (RBC) [Mass/Vol]on 08-16-2021 MCHC (RBC) [Mass/Vol] 31.9 g/dL 32-36 [facility] Work [facility]: No Panel Informationon 08-16 Estimated Creatinine Clearance Calc 37.06 ml/min [facility] Work Phone: Estimated GFR (MDRD) Amer 104 mL/min >60 [facility] Work Phone: Comment on above: GFR Calc Estimated GFR (MDRD) Non-Af Amer 86 mL/min >60 [facility] Work Phone: Comment on above: Non- GFR Calc Reactive Lymphocytes [facility]+ [facility] Work [facility]: Troponin I High Sensitivity 6 pg/mL 3.0-54.0 [facility] Work Phone: Comment on above: Please Note: New Kelly t Units and Gender Specific Reference Ranges. For more information see Policy Stat Procedure [place] High Sensitivity Troponin (TNIH) and attachments. Platelets bldon 08-16-2021 Platelets (Bld) [#/Vol] 205 10*3/uL 150-450 [facility] Work Phone: Serum or plasma calcium huma urement (mass/volume)on 08-16-2021 Calcium [Mass/Vol] 8.6 mg/dL 8.5-10.1 [facility] Work Phone: Serum or plasma creatinine m easurement (mass/volume)on 08-16-2021 Creatinine [Mass/Vol] 0.71 mg/dL 0.55-1.02 [facility] Work Phone: Comment on above: The validity of the calculated GFR & GFRAA in patients over 70 years has not been determined. Clinical correlation is essential. Serum or plasma urea nitroge n measurement (mass/volume)on 08-16-2021 Urea nitrogen [Mass/Vol] 20 mg/dL 7-18 [facility] Work Phone: Thin prep Papanicolaou smear with manual screeningon 08-16-2021 Thin prep Papanicolaou smear with manual screening 5 5-15 [facility] Work Phone: Absolute lymphocyte counton 08-10-2021 Lymphocytes Auto (Unsp spec) [#/Vol] 2.47 10*3/uL 0.83-4.51 [facility] Work Phone: Basophil percentageon 2021 Basophils/100 WBC (Bld) 0.2 % 0-1 [facility] Work Phone: Chloride [Moles/Vol] 107 mmol/L 98-107 [facility] Work Phone: [phone] Eosinophils/100 WBC (Bld) 0.6 % 0-5 [facility] Work Phone: Glucose [Mass/Vol] 110 mg/dL 74-106 [facility] Work Phone: Comment on above: Fasting Glucose resu lt from 100 to 125 mg/dL suggests IMPAIRED HOMEOSTASIS per A.D.A. criteria. Neutrophils (Bld) [#/Vol] 8.4 10*3/uL 2.0-7.7 [facility] Work Phone: Neutrophils/100 WBC (Bld) 69.3 % 47-70 [facility] Work Phone: Potassium [Moles/Vol] 4.1 mmol/L 3.5-5.1 [facility] Work Phone: [phone] Sodium [Moles/Vol] 139 mmol/L 136-145 [facility] Work Phone: WBC (Bld) [#/Vol] 12.1 10*3/uL 4.4-11.0 [facility] Work Phone: Blood erythrocytes count (nu mber/volume)on 08-10-2021 RBC (Bld) [#/Vol] 4.10 10*6/uL 4.2-5.4 [facility] Work Phone: Blood hemoglobin measurement (mass/volume)on 08-10-2021 Hemoglobin (Bld) [Mass/Vol] 11.5 g/dL 12.0-15.0 [facility] Work Phone: Blood lymphocytes/100 leukoc yteson 08-10-2021 Lymphocytes/100 WBC (Bld) 20.4 % 19-41 [facility] Work Phone: Blood monocytes/100 leukocyt eson 08-10-2021 Monocytes/100 WBC (Bld) 7.3 % 0-10 [facility] Work Phone: Blood platelet mean volumeon 08-10-2021 Platelet mean volume (Bld) [Entitic vol] 9.6 fL 6.2-12.0 [facility] Work Phone: Determination of erythrocyte mean corpuscular volume (MCV)on 08-10-2021 MCV (RBC) [Entitic vol] 89.0 fL 81-99 [facility] Work Phone: Hematocrit Auto (Bld) [Volum e fraction]on 08-10-2021 Hematocrit (Bld) [Volume fraction] 36.5 % 37-47 [facility] Work Phone: Laboratory - Chemistry and C hemistry - challengeon 08-10-2021 CO2 [Moles/Vol] 25.0 mmol/L 21.0-32.0 [facility] Work Phone: Urea nitrogen/Creatinine [Mass ratio] 39.0 mg/mg 10-20 [facility] Work Phone: Laboratory - Hematology and Cell countson 08-10-2021 Erythrocyte distribution width (RBC) [Entitic vol] 52.0 fL 35.1-43.9 [facility] Work Phone: Erythrocyte distribution width (RBC) [Ratio] 16.0 % 11.6-14.6 [facility] Work Phone: Immature granulocytes/100 WBC (Bld) 2.200 % 0.0-0.9 [facility] Work Phone: Comment on above: IG% - Immature Granu locytes (promyelocytes, myelocytes and metamyelocytes) > 1% indicates that a LEFT SHIFT is Present. MCH (RBC) [Entitic mass] 28.0 pg 27.0-32.0 [facility] Work Phone: Nucleated RBC/100 WBC (Bld) [Ratio] 0 % 0-5 [facility] Work Phone: MCHC Auto (RBC) [Mass/Vol]on 08-10-2021 MCHC (RBC) [Mass/Vol] 31.5 g/dL 32-36 [facility] Work Phone: No Panel Informationon 08-10 Estimated Creatinine Clearance Calc 37.06 ml/min [facility] Work Phone: Estimated GFR (MDRD) Amer 129 mL/min >60 [facility] Work Phone: Comment on above: GFR Calc Estimated GFR (MDRD) Non-Af Amer 107 mL/min >60 [facility] Work Phone: Comment on above: Non- GFR Calc Platelets bldon 08-10-2021 Platelets (Bld) [#/Vol] 168 10*3/uL 150-450 [facility] Work Phone: Serum or plasma calcium huma urement (mass/volume)on 08-10-2021 Calcium [Mass/Vol] 8.1 mg/dL 8.5-10.1 [facility] Work Phone: Serum or plasma creatinine m easurement (mass/volume)on 08-10-2021 Creatinine [Mass/Vol] 0.59 mg/dL 0.55-1.02 [facility] Work Phone: Comment on above: The validity of the calculated GFR & GFRAA in patients over 70 years has not been determined. Clinical correlation is essential. Serum or plasma urea nitroge n measurement (mass/volume)on 08-10-2021 Urea nitrogen [Mass/Vol] 23 mg/dL 7-18 [facility] Work Phone: Thin prep Papanicolaou smear with manual screeningon 08-10-2021 Thin prep Papanicolaou smear with manual screening 7 5-15 [facility] Work Phone: No Panel Informationon 08-08 Troponin I High Sensitivity 12 pg/mL 3.0-54.0 [facility] Work Phone: Comment on above: Please Note: New Kelly t Units and Gender Specific Reference Ranges. For more information see Policy Stat Procedure [place] High Sensitivity Troponin (TNIH) and attachments. Absolute lymphocyte counton 08-02-2021 Lymphocytes Auto (Unsp spec) [#/Vol] 1.42 10*3/uL 0.83-4.51 [facility] Work Phone: Basophil percentageon 2021 Basophils/100 WBC (Bld) 0.2 % 0-1 [facility] Work Phone: Chloride [Moles/Vol] 106 mmol/L 98-107 [facility] Work Phone: Eosinophils/100 WBC (Bld) 0.3 % 0-5 [facility] Work Phone: Glucose [Mass/Vol] 142 mg/dL 74-106 [facility] Work Phone: Comment on above: Fasting Glucose resu lt greater than or equal to 126 mg/dL suggests DIABETES MELLITUS per A.D.A. criteria. Neutrophils (Bld) [#/Vol] 10.6 10*3/uL 2.0-7.7 [facility] Work Phone: Neutrophils/100 WBC (Bld) 80.4 % 47-70 [facility] Work Phone: Potassium [Moles/Vol] 3.8 mmol/L 3.5-5.1 [facility] Work Phone: Comment on above: Moderate Hemolysis, Result may be falsely increased. Sodium [Moles/Vol] 137 mmol/L 136-145 [facility] Work Phone: WBC (Bld) [#/Vol] 13.2 10*3/uL 4.4-11.0 [facility] Work Phone: Blood erythrocytes count (nu mber/volume)on 08-02-2021 RBC (Bld) [#/Vol] 4.57 10*6/uL 4.2-5.4 [facility] Work Phone: Blood hemoglobin measurement (mass/volume)on 08-02-2021 Hemoglobin (Bld) [Mass/Vol] 13.2 g/dL 12.0-15.0 [facility] Work Phone: Blood lymphocytes/100 leukoc yteson 08-02-2021 Lymphocytes/100 WBC (Bld) 10.8 % 19-41 [facility] Work Phone: Blood monocytes/100 leukocyt eson 08-02-2021 Monocytes/100 WBC (Bld) 7.3 % 0-10 [facility] Work Phone: Blood platelet mean volumeon 08-02-2021 Platelet mean volume (Bld) [Entitic vol] 9.9 fL 6.2-12.0 [facility] Work Phone: Determination of erythrocyte mean corpuscular volume (MCV)on 08-02-2021 MCV (RBC) [Entitic vol] 85.1 fL 81-99 [facility] Work Phone: Hematocrit Auto (Bld) [Volum e fraction]on 08-02-2021 Hematocrit (Bld) [Volume fraction] 38.9 % 37-47 [facility] Work Phone: Laboratory - Chemistry and C hemistry - challengeon 08-02-2021 CO2 [Moles/Vol] 27.0 mmol/L 21.0-32.0 [facility] Work Phone: Urea nitrogen/Creatinine [Mass ratio] 28.8 mg/mg 10-20 [facility] Work Phone: Laboratory - Hematology and Cell countson 08-02-2021 Erythrocyte distribution width (RBC) [Entitic vol] 48.5 fL 35.1-43.9 [facility] Work Phone: Erythrocyte distribution width (RBC) [Ratio] 15.9 % 11.6-14.6 [facility] Work Phone: Immature granulocytes/100 WBC (Bld) 1.000 % 0.0-0.9 [facility] Work Phone: Comment on above: IG% - Immature Granu locytes (promyelocytes, myelocytes and metamyelocytes) > 1% indicates that a LEFT SHIFT is Present. MCH (RBC) [Entitic mass] 28.9 pg 27.0-32.0 [facility] Work Phone: Nucleated RBC/100 WBC (Bld) [Ratio] 0 % 0-5 [facility] Work Phone: MCHC Auto (RBC) [Mass/Vol]on 08-02-2021 MCHC (RBC) [Mass/Vol] 33.9 g/dL 32-36 [facility] Work Phone: No Panel Informationon 08-02 Estimated Creatinine Clearance Calc 71.31 ml/min [facility] Work Phone: Estimated GFR (MDRD) Amer 101 mL/min >60 [facility] Work Phone: Comment on above: GFR Calc Estimated GFR (MDRD) Non-Af Amer 84 mL/min >60 [facility] Work Phone: Comment on above: Non- GFR Calc Thyroid Stimulating Hormone (TSH) 1.88 uIU/mL 0.358-3.74 [facility] Work Phone: Troponin I High Sensitivity 6 pg/mL 3.0-54.0 [facility] Work Phone: Comment on above: Please Note: New Kelly t Units and Gender Specific Reference Ranges. For more information see Policy Stat Procedure [place] High Sensitivity Troponin (TNIH) and attachments. Platelets bldon 08-02-2021 Platelets (Bld) [#/Vol] 244 10*3/uL 150-450 [facility] Work Phone: Serum or plasma calcium huma urement (mass/volume)on 08-02-2021 Calcium [Mass/Vol] 8.6 mg/dL 8.5-10.1 [facility] Work Phone: Serum or plasma creatinine m easurement (mass/volume)on 08-02-2021 Creatinine [Mass/Vol] 0.73 mg/dL 0.55-1.02 [facility] Work Phone: Comment on above: The validity of the calculated GFR & GFRAA in patients over 70 years has not been determined. Clinical correlation is essential. Serum or plasma urea nitroge n measurement (mass/volume)on 08-02-2021 Urea nitrogen [Mass/Vol] 21 mg/dL 7-18 [facility] Work Phone: Thin prep Papanicolaou smear with manual screeningon 08-02-2021 Thin prep Papanicolaou smear with manual screening 4 5-15 [facility] Work Phone: Absolute lymphocyte counton 06-30-2021 Lymphocytes Auto (Unsp spec) [#/Vol] 1.64 10*3/uL 0.83-4.51 [facility] Work Phone: Basophil percentageon 2021 Basophils/100 WBC (Bld) 0.4 % 0-1 [facility] Work Phone: Chloride [Moles/Vol] 106 mmol/L 98-107 [facility] Work Phone: Eosinophils/100 WBC (Bld) 0.7 % 0-5 [facility] Work Phone: Glucose [Mass/Vol] 124 mg/dL 74-106 [facility] Work Phone: Comment on above: Fasting Glucose resu lt from 100 to 125 mg/dL suggests IMPAIRED HOMEOSTASIS per A.D.A. criteria.Please note revised GLUCOSE reference range effective 2017. Neutrophils (Bld) [#/Vol] 5.8 10*3/uL 2.0-7.7 [facility] Work Phone: Neutrophils/100 WBC (Bld) 71.9 % 47-70 [facility] Work Phone: Potassium [Moles/Vol] 3.7 mmol/L 3.5-5.1 [facility] Work Phone: Sodium [Moles/Vol] 140 mmol/L 136-145 [facility] Work Phone: WBC (Bld) [#/Vol] 8.1 10*3/uL 4.4-11.0 [facility] Work Phone: Blood erythrocytes count (nu mber/volume)on 06-30-2021 RBC (Bld) [#/Vol] 4.39 10*6/uL 4.2-5.4 [facility] Work Phone: Blood hemoglobin measurement (mass/volume)on 06-30-2021 Hemoglobin (Bld) [Mass/Vol] 11.7 g/dL 12.0-15.0 [facility] Work Phone: Blood lymphocytes/100 leukoc yteson 06-30-2021 Lymphocytes/100 WBC (Bld) 20.3 % 19-41 [facility] Work Phone: Blood monocytes/100 leukocyt eson 06-30-2021 Monocytes/100 WBC (Bld) 6.1 % 0-10 [facility] Work Phone: Blood platelet mean volumeon 06-30-2021 Platelet mean volume (Bld) [Entitic vol] 10.1 fL 6.2-12.0 [facility] Work Phone: Determination of erythrocyte mean corpuscular volume (MCV)on 06-30-2021 MCV (RBC) [Entitic vol] 84.7 fL 81-99 [facility] Work Phone: Erythrocyte sedimentation ra ebony 06-30-2021 ESR (Bld) [Velocity] 35 mm/h 0-30 [facility] Work Phone: Hematocrit Auto (Bld) [Volum e fraction]on 06-30-2021 Hematocrit (Bld) [Volume fraction] 37.2 % 37-47 [facility] Work Phone: Laboratory - Chemistry and C hemistry - challengeon 06-30-2021 CO2 [Moles/Vol] 28.0 mmol/L 21.0-32.0 [facility] Work Phone: Urea nitrogen/Creatinine [Mass ratio] 19.7 mg/mg 10-20 [facility] Work Phone: Laboratory - Hematology and Cell countson 06-30-2021 Erythrocyte distribution width (RBC) [Entitic vol] 45.3 fL 35.1-43.9 [facility] Work Phone: Erythrocyte distribution width (RBC) [Ratio] 14.7 % 11.6-14.6 [facility] Work Phone: Immature granulocytes/100 WBC (Bld) 0.600 % 0.0-0.9 [facility] Work Phone: Comment on above: IG% - Immature Granu locytes (promyelocytes, myelocytes and metamyelocytes) > 1% indicates that a LEFT SHIFT is Present. MCH (RBC) [Entitic mass] 26.7 pg 27.0-32.0 [facility] Work Phone: Nucleated RBC/100 WBC (Bld) [Ratio] 0 % 0-5 [facility] Work Phone: MCHC Auto (RBC) [Mass/Vol]on 06-30-2021 MCHC (RBC) [Mass/Vol] 31.5 g/dL 32-36 [facility] Work Phone: No Panel Informationon 06-30 Estimated Creatinine Clearance Calc 39.50 ml/min [facility] Work Phone: Estimated GFR (MDRD) Amer 114 mL/min >60 [facility] Work Phone: Comment on above: GFR Calc Estimated GFR (MDRD) Non-Af Amer 94 mL/min >60 [facility] Work Phone: Comment on above: Non- GFR Calc Platelets bldon 06-30-2021 Platelets (Bld) [#/Vol] 215 10*3/uL 150-450 [facility] Work Phone: Serum or plasma C reactive p rotein measurement (mass/volume)on 06-30-2021 CRP [Mass/Vol] 6.98 mg/L 0.0-3.0 [facility] Work Phone: Comment on above: C-Reactive Protein ( CRP) provides useful information for thediagnosis, therapy and monitoring of inflammatory processesand associated diseases. For the evaluation of Relative Riskfor Cardiovascular Disease, a High Sensitivity CRP (HSCRP)should be ordered. Serum or plasma calcium huma urement (mass/volume)on 06-30-2021 Calcium [Mass/Vol] 9.2 mg/dL 8.5-10.1 [facility] Work Phone: Serum or plasma creatinine m easurement (mass/volume)on 06-30-2021 Creatinine [Mass/Vol] 0.66 mg/dL 0.55-1.02 [facility] Work Phone: Comment on above: The validity of the calculated GFR & GFRAA in patients over 70 years has not been determined. Clinical correlation is essential. Serum or plasma urea nitroge n measurement (mass/volume)on 06-30-2021 Urea nitrogen [Mass/Vol] 13 mg/dL 7-18 [facility] Work Phone: Thin prep Papanicolaou smear with manual screeningon 06-30-2021 Thin prep Papanicolaou smear with manual screening 6 5-15 [facility] Work Phone: Juvenal 09-02-2020 MICKIN Telephone (OBGYWM) CHELSEY BELTRAN ([id number]) 1950 F Date Time Provider Department 09/02/20 [...] Rash Date Reviewed: 08/28/2020 Reviewed by: Brisa LenzDirector Of Global Sales) Aleksandr - Fully Assessed Reason for Visit: [...] by LAYLA SEWELL RN on 09/02/20 Normal [facility] Bact/Cand Vag Grm Ston 08-29 Bact/Cand Vag Grm St Sp. Request/Comment : - Swab Smear Result - BACTERIAL VAGINOSIS RESULT: Stain results consistent with normal vaginal jerrod. No Yeast observed Few Polymorphonuclear leukocytes Normal [facility] Comment on above: Performed By: #### B VCNSM #### [facility] [address] [address] CNOVon 08-28-2020 CNOV Office Visit (OBGYWM ) CHELSEY BELTRAN ([id number]) 1950 F Date Time Provider Department 08/28/20 1:30 PM BRISA YANEZ (SPRAGGER) OBGYWM During your visit today, we recorded [...] external genitalia normal, normal Bartholin's glands, urethra, Nekoma's glands, no vulvar lesions, no cervical lesions, physiologic discharge present, normal appearing perineal body and perianal region, atrophy. Vulva and perineum with moderate erythema. No lesions or plaques. BIMANUAL: uterus normal size, shape and consistency, no adnexal masses and non-tender NEURO: alert and oriented x3,exam grossly non-focal ASSESSMENT/PLAN: 1. Vulvar dermatitis - ICD9: 692.9, ICD10: L30.9 - B (more content not included)... Normal [facility] Prot Electrophoresis Serumon 12-21-2018 Albumin [Mass/Vol] 3.4 g/dL Normal 2.9-4.4 [facility] Comment on above: Order Comment: nhc Performed at: [place] [address] [employer] Motor Driver: Corky Damon PhD, Phone: [phone] Performed By: #### S PEP #### [facility] RESULTS Albumin/Globulin [Mass ratio] 1.2 {ratio} Normal 0.7-1.7 [facility] Comment on above: Order Comment: nhc Performed at: [place] [address] [employer] Driver: Corky Damon PhD, Phone: [phone] Performed By: #### S PEP #### [facility] RESULTS Vbuqp-6-Bjfjzgzl 0.3 g/dL Normal 0.0-0.4 [facility] Comment on above: Order Comment: nhc Performed at: [place] [address] [employer] Driver: Corky Damon PhD, Phone: [phone] Performed By: #### S PEP #### [facility] RESULTS Datzp-6-Fshsnpkp 0.9 g/dL Normal 0.4-1.0 [facility] Comment on above: Order Comment: nhc Performed at: [place] [address] [employer] Driver: Corky Damon PhD, Phone: [phone] Performed By: #### S PEP #### [facility] RESULTS Beta Globulin 0.8 g/dL Normal 0.7-1.3 [facility] Comment on above: Order Comment: nhc Performed at: [place] [address] [employer] Driver: Corky Damon PhD, Phone: [phone] Performed By: #### S PEP #### [facility] RESULTS Gamma Globulin 0.8 g/dL Normal 0.4-1.8 [facility] Comment on above: Order Comment: nhc Performed at: [place] [address] [employer] Driver: Corky Damon PhD, Phone: [phone] Performed By: #### S PEP #### [facility] RESULTS Globulin (S) [Mass/Vol] 2.8 g/dL Normal 2.2-3.9 [facility] Comment on above: Order Comment: nhc Performed at: [facility] [place] [address] [employer] Driver: Corky Damon PhD, Phone: [phone] Performed By: #### S PEP #### [facility] RESULTS M-Thien Not Observed Normal Not Observed [facility] Comment on above: Order Comment: nhc Performed at: [place] [address] [employer] Driver: Corky Damon PhD, Phone: [phone] Performed By: #### S PEP #### [facility] RESULTS PDF . [facility] Comment on above: Order Comment: nhc Performed at: [place] [address] [employer] Driver: Corky Damon PhD, Phone: [phone] Performed By: #### S PEP #### [facility] RESULTS Please note: Comment [facility] Comment on above: Order Comment: nhc Performed at: [place] [address] [employer] Driver: Corky Damon PhD, Phone: [phone] Result Comment: Prot ein electrophoresis scan will follow via computer, mail, or bioinformatics support specialist delivery. Performed By: #### S PEP #### [facility] RESULTS Protein [Mass/Vol] 6.2 g/dL Normal 6.0-8.5 [facility] Comment on above: Order Comment: nhc Performed at: [facility] [place] [address] [employer] Driver: Corky Damon PhD, Phone: [phone] Performed By: #### S PEP #### [facility] RESULTS C-Reactive Proteinon 019 CRP [Mass/Vol] mg/L Normal <=2.99 [facility] Comment on above: Order Comment: nhc Performed By: #### C ROSE CRPR #### [facility] [address] [place] [address] 47898 CBC with Diffon 12-19-2018 Basophils (Bld) [#/Vol] 0.0 x(10)3/cumm Normal 0.0-0.1 [facility] Comment on above: Order Comment: nhc Performed By: #### C BCDIFF #### [facility] [address] [place] [address] 38504 Basophils/100 WBC (Bld) 0.4 % Normal 0.0-1.0 [facility] Comment on above: Order Comment: nhc Performed By: #### C BCLAURENFF #### [facility] [address] [place] [address] 61196 Eosinophils (Bld) [#/Vol] 0.0 x(10)3/cumm Normal 0.0-0.4 [facility] Comment on above: Order Comment: nhc Performed By: #### C BCLAURENFF #### [facility] [address] [place] [address] 84268 Eosinophils/100 WBC (Bld) 0.2 % Normal 0.0-6.1 [facility] Comment on above: Order Comment: nhc Performed By: #### C BCDIFF #### [facility] [address] [place] [address] 34839 Erythrocyte distribution width (RBC) [Ratio] 17.0 % High 11.1-15.3 [facility] Comment on above: Order Comment: nhc Performed By: #### C BCDIFF #### [facility] [address] [place] [address] 89637 Hematocrit (Bld) [Volume fraction] 39.9 % Normal 34.6-45.0 [facility] Comment on above: Order Comment: nhc Performed By: #### C BCDIFF #### [facility] [address] [place] [address] 66566 Hemoglobin (Bld) [Mass/Vol] 13.0 g/dL Normal 11.5-15.5 [facility] Comment on above: Order Comment: nhc Performed By: #### C BCDIFF #### [facility] [address] [place] [address] 86118 Lymphocytes (Bld) [#/Vol] 1.4 x(10)3/cumm Normal 0.8-2.9 [facility] Comment on above: Order Comment: nhc Performed By: #### C BCDIFF #### [facility] [address] [place] [address] 25932 Lymphocytes/100 WBC (Bld) 11.9 % Low 12.2-42.6 [facility] Comment on above: Order Comment: nhc Performed By: #### C BCDIFF #### [facility] [address] [place] [address] 44041 MCH (RBC) [Entitic mass] 28.5 pg Normal 27.2-33.6 [facility] Comment on above: Order Comment: nhc Performed By: #### C BCDIFF #### [facility] [address] [place] [address] 16005 MCHC (RBC) [Mass/Vol] 32.7 g/dL Low 32.9-35.3 [facility] Comment on above: Order Comment: nhc Performed By: #### C BCDIFF #### [facility] [address] [place] [address] 61173 MCV (RBC) [Entitic vol] 87.2 fL Normal 81.3-96.7 [facility] Comment on above: Order Comment: nhc Performed By: #### C BCDIFF #### [facility] [address] [place] [address] 68938 Monocytes (Bld) [#/Vol] 0.5 x(10)3/cumm Normal 0.2-0.8 [facility] Comment on above: Order Comment: nhc Performed By: #### C BCDIFF #### [facility] [address] [place] [address] 88643 Monocytes/100 WBC (Bld) 3.8 % Normal 3.3-11.6 [facility] Comment on above: Order Comment: nhc Performed By: #### C BCDIFF #### [facility] [address] [place] [address] 20484 Neutrophils (Bld) [#/Vol] 10.0 x(10)3/cumm High 1.3-7.4 [facility] Comment on above: Order Comment: nhc Performed By: #### C BCDIFF #### [facility] [address] [place] [address] 34815 Neutrophils/100 WBC (Bld) 83.7 % High 44.9-78.8 [facility] Comment on above: Order Comment: nhc Performed By: #### C BCDIFF #### [facility] [address] [place] [address] 82916 Platelet mean volume (Bld) [Entitic vol] 7.9 fL Normal 6.4-10.0 [facility] Comment on above: Order Comment: nhc Performed By: #### C BCDIFF #### [facility] [address] [place] [address] 28230 Platelets (Bld) [#/Vol] 177 x(10)3/cumm Normal 138-367 [facility] Comment on above: Order Comment: nhc Performed By: #### C BCDIANTIONETTE #### [facility] [address] [place] [address] 89282 Plt Morph normal Normal [facility] Comment on above: Order Comment: nhc Performed By: #### C BCDIFF #### [facility] [address] [place] [address] 73849 RBC (Bld) [#/Vol] 4.57 X(10)6/cumm Normal 3.90-5.10 [facility] Comment on above: Order Comment: nhc Performed By: #### C BCDIANTIONETTE #### [facility] [address] [place] [address] 69894 RBC Morph cont Normal [facility] Comment on above: Order Comment: nhc Performed By: #### C BCDIFF #### [facility] [address] [place] [address] 18176 RBC morphology finding Nom (Bld) mild aniso, mild hypo Normal [facility] Comment on above: Order Comment: nhc Performed By: #### C BCDIFF #### [facility] [address] [place] [address] 27517 WBC (Bld) [#/Vol] 12.0 x(10)3/cumm High 3.6-10.3 [facility] Comment on above: Order Comment: nhc Performed By: #### C BCDIFF #### [facility] [address] [place], [place] [id number] WBC Morph less than 10% bands Normal [facility] Comment on above: Order Comment: nhc Performed By: #### C BCDIFF #### [facility] [address] [place], [place] [id number] Comprehensive Metabolic Pane [facility] 12-19-2018 Albumin [Mass/Vol] 3.7 g/dL Normal 3.4-5.0 [facility] Comment on above: Order Comment: nhc Performed By: #### C ROSE, CRPR #### [facility] [address] [place], [place] [id number] ALP [Catalytic activity/Vol] 76 U/L Normal 45-117 [facility] Comment on above: Order Comment: nhc Performed By: #### C ROSE, CRPR #### [facility] [address] [place], [place] [id number] ALT [Catalytic activity/Vol] 49 U/L Normal 12-78 [facility] Comment on above: Order Comment: nhc Performed By: #### C ROSE, CRPR #### [facility] [address] [place], [place] [id number] Anion gap [Moles/Vol] 10 mmol/L Normal 5-10 [facility] Comment on above: Order Comment: nhc Performed By: #### C MP, CRPR #### [facility] [address] [place], [place] [id number] AST [Catalytic activity/Vol] 16 U/L Normal 15-37 [facility] Comment on above: Order Comment: nhc Performed By: #### C ROSE, CRPR #### [facility] [address] [place] [address] 92835 Bili, Total 0.6 mg/dL Normal 0.2-1.0 [facility] Comment on above: Order Comment: nhc Performed By: #### C ROSE, CRPR #### [facility] [address] [place] [address] 99748 Calcium [Mass/Vol] 9.2 mg/dL Normal 8.5-10.1 [facility] Comment on above: Order Comment: nhc Performed By: #### C ROSE, CRPR #### [facility] [address] [place], [place] [id number] Chloride [Moles/Vol] 105 mmol/L Normal 98-107 [facility] Comment on above: Order Comment: nhc Performed By: #### C ROSE, CRPR #### [facility] [address] [place], [place] [id number] CO2 [Moles/Vol] 25 mmol/L Normal 21-32 [facility] Comment on above: Order Comment: nhc Performed By: #### C ROSE, CRPR #### [facility] [address] [place] [address] 95406 Creatinine [Mass/Vol] 0.72 mg/dL Normal 0.60-1.30 [facility] Comment on above: Order Comment: nhc Performed By: #### C MP, CRPR #### [facility] [address] [place] [address] 83136 eGFR -Amer >60 Normal >=60 [facility] Comment on above: Order Comment: nhc Performed By: #### C MP, CRPR #### [facility] [address] [place] [address] 09620 GFR/1.73 sq M predicted among non-blacks MDRD (S/P/Bld) [Vol rate/Area] mL/min/{1.73_m2} Normal >=60 [facility] Comment on above: Order Comment: nhc Performed By: #### C MP, CRPR #### [facility] [address] [place] [address] 43188 Glucose [Mass/Vol] 137 mg/dL High 74-106 [facility] Comment on above: Order Comment: nhc Performed By: #### C MP, CRPR #### [facility] [address] [place] [address] 74380 Potassium [Moles/Vol] 4.2 mmol/L Normal 3.5-5.1 [facility] Comment on above: Order Comment: nhc Performed By: #### C MP, CRPR #### [facility] [address] [place] [address] 74343 Prot Total 6.3 gm/dL Low 6.4-8.2 [facility] Comment on above: Order Comment: nhc Performed By: #### C ROSE, CRPR #### [facility] [address] [place], [place] [id number] Sodium [Moles/Vol] 140 mmol/L Normal 136-145 [facility] Comment on above: Order Comment: nhc Performed By: #### C ROSE, CRPR #### [facility] [address] [place] [address] 15439 Urea nitrogen [Mass/Vol] 20 mg/dL High 7-18 [facility] Comment on above: Order Comment: nhc Performed By: #### C ROSE, CRPR #### [facility] [address] [place] [address] 12950 Sed Rate - Cameronergrenon - Sed Rate 7 mm/hr Normal 0-20 [facility] Comment on above: Order Comment: nhc Performed By: #### E SR #### [facility] [address] [place] [address] 82307 Lab Report: [id number] Shady red 08-19-2016 B2 [id number] 1.6 mg/L Invalid Interpretation Code 0.6-2.4 [facility] Work Phone: Lab Report: Immunoglobulin A on 08-19-2016 IgA 95 mg/dL Invalid Interpretation Code [id number] [facility] Work Phone: [phone] Lab Report: Immunoglobulin G on 08-19-2016 IgG 692 mg/dL Low 700-1600 [facility] Work Phone: [phone] Lab Report: Immunoglobulin M on 08-19-2016 IgM 720 mg/dL High 26-217 [facility] Work Phone: [phone] Lab Report: Protein Electro. Ur-Randomon 08-19-2016 NOTE Comment Invalid Interpretation Code . [facility] Work Phone: [phone] Protein [Mass] in Urine collected for unspecified duration 13.1 mg/dL Invalid Interpretation Code Not Estab. [facility] Work Phone: [phone] Lab Report: Protein Electrop h, Son 08-19-2016 INTERPRETATION Comment Invalid Interpretation Code . [facility] Work Phone: [phone] M-SPIKE . Invalid Interpretation Code [facility] Work Phone: [phone] NOTE: Comment Invalid Interpretation Code . [facility] Work Phone: [phone] Albumin 3.6 g/dL Invalid Interpretation Code 2.9-4.4 [facility] Work Phone: [phone] Albumin/Globulin Ratio 1.1 (?) Invalid Interpretation Code 0.7-1.7 [facility] Work Phone: [phone] ALPHA-1 GLOBUL 0.3 g/dL Invalid Interpretation Code 0.0-0.4 [facility] Work Phone: [phone] ALPHA-2 GLOBUL 0.8 g/dL Invalid Interpretation Code 0.4-1.0 [facility] Work Phone: [phone] BETA GLOBULIN 1.0 g/dL Invalid Interpretation Code 0.7-1.3 [facility] Work Phone: [phone] GAMMA GLOBULIN 1.1 g/dL Invalid Interpretation Code 0.4-1.8 [facility] Work Phone: [phone] Globulin 3.2 g/dL Invalid Interpretation Code 2.2-3.9 [facility] Work Phone: [phone] Protein 6.8 g/dL Invalid Interpretation Code 6.0-8.5 [facility] Work Phone: [phone] Lab Report: Vitamin D,25 Hyd roxyon 08-18-2016 Vitamin D 25-OH 24.3 ng/mL Invalid Interpretation Code [facility] Work Phone: [phone] Lab Report: Comprehensive Nv tabolic Profilon 08-17-2016 Alanine aminotransferase (ALT) 22 U/L Invalid Interpretation Code 12-78 [facility] Work Phone: [phone] Albumin 3.9 g/dL Invalid Interpretation Code 3.4-5.0 [facility] Work Phone: [phone] Albumin/Globulin Ratio 1 {ratio} Invalid Interpretation Code 0.9-2.4 [facility] Work Phone: [phone] Alkaline phosphatase (ALP) 96 U/L Invalid Interpretation Code 45-117 [facility] Work Phone: [phone] Anion gap 10 mmol/L Invalid Interpretation Code 5-15 [facility] Work Phone: [phone] Aspartate aminotransferase (AST) 11 U/L Low 15-37 [facility] Work Phone: [phone] Bilirubin (total) 0.70 mg/dL Invalid Interpretation Code 0.20-1.00 [facility] Work Phone: [phone] BUN/Creatinine Ratio 15.1 RATIO Invalid Interpretation Code 10-20 [facility] Work Phone: [phone] Calcium 8.9 mg/dL Invalid Interpretation Code 8.5-10.1 [facility] Work Phone: [phone] Chloride 103 mmol/L Invalid Interpretation Code 98-107 [facility] Work Phone: [phone] CO2 26.0 mmol/L Invalid Interpretation Code 21.0-32.0 [facility] Work Phone: [phone] Creatinine 0.79 mg/dL Invalid Interpretation Code 0.55-1.02 [facility] Work Phone: [phone] eGFR (non-black) 93 mL/min/{1.73_m2} Invalid Interpretation Code >60 [facility] Work Phone: [phone] eGFR (non-black) 77 mL/min/{1.73_m2} Invalid Interpretation Code >60 [facility] Work Phone: [phone] Globulin 3.9 g/dL High 2.3-3.5 [facility] Work Phone: [phone] Glucose mass conc 106 mg/dL Invalid Interpretation Code 70-110 [facility] Work Phone: [phone] Potassium molar conc 3.6 mmol/L Invalid Interpretation Code 3.5-5.1 [facility] Work Phone: [phone] Protein 7.8 g/dL Invalid Interpretation Code 6.4-8.2 [facility] Work Phone: [phone] Sodium 139 mmol/L Invalid Interpretation Code 136-145 [facility] Work Phone: [phone] Urea nitrogen 12 mg/dL Invalid Interpretation Code 7-18 [facility] Work Phone: [phone] Lab Report: Thyroid Stim Hor jessica (TSH)on 08-17-2016 Thyroid stimulating hormone (TSH) 3.01 u[iU]/mL Invalid Interpretation Code 0.358-3.74 [facility] Work Phone: [phone] 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 * PHQ9 Completeon 08-17-2016 Adult depression screening assessment Adult depression screening assessment Invalid Interpretation Code [facility] Work Phone: [phone] Documentation of current medications (procedure) Done Invalid Interpretation Code [facility] Work Phone: [phone] Replaced Document: CBC W/Dif f, Auto - EPLAB Onlyon 08-17-2016 Absolute Neut 5.5 X10 3/UL Invalid Interpretation Code 2.0-7.7 [facility] Work Phone: [phone] Basophils/100 WBC Auto (Bld) 0.6 % Invalid Interpretation Code 0-1 [facility] Work Phone: [phone] Eosinophils/100 leukocytes 1.6 % Invalid Interpretation Code 0-5 [facility] Work Phone: [phone] Erythrocyte distribution width Auto Ratio (RBC) 13.3 % Invalid Interpretation Code 11.6-14.6 [facility] Work Phone: [phone] Erythrocytes (RBC) 4.88 10*6/uL Invalid Interpretation Code 4.2-5.4 [facility] Work Phone: [phone] Hematocrit (HCT) 43.6 % Invalid Interpretation Code 37-47 [facility] Work Phone: [phone] Hemoglobin mass conc (Bld) 14.1 g/dL Invalid Interpretation Code 12.0-15.0 [facility] Work Phone: [phone] Lymphocytes 2.36 X10 3/UL Invalid Interpretation Code 0.83-4.51 [facility] Work Phone: [phone] Lymphocytes/100 leukocytes 27.9 % Invalid Interpretation Code 19-41 [facility] Work Phone: [phone] MCH 28.8 pg Invalid Interpretation Code 27.0-32.0 [facility] Work Phone: [phone] MCHC mass conc (RBC) 32.3 g/dL Invalid Interpretation Code 32-36 [facility] Work Phone: [phone] MCV 89.3 fL Invalid Interpretation Code 81-99 [facility] Work Phone: [phone] Monocytes/100 leukocytes 5.4 % Invalid Interpretation Code 0-10 [facility] Work Phone: [phone] Neutrophils/100 WBC Auto (Bld) 64.5 % Invalid Interpretation Code 47-70 [facility] Work Phone: [phone] Platelets 207 10*3/mm3 Invalid Interpretation Code 150-450 [facility] Work Phone: [phone] PMV by Jillian 6.9 fL Invalid Interpretation Code 6.2-12.0 [facility] Work Phone: [phone] WBC (Leukocytes) 8.5 10*3/uL Invalid Interpretation Code 4.4-11.0 [facility] Work Phone: [phone] 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 Tobacco smoking status NHIS Never Invalid Interpretation Code [facility] Work Phone: [phone] Tobacco use CPHS Never smoker Invalid Interpretation Code [facility] Work Phone: [phone] Lab Report: VANESSA + Protein El ect, Serumon 11-20-2015 Albumin 3.6 g/dL Invalid Interpretation Code 3.2-5.6 [facility] Work Phone: [phone] Alpha 2 globulin 0.8 g/dL Invalid Interpretation Code 0.4-1.2 [facility] Work Phone: [phone] BDWVL-5-OEPS 0.3 g/dL Invalid Interpretation Code 0.1-0.4 [facility] Work Phone: [phone] BETA GLOBULIN 1.0 g/dL Invalid Interpretation Code 0.6-1.3 [facility] Work Phone: [phone] Gamma globulin 1300 mg/dL Invalid Interpretation Code Units converted. See lab report for original value. [facility] Work Phone: [phone] M-SPIKE . Invalid Interpretation Code [facility] Work Phone: [phone] Lab Report: Progreso Lambda Lig ht Chainson 11-20-2015 FR KAPPA LT CHN 1.741 mg/dL Invalid Interpretation Code Units converted. See lab report for original value. [facility] Work Phone: [phone] FR LAMBDA LT CH 1.599 mg/dL Invalid Interpretation Code Units converted. See lab report for original value. [facility] Work Phone: [phone] KAPPA/LAMBDA % 1.09 Invalid Interpretation Code 0.26-1.65 [facility] Work Phone: [phone] Lab Report: Erythrocyte Sed Rateon 08-19-2015 Erythrocyte sedimentation rate 40 mm/h High 0-30 [facility] Work Phone: [phone] Lab Report: LDHon 08-19-2015 LDH 163 U/L Invalid Interpretation Code 84-246 [facility] Work Phone: [phone] Lab Report: Uric Acidon 07-29 Urate 3.7 mg/dL Invalid Interpretation Code 2.6-6.0 [facility] Work Phone: [phone] Replaced Document: (P) ANCAo n 05-30-2015 Neutrophils . 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 05-27-2015 General categories [Interpretation] of Cervical or vaginal smear or scraping by Cyto stain Normal Invalid Interpretation Code [facility] Work Phone: [phone] Breast Mammogram screening Normal Bilateral Invalid Interpretation Code [facility] Work Phone: [phone] Lab Report: ANTINUCLEAR ANTI BODIES DIRECTon 05-14-2015 CORINNE Titer Negative Invalid Interpretation Code Negative [facility] Work Phone: [phone] Lab Report: CBC W/Diff, Auto - EPLAB Onlyon 05-06-2015 Pathologist (cervix/vaginal) May foll Invalid Interpretation Code [facility] Work Phone: [phone] 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 Kanika Mike DO Work Phone: [facility] 01-09-2025 14:56-0400 Body mass index (BMI) [Ratio] 31.1 kg/m2 Dr. Kanika Mike DO Work Phone: [facility] 01-09-2025 14:56-0400 Body weight 74.[address] Kanika Mike DO Work Phone: [facility] 12-17-2024 14:50-0400 Body height 154.[address] Kanika Mike DO Work Phone: [facility] 12-17-2024 14:50-0400 Body mass index (BMI) [Ratio] 31.4 kg/m2 Dr. Kanika Mike DO Work Phone: [facility] 12-17-2024 14:50-0400 Body weight 75.[address] Kanika Mike DO Work Phone: [facility] 12-07-2024 13:23-0400 Body height 154.[address] Kanika Mike DO Work Phone: [facility] 12-07-2024 13:23-0400 Body mass index (BMI) [Ratio] 31.4 kg/m2 Dr. Kanika Mike DO Work Phone: [facility] 12-07-2024 13:23-0400 Body weight 75.[address] Kanika Mike DO Work Phone: [facility] 12-07-2024 13:23-0400 Diastolic blood pressure 56 mm[Hg] Dr. Kanika Mike DO Work Phone: [facility] 12-07-2024 13:23-0400 Heart rate 67 /min Dr. Kanika Mike DO Work Phone: [facility] 12-07-2024 13:23-0400 Respiratory rate 16 /min Dr. Kanika Mike DO Work Phone: [facility] 12-07-2024 13:23-0400 Systolic blood pressure 99 mm[Hg] Dr. Kanika Mike DO Work Phone: [facility] 07-31-2024 08:15-0500 Body temperature 97.1 [degF] Dr. Kanika Mike DO Work Phone: [facility] 07-31-2024 08:15-0500 Diastolic blood pressure 63 mm[Hg] Dr. Kanika Mike DO Work Phone: [facility] 07-31-2024 08:15-0500 Heart rate 68 /min Dr. Kanika Mike DO Work Phone: [facility] 07-31-2024 08:15-0500 Respiratory rate 16 /min Dr. Kanika Mike DO Work Phone: [facility] 07-31-2024 08:15-0500 SaO2% (BldA) [Mass fraction] 94 % Dr. Kanika Mike DO Work Phone: [facility] 07-31-2024 08:15-0500 Systolic blood pressure 112 mm[Hg] Dr. Kanika Mike DO Work Phone: [facility] 07-31-2024 06:27-0500 Body height 154.[address] Kanika Mike DO Work Phone: [facility] 07-31-2024 06:27-0500 Body mass index (BMI) [Ratio] 32.4 kg/m2 Dr. Kanika Mike DO Work Phone: [facility] 07-31-2024 06:27-0500 Body weight 77.[address] Kanika Mike DO Work Phone: [facility] 07-26-2024 13:35-0500 Body temperature 98.5 [degF] Dr. Kanika Mike DO Work Phone: [facility] 07-26-2024 13:35-0500 Diastolic blood pressure 53 mm[Hg] Dr. Kanika Mike DO Work Phone: [facility] 07-26-2024 13:35-0500 Heart rate 65 /min Dr. Kanika Mike DO Work Phone: [facility] 07-26-2024 13:35-0500 Respiratory rate 18 /min Dr. Kanika Mike DO Work Phone: [facility] 07-26-2024 13:35-0500 SaO2% (BldA) [Mass fraction] 94 % Dr. Kanika Mike DO Work Phone: [facility] 07-26-2024 13:35-0500 Systolic blood pressure 108 mm[Hg] Dr. Kanika Mike DO Work Phone: [facility] 07-26-2024 11:40-0500 Body mass index (BMI) [Ratio] 32.5 kg/m2 Dr. Kanika Mike DO Work Phone: [facility] 07-26-2024 11:40-0500 Body weight [address] Kanika Mike DO Work Phone: [facility] 05-28-2024 10:16-0500 Body weight 77.[address] Kanika Mike DO Work Phone: [facility] 05-28-2024 10:16-0500 Diastolic blood pressure 64 mm[Hg] Dr. Kanika Mike DO Work Phone: [facility] 05-28-2024 10:16-0500 Heart rate 65 /min Dr. Kanika Mike DO Work Phone: [facility] 05-28-2024 10:16-0500 Respiratory rate 18 /min Dr. Kanika Mike DO Work Phone: [facility] 05-28-2024 10:16-0500 SaO2% (BldA) [Mass fraction] 96 % Dr. Kanika Mike DO Work Phone: [facility] 05-28-2024 10:16-0500 Systolic blood pressure 98 mm[Hg] Dr. Kanika Mike DO Work Phone: [facility] 08-11-2022 23:27-0500 Diastolic blood pressure 81 mm[Hg] [facility] 08-11-2022 23:27-0500 Heart rate 101 /min [facility] 08-11-2022 23:27-0500 Respiratory rate 18 /min [facility] 08-11-2022 23:27-0500 SaO2% (BldA) [Mass fraction] 98 % [facility] 08-11-2022 23:27-0500 Systolic blood pressure 148 mm[Hg] [facility] 08-11-2022 18:56-0500 Body height 152.4 cm [facility] 08-11-2022 18:56-0500 Body mass index (BMI) [Ratio] 38.2 kg/m2 [facility] 08-11-2022 18:56-0500 Body temperature 97 [degF] [facility] 08-11-2022 18:56-0500 Body weight 88.9 kg [facility] 07-15-2022 14:21-0500 Body mass index (BMI) [Ratio] 38.2 kg/m2 [facility] 07-15-2022 14:21-0500 Body weight 88.9 kg [facility] 07-15-2022 14:21-0500 Diastolic blood pressure 75 mm[Hg] [facility] 07-15-2022 14:21-0500 Heart rate 62 /min [facility] 01-19-2023 14:21-0500 Respiratory rate 18 /min [facility] 07-15-2022 14:21-0500 SaO2% (BldA) [Mass fraction] 95 % [facility] 07-15-2022 14:21-0500 Systolic blood pressure 124 mm[Hg] [facility] 04-05-2022 15:00-0400 Body height 152.4 cm [facility] Work Phone: 04-05-2022 15:00-0400 Body mass index (BMI) [Ratio] 39.2 kg/m2 [facility] Work Phone: 04-05-2022 15:00-0400 Body weight 91.17 kg [facility] Work Phone: 04-05-2022 15:00-0400 Diastolic blood pressure 59 mm[Hg] [facility] Work Phone: 04-05-2022 15:00-0400 Heart rate 62 /min [facility] Work Phone: 04-05-2022 15:00-0400 Respiratory rate 16 /min [facility] Work Phone: 04-05-2022 15:00-0400 Systolic blood pressure 108 mm[Hg] [facility] Work Phone: 08-26-2021 04:34-0500 Heart rate 64 /min [facility] Work Phone: 08-26-2021 04:34-0500 Respiratory rate 18 /min [facility] Work Phone: 08-26-2021 04:34-0500 SaO2% (BldA) [Mass fraction] 97 % [facility] Work Phone: 08-26-2021 03:05-0500 Body height 152.4 cm [facility] Work Phone: 08-26-2021 03:05-0500 Body mass index (BMI) [Ratio] 39.1 kg/m2 [facility] Work Phone: 08-26-2021 03:05-0500 Body temperature 97.7 [degF] [facility] Work Phone: 08-26-2021 03:05-0500 Body weight 90.8 kg [facility] Work Phone: 08-26-2021 03:05-0500 Diastolic blood pressure 64 mm[Hg] [facility] Work Phone: 08-26-2021 03:05-0500 Systolic blood pressure 157 mm[Hg] [facility] Work Phone: 08-18-2021 14:37-0500 Body mass index (BMI) [Ratio] 38 kg/m2 [facility] Work Phone: 08-18-2021 14:37-0500 Body weight 88.45 kg [facility] Work Phone: 08-18-2021 14:37-0500 Diastolic blood pressure 67 mm[Hg] [facility] Work Phone: 08-18-2021 14:37-0500 Heart rate 66 /min [facility] Work Phone: 08-18-2021 14:37-0500 Respiratory rate 20 /min [facility] Work Phone: 08-18-2021 14:37-0500 Systolic blood pressure 107 mm[Hg] [facility] Work Phone: 08-16-2021 16:42-0500 Diastolic blood pressure 65 mm[Hg] [facility] Work Phone: 08-16-2021 16:42-0500 Heart rate 113 /min [facility] Work Phone: 08-16-2021 16:42-0500 Respiratory rate 22 /min [facility] Work Phone: 08-16-2021 16:42-0500 SaO2% (BldA) [Mass fraction] 92 % [facility] Work Phone: 08-16-2021 16:42-0500 Systolic blood pressure 96 mm[Hg] [facility] Work Phone: 08-16-2021 11:36-0500 Body mass index (BMI) [Ratio] 37.5 kg/m2 [facility] Work Phone: 08-16-2021 11:36-0500 Body temperature 96.9 [degF] [facility] Work Phone: 08-16-2021 11:36-0500 Body weight 87.3 kg [facility] Work Phone: 08-10-2021 11:48-0500 Body temperature 97.9 [degF] [facility] Work Phone: 08-10-2021 11:48-0500 Diastolic blood pressure 51 mm[Hg] [facility] Work Phone: 08-10-2021 11:48-0500 Heart rate 78 /min [facility] Work Phone: 08-10-2021 11:48-0500 Respiratory rate 16 /min [facility] Work Phone: 08-10-2021 11:48-0500 SaO2% (BldA) [Mass fraction] 98 % [facility] Work Phone: 08-10-2021 11:48-0500 Systolic blood pressure 105 mm[Hg] [facility] Work Phone: 08-09-2021 10:49-0500 Body weight 87.67 kg [facility] Work Phone: 08-08-2021 13:50-0500 Body mass index (BMI) [Ratio] 37.7 kg/m2 [facility] Work Phone: 08-02-2021 15:30-0500 Diastolic blood pressure 59 mm[Hg] [facility] Work Phone: 08-02-2021 15:30-0500 Heart rate 78 /min [facility] Work Phone: 08-02-2021 15:30-0500 Respiratory rate 18 /min [facility] Work Phone: 08-02-2021 15:30-0500 SaO2% (BldA) [Mass fraction] 96 % [facility] Work Phone: 08-02-2021 15:30-0500 Systolic blood pressure 139 mm[Hg] [facility] Work Phone: 08-02-2021 13:41-0500 Body mass index (BMI) [Ratio] 0.2 kg/m2 [facility] Work Phone: 08-02-2021 13:41-0500 Body temperature 97.2 [degF] [facility] Work Phone: 08-02-2021 13:41-0500 Body weight 87.54 kg [facility] Work Phone: 06-30-2021 05:07-0500 Diastolic blood pressure 73 mm[Hg] [facility] Work Phone: 06-30-2021 05:07-0500 Heart rate 86 /min [facility] Work Phone: 06-30-2021 05:07-0500 Respiratory rate 16 /min [facility] Work Phone: 06-30-2021 05:07-0500 SaO2% (BldA) [Mass fraction] 96 % [facility] Work Phone: 06-30-2021 05:07-0500 Systolic blood pressure 140 mm[Hg] [facility] Work Phone: 06-30-2021 00:54-0500 Body mass index (BMI) [Ratio] 36.2 kg/m2 [facility] Work Phone: 06-30-2021 00:54-0500 Body temperature 97.8 [degF] [facility] Work Phone: 06-30-2021 00:54-0500 Body weight 87.08 kg [facility] Work Phone: 08-17-2016 11:26-0500 BMI (Body Mass Index) 36.53 kg/m2 [facility] Work Phone: 08-17-2016 11:26-0500 Body Temperature 97.5 [degF] [facility] Work Phone: 08-17-2016 11:26-0500 BP Diastolic 75 mm[Hg] [facility] Work Phone: 08-17-2016 11:26-0500 BP Systolic 121 mm[Hg] [facility] Work Phone: 08-17-2016 11:26-0500 BSA (Body Surface Area) 1.94 m2 [facility] Work Phone: 08-17-2016 [...] 11:26-0500 Weight 92.27 kg Lata [facility] Work Phone: 05-06-2015 10:00-0500 Height 158.75 cm [facility] Work Phone: Encounters Encounter Date Encounter Type Care Provider Facility Start: 04-02-2025 End: 04-02-2025 ambulatory Kanika Mike Facility:[facility] Start: 03-05-2025 End: 03-05-[address] Kanika Mike DO Work Phone: -Radiology [facility] Start: 03-05-2025 End: 03-05-[address] Charlie Reed MD -Radiology [facility] Work Phone: Start: 03-05-2025 End: 03-05-2025 ambulatory Kanika Mike Facility:[facility] Start: 01-24-2025 End: 01-24-[address] Kanika Mike DO Work Phone: -Laboratory Specimen Start: 01-24-2025 End: 01-24-[address] Kanika Mike DO -Laboratory Specimen Work Phone: Start: 01-24-2025 End: 01-24-2025 ambulatory Kanika Mike Facility:[facility] Start: 01-09-2025 End: 01-09-2025 Patient encounter procedure Dr. Juan Toney MD -[facility] Work Phone: Start: 01-09-2025 End: 01-09-[address] Kanika Mike DO Work Phone: -[facility] Start: 01-01-2025 End: 01-01-[address] Kanika Mike DO Work Phone: -[facility] Start: 01-01-2025 End: 01-01-2025 Patient encounter procedure Rylie XIAO -[facility] Work Phone: Start: 01-01-2025 End: 01-01-2025 ambulatory Kanika Keyla Facility:[facility] Start: 12-17-2024 End: 12-17-[address] Randy Call MD -[facility] Start: 12-17-2024 End: 12-17-[address] Kanika Mike DO Work Phone: [facility] Work Phone: Start: 12-07-2024 End: 12-07-[address] Wilton Davila MD -[facility] Work Phone: Start: 12-07-2024 End: 12-07-[address] Kanika Mike DO Work Phone: [facility] Work Phone: Start: 09-13-2024 End: 09-13-[address] Kanika Mike DO Work Phone: [facility] Work Phone: Start: 09-13-2024 End: 09-13-[address] Kanika Mike DO -[facility] Start: 09-13-2024 End: 09-13-2024 ambulatory Kanika Mike Facility:[facility] Start: 08-13-2024 End: 08-13-[address] Raj Walker DO -[facility] Work Phone: Start: 08-13-2024 End: 08-13-2024 ambulatory [facility] Start: 07-31-2024 ambulatory [facility]: [facility] Start: 07-31-2024 Non-patient / Non-visit Dr. Raj Walker DO [facility] Start: 07-31-2024 End: 07-31-2024 Admission to same day surgery center Dr. Raj Walker DO -[facility] Start: 07-31-2024 End: 07-31-2024 ambulatory [facility] Facility:[facility] Start: 07-26-2024 ambulatory [facility]: [facility] Start: 07-26-2024 End: 07-26-2024 Non-patient / Non-visit Denton Morgan DO -[facility] Start: 07-26-2024 End: 07-26-2024 Admission to same day surgery center Denton Morgan DO -Endoscopy Work Phone: Start: 07-26-2024 End: 07-26-2024 ambulatory [facility] Facility:[facility] Start: 07-04-2024 End: 07-04-[address] Raj Walker DO -[facility] Work Phone: Start: 07-04-2024 End: 07-04-2024 ambulatory [facility] Start: 05-28-2024 End: 05-28-2024 Patient encounter procedure Denton Morgan DO -Laboratory Work Phone: Start: 05-28-2024 End: 05-28-2024 Patient encounter procedure Layla KAMINSKI -[facility] Work Phone: Start: 05-28-2024 End: 05-28-2024 ambulatory [facility] Start: 05-28-2024 End: 05-28-2024 ambulatory [facility] Facility:[facility] Start: 05-09-2024 End: 05-09-2024 ambulatory [facility] Start: 04-24-2024 End: 04-24-2024 ambulatory [facility] Facility:[facility] Start: 10-04-2023 End: 10-04-2023 ambulatory [facility]ital Work Phone: Start: 10-04-2023 End: 10-04-2023 Patient encounter procedure [facility]-Outpatient Bone Densitometry Work Phone: Start: 09-19-2023 End: 09-19-2023 ambulatory [facility] Work Phone: Start: 09-19-2023 End: 09-19-2023 Patient encounter procedure [facility]-Outpatient Breast Imaging Work Phone: Start: 09-06-2023 End: 09-06-2023 ambulatory [facility] Work Phone: Start: 09-06-2023 End: 09-06-2023 Patient encounter procedure [facility] Start: 08-11-2022 End: 08-11-2022 Emergency department patient visit [facility]-Emergency Department Start: 07-15-2022 End: 07-15-2022 Patient encounter procedure [facility] Start: 07-01-2022 End: 07-01-2022 ambulatory Kanika [facility] spital Work Phone: Start: 07-01-2022 End: 07-01-2022 Patient encounter procedure Kanika [facility]-Outpatient Breast Imaging Start: 05-11-2022 Non-patient / Non-visit Kanika [facility] Start: 05-11-2022 End: 05-11-2022 ambulatory Kanika [facility] Work Phone: Start: 05-11-2022 End: 05-11-2022 Patient encounter procedure [facility]-Cardiovascular Services Start: 04-19-2022 End: 04-19-2022 ambulatory Kanika [facility] Work Phone: Start: 04-19-2022 End: 04-19-2022 Patient encounter procedure Kanika [facility]-Laboratory, Specimen Start: 04-05-2022 End: 04-05-2022 Patient encounter procedure [facility] Start: 04-05-2022 End: 04-05-2022 ambulatory [facility] Work Phone: Start: 04-05-2022 End: 04-05-2022 Patient encounter procedure Kanika [facility]-Laboratory Start: 03-22-2022 End: 03-22-2022 ambulatory [facility] spital Work Phone: Start: 03-22-2022 End: 03-22-2022 Patient encounter procedure [facility]-Laboratory Start: 11-20-2021 End: 11-20-2021 Subsequent hospital visit by physician Layla Holm MD Work Phone: IF MARISOL WILLIS Comment on above: A-FIB Start: 09-28-2021 End: 09-28-2021 Emergency department patient visit CHARLIE MCDOWELL [facility] Start: 09-23-2021 End: 09-23-2021 Patient encounter procedure [facility]-Pulmonary Services/Neurology Start: 09-09-2021 End: 09-09-2021 Patient encounter procedure [facility]-Laboratory Start: 08-26-2021 End: 08-26-2021 Emergency department patient visit [facility]-Emergency Department Start: 08-18-2021 End: 08-18-2021 Patient encounter procedure [facility] Start: 08-16-2021 End: 08-16-2021 Emergency department patient visit [facility]-Emergency Department Start: 08-16-2021 Non-patient / Non-visit [facility] Start: 08-10-2021 [facility] Start: 08-10-2021 Non-patient / Non-visit [facility] Start: 08-09-2021 Non-patient / Non-visit [facility] Inpatient Physicians Start: 08-09-2021 Non-patient / Non-visit [facility] Start: 08-08-2021 End: 08-10-2021 Evaluation and management of inpatient [facility]-Progressive Care Unit Start: 08-05-2021 Non-patient / Non-visit [facility] Group Start: 08-02-2021 End: 08-02-2021 Emergency department patient visit [facility]-Emergency Department Start: 06-30-2021 End: 06-30-2021 Patient encounter procedure [facility]-Outpatient Breast Imaging Start: 06-30-2021 End: 06-30-2021 Emergency department patient visit [facility]-Emergency Department Start: 12-19-2018 End: 12-20-2018 Patient encounter procedure [facility] Procedures Date Procedure Procedure Detail Performing [...] 06-30-2021 CT of head without contrast Kanika Gaines elizabet Start: 08-17-2016 End: 08-17-2016 *CMP Complete Metabolic Panel Gopi Clara Astorga DO Start: 08-17-2016 End: 08-19-2016 *SPEP (Serum Protein Electrophoresis) Gopi Clara Hidalgoa DO Start: 08-17-2016 End: 08-19-2016 *UPEP Gopi Hidalgoa DO Start: 08-17-2016 End: 08-19-2016 Xunm-[id number] [Mass/volume] in Serum or Plasma Gopinatalee Hidalgoa DO Start: 08-17-2016 End: 08-19-2016 IgA [Mass/volume] in Serum or Plasma Gopinatalee Hidalgoa DO Start: 08-17-2016 End: 08-19-2016 IgG [Mass/volume] in Serum or Plasma Gopinatalee Hidalgoa DO Start: 08-17-2016 End: 08-19-2016 IgM [Mass/volume] in Serum or Plasma Gopi Clara Hidalgoa DO Start: 11-18-2015 End: 11-18-2015 *CMP Complete Metabolic Panel Gopi Clara Hidalgoa DO Start: 11-18-2015 End: 11-20-2015 Ornh-5-Eckgyxnqpdzgg [Mass/volume] in Serum or Plasma Gopi Clara Hidalgoa DO History of cholecystectomy S/P cholecyste ctomy Dr. Kanika Mike DO Work Phone: History of cholecystectomy S/P cholecyste ctomy Layla Coronado DOOR FITTER-C SARS-CoV-2 & FLU Antigen (Rapid) Kanika Mike Plan of Treatment Date Care Activity Detail Author Start: 12-17-2024 X-ray of lumbosacral spine L/S Spine Min 4 Views [facility] Start: 12-17-2024 XR Spine Lumbar and Sacrum GE 4 Views [facility] Start: 12-07-2024 End: 12-07-2024 Evaluation of diagnostic study results [facility] Start: 07-31-2024 Anes nerve muscle tdn fascia&bursa forearm wrist ANESTH LOWER ARM SURGERY [facility] Start: 07-31-2024 Tendon sheath incision INCISE FINGER TENDON SHEATH [facility] Start: 07-31-2024 Application of ice collar, cap or bag [facility] Start: 07-31-2024 Elevation of affected extremity [facility] Start: 07-31-2024 Patient discharge [facility] Start: 07-31-2024 Catheterization of vein [facility] Start: 07-31-2024 Following clinical pathway protocol [facility] Start: 07-31-2024 Procedure discontinued [facility] Start: 07-31-2024 Taking patient vital signs [facility] Start: 07-31-2024 Vital signs measurements [facility] Start: 07-31-2024 [facility] Start: 07-31-2024 Medication education [facility] Start: 07-26-2024 Egd removal tumor polyp/other lesion snare tech EGD REMOVE LESION SNARE [facility] Start: 07-26-2024 Egd transoral biopsy single/multiple EGD BIOPSY SINGLE/MULTIPLE [facility] Start: 07-26-2024 Ercp remove calculi/debris biliary/pancreas duct ERCP REMOVE DUCT CALCULI [facility] Start: 07-26-2024 Ercp remove foreign body/stent biliary/panc duct ERCP REMOVE FORGN BODY DUCT [facility] Start: 07-26-2024 Ercp w/sphincterotomy/papill otomy ENDO CHOLANGIOPANCREATOGRAPH [facility] Start: 07-26-2024 Patient discharge [facility] Start: 08-11-2022 [facility] Start: 02-25-2022 Influenza [facility] Start: 02-23-2022 DIABETES SCREEN DIABETES SCREEN [facility] Start: 06-27-2021 ADVANCE DIRECTIVE DISCUSSION ADVANCE DIRECTIVE DISCUSSION [facility] Start: 05-26-2017 End: 05-26-2017 Appointment Appointment [facility] Work Phone: Start: 08-17-2016 End: 02-17-2016 *CBC with Differential *CBC with Differential [facility] Work Phone: Start: 08-17-2016 End: 08-17-2016 *CMP Complete Metabolic Panel *CMP Complete Metabolic Panel [facility] Work Phone: Start: 08-17-2016 End: 08-19-2016 *SPEP (Serum Protein Electrophoresis) *SPEP (Serum Protein Electrophoresis) [facility] Work Phone: Start: 08-17-2016 End: 08-19-2016 *UPEP *UPEP [facility] Work Phone: Start: 08-17-2016 End: 08-19-2016 Kovt-[id number] *B2MIC - Beta-2 Microglobulin [facility] Work Phone: Start: 08-17-2016 End: 08-19-2016 IgA *MOHIT Immunoglobulin A (IgA) [facility] Work Phone: Start: 08-17-2016 End: 08-19-2016 IgG *IMG Immunoglobulin G (IgG) [facility] Work Phone: Start: 08-17-2016 End: 08-19-2016 IgM *IMM Immunoglobulin (IgM) [facility] Work Phone: Start: 02-17-2016 End: 11-20-2015 *CBC with Differential *CBC with Differential [facility] Work Phone: Start: 02-17-2016 End: 11-20-2015 *CMP Complete Metabolic Panel *CMP Complete Metabolic Panel [facility] Work Phone: Start: 02-17-2016 End: 11-20-2015 *SPEP (Serum Protein Electrophoresis) *SPEP (Serum Protein Electrophoresis) [facility] Work Phone: Start: 02-17-2016 End: 11-20-2015 *UPEP *UPEP [facility] Work Phone: Start: 02-17-2016 End: 11-20-2015 Qfla-3-Hbjnamxqrrixa *B2MIC - Beta-2 Microglobulin [facility] Work Phone: Start: 11-18-2015 End: 08-20-2015 *CBC with Differential *CBC with Differential [facility] Work Phone: Start: 11-18-2015 End: 11-18-2015 *CMP Complete Metabolic Panel *CMP Complete Metabolic Panel [facility] Work Phone: Start: 11-18-2015 End: 08-20-2015 *MISC - Miscellaneous Lab Test #1 *MISC - Miscellaneous Lab Test #1 [facility] Work Phone: Start: 11-18-2015 End: 08-20-2015 *SPEP (Serum Protein Electrophoresis) *SPEP (Serum Protein Electrophoresis) [facility] Work Phone: Start: 11-18-2015 End: 11-20-2015 Eoxk-7-Ualnboshkjedw *B2MIC - Beta-2 Microglobulin [facility] Work Phone: Start: 11-18-2015 End: 11-20-2015 Rheumatology Referral [facility]umatology Referral [facility], [address] [place], [place] [address], [place], [address] [facility] Work Phone: Start: 08-19-2015 End: 05-20-2015 *CBC with Differential *CBC with Differential [facility] Work Phone: Start: 08-19-2015 End: 05-20-2015 *CMP Complete Metabolic Panel *CMP Complete Metabolic Panel [facility] Work Phone: Start: 08-19-2015 End: 05-20-2015 *SPEP (Serum Protein Electrophoresis) *SPEP (Serum Protein Electrophoresis) [facility] Work Phone: Start: 08-19-2015 End: 05-20-2015 Erythrocyte sedimentation rate *Sedimentation Rate (ESR) [facility] Work Phone: Start: 08-19-2015 End: 05-20-2015 Lactate dehydrogenase (LDH) *LDH -LDH (Lactate Dehydrogenase) [facility] Work Phone: Start: 08-19-2015 End: 05-20-2015 Urate *Uric Acid Blood [facility] Work Phone: Start: 2015 BONE DENSITY BONE DENSITY [facility] Start: 2015 zzPNEUMOVAX AGE 65 AND OVER WITH 5YR LOOKBACK (Retired) (#1) zzPNEUMOVAX AGE 65 AND OVER WITH 5YR LOOKBACK (Retired) (#1) [facility] Start: 06-17-2014 End: 06-17-2014 EMG EMG [facility] Work Phone: Start: 06-17-2014 End: 06-17-2014 Nerve Conduction Nerve Conduction [facility] Work Phone: Start: 03-12-2014 End: 03-12-2014 EMG EMG [facility] Work Phone: Start: 03-12-2014 End: 03-12-2014 Nerve Conduction Nerve Conduction [facility] Work Phone: Start: 03-12-2014 End: 03-12-2014 Radex hand minimum 3 views X-Ray, Hand [facility] Work Phone: Start: 2000 SHINGRIX VACCINE (1 of 2) SHINGRIX VACCINE (1 of 2) [facility] Start: 1995 COLOGUARD (FIT-DNA) COLOGUARD (FIT-DNA) [facility] Start: 1995 Colonoscopy COLONOSCOPY [facility] Start: 1995 COLORECTAL CANCER SCREENING COLORECTAL CANCER SCREENING [facility] Start: [address] COLONOGRAPHY [facility] Start: 1995 FECAL OCCULT BLOOD FECAL OCCULT BLOOD [facility] Start: 1995 LIPID SCREEN LIPID SCREEN [facility] Start: 1995 SIGMOIDOSCOPY SIGMOIDOSCOPY [facility] Start: 1990 Mammography MAMMOGRAM [facility] Start: 1969 Urine microalbumin profile DTAP,TDAP,TD (1 - Tdap) [facility] Start: 1962 Adult depression screening assessment DEPRESSION SCREENING [facility] Start: 1955 COVID-19 VACCINE (#1) COVID-19 VACCINE (#1) [facility] NM Heart Views W str ess and W radionuclide IV [facility] Work Phone: Patient Education [facility] Work Phone: Patient referral [facility] Work Phone: Immunizations Immunization Date Immunization Notes Care Provider Fa cili 04-16-2024 influenza, high dose seasonal, preservative-free Dr. Kanika Mike DO Work Phone: [facility] 02-25-2021 Influenza virus vaccine [facility] 03-26-2020 tetanus toxoid, redu shannan diphtheria toxoid, and acellular pertussis vaccine, adsorbed Kanika [facility] 04-10-2018 Influenza virus vaccine [facility] Payers Date Payer Category Payer Self-pay [id number] 2018 Medicare MMO MEDICARE MMO MEDADVANTAGE PPO [id number] 2018-Present [phone] [address] [place] [address] PPO [id number] 1959 Unknown [id number] 1950 Unknown [id number] [id number] 8 1950 Unknown [id number] 2.16.840.1.675529.3.579.2.90 2 Unknown [id number] 2.16.840.1.277727.3.579.2.46 2 Unknown [id number] 2.16.840.1.249315.3.579.2.46 2 Unknown [id number] 2.16.840.1.599102.3.579.2.46 2 Unknown [id number] 2.16.840.1.287693.3.579.2.46 2 Unknown [id number] 2.16.840.1.510298.3.579.2.46 2 Unknown [id number] 2.16.840.1.117945.3.579.2.46 2 Unknown [id number] 2.16.840.1.103412.3.579.2.46 2 Unknown [id number] 2.16.840.1.002453.3.579.2.46 2 Unknown [id number] 2.16.840.1.261190.3.579.2.46 2 Unknown [id number] 2.16.840.1.351279.3.579.2.46 2 Unknown [id number] 2.16.840.1.995740.3.579.2.46 2 Unknown [id number] 2.16.840.1.689555.3.579.2.46 2 Unknown [id number] 2.16.840.1.756247.3.579.2.46 2 Unknown [id number] 2.16.840.1.018507.3.579.2.46 2 Unknown [id number] 2.16.840.1.766677.3.579.2.46 2 Unknown [id number] 2.16.840.1.729084.3.579.2.46 2 Unknown [id number] 2.16.840.1.425365.3.579.2.46 2 Unknown [id number] 2.16.840.1.293271.3.579.2.46 2 Unknown [id number] 2.16.840.1.081407.3.579.2.46 2 Unknown [id number] 2.16.840.1.300221.3.579.2.46 2 Unknown [id number] 2.16.840.1.192066.3.579.2.46 2 Social History Date Type Detail Facility Start: 08-26-2021 End: 10-10-2023 Tobacco smoking status NHIS Unknown if ever smoked [facility] Start: 08-10-[address] [facility] Start: 03-26-2020 With Family [facility] Start: 11-23-2018 Non-smoker 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 (finding) [facility] Start: 1950 Sex Assigned At Not on file [facility] Start: 09-20-2024 Sex Female (finding) [facility] Sex Female [facility] NEGATED: Highlighted row Not [facility] Medical Equipment Procedure Code Equipment Code Equipment Original Text Equipment Identifier Dates Total cholecystectomy with exploration of common bile duct CLIP,HEMJOSHUA RIVERO FDA Start: 04-24-2024 Total cholecystectomy with exploration of common bile duct CLIP,HEMJOSHUA RIVERO FDA Start: 04-24-2024 Total cholecystectomy with exploration of common bile duct CLIP,HEMJOSHUA sellpoints JOSEFA FDA Start: 04-24-2024 Total cholecystectomy with exploration of common bile duct CLIP,HEMJOSHUA sellpoints JOSEFA FDA Start: 04-24-2024 Total cholecystectomy with [...] Start: 04-24-2024 ERCP (endoscopic retrograde cholangiopancreatograph y) ([id number]) Polymeric biliary stent, non-bioabsorbable ([id number] FDA Start: 04-16-2024 Goals Date Patient Goal Desired Activity /State Functional Status Date Assessment Result Facility 08-10-2021 Functional status Ambulates;Up ad addison [facility] Work Phone: 08-10-2021 Functional status None [facility] Work Phone: Mental Status Date Assessment Result Facility 07-31-2024 Cognitive function Voice/Name [facility] Work Phone: 07-26-2024 Cognitive function Voice/Name [facility] Work Phone: 08-11-2022 Cognitive function Level Of Cons ciousness Awake;Alert;Appropriate;Follow s Commands [facility] Work Phone: 08-26-2021 Cognitive function Level Of Cons ciousness Awake;Alert;Appropriate;Follow s Commands [facility] Work Phone: 08-16-2021 Cognitive function Level Of Cons ciousness Awake;Alert;Appropriate;Follow s Commands [facility] Work Phone: 08-10-2021 Cognitive function Voice/Name [facility] Work Phone: 08-02-2021 Cognitive function Level Of Cons ciousness Awake;Alert;Appropriate;Follow s Commands [facility] Work Phone: 06-30-2021 Cognitive function Level Of Cons ciousness Awake;Alert;Appropriate;Follow s Commands [facility] Work Phone: Clinical Notes 08-28-2020 to 03-05-2025 Note Date & Type Note Facility 03-05-2025 Radiology Diagnostic study note [facility] Imaging Services [address] [place], [place] [id number] HIP, UNI W/ Pelvis 2-3 Views MR#: [id number] Acct: [id number] Name: CHELSEY BELTRAN Rep #: [id number] : [id number] F 74 From: Niraj Arellano MD PCP: Dr. Kanika Mike, DO Status: REG CLI Study:HIP, UNI W/ Pelvis 2-3 Views Date of Ex am: 03/05/25 Exam# [id number] Ordering Dr: Charlie Reed MD PROCEDURE: HIP, UNI W/ PELVIS 2-3 VIEWS 03/05/2025 REASON FOR EXAM: HIP PAIN TECHNIQUE: Procedure Code: RADHP Modality: DX Procedure: HIP, UNI W/ PELVIS 2-3 VIEWS Laterality: COMPARISON: 09/29/2020. FINDINGS: No evidence of acute fracture or dislocation. Severe right and mild left hip osteoarthrosis. Degenerative changes of the partially visualized spine. RAD/HIP, UNI W/ Pelvis 2-3 Views IMPRESSION: Lkesd-ynuqicw-pfcl-left hip osteoarthrosis. Reading Location: [id number] CC: Dr. Kanika Mike DO; Dr. Charlie Reed MD ~ Scrub Technician: Signed [facility] 12-07-2024 Evaluation note Diagnosis Onset Date Resolution Atherosclerotic heart disease of [place] coronary artery without angina pectoris chronic December 07, 2024 1:13pm Essential hypertension chronic Ju ne 2024 1:13pm HLD (hyperlipidemia) chronic December 07, 2024 1:13pm Paroxysmal atrial fibrillation chronic December 07, 2024 1:13pm 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 acute December 17, 2024 2:33pm Lumbar stenosis with neuroge philippe claudication acute December 17, 2024 2:33pm Spondylolisthesis of lumbar region a cute December 17, 2024 2:33pm [facility] Work Phone: 1(103) 260-801406-13-2025 Evaluation note* Diagnosis Onset Date Resolution Status Admit Date Atherosclerotic heart diseas e of [place] coronary artery without angina pectoris chronic December [...] 2:33pm Arthritis of right hip acute Ju 2024 2:56pm 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 Work Phone: 1(882) 119-703202-04-2025 [facility] Medical Records Department [address] [place] [address] History Physical Exam 07/31/24 0703 MR#: [id number] Acct: [id number] Name: ABDIRIZAKCHELSEY ARNOLD Rep #: [id number] : 1950 74 From: Raj Walker DO PCP: Dr. Kanika Mike DO Status:[facility] Location: [place] [address] History and Physical Date of Admission: 07/31/24 [facility] [address] [place] [address] [place] [address] OFFICE VISIT Date of Service: 07/04/24 MR#: [id number] Acct: [id number] Name: ABDIRIZAKBARAJASJOSE ROBERTO Gaspar Rep #: [id number] : 1950 Provider: Dr. Raj Walker DO Age/Sex: 73/F [place] [facility] Status: Signed Intake Vital Signs 04/24/2412:20 Height [...] artery disease) COVID-19 ( 06/2021) History of AL (myocardial infarction) History of coronary artery disease Essential hypertension Monoclonal gammopathy of unknown significance (MGUS) Monoclonal gammopathy Temporal arteritis Osteoarthritis of left shoulder Asthma HLD (hyperlipidemia) HTN (hypertension) Atherosclerotic heart disease of [place] coronary artery without angina pectoris Acute ST [...] visit was documented by (more content not included)...[facility]01-30-2025 [facility] Medical Records Department [address] [place] [address] History Physical Exam 07/26/24 1216 MR#: [id number] Acct: [id number] Name: OCTAVIOCHELSEY THOMSON Hubert Rep #: [id number] : 1950 74 From: Denton Friend DO PCP: Dr. Kanika Mike, DO Status:[facility] Location: [place] [address] HPI - General General Date of Admission: 07/26/24 Date of Service: 07/26/24 Chief Complaint: Biliary stent removal HPI Narrative CHELSEY BELTRAN, is a 74 F who presentsTERJOSE ROBERTO CUNNINGHAMCHERYLCLAYTON, is a 73 F who presents today [...] (hyperlipidemia) HTN (hypertension) Atherosclerotic heart disease of [place] coronary artery without angina pectoris Acute ST [...] of delivery Stented coronary (more content not included)...[facility] 05-28-2024 Evaluation note* Diagnosis Onset Date Resolution Status Admit Date Choledocholithiasis with acu te cholecystitis with obstruction acute D ec2023 9:39am Elevated liver enzymes acute De cember 2023 9:39am S/P cholecystectomy acute Decem nehemias 2023 9:39am Trigger finger of right hand acute July 04, 2024 11:24am Choledocholithiasis with acu te cholecystitis with obstruction acute J anuary 2024 11:15am Orthopedic aftercare acute Febr uary 2024 12:45pm [facility] Work Phone: 1(374) 841-476110-29-2024 [facility] Medical Records Department [address] [place] [address] History Physical Exam 04/24/24 1211 MR#: [id number] Acct: [id number] Name: CHELSEY BELTRAN Rep #: [id number] : 1950 73 From: Opal Whitehead MD PCP: Dr. Kanika Mike, DO Status:[facility] Location: [place] [address] History and Physical Date of Admission: 04/24/24 04/17/24 1237 MR#: [id number] Acct: [id number] Name: CHELSEY BELTRAN : 1950 ADDENDUM by [...] questions were answered. Opal Whitehead M.D. Pager: [phone] [facility] [address] [place], [place] [address], [address] [place] [address] Office: [phone] 04/17/24 1880 Signed Assessment Plan Assessment/Plan (1) Elevated liver [...] history of abdominal pain. Patient notes having mongolian food, grilled chicken and vegetables, on . [...] blood thinner is aspirin. She states her ring packer is Dr. Davila. She notes recently having [...] removal was complete with one stent placed. [facility] Medical History COVID-19 ( 06/2021) History of AL (myocardial inf (more content not included)...[facility]02-15-[address] Infante [facility] August 11, 2022 10:20pm Note Date/Time August 11, 2022 10:03pm [facility] Medical Records Department [address] [place] [address] Emergency Department Summary 08/11/22 MR#: [id number] Acct: [id number] Name: CHELSEY BELTRAN Rep #:[id number] : 1950 72 From: Mikhail Infante MD [...] appetite is down. She is drinking fluids. [facility] Medical History Acute ST elevation myocardial infarction Arthritis Asthma Atherosclerotic heart disease of [place] coronary artery without angina pectoris COVID-19 (~06/2021) Essential hypertension GERD (gastroesophageal reflux disease) GERD (gastroesophageal reflux disease) History of coronary artery disease History of AL (myocardial infarction) HLD (hyperlipidemia) HTN (hypertension) Hypothyroidism [...] % (Auto) 61.0 Lymph % (Auto) 23.7 [place]osh[place] % (Auto) 13.2 H Eos % (Auto) [...] of acute cardiopulmonary process Electronically Signed: [place]ico oDwell MD at 20:31 EST , Discharge Plan [...] your Primary Care Provider. Call [facility] ([phone]) or report to the closest Emergency Room. Call 911 if necessary. 08/11/222219 <Electronically signed by Mkihail Infante MD> Cosigner Signature (if applicable): CC: Kanika Mike ~ Signed [facility] Work Phone: 1(833) 179-902903-04-2021 NoteHNO ID: [id number] Author: Brisa Yanez Service: ? Author Type: [...] external genitalia normal, normal Bartholin's glands, urethra, Nekoma's glands, no vulvar lesions, no cervical lesions, [...] as needed. Brisa Gibbs (more content not included)...[facility] Diagnosis Onset Date Resolution Status Atrial fibrillation with rapid ventricular response resolved CHAMBERS (dyspnea on exertion) ac corinne Paroxysmal atrial fibrillation with RVR acute [facility] Work Phone: Evaluation noteNo assessment information available [facility] Work Phone: Evaluation note* Diagnosis Onset Date Resolution Status Atherosclerotic heart diseas e of [place] coronary artery without angina pectoris acute Essential hypertension chron ic HLD (hyperlipidemia) chronic Paroxysmal atrial fibrillation chronic [facility] Work Phone: Evaluation note* Diagnosis Onset Date Resolution Status Atherosclerotic heart diseas e of [place] coronary artery without angina pectoris chronic Essential hypertension chron ic HLD (hyperlipidemia) chronic Paroxysmal atrial fibrillation chronic [facility] Work Phone: [facility] Work Phone: Reason for referral (narrative)No reason for referral information availableK[facility] Work Phone: Summary Purpose Family History No Family History Records Found Relationship Condition Age at Onset Recorded Date/T tank mother Malignant neoplasm Unknown Anemia Unknown father Malignant neoplasm Unknown Cardiac disease Unknown Advance Directives No Advanced Directives Records Found Advance Directive Response Recorded Date/ Time Name of Medical Power of Concrete Pavement Installer June 30, 2021 4:47am Name of Medical Power of Concrete Pavement Installer FRANCIS REVELES ER August 02, 2021 3:44pm Name of Medical Power of Concrete Pavement Installer Karthik, August 08, 2021 4:03pm Name of Medical Power of Concrete Pavement Installer DEISI bang August 16, 2021 2:29pm Advance Directives Yes December 29 12:10pm Living Will Yes August 26, 2021 5:08am Power of Concrete Pavement Installer Yes August 26 5:08am Advance Directive Response Recorded Date/ Time Advance Directives Yes December 29 12:10pm Living Will Yes August 26, 2021 5:08am Power of Concrete Pavement Installer Yes August 26 5:08am Advance Directive Response Recorded Date/ Time Advance Directives Yes December 29 11:10am Living Will Yes August 26, 2021 4:08am Power of Concrete Pavement Installer Yes August 26 4:08am Advance Directive Response Recorded Date/ Time Name of Medical Power of Concrete Pavement Installer FRANCIS REVELES CLAYTON August 11, 2022 9:33pm Advance Directives Yes December 29 11:10am Living Will Yes August 11, 2 023 9:33pm Power of Concrete Pavement Installer Yes August 11, 2022 9:33pm Advance Directive Response Recorded Date/ Time Advance Directives Yes December 29 12:10pm Living Will Yes August 11, 2 023 10:33pm Power of Concrete Pavement Installer Yes August 11, 2022 10:33pm Advance Directive Response Recorded Date/ Time Advance Directives Yes October 09, 2 024 2:22pm Living Will Yes October 10, 2023 2:22pm Power of Concrete Pavement Installer Yes October 09 2:22pm Advance Directive Response Recorded Date/ Time Living Will Yes April 15 10:01pm Do you have a Healthcare Power of Concrete Pavement Installer? Yes April 15, 2024 10:01pm Living Will Yes July 19 4:03pm Do you have a Healthcare Power of Concrete Pavement Installer? Yes July 19, 2024 4:03pm Name of Medical Power of Concrete Pavement Installer SON July 19, 2024 4:03pm Living Will Yes July 19 3:49pm Do you have a Healthcare Power of Concrete Pavement Installer? Yes July 19, 2024 3:49pm Name of Medical Power of Concrete Pavement Installer SON July 19, 2024 3:49pm Advance Directives Yes October 09, 2 024 2:22pm Advance Directive Response Recorded Date/ Time Advance Directives Yes October 09 024 2:22pm Chief Complaint and Reason for Visit [...] for Visit Atherosclerotic hear t disease of [place] coronary artery without angina pectoris Essential hypertension HLD (hyperlipidemia) Paroxysmal atrial fibrillation Chief Complaint INT LABS 6 M FU EVALUATE ANGINAL EQUIVALENT FOR SOB & FATIGUE EVALUATE ANGINAL EQUIVALENT FOR SOB & FATIGUE Reason for Visit Atherosclerotic hear t disease of [place] coronary artery without angina pectoris Essential hypertension HLD (hyperlipidemia) Paroxysmal atrial fibrillation Chief Complaint INT LABS 6 M FU EVALUATE ANGINAL EQUIVALENT FOR SOB & FATIGUE EVALUATE ANGINAL EQUIVALENT FOR SOB & FATIGUE SCREENING Reason for Visit Atherosclerotic hear t disease of [place] coronary artery without angina pectoris Essential hypertension HLD (hyperlipidemia) Paroxysmal atrial fibrillation Chief Complaint EVALUATE ANGINAL EQU IVALENT FOR SOB & FATIGUE EVALUATE ANGINAL EQUIVALENT FOR SOB & FATIGUE SCREENING 3 M FU general illness Reason for Visit Atherosclerotic hear t disease of [place] coronary artery without angina pectoris Essential hypertension HLD (hyperlipidemia) Paroxysmal atrial fibrillation Chief Complaint SCREENING Chief Complaint SCREENING Age-related osteoporosis without current pathologi Chief Complaint Admit Date Hospital FU May 28, 2024 9 :39am NO ORDER YET FROM May 11:25am RIGHT HAND July 04, 2024 11 :24am PREOP July 26, 2024 1 1:39am Right middle finger A1 puller Release Fe [place] 2024 5:42am Right middle finger A1 puller Release Fe [place] 2024 7:03am right hand August 13, 2024 [...] Admit Date Atherosclerotic heart diseas e of [place] coronary artery without angina pectoris December 07, [...] Admit Date Atherosclerotic heart diseas e of [place] coronary artery without angina pectoris December 07, [...] Admit Date Atherosclerotic heart diseas e of [place] coronary artery without angina pectoris December 07, [...] section and content) DATE CREATED AUTHOR 12/21/2018 [facility] DATE CREATED AUTHOR AUTHOR'S ORGANIZ ATION 08/06/2021 [facility] DATE CREATED AUTHOR AUTHOR'S ORGANIZ ATION 10/06/2021 [facility] DATE CREATED AUTHOR AUTHOR'S ORGANIZ ATION 11/26/2021 [facility] [place] DATE CREATED AUTHOR AUTHOR'S ORGANIZ ATION 04/21/2025 [facility] Goals (unrecognized section and content) Goals may [...] or prosecute any alcohol or drug abuse patient.[facility] Care Teams (unrecognized sec tion and content) [employer]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 Kanika Mike DO Family Provider Active Kanika Mike Primary Care Provider Active Team Status: Inactive Member Role Status Dates Kanika Mike Primary Care Provider, Referring Provide r Active Artur Kingston DOOR FITTER, DOOR FITTER-C Attending Provider Active Team Status: Active Member Role Status Dates Kanika Mike Primary Care Provider Active Artur Kingston DOOR FITTER, DOOR FITTER-C Other Provider Active Dr. Feliciano Sauceda MD Attending Provider Active Team Status: Inactive Member Role Status Dates Kanika Mike Primary Care Provider Active Artur Kingston DOOR FITTER, DOOR FITTER-C Attending Provider Active Team Status: Inactive Member [...] BE BASED ON THE PRIMARY CLINICAL RECORDS. [employer] provides no warranty or guarantee of the accuracy or completeness of information in this document.
== END | disposition home or self-care (01) ==
LOC: BFHLAB 14:10
PROVIDERS: PCP Family Medicine; Visit Provider Family Medicine
DX: I25.10 Atherosclerotic heart disease of native coronary artery without angina pectoris (principal); I10 Essential (primary) hypertension; E55.9 Vitamin D deficiency, unspecified; M35.3 Polymyalgia rheumatica; E03.9 Hypothyroidism, unspecified
CPT/HCPCS: 36415; 80053; 80061; 82306; 84443; 85025; 85652; 86140

== ENCOUNTER 2025-06-23 18:44 | Emergency (ER) | payer MEDICARE, SELFPAY ==
[2023-10-10 14:22] VITALS: BMI 38.3
[2025-06-23] VITALS (7 sets, daily range): BP systolic 100–124; BP diastolic 48–86; PULSE 61–71; RESP 15–18; TEMP 36.4–36.7; O2SAT 97–100; BMI 33.3
--- NOTE | 2025-06-23 18:54 | ED.VIS.CHEST ---
HPI History of Present Illness Chief Complaint: Chest Pain Informant: patient Onset/Context/Timing Onset: Today Activity at onset: gradual Timing: Intermittent Quality: Positive for - (Pinching) Location: Substernal Worsened By: Nothing Relieved By: Nothing Associated Symptoms: Positive for Dyspnea, Lightheadedness and Palpitations; Negative for Nausea, Vomiting, Diaphoresis, Cough, Fever or Acid Reflux Narrative Narrative: Patient presents with feeling lightheaded that began today. Patient states she has been having some chest pain as well. Patient describes it as pinching. Patient states is over the substernal area. Patient states it is intermittent. Patient states nothing makes it better and nothing makes it worse. Patient admits to some shortness of breath. Patient also admits to some palpitations. Patient denies any nausea or vomiting. Patient denies any cough or fever. Patient denies any PE risk factors. CVD Risk Factors: Positive for Hypertension, Hypercholesterolemia and Family History 1' </=55; Negative for Diabetes or Smoking PE Risk Factors: Negative for Recent Travel/Surgery, Recent Immobilization, Prior DVT or PE, Cancer or OCP + Smoking + >/=35 PFSH PFSH Medical History Arthritis of right hip Osteoporosis Wears glasses Post-menopausal Rheumatoid arthritis Ambulates with cane Polymyalgia rheumatica High cholesterol Giant cell arteritis Ulcerative colitis Non-smoker History of atrial fibrillation History of echocardiogram History of stress test Cardiology follow-up encounter Hypertension CAD (coronary artery disease) COVID-19 (~06/2021) History of coronary artery disease Monoclonal gammopathy of unknown significance (MGUS) Monoclonal gammopathy Temporal arteritis Osteoarthritis of left shoulder Asthma HLD (hyperlipidemia) HTN (hypertension) Atherosclerotic heart disease of [place] coronary artery without angina pectoris Acute ST elevation myocardial infarction GERD (gastroesophageal reflux disease) Hypothyroidism M?ni?re's disease Retinal tear of left eye Ulnar neuropathy Polyclonal gammopathy IBS (irritable bowel syndrome) Vitamin D deficiency Osteopenia Incontinence Knee pain PVC's (premature ventricular contractions) SOB (shortness of breath) Arthritis Home Medications ?Medication ?Instructions ?Recorded ?Last Taken ?Type levothyroxine 50 mcg tablet 50 mcg PO DAILY Thyroid 12/31/16 07/29/24 History acetaminophen 500 mg tablet 500 - 1,000 mg PO DAILY PRN PRN 08/06/20 08/01/20 History Pain 1-10 Or Fever omeprazole 40 mg capsule,delayed 40 mg PO BID gerd 08/05/21 07/30/24 History release atorvastatin 80 mg tablet 80 mg PO QHS cholesterol 08/08/21 07/30/24 History hydrochlorothiazide 25 mg tablet 25 mg PO DAILY diuretic 08/28/21 07/29/24 History cholecalciferol (vitamin D3) 50 2,000 unit PO DAILY SUPPLEMENT 04/05/22 07/29/24 History mcg (2,000 unit) capsule mecobalamin (vitamin B12) 1,000 1,000 mcg sublingual DAILY 10/26/23 04/13/24 History mcg disintegrating supplement tablet,sublingual metoprolol tartrate 50 mg tablet 50 mg PO QDAY BP 12/07/24 Unknown History triazolam 0.25 mg tablet 0.25 mg PO 06/11/25 Unknown History losartan 25 mg tablet 25 mg PO DAILY blood pressure #90 06/18/25 Unknown Rx tabs Allergy/AdvReac Type Severity Reaction Status Date / Time clarithromycin (From Biaxin) Allergy Rash Verified 06/23/25 18:49 sulfamethoxazole (From Allergy Rash Verified 06/23/25 18:49 Bactrim) trimethoprim (From Bactrim) Allergy Rash Verified 06/23/25 18:49 carvedilol (From Coreg) AdvReac Intermediate Nausea, Verified 06/23/25 18:49 Lightheaded codeine AdvReac Upset Verified 06/23/25 18:49 Stomach lisinopril AdvReac cough Verified 06/23/25 18:49 Penicillins AdvReac Other Verified 06/23/25 18:49 Family History Mother Cancer skin Anemia Father Cancer Heart disease Surgical History History of ERCP Hx laparoscopic cholecystectomy S/P cholecystectomy History of cataract extraction with lens replacement History of coronary artery stent placement History of cardiac catheterization History of temporal artery biopsy (~12/2018) History of delivery Stented coronary artery (06/20/18) History of dilatation and curettage Hx of breast biopsy Hx of tonsillectomy Social History Smoking Status: Never smoker alcohol intake: never substance use type: does not use caffeine: No ROS ROS ED Constitutional Constitutional ED: Denies chills or fever(s) Eyes Eyes: Denies blurry vision or change in vision ENT ENT ED: Denies rhinorrhea or sore throat Cardiovascular Cardiovascular: Reports chest pain and palpitations Respiratory/Chest Respiratory/Chest: Reports dyspnea; Denies cough Gastrointestinal Gastrointestinal: Denies nausea or vomiting Genitourinary Genitourinary ED: Denies dysuria or hematuria Musculoskeletal Musculoskeletal: Reports back pain; Denies neck pain Integumentary Denies abscess or rash Neurologic Neurologic: Reports headache(s); Denies weakness Allergic/Immunologic Allergic/Immunologic ED: Denies mouth swelling or urticaria EXAM Physical Exam Const Vital Signs: 06/23/25 18:45 06/23/25 19:00 06/23/25 19:23 Temperature 97.5 F L Temperature Source Oral Pulse Rate 71 Respiratory Rate 18 Respiratory Effort Normal Non-Labored Blood Pressure 105/48 L Blood Pressure Mean 67 Pulse Ox 98 97 Oxygen Delivery Method Room Air Room Air 06/23/25 19:44 06/23/25 19:50 06/23/25 20:00 Temperature Temperature Source Pulse Rate 66 61 68 Respiratory Rate 16 16 Respiratory Effort Blood Pressure 117/68 117/68 102/50 L Blood Pressure Mean 84 67 Pulse Ox 100 98 Oxygen Delivery Method Room Air Room Air 06/23/25 21:00 Temperature Temperature Source Pulse Rate 69 Respiratory Rate 15 Respiratory Effort Blood Pressure 100/48 L Blood Pressure Mean 65 Pulse Ox 98 Oxygen Delivery Method Room Air Positive well nourished and well developed General Appearance ED: well developed and NAD HEENT Reports moist mucous membranes Neck supple and no JVD Resp normal respiratory effort and clear to auscultation bilaterally Cardio regular rate and regular rhythm GI soft to palpation, non-tender and non-distended Extremity normal to inspection General Extremety ED: Negative for edema or tenderness General Extremity: Negative for edema Neuro oriented x3, CN's II-XII intact bilaterally and no sensory deficits noted Sensorium / Orientation: awake and alert Motor Exam: strength 5/5 throughout Psych mental status grossly normal Heart Score History: Slightly/Non-Suspicious ECG: Normal Age: >/= 65 years Risk Factors: >/= 3 Risk Factors or History of CAD Troponin: </= Normal Limit Score: 4 MDM MDM MDM Narrative Medical decision making narrative: Differential includes cardiac dysrhythmia, cardiac ischemia, pneumonia, bronchitis, dehydration, electrolyte abnormality, musculoskeletal pain, and anxiety. EKG will be obtained to assess for cardiac dysrhythmia and cardiac ischemia. Chest x-ray will be obtained to assess for pneumonia or bronchitis. CBC will be obtained to assess for leukocytosis and anemia. Basic metabolic profile will be obtained to assess for electrolyte abnormality renal function. High-sensitivity troponin will be obtained to assess for cardiac ischemia. 2-hour repeat high-sensitivity troponin will be obtained to assess for ongoing cardiac ischemia. History & Record Review Additional record(s) reviewed:: Prior outpatient record, Prior ED visit and Prior labs Lab Data Attestation: I reviewed the patient's lab results. Lab results narrative: CBC was reviewed. There is a mild anemia with a hemoglobin of 11.1 and hematocrit 35.4. The remainder is within normal limits. Basic metabolic profile was reviewed and was essentially within normal limits. Initial high-sensitivity troponin was reviewed and was less than 6. 2-hour repeat high-sensitivity troponin was reviewed and was 7. Labs: Laboratory Results - last 24 hr 06/23/25 06/23/25 19:03 21:26 WBC 8.1 RBC 4.14 L Hgb 11.1 L Hct 35.4 L MCV 85.5 MCH 26.8 L MCHC 31.4 L RDW Std Deviation 44.5 H RDW Coeff of Agnieszka 14.4 Plt Count 197 MPV 11.5 Immature Gran % (Auto) 0.600 Neut % (Auto) 65.8 Lymph % (Auto) 22.5 Kane % (Auto) 8.9 Eos % (Auto) 1.6 Baso % (Auto) 0.6 Absolute Neuts (auto) 5.3 Absolute Lymphs (auto) 1.81 Nucleated RBC % 0 Sodium 137 Potassium 3.4 L Chloride 102 Carbon Dioxide 24.9 Anion Gap 11 BUN 15 Creatinine 0.74 Estim Creat Clear Calc 59.06 Est GFR (MDRD) Non-Af 85 BUN/Creatinine Ratio 19.6 Glucose 116 H Calcium 8.7 Troponin T High Sens < 6 D Troponin T Hi Sens 2 Hr 7 Radiography Chest X-Ray - ED: 1 View, Read by ED Physician, Read by Radiologist and No Acute Disease Diagnostic Testing: Clinical Impression(s) from Imaging Studies Chest X-Ray 06/23/25 19:23 IMPRESSION: No acute cardiopulmonary findings. Reading Location: [facility] Portable 1 view chest x-ray was obtained. On my independent interpretation, lung meredith are clear. There is normal cardiac silhouette. Bony thorax is normal. There is no acute process noted. Radiologist also interpreted the x-ray and agrees. EKG Initial EKG: Attestation: I personally reviewed and interpreted this EKG as follows: Interpretation: Sinus Rhythm (69) and No Acute Injury Pattern Comments: EKG was obtained. On my independent interpretation, it showed a normal sinus rhythm with a rate of 69. UT interval, QRS interval, and QTc intervals were all normal. Atkins was normal. There are no acute ST or T wave changes. Prior EKG tracings: available for review Prior: Unchanged (06/11/2025) Treatment and Re-Evaluation :: Patient was given aspirin and sublingual nitroglycerin. Patient was feeling better on reevaluation. The [employer] Holter monitor was contacted. Patient was noted to have 3 episodes today where she had occasional PVCs and PACs. Patient was advised of her findings. Patient has a HEART score of 4. Patient was instructed to follow-up with her primary care physician and cardiology as scheduled. Patient was instructed to return if worse in any way. Patient understood and was agreeable with plan. All questions were answered. Discharge Plan Triage Chief Complaint: Chest Pain ED Provider: Maurilio Mosquera Dx/Rx/DC Orders Clinical Impression: Chest pain, Heart palpitations Instructions: ED Chest Pain, Uncertain Cause, ED Heart Palpitations Prescriptions: No Action cholecalciferol (vitamin D3) 50 mcg (2,000 unit) capsule 2,000 unit PO DAILY mecobalamin (vitamin B12) 1,000 mcg tablet,disintegrating 1,000 mcg sublingual DAILY Rx Instructions: place tablet under tongue and allow to dissolve for at least30 secs before swallowing metoprolol tartrate 50 mg tablet 50 mg PO QDAY triazolam 0.25 mg tablet 0.25 mg PO levothyroxine 50 MCG tablet 50 mcg PO DAILY omeprazole 40 mg capsule,delayed release(DR/EC) 40 mg PO BID acetaminophen 500 MG tablet 500 - 1,000 mg PO DAILY PRN PRN (Reason: Pain 1-10 Or Fever) atorvastatin 80 mg tablet 80 mg PO QHS hydrochlorothiazide 25 mg tablet 25 mg PO DAILY losartan 25 mg tablet 25 mg PO DAILY Qty: 90 3RF Primary Care Provider: Miakel Ramires Referrals: Wilton Davila MD [Med Staff - Active Staff, Cardiology] - 3-5 Days Mikael Ramires DO [Primary Care Provider, Family Practice] - 3-5 Days Print Language: Yoruba Disposition Disposition: Home, Self Care
--- NOTE | 2025-06-23 19:23 | RAD_ITS ---
PROCEDURE: CHEST 1 VIEW (PORTABLE) 06/23/2025 REASON FOR EXAM: CHEST PAIN TECHNIQUE: Frontal view of the chest. FINDINGS: There are no focal opacities, pleural effusions, or pneumothoraces. The heart size is unremarkable. The upper abdomen is unremarkable. The osseous structures are intact. RAD/Chest 1 View (Portable) IMPRESSION: No acute cardiopulmonary findings. Reading Location: [id number]
--- NOTE | 2025-06-23 19:23 | EKG12_ITS ---
Test Reason : CP Blood Pressure : */* mmHG Vent. Rate : 69 BPM Atrial Rate : 69 BPM P-R Int : 158 ms QRS Dur : 80 ms QT Int : 404 ms P-R-T Axes : 24 4 22 degrees QTcB Int : 432 ms Normal sinus rhythm Normal ECG Confirmed by Barry Alves ([id number]), managing editor MINNA JACKSON ([id number]) on 06/25/2025 10:02:04 AM Referred By: ES Confirmed By: Barry Alves
--- OUTSIDE RECORDS SUMMARY | 2025-06-23 19:24 | XMS RPT_ITS | CCD ---
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 Feliciano Sauceda Attending Provider [phone] LIAISON, COURT LIAISON-C Artur Elizabeth Referring Provider Dr. Donis Ty Emergency Provider Dr. Brittney Victoria Admit Provider Dr. Brittney Victoria Attending Provider Dr. Brittney Victoria Other Provider Dr. Maurilio Maritns Attending Provider Dr. Maurilio Martins Other Provider Dr. Sumi Montes De Oca Referring Provider Kanika Mike Referring Provider Unavailable Montrell COURT LIAISON, COURT LIAISON-C Lindsey Attending Provider CHARLIE HELTON Attending Unava ilable KANIKA MIKE Primary Care Unavailable Kanika Mike DO Primary Care Provider Kanika Mike Primary Care Provider UnavailKanika Fairchild Referring Provider Unavailable Vashti COURT LIAISON, COURT LIAISON-C Artur Elizabeth Attending Provider Kanika Mike Primary Care Provider UnavailKanika Fairchild Referring Provider Unavailable Vashti COURT LIAISON, COURT LIAISON-C Artur Elizabeth Attending Provider Roof COURT LIAISON, COURT LIAISON-C Artur Elizabeth Other Provider Dr. Feliciano Sauceda Attending Provider Kanika Mike Primary Care Provider Unavailabl e Kanika Mike Referring Provider Unavailable Vashti COURT LIAISON, COURT LIAISON-C Artur Elizabeth Attending Provider Keyla MCCOY, Dr. Youssef Primary Care Provider Keyla MCCOY, Dr. Youssef Referring Provider [phone] Layla Nguyen Attending Provider [facility], Dr. Chawla Attending Provider [facility], Dr. Chawla Referring Provider Denise MCCOY, Dr. Anthony Attending Provider Don KAY, Dr. Rosenberg Attending Provider Don KAY, Dr. Rosenberg Referring Provider [facility], Dr. Chawla Other Provider [phone] [facility] , Dr. Anthony Referring Provider [place] , Dr. Anthony Other Provider [facility] , Dr. Youssef Attending Provider [phone] [...] Provider Feng KAY, Dr. Martinez Attending Provider [facility] , Dr. Youssef Primary Care Provider Keyla DO, Dr. Youssef Attending Provider Keyla MCCOY, Dr. Youssef Primary Care Physician Lola KAY, Dr. Mcdowell Attending Physician Rylie Reis Attending Physician Jakub KAY, Dr. Padilla Attending Physician Feng KAY, Dr. Martinez Attending Physician Keyla MCCOY, Dr. Youssef Attending Physician Derek KAY, Dr. Guerra Attending Physician [phone] Derek AKY, Dr. Guerra Referring Provider Keyla, Kanika Primary [...] Unavailable Keyla, Kanika Primary Care Unavailable Jakub, Kendall Attending Unavailable Keyla, Kanika Primary Care Unavailable Prayson, Charlie Referring Unavailable Prayson, Charlie Attending Unavailable Keyla, Kanika Primary Care Unavailable Friend, Denton Referring Unavailable Friend, Denton Attending Unavailable Keyla, Kanika Referring Unavailable Keyla, Kanika Attending Unavailable Keyla, Kanika Primary Care Unavailable Allergies Allergy Classification Reported Allergen(s) Allergy Type Date of Onset Reaction(s) Facility (2 sources) clarithromycin Drug Allergy 01-30-20 14 Rash, unknown [facility] Work Phone: (20 sources) codeine; Translations: [CODEINE] Drug Allergy 07-25-19 07 Upset Stomach [facility] Work Phone: Comment on above: FLUSHING AND VOMITTI NG (2 sources) codeine Drug Allergy 01-30-20 14 Skin turned red, nauseas, hot skin, unknown [facility] Work Phone: (2 sources) iodine Drug Allergy 01-30-20 14 Couldn't breathe, unknown [facility] Work Phone: (1 source) penicillin Drug Allergy 01-30-20 14 [facility] Work Phone: (2 sources) penicillin g Drug Allergy 01-30-20 14 Passed out, unknown [facility] Work Phone: (2 sources) pseudoephedrine Drug Allergy 01-30-20 14 unknown, Rash [facility] Work Phone: (3 sources) sulfamethoxazole / trimethoprim; Translations: [BACTRIM] Drug Allergy 01-30-20 14 Rash, unknown [facility] Work Phone: (1 source) IODINE DYE drug allergy 01-30-20 14 [facility] Work Phone: (1 source) ZEPHEREX drug allergy 01-30-20 14 [facility] Work Phone: (1 source) BIOXIN drug allergy 01-30-20 14 [facility] Work Phone: (18 sources) carvedilol Drug Allergy 08-18-19 22 Nausea, Lightheaded [facility] (20 sources) Clarithromycin; Translations: [CLARITHROMYCIN] Drug Allergy 07-25-19 07 Rash [facility] Repository (19 sources) Lisinopril Drug Allergy 02-24-20 19 Cough [facility] (20 sources) Penicillins; Translations: [Penicillins] Propensity to adverse reactions 07-25-19 07 Other [facility] Work Phone: Comment on above: as a child (18 sources) Sulfamethoxazole Drug Allergy 08-18-19 22 Rash [facility] (18 sources) Trimethoprim Drug Allergy 08-18-19 Rash [facility] (1 source) Penicillin; Translations: [PENICILLIN G] Drug Allergy 09-29-19 22 [facility] Repository (2 sources) Sulfamethoxazole / Trimethoprim; Translations: [SULFAMETHOXAZOLE-T RIMETHOPRIM] Drug Allergy 07-25-19 07 [facility] (1 source) Contrast media Propensity to adverse reactions 07-25-19 07 Anaphylaxis [facility] Work Phone: (1 source) guaiFENesin / Pseudoephedrine Drug Allergy 07-25-19 07 Rash [facility] Work Phone: (1 source) carvedilol Drug Allergy 01-10-20 25 [facility] (1 source) Clarithromycin Drug Allergy 01-10-20 25 [facility] (1 source) Lisinopril Drug Allergy 01-10-20 25 [facility] (1 source) Sulfamethoxazole Drug Allergy 01-10-20 25 [facility] (1 source) Trimethoprim Drug Allergy 01-10-20 [facility] Repository Medications Current Medications Medication Drug [...] on above: Take 1 capsule by mo [facility]. hydroCHLOROthiazide 25 mg or al tablet (20 [...] TABS 1/2 tablet by mouth daily HYDROCHLOROTHIAZIDE [id number] Kanika Mike DO Start: 01-29-2014 HYDROCHLOROTHI AZIDE TABS as directed HYDROCHLOROTHIAZIDE TABS [id number] Louisa Serra Kassykaris take 1 tablet by lana th once daily hydroCHLOROthiazide (HYDRODIURIL, ESIDRIX) 12.5 mg tablet Take 12.5 mg by mouth once daily. 0 Active End: 10-02-2015 take 1 tablet by mouth once daily HYDROCHLOROTHIAZIDE 25 MG TABS One half tablet by mouth daily HYDROCHLOROTHIAZIDE 58314641744 Lizbeth Washburn LPN Comment on above: Take [...] CPDR 2 capsules by mouth daily OMEPRAZOLE 27172490627 Kanika Mike DO Start: 01-29-2014 take 1 capsule by [facility] once daily OMEPRAZOLE 20 MG CPDR 1 capsule by mouth daily OMEPRAZOLE 96038563805 Kanika Mike DO Comment on above: Take 40 mg by mouth once daily. levothyroxine sodium 0.05 mg oral tablet (20 sources) l-Thyroxine Start: 12-31-2016 take 1 tablet by mouth once daily Start: 01-29-2014 End: 10-02-2015 take 1 tablet by mouth once daily LEVOTHYROXINE SODIUM 50 MCG TABS One tablet by mouth daily LEVOTHYROXINE SODIUM 72977792770 Kanika Mike DO Comment on above: Take 50 mcg by mouth daily before breakfast. Completed/Discontinued Medications Medication Drug Class(es) Dates Sig (Normalized) Sig (Original) [id number] 200 actuat albuterol 0.09 mg/actuat metered dose [...] ampule per day as needed ALBUTEROL SULFATE 10014675229 Kanika Mike DO Start: 10-02-2015 VENTOLIN HFA 1 08 (90 Base) MCG/ACT AERS 2 puffs every 6 hours as needed ALBUTEROL SULFATE 45487102725 Kanika Mike DO Start: 07-25-2006 take 1 [...] 120 mg by mouth once daily. ergocalciferol 87779 unt oral tablet (2 sources) Provitamin D2 Compound End: 10-02-19 take 1 tablet by mouth every week VITAMIN D (ERGOCALCIFEROL) 22464 UNIT CAPS One tablet by mouth weekly ERGOCALCIFEROL 36929937527 Lizbeth Washburn LPN Flaxseed Oil oil (1 source) Flaxseed Oil oil 1 tablet once daily. 0 Active Comment on above: 1 tablet once daily. ibuprofen 200 mg oral tablet (1 source) Nonsteroidal Anti-inflammatory Drug Start: 10-02-19 16 take 1 tablet by mouth once daily as needed IBUPROFEN 200 MG TABS One tablet by mouth daily as needed IBUPROFEN 63431731603 Kanika Mike DO levoFLOXacin 500 mg oral tablet (1 source) Quinolone Antimicrobial Start: 08-19-19 16 End: 08-22-19 16 take 1 tablet by mouth once daily LEVAQUIN 500 MG TABS one tablet PO QD LEVOFLOXACIN 14583743714 Gpoi Astorga DO lisinopril 5 mg oral tablet [...] by mouth daily as needed MECLIZINE HCL 86491952661 Kanika Mike DO End: 10-02-2015 MECLIZINE HCL 25 MG TABS One tablet by mouth every 6-8 hours as needed MECLIZINE HCL 86230319667 Lizbeth Washburn LPN Comment on above: PRN [...] 0.75 % CREA Apply as needed METRONIDAZOLE 05242495669 Kanika Mike DO Start: 07-25-2006 METROGEL 1 % T OPICAL End: 10-02-2015 METRONIDAZOLE 0.75 % CREA Ap ply to the affected area(s) twice daily as needed. METRONIDAZOLE 94398580224 Lizbeth Washburn LPN montelukast 10 mg oral [...] POTASSIMIN TAB S as directed POTASSIUM TABS 70404155490 Louisa Bell microencapsulated potassium chloride 20 meq [...] One tablet by mouth daily POTASSIUM CHLORIDE 47140076653 Kanika Mike DO take 2 tablets by mo [facility] once daily potassium chloride (K-TAB) 10 mEq tablet Take 20 mEq by mouth once daily. 0 Active End: 10-02-2015 take 1 tablet by mouth once daily KLOR-CON M20 20 MEQ CR-TABS One tablet by mouth daily POTASSIUM CHLORIDE LUIS E CR 55001133936 Kanika Mike DO take 1 tablet by lana th once daily KLOR-CON M20 20 MEQ CR-TABS One tablet by mouth daily POTASSIUM CHLORIDE LUIS E CR 52928147658 Lizbeth Washburn LPN Comment on above: Take [...] once daily PROPRANOLOL HCL ER 80 MG [id number] One tablet by mouth daily PROPRANOLOL HCL 02240651002 Lizbeth Washburn LPN Comment on above: once [...] Coronary atherosclerosis; Translations: [Atherosclerotic heart disease of [place] coronary artery without angina pectoris] Onset: 5 Chronic Comment on above: STEMI, ALLIE to mid la d (2.5 X 20 [employer]), ALLIE to proximal Diagonal #1 (2.25 X 16 [employer]) per Dr. Warner @ [facility] Disorders of lipid metabolism (20 sources) [...] (CAD)Myra/ZACK Nelson n 04-02-2025 SCRN MAMM (CAD)W/ZACK NEWELL [facility] [address] [place] [address] 311471 SCRN MAMM (CAD)W/ZACK NEWELL MR#: [id number] Acct: [id number] Name: CHELSEY BELTRAN Rep #: [id number] : 1950 F 74 From: Chelsi Weathers i, MD PCP: Dr. Kanika Mike, DO Status: REG CLI Study: SCRN MAMM (CAD)W/ZACK BILAT Date of Exam: 01/18 Exam# [id number] Ordering Dr: Kanika Mike DO EXAM: SCRN [...] be mailed to the patient. Reading Location: [id number] CC: Dr. Kanika Mike DO Care Associate: Signed Normal [facility] HIP, UNI W/ Pelvis 2-3 Views on 03-05-2025 HIP, UNI W/ Pelvis 2-3 Views [facility] [address] [place], [place] [address] HIP, UNI W/ Pelvis 2-3 Views MR#: [id number] Acct: [id number] Name: CHELSEY BELTRAN Rep #: [id number] : 1950 F 74 From: Robert Arellano MD PCP: Dr. Kanika Mike, DO Status: REG CLI Study: HIP, UNI W/ Pelvis 2-3 Views Date of Exam: 03/21 Exam# [id number] Ordering Dr: Charlie Reed MD PROCEDURE: HIP, UNI W/ PELVIS 2-3 VIEWS 03/05/2025 REASON FOR EXAM: HIP PAIN TECHNIQUE: Procedure Code: RAD Modality: DX Procedure: HIP, UNI W/ PELVIS 2-3 VIEWS Laterality: COMPARISON: 09/29/2020. FINDINGS: No evidence of acute fracture or dislocation. Severe right and mild left hip osteoarthrosis. Degenerative changes of the partially visualized spine. RAD/HIP, UNI W/ Pelvis 2-3 Views IMPRESSION: Nlsox-kgvwioz-ogzq-lef t hip osteoarthrosis. Reading Location: [id number] CC: Dr. Kanika Mike DO; Dr. Charlie Reed MD Care Associate: Signed Normal [facility] Urine Cultureon 01-26-2025 URC #1 Below infection level. GNR Poss Pseudomonas sp [place] Count <1000 Mixed Gram Positive Organisms Mixed Gram Positive Organisms MIXC Mixed contaminants. Submit a new specimen if indicated. Normal [facility] Comment on above: Performed By: #### M 100.2199, L4.2010 ####[facility] [address] [place], [place], [address] Bilirubin Test strip Ql (U)O rdered By: Kanika Mike on 01-24-2025 Bilirubin Ql (U) Negative Negative [facility] Ketones Test strip Ql (U)Ord ered By: Kanika Mike on 01-24-2025 Ketones Ql (U) Negative Negative [facility] Protein Test strip Ql (U)Ord ered By: Kanika Mike on 01-24-2025 Protein Ql (U) 15 mg/dl High Negative [facility] Urinalysis, Routine (Dipstic k)on 01-24-2025 BILIRUBIN URINE Negative Normal Negative [facility] Comment on above: Order Comment: CLEAN CATCH Performed By: #### M 100.2199, L400.2010 ####[facility] [address] [place], [place], [address] GLUCOSE, UR Normal Normal Normal [facility] Comment on above: Order Comment: CLEAN CATCH Performed By: #### M 100.2199, L4 ####[facility] [address] [place], [address] KETONE UR Negative Normal Negative [facility] Comment on above: Order Comment: CLEAN CATCH Performed By: #### M ####[facility] [address] [place], [address] LEUK ESTERASE 25 /ul Abnormal Negative [facility] Comment on above: Order Comment: CLEAN CATCH Performed By: #### M ####[facility] [address] [place], [address] OCCULT BLOOD-UR 10 /ul Abnormal Negative [facility] Comment on above: Order Comment: CLEAN CATCH Performed By: #### M ####[facility] [address] [place], [address] pH UR 6.0 Normal 5.0 - 8.0 [facility] Comment on above: Order Comment: CLEAN CATCH Performed By: #### M ####[facility] [address] [place], [address] PROT DIPSTX 15 mg/dl Abnormal Negative [facility] Comment on above: Order Comment: CLEAN CATCH Performed By: #### M ####[facility] [address] [place], [address] SP.GR. DIPSTX 1.015 Normal 1.002-1.03 0 [facility] Comment on above: Order Comment: CLEAN CATCH Performed By: #### M ####[facility] [address] [place], [address] UROBILI Normal Normal Normal [facility] Comment on above: Order Comment: CLEAN CATCH Performed By: #### M ####[facility] [address] [place], [place], [address] Urine clarityOrdered By: Marva Mike on 01-24-2025 Clarity (U) Clear Normal Clear [facility] Comment on above: Order Comment: CLEAN CATCH Performed By: #### M 100.2200, L400.2010 ####[facility] [address] [place], [place], [address] Urine color determinationOrd ered By: Kanika Mike on 01-24-2025 Color (U) Yellow Normal Yellow [facility] Comment on above: Order Comment: CLEAN CATCH Performed By: #### M 100.2200, L4.2010 ####[facility] [address] [place], [place], [address] Urine cultureOrdered By: Marva Mike on 01-24-2025 Bacteria identified Cx Nom (U) GNR Poss Pseudomonas sp Abnormal [facility] Bacteria identified Cx Nom (U) Positive Abnormal [facility] Urine glucose detectionOrder ed By: Kanika Mike on 01-24-2025 Glucose Ql (U) Normal mg/dl Normal [facility] Urine leukocyte esterase det ection by dipstickOrdered By: Kanika Mike on 01-24-2025 Leukocyte esterase Test strip Ql (U) 25 /ul High Negative [facility] Urine nitrite test by dipsti ckOrdered By: Kanika Mike on 01-24-2025 Nitrite Ql (U) Negative Normal Negative [facility] Comment on above: Order Comment: CLEAN CATCH Performed By: #### M 100.2200, L400.2010 ####[facility] [address] [place], [place], [address] Urine pHOrdered By: Kanika villalobos on 01-24-2025 pH (U) 6.0 [pH] 5.0 - 8.0 [facility] Urine specific gravity measu rementOrdered By: Kanika Mike on 01-24-2025 Specific gravity (U) [Rel density] 1.015 1.002-1.03 0 [facility] Urine urobilinogen measureme ntOrdered By: Kanika Mike on 01-24-2025 Urobilinogen Ql (U) Normal mg/dl [facility] Reporton Orthopedic Visit Report [facility] [address] [place] [address] [address] [place] [address] OFFICE VISIT Date of Service: 01/09/25 MR#: [id number] Acct: [id number] Name: CHELSEY BELTRAN Rep #: [id number] : 1950 Provider: Dr. Juan Toney MD Age/Sex: 74/F Location: [facility] Status: Signed Intake Vital Signs 12/17/24 14:50 [...] (hyperlipidemia) HTN (hypertension) Atherosclerotic heart disease of [place] coronary artery without angina pectoris Acute ST [...] by me, Dr. Juan Toney MD 01/09/25 3056. Part of today???s visit was documented by [...] distances with (more content not included)... Normal [facility] Magnetic resonance imaging r eportOrdered By: Jared Holder on 01-02-2025 Study report [facility] [address] [place] [address] Spine Lumbar (Routine) MR#: [id number] Acct: [id number] Name: CHELSEY BELTRAN Rep #: [id number] : 1950 F 74 From: Luis Holder MD PCP: Dr. Kanika Mike, DO Status: REG CLI Study:Spine Lumbar (Routine) Date of Exam: 01/01/25 Exam# [id number] Ordering Dr: Derick Schroeder PROCEDURE: SPINE LUMBAR [...] exit pathways stenosis, as detailed. Reading Location: [place] [address] CC: NINOSKA Burnette; Dr. Kanika Mike DO ~ Care Associate: Signed [facility] Spine Lumbar (Routine)on Spine Lumbar (Routine) [facility] [address] [place] [address] Spine Lumbar (Routine) MR#: [id number] Acct: [id number] Name: CHELSEY BELTRAN Rep #: [id number] : 1950 F 74 From: Jared mcneal MD PCP: Dr. Kanika Mike DO Status: REG CLI Study: Spine Lumbar (Routine) Date of Exam: 01/01/25 Exam# [id number] Ordering Dr: Rylie Schroeder PROCEDURE: SPINE LUMBAR [...] exit pathways stenosis, as detailed. Reading Location: [place] [address] CC: NINOSKA Burnette; Dr. Kanika Mike DO Care Associate: Signed Normal [facility] L/S Spine Min 4 Viewson 11-26 L/S Spine Min 4 Views [facility] [address] [place], [place] [address] L/S Spine Min 4 Views MR#: [id number] Acct: [id number] Name: CHELSEY BELTRAN Rep #: [id number] : 1950 F 74 From: Jared mcneal MD PCP: Dr. Kanika Mike DO Status: DEP AMB Study: L/S Spine Min 4 Views Date of Exam: 12/17/24 Exam# [id number] Ordering Dr: Rylie Schroeder PROCEDURE: L/S SPINE [...] CC: NINOSKA Burnette; Dr. Kanika Mike DO Care Associate: Signed Normal [facility] Orthopedic Visit Reporton Orthopedic Visit Report [facility] [address] [place] [address] OFFICE VISIT Date of Service: 12/17/24 MR#: [id number] Acct: [id number] Name: CHELSEY BELTRAN Rep #: [id number] : 1950 Provider: NINOSKA Burnette Age/Sex: 74/F Location: [facility].KO Status: Signed Intake Vital Signs 07/31/24 06:27 [...] (hyperlipidemia) HTN (hypertension) Atherosclerotic heart disease of [place] coronary artery without angina pectoris Acute ST [...] the calf (more content not included)... Normal [facility] Cardiology Visit Reporton Cardiology Visit Report [facility] [address] [place] [address] OFFICE VISIT Date of Service: 12/07/24 MR#: [id number] Acct: [id number] Name: CHELSEY BELTRAN Rep #: [id number] : 1950 Provider: Dr. 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 Normal [facility] Absolute lymphocyte countOrd ered By: Kanika Mike on 09-13-2024 Lymphocytes Auto (Unsp spec) [#/Vol] 1.51 10*3/uL 0.83-4.51 [facility] Absolute neutrophil countOrd ered By: Kanika Mike on 09-13-2024 Neutrophils (Bld) [#/Vol] 4.0 10*3/uL 2.0-7.7 [facility] Anion gap in Serum or Plasma Ordered By: Kanika Mike on 09-13-2024 Anion gap [Moles/Vol] 15 mmol/L 5-15 [facility] Automated lymphocyte count a s percentage of total leukocytesOrdered By: Kanika Mike on 09-13-2024 Lymphocytes/100 WBC Auto (Unsp spec) 24.2 % 19-41 [facility] BUN/creatinine ratioOrdered By: Kanika Mike on 09-13-2024 Urea nitrogen/Creatinine [Mass ratio] 16.7 mg/mg 10- [facility] Basophil percentageOrdered B y: Kanika Mike on 09-13-2024 Basophils/100 WBC (Bld) 0.6 % 0-1 [facility] Bilirubin, totalOrdered By: Kanika Mike on 09-13-2024 Bilirubin [Mass/Vol] 0.50 mg/dL 0.00-1.30 [facility] CBC W/Diff, Automatedon 08-26 Absolute Lymph 1.51 X10 3/uL Normal 0.83-4.51 [facility] Comment on above: Performed By: #### L 506.0400, L500.4050, L100.0100, L501.6710, L500.4100, L101.9900 #### [facility] [address] [place], [address] Absolute Neut 4.0 X10 3/uL Normal 2.0-7.7 [facility] Comment on above: Performed By: #### L 506.0400, L500.4050, L100.0100, L501.6710, L500.4100, L101.9900 #### [facility] [address] [place], [address] Basophils/100 WBC (Bld) 0.6 % Normal 0-1 [facility] Comment on above: Performed By: #### L 506.0400, L500.4050, L100.0100, L501.6710, L500.4100, L101.9900 #### [facility] [address] [place], [address] Eosinophils/100 WBC (Bld) 1.8 % Normal 0-5 [facility] Comment on above: Performed By: #### L 506.0400, L500.4050, L100.0100, L501.6710, L500.4100, L101.9900 #### [facility] [address] [place], [address] Erythrocyte distribution width (RBC) [Ratio] 14.6 % Normal 11.6-14.6 [facility] Comment on above: Performed By: #### L 506.0400, L500.4050, L100.0100, L501.6710, L500.4100, L101.9900 #### [facility] [address] [place], [address] Hematocrit (Bld) [Volume fraction] 35.5 % Low 37-47 [facility] Comment on above: Performed By: #### L 506.0400, L500.4050, L100.0100, L501.6710, L500.4100, L101.9900 #### [facility] [address] [place], [address] Hemoglobin (Bld) [Mass/Vol] 11.2 g/dL Low 12.0-15.0 [facility] Comment on above: Performed By: #### L 506.0400, L500.4050, L100.0100, L501.6710, L500.4100, L101.9900 #### [facility] [address] [place], [address] IG% 0.300 Normal 0.0-0.9 [facility] Comment on above: Result Comment: IG% - Immature Granulocytes (promyelocytes, myelocytes and metamyelocytes) > 1% indicates that a LEFT SHIFT is Present. Performed By: #### L 506.0400, L500.4050, L100.0100, L501.6710, L500.4100, L101.9900 #### [facility] [address] [place], [address] Lymphocytes/100 WBC (Bld) 24.2 % Normal 19-41 [facility] Comment on above: Performed By: #### L 506.0400, L500.4050, L100.0100, L501.6710, L500.4100, L101.9900 #### [facility] [address] [place], [address] MCH (RBC) [Entitic mass] 26.2 pg Low 27.0-32.0 [facility] Comment on above: Performed By: #### L 506.0400, L500.4050, L100.0100, L501.6710, L500.4100, L101.9900 #### [facility] [address] [place], [address] MCHC (RBC) [Mass/Vol] 31.5 g/dL Low 32-36 [facility] Comment on above: Performed By: #### L 506.0400, L500.4050, L100.0100, L501.6710, L500.4100, L101.9900 #### [facility] [address] [place], [address] MCV (RBC) [Entitic vol] 82.9 fL Normal 81-99 [facility] Comment on above: Performed By: #### L 506.0400, L500.4050, L100.0100, L501.6710, L500.4100, L101.9900 #### [facility] [address] [place], [address] Monocytes/100 WBC (Bld) 9.4 % Normal 0-10 [facility] Comment on above: Performed By: #### L 506.0400, L500.4050, L100.0100, L501.6710, L500.4100, L101.9900 #### [facility] [address] [place], [address] Neutrophils/100 WBC (Bld) 63.7 % Normal 47-70 [facility] Comment on above: Performed By: #### L 506.0400, L500.4050, L100.0100, L501.6710, L500.4100, L101.9900 #### [facility] [address] [place], [address] Nucleated RBC (Bld) [#/Vol] 0 10*3/uL Normal 0-5 [facility] Comment on above: Performed By: #### L 506.0400, L500.4050, L100.0100, L501.6710, L500.4100, L101.9900 #### [facility] [address] [place], [address] Platelet mean volume (Bld) [Entitic vol] 11.6 fL Normal 6.2-12.0 [facility] Comment on above: Performed By: #### L 506.0400, L500.4050, L100.0100, L501.6710, L500.4100, L101.9900 #### [facility] [address] [place], [address] Platelets (Bld) [#/Vol] 184 10*3/uL Normal 150-450 [facility] Comment on above: Performed By: #### L 506.0400, L500.4050, L100.0100, L501.6710, L500.4100, L101.9900 #### [facility] [address] [place], [address] RBC (Bld) [#/Vol] 4.28 10*6/uL Normal 4.2-5.4 [facility] Comment on above: Performed By: #### L 506.0400, L500.4050, L100.0100, L501.6710, L500.4100, L101.9900 #### [facility] [address] [place], [address] RDW SD 43.4 fl Normal 35.1-43.9 [facility] Comment on above: Performed By: #### L 506.0400, L500.4050, L100.0100, L501.6710, L500.4100, L101.9900 #### [facility] [address] [place], [address] WBC (Bld) [#/Vol] 6.3 10*3/uL Normal 4.4-11.0 [facility] Comment on above: Performed By: #### L 506.0400, L500.4050, L100.0100, L501.6710, L500.4100, L101.9900 #### [facility] [address] [place], [address] CRPon 09-13-2024 C-REACTIVE PROT < 3.00 Normal 0.0-3.0 [facility] Comment on above: Performed By: #### L 506.0400, L500.4050, L100.0100, L501.6710, L500.4100, L101.9900 ####[facility] [address] [facility] [place], [address] CRP [Mass/Vol]Ordered By: Evelia Mike on 09-13-2024 C-Reactive Protein Extended Range < 3.00 mg/L 0.0-3.0 [facility] Calculated very low density lipoprotein (VLDL) cholesterol measurementOrdered By: Kanika Mike on 09-13-2024 Calculated very low density lipoprotein (VLDL) cholesterol measurement 19 mg/dL -40 [facility] VLDL Cholesterol 19 mg/dL -40 [facility] Carbon dioxide, total [Moles /volume] in Central venous bloodOrdered By: Kanika Mike on 09-13-2024 CO2 [Moles/Vol] 22.1 mmol/L 21.0-32.0 [facility] Chloride assayOrdered By: Evelia Mike on 09-13-2024 Chloride [Moles/Vol] 101 mmol/L 98-108 [facility] Comprehensive Metabolic Prof ilon 09-13-2024 Albumin [Mass/Vol] 4.0 g/dL Normal 3.4-4.8 [facility] Comment on above: Performed By: #### L 506.0400, L500.4050, L100.0100, L501.6710, L500.4100, L101.9900 ####[facility] [address] [place], [address] Albumin/Globulin [Mass ratio] 1.4 {ratio} Normal 0.9-2.4 [facility] Comment on above: Performed By: #### L 506.0400, L500.4050, L100.0100, L501.6710, L500.4100, L101.9900 ####[facility] [address] [place], [address] ALK PHOS 150 U/L High 35-104 [facility] Comment on above: Performed By: #### L 506.0400, L500.4050, L100.0100, L501.6710, L500.4100, L101.9900 ####[facility] [address] [place], [address] ALT [Catalytic activity/Vol] 15 U/L Normal <=34 [facility] Comment on above: Performed By: #### L 506.0400, L500.4050, L100.0100, L501.6710, L500.4100, L101.9900 ####[facility] [address] [place], [address] AST [Catalytic activity/Vol] 19 U/L Normal <=31 [facility] Comment on above: Performed By: #### L 506.0400, L500.4050, L100.0100, L501.6710, L500.4100, L101.9900 ####[facility] [address] [place], [address] Bilirubin [Mass/Vol] 0.50 mg/dL Normal 0.00-1.30 [facility] Comment on above: Performed By: #### L 506.0400, L500.4050, L100.0100, L501.6710, L500.4100, L101.9900 ####[facility] [address] [place], [address] BUN/CRE 16.7 RATIO Normal 10-20 [facility] Comment on above: Performed By: #### L 506.0400, L500.4050, L100.0100, L501.6710, L500.4100, L101.9900 ####[facility] [address] [place], [address] Calcium [Mass/Vol] 9.3 mg/dL Normal 7.6-11.0 [facility] Comment on above: Performed By: #### L 506.0400, L500.4050, L100.0100, L501.6710, L500.4100, L101.9900 ####[facility] [address] [place], [address] Chloride [Moles/Vol] 101 mmol/L Normal 98-108 [facility] Comment on above: Performed By: #### L 506.0400, L500.4050, L100.0100, L501.6710, L500.4100, L101.9900 ####[facility] [address] [place], [address] CO2 [Moles/Vol] 22.1 mmol/L Normal 21.0-32.0 [facility] Comment on above: Performed By: #### L 506.0400, L500.4050, L100.0100, L501.6710, L500.4100, L101.9900 ####[facility] [address] [place], [address] Creatinine [Mass/Vol] 0.69 mg/dL Low 0.70-1.20 [facility] Comment on above: Performed By: #### L 506.0400, L500.4050, L100.0100, L501.6710, L500.4100, L101.9900 ####[facility] [address] [place], [address] GAP 15 Normal 5-15 [facility] Comment on above: Performed By: #### L 506.0400, L500.4050, L100.0100, L501.6710, L500.4100, L101.9900 ####[facility] [address] [place], [address] GFR/1.73 sq M.predicted among non-blacks MDRD (S/P/Bld) [Vol rate/Area] 91 mL/min/{1.73_m2} Normal >60 [facility] Comment on above: Result Comment: mL/m in/1.73m2 CKD-EPI Creatinine Equation (2020) Performed By: #### L 506.0400, L500.4050, L100.0100, L501.6710, L500.4100, L101.9900 ####[facility] [address] [place], [address] Globulin (S) [Mass/Vol] 2.9 g/dL Normal 2.2-4.2 [facility] Comment on above: Performed By: #### L 506.0400, L500.4050, L100.0100, L501.6710, L500.4100, L101.9900 ####[facility] [address] [place], [address] Glucose [Mass/Vol] 99 mg/dL Normal 70-99 [facility] Comment on above: Performed By: #### L 506.0400, L500.4050, L100.0100, L501.6710, L500.4100, L101.9900 ####[facility] [address] [place], [address] Potassium [Moles/Vol] 3.6 mmol/L Normal 3.3-5.1 [facility] Comment on above: Performed By: #### L 506.0400, L500.4050, L100.0100, L501.6710, L500.4100, L101.9900 ####[facility] [address] [place], [address] Sodium [Moles/Vol] 138 mmol/L Normal 133-145 [facility] Comment on above: Performed By: #### L 506.0400, L500.4050, L100.0100, L501.6710, L500.4100, L101.9900 ####[facility] [address] [place], [address] T PROT 6.9 g/dL Normal 5.9-8.4 [facility] Comment on above: Performed By: #### L 506.0400, L500.4050, L100.0100, L501.6710, L500.4100, L101.9900 ####[facility] [address] [place], [address] Urea nitrogen [Mass/Vol] 12 mg/dL Normal 4-19 [facility] Comment on above: Performed By: #### L 506.0400, L500.4050, L100.0100, L501.6710, L500.4100, L101.9900 ####[facility] [address] [place], [address] Eosinophil percentageOrdered By: Kanika Mike on 09-13-2024 Eosinophils/100 WBC (Bld) 1.8 % 0-5 [facility] Erythrocyte Sed Rateon 09-13 SED RATE 34 mm/hr High 0-30 [facility] Comment on above: Performed By: #### L 506.0400, L500.4050, L100.0100, L501.6710, L500.4100, L101.9900 #### [facility] [address] [place], [address] Erythrocyte distribution wid th ratioOrdered By: Kanika Mike on 09-13-2024 Erythrocyte distribution width (RBC) [Ratio] 14.6 % 11.6-14.6 [facility] Erythrocyte distribution wid th standard deviationOrdered By: Kanika Mike on 09-13-2024 Erythrocyte distribution width (RBC) [Entitic vol] 43.4 fL 35.1-43.9 [facility] Erythrocyte distribution width (RBC) [Ratio] 43.4 fl 35.1-43.9 [facility] Erythrocyte sedimentation ra teOrdered By: Kanika Mike on 09-13-2024 ESR (Bld) [Velocity] 34 mm/h High 0-30 [facility] GFR/1.73 sq M.predicted ellie g non-blacks MDRD (S/P/Bld) [Vol rate/Area]Ordered By: Kanika Mike on 09-13-2024 Estimated GFR (MDRD) Non-Af Amer 91 >60 [facility] Comment on above: mL/min/1.73m2 CKD-EP I Creatinine Equation (2020) Glomerular filtration rate ( GFR) estimation/1.73 sq m using serum, plasma, or whole bOrdered By: Kanika Mike on 09-13-2024 GFR/1.73 sq M.predicted among non-blacks MDRD (S/P/Bld) [Vol rate/Area] 91 mL/min/{1.73_m2} >60 [facility] Comment on above: mL/min/1.73m2 CKD-EP I Creatinine Equation (2020) Hematocrit Auto (Bld) [Volum e fraction]Ordered By: Kanika Mike on 09-13-2024 Hematocrit (Bld) [Volume fraction] 35.5 % Low 37-47 [facility] Hemoglobin measurementOrdere d By: Kanika Mike on 09-13-2024 Hemoglobin (Bld) [Mass/Vol] 11.2 g/dL Low 12.0-15.0 [facility] Immature granulocytes/100 WB C Auto (Bld)Ordered By: Kanika Mike on 09-13-2024 Immature granulocytes/100 WBC (Bld) 0.300 % 0.0-0.9 [facility] Comment on above: IG% - Immature Granu locytes (promyelocytes, myelocytes and metamyelocytes) > 1% indicates that a LEFT SHIFT is Present. LDL calc ser/plasOrdered By: Kanika Mike on 09-13-2024 Cholesterol in LDL [Mass/Vol] 47 mg/dL [facility] Comment on above: Mrlxthmuhs=573-278 m g/dL & Higher Kvmy=270 mg/dL or greater LDL Cholesterol, Calculated 47 mg/dL [facility] Comment on above: Sfiggyiitt=429-793 m g/dL & Higher Fasg=467 mg/dL or greater Laboratory - Chemistry and C hemistry - challengeOrdered By: Kanika Mike on 09-13-2024 AST [Catalytic activity/Vol] 19 U/L <32 [facility] Lipid Profileon 09-13-2024 CHOL:HDL 1.96 Normal [facility] Comment on above: Performed By: #### L 506.0400, L500.4050, L100.0100, L501.6710, L500.4100, L101.9900 ####[facility] [address] [facility] [address] Cholesterol [Mass/Vol] 135 mg/dL Normal <=200 [facility] Comment on above: Result Comment: Chol esterol level, Desirable <200 mg/dL Borderline high cholesterol 200-239 mg/dL High cholesterol >=240 mg/dL Recommendations of the NCEP Adult Treatment Panel for the following risk-cutoff thresholds for the [place] population. Performed By: #### L 506.0400, L500.4050, L100.0100, L501.6710, L500.4100, L101.9900 ####[facility] [address] [place], [address] Cholesterol in HDL [Mass/Vol] 69 mg/dL Normal [facility] Comment on above: Result Comment: Yudi onal Cholesterol Education Program (NCEP) guidelines: <40 mg/dL: Low HDL-cholesterol (major risk factor for CHD) >= 60 mg/dL: High HDL-cholesterol (negative risk factor for CHD) HDL-cholesterol is affected by a number of factors, e.g. smoking, exercise, hormones, sex and age. Performed By: #### L 506.0400, L500.4050, L100.0100, L501.6710, L500.4100, L101.9900 ####[facility] [address] [place], [address] Cholesterol in LDL [Mass/Vol] 47 mg/dL Normal [facility] Comment on above: Result Comment: Bord ltdcku=689-834 mg/dL Higher Ibnn=746 mg/dL or greater Performed By: #### L 506.0400, L500.4050, L100.0100, L501.6710, L500.4100, L101.9900 ####[facility] [address] [place], [address] Cholesterol in VLDL [Mass/Vol] 19 mg/dL Normal 5-40 [facility] Comment on above: Performed By: #### L 506.0400, L500.4050, L100.0100, L501.6710, L500.4100, L101.9900 ####[facility] [address] [place], [address] Triglyceride [Mass/Vol] 93 mg/dL Normal [facility] Comment on above: Result Comment: The drugs N-Acetylcysteine and Metamizole may falsely depress this assay. Normal range: <150 mg/dL Borderline High: 150-199 mg/dL High: 200-499 mg/dL Very High: >500 mg/dL Performed By: #### L 506.0400, L500.4050, L100.0100, L501.6710, L500.4100, L101.9900 ####[facility] [address] [place], [address] Lymphocytes Auto (Unsp spec) [#/Vol]Ordered By: Kanika Mike on 09-13-2024 Lymphocytes (Bld) [#/Vol] 1.51 10*3/uL 0.83-4.51 [facility] Lymphocytes/100 WBC Auto (Un sp spec)Ordered By: Kanika Mike on 09-13-2024 Lymphocytes/100 WBC (Bld) 24.2 % 19-41 [facility] MCV (mean corpuscular volume ) determinationOrdered By: Kanika Mike on 09-13-2024 MCV (RBC) [Entitic vol] 82.9 fL 81-99 [facility] Mean corpuscular hemoglobin (MCH) determinationOrdered By: Kanika Mike on 09-13-2024 MCH (RBC) [Entitic mass] 26.2 pg Low 27.0-32.0 [facility] Mean corpuscular hemoglobin concentration (MCHC) determinationOrdered By: Kanika Mike on 09-13-2024 MCHC (RBC) [Mass/Vol] 31.5 g/dL Low 32-36 [facility] Mean platelet volume determi nationOrdered By: Kanika Mike on 09-13-2024 Platelet mean volume (Bld) [Entitic vol] 11.6 fL 6.2-12.0 [facility] Monocyte percentageOrdered B y: Kanika Mike on 09-13-2024 Monocytes/100 WBC (Bld) 9.4 % 0-10 [facility] Neutrophil percentageOrdered By: Kanika Mike on 09-13-2024 Neutrophils/100 WBC (Bld) 63.7 % 47-70 [facility] Nucleated red blood cell per centageOrdered By: Kanika Mike on 09-13-2024 Nucleated RBC/100 WBC (Bld) [Ratio] 0 % 0-5 [facility] Platelet countOrdered By: Evelia Mike on 09-13-2024 Platelets (Bld) [#/Vol] 184 10*3/uL 150-450 [facility] Potassium (Unsp spec) [Mass/ Vol]Ordered By: Kanika Mike on 09-13-2024 Potassium [Moles/Vol] 3.6 mmol/L 3.3-5.1 [facility] Potassium measurement (mass/ volume)Ordered By: Kanika Mike on 09-13-2024 Potassium (Unsp spec) [Mass/Vol] 3.6 mmol/L 3.3-5.1 [facility] RBC Auto (Bld) [#/Vol]Ordere d By: Kanika Mike on 09-13-2024 RBC (Bld) [#/Vol] 4.28 10*6/uL 4.2-5.4 [facility] Screening total cholesterol/ high density lipoprotein (HDL) cholesterol ratioOrdered By: Kanika Mike on 09-13-2024 Cholesterol.total/Choles terol in HDL [Mass ratio] 1.96 {ratio} [facility] Serum creatinine measurement (mass/volume)Ordered By: Kanika Mike on 09-13-2024 Creatinine [Mass/Vol] 0.69 mg/dL Low 0.70-1.20 [facility] Serum globulin measurementOr dered By: Kanika Mike on 09-13-2024 Globulin (S) [Mass/Vol] 2.9 g/dL 2.2-4.2 [facility] Serum glucose measurement (m ass/volume)Ordered By: Kanika Mike on 09-13-2024 Glucose [Mass/Vol] 99 mg/dL 70-99 [facility] Serum or plasma C reactive p rotein measurement (mass/volume)Ordered By: Kanika Mike on 09-13-2024 CRP [Mass/Vol] mg/L 0.0-3.0 [facility] Serum or plasma alanine fish otransferase (ALT) measurementOrdered By: Kanika Mike on 09-13-2024 ALT [Catalytic activity/Vol] 15 U/L <35 [facility] Serum or plasma albumin huma urement (mass/volume)Ordered By: Kanika Mike on 09-13-2024 Albumin [Mass/Vol] 4.0 g/dL 3.4-4.8 [facility] Serum or plasma albumin/glob ulin mass ratioOrdered By: Kanika Mike on 09-13-2024 Albumin/Globulin [Mass ratio] 1.4 {ratio} 0.9-2.4 [facility] Serum or plasma alkaline lisa sphatase measurementOrdered By: Kanika Mike on 09-13-2024 ALP [Catalytic activity/Vol] 150 U/L High 35-104 [facility] Serum or plasma calcium huma urement (mass/volume)Ordered By: Kanika Mike on 03-20-2025 Calcium [Mass/Vol] 9.3 mg/dL 7.6-11.0 [facility] Serum or plasma cholesterol in HDL measurement (mass/volume)Ordered By: Kanika Mike on 09-13-2024 Cholesterol in HDL [Mass/Vol] 69 mg/dL >40 [facility] Comment on above: National Cholesterol Education Program (NCEP) guidelines:<40 mg/dL: Low HDL-cholesterol (major risk factor for CHD)>= 60 mg/dL: High HDL-cholesterol (negative risk factor for CHD)HDL-cholesterol is affected by a number of factors, e.g. smoking, exercise, hormones, sex and age. Serum or plasma cholesterol measurement (mass/volume)Ordered By: Kanika Mike on 09-13-2024 Cholesterol [Mass/Vol] 135 mg/dL <201 [facility] Comment on above: Cholesterol level, D esirable <200 mg/dLBorderline high cholesterol 200-239 mg/dLHigh cholesterol >=240 mg/dLRecommendations of the NCEP Adult Treatment Panel for the following risk-cutoff thresholds for the [place] population. Serum or plasma urea nitroge n measurement (mass/volume)Ordered By: Kanika Mike on 09-13-2024 Urea nitrogen [Mass/Vol] 12 mg/dL 4-19 [facility] Sodium levelOrdered By: Kanika Mike on 09-13-2024 Sodium [Moles/Vol] 138 mmol/L 133-145 [facility] T4 Free Directon 09-13-2024 T4 FREE DIRECT 1.40 ng/dL Normal 0.76-1.46 [facility] Comment on above: Performed By: #### L 506.0400, L500.4050, L100.0100, L501.6710, L500.4100, L101.9900 ####[facility] [address] [place], [place], [address] T4 freeOrdered By: Kanika coffey on 09-13-2024 Free T4 [Mass/Vol] 1.40 ng/dL 0.76-1.46 [facility] Total proteinOrdered By: Marva Mike on 09-13-2024 Protein [Mass/Vol] 6.9 g/dL 5.9-8.4 [facility] Triglycerides measurementOrd ered By: Kanika Mike on 09-13-2024 Triglyceride [Mass/Vol] 93 mg/dL <199 [facility] Comment on above: The drugs N-Acetylcy steine and Metamizole may falsely depress this assay. Normal range: <150 mg/dLBorderline High: 150-199 mg/dLHigh: 200-499 mg/dLVery High: >500 mg/dL White blood cell (WBC) count Ordered By: Kanika Mike on 09-13-2024 WBC (Bld) [#/Vol] 6.3 10*3/uL 4.4-11.0 [facility] Orthopedic Visit Reporton Orthopedic Visit Report [facility] [address] [place] [address] OFFICE VISIT Date of Service: 08/13/24 MR#: [id number] Acct: [id number] Name: CHELSEY BELTRAN Hubert Rep #: [id number] : 1950 Provider: Dr. Raj crow DO Age/Sex: 74/F Location: [facility] Status: Signed Intake Vital Signs 04/24/24 12:20 [...] (hyperlipidemia) HTN (hypertension) Atherosclerotic heart disease of [place] coronary artery without angina pectoris Acute ST [...] Incision well-appro (more content not included)... Normal [facility] Discharge Instructionon Discharge Instruction [facility] Medical Records Department [address] [place] [address] Instructions for Home/Discharge Instructions 07/31/24 0755 MR#: [id number] Acct: [id number] Name: CHELSEY BELTRAN Rep #: [id number] : 1950 74 From: Raj Walker DO PCP: Dr. Kanika Mike, DO Status:REG [facility] Discharge Instructions Diet Discharge Diet: No restrictions [...] can be placed): Home, Self Care 07/31/24 3776 Raj Walker DO CC: Dr. Kanika Mike DO Signed Normal [facility] MR/POSTOP.Latisha 07-31-2024 MR/POSTOP.[facility] Medical Records Department [address] [place] [address] Anesthesia Postop Eval I 07/31/24 0759 MR#: [id number] Acct: [id number] Name: CHELSEY BELTRAN Rep #: [id number] : 1950 74 From: Rolf Luque CRNA PCP: Dr. Kanika Mike, DO Status:[facility] Y Race: C Location: [place] [address] Anesthesia: Postop Eval I Current Vital Signs [...] CRNA Cosigner Signature: Date CC: Signed Normal [facility] MR/[id number] 07-31-2024 [facility] Medical Records Department [address] [place] [address] Anesthesia Postop Eval II 07/31/24 1034 MR#: [id number] Acct: [id number] Name: CHELSEY BELTRAN Rep #: [id number] : 1950 74 From: Annabel Phillips PCP: Dr. Kanika Mike, DO Status:[facility] Y Race: C Location: [facility] [place] Anesthesia Postop Eval I Sum Postop Eval Completion status Anesthesia document: Postop Eval 1 completed: Yes Anesthesia Postop Eval I Summary Anesthesia Postop Eval I Summary: Anesthesia Postop Eval I: Assessment Summary Airway patent Yes 07/31/24 07:59 SENIOR MANAGING DIRECTOR.PKEL Spontaneous unlabored Yes 07/31/24 07:59 SENIOR MANAGING DIRECTOR.PKEL respirations Mental status nausea No 07/31/24 07:59 SENIOR MANAGING DIRECTOR.PKEL Vomiting No 07/31/24 07:59 SENIOR MANAGING DIRECTOR.PKEL Anesthesia Postop Eval I: Fluid Summary Crystalloid volume administer 20 07/31/24 07:59 SENIOR MANAGING DIRECTOR.PKEL (ml) Colloids volume administered ( ml) Blood Product volume administered (ml) Total IV fluid infused 20 07/31/24 07:59 SENIOR MANAGING DIRECTOR.PKEL Anesthesia Postop Eval I: Summary Notes Anesthesia Complication No 07/31/24 07:59 SENIOR MANAGING DIRECTOR.PKEL Anesthesia Complication Comment: Post-operative progress note Anesthesia: Postop Eval II Evaluation Mental status: Awake and Calm Pain Level: 0 nausea: No Vomiting: No 07/31/24 1034 Date Annabel Perez Signature: Date CC: Signed Normal [facility] Operative Reporton Operative Report [facility] Medical Records Department [address] [place] [address] Operative Report 07/31/24 0754 MR#: [id number] Acct: [id number] Name: CHELSEY BELTRAN Rep #: [id number] : 1950 74 From: Raj Walker DO PCP: Dr. 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 Kanika Mike DO Signed Normal [facility] 12 Lead EKGon 07-26-2024 12 Lead EKG [facility] Cardiovascular Services [address] [place] [address] 12 Lead EKG 07/26/24 1139 MR#: [id number] Acct: [id number] Name: CHELSEY BELTRAN Rep #: [id number] : 1950 74 From: Shakira Ochoa MD Attending Dr: Denton Morgan DO Status: DEP [facility] Ordering Dr: Denton Morgan DO Date: [...] bpm Confirmed by DON KAY, ANGELA ([id number]), film or videotape editor THERESE JACKSON ([id number]) on 07/26/2024 2:46:33 PM Referred By: Kanika Mike Confirmed By: ANGELA OCHOA MD 07/26/24 1446 Date Shakira Ochoa MD CC: Dr. Kanika Mike, ; Denton Morgan DO Signed Normal [facility] ERCP Biliary/Pancreason 06-29 ERCP Biliary/Pancreas [facility] Imaging Services [address] [place] [address] ERCP Biliary/Pancreas MR#: [id number] Acct: [id number] Name: CHELSEY BELTRAN Rep #: [id number] : 1950 F 74 From: Donis reyes MD PCP: Dr. Kanika Mike DO Status: [facility] Study: ERCP Biliary/Pancreas Date of Exam: 07/26/24 Exam# [id number] Ordering Dr: Denton Morgan DO EXAM: ERCP BILIARY/PANCREAS CLINICAL HISTORY: Removal of the biliary stent. COMPARISON: None. TECHNIQUE: ERCP was performed by the repairer helper. Fluoroscopic services was provided. FINDINGS: Contrast was injected. The biliary stent was removed. RAD/ERCP Biliary/Pancreas IMPRESSION: Removal of the biliary stent. Reading Location: [place] [address] CC: Dr. Kanika Mike DO; Denton Morgan DO Care Associate: Signed Normal [facility] ERCP Reporton 07-26-2024 ERCP Report [facility] Medical Records Department [address] [place] [address] ERCP Report MR#: [id number] Acct: [id number] Name: CHELSEY BELTRAN Rep #: [id number] : 1950 74 From: Denton Morgan DO PCP: Dr. Kanika Mike DO Status:REG [facility] Patient Name: Chelsey Beltran [...] hours 18 minutes 26 seconds Findings: The brake liner film was normal. The esophagus was successfully [...] and righ (more content not included)... Normal [facility] H Pylori (initial)on H Pylori (initial) -- ---- Patient Age/Sex Location Account Attending Physician ---- CHELSEY BELTRAN 74/F EN [id number] Denton Morgan DO ---- Specimen: [id number] Received: 07/27/24 Status: PORFIRIO Manjarrez Num: [id number] Spec Type: IMMUNO Subm Dr: Denton Morgan, PHYSICIAN INSTITUTION [place] [address] SPECIMEN INFORMATION: Tissue Source: Gastric polyp Clinical Info: Status post cholecystectomy, elevated liver enzymes, choledocholithiasis with acute cholecystitis with obstruction Specimen Number: [id number] block 1 CPT code: 86729 METHODOLOGY: Deparaffinized sections of prefer/formalin-fixed tissue or [...] developed and their performance characteristics determined by [facility]. They may not have been [...] Vince Main MD 07/27/24 1204 ---- Normal [facility] Comment on above: Performed By: #### P H.PYLORI #### [facility] [address] [place], [place], [address] MR/POSTOP.ANEon 07-26-2024 MR/POSTOP.MARIYA [facility] Medical Records Department [address] [place] [address] Anesthesia Postop Eval I 07/26/24 1323 MR#: [id number] Acct: [id number] Name: CHELSEY BELTRAN Huebrt Rep #: [id number] : 1950 74 From: Chip Cunningham PCP: Dr. Kanika Mike, DO Status:REG SDC Y Race: C Location: [place] [address] Anesthesia: Postop Eval I Current Vital Signs [...] Chip Perez Signature: Date CC: Signed Normal [facility] MR/MFOUNWIK2yd 07-26-2024 [facility] Medical Records Department [address] [place] [address] Anesthesia Postop Eval II 07/26/24 2328 MR#: [id number] Acct: [id number] Name: CHELSEY BELTRAN Rep #: [id number] : 1950 74 From: Estuardo Perez MD PCP: Dr. Kanika Mike, DO Status:[facility] Y Race: C Location: EN [...] Estuardo Perez Signature: Date CC: Signed Normal [facility] Special Stain Group IIon Special Stain Group II ----- ---- Patient Age/Sex Location Account Attending Physician ---- CHELSEY BELTRAN 74/F EN [id number] Denton Morgan DO ---- Specimen: [id number] Received: 07/26/24-1317 Status: PORFIRIO Manjarrez Num: [id number] Spec Type: Fluid Subm Dr: DO JAGDEEP [...] including cell block. Mr 07/26/2024 TC:5 CPT: 05596,04929 Signed (signature on file) Dr. Vince Main MD 07/27/24 1101 ---- Normal [facility] Comment on above: Performed By: #### P SSII ####[facility] [address] [place], [address] Surgery Specimen Level Jose 07-26-2024 Surgery Specimen Level IV ---- Patient Age/Sex Location Account Attending Physician ---- CHELSEY BELTRAN 74/F ELIZABETH [id number] Denton Morgan DO ---- Specimen: [id number] Received: 07/26/24 Status: PORFIRIO Manjarrez Num: [id number] Spec Type: EGD BIOPSY Subm Dr: Denton [...] 2 contains one piece. mr 07/26/2024 TC:5 CPT:23677 ---- Patient Age/Sex Location Account Attending Physician ---- CHELSEY BELTRAN 74/F EN [id number] Denton Morgan DO ---- Signed (signature on file) Dr. Vince Main MD 07/27/24 1109 ---- Normal [facility] Comment on above: Performed By: #### P SUIV #### [facility] [address] [place], [place], [address] MR/Anupama 07-19-2024 MR/KAYLAN [facility] Medical Records Department [address] [place] [address] PAT - Anesthesia 07/19/242017 MR#: [id number] Acct: [id number] Name: CHELSEY BELTRAN Hubert Rep #: [id number] : 1950 74 From: Estuardo Perez MD PCP: Dr. 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 Hx Hospitalization Yes: 03/202407/19/24 14:49 Any Problems [...] take am of surgery PONV PONV - 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: PONV - 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 Female Yes 07/19/24 14:49 HX of Motion [...] 04/24/24 12:20 Respiratory Assessment Respiratory Assessment - 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: Respiratory Tract Infection Hx - 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 Hx Respiratory Tract Infection No 07/19/24 14:49 STOP Sleep Apnea STOP Sleep Apnea - 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: STOP Sleep Apnea - 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 Hx Hypertension Yes: controlled with med 07/19/24 [...] Tobacco Use History Tobacco Use History - 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: Tobacco Use History - 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 Tobacco Use Smoking Status Never smoker 07/19/24 14:49 Hx Tobacco Use No 07/19/24 14:49 Years Smoking Packs Smoked per Day Smoking Cessation Date was within the last 15 years Hx Smoking Cessation Date Hx Smoking Cessation Counseling Hematologic Medial History Hematologic Hx - 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: Hematologic Medical Hx - 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 paraprofessional Hx of Blood Transfusion No 07/19/24 14:49 [...] confused, unrespo /Reproduction History /Reproductive History - 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: /Reproductive Hx- 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 Normal [facility] MR/PAT.ANE [facility] Medical Records Department [address] [place] [address] PAT - Anesthesia 07/19/242012 MR#: [id number] Acct: [id number] Name: CHELSEY BELTRAN Rep #: [id number] : 1950 74 From: Estuardo Perez MD PCP: Dr. 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 Hx Hospitalization Yes: 03/202407/19/24 15:03 Any Problems [...] take am of surgery PONV PONV - 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: PONV - 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 Female Yes 07/19/24 15:03 HX of Motion [...] 04/24/24 12:20 Respiratory Assessment Respiratory Assessment - 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: Respiratory Tract Infection Hx - 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 Hx Respiratory Tract Infection No 07/19/24 15:03 STOP Sleep Apnea STOP Sleep Apnea - 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: STOP Sleep Apnea - 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 Hx Hypertension Yes: controlled with med 07/19/24 [...] Tobacco Use History Tobacco Use History - 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: Tobacco Use History - 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 Tobacco Use Smoking Status Never smoker 07/19/24 15:03 Hx Tobacco Use No 07/19/24 15:03 Years Smoking Packs Smoked per Day Smoking Cessation Date was within the last 15 years Hx Smoking Cessation Date Hx Smoking Cessation Counseling Hematologic Medial History Hematologic Hx - 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: 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 Normal [facility] MR/PAT.ANE [facility] Medical Records Department [address] [place] [address] PAT - Anesthesia 07/19/242011 MR#: [id number] Acct: [id number] Name: CHELSEY BELTRAN Rep #: [id number] : 1950 74 From: Estuardo Perez MD PCP: Dr. 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 Hx Hospitalization Yes: 03/202407/19/24 15:03 Any Problems [...] take am of surgery PONV PONV - 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: PONV - 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 Female Yes 07/19/24 15:03 HX of Motion [...] 04/24/24 12:20 Respiratory Assessment Respiratory Assessment - 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: Respiratory Tract Infection Hx - 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 Hx Respiratory Tract Infection No 07/19/24 15:03 STOP Sleep Apnea STOP Sleep Apnea - 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: STOP Sleep Apnea - 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 Hx Hypertension Yes: controlled with med 07/19/24 [...] Tobacco Use History Tobacco Use History - 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: Tobacco Use History - 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 Tobacco Use Smoking Status Never smoker 07/19/24 15:03 Hx Tobacco Use No 07/19/24 15:03 Years Smoking Packs Smoked per Day Smoking Cessation Date was within the last 15 years Hx Smoking Cessation Date Hx Smoking Cessation Counseling Hematologic Medial History Hematologic Hx - 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: 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 Normal [facility] MR/PAT.ANE [facility] Medical Records Department [address] [place] [address] PAT - Anesthesia 07/19/241947 MR#: [id number] Acct: [id number] Name: CHELSEY BELTRAN Rep #: [id number] : 1950 74 From: Estuardo Perez MD PCP: Dr. 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 Hx Hospitalization Yes: 03/202407/19/24 15:03 Any Problems [...] take am of surgery PONV PONV - 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: PONV - 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 Female Yes 07/19/24 15:03 HX of Motion [...] 04/24/24 12:20 Respiratory Assessment Respiratory Assessment - 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: Respiratory Tract Infection Hx - 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 Hx Respiratory Tract Infection No 07/19/24 15:03 STOP Sleep Apnea STOP Sleep Apnea - 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: STOP Sleep Apnea - 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 Hx Hypertension Yes: controlled with med 07/19/24 [...] Tobacco Use History Tobacco Use History - 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: Tobacco Use History - 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 Tobacco Use Smoking Status Never smoker 07/19/24 15:03 Hx Tobacco Use No 07/19/24 15:03 Years Smoking Packs Smoked per Day Smoking Cessation Date was within the last 15 years Hx Smoking Cessation Date Hx Smoking Cessation Counseling Hematologic Medial History Hematologic Hx - 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: 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 Normal [facility] Orthopedic Visit Reporton Orthopedic Visit Report [facility] [address] [place] [address] [address] [place] [address] OFFICE VISIT Date of Service: 07/04/24 MR#: [id number] Acct: [id number] Name: CHELSEY BELTRAN Rep #: [id number] : 1950 Provider: Dr. Raj crow DO Age/Sex: 73/F Location: [facility] Status: Signed Intake Vital Signs 04/24/24 12:20 [...] artery disease) COVID-19 ( 06/2021) History of VT (myocardial infarction) History of coronary artery disease Essential hypertension Monoclonal gammopathy of unknown significance (MGUS) Monoclonal gammopathy Temporal arteritis Osteoarthritis of left shoulder Asthma HLD (hyperlipidemia) HTN (hypertension) Atherosclerotic heart disease of [place] coronary artery without angina pectoris Acute ST [...] she patel (more content not included)... Normal [facility] Bilirubin directOrdered By: Layla Coronado on 05-28-2024 Bilirubin.direct [Mass/Vol] 0.19 mg/dL 0.00-0.30 [facility] Bilirubin, totalOrdered By: Layla Coronado on 05-28-2024 Bilirubin [Mass/Vol] 0.60 mg/dL 0.20-1.00 [facility] Comment on above: For patients on eltr ombopag therapy, use of Dimension [place] TBIL is not recommended. Gastroenterology Visit Repor ton 05-28-2024 Gastroenterology Visit Report [facility] Gastroenterology [address] [place] [address] OFFICE VISIT Date of Service: 05/28/24 MR#: [id number] Acct: [id number] Name: CHELSEY BELTRAN Rep #: [id number] : 1950 Provider: GORDY connor Age/Sex: 73/F Location: [facility] Status: Signed Intake Vital Signs 04/17/24 02:19 04/24/24 12:20 05/28/24 10:16 Height 5 ft 1 in 5 ft 1 in Weight: 170 lb 4 oz BP 98/64 Respiration 18 Pulse 65 Pulse Oximetry (%) 96 Oxygen Delivery Method room air Intake Visit Reasons: Hospital FU Chief Complaint: post cholecystectomy 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 [facility] Medical History (Updated 05/28/24 @ 10:44 by Layla Coronado, COURT LIAISON-C) Wears glasses Post-menopausal Thyroid disease Rheumatoid arthritis Ambulates with cane Polymyalgia rheumatica High cholesterol Giant cell arteritis Ulcerative colitis Non-smoker History of atrial fibrillation History of echocardiogram History of stress test Cardiology follow-up encounter Hypertension CAD (coronary artery disease) COVID-19 ( 06/2021) History of VT (myocardial infarction) History of coronary artery disease Essential hypertension Monoclonal gammopathy of unknown significance (MGUS) Monoclonal gammopathy Temporal arteritis Osteoarthritis of left shoulder Asthma HLD (hyperlipidemia) HTN (hypertension) Atherosclerotic heart disease of [place] coronary artery without angina pectoris Acute ST [...] - impro (more content not included)... Normal [facility] - Chemistry and C hemistry - challengeOrdered By: Layla Coronado on 05-28-2024 AST [Catalytic activity/Vol] 17 U/L 15-37 [facility] Liver Profileon 05-28-2024 Albumin [Mass/Vol] 3.1 g/dL Low 3.2-5.0 [facility] Comment on above: Performed By: #### L 500.3400 ####[facility] [address] [place], [address] ALK P 114 U/L Normal 45-117 [facility] Comment on above: Performed By: #### L 500.3400 ####[facility] [address] [place], [address] ALT [Catalytic activity/Vol] 19 U/L Normal 13-56 [facility] Comment on above: Performed By: #### L 500.3400 ####[facility] [address] [place], [address] AST [Catalytic activity/Vol] 17 U/L Normal 15-37 [facility] Comment on above: Performed By: #### L 500.3400 ####[facility] [address] [place], [address] Bilirubin [Mass/Vol] 0.60 mg/dL Normal 0.20-1.00 [facility] Comment on above: Result Comment: For patients on eltrombopag therapy, use of Dimension [place] TBIL is not recommended. Performed By: #### L 500.3400 ####[facility] [address] [place], [address] Bilirubin.direct [Mass/Vol] 0.19 mg/dL Normal 0.00-0.30 [facility] Comment on above: Performed By: #### L 500.3400 ####[facility] [address] [place], [address] Globulin (S) [Mass/Vol] 3.4 g/dL Normal 2.2-4.2 [facility] Comment on above: Performed By: #### L 500.3400 ####[facility] [address] [place], [place], [address] T PROT 6.5 g/dL Normal 6.4-8.2 [facility] Comment on above: Performed By: #### L 500.3400 ####[facility] [address] [place], [place], [address] Serum globulin measurementOr dered By: Layla Coronado on 05-28-2024 Globulin (S) [Mass/Vol] 3.4 g/dL 2.2-4.2 [facility] Serum or plasma alanine fish otransferase (ALT) measurementOrdered By: Layla Coronado on 05-28-2024 ALT [Catalytic activity/Vol] 19 U/L 13-56 [facility] Serum or plasma albumin huma urement (mass/volume)Ordered By: Layla Coronado on 05-28-2024 Albumin [Mass/Vol] 3.1 g/dL Low 3.2-5.0 [facility] Serum or plasma alkaline lisa sphatase measurementOrdered By: Layla Coronado on 05-28-2024 ALP [Catalytic activity/Vol] 114 U/L 45-117 [facility] Total proteinOrdered By: Maribell Coronado on 05-28-2024 Protein [Mass/Vol] 6.5 g/dL 6.4-8.2 [facility] Surgery Visit Reporton 05-09 Surgery Visit Report [facility] [address] [place] [address] OFFICE VISIT Date of Service: 05/09/24 MR#: [id number] Acct: [id number] Name: CHELSEY BELTRAN Rep #: [id number] : 1950 Provider: ROSY corcoran Age/Sex: 73/F Location: [facility] Status: Signed Intake Vital Signs 04/24/24 [...] Global Post Op Diagnoses S/P cholecystectomy Z90.49 [facility] Medical History (Updated 04/26/24 @ 00:01 by Doni Powers) Wears glasses Post-menopausal Thyroid disease Rheumatoid arthritis Ambulates with cane Polymyalgia rheumatica High cholesterol Giant cell arteritis Ulcerative colitis Non-smoker History of atrial fibrillation History of echocardiogram History of stress test Cardiology follow-up encounter Hypertension CAD (coronary artery disease) COVID-19 ( 06/2021) History of VT (myocardial infarction) History of coronary artery disease Essential hypertension Monoclonal gammopathy of unknown significance (MGUS) Monoclonal gammopathy Temporal arteritis Osteoarthritis of left shoulder Asthma HLD (hyperlipidemia) HTN (hypertension) Atherosclerotic heart disease of [place] coronary artery without angina pectoris Acute ST [...] History (Reviewed (more content not included)... Normal [facility] Cholangiogram/ O R,Initialon 04-24-2024 Cholangiogram/ O R,Initial [facility] Imaging Services [address] [place], [place] [address] Cholangiogram/ O R,Initial MR#: [id number] Acct: [id number] Name: CHELSEY BELTRAN Rep #: [id number] : 1950 F 73 From: Nathan Brito PCP: Dr. Kanika Mike DO Status: [facility] Study: Cholangiogram/ O R,Initial Date of Exam: 04/24 Exam# [id number] Ordering Dr: Opal Whitehead [place] [id number] INDICATION: LAP ROXI EXAMINATION/TECHNIQUE: Cine intraoperative views [...] Kanika Mike DO; Dr. Opal Whitehead MD Care Associate: Signed Normal [facility] Discharge Instructionon 03-28 Discharge Instruction [facility] Medical Records Department [address] [place] [address] Instructions for Home/Discharge Instructions 04/24/24 1358 MR#: [id number] Acct: [id number] Name: CHELSEY BELTRAN Rep #: [id number] : 1950 73 From: Opal Whitehead MD PCP: Dr. Kanika Mike, DO Status:REG [facility] Discharge Instructions Diet Discharge [...] 5 PM and on the weekends call [phone] with any concerns. Test Results: Test results [...] MD CC: Dr. Kanika Mike DO Signed [facility] MR/POSTOP.[facility] 04-24-2024 MR/POSTOP.[facility] Medical Records Department [address] [place] [address] Anesthesia Postop Eval I 04/24/24 1412 MR#: [id number] Acct: [id number] Name: OCTAVIOCHELSEY THOMSON Hubert Rep #: [id number] : 1950 73 From: Luiza Rivas CRNA PCP: Dr. Kanika Mike DO Status:REG SDC Y Race: C Location: [place] [address] Anesthesia: Postop Eval I Current Vital Signs [...] completed: Yes 04/24/24 1413 Date Luiza Rivas SENIOR MANAGING DIRECTOR Chris Signature: Date CC: Signed Normal [facility] MR/PNOBTLFS6wa 04-24-2024 MR/POSTOPAN2 [facility] Medical Records Department [address] [place] [address] Anesthesia Postop Eval II 04/24/24 1444 MR#: [id number] Acct: [id number] Name: CHELSEY BELTRAN Rep #: [id number] : 1950 73 From: Maurilio Calvo MD PCP: Dr. Kanika Mike, DO Status:REG SDC Y Race: C Location: [place] [address] Anesthesia Postop Eval I Sum Postop Eval Completion status Anesthesia document: Postop Eval 1 completed: Yes Anesthesia Postop Eval I Summary Anesthesia Postop Eval I Summary: Anesthesia Postop Eval I: Assessment Summary Airway patent Yes 04/24/24 14:13 SENIOR MANAGING DIRECTOR.SCHR Spontaneous unlabored Yes 04/24/24 14:13 SENIOR MANAGING DIRECTOR.SCHR respirations Mental status Awake,Calm 04/24/24 14:13 SENIOR MANAGING DIRECTOR.SCHR nausea No 04/24/24 14:13 SENIOR MANAGING DIRECTOR.SCHR Vomiting No 04/24/24 14:13 SENIOR MANAGING DIRECTOR.SCHR Anesthesia Postop Eval I: Fluid Summary Crystalloid volume administer 400 04/24/24 14:13 SENIOR MANAGING DIRECTOR.SCHR (ml) Colloids volume administered ( ml) Blood Product volume administered (ml) Total IV fluid infused 400 04/24/24 14:13 SENIOR MANAGING DIRECTOR.SCHR Anesthesia Postop Eval I: Summary Notes Anesthesia Complication No 04/24/24 14:13 SENIOR MANAGING DIRECTOR.SCHR Anesthesia Complication Comment: Post-operative progress note Anesthesia: Postop Eval II Evaluation Mental status: Awake Pain Level: 0 nausea: No Vomiting: No 04/24/24 1444 Date Maurilio Perez Signature: Date CC: Signed Normal [facility] Operative Reporton 4 Operative Report [facility] Medical Records Department [address] [place] [address] Operative Report 04/24/24 1355 MR#: [id number] Acct: [id number] Name: CHELSEY BELTRAN Rep #: [id number] : 1950 73 From: Opal Whitehead MD PCP: Dr. Kanika Mike DO Status:[facility] Location: [place] [address] Operative Report (Standard) Operative Information Surgery/Procedure Performed: [...] 12 mm trocar was closed with a veltqx-dy-zzzjt 0 Vicryl suture. The skin was closed with sutures of 4-0 Monocryl and Steri-Strips. The patient was extubated. The patient tolerated procedure well and was taken to the postanesthesia care unit in stable condition. 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 Kanika Mike DO; Dr. Opal Whitehead MD Signed Normal [facility] Surgery Specimen Level IIIon 04-24-2024 Surgery Specimen Level III ---- Patient Age/Sex Location Account Attending Physician ---- CHELSEY BELTRAN 73/F [facility] [place] [id number] Dr. Opal Whitehead MD ---- Specimen: [id number] Received: 04/25/24 Status: PORFIRIO Josseline Num: [id number] Spec Type: GEOVANNA Seaman Dr: Dr. Opal [...] Increased amount of subserosal fat is noted. Fruit Or Nut Grower sections from the gallbladder and the cystic duct are submitted in one cassette. / SJ:mr 04/25/2024 TC:2 CPT: 07768 ---- Patient Age/Sex Location Account Attending Physician ---- CHELSEY BELTRAN 73/F [facility] [place] [id number] Dr. Opal Whitehead MD ---- Signed (signature on file) Dr. Vince Main MD 04/26/24 1412 ---- Normal [facility] Comment on above: Performed By: #### P SUIII #### [facility] Laboratory [facility] [place], [address] Absolute lymphocyte countOrd ered By: Kanika Mike on 09-06-2023 Lymphocytes Auto (Unsp spec) [#/Vol] 1.69 10*3/uL 0.83-4.51 [facility] Albumin Elph [Mass/Vol]Order ed By: Kanika Mike on 09-06-2023 Albumin [Mass/Vol] 3.6 g/dL 2.9-4.4 [facility] Automated lymphocyte count a s percentage of total leukocytesOrdered By: Kanika Mike on 09-06-2023 Lymphocytes/100 WBC Auto (Unsp spec) 22.8 % 19-41 [facility] Basophil percentageOrdered B y: Kanika Mike on 09-06-2023 Basophils/100 WBC (Bld) 0.8 % 0-1 [facility] Bilirubin [Mass/Vol] 0.70 mg/dL 0.20-1.00 [facility] Comment on above: For patients on eltr ombopag therapy, use of Dim[place] TBIL is not recommended. Chloride [Moles/Vol] 106 mmol/L 98-107 [facility] Cholesterol [Mass/Vol] 141 mg/dL <200 [facility] Comment on above: <200 mg/dL Desirable 200-240 mg/dL Borderline >240 mg/dL High Risk Eosinophils/100 WBC (Bld) 2.0 % 0-5 [facility] Glucose [Mass/Vol] 94 mg/dL 74-106 [facility] Hemoglobin (Bld) [Mass/Vol] 10.8 g/dL 12.0-15.0 [facility] Monocytes/100 WBC (Bld) 8.5 % 0-10 [facility] Neutrophils (Bld) [#/Vol] 4.9 10*3/uL 2.0-7.7 [facility] Neutrophils/100 WBC (Bld) 65.6 % 47-70 [facility] Potassium [Moles/Vol] 4.1 mmol/L 3.5-5.1 [facility] Protein [Mass/Vol] 6.8 g/dL 6.4-8.2 [facility] Sodium [Moles/Vol] 139 mmol/L 136-145 [facility] Triglyceride [Mass/Vol] 92 mg/dL <199 [facility] Comment on above: The drugs N-Acetylcy steine and Metamizole may falsely depress this assay.Serum Triglycerides Reference Interval Normal <150 mg/dL Borderline high 150 - 199 mg/dL High 200 - 499 mg/dL Very High > or = 500 mg/dL WBC (Bld) [#/Vol] 7.4 10*3/uL 4.4-11.0 [facility] Determination of erythrocyte mean corpuscular volume (MCV)Ordered By: Kanika Mike on 09-06-2023 MCV (RBC) [Entitic vol] 86.5 fL 81-99 [facility] Erythrocyte distribution wid th ratioOrdered By: Kanika Mike on 09-06-2023 Erythrocyte distribution width (RBC) [Ratio] 14.2 % 11.6-14.6 [facility] Erythrocyte distribution wid th standard deviationOrdered By: Kanika Mike on 09-06-2023 Erythrocyte distribution width (RBC) [Entitic vol] 44.6 fL 35.1-43.9 [facility] Erythrocyte sedimentation ra teOrdered By: Kanika Mike on 09-06-2023 ESR (Bld) [Velocity] 11 mm/h 0-30 [facility] Hematocrit Auto (Bld) [Volum e fraction]Ordered By: Kanika Mike on 09-06-2023 Hematocrit (Bld) [Volume fraction] 35.8 % 37-47 [facility] Immature granulocytes/100 WB C Auto (Bld)Ordered By: Kanika Mike on 09-06-2023 Immature granulocytes/100 WBC (Bld) 0.300 % 0.0-0.9 [facility] Comment on above: IG% - Immature Granu locytes (promyelocytes, myelocytes and metamyelocytes) > 1% indicates that a LEFT SHIFT is Present. Laboratory - Chemistry and C hemistry - challengeOrdered By: Kanika Mike on 09-06-2023 Albumin/Globulin [Mass ratio] 1.0 {ratio} 0.9-2.4 [facility] ALP [Catalytic activity/Vol] 101 U/L 45-117 [facility] ALT [Catalytic activity/Vol] 25 U/L 13-56 [facility] Cholesterol in HDL [Mass/Vol] 74 mg/dL >40 [facility] Comment on above: The drugs N-Acetylcy steine and Metamizole may falsely depress this assay. Reference Range HDL <40 mg/dL Low HDL Cholesterol HDL >or= 60 mg/dL High HDL Cholesterol Cholesterol in LDL [Mass/Vol] 49 mg/dL 0-130 [facility] CO2 [Moles/Vol] 26.0 mmol/L 21.0-32.0 [facility] Cobalamin (Vitamin B12) [Mass/Vol] 258 pg/mL 211-911 [facility] Globulin (S) [Mass/Vol] 3.4 g/dL 2.2-4.2 [facility] Urea nitrogen/Creatinine [Mass ratio] 23.5 mg/mg 10-20 [facility] Laboratory - Hematology and Cell countsOrdered By: Kanika Mike on 09-06-2023 MCH (RBC) [Entitic mass] 26.1 pg 27.0-32.0 [facility] MCHC (RBC) [Mass/Vol] 30.2 g/dL 32-36 [facility] Nucleated RBC/100 WBC (Bld) [Ratio] 0 % 0-5 [facility] Platelet mean volume (Bld) [Entitic vol] 10.8 fL 6.2-12.0 [facility] Platelets (Bld) [#/Vol] 203 10*3/uL 150-450 [facility] No Panel InformationOrdered By: Kanika Mike on 09-06-2023 Addendum Document Comment . [facility] Comment on above: The SPE pattern appe ars unremarkable. Evidence ofmonoclonal protein is not apparent.Performed at: [facility] [id number] Director: Corky Damon PhD, Phone: [phone] Qirxs-0-Ujismgvam 0.3 g/dL 0.0-0.4 [facility] Kjyfo-5-Zsbdlkmhe 0.7 g/dL 0.4-1.0 [facility] C-Reactive Protein Extended Range < 2.90 mg/L 0.0-3.0 [facility] Comment on above: C-Reactive Protein ( CRP) provides useful information for thediagnosis, therapy and monitoring of inflammatory processesand associated diseases. For the evaluation of Relative Riskfor Cardiovascular Disease, a High Sensitivity CRP (HSCRP)should be ordered. Estimated GFR (MDRD) Amer 109 mL/min >60 [facility] Comment on above: GFR Calc Estimated GFR (MDRD) Non-Af Amer 90 mL/min >60 [facility] Comment on above: Non- GFR Calc Gamma Globulins 0.9 g/dL 0.4-1.8 [facility] Vitamin D 25-Hydroxy 38.4 ng/mL [facility] Comment on above: Vitamin D 25(OH) Sta tus Range Deficiency <20 ng/mL (50nmol/L) Insufficiency 20 - 30 ng/mL (50 - 75 nmol/L) Sufficiency 30 - 100 ng/mL (75 - 250 nmol/L) Toxicity >100 ng/mL (>250 nmol/L) VLDL Cholesterol 18 mg/dL 5-40 [facility] Protein Fractions Elph [Inte rp]Ordered By: Kanika Mike on 09-06-2023 Protein Fractions [Interp] Comment . [facility] Comment on above: Protein electrophore sis scan will follow via computer,mail, or education rep delivery. RBC Auto (Bld) [#/Vol]Ordere d By: Kanika Mike on 09-06-2023 RBC (Bld) [#/Vol] 4.14 10*6/uL 4.2-5.4 [facility] Serum albumin to globulin ra khoa by protein electrophoresisOrdered By: Kanika Mike on 09-06-2023 Albumin/Globulin Elph [Mass ratio] 1.4 0.7-1.7 [facility] Serum globulin measurement ( mass/volume)Ordered By: Kanika Mike on 09-06-2023 Globulin (S) [Mass/Vol] 2.6 g/dL 2.2-3.9 [facility] Serum or plasma beta globuli n measurement by electrophoresis (mass/volume)Ordered By: Kanika Mike on 09-06-2023 Beta globulin Elph [Mass/Vol] 0.8 g/dL 0.7-1.3 [facility] Serum or plasma calcium huma urement (mass/volume)Ordered By: Kanika Mike on 09-06-2023 Calcium [Mass/Vol] 9.0 mg/dL 8.5-10.1 [facility] Serum or plasma creatinine m easurement (mass/volume)Ordered By: Kanika Mike on 09-06-2023 Creatinine [Mass/Vol] 0.68 mg/dL 0.55-1.02 [facility] Comment on above: The validity of the calculated GFR & GFRAA in patients over 70 years has not been determined. Clinical correlation is essential. Serum or plasma protein mono clonal measurement by electrophoresis (mass/volume)Ordered By: Kanika Mike on 09-06-2023 Protein.monoclonal Elph [Mass/Vol] Not Observed g/dL Not Observed [facility] Serum or plasma thyroid stim ulating hormone (TSH) measurement (units/volume)Ordered By: Kanika Mike on 09-06-2023 TSH Qn 2.83 uIU/mL 0.358-3.74 [facility] Serum or plasma urea nitroge n measurement (mass/volume)Ordered By: Kanika Mike on 09-06-2023 Urea nitrogen [Mass/Vol] 16 mg/dL 7-18 [facility] Thin prep Papanicolaou smear with manual screeningOrdered By: Kanika Mike on 09-06-2023 Thin prep Papanicolaou smear with manual screening 3.4 g/dL 3.2-5.0 [facility] Thin prep Papanicolaou smear with manual screening 18 U/L 15-37 [facility] Thin prep Papanicolaou smear with manual screening 7 5-15 [facility] Total protein bloodOrdered B y: Kanika Mike on 09-06-2023 Protein [Mass/Vol] 6.2 g/dL 6.0-8.5 [facility] Whole blood hemoglobin A1c/t otal hemoglobin ratio (mass fraction)Ordered By: Kanika Royman on 09-06-2023 HbA1c (Bld) [Mass fraction] 5.5 % 3.8-5.6 [facility] Comment on above: Normal < 5.7 % Predi abetic 5.7 - 6.4 % Diabetic >or= 6.5 % Please note range changes. Absolute lymphocyte countOrd ered By: ED PROVIDER on 08-11-2022 Lymphocytes Auto (Unsp spec) [#/Vol] 0.93 10*3/uL 0.83-4.51 [facility] Basophil percentageOrdered B y: ED PROVIDER on 08-11-2022 Basophils/100 WBC (Bld) 0.3 % 0-1 [facility] Chloride [Moles/Vol] 94 mmol/L 98-107 [facility] Eosinophils/100 WBC (Bld) 1.3 % 0-5 [facility] Glucose [Mass/Vol] 93 mg/dL 74-106 [facility] Neutrophils (Bld) [#/Vol] 2.4 10*3/uL 2.0-7.7 [facility] Neutrophils/100 WBC (Bld) 61.0 % 47-70 [facility] Potassium [Moles/Vol] 2.8 mmol/L 3.5-5.1 [facility] Sodium [Moles/Vol] 137 mmol/L 136-145 [facility] WBC (Bld) [#/Vol] 3.9 10*3/uL 4.4-11.0 [facility] Blood erythrocytes count (nu mber/volume)Ordered By: ED PROVIDER on 08-11-2022 RBC (Bld) [#/Vol] 4.53 10*6/uL 4.2-5.4 [facility] Blood hemoglobin measurement (mass/volume)Ordered By: ED PROVIDER on 08-11-2022 Hemoglobin (Bld) [Mass/Vol] 11.7 g/dL 12.0-15.0 [facility] Blood lymphocytes/100 leukoc ytesOrdered By: ED PROVIDER on 08-11-2022 Lymphocytes/100 WBC (Bld) 23.7 % 19-41 [facility] Blood monocytes/100 leukocyt esOrdered By: ED PROVIDER on 08-11-2022 Monocytes/100 WBC (Bld) 13.2 % 0-10 [facility] Blood platelet mean volumeOr dered By: ED PROVIDER on 08-11-2022 Platelet mean volume (Bld) [Entitic vol] 9.6 fL 6.2-12.0 [facility] Determination of erythrocyte mean corpuscular volume (MCV)Ordered By: ED PROVIDER on 08-11-2022 MCV (RBC) [Entitic vol] 81.9 fL 81-99 [facility] Hematocrit Auto (Bld) [Volum e fraction]Ordered By: ED PROVIDER on 08-11-2022 Hematocrit (Bld) [Volume fraction] 37.1 % 37-47 [facility] Influenza virus A and B and SARS-CoV-2 (COVID-19) Ag panel - Upper respiratory specimOrdered By: Dr. Infante on 08-11-2022 SARS-CoV-2 & FLU Antigen (Rapid) SARS-CoV-2 (COVID 19) [facility] Laboratory - Chemistry and C hemistry - challengeOrdered By: ED PROVIDER on 08-11-2022 CO2 [Moles/Vol] 24.0 mmol/L 21.0-32.0 [facility] Urea nitrogen/Creatinine [Mass ratio] 8.2 mg/mg 10-20 [facility] Laboratory - Hematology and Cell countsOrdered By: ED PROVIDER on 08-11-2022 Erythrocyte distribution width (RBC) [Entitic vol] 41.0 fL 35.1-43.9 [facility] Erythrocyte distribution width (RBC) [Ratio] 13.7 % 11.6-14.6 [facility] Immature granulocytes/100 WBC (Bld) 0.500 % 0.0-0.9 [facility] Comment on above: IG% - Immature Granu locytes (promyelocytes, myelocytes and metamyelocytes) > 1% indicates that a LEFT SHIFT is Present. MCH (RBC) [Entitic mass] 25.8 pg 27.0-32.0 [facility] Nucleated RBC/100 WBC (Bld) [Ratio] 0 % 0-5 [facility] MCHC Auto (RBC) [Mass/Vol]Or dered By: ED PROVIDER on 08-11-2022 MCHC (RBC) [Mass/Vol] 31.5 g/dL 32-36 [facility] No Panel InformationOrdered By: ED PROVIDER on 08-11-2022 Estimated Creatinine Clearance Calc 36.53 ml/min [facility] Estimated GFR (MDRD) Amer 101 mL/min >60 [facility] Comment on above: GFR Calc Estimated GFR (MDRD) Non-Af Amer 83 mL/min >60 [facility] Comment on above: Non- GFR Calc Platelets bldOrdered By: ED PROVIDER on 08-11-2022 Platelets (Bld) [#/Vol] 193 10*3/uL 150-450 [facility] Serum or plasma calcium huma urement (mass/volume)Ordered By: ED PROVIDER on 08-11-2022 Calcium [Mass/Vol] 9.0 mg/dL 8.5-10.1 [facility] Serum or plasma creatinine m easurement (mass/volume)Ordered By: ED PROVIDER on 08-11-2022 Creatinine [Mass/Vol] 0.73 mg/dL 0.55-1.02 [facility] Comment on above: The validity of the calculated GFR & GFRAA in patients over 70 years has not been determined. Clinical correlation is essential. Serum or plasma urea nitroge n measurement (mass/volume)Ordered By: ED PROVIDER on 08-11-2022 Urea nitrogen [Mass/Vol] 6 mg/dL 7-18 [facility] Thin prep Papanicolaou smear with manual screeningOrdered By: ED PROVIDER on 08-11-2022 Thin prep Papanicolaou smear with manual screening 19 5-15 [facility] Basophil percentageon 2021 Cholesterol [Mass/Vol] 123 mg/dL <200 [facility] Work Phone: Comment on above: <200 mg/dL Desirable 200-240 mg/dL Borderline >240 mg/dL High Risk Triglyceride [Mass/Vol] 72 mg/dL <199 [facility] Work Phone: Comment on above: The drugs N-Acetylcy steine and Metamizole may falsely depress this assay.Serum Triglycerides Reference Interval Normal <150 mg/dL Borderline high 150 - 199 mg/dL High 200 - 499 mg/dL Very High > or = 500 mg/dL Serum or plasma cholesterol in HDL measurement (mass/volume)on 04-05-2022 Cholesterol in HDL [Mass/Vol] 78 mg/dL >40 [facility] Work Phone: Comment on above: The drugs N-Acetylcy steine and Metamizole may falsely depress this assay. Reference Range HDL <40 mg/dL Low HDL Cholesterol HDL >or= 60 mg/dL High HDL Cholesterol Serum or plasma cholesterol in VLDL measurement (mass/volume)on 04-05-2022 Cholesterol in VLDL [Mass/Vol] 14 mg/dL 5-40 [facility] Work Phone: Serum or plasma low density lipoprotein (LDL) cholesterol measurement (mass/volume)on 04-05-2022 Cholesterol in LDL [Mass/Vol] 31 mg/dL 0-130 [facility] Work Phone: Absolute lymphocyte counton 03-22-2022 Lymphocytes Auto (Unsp spec) [#/Vol] 2.50 10*3/uL 0.83-4.51 [facility] Work Phone: Basophil percentageon 2021 Basophils/100 WBC (Bld) 0.4 % 0-1 [facility] Work Phone: Bilirubin [Mass/Vol] 0.50 mg/dL 0.20-1.00 [facility] Work Phone: Comment on above: For patients on eltr ombopag therapy, use of Dimension [place] TBIL is not recommended. Chloride [Moles/Vol] 106 mmol/L 98-107 [facility] Work Phone: Eosinophils/100 WBC (Bld) 1.3 % 0-5 [facility] Work Phone: [phone] Glucose [Mass/Vol] 100 mg/dL 74-106 [facility] Work Phone: [phone] Comment on above: Fasting Glucose resu lt from 100 to 125 mg/dL suggests IMPAIRED HOMEOSTASIS per A.D.A. criteria. Neutrophils (Bld) [#/Vol] 8.7 10*3/uL 2.0-7.7 [facility] Work Phone: [phone] Neutrophils/100 WBC (Bld) 68.8 % 47-70 [facility] Work Phone: [phone] Potassium [Moles/Vol] 3.5 mmol/L 3.5-5.1 [facility] Work Phone: Protein [Mass/Vol] 6.4 g/dL 6.4-8.2 [facility] Work Phone: Sodium [Moles/Vol] 142 mmol/L 136-145 [facility] Work Phone: [phone] WBC (Bld) [#/Vol] 12.7 10*3/uL 4.4-11.0 [facility] Work Phone: Blood erythrocytes count (nu mber/volume)on 03-22-2022 RBC (Bld) [#/Vol] 4.18 10*6/uL 4.2-5.4 [facility] Work Phone: Blood hemoglobin measurement (mass/volume)on 03-22-2022 Hemoglobin (Bld) [Mass/Vol] 11.1 g/dL 12.0-15.0 [facility] Work Phone: [phone] Blood lymphocytes/100 leukoc yteson 03-22-2022 Lymphocytes/100 WBC (Bld) 19.7 % 19-41 [facility] Work Phone: [phone] Blood monocytes/100 leukocyt eson 03-22-2022 Monocytes/100 WBC (Bld) 9.1 % 0-10 [facility] Work Phone: Blood platelet mean volumeon 03-22-2022 Platelet mean volume (Bld) [Entitic vol] 10.3 fL 6.2-12.0 [facility] Work Phone: Determination of erythrocyte mean corpuscular volume (MCV)on 03-22-2022 MCV (RBC) [Entitic vol] 86.1 fL 81-99 [facility] Work Phone: Erythrocyte sedimentation ra ebony 03-22-2022 ESR (Bld) [Velocity] 22 mm/h 0-30 [facility]: Hematocrit Auto (Bld) [Volum e fraction]on 03-22-2022 Hematocrit (Bld) [Volume fraction] 36.0 % 37-47 [facility] Work Phone: Laboratory - Chemistry and C hemistry - challengeon 03-22-2022 ALP [Catalytic activity/Vol] 85 U/L 45-117 [facility] Work Phone: ALT [Catalytic activity/Vol] 20 U/L 13-56 [facility] Work Phone: CO2 [Moles/Vol] 30.0 mmol/L 21.0-32.0 [facility] Work Phone: Globulin (S) [Mass/Vol] 3.3 g/dL 2.2-4.2 [facility] Work Phone: Urea nitrogen/Creatinine [Mass ratio] 22.2 mg/mg 10-20 [facility] Work Phone: Laboratory - Hematology and Cell countson 03-22-2022 Erythrocyte distribution width (RBC) [Entitic vol] 45.4 fL 35.1-43.9 [facility] Work Phone: Erythrocyte distribution width (RBC) [Ratio] 14.6 % 11.6-14.6 [facility] Work Phone: Immature granulocytes/100 WBC (Bld) 0.700 % 0.0-0.9 [facility] Work Phone: Comment on above: IG% - Immature Granu locytes (promyelocytes, myelocytes and metamyelocytes) > 1% indicates that a LEFT SHIFT is Present. MCH (RBC) [Entitic mass] 26.6 pg 27.0-32.0 [facility] Work Phone: Nucleated RBC/100 WBC (Bld) [Ratio] 0 % 0-5 [facility] Work Phone: MCHC Auto (RBC) [Mass/Vol]on 03-22-2022 MCHC (RBC) [Mass/Vol] 30.8 g/dL 32-36 [facility] Work Phone: No Panel Informationon 03-22 Estimated GFR (MDRD) Amer 84 mL/min >60 [facility] Work Phone: Comment on above: GFR Calc Estimated GFR (MDRD) Non-Af Amer 70 mL/min >60 [facility] Work Phone: Comment on above: Non- GFR Calc Thyroid Stimulating Hormone (TSH) 3.00 uIU/mL 0.358-3.74 [facility] Work Phone: Platelets bldon 03-22-2022 Platelets (Bld) [#/Vol] 249 10*3/uL 150-450 [facility] Work Phone: Serum or plasma albumin huma urement (mass/volume)on 03-22-2022 Albumin [Mass/Vol] 3.1 g/dL 3.2-5.0 [facility] Work Phone: Serum or plasma albumin/glob ulin mass ratioon 03-22-2022 Albumin/Globulin [Mass ratio] 0.9 {ratio} 0.9-2.4 [facility] Work Phone: Serum or plasma calcium huma urement (mass/volume)on 03-22-2022 Calcium [Mass/Vol] 9.2 mg/dL 8.5-10.1 [facility] Work Phone: Serum or plasma creatinine m easurement (mass/volume)on 03-22-2022 Creatinine [Mass/Vol] 0.85 mg/dL 0.55-1.02 [facility] Work Phone: Comment on above: The validity of the calculated GFR & GFRAA in patients over 70 years has not been determined. Clinical correlation is essential. Serum or plasma urea nitroge n measurement (mass/volume)on 03-22-2022 Urea nitrogen [Mass/Vol] 19 mg/dL 7-18 [facility] Work Phone: Thin prep Papanicolaou smear with manual screeningon 03-22-2022 Thin prep Papanicolaou smear with manual screening 10 U/L 15-37 [facility] Work Phone: Thin prep Papanicolaou smear with manual screening 6 5-15 [facility] Work Phone: BMPon 11-20-2021 Anion gap [Moles/Vol] 5 mmol/L Normal 5-16 [facility] Comment on above: Order Comment: Campu s: M Performed By: #### L [id number], [id number] #### [facility] [address] [place] [id number] Calcium [Mass/Vol] 9.7 mg/dL Normal 8.5-10.5 [facility] Comment on above: Order Comment: Campu s: M Result Comment: NOTE NEW NORMAL RANGE DUE TO REAGENT CHANGE Performed By: #### L [id number], [id number] #### [facility] [address] [place] [address] Chloride [Moles/Vol] 107 mmol/L Normal 98-107 [facility] Comment on above: Order Comment: Campu s: M Performed By: #### L 500.50083, [id number] #### [facility] [address] [place] [address] CO2 [Moles/Vol] 26.0 mmol/L Normal 21-32 [facility] Comment on above: Order Comment: Campu s: M Performed By: #### L [id number], [id number] #### [facility] [address] [place] [address] Creatinine [Mass/Vol] 0.66 mg/dL Normal 0.510- 0.95 0 [facility] Comment on above: Order Comment: Campu s: M Result Comment: Emma ents receiving either N-Acetylcysteine (NAC) or Metamizole prior to venipuncture, may have falsely depressed results. Performed By: #### L [id number], L500.84014 #### [facility] [address] [place] [address] Glucose [Mass/Vol] 112 mg/dL High 70-100 [facility] Comment on above: Order Comment: Campu s: M Result Comment: 70-1 00- Normal Fasting; 100-125 Impaired Fasting; greater than 126 on more than one result- Diabetes. ADA guidelines. Results may be falsely elevated after the administration of Sulfapyridine. Results may be falsely depressed after the administration of Sulfasalazine. Performed By: #### L 500.80546, L500.87799 #### [facility] [address] [place] [address] Potassium [Moles/Vol] 3.5 mmol/L Normal 3.5-5.1 [facility] Comment on above: Order Comment: Campu s: M Performed By: #### L 500.38158, L500.98024 #### [facility] [address] [place] [id number] Sodium [Moles/Vol] 138 mmol/L Normal 136-145 [facility] Comment on above: Order Comment: Campu s: M Performed By: #### L [id number], L500.19180 #### [facility] [address] [place], [place] [id number] Urea nitrogen [Mass/Vol] 18 mg/dL Normal 7-26 [facility] Comment on above: Order Comment: Campu s: M Performed By: #### L 500.59179, L500.79535 #### [facility] [address] [place] [address] Urea nitrogen/Creatinine [Mass ratio] 27 mg/mg High 15-24 [facility] Comment on above: Order Comment: Campu s: M Performed By: #### L 500.19900, L500.34134 #### [facility] [address] [place] [address] CBCon 11-20-2021 Erythrocyte distribution width (RBC) [Ratio] 15.5 % High 11-14.[address] [facility] Comment on above: Order Comment: Campu s: M Performed By: #### L [id number] #### [facility] [address] [place] [address] Hematocrit (Bld) [Volume fraction] 36.3 % Normal 35.0-47.0 [facility] Comment on above: Order Comment: Campu s: M Performed By: #### L [id number] #### [facility] [address] [place], [place] [id number] Hemoglobin (Bld) [Mass/Vol] 11.8 g/dL Normal 11.5-15.5 [facility] Comment on above: Order Comment: Campu s: M Performed By: #### L [id number] #### [facility] [address] [place], [place] [id number] MCHC (RBC) [Mass/Vol] 32.5 g/dL Normal 32.0-36.0 [facility] Comment on above: Order Comment: Campu s: M Performed By: #### L [id number] #### [facility] [address] [place], [place] [id number] MCV (RBC) [Entitic vol] 90.5 fL Normal 80.0-99.0 [facility] Comment on above: Order Comment: Campu s: M Performed By: #### L [id number] #### [facility] [address] [place] [address] Nucleated RBC/100 WBC (Bld) [Ratio] 0.0 % Normal Less than 1 [facility] Comment on above: Order Comment: Campu s: M Performed By: #### L [id number] #### [facility] [address] [place] [address] Platelet mean volume (Bld) [Entitic vol] 9.4 fL Normal 9.4-12.[address] [facility] Comment on above: Order Comment: Campu s: M Performed By: #### L [id number] #### [facility] [address] [place] [address] PLT 230 K/CU MM Normal 150-450 [facility] Comment on above: Order Comment: Campu s: M Performed By: #### L [id number] #### [facility] [address] [place] [address] RBC 4.01 M/CU MM Normal 3.90-5.[address] [facility] Comment on above: Order Comment: Campu s: M Performed By: #### L [id number] #### [facility] [address] [place] [address] WBC 14.6 K/CUMM High 4.5-11.0 [facility] Comment on above: Order Comment: Campu s: M Performed By: #### L [id number] #### [facility] [address] [place] [address] EKGon 11-20-2021 Electrocardiogram Procedure Date and Time: [...] By:Benito TORRES M.D.FACC Jeffrey DDandT: 11/20/21917 TDandT: [facility] PATIENT NAME: CHELSEY BELTRAN [address] [place] [address] Dr. Nunez MEDICAL REC #: [id number] [place] [address] ADMIT DATE: DISCHARGE DATE: ATTENDING PHY: Layla Holm MD ELECTROCARDIOGRAM REPORT CLB cc: [facility] PATIENT NAME: CHELSEY BELTRAN [address] [place] [address] Dr. Nunez MEDICAL REC #: [id number] [place] [address] ADMIT DATE: DISCHARGE DATE: ATTENDING PHY: Layla Holm MD ELECTROCARDIOGRAM REPORT Normal [facility] GFR ESTon 11-20-2021 IF AMER Greater than 60 Normal [facility] Comment on above: Order Comment: Sylvain s: M Performed By: #### L [id number], L500.32771 #### [facility] [address] [place] [address] IF non-AFR AMER Greater than 60 Normal [facility] Comment on above: Order Comment: Sanjayu s: M Performed By: #### L 500.46413, L500.87898 #### [facility] [address] [place] [address] PTon 11-20-2021 INR Coag (PPP) [Relative time] 1.01 {INR} Normal 0.9-1.1 [facility] Comment on above: Order Comment: Sylvain s: M Result Comment: Bob mmended PT INR therapeutic range for ad terminal makeup operator and prophylactic therapy is 2.0 - 3.0. For heart valve and shunt patients the range is 2.5 - 3.5. Performed By: #### L 300.48042 #### [facility] [address] [place] [address] PTS 11.0 SECONDS Normal 9.5-12.[address] [facility] Comment on above: Order Comment: Sylvain s: M Performed By: #### L 300.72587 #### [facility] [address] [place] [address] XR CHEST PA/APon 09-28-2021 XR CHEST PA/AP [...] on TueSep 28, 2021 3:44:04 PM EDT [facility] Comment on above: Order Comment: Injur y/Trauma or Illness?:Illness/Other How long have you had these symptoms (acute/chronic)?:Acute Reason for exam?:vomitting, near syncope History of cancer?:no Surgeries, chemotherapy, or radiation?:no Type of Exam?:Initial Additional signs and symptoms?:hx of afib Basophil percentageon 2021 Bilirubin [Mass/Vol] 0.70 mg/dL 0.20-1.00 [facility] Work Phone: Comment on above: For patients on eltr ombopag therapy, use of Dimension [place] TBIL is not recommended. Chloride [Moles/Vol] 105 mmol/L 98-107 [facility] Work Phone: Cholesterol [Mass/Vol] 141 mg/dL <200 [facility] Work Phone: Comment on above: <200 mg/dL Desirable 200-240 mg/dL Borderline >240 mg/dL High Risk Glucose [Mass/Vol] 104 mg/dL 74-106 [facility] Work Phone: Comment on above: Fasting Glucose resu lt from 100 to 125 mg/dL suggests IMPAIRED HOMEOSTASIS per A.D.A. criteria. Potassium [Moles/Vol] 3.7 mmol/L 3.5-5.1 [facility] Work Phone: Protein [Mass/Vol] 6.2 g/dL 6.4-8.2 [facility] Work Phone: Sodium [Moles/Vol] 138 mmol/L 136-145 [facility] Work Phone: Triglyceride [Mass/Vol] 84 mg/dL [facility] Work Phone: Comment on above: The drugs N-Acetylcy steine and Metamizole may falsely depress this assay.Serum Triglycerides Reference Interval Normal <150 mg/dL Borderline high 150 - 199 mg/dL High 200 - 499 mg/dL Very High > or = 500 mg/dL Direct bilirubinon 2 Bilirubin.direct [Mass/Vol] 0.17 mg/dL 0.00-0.30 [facility] Work Phone: Laboratory - Chemistry and C hemistry - challengeon 09-09-2021 ALP [Catalytic activity/Vol] 73 U/L 45-117 [facility] Work Phone: ALT [Catalytic activity/Vol] 34 U/L 13-56 [facility] Work Phone: CO2 [Moles/Vol] 27.0 mmol/L 21.0-32.0 [facility] Work Phone: Globulin (S) [Mass/Vol] 3.0 g/dL 2.2-4.2 [facility] Work Phone: Magnesium [Mass/Vol] 2.1 mg/dL 1.6-2.6 [facility] Work Phone: Urea nitrogen/Creatinine [Mass ratio] 30.5 mg/mg 10-20 [facility] Work Phone: No Panel Informationon 09-09 Estimated GFR (MDRD) Amer 97 mL/min >60 [facility] Work Phone: Comment on above: GFR Calc Estimated GFR (MDRD) Non-Af Amer 80 mL/min >60 [facility] Work Phone: Comment on above: Non- GFR Calc Serum or plasma albumin huma urement (mass/volume)on 09-09-2021 Albumin [Mass/Vol] 3.2 g/dL 3.2-5.0 [facility] Work Phone: Serum or plasma calcium huma urement (mass/volume)on 09-09-2021 Calcium [Mass/Vol] 9.0 mg/dL 8.5-10.1 [facility] Work Phone: Serum or plasma cholesterol in HDL measurement (mass/volume)on 09-09-2021 Cholesterol in HDL [Mass/Vol] 84 mg/dL [facility] Work Phone: Comment on above: The drugs N-Acetylcy steine and Metamizole may falsely depress this assay. Reference Range HDL <40 mg/dL Low HDL Cholesterol HDL >or= 60 mg/dL High HDL Cholesterol Serum or plasma cholesterol in VLDL measurement (mass/volume)on 09-09-2021 Cholesterol in VLDL [Mass/Vol] 17 mg/dL 5-40 [facility] Work Phone: Serum or plasma creatinine m easurement (mass/volume)on 09-09-2021 Creatinine [Mass/Vol] 0.76 mg/dL 0.55-1.02 [facility] Work Phone: Comment on above: The validity of the calculated GFR & GFRAA in patients over 70 years has not been determined. Clinical correlation is essential. Serum or plasma low density lipoprotein (LDL) cholesterol measurement (mass/volume)on 09-09-2021 Cholesterol in LDL [Mass/Vol] 40 mg/dL 0-130 [facility] Work Phone: Serum or plasma urea nitroge n measurement (mass/volume)on 09-09-2021 Urea nitrogen [Mass/Vol] 23 mg/dL 7-18 [facility] Work Phone: Thin prep Papanicolaou smear with manual screeningon 09-09-2021 Thin prep Papanicolaou smear with manual screening 11 U/L 15-37 [facility] Work Phone: Thin prep Papanicolaou smear with manual screening 6 5-15 [facility] Work Phone: Absolute lymphocyte counton 08-26-2021 Lymphocytes Auto (Unsp spec) [#/Vol] 2.09 10*3/uL 0.83-4.51 [facility] Work Phone: Basophil percentageon 2021 Basophils/100 WBC (Bld) 0.4 % 0-1 [facility] Work Phone: Chloride [Moles/Vol] 104 mmol/L 98-107 [facility] Work Phone: Eosinophils/100 WBC (Bld) 0.1 % 0-5 [facility] Work Phone: Glucose [Mass/Vol] 136 mg/dL 74-106 [facility] Work Phone: Comment on above: Fasting Glucose resu lt greater than or equal to 126 mg/dL suggests DIABETES MELLITUS per A.D.A. criteria. Neutrophils (Bld) [#/Vol] 11.1 10*3/uL 2.0-7.7 [facility] Work Phone: Neutrophils/100 WBC (Bld) 76.1 % 47-70 [facility] Work Phone: Potassium [Moles/Vol] 4.0 mmol/L 3.5-5.1 [facility] Work Phone: [phone] Sodium [Moles/Vol] 138 mmol/L 136-145 [facility] Work Phone: WBC (Bld) [#/Vol] 14.6 10*3/uL 4.4-11.0 [facility] Work Phone: Blood erythrocytes count (nu mber/volume)on 08-26-2021 RBC (Bld) [#/Vol] 4.52 10*6/uL 4.2-5.4 [facility] Work Phone: Blood hemoglobin measurement (mass/volume)on 08-26-2021 Hemoglobin (Bld) [Mass/Vol] 12.7 g/dL 12.0-15.0 [facility] Work Phone: Blood lymphocytes/100 leukoc yteson 08-26-2021 Lymphocytes/100 WBC (Bld) 14.3 % 19-41 [facility] Work Phone: Blood monocytes/100 leukocyt eson 08-26-2021 Monocytes/100 WBC (Bld) 6.1 % 0-10 [facility] Work Phone: Blood platelet mean volumeon 08-26-2021 Platelet mean volume (Bld) [Entitic vol] 9.8 fL 6.2-12.0 [facility] Work Phone: Determination of erythrocyte mean corpuscular volume (MCV)on 08-26-2021 MCV (RBC) [Entitic vol] 88.5 fL 81-99 [facility] Work Phone: Hematocrit Auto (Bld) [Volum e fraction]on 08-26-2021 Hematocrit (Bld) [Volume fraction] 40.0 % 37-47 [facility] Work Phone: Laboratory - Chemistry and C hemistry - challengeon 08-26-2021 CO2 [Moles/Vol] 28.0 mmol/L 21.0-32.0 [facility] Work Phone: Natriuretic peptide B (Bld) [Mass/Vol] 108.1 pg/mL 0-100 [facility] Work Phone: Urea nitrogen/Creatinine [Mass ratio] 27.3 mg/mg 10-20 [facility] Work Phone: Laboratory - Hematology and Cell countson 08-26-2021 Erythrocyte distribution width (RBC) [Entitic vol] 53.1 fL 35.1-43.9 [facility] Work Phone: Erythrocyte distribution width (RBC) [Ratio] 16.6 % 11.6-14.6 [facility] Work Phone: Immature granulocytes/100 WBC (Bld) 3.000 % 0.0-0.9 [facility] Work Phone: Comment on above: IG% - Immature Granu locytes (promyelocytes, myelocytes and metamyelocytes) > 1% indicates that a LEFT SHIFT is Present. MCH (RBC) [Entitic mass] 28.1 pg 27.0-32.0 [facility] Work Phone: Nucleated RBC/100 WBC (Bld) [Ratio] 0 % 0-5 [facility] Work Phone: MCHC Auto (RBC) [Mass/Vol]on 08-26-2021 MCHC (RBC) [Mass/Vol] 31.8 g/dL 32-36 [facility] Work Phone: No Panel Informationon 08-26 Estimated Creatinine Clearance Calc 37.06 ml/min [facility] Work Phone: Estimated GFR (MDRD) Amer 107 mL/min >60 [facility] Work Phone: Comment on above: GFR Calc Estimated GFR (MDRD) Non-Af Amer 88 mL/min >60 [facility] Work Phone: Comment on above: Non- GFR Calc Platelets bldon 08-26-2021 Platelets (Bld) [#/Vol] 221 10*3/uL 150-450 [facility] Work Phone: Serum or plasma calcium huma urement (mass/volume)on 08-26-2021 Calcium [Mass/Vol] 8.8 mg/dL 8.5-10.1 [facility] Work Phone: Serum or plasma creatinine m easurement (mass/volume)on 08-26-2021 Creatinine [Mass/Vol] 0.70 mg/dL 0.55-1.02 [facility] Work Phone: Comment on above: The validity of the calculated GFR & GFRAA in patients over 70 years has not been determined. Clinical correlation is essential. Serum or plasma urea nitroge n measurement (mass/volume)on 08-26-2021 Urea nitrogen [Mass/Vol] 19 mg/dL 7-18 [facility] Work Phone: Thin prep Papanicolaou smear with manual screeningon 08-26-2021 Thin prep Papanicolaou smear with manual screening 6 5-15 [facility] Work Phone: Absolute lymphocyte counton 08-16-2021 Lymphocytes Auto (Unsp spec) [#/Vol] 4.06 10*3/uL 0.83-4.51 [facility] Work Phone: Basophil percentageon 2021 Basophils/100 WBC (Bld) 0.3 % 0-1 [facility] Work Phone: Chloride [Moles/Vol] 108 mmol/L 98-107 [facility] Work Phone: Eosinophils/100 WBC (Bld) 0.6 % 0-5 [facility] Work Phone: Glucose [Mass/Vol] 95 mg/dL 74-106 [facility] Work Phone: Neutrophils (Bld) [#/Vol] 8.6 10*3/uL 2.0-7.7 [facility] Work Phone: Neutrophils/100 WBC (Bld) 61.3 % 47-70 [facility] Work Phone: Potassium [Moles/Vol] 3.4 mmol/L 3.5-5.1 [facility] Work Phone: Sodium [Moles/Vol] 140 mmol/L 136-145 [facility] Work Phone: WBC (Bld) [#/Vol] 14.1 10*3/uL 4.4-11.0 [facility] Work Phone: Blood erythrocytes count (nu mber/volume)on 08-16-2021 RBC (Bld) [#/Vol] 4.55 10*6/uL 4.2-5.4 [facility] Work Phone: Blood hemoglobin measurement (mass/volume)on 08-16-2021 Hemoglobin (Bld) [Mass/Vol] 12.7 g/dL 12.0-15.0 [facility] Work Phone: Blood lymphocytes/100 leukoc yteson 08-16-2021 Lymphocytes/100 WBC (Bld) 28.8 % 19-41 [facility] Work Phone: Blood manual differential co mment interpretation (narrative result)on 08-16-2021 Manual differential comment Dennys (Bld) [Interp] SCANNED [facility] Work Phone: Blood monocytes/100 leukocyt eson 08-16-2021 Monocytes/100 WBC (Bld) 7.3 % 0-10 [facility] Work Phone: Blood platelet mean volumeon 08-16-2021 Platelet mean volume (Bld) [Entitic vol] 10.0 fL 6.2-12.0 [facility] Work Phone: Determination of erythrocyte mean corpuscular volume (MCV)on 08-16-2021 MCV (RBC) [Entitic vol] 87.5 fL 81-99 [facility] Work Phone: Hematocrit Auto (Bld) [Volum e fraction]on 08-16-2021 Hematocrit (Bld) [Volume fraction] 39.8 % 37-47 [facility] Work Phone: Laboratory - Chemistry and C hemistry - challengeon 08-16-2021 CO2 [Moles/Vol] 27.0 mmol/L 21.0-32.0 [facility] Work Phone: Natriuretic peptide B (Bld) [Mass/Vol] 150.5 pg/mL 0-100 [facility] Work Phone: Urea nitrogen/Creatinine [Mass ratio] 28.2 mg/mg 10-20 [facility] Work Phone: Laboratory - Hematology and Cell countson 08-16-2021 Erythrocyte distribution width (RBC) [Entitic vol] 51.8 fL 35.1-43.9 [facility] Work Phone: Erythrocyte distribution width (RBC) [Ratio] 16.3 % 11.6-14.6 [facility] Work Phone: Immature granulocytes/100 WBC (Bld) 1.700 % 0.0-0.9 [facility] Work Phone: Comment on above: IG% - Immature Granu locytes (promyelocytes, myelocytes and metamyelocytes) > 1% indicates that a LEFT SHIFT is Present. MCH (RBC) [Entitic mass] 27.9 pg 27.0-32.0 [facility] Work Phone: Nucleated RBC/100 WBC (Bld) [Ratio] 0 % 0-5 [facility] Work Phone: MCHC Auto (RBC) [Mass/Vol]on 08-16-2021 MCHC (RBC) [Mass/Vol] 31.9 g/dL 32-36 [facility] Work Phone: No Panel Informationon 08-16 Estimated Creatinine Clearance Calc 37.06 ml/min [facility] Work Phone: Estimated GFR (MDRD) Amer 104 mL/min >60 [facility] Work Phone: Comment on above: GFR Calc Estimated GFR (MDRD) Non-Af Amer 86 mL/min >60 [facility] Work Phone: Comment on above: Non- GFR Calc Reactive Lymphocytes [facility] Work [facility]: Troponin I High Sensitivity 6 pg/mL 3.0-54.0 [facility] Work Phone: Comment on above: Please Note: New Kelly t Units and Gender Specific Reference Ranges. For more information see Policy Stat Procedure [place] High Sensitivity Troponin (TNIH) and attachments. Platelets bldon 08-16-2021 Platelets (Bld) [#/Vol] 205 10*3/uL 150-450 [facility] Work Phone: Serum or plasma calcium huma urement (mass/volume)on 08-16-2021 Calcium [Mass/Vol] 8.6 mg/dL 8.5-10.1 [facility] Work Phone: Serum or plasma creatinine m easurement (mass/volume)on 08-16-2021 Creatinine [Mass/Vol] 0.71 mg/dL 0.55-1.02 [facility] Work Phone: Comment on above: The validity of the calculated GFR & GFRAA in patients over 70 years has not been determined. Clinical correlation is essential. Serum or plasma urea nitroge n measurement (mass/volume)on 08-16-2021 Urea nitrogen [Mass/Vol] 20 mg/dL 7-18 [facility] Work Phone: Thin prep Papanicolaou smear with manual screeningon 08-16-2021 Thin prep Papanicolaou smear with manual screening 5 5-15 [facility] Work Phone: Absolute lymphocyte counton 08-10-2021 Lymphocytes Auto (Unsp spec) [#/Vol] 2.47 10*3/uL 0.83-4.51 [facility] Work Phone: Basophil percentageon 2021 Basophils/100 WBC (Bld) 0.2 % 0-1 [facility] Work Phone: Chloride [Moles/Vol] 107 mmol/L 98-107 [facility] Work Phone: [phone] Eosinophils/100 WBC (Bld) 0.6 % 0-5 [facility] Work Phone: Glucose [Mass/Vol] 110 mg/dL 74-106 [facility] Work Phone: Comment on above: Fasting Glucose resu lt from 100 to 125 mg/dL suggests IMPAIRED HOMEOSTASIS per A.D.A. criteria. Neutrophils (Bld) [#/Vol] 8.4 10*3/uL 2.0-7.7 [facility] Work Phone: Neutrophils/100 WBC (Bld) 69.3 % 47-70 [facility] Work Phone: Potassium [Moles/Vol] 4.1 mmol/L 3.5-5.1 [facility] Work Phone: [phone] Sodium [Moles/Vol] 139 mmol/L 136-145 [facility] Work Phone: WBC (Bld) [#/Vol] 12.1 10*3/uL 4.4-11.0 [facility] Work Phone: Blood erythrocytes count (nu mber/volume)on 08-10-2021 RBC (Bld) [#/Vol] 4.10 10*6/uL 4.2-5.4 [facility] Work Phone: Blood hemoglobin measurement (mass/volume)on 08-10-2021 Hemoglobin (Bld) [Mass/Vol] 11.5 g/dL 12.0-15.0 [facility] Work Phone: Blood lymphocytes/100 leukoc yteson 08-10-2021 Lymphocytes/100 WBC (Bld) 20.4 % 19-41 [facility] Work Phone: Blood monocytes/100 leukocyt eson 08-10-2021 Monocytes/100 WBC (Bld) 7.3 % 0-10 [facility] Work Phone: Blood platelet mean volumeon 08-10-2021 Platelet mean volume (Bld) [Entitic vol] 9.6 fL 6.2-12.0 [facility] Work Phone: Determination of erythrocyte mean corpuscular volume (MCV)on 08-10-2021 MCV (RBC) [Entitic vol] 89.0 fL 81-99 [facility] Work Phone: Hematocrit Auto (Bld) [Volum e fraction]on 08-10-2021 Hematocrit (Bld) [Volume fraction] 36.5 % 37-47 [facility] Work Phone: Laboratory - Chemistry and C hemistry - challengeon 08-10-2021 CO2 [Moles/Vol] 25.0 mmol/L 21.0-32.0 [facility] Work Phone: Urea nitrogen/Creatinine [Mass ratio] 39.0 mg/mg 10-20 [facility] Work Phone: Laboratory - Hematology and Cell countson 08-10-2021 Erythrocyte distribution width (RBC) [Entitic vol] 52.0 fL 35.1-43.9 [facility] Work Phone: Erythrocyte distribution width (RBC) [Ratio] 16.0 % 11.6-14.6 [facility] Work Phone: Immature granulocytes/100 WBC (Bld) 2.200 % 0.0-0.9 [facility] Work Phone: Comment on above: IG% - Immature Granu locytes (promyelocytes, myelocytes and metamyelocytes) > 1% indicates that a LEFT SHIFT is Present. MCH (RBC) [Entitic mass] 28.0 pg 27.0-32.0 [facility] Work Phone: Nucleated RBC/100 WBC (Bld) [Ratio] 0 % 0-5 [facility] Work Phone: MCHC Auto (RBC) [Mass/Vol]on 08-10-2021 MCHC (RBC) [Mass/Vol] 31.5 g/dL 32-36 [facility] Work Phone: No Panel Informationon 08-10 Estimated Creatinine Clearance Calc 37.06 ml/min [facility] Work Phone: Estimated GFR (MDRD) Amer 129 mL/min >60 [facility] Work Phone: Comment on above: GFR Calc Estimated GFR (MDRD) Non-Af Amer 107 mL/min >60 [facility] Work Phone: Comment on above: Non- GFR Calc Platelets bldon 08-10-2021 Platelets (Bld) [#/Vol] 168 10*3/uL 150-450 [facility] Work Phone: Serum or plasma calcium huma urement (mass/volume)on 08-10-2021 Calcium [Mass/Vol] 8.1 mg/dL 8.5-10.1 [facility] Work Phone: Serum or plasma creatinine m easurement (mass/volume)on 08-10-2021 Creatinine [Mass/Vol] 0.59 mg/dL 0.55-1.02 [facility] Work Phone: Comment on above: The validity of the calculated GFR & GFRAA in patients over 70 years has not been determined. Clinical correlation is essential. Serum or plasma urea nitroge n measurement (mass/volume)on 08-10-2021 Urea nitrogen [Mass/Vol] 23 mg/dL 7-18 [facility] Work Phone: Thin prep Papanicolaou smear with manual screeningon 08-10-2021 Thin prep Papanicolaou smear with manual screening 7 5-15 [facility] Work Phone: No Panel Informationon 08-08 Troponin I High Sensitivity 12 pg/mL 3.0-54.0 [facility] Work Phone: Comment on above: Please Note: New Kelly t Units and Gender Specific Reference Ranges. For more information see Policy Stat Procedure [place] High Sensitivity Troponin (TNIH) and attachments. Absolute lymphocyte counton 08-02-2021 Lymphocytes Auto (Unsp spec) [#/Vol] 1.42 10*3/uL 0.83-4.51 [facility] Work Phone: Basophil percentageon 2021 Basophils/100 WBC (Bld) 0.2 % 0-1 [facility] Work Phone: Chloride [Moles/Vol] 106 mmol/L 98-107 [facility] Work Phone: Eosinophils/100 WBC (Bld) 0.3 % 0-5 [facility] Work Phone: Glucose [Mass/Vol] 142 mg/dL 74-106 [facility] Work Phone: Comment on above: Fasting Glucose resu lt greater than or equal to 126 mg/dL suggests DIABETES MELLITUS per A.D.A. criteria. Neutrophils (Bld) [#/Vol] 10.6 10*3/uL 2.0-7.7 [facility] Work Phone: Neutrophils/100 WBC (Bld) 80.4 % 47-70 [facility] Work Phone: Potassium [Moles/Vol] 3.8 mmol/L 3.5-5.1 [facility] Work Phone: Comment on above: Moderate Hemolysis, Result may be falsely increased. Sodium [Moles/Vol] 137 mmol/L 136-145 [facility] Work Phone: WBC (Bld) [#/Vol] 13.2 10*3/uL 4.4-11.0 [facility] Work Phone: Blood erythrocytes count (nu mber/volume)on 08-02-2021 RBC (Bld) [#/Vol] 4.57 10*6/uL 4.2-5.4 [facility] Work Phone: Blood hemoglobin measurement (mass/volume)on 08-02-2021 Hemoglobin (Bld) [Mass/Vol] 13.2 g/dL 12.0-15.0 [facility] Work Phone: Blood lymphocytes/100 leukoc yteson 08-02-2021 Lymphocytes/100 WBC (Bld) 10.8 % 19-41 [facility] Work Phone: Blood monocytes/100 leukocyt eson 08-02-2021 Monocytes/100 WBC (Bld) 7.3 % 0-10 [facility] Work Phone: Blood platelet mean volumeon 08-02-2021 Platelet mean volume (Bld) [Entitic vol] 9.9 fL 6.2-12.0 [facility] Work Phone: Determination of erythrocyte mean corpuscular volume (MCV)on 08-02-2021 MCV (RBC) [Entitic vol] 85.1 fL 81-99 [facility] Work Phone: Hematocrit Auto (Bld) [Volum e fraction]on 08-02-2021 Hematocrit (Bld) [Volume fraction] 38.9 % 37-47 [facility] Work Phone: Laboratory - Chemistry and C hemistry - challengeon 08-02-2021 CO2 [Moles/Vol] 27.0 mmol/L 21.0-32.0 [facility] Work Phone: Urea nitrogen/Creatinine [Mass ratio] 28.8 mg/mg 10-20 [facility] Work Phone: Laboratory - Hematology and Cell countson 08-02-2021 Erythrocyte distribution width (RBC) [Entitic vol] 48.5 fL 35.1-43.9 [facility] Work Phone: Erythrocyte distribution width (RBC) [Ratio] 15.9 % 11.6-14.6 [facility] Work Phone: Immature granulocytes/100 WBC (Bld) 1.000 % 0.0-0.9 [facility] Work Phone: Comment on above: IG% - Immature Granu locytes (promyelocytes, myelocytes and metamyelocytes) > 1% indicates that a LEFT SHIFT is Present. MCH (RBC) [Entitic mass] 28.9 pg 27.0-32.0 [facility] Work Phone: Nucleated RBC/100 WBC (Bld) [Ratio] 0 % 0-5 [facility] Work Phone: MCHC Auto (RBC) [Mass/Vol]on 08-02-2021 MCHC (RBC) [Mass/Vol] 33.9 g/dL 32-36 [facility] Work Phone: No Panel Informationon 08-02 Estimated Creatinine Clearance Calc 71.31 ml/min [facility] Work Phone: Estimated GFR (MDRD) Amer 101 mL/min >60 [facility] Work Phone: Comment on above: GFR Calc Estimated GFR (MDRD) Non-Af Amer 84 mL/min >60 [facility] Work Phone: Comment on above: Non- GFR Calc Thyroid Stimulating Hormone (TSH) 1.88 uIU/mL 0.358-3.74 [facility] Work Phone: Troponin I High Sensitivity 6 pg/mL 3.0-54.0 [facility] Work Phone: Comment on above: Please Note: New Kelly t Units and Gender Specific Reference Ranges. For more information see Policy Stat Procedure [place] High Sensitivity Troponin (TNIH) and attachments. Platelets bldon 08-02-2021 Platelets (Bld) [#/Vol] 244 10*3/uL 150-450 [facility] Work Phone: Serum or plasma calcium huma urement (mass/volume)on 08-02-2021 Calcium [Mass/Vol] 8.6 mg/dL 8.5-10.1 [facility] Work Phone: Serum or plasma creatinine m easurement (mass/volume)on 08-02-2021 Creatinine [Mass/Vol] 0.73 mg/dL 0.55-1.02 [facility] Work Phone: Comment on above: The validity of the calculated GFR & GFRAA in patients over 70 years has not been determined. Clinical correlation is essential. Serum or plasma urea nitroge n measurement (mass/volume)on 08-02-2021 Urea nitrogen [Mass/Vol] 21 mg/dL 7-18 [facility] Work Phone: Thin prep Papanicolaou smear with manual screeningon 08-02-2021 Thin prep Papanicolaou smear with manual screening 4 5-15 [facility] Work Phone: Absolute lymphocyte counton 06-30-2021 Lymphocytes Auto (Unsp spec) [#/Vol] 1.64 10*3/uL 0.83-4.51 [facility] Work Phone: Basophil percentageon 2021 Basophils/100 WBC (Bld) 0.4 % 0-1 [facility] Work Phone: Chloride [Moles/Vol] 106 mmol/L 98-107 [facility] Work Phone: Eosinophils/100 WBC (Bld) 0.7 % 0-5 [facility] Work Phone: Glucose [Mass/Vol] 124 mg/dL 74-106 [facility] Work Phone: Comment on above: Fasting Glucose resu lt from 100 to 125 mg/dL suggests IMPAIRED HOMEOSTASIS per A.D.A. criteria.Please note revised GLUCOSE reference range effective 2017. Neutrophils (Bld) [#/Vol] 5.8 10*3/uL 2.0-7.7 [facility] Work Phone: Neutrophils/100 WBC (Bld) 71.9 % 47-70 [facility] Work Phone: Potassium [Moles/Vol] 3.7 mmol/L 3.5-5.1 [facility] Work Phone: Sodium [Moles/Vol] 140 mmol/L 136-145 [facility] Work [facility]: WBC (Bld) [#/Vol] 8.1 10*3/uL 4.4-11.0 [facility] Work Phone: Blood erythrocytes count (nu mber/volume)on 06-30-2021 RBC (Bld) [#/Vol] 4.39 10*6/uL 4.2-5.4 [facility] Work Phone: Blood hemoglobin measurement (mass/volume)on 06-30-2021 Hemoglobin (Bld) [Mass/Vol] 11.7 g/dL 12.0-15.0 [facility] Work Phone: Blood lymphocytes/100 leukoc yteson 06-30-2021 Lymphocytes/100 WBC (Bld) 20.3 % 19-41 [facility] Work Phone: Blood monocytes/100 leukocyt eson 06-30-2021 Monocytes/100 WBC (Bld) 6.1 % 0-10 [facility] Work Phone: Blood platelet mean volumeon 06-30-2021 Platelet mean volume (Bld) [Entitic vol] 10.1 fL 6.2-12.0 [facility] Work Phone: Determination of erythrocyte mean corpuscular volume (MCV)on 06-30-2021 MCV (RBC) [Entitic vol] 84.7 fL 81-99 [facility] Work Phone: Erythrocyte sedimentation ra ebony 06-30-2021 ESR (Bld) [Velocity] 35 mm/h 0-30 [facility] Work Phone: Hematocrit Auto (Bld) [Volum e fraction]on 06-30-2021 Hematocrit (Bld) [Volume fraction] 37.2 % 37-47 [facility] Work Phone: Laboratory - Chemistry and C hemistry - challengeon 06-30-2021 CO2 [Moles/Vol] 28.0 mmol/L 21.0-32.0 [facility] Work Phone: Urea nitrogen/Creatinine [Mass ratio] 19.7 mg/mg 10-20 [facility] Work Phone: Laboratory - Hematology and Cell countson 06-30-2021 Erythrocyte distribution width (RBC) [Entitic vol] 45.3 fL 35.1-43.9 [facility] Work Phone: Erythrocyte distribution width (RBC) [Ratio] 14.7 % 11.6-14.6 [facility] Work Phone: Immature granulocytes/100 WBC (Bld) 0.600 % 0.0-0.9 [facility] Work Phone: Comment on above: IG% - Immature Granu locytes (promyelocytes, myelocytes and metamyelocytes) > 1% indicates that a LEFT SHIFT is Present. MCH (RBC) [Entitic mass] 26.7 pg 27.0-32.0 [facility] Work Phone: Nucleated RBC/100 WBC (Bld) [Ratio] 0 % 0-5 [facility] Work Phone: MCHC Auto (RBC) [Mass/Vol]on 06-30-2021 MCHC (RBC) [Mass/Vol] 31.5 g/dL 32-36 [facility] Work Phone: No Panel Informationon 06-30 Estimated Creatinine Clearance Calc 39.50 ml/min [facility] Work Phone: Estimated GFR (MDRD) Amer 114 mL/min >60 [facility] Work Phone: Comment on above: GFR Calc Estimated GFR (MDRD) Non-Af Amer 94 mL/min >60 [facility] Work Phone: Comment on above: Non- GFR Calc Platelets bldon 06-30-2021 Platelets (Bld) [#/Vol] 215 10*3/uL 150-450 [facility] Work Phone: Serum or plasma C reactive p rotein measurement (mass/volume)on 06-30-2021 CRP [Mass/Vol] 6.98 mg/L 0.0-3.0 [facility] Work Phone: Comment on above: C-Reactive Protein ( CRP) provides useful information for thediagnosis, therapy and monitoring of inflammatory processesand associated diseases. For the evaluation of Relative Riskfor Cardiovascular Disease, a High Sensitivity CRP (HSCRP)should be ordered. Serum or plasma calcium huma urement (mass/volume)on 06-30-2021 Calcium [Mass/Vol] 9.2 mg/dL 8.5-10.1 [facility] Work Phone: Serum or plasma creatinine m easurement (mass/volume)on 06-30-2021 Creatinine [Mass/Vol] 0.66 mg/dL 0.55-1.02 [facility] Work Phone: Comment on above: The validity of the calculated GFR & GFRAA in patients over 70 years has not been determined. Clinical correlation is essential. Serum or plasma urea nitroge n measurement (mass/volume)on 06-30-2021 Urea nitrogen [Mass/Vol] 13 mg/dL 7-18 [facility] Work Phone: Thin prep Papanicolaou smear with manual screeningon 06-30-2021 Thin prep Papanicolaou smear with manual screening 6 5-15 [facility] Work Phone: Juvenal 09-02-2020 MICKIN Telephone (OBGYWM) CHELSEY BELTRAN ([id number]) 1950 F Date Time Provider Department 09/02/20 [...] Rash Date Reviewed: 08/28/2020 Reviewed by: Brisa LenzRemote Broadcast Engineer) Aleksandr - Fully Assessed Reason for Visit: [...] by LAYLA SEWELL RN on 09/02/20 Normal [facility] Bact/Cand Vag Grm Ston 08-29 Bact/Cand Vag Grm St Sp. Request/Comment : - Swab Smear Result - BACTERIAL VAGINOSIS RESULT: Stain results consistent with normal vaginal jerrod. No Yeast observed Few Polymorphonuclear leukocytes Normal [facility] Comment on above: Performed By: #### B VCNSM #### [facility] [address] [address] CNOVon 08-28-2020 CNOV Office Visit (OBGYWM ) CHELSEY BELTRAN ([id number]) 1950 F Date Time Provider Department 08/28/20 1:30 PM BRISA YANEZ (INSPECTION CLERK) OBGYWM During your visit today, we recorded [...] external genitalia normal, normal Bartholin's glands, urethra, Blackgum's glands, no vulvar lesions, no cervical lesions, physiologic discharge present, normal appearing perineal body and perianal region, atrophy. Vulva and perineum with moderate erythema. No lesions or plaques. BIMANUAL: uterus normal size, shape and consistency, no adnexal masses and non-tender NEURO: alert and oriented x3,exam grossly non-focal ASSESSMENT/PLAN: 1. Vulvar dermatitis - ICD9: 692.9, ICD10: L30.9 - B (more content not included)... Normal [facility] Prot Electrophoresis Serumon 12-21-2018 Albumin [Mass/Vol] 3.4 g/dL Normal 2.9-4.4 [facility] Comment on above: Order Comment: nhc Performed at: [place] [address] Die Technician: Corky Damon PhD, Phone: [phone] Performed By: #### S PEP #### [facility] RESULTS Albumin/Globulin [Mass ratio] 1.2 {ratio} Normal 0.7-1.7 [facility] Comment on above: Order Comment: nhc Performed at: [place] [address] Die Technician: Corky Damon PhD, Phone: [phone] Performed By: #### S PEP #### [facility] RESULTS Mqstj-6-Feslsjoa 0.3 g/dL Normal 0.0-0.4 [facility] Comment on above: Order Comment: nhc Performed at: [place] [address] Die Technician: Corky Damon PhD, Phone: [phone] Performed By: #### S PEP #### [facility] RESULTS Jnuwz-3-Gagtnela 0.9 g/dL Normal 0.4-1.0 [facility] Comment on above: Order Comment: nhc Performed at: [place] [address] Die Technician: Corky Damon PhD, Phone: [phone] Performed By: #### S PEP #### [facility] RESULTS Beta Globulin 0.8 g/dL Normal 0.7-1.3 [facility] Comment on above: Order Comment: nhc Performed at: [place] [address] Die Technician: Corky Damon PhD, Phone: [phone] Performed By: #### S PEP #### [facility] RESULTS Gamma Globulin 0.8 g/dL Normal 0.4-1.8 [facility] Comment on above: Order Comment: nhc Performed at: [place] [address] Die Technician: Corky Damon PhD, Phone: [phone] Performed By: #### S PEP #### [facility] RESULTS Globulin (S) [Mass/Vol] 2.8 g/dL Normal 2.2-3.9 [facility] Comment on above: Order Comment: nhc Performed at: [facility] [place] [address] Die Technician: Corky Damon PhD, Phone: [phone] Performed By: #### S PEP #### [facility] RESULTS M-Thien Not Observed Normal Not Observed [facility] Comment on above: Order Comment: nhc Performed at: [place] [address] Die Technician: Corky Damon PhD, Phone: [phone] Performed By: #### S PEP #### [facility] RESULTS PDF . [facility] Comment on above: Order Comment: nhc Performed at: [place] [address] Die Technician: Corky Damon PhD, Phone: [phone] Performed By: #### S PEP #### [facility] RESULTS Please note: Comment [facility] Comment on above: Order Comment: nhc Performed at: [place] [address] Die Technician: Corky Damon PhD, Phone: [phone] Result Comment: Prot ein electrophoresis scan will follow via computer, mail, or education rep delivery. Performed By: #### S PEP #### [facility] RESULTS Protein [Mass/Vol] 6.2 g/dL Normal 6.0-8.5 [facility] Comment on above: Order Comment: nhc Performed at: [facility] [place] [address] Die Technician: Corky Damon PhD, Phone: [phone] Performed By: #### S PEP #### [facility] RESULTS C-Reactive Proteinon 019 CRP [Mass/Vol] mg/L Normal <=2.99 [facility] Comment on above: Order Comment: nhc Performed By: #### C ROSE CRPR #### [facility] [address] [place] [address] CBC with Diffon 12-19-2018 Basophils (Bld) [#/Vol] 0.0 x(10)3/cumm Normal 0.0-0.1 [facility] Comment on above: Order Comment: nhc Performed By: #### C BCDIFF #### [facility] [address] [place] [address]329 Basophils/100 WBC (Bld) 0.4 % Normal 0.0-1.0 [facility] Comment on above: Order Comment: nhc Performed By: #### C BCLAURENFF #### [facility] [address] [place] [address] 17725 Eosinophils (Bld) [#/Vol] 0.0 x(10)3/cumm Normal 0.0-0.4 [facility] Comment on above: Order Comment: nhc Performed By: #### C BCLAURENFF #### [facility] [address] [place] [address] 65358 Eosinophils/100 WBC (Bld) 0.2 % Normal 0.0-6.1 [facility] Comment on above: Order Comment: nhc Performed By: #### C BCDIFF #### [facility] [address] [place] [address] 42030 Erythrocyte distribution width (RBC) [Ratio] 17.0 % High 11.1-15.3 [facility] Comment on above: Order Comment: nhc Performed By: #### C BCDIFF #### [facility] [address] [place] [address] 45881 Hematocrit (Bld) [Volume fraction] 39.9 % Normal 34.6-45.0 [facility] Comment on above: Order Comment: nhc Performed By: #### C BCDIFF #### [facility] [address] [place] [address] 73752 Hemoglobin (Bld) [Mass/Vol] 13.0 g/dL Normal 11.5-15.5 [facility] Comment on above: Order Comment: nhc Performed By: #### C BCDIFF #### [facility] [address] [place] [address] 21252 Lymphocytes (Bld) [#/Vol] 1.4 x(10)3/cumm Normal 0.8-2.9 [facility] Comment on above: Order Comment: nhc Performed By: #### C BCDIFF #### [facility] [address] [place] [address] 32222 Lymphocytes/100 WBC (Bld) 11.9 % Low 12.2-42.6 [facility] Comment on above: Order Comment: nhc Performed By: #### C BCDIFF #### [facility] [address] [place] [address] 38354 MCH (RBC) [Entitic mass] 28.5 pg Normal 27.2-33.6 [facility] Comment on above: Order Comment: nhc Performed By: #### C BCDIFF #### [facility] [address] [place] [address] 28311 MCHC (RBC) [Mass/Vol] 32.7 g/dL Low 32.9-35.3 [facility] Comment on above: Order Comment: nhc Performed By: #### C BCDIFF #### [facility] [address] [place] [address] 81899 MCV (RBC) [Entitic vol] 87.2 fL Normal 81.3-96.7 [facility] Comment on above: Order Comment: nhc Performed By: #### C BCDIFF #### [facility] [address] [place] [address] 00715 Monocytes (Bld) [#/Vol] 0.5 x(10)3/cumm Normal 0.2-0.8 [facility] Comment on above: Order Comment: nhc Performed By: #### C BCDIFF #### [facility] [address] [place] [address] 05383 Monocytes/100 WBC (Bld) 3.8 % Normal 3.3-11.6 [facility] Comment on above: Order Comment: nhc Performed By: #### C BCDIFF #### [facility] [address] [place] [address] 33575 Neutrophils (Bld) [#/Vol] 10.0 x(10)3/cumm High 1.3-7.4 [facility] Comment on above: Order Comment: nhc Performed By: #### C BCDIFF #### [facility] [address] [place] [address] 47345 Neutrophils/100 WBC (Bld) 83.7 % High 44.9-78.8 [facility] Comment on above: Order Comment: nhc Performed By: #### C BCDIFF #### [facility] [address] [place] [address] 19104 Platelet mean volume (Bld) [Entitic vol] 7.9 fL Normal 6.4-10.0 [facility] Comment on above: Order Comment: nhc Performed By: #### C BCDIFF #### [facility] [address] [place] [address] 23926 Platelets (Bld) [#/Vol] 177 x(10)3/cumm Normal 138-367 [facility] Comment on above: Order Comment: nhc Performed By: #### C BCDIANTIONETTE #### [facility] [address] [place] [address] 05491 Plt Morph normal Normal [facility] Comment on above: Order Comment: nhc Performed By: #### C BCDIFF #### [facility] [address] [place] [address] 30228 RBC (Bld) [#/Vol] 4.57 X(10)6/cumm Normal 3.90-5.10 [facility] Comment on above: Order Comment: nhc Performed By: #### C BCDIANTIONETTE #### [facility] [address] [place] [address] 90355 RBC Morph cont Normal [facility] Comment on above: Order Comment: nhc Performed By: #### C BCDIFF #### [facility] [address] [place] [address] 87375 RBC morphology finding Nom (Bld) mild aniso, mild hypo Normal [facility] Comment on above: Order Comment: nhc Performed By: #### C BCDIFF #### [facility] [address] [place] [address] 85266 WBC (Bld) [#/Vol] 12.0 x(10)3/cumm High 3.6-10.3 [facility] Comment on above: Order Comment: nhc Performed By: #### C BCDIFF #### [facility] [address] [place], [place] [phone] WBC Morph less than 10% bands Normal [facility] Comment on above: Order Comment: nhc Performed By: #### C BCDIFF #### [facility] [address] [place], [place] [phone] Comprehensive Metabolic Pane [facility] 12-19-2018 Albumin [Mass/Vol] 3.7 g/dL Normal 3.4-5.0 [facility] Comment on above: Order Comment: nhc Performed By: #### C ROSE, CRPR #### [facility] [address] [place], [place] [phone] ALP [Catalytic activity/Vol] 76 U/L Normal 45-117 [facility] Comment on above: Order Comment: nhc Performed By: #### C ROSE, CRPR #### [facility] [address] [place], [place] [id number] ALT [Catalytic activity/Vol] 49 U/L Normal 12-78 [facility] Comment on above: Order Comment: nhc Performed By: #### C ROSE, CRPR #### [facility] [address] [place], [place] [phone] Anion gap [Moles/Vol] 10 mmol/L Normal 5-10 [facility] Comment on above: Order Comment: nhc Performed By: #### C MP, CRPR #### [facility] [address] [place], [place] [phone] AST [Catalytic activity/Vol] 16 U/L Normal 15-37 [facility] Comment on above: Order Comment: nhc Performed By: #### C ROSE, CRPR #### [facility] [address] [place] [address] 31919 Bili, Total 0.6 mg/dL Normal 0.2-1.0 [facility] Comment on above: Order Comment: nhc Performed By: #### C ROSE, CRPR #### [facility] [address] [place] [address] 99180 Calcium [Mass/Vol] 9.2 mg/dL Normal 8.5-10.1 [facility] Comment on above: Order Comment: nhc Performed By: #### C ROSE, CRPR #### [facility] [address] [place], [place] [phone] Chloride [Moles/Vol] 105 mmol/L Normal 98-107 [facility] Comment on above: Order Comment: nhc Performed By: #### C ROSE, CRPR #### [facility] [address] [place], [place] [phone] CO2 [Moles/Vol] 25 mmol/L Normal 21-32 [facility] Comment on above: Order Comment: nhc Performed By: #### C ROSE, CRPR #### [facility] [address] [place] [address] 28627 Creatinine [Mass/Vol] 0.72 mg/dL Normal 0.60-1.30 [facility] Comment on above: Order Comment: nhc Performed By: #### C MP, CRPR #### [facility] [address] [place] [address] 10473 eGFR -Amer >60 Normal >=60 [facility] Comment on above: Order Comment: nhc Performed By: #### C MP, CRPR #### [facility] [address] [place] [address] 08115 GFR/1.73 sq M predicted among non-blacks MDRD (S/P/Bld) [Vol rate/Area] mL/min/{1.73_m2} Normal >=60 [facility] Comment on above: Order Comment: nhc Performed By: #### C MP, CRPR #### [facility] [address] [place] [address] 56614 Glucose [Mass/Vol] 137 mg/dL High 74-106 [facility] Comment on above: Order Comment: nhc Performed By: #### C MP, CRPR #### [facility] [address] [place] [address] 26966 Potassium [Moles/Vol] 4.2 mmol/L Normal 3.5-5.1 [facility] Comment on above: Order Comment: nhc Performed By: #### C MP, CRPR #### [facility] [address] [place] [address] 76675 Prot Total 6.3 gm/dL Low 6.4-8.2 [facility] Comment on above: Order Comment: nhc Performed By: #### C ROSE, CRPR #### [facility] [address] [place], [place] [phone] Sodium [Moles/Vol] 140 mmol/L Normal 136-145 [facility] Comment on above: Order Comment: nhc Performed By: #### C ROSE, CRPR #### [facility] [address] [place] [address] 18743 Urea nitrogen [Mass/Vol] 20 mg/dL High 7-18 [facility] Comment on above: Order Comment: nhc Performed By: #### C ROSE, CRPR #### [facility] [address] [place] [address] 90233 Sed Rate - [place] - Sed Rate 7 mm/hr Normal 0-20 [facility] Comment on above: Order Comment: nhc Performed By: #### E SR #### [facility] [address] [place] [address] 84186 Lab Report: Joxy-7-Rdcftokov Shady red 08-19-2016 B2 [id number] 1.6 mg/L Invalid Interpretation Code 0.6-2.4 [facility] Work Phone: Lab Report: Immunoglobulin A on 08-19-2016 IgA 95 mg/dL Invalid Interpretation Code [id number] [facility] Work Phone: [phone] Lab Report: Immunoglobulin G on 08-19-2016 IgG 692 mg/dL Low 700-1600 [facility] Work Phone: [phone] Lab Report: Immunoglobulin M on 08-19-2016 IgM 720 mg/dL High 26-217 [facility] Work Phone: [phone] Lab Report: Protein Electro. Ur-Randomon 08-19-2016 NOTE Comment Invalid Interpretation Code . [facility] Work Phone: [phone] Protein [Mass] in Urine collected for unspecified duration 13.1 mg/dL Invalid Interpretation Code Not Estab. [facility] Work Phone: [phone] Lab Report: Protein Electrop h, Son 08-19-2016 INTERPRETATION Comment Invalid Interpretation Code . [facility] Work Phone: [phone] M-SPIKE . Invalid Interpretation Code [facility] Work Phone: [phone] NOTE: Comment Invalid Interpretation Code . [facility] Work Phone: [phone] Albumin 3.6 g/dL Invalid Interpretation Code 2.9-4.4 [facility] Work Phone: [phone] Albumin/Globulin Ratio 1.1 (?) Invalid Interpretation Code 0.7-1.7 [facility] Work Phone: [phone] ALPHA-1 GLOBUL 0.3 g/dL Invalid Interpretation Code 0.0-0.4 [facility] Work Phone: [phone] ALPHA-2 GLOBUL 0.8 g/dL Invalid Interpretation Code 0.4-1.0 [facility] Work Phone: [phone] BETA GLOBULIN 1.0 g/dL Invalid Interpretation Code 0.7-1.3 [facility] Work Phone: [phone] GAMMA GLOBULIN 1.1 g/dL Invalid Interpretation Code 0.4-1.8 [facility] Work Phone: [phone] Globulin 3.2 g/dL Invalid Interpretation Code 2.2-3.9 [facility] Work Phone: [phone] Protein 6.8 g/dL Invalid Interpretation Code 6.0-8.5 [facility] Work Phone: [phone] Lab Report: Vitamin D,25 Hyd roxyon 08-18-2016 Vitamin D 25-OH 24.3 ng/mL Invalid Interpretation Code [facility] Work Phone: [phone] Lab Report: Comprehensive Nv tabolic Profilon 08-17-2016 Alanine aminotransferase (ALT) 22 U/L Invalid Interpretation Code 12-78 [facility] Work Phone: [phone] Albumin 3.9 g/dL Invalid Interpretation Code 3.4-5.0 [facility] Work Phone: [phone] Albumin/Globulin Ratio 1 {ratio} Invalid Interpretation Code 0.9-2.4 [facility] Work Phone: [phone] Alkaline phosphatase (ALP) 96 U/L Invalid Interpretation Code 45-117 [facility] Work Phone: [phone] Anion gap 10 mmol/L Invalid Interpretation Code 5-15 [facility] Work Phone: [phone] Aspartate aminotransferase (AST) 11 U/L Low 15-37 [facility] Work Phone: [phone] Bilirubin (total) 0.70 mg/dL Invalid Interpretation Code 0.20-1.00 [facility] Work Phone: [phone] BUN/Creatinine Ratio 15.1 RATIO Invalid Interpretation Code 10-20 [facility] Work Phone: [phone] Calcium 8.9 mg/dL Invalid Interpretation Code 8.5-10.1 [facility] Work Phone: [phone] Chloride 103 mmol/L Invalid Interpretation Code 98-107 [facility] Work Phone: [phone] CO2 26.0 mmol/L Invalid Interpretation Code 21.0-32.0 [facility] Work Phone: [phone] Creatinine 0.79 mg/dL Invalid Interpretation Code 0.55-1.02 [facility] Work Phone: [phone] eGFR (non-black) 93 mL/min/{1.73_m2} Invalid Interpretation Code >60 [facility] Work Phone: [phone] eGFR (non-black) 77 mL/min/{1.73_m2} Invalid Interpretation Code >60 [facility] Work Phone: [phone] Globulin 3.9 g/dL High 2.3-3.5 [facility] Work Phone: [phone] Glucose mass conc 106 mg/dL Invalid Interpretation Code 70-110 [facility] Work Phone: [phone] Potassium molar conc 3.6 mmol/L Invalid Interpretation Code 3.5-5.1 [facility] Work Phone: [phone] Protein 7.8 g/dL Invalid Interpretation Code 6.4-8.2 [facility] Work Phone: [phone] Sodium 139 mmol/L Invalid Interpretation Code 136-145 [facility] Work Phone: [phone] Urea nitrogen 12 mg/dL Invalid Interpretation Code 7-18 [facility] Work Phone: [phone] Lab Report: Thyroid Stim Hor jessica (TSH)on 08-17-2016 Thyroid stimulating hormone (TSH) 3.01 u[iU]/mL Invalid Interpretation Code 0.358-3.74 [facility] Work Phone: [phone] 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 * PHQ9 Completeon 08-17-2016 Adult depression screening assessment Adult depression screening assessment Invalid Interpretation Code [facility] Work Phone: [phone] Documentation of current medications (procedure) Done Invalid Interpretation Code [facility] Work Phone: [phone] Replaced Document: CBC W/Dif f, Auto - EPLAB Onlyon 08-17-2016 Absolute Neut 5.5 X10 3/UL Invalid Interpretation Code 2.0-7.7 [facility] Work Phone: [phone] Basophils/100 WBC Auto (Bld) 0.6 % Invalid Interpretation Code 0-1 [facility] Work Phone: [phone] Eosinophils/100 leukocytes 1.6 % Invalid Interpretation Code 0-5 [facility] Work Phone: [phone] Erythrocyte distribution width Auto Ratio (RBC) 13.3 % Invalid Interpretation Code 11.6-14.6 [facility] Work Phone: [phone] Erythrocytes (RBC) 4.88 10*6/uL Invalid Interpretation Code 4.2-5.4 [facility] Work Phone: [phone] Hematocrit (HCT) 43.6 % Invalid Interpretation Code 37-47 [facility] Work Phone: [phone] Hemoglobin mass conc (Bld) 14.1 g/dL Invalid Interpretation Code 12.0-15.0 [facility] Work Phone: [phone] Lymphocytes 2.36 X10 3/UL Invalid Interpretation Code 0.83-4.51 [facility] Work Phone: [phone] Lymphocytes/100 leukocytes 27.9 % Invalid Interpretation Code 19-41 [facility] Work Phone: [phone] MCH 28.8 pg Invalid Interpretation Code 27.0-32.0 [facility] Work Phone: [phone] MCHC mass conc (RBC) 32.3 g/dL Invalid Interpretation Code 32-36 [facility] Work Phone: [phone] MCV 89.3 fL Invalid Interpretation Code 81-99 [facility] Work Phone: [phone] Monocytes/100 leukocytes 5.4 % Invalid Interpretation Code 0-10 [facility] Work Phone: [phone] Neutrophils/100 WBC Auto (Bld) 64.5 % Invalid Interpretation Code 47-70 [facility] Work Phone: [phone] Platelets 207 10*3/mm3 Invalid Interpretation Code 150-450 [facility] Work Phone: [phone] PMV by Jillian 6.9 fL Invalid Interpretation Code 6.2-12.0 [facility] Work Phone: [phone] WBC (Leukocytes) 8.5 10*3/uL Invalid Interpretation Code 4.4-11.0 [facility] Work Phone: [phone] 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 Tobacco smoking status NHIS Never Invalid Interpretation Code [facility] Work Phone: [phone] Tobacco use CPHS Never smoker Invalid Interpretation Code [facility] Work Phone: [phone] Lab Report: VANESSA + Protein El ect, Serumon 11-20-2015 Albumin 3.6 g/dL Invalid Interpretation Code 3.2-5.6 [facility] Work Phone: [phone] Alpha 2 globulin 0.8 g/dL Invalid Interpretation Code 0.4-1.2 [facility] Work Phone: [phone] ZTOAL-8-XMPQ 0.3 g/dL Invalid Interpretation Code 0.1-0.4 [facility] Work Phone: [phone] BETA GLOBULIN 1.0 g/dL Invalid Interpretation Code 0.6-1.3 [facility] Work Phone: [phone] Gamma globulin 1300 mg/dL Invalid Interpretation Code Units converted. See lab report for original value. [facility] Work Phone: [phone] M-SPIKE . Invalid Interpretation Code [facility] Work Phone: [phone] Lab Report: [place] Lambda Lig ht Chainson 11-20-2015 FR KAPPA LT CHN 1.741 mg/dL Invalid Interpretation Code Units converted. See lab report for original value. [facility] Work Phone: [phone] FR LAMBDA LT CH 1.599 mg/dL Invalid Interpretation Code Units converted. See lab report for original value. [facility] Work Phone: [phone] KAPPA/LAMBDA % 1.09 Invalid Interpretation Code 0.26-1.65 [facility] Work Phone: [phone] Lab Report: Erythrocyte Sed Rateon 08-19-2015 Erythrocyte sedimentation rate 40 mm/h High 0-30 [facility] Work Phone: [phone] Lab Report: LDHon 08-19-2015 LDH 163 U/L Invalid Interpretation Code 84-246 [facility] Work Phone: [phone] Lab Report: Uric Acidon 07-29 Urate 3.7 mg/dL Invalid Interpretation Code 2.6-6.0 [facility] Work Phone: [phone] Replaced Document: (P) ANCAo n 05-30-2015 Neutrophils . 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 05-27-2015 General categories [Interpretation] of Cervical or vaginal smear or scraping by Cyto stain Normal Invalid Interpretation Code [facility] Work Phone: [phone] Breast Mammogram screening Normal Bilateral Invalid Interpretation Code [facility] Work Phone: [phone] Lab Report: ANTINUCLEAR ANTI BODIES DIRECTon 05-14-2015 CORINNE Titer Negative Invalid Interpretation Code Negative [facility] Work Phone: [phone] Lab Report: CBC W/Diff, Auto - EPLAB Onlyon 05-06-2015 Pathologist (cervix/vaginal) May foll Invalid Interpretation Code 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 Kanika Mike DO Work Phone: [facility] 01-09-2025 14:56-0400 Body mass index (BMI) [Ratio] 31.1 kg/m2 Dr. Kanika Mike DO Work Phone: [facility] 01-09-2025 14:56-0400 Body weight 74.[address] Kanika Mike DO Work Phone: [facility] 12-17-2024 14:50-0400 Body height 154.[address] Kanika Mike DO Work Phone: [facility] 12-17-2024 14:50-0400 Body mass index (BMI) [Ratio] 31.4 kg/m2 Dr. Kanika Mike DO Work Phone: [facility] 12-17-2024 14:50-0400 Body weight 75.[address] Kanika Mike DO Work Phone: [facility] 12-07-2024 13:23-0400 Body height 154.[address] Kanika Mike DO Work Phone: [facility] 12-07-2024 13:23-0400 Body mass index (BMI) [Ratio] 31.4 kg/m2 Dr. Kanika Mike DO Work Phone: [facility] 12-07-2024 13:23-0400 Body weight 75.[address] Kanika Mike DO Work Phone: [facility] 12-07-2024 13:23-0400 Diastolic blood pressure 56 mm[Hg] Dr. Kanika Mike DO Work Phone: [facility] 12-07-2024 13:23-0400 Heart rate 67 /min Dr. Kanika Mike DO Work Phone: [facility] 12-07-2024 13:23-0400 Respiratory rate 16 /min Dr. Kanika Mike DO Work Phone: [facility] 12-07-2024 13:23-0400 Systolic blood pressure 99 mm[Hg] Dr. Kanika Mike DO Work Phone: [facility] 07-31-2024 08:15-0500 Body temperature 97.1 [degF] Dr. Kanika Mike DO Work Phone: [facility] 07-31-2024 08:15-0500 Diastolic blood pressure 63 mm[Hg] Dr. Kanika Mike DO Work Phone: [facility] 07-31-2024 08:15-0500 Heart rate 68 /min Dr. Kanika Mike DO Work Phone: [facility] 07-31-2024 08:15-0500 Respiratory rate 16 /min Dr. Kanika Mike DO Work Phone: [facility] 07-31-2024 08:15-0500 SaO2% (BldA) [Mass fraction] 94 % Dr. Kanika Mike DO Work Phone: [facility] 07-31-2024 08:15-0500 Systolic blood pressure 112 mm[Hg] Dr. Kanika Mike DO Work Phone: [facility] 07-31-2024 06:27-0500 Body height 154.[address] Kanika Mike DO Work Phone: [facility] 07-31-2024 06:27-0500 Body mass index (BMI) [Ratio] 32.4 kg/m2 Dr. Kanika Mike DO Work Phone: [facility] 07-31-2024 06:27-0500 Body weight 77.[address] Kanika Mike DO Work Phone: [facility] 07-26-2024 13:35-0500 Body temperature 98.5 [degF] Dr. Kanika Mike DO Work Phone: [facility] 07-26-2024 13:35-0500 Diastolic blood pressure 53 mm[Hg] Dr. Kanika Mike DO Work Phone: [facility] 07-26-2024 13:35-0500 Heart rate 65 /min Dr. Kanika Mike DO Work Phone: [facility] 07-26-2024 13:35-0500 Respiratory rate 18 /min Dr. Kanika Mike DO Work Phone: [facility] 07-26-2024 13:35-0500 SaO2% (BldA) [Mass fraction] 94 % Dr. Kanika Mike DO Work Phone: [facility] 07-26-2024 13:35-0500 Systolic blood pressure 108 mm[Hg] Dr. Kanika Mike DO Work Phone: [facility] 07-26-2024 11:40-0500 Body mass index (BMI) [Ratio] 32.5 kg/m2 Dr. Kanika Mike DO Work Phone: [facility] 07-26-2024 11:40-0500 Body weight [address] Kanika Mike DO Work Phone: [facility] 05-28-2024 10:16-0500 Body weight 77.[address] Kanika Mike DO Work Phone: [facility] 05-28-2024 10:16-0500 Diastolic blood pressure 64 mm[Hg] Dr. Kanika Mike DO Work Phone: [facility] 05-28-2024 10:16-0500 Heart rate 65 /min Dr. Kanika Mike DO Work Phone: [facility] 05-28-2024 10:16-0500 Respiratory rate 18 /min Dr. Kanika Mike DO Work Phone: [facility] 05-28-2024 10:16-0500 SaO2% (BldA) [Mass fraction] 96 % Dr. Kanika Mike DO Work Phone: [facility] 05-28-2024 10:16-0500 Systolic blood pressure 98 mm[Hg] Dr. Kanika Mike DO Work Phone: [facility] 08-11-2022 23:27-0500 Diastolic blood pressure 81 mm[Hg] [facility] 08-11-2022 23:27-0500 Heart rate 101 /min [facility] 08-11-2022 23:27-0500 Respiratory rate 18 /min [facility] 08-11-2022 23:27-0500 SaO2% (BldA) [Mass fraction] 98 % [facility] 08-11-2022 23:27-0500 Systolic blood pressure 148 mm[Hg] [facility] 08-11-2022 18:56-0500 Body height 152.4 cm [facility] 08-11-2022 18:56-0500 Body mass index (BMI) [Ratio] 38.2 kg/m2 [facility] 08-11-2022 18:56-0500 Body temperature 97 [degF] [facility] 08-11-2022 18:56-0500 Body weight 88.9 kg [facility] 07-15-2022 14:21-0500 Body mass index (BMI) [Ratio] 38.2 kg/m2 [facility] 07-15-2022 14:21-0500 Body weight 88.9 kg [facility] 07-15-2022 14:21-0500 Diastolic blood pressure 75 mm[Hg] [facility] 07-15-2022 14:21-0500 Heart rate 62 /min [facility] 01-19-2023 14:21-0500 Respiratory rate 18 /min [facility] 07-15-2022 14:21-0500 SaO2% (BldA) [Mass fraction] 95 % [facility] 07-15-2022 14:21-0500 Systolic blood pressure 124 mm[Hg] [facility] 04-05-2022 15:00-0400 Body height 152.4 cm [facility] Work Phone: 04-05-2022 15:00-0400 Body mass index (BMI) [Ratio] 39.2 kg/m2 [facility] Work Phone: 04-05-2022 15:00-0400 Body weight 91.17 kg [facility] Work Phone: 04-05-2022 15:00-0400 Diastolic blood pressure 59 mm[Hg] [facility] Work Phone: 04-05-2022 15:00-0400 Heart rate 62 /min [facility] Work Phone: 04-05-2022 15:00-0400 Respiratory rate 16 /min [facility] Work Phone: 04-05-2022 15:00-0400 Systolic blood pressure 108 mm[Hg] [facility] Work Phone: 08-26-2021 04:34-0500 Heart rate 64 /min [facility] Work Phone: 08-26-2021 04:34-0500 Respiratory rate 18 /min [facility] Work Phone: 08-26-2021 04:34-0500 SaO2% (BldA) [Mass fraction] 97 % [facility] Work Phone: 08-26-2021 03:05-0500 Body height 152.4 cm [facility] Work Phone: 08-26-2021 03:05-0500 Body mass index (BMI) [Ratio] 39.1 kg/m2 [facility] Work Phone: 08-26-2021 03:05-0500 Body temperature 97.7 [degF] [facility] Work Phone: 08-26-2021 03:05-0500 Body weight 90.8 kg [facility] Work Phone: 08-26-2021 03:05-0500 Diastolic blood pressure 64 mm[Hg] [facility] Work Phone: 08-26-2021 03:05-0500 Systolic blood pressure 157 mm[Hg] [facility] Work Phone: 08-18-2021 14:37-0500 Body mass index (BMI) [Ratio] 38 kg/m2 [facility] Work Phone: 08-18-2021 14:37-0500 Body weight 88.45 kg [facility] Work Phone: 08-18-2021 14:37-0500 Diastolic blood pressure 67 mm[Hg] [facility] Work Phone: 08-18-2021 14:37-0500 Heart rate 66 /min [facility] Work Phone: 08-18-2021 14:37-0500 Respiratory rate 20 /min [facility] Work Phone: 08-18-2021 14:37-0500 Systolic blood pressure 107 mm[Hg] [facility] Work Phone: 08-16-2021 16:42-0500 Diastolic blood pressure 65 mm[Hg] [facility] Work Phone: 08-16-2021 16:42-0500 Heart rate 113 /min [facility] Work Phone: 08-16-2021 16:42-0500 Respiratory rate 22 /min [facility] Work Phone: 08-16-2021 16:42-0500 SaO2% (BldA) [Mass fraction] 92 % [facility] Work Phone: 08-16-2021 16:42-0500 Systolic blood pressure 96 mm[Hg] [facility] Work Phone: 08-16-2021 11:36-0500 Body mass index (BMI) [Ratio] 37.5 kg/m2 [facility] Work Phone: 08-16-2021 11:36-0500 Body temperature 96.9 [degF] [facility] Work Phone: 08-16-2021 11:36-0500 Body weight 87.3 kg [facility] Work Phone: 08-10-2021 11:48-0500 Body temperature 97.9 [degF] [facility] Work Phone: 08-10-2021 11:48-0500 Diastolic blood pressure 51 mm[Hg] [facility] Work Phone: 08-10-2021 11:48-0500 Heart rate 78 /min [facility] Work Phone: 08-10-2021 11:48-0500 Respiratory rate 16 /min [facility] Work Phone: 08-10-2021 11:48-0500 SaO2% (BldA) [Mass fraction] 98 % [facility] Work Phone: 08-10-2021 11:48-0500 Systolic blood pressure 105 mm[Hg] [facility] Work Phone: 08-09-2021 10:49-0500 Body weight 87.67 kg [facility] Work Phone: 08-08-2021 13:50-0500 Body mass index (BMI) [Ratio] 37.7 kg/m2 [facility] Work Phone: 08-02-2021 15:30-0500 Diastolic blood pressure 59 mm[Hg] [facility] Work Phone: 08-02-2021 15:30-0500 Heart rate 78 /min [facility] Work Phone: 08-02-2021 15:30-0500 Respiratory rate 18 /min [facility] Work Phone: 08-02-2021 15:30-0500 SaO2% (BldA) [Mass fraction] 96 % [facility] Work Phone: 08-02-2021 15:30-0500 Systolic blood pressure 139 mm[Hg] [facility] Work Phone: 08-02-2021 13:41-0500 Body mass index (BMI) [Ratio] 0.2 kg/m2 [facility] Work Phone: 08-02-2021 13:41-0500 Body temperature 97.2 [degF] [facility] Work Phone: 08-02-2021 13:41-0500 Body weight 87.54 kg [facility] Work Phone: 06-30-2021 05:07-0500 Diastolic blood pressure 73 mm[Hg] [facility] Work Phone: 06-30-2021 05:07-0500 Heart rate 86 /min [facility] Work Phone: 06-30-2021 05:07-0500 Respiratory rate 16 /min [facility] Work Phone: 06-30-2021 05:07-0500 SaO2% (BldA) [Mass fraction] 96 % [facility] Work Phone: 06-30-2021 05:07-0500 Systolic blood pressure 140 mm[Hg] [facility] Work Phone: 06-30-2021 00:54-0500 Body mass index (BMI) [Ratio] 36.2 kg/m2 [facility] Work Phone: 06-30-2021 00:54-0500 Body temperature 97.8 [degF] [facility] Work Phone: 06-30-2021 00:54-0500 Body weight 87.08 kg [facility] Work Phone: 08-17-2016 11:26-0500 BMI (Body Mass Index) 36.53 kg/m2 [facility] Work Phone: 08-17-2016 11:26-0500 Body Temperature 97.5 [degF] [facility] Work Phone: 08-17-2016 11:26-0500 BP Diastolic 75 mm[Hg] [facility] Work Phone: 08-17-2016 11:26-0500 BP Systolic 121 mm[Hg] [facility] Work Phone: 08-17-2016 11:26-0500 BSA (Body Surface Area) 1.94 m2 [facility] [...] 92.27 kg Lata SIFUENTES [facility] Work Phone: 05-06-2015 10:00-0500 Height 158.75 cm Lata SIFUENTES [facility] Work Phone: Encounters Encounter Date Encounter Type Care Provider Facility Start: 04-02-2025 End: 04-02-2025 ambulatory Kanika Mike Facility:[facility] Start: 03-05-2025 End: 03-05-[address] Kanika Mike DO Work Phone: -Radiology [facility] Start: 03-05-2025 End: 03-05-[address] Charlie Reed MD -Radiology [facility] Work Phone: Start: 03-05-2025 End: 03-05-2025 ambulatory Kanika Mike Facility:[facility] Start: 01-24-2025 End: 01-24-[address] Kanika Mike DO Work Phone: -Laboratory [facility] Start: 01-24-2025 End: 01-24-[address] Kanika Mike DO -Laboratory Specimen Work Phone: Start: 01-24-2025 End: 01-24-2025 ambulatory Kanika Mike Facility:[facility] Start: 01-09-2025 End: 01-09-[address] Juan Toney MD -[facility] Work Phone: Start: 01-09-2025 End: 01-09-[address] Kanika Mike DO Work Phone: -[facility] Start: 01-01-2025 End: 01-01-[address] Kanika Mike DO Work Phone: -[facility] Start: 01-01-2025 End: 01-01-2025 Patient encounter procedure Rylie XIAO -[facility] Work Phone: Start: 01-01-2025 End: 01-01-2025 ambulatory Kanika Keyla Facility:[facility] Start: 12-17-2024 End: 12-17-[address] Randy Call MD -[facility] Start: 12-17-2024 End: 12-17-[address] Kanika Mike DO Work Phone: [facility] Work Phone: Start: 12-07-2024 End: 12-07-[address] Wilton Davila MD -[facility] Work Phone: Start: 12-07-2024 End: 12-07-[address] Kanika Mike DO Work Phone: [facility] Work Phone: Start: 09-13-2024 End: 09-13-[address] Kanika Mike DO Work Phone: [facility] Work Phone: Start: 09-13-2024 End: 09-13-[address] Kanika Mike DO -[facility] Start: 09-13-2024 End: 09-13-2024 ambulatory Kanika Mike Facility:[facility] Start: 08-13-2024 End: 08-13-[address] Raj Walker DO -[facility] Work Phone: Start: 08-13-2024 End: 08-13-2024 ambulatory [facility] Start: 07-31-2024 ambulatory [facility]: [facility] Start: 07-31-2024 Non-patient / Non-visit Dr. Raj Walker DO [facility] Start: 07-31-2024 End: 07-31-2024 Admission to same day surgery center Dr. Raj Walker DO -[facility] Start: 07-31-2024 End: 07-31-2024 ambulatory [facility] Facility:[facility] Start: 07-26-2024 ambulatory [facility]: [facility] Start: 07-26-2024 End: 07-26-2024 Non-patient / Non-visit Denton Morgan DO -[facility] Start: 07-26-2024 End: 07-26-2024 Admission to same day surgery center Denton Morgan DO -Endoscopy Work Phone: Start: 07-26-2024 End: 07-26-2024 ambulatory [facility] Facility:[facility] Start: 07-04-2024 End: 07-04-[address] Raj Walker DO -[facility] Work Phone: Start: 07-04-2024 End: 07-04-2024 ambulatory [facility] Start: 05-28-2024 End: 05-28-2024 Patient encounter procedure Denton Morgan DO -Laboratory Work Phone: Start: 05-28-2024 End: 05-28-2024 Patient encounter procedure Layla KAMINSKI -[facility] Work Phone: Start: 05-28-2024 End: 05-28-2024 ambulatory [facility] Start: 05-28-2024 End: 05-28-2024 ambulatory [facility] Facility:[facility] Start: 05-09-2024 End: 05-09-2024 ambulatory [facility] Start: 04-24-2024 End: 04-24-[address] [facility] Facility:[facility] Start: 10-04-2023 End: 10-04-2023 ambulatory [facility] spital Work Phone: Start: 10-04-2023 End: 10-04-2023 Patient encounter procedure [facility]-Outpatient Bone Densitometry Work Phone: Start: 09-19-2023 End: 09-19-2023 ambulatory [facility] spital Work Phone: Start: 09-19-2023 End: 09-19-2023 Patient encounter procedure [facility]-Outpatient Breast Imaging Work Phone: Start: 09-06-2023 End: 09-06-2023 ambulatory [facility] spital Work Phone: Start: 09-06-2023 End: 09-06-2023 Patient encounter procedure [facility]ra[facility] Start: 08-11-2022 End: 08-11-2022 Emergency department patient visit [facility]-Emergency Department Start: 07-15-2022 End: 07-15-2022 Patient encounter procedure [facility] Start: 07-01-2022 End: 07-01-2022 ambulatory Kanika [facility] spital Work Phone: Start: 07-01-2022 End: 07-01-2022 Patient encounter procedure Kanika [facility]-Outpatient Breast Imaging Start: 05-11-2022 Non-patient / Non-visit Kanika [facility] Start: 05-11-2022 End: 05-11-2022 ambulatory Kanika [facility] spital Work Phone: Start: 05-11-2022 End: 05-11-2022 Patient encounter procedure [facility]-Cardiovascular Services Start: 04-19-2022 End: 04-19-2022 ambulatory Kanika [facility] sp[facility] Work Phone: Start: 04-19-2022 End: 04-19-2022 Patient encounter procedure Kanika [facility]-Laboratory, Specimen Start: 04-05-2022 End: 04-05-2022 Patient encounter procedure [facility] Start: 04-05-2022 End: 04-05-2022 ambulatory [facility] spital Work Phone: Start: 04-05-2022 End: 04-05-2022 Patient encounter procedure Kanika [facility]-Laboratory Start: 03-22-2022 End: 03-22-2022 ambulatory [facility] spital Work Phone: Start: 03-22-2022 End: 03-22-2022 Patient encounter procedure [facility]-Laboratory Start: 11-20-2021 End: 11-20-2021 Subsequent hospital visit by physician Layla Holm MD Work Phone: IF MARISOL WILLIS Comment on above: A-FIB Start: 09-28-2021 End: 09-28-2021 Emergency department patient visit CHARLIE MCDOWELL [facility] Start: 09-23-2021 End: 09-23-2021 Patient encounter procedure [facility]-Pulmonary Services/Neurology Start: 09-09-2021 End: 09-09-2021 Patient encounter procedure [facility]-Laboratory Start: 08-26-2021 End: 08-26-2021 Emergency department patient visit [facility]-Emergency Department Start: 08-18-2021 End: 08-18-2021 Patient encounter procedure [facility] Start: 08-16-2021 End: 08-16-2021 Emergency department patient visit [facility]-Emergency Department Start: 08-16-2021 Non-patient / Non-visit [facility] Start: 08-10-2021 [facility] Start: 08-10-2021 Non-patient / Non-visit [facility] Start: 08-09-2021 Non-patient / [facility]visit [facility] Start: 08-09-2021 Non-patient / Non-visit [facility] Start: 08-08-2021 End: 08-10-2021 Evaluation and management of inpatient [facility]-Progressive Care Unit Start: 08-05-2021 Non-patient / Non-visit [facility] Start: 08-02-2021 End: 08-02-2021 Emergency department patient visit [facility]-Emergency Department Start: 06-30-2021 End: 06-30-2021 Patient encounter procedure [facility]-Outpatient Breast Imaging Start: 06-30-2021 End: 06-30-2021 Emergency department patient visit [facility]-Emergency Department Start: 12-19-2018 End: 12-20-2018 Patient encounter procedure [facility] Procedures Date Procedure Procedure Detail Performing Clinician Start: 03-05-2025 Plain x-ray of pelvis and lower extremity Dr. Kanika Mike DO Work Phone: Start: 01-24-[address] Kanika Mike DO Work Phone: Start: 01-24-2025 Urnls dip stick/tablet reagent auto microscopy Dr. Kanika Mike DO Work Phone: Start: 01-01-2025 MRI of lumbar spine Dr. Kaniak Mike DO Work Phone: Start: 12-17-2024 X-ray [...] Gopi Hidalgoa DO Start: 08-17-2016 End: 08-19-2016 Ubqt-8-[id number] [Mass/volume] in Serum or Plasma Gopinatalee Hidalgoa [...] Clara Hidalgoa DO Start: 11-18-2015 End: 11-20-2015 Wgqg-8-Sdjkfhigobhkq [Mass/volume] in Serum or Plasma Gopi Clara Hidalgoa DO History of cholecystectomy S/P cholecyste ctomy Dr. Kanika Mike DO Work Phone: History of cholecystectomy S/P cholecyste ctomy [address]la [address] LIAISON-C SARS-CoV-2 & FLU Antigen (Rapid) Kanika Mike Plan of Treatment Date Care Activity Detail Author Start: 12-17-2024 X-ray of lumbosacral spine L/S Spine Min 4 Views [facility] Start: 12-17-2024 XR Spine Lumbar and Sacrum GE 4 Views [facility] Start: 12-07-2024 End: 12-07-2024 Evaluation of diagnostic study results [facility] Start: 07-31-2024 Anes nerve muscle tdn fascia&bursa forearm wrist ANESTH LOWER ARM SURGERY [facility] Start: 07-31-2024 Tendon sheath incision INCISE FINGER TENDON SHEATH [facility] Start: 07-31-2024 Application of ice collar, cap or bag [facility] Start: 07-31-2024 Elevation of affected extremity [facility] Start: 07-31-2024 Patient discharge [facility] Start: 07-31-[address] [facility] Start: 07-31-2024 Following clinical pathway protocol [facility] Start: 07-31-2024 Procedure discontinued [facility] Start: 07-31-2024 Taking patient vital signs [facility] Start: 07-31-2024 Vital signs measurements [facility] Start: 07-31-2024 [facility] Start: 07-31-2024 Medication education [facility] Start: 07-26-2024 Egd removal tumor polyp/other lesion snare tech EGD REMOVE LESION SNARE [facility] Start: 07-26-2024 Egd transoral biopsy single/multiple EGD BIOPSY SINGLE/MULTIPLE [facility] Start: 07-26-2024 Ercp remove calculi/debris biliary/pancreas duct ERCP REMOVE DUCT CALCULI [facility] Start: 07-26-2024 Ercp remove foreign body/stent biliary/panc duct ERCP REMOVE FORGN BODY DUCT [facility] Start: 07-26-2024 Ercp w/sphincterotomy/papill otomy ENDO CHOLANGIOPANCREATOGRAPH [facility] Start: 07-26-2024 Patient discharge [facility] Start: 08-11-2022 [facility] Start: 02-25-2022 Influenza vaccination [facility]UENZA ([facility] Ended) [facility] Start: 02-23-2022 DIABETES SCREEN DIABETES SCREEN [facility] Start: 06-27-2021 ADVANCE DIRECTIVE DISCUSSION ADVANCE DIRECTIVE DISCUSSION [facility] Start: 05-26-2017 End: 05-26-2017 Appointment Appointment [facility] Work Phone: Start: 08-17-2016 End: 02-17-2016 *CBC with Differential *CBC with Differential [facility] Work Phone: Start: 08-17-2016 End: 08-17-2016 *CMP Complete Metabolic Panel *CMP Complete Metabolic Panel [facility] Work Phone: Start: 08-17-2016 End: 08-19-2016 *SPEP (Serum Protein Electrophoresis) *SPEP (Serum Protein Electrophoresis) [facility] Medicine and Orthopaedics Work Phone: Start: 08-17-2016 End: 08-19-2016 *UPEP *UPEP [facility] Work Phone: Start: 08-17-2016 End: 08-19-2016 Kqgi-2-Nogmdnzeqtxfh *B2MIC - Beta-2 Microglobulin [facility] Work Phone: Start: 08-17-2016 End: 08-19-2016 IgA *MOHIT Immunoglobulin A (IgA) [facility] Work Phone: Start: 08-17-2016 End: 08-19-2016 IgG *IMG Immunoglobulin G (IgG) [facility] Work Phone: Start: 08-17-2016 End: 08-19-2016 IgM *IMM Immunoglobulin (IgM) [facility] Work Phone: Start: 02-17-2016 End: 11-20-2015 *CBC with Differential *CBC with Differential [facility] Work Phone: Start: 02-17-2016 End: 11-20-2015 *CMP Complete Metabolic Panel *CMP Complete Metabolic Panel [facility] Work Phone: Start: 02-17-2016 End: 11-20-2015 *SPEP (Serum Protein Electrophoresis) *SPEP (Serum Protein Electrophoresis) [facility] Work Phone: Start: 02-17-2016 End: 11-20-2015 *UPEP *UPEP [facility] Work Phone: Start: 02-17-2016 End: 11-20-2015 Onfi-3-Kmfawkiqphbfs *B2MIC - Beta-2 Microglobulin [facility] Work Phone: Start: 11-18-2015 End: 08-20-2015 *CBC with Differential *CBC with Differential [facility] Work Phone: Start: 11-18-2015 End: 11-18-2015 *CMP Complete Metabolic Panel *CMP Complete Metabolic Panel [facility] Work Phone: Start: 11-18-2015 End: 08-20-2015 *MISC - Miscellaneous Lab Test #1 *MISC - Miscellaneous Lab Test #1 [facility] Work Phone: Start: 11-18-2015 End: 08-20-2015 *SPEP (Serum Protein Electrophoresis) *SPEP (Serum Protein Electrophoresis) [facility] Work Phone: Start: 11-18-2015 End: 11-20-2015 Aoab-3-Bmxnpfnzvsufj *B2MIC - Beta-2 Microglobulin [facility] Work Phone: Start: 11-18-2015 End: 11-20-2015 Rheumatology Referral [facility], [address] [place], [place] [address], [place], [address] [facility] Work Phone: Start: 08-19-2015 End: 05-20-2015 *CBC with Differential *CBC with Differential [facility] Work Phone: Start: 08-19-2015 End: 05-20-2015 *CMP Complete Metabolic Panel *CMP Complete Metabolic Panel [facility] Work Phone: Start: 08-19-2015 End: 05-20-2015 *SPEP (Serum Protein Electrophoresis) *SPEP (Serum Protein Electrophoresis) [facility] Work Phone: Start: 08-19-2015 End: 05-20-2015 Erythrocyte sedimentation rate *Sedimentation Rate (ESR) [facility] Work Phone: Start: 08-19-2015 End: 05-20-2015 Lactate dehydrogenase (LDH) *LDH -LDH (Lactate Dehydrogenase) [facility] Medicine [facility] Work Phone: Start: 08-19-2015 End: 05-20-2015 Urate *Uric Acid Blood [facility] Work Phone: Start: 2015 BONE DENSITY BONE DENSITY [facility] Start: 2015 zzPNEUMOVAX AGE 65 AND OVER WITH 5YR LOOKBACK (Retired) (#1) zzPNEUMOVAX AGE 65 AND OVER WITH 5YR LOOKBACK (Retired) (#1) [facility] Start: 06-17-2014 End: 06-17-2014 EMG EMG [facility] Work Phone: Start: 06-17-2014 End: 06-17-2014 Nerve Conduction Nerve Conduction [facility] Work Phone: Start: 03-12-2014 End: 03-12-2014 EMG EMG [facility] Work Phone: Start: 03-12-2014 End: 03-12-2014 Nerve Conduction Nerve Conduction [facility] Work Phone: Start: 03-12-2014 End: 03-12-2014 Radex hand minimum 3 views X-Ray, Hand [facility] Work Phone: Start: 2000 SHINGRIX VACCINE (1 of 2) SHINGRIX VACCINE (1 of 2) [facility] Start: 1995 COLOGUARD (FIT-DNA) COLOGUARD (FIT-DNA) [facility] Start: 1995 Colonoscopy COLONOSCOPY [facility] Start: 1995 COLORECTAL CANCER SCREENING COLORECTAL CANCER SCREENING [facility] Start: [address] COLONOGRAPHY [facility] Start: 1995 FECAL OCCULT BLOOD FECAL OCCULT BLOOD [facility] Start: 1995 LIPID SCREEN LIPID SCREEN [facility] Start: 1995 SIGMOIDOSCOPY SIGMOIDOSCOPY [facility] Start: 1990 Mammography MAMMOGRAM [facility] Start: 1969 Urine microalbumin profile DTAP,TDAP,TD (1 - Tdap) [facility] Start: 1962 Adult depression screening assessment DEPRESSION SCREENING [facility] Start: 1955 COVID-19 VACCINE (#1) COVID-19 VACCINE (#1) [facility] NM Heart Views W str ess and W radionuclide IV [facility] Work Phone: Patient Education [facility] Work Phone: Patient referral [facility] Work Phone: Immunizations Immunization Date Immunization Notes Care Provider Fa cili 04-16-2024 influenza, high dose seasonal, preservative-free Dr. Kanika Mike DO Work Phone: [facility] 02-25-2021 Influenza virus vaccine [facility] 03-26-2020 tetanus toxoid, redu shannan diphtheria toxoid, and acellular pertussis vaccine, adsorbed Kanika [facility] 04-10-2018 Influenza virus vaccine [facility] Payers Date Payer Category Payer Self-pay [id number] 2018 Medicare MMO MEDICARE MMO MEDADVANTAGE PPO [id number] 2018-Present [phone] [address] [place] [address] PPO [id number] 1959 Unknown [id number] 1950 Unknown [id number] [id number] 8 1950 Unknown [id number] 2.16.840.1.540258.3.579.2.90 2 Unknown [id number] 2.16.840.1.185837.3.579.2.46 2 Unknown [id number] 2.16.840.1.978784.3.579.2.46 2 Unknown [id number] 2.16.840.1.569606.3.579.2.46 2 Unknown [id number] 2.16.840.1.292475.3.579.2.46 2 Unknown [id number] 2.16.840.1.076929.3.579.2.46 2 Unknown [id number] 2.16.840.1.652807.3.579.2.46 2 Unknown [id number] 2.16.840.1.059866.3.579.2.46 2 Unknown [id number] 2.16.840.1.160995.3.579.2.46 2 Unknown [id number] 2.16.840.1.179557.3.579.2.46 2 Unknown [id number] 2.16.840.1.958429.3.579.2.46 2 Unknown [id number] 2.16.840.1.199541.3.579.2.46 2 Unknown [id number] 2.16.840.1.263905.3.579.2.46 2 Unknown [id number] 2.16.840.1.561371.3.579.2.46 2 Unknown [id number] 2.16.840.1.500286.3.579.2.46 2 Unknown [id number] 2.16.840.1.948180.3.579.2.46 2 Unknown [id number] 2.16.840.1.056226.3.579.2.46 2 Unknown [id number] 2.16.840.1.651855.3.579.2.46 2 Unknown [id number] 2.16.840.1.730549.3.579.2.46 2 Unknown [id number] 2.16.840.1.041274.3.579.2.46 2 Unknown [id number] 2.16.840.1.322001.3.579.2.46 2 Unknown [id number] 2.16.840.1.078322.3.579.2.46 2 Social History Date Type Detail Facility Start: 08-26-2021 End: 10-10-2023 Tobacco smoking status NHIS Unknown if ever smoked [facility] Start: 08-10-2018 None [facility] Start: 03-26-2020 With Family [facility] Start: 11-23-2018 Non-smoker [facility] Start: 1950 Sex Assigned At Female [facility] Start: 07-19-2024 Tobacco smoking status NHIS Never smoked tobacco [facility] Start: 08-28-2020 Alcohol intake Current non-dr suede brusher of alcohol (finding) [facility] Start: 1950 Sex Assigned At Not on file [facility] Start: 09-20-2024 Sex Female (finding) [facility] Sex Female [facility] NEGATED: Highlighted row Not [facility] Medical Equipment Procedure Code Equipment Code Equipment Original Text Equipment Identifier Dates Total cholecystectomy with exploration of common bile duct CLIP,HEMJOSHUA RIVERO FDA Start: 04-24-2024 Total cholecystectomy with exploration of common bile duct CLIP,HEMJOSHUA RIVERO FDA Start: 04-24-2024 Total cholecystectomy with exploration of common bile duct CLIP,HEMJOSHUA [employer] JOSEFA FDA Start: 04-24-2024 Total cholecystectomy with exploration of common bile duct CLIP,HEMJOSHUA [employer] JOSEFA FDA Start: 04-24-2024 Total cholecystectomy with [...] Start: 04-24-2024 ERCP (endoscopic retrograde cholangiopancreatograph y) ([id number]) Polymeric biliary stent, non-bioabsorbable ([id number] FDA Start: 04-16-2024 Goals Date Patient Goal Desired Activity /State Functional Status Date Assessment Result Facility 08-10-2021 Functional status Ambulates;Up ad addison [facility] Work Phone: 08-10-2021 Functional status None [facility] Work Phone: Mental Status Date Assessment Result Facility 07-31-2024 Cognitive function Voice/Name [facility] Work Phone: 07-26-2024 Cognitive function Voice/Name [facility] Work Phone: 08-11-2022 Cognitive function Level Of Cons ciousness Awake;Alert;Appropriate;Follow s Commands [facility] Work Phone: 08-26-2021 Cognitive function Level Of Cons ciousness Awake;Alert;Appropriate;Follow s Commands [facility] Work Phone: 08-16-2021 Cognitive function Level Of Cons ciousness Awake;Alert;Appropriate;Follow s Commands [facility] Work Phone: 08-10-2021 Cognitive function Voice/Name [facility] Work Phone: 08-02-2021 Cognitive function Level Of Cons ciousness Awake;Alert;Appropriate;Follow s Commands [facility] Work Phone: 06-30-2021 Cognitive function Level Of Cons ciousness Awake;Alert;Appropriate;Follow s Commands [facility] Work Phone: Clinical Notes 08-28-2020 to 03-05-2025 Note Date & Type Note Facility 03-05-2025 Radiology Diagnostic study note [facility] [address] [place], [place] [id number] HIP, UNI W/ Pelvis 2-3 Views MR#: [id number] Acct: [id number] Name: CHELSEY BELTRAN Rep #: [id number] : 1950 F 74 From: Niraj Arellano MD PCP: Dr. Kanika Mike, DO Status: REG CLI Study:HIP, UNI W/ Pelvis 2-3 Views Date of Ex am: 03/05/25 Exam# [id number] Ordering Dr: Charlie Reed MD PROCEDURE: HIP, UNI W/ PELVIS 2-3 VIEWS 03/05/2025 REASON FOR EXAM: HIP PAIN TECHNIQUE: Procedure Code: RADHP Modality: DX Procedure: HIP, UNI W/ PELVIS 2-3 VIEWS Laterality: COMPARISON: 09/29/2020. FINDINGS: No evidence of acute fracture or dislocation. Severe right and mild left hip osteoarthrosis. Degenerative changes of the partially visualized spine. RAD/HIP, UNI W/ Pelvis 2-3 Views IMPRESSION: Igatd-vjoeiib-ghjh-left hip osteoarthrosis. Reading Location: [id number] CC: Dr. Kanika Mike DO; Dr. Charlie Reed MD ~ Care Associate: Signed [facility] 12-07-2024 Evaluation note Diagnosis Onset Date Resolution Atherosclerotic heart disease of [place] coronary artery without angina pectoris chronic December 07, 2024 1:13pm Essential hypertension chronic Ju ne 2024 1:13pm HLD (hyperlipidemia) chronic December 07, 2024 1:13pm Paroxysmal atrial fibrillation chronic December 07, 2024 1:13pm [facility] Work Phone: 1(755) 286-521006-13-2025 Evaluation note* Diagnosis Onset Date Resolution Status Admit Date Atherosclerotic heart diseas e of [place] coronary artery without angina pectoris chronic December 07, 2024 1:13pm Essential hypertension chronic [facility] 2024 1:13pm HLD (hyperlipidemia) chronic December 07, 2024 1:13pm Paroxysmal atrial fibrillation chron ic December 07, 2024 1:13pm 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 acute December 17, 2024 2:33pm Lumbar stenosis with neuroge philippe claudication acute December 17, 2024 2:33pm Spondylolisthesis of lumbar region a cute December 17, 2024 2:33pm [facility] Work Phone: 1(512) 569-839506-13-2025 Evaluation note* Diagnosis Onset Date Resolution Status Admit Date Atherosclerotic heart diseas e of [place] coronary artery without angina pectoris chronic December [...] region a cute January 09, 2025 2:56pm [employer] [facility] Work Phone: 1(746) 955-523502-17-2025 Evaluation note* Diagnosis Onset Date Resolution Status Admit Date Orthopedic aftercare acute Febr ua2024 12:45pm [facility] Work Phone: 1(392) 344-661802-04-2025 [facility] Medical Records Department [address] [place] [address] History Physical Exam 07/31/24 0703 MR#: [id number] Acct: [id number] Name: ABDIRIZAKCHELSEY ARNOLD Rep #: [id number] : 1950 74 From: Raj Walker DO PCP: Dr. Kanika Mike DO Status:[facility] Location: [place] [address] History and Physical Date of Admission: 07/31/24 [facility] [address] [place] [address] [place] [address] OFFICE VISIT Date of Service: 07/04/24 MR#: [id number] Acct: [id number] Name: ABDIRIZAKBARAJASJOSE ROBERTO Gaspar Rep #: [id number] : 1950 Provider: Dr. Raj Walker DO Age/Sex: 73/F [place] [facility] [place]: Signed Intake Vital Signs 04/24/2412:20 Height [...] artery disease) COVID-19 ( 06/2021) History of VT (myocardial infarction) History of coronary artery disease Essential hypertension Monoclonal gammopathy of unknown significance (MGUS) Monoclonal gammopathy Temporal arteritis Osteoarthritis of left shoulder Asthma HLD (hyperlipidemia) HTN (hypertension) Atherosclerotic heart disease of [place] coronary artery without angina pectoris Acute ST [...] visit was documented by (more content not included)...[facility]01-30-2025 [facility] Medical Records Department [address] [place] [address] History Physical Exam 07/26/24 1216 MR#: [id number] Acct: [id number] Name: OCTAVIOCHELSEY THOMSON Hubert Rep #: [id number] : 1950 74 From: Denton Friend DO PCP: Dr. Kanika Mike, DO Status:[facility] [place] Location: [place] [address] HPI - General General Date of Admission: [...] (hyperlipidemia) HTN (hypertension) Atherosclerotic heart disease of ham[place] coronary artery without angina pectoris Acute ST [...] of delivery Stented coronary (more content not included)...[facility] 05-28-2024 Evaluation note* Diagnosis Onset Date [...] Orthopedic aftercare acute Febr uary 2024 12:45pm [facility] Work Phone: 1(849) 977-295510-29-2024 [facility] Medical Records Department [address] [place] [address] History Physical Exam 04/24/24 1211 MR#: [id number] Acct: [id number] Name: CHELSEY BELTRAN Rep #: [id number] : 1950 73 From: Opal Whitehead MD PCP: Dr. Kanika Mike, DO Status:[facility] Location: [place] [address] History and Physical Date of Admission: 04/24/24 04/17/24 1237 MR#: [id number] Acct: [id number] Name: CHELSEY BELTRAN : 1950 ADDENDUM by [...] open procedure. All questions were answered. Opal Whiteheda M.D. Pager: [phone] [facility] [address] [place], [place] [address], [address] [place] [address] Office: [phone] 04/17/24 8139 Signed Assessment Plan Assessment/Plan (1) Elevated liver [...] history of abdominal pain. Patient notes having estonian food, grilled chicken and vegetables, on . [...] blood thinner is aspirin. She states her engagement liaison is Dr. Davila. She notes recently having [...] removal was complete with one stent placed. [facility] Medical History COVID-19 ( 06/2021) History of VT (myocardial inf (more content not included)...[facility]02-15-[address] Infante [facility] August 11, 2022 10:20pm Note Date/Time August 11, 2022 10:03pm [facility] Medical Records Department [address] [place] [address] Emergency Department Summary 08/11/22 MR#: [id number] Acct: [id number] Name: CHELSEY BELTRAN Rep #:[id number] : 1950 72 From: Mikhail Infante MD [...] appetite is down. She is drinking fluids. [facility] Medical History Acute ST elevation myocardial infarction Arthritis Asthma Atherosclerotic heart disease of [place] coronary artery without angina pectoris COVID-19 (~06/2021) Essential hypertension GERD (gastroesophageal reflux disease) GERD (gastroesophageal reflux disease) History of coronary artery disease History of VT (myocardial infarction) HLD (hyperlipidemia) HTN (hypertension) Hypothyroidism [...] % (Auto) 61.0 Lymph % (Auto) 23.7 [place] % (Auto) 13.2 H Eos % (Auto) [...] your Primary Care Provider. Call [facility] ([phone]) or report to the closest Emergency Room. Call 911 if necessary. 08/11/222219 <Electronically signed by Mikhail Infante MD> Cosigner Signature (if applicable): CC: Kanika Mike ~ Signed [facility] Work Phone: 1(855) 727-221303-04-2021 NoteHNO ID: [id number] Author: Brisa Yanez Service: ? Author Type: [...] external genitalia normal, normal Bartholin's glands, urethra, Blackgum's glands, no vulvar lesions, no cervical lesions, [...] as needed. Brisa Gibbs (more content not included)...[facility] Diagnosis Onset Date Resolution Status Atrial fibrillation with rapid ventricular response resolved CHAMBERS (dyspnea on exertion) ac corinne Paroxysmal atrial fibrillation with RVR acute [facility] Work Phone: Evaluation noteNo assessment information available [facility] Work Phone: Evaluation note* Diagnosis Onset Date Resolution Status Atherosclerotic heart diseas e of [place] coronary artery without angina pectoris acute Essential hypertension chron ic HLD (hyperlipidemia) chronic Paroxysmal atrial fibrillation chronic [facility] Work Phone: Evaluation note* Diagnosis Onset Date Resolution Status Atherosclerotic heart diseas e of [place] coronary artery without angina pectoris chronic Essential hypertension chron ic HLD (hyperlipidemia) chronic Paroxysmal atrial fibrillation chronic [facility] Work Phone: [facility] Work Phone: Reason for referral (narrative)No reason for referral information available[facility] Work Phone: Summary Purpose Family History No Family History Records Found Relationship Condition Age at Onset Recorded Date/T tank mother Malignant neoplasm Unknown Anemia Unknown father Malignant neoplasm Unknown Cardiac disease Unknown Advance Directives No Advanced Directives Records Found Advance Directive Response Recorded Date/ Time Name of Medical Power of Business And Marketing Teacher June 30, 2021 4:47am Name of Medical Power of Business And Marketing Teacher FRANCIS REVELES ER August 02, 2021 3:44pm Name of Medical Power of Business And Marketing Teacher Karthik, August 08, 2021 4:03pm Name of Medical Power of Business And Marketing Teacher DEISI bang August 16, 2021 2:29pm Advance Directives Yes December 29 12:10pm Living Will Yes August 26, 2021 5:08am Power of Business And Marketing Teacher Yes August 26 5:08am Advance Directive Response Recorded Date/ Time Advance Directives Yes December 29 12:10pm Living Will Yes August 26, 2021 5:08am Power of Business And Marketing Teacher Yes August 26 5:08am Advance Directive Response Recorded Date/ Time Advance Directives Yes December 29 11:10am Living Will Yes August 26, 2021 4:08am Power of Business And Marketing Teacher Yes August 26 4:08am Advance Directive Response Recorded Date/ Time Name of Medical Power of Business And Marketing Teacher FRANCIS REVELES [place] August 11, 2022 9:33pm Advance Directives Yes December 29 11:10am Living Will Yes August 11, 2 023 9:33pm Power of Business And Marketing Teacher Yes August 11, 2022 9:33pm Advance Directive Response Recorded Date/ Time Advance Directives Yes December 29 12:10pm Living Will Yes August 11, 2 023 10:33pm Power of Business And Marketing Teacher Yes August 11, 2022 10:33pm Advance Directive Response Recorded Date/ Time Advance Directives Yes October 09, 2 024 2:22pm Living Will Yes October 10, 2023 2:22pm Power of Business And Marketing Teacher Yes October 09 2:22pm Advance Directive Response Recorded Date/ Time Living Will Yes April 15 10:01pm Do you have a Healthcare Power of Business And Marketing Teacher? Yes April 15, 2024 10:01pm Living Will Yes July 19 4:03pm Do you have a Healthcare Power of Business And Marketing Teacher? Yes July 19, 2024 4:03pm Name of Medical Power of Business And Marketing Teacher SON July 19, 2024 4:03pm Living Will Yes July 19 3:49pm Do you have a Healthcare Power of Business And Marketing Teacher? Yes July 19, 2024 3:49pm Name of Medical Power of Business And Marketing Teacher SON July 19, 2024 3:49pm Advance Directives [...] for Visit Atherosclerotic hear t disease of [place] coronary artery without angina pectoris Essential hypertension HLD (hyperlipidemia) Paroxysmal atrial fibrillation Chief Complaint INT LABS 6 M FU EVALUATE ANGINAL EQUIVALENT FOR SOB & FATIGUE EVALUATE ANGINAL EQUIVALENT FOR SOB & FATIGUE Reason for Visit Atherosclerotic hear t disease of [place] coronary artery without angina pectoris Essential hypertension HLD (hyperlipidemia) Paroxysmal atrial fibrillation Chief Complaint INT LABS 6 M FU EVALUATE ANGINAL EQUIVALENT FOR SOB & FATIGUE EVALUATE ANGINAL EQUIVALENT FOR SOB & FATIGUE SCREENING Reason for Visit Atherosclerotic hear t disease of [place] coronary artery without angina pectoris Essential hypertension HLD (hyperlipidemia) Paroxysmal atrial fibrillation Chief Complaint EVALUATE ANGINAL EQU IVALENT FOR SOB & FATIGUE EVALUATE ANGINAL EQUIVALENT FOR SOB & FATIGUE SCREENING 3 M FU general illness Reason for Visit Atherosclerotic hear t disease of [place] coronary artery without angina pectoris Essential hypertension HLD (hyperlipidemia) Paroxysmal atrial fibrillation Chief Complaint SCREENING Chief Complaint SCREENING Age-related osteoporosis without current pathologi Chief Complaint Admit Date Hospital FU May 28, 2024 9 :39am NO ORDER YET FROM May 11:25am RIGHT HAND July 04, 2024 11 :24am PREOP July 26, 2024 1 1:39am Right middle finger A1 puller Release Fe [place] 2024 5:42am Right middle finger A1 puller Release Fe [place] 2024 7:03am right hand August 13, 2024 [...] Admit Date Atherosclerotic heart diseas e of [place] coronary artery without angina pectoris December 07, [...] Admit Date Atherosclerotic heart diseas e of [place] coronary artery without angina pectoris December 07, [...] Admit Date Atherosclerotic heart diseas e of [place] coronary artery without angina pectoris December 07, [...] section and content) DATE CREATED AUTHOR 12/21/2018 [facility] DATE CREATED AUTHOR AUTHOR'S ORGANIZ ATION 08/06/2021 [facility] DATE CREATED AUTHOR AUTHOR'S ORGANIZ ATION 10/06/2021 [facility] DATE CREATED AUTHOR AUTHOR'S ORGANIZ ATION 11/26/2021 [facility] [place] DATE CREATED AUTHOR AUTHOR'S ORGANIZ ATION 04/21/2025 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 Kanika Mike DO Family Provider Active Kanika Mike Primary Care Provider Active Team Status: Inactive Member Role Status Dates Kanika Mike Primary Care Provider, Referring Provide r Active Artur Kingston COURT LIAISON, COURT LIAISON-C Attending Provider Active Team Status: Active Member Role Status Dates Kanika Mike Primary Care Provider Active Artur Kingston COURT LIAISON, COURT LIAISON-C Other Provider Active Dr. Feliciano Sauceda MD Attending Provider Active Team Status: Inactive Member Role Status Dates Kanika Mike Primary Care Provider Active Artur Kingston COURT LIAISON, COURT LIAISON-C Attending Provider Active Team Status: Inactive Member [...] BE BASED ON THE PRIMARY CLINICAL RECORDS. [employer] provides no warranty or guarantee of the accuracy or completeness of information in this document.
[2025-06-23] MEDS: Nitroglycerin SL (ED/IMG/CATH) 0.4 MG TABLET SL (19:50)
[2025-06-23 19:54] LABS: Hematocrit 35.4 % (37-47); Hemoglobin 11.1 g/dL (12.0-15.0); Immature Granulocytes Count 0.050 X10^3/uL (0.0-0.0); Mean Corp Hgb Conc 31.4 g/dL (32-36); Mean Corpuscular Volume 85.5 fL (81-99); Mean Platelet Vol. 11.5 fl (6.2-12.0); NRBC Flagged by Analyzer 0 % (0-5); Platelet Count 197 K/mm3 (150-450); RBC Distribution Width CV 14.4 % (11.6-14.6); RBC Distribution Width SD 44.5 fl (35.1-43.9); Red Blood Count 4.14 M/mm3 (4.2-5.4); White Blood Count 8.1 K/mm3 (4.4-11.0)
[2025-06-23 20:38] LABS: Anion Gap 11 (7-18); BUN 15 mg/dL (4-19); BUN/Creat Ratio 19.6 RATIO (10-20); Calcium,Total 8.7 mg/dL (7.6-11.0); Carbon Dioxide 24.9 mmol/L (20.0-29.0); Chloride 102 mmol/L (96-106); Estimated Creatinine Clearance 59.06 ml/min (50-250); Glucose 116 mg/dL (70-99); Potassium 3.4 mmol/L (3.5-5.1); Troponin T High Sensitivity < 6 ng/L (<=14)
[2025-06-23 21:58] LABS: Troponin T High Sens 2 HR 7 ng/L (<=14)
== END 2025-06-23 22:36 | disposition home or self-care (01) ==
PROVIDERS: Emergency Provider Emergency Medicine; PCP Family Medicine; Visit Provider Emergency Medicine
DX: R07.9 Chest pain, unspecified (principal); R00.2 Palpitations; R06.02 Shortness of breath; I10 Essential (primary) hypertension; I25.10 Atherosclerotic heart disease of native coronary artery without angina pectoris; E78.00 Pure hypercholesterolemia, unspecified; K21.9 Gastro-esophageal reflux disease without esophagitis
CPT/HCPCS: 71045; 80048; 84484; 85025; 93005; 99285; A4216